=== PATIENT | female | born 1955 | race Caucasian/White ===

== ENCOUNTER 2017-11-23 15:15 | Emergency (ER) | payer SELFPAY ==
[2017-03-16 08:30] VITALS: BMI 29.2
[2017-11-23 15:16] VITALS: BP 139/83; PULSE 82; RESP 20; TEMP 37.1; O2SAT 97; BMI 25.2
--- NOTE | 2017-11-23 15:33 | EKG12_ITS ---
Test Reason : REPEAT EKG Blood Pressure : / mmHG Vent. Rate : 080 BPM Atrial Rate : 080 BPM P-R Int : 156 ms QRS Dur : 084 ms QT Int : 436 ms P-R-T Axes : 040 015 019 degrees QTc Int : 502 ms Sinus rhythm with Premature atrial complexes Prolonged QT Abnormal ECG Confirmed by HENRY BARFIELD, DAYANA ([id number]), general expeditor ARON HASKINS ([id number]) on 11/25/2017 10:29:13 AM Referred By: RUBÉN Confirmed By:DAYANA FIGUEROA MD
--- NOTE | 2017-11-23 15:33 | RAD_ITS ---
STUDY: X-RAY CHEST REASON FOR EXAM: Female, 62 years old. CHEST PAIN TECHNIQUE: Single frontal view of the chest. COMPARISON: None. FINDINGS: Chronic appearing increased interstitial lung markings. There is no demonstrated pleural abnormality. Normal heart size. Normal mediastinum and jovan. Normal visualized pulmonary arteries. There is atherosclerotic calcification of the aortic arch with tortuosity. There are diffuse degenerative changes of the visualized thoracic spine. There is degenerative osteoarthritis of the bilateral shoulders. There is no demonstrated abnormality of the visualized soft tissue structures of the upper abdomen. RAD/Chest 1 View (Portable) IMPRESSION: There are no acute findings. Electronically Signed: Jorge Quintanilla MD at 16:17 EST , Service support ,
[2017-11-23] MEDS: Aspirin 81 MG TAB.CHEW 324 MG PO (15:44)
[2017-11-23] MEDS: Ondansetron 4 MG/2 ML Vial IV (15:45)
--- NOTE | 2017-11-23 15:53 | ED.VISSUMM ---
- ER Visit Summary Date of Service: 11/23/17 Chief Complaint: Chest pain History of Present Illness: The patient is a 62 F who reports that she has chest pain that began 110 while she was at rest. Is a continuous waxing and waning pain. She describes it as sharp with radiation to the left side of her neck. Pain is 10 out of 10 at worst 9 out of 10 currently. She reports that is worsened by exertion sometimes. She took nitroglycerin without relief. She reports she has been nauseated and vomited 3 times. She has been diaphoretic and short of breath with this. He denies any chest pain or change in dyspnea exertion in the past month. Physical Examination: Vitals: Stable. Afebrile. General: Well-nourished and well-developed. Head: Normocephalic atraumatic. Neck: Supple, no lymphadenopathy. No JVD. Nontender. Cardiovascular: Regular rate and rhythm. No murmurs. Respiratory: No respiratory distress. Clear to auscultation bilaterally. Abdominal: Soft, nontender, nondistended, normal bowel sounds. No guarding, rebound, or peritoneal signs. Back: Nontender. Extremities: Nontender, no edema. Skin: Normal color, no rash. Neurologic: Alert and oriented ?3. Cranial nerves II through XII are intact. Normal strength and sensation. Psych: Normal affect. Test Results: EKG is sinus at 87 with no acute changes. Her QTC is 490. This is unchanged from last month. Repeat EKG is unchanged. Repeat troponin is negative. Initial troponin is negative. CBC is marked for a globin of 15.1. Chem-7 is marked for sodium 135. However, this is normal 1 corrected for her sugar of 394. Patient's blood work was reviewed and her sugar has been anywhere from 57-723 in the past year. It is typically in the 200s. Chest x-ray shows chronic changes. Emergency Department Course and Treatment: Patient was treated with aspirin, morphine, and Zofran. She is resting comfortably. I reviewed the patient's chart. It actually show she had a heart catheterization in September 2017. Showed a widely patent LAD stent and nonobstructive ostial/diagonal disease. I discussion the patient about her elevated glucose and she reports that she did not take her last dose of insulin because she did not feel well. I had a prolonged discussion with her about treating her diabetes regardless of illness. Treatment Plan: Patient was discussed with Dr. Hernandez. She will be discharged with instructions to take her insulin as previously directed. Follow-up with her primary care physician in 1 to days if not improving. Return to the emergency department for any worsening symptoms. Disposition: To home in improved and stable condition. Impression: 1. Atypical chest pain. 2. DANDY score 3. This note was generated with [employer] dictation software. It may contain incorrect words, spelling, and punctuation that were not noted in review of the chart prior to signing ED Disposition - Plan for ED Patient: Disposition: Home or Assisted Living Chief Complaint: Chest Pain Instructions: ED Chest Pain Atypical Unkn Cause Referrals: Nadira Sifuentes, SYNTHETIC CHEMIST-C [Primary Care Provider] - 1-2 Days if not improving
[2017-11-23 15:56] LABS: Absolute Lymphocyte Count 2.82 X10^3/ul (0.83-4.51); Absolute Neutrophil Count 4.3 X10^3/uL (2.0-7.7); Basophil# 0.03 X10^3/uL; Basophil% 0.4 % (0-1); Eosinophil# 0.13 X10^3/uL; Eosinophils% 1.7 % (0-5); Hematocrit 43.3 % (37-47); Hemoglobin 15.1 g/dl (12.0-15.0); Lymphocyte # 2.82 X10^3/ul (4.0); Lymphocyte % 36.1 % (19-41); Mean Corp Hgb Conc 34.9 g/gl (32-36); Mean Corpuscular Hgb 31.5 pg (27.0-32.0); Mean Corpuscular Volume 90.4 fL (81-99); Mean Platelet Vol. 11.6 fl (6.2-12.0); Monocyte# 0.52 X10^3/uL; Monocyte% 6.7 % (0-10); Neutrophil # 4.28 X10^3/uL (2.7-7.7); Neutrophil % 54.7 % (47-70); Platelet Count 223 K/mm3 (150-450); RBC Distribution Width CV 12.6 % (11.6-14.6); RBC Distribution Width SD 41.3 fl (35.1-43.9); Red Blood Count 4.79 M/mm3 (4.2-5.4); White Blood Count 7.8 K/mm3 (4.4-11.0)
[2017-11-23 15:57] LABS: POSITIVE COUNT NO; POSITIVE DIFFERENTIAL NO; POSITIVE MORPHOLOGY NO
--- NOTE | 2017-11-23 15:57 | ED.DCSUM_ITS ---
- ER Visit Summary Date of Service: 11/23/17 Chief Complaint: Chest pain History of Present Illness: The patient is a 62 F who reports that she has chest pain that began 110 while she was at rest. Is a continuous waxing and waning pain. She describes it as sharp with radiation to the left side of her neck. Pain is 10 out of 10 at worst 9 out of 10 currently. She reports that is worsened by exertion sometimes. She took nitroglycerin without relief. She reports she has been nauseated and vomited 3 times. She has been diaphoretic and short of breath with this. He denies any chest pain or change in dyspnea exertion in the past month. Physical Examination: Vitals: Stable. Afebrile. General: Well-nourished and well-developed. Head: Normocephalic atraumatic. Neck: Supple, no lymphadenopathy. No JVD. Nontender. Cardiovascular: Regular rate and rhythm. No murmurs. Respiratory: No respiratory distress. Clear to auscultation bilaterally. Abdominal: Soft, nontender, nondistended, normal bowel sounds. No guarding, rebound, or peritoneal signs. Back: Nontender. Extremities: Nontender, no edema. Skin: Normal color, no rash. Neurologic: Alert and oriented ?3. Cranial nerves II through XII are intact. Normal strength and sensation. Psych: Normal affect. Test Results: EKG is sinus at 87 with no acute changes. Her QTC is 490. This is unchanged from last month. Repeat EKG is unchanged. Repeat troponin is negative. Initial troponin is negative. CBC is marked for a globin of 15.1. Chem-7 is marked for sodium 135. However, this is normal 1 corrected for her sugar of 394. Patient's blood work was reviewed and her sugar has been anywhere from 57-723 in the past year. It is typically in the 200s. Chest x- ray shows chronic changes. Emergency Department Course and Treatment: Patient was treated with aspirin, morphine, and Zofran. She is resting comfortably. I reviewed the patient's chart. It actually show she had a heart catheterization in September 2017. Showed a widely patent LAD stent and nonobstructive ostial/diagonal disease. I discussion the patient about her elevated glucose and she reports that she did not take her last dose of insulin because she did not feel well. I had a prolonged discussion with her about treating her diabetes regardless of illness. Treatment Plan: Patient was discussed with Dr. Hernandez. She will be discharged with instructions to take her insulin as previously directed. Follow-up with her primary care physician in 1 to days if not improving. Return to the emergency department for any worsening symptoms. Disposition: To home in improved and stable condition. Impression: 1. Atypical chest pain. 2. DANDY score 3. This note was generated with [employer] dictation software. It may contain incorrect words, spelling, and punctuation that were not noted in review of the chart prior to signing ED Disposition - Plan for ED Patient: Disposition: Home or Assisted Living Chief Complaint: Chest Pain Instructions: ED Chest Pain Atypical Unkn Cause Referrals: Nadira Sifuentes, HEEL STIFFENER-C [Primary Care Provider] - 1-2 Days if not improving
[2017-11-23 16:00] VITALS: BP 140/69; PULSE 76; RESP 19; O2SAT 95
[2017-11-23 16:07] LABS: Anion Gap 12 (5-15); BUN 13 mg/dL (7-18); BUN/Creat Ratio 13.7 RATIO (10-20); Calcium,Total 8.9 mg/dL (8.5-10.1); Chloride 100 mmol/L (98-107); Creatinine, Serum 0.95 mg/dL (0.55-1.02); EST Glomerular Filtration Rate 63 mL/min (>60); Est Glom Filt Rate - Afr Amer 76 mL/min (>60); Estimated Creatinine Clearance 49.49 ml/min; Glucose 394 mg/dL (74-106); Potassium 3.5 mmol/L (3.5-5.1); Sodium Level 135 mmol/L (136-145)
[2017-11-23 16:30] VITALS: BP 136/93; PULSE 78; RESP 17; O2SAT 96
[2017-11-23] MEDS: 0.9% Normal Saline 1,000 ML 150 ML IV (16:44)
[2017-11-23 17:03] VITALS: BP 127/67; PULSE 77; RESP 17; O2SAT 94
--- NOTE | 2017-11-23 17:05 | EKG12_ITS ---
Test Reason : CP Blood Pressure : / mmHG Vent. Rate : 087 BPM Atrial Rate : 087 BPM P-R Int : 130 ms QRS Dur : 078 ms QT Int : 408 ms P-R-T Axes : 046 025 041 degrees QTc Int : 490 ms Normal sinus rhythm Prolonged QT Abnormal ECG Confirmed by HENRY BARFIELD, DAYANA ([id number]), editor greeting card ARON HASKINS ([id number]) on 11/25/2017 10:29:27 AM Referred By: RUBÉN Confirmed By:DAYANA FIGUEROA MD
[2017-11-23 18:30] VITALS: BP 131/72; PULSE 79; RESP 21; O2SAT 97
[2017-11-23 19:25] VITALS: BP 143/49; PULSE 77; RESP 21; O2SAT 96
--- NOTE | 2017-11-23 19:26 | ED.RN ---
PT GIVEN WRITTEN AND VERBAL DISCHARGE INSTRUCTIONS. PT VERBALIZES UNDERSTANDING. IV D/C AND COVERED WITH 2X2 GAUZE DRESSING. MINIMAL BLEEDING NOTED. WHEELED TO FAMILY VEHICLE IN WHEELCHAIR. HOME WITH DAUGHTER.
== END 2017-11-23 19:27 | disposition home or self-care (01) ==
PROVIDERS: Emergency Provider Emergency Medicine; Family Provider Nurse Practitioner Family; PCP Nurse Practitioner Family
DX: R07.89 Other chest pain (principal); R06.00 Dyspnea, unspecified; R11.2 Nausea with vomiting, unspecified; R19.7 Diarrhea, unspecified; R51 Headache; R61 Generalized hyperhidrosis; I25.10 Atherosclerotic heart disease of native coronary artery without angina pectoris; J44.9 Chronic obstructive pulmonary disease, unspecified; E11.9 Type 2 diabetes mellitus without complications; I10 Essential (primary) hypertension; E78.00 Pure hypercholesterolemia, unspecified; I25.2 Old myocardial infarction; Z95.5 Presence of coronary angioplasty implant and graft; Z87.891 Personal history of nicotine dependence; Z79.82 Long term (current) use of aspirin; Z79.02 Long term (current) use of antithrombotics/antiplatelets; Z79.4 Long term (current) use of insulin; Z79.899 Other long term (current) drug therapy
CPT/HCPCS: 71045; 80048; 84484; 85025; 93005; 96361; 96374; 96375; 96376; 99285; J7030; A4216; J2405

== ENCOUNTER 2017-11-23 23:42 | Emergency (ER) | payer SELFPAY ==
[2017-03-16 08:30] VITALS: BMI 29.2
[2017-11-23 23:42] VITALS: BP 164/76; PULSE 81; RESP 18; TEMP 36.5; O2SAT 99; BMI 27.3
--- NOTE | 2017-11-24 00:12 | CT_ITS ---
STUDY: CT ABDOMEN AND PELVIS WITH CONTRAST REASON FOR EXAM: Female, 62 years old. Nausea, vomiting, dizziness, and weakness. History of emphysema, COPD, hypertension, diabetes, uterine cancer, cholecystectomy, and hysterectomy. RADIATION DOSAGE (If Supplied By Facility): CTDIvol = ( 16.35 ) mGy, DLP = ( 620.13 ) mGycm TECHNIQUE: Transaxial images were obtained from the dome of the diaphragm to the symphysis pubis with oral contrast. 100ML ml of Isovue 300 contrast was administered. Sagittal and coronal images were reconstructed. Individualized dose optimization techniques were used for this CT. COMPARISON: 08/10/2016. 04/03/2014. FINDINGS: The visualized lung bases are unremarkable. The visualized portions of the heart are within normal limits. There is a calcified granuloma in the right lobe of the liver. There is mild diffuse fatty infiltration of the liver. There is nonvisualization of the gallbladder on the current exam and both previous exams, consistent with a previous cholecystectomy.. Normal spleen. Normal pancreas. Normal bilateral adrenal glands. Normal right kidney. Normal left kidney. There is a small hiatal hernia. Normal small intestine. Normal colon. The appendix is visualized on axial images 68-73 and it appears normal.. There is diffuse atherosclerotic calcification of the abdominal aorta, without a demonstrated aneurysm. Normal inferior vena cava. Normal retroperitoneum. Normal urinary bladder. There is absence of the uterus consistent with a prior hysterectomy. Normal abdominal wall. There are mild degenerative changes of the visualized lumbar spine. CT/Abdomen/Pelvis WITH Contrast IMPRESSION: Fatty liver. Small hiatal hernia. Atherosclerosis. Previous cholecystectomy and hysterectomy. No evidence for acute pathology. Electronically Signed: Oswaldo Sanders MD at 3:40 EST , Service support ,
[2017-11-24] MEDS: Ondansetron 4 MG/2 ML Vial IV (00:29)
[2017-11-24] MEDS: 0.9% Normal Saline 1,000 ML 1000 ML IV (00:29)
[2017-11-24 00:34] LABS: Absolute Lymphocyte Count 2.06 X10^3/ul (0.83-4.51); Absolute Neutrophil Count 5.3 X10^3/uL (2.0-7.7); Basophil# 0.05 X10^3/uL; Basophil% 0.6 % (0-1); Eosinophil# 0.09 X10^3/uL; Eosinophils% 1.1 % (0-5); Hematocrit 38.4 % (37-47); Hemoglobin 13.5 g/dl (12.0-15.0); Lymphocyte # 2.06 X10^3/ul (4.0); Lymphocyte % 25.7 % (19-41); Mean Corp Hgb Conc 35.2 g/gl (32-36); Mean Corpuscular Hgb 31.5 pg (27.0-32.0); Mean Corpuscular Volume 89.7 fL (81-99); Mean Platelet Vol. 11.6 fl (6.2-12.0); Monocyte# 0.52 X10^3/uL; Monocyte% 6.5 % (0-10); Neutrophil # 5.28 X10^3/uL (2.7-7.7); Neutrophil % 65.9 % (47-70); POSITIVE COUNT NO; POSITIVE DIFFERENTIAL NO; POSITIVE MORPHOLOGY NO; Platelet Count 196 K/mm3 (150-450); RBC Distribution Width CV 12.4 % (11.6-14.6); RBC Distribution Width SD 39.8 fl (35.1-43.9); Red Blood Count 4.28 M/mm3 (4.2-5.4)
[2017-11-24 00:36] LABS: Bacteria 0 SEEN /hpf (None Seen); Mucous, Urine 0 SEEN /hpf (<or=2+); Red Blood Cells-Urine 0 SEEN /hpf (0-5); Squamous Epithelial Cells - UA 0 SEEN /hpf (5-10); White Blood Cells 0 SEEN /hpf (0-5)
[2017-11-24 00:38] LABS: Color, Urine Straw (Yellow); Glucose, Dipstick 1000 mg/dl (Normal); Ketone-Dipstick 15 mg/dl (Negative); Leukocyte Esterase-Dipstick Negative /ul (Negative); Nitrite-Dipstick Negative (Negative); Occult Blood-Urine Negative /ul (Negative); Protein-Dipstick Negative (Negative); Urine Bilirubin Dipstick Negative (Negative); Urine Clarity Clear (Clear); Urine Urobilinogen Normal (Normal); Urine pH 6.5 (5.0 - 8.0)
[2017-11-24 00:54] LABS: ALB/GLOB Ratio 1.2 RATIO (0.9-2.4); AST(SGOT) 110 U/L (15-37); Alanine Aminotransfer ALT/SGPT 73 U/L (13-56); Albumin, Serum 3.6 g/dL (3.2-5.0); Alkaline Phosphatase 90 U/L (45-117); Anion Gap 11 (5-15); BUN 10 mg/dL (7-18); Calcium,Total 8.5 mg/dL (8.5-10.1); Chloride 103 mmol/L (98-107); Creatinine, Serum 0.77 mg/dL (0.55-1.02); EST Glomerular Filtration Rate 80 mL/min (>60); Est Glom Filt Rate - Afr Amer 97 mL/min (>60); Estimated Creatinine Clearance 61.06 ml/min; Globulin 3.1 g/dL (2.2-4.2); Glucose 478 mg/dL (74-106); Lipase 163 U/L (73-393); Potassium 4.1 mmol/L (3.5-5.1); Protein, Total 6.7 g/dL (6.4-8.2); Sodium Level 137 mmol/L (136-145)
[2017-11-24 02:06] LABS: Bedside Glucose 367 mg/dL (70-110)
[2017-11-24 02:56] VITALS: BP 126/60; PULSE 66; RESP 16; O2SAT 98
[2017-11-24 03:01] LABS: Bedside Glucose 264 mg/dL (70-110)
--- NOTE | 2017-11-24 04:00 | ED.DCSUM_ITS ---
- ER Visit Summary Date of Service: 11/24/17 Chief Complaint: Nausea vomiting and abdominal pain History of Present Illness: The patient is a 62 F who presents with nausea and vomiting. She was actually seen in the emergency department earlier today for chest pain and had negative enzymes and was discharged home. She states she has had no further chest pain. However shortly after arrival home she developed nausea and vomiting. She had multiple episodes of nonbloody nonbilious emesis and diffuse abdominal pain. No diarrhea or constipation. No fevers. Physical Examination: Afebrile vitals are unremarkable Moist mucous membranes Heart regular rate and rhythm Lungs are clear Abdomen soft with some mild diffuse tenderness no guarding no rebound she does not appear to have surgical abdomen Alert Test Results: Laboratory studies are notable for minimal elevation of ALT and AST at 73 and 110 respectively as well as hyperglycemia with glucose 478. Urine unremarkable except glucose. Repeat BGT down to 264. CT of the abdomen and pelvis with oral and IV contrast shows no acute process. Emergency Department Course and Treatment: Patient was symptomatically treated with IV fluids morphine and Zofran. She was given subcutaneous insulin. She complained of ongoing nausea and was given IV Phenergan with significant improvement. She has had no further vomiting. CT of the abdomen was unremarkable. On reevaluation patient is resting comfortably with no complaints. She states she feels much better. Her repeat abdominal exam is benign with no tenderness. Given benign repeat examination and negative CT imaging with essentially unremarkable labs I do believe she can follow-up as an outpatient. She was advised to call her physician today to schedule follow-up appointment. She understands return for new or worsening symptoms and was instructed on specific signs and symptoms to monitor for. Treatment Plan: [] Disposition: Discharge Impression: Vomiting Abdominal pain This note was generated with [employer] dictation software. It may contain incorrect words, spelling, and punctuation that were not noted in review of the chart prior to signing ED Disposition - Plan for ED Patient: Chief Complaint: Nausea/Vomiting Referrals: Nadira Sifuentes NP-C [Primary Care Provider] -
--- NOTE | 2017-11-24 04:01 | DCINST.ED_ITS ---
ED Disposition - Plan for ED Patient: Chief Complaint: Nausea/Vomiting Instructions: ED Nausea Vomiting, ED Abdominal Pain Unkn Cause Referrals: Nadira Sifuentes, LICENSED LOAN OFFICER ASSISTANT-C [Primary Care Provider] -
[2017-11-24 04:09] VITALS: PULSE 70; RESP 16; O2SAT 99
== END 2017-11-24 04:10 | disposition home or self-care (01) ==
LOC: ED 11-24 00:22
PROVIDERS: Emergency Provider Emergency Medicine; Family Provider Nurse Practitioner Family; PCP Nurse Practitioner Family
DX: R11.2 Nausea with vomiting, unspecified (principal); R10.9 Unspecified abdominal pain; E11.65 Type 2 diabetes mellitus with hyperglycemia; K76.0 Fatty (change of) liver, not elsewhere classified; K44.9 Diaphragmatic hernia without obstruction or gangrene; I25.10 Atherosclerotic heart disease of native coronary artery without angina pectoris; I10 Essential (primary) hypertension; E78.00 Pure hypercholesterolemia, unspecified; Z90.49 Acquired absence of other specified parts of digestive tract; Z95.5 Presence of coronary angioplasty implant and graft; Z79.82 Long term (current) use of aspirin; Z79.02 Long term (current) use of antithrombotics/antiplatelets; Z79.4 Long term (current) use of insulin; Z79.899 Other long term (current) drug therapy; Z72.0 Tobacco use
CPT/HCPCS: 74177; 80053; 81001; 82962; 83690; 85025; 96361; 96372; 96374; 96375; 99284; J7030; Q9967; A4216; J2405

== ENCOUNTER 2017-11-28 12:52 | Observation (INO) | payer SELFPAY ==
[2017-03-16 08:30] VITALS: BMI 29.2
[2017-11-28] VITALS (11 sets, daily range): BP systolic 115–156; BP diastolic 57–88; PULSE 60–89; RESP 12–18; TEMP 36.5–36.9; O2SAT 95–98; BMI 27.3; BMI 27.4; BMI 27.1
--- NOTE | 2017-11-28 12:59 | EKG12_ITS ---
Test Reason : CP Blood Pressure : / mmHG Vent. Rate : 085 BPM Atrial Rate : 085 BPM P-R Int : 128 ms QRS Dur : 070 ms QT Int : 402 ms P-R-T Axes : 042 022 026 degrees QTc Int : 478 ms Normal sinus rhythm Normal ECG Confirmed by HENRY BARFIELD, DAYANA ([id number]), purchasing expeditor ARON HASKINS ([id number]) on 11/30/2017 1:27:09 PM Referred By: STANLEY/ANTHONY Confirmed By:DAYANA FIGUEROA MD
--- NOTE | 2017-11-28 12:59 | RAD_ITS ---
STUDY: X-RAY CHEST REASON FOR EXAM: Female, 62 years old. Chest pain. Anxiety. TECHNIQUE: Single AP portable view of the chest. COMPARISON: Comparison is made with prior examination dated November 23, 2017. FINDINGS: EKG electrodes are seen. The lungs are clear and expanded. There is no demonstrated pleural abnormality. There is evidence of coronary artery stenting. Normal mediastinum and jovan. Normal visualized pulmonary arteries. There is atherosclerotic calcification of the aortic arch with tortuosity. There are degenerative changes of the visualized thoracic spine. Normal visualized ribs, clavicles, and shoulders. There is no demonstrated abnormality of the visualized soft tissue structures of the upper abdomen. RAD/Chest 1 View (Portable) IMPRESSION: No acute abnormality is seen. Electronically Signed: Uriah Weathers MD at 14:06 EST Tel [phone], Service support ,
[2017-11-28 13:31] LABS: Hematocrit 40.3 % (37-47); Hemoglobin 14.2 g/dl (12.0-15.0); Mean Corp Hgb Conc 35.2 g/gl (32-36); Mean Corpuscular Hgb 31.5 pg (27.0-32.0); Mean Corpuscular Volume 89.4 fL (81-99); RBC Distribution Width CV 12.5 % (11.6-14.6); Red Blood Count 4.51 M/mm3 (4.2-5.4); White Blood Count 7.7 K/mm3 (4.4-11.0)
[2017-11-28 13:32] LABS: Absolute Lymphocyte Count 2.24 X10^3/ul (0.83-4.51); Absolute Neutrophil Count 4.5 X10^3/uL (2.0-7.7); Basophil# 0.15 X10^3/uL; Basophil% 1.9 % (0-1); Eosinophil# 0.25 X10^3/uL; Eosinophils% 3.2 % (0-5); Lymphocyte # 2.24 X10^3/ul (4.0); Lymphocyte % 28.9 % (19-41); Mean Platelet Vol. 11.4 fl (6.2-12.0); Monocyte# 0.62 X10^3/uL; Neutrophil # 4.45 X10^3/uL (2.7-7.7); Neutrophil % 57.6 % (47-70); POSITIVE COUNT NO; POSITIVE DIFFERENTIAL NO; POSITIVE MORPHOLOGY NO; Platelet Count 208 K/mm3 (150-450)
[2017-11-28 13:51] LABS: Anion Gap 9 (5-15); BUN 14 mg/dL (7-18); Calcium,Total 8.9 mg/dL (8.5-10.1); Chloride 97 mmol/L (98-107); Creatinine, Serum 1.08 mg/dL (0.55-1.02); EST Glomerular Filtration Rate 54 mL/min (>60); Est Glom Filt Rate - Afr Amer 66 mL/min (>60); Estimated Creatinine Clearance 43.53 ml/min; Glucose 472 mg/dL (74-106); Potassium 3.7 mmol/L (3.5-5.1); Sodium Level 133 mmol/L (136-145)
[2017-11-28] MEDS: Aspirin 325 MG Tablet PO (14:03)
[2017-11-28] MEDS: Ondansetron 4 MG/2 ML Vial IV (14:04)
--- NOTE | 2017-11-28 14:57 | ED.VISSUMM ---
- ER Visit Summary Date of Service: 11/28/17 Chief Complaint: Chest pain History of Present Illness: The patient is a 62 F presenting with chest pain which began around 11:30 AM. She states that she was sweaty. She denies syncope. Pain is in her mid chest radiating to the left side of her neck. She has a history of coronary artery disease, diabetes, hypertension, hypercholesteremia, COPD. She has 4 stents. States this feels similar to her previous heart attacks. She also has a family history of heart disease. She is a previous smoker. Physical Examination: Vitals are stable. Patient is afebrile. Alert no acute distress. HEENT exam is unremarkable. Neck is supple. Lungs are clear and equal bilaterally. Heart is regular rate and rhythm. Abdomen is soft nontender nondistended. Extremities are unremarkable. Skin is warm and dry. No focal neurologic deficit. Remainder of exam is unremarkable. Emergency Department Course and Treatment: She was given aspirin on arrival. EKG is normal sinus rhythm rate of 85. Chest x-ray shows no acute abnormality. CBC, chemistries unremarkable other than creatinine 1.08, glucose 472. Troponin is negative. She is given insulin subcutaneous. Her pain has improved. Discussed with the hospitalist for admission. Disposition: Observation Impression: Chest pain, hyperglycemia This note was generated with [employer] dictation software. It may contain incorrect words, spelling, and punctuation that were not noted in review of the chart prior to signing ED Disposition - Plan for ED Patient: Chief Complaint: Chest Pain Referrals: Nadira Sifuentes NP-C [Primary Care Provider] -
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
[2017-11-28] MEDS: Acetaminophen 325 MG Tablet 650 MG PO ×2 (16:42→22:45)
[2017-11-28 16:56] LABS: Bedside Glucose 193 mg/dL (70-110)
[2017-11-28] MEDS: Glucerna Shake 120 ML LIQUID PO ×2 (17:34→22:39)
[2017-11-28] MEDS: LORazepam 0.5 MG Tablet PO (18:13)
[2017-11-28 19:03] LABS: Magnesium 1.8 mg/dL (1.6-2.6)
[2017-11-28 19:29] LABS: Hemoglobin A1c 13.8 % (4.2-6.3)
[2017-11-28] MEDS: Metoprolol Tartrate 25 MG Tablet PO (22:32)
[2017-11-28] MEDS: traZODone 50 MG Tablet PO (22:34)
[2017-11-28] MEDS: Atorvastatin Calcium 20 MG Tablet PO (22:34)
[2017-11-29 03:55] VITALS: BP 103/52; PULSE 70; RESP 16; TEMP 36.9; O2SAT 99
[2017-11-29 04:20] LABS: Absolute Lymphocyte Count 3.05 X10^3/ul (0.83-4.51); Absolute Neutrophil Count 3.2 X10^3/uL (2.0-7.7); Basophil# 0.03 X10^3/uL; Basophil% 0.4 % (0-1); Eosinophil# 0.22 X10^3/uL; Hemoglobin 13.1 g/dl (12.0-15.0); Lymphocyte # 3.05 X10^3/ul (4.0); Lymphocyte % 42.2 % (19-41); Mean Corp Hgb Conc 34.5 g/gl (32-36); Mean Corpuscular Hgb 31.1 pg (27.0-32.0); Mean Corpuscular Volume 90.3 fL (81-99); Mean Platelet Vol. 11.7 fl (6.2-12.0); Monocyte# 0.69 X10^3/uL; Monocyte% 9.5 % (0-10); Neutrophil # 3.21 X10^3/uL (2.7-7.7); Neutrophil % 44.5 % (47-70); Platelet Count 210 K/mm3 (150-450); RBC Distribution Width CV 12.4 % (11.6-14.6); RBC Distribution Width SD 40.1 fl (35.1-43.9); Red Blood Count 4.21 M/mm3 (4.2-5.4); White Blood Count 7.2 K/mm3 (4.4-11.0)
[2017-11-29 04:24] LABS: POSITIVE COUNT NO; POSITIVE DIFFERENTIAL NO; POSITIVE MORPHOLOGY NO
[2017-11-29 04:49] VITALS: PULSE 62
[2017-11-29 04:55] LABS: ALB/GLOB Ratio 1.1 RATIO (0.9-2.4); AST(SGOT) 21 U/L (15-37); Alanine Aminotransfer ALT/SGPT 32 U/L (13-56); Albumin, Serum 3.4 g/dL (3.2-5.0); Alkaline Phosphatase 64 U/L (45-117); Anion Gap 8 (5-15); BUN 18 mg/dL (7-18); Calcium,Total 8.7 mg/dL (8.5-10.1); Chloride 102 mmol/L (98-107); Cholesterol 177 mg/dL (200); Creatinine, Serum 0.75 mg/dL (0.55-1.02); EST Glomerular Filtration Rate 83 mL/min (>60); Est Glom Filt Rate - Afr Amer 100 mL/min (>60); Estimated Creatinine Clearance 62.69 ml/min; Glucose 204 mg/dL (74-106); High Density Lipoprotein 43 mg/dL; Potassium 3.6 mmol/L (3.5-5.1); Protein, Total 6.4 g/dL (6.4-8.2); Sodium Level 137 mmol/L (136-145); Triglycerides 264 mg/dL; Very Low Density Lipoprotein 53 mg/dL (5-40)
[2017-11-29 06:56] LABS: Bedside Glucose 189 mg/dL (70-110)
[2017-11-29 06:59] VITALS: PULSE 65
[2017-11-29 08:42] VITALS: BP 122/71; PULSE 73; RESP 16; TEMP 36.7; O2SAT 96
[2017-11-29 08:46] VITALS: PULSE 76
[2017-11-29] MEDS: Metoprolol Tartrate 25 MG Tablet PO (08:46)
[2017-11-29] MEDS: Lisinopril 5 MG Tablet PO (08:46)
[2017-11-29] MEDS: Clopidogrel Bisulfate 75 MG Tablet PO (08:46)
[2017-11-29] MEDS: Famotidine 20 MG Tablet PO (08:47)
[2017-11-29] MEDS: Dicyclomine 10 MG Capsule PO (08:47)
[2017-11-29] MEDS: Aspirin E.C. 81 MG Tablet PO (08:47)
[2017-11-29] MEDS: Furosemide 20 MG Tablet 40 MG PO (08:47)
[2017-11-29] MEDS: Isosorbide Mononitrate 30 MG Tablet PO (08:47)
[2017-11-29] MEDS: Enoxaparin 40 MG/0.4 ML Syringe SC (08:48)
[2017-11-29] MEDS: Magnesium Hydroxide 30 ML UDC PO (08:55)
--- NOTE | 2017-11-29 10:16 | DCINST_ITS ---
You will use the following diet at home:: Calorie/Carbohydrate Controlled ( specify 1200, 1400, etc), Cardiac Discharge Activity: Return to Normal Activity Call your doctor if you observe: Shortness of breath, Dizziness, Fainting spells , Chest pain, Increased palpitations (irregular heartbeat) Allergies/Adverse Reactions: Allergies Penicillins Allergy (Verified 11/28/17 12:54) Hives hydrocodone bitartrate [From Vicodin] Adverse Reaction (Verified 11/28/17 12:54) Vomiting ibuprofen Adverse Reaction (Verified 11/28/17 12:54) Vomiting Medications to take at Discharge Lisinopril [Zestril] 5 mg PO DAILY 08/17/15 Aspirin [Adult Low Dose Aspirin EC] 81 mg PO DAILY 02/04/16 Furosemide [Lasix] 40 mg PO DAILY 02/04/16 Dicyclomine HCl [Bentyl] 10 mg PO DAILY 01/24/17 Famotidine [Pepcid] 20 mg PO DAILY 01/24/17 Simvastatin [Zocor] 40 mg PO QHS 01/24/17 Clopidogrel Bisulfate [Plavix] 75 mg PO DAILY 06/23/17 Metoprolol Tartrate [Lopressor (beta elder)] 25 mg PO BID 06/23/17 Trazodone HCl 50 mg PO QHS 06/23/17 Nitroglycerin [Nitrostat] 0.4 mg SUBLINGUAL Q5M PRN 09/28/17 Isosorbide Mononitrate [Imdur] 30 mg PO DAILY 11/23/17 Insulin Aspart [Novolog Flexpen] 10 units SC TIDCM #0 11/29/17 Insulin Detemir [Levemir FlexPen] 40 units SC BID #0 11/29/17 Sertraline HCl [Zoloft] 50 mg PO DAILY #30 tab 11/29/17 The following prescriptions were given: Sertraline HCl [Zoloft] 50 mg PO DAILY #30 tab Primary Care Physician: Nadira Sifuentes NP-C [Primary Care Provider] - Please follow up with your Primary Care Physician in: 1 Week Please Follow Up With: Siena Hughes NP-C When: 1-2 Weeks Please Follow Up With: Sam Quesada MD When: As scheduled Proposed Discharge Date: 11/29/17
[2017-11-29] MEDS: Ondansetron 4 MG/2 ML Vial IV (10:30)
--- NOTE | 2017-11-29 10:30 | DS.PCM_ITS ---
<Nguyen Price - Last Filed: 11/29/17 10:57> Discharge Date and Diagnosis Date of Admission: 11/28/17 Date of Discharge: 11/29/17 - Primary Discharge Diagnosis 1. Chest pain- suspected secondary to panic attack/anxiety. ACS ruled out. 2. Uncontrolled type 2 diabetes mellitus - Secondary Discharge Diagnosis Chronic Problems Uncontrolled type 2 diabetes mellitus (Chronic) Benign essential hypertension (Chronic) Type 2 diabetes mellitus (Chronic) Hyperlipidemia (Chronic) Coronary artery disease (Chronic) ROMEL LAD 01/21 COPD (chronic obstructive pulmonary disease) (Chronic) cont smoking Tobacco abuse (Chronic) Hospital Course and Treatment Imaging Results: Diagnostic Data Chest X-Ray 11/28/17 12:59 IMPRESSION: No acute abnormality is seen. Electronically Signed: Uriah Weathers MD at 14:06 EST Tel [phone], Service support , Operations: None Procedures: None Summary of Care Provided: The patient is a 62 year old F admitted 11/28/2017 due to chest pain. EKG sinus rhythm without evidence of ischemia. Chest x-ray unremarkable. Troponin negative ?4. Patient had recent cardiac catheterization in September 2017 which showed widely patent LAD stents, nonobstructive ostial diagonal disease, results were similar from previous PCI in March 2017. Patient follows with Dr. Quesada as outpatient. Blood glucose 472 on admission. Patient states her glucose has been well controlled at home. Hemoglobin A1c 13.8%. Patient's home insulin regimen was continued and patient's glucose was well-controlled during admission. Suspect patient may be noncompliant with home insulin regimen. Her NovoLog and Levemir were slightly increased at discharge. Patient was recommended to follow-up with endocrinology at previous discharges. Recommend follow-up with [facility] at discharge for further diabetic education and monitoring. ACS was ruled out. Patient has had recent stressful situation in which her daughter attempted suicide. Chest pain began during this episode. Suspect chest pain was related to panic attack/anxiety. Patient states she has ongoing depression and anxiety and Vistaril is not effective for her. Will discontinue this going forward and begin sertraline 50 mg daily which can be titrated as necessary by primary care physician. Her other past medical history includes type 2 diabetes mellitus, hypertension, hyperlipidemia, coronary artery disease, COPD and history of tobacco use. General: Alert, Oriented x3, Cooperative, No apparent distress HEENT: Atraumatic, PERRLA, EOMI, Normocephalic Neck: Supple, No JVD, Negative Carotid Bruits Lungs: Clear to auscultation, Diminished Cardiovascular: Regular rate, Regular Rhythm, Normal S1, Normal S2, No murmurs Abdomen: Bowel Sounds Present, Soft, Non Tender, Non-Distended Extremities: No clubbing, No cyanosis, No edema, Capillary Refill Less than 3 Seconds Skin: No rashes, No breakdown Musculoskeletal: No Tenderness to Palpation of Joints or Extremities Neurological: Cranial nerves II-XII grossly intact, Neuro grossly intact Psych/Mental Status: Normal Affect, Appropriate Patient seen and examined prior to discharge. Physical assessment as noted above. Patient denies further chest pain. Patient is stable for discharge home with recommendations as noted above. Recommend further follow-up with primary care physician, endocrinology and cardiology. This patient was seen by [facility] Barnes under the supervision of Dr. Loya. Discharge Diet: Low fat/ Low Cholesterol, Carb Control Diet Discharge Activity: Return to Normal Activity Call your doctor if you observe: Shortness of breath, Dizziness, Fainting spells , Chest pain, Increased palpitations (irregular heartbeat) Home Medications: Medications to take at Discharge Lisinopril [Zestril] 5 mg PO DAILY 08/17/15 Aspirin [Adult Low Dose Aspirin EC] 81 mg PO DAILY 02/04/16 Furosemide [Lasix] 40 mg PO DAILY 02/04/16 Dicyclomine HCl [Bentyl] 10 mg PO DAILY 01/24/17 Famotidine [Pepcid] 20 mg PO DAILY 01/24/17 Simvastatin [Zocor] 40 mg PO QHS 01/24/17 Clopidogrel Bisulfate [Plavix] 75 mg PO DAILY 06/23/17 Metoprolol Tartrate [Lopressor (beta elder)] 25 mg PO BID 06/23/17 Trazodone HCl 50 mg PO QHS 06/23/17 Nitroglycerin [Nitrostat] 0.4 mg SUBLINGUAL Q5M PRN 09/28/17 Isosorbide Mononitrate [Imdur] 30 mg PO DAILY 11/23/17 Insulin Aspart [Novolog Flexpen] 10 units SC TIDCM #0 11/29/17 Insulin Detemir [Levemir FlexPen] 40 units SC BID #0 11/29/17 Sertraline HCl [Zoloft] 50 mg PO DAILY #30 tab 11/29/17 Following Prescrptions Were Given to Patient: Sertraline HCl [Zoloft] 50 mg PO DAILY #30 tab Primary Care Physician: Nadira Sifuentes NP-C [Primary Care Provider] - Please follow up with your Primary Care Physician in: 1 Week Please Follow Up With: Siena Hugehs NP-C When: 1-2 Weeks Please Follow Up With: Sam Quesada MD When: As scheduled Disposition: Home Minutes spent on discharge:: 35 Patient Condition:: Stable Meaningful Use Info Meaningful Use Diagnoses (Choose all that apply): None applicable <Parker Loya - Last Filed: 11/29/17 17:31> Discharge Date and Diagnosis - Secondary Discharge Diagnosis Chronic Problems Uncontrolled type 2 diabetes mellitus (Chronic) Benign essential hypertension (Chronic) Type 2 diabetes mellitus (Chronic) Hyperlipidemia (Chronic) Coronary artery disease (Chronic) ROMEL LAD 01/21 COPD (chronic obstructive pulmonary disease) (Chronic) cont smoking Tobacco abuse (Chronic) Hospital Course and Treatment Operations: None Procedures: None Summary of Care Provided: Patient seen and examined in family. Agree with the above note by the nurse practitioner. The patient is a 62 year old F [place] with chest pain. Patient had a heart catheterization recently showed no acute process. Patient's troponins were negative. Is felt that this was related with the panic attack is patient's daughter who is at her own psychiatric had come home briefly before going to a psych unit herself. Reassurance is provided to the patient and shortly afterwards patient was having retching but no actual vomiting. Patient was discharged to home. [] Discharge Diet: Low fat/ Low Cholesterol, Carb Control Diet Discharge Activity: Return to Normal Activity Call your doctor if you observe: Shortness of breath, Dizziness, Fainting spells , Chest pain, Increased palpitations (irregular heartbeat) Disposition: Home Meaningful Use Info Meaningful Use Diagnoses (Choose all that apply): None applicable Code Visit OBSV E&M: 63118 Observation care discharge
[2017-11-29 10:51] LABS: Bedside Glucose 469 mg/dL (70-110)
[2017-11-29 11:03] VITALS: BP 99/59; PULSE 75; RESP 16; O2SAT 98
== END 2017-11-29 11:15 | disposition home or self-care (01) ==
LOC: ED 14:49 → PCU 15:24
PROVIDERS: Nurse Practitioner Family; Admitting Provider Internal Medicine; Emergency Provider Emergency Medicine; Family Provider Nurse Practitioner Family; PCP Nurse Practitioner Family
DX: R07.89 Other chest pain (principal); I25.10 Atherosclerotic heart disease of native coronary artery without angina pectoris; J44.9 Chronic obstructive pulmonary disease, unspecified; I25.2 Old myocardial infarction; I10 Essential (primary) hypertension; E11.65 Type 2 diabetes mellitus with hyperglycemia; E78.5 Hyperlipidemia, unspecified; K21.9 Gastro-esophageal reflux disease without esophagitis; Z82.49 Family history of ischemic heart disease and other diseases of the circulatory system; Z87.891 Personal history of nicotine dependence; Z95.5 Presence of coronary angioplasty implant and graft; Z79.899 Other long term (current) drug therapy; Z79.4 Long term (current) use of insulin; Z79.02 Long term (current) use of antithrombotics/antiplatelets; Z79.82 Long term (current) use of aspirin
CPT/HCPCS: 36415; 71045; 80048; 80053; 80061; 82962; 83036; 83735; 84484; 85025; 93005; 96372; 96374; 96375; 96376; 99218; 99285; A4216; G0378; J2405

== ENCOUNTER 2017-12-12 17:01 | Emergency (ER) | payer SELFPAY ==
[2017-03-16 08:30] VITALS: BMI 29.2
[2017-12-12 17:02] VITALS: BP 149/70; PULSE 91; RESP 18; TEMP 37.1; O2SAT 98; BMI 27.6
--- NOTE | 2017-12-12 17:05 | EKG12_ITS ---
Test Reason : Blood Pressure : / mmHG Vent. Rate : 081 BPM Atrial Rate : 081 BPM P-R Int : 152 ms QRS Dur : 084 ms QT Int : 410 ms P-R-T Axes : 053 039 045 degrees QTc Int : 476 ms Sinus rhythm with Premature atrial complexes Otherwise normal ECG Confirmed by ADRIAN BARFIELD, DAVID ([id number]), editor publications ARON HASKINS ([id number]) on 12/13/2017 2:31:21 PM Referred By: Confirmed By:DAVID CAMPBELL MD
--- NOTE | 2017-12-12 17:32 | RAD_ITS ---
XR Chest 1 View INDICATION: chest pain COMPARISON: None FINDINGS: Heart size and pulmonary vascularity are within normal limits. Vascular stent projects over the left cardiac border. The lungs are clear without evidence of airspace consolidation or pleural effusion. The osseous structures are grossly unremarkable. RAD/Chest 1 View (Portable) IMPRESSION: No radiographic evidence of acute intrathoracic disease. at 1757 Reported and signed by: Eli Silver MD Electronically Signed: Eli Silver MD at 16:55 EST Tel , Service support ,
[2017-12-12 17:33] LABS: Absolute Lymphocyte Count 2.42 X10^3/ul (0.83-4.51); Absolute Neutrophil Count 3.6 X10^3/uL (2.0-7.7); Basophil# 0.03 X10^3/uL; Basophil% 0.4 % (0-1); Eosinophil# 0.26 X10^3/uL; Eosinophils% 3.8 % (0-5); Hematocrit 43.6 % (37-47); Hemoglobin 14.8 g/dl (12.0-15.0); Lymphocyte # 2.42 X10^3/ul (4.0); Lymphocyte % 35.6 % (19-41); Mean Corp Hgb Conc 33.9 g/gl (32-36); Mean Corpuscular Volume 91.4 fL (81-99); Mean Platelet Vol. 11.3 fl (6.2-12.0); Monocyte# 0.47 X10^3/uL; Monocyte% 6.9 % (0-10); POSITIVE COUNT NO; POSITIVE DIFFERENTIAL NO; POSITIVE MORPHOLOGY NO; Platelet Count 238 K/mm3 (150-450); RBC Distribution Width CV 12.8 % (11.6-14.6); RBC Distribution Width SD 42.8 fl (35.1-43.9); Red Blood Count 4.77 M/mm3 (4.2-5.4); White Blood Count 6.8 K/mm3 (4.4-11.0)
[2017-12-12 17:57] LABS: Anion Gap 9 (5-15); BUN 14 mg/dL (7-18); BUN/Creat Ratio 11.5 RATIO (10-20); Calcium,Total 9.5 mg/dL (8.5-10.1); Chloride 101 mmol/L (98-107); Creatinine, Serum 1.22 mg/dL (0.55-1.02); EST Glomerular Filtration Rate 47 mL/min (>60); Est Glom Filt Rate - Afr Amer 57 mL/min (>60); Estimated Creatinine Clearance 38.54 ml/min; Glucose 515 mg/dL (74-106); Sodium Level 135 mmol/L (136-145)
--- NOTE | 2017-12-12 17:58 | ED.VISSUMM ---
- ER Visit Summary Date of Service: 12/12/17 Chief Complaint: Chest pain History of Present Illness: The patient is a 62 F no history of CAD with a prior KS and 5 cardiac stents. Also history of insulin-dependent diabetes, hypertension and COPD. She had a PE multiple years ago. Patient states that the last 3 hours she has had chest pain. She said was after family argument. Then she ate some chicken and has had lower sternal chest heaviness radiating to her left neck. She took 2 nitro's at home without any relief. She denies any hemoptysis. No recent travel or surgery. No calf pain. She was hospitalized 3-4 weeks ago here at [place]. Physical Examination: Vital signs are stable afebrile. Pulse ox 90% room air no signs of hypoxia. She is in no distress. H EENT exam unremarkable. Neck nontender no JVD. Lungs clear to auscultation bilaterally. No rales rhonchi or wheezing. Equal symmetrical. Abdomen is soft nontender nondistended no giving or masses. Normal bowel sounds no peritoneal signs. The epigastric, right upper quadrant right lower quadrants are unremarkable. No Salas sign. She is moving all 4 extremities. Neurovascular intact. Calves nontender without edema or cords. Neurologic exam is awake and alert without any focal neurologic deficits. Test Results: Chest x-ray shows no acute abnormality read both myself and the radiologist. Normal cardiac silhouette. He is sinus rhythm rate 80 with no acute abnormality. A repeat EKG was done again shows sinus rhythm rate of 80 with no acute abnormality and no change from the first. No signs of KS or ischemia. CBC normal. BMP unremarkable other than a glucose of 515. Normal gap. Liver enzymes normal. Lipase normal. Troponin normal second troponin II hours after the first was again normal. Emergency Department Course and Treatment: Undergo cardiac workup be treated with sublingual nitroglycerin. Patient refused further sublingual nitroglycerin she had taken 2 prior to arrival which gave her no relief. She was given morphine and Zofran improved her pain. Multiple repeat exam she is doing well. Last exam was around 2100. Patient is a normal workup. She has been given insulin her blood sugar be rechecked and she will be discharged to home. Treatment Plan: Follow-up with her primary care physician Dr. Rocco Quesada as soon as possible. And her primary care provider at the [facility] clinic. Disposition: discharge Impression: Acute chest pain uncertain etiology Acute hyperglycemia History of CAD with 5 cardiac stents History of insulin-dependent diabetes, hypertension and COPD This note was generated with [employer] dictation software. It may contain incorrect words, spelling, and punctuation that were not noted in review of the chart prior to signing ED Disposition - Plan for ED Patient: Chief Complaint: Chest Pain Referrals: Nadira Sifuentes, GLOBAL POSITION SYSTEM TECHNICIAN-C [Primary Care Provider] -
--- NOTE | 2017-12-12 18:43 | EKG12_ITS ---
Test Reason : CP Blood Pressure : / mmHG Vent. Rate : 080 BPM Atrial Rate : 080 BPM P-R Int : 150 ms QRS Dur : 078 ms QT Int : 400 ms P-R-T Axes : 047 031 032 degrees QTc Int : 461 ms Normal sinus rhythm Normal ECG Confirmed by ADRIAN BARFIELD, DAVID ([id number]), state editor ARON HASKINS ([id number]) on 12/13/2017 2:31:36 PM Referred By: RUBÉN/SUSHMA Confirmed By:DAVID CAMPBELL MD
[2017-12-12 19:00] VITALS: BP 136/67; PULSE 78; RESP 20; O2SAT 98
[2017-12-12] MEDS: Ondansetron 4 MG/2 ML Vial IV (19:04)
[2017-12-12] MEDS: 0.9% Normal Saline 1,000 ML 999 ML IV (19:05)
[2017-12-12 19:19] LABS: AST(SGOT) 26 U/L (15-37); Alanine Aminotransfer ALT/SGPT 36 U/L (13-56); Albumin, Serum 4.8 g/dL (3.2-5.0); Alkaline Phosphatase 82 U/L (45-117); Bilirubin, Direct 0.08 mg/dL (0.00-0.30); Globulin 3.8 g/dL (2.2-4.2); Lipase 307 U/L (73-393); Protein, Total 8.6 g/dL (6.4-8.2)
[2017-12-12 20:00] VITALS: BP 126/76; PULSE 80; RESP 23; O2SAT 97
--- NOTE | 2017-12-12 21:04 | DCINST.ED_ITS ---
ED Disposition - Plan for ED Patient: Disposition: Home or Assisted Living Chief Complaint: Chest Pain Instructions: ED Chest Pain Atypical Unkn Cause Referrals: Nadira Sifuentes NP-Alix [Primary Care Provider] - As soon as possible Sam Quesada MD [STAFF PHYSICIAN] - As soon as possible Additional Instructions: On follow-up with Dr. Quesada for your chest pain as soon as possible. Call and follow-up with [facility] clinic as soon as possible for your blood sugars. Check your blood sugar tonight prior to going to bed. Take her normal insulin dose prior to going to bed as long as her blood sugars greater than 100. Return to ER if you are feeling worse.
[2017-12-12 21:18] VITALS: BP 128/101; PULSE 82; RESP 18; O2SAT 99
== END 2017-12-12 21:19 | disposition home or self-care (01) ==
PROVIDERS: Emergency Provider Emergency Medicine; Family Provider Nurse Practitioner Family; PCP Nurse Practitioner Family
DX: R07.89 Other chest pain (principal); E11.65 Type 2 diabetes mellitus with hyperglycemia; I25.10 Atherosclerotic heart disease of native coronary artery without angina pectoris; I25.2 Old myocardial infarction; J44.9 Chronic obstructive pulmonary disease, unspecified; I10 Essential (primary) hypertension; E78.00 Pure hypercholesterolemia, unspecified; Z86.711 Personal history of pulmonary embolism; Z85.42 Personal history of malignant neoplasm of other parts of uterus; Z95.5 Presence of coronary angioplasty implant and graft; Z90.710 Acquired absence of both cervix and uterus; Z79.82 Long term (current) use of aspirin; Z79.02 Long term (current) use of antithrombotics/antiplatelets; Z79.4 Long term (current) use of insulin; Z79.899 Other long term (current) drug therapy
CPT/HCPCS: 71045; 80048; 80076; 83690; 84484; 85025; 93005; 96361; 96372; 96374; 96375; 99284; J7030; A4216; J2405

== ENCOUNTER 2017-12-30 20:14 | Emergency (ER) | payer SELFPAY ==
[2017-03-16 08:30] VITALS: BMI 29.2
[2017-12-30 20:15] VITALS: BP 157/78; PULSE 79; RESP 23; TEMP 36.6; O2SAT 100; BMI 28.0
--- NOTE | 2017-12-30 20:20 | EKG12_ITS ---
Test Reason : CHEST PAIN Blood Pressure : / mmHG Vent. Rate : 083 BPM Atrial Rate : 083 BPM P-R Int : 146 ms QRS Dur : 074 ms QT Int : 398 ms P-R-T Axes : 050 032 040 degrees QTc Int : 467 ms Normal sinus rhythm Normal ECG Confirmed by ADRIAN BARFIELD, DAVID ([id number]), editor managing director ARON HASKINS ([id number]) on 01/03/2018 1:38:39 PM Referred By: RONAK Confirmed By:DAVID CAMPBELL MD
[2017-12-30 20:25] LABS: Bedside Glucose > 500 mg/dL (70-110)
--- NOTE | 2017-12-30 20:27 | ED.DCSUM_ITS ---
- ER Visit Summary Date of Service: 12/30/17 Chief Complaint: Chest pain History of Present Illness: The patient is a 62 F history of coronary vascular disease status post stents, diabetes, hypertension, and anxiety presents to the emergency department chest pain. Patient states she was in her normal state of health. She states that she was cleaning her house today. She states she had an arrest and had sudden onset pain. She describes it as sharp sensation across her left chest into her arm. She denies shortness of breath. She does admit to nausea and vomiting. The patient states she has been compliant with all of her medications. She is a poorly controlled diabetic. She states that she is taking her Plavix every day and has not missed any doses. She did get 2 nitro which did not change her pain. She is on complaining of a mild headache. The patient does follow with Dr. Quesada. Her last heart catheterization was in September 2017 which showed patent vessels. The patient has been seen here multiple times for similar complaints over the past 3 months. Physical Examination: Vital signs reviewed General: Well-nourished, well-developed Head: Normocephalic, atraumatic Eyes: Pupils equal and reactive, extraocular muscles intact Neck, supple, no lymphadenopathy Heart: Regular rate and rhythm Respiratory: No distress, clear bilaterally Abdomen: Soft, nontender, nondistended, no peritoneal signs Back: Nontender Extremities: Nontender, no edema, no cords Skin: Normal color no rash Neuro: Alert and oriented, no focal or lateralizing deficits Test Results: [] Emergency Department Course and Treatment: The patient presents with chest pain. She does have a history of coronary vascular disease. Her initial EKG shows no acute ischemic change. The patient was given nitro with no improvement. She was given morphine with some improvement. The patient was having what appeared to be artifact on the monitor. The monitor read as V. tach , but the patient did have visible QRS in his complexes. I did repeat her EKG and there was no progression. Actually sent the patient's EKGs and monitor strip to Dr. Hernandez who reviewed them. He does agree that this is artifact. At this time, given the patient's recent negative heart catheterization, recent admission with negative cardiac enzymes without intervention, and now resolution of pain after analgesics I do feel that she is appropriate for delta troponin testing. The patient will undergo repeat cardiac enzymes. These are negative, she will be discharged to follow-up with cardiology. She was significantly hyperglycemic on arrival. She was given fluids and insulin and her sugar has improved. On reevaluation, she is resting comfortably without pain. Repeat troponin is negative. After discussion with cardiology, I do feel this patient can safely be discharged home. She will follow up with Dr. Quesada. She will return with any worsening pain. Treatment Plan: [] Disposition: Discharge Impression: 1. Chest pain 2. Hyperglycemia This note was generated with [employer] dictation software. It may contain incorrect words, spelling, and punctuation that were not noted in review of the chart prior to signing ED Disposition - Plan for ED Patient: Chief Complaint: Chest Pain Instructions: ED Chest Pain Atypical Unkn Cause Referrals: Nadira Sifuentes NP-C [Primary Care Provider] -
--- NOTE | 2017-12-30 20:27 | NURSING ---
BGT [id number]
--- NOTE | 2017-12-30 20:31 | RAD_ITS ---
STUDY: X-RAY CHEST REASON FOR EXAM: Female, 62 years old. Chest pain. TECHNIQUE: Single AP portable view of the chest. COMPARISON: None. FINDINGS: The lungs are clear and expanded. There is no demonstrated pleural abnormality. Normal size heart. Normal mediastinum and jovan. Normal visualized pulmonary arteries. Normal visualized aortic arch and descending thoracic aorta. Normal visualized thoracic spine. Normal visualized ribs, clavicles, and shoulders. There is no demonstrated abnormality of the visualized soft tissue structures of the upper abdomen. RAD/Chest 1 View (Portable) IMPRESSION: No evidence of acute cardiopulmonary process. Electronically Signed: Joni Lopez DO at 21:14 EDT , Service support ,
[2017-12-30] MEDS: Aspirin 81 MG TAB.CHEW 324 MG PO (20:32)
[2017-12-30] MEDS: Ondansetron 4 MG/2 ML Vial IV (20:32)
[2017-12-30] MEDS: Morphine 4 MG/ML Syringe IV ×2 (20:33→23:31)
[2017-12-30] MEDS: 0.9% Normal Saline 1,000 ML 150 ML IV (20:39)
[2017-12-30 20:42] LABS: Absolute Lymphocyte Count 3.06 X10^3/ul (0.83-4.51); Absolute Neutrophil Count 4.7 X10^3/uL (2.0-7.7); Basophil# 0.02 X10^3/uL; Basophil% 0.2 % (0-1); Eosinophil# 0.23 X10^3/uL; Eosinophils% 2.7 % (0-5); Hematocrit 38.9 % (37-47); Hemoglobin 13.3 g/dl (12.0-15.0); Lymphocyte # 3.06 X10^3/ul (4.0); Lymphocyte % 35.4 % (19-41); Mean Corp Hgb Conc 34.2 g/gl (32-36); Mean Corpuscular Hgb 30.7 pg (27.0-32.0); Mean Corpuscular Volume 89.8 fL (81-99); Mean Platelet Vol. 11.3 fl (6.2-12.0); Monocyte# 0.57 X10^3/uL; Monocyte% 6.6 % (0-10); Neutrophil # 4.74 X10^3/uL (2.7-7.7); Neutrophil % 54.8 % (47-70); POSITIVE COUNT NO; POSITIVE DIFFERENTIAL NO; POSITIVE MORPHOLOGY NO; Platelet Count 242 K/mm3 (150-450); RBC Distribution Width CV 12.6 % (11.6-14.6); RBC Distribution Width SD 40.5 fl (35.1-43.9); Red Blood Count 4.33 M/mm3 (4.2-5.4); White Blood Count 8.7 K/mm3 (4.4-11.0)
[2017-12-30 20:55] LABS: Anion Gap 11 (5-15); BUN 9 mg/dL (7-18); BUN/Creat Ratio 10.3 RATIO (10-20); Calcium,Total 8.8 mg/dL (8.5-10.1); Chloride 103 mmol/L (98-107); Creatinine, Serum 0.87 mg/dL (0.55-1.02); EST Glomerular Filtration Rate 70 mL/min (>60); Est Glom Filt Rate - Afr Amer 84 mL/min (>60); Estimated Creatinine Clearance 54.04 ml/min; Glucose 561 mg/dL (74-106); Potassium 3.8 mmol/L (3.5-5.1); Sodium Level 134 mmol/L (136-145)
--- NOTE | 2017-12-30 21:09 | EKG12_ITS ---
Test Reason : REPEAT Blood Pressure : / mmHG Vent. Rate : 072 BPM Atrial Rate : 072 BPM P-R Int : 156 ms QRS Dur : 082 ms QT Int : 432 ms P-R-T Axes : 046 019 022 degrees QTc Int : 473 ms Normal sinus rhythm Normal ECG Confirmed by DAVID CAMPBELL MD ([id number]), acquisition editor ARON HASKINS ([id number]) on 01/03/2018 1:38:54 PM Referred By: RONAK Confirmed By:DAVID CAMPBELL MD
[2017-12-30 21:16] LABS: BNP,B-Type NATRIURETIC PEPTIDE 31.6 pg/mL (0-100)
[2017-12-30 21:34] VITALS: BP 149/73; PULSE 72; RESP 15; O2SAT 98
[2017-12-30 22:19] VITALS: BP 158/74; PULSE 80; RESP 19; O2SAT 94
[2017-12-30 22:21] LABS: Bedside Glucose 374 mg/dL (70-110)
[2017-12-30 22:35] LABS: Bedside Glucose 364 mg/dL (70-110)
[2017-12-30 23:29] VITALS: BP 135/77; PULSE 79; RESP 16; O2SAT 97
[2017-12-30] MEDS: proMETHazine 25 MG Tablet PO (23:30)
[2017-12-31 00:06] LABS: Bedside Glucose 115 mg/dL (70-110)
== END 2017-12-31 00:03 | disposition home or self-care (01) ==
PROVIDERS: Emergency Provider Emergency Medicine; Family Provider Nurse Practitioner Family; PCP Nurse Practitioner Family
DX: R07.9 Chest pain, unspecified (principal); E11.65 Type 2 diabetes mellitus with hyperglycemia; I25.10 Atherosclerotic heart disease of native coronary artery without angina pectoris; I25.2 Old myocardial infarction; I10 Essential (primary) hypertension; E78.00 Pure hypercholesterolemia, unspecified; F41.9 Anxiety disorder, unspecified; Z95.5 Presence of coronary angioplasty implant and graft; Z79.82 Long term (current) use of aspirin; Z79.02 Long term (current) use of antithrombotics/antiplatelets; Z79.4 Long term (current) use of insulin; Z79.899 Other long term (current) drug therapy; Z72.0 Tobacco use
CPT/HCPCS: 71045; 80048; 82962; 83880; 84484; 85025; 93005; 96361; 96372; 96374; 96375; 96376; 99285; J7030; A4216; J2405

== ENCOUNTER 2018-01-02 15:25 | Emergency (ER) | payer SELFPAY ==
[2017-03-16 08:30] VITALS: BMI 29.2
[2018-01-02 15:26] VITALS: BP 163/73; PULSE 94; RESP 16; TEMP 37; O2SAT 98; BMI 26.9
--- NOTE | 2018-01-02 15:36 | RAD_ITS ---
STUDY: X-RAY - SOFT TISSUE NECK REASON FOR EXAM: Female, 62 years old. Esophageal pain TECHNIQUE: 2 view(s) of the neck were obtained. COMPARISON: None. FINDINGS: Normal visualized nasopharynx, oropharynx, hypopharynx. Normal epiglottis. Normal visualized subglottic tracheal air column. Normal prevertebral soft tissue structures. Cervical spine demonstrates mild spondylosis The soft tissue structures are unremarkable. RAD/Neck for Soft Tissue IMPRESSION: Mild cervical spondylosis. No other significant abnormality Electronically Signed: Walker Vale MD at 16:22 EDT , Service support ,
--- NOTE | 2018-01-02 15:36 | EKG12_ITS ---
Test Reason : SORE THROAT Blood Pressure : / mmHG Vent. Rate : 082 BPM Atrial Rate : 082 BPM P-R Int : 144 ms QRS Dur : 080 ms QT Int : 392 ms P-R-T Axes : 035 012 027 degrees QTc Int : 457 ms Normal sinus rhythm Normal ECG Confirmed by DAVID CAMPBELL MD ([id number]), social media editor ARON HASKINS ([id number]) on 01/05/2018 2:47:50 PM Referred By: RONAK Confirmed By:DAVID CAMPBELL MD
--- NOTE | 2018-01-02 15:38 | ED.VISSUMM ---
- ER Visit Summary Date of Service: 01/02/18 Chief Complaint: Sore throat, trouble swallowing History of Present Illness: The patient is a 62 F with significant history of diabetes, coronary vascular disease, and hypertension presents with sore throat. Actually saw this patient 3 nights ago for chest pain. She states her pain has been markedly improved. She has began to have pain in her throat down into her top of her sternum. She states it hurts when she swallows. She states that she had some nausea and vomiting. She states that anything she swallows causes significant pain. The patient is a very poorly controlled diabetic. She states she has not checked her sugars today. States yesterday was 126. She denies any history of thrush. She denies any fevers or chills. The patient does smoke. She denies any change in voice. She denies any trismus. Physical Examination: Vital signs reviewed General: Well-nourished, well-developed Head: Normocephalic, atraumatic Eyes: Pupils equal and reactive, extraocular muscles intact ENT: Patient has adherent white plaques in the posterior oropharynx consistent with thrush. No evidence of retropharyngeal peritonsillar abscess. Neck supple. Neck, supple, no lymphadenopathy Heart: Regular rate and rhythm Respiratory: No distress, clear bilaterally Abdomen: Soft, nontender, nondistended, no peritoneal signs Back: Nontender Extremities: Nontender, no edema, no cords Skin: Normal color no rash Neuro: Alert and oriented, no focal or lateralizing deficits Test Results: EKG demonstrates sinus rhythm without acute ischemic change. Screening labs are unremarkable. Patient is hyperglycemic. X-ray of the chest and soft tissue neck are unremarkable. Emergency Department Course and Treatment: She does appear to have evidence of thrush. She is a poorly controlled diabetic. I do feel that this is what is causing her symptoms. However, given her history of coronary vascular disease, I did obtain an EKG, chest x-ray, and cardiac enzymes. She has had the pain persistently for greater than 12 hours. She has negative cardiac enzymes. I do feel this effectively rules her out for acute coronary syndrome. Rapid strep was negative. Plain films were unremarkable. At this time, I am going to treat the patient with nystatin swish and follow. I did automobile travel club counselor her on controlling her blood sugar as I do feel this is the reason that she has had these. The patient will be discharged, to follow-up with her PCP and discuss blood sugar control. Treatment Plan: [] Disposition: Discharge Impression:. Oral thrush 2. Hyperglycemia This note was generated with [employer] dictation software. It may contain incorrect words, spelling, and punctuation that were not noted in review of the chart prior to signing ED Disposition - Plan for ED Patient: Chief Complaint: Sore Throat Instructions: ED Oral Infec Fungal Clarita Ch Prescriptions: Ondansetron [Zofran Odt] 4 mg PO Q8H PRN PRN #10 tab PRN Reason: Nausea Nystatin 500,000 unit PO 4X/DAY #40 ud Referrals: Nadira Sifuentes, VELASQUEZ-C [Primary Care Provider] -
[2018-01-02 15:42] VITALS: O2SAT 98
[2018-01-02] MEDS: Ondansetron 4 MG/2 ML Vial IV (15:50)
[2018-01-02] MEDS: Morphine 4 MG/ML Syringe IV (15:50)
[2018-01-02] MEDS: Aspirin 81 MG TAB.CHEW 324 MG PO (15:50)
[2018-01-02 15:55] LABS: Absolute Neutrophil Count 4.7 X10^3/uL (2.0-7.7); Basophil# 0.04 X10^3/uL; Basophil% 0.5 % (0-1); Eosinophil# 0.24 X10^3/uL; Hematocrit 40.1 % (37-47); Hemoglobin 13.9 g/dl (12.0-15.0); Lymphocyte % 31.1 % (19-41); Mean Corp Hgb Conc 34.7 g/gl (32-36); Mean Corpuscular Hgb 31.3 pg (27.0-32.0); Mean Corpuscular Volume 90.3 fL (81-99); Mean Platelet Vol. 11.2 fl (6.2-12.0); Monocyte# 0.53 X10^3/uL; Monocyte% 6.6 % (0-10); Neutrophil # 4.71 X10^3/uL (2.7-7.7); Neutrophil % 58.4 % (47-70); Platelet Count 258 K/mm3 (150-450); RBC Distribution Width CV 12.5 % (11.6-14.6); RBC Distribution Width SD 40.8 fl (35.1-43.9); Red Blood Count 4.44 M/mm3 (4.2-5.4); White Blood Count 8.1 K/mm3 (4.4-11.0)
--- NOTE | 2018-01-02 15:56 | RAD_ITS ---
STUDY: X-RAY CHEST REASON FOR EXAM: Female, 62 years old. Esophageal pain TECHNIQUE: PA COMPARISON: December 30, 2017 FINDINGS: Diminished inspiratory effort is seen and there is minor interstitial thickening in both lower lobes. No focal infiltrates are observed.. There is no demonstrated pleural abnormality. Normal size heart. Normal mediastinum and jovan. Normal visualized pulmonary arteries. Normal visualized aortic arch and descending thoracic aorta. Normal visualized thoracic spine. Normal visualized ribs, clavicles, and shoulders. There is no demonstrated abnormality of the visualized soft tissue structures of the upper abdomen. RAD/Chest 1 View (Portable) IMPRESSION: Diminished inspiratory effort and mild interstitial thickening in the lower lobes Electronically Signed: Walker Vale MD at 16:22 EDT , Service support ,
[2018-01-02 16:02] LABS: POSITIVE COUNT NO; POSITIVE DIFFERENTIAL NO; POSITIVE MORPHOLOGY NO
[2018-01-02 16:25] LABS: Anion Gap 10 (5-15); BUN 15 mg/dL (7-18); Calcium,Total 9.1 mg/dL (8.5-10.1); Chloride 102 mmol/L (98-107); Creatinine, Serum 0.84 mg/dL (0.55-1.02); EST Glomerular Filtration Rate 73 mL/min (>60); Est Glom Filt Rate - Afr Amer 88 mL/min (>60); Estimated Creatinine Clearance 55.97 ml/min; Glucose 424 mg/dL (74-106); Potassium 4.1 mmol/L (3.5-5.1); Sodium Level 135 mmol/L (136-145)
[2018-01-02 17:12] VITALS: BP 147/76; PULSE 71; RESP 16; O2SAT 98
== END 2018-01-02 17:12 | disposition home or self-care (01) ==
LOC: ED 15:57
PROVIDERS: Emergency Provider Emergency Medicine; Family Provider Nurse Practitioner Family; PCP Nurse Practitioner Family
DX: B37.0 Candidal stomatitis (principal); E11.65 Type 2 diabetes mellitus with hyperglycemia; I25.10 Atherosclerotic heart disease of native coronary artery without angina pectoris; I10 Essential (primary) hypertension; Z79.82 Long term (current) use of aspirin; Z79.4 Long term (current) use of insulin; Z79.02 Long term (current) use of antithrombotics/antiplatelets; Z79.899 Other long term (current) drug therapy; Z72.0 Tobacco use
CPT/HCPCS: 70360; 71045; 80048; 84484; 85025; 87880; 93005; 96374; 96375; 99285; A4216; J2405

== ENCOUNTER 2018-01-09 18:44 | Observation (INO) | payer SELFPAY ==
[2017-03-16 08:30] VITALS: BMI 29.2
[2018-01-09] VITALS (11 sets, daily range): BP systolic 116–168; BP diastolic 66–101; PULSE 78–106; RESP 16–20; TEMP 36.4–37; O2SAT 95–99; BMI 26.3; BMI 26.6; BMI 26.5
--- NOTE | 2018-01-09 19:26 | EKG12_ITS ---
Test Reason : Blood Pressure : / mmHG Vent. Rate : 098 BPM Atrial Rate : 098 BPM P-R Int : 130 ms QRS Dur : 078 ms QT Int : 364 ms P-R-T Axes : 047 043 044 degrees QTc Int : 464 ms Normal sinus rhythm Nonspecific ST abnormality Abnormal ECG Confirmed by ADRIAN BARFIELD, DAVID ([id number]), video news editor ARON HASKINS ([id number]) on 01/13/2018 1:01:04 PM Referred By: Confirmed By:DAVID CAMPBELL MD
--- NOTE | 2018-01-09 19:27 | ED.VISSUMM ---
- ER Visit Summary Date of Service: 01/09/18 Chief Complaint: Chest pain History of Present Illness: The patient is a 62 F presenting with chest pain. She states it started this afternoon. She states it is worsened with exertion. She has associated nausea, vomiting, diaphoresis, shortness of breath. The pain is in her mid chest going to her left arm. She states it feels like her previous [place]. She took 3 nitro at home with no improvement. She has history of hypertension, diabetes, hypercholesteremia, early family history of heart disease. She is not a smoker. She has [address] Quesada. She states she had a fever of 102 yesterday. No fever today. No cough or other complaints. Physical Examination: Vitals are stable. Patient is afebrile. Alert no acute distress. HEENT exam is unremarkable. Neck is supple. Lungs are clear and equal bilaterally. Heart is regular rate and rhythm. Abdomen is soft nontender nondistended. Extremities are unremarkable. Skin is warm and dry. No focal neurologic deficit. Remainder of exam is unremarkable. Emergency Department Course and Treatment: Patient is given aspirin, morphine, Zofran. EKG is sinus rhythm rate of 98 with no acute ischemic changes. Chest x-ray shows no acute process. CBC, chemistries unremarkable other than glucose 315. Troponin is negative. Influenza is negative. Patient has multiple risk factors. Will discuss with hospitalist for observation. Patient had a return of her chest pain while in the emergency department. She was given additional dose of morphine. EKG repeat is sinus rate of 85 with no acute ischemic changes. Patient's pain is improved after morphine. Disposition: Observation Impression: Chest pain This note was generated with [employer] dictation software. It may contain incorrect words, spelling, and punctuation that were not noted in review of the chart prior to signing ED Disposition - Plan for ED Patient: Chief Complaint: Chest Pain Referrals: Nadira Sifuentes NP-C [Primary Care Provider] -
--- NOTE | 2018-01-09 19:30 | RAD_ITS ---
XR Chest 1 View INDICATION: CHEST PAIN COMPARISON: January 02, 2018 FINDINGS: Heart size and pulmonary vascularity are within normal limits. Cardiac stent is suggested. The lungs are clear without evidence of airspace consolidation or pleural effusion. The osseous structures are grossly unremarkable. RAD/Chest 1 View (Portable) IMPRESSION: Stable examination without radiographic evidence of acute intrathoracic disease. at 1950 Reported and signed by: Eli Silver MD Electronically Signed: Eli Silver MD at 18:48 EDT Tel , Service support ,
[2018-01-09 19:43] LABS: Absolute Lymphocyte Count 2.02 X10^3/ul (0.83-4.51); Absolute Neutrophil Count 2.8 X10^3/uL (2.0-7.7); Basophil# 0.01 X10^3/uL; Basophil% 0.2 % (0-1); Eosinophil# 0.18 X10^3/uL; Eosinophils% 3.2 % (0-5); Hemoglobin 13.6 g/dl (12.0-15.0); Lymphocyte # 2.02 X10^3/ul (4.0); Lymphocyte % 36.2 % (19-41); Mean Corpuscular Hgb 30.6 pg (27.0-32.0); Mean Corpuscular Volume 90.1 fL (81-99); Mean Platelet Vol. 11.1 fl (6.2-12.0); Monocyte# 0.51 X10^3/uL; Monocyte% 9.1 % (0-10); Neutrophil # 2.83 X10^3/uL (2.7-7.7); Neutrophil % 50.8 % (47-70); POSITIVE COUNT NO; POSITIVE DIFFERENTIAL NO; POSITIVE MORPHOLOGY NO; Platelet Count 214 K/mm3 (150-450); RBC Distribution Width CV 12.8 % (11.6-14.6); RBC Distribution Width SD 41.9 fl (35.1-43.9); Red Blood Count 4.44 M/mm3 (4.2-5.4); White Blood Count 5.6 K/mm3 (4.4-11.0)
[2018-01-09] MEDS: Morphine 4 MG/ML Syringe IV ×2 (19:43→21:13)
[2018-01-09] MEDS: Aspirin 81 MG TAB.CHEW 324 MG PO (19:43)
[2018-01-09] MEDS: Ondansetron 4 MG/2 ML Vial IV (19:43)
[2018-01-09 20:06] LABS: Anion Gap 8 (5-15); BUN 14 mg/dL (7-18); BUN/Creat Ratio 18.4 RATIO (10-20); Calcium,Total 8.7 mg/dL (8.5-10.1); Chloride 104 mmol/L (98-107); Creatinine, Serum 0.76 mg/dL (0.55-1.02); EST Glomerular Filtration Rate 81 mL/min (>60); Est Glom Filt Rate - Afr Amer 98 mL/min (>60); Estimated Creatinine Clearance 61.86 ml/min; Glucose 315 mg/dL (74-106); Sodium Level 135 mmol/L (136-145)
--- NOTE | 2018-01-09 21:03 | PCM.HP.STD ---
Problem List (1) Uncontrolled type 2 diabetes mellitus Status: Chronic Qualifiers: (2) Benign essential hypertension Status: Chronic (3) Hyperlipidemia Status: Chronic Qualifiers: (4) Coronary artery disease Status: Chronic Comment: ROMEL LAD 01/21 (5) COPD (chronic obstructive pulmonary disease) Status: Chronic Comment: cont smoking (6) Chest pain Status: Acute (7) Tobacco abuse Status: Chronic History of Present Illness Date of Admission: 01/09/18 Chief Complaint: chest pain The patient is a 62 year old female patient with a known history of coronary artery disease status post 5 stents one year ago presents to the ER with substernal chest pain. The onset of this pain began while she was watching television this afternoon. As she walked across her room the pain became worse and radiated to her left shoulder, arm to her hand. This felt similar to her previous [place]. She is a poorly controlled diabetic, smoker with COPD and already known to have heart disease. Initial troponin is negative and EKG is negative for acute changes. The pain was not responsive to three nitroglycerin doses. She will be admitted for further cardiac workup. Past Medical History Past Medical History (Chronic Problems): Chronic Problems Uncontrolled type 2 diabetes mellitus (Chronic) Benign essential hypertension (Chronic) Type 2 diabetes mellitus (Chronic) Hyperlipidemia (Chronic) Coronary artery disease (Chronic) ROMEL LAD 01/21 COPD (chronic obstructive pulmonary disease) (Chronic) cont smoking Tobacco abuse (Chronic) Allergies Penicillins Allergy (Verified 01/09/18 18:47) Hives hydrocodone bitartrate [From Vicodin] Adverse Reaction (Verified 01/09/18 18:47) Vomiting ibuprofen Adverse Reaction (Verified 01/09/18 18:47) Vomiting Home Medications: Ambulatory Orders Medication Instructions Recorded Lisinopril [Zestril] 5 mg PO DAILY 08/17/15 Aspirin [Adult Low Dose Aspirin EC] 81 mg PO DAILY 02/04/16 Furosemide [Lasix] 40 mg PO DAILY 02/04/16 Dicyclomine HCl [Bentyl] 10 mg PO DAILY 01/24/17 Famotidine [Pepcid] 20 mg PO DAILY 01/24/17 Simvastatin [Zocor] 40 mg PO QHS 01/24/17 Clopidogrel Bisulfate [Plavix] 75 mg PO DAILY 06/23/17 Metoprolol Tartrate [Lopressor 25 mg PO BID 06/23/17 (beta elder)] Trazodone HCl 50 mg PO QHS 06/23/17 Nitroglycerin [Nitrostat] 0.4 mg SUBLINGUAL Q5M PRN 09/28/17 Isosorbide Mononitrate [Imdur] 30 mg PO DAILY 11/23/17 Insulin Aspart [Novolog Flexpen] 10 units SC TIDCM #0 11/29/17 Insulin Detemir [Levemir FlexPen] 40 units SC BID #0 11/29/17 Sertraline HCl [Zoloft] 50 mg PO DAILY #30 tab 11/29/17 Nystatin 500,000 unit PO 4X/DAY #40 udc 01/02/18 Ondansetron [Zofran Odt] 4 mg PO Q8H PRN PRN #10 tab 01/02/18 Surgical History: angioplasty, cholecystectomy, hysterectomy, - - LAD PCI/ROMEL-02/08/2014 at [facility], stent placement at [facility] 03/15/17 along with percutaneous balloon angioplasty Psychiatric History: No pertinent psych hx YARN TWISTER History: No pertinent YARN TWISTER history Smoking Status: Current some day smoker - *Family History Maternal History Items: Heart Disease Paternal History Items: Heart Disease Sibling History Items: Heart Disease Review of Systems Constitutional: Denies: Chills, Fever, Weight Change HEENT: Denies: Head Aches, Sinus Congestion, Sinus Drainage Cardiovascular: Reports: Chest Pain, Chest Pressure, Chest Tightness. Denies: Palpitations Respiratory: Denies: Cough, Shortness of breath at rest, Sputum production Gastrointestinal: Denies: Abdominal Pain, Nausea, Vomiting Genitourinary: Denies: Dysuria Musculoskeletal: Denies: Joint Pain, Joint Tenderness Skin: Denies: Rash, Wounds Neurological: Denies: Numbness, Tingling, Focal weakness Psychiatric: Reports: Anxiety. Denies: Depression, Homicidal Ideations, Suicidal Ideations Hematologic/ Lymphatic: Denies: Easy Bruising, Easy Bleeding VTE Information - Inpt Only VTE Present on Admission: No VTE Mechan Device Prophylaxis: None VTE Pharm Prophylaxis ordered?: Yes - Physical Exam General: Alert, Oriented x3, Cooperative HEENT: Atraumatic, Normocephalic Neck: Supple, Negative Carotid Bruits Lungs: Clear to auscultation, Normal air movement Cardiovascular: Regular rate, Regular Rhythm, Normal S1, Normal S2, No murmurs Abdomen: Bowel Sounds Present, Soft, Non Tender Extremities: No edema, Capillary Refill Less than 3 Seconds Skin: No rashes, No breakdown Musculoskeletal: No Tenderness to Palpation of Joints or Extremities Neurological: Neuro grossly intact Psych/Mental Status: Appropriate, Anxious Vital Signs Temp Pulse Resp BP Pulse Ox 97.5 F L 94 16 151/74 H 97 01/09/18 18:45 01/09/18 20:44 01/09/18 20:44 01/09/18 20:44 01/09/18 20:44 Oxygen Delivery Method Room Air Weight: 148 lb 12.992 oz Body Mass Index (BMI) 26.3 Finger Stick Blood Glucose 115 Microbiology Past 72 Hours 01/09/18 19:50 Influenza Types A,B Direct FA (TANNER) - Final Mucosa - Nose Laboratory Tests Past 24 Hrs 01/09/18 01/09/18 19:16 19:16 WBC 5.6 RBC 4.44 Hgb 13.6 Hct 40.0 MCV 90.1 MCH 30.6 MCHC 34.0 RDW 12.8 RDW Differential 41.9 Plt Count 214 MPV 11.1 Immature Gran % (Auto) 0.500 Neut % (Auto) 50.8 Lymph % (Auto) 36.2 [place] % (Auto) 9.1 Eos % (Auto) 3.2 Baso % (Auto) 0.2 Absolute Neuts (auto) 2.8 Absolute Lymphs (auto) 2.02 Total Counted Not Reportable Sodium 135 L Potassium 4.0 Chloride 104 Carbon Dioxide 23.0 Anion Gap 8 BUN 14 Creatinine 0.76 Estim Creat Clear Calc 61.86 Est GFR (MDRD) Af Amer 98 Est GFR (MDRD) Non-Af 81 BUN/Creatinine Ratio 18.4 Glucose 315 H Calcium 8.7 Troponin I < 0.02 Assessment/Plan Chronic Problems Uncontrolled type 2 diabetes mellitus (Chronic) Benign essential hypertension (Chronic) Type 2 diabetes mellitus (Chronic) Hyperlipidemia (Chronic) Coronary artery disease (Chronic) ROMEL LAD 01/21 COPD (chronic obstructive pulmonary disease) (Chronic) cont smoking Tobacco abuse (Chronic) Acute Problems Chest Pain Plan - admit to progressive care unit - NPO at midnight - cycle cardiac markers. - morphine, oxygen, nitro and aspirin per routine - nuclear stress test in am - consult cardiology if Troponin converts, or if stress test positive - nicotine patch and encourage smoking cessation - check bmp, a1c in am - continue routine home medications - LMWH for DVT prophylaxis Code Visit OBSV E&M: 30146 Initial observation care L2
--- NOTE | 2018-01-09 21:11 | HP.PCM_ITS ---
Problem List (1) Uncontrolled type 2 diabetes mellitus Status: Chronic Qualifiers: (2) Benign essential hypertension Status: Chronic (3) Hyperlipidemia Status: Chronic Qualifiers: (4) Coronary artery disease Status: Chronic Comment: ROMEL LAD 01/21 (5) COPD (chronic obstructive pulmonary disease) Status: Chronic Comment: cont smoking (6) Chest pain Status: Acute (7) Tobacco abuse Status: Chronic History of Present Illness Date of Admission: 01/09/18 Chief Complaint: chest pain The patient is a 62 year old female patient with a known history of coronary artery disease status post 5 stents one year ago presents to the ER with substernal chest pain. The onset of this pain began while she was watching television this afternoon. As she walked across her room the pain became worse and radiated to her left shoulder, arm to her hand. This felt similar to her previous [place]. She is a poorly controlled diabetic, smoker with COPD and already known to have heart disease. Initial troponin is negative and EKG is negative for acute changes. The pain was not responsive to three nitroglycerin doses. She will be admitted for further cardiac workup. Past Medical History Past Medical History (Chronic Problems): Chronic Problems Uncontrolled type 2 diabetes mellitus (Chronic) Benign essential hypertension (Chronic) Type 2 diabetes mellitus (Chronic) Hyperlipidemia (Chronic) Coronary artery disease (Chronic) ROMEL LAD 01/21 COPD (chronic obstructive pulmonary disease) (Chronic) cont smoking Tobacco abuse (Chronic) Allergies Penicillins Allergy (Verified 01/09/18 18:47) Hives hydrocodone bitartrate [From Vicodin] Adverse Reaction (Verified 01/09/18 18:47) Vomiting ibuprofen Adverse Reaction (Verified 01/09/18 18:47) Vomiting Home Medications: Ambulatory Orders Medication Instructions Recorded Lisinopril [Zestril] 5 mg PO DAILY 08/17/15 Aspirin [Adult Low Dose Aspirin EC] 81 mg PO DAILY 02/04/16 Furosemide [Lasix] 40 mg PO DAILY 02/04/16 Dicyclomine HCl [Bentyl] 10 mg PO DAILY 01/24/17 Famotidine [Pepcid] 20 mg PO DAILY 01/24/17 Simvastatin [Zocor] 40 mg PO QHS 01/24/17 Clopidogrel Bisulfate [Plavix] 75 mg PO DAILY 06/23/17 Metoprolol Tartrate [Lopressor 25 mg PO BID 06/23/17 (beta elder)] Trazodone HCl 50 mg PO QHS 06/23/17 Nitroglycerin [Nitrostat] 0.4 mg SUBLINGUAL Q5M PRN 09/28/17 Isosorbide Mononitrate [Imdur] 30 mg PO DAILY 11/23/17 Insulin Aspart [Novolog Flexpen] 10 units SC TIDCM #0 11/29/17 Insulin Detemir [Levemir FlexPen] 40 units SC BID #0 11/29/17 Sertraline HCl [Zoloft] 50 mg PO DAILY #30 tab 11/29/17 Nystatin 500,000 unit PO 4X/DAY #40 udc 01/02/18 Ondansetron [Zofran Odt] 4 mg PO Q8H PRN PRN #10 tab 01/02/18 Surgical History: angioplasty, cholecystectomy, hysterectomy, - - LAD PCI/ROMEL- at [facility], stent placement at [facility] 03/15/17 along with percutaneous balloon angioplasty Psychiatric History: No pertinent psych hx 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 Denies: Palpitations Respiratory: Denies: Cough, Shortness of breath at rest, Sputum production Gastrointestinal: Denies: Abdominal Pain, Nausea, Vomiting Genitourinary: Denies: Dysuria Musculoskeletal: Denies: Joint Pain, Joint Tenderness Skin: Denies: Rash, Wounds Neurological: Denies: Numbness, Tingling, Focal weakness Psychiatric: Reports: Anxiety. Denies: Depression, Homicidal Ideations, Suicidal Ideations Hematologic/ Lymphatic: Denies: Easy Bruising, Easy Bleeding VTE Information - Inpt Only VTE Present on Admission: No VTE Mechan Device Prophylaxis: None VTE Pharm Prophylaxis ordered?: Yes - Physical Exam General: Alert, Oriented x3, Cooperative HEENT: Atraumatic, Normocephalic Neck: Supple, Negative Carotid Bruits Lungs: Clear to auscultation, Normal air movement Cardiovascular: Regular rate, Regular Rhythm, Normal S1, Normal S2, No murmurs Abdomen: Bowel Sounds Present, Soft, Non Tender Extremities: No edema, Capillary Refill Less than 3 Seconds Skin: No rashes, No breakdown Musculoskeletal: No Tenderness to Palpation of Joints or Extremities Neurological: Neuro grossly intact Psych/Mental Status: Appropriate, Anxious Vital Signs Temp Pulse Resp BP Pulse Ox 97.5 F L 94 16 151/74 H 97 01/09/18 18:45 01/09/18 20:44 01/09/18 20:44 01/09/18 20:44 01/09/18 20:44 Oxygen Delivery Method Room Air Weight: 148 lb 12.992 oz Body Mass Index (BMI) 26.3 Finger Stick Blood Glucose 115 Microbiology Past 72 Hours 01/09/18 19:50 Influenza Types A,B Direct FA (TANNER) - Final Mucosa - Nose Laboratory Tests Past 24 Hrs 01/09/18 01/09/18 19:16 19:16 WBC 5.6 RBC 4.44 Hgb 13.6 Hct 40.0 MCV 90.1 MCH 30.6 MCHC 34.0 RDW 12.8 RDW Differential 41.9 Plt Count 214 MPV 11.1 Immature Gran % (Auto) 0.500 Neut % (Auto) 50.8 Lymph % (Auto) 36.2 [place] % (Auto) 9.1 Eos % (Auto) 3.2 Baso % (Auto) 0.2 Absolute Neuts (auto) 2.8 Absolute Lymphs (auto) 2.02 Total Counted Not Reportable Sodium 135 L Potassium 4.0 Chloride 104 Carbon Dioxide 23.0 Anion Gap 8 BUN 14 Creatinine 0.76 Estim Creat Clear Calc 61.86 Est GFR (MDRD) Af Amer 98 Est GFR (MDRD) Non-Af 81 BUN/Creatinine Ratio 18.4 Glucose 315 H Calcium 8.7 Troponin I < 0.02 Assessment/Plan Chronic Problems Uncontrolled type 2 diabetes mellitus (Chronic) Benign essential hypertension (Chronic) Type 2 diabetes mellitus (Chronic) Hyperlipidemia (Chronic) Coronary artery disease (Chronic) ROMEL LAD 01/21 COPD (chronic obstructive pulmonary disease) (Chronic) cont smoking Tobacco abuse (Chronic) Acute Problems Chest Pain Plan - admit to progressive care unit - NPO at midnight - cycle cardiac markers. - morphine, oxygen, nitro and aspirin per routine - nuclear stress test in am - consult cardiology if Troponin converts, or if stress test positive - nicotine patch and encourage smoking cessation - check bmp, a1c in am - continue routine home medications - LMWH for DVT prophylaxis Code Visit OBSV E&M: 91301 Initial observation care L2
--- NOTE | 2018-01-09 21:11 | EKG12_ITS ---
Test Reason : REPEAT Blood Pressure : / mmHG Vent. Rate : 085 BPM Atrial Rate : 085 BPM P-R Int : 142 ms QRS Dur : 084 ms QT Int : 404 ms P-R-T Axes : 046 017 028 degrees QTc Int : 480 ms Sinus rhythm with Premature atrial complexes Otherwise normal ECG Confirmed by ADRIAN BARFIELD, DAVID ([id number]), make up editor ARON HASKINS ([id number] on 01/13/2018 1:01:28 PM Referred By: STANLEY Confirmed By:DAVID CAMPBELL MD
[2018-01-09] MEDS: Metoprolol Tartrate 25 MG Tablet PO (22:42)
[2018-01-09] MEDS: Atorvastatin Calcium 20 MG Tablet PO (22:42)
[2018-01-09] MEDS: traZODone 50 MG Tablet PO (22:42)
[2018-01-09 22:50] LABS: Bedside Glucose 236 mg/dL (70-110)
[2018-01-10] VITALS (14 sets, daily range): BP systolic 101–113; BP diastolic 52–67; PULSE 73–82; RESP 16–18; TEMP 36.8–37.1; O2SAT 94–97
[2018-01-10] MEDS: 0.9% NaCl Peripheral Flush Adult/Peds IV ×5 (00:28→20:42)
[2018-01-10] MEDS: Ondansetron 4 MG/2 ML Vial IV ×2 (00:28→09:37)
[2018-01-10] MEDS: Morphine 2 MG/ML Syringe IV ×4 (00:29→20:27)
[2018-01-10 03:35] LABS: Absolute Lymphocyte Count 2.18 X10^3/ul (0.83-4.51); Absolute Neutrophil Count 3.4 X10^3/uL (2.0-7.7); Basophil# 0.03 X10^3/uL; Basophil% 0.5 % (0-1); Eosinophils% 3.1 % (0-5); Hematocrit 36.5 % (37-47); Hemoglobin 12.8 g/dl (12.0-15.0); Lymphocyte # 2.18 X10^3/ul (4.0); Lymphocyte % 33.5 % (19-41); Mean Corp Hgb Conc 35.1 g/gl (32-36); Mean Corpuscular Hgb 31.9 pg (27.0-32.0); Mean Platelet Vol. 10.9 fl (6.2-12.0); Monocyte# 0.67 X10^3/uL; Monocyte% 10.3 % (0-10); Neutrophil % 52.1 % (47-70); Platelet Count 204 K/mm3 (150-450); RBC Distribution Width CV 12.6 % (11.6-14.6); RBC Distribution Width SD 41.6 fl (35.1-43.9); Red Blood Count 4.01 M/mm3 (4.2-5.4); White Blood Count 6.5 K/mm3 (4.4-11.0)
[2018-01-10 03:39] LABS: POSITIVE COUNT NO; POSITIVE DIFFERENTIAL NO; POSITIVE MORPHOLOGY NO
[2018-01-10 03:55] LABS: ALB/GLOB Ratio 0.9 RATIO (0.9-2.4); AST(SGOT) 40 U/L (15-37); Alanine Aminotransfer ALT/SGPT 33 U/L (13-56); Alkaline Phosphatase 76 U/L (45-117); Anion Gap 11 (5-15); BUN 13 mg/dL (7-18); BUN/Creat Ratio 22.6 RATIO (10-20); Calcium,Total 7.7 mg/dL (8.5-10.1); Chloride 105 mmol/L (98-107); Cholesterol 133 mg/dL (200); Creatinine, Serum 0.58 mg/dL (0.55-1.02); EST Glomerular Filtration Rate 112 mL/min (>60); Est Glom Filt Rate - Afr Amer 136 mL/min (>60); Estimated Creatinine Clearance 81.06 ml/min; Globulin 3.2 g/dL (2.2-4.2); Glucose 284 mg/dL (74-106); High Density Lipoprotein 39 mg/dL; Potassium 3.9 mmol/L (3.5-5.1); Protein, Total 6.2 g/dL (6.4-8.2); Sodium Level 137 mmol/L (136-145); Triglycerides 154 mg/dL; Very Low Density Lipoprotein 31 mg/dL (5-40)
[2018-01-10 04:36] LABS: Prothrombin Time (Protime)PT. 12.7 SECONDS (11.7-14.9)
[2018-01-10 04:37] LABS: Partial Thromboplast Time 25.2 Seconds (24.1-36.2)
--- NOTE | 2018-01-10 05:05 | CPS ---
pt attempted to wear cpap 10 ....5 min later had it removed it due to not fitting like her own from home, informed pt she may bring her own in if she wanted to, to feel more comfortable sleeping
--- NOTE | 2018-01-10 05:55 | EKG12_ITS ---
Test Reason : AM EKG Blood Pressure : / mmHG Vent. Rate : 074 BPM Atrial Rate : 074 BPM P-R Int : 152 ms QRS Dur : 086 ms QT Int : 428 ms P-R-T Axes : 051 018 032 degrees QTc Int : 475 ms Sinus rhythm with Premature atrial complexes Otherwise normal ECG When compared with ECG of 09-JAN-2018 21:16, MANUAL COMPARISON REQUIRED, DATA IS UNCONFIRMED Confirmed by ADRIAN BARFIELD, DAVID ([id number]), commercial production editor ARON HASKINS ([id number] on 01/13/2018 1:09:05 PM Referred By: DR GREENBERG Confirmed By:DAVID CAMPBELL MD
[2018-01-10] MEDS: Lisinopril 5 MG Tablet PO (05:57)
[2018-01-10] MEDS: Aspirin E.C. 81 MG Tablet PO (05:57)
[2018-01-10] MEDS: Clopidogrel Bisulfate 75 MG Tablet PO (05:57)
[2018-01-10 06:06] LABS: Bedside Glucose 314 mg/dL (70-110)
--- NOTE | 2018-01-10 08:50 | STRESSREP ---
Stress Test Report Pharmacologic myocardial perfusion stress test. 62-year-old lady with a history of chest pain. Stress protocol: Resting heart rate demonstrates normal sinus rhythm with a rate of 77 bpm normal intervals and noted resting blood pressure 7 and 39/67 mmHg. 0.4 mg regadenoson was infused per usual protocol followed by rapid intravenous saline flush injection continuous EKG monitoring was performed. The maximum heart rate attained was 105 bpm which was 67% maximum predicted heart rate the maximum workload attained was 1 metabolic equivalent. At rest there were nonspecific ST-T wave changes noted with no meet the criteria for ischemia at peak infusion nonspecific ST-T wave changes were noted. The resting blood pressure is 139/67 peak blood pressure 164 112. Myocardial perfusion protocol. 10.9 mCi of technetium 99m sestamibi was injected at rest. 0.4 mg regadenoson was infused per usual protocol. At peak infusion 34.0 mCi of technetium 99m sestamibi was injected stress images were obtained stress and rest images were reconstructed and compared in the short axis vertical long and horizontal long axis. Gated images were also obtained. Perfusion SPECT analysis: Review of the stress images demonstrate normal uptake of tracer noted in all areas of the myocardium. The resting images similarly demonstrate normal uptake of tracer noted in all areas of the myocardium. No areas of reversibility are noted suggest ischemia no previous infarct is noted. Gated SPECT analysis: The gated ejection fraction is in excess of 80%. Conclusion: Normal pharmacologic myocardial perfusion stress test. Preserved ejection fraction.
[2018-01-10 09:30] LABS: Hemoglobin A1c 13.7 % (4.2-6.3)
[2018-01-10] MEDS: Isosorbide Mononitrate 30 MG Tablet PO (09:37)
[2018-01-10] MEDS: Famotidine 20 MG Tablet PO (09:37)
[2018-01-10] MEDS: Dicyclomine 10 MG Capsule PO (09:37)
[2018-01-10] MEDS: Sertraline 50 MG Tablet PO (09:37)
[2018-01-10] MEDS: Furosemide 40 MG Tablet PO (09:37)
[2018-01-10] MEDS: Metoprolol Tartrate 25 MG Tablet PO ×2 (09:41→22:00)
[2018-01-10 11:36] LABS: Bedside Glucose 360 mg/dL (70-110)
--- NOTE | 2018-01-10 12:04 | PN_ITS ---
Subjective: Patient seen and examined. Complains of nausea with emesis this morning. She states this is worse after she eats. Patient states for the past few months she has noticed burning/pain after she eats and her lower esophageal area. She denies feeling of food getting stuck or difficulty swallowing. Denies abdominal pain. Denies fever, chills. Denies other complaints. - Physical Exam General: Alert, Oriented x3, Cooperative, - - Appears unwell, wet towel on forehead, nauseous. HEENT: Atraumatic, PERRLA, EOMI, Normocephalic Neck: Supple, No JVD, Negative Carotid Bruits Lungs: Clear to auscultation, Normal air movement Cardiovascular: Regular rate, Regular Rhythm, Normal S1, Normal S2, No murmurs Abdomen: Bowel Sounds Present, Soft, Non Tender, Non-Distended Extremities: No clubbing, No cyanosis, No edema, Capillary Refill Less than 3 Seconds Skin: No rashes, No breakdown Musculoskeletal: No Tenderness to Palpation of Joints or Extremities Neurological: Cranial nerves II-XII grossly intact, Neuro grossly intact Psych/Mental Status: Normal Affect, Appropriate Vital Signs Temp Pulse Resp BP Pulse Ox 98.4 F 82 16 113/56 L 97 01/10/18 09:30 01/10/18 11:03 01/10/18 09:30 01/10/18 09:41 01/10/18 09:50 Oxygen Flow Rate (L/min) 2 Oxygen Delivery Method Room Air Weight: 68 kg Body Mass Index (BMI) 26.5 Intake and Output for Last 24 Hours 01/08/18 01/09/18 01/10/18 23:59 23:59 23:59 Intake Total 260 / 260 Output Total 500 / 500 Balance -240 / -240 Laboratory Tests Past 24 Hrs 01/09/18 01/10/18 01/10/18 22:50 03:18 03:18 WBC 6.5 RBC 4.01 L Hgb 12.8 Hct 36.5 L MCV 91.0 MCH 31.9 MCHC 35.1 RDW 12.6 RDW Differential 41.6 Plt Count 204 MPV 10.9 Immature Gran % (Auto) 0.500 Neut % (Auto) 52.1 Lymph % (Auto) 33.5 Spalding % (Auto) 10.3 H Eos % (Auto) 3.1 Baso % (Auto) 0.5 Absolute Neuts (auto) 3.4 Absolute Lymphs (auto) 2.18 Total Counted Not Reportable PT INR APTT Sodium 137 Potassium 3.9 Chloride 105 Carbon Dioxide 21.0 Anion Gap 11 BUN 13 Creatinine 0.58 Estim Creat Clear Calc 81.06 Est GFR (MDRD) Af Amer 136 Est GFR (MDRD) Non-Af 112 BUN/Creatinine Ratio 22.6 H Glucose 284 H Hemoglobin A1c Calcium 7.7 L Total Bilirubin 0.30 AST 40 H ALT 33 Alkaline Phosphatase 76 Troponin I < 0.02 Total Protein 6.2 L Albumin 3.0 L Globulin 3.2 Albumin/Globulin Ratio 0.9 Triglycerides 154 Cholesterol 133 LDL Cholesterol 63 VLDL Cholesterol 31 HDL Cholesterol 39 L 01/10/18 01/10/18 01/10/18 03:18 03:18 03:18 WBC RBC Hgb Hct MCV MCH MCHC RDW RDW Differential Plt Count MPV Immature Gran % (Auto) Neut % (Auto) Lymph % (Auto) Spalding % (Auto) Eos % (Auto) Baso % (Auto) Absolute Neuts (auto) Absolute Lymphs (auto) Total Counted PT 12.7 INR 1.0 APTT 25.2 Sodium Potassium Chloride Carbon Dioxide Anion Gap BUN Creatinine Estim Creat Clear Calc Est GFR (MDRD) Af Amer Est GFR (MDRD) Non-Af BUN/Creatinine Ratio Glucose Hemoglobin A1c 13.7 H Calcium Total Bilirubin AST ALT Alkaline Phosphatase Troponin I < 0.02 Total Protein Albumin Globulin Albumin/Globulin Ratio Triglycerides Cholesterol LDL Cholesterol VLDL Cholesterol HDL Cholesterol 01/10/18 09:12 WBC RBC Hgb Hct MCV MCH MCHC RDW RDW Differential Plt Count MPV Immature Gran % (Auto) Neut % (Auto) Lymph % (Auto) Spalding % (Auto) Eos % (Auto) Baso % (Auto) Absolute Neuts (auto) Absolute Lymphs (auto) Total Counted PT INR APTT Sodium Potassium Chloride Carbon Dioxide Anion Gap BUN Creatinine Estim Creat Clear Calc Est GFR (MDRD) Af Amer Est GFR (MDRD) Non-Af BUN/Creatinine Ratio Glucose Hemoglobin A1c Calcium Total Bilirubin AST ALT Alkaline Phosphatase Troponin I < 0.02 Total Protein Albumin Globulin Albumin/Globulin Ratio Triglycerides Cholesterol LDL Cholesterol VLDL Cholesterol HDL Cholesterol POC Glucose 01/10/18 01/10/18 01/09/18 11:24 05:54 22:40 POC Glucose 360 H 314 H 236 H Medical Necessity - Tobacco Use Smoking Status: Former smoker Assessment/Plan Patient is a 62-year-old female admitted 01/09/18 due to chest pain. She had a recent admission 11/29/17 for chest pain as well in which cardiac workup was unremarkable. Her past medical history includes type 2 diabetes mellitus, hypertension, hyperlipidemia, coronary artery disease, COPD, anxiety, depression , GERD and history of tobacco use. 1. Chest pain-ACS ruled out. Troponin negative ?4. Chest x-ray unremarkable. Patient underwent nuclear stress test which was negative for ischemia. Patient complains of epigastric burning intermittently and following meals. Obtain upper GI given recurrent admissions with chest pain. Suspect recurrent pain related to GERD. 2. Nausea, vomiting-etiology unclear. Denies abdominal pain. Denies diarrhea. Continue IV antiemetics. Upper GI/barium swallow as noted above. 3. Type 2 diabetes mellitus, poorly controlled-continue home insulin regimen of Levemir 40 units twice daily and NovoLog 10 units 3 times daily before meals. Add sliding scale insulin. Accu-Cheks before meals at bedtime. Hemoglobin A1c 13.7%. Recent admission 11/28/2017 hemoglobin A1c 13.8%. Patient was to follow- up outpatient with [facility] and has not followed. 4. Hypertension-stable, continue home regimen of Lasix, Imdur, lisinopril, metoprolol. 5. Hyperlipidemia-continue statin. 6. CAD-Patient had cardiac catheterization in September 2017 which showed widely patent LAD stents, nonobstructive ostial diagonal disease, results were similar from previous PCI in March 2017. Patient follows with Dr. Quesada as outpatient. Continue aspirin, Plavix, statin, beta-elder, nitrate. 7. COPD-no acute exacerbation. Not on home regimen. Albuterol as needed for shortness of breath. 8. Anxiety/depression-continue home sertraline regimen. 9. History of tobacco use-encouraged continued cessation. States she quit approximately 9 months ago. 10. GERD-patient on famotidine regimen at home. Switch to PPI to assess if improvement with epigastric pain. DVT prophylaxis-Lovenox subcu. This patient was seen by MAMI Barnes under the supervision of Dr. Sewell.
[2018-01-10] MEDS: proMETHazine 25 MG/ML Syringe 6.25 MG IV ×2 (12:50→20:42)
[2018-01-10 16:51] LABS: Bedside Glucose 178 mg/dL (70-110)
[2018-01-10] MEDS: Atorvastatin Calcium 20 MG Tablet PO (22:00)
[2018-01-10] MEDS: traZODone 50 MG Tablet PO (22:00)
--- NOTE | 2018-01-10 22:22 | CPS ---
pt just wants to use supplemental o2 tonite, she is unable to tolerate hospital cpap
[2018-01-10 23:46] LABS: Bedside Glucose 229 mg/dL (70-110)
[2018-01-11] VITALS (9 sets, daily range): BP systolic 101–106; BP diastolic 53–66; PULSE 69–94; RESP 14–16; TEMP 36.6–37.3; O2SAT 93–98
[2018-01-11] MEDS: Enoxaparin 40 MG/0.4 ML Syringe SC (05:21)
[2018-01-11 07:01] LABS: Bedside Glucose 121 mg/dL (70-110)
--- NOTE | 2018-01-11 08:30 | RAD_ITS ---
STUDY: AIR-CONTRAST UPPER GI SERIES. REASON FOR EXAM: Female, 62 years old. Epigastric pain. Postprandial vomiting. FLUOROSCOPY TIME (if supplied): (0:36) minutes/seconds TECHNIQUE: The patient ingested barium. Multiple images of the esophagus, stomach and duodenum were obtained. COMPARISON: None. FINDINGS: The esophagus is unremarkable. There is no evidence of esophageal obstruction. No mass lesion is seen. The patient ingested a 12 mm tablet at bedtime without any difficulty. The stomach is unremarkable. No evidence of ulceration. No mass lesion is seen. RAD/Upper GI Series Only IMPRESSION: Unremarkable air contrast upper GI series. Electronically Signed: Uriah Weathers MD at 10:09 EDT Tel [phone], Service support ,
[2018-01-11] MEDS: Dicyclomine 10 MG Capsule PO (09:23)
[2018-01-11] MEDS: Sertraline 50 MG Tablet PO (09:23)
[2018-01-11] MEDS: Metoprolol Tartrate 25 MG Tablet PO (09:23)
[2018-01-11] MEDS: Furosemide 40 MG Tablet PO (09:23)
[2018-01-11] MEDS: Aspirin E.C. 81 MG Tablet PO (09:23)
[2018-01-11] MEDS: Lisinopril 5 MG Tablet PO (09:23)
[2018-01-11] MEDS: Isosorbide Mononitrate 30 MG Tablet PO (09:23)
[2018-01-11] MEDS: Clopidogrel Bisulfate 75 MG Tablet PO (09:23)
[2018-01-11] MEDS: Pantoprazole Sodium 40 MG Tablet PO (09:24)
--- NOTE | 2018-01-11 10:08 | EKG12_ITS ---
Test Reason : CHEST PAIN Blood Pressure : / mmHG Vent. Rate : 068 BPM Atrial Rate : 068 BPM P-R Int : 162 ms QRS Dur : 072 ms QT Int : 440 ms P-R-T Axes : 056 026 035 degrees QTc Int : 467 ms Normal sinus rhythm Normal ECG When compared with ECG of 10-JAN-2018 05:12, MANUAL COMPARISON REQUIRED, DATA IS UNCONFIRMED Confirmed by ADRIAN BARFIELD, DAVID ([id number]), offline editor ARON HASKINS ([id number]) on 01/17/2018 9:17:02 AM Referred By: YARI Confirmed By:DAVID CAMPBELL MD
[2018-01-11 11:06] LABS: Bedside Glucose 84 mg/dL (70-110)
--- NOTE | 2018-01-11 17:23 | PCM.DC ---
You will use the following diet at home:: Calorie/Carbohydrate Controlled (specify 1200, 1400, etc), Cardiac, Other - no caffeine, peppermints, chocolate - these things all increase reflux and I think the pain in the chest may be due to reflux of acid from the stomach into the esophagus Your food should be the consistency of: Regular Your liquids should be the consistency of: Regular/Thin Discharge Activity: Return to Normal Activity Call your doctor if you observe: Fever of 101 or Higher, Shortness of breath, Dizziness, Fainting spells, Swelling in the ankles, Chest pain, - - recurrent nausea or vomiting Instructions: What Is GERD?, Lifestyle Changes for Controlling GERD, Medications for GERD, Tips to Control Acid Reflux Additional Instructions: The stress test was negative. I think the pain in the chest may be coming from reflux. I changed the Famotidine to another medication to control reflux called Protonix, also known as pantoprazole. Since starting this medication your chest pain has resolved and you no longer have nausea or vomiting. I have given you a prescription for Protonix/pantoprazole and you will take it once daily for the next month to see if this helps. There are certain activities and foods that can make reflux worse. You should stop smoking because this not only increases your risk of recurrent coronary artery disease but it does cause reflux. Chocolate, peppermints and caffeine all increase reflux as well. I have given you some literature to read about tips to control reflux. Pending Tests on Discharge: none Allergies/Adverse Reactions: Allergies Penicillins Allergy (Verified 01/09/18 22:21) Hives hydrocodone bitartrate [From Vicodin] Adverse Reaction (Verified 01/09/18 22:21) Vomiting ibuprofen Adverse Reaction (Verified 01/09/18 22:21) Vomiting Medications to take at Discharge Lisinopril [Zestril] 5 mg PO DAILY 08/17/15 Aspirin [Adult Low Dose Aspirin EC] 81 mg PO DAILY 02/04/16 Furosemide [Lasix] 40 mg PO DAILY 02/04/16 Dicyclomine HCl [Bentyl] 10 mg PO DAILY 01/24/17 Simvastatin [Zocor] 40 mg PO QHS 01/24/17 Clopidogrel Bisulfate [Plavix] 75 mg PO DAILY 06/23/17 Metoprolol Tartrate [Lopressor (beta elder)] 25 mg PO BID 06/23/17 Trazodone HCl 50 mg PO QHS 06/23/17 Nitroglycerin [Nitrostat] 0.4 mg SUBLINGUAL Q5M PRN 09/28/17 Isosorbide Mononitrate [Imdur] 30 mg PO DAILY 11/23/17 Insulin Aspart [Novolog Flexpen] 10 units SC TIDCM #0 11/29/17 Insulin Detemir [Levemir FlexPen] 40 units SC BID #0 11/29/17 Sertraline HCl [Zoloft] 50 mg PO DAILY #30 tab 11/29/17 Nystatin 500,000 unit PO 4X/DAY #40 udc 01/02/18 Ondansetron [Zofran Odt] 4 mg PO Q8H PRN PRN #10 tab 01/02/18 Pantoprazole Sodium [Protonix] 40 mg PO DAILY #30 tab 01/11/18 The following prescriptions were given: Pantoprazole Sodium [Protonix] 40 mg PO DAILY #30 tab Primary Care Physician: Nadira Sifuentes PM HEAD COOK-C [Primary Care Provider] - Please follow up with your Primary Care Physician in: 1-2 weeks Proposed Discharge Date: 01/11/18
--- NOTE | 2018-01-11 17:34 | DCINST_ITS ---
You will use the following diet at home:: Calorie/Carbohydrate Controlled ( specify 1200, 1400, etc), Cardiac, Other - no caffeine, peppermints, chocolate - these things all increase reflux and I think the pain in the chest may be due to reflux of acid from the stomach into the esophagus Your food should be the consistency of: Regular Your liquids should be the consistency of: Regular/Thin Discharge Activity: Return to Normal Activity Call your doctor if you observe: Fever of 101 or Higher, Shortness of breath, Dizziness, Fainting spells, Swelling in the ankles, Chest pain, - - recurrent nausea or vomiting Instructions: What Is GERD?, Lifestyle Changes for Controlling GERD, Medications for GERD, Tips to Control Acid Reflux Additional Instructions: The stress test was negative. I think the pain in the chest may be coming from reflux. I changed the Famotidine to another medication to control reflux called Protonix, also known as pantoprazole. Since starting this medication your chest pain has resolved and you no longer have nausea or vomiting. I have given you a prescription for Protonix/ pantoprazole and you will take it once daily for the next month to see if this helps. There are certain activities and foods that can make reflux worse. You should stop smoking because this not only increases your risk of recurrent coronary artery disease but it does cause reflux. Chocolate, peppermints and caffeine all increase reflux as well. I have given you some literature to read about tips to control reflux. Pending Tests on Discharge: none Allergies/Adverse Reactions: Allergies Penicillins Allergy (Verified 01/09/18 22:21) Hives hydrocodone bitartrate [From Vicodin] Adverse Reaction (Verified 01/09/18 22:21) Vomiting ibuprofen Adverse Reaction (Verified 01/09/18 22:21) Vomiting Medications to take at Discharge Lisinopril [Zestril] 5 mg PO DAILY 08/17/15 Aspirin [Adult Low Dose Aspirin EC] 81 mg PO DAILY 02/04/16 Furosemide [Lasix] 40 mg PO DAILY 02/04/16 Dicyclomine HCl [Bentyl] 10 mg PO DAILY 01/24/17 Simvastatin [Zocor] 40 mg PO QHS 01/24/17 Clopidogrel Bisulfate [Plavix] 75 mg PO DAILY 06/23/17 Metoprolol Tartrate [Lopressor (beta elder)] 25 mg PO BID 06/23/17 Trazodone HCl 50 mg PO QHS 06/23/17 Nitroglycerin [Nitrostat] 0.4 mg SUBLINGUAL Q5M PRN 09/28/17 Isosorbide Mononitrate [Imdur] 30 mg PO DAILY 11/23/17 Insulin Aspart [Novolog Flexpen] 10 units SC TIDCM #0 11/29/17 Insulin Detemir [Levemir FlexPen] 40 units SC BID #0 11/29/17 Sertraline HCl [Zoloft] 50 mg PO DAILY #30 tab 11/29/17 Nystatin 500,000 unit PO 4X/DAY #40 udc 01/02/18 Ondansetron [Zofran Odt] 4 mg PO Q8H PRN PRN #10 tab 01/02/18 Pantoprazole Sodium [Protonix] 40 mg PO DAILY #30 tab 01/11/18 The following prescriptions were given: Pantoprazole Sodium [Protonix] 40 mg PO DAILY #30 tab Primary Care Physician: Nadira Sifuentes ORDER PACKER-C [Primary Care Provider] - Please follow up with your Primary Care Physician in: 1-2 weeks Proposed Discharge Date: 01/11/18
--- NOTE | 2018-01-11 17:35 | PCM.DC.SUM ---
Discharge Date and Diagnosis Date of Admission: 01/09/18 Date of Discharge: 01/11/18 - Primary Discharge Diagnosis Active and Suspected Problems Non-cardiac Chest pain GERD (gastroesophageal reflux disease) (Suspected) - Secondary Discharge Diagnosis Chronic Problems Uncontrolled type 2 diabetes mellitus (Chronic) - HGBA1C is 13.7 Benign essential hypertension (Chronic) Hyperlipidemia (Chronic) - controlled Coronary artery disease (Chronic) ROMEL LAD 01/21 COPD (chronic obstructive pulmonary disease) (Chronic) Tobacco abuse (Chronic) NSTEMI (non-ST elevated myocardial infarction) (Chronic) Hospital Course and Treatment Imaging Results: Clinical Impression(s) from Imaging Studies Chest X-Ray 01/09/18 19:30 IMPRESSION: Stable examination without radiographic evidence of acute intrathoracic disease. at 1950 Reported and signed by: Eli Silver MD Electronically Signed: Eli Silver MD at 18:48 EDT Tel , Service support , Upper GI Series 01/11/18 08:30 IMPRESSION: Unremarkable air contrast upper GI series. Electronically Signed: Uriah Weathers MD at 10:09 EDT Tel [phone], Service support , none Operations: None Procedures: Nuclear stress test Summary of Care Provided: Patient is a 62-year-old female with a past medical history of coronary artery disease with PTCA/ROMEL in the past, tobacco dependence, COPD, hyperlipidemia, hypertension and uncontrolled type 2 diabetes mellitus. She presented to the emergency department at [facility] on 01/09/2018 complaining of chest pain. EKG showed no suspicious ST or T-wave changes and the initial troponin was within normal limits. She was admitted to a monitored bed on PCU and serial cardiac enzymes were obtained and were negative. Stress test was performed and was negative for ischemia. Gated nuclear ejection fraction on the stress test was 80%. He continued to complain of chest discomfort and was kept in the hospital for an upper GI with esophagram. The esophagus was unremarkable and there was no evidence of esophageal obstruction or mass lesion. Stomach was unremarkable and there was no evidence of ulceration. He was discharged home on 01/11/2018 and given a prescription for Protonix 40 mg daily for suspected gastroesophageal reflux disease. She will follow-up with her PCP in 1-2 weeks. This note was generated with [employer] dictation software. It may contain incorrect words, spelling, and punctuation that were not noted in checking the note before signing. Discharge Activity: Return to Normal Activity Call your doctor if you observe: Fever of 101 or Higher, Shortness of breath, Dizziness, Fainting spells, Swelling in the ankles, Chest pain, - - recurrent nausea or vomiting Home Medications: Medications to take at Discharge Lisinopril [Zestril] 5 mg PO DAILY 08/17/15 Aspirin [Adult Low Dose Aspirin EC] 81 mg PO DAILY 02/04/16 Furosemide [Lasix] 40 mg PO DAILY 02/04/16 Dicyclomine HCl [Bentyl] 10 mg PO DAILY 01/24/17 Simvastatin [Zocor] 40 mg PO QHS 01/24/17 Clopidogrel Bisulfate [Plavix] 75 mg PO DAILY 06/23/17 Metoprolol Tartrate [Lopressor (beta elder)] 25 mg PO BID 06/23/17 Trazodone HCl 50 mg PO QHS 06/23/17 Nitroglycerin [Nitrostat] 0.4 mg SUBLINGUAL Q5M PRN 09/28/17 Isosorbide Mononitrate [Imdur] 30 mg PO DAILY 11/23/17 Insulin Aspart [Novolog Flexpen] 10 units SC TIDCM #0 11/29/17 Insulin Detemir [Levemir FlexPen] 40 units SC BID #0 11/29/17 Sertraline HCl [Zoloft] 50 mg PO DAILY #30 tab 11/29/17 Nystatin 500,000 unit PO 4X/DAY #40 udc 01/02/18 Ondansetron [Zofran Odt] 4 mg PO Q8H PRN PRN #10 tab 01/02/18 Pantoprazole Sodium [Protonix] 40 mg PO DAILY #30 tab 01/11/18 Following Prescrptions Were Given to Patient: Pantoprazole Sodium [Protonix] 40 mg PO DAILY #30 tab Primary Care Physician: Nadira Sifuentes NP-C [Primary Care Provider] - Please follow up with your Primary Care Physician in: 1-2 weeks Patient Instructions: What Is GERD?, Lifestyle Changes for Controlling GERD, Medications for GERD, Tips to Control Acid Reflux Disposition: Home Minutes spent on discharge:: 30 Medical Necessity - Tobacco Use Smoking Status: Former smoker Meaningful Use Info Meaningful Use Diagnoses (Choose all that apply): None applicable Code Visit OBSV E&M: 34513 Observation care discharge
== END 2018-01-11 17:32 | disposition home or self-care (01) ==
LOC: ED 19:38 → PCU 21:26
PROVIDERS: Admitting Provider Family Medicine; Emergency Provider Emergency Medicine; Family Provider Nurse Practitioner Family; PCP Nurse Practitioner Family; Visit Provider Internal Medicine
DX: R07.89 Other chest pain (principal); I10 Essential (primary) hypertension; I25.2 Old myocardial infarction; R11.2 Nausea with vomiting, unspecified; R06.02 Shortness of breath; Z82.49 Family history of ischemic heart disease and other diseases of the circulatory system; E78.5 Hyperlipidemia, unspecified; I25.10 Atherosclerotic heart disease of native coronary artery without angina pectoris; J44.9 Chronic obstructive pulmonary disease, unspecified; Z95.5 Presence of coronary angioplasty implant and graft; Z79.4 Long term (current) use of insulin; Z79.82 Long term (current) use of aspirin; Z79.899 Other long term (current) drug therapy; Z79.02 Long term (current) use of antithrombotics/antiplatelets; K21.9 Gastro-esophageal reflux disease without esophagitis; Z87.891 Personal history of nicotine dependence; F41.9 Anxiety disorder, unspecified; F32.9 Major depressive disorder, single episode, unspecified; Z23 Encounter for immunization
CPT/HCPCS: 36415; 71045; 74246; 78452; 80048; 80053; 80061; 82962; 83036; 84484; 85025; 85610; 85730; 87804; 93005; 93017; 96372; 96374; 96375; 96376; 99218; 99285; 99406; A9500; 90686; A4216; G0378; J2405; J2785

== ENCOUNTER 2018-02-18 18:59 | Emergency (ER) | payer SELFPAY ==
[2017-03-16 08:30] VITALS: BMI 29.2
[2018-02-18] VITALS (7 sets, daily range): BP systolic 118–149; BP diastolic 67–76; PULSE 73–80; RESP 12–20; TEMP 37.3; O2SAT 95–100; BMI 26.5
--- NOTE | 2018-02-18 19:23 | EKG12_ITS ---
Test Reason : REPEAT Blood Pressure : / mmHG Vent. Rate : 074 BPM Atrial Rate : 074 BPM P-R Int : 152 ms QRS Dur : 076 ms QT Int : 420 ms P-R-T Axes : 033 015 027 degrees QTc Int : 466 ms Normal sinus rhythm Normal ECG Confirmed by DAVID CAMPBELL MD ([id number]), magazine editor ARON HASKINS ([id number]) on 02/21/2018 1:15:18 PM Referred By: ANTHONY Confirmed By:DAVID CAMPBELL MD
--- NOTE | 2018-02-18 19:23 | RAD_ITS ---
STUDY: X-RAY CHEST REASON FOR EXAM: Female, 62 years old. CHEST PAIN TECHNIQUE: Frontal and lateral views of the chest. COMPARISON: January 09, 2018 FINDINGS: Chronic appearing increased interstitial lung markings. There is no demonstrated pleural abnormality. Normal heart size. Normal mediastinum and jovan. Normal visualized pulmonary arteries. There is atherosclerotic calcification of the aortic arch with tortuosity. There are diffuse degenerative changes of the visualized thoracic spine. There is degenerative osteoarthritis of the bilateral shoulders. There is no demonstrated abnormality of the visualized soft tissue structures of the upper abdomen. RAD/Chest PA and Lateral IMPRESSION: There are no acute findings. Electronically Signed: Jorge Quintanilla MD at 21:07 EDT , Service support ,
[2018-02-18 19:34] LABS: Absolute Lymphocyte Count 2.67 X10^3/ul (0.83-4.51); Absolute Neutrophil Count 3.1 X10^3/uL (2.0-7.7); Basophil# 0.02 X10^3/uL; Basophil% 0.3 % (0-1); Eosinophil# 0.15 X10^3/uL; Eosinophils% 2.3 % (0-5); Hemoglobin 13.5 g/dl (12.0-15.0); Lymphocyte # 2.67 X10^3/ul (4.0); Lymphocyte % 41.5 % (19-41); Mean Corp Hgb Conc 33.8 g/gl (32-36); Mean Corpuscular Hgb 30.8 pg (27.0-32.0); Mean Corpuscular Volume 91.3 fL (81-99); Mean Platelet Vol. 11.1 fl (6.2-12.0); Monocyte# 0.44 X10^3/uL; Monocyte% 6.8 % (0-10); Neutrophil # 3.14 X10^3/uL (2.7-7.7); Neutrophil % 48.8 % (47-70); Platelet Count 204 K/mm3 (150-450); RBC Distribution Width CV 12.8 % (11.6-14.6); RBC Distribution Width SD 42.4 fl (35.1-43.9); Red Blood Count 4.38 M/mm3 (4.2-5.4); White Blood Count 6.4 K/mm3 (4.4-11.0)
[2018-02-18 19:35] LABS: POSITIVE COUNT NO; POSITIVE DIFFERENTIAL NO; POSITIVE MORPHOLOGY NO
[2018-02-18] MEDS: Aspirin 81 MG TAB.CHEW 324 MG PO (19:35)
[2018-02-18] MEDS: fentaNYL 100 MCG/2 ML Ampul 50 MCG IV (19:41)
--- NOTE | 2018-02-18 19:41 | ED.RN ---
PT REFUSES NITRO. STATES SHE HAS HEADACHE FROM THE DOSE SHE TOOK AT HOME.
[2018-02-18 19:50] LABS: Anion Gap 11 (5-15); BUN 9 mg/dL (7-18); BUN/Creat Ratio 9.4 RATIO (10-20); Chloride 102 mmol/L (98-107); Creatinine, Serum 0.96 mg/dL (0.55-1.02); EST Glomerular Filtration Rate 62 mL/min (>60); Est Glom Filt Rate - Afr Amer 75 mL/min (>60); Estimated Creatinine Clearance 48.97 ml/min; Glucose 448 mg/dL (74-106); Potassium 4.3 mmol/L (3.5-5.1); Sodium Level 137 mmol/L (136-145)
[2018-02-18 20:45] LABS: International Normalized Ratio 0.9; Prothrombin Time (Protime)PT. 12.1 SECONDS (11.7-14.9)
--- NOTE | 2018-02-18 21:43 | EKG12_ITS ---
Test Reason : CP Blood Pressure : / mmHG Vent. Rate : 078 BPM Atrial Rate : 078 BPM P-R Int : 160 ms QRS Dur : 068 ms QT Int : 394 ms P-R-T Axes : 044 020 022 degrees QTc Int : 449 ms Normal sinus rhythm Normal ECG Confirmed by ADRIAN BARFIELD, DAVID ([id number]), film and video editor ARON HASKINS ([id number]) on 02/21/2018 1:15:32 PM Referred By: ANTHONY Confirmed By:DAVID CAMPBELL MD
[2018-02-18] MEDS: amLODIPine 2.5 MG Tablet PO (22:13)
--- NOTE | 2018-02-18 22:53 | ED.VISSUMM ---
- ER Visit Summary Date of Service: 02/18/18 Chief Complaint: [] Chest pain History of Present Illness: The patient is a 62 F [] complaining of chest pain beginning approximately 4:45 PM today (2-3 hours prior to arrival). Patient has a history of coronary artery disease with 4 cardiac stents. She reports she is a patient of Dr. Quesada. When questioned about her recent cardiac history her family member reported she had a negative stress test January 20, 2018. She reports the symptoms awoke her from sleep and she describes them as midsternal with slight radiation to her left upper extremity. Reports slight nausea, denies vomiting. She reports the nitroglycerin she took prior to arrival helped her symptoms however gave her headache. No other complaints at this time. Physical Examination: [] Afebrile, vital signs stable. 62-year-old female no acute distress. Cardiovascular exam is regular rate and rhythm. Lungs are clear to auscultation. Abdomen is soft and nontender. No lower extremity edema. Test Results: [] Chest x-ray 2 views negative. EKG #1 shows normal sinus rhythm, rate of 78 without ectopy or ischemic changes. CBC, BMP, troponin #1 negative. Repeat EKG: Normal sinus rhythm, rate of 74 without ectopy or ischemic changes. Troponin #2 negative at less than 0.015. Emergency Department Course and Treatment: [] Patient worked up for chest pain. First round of evaluation was negative. In review of the patient's labs and recent procedures she did have a negative cardiac catheterization approximately 5-6 months ago. Negative stress test 1 month ago. I discussed the patient's evaluation and diagnostic and laboratory findings with Dr. Torres, of cardiology. He suggested a delta troponin evaluation which returned negative. Patient be discharged to follow-up with her physician. Treatment Plan: [] Discharged with instructions to return if symptoms worsen. Disposition: [] Discharge, stable. Impression: [] Chest pain, unknown etiology This note was generated with [employer] dictation software. It may contain incorrect words, spelling, and punctuation that were not noted in review of the chart prior to signing ED Disposition - Plan for ED Patient: Chief Complaint: Chest Pain Referrals: Nadira Sifuentes, CORPORATE TRAINING MANAGER-C [Primary Care Provider] -
--- NOTE | 2018-02-18 22:59 | ED.DCSUM_ITS ---
- ER Visit Summary Date of Service: 02/18/18 Chief Complaint: [] Chest pain History of Present Illness: The patient is a 62 F [] complaining of chest pain beginning approximately 4:45 PM today (2-3 hours prior to arrival). Patient has a history of coronary artery disease with 4 cardiac stents. She reports she is a patient of Dr. Quesada. When questioned about her recent cardiac history her family member reported she had a negative stress test January 20, 2018. She reports the symptoms awoke her from sleep and she describes them as midsternal with slight radiation to her left upper extremity. Reports slight nausea, denies vomiting. She reports the nitroglycerin she took prior to arrival helped her symptoms however gave her headache. No other complaints at this time. Physical Examination: [] Afebrile, vital signs stable. 62-year-old female no acute distress. Cardiovascular exam is regular rate and rhythm. Lungs are clear to auscultation. Abdomen is soft and nontender. No lower extremity edema. Test Results: [] Chest x-ray 2 views negative. EKG #1 shows normal sinus rhythm, rate of 78 without ectopy or ischemic changes. CBC, BMP, troponin #1 negative. Repeat EKG: Normal sinus rhythm, rate of 74 without ectopy or ischemic changes. Troponin #2 negative at less than 0.015. Emergency Department Course and Treatment: [] Patient worked up for chest pain. First round of evaluation was negative. In review of the patient's labs and recent procedures she did have a negative cardiac catheterization approximately 5-6 months ago. Negative stress test 1 month ago. I discussed the patient's evaluation and diagnostic and laboratory findings with Dr. Torres, of cardiology. He suggested a delta troponin evaluation which returned negative. Patient be discharged to follow-up with her physician. Treatment Plan: [] Discharged with instructions to return if symptoms worsen. Disposition: [] Discharge, stable. Impression: [] Chest pain, unknown etiology This note was generated with [employer] dictation software. It may contain incorrect words, spelling, and punctuation that were not noted in review of the chart prior to signing ED Disposition - Plan for ED Patient: Chief Complaint: Chest Pain Referrals: Nadira Sifuentes, SEWER BRICKLAYER-C [Primary Care Provider] -
--- NOTE | 2018-02-18 22:59 | ED.DEP ---
ED Disposition - Plan for ED Patient: Disposition: Home or Assisted Living Chief Complaint: Chest Pain Instructions: ED Chest Pain [facility] Referrals: Nadira Sifuentes NP-C [Primary Care Provider] -
== END 2018-02-18 23:00 | disposition home or self-care (01) ==
PROVIDERS: Emergency Provider Emergency Medicine; Family Provider Nurse Practitioner Family; PCP Nurse Practitioner Family
DX: R07.9 Chest pain, unspecified (principal); R11.0 Nausea; I25.10 Atherosclerotic heart disease of native coronary artery without angina pectoris; J44.9 Chronic obstructive pulmonary disease, unspecified; E11.9 Type 2 diabetes mellitus without complications; I10 Essential (primary) hypertension; E78.00 Pure hypercholesterolemia, unspecified; Z95.5 Presence of coronary angioplasty implant and graft; Z79.82 Long term (current) use of aspirin; Z79.4 Long term (current) use of insulin; Z79.02 Long term (current) use of antithrombotics/antiplatelets; Z79.899 Other long term (current) drug therapy
CPT/HCPCS: 71046; 80048; 84484; 85025; 85610; 93005; 96374; 99285; A4216

== ENCOUNTER 2018-03-14 19:55 | Observation (INO) | payer SELFPAY ==
[2017-03-16 08:30] VITALS: BMI 29.2
--- NOTE | 2018-03-14 11:20 | EKG12_ITS ---
Test Reason : REPEAT Blood Pressure : / mmHG Vent. Rate : 070 BPM Atrial Rate : 070 BPM P-R Int : 160 ms QRS Dur : 082 ms QT Int : 442 ms P-R-T Axes : 046 018 030 degrees QTc Int : 477 ms Normal sinus rhythm Normal ECG Confirmed by ADRIAN BARFIELD, DAVID ([id number]), greeting card editor ARON HASKINS ([id number]) on 03/22/2018 6:19:22 PM Referred By: DEDE Confirmed By:DAVID CAMPBELL MD
--- NOTE | 2018-03-14 11:21 | EKG12_ITS ---
Test Reason : CP Blood Pressure : / mmHG Vent. Rate : 080 BPM Atrial Rate : 080 BPM P-R Int : 148 ms QRS Dur : 068 ms QT Int : 406 ms P-R-T Axes : 045 030 020 degrees QTc Int : 468 ms Normal sinus rhythm Nonspecific ST abnormality Abnormal ECG Confirmed by ADRIAN BARFIELD, DAVID ([id number]), editor house organ ARON HASKINS ([id number]) on 03/22/2018 6:19:42 PM Referred By: AIDEN Confirmed By:DAVID CAMPBELL MD
--- NOTE | 2018-03-14 20:38 | RAD_ITS ---
STUDY: X-RAY CHEST REASON FOR EXAM: Female, 62 years old. Chest pain and cough TECHNIQUE: Single AP portable view of the chest. COMPARISON: 02/18/2018 FINDINGS: EKG leads overlie the chest There are interstitial fibrotic changes of the lungs. There is no demonstrated pleural abnormality. Normal size heart. Normal mediastinum and jovan. Normal visualized pulmonary arteries. Normal visualized aortic arch and descending thoracic aorta. Normal visualized thoracic spine. Normal visualized ribs, clavicles, and shoulders. There is no demonstrated abnormality of the visualized soft tissue structures of the upper abdomen. RAD/Chest 1 View (Portable) IMPRESSION: Chronic interstitial changes, no superimposed acute pulmonary process Electronically Signed: Trenton Sanchez MD at 14:13 EDT , Service support ,
--- NOTE | 2018-03-14 23:25 | DT_ITS ---
This patient was seen during an EMR downtime March 13, 2018 - March 20, 2018. This patient may have a combination of paper and electronic documentation or all paper documentation. All documentation is viewable within the e-chart portion of [employer] for each patient visit.
--- NOTE | 2018-03-15 11:22 | EKG12_ITS ---
Test Reason : AM EKG Blood Pressure : / mmHG Vent. Rate : 072 BPM Atrial Rate : 072 BPM P-R Int : 148 ms QRS Dur : 086 ms QT Int : 458 ms P-R-T Axes : 067 039 045 degrees QTc Int : 501 ms Normal sinus rhythm Prolonged QT Abnormal ECG Confirmed by HENRY BARFIELD, DAYANA ([id number]), manager editorial ARON HASKINS ([id number]) on 03/24/2018 1:56:14 PM Referred By: DR TSANG Confirmed By:DAYANA FIGUEROA MD
--- NOTE | 2018-03-16 08:55 | STE_ITS ---
Reason For Study: CHEST PAIN Stress Results Protocol: Modified Richy Protocol Maximum Predicted HR: 156 bpm Target HR: 133 bpm% Maximum Pred icted HR: 65 % DurationHeart Rate Stage (mm:ss) (bpm) BP BASELINE 74 115/66 STAGE 1 3:00 92 128/60 STAGE 2 3:00 10 1 132/60 RECOVERY 76 108/54 Stress Duration: 6:00 mm:ss Maximum Stress HR: 101 bpm Baseline Echocardiogram Findings The estimated ejection fraction is 65 %. Stress Echo Wall motion Data Resting WMIntermediate WMStress WM Resting Wall Motion Wall Motion Stress No regional wall motion No regional wall motion abnormalities noted. abnormalities noted. EKG Data The baseline ECG displays normal sinus rhythm. NSR, None. Patient Safety Reason for termination: Dyspnea, leg pain. Interpretation Summary 1) Normal Adequate Treadmill echo by rate pressure product 2) No anginal symptoms 3) Normal BP response to exercise 4) Poor exercise capacity for age 5) Final LVEF=85% The estimated ejection fraction is 65 %. Ordering Physician: Buck Naylor DO Referring Physician: Buck Naylor DO Performed By: Dany Rodriguez RCS
--- NOTE | 2018-03-16 11:23 | EKG12_ITS ---
Test Reason : CP ADMIT Blood Pressure : / mmHG Vent. Rate : 069 BPM Atrial Rate : 069 BPM P-R Int : 150 ms QRS Dur : 086 ms QT Int : 444 ms P-R-T Axes : 044 027 040 degrees QTc Int : 475 ms Sinus rhythm with Premature atrial complexes Otherwise normal ECG Confirmed by HENRY BARFIELD, DAYANA ([id number]), primer expeditor and drier ARON HASKINS ([id number]) on 03/24/2018 1:58:29 PM Referred By: DR TSANG Confirmed By:DAYANA FIGUEROA MD
[2018-03-16 21:14] LABS: BUN 15 mg/dL (7-18)
[2018-03-16 21:15] LABS: Anion Gap 8 (5-15); BUN/Creat Ratio 15.5 RATIO (10-20); Calcium,Total 9.2 mg/dL (8.5-10.1); Chloride 99 mmol/L (98-107); Creatinine, Serum 0.97 mg/dL (0.55-1.02); EST Glomerular Filtration Rate 61 mL/min (>60); Est Glom Filt Rate - Afr Amer 74 mL/min (>60); Potassium 3.7 mmol/L (3.5-5.1); Sodium Level 133 mmol/L (136-145)
[2018-03-16 21:16] LABS: Glucose 474 mg/dL (74-106)
[2018-03-17 10:07] LABS: Hemoglobin 14.5 g/dl (12.0-15.0); Red Blood Count 4.64 M/mm3 (4.2-5.4); White Blood Count 7.9 K/mm3 (4.4-11.0)
[2018-03-17 10:08] LABS: Absolute Lymphocyte Count 3.78 X10^3/ul (0.83-4.51); Absolute Neutrophil Count 3.3 X10^3/uL (2.0-7.7); Basophil% 0.3 % (0-1); Eosinophil# 0.28 X10^3/uL; Eosinophils% 3.5 % (0-5); Hematocrit 41.6 % (37-47); Lymphocyte # 3.78 X10^3/ul (4.0); Lymphocyte % 47.6 % (19-41); Mean Corp Hgb Conc 34.9 g/gl (32-36); Mean Corpuscular Hgb 31.3 pg (27.0-32.0); Mean Corpuscular Volume 89.7 fL (81-99); Mean Platelet Vol. 11.6 fl (6.2-12.0); Monocyte# 0.58 X10^3/uL; Monocyte% 7.3 % (0-10); Neutrophil # 3.27 X10^3/uL (2.7-7.7); Neutrophil % 41.2 % (47-70); POSITIVE COUNT NO; POSITIVE DIFFERENTIAL NO; POSITIVE MORPHOLOGY NO; Platelet Count 229 K/mm3 (150-450); RBC Distribution Width CV 12.4 % (11.6-14.6); RBC Distribution Width SD 40.4 fl (35.1-43.9)
[2018-03-17 10:09] LABS: Basophil# 0.02 X10^3/uL
[2018-03-18 08:55] LABS: Hematocrit 38.7 % (37-47); Hemoglobin 13.4 g/dl (12.0-15.0); Mean Corp Hgb Conc 34.6 g/gl (32-36); Mean Corpuscular Hgb 31.5 pg (27.0-32.0); Mean Corpuscular Volume 90.8 fL (81-99); Red Blood Count 4.26 M/mm3 (4.2-5.4)
[2018-03-18 08:56] LABS: Mean Platelet Vol. 11.4 fl (6.2-12.0); Platelet Count 193 K/mm3 (150-450); RBC Distribution Width CV 12.1 % (11.6-14.6); RBC Distribution Width SD 39.4 fl (35.1-43.9); Scan Indicated on CBC? Y/N NO
[2018-03-18 09:35] LABS: Anion Gap 8 (5-15); BUN 15 mg/dL (7-18); BUN/Creat Ratio 20.5 RATIO (10-20); Calcium,Total 8.9 mg/dL (8.5-10.1); Chloride 108 mmol/L (98-107); Creatinine, Serum 0.73 mg/dL (0.55-1.02); EST Glomerular Filtration Rate 85 mL/min (>60); Est Glom Filt Rate - Afr Amer 103 mL/min (>60); Glucose 67 mg/dL (74-106); Magnesium 1.8 mg/dL (1.6-2.6); Potassium 3.4 mmol/L (3.5-5.1); Sodium Level 141 mmol/L (136-145)
[2018-03-18 09:53] LABS: Hemoglobin A1c 12.9 % (4.2-6.3)
[2018-03-18 10:52] LABS: International Normalized Ratio 0.9; Prothrombin Time (Protime)PT. 12.2 SECONDS (11.7-14.9)
[2018-03-18 15:26] LABS: Hematocrit 38.5 % (37-47); Hemoglobin 13.4 g/dl (12.0-15.0); Mean Corp Hgb Conc 34.8 g/gl (32-36); Mean Corpuscular Hgb 31.8 pg (27.0-32.0); Mean Corpuscular Volume 91.4 fL (81-99); Mean Platelet Vol. 11.4 fl (6.2-12.0); Platelet Count 176 K/mm3 (150-450); RBC Distribution Width SD 39.2 fl (35.1-43.9); Red Blood Count 4.21 M/mm3 (4.2-5.4); Scan Indicated on CBC? Y/N NO; White Blood Count 11.2 K/mm3 (4.4-11.0)
[2018-03-18 15:27] LABS: International Normalized Ratio 0.9; Partial Thromboplast Time 26.2 Seconds (24.1-36.2); Prothrombin Time (Protime)PT. 12.3 SECONDS (11.7-14.9)
[2018-03-23 16:10] LABS: Bedside Glucose 121 mg/dL (70-110)
[2018-03-23 16:13] LABS: Bedside Glucose 400 mg/dL (70-110)
[2018-03-23 16:15] LABS: Bedside Glucose 521 mg/dL (70-110)
[2018-03-23 16:18] LABS: Bedside Glucose 36 mg/dL (70-110)
[2018-03-23 16:21] LABS: Bedside Glucose 149 mg/dL (70-110)
[2018-03-23 16:25] LABS: Bedside Glucose 106 mg/dL (70-110)
[2018-03-24 11:16] LABS: Bedside Glucose 237 mg/dL (70-110)
[2018-03-24 11:18] LABS: Bedside Glucose 270 mg/dL (70-110)
[2018-04-03 07:36] LABS: Bedside Glucose 374 mg/dL (70-110)
[2018-04-03 07:37] LABS: Bedside Glucose 37 mg/dL (70-110)
[2018-04-03 07:39] LABS: Bedside Glucose 238 mg/dL (70-110)
[2018-04-03 07:40] LABS: Bedside Glucose 89 mg/dL (70-110)
== END 2018-03-16 11:15 | disposition home or self-care (01) ==
LOC: ED 03-15 15:45 → PCU 03-16 13:04
PROVIDERS: Admitting Provider Family Medicine; Family Provider Nurse Practitioner Family; PCP Nurse Practitioner Family; Visit Provider Family Medicine
DX: R07.89 Other chest pain (principal); I25.10 Atherosclerotic heart disease of native coronary artery without angina pectoris; E11.9 Type 2 diabetes mellitus without complications; I10 Essential (primary) hypertension; E78.5 Hyperlipidemia, unspecified; J44.9 Chronic obstructive pulmonary disease, unspecified; I25.2 Old myocardial infarction; Z95.5 Presence of coronary angioplasty implant and graft
CPT/HCPCS: 36415; 71045; 80048; 82962; 83036; 83735; 84484; 85025; 85027; 85610; 85730; 93005; 93017; 93350; 96361; 96372; 96374; 96375; 96376; 99218; J7030; A4216; G0378; J2405

== ENCOUNTER 2018-03-26 13:02 | Emergency (ER) | payer SELFPAY ==
[2017-03-16 08:30] VITALS: BMI 29.2
[2018-03-26 13:03] VITALS: BP 143/84; PULSE 90; RESP 14; TEMP 36.9; O2SAT 98; BMI 25.3
[2018-03-26] MEDS: Dextrose 50%-Water 25 GM/50 ML DISP.SYRIN IV (13:13)
--- NOTE | 2018-03-26 13:23 | ED.DCSUM_ITS ---
- ER Visit Summary Date of Service: 03/26/18 Chief Complaint: Low blood sugar History of Present Illness: The patient is a 62 F who presents with hypoglycemia. She was at [facility] and her blood sugar was 59. At that time she had a bologna and cheese sandwich and had potato salad and cookies. She still did not feel well so she came in. Her blood sugar was 15 here. She took her normal 43 units of Lantus last night and 34 units of Lantus this morning. She does not take any other insulin medications. Currently she feels nauseous. Physical Examination: Vital signs reviewed. HEENT exam unremarkable. Heart is regular rate and rhythm without murmurs. Lungs are clear to auscultation. Abdomen is soft and nontender. Extremities reveal no edema. Skin exam normal. Neurologic exam normal. Test Results: Blood sugar was 15 Emergency Department Course and Treatment: Patient was given 1 amp of D50 IV. Patient felt better after this but felt nauseous. She was given Zofran, and then Phenergan. Repeat blood sugar was 150 in the 93. She is able to tolerate p.o. now. She drank a soda. She wants to go home. I will give her Phenergan for nausea. She will continue to ingest some sugary fluids at home and will follow up with her doctor Treatment Plan: Disposition: Discharge Impression: Hypoglycemia This note was generated with [employer] dictation software. It may contain incorrect words, spelling, and punctuation that were not noted in review of the chart prior to signing ED Disposition - Plan for ED Patient: Chief Complaint: Hypoglycemia Referrals: Nadira Sifuentes NP-C [Primary Care Provider] -
[2018-03-26] MEDS: Ondansetron 4 MG/2 ML Vial IV (13:26)
[2018-03-26 13:27] VITALS: PULSE 79; RESP 15; O2SAT 94
[2018-03-26 14:01] LABS: Bedside Glucose 153 mg/dL (70-110)
[2018-03-26] MEDS: proMETHazine 25 MG/ML Syringe 12.5 MG IV (14:21)
[2018-03-26 15:11] LABS: Bedside Glucose 15 mg/dL (70-110)
[2018-03-26 15:11] LABS: Bedside Glucose 93 mg/dL (70-110)
[2018-03-26 15:16] VITALS: BP 163/58; PULSE 74; RESP 18; O2SAT 99
--- NOTE | 2018-03-26 15:18 | DCINST.ED_ITS ---
ED Disposition - Plan for ED Patient: Disposition: Home or Assisted Living Chief Complaint: Hypoglycemia Instructions: ED Diabetes Hypoglycemia Insulin React Prescriptions: proMETHazine tablet [Phenergan] 25 mg PO Q6H PRN PRN #10 tab PRN Reason: Nausea Referrals: Nadira Sifuentes, SUPERVISOR PRINTING AND STAMPING-C [Primary Care Provider] -
[2018-03-26 15:21] LABS: Bedside Glucose 95 mg/dL (70-110)
== END 2018-03-26 15:33 | disposition home or self-care (01) ==
PROVIDERS: Emergency Provider Emergency Medicine; Family Provider Nurse Practitioner Family; PCP Nurse Practitioner Family
DX: E11.649 Type 2 diabetes mellitus with hypoglycemia without coma (principal); Z79.4 Long term (current) use of insulin
CPT/HCPCS: 82962; 96374; 96375; 99285; J7030; A4216; J2405

== ENCOUNTER 2018-04-16 20:45 | Emergency (ER) | payer SELFPAY ==
[2017-03-16 08:30] VITALS: BMI 29.2
[2018-04-16 20:46] VITALS: BP 134/71; PULSE 89; RESP 14; TEMP 36.5; O2SAT 100; BMI 27.2
[2018-04-16] MEDS: Ondansetron ODT 4 MG Tablet PO (21:51)
[2018-04-16] MEDS: HYDROmorphone 1 MG/ML Syringe IM (21:52)
--- NOTE | 2018-04-16 23:44 | ED.VISSUMM ---
- ER Visit Summary Date of Service: 04/16/18 Chief Complaint: Abscess History of Present Illness: The patient is a 62 F who goes the [facility]. She reports that she has an abscess in the left groin that began yesterday. She has sharp pains 1010 worst 910 currently. Is worsened by walking in her underwear rubbing. She relieved by nothing. Physical Examination: Vitals: Stable. Afebrile. General: Well-nourished and well-developed. Head: Normocephalic atraumatic. Neck: Supple, no lymphadenopathy. No JVD. Nontender. Cardiovascular: Regular rate and rhythm. No murmurs. Respiratory: No respiratory distress. Clear to auscultation bilaterally. Abdominal: Soft, nontender, nondistended, normal bowel sounds. No guarding, rebound, or peritoneal signs. Back: Nontender. Extremities: Nontender, no edema. Skin: 1 cm sebaceous cyst the proximal medial thigh on the left. There is no surrounding in the erythema or induration. Neurologic: Alert and oriented ?3. Cranial nerves II through XII are intact. Normal strength and sensation. Psych: Normal affect. Emergency Department Course and Treatment: Patient was given a milligram of Dilaudid IM. She had a 9 the performed. She tolerated this well. Treatment Plan: Patient be discharged instructions to follow-up with her primary care physician as needed. Disposition: To home in improved and stable condition. Impression: 1. Sebaceous cyst left thigh. 2. I&D. Procedure Note: Abscess was cleansed with chlorhexidine soap. Anesthetized with 1% lidocaine without epinephrine. An incision was made with an 11 scalpel blade. A very small amount of pus drained. The wall of sebaceous cyst was completely removed. She tolerated this well. This note was generated with [employer] dictation software. It may contain incorrect words, spelling, and punctuation that were not noted in review of the chart prior to signing ED Disposition - Plan for ED Patient: Disposition: Home or Assisted Living Chief Complaint: Abscess Instructions: ED Cyst Sebaceous Infec IandD Referrals: Nadira Sifuentes, VELASQUEZ-C [Primary Care Provider] - As Needed
[2018-04-17 00:01] VITALS: BP 139/68; PULSE 75; RESP 17; O2SAT 99
== END 2018-04-17 00:02 | disposition home or self-care (01) ==
PROVIDERS: Emergency Provider Emergency Medicine; Family Provider Nurse Practitioner Family; PCP Nurse Practitioner Family
DX: L72.3 Sebaceous cyst (principal); I25.10 Atherosclerotic heart disease of native coronary artery without angina pectoris; I10 Essential (primary) hypertension; E78.00 Pure hypercholesterolemia, unspecified; J44.9 Chronic obstructive pulmonary disease, unspecified; E11.9 Type 2 diabetes mellitus without complications; Z79.4 Long term (current) use of insulin; Z79.82 Long term (current) use of aspirin; Z79.01 Long term (current) use of anticoagulants; Z79.899 Other long term (current) drug therapy; Z87.891 Personal history of nicotine dependence
CPT/HCPCS: 10060; 96372; 99282

== ENCOUNTER 2018-05-01 13:29 | Emergency (ER) | payer SELFPAY ==
[2017-03-16 08:30] VITALS: BMI 29.2
[2018-05-01 13:30] VITALS: BP 140/83; PULSE 83; RESP 14; TEMP 36.8; O2SAT 100; BMI 26.2
--- NOTE | 2018-05-01 14:44 | EKG12_ITS ---
Test Reason : CP Blood Pressure : / mmHG Vent. Rate : 077 BPM Atrial Rate : 077 BPM P-R Int : 130 ms QRS Dur : 070 ms QT Int : 390 ms P-R-T Axes : 078 038 031 degrees QTc Int : 441 ms Normal sinus rhythm Normal ECG Confirmed by HENRY BARFIELD, DAYANA ([id number]), rewrite editor ARON HASKINS ([id number]) on 05/05/2018 1:09:18 PM Referred By: ASHWIN Confirmed By:DAYANA FIGUEROA MD
--- NOTE | 2018-05-01 14:45 | RAD_ITS ---
STUDY: X-RAY CHEST REASON FOR EXAM: Female, 62 years old. Chest pain TECHNIQUE: Single AP portable view of the chest. COMPARISON: None. FINDINGS: The lungs are clear and expanded. There is no demonstrated pleural abnormality. Normal size heart. Normal mediastinum and jovan. Normal visualized pulmonary arteries. Normal visualized aortic arch and descending thoracic aorta. Normal visualized thoracic spine. Normal visualized ribs, clavicles, and shoulders. There is no demonstrated abnormality of the visualized soft tissue structures of the upper abdomen. RAD/Chest 1 View (Portable) IMPRESSION: Normal x-ray examination of the chest. Electronically Signed: Ja Mott MD at 15:00 EDT Tel , Service support ,
[2018-05-01 15:23] VITALS: BP 144/78; PULSE 67; RESP 15; O2SAT 98
[2018-05-01] MEDS: Acetaminophen 500 MG Tablet 1000 MG PO (15:28)
[2018-05-01 15:45] LABS: Absolute Lymphocyte Count 2.87 X10^3/ul (0.83-4.51); Absolute Neutrophil Count 3.9 X10^3/uL (2.0-7.7); Basophil# 0.03 X10^3/uL; Basophil% 0.4 % (0-1); Eosinophil# 0.22 X10^3/uL; Eosinophils% 2.9 % (0-5); Hemoglobin 12.6 g/dl (12.0-15.0); Lymphocyte # 2.87 X10^3/ul (4.0); Lymphocyte % 38.3 % (19-41); Mean Corpuscular Volume 88.5 fL (81-99); Mean Platelet Vol. 11.2 fl (6.2-12.0); Monocyte# 0.45 X10^3/uL; Neutrophil # 3.91 X10^3/uL (2.7-7.7); Neutrophil % 52.1 % (47-70); Platelet Count 230 K/mm3 (150-450); RBC Distribution Width CV 12.3 % (11.6-14.6); RBC Distribution Width SD 39.3 fl (35.1-43.9); Red Blood Count 4.07 M/mm3 (4.2-5.4); White Blood Count 7.5 K/mm3 (4.4-11.0)
[2018-05-01 15:49] LABS: POSITIVE COUNT NO; POSITIVE DIFFERENTIAL NO; POSITIVE MORPHOLOGY NO
--- NOTE | 2018-05-01 16:07 | ED.VISSUMM ---
- ER Visit Summary Date of Service: 05/01/18 Chief Complaint: Chest pain History of Present Illness: The patient is a 62 F who states that 1130 today she was weed eating when she had the development of chest heaviness going into her left arm. She has had these symptoms numerous times before. This time the patient notes tingling in the hand. Patient has a history of coronary artery disease having had stents to her LAD. She has a history of diabetes hypertension high cholesterol. She is follows with Dr. Quseada as an outpatient. September 2017 she had a heart cath that showed open LAD stents and nonobstructive ostial diagonal disease. The patient has had several hospital admissions since that time in which ACS has been ruled out. The patient states she vomited. She states she took a nitroglycerin and has a headache. Physical Examination: Afebrile vital signs are stable Gen: Well-nourished well-developed Head: Normocephalic atraumatic Eyes: Perrl EOMI ENT: TMs clear no rhinorrhea moist mucous membranes Neck: Supple no lymphadenopathy no JVD nontender CVS: Regular rate rhythm no murmurs normal S1-S2 Respiratory: No distress clear to auscultation bilaterally chest nontender Abdomen: Soft nontender nondistended normal bowel sounds no masses Back: Nontender Extremity: Nontender no edema Skin: Normal color no rash Neuro: alert orientated ?3 CN II-XII intact normal strength sensation reflexes gait cerebellar Psych: Patient is very anxious and tearful Test Results: EKG shows a normal sinus is unchanged from prior. CBC chemistries and troponin were obtained. These were negative. Delta troponin will be obtained. Emergency Department Course and Treatment: DANDY score is 3. Delta troponin will be performed. If this is negative she will be discharged home to follow-up in the office. If it is positive we will admit her. I do suspect that this is not cardiac. The patient was weed eating at the time and I do wonder if this is musculoskeletal. Impression: 1. Chest pain This note was generated with [employer] dictation software. It may contain incorrect words, spelling, and punctuation that were not noted in review of the chart prior to signing <Sam Miller - Last Filed: 05/01/18 17:24> - ER Visit Summary It was signed out to me by Dr. Miller to follow-up on repeat troponin. Repeat troponin is negative. It was felt if this was negative the patient could be discharged home. This note was generated with [employer] dictation software. It may contain incorrect words, spelling, and punctuation that were not noted in review of the chart prior to signing <Cholo Scott - Last Filed: 05/01/18 18:35> ED Disposition <Sam Miller - Last Filed: 05/01/18 17:24> <Cholo Scott - Last Filed: 05/01/18 18:35> - Plan for ED Patient: Disposition: Home or Assisted Living Chief Complaint: Chest Pain Instructions: ED Chest Pain Atypical Unkn Cause Referrals: Sam Quesada MD [STAFF PHYSICIAN] - (call to arrange follow up)
[2018-05-01 16:14] LABS: Anion Gap 7 (5-15); BUN 15 mg/dL (7-18); BUN/Creat Ratio 19.5 RATIO (10-20); Calcium,Total 9.7 mg/dL (8.5-10.1); Chloride 104 mmol/L (98-107); Creatinine, Serum 0.77 mg/dL (0.55-1.02); EST Glomerular Filtration Rate 80 mL/min (>60); Est Glom Filt Rate - Afr Amer 97 mL/min (>60); Estimated Creatinine Clearance 61.06 ml/min; Glucose 224 mg/dL (74-106); Potassium 4.3 mmol/L (3.5-5.1); Sodium Level 139 mmol/L (136-145)
[2018-05-01] MEDS: Ketorolac 60 MG/2 ML Vial IM (16:39)
[2018-05-01 16:41] VITALS: BP 128/78; PULSE 68; RESP 11; O2SAT 98
[2018-05-01 17:50] VITALS: BP 142/73; PULSE 70; RESP 20; O2SAT 95
[2018-05-01 18:41] VITALS: BP 137/73; PULSE 72; RESP 16; O2SAT 96
== END 2018-05-01 18:42 | disposition home or self-care (01) ==
PROVIDERS: Emergency Provider Emergency Medicine; Family Provider Nurse Practitioner Family; PCP Nurse Practitioner Family
DX: R07.9 Chest pain, unspecified (principal); R20.2 Paresthesia of skin; R11.2 Nausea with vomiting, unspecified; R51 Headache; I25.10 Atherosclerotic heart disease of native coronary artery without angina pectoris; E11.9 Type 2 diabetes mellitus without complications; I10 Essential (primary) hypertension; E78.00 Pure hypercholesterolemia, unspecified; Z95.5 Presence of coronary angioplasty implant and graft; Z87.891 Personal history of nicotine dependence; Z79.4 Long term (current) use of insulin; Z79.82 Long term (current) use of aspirin; Z79.899 Other long term (current) drug therapy
CPT/HCPCS: 36415; 71045; 80048; 84484; 85025; 93005; 96372; 99283; J7030; A4216

== ENCOUNTER 2018-05-26 17:42 | Emergency (ER) | payer SELFPAY ==
[2017-03-16 08:30] VITALS: BMI 29.2
[2018-05-26 17:43] VITALS: BP 155/70; PULSE 90; RESP 14; TEMP 36.7; O2SAT 97; BMI 26.9
--- NOTE | 2018-05-26 18:00 | ED.VISSUMM ---
- ER Visit Summary Date of Service: 05/26/18 Chief Complaint: Back pain History of Present Illness: The patient is a 62 F who goes to the [facility]. She reports that she has low back pain began 3 days ago. She states is a dull pain is 1010 at worst 9 out of 10 currently. Is worsened by movement relieved by remaining still. She denies any recent trauma. No fall, MVA, or change in activity. There is no relation to her legs. No problems with her bowels or her bladder. No numbness or weakness in her legs. Patient reports that she saw her primary care physician was diagnosed with a UTI. She was placed on Macrodantin and took the first dose this morning. She is vomited 3 times since this. No blood or emesis. No diarrhea. Last bowel was today. She denies any melena or hematochezia. She denies dysuria, but has had frequency. Physical Examination: Vitals: Stable. Afebrile. General: A&O x 3. NAD. Cardiovascular exam: Regular rate and rhythm, no murmur, rub or gallop. Respiratory exam: Clear to auscultation bilaterally. No wheezes or stridor. Abdominal exam: Soft, nontender, nondistended, normal bowel sounds. No peritoneal signs. Back: Diffuse moderate tenderness to palpation over the lumbar spine and the paraspinous musculature in the lumbar region. No point tenderness. Negative straight leg bilaterally. 5/5 DF, PF, EHL bilaterally. Normal sensation to light touch throughout. Extremity: No clubbing, cyanosis, or edema. Test Results: CBC is normal. UA is negative. Chem-7 is remarkable for a glucose of 563 and a creatinine 1.03. Emergency Department Course and Treatment: An OARRS report was obtained which was negative. She had an IV placed. She was given Zofran and morphine IV. She is resting comfortably. I reviewed the patient's prior labs. Her last hemoglobin A1c was March 15. At that time it was 12.9. This is the lowest it has been this year. She represents an average blood sugar of 240-347. I discussed this with the patient and she assures me that she never misses my medications. States that she took 23 units of Lantus this morning and is scheduled to take 41 units tonight. She had her initial dose of metformin 1000 mg this morning. She is scheduled to take a second dose this evening. Patient is given 10 units of lispro subcu here. She is resting comfortably. Treatment Plan: Patient will be discharged with 12 [place] and Zofran. Instructed to follow-up her primary care physician as soon as possible for further evaluation and treatment of her diabetes. Return to the emergency department for any worsening symptoms. Disposition: To home in improved and stable condition. Impression: 1. Back pain, acute. 2. Hyperglycemia with [id number] diabetes mellitus and noncompliance. This note was generated with [employer] software. It may contain incorrect words, spelling, and punctuation that were not noted in review of the chart prior to signing ED Disposition - Plan for ED Patient: Chief Complaint: Back Instructions: ED Neck Back Pain General, ED Hyperglycemia Diabetic Prescriptions: Oxycodone HCl/Acetaminophen [Percocet 5/325] 1 tablet PO Q6H PRN PRN 3 Days #12 tablet PRN Reason: Pain Ondansetron [Zofran Odt] 4 mg PO Q8H PRN PRN #10 tablet PRN Reason: Nausea Referrals: Nadira Sifuentes, MULTIPLE KNIFE EDGE TRIMMER OPERATOR-C [Primary Care Provider] - As soon as possible
[2018-05-26] MEDS: 0.9% Normal Saline 1,000 ML 1000 ML IV (18:16)
[2018-05-26] MEDS: Morphine 4 MG/ML Syringe IV (18:16)
[2018-05-26] MEDS: Ondansetron 4 MG/2 ML Vial IV (18:16)
[2018-05-26 18:26] LABS: Bacteria 0 SEEN /hpf (None Seen); Mucous, Urine 0 SEEN /hpf (<or=2+)
[2018-05-26 18:33] LABS: Absolute Lymphocyte Count 2.18 X10^3/ul (0.83-4.51); Absolute Neutrophil Count 3.5 X10^3/uL (2.0-7.7); Basophil# 0.02 X10^3/uL; Basophil% 0.3 % (0-1); Eosinophil# 0.18 X10^3/uL; Eosinophils% 2.8 % (0-5); Hematocrit 39.5 % (37-47); Hemoglobin 13.5 g/dl (12.0-15.0); Lymphocyte # 2.18 X10^3/ul (4.0); Lymphocyte % 34.5 % (19-41); Mean Corp Hgb Conc 34.2 g/gl (32-36); Mean Corpuscular Hgb 31.6 pg (27.0-32.0); Mean Corpuscular Volume 92.5 fL (81-99); Mean Platelet Vol. 10.9 fl (6.2-12.0); Monocyte% 6.3 % (0-10); Neutrophil # 3.53 X10^3/uL (2.7-7.7); Neutrophil % 55.9 % (47-70); Platelet Count 255 K/mm3 (150-450); RBC Distribution Width CV 12.8 % (11.6-14.6); RBC Distribution Width SD 42.6 fl (35.1-43.9); Red Blood Count 4.27 M/mm3 (4.2-5.4); White Blood Count 6.3 K/mm3 (4.4-11.0)
[2018-05-26 18:34] LABS: POSITIVE COUNT NO; POSITIVE DIFFERENTIAL NO; POSITIVE MORPHOLOGY NO
[2018-05-26 18:36] LABS: Color, Urine Yellow (Yellow); Glucose, Dipstick 1000 mg/dl (Normal); Ketone-Dipstick Negative (Negative); Leukocyte Esterase-Dipstick 100 /ul (Negative); Nitrite-Dipstick Negative (Negative); Occult Blood-Urine Negative /ul (Negative); Protein-Dipstick Negative (Negative); Urine Bilirubin Dipstick Negative (Negative); Urine Clarity Clear (Clear); Urine Urobilinogen Normal (Normal)
[2018-05-26 18:50] LABS: Red Blood Cells-Urine 0-5 SEEN /hpf (0-5); Squamous Epithelial Cells - UA 0-5 SEEN /hpf (5-10); White Blood Cells 0-5 SEEN /hpf (0-5)
[2018-05-26 18:50] LABS: Anion Gap 8 (5-15); BUN 10 mg/dL (7-18); BUN/Creat Ratio 9.7 RATIO (10-20); Chloride 103 mmol/L (98-107); Creatinine, Serum 1.03 mg/dL (0.55-1.02); EST Glomerular Filtration Rate 57 mL/min (>60); Est Glom Filt Rate - Afr Amer 69 mL/min (>60); Estimated Creatinine Clearance 45.65 ml/min; Glucose 563 mg/dL (74-106); Potassium 4.3 mmol/L (3.5-5.1); Sodium Level 136 mmol/L (136-145)
--- NOTE | 2018-05-26 18:51 | ED.RN ---
critical value of blood glucose 563. dr. tijerina aware
[2018-05-26] MEDS: Insulin Lispro 100 UNIT/ML INSULN.PEN 10 UNIT SC (19:18)
[2018-05-26 19:20] VITALS: RESP 18
== END 2018-05-26 19:21 | disposition home or self-care (01) ==
PROVIDERS: Emergency Provider Emergency Medicine; Family Provider Nurse Practitioner Family; PCP Nurse Practitioner Family
DX: M54.5 Low back pain (principal); E11.65 Type 2 diabetes mellitus with hyperglycemia; Z91.14 Patient's other noncompliance with medication regimen; N39.0 Urinary tract infection, site not specified; I25.10 Atherosclerotic heart disease of native coronary artery without angina pectoris; J44.9 Chronic obstructive pulmonary disease, unspecified; I10 Essential (primary) hypertension; E78.00 Pure hypercholesterolemia, unspecified; Z90.49 Acquired absence of other specified parts of digestive tract; Z95.5 Presence of coronary angioplasty implant and graft; Z79.82 Long term (current) use of aspirin; Z79.4 Long term (current) use of insulin; Z79.02 Long term (current) use of antithrombotics/antiplatelets; Z79.899 Other long term (current) drug therapy
CPT/HCPCS: 80048; 81001; 85025; 96361; 96372; 96374; 96375; 99283; J2405

== ENCOUNTER 2018-05-30 18:38 | Observation (INO) | payer SELFPAY ==
[2017-03-16 08:30] VITALS: BMI 29.2
[2018-05-30] VITALS (9 sets, daily range): BP systolic 133–155; BP diastolic 65–85; PULSE 71–102; RESP 16–22; TEMP 36.4–36.8; O2SAT 95–98; BMI 26.5; BMI 27.3; BMI 27.4
[2018-05-30] MEDS: 0.9% Normal Saline 1,000 ML 999 ML IV ×2 (19:21→20:47)
[2018-05-30 19:35] LABS: Bacteria 0 SEEN /hpf (None Seen); Mucous, Urine 0 SEEN /hpf (<or=2+); Red Blood Cells-Urine 0 SEEN /hpf (0-5)
[2018-05-30 19:41] LABS: Blood Gas Specimen Type VEN; O2 Delivery Device Room Air; SITE OTHER; Time Given 1940; VBG BASE EXCESS -2 mmol/L (-1.0-3.5); VBG Bicarbonate 23 mmol/L (22-26); VBG Oxygen Content 24 mmol/L (23-33); VBG PO2 56 mmHg (25-40); VBG SO2 88 % (50-70); VBG pH 7.39 (7.32-7.42)
[2018-05-30 19:50] LABS: Color, Urine Yellow (Yellow); Glucose, Dipstick 1000 mg/dl (Normal); Ketone-Dipstick Negative (Negative); Leukocyte Esterase-Dipstick 100 /ul (Negative); Nitrite-Dipstick Negative (Negative); Occult Blood-Urine Negative /ul (Negative); Protein-Dipstick Negative (Negative); Urine Bilirubin Dipstick Negative (Negative); Urine Clarity Sl. Cloudy (Clear); Urine Urobilinogen Normal (Normal)
[2018-05-30 19:55] LABS: Anion Gap 9 (5-15); BUN 8 mg/dL (7-18); BUN/Creat Ratio 8.1 RATIO (10-20); Calcium,Total 9.3 mg/dL (8.5-10.1); Chloride 101 mmol/L (98-107); Creatinine, Serum 0.99 mg/dL (0.55-1.02); EST Glomerular Filtration Rate 60 mL/min (>60); Est Glom Filt Rate - Afr Amer 72 mL/min (>60); Estimated Creatinine Clearance 47.49 ml/min; Glucose 518 mg/dL (74-106); Potassium 4.2 mmol/L (3.5-5.1); Sodium Level 133 mmol/L (136-145)
--- NOTE | 2018-05-30 19:56 | ED.VISSUMM ---
- ER Visit Summary Date of Service: 05/30/18 Chief Complaint: High blood sugar History of Present Illness: The patient is a 62 F who presents for evaluation of symptomatic high blood sugar. Patient states she was at mosque approximately 1 hour prior to presentation and began feeling funny. She checked her blood sugar and it read high. In the meantime she is developed nausea, chest pain, and has vomited. She states she feels lightheaded and unsteady on her feet. She is on insulin and has taken it as prescribed. She denies any recent illness or change in physical activity or diet. Physical Examination: Vital signs: afebrile, hemodynamically stable, no hypoxia on room air General: well nourished, well developed, in no distress Skin: warm, dry, no rash, no pallor HEENT: normocephalic and atraumatic; PERRL, EOMI, moist mucous membranes Cardiovascular: regular rate and rhythm without murmurs, no peripheral edema, 2+ pulses all distal extremities Respiratory: No increased work of breathing, lungs are clear to auscultation bilaterally, no rales, rhonchi or wheezing Abdominal: Abdomen is soft, nontender with normoactive bowel sounds, no guarding or rebound, no masses MSK: Moves all extremities, no deformities, normal strength Neuro: Awake and alert, oriented ?4. No facial droop, sensation and motor function intact and symmetric, bilateral lower extremity ataxia with heel up and down opposite gray. Test Results: Abnormal Lab Results 05/30/18 05/30/18 05/30/18 18:52 19:25 19:25 WBC 6.0 RBC 3.94 L Hgb 12.3 Hct 36.1 L MCV 91.6 MCH 31.2 MCHC 34.1 RDW 12.8 RDW Differential 43.0 Plt Count 241 MPV 11.1 Immature Gran % (Auto) 0.300 Neut % (Auto) 48.6 Lymph % (Auto) 39.6 [place] % (Auto) 8.0 Eos % (Auto) 3.0 Baso % (Auto) 0.5 Absolute Neuts (auto) 2.9 Absolute Lymphs (auto) 2.37 Total Counted Not Reportable Specimen Type Sample Site VBG pH VBG pO2 VBG O2 Sat (Calc) VBG O2 Content VBG Base Excess POC Mix VBG pCO2 Pt Tmp O2 Delivery Device Blood Gas Notified Whom Blood Gas Notified Time Sodium 134 L Potassium 4.2 Chloride 103 Carbon Dioxide 23.0 Anion Gap 8 BUN 9 Creatinine 0.99 Estim Creat Clear Calc 47.49 Est GFR (MDRD) Af Amer 73 Est GFR (MDRD) Non-Af 60 BUN/Creatinine Ratio 9.1 L Glucose 491 H* Calcium 9.3 Phosphorus 3.8 Magnesium 2.0 Troponin I < 0.015 B-Natriuretic Peptide TSH Urine Color Urine Clarity Urine pH Ur Specific [place] Urine Protein Urine Glucose (UA) Urine Ketones Urine Occult Blood Urine Nitrite Urine Bilirubin Urine Urobilinogen Ur Leukocyte Esterase Urine RBC Urine WBC Ur Squamous Epith Cells Urine Bacteria Urine Mucus Acetone Level POC Glucose > 500 H* 05/30/18 05/30/18 05/30/18 19:25 19:25 19:25 WBC RBC Hgb Hct MCV MCH MCHC RDW RDW Differential Plt Count MPV Immature Gran % (Auto) Neut % (Auto) Lymph % (Auto) [place] % (Auto) Eos % (Auto) Baso % (Auto) Absolute Neuts (auto) Absolute Lymphs (auto) Total Counted Specimen Type Sample Site VBG pH VBG pO2 VBG O2 Sat (Calc) VBG O2 Content VBG Base Excess POC Mix VBG pCO2 Pt Tmp O2 Delivery Device Blood Gas Notified Whom Blood Gas Notified Time Sodium 133 L Potassium 4.2 Chloride 101 Carbon Dioxide 23.0 Anion Gap 9 BUN 8 Creatinine 0.99 Estim Creat Clear Calc 47.49 Est GFR (MDRD) Af Amer 72 Est GFR (MDRD) Non-Af 60 BUN/Creatinine Ratio 8.1 L Glucose 518 H* Calcium 9.3 Phosphorus Magnesium Troponin I B-Natriuretic Peptide 35.0 TSH Urine Color Urine Clarity Urine pH Ur Specific [place] Urine Protein Urine Glucose (UA) Urine Ketones Urine Occult Blood Urine Nitrite Urine Bilirubin Urine Urobilinogen Ur Leukocyte Esterase Urine RBC Urine WBC Ur Squamous Epith Cells Urine Bacteria Urine Mucus Acetone Level NEGATIVE POC Glucose 05/30/18 05/30/18 05/30/18 19:30 19:35 20:13 WBC RBC Hgb Hct MCV MCH MCHC RDW RDW Differential Plt Count MPV Immature Gran % (Auto) Neut % (Auto) Lymph % (Auto) [place] % (Auto) Eos % (Auto) Baso % (Auto) Absolute Neuts (auto) Absolute Lymphs (auto) Total Counted Specimen Type [place] Sample Site OTHER VBG pH 7.39 VBG pO2 56 H VBG O2 Sat (Calc) 88 H VBG O2 Content 24 VBG Base Excess -2 L POC Mix VBG pCO2 Pt Tmp 38.0 L O2 Delivery Device Room Air Blood Gas Notified Whom ED Blood Gas Notified Time 1939 Sodium Potassium Chloride Carbon Dioxide Anion Gap BUN Creatinine Estim Creat Clear Calc Est GFR (MDRD) Af Amer Est GFR (MDRD) Non-Af BUN/Creatinine Ratio Glucose Calcium Phosphorus Magnesium Troponin I B-Natriuretic Peptide TSH Urine Color Yellow Urine Clarity Sl. Cloudy Urine pH 6.0 Ur Specific [place] 1.010 Urine Protein Negative Urine Glucose (UA) 1000 H Urine Ketones Negative Urine Occult Blood Negative Urine Nitrite Negative Urine Bilirubin Negative Urine Urobilinogen Normal Ur Leukocyte Esterase 100 H Urine RBC 0 SEEN Urine WBC 5-10 SEEN Ur Squamous Epith Cells 0-5 SEEN Urine Bacteria 0 SEEN Urine Mucus 0 SEEN Acetone Level POC Glucose 393 H 05/30/18 05/30/18 05/30/18 21:09 22:04 22:33 WBC RBC Hgb Hct MCV MCH MCHC RDW RDW Differential Plt Count MPV Immature Gran % (Auto) Neut % (Auto) Lymph % (Auto) [place] % (Auto) Eos % (Auto) Baso % (Auto) Absolute Neuts (auto) Absolute Lymphs (auto) Total Counted Specimen Type Sample Site VBG pH VBG pO2 VBG O2 Sat (Calc) VBG O2 Content VBG Base Excess POC Mix VBG pCO2 Pt Tmp O2 Delivery Device Blood Gas Notified Whom Blood Gas Notified Time Sodium 142 Potassium 3.4 L Chloride 111 H Carbon Dioxide 23.0 Anion Gap 8 BUN 6 L Creatinine 0.76 Estim Creat Clear Calc 61.86 Est GFR (MDRD) Af Amer 98 Est GFR (MDRD) Non-Af 81 BUN/Creatinine Ratio 7.9 L Glucose 160 H Calcium 8.2 L Phosphorus Magnesium Troponin I B-Natriuretic Peptide TSH Urine Color Urine Clarity Urine pH Ur Specific [place] Urine Protein Urine Glucose (UA) Urine Ketones Urine Occult Blood Urine Nitrite Urine Bilirubin Urine Urobilinogen Ur Leukocyte Esterase Urine RBC Urine WBC Ur Squamous Epith Cells Urine Bacteria Urine Mucus Acetone Level POC Glucose 287 H 241 H 05/30/18 23:55 WBC RBC Hgb Hct MCV MCH MCHC RDW RDW Differential Plt Count MPV Immature Gran % (Auto) Neut % (Auto) Lymph % (Auto) [place] % (Auto) Eos % (Auto) Baso % (Auto) Absolute Neuts (auto) Absolute Lymphs (auto) Total Counted Specimen Type Sample Site VBG pH VBG pO2 VBG O2 Sat (Calc) VBG O2 Content VBG Base Excess POC Mix VBG pCO2 Pt Tmp O2 Delivery Device Blood Gas Notified Whom Blood Gas Notified Time Sodium Potassium Chloride Carbon Dioxide Anion Gap BUN Creatinine Estim Creat Clear Calc Est GFR (MDRD) Af Amer Est GFR (MDRD) Non-Af BUN/Creatinine Ratio Glucose Calcium Phosphorus Magnesium Troponin I < 0.015 B-Natriuretic Peptide TSH 4.57 H Urine Color Urine Clarity Urine pH Ur Specific [place] Urine Protein Urine Glucose (UA) Urine Ketones Urine Occult Blood Urine Nitrite Urine Bilirubin Urine Urobilinogen Ur Leukocyte Esterase Urine RBC Urine WBC Ur Squamous Epith Cells Urine Bacteria Urine Mucus Acetone Level POC Glucose Clinical Impression(s) from Imaging Studies Brain CT 05/30/18 20:45 IMPRESSION: Normal unenhanced CT scan of the brain. Electronically Signed: Ja Mott MD at 21:25 EDT Tel , Service support , Emergency Department Course and Treatment: Patient presented with [id number] glucose in the 500s. She was given IV fluids for hydration. Labs were performed to evaluate for possible DKA, and patient had no abnormal bicarb, no ketones, and a normal pH on VBG. Because of patient's complaint of chest pain, EKG was performed showing no ischemic changes. Troponin negative. Patient had no neuro deficits other than complaining of some unsteadiness in her gait and coarse movement with lower extremity cerebellar testing. Head CT was performed due to her initial complaint of gait instability. It showed no intracranial hemorrhage or other acute abnormality. After receiving IV fluids, patient stated she felt much better, and blood sugar was decreasing without any insulin at this point. Patient ambulated again and was able to walk unassisted, and stated that her gait was now at her baseline. Likely her earlier unsteadiness was related to her constellation of symptoms due to hyperglycemia, as all symptoms started in the same brief period, including feeling funny, chest pain, nausea, and lightheadedness. Patient was given subcutaneous insulin to augment her BGT control -- insulin drip not necessary as BGT improving significantly from hydration alone. Patient began to complain of worsening chest pain despite resolution of her other symptoms and her improved glucose level. Given that she does have a significant cardiac history, repeat EKG was performed showing no new changes. Time frame of chest pain onset has only been a few hours, thus EKG or troponin changes in this high risk patient would not definitely be evident at this point. Patient received aspirin and NTG, with resolution of CP after NTG. She was admitted for further management of poorly controlled blood sugar and chest pain workup in patient with significant cardiac history. Treatment Plan: [] Disposition: [] Impression: Symptomatic hyperglycemia, acute chest pain, history of CAD This note was generated with [employer] dictation software. It may contain incorrect words, spelling, and punctuation that were not noted in review of the chart prior to signing ED Disposition - Plan for ED Patient: Disposition: Acute Care [facility] Chief Complaint: Hyperglycemia
[2018-05-30 19:57] LABS: Anion Gap 8 (5-15); BUN 9 mg/dL (7-18); BUN/Creat Ratio 9.1 RATIO (10-20); Calcium,Total 9.3 mg/dL (8.5-10.1); Chloride 103 mmol/L (98-107); Creatinine, Serum 0.99 mg/dL (0.55-1.02); EST Glomerular Filtration Rate 60 mL/min (>60); Est Glom Filt Rate - Afr Amer 73 mL/min (>60); Estimated Creatinine Clearance 47.49 ml/min; Glucose 491 mg/dL (74-106); Phosphorus 3.8 mg/dL (2.5-4.9); Potassium 4.2 mmol/L (3.5-5.1); Sodium Level 134 mmol/L (136-145)
[2018-05-30 20:00] LABS: Squamous Epithelial Cells - UA 0-5 SEEN /hpf (5-10); White Blood Cells 5-10 SEEN /hpf (0-5)
[2018-05-30 20:06] LABS: Absolute Lymphocyte Count 2.37 X10^3/ul (0.83-4.51); Absolute Neutrophil Count 2.9 X10^3/uL (2.0-7.7); Basophil# 0.03 X10^3/uL; Basophil% 0.5 % (0-1); Eosinophil# 0.18 X10^3/uL; Hematocrit 36.1 % (37-47); Hemoglobin 12.3 g/dl (12.0-15.0); Lymphocyte # 2.37 X10^3/ul (4.0); Lymphocyte % 39.6 % (19-41); Mean Corp Hgb Conc 34.1 g/gl (32-36); Mean Corpuscular Hgb 31.2 pg (27.0-32.0); Mean Corpuscular Volume 91.6 fL (81-99); Mean Platelet Vol. 11.1 fl (6.2-12.0); Monocyte# 0.48 X10^3/uL; Neutrophil # 2.91 X10^3/uL (2.7-7.7); Neutrophil % 48.6 % (47-70); Platelet Count 241 K/mm3 (150-450); RBC Distribution Width CV 12.8 % (11.6-14.6); Red Blood Count 3.94 M/mm3 (4.2-5.4)
[2018-05-30 20:07] LABS: POSITIVE COUNT NO; POSITIVE DIFFERENTIAL NO; POSITIVE MORPHOLOGY NO
[2018-05-30 20:16] LABS: Bedside Glucose 393 mg/dL (70-110)
[2018-05-30 20:16] LABS: Bedside Glucose > 500 mg/dL (70-110)
[2018-05-30 21:15] LABS: Bedside Glucose 287 mg/dL (70-110)
[2018-05-30] MEDS: Insulin Lispro 100 UNIT/ML INSULN.PEN 15 UNIT SC (21:18)
[2018-05-30] MEDS: Aspirin 325 MG Tablet PO (22:00)
[2018-05-30 22:11] LABS: Bedside Glucose 241 mg/dL (70-110)
--- NOTE | 2018-05-30 22:52 | PCM.HP.STD ---
Problem List (1) Dysarthria Status: Acute (2) Chest pain Status: Acute (3) Benign essential hypertension Status: Chronic (4) COPD (chronic obstructive pulmonary disease) Status: Chronic Comment: cont smoking (5) Coronary artery disease Status: Chronic Comment: ROMEL LAD 01/21 (6) Hyperlipidemia Status: Chronic Qualifiers: (7) NSTEMI (non-ST elevated myocardial infarction) Status: Chronic (8) Tobacco abuse Status: Chronic (9) Type 2 diabetes mellitus Status: Chronic Qualifiers: Diabetes mellitus roasterman insulin use: with roasterman use Diabetes mellitus complication status: without complication Qualified Code(s): E11.9 - Type 2 diabetes mellitus without complications; Z79.4 - MCFP (current) use of insulin (10) Uncontrolled type 2 diabetes mellitus Status: Chronic (11) GERD (gastroesophageal reflux disease) Status: Chronic History of Present Illness Date of Admission: 05/30/18 Chief Complaint: Chest pain and uncontrolled diabetes The patient is a 62 year old F with history of coronary artery disease status post 4 stents, diabetes mellitus type 2 with uncontrolled blood sugar came to ER with very high blood sugar. She is also feeling dizzy and lightheaded and in the ER but she was found more than 500 on Accu-Chek and 518 on BMP. She developed chest pressure while in the ER which resolved after nitro. Her pain was midsternal which radiated to left shoulder with no associated shortness of breath, palpitation or diaphoresis. She has chronic shortness of breath on exertion due to history of COPD. She also said about 3 days ago she had dysarthria noticed by her daughter. She also has gait incoordination for last 3-4 weeks. She denies any prior history of stroke. [] In ED, initial blood work is negative for DKA with normal acetone, anion gap 9, CO2 23 and negative troponin. Magnesium normal. EKG shows normal sinus rhythm at 72 bpm. Past Medical History Past Medical History (Chronic Problems): Chronic Problems GERD (gastroesophageal reflux disease) (Chronic) Uncontrolled type 2 diabetes mellitus (Chronic) Benign essential hypertension (Chronic) Type 2 diabetes mellitus (Chronic) Hyperlipidemia (Chronic) Coronary artery disease (Chronic) ROMEL LAD 01/21 COPD (chronic obstructive pulmonary disease) (Chronic) cont smoking Tobacco abuse (Chronic) NSTEMI (non-ST elevated myocardial infarction) (Chronic) Allergies Penicillins Allergy (Verified 05/30/18 18:39) Hives hydrocodone bitartrate [From Vicodin] Adverse Reaction (Verified 05/30/18 18:39) Vomiting ibuprofen Adverse Reaction (Verified 05/30/18 18:39) Vomiting Home Medications: Ambulatory Orders Medication Instructions Recorded Lisinopril [Zestril] 5 mg PO DAILY 08/17/15 Aspirin [Adult Low Dose Aspirin EC] 81 mg PO DAILY 02/04/16 Furosemide [Lasix] 40 mg PO DAILY 02/04/16 Simvastatin [Zocor] 40 mg PO QHS 01/24/17 Clopidogrel Bisulfate [Plavix] 75 mg PO DAILY 06/23/17 Metoprolol Tartrate [Lopressor 25 mg PO BID 06/23/17 (beta elder)] Trazodone HCl 50 mg PO QHS 06/23/17 Nitroglycerin [Nitrostat] 0.4 mg SUBLINGUAL Q5M PRN 09/28/17 Sertraline HCl [Zoloft] 50 mg PO DAILY #30 tab 11/29/17 Ondansetron [Zofran Odt] 4 mg PO Q8H PRN PRN #10 tab 01/02/18 Pantoprazole Sodium [Protonix] 40 mg PO DAILY #30 tab 01/11/18 Insulin Detemir [Levemir FlexPen] 0 units SC BID 02/18/18 Ondansetron [Zofran Odt] 4 mg PO Q8H PRN PRN #10 tablet 05/26/18 Oxycodone HCl/Acetaminophen 1 tablet PO Q6H PRN PRN 3 Days #12 05/26/18 [Percocet 5/325] tablet Nitrofurantoin Monohyd/M-Cryst 100 mg PO BID 05/30/18 [Macrobid 100 mg Capsule] Surgical History: angioplasty, cholecystectomy, hysterectomy, - - LAD PCI/ROMEL-02/08/[address] [facility], stent placement at [facility] 03/15/17 along with percutaneous balloon angioplasty Psychiatric History: No pertinent psych hx BUDGET MANAGER History: No pertinent BUDGET MANAGER history Smoking Status: Current every day smoker - *Family History Maternal History Items: Heart Disease Paternal History Items: Heart Disease Sibling History Items: Heart Disease Review of Systems Constitutional: Denies: Chills, Fever, Weight Change HEENT: Denies: Head Aches, Sinus Congestion, Sinus Drainage Cardiovascular: Reports: Chest Pain. Denies: Palpitations Respiratory: Denies: Cough, Shortness of breath at rest, Sputum production Gastrointestinal: Denies: Abdominal Pain, Nausea, Vomiting Genitourinary: Denies: Dysuria Musculoskeletal: Reports: Joint Pain. Denies: Joint Tenderness Skin: Denies: Rash, Wounds Neurological: Reports: Balance problems, Change in Speech. Denies: Difficulty swallowing, Focal weakness, Numbness, Tingling Psychiatric: Reports: Anxiety, Depression. Denies: Homicidal Ideations, Suicidal Ideations Hematologic/ Lymphatic: Denies: Easy Bruising, Easy Bleeding VTE Information - Inpt Only VTE Present on Admission: No VTE Mechan Device Prophylaxis: None VTE Pharm Prophylaxis ordered?: Yes Patient Problems: Active and Suspected Problems Dysarthria (Acute) - Physical Exam General: Alert, Oriented x3, Cooperative HEENT: Atraumatic, PERRLA, EOMI, Normocephalic Neck: Supple, No JVD, Negative Carotid Bruits Lungs: Clear to auscultation, Normal air movement Cardiovascular: Regular rate, Regular Rhythm, Normal S1, Normal S2, No murmurs Abdomen: Bowel Sounds Present, Soft, Non Tender, Non-Distended Extremities: No edema, Capillary Refill Less than 3 Seconds Skin: No rashes, No breakdown Musculoskeletal: No Tenderness to Palpation of Joints or Extremities, Arthritic Changes Neurological: Cranial nerves II-XII grossly intact, Neuro grossly intact, - - NIHSS 0 Gait assessment could not be done in ER. Psych/Mental Status: Normal Affect, Appropriate Vital Signs Temp Pulse Resp BP Pulse Ox 97.5 F L 82 21 H 149/85 H 96 05/30/18 18:38 05/30/18 22:09 05/30/18 22:09 05/30/18 22:09 05/30/18 22:09 Oxygen Delivery Method Room Air Weight: 150 lb Body Mass Index (BMI) 26.5 Finger Stick Blood Glucose 243 Laboratory Tests Past 24 Hrs 05/30/18 05/30/18 05/30/18 19:25 19:25 19:25 WBC 6.0 RBC 3.94 L Hgb 12.3 Hct 36.1 L MCV 91.6 MCH 31.2 MCHC 34.1 RDW 12.8 RDW Differential 43.0 Plt Count 241 MPV 11.1 Immature Gran % (Auto) 0.300 Neut % (Auto) 48.6 Lymph % (Auto) 39.6 [place] % (Auto) 8.0 Eos % (Auto) 3.0 Baso % (Auto) 0.5 Absolute Neuts (auto) 2.9 Absolute Lymphs (auto) 2.37 Total Counted Not Reportable Specimen Type Sample Site VBG pH VBG pO2 VBG O2 Sat (Calc) VBG O2 Content VBG Base Excess POC Mix VBG pCO2 Pt Tmp O2 Delivery Device Blood Gas Notified Whom Blood Gas Notified Time Sodium 134 L Potassium 4.2 Chloride 103 Carbon Dioxide 23.0 Anion Gap 8 BUN 9 Creatinine 0.99 Estim Creat Clear Calc 47.49 Est GFR (MDRD) Af Amer 73 Est GFR (MDRD) Non-Af 60 BUN/Creatinine Ratio 9.1 L Glucose 491 H* Calcium 9.3 Phosphorus 3.8 Magnesium 2.0 Troponin I < 0.015 Urine Color Urine Clarity Urine pH Ur Specific [place] Urine Protein Urine Glucose (UA) Urine Ketones Urine Occult Blood Urine Nitrite Urine Bilirubin Urine Urobilinogen Ur Leukocyte Esterase Urine RBC Urine WBC Ur Squamous Epith Cells Urine Bacteria Urine Mucus Acetone Level NEGATIVE 05/30/18 05/30/18 05/30/18 19:25 19:30 19:35 WBC RBC Hgb Hct MCV MCH MCHC RDW RDW Differential Plt Count MPV Immature Gran % (Auto) Neut % (Auto) Lymph % (Auto) [place] % (Auto) Eos % (Auto) Baso % (Auto) Absolute Neuts (auto) Absolute Lymphs (auto) Total Counted Specimen Type [place] Sample Site OTHER VBG pH 7.39 VBG pO2 56 H VBG O2 Sat (Calc) 88 H VBG O2 Content 24 VBG Base Excess -2 L POC Mix VBG pCO2 Pt Tmp 38.0 L O2 Delivery Device Room Air Blood Gas Notified Whom ED Blood Gas Notified Time 1940 Sodium 133 L Potassium 4.2 Chloride 101 Carbon Dioxide 23.0 Anion Gap 9 BUN 8 Creatinine 0.99 Estim Creat Clear Calc 47.49 Est GFR (MDRD) Af Amer 72 Est GFR (MDRD) Non-Af 60 BUN/Creatinine Ratio 8.1 L Glucose 518 H* Calcium 9.3 Phosphorus Magnesium Troponin I Urine Color Yellow Urine Clarity Sl. Cloudy Urine pH 6.0 Ur Specific [place] 1.010 Urine Protein Negative Urine Glucose (UA) 1000 H Urine Ketones Negative Urine Occult Blood Negative Urine Nitrite Negative Urine Bilirubin Negative Urine Urobilinogen Normal Ur Leukocyte Esterase 100 H Urine RBC 0 SEEN Urine WBC 5-10 SEEN Ur Squamous Epith Cells 0-5 SEEN Urine Bacteria 0 SEEN Urine Mucus 0 SEEN Acetone Level 05/30/18 22:33 WBC RBC Hgb Hct MCV MCH MCHC RDW RDW Differential Plt Count MPV Immature Gran % (Auto) Neut % (Auto) Lymph % (Auto) [place] % (Auto) Eos % (Auto) Baso % (Auto) Absolute Neuts (auto) Absolute Lymphs (auto) Total Counted Specimen Type Sample Site VBG pH VBG pO2 VBG O2 Sat (Calc) VBG O2 Content VBG Base Excess POC Mix VBG pCO2 Pt Tmp O2 Delivery Device Blood Gas Notified Whom Blood Gas Notified Time Sodium Pending Potassium Pending Chloride Pending Carbon Dioxide Pending Anion Gap Pending BUN Pending Creatinine Pending Estim Creat Clear Calc Est GFR (MDRD) Af Amer Pending Est GFR (MDRD) Non-Af Pending BUN/Creatinine Ratio Pending Glucose Pending Calcium Pending Phosphorus Magnesium Troponin I Urine Color Urine Clarity Urine pH Ur Specific [place] Urine Protein Urine Glucose (UA) Urine Ketones Urine Occult Blood Urine Nitrite Urine Bilirubin Urine Urobilinogen Ur Leukocyte Esterase Urine RBC Urine WBC Ur Squamous Epith Cells Urine Bacteria Urine Mucus Acetone Level POC Glucose 05/30/18 05/30/18 05/30/18 22:04 21:09 20:13 POC Glucose 241 H 287 H 393 H 05/30/18 18:52 POC Glucose > 500 H* Assessment/Plan All Active Problems Dysarthria (Acute) Chest pain (Acute) VTE (venous thromboembolism) (Resolved) The patient is a 62 year old F with history of coronary artery disease status post 4 stents, diabetes mellitus type 2 with uncontrolled blood sugar came to ER with very high blood sugar. She is also feeling dizzy and lightheaded and in the ER but she was found more than 500 on Accu-Chek and 518 on BMP. She developed chest pressure while in the ER which resolved after nitro. Her pain was midsternal which radiated to left shoulder with no associated shortness of breath, palpitation or diaphoresis. She has chronic shortness of breath on exertion due to history of COPD. She also said about 3 days ago she had dysarthria noticed by her daughter. She also has gait incoordination for last 3-4 weeks. She denies any prior history of stroke. [] In ED, initial blood work is negative for DKA with normal acetone, anion gap 9, CO2 23 and negative troponin. Magnesium normal. EKG shows normal sinus rhythm at 72 bpm. 1. Atypical chest pain: The patient is being admitted in PCU. Her pot tender is Dr. Quesada. She had 4 stents in the past. He had last stress test in March 29, 2018 shows normal adequate treadmill echo with no anginal symptoms. Normal BP response to exercise. Estimated EF 65%. She had last cardiac cath in January 2018 which showed nonobstructive coronary artery disease distal to stent in LAD 30-40%. Normal LV function with EF 65-70%. Nonobstructive disease proximal RCA. Was recommended medical management continuation of aspirin and Plavix. Cycle cardiac enzymes. Lipid profile tomorrow a.m. she had last Pap smear file which shows LDL 63, HDL 39 in January 2018 2. Nonspecific neurological symptoms, gait incoordination and dysarthria recently: NIH stroke scale 0. CT brain does not show any acute change. NIH stroke scale. MRI brain ordered. Neuro consult. If MRI is positive for recent infarct, full stroke workup. BP and glucose control. PT, OT and speech evaluation. 3. Uncontrolled diabetes mellitus with hyperglycemia: A1c tomorrow a.m. Accu-Chek before meals and at bedtime and cover with NovoLog sliding scale. Blood sugar is controlled, last one 160 mg/dL. K3.4. Lantus insulin twice daily, continue home dose and titrate as per Accu-Cheks. 4. Recent UTI: Patient is on Macrobid 100 mg twice daily since 05/26/2018, total 10 dosages. 1 more day of antibiotic. Coronary artery disease status post stents, COPD, dyslipidemia, hypertension and GERD: Multiple comorbidities complicates the present care and expect difficult and delay recovery. Home medication reconciliation done. This note was generated with [employer] software. Every effort was made to ensure accuracy, however computerized curtain feller blindstitch mistakes may persist. Code Visit OBSV E&M: 73033 Initial observation care L3
[2018-05-30 22:53] LABS: Anion Gap 8 (5-15); BUN 6 mg/dL (7-18); BUN/Creat Ratio 7.9 RATIO (10-20); Calcium,Total 8.2 mg/dL (8.5-10.1); Chloride 111 mmol/L (98-107); Creatinine, Serum 0.76 mg/dL (0.55-1.02); EST Glomerular Filtration Rate 81 mL/min (>60); Est Glom Filt Rate - Afr Amer 98 mL/min (>60); Estimated Creatinine Clearance 61.86 ml/min; Glucose 160 mg/dL (74-106); Potassium 3.4 mmol/L (3.5-5.1); Sodium Level 142 mmol/L (136-145)
--- NOTE | 2018-05-30 23:06 | NURSING ---
Called ED police judge, Erica at this time to confirm Pt okay to come to PCU.
[2018-05-31] VITALS (10 sets, daily range): BP systolic 118–132; BP diastolic 58–65; PULSE 64–75; RESP 16; TEMP 36.6–36.9; O2SAT 94–100
[2018-05-31] MEDS: 0.9% Normal Saline 1,000 ML 100 ML IV ×2 (00:28→10:30)
[2018-05-31 00:42] LABS: Thyroid Stim Hormone (TSH) 4.57 uIU/mL (0.358-3.74)
[2018-05-31 05:58] LABS: Absolute Lymphocyte Count 2.72 X10^3/ul (0.83-4.51); Absolute Neutrophil Count 2.4 X10^3/uL (2.0-7.7); Basophil# 0.03 X10^3/uL; Basophil% 0.5 % (0-1); Eosinophil# 0.18 X10^3/uL; Hematocrit 33.8 % (37-47); Hemoglobin 11.4 g/dl (12.0-15.0); Lymphocyte # 2.72 X10^3/ul (4.0); Lymphocyte % 45.3 % (19-41); Mean Corp Hgb Conc 33.7 g/gl (32-36); Mean Corpuscular Hgb 30.8 pg (27.0-32.0); Mean Corpuscular Volume 91.4 fL (81-99); Mean Platelet Vol. 10.3 fl (6.2-12.0); Monocyte# 0.62 X10^3/uL; Monocyte% 10.3 % (0-10); Neutrophil # 2.44 X10^3/uL (2.7-7.7); Neutrophil % 40.6 % (47-70); Platelet Count 216 K/mm3 (150-450); RBC Distribution Width CV 12.9 % (11.6-14.6); RBC Distribution Width SD 42.8 fl (35.1-43.9)
[2018-05-31 06:02] LABS: POSITIVE COUNT NO; POSITIVE DIFFERENTIAL NO; POSITIVE MORPHOLOGY NO
[2018-05-31 06:11] LABS: Prothrombin Time (Protime)PT. 12.7 SECONDS (11.7-14.9)
[2018-05-31 06:12] LABS: Partial Thromboplast Time 25.3 Seconds (24.1-36.2)
[2018-05-31] MEDS: Aspirin E.C. 81 MG Tablet PO (06:13)
[2018-05-31] MEDS: Lisinopril 5 MG Tablet PO (06:13)
[2018-05-31] MEDS: Clopidogrel Bisulfate 75 MG Tablet PO (06:13)
[2018-05-31 06:19] LABS: ALB/GLOB Ratio 1.2 RATIO (0.9-2.4); AST(SGOT) 19 U/L (15-37); Alanine Aminotransfer ALT/SGPT 22 U/L (13-56); Alkaline Phosphatase 48 U/L (45-117); Anion Gap 11 (5-15); BUN 5 mg/dL (7-18); BUN/Creat Ratio 9.2 RATIO (10-20); Calcium,Total 7.9 mg/dL (8.5-10.1); Chloride 113 mmol/L (98-107); Cholesterol 144 mg/dL (200); Creatinine, Serum 0.54 mg/dL (0.55-1.02); EST Glomerular Filtration Rate 120 mL/min (>60); Est Glom Filt Rate - Afr Amer 145 mL/min (>60); Estimated Creatinine Clearance 87.06 ml/min; Globulin 2.6 g/dL (2.2-4.2); Glucose 210 mg/dL (74-106); High Density Lipoprotein 43 mg/dL; Potassium 3.7 mmol/L (3.5-5.1); Protein, Total 5.6 g/dL (6.4-8.2); Sodium Level 145 mmol/L (136-145); Thyroid Stim Hormone (TSH) 2.66 uIU/mL (0.358-3.74); Triglycerides 128 mg/dL; Very Low Density Lipoprotein 26 mg/dL (5-40)
[2018-05-31 07:00] LABS: Bedside Glucose 230 mg/dL (70-110)
[2018-05-31] MEDS: Insulin Lispro 100 UNIT/ML INSULN.PEN SQ ×3 (08:56→15:17)
[2018-05-31 09:14] LABS: Hemoglobin A1c 10.5 % (4.2-6.3)
--- NOTE | 2018-05-31 10:13 | PCM.CONS.GEN ---
Reason for Consult Date of Consultation: 05/31/18 Reason for Consultation: confusion History of Present Illness: The patient is a 62 year old right handed female who felt poorly yesterday, found to have extremely elevated blood sugars. reports felt funny in alevism at 6pm. she is unclear why her sugars were elevated, which happens around twice yearly for unclear reasons, causing typical nonspecific symptoms which she experienced yesterday, now largely improved except for numbness around left lower lip. no recent illness or med changes, reports good compliance with meds. no etoh or tob. takes daily asa per admit h&P:The patient is a 62 year old F with history of coronary artery disease status post 4 stents, diabetes mellitus type 2 with uncontrolled blood sugar came to ER with very high blood sugar. She is also feeling dizzy and lightheaded and in the ER but she was found more than 500 on Accu-Chek and 518 on BMP. She developed chest pressure while in the ER which resolved after nitro. Her pain was midsternal which radiated to left shoulder with no associated shortness of breath, palpitation or diaphoresis. She has chronic shortness of breath on exertion due to history of COPD. She also said about 3 days ago she had dysarthria noticed by her daughter. She also has gait incoordination for last 3-4 weeks. She denies any prior history of stroke. In ED, initial blood work is negative for DKA with normal acetone, anion gap 9, CO2 23 and negative troponin. Magnesium normal. EKG shows normal sinus rhythm at 72 bpm. Past Medical History Past Medical History (Chronic Problems): Chronic Problems GERD (gastroesophageal reflux disease) (Chronic) Uncontrolled type 2 diabetes mellitus (Chronic) Benign essential hypertension (Chronic) Type 2 diabetes mellitus (Chronic) Hyperlipidemia (Chronic) Coronary artery disease (Chronic) ROMEL LAD 01/21 COPD (chronic obstructive pulmonary disease) (Chronic) cont smoking Tobacco abuse (Chronic) NSTEMI (non-ST elevated myocardial infarction) (Chronic) Allergies Penicillins Allergy (Verified 05/30/18 18:39) Hives hydrocodone bitartrate [From Vicodin] Adverse Reaction (Verified 05/30/18 18:39) Vomiting ibuprofen Adverse Reaction (Verified 05/30/18 18:39) Vomiting Home Medications: Ambulatory Orders Medication Instructions Recorded Lisinopril [Zestril] 5 mg PO DAILY 08/17/15 Aspirin [Adult Low Dose Aspirin EC] 81 mg PO DAILY 02/04/16 Furosemide [Lasix] 40 mg PO DAILY 02/04/16 Simvastatin [Zocor] 40 mg PO QHS 01/24/17 Clopidogrel Bisulfate [Plavix] 75 mg PO DAILY 06/23/17 Metoprolol Tartrate [Lopressor 25 mg PO BID 06/23/17 (beta elder)] Trazodone HCl 50 mg PO QHS 06/23/17 Nitroglycerin [Nitrostat] 0.4 mg SUBLINGUAL Q5M PRN 09/28/17 Sertraline HCl [Zoloft] 50 mg PO DAILY #30 tab 11/29/17 Pantoprazole Sodium [Protonix] 40 mg PO DAILY #30 tab 01/11/18 Insulin Detemir [Levemir FlexPen] 23 units SC BREAKFAST 02/18/18 Ondansetron [Zofran Odt] 4 mg PO Q8H PRN PRN #10 tablet 05/26/18 Oxycodone HCl/Acetaminophen 1 tablet PO Q6H PRN PRN 3 Days #12 05/26/18 [Percocet 5/325] tablet Insulin Detemir [Levemir Flextouch] 26 unit SC QHS 05/30/18 Nitrofurantoin Monohyd/M-Cryst 100 mg PO BID 05/30/18 [Macrobid 100 mg Capsule] Surgical History: angioplasty, cholecystectomy, hysterectomy, - - LAD PCI/ROMEL-02/08/2014 at [facility], stent placement at [facility] 03/15/17 along with percutaneous balloon angioplasty Psychiatric History: No pertinent psych hx 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 Smoking Status: Current every day smoker - *Family History Maternal History Items: Heart Disease Paternal History Items: Heart Disease Sibling History Items: Heart Disease Review of Systems Constitutional: Denies: Chills, Fever, Weight Change HEENT: Denies: Head Aches, Sinus Congestion, Sinus Drainage Cardiovascular: Denies: Chest Pain, Palpitations Respiratory: Denies: Cough, Shortness of breath at rest, Sputum production Gastrointestinal: Denies: Abdominal Pain, Nausea, Vomiting Genitourinary: Denies: Dysuria Musculoskeletal: Denies: Joint Pain, Joint Tenderness Skin: Denies: Rash, Wounds Neurological: Denies: Numbness, Tingling, Focal weakness Psychiatric: Denies: Anxiety, Depression, Homicidal Ideations, Suicidal Ideations Hematologic/ Lymphatic: Denies: Easy Bruising, Easy Bleeding Patient Problems: Active and Suspected Problems Dysarthria (Acute) Objective: give way and nonphysiologic weakness/discoord of rue, distractible sensation intact - Physical Exam General: Alert, Oriented x3, Cooperative HEENT: Atraumatic, PERRLA, EOMI, Normocephalic Neck: Supple, No JVD, Negative Carotid Bruits Lungs: Clear to auscultation, Normal air movement Cardiovascular: Regular rate, No murmurs Abdomen: Bowel Sounds Present, Soft, Non Tender Extremities: No edema, Capillary Refill Less than 3 Seconds Skin: No rashes, No breakdown Musculoskeletal: No Tenderness to Palpation of Joints or Extremities Neurological: Cranial nerves II-XII grossly intact Psych/Mental Status: Normal Affect, Appropriate Vital Signs Temp Pulse Resp BP Pulse Ox 36.6 C 68 16 132/58 H 100 05/31/18 09:00 05/31/18 09:00 05/31/18 09:00 05/31/18 09:00 05/31/18 09:00 Oxygen Delivery Method Room Air Weight: 70.1 kg Body Mass Index (BMI) 27.3 Intake and Output for Last 24 Hours 05/29/18 05/30/18 05/31/18 23:59 23:59 23:59 Intake Total 199.3 / 199.3 494 / 494 Balance 199.3 / 199.3 494 / 494 Laboratory Tests Past 24 Hrs 05/30/18 05/31/18 05/31/18 23:55 02:46 05:30 WBC RBC Hgb Hct MCV MCH MCHC RDW RDW Differential Plt Count MPV Immature Gran % (Auto) Neut % (Auto) Lymph % (Auto) [place] % (Auto) Eos % (Auto) Baso % (Auto) Absolute Neuts (auto) Absolute Lymphs (auto) Total Counted PT INR APTT Sodium 145 Potassium 3.7 Chloride 113 H Carbon Dioxide 21.0 Anion Gap 11 BUN 5 L Creatinine 0.54 L Estim Creat Clear Calc 87.06 Est GFR (MDRD) Af Amer 145 Est GFR (MDRD) Non-Af 120 BUN/Creatinine Ratio 9.2 L Glucose 210 H Hemoglobin A1c Calcium 7.9 L Total Bilirubin 0.30 AST 19 ALT 22 Alkaline Phosphatase 48 Troponin I < 0.015 < 0.015 < 0.015 Total Protein 5.6 L Albumin 3.0 L Globulin 2.6 Albumin/Globulin Ratio 1.2 Triglycerides 128 Cholesterol 144 LDL Cholesterol 75 VLDL Cholesterol 26 HDL Cholesterol 43 TSH 4.57 H 2.66 05/31/18 05/31/18 05/31/18 05:30 05:30 05:30 WBC 6.0 RBC 3.70 L Hgb 11.4 L Hct 33.8 L MCV 91.4 MCH 30.8 MCHC 33.7 RDW 12.9 RDW Differential 42.8 Plt Count 216 MPV 10.3 Immature Gran % (Auto) 0.300 Neut % (Auto) 40.6 L Lymph % (Auto) 45.3 H [place] % (Auto) 10.3 H Eos % (Auto) 3.0 Baso % (Auto) 0.5 Absolute Neuts (auto) 2.4 Absolute Lymphs (auto) 2.72 Total Counted Not Reportable PT 12.7 INR 1.0 APTT 25.3 Sodium Potassium Chloride Carbon Dioxide Anion Gap BUN Creatinine Estim Creat Clear Calc Est GFR (MDRD) Af Amer Est GFR (MDRD) Non-Af BUN/Creatinine Ratio Glucose Hemoglobin A1c 10.5 H Calcium Total Bilirubin AST ALT Alkaline Phosphatase Troponin I Total Protein Albumin Globulin Albumin/Globulin Ratio Triglycerides Cholesterol LDL Cholesterol VLDL Cholesterol HDL Cholesterol TSH POC Glucose 05/31/18 06:45 POC Glucose 230 H Current Home Med List Medication Instructions Recorded Confirmed Type Lisinopril [Zestril] 5 mg PO DAILY 08/17/15 05/30/18 History Aspirin [Adult Low Dose Aspirin EC] 81 mg PO DAILY 02/04/16 05/30/18 History Furosemide [Lasix] 40 mg PO DAILY 02/04/16 05/30/18 History Simvastatin [Zocor] 40 mg PO QHS 01/24/17 05/30/18 History Clopidogrel Bisulfate [Plavix] 75 mg PO DAILY 06/23/17 05/30/18 History Metoprolol Tartrate [Lopressor 25 mg PO BID 06/23/17 05/30/18 History (beta elder)] Trazodone HCl 50 mg PO QHS 06/23/17 05/30/18 History Nitroglycerin [Nitrostat] 0.4 mg SUBLINGUAL Q5M PRN 09/28/17 05/30/18 History Sertraline HCl [Zoloft] 50 mg PO DAILY #30 tab 11/29/17 05/30/18 Rx Pantoprazole Sodium [Protonix] 40 mg PO DAILY #30 tab 01/11/18 05/30/18 Rx Insulin Detemir [Levemir FlexPen] 23 units SC BREAKFAST 02/18/18 05/30/18 History Ondansetron [Zofran Odt] 4 mg PO Q8H PRN PRN #10 tablet 05/26/18 05/30/18 Rx Oxycodone HCl/Acetaminophen 1 tablet PO Q6H PRN PRN 3 Days #12 05/26/18 05/30/18 Rx [Percocet 5/325] tablet Insulin Detemir [Levemir Flextouch] 26 unit SC QHS 05/30/18 05/30/18 History Nitrofurantoin Monohyd/M-Cryst 100 mg PO BID 05/30/18 05/30/18 History [Macrobid 100 mg Capsule] Current Medications Generic Name Dose Route Start Last Admin Trade Name Freq PRN Reason Stop Dose Admin Aspirin 81 mg 05/31/18 10:00 05/31/18 06:13 Ecotrin PO 81 mg DAILY ROSEMARY Administration Atorvastatin Calcium 20 mg 05/31/18 22:00 Lipitor PO QHS [facility] Clopidogrel Bisulfate 75 mg 05/31/18 10:00 05/31/18 06:13 Plavix PO 75 mg DAILY ROSEMARY Administration Dextrose 12.5 gm 05/30/18 20:48 D50w Syringe IV X1 PRN HYPOGLYCEMIA Dextrose 0 gm 05/30/18 23:33 D50w Syringe IV X1 PRN Hypoglycemia Protocol Enoxaparin Sodium 40 mg 05/31/18 10:00 Lovenox SC DAILY [facility] Furosemide 40 mg 05/31/18 10:00 Lasix PO DAILY ROSEMARY Glucagon 1 mg 05/30/18 23:33 IM .X1 PRN Hypoglycemia Sodium Chloride 1,000 mls @ 100 mls/hr 05/30/18 23:19 05/31/18 00:28 IV 100 mls/hr .Q10H ROSEMARY Administration Insulin Glargine 15 units 05/31/18 10:00 Lantus (Bkc) SC BID [facility] Insulin Human Lispro 0 unit 05/31/18 07:00 05/31/18 08:56 Humalog Kwikpen (Bkc) SQ 4 units ACHS ROSEMARY Administration Protocol Lisinopril 5 mg 05/31/18 10:00 05/31/18 06:13 Zestril PO 5 mg DAILY [facility] Administration Metoprolol Tartrate 25 mg 05/31/18 10:00 Lopressor (Beta Elder) PO BID [facility] Nitrofurantoin Macrocrystals 100 mg 05/31/18 10:00 Macrobid PO 05/31/18 22:01 BID [facility] Nitroglycerin 0.4 mg 05/30/18 23:19 Nitrostat SUBLINGUAL Q5M PRN CHEST PAIN Nutritional Formula (Lactose Free) 120 ml 05/31/18 10:00 Glucerna Shake PO 4X/DAY [facility] Ondansetron HCl 4 mg 05/30/18 23:19 Zofran Odt PO Q8H PRN PRN NAUSEA Oxycodone HCl 5 mg 05/31/18 00:06 Oxyir PO Q6H PRN PRN PAIN Pantoprazole Sodium 40 mg 05/31/18 10:00 Protonix PO DAILY [facility] Sertraline HCl 50 mg 05/31/18 10:00 Zoloft PO DAILY [facility] Sodium Chloride 5 - 30 ml 05/31/18 00:11 IV UD PRN SALINE FLUSH Trazodone HCl 50 mg 05/31/18 22:00 Desyrel PO QHS [facility] CAT scan reviewed, no acute MRI reviewed, no acute. two small chronic lacunes. Assessment/Plan All Active Problems Dysarthria (Acute) Chest pain (Acute) VTE (venous thromboembolism) (Resolved) encephalopathy due to hyperglycemia, resolved continue asa daily ok to dc from neuro when metabolically stabilized
[2018-05-31] MEDS: Enoxaparin 40 MG/0.4 ML Syringe SC (10:25)
[2018-05-31] MEDS: Metoprolol Tartrate 25 MG Tablet PO (10:26)
[2018-05-31] MEDS: Furosemide 40 MG Tablet PO (10:26)
[2018-05-31] MEDS: Nitrofurantoin Macrocrystals 100 MG Capsule PO (10:27)
[2018-05-31] MEDS: Sertraline 50 MG Tablet PO (10:27)
[2018-05-31] MEDS: Pantoprazole Sodium 40 MG Tablet PO (10:27)
[2018-05-31] MEDS: Glucerna Shake 120 ML LIQUID PO (10:30)
--- NOTE | 2018-05-31 10:45 | CASEMGMT ---
Intro role to RN GIANCARLO. Pt resting in bed. Awake/alert/oriented. Pt reports she is independent with ambulation and ADL's and requires no DME's. Pt states wishes to return home upon discharge and decline offer of HHC. Pt reports she has a glucometer but states, I don't think it's working right. Script for glucometer obtained and given to patient. Pt agreeable to picking it up. Instructed pt to talk with pharmacist when she picks it up so instructions for proper use of the machine can be given. Pt voices understanding. Pt voices she does have difficulty being able to afford her medication and agreeable to talking with SW. Pt also voices would like to speak with SW re: wanting to make changes with her POA. Referral made to NIKHIL Colon, for financial issues and Adv Directives. Pt voices no other needs at this time. CM to follow for any discharge planning needs that may arise. Jamil BARNETT RN, CM
--- NOTE | 2018-05-31 12:01 | CASEMGMT ---
RN GIANCARLO said patient wants to change her healthcare POA and she is having trouble affording her insulin. SW has seen patient in the past and have given her prescription assistance program applications for her insulin. [facility]. SW did place a call to [facility] and left a voice mail requesting a return call. SW met with patient and completed a new healthcare power of civil rights attorney. Copies were made, one placed in chart to replace previous POA papers. Other copies were given to patient. SW also gave patient information on [employer], [employer], and Dannielle Nordisk's patient assistance program. SW also gave her information on help with Medicare Part D expenses and suggested if she needs help signing up for a prescription D program to call [facility] Insurance Information program as they are very helpful. Carmen WADE MSW
[2018-05-31 12:31] LABS: Bedside Glucose 383 mg/dL (70-110)
[2018-05-31 15:05] LABS: Bedside Glucose 259 mg/dL (70-110)
--- NOTE | 2018-05-31 15:13 | PCM.DC ---
- Discharge Diagnoses Current Active Problems: Current Active and Chronic Problems Dysarthria (Acute) You will use the following diet at home:: Calorie/Carbohydrate Controlled (specify 1200, 1400, etc) Discharge Activity: Return to Normal Activity Call your doctor if you observe: Shortness of breath, Dizziness, Fainting spells, Chest pain Additional Instructions: Continue to check blood sugar before meals and at bedtime. Document findings. Bring documented blood glucose readings to follow-up visit with healthcare provider. Allergies/Adverse Reactions: Allergies Penicillins Allergy (Verified 05/30/18 18:39) Hives hydrocodone bitartrate [From Vicodin] Adverse Reaction (Verified 05/30/18 18:39) Vomiting ibuprofen Adverse Reaction (Verified 05/30/18 18:39) Vomiting Medications to take at Discharge Lisinopril [Zestril] 5 mg PO DAILY 08/17/15 Aspirin [Adult Low Dose Aspirin EC] 81 mg PO DAILY 02/04/16 Furosemide [Lasix] 40 mg PO DAILY 02/04/16 Simvastatin [Zocor] 40 mg PO QHS 01/24/17 Clopidogrel Bisulfate [Plavix] 75 mg PO DAILY 06/23/17 Metoprolol Tartrate [Lopressor (beta elder)] 25 mg PO BID 06/23/17 Trazodone HCl 50 mg PO QHS 06/23/17 Nitroglycerin [Nitrostat] 0.4 mg SUBLINGUAL Q5M PRN 09/28/17 Sertraline HCl [Zoloft] 50 mg PO DAILY #30 tab 11/29/17 Pantoprazole Sodium [Protonix] 40 mg PO DAILY #30 tab 01/11/18 Insulin Detemir [Levemir FlexPen] 23 units SC BREAKFAST 02/18/18 Ondansetron [Zofran Odt] 4 mg PO Q8H PRN PRN #10 tablet 05/26/18 Oxycodone HCl/Acetaminophen [Percocet 5-325] 1 tablet PO Q6H PRN PRN 3 Days #12 tablet 05/26/18 Nitrofurantoin Monohyd/M-Cryst [Macrobid 100 mg Capsule] 100 mg PO BID 05/30/18 Glimepiride [Amaryl] 4 mg PO DAILY 05/31/18 Glimepiride [Amaryl] 4 mg PO DAILY #30 tab 05/31/18 Insulin Detemir [Levemir Flextouch] 26 unit SC QHS #1 insuln.pen 05/31/18 Metformin HCl 1,000 mg PO BID #60 tab 05/31/18 Metformin HCl [Glucophage] 1,000 mg PO BIDCM 05/31/18 The following prescriptions were given: Glimepiride [Amaryl] 4 mg PO DAILY #30 tab Insulin Detemir [Levemir Flextouch] 26 unit SC QHS #1 insuln.pen Metformin HCl 1,000 mg PO BID #60 tab Primary Care Physician: Nadira Sifuentes NP-C [Primary Care Provider] - Please follow up with your Primary Care Physician in: As scheduled next week Test Results: Test results from this visit will be discussed in further detail at your follow-up appointment, if applicable. Proposed Discharge Date: 05/31/18
--- NOTE | 2018-05-31 15:16 | PCM.DC.SUM ---
<Nguyen Price - Last Filed: 05/31/18 15:31> Discharge Date and Diagnosis Date of Admission: 05/30/18 Date of Discharge: 05/31/18 - Primary Discharge Diagnosis Active and Suspected Problems 1. Acute metabolic encephalopathy secondary to hyperglycemia 2. Atypical chest pain, ACS ruled out - Secondary Discharge Diagnosis Chronic Problems GERD (gastroesophageal reflux disease) (Chronic) Uncontrolled type 2 diabetes mellitus (Chronic) Benign essential hypertension (Chronic) Type 2 diabetes mellitus (Chronic) Hyperlipidemia (Chronic) Coronary artery disease (Chronic) ROMEL LAD 01/21 COPD (chronic obstructive pulmonary disease) (Chronic) cont smoking Tobacco abuse (Chronic) NSTEMI (non-ST elevated myocardial infarction) (Chronic) Hospital Course and Treatment Imaging Results: Diagnostic Data Brain CT 05/30/18 20:45 IMPRESSION: Normal unenhanced CT scan of the brain. Electronically Signed: Ja Mott MD at 21:25 EDT Tel , Service support , Dr. Silva- Neurology Operations: None Procedures: None Summary of Care Provided: The patient is a 62 year old F admitted 05/30/2019 due to chest pain and uncontrolled diabetes. She has a past medical history of CAD status post stents ?4, type 2 diabetes mellitus, tobacco dependence, COPD, hyperlipidemia, hypertension. Glucose elevated on admission. Hemoglobin A1c 10.5%. Negative for DKA. Patient has intermittently ran out of her medication regimen. History of noncompliance of medication regimen. Discharged on previous Lantus twice daily regimen, metformin 1000 mg twice daily and glimepiride 4 mg daily. She has a follow-up appointment at [facility] next week. ACS ruled out. Patient denies further chest pain. Troponin negative ?4. Patient had recent stress test March 29, 2018 which was negative for ischemia. She also had a cardiac catheterization January 2018 which showed nonobstructive coronary artery disease distal to stent and LAD. Neurology consulted due to nonspecific neurologic symptoms. Brain CT unremarkable. Neurology states okay to DC from neuro standpoint. Suspected encephalopathy due to hyperglycemia. Patient will continue home aspirin, statin, Plavix regimen at discharge. Prescription given for new glucose monitor. Patient instructed to check blood glucose before meals and at bedtime and document findings to report to healthcare provider. General: Alert, Oriented x3, Cooperative HEENT: Atraumatic, PERRLA, EOMI, Normocephalic Neck: Supple, No JVD, Negative Carotid Bruits Lungs: Clear to auscultation, Normal air movement Cardiovascular: Regular rate, Regular Rhythm, Normal S1, Normal S2, No murmurs Abdomen: Bowel Sounds Present, Soft, Non Tender, Non-Distended Extremities: No edema, Capillary Refill Less than 3 Seconds Skin: No rashes, No breakdown Musculoskeletal: No Tenderness to Palpation of Joints or Extremities, Arthritic Changes Neurological: Cranial nerves II-XII grossly intact, Neuro grossly intact Psych/Mental Status: Normal Affect, Appropriate Patient seen and examined prior to discharge. Physical assessment as noted above. Patient stable for discharge home with follow-up with primary healthcare provider next week as noted above. This patient was seen by MAMI Barnes under the supervision of Dr. Pate. Discharge Diet: Carb Control Diet Discharge Activity: Return to Normal Activity Call your doctor if you observe: Shortness of breath, Dizziness, Fainting spells, Chest pain Home Medications: Medications to take at Discharge RX: Lisinopril [Zestril] 5 mg PO DAILY 08/17/15 RX: Aspirin [Adult Low Dose Aspirin EC] 81 mg PO DAILY 02/04/16 RX: Furosemide [Lasix] 40 mg PO DAILY 02/04/16 RX: Simvastatin [Zocor] 40 mg PO QHS 01/24/17 RX: Clopidogrel Bisulfate [Plavix] 75 mg PO DAILY 06/23/17 RX: Metoprolol Tartrate [Lopressor (beta elder)] 25 mg PO BID 06/23/17 RX: Trazodone HCl 50 mg PO QHS 06/23/17 RX: Nitroglycerin [Nitrostat] 0.4 mg SUBLINGUAL Q5M PRN 09/28/17 RX: Sertraline HCl [Zoloft] 50 mg PO DAILY #30 tab 11/29/17 RX: Pantoprazole Sodium [Protonix] 40 mg PO DAILY #30 tab 01/11/18 RX: Insulin Detemir [Levemir FlexPen] 23 units SC BREAKFAST 02/18/18 RX: Ondansetron [Zofran Odt] 4 mg PO Q8H PRN PRN #10 tablet 05/26/18 RX: Oxycodone HCl/Acetaminophen [Percocet 5-325] 1 tablet PO Q6H PRN PRN 3 Days #12 tablet 05/26/18 RX: Nitrofurantoin Monohyd/M-Cryst [Macrobid 100 mg Capsule] 100 mg PO BID 05/30/18 Glimepiride [Amaryl] 4 mg PO DAILY 05/31/18 Metformin HCl [Glucophage] 1,000 mg PO BIDCM 05/31/18 RX: Glimepiride [Amaryl] 4 mg PO DAILY #30 tab 05/31/18 RX: Insulin Detemir [Levemir Flextouch] 26 unit SC QHS #1 insuln.pen 05/31/18 RX: Metformin HCl 1,000 mg PO BID #60 tab 05/31/18 Following Prescrptions Were Given to Patient: RX: Glimepiride [Amaryl] 4 mg PO DAILY #30 tab RX: Insulin Detemir [Levemir Flextouch] 26 unit SC QHS #1 insuln.pen RX: Metformin HCl 1,000 mg PO BID #60 tab Primary Care Physician: Nadira Sifuentes NP-C [Primary Care Provider] - Please follow up with your Primary Care Physician in: As scheduled next week Disposition: Home Minutes spent on discharge:: 35 Patient Condition:: Stable Medical Necessity - Tobacco Use Smoking Status: Current every day smoker Meaningful Use Info Meaningful Use Diagnoses (Choose all that apply): None applicable <Espinoza Pate - Last Filed: 05/31/18 16:03> Discharge Date and Diagnosis - Secondary Discharge Diagnosis Chronic Problems GERD (gastroesophageal reflux disease) (Chronic) Uncontrolled type 2 diabetes mellitus (Chronic) Benign essential hypertension (Chronic) Type 2 diabetes mellitus (Chronic) Hyperlipidemia (Chronic) Coronary artery disease (Chronic) ROMEL LAD 01/21 COPD (chronic obstructive pulmonary disease) (Chronic) cont smoking Tobacco abuse (Chronic) NSTEMI (non-ST elevated myocardial infarction) (Chronic) Hospital Course and Treatment Summary of Care Provided: Addendum: Dr. Pate I personally examined the patient and reviewed the chart. I agree with the above. She continues to have difficutly with either affording her medications or remembering to take them. She has been off of her metformin and glimepiride for over a month. Discussed with her that her symptoms were all d/t her elevated glucose (she was not in DKA). He refilled her prescriptions from the pharmacy her so she at least has enough to get her through next week when she has f/u with her PCP. Code Visit Inpatient E&M: 57061 Disch Hosp
--- NOTE | 2018-05-31 15:40 | CASEMGMT ---
SW spoke with patient about [facility] and she was interested. SW made a referral to [facility]. SW also receive a return call from [facility] and patient was supposed to complete a financial form for them and she has not followed through on this for help with meds. Carmen WADE MSW
== END 2018-05-31 15:14 | disposition home or self-care (01) ==
LOC: ED 22:13 → PCU 23:08
PROVIDERS: Admitting Provider Internal Medicine; Emergency Provider Emergency Medicine; Family Provider Nurse Practitioner Family; PCP Nurse Practitioner Family; Visit Provider Family Medicine
DX: G93.41 Metabolic encephalopathy (principal); E11.65 Type 2 diabetes mellitus with hyperglycemia; I25.10 Atherosclerotic heart disease of native coronary artery without angina pectoris; R29.701 NIHSS score 1; R06.00 Dyspnea, unspecified; I25.2 Old myocardial infarction; I10 Essential (primary) hypertension; J44.9 Chronic obstructive pulmonary disease, unspecified; Z95.5 Presence of coronary angioplasty implant and graft; E78.5 Hyperlipidemia, unspecified; F17.200 Nicotine dependence, unspecified, uncomplicated; Z79.899 Other long term (current) drug therapy; Z79.02 Long term (current) use of antithrombotics/antiplatelets; Z79.4 Long term (current) use of insulin; K21.9 Gastro-esophageal reflux disease without esophagitis; R07.89 Other chest pain; I65.21 Occlusion and stenosis of right carotid artery
CPT/HCPCS: 36415; 70450; 70551; 80048; 80053; 80061; 81001; 82009; 82803; 82962; 83036; 83735; 83880; 84100; 84443; 84484; 85025; 85610; 85730; 93005; 93880; 96360; 96361; 96372; 97161; 97166; 99218; 99284; 99406; J7030; A4216; G0378

== ENCOUNTER 2018-07-02 11:03 | Emergency (ER) | payer SELFPAY ==
[2017-03-16 08:30] VITALS: BMI 29.2
[2018-07-02 11:04] VITALS: BP 164/69; PULSE 87; RESP 20; TEMP 36.6; O2SAT 100; BMI 26.7
--- NOTE | 2018-07-02 11:38 | EKG12_ITS ---
Test Reason : CHEST PAIN Blood Pressure : / mmHG Vent. Rate : 076 BPM Atrial Rate : 076 BPM P-R Int : 134 ms QRS Dur : 078 ms QT Int : 406 ms P-R-T Axes : 053 057 054 degrees QTc Int : 456 ms Normal sinus rhythm Normal ECG Confirmed by ADRIAN BARFIELD, DAVID ([id number]), visual effects editor ARON HASKINS ([id number] on 07/05/2018 8:59:21 AM Referred By: Confirmed By:DAVID CAMPBELL MD
[2018-07-02 11:42] VITALS: O2SAT 95
[2018-07-02 11:49] LABS: Absolute Lymphocyte Count 3.34 X10^3/ul (0.83-4.51); Absolute Neutrophil Count 4.2 X10^3/uL (2.0-7.7); Basophil# 0.05 X10^3/uL; Basophil% 0.6 % (0-1); Eosinophil# 0.26 X10^3/uL; Eosinophils% 3.1 % (0-5); Hematocrit 40.8 % (37-47); Hemoglobin 14.1 g/dl (12.0-15.0); Lymphocyte # 3.34 X10^3/ul (4.0); Lymphocyte % 39.6 % (19-41); Mean Corp Hgb Conc 34.6 g/gl (32-36); Mean Corpuscular Hgb 31.5 pg (27.0-32.0); Mean Corpuscular Volume 91.3 fL (81-99); Mean Platelet Vol. 11.3 fl (6.2-12.0); Monocyte% 7.1 % (0-10); Neutrophil # 4.15 X10^3/uL (2.7-7.7); Neutrophil % 49.2 % (47-70); POSITIVE COUNT NO; POSITIVE DIFFERENTIAL NO; POSITIVE MORPHOLOGY NO; Platelet Count 210 K/mm3 (150-450); RBC Distribution Width CV 12.1 % (11.6-14.6); RBC Distribution Width SD 40.2 fl (35.1-43.9); Red Blood Count 4.47 M/mm3 (4.2-5.4); White Blood Count 8.4 K/mm3 (4.4-11.0)
[2018-07-02] MEDS: 0.9% Normal Saline 1,000 ML 150 ML IV (11:51)
[2018-07-02] MEDS: Ondansetron 4 MG/2 ML Vial IV (11:51)
[2018-07-02] MEDS: Morphine 4 MG/ML Syringe IV (11:51)
--- NOTE | 2018-07-02 12:00 | NURSING ---
HEMOLIZED, LAB WILL REPRINT LABS
[2018-07-02 12:04] LABS: D-Dimer Quantitative (DVT/PE) 0.28 FEU/ug/m (0.27-0.49)
--- NOTE | 2018-07-02 12:10 | RAD_ITS ---
STUDY: X-RAY CHEST REASON FOR EXAM: Female, 62 years old. Chest pain. Asthma and COPD. TECHNIQUE: Single AP portable view of the chest. COMPARISON: 05/01/2018. FINDINGS: The lungs are clear and expanded. There is no demonstrated pleural abnormality. Normal size heart. Normal mediastinum and jovan. Normal visualized pulmonary arteries. Normal visualized aortic arch and descending thoracic aorta. Normal visualized thoracic spine. Normal visualized ribs, clavicles, and shoulders. There is no demonstrated abnormality of the visualized soft tissue structures of the upper abdomen. RAD/Chest 1 View (Portable) IMPRESSION: Normal x-ray examination of the chest. Electronically Signed: Izaiah Maza MD at 12:50 EDT , Service support ,
[2018-07-02 12:28] LABS: Anion Gap 7 (5-15); BUN 9 mg/dL (7-18); BUN/Creat Ratio 12.6 RATIO (10-20); Calcium,Total 8.6 mg/dL (8.5-10.1); Chloride 104 mmol/L (98-107); Creatinine, Serum 0.71 mg/dL (0.55-1.02); EST Glomerular Filtration Rate 88 mL/min (>60); Est Glom Filt Rate - Afr Amer 106 mL/min (>60); Estimated Creatinine Clearance 66.22 ml/min; Glucose 250 mg/dL (74-106); Potassium 4.3 mmol/L (3.5-5.1); Sodium Level 136 mmol/L (136-145)
--- NOTE | 2018-07-02 13:01 | ED.DCSUM_ITS ---
- ER Visit Summary Date of Service: 07/02/18 Chief Complaint: Chest pain History of Present Illness: The patient is a 62 F who states she developed left lung pain 2 days ago and then today has left anterior chest pain. Pain is worse with deep breath and with movement. She states she vomited 3 times today because the pain was so severe. She denies any history of DVT. She does have significant history for cardiac disease. Physical Examination: Blood pressure is 1 6469, temperature 98, heart rate 87, respiratory rate 20, pulse ox 100% on room air. Head neck examination unremarkable. Heart is regular rate and rhythm. Lung sounds are clear. She has reproducible tenderness in the left lower ribs posteriorly. There is no rash or crepitus. Abdomen is soft and nontender. Lower extremity examination reveals no significant calf tenderness or edema. Test Results: EKG is sinus at 76 with no sign of acute ischemia. CBC is normal. Chemistry studies significant for glucose of 250. Troponin is less than 0.015. D-dimer is normal at 0.28. Portable chest x-ray is normal. Emergency Department Course and Treatment: Patient was initially given morphine and Zofran. I did review her prior cardiac workups including a dobutamine stress test in January and a stress echo in March which were unremarkable. Patient be given a single dose of oxycodone and Flexeril here. Should be given a prescription for Flexeril and continue Tylenol at home for pain. Treatment Plan: [] Disposition: Discharge Impression: Chest wall pain This note was generated with [employer] dictation software. It may contain incorrect words, spelling, and punctuation that were not noted in review of the chart prior to signing ED Disposition - Plan for ED Patient: Chief Complaint: Chest Pain Referrals: Nadira Sifuentes, [email or web address] [Primary Care Provider] -
--- NOTE | 2018-07-02 13:01 | ED.DEP ---
ED Disposition - Plan for ED Patient: Disposition: Home or Assisted Living Chief Complaint: Chest Pain Instructions: ED Strain Chest Wall Prescriptions: Cyclobenzaprine [Flexeril] 10 mg PO TID PRN #20 tablet PRN Reason: Muscle Spasm Referrals: Nadira Sifuentes, [employer]OP[employer]-C [Primary Care Provider] - 5-7 Days
[2018-07-02] MEDS: oxyCODONE 5 MG Tablet PO (13:03)
[2018-07-02 13:07] VITALS: BP 130/57; PULSE 69; RESP 12; O2SAT 97
== END 2018-07-02 13:16 | disposition home or self-care (01) ==
LOC: ED 13:09
PROVIDERS: Emergency Provider Emergency Medicine; Family Provider Nurse Practitioner Family; PCP Nurse Practitioner Family
DX: R07.89 Other chest pain (principal); R06.00 Dyspnea, unspecified; R11.10 Vomiting, unspecified; I25.10 Atherosclerotic heart disease of native coronary artery without angina pectoris; I25.2 Old myocardial infarction; J44.9 Chronic obstructive pulmonary disease, unspecified; K21.9 Gastro-esophageal reflux disease without esophagitis; E11.9 Type 2 diabetes mellitus without complications; I10 Essential (primary) hypertension; E78.00 Pure hypercholesterolemia, unspecified; Z95.5 Presence of coronary angioplasty implant and graft; Z79.82 Long term (current) use of aspirin; Z79.4 Long term (current) use of insulin; Z79.84 Long term (current) use of oral hypoglycemic drugs; Z79.02 Long term (current) use of antithrombotics/antiplatelets; Z79.899 Other long term (current) drug therapy; Z72.0 Tobacco use
CPT/HCPCS: 71045; 80048; 84484; 85025; 85379; 93005; 96361; 96374; 96375; 99285; J7030; J2405

== ENCOUNTER 2018-07-10 16:40 | Emergency (ER) | payer SELFPAY ==
[2017-03-16 08:30] VITALS: BMI 29.2
[2018-07-10 16:41] VITALS: BP 146/76; PULSE 110; RESP 28; TEMP 36.2; O2SAT 100; BMI 26.3
[2018-07-10 17:02] VITALS: BP 154/76; PULSE 97; RESP 20; O2SAT 99
--- NOTE | 2018-07-10 17:05 | EKG12_ITS ---
Test Reason : CHEST PAIN Blood Pressure : / mmHG Vent. Rate : 094 BPM Atrial Rate : 094 BPM P-R Int : 124 ms QRS Dur : 078 ms QT Int : 386 ms P-R-T Axes : 039 033 024 degrees QTc Int : 482 ms Normal sinus rhythm Normal ECG Confirmed by DAVID CAMPBELL MD ([id number]), editorial director ARON HASKINS ([id number]) on 07/17/2018 3:26:17 PM Referred By: CE Confirmed By:DAVID CAMPBELL MD
--- NOTE | 2018-07-10 17:05 | RAD_ITS ---
STUDY: X-RAY CHEST REASON FOR EXAM: Female, 62 years old. Cough and chest pain. TECHNIQUE: Single AP portable view of the chest. COMPARISON: July 02, 2018. FINDINGS: Cardiac monitoring leads are present. The lungs are expanded. There is interstitial thickening present at both lung bases. There is pleural fibrotic thickening of the pulmonary lung apices. Normal size heart. There appears to be coronary artery vascular calcifications and/or endovascular stents. Normal mediastinum and jovan. Normal visualized pulmonary arteries. There is atherosclerotic calcification of the aortic arch with tortuosity. Normal visualized thoracic spine. Normal visualized ribs, clavicles, and shoulders. There is no demonstrated abnormality of the visualized soft tissue structures of the upper abdomen. RAD/Chest 1 View (Portable) IMPRESSION: 1. No radiographic evidence of acute cardiopulmonary disease. 2. Sequela of coronary artery vascular disease. Electronically Signed: Blanca Marie MD at 17:43 EDT , Service support ,
--- NOTE | 2018-07-10 17:10 | ED.DCSUM_ITS ---
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 She states she started sweating, became short of breath, and epigastric pain that radiates up to the left shoulder. Patient is a diabetic and states her blood sugars were in the 340s. She has a significant history of coronary disease and UT. Physical Examination: Blood pressure is 146/76, temperature 97.2, heart rate 110, respiratory rate 28, pulse ox 100% on room air. Patient is sitting upright in bed no acute distress. She is alert and talkative. Head neck examination is unremarkable. Heart is regular rate and rhythm at 97 at the time of my exam. Lung sounds are clear. She remains mildly tachypneic. Abdomen is soft nontender. Lower extremity examination reveals no calf tenderness or edema. Test Results: EKG is sinus at 94 with no sign of acute ischemia. Portable chest x-ray is unremarkable. CBC and chemistry studies reveal glucose of 425, otherwise unremarkable. Urinalysis shows thousand glucose but no sign of infection. Troponin is less than 0.015. Emergency Department Course and Treatment: Patient was given Phenergan along with a GI cocktail and IV fluids. On repeat evaluation she feels significantly improved. Blood pressure is 146/65 with a heart rate of 84. Patient will continue her current medical regimen. Treatment Plan: [] Disposition: Discharge Impression: Atypical chest pain, resolved This note was generated with [employer] dictation software. It may contain incorrect words, spelling, and punctuation that were not noted in review of the chart prior to signing ED Disposition - Plan for ED Patient: Disposition: Home or Assisted Living Chief Complaint: General Illness Instructions: ED Dizziness UKO Additional Instructions: Follow-up with your new physician as discussed.
[2018-07-10] MEDS: proMETHazine 25 MG/ML Syringe 12.5 MG IV (17:15)
[2018-07-10 17:27] LABS: Absolute Lymphocyte Count 2.98 X10^3/ul (0.83-4.51); Absolute Neutrophil Count 3.1 X10^3/uL (2.0-7.7); Basophil# 0.02 X10^3/uL; Basophil% 0.3 % (0-1); Eosinophil# 0.27 X10^3/uL; Eosinophils% 3.9 % (0-5); Hematocrit 36.6 % (37-47); Lymphocyte # 2.98 X10^3/ul (4.0); Mean Corp Hgb Conc 35.5 g/gl (32-36); Mean Corpuscular Hgb 31.7 pg (27.0-32.0); Mean Corpuscular Volume 89.3 fL (81-99); Mean Platelet Vol. 10.9 fl (6.2-12.0); Monocyte# 0.53 X10^3/uL; Monocyte% 7.6 % (0-10); Neutrophil # 3.11 X10^3/uL (2.7-7.7); Neutrophil % 44.9 % (47-70); Platelet Count 239 K/mm3 (150-450); RBC Distribution Width CV 12.2 % (11.6-14.6); RBC Distribution Width SD 39.2 fl (35.1-43.9); White Blood Count 6.9 K/mm3 (4.4-11.0)
[2018-07-10 17:28] LABS: POSITIVE COUNT NO; POSITIVE DIFFERENTIAL NO; POSITIVE MORPHOLOGY NO
[2018-07-10 17:39] LABS: Anion Gap 12 (5-15); BUN 13 mg/dL (7-18); BUN/Creat Ratio 13.5 RATIO (10-20); Chloride 103 mmol/L (98-107); Creatinine, Serum 0.96 mg/dL (0.55-1.02); EST Glomerular Filtration Rate 62 mL/min (>60); Est Glom Filt Rate - Afr Amer 75 mL/min (>60); Estimated Creatinine Clearance 48.97 ml/min; Glucose 425 mg/dL (74-106); Potassium 3.9 mmol/L (3.5-5.1); Sodium Level 135 mmol/L (136-145)
[2018-07-10] MEDS: 0.9% Normal Saline 1,000 ML 150 ML IV (17:45)
[2018-07-10] MEDS: Mag Hydrox/Al Hydrox/Simeth 30 ML UDC PO (17:54)
[2018-07-10 18:07] LABS: Bacteria 0 SEEN /hpf (None Seen); Mucous, Urine 0 SEEN /hpf (<or=2+); Squamous Epithelial Cells - UA 0 SEEN /hpf (5-10); White Blood Cells 0 SEEN /hpf (0-5)
[2018-07-10 18:17] LABS: Color, Urine Yellow (Yellow); Glucose, Dipstick 1000 mg/dl (Normal); Ketone-Dipstick Negative (Negative); Leukocyte Esterase-Dipstick Negative /ul (Negative); Nitrite-Dipstick Negative (Negative); Occult Blood-Urine Negative /ul (Negative); Protein-Dipstick Negative (Negative); Urine Bilirubin Dipstick Negative (Negative); Urine Clarity Clear (Clear); Urine Urobilinogen Normal (Normal)
[2018-07-10 18:46] LABS: Red Blood Cells-Urine 0-5 SEEN /hpf (0-5)
--- NOTE | 2018-07-10 19:30 | ED.DEP ---
ED Disposition - Plan for ED Patient: Disposition: Home or Assisted Living Chief Complaint: General Illness Instructions: ED Dizziness UKO Additional Instructions: Follow-up with your new physician as discussed.
[2018-07-10 19:45] VITALS: BP 146/65; PULSE 84; RESP 17; O2SAT 99
== END 2018-07-10 19:50 | disposition home or self-care (01) ==
PROVIDERS: Emergency Provider Emergency Medicine; Family Provider Nurse Practitioner Family; PCP Nurse Practitioner Family
DX: R07.89 Other chest pain (principal); R42 Dizziness and giddiness; R06.00 Dyspnea, unspecified; I25.10 Atherosclerotic heart disease of native coronary artery without angina pectoris; I25.2 Old myocardial infarction; J44.9 Chronic obstructive pulmonary disease, unspecified; K21.9 Gastro-esophageal reflux disease without esophagitis; E11.9 Type 2 diabetes mellitus without complications; I10 Essential (primary) hypertension; E78.00 Pure hypercholesterolemia, unspecified; Z79.82 Long term (current) use of aspirin; Z79.4 Long term (current) use of insulin; Z79.84 Long term (current) use of oral hypoglycemic drugs; Z79.02 Long term (current) use of antithrombotics/antiplatelets; Z79.899 Other long term (current) drug therapy; Z87.891 Personal history of nicotine dependence
CPT/HCPCS: 71045; 80048; 81001; 84484; 85025; 93005; 96361; 96374; 99284; J7030; J7040; A4216

== ENCOUNTER 2018-07-17 09:00 | Outpatient (RCR) | payer MEDICARE, SELFPAY ==
[2017-03-16 08:30] VITALS: BMI 29.2
--- NOTE | 2018-07-17 09:05 | BH.SGPN.GN ---
Behaviors/Verbalizations/Mental Status: [Client maintained good eye contact throughout, quiet throughout discussion however appeared attentive AEB nodding in agreement at various points during discussion. Client was casually and comfortably dressed, appropriate grooming/hygiene. Motor activity WNL. Client speech was limited however a normal rate and tone when sharing, mood depressed and anxious, affect congruent with mood, thoughts linear and logical, no evidence of delusions or hallucinations. Therapist reviewed client?s symptom tracker to assess for intensity of mental health symptoms and identify risk for suicide. No signs of suicidal ideation, plan, or intent to date.] Client Response/Progress/Benefit: [Client first day in IOP program and was adjusting to the group environment. She provided limited input as others shared; however, did well to remain attentive and an active listener throughout. She expressed relating to others and nodded throughout the discussion. Client did well to openly discuss what brought her to the IOP program and indicated that she has been struggling with increased depression and irritability for a long period of time but had not ever been willing to seek treatment to improve her management of mental health symptoms. Client indicated that she has been feeling guilty about how her mood swings impact her family and shared I just go off sometimes. CLient benefitted from the supportive environment and encouragement provided by the group. She did well to identify that although she is struggling right now she does have things to be grateful for such as her family's support and her julia. CLient would benefit from working on identifying triggers and warning signs for mood dysregulation as well as improve mood regulation and effective communication with supports.] Narrative Note: []
--- NOTE | 2018-07-17 10:30 | BH.SGPN.GN ---
Behaviors/Verbalizations/Mental Status: []Client alert and oriented, dress casual, hygiene good. Eye contact good. Motor activity appropriate. Speech within normal limits. Affect constricted, mood overwhelmed. Thoughts linear, logical, no signs of hallucinations or delusions. Client Response/Progress/Benefit: []Client responded well to session, quiet, but participating when prompted and through nonverbals. Client reported one can have conflict with others or within oneself. Client seemed to connect with peers who shared they struggle with being aggressive towards family during conflict. Client identified barriers to resolving conflict such as mental health, emotions, and irritability. Client helped the group discuss the four different conflict resolution styles including when it is helpful and not helpful to use each style. Client shared she uses the avoidant style as client grew up not sharing emotions, but then she becomes ?snappy? because client holds in her emotions until she explodes. Client appeared to benefit from gaining awareness of how client?s current conflict resolution style impacts mental health and relationships. Client?s first day in IOP, to continue to prevent decompensation and increase mood stability.
--- NOTE | 2018-07-17 11:35 | BH.SGPN.GN ---
Behaviors/Verbalizations/Mental Status: []Client alert and oriented, dress, casual, hygiene good. Eye contact good. Motor activity appropriate. Speech within normal limits. Affect constricted, mood anxious. Thoughts linear, logical, no signs of hallucinations or delusions. Client Response/Progress/Benefit: []Client responded well to session, quiet during discussion, but participating in activity. Client participated in the group activity, passive at times, but sharing her thoughts and ideas in an assertive manner when prompted by therapist. Client shared she wants to learn how to ?not snap at her daughter and . Client helped the group identify strategies to more effectively manage conflict such as regulating emotions, managing stress, active listening, and taking breaks when needed. Client?s first day in IOP so no progress to document. Client to continue IOP to prevent decompensation, increase mood stability, and reduce anger outbursts.
--- NOTE | 2018-07-19 09:05 | BH.SGPN.GN ---
Behaviors/Verbalizations/Mental Status: [] Pt eye contact fair, casually dressed, motor activity restless, speech normal rate and tone, mood anxious, congruent affect, thoughts linear and logical, no evidence of delusions or hallucinations. Reviewed client?s symptom tracker, no signs of suicidal ideation, plan, or intent as of today. Client Response/Progress/Benefit: [] Client reported yesterday she snapped at my daughter because she is frustrated with her for asking client to get him a cup of coffee. Client reported she became extremely angry and took it out on her daughter and yelled at her . Client shared she caught up her sister and her sister took client to [facility] as a way to calm down. Client reported she is frustrated because she is not sleeping and does not believe her antidepressants are working. Client noted the positive of asking for help when feeling extremely angry, client reported she would like to be able to stop herself before she reacts in an aggressive manner towards others. Client continues to struggle with mood instability and anger. Client seemed to benefit from support from peers and expressing thoughts and feelings. Client to continue IOP level of care to stabilize moods, improve daily functioning, and prevent decompensation Narrative Note: []
--- NOTE | 2018-07-19 11:20 | BH.SGPN.GN ---
Behaviors/Verbalizations/Mental Status: []Client alert and oriented, casual dress, hygiene good. Eye contact good. Motor activity appropriate. Speech within normal limits. Affect constricted, mood dysthymic. Thoughts preoccupied, appeared to have a hard time remembering the directions. no signs of hallucinations or delusions. Client Response/Progress/Benefit: []Client responded well to session, active participant. Client engaged in the group activity, and at times made mistakes and would become anger with herself. The group provided encouragement to client and helped client gain awareness that negative self-talk can be a barrier to making positive changes. Client identified ?being better to my ? as a positive change she wants to make this week. Client appeared to benefit from setting a goal to change her communicate style with her . Client to continue IOP as she continues to struggle with recognizing early warning signs of anger and regulating her emotions using healthy coping skills.
--- NOTE | 2018-07-19 11:26 | BH.MDN ---
Multi-Disciplinary Note - Note 60-min Individual Date: 07/19/18 Purpose of session/treatment goals addressed:: The purpose of this session was to establish rapport as well as gather information on client's current symptoms, stressors, and mental healthy history. Another purpose was to begin development of treatment goals. Eye Contact:: Good Motor Activity:: Restless Appearance:: Casual Speech:: Pressured Mood:: Irritable, Depressed Affect:: Full Thoughts:: Linear, Logical, No evidence of hallucinations/delusions noted Staff Interventions:: Therapist used active listening and open-ended questions to gather information regarding client's current stressors, symptoms, and mental health history. Applied UT techniques to elicit change talk and begin establishment of treatment goals, as well as identify potential barriers. Therapist used strengths perspective to build rapport and help client identify personal strengths. Therapist provided emotional validation and normalized client difficulties in managing current stressors. Client Response:: Client responded well to session, open to meeting with therapist. Client reports she has had no previous mental health treatment, though reports a history of depression, irritability resulting in verbal outbursts, and impulsive behaviors. Pt reports her symptoms have recently intensified to the point that her daily functioning has been impacted and she is experiencing difficulties in maintaining healthy relationships with her family as a result. Reports her primary concern is regarding difficulties with emotion regulation, specifically anger management. Reports she does not feel she has any control over her temper and has lashed out at her and daughter, as well as thrown things when overwhelmed or agitated. Client unable to identify any triggers or warning signs for anger. Reports increased suicidal ideation without current plan or intent. Indicates that despite tension with supports, her family is her primary motivation to live. Reports auditory command hallucinations telling her not to listen to her supports or to harm herself. As of this date client indicates an ability to ignore these voices and maintain safety. Discussed goals for treatment as ?I don?t want to be depressed anymore? and ?I need to get my mouth under control?. Client in agreement to work on distress tolerance, emotion regulation, and healthy coping while in IOP program. Risks/Concerns:: Client denies any active suicidal ideation, plan, and intent as of this date. Client notes passive thoughts of which are worsened when dysregulated or experiencing auditory hallucinations. Reports an ability to maintain safety and is willing to go to local ED should she feel unable to maintain safety at any point. Reports ability to manage hallucinations at this point and is receptive of expanding healthy coping skills. Progress Toward Goals/Plan:: No progress noted yet as client just started IOP. However, client appears motivated to engage in treatment and reports she is happy she sought help with her mental health. Client has struggled with unmanaged mental health symptoms for most of her life and indicates ?I need help, I can?t keep doing this without help?. Client?s identified her treatment goals to be gaining knowledge of her own mental health symptoms and stressors, learning to manage better on her own, and increase coping skills for mood stability. Client to continue IOP to prevent decompensation and promote mood stability.
--- NOTE | 2018-07-21 08:36 | BH.MTP_ITS ---
Master Treatment Plan - Patient Information Program Physician:: Roseline Rios Primary Therapist:: ERYN Meléndez - Psychiatric Diagnoses Psychiatric Diagnoses:: Major depressive disorder recurrent severe F 33.2-rule out bipolar disorder. Anxiety unspecified. Nicotine use disorder Diagnosis Code(s):: F33.2 - Estimated LOS Estimated LOS (in weeks):: 6 Problem/Goal #1 - Problem/Goal #1 Stated Goal:: Client will reduce depressive sx of hopelessness, guilt, anhedonia, and intrusive thoughts which cause SI and impact ability to function. Functional Impact: Patient is a 63-year-old female who was referred to the behavioral health IOP program by social services assistant/ case management with the [facility] for evaluation and treatment of mood symptoms and anxiety. Client reports a long-standing history of depression and irritability, including mood swings often resulting in verbal outbursts. At time of admission, Client endorses depressed mood with crying spells, increase negative thoughts, and passive thoughts of described as ?Sometimes I wish I?d fall asleep and just not wake up?. Client denies current suicidal ideation, plan, or intent. She additionally reports anhedonia, decreased energy, difficulty concentrating, verbal anger outbursts, mood swings, and irritability. - Objectives Objective #1 Stated Objective: Client will learn and utilize 2-3 healthy coping strategies to better manage depressive symptoms as shown by a reduced DSM-5 scores for depression. Interventions: Through group and individual sessions, therapist will help client identify triggers and warning signs of depression and emotional dysregulation including emotional, physical, and behavioral changes. Therapist will teach client various coping skills to manage symptoms and give client tangible resources to use to regulate emotions. Therapist will use cognitive restructuring techniques and help client gain awareness of negative thoughts that reinforce hopelessness and depression. Therapist will provide ps ychoeducation on maintenance cycles and help client learn ways to break unhealthy maintenance cycles. Discharge Criteria: Client will have met this goal when he can report learning and using at least 2 coping skills to manage depressive symptoms. Additionally, client will have met this goal when depressive symptoms have reduced on the DSM- 5 scale. Objective #2 Stated Objective: Client will identify and replace 2-3 negative thinking patterns that reinforce depressive symptoms, intrusive thoughts, guilt, and negative self-talk. Interventions: Through groups and individual therapy, client will be provided with education on cognitive distortions, mistaken beliefs, and identifying and combating negative self-talk. Therapist will assist client in recognizing triggers for increased self-deprecating and depressive thought patterns. Therapist will help client explore connection between thoughts, feelings, and actions and help client reframe depressive thought patterns. Therapist will help client gain awareness of why client has developed negative thoughts and core beliefs of self and teach client how to reframe these thoughts. Discharge Criteria: Client will have accomplished this goal when client can identify and replace at least 2 negative thinking patterns with more realistic, positive statements. Problem/Goal #2 - Problem/Goal #2 Stated Goal:: Stabilize anxiety level due to Generalized Anxiety Disorder while increasing ability to function on daily basis Functional Impact: Patient is a 63-year-old female who was referred to the behavioral health IOP program by social services assistant/ case management with the [facility] for evaluation and treatment of mood symptoms and anxiety. Client reports a long-standing history of depression and irritability, including mood swings often resulting in verbal outbursts. At time of admission, Client endorses depressed mood with crying spells, increase negative thoughts, and passive thoughts of described as ?Sometimes I wish I?d fall asleep and just not wake up?. Client denies current suicidal ideation, plan, or intent. She additionally reports anhedonia, decreased energy, difficulty concentrating, verbal anger outbursts, mood swings, and irritability. - Objectives Objective #1 Stated Objective: Client will identify 2-3 anxiety triggers and 2 calming coping skills to reduce anxiety as shown by decreased DSM-5 cross cutting symptom measure scores. Interventions: Therapist will help client increase awareness of anxiety triggers and educate client on the ways anxiety impacts overall health. Therapist will teach client various calming and mindfulness strategies to promote emotional regulation and reduction of anxiety. Therapist will encourage client to implement healthy coping skills on a regular basis. Discharge Criteria: Client will have accomplished this goal when can report at least 2 triggers for anxiety and 2 calming strategies to manage symptoms. Additionally, client will have accomplished this goal when he can report reduced DSM-5 cross cutting symptoms for anxiety.
--- NOTE | 2018-07-21 09:10 | BH.SGPN.GN ---
Behaviors/Verbalizations/Mental Status: [] Pt eye contact fair, casually dressed, motor activity restless, speech normal rate and tone, mood agitated, congruent affect, thoughts linear and logical, no evidence of delusions or hallucinations. Client Response/Progress/Benefit: [] Client reported yesterday was horrible because she got into a yelling match with her daughter. Client shared she was yelling and screaming at her daughter for no reason, which is a common experience lately. Client shared she did call her sister and was picked up by her sister to get out of the house. Client shared another positive is she went for a walk to help herself calm down. Client expressed stress and frustration towards her daughter because she believes her daughter could be doing more to help around the house but believes her daughter is lazy. Client continuing to have anger outburst with no apparent trigger. Client tends to utilize her healthy skills after she has a anger outburst, struggles to identify her warning signs of intense emotions. Client to continue [facility] level care to stabilize moods, decrease anger, prevent decompensation. Narrative Note: []
--- NOTE | 2018-07-21 11:52 | PCM.HP.BLA ---
History and Physical Identifying information Patient is a 62-year-old female who presents to the [facility] with chief complaint of mood swings. History is been obtained per interview with patient, discussion with staff, review of chart. Case discussed with treatment team. History of present illness Patient is a 62-year-old female who was referred to the [facility] by social service liaison/ case management for evaluation and treatment of mood symptoms and anxiety. Patient reports a long-standing history of depression and irritability. She endorses a depressed mood with crying spells, anhedonia, decreased energy, and difficulty concentrating. She has passive thoughts of not waking up. She denies suicide plan or intent. Feels able to maintain safety. Denies access to firearms. Reports a single episode of vague auditory perceptual disturbance last week in which she thought someone adjusted she take a walk. She states that the perceptual disturbance was fleeting and resolved spontaneously. No other symptoms consistent with psychosis. No homicidal thoughts. Reports irritability stating that her depression waxes and wanes and becomes episodically worse for a few hours twice per day. She states that she also has some intermittent irritability throughout the day in which she yells at her family members. She denies history consistent with a discrete episode of prolonged lorraine. She endorses ruminative anxiety about multiple issues. She has panic attacks in which she has shortness of breath heart palpitations and diaphoresis. She denies obsessions or compulsions. Her appetite is been decreased she has had greater than 10 pound weight loss within 2 months. She has difficulty sleeping she goes to bed at 10 PM but lies awake until 3 AM. She then sleeps until 8 AM. She denies napping. She reports a long-standing history of sleep disruption. She denies history of trauma or symptoms consistent with PTSD. She denies history of eating disorder. Past psychiatric history Patient denies previous psychiatric hospitalizations or suicide attempts. She does not currently have a psychiatrist. She has been on Zoloft for 1 year prescribed by her primary care physician at 50 mg daily which she has found to be an effective. She stopped taking it 2 weeks ago. She has been prescribed trazodone 50 mg p.o. nightly to assist with sleep. She found it ineffective and stopped taking it 2 weeks ago. Substance use history Patient smokes 4 cigarettes daily. She consumes 1 cup of caffeinated coffee daily. Denies drug or alcohol use. Past medical history COPD KS Hypertension Diabetes Elevated cholesterol Denies history of seizure or head injury Review of systems No fevers chills nausea vomiting chest pain dyspnea. All other systems reviewed and negative. Allergies-penicillin, Vicodin, ibuprofen Current medications Lisinopril 5 mg daily Aspirin 81 mg daily Furosemide 40 mg daily Simvastatin 40 mg daily Plavix 75 mg daily Lopressor 25 mg twice daily Nitrostat 0.4 mg as needed for chest pain Protonix 40 mg daily Levemir 23 units a.m. and 26 units p.m. Zofran 4 mg as needed for nausea Glimepiride 4 milligrams daily Metformin 1000 mg twice daily Family medical psychiatric history Daughter with schizoaffective disorder bipolar type Developmental social history Patient was born and raised in [place]. She is the fourth of 5 children. She grew up with her parents, 3 brothers and 1 sister. She describes growing up as great. She denies history of abuse. She quit high school in ninth grade to take care of her mother who had a seizure disorder. She was for 18 years and . She has 5 children. She is currently remarried for 7 years. 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 She has not worked in 2 years. She is on Social Security disability from her . She currently lives with her and daughter in [place]. Legal history none Mental status exam Alert and oriented. No acute distress. Ambulatory with normal gait and station. Casually dressed and groomed. Appropriate hygiene. Cooperative with interview. Good eye contact. No psychomotor agitation or retardation. Mood depressed. Affect congruent. Speech is clear and of regular rate and volume. Language fluent. Thought process organized. Associations logical. Thought content significant for ruminative anxiety and themes of depression. Passive thoughts of . No suicide plan or intent. Feels able to maintain safety. No homicidal ideation related to her detected. Reports fleeting vague auditory disturbance. No other evidence of psychosis related to her detected. Immediate recent and remote memory grossly intact. Attention and concentration are fair. Estimated intelligence fund of knowledge average. Judgment and insight are limited to fair. Labs and testing. Requisition has been provided for CMP, CBC, hemoglobin A1c, TSH, vitamin D. Previous lab work will be requested for comparison. Diagnosis Major depressive disorder recurrent severe F 33.2-rule out bipolar disorder Anxiety unspecified Nicotine use disorder Insulin-dependent diabetes Coronary artery disease COPD Plan Admit to IOP as the structured setting is necessary to prevent decompensation. Risk-benefit alternative of medications discussed with patient. Patient acknowledges understanding. Start Lamictal 25 mg daily for 2 weeks. Increase to 50 mg daily for 2 weeks. Then increase to 75 mg daily for 2 weeks. Prescription provided for Lamictal 25 mg. Dispense #90 with 0 refills. Start Atarax 25 mg p.o. nightly to assist with sleep. Encouraged to establish with psychiatric outpatient providers for when IOP complete. Encouraged to establish with primary care physician. Encouraged nicotine and caffeine abstinence. Patient acknowledges understanding and is in agreement with plan. Feels able to maintain safety. Agrees to seek help or emergency care if feeling unsafe to self or others.
--- NOTE | 2018-07-21 12:06 | HP.PCM_ITS ---
History and Physical Identifying information Patient is a 62-year-old female who presents to the hospital for behavioral medicine medicine [facility] with chief complaint of mood swings. History is been obtained per interview with patient, discussion with staff, review of chart. Case discussed with treatment team. History of present illness Patient is a 62-year-old female who was referred to the hospital for behavioral medicine health [facility] by licensed social worker/ case management for evaluation and treatment of mood symptoms and anxiety. Patient reports a long-standing history of depressio n and irritability. She endorses a depressed mood with crying spells, anhedonia, decreased energy, and difficulty concentrating. She has passive thoughts of not waking up. She denies suicide plan or intent. Feels able to maintain safety. Denies access to firearms. Reports a single episode of vague auditory perceptual disturbance last week in which she thought someone adjusted she take a walk. She states that the perceptual disturbance was fleeting and resolved spontaneously. No other symptoms consistent with psychosis. No homicidal thoughts. Reports irritability stating that her depression waxes and wanes and becomes episodically worse for a few hours twice per day. She states that she also has some intermittent irritability throughout the day in which she yells at her family members. She denies history consistent with a discrete episode of prolonged lorraine. She endorses ruminative anxiety about multiple issues. She has panic attacks in which she has shortness of breath heart palpitations and diaphoresis. She denies obsessions or compulsions. Her appetite is been decreased she has had greater than 10 pound weight loss within 2 months. She has difficulty sleeping she goes to bed at 10 PM but lies awake until 3 AM. She then sleeps until 8 AM. She denies napping. She reports a long-standing history of sleep disruption. She denies history of trauma or symptoms consistent with PTSD. She denies history of eating disorder. Past psychiatric history Patient denies previous psychiatric hospitalizations or suicide attempts. She does not currently have a psychiatrist. She has been on Zoloft for 1 year prescribed by her primary care physician at 50 mg daily which she has found to be an effective. She stopped taking it 2 weeks ago. She has been prescribed trazodone 50 mg p.o. nightly to assist with sleep. She found it ineffective and stopped taking it 2 weeks ago. Substance use history Patient smokes 4 cigarettes daily. She consumes 1 cup of caffeinated coffee daily. Denies drug or alcohol use. Past medical history COPD KS Hypertension Diabetes Elevated cholesterol Denies history of seizure or head injury Review of systems No fevers chills nausea vomiting chest pain dyspnea. All other systems reviewed and negative. Allergies-penicillin, Vicodin, ibuprofen Current medications Lisinopril 5 mg daily Aspirin 81 mg daily Furosemide 40 mg daily Simvastatin 40 mg daily Plavix 75 mg daily Lopressor 25 mg twice daily Nitrostat 0.4 mg as needed for chest pain Protonix 40 mg daily Levemir 23 units a.m. and 26 units p.m. Zofran 4 mg as needed for nausea Glimepiride 4 milligrams daily Metformin 1000 mg twice daily Family medical psychiatric history Daughter with schizoaffective disorder bipolar type Developmental social history Patient was born and raised in [place]. She is the fourth of 5 children. She grew up with her parents, 3 brothers and 1 sister. She describes growing up as great. She denies history of abuse. She quit high school in ninth grade to take care of her mother who had a seizure disorder. She was for 18 years and . She has 5 children. She is currently remarried for 7 years. 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 She has not worked in 2 years. She is on Social Security disability from her . She currently lives with her and daughter in [place]. Legal history none Mental status exam Alert and oriented. No acute distress. Ambulatory with normal gait and station. Casually dressed and groomed. Appropriate hygiene. Cooperative with interview. Good eye contact. No psychomotor agitation or retardation. Mood depressed. Affect congruent. Speech is clear and of regular rate and volume. Language fluent. Thought process organized. Associations logical. Thought content significant for ruminative anxiety and themes of depression. Passive thoughts of . No suicide plan or intent. Feels able to maintain safety. No homicidal ideation related to her detected. Reports fleeting vague auditory disturbance. No other evidence of psychosis related to her detected. Immediate recent and remote memory grossly intact. Attention and concentration are fair. Estimated intelligence fund of knowledge average. Judgment and insight are limited to fair. Labs and testing. Requisition has been provided for CMP, CBC, hemoglobin A1c, TSH, vitamin D. Previous lab work will be requested for comparison. Diagnosis Major depressive disorder recurrent severe F 33.2-rule out bipolar disorder Anxiety unspecified Nicotine use disorder Insulin-dependent diabetes Coronary artery disease COPD Plan Admit to IOP as the structured setting is necessary to prevent decompensation. Risk-benefit alternative of medications discussed with patient. Patient acknowledges understanding. Start Lamictal 25 mg daily for 2 weeks. Increase to 50 mg daily for 2 weeks. Then increase to 75 mg daily for 2 weeks. Prescription provided for Lamictal 25 mg. Dispense #90 with 0 refills. Start Atarax 25 mg p.o. nightly to assist with sleep. Encouraged to establish with psychiatric outpatient providers for when IOP complete. Encouraged to establish with primary care physician. Encouraged nicotine and caffeine abstinence. Patient acknowledges understanding and is in agreement with plan. Feels able to maintain safety. Agrees to seek help or emergency care if feeling unsafe to self or others.
--- NOTE | 2018-07-21 12:07 | BH.DR.ITP ---
Initial Treatment Plan - Patient Information Visit Information: ADMISSION DATE: EXPECTED LOS: 4-6 weeks Diagnoses:: Major depressive disorder F 33.2 - Problems/Symptoms Problem #1:: Mood symptoms Symptom:: Depression, anhedonia, sad mood, irritability, biologic disruption of sleep and appetite, thoughts of Problem #2:: Anxiety Symptom:: Rumination
--- NOTE | 2018-07-24 09:05 | BH.SGPN.GN ---
Behaviors/Verbalizations/Mental Status: []Client alert and oriented, neatly dressed and groomed. Eye contact staring. Motor activity appropriate. Speech within normal limits. Affect constricted, mood irritable. Thoughts linear, logical, no signs of hallucinations or delusions. Reviewed client?s symptom tracker, no risk for suicidal ideation, plan, or intent as of 07/24/18. Client Response/Progress/Benefit: []Client responded well to session, quiet, but providing supportive statements at times. Client reports feeling ?great in group? as client shared feeling safe and welcome while at IOP. Client shared there were positives and negatives to the weekend. Client reported her positives were going to [employer] [facility] [employer] with her daughter and going to the mall with her sister. Client stated her relationship with her daughter and continues to be stressors as client has a hard time regulating emotions when triggered by them. Client appeared to benefit from connecting to peers. Progress noted as client reports increased awareness of triggers and warning signs, but she continues to struggle with implementing coping skills to manage anger and depression. Client to continue IOP to increase mood stability and implementation of healthy coping skills.
--- NOTE | 2018-07-24 10:15 | BH.SGPN.GN ---
Behaviors/Verbalizations/Mental Status: []Client alert and oriented, neatly dressed and groomed. Eye contact staring. Motor activity appropriate. Speech within normal limits. Affect constricted, mood irritable. Thoughts linear, logical, no signs of hallucinations or delusions. Client Response/Progress/Benefit: []Pt passive participant as shown by limited contributed contributions to discussion, appeared to listen attentively to others. Pt reported learning about supports is important because she struggles with communicating to her supports. Pt shared one barrier to using her supports ie getting angry easily at others and being negative. Pt reported she knows having supports is helpful, stating her sister helps support her by getting out of the house when pt is feeling angry. Pt seemed to benefit from group discussion about positive characteristics of healthy supports. Narrative Note: []
--- NOTE | 2018-07-24 11:15 | BH.SGPN.GN ---
Behaviors/Verbalizations/Mental Status: []Client alert and oriented, neatly dressed and groomed. Eye contact good. Motor activity appropriate. Speech within normal limits. Affect flat, mood anxious, depressed. Thoughts linear, logical, no signs of hallucinations or delusions. Client Response/Progress/Benefit: []Pt listened attentively to others, only contributing to discussion if elicited by therapist. Pt appeared to connect with others comments about the benefits of each type of social support discussed. Pt reported she has learned it's important to communicate and listen to her support people instead of yelling and shutting down. Pt reported for social support she will focus on continuing to ask her sister for help. Pt struggled with identifying a goal that didn't involve something she wasn't already doing. Progress could be hindered if pt will not work on goals or tasks that are out of her comfort zone. Pt seemed to benefit from learning about the different types of support and how each type of support could help. Narrative Note: []
--- NOTE | 2018-07-25 09:05 | BH.SGPN.GN ---
Behaviors/Verbalizations/Mental Status: [] Eye contact is good. Motor activity is appropriate. Appearance is neat. Speech is Appropriate. Mood is euthymic. Affect is full. Thoughts are linear and logical. No evidence of psychosis. Reviewed daily check in sheet and no reports of suicidal ideations or intent Client Response/Progress/Benefit: [] Pt spoke when prompted. Emotion for today is good. States that she went for a 3 mile walk yesterday with her daughter. Reports that mood has been improving since starting the program. She did not elaborate much more and her check-in was short. Appeared attentive throughout the group and nodded in agreement several times during group discussions. Benefited from group support. Progress noted per pt report. Will continued in IOP to stabilize mood and prevent decompensation. Narrative Note: []
--- NOTE | 2018-07-25 10:10 | BH.SGPN.GN ---
Behaviors/Verbalizations/Mental Status: []Eye contact is good. Motor activity is appropriate. Appearance is neat. Speech is Appropriate. Mood is euthymic. Affect is full. Thoughts are linear and logical. No evidence of psychosis. Client Response/Progress/Benefit: [] Client passive participant as evidenced by limited contributions to discussion however did appear to be listening attentive to others. Client appeared to connect with others comments about the challenges of following through with goals to be fear of failure, lack of motivation, and apathy as evidenced by client nodding her head. Client seemed to benefit from learning about how to set smart goals and the importance of setting short-term goals to help her achieve a longer term goals. Narrative Note: []
--- NOTE | 2018-07-25 13:01 | BH.MDN ---
Multi-Disciplinary Note - Note 30-min Individual Time Started:: 12:03 Date: 07/25/18 Purpose of session/treatment goals addressed:: The purpose of this session was to check-in with CLient regarding symptoms and stressors. Another purpose was to work with Client on identifying postive statements and skills for addressing concerns regarding ongoing difficulties in regulating her emotions, specifically regarding anger related outbursts. Eye Contact:: Good Motor Activity:: Appropriate Appearance:: Casual Speech:: Appropriate Mood:: Anxious, Depressed Affect:: Full, Congruent Thoughts:: Linear, Logical, No evidence of hallucinations/delusions noted - indicates recently experiencing voices in the morning and evening hours. Staff Interventions:: Therapist asked open-ended questions to gather additional information regarding current sx, stressors, and use of coping skills. Applied IA techniques to elicit change behaviors. Provided supportive feedback and empathic statements. Medicare Sales Representative pt in ways to apply emotion regulation strategies. Client Response:: Pt reports that her depression is getting more manageable and she is finding IOP groups to be helpful with improving her mood throughout the day while in attendance. However, she continues to struggle significantly with emotion regulation outside of treatment environment, specifically managing sx of anger/agitation when communicating with her and daughter. Pt worked with therapist to identify potential triggers for irritability at home. Initially struggled to identify triggers but was able to when asked questions about specific events leading to anger outbursts. Pt reports that when her and daughter don?t listen to or meet pt expectations she becomes upset. Additionally, reports becoming triggered in times when she feels her and daughter are being lazy or excluding her from conversation. Pt appears to struggle with limited insight and significant distorted thought patterns that result in pt making impulsive decisions and inappropriate comments towards supports. Receptive of discussing emotion regulation skills of deep breathing, coloring, and taking a walk outside. Reports willingness to try counting to ten and walking away before responding. Risks/Concerns:: Pt continues to report auditory hallucinations, though indicates ability to manage these. Indicates ability to maintain safety. Denies SI, plan, intent as of this date. Progress Toward Goals/Plan:: Limited progress. Pt continues to struggle with active application of skills learned outside of treatment environment. Pt continues to report emotion dysregulation and difficulties in self-soothing when agitated. Recommended continued IOP tx to improve use of calming skills, increase emotion regulation, and prevent decompensation. Time Stopped:: 12:37
--- NOTE | 2018-08-01 10:05 | BH.SGPN.GN ---
Behaviors/Verbalizations/Mental Status: []Client alert and oriented, casual dress, hygiene good. Eye contact good. Motor activity appropriate. Speech within normal limits. Affect constricted, mood dysthymic. Thoughts linear, logical, no signs of hallucinations or delusions. Client Response/Progress/Benefit: []Client responded well to session, quiet, but participating when promoted. ?Client stated ?emotions? are a barrier to communicating effectively with supports. Client listened as the group discussed the different communication styles. Client stated she often uses the aggressive communication style, especially with her and daughter, which negatively impacts her relationships and leads to guilt. Client appeared to benefit from gaining awareness to how communication styles impact mental health and relationships. Client to continue IOP to as she continues to struggle with identifying warning signs and managing anger.
--- NOTE | 2018-08-01 11:10 | BH.SGPN.GN ---
Behaviors/Verbalizations/Mental Status: []Client alert and oriented, casual dress. Eye contact good. Motor activity appropriate. Speech soft. Affect constricted, mood dysthymic. Thoughts linear, logical, no signs of hallucinations or delusions. Client Response/Progress/Benefit: []Client responded well to session, passive participant. Client observed group members as they engaged in the communication activity. Client identified ?too many things at once? as a barrier to communication in the activity. Client took notes as the group identified strategies to improve communication including: being specific, managing emotions, and having self-awareness. Client shared she wants to work on ?communicating without being mouthy.? Client appeared to benefit from learning strategies to improve communication and gaining awareness of personal barriers. Client to continue IOP as she continues to struggle with recognizing warning signs for anger and implementing healthy coping skills.
--- NOTE | 2018-08-02 09:10 | BH.SGPN.GN ---
Behaviors/Verbalizations/Mental Status: [] Eye contact is good. Motor activity is appropriate. Appearance is casual. Speech is Appropriate. Mood is depressed. Affect is flat. Thoughts are linear and logical. No evidence of psychosis. Reviewed daily check in sheet and noted SI 12/12. Primary therapist notified. Client Response/Progress/Benefit: [] Pt only spoke when prompted however appeared attentive. Reports her emotion for today is great however goes on to discuss feeling miserable and crappy since yesterday, however smiles during her check-in. Also was smiling and laughing with peer during and after group. Difficulty verbalizing reasons for negative feelings.She declined to share anymore. Limited progress noted. Incongruent mood at times with verbalizations. Will continue in IOP to stabilize mood and medications, prevent further decompensation, and decreased suicidal ideations. Narrative Note: []
--- NOTE | 2018-08-02 10:10 | BH.SGPN.GN ---
Behaviors/Verbalizations/Mental Status: [] Pt eye contact good, casually dressed, motor activity appropriate, speech normal rate and tone, mood euthymic, constricted affect, thoughts linear and intact, no evidence of delusions or hallucinations. Client Response/Progress/Benefit: []Pt engaged in session AEB pt sharing thoughts and feelings and listened attentively to others. Pt connected with the others comments about fear and comfort zone being two reasons people choose not to make a change AEB pt nodding her head. Pt shared the following are things that keep her stuck: unmanaged anger, being mean to others, and having no filter. Pt identified unmanaged anger to be keeping her stuck the most because the anger leads to pt making poor choices. Pt seemed to benefit from increased awareness of what is contributing to pt staying stuck and not moving forward. Narrative Note: []
--- NOTE | 2018-08-02 11:15 | BH.SGPN.GN ---
Behaviors/Verbalizations/Mental Status: [] Pt eye contact good, casually dressed, motor activity appropriate, speech normal rate and tone, mood euthymic, congruent affect, thoughts linear and intact, no evidence of delusions or hallucinations. Client Response/Progress/Benefit: []Pt listened attentively to others and was engaged in creating small goals for the next couple of weeks. Pt reported for her plan she is focusing on improving ability to manage her anger. Pt struggled with identifying realistic goals, often stated her goal is to stop being mean, however couldn't identify what she can do to manage her anger. With assistance pt shared her first small goal is to walk on the trail near her house each day as a way to reduce stress. Pt reported her second small goal is to focus on positive by saying nice things to and daughter. Pt seemed to benefit from creating small goals she can focus on throughout the month. Pt to continue IOP level of care to improve emotional regulation, improve daily functioning, and prevent decompensation. Narrative Note: []
--- NOTE | 2018-08-03 09:05 | BH.SGPN.GN ---
Behaviors/Verbalizations/Mental Status: []Client alert and oriented, neatly dressed and groomed. Eye contact good. Motor activity appropriate. Speech within normal limits. Affect constricted, mood dysthymic. Thoughts linear, logical, no signs of hallucinations or delusions. Reviewed client?s symptom tracker. Client indicated 2 out of 5 for thoughts of suicide and 3 out of 5 for risk of suicide. Client's individual IOP therapist will be notified. Client Response/Progress/Benefit: []Client responded well to session, sharing she is ?happy when I?m here.? Client reports feeling ?very well? this morning due to being at [facility]. Client identified two positives and a stressor today. Client?s positives included making it to [facility] this morning and looking forward to going to [place] tomorrow. Client?s stressor is ongoing difficulty managing her anger as client continues to have anger outbursts towards her daughter and . Client shared ?I don?t even know it?s coming it just happens.? The group attempted to help client recognize warning signs of anger. Client appeared to benefit from gaining support from peers. Progress noted as client reports using healthy coping skills after her anger outbursts, but she can improve with recognizing warning signs. Client to continue IOP to prevent decompensation and decrease anger outbursts.
--- NOTE | 2018-08-03 16:36 | BH.MDN_ITS ---
Multi-Disciplinary Note - Note 30-min Individual Time Started:: 12:37 Date: 08/02/18 Purpose of session/treatment goals addressed:: Purpose of session was to check- in with Client following group on this date, assess current symptoms and stressors, as well as evaluate current risk. Other topics included: emotional regulation, healthy coping skills, and safety planning. Eye Contact:: Good Motor Activity:: Appropriate, Other - easily distracted Appearance:: Casual, Other - comfortable clothing Speech:: Appropriate Mood:: Anxious, Irritable, Dysthymic Affect:: Congruent Thoughts:: Linear, Logical, No evidence of hallucinations/delusions noted Staff Interventions:: Therapist asked open ended and furthering questions to gather additional information regarding client?s current symptoms and stressors. Therapist normalized client emotions of frustration and guilt regarding recent difficulties in managing emotion of irritability, resulting in increased relationship tension, negative self-talk, and passive thoughts of Assessed client current level of risk. Therapist worked with Client to review identified strategies as well as develop additional techniques and activities to calm herself and prevent crisis escalation when experiencing nega tive thoughts or emotions. Discussed and worked with client to establish a plan for the rest of the day in order to maintain safety and prevent dysregulation. Client Response:: Client receptive of meeting with therapist following group session for the day. CLient willing to check-in regarding current stressors and symptoms as client reported elevated SI scores on daily symptpom tracker this morning. Client had identified scores were increased due to ongoing difficulties managing her emotions and intrusive thoughts. Client discussed that she did not know why but felt increasingly agitated the previous night which led client to verbally lash out in anger without warning. Client went on to describe yelling at both her adult daughter and , as well as indicated I threw a bowl of soup across the room and don't know why I even did it. Trupti was tearful throughout discussion and expressed feeling remorseful of her actions. She shared being upset with herself and stated No mother should treat their kids like that. I'm not supposed to act like that. I can't believe what people would probably think of me. She described feeling similar guilt and remorse following the outbust and found herself experiencing fleeting thoughts of taking all her medication due to feeling she does not deserve to be here as a result. CLient shared that she was able to challenge these thoughts and speak to her daughter instead. CLient shared that her daughter had been receptive ad forgiving, however client continues to struggle with self-deprication regarding the event and her ongoing difficulties in regulating emotions and managing stressors rather than acting out. Client indicated briefly experiencing thoughts of not wanting to be alive this morning; however, expressed telling herself Don't think like that. Today you're going to think positively as well as went for a brief walk which she shared was helpful and found her mood improved by the time she arrived for group. Client denies any current suicidal ideation, plan, or intent. She was receptive of working with this therapist to identify common warning signs or triggers for increased negative thinking or irritability as well as create a healthy coping plan to prevent crisis escalation. CLient continues to struggle in identifying specific triggers for her emotions and often reports feeling as though they just happen out of nowhere. She was however able to identify some warning signs such as feeling on edge, having the urge to say something mean, or increased negative thoughts/voices. Client wo rked with therapist to review previously identified coping strategies discussed as well as create additional strategies to help calm client and combat negative thoughts/voices. Client additionally worked with therapist on creating an emotion regulation and safety plan for the night. Client indicates plans to sit outside and color with her daughter when she gets home, reviewing her coping skill and affirmation cards, saying motivational statements to herself when experiencing negative thoughts, and walking away during times of anger. Client additionally given the crisis hotline and reports willingness to call if feeling unable to calm down or maintain safety. Risks/Concerns:: Client reports experiencing passive thoughts of , which is consistent with client baseline. Client additionally indicates experiencing a fleeting thought of wanting to take all her medication at once. Client indicates this thought occurred once, lasting only a few seconds on the previous night. She denies plan or intent to act on the thought as well as denies any active SI as of 08/02/18. Client is future oriented as she is planning to go out to dinner with family for her birthday. She indicates an ability to maintain safety and is agreeable to call crisis or go to nearest emergency room if feeling unable to maintain safety. Client reports her children, grandchildren, and knowing she deserves to be happy as current reasons to stay alive. Progress Toward Goals/Plan:: Limited progress. Client indicates she finds the IOP group and individual sesssions to be helpful and is learning helpful information for better managing symptoms, challenging negative thoughts, and regulating her emotions. CLient expressed that she has found utilizing a stress ball to be particularly helpful in times of increased agitation or stress. CLient however continues to report frequent blow-ups which she describes as lashing out verbally towards her or adult daughter. Client currently has limited insight into triggers or warning signs for emotion dysregulation and increased agitation which impact client ability to utilize calming skills prior to escalation. CLient further reports ongoing negative thinking as a result of difficulty regulating emotions. CLient additionally reports medication non- compliance which may be contributing to difficulties managing mood. Time Stopped:: 13:07
--- NOTE | 2018-08-03 16:36 | BH.COMM ---
Communication Note - Communication with Client Communication Note: Client met with therapist following group for the day as she had indicated increased SI on dx symptom tracker during first group. Client agreeable to discussing current stressors contributing to increased thoughts of as well as urges to engage in self harming bahaviors. Client explained that ongoing difficulties in managing emotions, specifically that of irritability, continue to result in increased guilt and low self worth. CLient indicated having another blow-up episode when talking to her daughter about dinner plans. Client disclosed struggling with thoughts of wanting to or just go to sleep and not wake up following the exchange as a result of remorse and shame over her behaviors and ongoing mood instability. She described recently having the urge to just take all them pills and be done with it. CLient noted that last urge to do so had occurred the previous night when she went to her room to calm down and saw the pillbox sitting there. Client denies specific plan to act on this thought or further intent outside of the brief urges to do so in the moment. Client additionally reports that recently her thoughts of have increased. She attributes this to being correllated with beginning to experience hearing voices in the weeks prior to IOP admission. CLient denies informing program psychiatrist of these thoughts during initial assessment. Client reports voices telling her you don't need to take those pills referring to client prescribed medications and indicates she has not been medication coompliant in the past several days. Client reports understanding that medication consistancy is important to improving mood management and better regulating emotions. She discussed additional stressors as ongoing relationship tension, feeling unappreciated, and difficulties communicating with supports. Client denies any active SI, plan, or intent at this time, 08/03/18. She was agreeable to safety planning with daughter and this therapist for the night. Client indicates willingness to remove all medication from her bedroom and lock it in a cabinet as well as call to confirm doing so. Client indicates an ability to maintain safety for the night and is willing to call crisis or go to local e.r. if no longer able to maintain safety. Client expressed willingness to set up a date for family therapy session and shared plans to go on a walk or remove herself from the situation should she feel agitated or upset. Client future oriented expressing plans to attend IOP program tomorrow to meet with psychiatrist as well as the [facility] support group tomorrow afternoon.
--- NOTE | 2018-08-03 17:19 | BH.COMM ---
Communication Note - Communication with Client Communication Note: Client called in to confirm securing medication in a locked cabinet in her home. Denies any active suicidal ideation, plan, or intent at this time. She discussed plans for the evening and indicated an ability to maintain safety as well as reviewed various coping skills she may use if experiencing increased agitation or distress for the remainder of the evening. Client reports plans to attend IOP program tomorrow as well as a local support group.
--- NOTE | 2018-08-04 09:01 | BH.SGPN.GN ---
Behaviors/Verbalizations/Mental Status: [Client maintained fair eye contact - at times looking down and around the room. Casually dressed, appropriate grooming/hygiene. Motor activity WNL. Client speech was a normal rate and tone, mood euthymic, affect congruent with mood, thoughts linear and logical - limited insight, no evidence of delusions or hallucinations. Therapist reviewed client?s symptom tracker to assess for intensity of mental health symptoms and identify risk for suicide. Client reports decreased scores indicating suicidal ideation from previous date - 2/5 though intent is scored as 0/5. Client denies plan, or intent to date. She is to meet with program psychiatrist today to further evaluate ongoing reports of auditory hallucinations.] Client Response/Progress/Benefit: [Client receptive of session and in a positive mood throughout. She discussed that although she had been experiencing increased depressive symptoms earlier in the week,specifically Tuesday night/ morning, Client was able to have a good evening the previous night. CLient attributes the improvements in her mood to going on a walk and making cookies with her daughter, as well as not experiencing any negative thoughts or voices. CLient benefitted from reviewing strategies she may use over the weekend to continue sx management and identified plans to continue using the finger tracing mazes, coloring, positive affirmations, and going for walks. Client continues to struggle with distress tolerance as well as healthy decision making as client reports medication non-compliance. Recommended continued IOP tx so improve insight and ability to apply healthy means of coping. ] Narrative Note: []
--- NOTE | 2018-08-04 11:42 | BH.COMM ---
Communication Note - Communication with Client Communication Note: Client met with IOP program psychiatrist on this date for further evaluation. Per psychiatrist recommendation Client will be direct admited to [facility] inpatient psychiatric unit at this time for stablization purposes as well as to ensure safety over the weekend. Therapist escorted CLient to [facility] E.R. Dept. to be medically cleared and transported. Therapist contacted and informed Client Emergency Contact of current plan of care changes per client request.
--- NOTE | 2018-08-04 11:51 | BH.COMM_ITS ---
Communication Note - Communication with Client Communication Note: Client met with IOP program psychiatrist on this date for further evaluation. Per psychiatrist recommendation Client will be direct admited to [facility] inpatient psychiatric unit at this time for stablization purposes as well as to ensure safety over the weekend. Therapist escorted CLient to [facility] E.R. Dept[facility] to be medically cleared and transported. Therapist contacted and informed Client Emergency Contact of current plan of care changes per client request.
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
--- NOTE | 2018-08-04 12:56 | PCM.PN.BLA ---
Progress Note Patient is seen in follow-up for major depressive disorder rule out bipolar disorder, anxiety unspecified and new symptoms of psychosis. History is been obtained per interview with patient, discussion with staff, review of chart. Case discussed with treatment team. Chief complaint Depression and anxiety I am hearing voices Interim history Staff reports that although patient has been attending IOP on a consistent basis she has been decompensating. She has increased depressive symptoms over the past week. She reports med noncompliance over the past 3 days due to auditory hallucinations telling her not to take her medication. She acknowledges that she has been hearing the voices every other day for the past month and a half. The voices have increased in frequency and intensity this week. She is unable to identify the voice. She states that the voices have told her not to take her meds and to be mean to her daughter. She reports irritability and impulsive anger associated with the voices and an episode of yelling at her daughter and . She is remorseful. She had passive suicidal thoughts last week. No suicide plan or intent. No homicidal ideation. Sleep is disrupted. Goes to bed at 10 PM but watches television until 3 AM. Is generally up by 7 AM. Appetite is fair. Denies nausea or vomiting. Reports diarrhea. Daughter has history of schizoaffective disorder. Mental status exam Alert and oriented . No acute distress. Ambulatory with normal gait and station. Appears stated age. Casually dressed and groomed. Appropriate hygiene. Cooperative with interview. Good eye contact. No psychomotor agitation or retardation. Mood dysphoric. Affect congruent. Speech is clear and with regular rate and rhythm. Language fluent. Thought process organized. Associations logical. Thought content significant for ruminative anxiety and themes of depression. No suicidal or homicidal ideation related or detected. Auditory hallucinations present. Immediate recent and remote memory grossly intact. Attention and concentration are fair. Estimated intelligence and fund of knowledge average. Judgment and insight admitted. Labs and testing. July 21, 2018 CBC within normal limits, creatinine 0.95, glucose 283, hemoglobin A1c 11.6, LFTs within normal limits, TSH 1.99, vitamin D 32 Diagnosis Major depressive disorder with psychotic features, rule out bipolar disorder with psychotic features, rule out schizoaffective disorder Anxiety unspecified Nicotine use disorder Insulin dependent diabetes Coronary artery disease COPD Medication noncompliance Plan Case discussed extensively with patient and treatment team. Patient agrees to inpatient psychiatric hospitalization at [facility]. Case discussed with transfer line and floor for admission to [address] [place] [address]. Case discussed with Mr. emergency department for transportation. Patient acknowledges understanding and is in agreement with plan. 16 minutes of supportive psychotherapy provided.
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
== END 2018-08-04 11:00 | disposition short-term general hospital (02) ==
LOC: BHIOP 09:00
PROVIDERS: Family Provider Nurse Practitioner Family; PCP Nurse Practitioner Family; Visit Provider Psychiatry & Neurology Psychiatry
DX: F32.3 Major depressive disorder, single episode, severe with psychotic features (principal); F41.9 Anxiety disorder, unspecified; F17.210 Nicotine dependence, cigarettes, uncomplicated; E11.9 Type 2 diabetes mellitus without complications; Z79.4 Long term (current) use of insulin; Z79.899 Other long term (current) drug therapy; I25.10 Atherosclerotic heart disease of native coronary artery without angina pectoris; J44.9 Chronic obstructive pulmonary disease, unspecified; Z91.14 Patient's other noncompliance with medication regimen
CPT/HCPCS: H0035; 90832; 90837; 90853

== ENCOUNTER → 2018-07-21 12:21 | Outpatient (CLI) | payer MEDICARE, SELFPAY ==
[2017-03-16 08:30] VITALS: BMI 29.2
[2018-07-21 13:25] LABS: Hematocrit 38.8 % (37-47); Hemoglobin 13.6 g/dl (12.0-15.0); Mean Corp Hgb Conc 35.1 g/gl (32-36); Mean Corpuscular Hgb 31.7 pg (27.0-32.0); Mean Corpuscular Volume 90.4 fL (81-99); Mean Platelet Vol. 11.9 fl (6.2-12.0); Platelet Count 266 K/mm3 (150-450); RBC Distribution Width CV 11.8 % (11.6-14.6); RBC Distribution Width SD 38.4 fl (35.1-43.9); Red Blood Count 4.29 M/mm3 (4.2-5.4); Scan Indicated on CBC? Y/N NO; White Blood Count 8.9 K/mm3 (4.4-11.0)
[2018-07-21 13:41] LABS: Hemoglobin A1c 11.6 % (4.2-6.3)
[2018-07-21 13:58] LABS: Vitamin D,25 Hydroxy 32.8 ng/mL (29.95-100.01)
[2018-07-21 14:00] LABS: ALB/GLOB Ratio 1.2 RATIO (0.9-2.4); AST(SGOT) 15 U/L (15-37); Alanine Aminotransfer ALT/SGPT 26 U/L (13-56); Albumin, Serum 4.3 g/dL (3.2-5.0); Alkaline Phosphatase 70 U/L (45-117); Anion Gap 10 (5-15); BUN 16 mg/dL (7-18); BUN/Creat Ratio 16.9 RATIO (10-20); Calcium,Total 9.1 mg/dL (8.5-10.1); Chloride 100 mmol/L (98-107); Creatinine, Serum 0.95 mg/dL (0.55-1.02); EST Glomerular Filtration Rate 63 mL/min (>60); Est Glom Filt Rate - Afr Amer 76 mL/min (>60); Globulin 3.6 g/dL (2.2-4.2); Glucose 283 mg/dL (74-106); Potassium 3.7 mmol/L (3.5-5.1); Protein, Total 7.9 g/dL (6.4-8.2); Sodium Level 136 mmol/L (136-145); Thyroid Stim Hormone (TSH) 1.99 uIU/mL (0.358-3.74)
== END ==
PROVIDERS: Family Provider Nurse Practitioner Family; PCP Nurse Practitioner Family; Referring Provider Psychiatry & Neurology Psychiatry; Visit Provider Psychiatry & Neurology Psychiatry
DX: E55.9 Vitamin D deficiency, unspecified (principal); Z79.899 Other long term (current) drug therapy
CPT/HCPCS: 36415; 80053; 82306; 83036; 84443; 85027

== ENCOUNTER 2018-07-28 11:42 | Emergency (ER) | payer MEDICARE, SELFPAY ==
[2017-03-16 08:30] VITALS: BMI 29.2
[2018-07-28 11:44] VITALS: BP 131/72; PULSE 85; RESP 17; TEMP 36.7; O2SAT 100; BMI 26.9
--- NOTE | 2018-07-28 11:56 | EKG12_ITS ---
Test Reason : SOB Blood Pressure : / mmHG Vent. Rate : 083 BPM Atrial Rate : 083 BPM P-R Int : 138 ms QRS Dur : 082 ms QT Int : 404 ms P-R-T Axes : 050 029 035 degrees QTc Int : 474 ms Normal sinus rhythm Normal ECG Confirmed by HENRY BARFIELD, DAYANA ([id number]), associate editor ALEX EASTON ([id number] on 07/31/2018 12:52:35 PM Referred By: Yoana Rios Confirmed By:DAYANA FIGUEROA MD
--- NOTE | 2018-07-28 11:57 | RAD_ITS ---
STUDY: X-RAY CHEST REASON FOR EXAM: Female, 62 years old. CHEST PAIN TECHNIQUE: Frontal and lateral views of the chest. # of Images: 2 COMPARISON: None. FINDINGS: The lungs are clear and expanded. There is no demonstrated pleural abnormality. Normal size heart. Normal mediastinum and jovan. Normal visualized pulmonary arteries. Normal visualized aortic arch and descending thoracic aorta. Normal visualized thoracic spine. There is degenerative osteoarthritis of the bilateral shoulders. There is no demonstrated abnormality of the visualized soft tissue structures of the upper abdomen. RAD/Chest PA and Lateral IMPRESSION: Degenerative changes, as described above. No demonstrated acute cardiopulmonary process. Electronically Signed: Ja Mott MD at 13:15 EDT Tel , Service support ,
--- NOTE | 2018-07-28 11:58 | ED.VISSUMM ---
- ER Visit Summary Date of Service: 07/28/18 Chief Complaint: Nausea, vomiting, diarrhea History of Present Illness: The patient is a 62 F who presents with nausea, vomiting, diarrhea, chest pain, and back pain that has been constant for the past 2 days. Patient describes her pain as sharp. Patient states the pain is over her substernal area and radiates into her back. Patient states she has been unable to keep anything down for the past 2 days. Patient denies any fevers but admits to subjective chills. Patient admits to some rhinorrhea. Patient states her diarrhea is yellow. Patient denies any abdominal pain. Physical Examination: Vital signs are stable. Patient is afebrile. Patient is in no acute distress. Oral mucosa is pink and moist. Neck is supple. Trachea is midline. There is no JVD noted. Heart was regular rate and rhythm. Lungs are clear and equal bilaterally. There is good respiratory effort noted. Abdomen is soft. Bowel sounds are normal. There is no tenderness. There is no guarding noted. Cranial nerves II through XII are intact. There are no focal motor or sensory deficits noted. The remaining physical exam is within normal limits. Test Results: [] Emergency Department Course and Treatment: [] Treatment Plan: [] Disposition: [] Impression: [] This note was generated with [employer] dictation software. It may contain incorrect words, spelling, and punctuation that were not noted in review of the chart prior to signing ED Disposition - Plan for ED Patient: Disposition: Home or Assisted Living Chief Complaint: Shortness of Breath Diagnosis: Nausea vomiting and diarrhea Instructions: ED Gastroenteritis Viral, ED Diet Vomiting Diarrhea Prescriptions: Ondansetron [Zofran Odt] 4 mg PO Q8H PRN PRN #12 tab PRN Reason: Vomiting
[2018-07-28 11:59] VITALS: BP 150/86; PULSE 83; RESP 14; O2SAT 100
[2018-07-28] MEDS: 0.9% Normal Saline 1,000 ML 1000 ML IV (12:15)
[2018-07-28] MEDS: Ondansetron 4 MG/2 ML Vial IV (12:16)
[2018-07-28 12:28] LABS: Absolute Lymphocyte Count 2.67 X10^3/ul (0.83-4.51); Absolute Neutrophil Count 6.9 X10^3/uL (2.0-7.7); Basophil# 0.02 X10^3/uL; Basophil% 0.2 % (0-1); Eosinophil# 0.24 X10^3/uL; Eosinophils% 2.3 % (0-5); Hematocrit 42.4 % (37-47); Hemoglobin 14.9 g/dl (12.0-15.0); Lymphocyte # 2.67 X10^3/ul (4.0); Lymphocyte % 25.5 % (19-41); Mean Corp Hgb Conc 35.1 g/gl (32-36); Mean Corpuscular Hgb 31.6 pg (27.0-32.0); Mean Corpuscular Volume 89.8 fL (81-99); Mean Platelet Vol. 11.3 fl (6.2-12.0); Monocyte# 0.65 X10^3/uL; Monocyte% 6.2 % (0-10); Neutrophil # 6.87 X10^3/uL (2.7-7.7); Neutrophil % 65.5 % (47-70); Platelet Count 252 K/mm3 (150-450); RBC Distribution Width CV 12.1 % (11.6-14.6); Red Blood Count 4.72 M/mm3 (4.2-5.4); White Blood Count 10.5 K/mm3 (4.4-11.0)
[2018-07-28 12:30] LABS: POSITIVE COUNT NO; POSITIVE DIFFERENTIAL NO; POSITIVE MORPHOLOGY NO
[2018-07-28 12:42] LABS: ALB/GLOB Ratio 1.1 RATIO (0.9-2.4); AST(SGOT) 15 U/L (15-37); Alanine Aminotransfer ALT/SGPT 27 U/L (13-56); Albumin, Serum 4.5 g/dL (3.2-5.0); Alkaline Phosphatase 81 U/L (45-117); Anion Gap 10 (5-15); BUN 15 mg/dL (7-18); BUN/Creat Ratio 14.7 RATIO (10-20); Calcium,Total 9.7 mg/dL (8.5-10.1); Chloride 97 mmol/L (98-107); Creatinine, Serum 1.02 mg/dL (0.55-1.02); EST Glomerular Filtration Rate 58 mL/min (>60); Est Glom Filt Rate - Afr Amer 70 mL/min (>60); Estimated Creatinine Clearance 46.09 ml/min; Globulin 4.1 g/dL (2.2-4.2); Glucose 348 mg/dL (74-106); Lipase 190 U/L (73-393); Potassium 3.9 mmol/L (3.5-5.1); Protein, Total 8.6 g/dL (6.4-8.2); Sodium Level 134 mmol/L (136-145)
[2018-07-28 13:46] VITALS: BP 108/58; PULSE 77; RESP 16; O2SAT 98
[2018-07-28 14:00] LABS: Bacteria 0 SEEN /hpf (None Seen); Mucous, Urine 0 SEEN /hpf (<or=2+); Red Blood Cells-Urine 0 SEEN /hpf (0-5)
[2018-07-28 14:01] LABS: Color, Urine Yellow (Yellow); Glucose, Dipstick 1000 mg/dl (Normal); Ketone-Dipstick Negative (Negative); Leukocyte Esterase-Dipstick 25 /ul (Negative); Nitrite-Dipstick Negative (Negative); Occult Blood-Urine Negative /ul (Negative); Protein-Dipstick Negative (Negative); Urine Bilirubin Dipstick Negative (Negative); Urine Clarity Sl. Cloudy (Clear); Urine Urobilinogen Normal (Normal)
[2018-07-28 14:07] LABS: Squamous Epithelial Cells - UA 0-5 SEEN /hpf (5-10); White Blood Cells 0-5 SEEN /hpf (0-5)
[2018-07-28 14:19] VITALS: BP 108/58; PULSE 75; RESP 18; O2SAT 97
== END 2018-07-28 14:52 | disposition home or self-care (01) ==
PROVIDERS: Emergency Provider Emergency Medicine; Family Provider Nurse Practitioner Family; PCP Nurse Practitioner Family
DX: R11.2 Nausea with vomiting, unspecified (principal); R19.7 Diarrhea, unspecified; R07.9 Chest pain, unspecified; M54.9 Dorsalgia, unspecified; R06.00 Dyspnea, unspecified; R68.83 Chills (without fever); R51 Headache; J34.89 Other specified disorders of nose and nasal sinuses; I25.10 Atherosclerotic heart disease of native coronary artery without angina pectoris; J44.9 Chronic obstructive pulmonary disease, unspecified; K21.9 Gastro-esophageal reflux disease without esophagitis; E11.9 Type 2 diabetes mellitus without complications; I10 Essential (primary) hypertension; E78.00 Pure hypercholesterolemia, unspecified; Z95.5 Presence of coronary angioplasty implant and graft; Z79.82 Long term (current) use of aspirin; Z79.4 Long term (current) use of insulin; Z79.84 Long term (current) use of oral hypoglycemic drugs; Z79.02 Long term (current) use of antithrombotics/antiplatelets; Z79.899 Other long term (current) drug therapy; Z72.0 Tobacco use
CPT/HCPCS: 71046; 80053; 81001; 83690; 85025; 93005; 96361; 96374; 99283; J7030; A4216; J2405

== ENCOUNTER 2018-07-29 12:22 | Emergency (ER) | payer MEDICARE, SELFPAY ==
[2017-03-16 08:30] VITALS: BMI 29.2
[2018-07-29 12:23] VITALS: BP 124/74; PULSE 87; RESP 19; TEMP 36.3; O2SAT 99; BMI 27.3
[2018-07-29] MEDS: Ondansetron 4 MG/2 ML Vial IV (12:49)
[2018-07-29] MEDS: 0.9% Normal Saline 1,000 ML 1000 ML IV (12:49)
[2018-07-29 13:12] LABS: Anion Gap 10 (5-15); BUN 10 mg/dL (7-18); BUN/Creat Ratio 9.4 RATIO (10-20); Chloride 101 mmol/L (98-107); Creatinine, Serum 1.06 mg/dL (0.55-1.02); EST Glomerular Filtration Rate 55 mL/min (>60); Est Glom Filt Rate - Afr Amer 67 mL/min (>60); Estimated Creatinine Clearance 44.35 ml/min; Glucose 405 mg/dL (74-106); Sodium Level 135 mmol/L (136-145)
[2018-07-29] MEDS: Insulin Lispro 100 UNIT/ML INSULN.PEN 8 UNIT SC (13:43)
--- NOTE | 2018-07-29 14:28 | ED.VISSUMM ---
- ER Visit Summary Date of Service: 07/29/18 Chief Complaint: Nausea, vomiting and diarrhea with hoarse voice that has gotten worse since yesterday. History of Present Illness: The patient is a 62 F who was seen yesterday for viral illness. Workup was unremarkable. She states her symptoms have gotten worse. She reports vomiting 5 times since this morning and for loose stools. She also states her voice is hoarse. She has a nonproductive cough. She also complains of bifrontal headache with generalized weakness. She denied fever but complained of chills. She does report sore throat. Review of systems otherwise negative. Please read written note for complete detail Physical Examination: Vital signs noted and unremarkable. Head is atraumatic normocephalic. Pupils are equal round reactive. Extraocular muscles are intact. TMs are pearly white with landmarks noted. Nares patent with no drainage. Posterior pharynx without erythema or exudate. Uvula is midline. There is no dysphonia or dysphasia. Tongue and buccal mucosa are dry trachea is midline. There is no stridor with auscultation of the neck. Heart is regular without murmur, gallop or rub. S1 and S2 are normal. Lungs are clear to auscultation with good movement of air bilaterally. Abdomen is soft and nontender. There is no guarding or peritoneal findings. There is no palpable pulsatile mass. There is no abdominal bruit. Salas sign is negative. Negative Rovsing sign. There is no evidence of inguinal or umbilical hernia. Neuro exam is nonfocal. Test Results: Basic metabolic panel is marked for glucose of 405 and creatinine of 1.06. Emergency Department Course and Treatment: Since patient reports no improvement and continued vomiting diarrhea a BMP was obtained to assess kidney function and blood sugar since she is diabetic. Treatment Plan: Normal saline 1 L wide open, Zofran 4 mg IV push and p.o. challenge. Patient did passed p.o. challenge. Because of her elevated blood sugar she was treated with subcu insulin Disposition: Discharged home Impression: 1. Abdominal pain with nausea, vomiting and diarrhea 2. Acute viral illness, pharyngitis 3. Mild dehydration 4. Hyper glycemia type II diabetic on insulin This note was generated with [employer] software. It may contain incorrect words, spelling, and punctuation that were not noted in review of the chart prior to signing ED Disposition - Plan for ED Patient: Disposition: Home or Assisted Living Chief Complaint: Nausea/Vomiting/Diarrhea Instructions: ED Vomiting Diarrhea Nonspecific Ad, ED Viral Syndrome, ED Hyperglycemia Diabetic Prescriptions: Ondansetron [Zofran Odt] 4 mg PO Q8H PRN PRN #10 tablet PRN Reason: Nausea Referrals: Monster Salcedo MD [Primary Care Provider] - 3-5 Days Additional Instructions: Your prescription was electronically transmitted to [facility] [place]; your preferred pharmacy.
[2018-07-29 14:54] VITALS: BP 112/63; PULSE 77; RESP 15; O2SAT 99
== END 2018-07-29 14:55 | disposition home or self-care (01) ==
PROVIDERS: Emergency Provider Emergency Medicine; Family Provider Family Medicine; PCP Family Medicine
DX: R10.9 Unspecified abdominal pain (principal); R11.2 Nausea with vomiting, unspecified; R19.7 Diarrhea, unspecified; B34.9 Viral infection, unspecified; J02.9 Acute pharyngitis, unspecified; R05 Cough; E86.0 Dehydration; E11.65 Type 2 diabetes mellitus with hyperglycemia; I25.2 Old myocardial infarction; J44.9 Chronic obstructive pulmonary disease, unspecified; K21.9 Gastro-esophageal reflux disease without esophagitis; I10 Essential (primary) hypertension; E78.00 Pure hypercholesterolemia, unspecified; Z79.82 Long term (current) use of aspirin; Z79.84 Long term (current) use of oral hypoglycemic drugs; Z79.4 Long term (current) use of insulin; Z79.02 Long term (current) use of antithrombotics/antiplatelets; Z79.899 Other long term (current) drug therapy; Z72.0 Tobacco use
CPT/HCPCS: 80048; 96361; 96372; 96374; 99283; J7030; J2405

== ENCOUNTER 2018-08-04 11:04 | Emergency (ER) | payer MEDICARE, SELFPAY ==
[2017-03-16 08:30] VITALS: BMI 29.2
[2018-08-04 11:06] VITALS: BP 153/67; PULSE 86; RESP 17; TEMP 36.4; O2SAT 100; BMI 24.5
--- NOTE | 2018-08-04 11:28 | NURSING ---
[facility] [address] B[address] 2 REPORT [phone]
--- NOTE | 2018-08-04 11:35 | ED.VISSUMM ---
- ER Visit Summary Date of Service: 08/04/18 Chief Complaint: Depression History of Present Illness: The patient is a 63 F who presents with depression that has been getting worse over the past couple weeks. Patient saw her psychiatrist today who states that the patient needs to be admitted to [facility]. Patient was referred to the emergency department to arrange for transportation to [facility]. Patient will be admitted directly to the psychiatric unit there. Patient admits to some depression but denies any suicidal ideations at the present time. Patient admits to some auditory hallucinations. Patient denies any chest pain or shortness of breath. Patient denies any nausea or vomiting. Physical Examination: Vital signs are stable. Patient is afebrile. Patient is in no acute distress. Oral mucosa is pink and moist. Neck is supple. Trachea is midline. There is no JVD noted. Heart was regular rate and rhythm. Lungs are clear and equal bilateral. There is good respiratory effort noted. Abdomen is soft and nontender. Cranial nerves II through XII are intact. There are no focal motor or sensory deficits noted. Patient has a depressed mood and flat affect. Patient currently denies any suicidal ideations. Emergency Department Course and Treatment: Case was discussed with the patient's psychiatrist. Patient will be transferred to [facility]. Disposition: Transfer to [facility] Impression: Depression, auditory hallucinations This note was generated with [employer] dictation software. It may contain incorrect words, spelling, and punctuation that were not noted in review of the chart prior to signing ED Disposition - Plan for ED Patient: Disposition: [facility] Chief Complaint: Suicidal Diagnosis: Depression, Auditory hallucinations Referrals: Monster Salcedo MD [Primary Care Provider] -
--- NOTE | 2018-08-04 11:38 | ED.DCSUM_ITS ---
- ER Visit Summary Date of Service: 08/04/18 Chief Complaint: Depression History of Present Illness: The patient is a 63 F who presents with depression that has been getting worse over the past couple weeks. Patient saw her psychiatrist today who states that the patient needs to be admitted to [facility]. Patient was referred to the emergency department to arrange for transportation to [facility]. Patient will be admitted directly to the psychiatric unit there. Patient admits to some depression but denies any suicidal ideations at the present time. Patient admits to some auditory hallucinations. Patient denies any chest pain or shortness of breath. Patient denies any nausea or vomiting. Physical Examination: Vital signs are stable. Patient is afebrile. Patient is in no acute distress. Oral mucosa is pink and moist. Neck is supple. Trachea is midline. There is no JVD noted. Heart was regular rate and rhythm. Lungs are clear and equal bilateral. There is good respiratory effort noted. Abdomen is soft and nontender. Cranial nerves II through XII are intact. There are no focal motor or sensory deficits noted. Patient has a depressed mood and flat affect. Patient currently denies any suicidal ideations. Emergency Department Course and Treatment: Case was discussed with the patient's psychiatrist. Patient will be transferred to [facility]. Disposition: Transfer to [facility] Impression: Depression, auditory hallucinations This note was generated with We[employer]In dictation software. It may contain incorrect words, spelling, and punctuation that were not noted in review of the chart prior to signing ED Disposition - Plan for ED Patient: Disposition: [facility] Chief Complaint: Suicidal Diagnosis: Depression, Auditory hallucinations Referrals: Monster Salcedo MD [Primary Care Provider] -
--- NOTE | 2018-08-04 11:46 | NURSING ---
CALLED [facility]. ETA IS 20 MIN
[2018-08-04 11:53] VITALS: BP 132/74; PULSE 71; RESP 14; O2SAT 99
[2018-08-04 12:06] LABS: Bedside Glucose 363 mg/dL (70-110)
[2018-08-04] MEDS: Acetaminophen 500 MG Tablet 1000 MG PO (12:06)
[2018-08-04 12:09] VITALS: RESP 14
[2018-08-04 12:59] VITALS: BP 134/71
== END 2018-08-04 13:08 | disposition short-term general hospital (02) ==
LOC: ED 11:45
PROVIDERS: Emergency Provider Emergency Medicine; Family Provider Family Medicine; PCP Family Medicine
DX: F32.9 Major depressive disorder, single episode, unspecified (principal); R44.0 Auditory hallucinations; R19.7 Diarrhea, unspecified; I25.10 Atherosclerotic heart disease of native coronary artery without angina pectoris; E11.9 Type 2 diabetes mellitus without complications; E78.00 Pure hypercholesterolemia, unspecified; Z90.49 Acquired absence of other specified parts of digestive tract; F17.200 Nicotine dependence, unspecified, uncomplicated; Z79.82 Long term (current) use of aspirin; Z79.4 Long term (current) use of insulin; Z79.84 Long term (current) use of oral hypoglycemic drugs; Z79.02 Long term (current) use of antithrombotics/antiplatelets; Z79.899 Other long term (current) drug therapy
CPT/HCPCS: 82962; 99283; H0035; 90853

== ENCOUNTER 2018-08-09 19:40 | Emergency (ER) | payer MEDICARE, SELFPAY ==
[2017-03-16 08:30] VITALS: BMI 29.2
[2018-08-09 19:41] VITALS: BP 120/63; PULSE 98; RESP 16; TEMP 36.2; O2SAT 100; BMI 25.3
--- NOTE | 2018-08-09 19:57 | EKG12_ITS ---
Test Reason : CP Blood Pressure : / mmHG Vent. Rate : 092 BPM Atrial Rate : 092 BPM P-R Int : 152 ms QRS Dur : 074 ms QT Int : 374 ms P-R-T Axes : 043 012 031 degrees QTc Int : 462 ms Normal sinus rhythm Normal ECG Confirmed by ADRIAN BARFIELD, DAVID ([id number]), editorial cartoonist ARON HASKINS ([id number]) on 08/16/2018 2:25:52 PM Referred By: DR RUSSELL Confirmed By:DAVID CAMPBELL MD
--- NOTE | 2018-08-09 20:00 | RAD_ITS ---
STUDY: X-RAY CHEST REASON FOR EXAM: Female, 63 years old. Chest pain TECHNIQUE: 1 view COMPARISON: Prior chest radiograph of July 28, 2018 FINDINGS: Shallow inspiration with mild bibasilar atelectatic changes. There is no demonstrated pleural abnormality. Normal size heart. Visible left coronary stent unchanged from prior exam. Normal visualized pulmonary arteries. Normal visualized aortic arch and descending thoracic aorta. Normal visualized thoracic spine. Normal visualized ribs, clavicles, and shoulders. There is no demonstrated abnormality of the visualized soft tissue structures of the upper abdomen. RAD/Chest 1 View (Portable) IMPRESSION: No acute cardiopulmonary findings or changes. Negative for new consolidation, focal atelectasis or substantial pleural effusion. Mild generalized bibasilar atelectatic changes secondary to shallow inspiration. Left coronary stent unchanged in appearance. Electronically Signed: Vero Stauffer MD at 20:28 EDT , Service support ,
[2018-08-09] MEDS: 0.9% Normal Saline 1,000 ML 1000 ML IV (20:12)
[2018-08-09] MEDS: Aspirin 81 MG TAB.CHEW 324 MG PO (20:12)
[2018-08-09] MEDS: fentaNYL 100 MCG/2 ML Ampul 25 MCG IV (20:13)
[2018-08-09 20:14] VITALS: O2SAT 98
[2018-08-09 20:18] LABS: Absolute Lymphocyte Count 4.18 X10^3/ul (0.83-4.51); Absolute Neutrophil Count 5.4 X10^3/uL (2.0-7.7); Basophil# 0.02 X10^3/uL; Basophil% 0.2 % (0-1); Eosinophil# 0.43 X10^3/uL; Eosinophils% 3.9 % (0-5); Hematocrit 36.8 % (37-47); Hemoglobin 12.2 g/dl (12.0-15.0); Lymphocyte # 4.18 X10^3/ul (4.0); Lymphocyte % 37.9 % (19-41); Mean Corp Hgb Conc 33.2 g/gl (32-36); Mean Corpuscular Hgb 30.8 pg (27.0-32.0); Mean Corpuscular Volume 92.9 fL (81-99); Monocyte% 8.2 % (0-10); Neutrophil # 5.44 X10^3/uL (2.7-7.7); Neutrophil % 49.3 % (47-70); POSITIVE COUNT NO; POSITIVE DIFFERENTIAL NO; POSITIVE MORPHOLOGY NO; Platelet Count 232 K/mm3 (150-450); RBC Distribution Width CV 12.3 % (11.6-14.6); RBC Distribution Width SD 41.5 fl (35.1-43.9); Red Blood Count 3.96 M/mm3 (4.2-5.4)
[2018-08-09 20:21] LABS: International Normalized Ratio 0.8; Partial Thromboplast Time 25.1 Seconds (24.1-36.2); Prothrombin Time (Protime)PT. 11.3 SECONDS (11.7-14.9)
[2018-08-09 20:25] LABS: Albumin, Serum 3.7 g/dL (3.2-5.0); BUN 23 mg/dL (7-18); BUN/Creat Ratio 24.9 RATIO (10-20); Creatinine, Serum 0.92 mg/dL (0.55-1.02); EST Glomerular Filtration Rate 65 mL/min (>60); Est Glom Filt Rate - Afr Amer 78 mL/min (>60); Estimated Creatinine Clearance 50.43 ml/min; Glucose 235 mg/dL (74-106); Protein, Total 7.1 g/dL (6.4-8.2)
[2018-08-09 20:26] LABS: ALB/GLOB Ratio 1.1 RATIO (0.9-2.4); AST(SGOT) 20 U/L (15-37); Alanine Aminotransfer ALT/SGPT 28 U/L (13-56); Alkaline Phosphatase 57 U/L (45-117); Anion Gap 9 (5-15); Calcium,Total 9.2 mg/dL (8.5-10.1); Chloride 101 mmol/L (98-107); Globulin 3.4 g/dL (2.2-4.2); Lipase 427 U/L (73-393); Potassium 4.3 mmol/L (3.5-5.1); Sodium Level 138 mmol/L (136-145)
[2018-08-09 20:38] VITALS: BP 116/68; PULSE 88; RESP 24; O2SAT 98
[2018-08-09 21:00] VITALS: BP 141/74; PULSE 84; RESP 16; O2SAT 98
--- NOTE | 2018-08-09 21:26 | ED.VISSUMM ---
- ER Visit Summary Date of Service: 08/09/18 Chief Complaint: Chest pain History of Present Illness: The patient is a 63 F with chest pain since 5:30 PM today. It is substernal and radiates to her arm and left shoulder. Associate with nausea and vomiting. Patient has a history of [place], diabetes, hypertension, hyperlipidemia, and COPD. Nothing seemed to bring this on. No pain with exertion. Nothing seems to make it better. Patient had a negative stress test in March of this year. She has been compliant with her medications. Physical Examination: Vital signs normal. Afebrile. No acute distress. Sitting comfortably. Skin normal in color without pallor or diaphoresis. Heart regular rate and rhythm. Lungs clear bilaterally. Abdomen soft and nontender. Calves soft and supple. Pulses strong and equal. Test Results: EKG shows sinus rhythm at a rate of 92. No sign of acute ischemia or infarction pattern. CBC normal. Glucose 235. Lipase 427. Coags normal. Troponin normal. Chest x-ray showed chronic findings, nothing acute. Emergency Department Course and Treatment: Patient had an EKG. Placed on a monitor. Treated with aspirin and fentanyl while awaiting results. Patient's story was concerning. I reviewed her chart. She had a negative stress test just a few months ago. The patient says that she has been evaluated for the symptoms previously. Her workup was all fairly unremarkable. Her lipase is slightly elevated, but not consistent with pancreatitis. She has no abdominal tenderness or other GI symptoms besides nausea and vomiting. Patient would like to go home. I believe this is reasonable given her recent negative stress test. I advised her to follow-up with her doctor. Return right away for any new or worsening issues. Treatment Plan: As above Disposition: Discharge Impression: 1. Chest pain This note was generated with [employer] software. It may contain incorrect words, spelling, and punctuation that were not noted in review of the chart prior to signing ED Disposition - Plan for ED Patient: Chief Complaint: Chest Pain Referrals: Monster Salcedo MD [Primary Care Provider] -
--- NOTE | 2018-08-09 21:30 | ED.DCSUM_ITS ---
- ER Visit Summary Date of Service: 08/09/18 Chief Complaint: Chest pain History of Present Illness: The patient is a 63 F with chest pain since 5:30 PM today. It is substernal and radiates to her arm and left shoulder. Associate with nausea and vomiting. Patient has a history of [place], diabetes, hypertension, hyperlipidemia, and COPD. Nothing seemed to bring this on. No pain with exertion. Nothing seems to make it better. Patient had a negative stress test in March of this year. She has been compliant with her medications. Physical Examination: Vital signs normal. Afebrile. No acute distress. Sitting comfortably. Skin normal in color without pallor or diaphoresis. Heart regular rate and rhythm. Lungs clear bilaterally. Abdomen soft and nontender. Calves soft and supple. Pulses strong and equal. Test Results: EKG shows sinus rhythm at a rate of 92. No sign of acute ischemia or infarction pattern. CBC normal. Glucose 235. Lipase 427. Coags normal. Troponin normal. Chest x-ray showed chronic findings, nothing acute. Emergency Department Course and Treatment: Patient had an EKG. Placed on a monitor. Treated with aspirin and fentanyl while awaiting results. Patient's story was concerning. I reviewed her chart. She had a negative stress test just a few months ago. The patient says that she has been evaluated for the symptoms previously. Her workup was all fairly unremarkable. Her lipase is slightly elevated, but not consistent with pancreatitis. She has no abdominal tenderness or other GI symptoms besides nausea and vomiting. Patient would like to go home. I believe this is reasonable given her recent negative stress test. I advised her to follow-up with her doctor. Return right away for any new or worsening issues. Treatment Plan: As above Disposition: Discharge Impression: 1. Chest pain This note was generated with [employer] software. It may contain incorrect words, spelling, and punctuation that were not noted in review of the chart prior to signing ED Disposition - Plan for ED Patient: Chief Complaint: Chest Pain Referrals: Monster Salcedo MD [Primary Care Provider] -
--- NOTE | 2018-08-09 21:30 | ED.DEP ---
ED Disposition - Plan for ED Patient: Chief Complaint: Chest Pain Instructions: ED Chest Pain Atypical Unkn Cause Referrals: Monster Salcedo MD [Primary Care Provider] -
[2018-08-09 21:47] VITALS: BP 124/75
== END 2018-08-09 21:48 | disposition home or self-care (01) ==
LOC: ED 20:13
PROVIDERS: Emergency Provider Emergency Medicine; Family Provider Family Medicine; PCP Family Medicine
DX: R07.9 Chest pain, unspecified (principal); R11.2 Nausea with vomiting, unspecified; R06.00 Dyspnea, unspecified; R61 Generalized hyperhidrosis; I25.2 Old myocardial infarction; J44.9 Chronic obstructive pulmonary disease, unspecified; E11.9 Type 2 diabetes mellitus without complications; I10 Essential (primary) hypertension; E78.00 Pure hypercholesterolemia, unspecified; Z79.82 Long term (current) use of aspirin; Z79.84 Long term (current) use of oral hypoglycemic drugs; Z79.4 Long term (current) use of insulin; Z79.02 Long term (current) use of antithrombotics/antiplatelets; Z79.899 Other long term (current) drug therapy; F17.210 Nicotine dependence, cigarettes, uncomplicated
CPT/HCPCS: 71045; 80053; 83690; 84484; 85025; 85610; 85730; 93005; 96361; 96374; 99285; J7030; A4216

== ENCOUNTER → 2018-08-16 10:57 | Outpatient (CLI) | payer MEDICARE, SELFPAY ==
[2017-03-16 08:30] VITALS: BMI 29.2
--- NOTE | 2018-08-16 11:10 | NM_ITS ---
CLINICAL: 63-year-old female with history of early satiety. SEMI-SOLID PHASE 99m Tc SULFUR COLLOID GASTRIC EMPTYING STUDY COMPARISON: None available FINDINGS: The patient was administered 1.1 mCi of 99m Tc sulfur colloid mixed with oatmeal and consumed per os. Image acquisitions in the anterior-posterior projections for a total of 60 minutes. There is prompt visualization of the stomach. There is no gastroesophageal reflux identified. The T1/2 linear fit was calculated to be 35.14 minutes, (Normal: 12-56 minutes). NM/Gastric Emptying Study IMPRESSION: 1. NORMAL 99m Tc sulfur colloid semi-solid phase (oatmeal) gastric emptying imaging examination. A. There is normal and preserved semi-solid phase gastric emptying compared to normal controls. (Darron et al, J Nucl Med Tech 38: 186, 2010). Electronically Signed: Dany Carr DO at 10:54 EST Tel , Service support ,
== END ==
LOC: NM 10:58
PROVIDERS: Family Provider Family Medicine; PCP Family Medicine; Referring Provider Family Medicine; Visit Provider Family Medicine
DX: R68.81 Early satiety (principal)
CPT/HCPCS: 78264; A9541

== ENCOUNTER 2018-08-23 08:51 | Outpatient (RCR) | payer MEDICARE, SELFPAY ==
[2017-03-16 08:30] VITALS: BMI 29.2
--- NOTE | 2018-08-23 10:15 | BH.SGPN.GN ---
Behaviors/Verbalizations/Mental Status: [] Pt eye contact good, casually dressed, motor activity appropriate, speech normal rate and tone, mood euthymic, congruent affect, thoughts linear and intact, no evidence of delusions or hallucinations. Client Response/Progress/Benefit: []Pt passive participant AEB limited verbal contributions, showed engagement by listening attentively to others and taking notes. Pt appeared to connect with others about challenges of making personal change AEB nodding her head when others identified fear and negativity as barriers. Pt able to connect the various emotions discussed and identify how specific emotions can impact change process. Pt seemed to benefit from increased awareness of stages of change. Narrative Note: []
--- NOTE | 2018-08-23 10:49 | BH.MDN ---
Multi-Disciplinary Note - Note 30-min Individual Time Started:: 09:38 Date: 08/23/18 Purpose of session/treatment goals addressed:: Purpose of session was to assess current symptoms and stressors. Another purpose was to process recent hospitalization, discuss strategies for maintaining current stability and identify treatment goals. Eye Contact:: Good Motor Activity:: Appropriate Appearance:: Casual Speech:: Appropriate Mood:: Euthymic Affect:: Full, Bright Thoughts:: Linear, Logical, No evidence of hallucinations/delusions noted Staff Interventions:: Therapist used open ended questions to elicit pt's current stressors and symptoms. Therapist processed with client recent hospitalization and discussed with client strategies to prevent further hospitalization. Reviewed plan to maintain safety. Commended client on medication compliance and reaffirmed importance of continuing to do so. Utilized HI techniques to encourage change behaviors and develop treatment goals. Client Response:: Client in a positive mood and openly discussed current symptoms, stressors, and adjustments made since recent inpatient hospitalization. Client reflected that she is glad to be back but happy that she had taken the initiative to seek a higher level of care, resulting in most recent inpatient hospitalization and discharge from IOP program on 08/04/18. Client reports I am so happy you guys pink slipped me. Notes that her experience on the inpatient unit had been a positive one. Client discussed that the doctors had been very friendly and she was able to attend groups which had helped in improving client stability while adjusting medications. Client went on to share that since returning home she has not experienced any auditory command hallucinations, SI, or thoughts of self harming. Reports medication changes have been beneficial in improving client sleep as well as ability to regulate emotions. Indicates she has noticed increased ability to identify when becoming irritable and is able to take steps to prevent further anger escalation. Client discussed that this has a positive impact on her personal relationships and that she is getting along better with supports. Client indicates her daughter has been particularly helpful since client return home and is working with client on finding healthy ways to spend time together. Client further discussed taking steps to improve relationship with her by initiating a conversation regarding their communication and client's needs. Client reports medication compliant since discharge from inpatient hospitalization on 08/09/18. Client unable to begin IOP program until now due to increased health and transportation issues which she discussed has increased current stress and anxiety levels. Client reports that while in the IOP program she would like to work on continuing to improve anger management and emotional regulation skills as well as develop a safety and prevention plan for auditory and command hallucinations causing increased SI. Risks/Concerns:: Client discharged from inpatient hospitalization on 08/09/18 due to increased auditory hallucinations and mood dysregulation causing increased SI and urges to act mean towards MK, Client daughter. Client denies any auditory or command hallucinations since inpatient hospitalization. Reports medication compliance. Denies SI/HI, plan or intent as of 08/23/18. Is future oriented citing plans to go to [facility] with her sister on Tuesday and attend group tomorrow. Aware of and willing to utilize local crisis resources if unable to maintain safety. Progress Toward Goals/Plan:: No progress observed given this is pt's first day back in IOP. Session focused on identifying treatment goals. Pt reports wanting to focus on increasing mood regulation and anger management, establishing a safety, prevention, coping plan for hallucinations, and preventing decompensation. Time Stopped:: 10:05
--- NOTE | 2018-08-23 11:11 | BH.MDN_ITS ---
Multi-Disciplinary Note - Note 30-min Individual Time Started:: 09:38 Date: 08/23/18 Purpose of session/treatment goals addressed:: Purpose of session was to assess current symptoms and stressors. Another purpose was to process recent hospitalization, discuss strategies for maintaining current stability and identify treatment goals. Eye Contact:: Good Motor Activity:: Appropriate Appearance:: Casual Speech:: Appropriate Mood:: Euthymic Affect:: Full, Bright Thoughts:: Linear, Logical, No evidence of hallucinations/delusions noted Staff Interventions:: Therapist used open ended questions to elicit pt's current stressors and symptoms. Therapist processed with client recent hospitalization and discussed with client strategies to prevent further hospitalization. Reviewed plan to maintain safety. Commended client on medication compliance and reaffirmed importance of continuing to do so. Utilized OR techniques to encourage change behaviors and develop treatment goals. Client Response:: Client in a positive mood and openly discussed current symptoms, stressors, and adjustments made since recent inpatient hospitalization. Client reflected that she is glad to be back but happy that she had taken the initiative to seek a higher level of care, resulting in most recent inpatient hospitalization and discharge from IOP program on 08/04/18. Client reports I am so happy you guys pink slipped me. Notes that her exper ience on the inpatient unit had been a positive one. Client discussed that the doctors had been very friendly and she was able to attend groups which had helped in improving client stability while adjusting medications. Client went on to share that since returning home she has not experienced any auditory command hallucinations, SI, or thoughts of self harming. Reports medication changes have been beneficial in improving client sleep as well as ability to regulate emotions. Indicates she has noticed increased ability to identify when becoming irritable and is able to take steps to prevent further anger escalation. Client discussed that this has a positive impact on her personal relationships and that she is getting along better with supports. Client indicates her daughter has been particularly helpful since client return home and is working with client on finding healthy ways to spend time together. Client further discussed taking steps to improve relationship with her b y initiating a conversation regarding their communication and client's needs. Client reports medication compliant since discharge from inpatient hospitalization on 08/09/18. Client unable to begin IOP program until now due to increased health and transportation issues which she discussed has increased current stress and anxiety levels. Client reports that while in the IOP program she would like to work on continuing to improve anger management and emotional regulation skills as well as develop a safety and prevention plan for auditory and command hallucinations causing increased SI. Risks/Concerns:: Client discharged from inpatient hospitalization on 08/09/18 due to increased auditory hallucinations and mood dysregulation causing increased SI and urges to act mean towards MK, Client daughter. Client denies any auditory or command hallucinations since inpatient hospitalization. Reports medication compliance. Denies SI/HI, plan or intent as of 08/23/18. Is future oriented citing plans to go to [facility] with her sister on Tuesday and attend group tomorrow. Aware of and willing to utilize local crisis resources if unable to maintain safety. Progress Toward Goals/Plan:: No progress observed given this is pt's first day back in IOP. Session focused on identifying treatment goals. Pt reports wanting to focus on increasing mood regulation and anger management, establishing a safety, prevention, coping plan for hallucinations, and preventing decompensation. Time Stopped:: 10:05
--- NOTE | 2018-08-23 11:25 | BH.SGPN.GN ---
Behaviors/Verbalizations/Mental Status: [] Pt eye contact fair, casually dressed, motor activity appropriate, speech normal rate and tone, mood euthymic, constricted affect, thoughts linear and intact, no evidence of delusions or hallucinations. Client Response/Progress/Benefit: []Pt engaged during challenge activity of adapting to change and listened attentively to peers. Pt appeared to relate to peers about the positive skills and strategies utilized during activity that helped group be successful with adapting to change. With assistance pt able to connect how important communication is when it comes to making a change. Pt seemed to benefit from learning about decisional balance tool and a structured process of identifying steps to change. Pt to continue IOP level of care to stabilize moods and prevent decompensation. Narrative Note: []
--- NOTE | 2018-08-24 09:07 | BH.COMM ---
Communication Note - Communication with Client Communication Note: Client indicated wanting to touch base with this therapist following a difficult evening the previous night. Client discussed that she had been having a real good night with my and was winding down for the evening when she began to re-experience auditory hallucinations telling her to go in the other room and take all my medication. Client reports the voice to be different from previous voices heard as this was a female this time. CLient reports the experience lasted approximately 30 minutes and that she was able to easily challenge this. She indicated I told it 'you're not the boss of me' and 'I'm not listening to you' which was helpful in reducing the intensity. Client denies any SI, plan, or intent and reports strong motivation to improve her ability to manage current symptoms. CLient willing to secure medications in a locked cabinent. Able to safety plan for the weekend. Aware of local crisis resources and willing to safety seek help should she feel unable to maintain safety at anytime. Client to meet will program psychiatrist on this date to further discuss concerns.
--- NOTE | 2018-08-24 09:10 | BH.SGPN.GN ---
Behaviors/Verbalizations/Mental Status: [] Eye contact is good. Motor activity is appropriate. Appearance is casual. Speech is Appropriate. Mood is anxious. Affect is congruent. Thoughts are linear and logical. No evidence of psychosis. Reviewed daily check in sheet and no reports of suicidal ideations or intent. Client Response/Progress/Benefit: [] Pt spoke little during group discussions however was attentive. Shared with the group that yesterday was stressful. Reported that re-experienced auditory hallucinations last night which was upsetting to her. Visibly angry that these symptoms returned. Reports that today is going much better and reports feeling awesome this AM. Reports that she is focusing on the positives and the moment. Meeting with psychiatrist today as well to discuss further. Benefited from group support and feedback. Will continue in IOP to prevent decompensation, stabilize symptoms, and maintain safety. Narrative Note: []
--- NOTE | 2018-08-24 10:10 | BH.SGPN.GN ---
Behaviors/Verbalizations/Mental Status: []Client alert and oriented, casual dress. Eye contact good. Motor activity appropriate. Speech within normal limits. Affect constricted, mood anxious. Thoughts linear, logical, no signs of hallucinations or delusions Client Response/Progress/Benefit: []Client responded well to session, quiet, but participating when prompted. Client appeared to connect with the quote sharing, one can ruin relationships because of emotional dysregulation. Client reported being able to communicate when experiencing strong emotions helps a person ?get the help you need,? but one can face communication barriers. Client participated in the activity and was anxious using self-doubt statements including ?I won?t be able to do this right.? However, client engaged in the activity anyway and was successful. Client appeared to benefit from challenging her self-doubt and having a positive experience. Progress limited as client returned to IOP yesterday. Recommended to continue IOP to increase mood stability, learn healthy coping skills, and increase self-awareness of triggers and warning signs.
--- NOTE | 2018-08-24 10:20 | PCM.HP.BLA ---
History and Physical This is an update to the history and physical of 07/21/2018. Patient's previous participation in behavioral medicine IOP was interrupted due to need for inpatient psychiatric hospitalization due to decompensation and exacerbation of symptoms. Patient is status post inpatient psychiatric hospitalization [facility] August 04, 2018 through August 09, 2018 under the care of Dr. Chapman. Current history is been obtained per interview with patient, discussion with staff, review of records. Records reviewed including discharge summary from 08/09/[address] Chapman and records from [facility]. Case discussed with treatment team. Chief complaint I am starting her the voices again Interim history Patient was initially admitted to the behavioral medicine IOP July 21, 2018 for depression with psychotic features. Her participation in [facility] was interrupted for inpatient psychiatric hospitalization due to auditory command hallucinations and suicidal thoughts with inability to contract for safety. During her inpatient hospitalization she was started on in Pillai 3 mg daily, Seroquel 50 mg nightly, and lithium 300 mg ER twice daily patient had mood stabilization and resolution of auditory hallucinations during her inpatient hospitalization. She reports however that she had recurrent auditory hallucinations last night of the previous voices telling her to take her medications. She was able to challenge and ignore them. The auditory hallucinations resolved with distraction. She denies any other suicidal thoughts. She denies current suicide plan or intent. She denies current command hallucinations. She denies homicidal thoughts. She reports that overall continues to have depressive symptoms but of decreased intensity to her hospitalization. She has ruminative anxiety regarding her progress. She has been sleeping from 10 PM to 6 AM. Her sleep is interrupted. Appetite is normal. Denies nausea vomiting or diarrhea. Reports she quit smoking 4 days ago. Compliant with medications from inpatient hospitalization. Denies adverse effects. Please see H&P of 07/21/2018 for further history. Mental status exam Alert and oriented . No acute distress. Ambulatory with normal gait and station. Appears stated age. Casually dressed and groomed. Appropriate hygiene. Cooperative with interview. Good eye contact. No psychomotor agitation or retardation. Mood depressed. Affect congruent. Speech is clear and with regular rate and rhythm. Language fluent. Thought process organized. Associations logical. Thought content significant for ruminative anxiety and themes of depression. No suicidal or homicidal ideation related or detected. Reports auditory hallucinations last night. Denies current hallucinations. Immediate recent and remote memory grossly intact. Attention and concentration are fair. Estimated intelligence and fund of knowledge average. Judgment and insight fair. 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 Rule out bipolar disorder. Anxiety unspecified Nicotine use disorder Insulin-dependent diabetes Coronary artery disease COPD Plan Admit to IOP as the structured setting is necessary to prevent decompensation and rehospitalization. Risk-benefit alternative of medications discussed with patient. Patient acknowledges understanding. Increase in Pillai 6 mg p.o. daily. Increase Seroquel to 100 mg p.o. nightly. Prescriptions provided. Continue lithium 300 mg p.o. twice daily. Requisition provided for lithium level which patient will obtain tomorrow. Encouraged ongoing nicotine abstinence. 16 minutes of supportive psychotherapy provided. Patient acknowledges understanding and is in agreement with plan. Feels able to maintain safety. Agrees to seek help or emergency care if feeling unsafe to self or others. Patient agrees to go to the emergency department showed auditory command hallucinations recur.
--- NOTE | 2018-08-24 10:29 | HP.PCM_ITS ---
History and Physical This is an update to the history and physical of 07/21/2018. Patient's previous participation in behavioral medicine IOP was interrupted due to need for inpatient psychiatric hospitalization due to decompensation and exacerbation of symptoms. Patient is status post inpatient psychiatric hospitalization [facility] August 04, 2018 through August 09, 2018 under the care of Dr. Chapman. Current history is been obtained per interview with patient, discussion with staff, review of records. Records reviewed including discharge summary from 08/09/[address] Chapman and records from [facility]. Case discussed with treatment team. Chief complaint I am starting her the voices again Interim history Patient was initially admitted to the behavioral medicine IOP July 21, 2018 for depression with psychotic features. Her participation in [facility] was interrupted for inpatient psychiatric hospitalization due to auditory command hallucinations and suicidal thoughts with inability to contract for safety. During her inpatient hospitalization she was started on in Pillai 3 mg daily, Seroquel 50 mg nightly, and lithium 300 mg ER twice daily patient had mood stabilization and resolution of auditory hallucinations during her inpatient hospitalization. She reports however that she had recurrent auditory hallucinations last night of the previous voices telling her to take her medications. She was able to challenge and ignore them. The auditory hallucinations resolved with distraction. She denies any other suicidal thoughts. She denies current suicide plan or intent. She denies current command hallucinations. She denies homicidal thoughts. She reports that overall continues to have depressive symptoms but of decreased intensity to her hospitalization. She has ruminative anxiety regarding her progress. She has been sleeping from 10 PM to 6 AM. Her sleep is interrupted. Appetite is normal. Denies nausea vomiting or diarrhea. Reports she quit smoking 4 days ago. Compliant with medications from inpatient hospitalization. Denies adverse effects. Please see H&P of 07/21/2018 for further history. Mental status exam Alert and oriented . No acute distress. Ambulatory with normal gait and station. Appears stated age. Casually dressed and groomed. Appropriate hygie ne. Cooperative with interview. Good eye contact. No psychomotor agitation or retardation. Mood depressed. Affect congruent. Speech is clear and with regular rate and rhythm. Language fluent. Thought process organized. Associations logical. Thought content significant for ruminative anxiety and themes of depression. No suicidal or homicidal ideation related or detected. Reports auditory hallucinations last night. Denies current hallucinations. Immediate recent and remote memory grossly intact. Attention and concentration are fair. Estimated intelligence and fund of knowledge average. Judgment and insight fair. 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 Rule out bipolar disorder. Anxiety unspecified Nicotine use disorder Insulin-dependent diabetes Coronary artery disease COPD Plan Admit to IOP as the structured setting is necessary to prevent decompensation and rehospitalization. Risk-benefit alternative of medications discussed with patient. Patient acknowledges understanding. Increase in Pillai 6 mg p.o. daily. Increase Seroquel to 100 mg p.o. nightly. Prescriptions provided. Continue lithium 300 mg p.o. twice daily. Requisition provided for lithium level which patient will obtain tomorrow. Encouraged ongoing nicotine abstinence. 16 m inutes of supportive psychotherapy provided. Patient acknowledges understanding and is in agreement with plan. Feels able to maintain safety. Agrees to seek help or emergency care if feeling unsafe to self or others. Patient agrees to go to the emergency department showed auditory command hallucinations recur.
--- NOTE | 2018-08-24 10:29 | BH.DR.ITP ---
Initial Treatment Plan - Patient Information Visit Information: ADMISSION DATE: EXPECTED LOS: 4-6 weeks Diagnoses:: Major depressive disorder with psychotic features - Problems/Symptoms Problem #1:: Depression Symptom:: Sad mood, biologic disruption of sleep, auditory hallucinations of Problem #2:: Anxiety Symptom:: Rumination
--- NOTE | 2018-08-24 11:15 | BH.SGPN.GN ---
Behaviors/Verbalizations/Mental Status: []Client alert and oriented, casual dress. Eye contact fair. Motor activity appropriate. Speech soft, taking notes. Affect constricted, mood irritable, anxious. Thoughts linear, logical, no signs of hallucinations or delusions. Client Response/Progress/Benefit: []Client responded mostly well to session, quiet, but taking notes. Client reported relating to the zones of regulation and re-triggering emotions. Client listened as the group discussed the different zones and provided input to what a person might need in each zone to help return to baseline or maintain baseline. Client reported today she is in the ?yellow? zone as she feels irritable and anxious right now. Client stated going for a walk or doing something with her daughter today would help client return to baseline. Client appeared to struggle with identifying her warning signs for each zone. Client appeared to benefit from learning different emotions, behaviors, and coping skills for each zone. Client to continue IOP to increase mood stability and self-awareness to prevent decompensation.
--- NOTE | 2018-08-24 17:10 | BH.MTP_ITS ---
[facility] Treatment Plan - Patient Information Program Physician:: Roseline Rios Primary Therapist:: MAURO Meléndez - Psychiatric Diagnoses Psychiatric Diagnoses:: Major depressive disorder recurrent severe with psychotic features. Rule out bipolar disorder. Anxiety unspecified Diagnosis Code(s):: F33.2 - Estimated LOS Estimated LOS (in weeks):: 6 Problem/Goal #1 - Problem/Goal #1 Stated Goal:: Client will reduce depressive sx of hopelessness, guilt, anhedonia, and intrusive thoughts which cause SI and impact ability to function. Functional Impact: Patient is a 62-year-old female who was originally referred to the behavioral health IOP by hospital social work supervisor/ case management for evaluation and treatment of mood symptoms and anxiety. Patient's previous participation in behavioral medicine IOP was interrupted due to need for inpatient psychiatric hospitalization at [facility] August 04, 2018 through August 09, 2018. Inpatient hospitalization due to decompensation and exacerbation of symptoms related to auditory command hallucinations and failure to contract for safety. Patient reports a long- standing history of depression and irritability. At time of intake she endorses a depressed mood with crying spells, anhedonia, decreased energy, and difficulty concentrating. She has passive thoughts of not waking up or ?taking all my pills?. Client denies active plan or intent and willing to lock-up medication. Denies active SI/HI or current command hallucinations at this time. - Objectives Objective #1 Stated Objective: Client will learn and utilize 2-3 healthy coping strategies to better manage depressive symptoms as shown by a reduced DSM-5 scores for depression. Interventions: Through group and individual sessions, therapist will help client identify triggers and warning signs of depression and emotional dysregulation including emotional, physical, and behavioral changes. Therapist will teach client various coping skills to manage symptoms and give client tangible resources to use to regulate emotions. Therapist will use cognitive restructuring techniques and help client gain awareness of negative thoughts that reinforce hopelessness and depression. Therapist will provide psychoeducation on maintenance cycles and help client learn ways to break unhealthy maintenance cycles. Discharge Criteria: Client will have met this goal when he can report learning and using at least 2 coping skills to manage depressive symptoms. Additionally, client will have met this goal when depressive symptoms have reduced on the DSM- 5 scale. Objective #2 Stated Objective: Client will identify and replace 2-3 negative thinking patterns that reinforce depressive symptoms, intrusive thoughts, guilt, and negative self-talk. Interventions: Through groups and individual therapy, client will be provided with education on cognitive distortions, mistaken beliefs, and identifying and combating negative self-talk. Therapist will assist client in recognizing triggers for increased self-deprecating and depressive thought patterns. Therapist will help client explore connection between thoughts, feelings, and actions and help client reframe depressive thought patterns. Therapist will help client gain awareness of why client has developed negative thoughts and core beliefs of self and teach client how to reframe these thoughts. Discharge Criteria: Client will have accomplished this goal when client can identify and replace at least 2 negative thinking patterns with more realistic, positive statements. Problem/Goal #2 - Problem/Goal #2 Stated Goal:: Stabilize anxiety level due to Generalized Anxiety Disorder while increasing ability to function on daily basis. Functional Impact: Patient is a 62-year-old female who was originally referred to the behavioral health IOP by hospital social work supervisor/ case management for evaluation and treatment of mood symptoms and anxiety. Patient's previous participation in behavioral medicine IOP was interrupted due to need for inpatient psychiatric hospitalization at [facility] August 04, 2018 through August 09, 2018. Inpatient hospitalization due to decompensation and exacerbation of symptoms related to auditory command hallucinations and failure to contract for safety. Patient reports a long- standing history of depression and irritability. At time of intake she endorses a depressed mood with crying spells, anhedonia, decreased energy, and difficulty concentrating. She has passive thoughts of not waking up or ?taking all my pills?. Client denies active plan or intent and willing to lock-up medication. Denies active SI/HI or current command hallucinations at this time. - Objectives Objective #1 Stated Objective: Client will identify 2-3 cognitive distortions or mistaken beliefs that lead to rumination and learn 2-3 ways to manage these thoughts to reduce anxiety. Interventions: Therapist will provide education on the most common cognitive distortions and teach client the connection between thoughts, emotions, and feelings. Therapist will assist client in identifying, challenging, and replacing dysfunctional thoughts with positive, more realistic thoughts. Therapist will use CBT and DBT techniques to help client gain awareness of thinking errors and learn how to more effectively handle negative thoughts. Therapist will also help client increase his distress tolerance skills. Discharge Criteria: client will have accomplished this goal when can identify at least 2 cognitive distortions and at least 2 coping skills to manage negative thoughts. Objective #2 Stated Objective: Client will identify 2-3 anxiety triggers and 2 calming coping skills to reduce anxiety as shown by decreased DSM-5 cross cutting symptom measure scores. Interventions: Therapist will help client increase awareness of anxiety triggers and educate client on the ways anxiety impacts overall health. Therapist will teach client various calming and mindfulness strategies to promote emotional regulation and reduction of anxiety. Therapist will encourage client to implement healthy coping skills on a regular basis. Discharge Criteria: Client will have accomplished this goal when can report at least 2 triggers for anxiety and 2 calming strategies to manage symptoms. Additionally, client will have accomplished this goal when he can report reduced DSM-5 cross cutting symptoms for anxiety.
--- NOTE | 2018-08-25 11:41 | BH.COMM ---
Communication Note - Communication with Client Communication Note: Client spoke briefly with this therapist via telephone to review safety plan for the weekend. CLient reports she has secured medications in a safe place and will be administered by until client stability and symptom management improves. Client indicates an ability to maintain safety of self and others. Denies auditory command hallucinations since Tuesday evening, 08/23, which were discussed with program psyhciatrist - see h/p note. Client denies SI, plan, or intent. Denies HI. Is future oriented, reporting plans to spend time with sister vinayak and go to [employer] tomorrow. Client agreeable to seek emergency medical care should she feel inability to maintain safety or if auditory command halluciantions recur.
--- NOTE | 2018-08-25 11:47 | BH.COMM_ITS ---
Communication Note - Communication with Client Communication Note: Client spoke briefly with this therapist via telephone to review safety plan for the weekend. CLient reports she has secured medications in a safe place and will be administered by until client stability and symptom management improves. Client indicates an ability to maintain safety of self and others. Denies auditory command hallucinations since Tuesday evening, 08/23, which were discussed with program psyhciatrist - see h/p note. Client d enies SI, plan, or intent. Denies HI. Is future oriented, reporting plans to spend time with sister vinayak and go to [email or web address] tomorrow. Client agreeable to seek emergency medical care should she feel inability to maintain safety or if auditory command halluciantions recur.
--- NOTE | 2018-08-28 09:05 | BH.SGPN.GN ---
Behaviors/Verbalizations/Mental Status: [] Pt eye contact good, casually dressed, motor activity appropriate, speech normal rate and tone, mood euthymic, constricted affect, thoughts linear and intact, no evidence of delusions or hallucinations. Reviewed client?s symptom tracker, no signs of suicidal ideation, plan, or intent as of today. Client Response/Progress/Benefit: [] Client reported over the weekend she went to [place] with her sister which was in relaxing and fun time. Client showed another positive is spending time baking with her sister for the upcoming holiday. Client reported a stressor was snapping at her daughter and last night over food. Client recognized her response did not match the situation. Client shared overall her anger and aggression has decreased since her hospitalization. Reported the incident last night was the first time since her hospitalization. Plan showing progress with spending time with positive supports in her life. Continuing to struggle with management of emotions in the moment. Continue to attend IOP to stabilize mood, decrease aggression and prevent decompensation. Narrative Note: []
--- NOTE | 2018-08-28 10:10 | BH.SGPN.GN ---
Behaviors/Verbalizations/Mental Status: [] Eye contact is good. Motor activity is appropriate. Appearance is neat. Speech is Appropriate. Mood is depressed. Affect is flat. Thoughts are linear and logical. No evidence of psychosis. Client Response/Progress/Benefit: [] Pt was an active participant in group activity however participated very little in group discussion. Provided some thoughts into the definition and benefits to social support in mental wellness. Also participated in group discussion on obstacles to seeking support. Did well during activity and was able to connect activity to social supports stating that asking questions, being specific, clarifying perspectives, and clarifying emotions are necessary when seeking support. Pt believes that social support is very helpful to her and her mental wellness most notably helping her keep her anxiety aways. Benefited from psychoeducation. Progress noted as pt was able to identify the role that support plays in recovery and some obstacles to utilizing support. Will continue in IOP to maintain safety, stabilize mood and psychosis, and prevent decompensation. Narrative Note: []
--- NOTE | 2018-08-28 11:10 | BH.SGPN.GN ---
Behaviors/Verbalizations/Mental Status: [] Eye contact is good. Motor activity is appropriate. Appearance is casual. Speech is Appropriate. Mood is anxious/irritable. Affect is congruent. Thoughts are linear and logical. Pt reported to this therapist command hallucinations telling her to leave group. Client Response/Progress/Benefit: [] Pt was attentive during group discussion and completed worksheets. Minimal participation during discussion on different types of social support such as mental health, spiritual,personal, and professional. Group discussed the importance of support in different settings. Completed worksheet regarding pt's support desired (mental health), how this support will help (make me feel less stressed), and steps to take to get this support (reach out). Pt reports that she has to work with myself not to get anxious and mean. Insight into how support can aid in keeping her calm. Progress noted as pt was able to identify the different types of support and strategies to reach out to these supports. Will continue in IOP to maintain safety, prevent decompensation, and stabilize mood. Narrative Note: []
--- NOTE | 2018-08-30 11:12 | BH.SGPN.GN ---
Behaviors/Verbalizations/Mental Status: [Client alert and oriented; however at times appearing distracted by own thoughts and disengaged, casually dressed. Eye contact fair. Motor activity appropriate. Speech within normal limits limited verbal input provided. Affect congruent, mood depressed, irritable. Thoughts linear, logical, no signs of active hallucinations or delusions content suggestive of preoccupied thought/rumination. ] Client Response/Progress/Benefit: [Client willing to attend session, taking a mostly passive participatory role at times appearing distracted by own thought. Client was able to engage with coaching and guidance from therapist. Listened as the group discuss the different categories of coping skills and the pros and cons of each, providing minimal input throughout. Client however was able to create a coping skills menu with a coping skill from each category- distraction, grounding, emotional release, self-love, and thought challenge. Client?s menu included: going for a walk, practicing 5-senses exercise, positive affirmations, and challenging negative thoughts via reminding herself ?I?m in control?. Client appeared to benefit from gaining numerous coping skills and learning the pros and cons of each coping skill category. Client to continue IOP to prevent decompensation and increase consistency of healthy coping skills.] Narrative Note: []
--- NOTE | 2018-08-30 12:48 | BH.MDN ---
Multi-Disciplinary Note - Note 30-min Individual Time Started:: 09:30 Date: 08/30/18 Purpose of session/treatment goals addressed:: Assessed current symptoms, stressors, concerns regarding mental health sx management and ability to regulate emotions. Provided education on physical warning signs for anger and discussed distress tolerance and anger management strategies. Assessed for risk. Eye Contact:: Good Motor Activity:: Restless, Other - agitated/tense Appearance:: Casual Speech:: Appropriate Mood:: Irritable, Depressed Affect:: Full Thoughts:: Linear, Logical, Other, No evidence of hallucinations/delusions noted Staff Interventions:: Asked open-ended and furthering questions to assess current symptoms, stressors, and application of healthy skills. Completed risk assessment and reinforced importance of medication compliance, completing cost/benefit analysis. Safety planned with client for the Holiday. Provided psychoeducation on Anger and aided client in identifying physical warning signs for anger. Reviewed distress tolerance and emotion regulation skills. Collaborated with program nurse and psychiatrist on CLient safety plan and related concerns. Client Response:: Client receptive of session and expressed wanting to meet with this therapist today as she reports last night was real bad. Client reports increased anger and agitation towards her daughter and last night resulting in a verbal anger outburst. Client denies becoming physically aggressive. She further processed this event with therapist and reports beliefs that her anger was justified. Client continues to struggle in managing emotions as well as preventing further escalation when feeling disrespected. Client continues to report difficulties in identifying triggers or internal warning signs prior to escalation. She indicates not knowing what she is feeling emotionally or thinking that leads to crisis escalation, noting it just happens. Client has limited insight into internal locus of control related to her emotions. She did well to connect with information discussed regarding identifying physical warning signs to prevent further escalation when noticing she is beginning to become agitated. Client displayed observable difficulties independently identifying physical warning signs, however was able to when given symptom specific questions. Client worked with therapist to identify specific healthy skills she may implement upon recognizing her warning signs. Additionally, discussed ongoing issues concerning auditory command hallucinations and reported increase in frequency of hallucinations. Denies any commands related to harming self or others, though reports voices telling her not to take any of her medications. Indicates medication non-compliance since Tuesday night, however reports taking medication this morning. Client expresses understanding of physical and mental health related risks associated with non-compliance. Worked to identify strategies for maintaining compliance. Indicates an ability to maintain safety at this time, is future oriented, completed a safety plan, as well as expressed willingness to seek [facility] if experiencing increase in intensity of voices or commands telling her to harm self/others. Agreeable to follow-up and reassess stability on Tuesday09/01/18. Risks/Concerns:: Client denies any active SI/HI at this time. Reports increased auditory command hallucinations resulting in medication noncompliance in increased mood dysregulation. Client reports not taking any medications over the past three days until this morning. She indicates awareness of the physical and mental health related risks as client has multiple medication dependant medical concerns. Reports willingness to begin taking medications more regularly and receptive of strategies to promote compliance. CLient reports an ability to maintain safety at this time, willing to complete a safety plan, and is aware of local crisis resources available. WIllingness to seek psychiatric emergency care if experiencing any increased frequency, duration, or intensity of auditory hallucinations. Concerns related to client medication and psychosis discussed with program nurse and psychiatrist who are in agreement with plan, see documentation via Nurse progress note. Will follow-up with CLient 09/01/18 and re-evaluate/assess for safety. Progress Toward Goals/Plan:: Some regression. Client reports increased difficulties with regulating her emotions, resulting in increased verbal outburst and increased irritability. CLient able to verbalize healthy calming and distress tolerance skills though struggles with implementation in the moment. Additionally reports decreased medication compliance due to issues concerning auditory command hallucinations. Client appears to experience difficulties with recognizing internal locus of control in improving her ability to cope with distress or frustrations, often focusing on external solutions. Continued IOP tx to improve anger management and distress tolerance skills, as well as to maintain safety and prevent decompensation. Time Stopped:: 09:59
--- NOTE | 2018-08-30 12:50 | BH.NET ---
Nursing Education/Training - Session Information Type of Session: Individual Medical Management:: Discussion of COPD and possible JESUS Symptom management (include medical issues as they relate to psychiatric symptoms):: Client has multiple symptoms consistent with JESUS, but has never had a polysomnogram. She notes that her difficulty falling and staying asleeping are causing her to be irritable and the fatigue is adding to her depression. Also, she notes that she has been diagnosed with COPD and uses a rescue inhaler only, which she is using an average of 3x/day. The client has never seen a data review specialist and is agreeable to do so. Other Health Issues:: Client endorses and 30# weight loss in the past 3 months which she attributes to diarrhea, noting that everything I eat comes back out within 15 minutes. She has informed her PCP, Dr. Salcedo, of this and he has ordered stool studies, which the client has not followed through on. She describes her stools as dark-colored and very foul-smelling. - Education Goal of Session:: Educate the patient about the importance of medication compliance and following through on medical issues as they often relate to psychiatric problems. Educational Materials Presented/Interventions Utilized:: verbal discussion, knowledged assessment, open-ended questions. The client was informed that her significant weight loss and stool changes are quiet concerning, and could be due to serious underlying medical conditions. The importance of daily medication compliance was stressed as the patient takes daily medications related to cardiac issues (CAD with 4 stents, HLD, HTN) and psychiatric problems, and gaps in medications can have serious complications including increased risk of stroke, repeat RI, exacerbation of hallucinations and bipolar symptoms. Client Response to Materials Presented:: Verbalized understanding regarding importance of follow-up for diarrhea and weight loss. Agreeable to appointment with Dr. Nogueira at [facility] on 10/06/18 @ 0945 as made by this RN. What specifically did the client learn?: Client was able to verbalize understanding and made a commitment to adhere to medication compliance; however, she notes that she sometimes has command hallucinations that tell her not to take her medicatons and she has poor impulse control, resulting in her not taking her medications (including insulin). She contacted to go to the ED if her symptoms worsen before Tuesday when she is to check in with her therapist in . Follow-Up Needed:: Client needs to take stool sample to Dr. Salcedo's office and attend appointment with Dr. Nogueira next month. This RN discussed with Dr. Rios on phone, who is willing to directly admit patient to [facility] inpatient psych unit on Tuesday if appropriate and willing.
--- NOTE | 2018-08-30 12:55 | BH.MDN_ITS ---
Multi-Disciplinary Note - Note 30-min Individual Time Started:: 09:30 Date: 08/30/18 Purpose of session/treatment goals addressed:: Assessed current symptoms, stressors, concerns regarding mental health sx management and ability to regulate emotions. Provided education on physical warning signs for anger and discussed distress tolerance and anger management strategies. Assessed for risk. Eye Contact:: Good Motor Activity:: Restless, Other - agitated/tense Appearance:: Casual Speech:: Appropriate Mood:: Irritable, Depressed Affect:: Full Thoughts:: Linear, Logical, Other, No evidence of hallucinations/delusions noted Staff Interventions:: Asked open-ended and furthering questions to assess current symptoms, stressors, and application of healthy skills. Completed risk assessment and reinforced importance of medication compliance, completing cos t/benefit analysis. Safety planned with client for the iday. Provided psychoeducation on Anger and aided client in identifying physical warning signs for anger. Reviewed distress tolerance and emotion regulation skills. Collaborated with program nurse and psychiatrist on CLient safety plan and related concerns. Client Response:: Client receptive of session and expressed wanting to meet with this therapist today as she reports last night was real bad. Client reports increased anger and agitation towards her daughter and last night resulting in a verbal anger outburst. Client denies becoming physically aggressive. She further processed this event with therapist and reports beliefs that her anger was justified. Client continues to struggle in managing emotions as well as preventing further escalation when feeling disrespected. Client continues to report difficulties in identifying triggers or internal warning signs prior to escalation. She indicates not knowing what she is feeling emotionally or thinking that leads to crisis escalation, noting it just happens. Client has limited insight into internal locus of control related to her emotions. She did well to connect with information discussed regarding identifying physical warning signs to prevent further escalation when noticing she is beginning to become agitated. Client displayed observable difficulties independently identifying physical warning signs, however was able to when given symptom specific questions. Client worked with therapist to identify specific healthy skills she may implement upon recognizing her warning signs. Additionally, discussed ongoing issues concerning auditory command hallucinations and reported increase in frequency of hallucinations. Denies any commands related to harming self or others, though reports voices telling her not to take any of her medications. Indicates medication non-compliance since Tuesday night, however reports taking medication this morning. Client expresses understanding of physical and mental health related risks associated with non- compliance. Worked to identify strategies for maintaining compliance. Indicates an ability to maintain safety at this time, is future oriented, completed a safety plan, as well as expressed willingness to seek immediate emergency services at closest E.R. dept if experiencing increase in intensity of voices or commands telling her to harm self/others. Agreeable to follow-up and reassess stability on Tuesday09/01/18. Risks/Concerns:: Client denies any active SI/HI at this time. Reports increased auditory command hallucinations resulting in medication noncompliance in increased mood dysregulation. Client reports not taking any medications over the past three days until this morning. She indicates awareness of the physical and mental health related risks as client has multiple medication dependant medical concerns. Reports willingness to begin taking medications more regularly and receptive of strategies to promote compliance. CLient reports an ability to maintain safety at this time, willing to complete a safety plan, and is aware of local crisis resources available. WIllingness to seek psychiatric emergency care if experiencing any increased frequency, duration, or intensity of auditory hallucinations. Concerns related to client medication and psychosis discussed with program nurse and psychiatrist who are in agreement with plan, see documentation via Nurse progress note. Will follow-up with CLient 09/01/18 and re-evaluate/assess for safety. Progress Toward Goals/Plan:: Some regression. Client reports increased difficulties with regulating her emotions, resulting in increased verbal outburst and increased irritability. CLient able to verbalize healthy calming and distress tolerance skills though struggles with implementation in the moment. Additionally reports decreased medication compliance due to issues co ncerning auditory command hallucinations. Client appears to experience difficulties with recognizing internal locus of control in improving her ability to cope with distress or frustrations, often focusing on external solutions. Continued IOP tx to improve anger management and distress tolerance skills, as well as to maintain safety and prevent decompensation. Time Stopped:: 09:59
--- NOTE | 2018-08-30 14:41 | BH.NET_ITS ---
Nursing Education/Training - Session Information Type of Session: Individual Medical Management:: Discussion of COPD and possible JESUS Symptom management (include medical issues as they relate to psychiatric symptoms):: Client has multiple symptoms consistent with JESUS, but has never had a polysomnogram. She notes that her difficulty falling and staying asleeping are causing her to be irritable and the fatigue is adding to her depression. Also, she notes that she has been diagnosed with COPD and uses a rescue inhaler only, which she is using an average of 3x/day. The client has never seen a pulverizing and sifting operator and is agreeable to do so. Other Health Issues:: Client endorses and 30# weight loss in the past 3 months which she attributes to diarrhea, noting that everything I eat comes back out within 15 minutes. She has informed her PCP, Dr. Salcedo, of this and he has ordered stool studies, which the client has not followed through on. She describes her stools as dark-colored and very foul-smelling. - Education Goal of Session:: Educate the patient about the importance of medication compliance and following through on medical issues as they often relate to psychiatric problems. Educational Materials Presented/Interventions Utilized:: verbal discussion, knowledged assessment, open-ended questions. The client was informed that her significant weight loss and stool changes are quiet concerning, and could be due to serious underlying medical conditions. The importance of daily medication compliance was stressed as the patient takes daily medications related to cardiac issues (CAD with 4 stents, HLD, HTN) and psychiatric problems, and gaps in medications can have serious complications including increased risk of stroke, repeat DE, exacerbation of hallucinations and bipolar symptoms. Client Response to Materials Presented:: Verbalized understanding regarding importance of follow-up for diarrhea and weight loss. Agreeable to appointment with Dr. Nogueira at [facility] on 10/06/18 @ 0945 as made by this RN. What specifically did the client learn?: Client was able to verbalize understand ing and made a commitment to adhere to medication compliance; however, she notes that she sometimes has command hallucinations that tell her not to take her medicatons and she has poor impulse control, resulting in her not taking her medications (including insulin). She contacted to go to the ED if her symptoms worsen before Tuesday when she is to check in with her therapist in . Follow-Up Needed:: Client needs to take stool sample to Dr. Salcedo's office and attend appointment with Dr. Nogueira next month. This RN discussed with Dr. Rios on phone, who is willing to directly admit patient to [facility] inpatient psych unit on Tuesday if appropriate and willing.
--- NOTE | 2018-08-30 15:04 | BH.NA_ITS ---
Physical Data - Vital Signs Pulse Rate: 70 Respiratory Rate: 16 Blood Pressure: 130/78 - Height/Weight Height: 1.6 m Weight:: 65.771 kg Weight in Pounds: 145.0 lbs Current Medication Compliance - Medication Compliance Do you take your medication as prescribed?: No Do you need assistance with taking medication?: Yes Nutritional History - Appetite Nutritional Instructions:: If client shows signs of a swallowing problem, weight change of 10 pounds or more in the last month, or is on a diabetic diet, the physician will review and request a dietitian consult, as appropriate. All unintentional weight loss will be referred to the physician for decision on need for dietitian consult. Describe your appetite:: Fair Have you noticed a change in your eating habits lately?: No Additional nutritional information:: 30# weight loss in 3 months without appetite change Functional Assessment - Sleep Pattern Describe any problems with sleeping: She notes difficulty falling and staying asleep. - Activities Motor Activity:: Functional Sensory/Communication Assess - Hearing Problems Do you have any hearing problems?: Adequate - Communication Problems Do you have difficulty understanding what people are saying?: No Do you have trouble putting your thoughts into words or expressing what you want to say?: Yes Do people ever have trouble understanding what you say?: No What is your primary language?: Faroese Learning Assessment - Learning Barriers Learning Barriers:: Ready to learn Medical Problems/History - Cardiac Conditions Cardiovascular: Coronary artery disease - s/p stents x4, Hypertension, Hyperlipidemia - Respiratory Conditions Respiratory: Other (See comments) - COPD - Female Reproductive Do you think you may be ?: No Suicide Assessment - Suicidal Ideation Are you currently or have you been suicidal in the past?: Yes Suicidal Intentional Rating Scale (SIRS): Current suicidal thoughts/No plan/Contracts for safety - thoughts are intermittent and she has no plan or intent Physician Notification: If Active suicidal thoughts/Will not contract for safety is checked, contact physician and document in the Physician Notification section below. Fall Risk Assessment - Age Age: 60-70 - Mental Status Mental Status: Willing & able to ask for assistance when needed - Physical Status Physical Status: No problems - Impairments Impairments: None - Elimination Elimination: Elimination with assistance, OR diarrhea, OR incontinence - Gait or Balance Gait or Balance: Walks independently - Hx of Falls History of falls in the past 6 months: No known history - Medications/Substances Psychotropics:: Antipsychotics Others:: Antihypertensives Medications/substances used within the past 24 hours or ordered to administer: 1-2 of the medications/substances listed above - Total Score Total Points:: 4 RN Summary of Impressions - Impressions Recommendations: Include psychiatric and medical issues, treatment planning recommendations, and discharge planning needs. Impressions: Psychiatric Issues: MDD w/ new psychotic features Impression: General Medical Conditions: COPD, HTN, HLD, CAD s/p 4 stents Impressions: Discharge Planning Needs: see note by this RN for about assisting client with outpatient provider - Level of Care How do the client's current symptoms and functional deficits support need for this level of care?: Client notes worsened mental health symptoms for several months. She has a long-standing history of mood instability and dysregulation, but notes that she has recently been having even more difficulty due to familial disagreements with her daughter and . She notes that she recently quit smoking, and is finding it difficult as this was a coping mechanism for her. Client describes command hallucinations that she has never had before, but is unable to link these to starting a new medication or a recent event in her life. She notes that she is noncompliant with medications and medical regimens, but has been so sick lately that I need to make changes.
--- NOTE | 2018-08-30 15:39 | BH.NOTE ---
BH: Inpatient Note - Notes Behavioral Health Inpatient Note: Case discussed with April from [facility], as client was being seen on this service prior to her hospitalization. Per April, the patient was discharged from [facility] due to high intensity of service, more than [facility] is able to provide. Case then discussed with [facility] psychiatric social worker for ideas about community senior case manager to assist client with health compliance and medication management; [facility] include [facility], and [facility] when client discharges from [facility] IOP program. Will continue to follow with client's therapist for assistance. Bernadette Thomas, BSN, RN
--- NOTE | 2018-09-01 17:06 | BH.COMM ---
Communication Note - Communication with Client Communication Note: Therapist contacted CLient to follow-up regarding concerns discussed in previous session, see multidisciplinary note dated 08/30/18. CLient notes doing well since last session and has been following safety plan. CLient denies any auditory hallucinations in past 2 days and reports medication compliance since 08/30/18. Indicates willingness to continue following safety plan as discussed on 08/30 and is willing to seek emergency care should she experience return of command auditory halluncinations. Will continue to monitor
--- NOTE | 2018-09-06 09:10 | BH.SGPN.GN ---
Behaviors/Verbalizations/Mental Status: [] Eye contact is good. Motor activity is appropriate. Appearance is casual. Speech is Appropriate. Mood is depressed. Affect is flat. Thoughts are linear and logical. No evidence of psychosis. Reviewed daily check in sheet and no reports of suicidal ideations or intent. Client Response/Progress/Benefit: [] Pt spoke only when prompted however appeared engaged and attentive AEB by frequent head nodding. Emotion for today is awesome. Shared that her daughter was recently admitted to inpatient psych unit prior to the holidays. Reports that her holiday went well and she was able to cook for 20 people and was able to manage her emotions effectively. She is looking forward to dinner and bible study with peers this evening. When asked about her depression and anxiety prior to today she states oh my depression was bad however its challenging for pt to elaborate on her emotions and feelings. Some progress noted per pt. Will continue in IOP to maintain safety, prevent decompensation, and stabilize mood. Benefited from group support and encouragement. Narrative Note: []
--- NOTE | 2018-09-06 10:06 | BH.SGPN.GN ---
Behaviors/Verbalizations/Mental Status: []Client alert and oriented, neatly dressed and groomed. Eye contact fair- on her phone at times. Motor activity appropriate. Speech within normal limits. Affect constricted, mood euthymic. Thoughts linear, logical, no signs of hallucinations or delusions. Client Response/Progress/Benefit: []Client responded well to session, quiet, but participating when prompted. Client identified benefits for setting boundaries, sharing, ?it?s important to open up to people.? Client shared there are barriers to setting boundaries such as anger, fear, and guilt. Client agreed with peers that there are different types of boundaries such as personal, emotional, and financial. Client listened as the group identified the types of boundaries (porous, rigid, flexible). Client stated each boundary type has pros and cons. Client stated her boundary setting style is rigid with her family, but flexible at IOP. Client stated her unmanaged anger impacts how client sets boundaries with her family. Client appeared to benefit from gaining insight to how boundaries impact mental health and relationships. Client to continue IOP to increase emotional regulation and reduce anger outbursts.
--- NOTE | 2018-09-06 11:05 | BH.SGPN.GN ---
Behaviors/Verbalizations/Mental Status: []Client alert and oriented, neatly dressed and groomed. Eye contact fair. Motor activity appropriate. Speech within normal limits. Affect congruent to mood, mood irritable. Thoughts linear, logical, no signs of hallucinations or delusions. Client Response/Progress/Benefit: []Client responded well to session, quiet, only vocal when prompted. Client further explored her boundary setting style and how it impacts her mental health. Client stated ?I?m mean to my family??as client is rigid and lashes out at them. Client stated she would like to manage her anger and be able to communicate with her family about her needs and feelings without getting upset. Client helped the group identify strategies to improve setting boundaries such as starting with small boundaries, managing stress, and seeking support. Client appeared to benefit from learning ways to improve boundary setting. Progress limited as client continues to struggle with lack of self-awareness and mood instability.
--- NOTE | 2018-09-07 10:17 | BH.SGPN.GN ---
Behaviors/Verbalizations/Mental Status: [Client maintained fair eye contact - at times struggled with becoming disengaged due to distracting with coloring, casually and appropriately dressed, motor activity appropriate - some fidgeting in seat, coloring speech normal rate and tone - limited input, mood euthymic, anxious, congruent affect, thoughts linear and logical, no evidence of delusions or hallucinations reported or observed.] Client Response/Progress/Benefit: [Client receptive of session, passive participant in discussion though did well to complete reflection activity. Client made connections to the input from fellow participants on factors impacting stress management and expressed agreeing that a negative or irritable mood can impact ability to manage stressors. Client shared often struggling to manage stress when mad. Benefit from increasing awareness of impact stressors have on mental health and ability to function. Client expressed current stressors to include: ?the voices?, her mental health and her daughter?s health, anger issues, finances, and medical related issues. Client progress noted in ability to identify that some ofher stressors are in her control; however, continues to struggle with stress prevention skill use as client has difficulties in identifying elzbieta signs her stress tolerance level has been reached. Continued IOP to increase ability to regulate emotions, improve use of thought challenging, and increase stress management skills.] Narrative Note: []
--- NOTE | 2018-09-07 11:16 | BH.SGPN.GN ---
Behaviors/Verbalizations/Mental Status: [Eye contact good, casually dressed, motor activity slowed, speech normal rate and tone, mood euthymic, anxious, congruent affect, thoughts linear and intact, no evidence of delusions or hallucinations.] Client Response/Progress/Benefit: [Client well engaged and active throughout session AEB contributions to discussion and collaboration. Client did well to connect with group input on barriers experienced by group in challenge activity and managing stressors in daily life. She expressed that negative thinking is her biggest barrier to managing stress in life. Benefitted from improving ability to identify what skills will be most effective in managing stress in the moment. Client reports that using the self-regulation skills such as mazes, coloring, and talking to support has improved her ability to calm self. Continues to report issues with anger escalation and prevention when stressed. Continue IOP level of care to decrease negative self-talk, increase use of healthy skills, and prevent decompensation.] Narrative Note: []
--- NOTE | 2018-09-08 09:10 | BH.SGPN.GN ---
Behaviors/Verbalizations/Mental Status: [] Eye contact is good. Motor activity is appropriate. Appearance is casual. Speech is Appropriate. Mood is depression and irritable. Affect is congruent. Thoughts are linear and logical. No evidence of psychosis. Reviewed daily check in sheet and no reports of suicidal ideations or intent. Client Response/Progress/Benefit: [] Pt spoke when prompted however was attentive during group discussions. Shared with the group argument yesterday with her . Reports that the argument was intense at times. Reports that she realized that the verbal argument was escalating and removed herself to her room to calm which she reports was the best thing I could do. Reports that her mood is better this AM. Did not share any more details and passed to next group member to check-in. Limited progress noted per pt. Moods continue to be erratic however she reports increased anger management skills. Benefited from group encouragement and support. Will continue in IOP to prevent further decompensation and to stabilize mood and hallucinations. Narrative Note: []
--- NOTE | 2018-09-08 10:20 | BH.SGPN.GN ---
Behaviors/Verbalizations/Mental Status: []Pt eye contact good, casually dressed, motor activity appropriate, speech normal rate and tone, mood euthymic, congruent affect, thoughts linear and intact, no evidence of delusions or hallucinations. Client Response/Progress/Benefit: []Pt passive participant, listened attentively to peers and contributed to discussion at times. Pt identified yelling and name calling to be a barrier to effective communication, which pt could relate to because when she is angry she will raise her voice. Pt related to others that assumptions will often lead to misinterpretations and often increased problems. Pt added her thoughts to discussion about the four different types of communication (passive, passive-aggressive, aggressive, and assertive). Pt able to identify benefits and costs to each type of communication. Pt seemed to benefit from increased awareness of the different types of communication as well as learning about benefits and costs of each style. Narrative Note: []
--- NOTE | 2018-09-08 11:25 | BH.SGPN.GN ---
Behaviors/Verbalizations/Mental Status: []Eye contact is good. Motor activity is appropriate. Appearance is casual. Speech is Appropriate. Mood is anxious. Affect is congruent. Thoughts are linear and logical. No evidence of psychosis. Client Response/Progress/Benefit: []Pt listened attentively to peers, took notes throughout session, and contributed to discussion at times. Pt reported she most often communicates either passively or aggressively. Pt stated she tends to be more aggressive with her family because more comfortable around them. Pt shared she recognizes both passive and aggressive style of communication does not help her get her needs met and the aggressive style tends to result in increased conflict and problems. When processing activity pt noted importance of paying attention to others by making eye contact so they know you are listening to them. Pt seemed to benefit from learning about different strategies that can help pt improve her way of communicating to others. Pt to continue IOP level of care to stabilize moods, increase emotional regulation and prevent decompensation. Narrative Note: []
--- NOTE | 2018-09-08 15:57 | BH.MDN_ITS ---
Multi-Disciplinary Note - Note 30-min Individual Time Started:: 09:30 Date: 09/07/18 Purpose of session/treatment goals addressed:: Purpose of session was to assess current symptoms and stressors and risk. Other topics included: anger management, healthy coping skills, and communication Eye Contact:: Good Motor Activity:: Appropriate Appearance:: Casual Speech:: Appropriate Mood:: Anxious, Dysthymic Affect:: Congruent Thoughts:: Linear, Logical, No evidence of hallucinations/delusions noted Staff Interventions:: Therapist used open ended questions to elicit current symptoms, stressors, and application of healthy regulation skills. Therapist processed client's recent stressor about increased conflict with , leading to mood dysregulation and verbal outburst. Assisted Client in reviewing anger warning signs, triggers, and calming skills. Provided psychoeducation regarding small goal setting and aided client in creating a short-term goal for anger. Discussed effective communication with supports and encouraged having a family session with and daughter. Provided homework to begin tracking daily goal progress. Client Response:: Client receptive of session and openly discussed current symptoms, stressors, and concerns. Client expressed ?last night was real bad?, indicating ongoing challenges in managing her anger as well as experiencing an influx in auditory command hallucinations over the weekend. Client described the ?voices? as increasing in frequency however denies commands telling her to harm herself. She discussed ?they tell me to go stand outside on the porch? and one incident in which they told her to ?go in the other room and punch my in the face?. Client at times appears to struggle in differentiating between auditory hallucinations and client conscience, as client indicated experiencing voice to punch in the face after he had made a remark that annoyed her. Client denies any current thoughts of harming self or others. Denies SI/HI, plan or intent. She additionally reports an ability to ignore commands a majority of the time, with one instance in which she did go and stand on the porch for approximately 30 minutes. Client indicates an ability to maintain safety and reports ongoing medication compliance since last session. Receptive of reviewing safety plan and strategies for ignoring or distracting self to prevent listening to voices when she hears them, willing to seek emergency care if unable to maintain safety of self/others at any point. Client open to discussing the impact her mood may have on ability to manage hallucinations and did well to id entify benefits of improving emotion regulation. Client worked with therapist to process recent incident in which she became verbally aggressive towards . She indicated attempting to regulate self-following escalation; however, continues to struggle in identifying warning signs of anger which impacts ability to implement preventative measures. Client able to verbalize symptoms experienced when becoming increasingly agitated but does not apply healthy coping skills in those moments. Open to setting small weekly goals for improving anger management skills. Client to begin by implementing one coping skill when recognizing warning signs of restlessness and thoughts of ?I should just bite my tongue right now?. Risks/Concerns:: Is active suicidal/homicidal ideation, plan, or intent as of this date 09/07/18. Client reports ongoing auditory command hallucinations denies commands of harming self or others at this time. Indicates ability to ignore voices and apply effective coping mechanisms to distract self and maintain safety. Client indicates an ability to maintain safety and reports ongoing medication compliance since last session. Receptive of reviewing safety plan and strategies for ignoring or distracting self to prevent listening to voices when she hears them, willing to seek emergency care if unable to maintain safety of self/others at any point. Progress Toward Goals/Plan:: Inconsistent progress. Some regression in client ability to manage symptoms of anger and mood dysregulation. Client displaying progress in ability to verbalize anger warning signs; however, continues to struggle with identification of triggers or when escalating in the moment. This continues to appear to be a barrier in client ability to apply effective coping mechanisms prior to anger escalation. Client able to apply de-escalation and calming skills following incidents of verbal outbursts. Client additionally continues to struggle with auditory command hallucinations, though reports increased ability to manage or ignore them and maintain safety. Client progress noted in ability to obtain compliant with all medications since last session. Continued IOP and focus on current treatment goals week as well as increased focus on anger management and distress tolerance skills. Time Stopped:: 09:59
[2018-09-21 15:00] VITALS: BP 130/78; PULSE 70; RESP 16
== END 2018-09-08 23:59 ==
LOC: BHIOP 08:51
PROVIDERS: Family Provider Family Medicine; PCP Family Medicine; Referring Provider Psychiatry & Neurology Psychiatry; Visit Provider Psychiatry & Neurology Psychiatry
DX: F33.3 Major depressive disorder, recurrent, severe with psychotic symptoms (principal); F41.9 Anxiety disorder, unspecified; Z72.0 Tobacco use; E11.9 Type 2 diabetes mellitus without complications; I25.10 Atherosclerotic heart disease of native coronary artery without angina pectoris; J44.9 Chronic obstructive pulmonary disease, unspecified
CPT/HCPCS: H0035; 90832; 90853

== ENCOUNTER → 2018-08-25 12:31 | Outpatient (CLI) | payer MEDICARE, SELFPAY ==
[2017-03-16 08:30] VITALS: BMI 29.2
[2018-08-25 14:12] LABS: Anion Gap 7 (5-15); BUN 11 mg/dL (7-18); BUN/Creat Ratio 11.4 RATIO (10-20); Chloride 102 mmol/L (98-107); Creatinine, Serum 0.97 mg/dL (0.55-1.02); EST Glomerular Filtration Rate 62 mL/min (>60); Est Glom Filt Rate - Afr Amer 75 mL/min (>60); Glucose 368 mg/dL (74-106); Potassium 4.2 mmol/L (3.5-5.1); Sodium Level 134 mmol/L (136-145); Thyroid Stim Hormone (TSH) 4.33 uIU/mL (0.358-3.74)
[2018-08-25 14:29] LABS: Bacteria 0 SEEN /hpf (None Seen); Mucous, Urine 0 SEEN /hpf (<or=2+); Red Blood Cells-Urine 0 SEEN /hpf (0-5)
[2018-08-25 16:01] LABS: Color, Urine Yellow (Yellow); Glucose, Dipstick 1000 mg/dl (Normal); Ketone-Dipstick 5 mg/dl (Negative); Leukocyte Esterase-Dipstick 25 /ul (Negative); Nitrite-Dipstick Negative (Negative); Occult Blood-Urine Negative /ul (Negative); Protein-Dipstick Negative (Negative); Urine Bilirubin Dipstick Negative (Negative); Urine Clarity Sl. Cloudy (Clear); Urine Urobilinogen Normal (Normal)
[2018-08-25 16:09] LABS: Absolute Lymphocyte Count 3.06 X10^3/ul (0.83-4.51); Absolute Neutrophil Count 4.7 X10^3/uL (2.0-7.7); Basophil# 0.03 X10^3/uL; Basophil% 0.3 % (0-1); Eosinophils% 4.6 % (0-5); Hematocrit 37.1 % (37-47); Hemoglobin 12.8 g/dl (12.0-15.0); Lymphocyte # 3.06 X10^3/ul (4.0); Mean Corp Hgb Conc 34.5 g/gl (32-36); Mean Corpuscular Hgb 31.5 pg (27.0-32.0); Mean Corpuscular Volume 91.4 fL (81-99); Mean Platelet Vol. 11.2 fl (6.2-12.0); Monocyte# 0.54 X10^3/uL; Monocyte% 6.2 % (0-10); Neutrophil # 4.68 X10^3/uL (2.7-7.7); Neutrophil % 53.6 % (47-70); Platelet Count 244 K/mm3 (150-450); RBC Distribution Width SD 39.6 fl (35.1-43.9); Red Blood Count 4.06 M/mm3 (4.2-5.4); White Blood Count 8.7 K/mm3 (4.4-11.0)
[2018-08-25 16:11] LABS: Hemoglobin A1c 11.2 % (4.2-6.3)
[2018-08-25 16:19] LABS: Squamous Epithelial Cells - UA 0-5 SEEN /hpf (5-10); White Blood Cells 5-10 SEEN /hpf (0-5)
[2018-08-25 16:22] LABS: Vitamin B12 400 pg/mL (211-911)
[2018-08-25 16:39] LABS: Microalbumin,Random Urine 5.7 mg/L (NO RANGE EST.); Microalbumin:Creatinine Ratio 10.1 mg/g CRE (<30 mg/g CRE)
[2018-08-25 16:40] LABS: POSITIVE COUNT NO; POSITIVE DIFFERENTIAL NO; POSITIVE MORPHOLOGY NO
[2018-08-25 16:44] LABS: ALB/GLOB Ratio 1.2 RATIO (0.9-2.4); AST(SGOT) 15 U/L (15-37); Alanine Aminotransfer ALT/SGPT 26 U/L (13-56); Albumin, Serum 3.9 g/dL (3.2-5.0); Alkaline Phosphatase 69 U/L (45-117); Anion Gap 8 (5-15); BUN 12 mg/dL (7-18); BUN/Creat Ratio 14.1 RATIO (10-20); Chloride 103 mmol/L (98-107); Cholesterol 187 mg/dL (200); Creatinine, Serum 0.85 mg/dL (0.55-1.02); EST Glomerular Filtration Rate 71 mL/min (>60); Est Glom Filt Rate - Afr Amer 86 mL/min (>60); Globulin 3.2 g/dL (2.2-4.2); Glucose 274 mg/dL (74-106); High Density Lipoprotein 51 mg/dL; Potassium 4.8 mmol/L (3.5-5.1); Protein, Total 7.1 g/dL (6.4-8.2); Sodium Level 136 mmol/L (136-145); Triglycerides 249 mg/dL; Very Low Density Lipoprotein 50 mg/dL (5-40)
[2018-08-30 19:28] LABS: Vitamin B1, Thiamine 113.2 nmol/L (66.5-200.0)
== END ==
PROVIDERS: Family Provider Family Medicine; PCP Family Medicine; Referring Provider Psychiatry & Neurology Psychiatry; Visit Provider Psychiatry & Neurology Psychiatry
DX: K52.9 Noninfective gastroenteritis and colitis, unspecified (principal); E78.5 Hyperlipidemia, unspecified; E11.40 Type 2 diabetes mellitus with diabetic neuropathy, unspecified; I10 Essential (primary) hypertension; Z72.0 Tobacco use; Z79.899 Other long term (current) drug therapy
CPT/HCPCS: 36415; 80048; 80053; 80061; 80178; 81001; 82043; 82570; 82607; 82746; 83036; 84425; 84443; 85025

== ENCOUNTER → 2018-08-30 14:06 | Outpatient (CLI) | payer MEDICARE, SELFPAY ==
[2017-03-16 08:30] VITALS: BMI 29.2
[2018-09-12 08:52] LABS: Fats, Neutral Normal (.); Fats, Total Normal (.)
== END ==
PROVIDERS: Family Provider Family Medicine; PCP Family Medicine; Visit Provider Family Medicine
DX: K52.9 Noninfective gastroenteritis and colitis, unspecified (principal)
CPT/HCPCS: 82274; 82705; 83630; 87177; 87209; 87506

== ENCOUNTER 2018-09-12 08:45 | Outpatient (RCR) | payer MEDICARE, SELFPAY ==
[2017-03-16 08:30] VITALS: BMI 29.2
[2018-09-09 01:56] VITALS: BP 130/78; PULSE 70; RESP 16
--- NOTE | 2018-09-12 09:08 | BH.SGPN.GN ---
Behaviors/Verbalizations/Mental Status: []Client alert and oriented, neatly dressed and groomed. Eye contact good. Motor activity appropriate. Speech within normal limits. Affect full-smiling, mood euthymic. Thoughts linear, logical, no signs of hallucinations or delusions. Reviewed client?s symptom tracker, no risk for suicidal ideation, plan, or intent as of 09/12/18. Client Response/Progress/Benefit: []Client responded well to session, active participant. Client reports feeling ?fantastic? today after picking up her daughter from the hospital yesterday. Client shared she and her daughter discussed ways to make their home safer for client?s daughter. Client demonstrating progress as she reported recognizing a warning sign for anger and using positive self-talk. Client stated feeling excited about this as she has struggled with recognizing warning signs and using healthy coping skills to prevent outbursts. Client continues to struggle with consistent self-awareness, as she shared later last night client became anger and kicked her dryer. Client appeared to benefit from acknowledging progress, but client can continue to improve emotional regulation skills. Client to continue IOP to prevent decompensation and increase self-awareness of warning signs.
--- NOTE | 2018-09-12 10:16 | BH.SGPN.GN ---
Behaviors/Verbalizations/Mental Status: [Eye contact fair - at times looking around room or focused on coloring, casually dressed -stained sweatshirt, motor activity appropriate, speech normal rate and tone, mood euthymic, constricted affect, thoughts linear and intact - appearing distracted, no evidence of delusions or hallucinations.] Client Response/Progress/Benefit: [Client receptive of session, passive participant as client provided limited input to conversation unless asked direct questions. Client indicated connecting with the topic of conflict resolution as she indicated struggling with managing her anger during times of potential conflict. Client benefitted from discussion regarding factors contributing to ability to manage conflict in a health way as well as impact this may have on mental health symptom management. Client identified the competing style of conflict resolution, expressing ?Oh, I?m a shark?. Client appeared to benefit from increasing insight into the differing types of conflict resolution and potential pros/cons of each. Progress noted in client's increased awareness regarding how her own approach to conflict has impacted relationships with client supports. Continue IOP to further promote application of healthy conflict resolution and anger management skills. ] Narrative Note: []
--- NOTE | 2018-09-12 11:17 | BH.SGPN.GN ---
Behaviors/Verbalizations/Mental Status: [Eye contact fair, casually dressed - stains on sweatshirt, motor activity appropriate, speech normal rate and tone, mood dysthymic, distracted, congruent affect, thoughts linear and intact, no evidence of delusions or hallucinations.] Client Response/Progress/Benefit: [Client responded well to session, more active participant AEB engaging in the challenge activity and able to reflect upon her own approaches to conflict. Client reported she struggles with avoidant or competing approaches to conflict, though struggled to identify personal approach used in group activity. Client continues to struggle in connecting the challenge activities to daily management of mental health symptoms and promoting skill use. Client was able to identify plans to use strategies from today's group to better improve her ability to approach conflict with supports so that she does not ?get mad and explode?. Client to continue IOP to increase mood stability and anger management, as well as prevent decompensation.] Narrative Note: []
--- NOTE | 2018-09-13 11:43 | BH.COMM ---
Communication Note - Communication with Client Communication Note: Spoke with pt regarding medication cost concerns for her invega rx. Collaborated with program psychiatrist to determine potentially less expensive alternatives and communicated plans for pt to meet with program nurse on next scheduled group date, 09/14/18. Pt and therapist discussed intake appointment with paulaLeighvivi which she indicates went well and noted that she will be established with an outpatient therapist and casework supervisor upon next appointment in 2 weeks. Discussed client goals for upcoming family session scheduled for tomorrow, 09/14/18, and client indicates wanting to improve communication and conflict resolution skills when encountering disagreements with her daughter.
--- NOTE | 2018-09-13 11:48 | BH.COMM_ITS ---
Communication Note - Communication with Client Communication Note: Spoke with pt regarding medication cost concerns for her invega rx. Collaborated with program psychiatrist to determine potentially less expensive alternatives and communicated plans for pt to meet with program nurse on next scheduled group date, 09/14/18. Pt and therapist discussed intake appointment with paulaLeighvivi which she indicates went well and noted that she will be established with an outpatient therapist and case sealer upon next appointment in 2 weeks. Discussed client goals for upcoming family session scheduled for tomorrow, 09/14/18, and client indicates wanting to improve communication and conflict resolution skills when encountering disagreements with her daughter.
--- NOTE | 2018-09-14 09:05 | BH.SGPN.GN ---
Behaviors/Verbalizations/Mental Status: []Client alert and oriented, neatly dressed and groomed. Eye contact good. Motor activity appropriate. Speech within normal limits. Affect constricted, mood irritable. Thoughts linear, logical, no signs of hallucinations or delusions. Reviewed client?s symptom tracker, no risk for suicidal ideation, plan, or intent as of 09/14/18. Client Response/Progress/Benefit: []Client responded well to session, engaged in discussion. Client shares feeling ?fantastic? today which was contradictory to her report of frustration over multiple stressors. Client stated her washer broke this week and that she is not coping well with it. When asked how she was managing, client stated ?bad as client has been having some anger outbursts. With further exploration, client recognized she has used some healthy coping skills such as looking at pictures from happy times in her past to manage anger in the moment. Client appeared to benefit from gentle challenging and connecting with peers. Progress noted as shown by client's increased use of healthy coping skills to manage anger in the moment. Client to continue IOP as she continues to struggle with identifying early warning signs and her emotions.
--- NOTE | 2018-09-14 10:10 | BH.SGPN.GN ---
Behaviors/Verbalizations/Mental Status: [] Client Response/Progress/Benefit: []Pt listened attentively to others and contributed thoughts and ideas to discussion at times. Pt agreed with peers need to put forth effort in order to see personal growth. Pt identified positive self-talk as an example of a positive force that can help with personal growth. Pt worked cooperatively with peers during activity. When processing activity identified using support as a positive force that helped the group be successful and connected using support can be a positive force to help her move forward. Narrative Note: []
--- NOTE | 2018-09-14 11:12 | BH.SGPN.GN ---
Behaviors/Verbalizations/Mental Status: [] Pt eye contact good, casually dressed, motor activity appropriate, speech normal rate and tone, mood euthymic, congruent affect, thoughts linear and intact, no evidence of delusions or hallucinations. Client Response/Progress/Benefit: [] Patient listened attentively to others and contributed if elicited by therapist. Client struggled with identifying positive forces however was able to identify positive for history like to improve on. Client identify those positive forces to include: Communicating more appropriately, managing emotions, and using healthy coping. Client reported her negative forces to include: Family, negative thoughts, drama with family, and unmanaged anger. Client reported she feels like her balance between forces is variable because some days she is doing well on some days she struggles with functioning. Client seemed to benefit from increased awareness of her positive and negative forces. Client to continue IOP level of care to increase mood stability, improve daily functioning, and prevent decompensation. Narrative Note: []
--- NOTE | 2018-09-14 11:41 | BH.MDN_ITS ---
Multi-Disciplinary Note - Note 30-min Individual Time Started:: 08:44 Date: 09/14/18 Purpose of session/treatment goals addressed:: Purpose of session was to assess current symptoms and stressors. Other topics included: emotional regulation, recognizing anger warning signs, and healthy coping via ?Delay, Distract, Decide?. Eye Contact:: Good Motor Activity:: Appropriate Appearance:: Neat, Casual Speech:: Appropriate Mood:: Euthymic, Anxious Affect:: Full, Congruent Thoughts:: Linear, Logical, No evidence of hallucinations/delusions noted Staff Interventions:: Therapist used open ended questions to elicit pt's current symptoms and stressors. Therapist processed pt's recent stressor about difficulties in preventing anger escalation in the moment. Commended client for applying de-escalation skills. Assisted pt with identifying warning signs for anger and discussed importance of utilizing calming skills and sharing warning signs/triggers with supports to improve ability to prevent anger escalation. Reviewed different strategies and activities pt could engage in to keep herself from escalating. Provided psychoeducation on ?fair fighting strategies? and gave homework to pt of using ?Delay, Distract, Decide? technique when noticing warning sign of her face getting red or hot. Encouraged Client to speak with daughter about rescheduling family session. Client Response:: Client originally scheduled for family session on this date, however indicated that her daughter is ill and therefore unable to attend scheduled appointment. Client willing to meet for an individual session instead. She reports I had another blow-up yesterday and went on to describe a situation in which she had been blamed by her oldest daughter for something that she had not done. Client expressed I went off on my when he told me. CLient denies using a healthy coping skill in the moment to prevent anger escalation; however, shared increased ability to de-escalate and prevent from remaining upset and angry for the remainder of the night. Client noted she was able to identify not really being angry at her but rather that he was just right there and shared later apologizing. Client attributes decreased duration of irritability to hearing positive words from her and using healthy distraction via playing yahtzee with her younger daughter. CLient continues to report difficulties in applying healthy anger management skills to prevent escalating to the point of verbal outburst. Denies following through with homework of tracking times she attempts to use a healthy skill when identifying an anger warning sign, though is displaying improvements in ability to recognize warning signs prior to escalation. Client reports consistent identification of my face gets really hot and red. She was receptive of communicating this warning sign with supports so they can help remind client to implement an identified calming skill to prevent from escalating. Client additionally open to applying the Delay, Distract, Decide approach when noticing anger warning signs or triggers. Willing to have supports ask if client needs a break to be alone or to do something different though indicates being unsure how well she is going to remember to utilize calming skills. Discussed various ways to remind herself via visual cues such as putting a reminder on the fridge and carrying her stress ball with her. Client and therapist reviewed ways to further improve communication with supports in times of agitation via fair fighting rules and client identified small goal of trying not to use curse words when angry as she indicated this increases anger in the moment and results in feelings of guilt afterwards. Client encouraged to speak with daughter about rescheduling family session and reviewing anger prevention plan discussed with supports. Risks/Concerns:: Pt denies SI, plan, or intention to date. Pt denies auditory command hallucinations for past week. She is agreeable to call crisis or go to nearest emergency room if feeling she is unable to maintain safety or experiencing command hallucinations. Pt identified her children and grandchildren as reasons to stay alive. Progress Toward Goals/Plan:: Limited progress. Client continues to report difficulties in managing emotions when experiencing triggers for anger. Client additionally denies utilizing healthy anger management and calming skills identified during times in which she recognizes warning signs for anger. Reports ongoing difficulties in managing verbal outburst in times of increased a gitation; however, indicates improved ability to de-escalate following verbal outburst or anger escalation. Client additionally indicates decrease duration of anger related symptoms and indicates ability to calm himself down rather than remaining angry for the duration of the night. Client additionally reports improve communication with her supports since daughter's return from inpatient hospitalization. Client indicates discussing concerns with supports more openly and implementing collaborative problem-solving via daily discussion rather than minimizing or allowing small stressors to build to point of crisis. Client denies experiencing any suicidal ideation or auditory command hallucinations since last session on . Reports ongoing medication compliance. We will continue to monitor. Continued IOP treatment to maintain stability and further improve application of healthy mood management skills Time Stopped:: 09:09
--- NOTE | 2018-09-14 12:25 | BH.NOTE ---
BH: Inpatient Note - Notes Behavioral Health Inpatient Note: Per telephone order from Dr. Rios, this RN called the following prescription into [facility] in [place], [place]: risperidone 4mg PO QHS #30 no refills Client is to discontinue Invega and replace with risperidone. Bernadette Thomas BSN, RN
--- NOTE | 2018-09-18 09:10 | BH.SGPN.GN ---
Behaviors/Verbalizations/Mental Status: [] Eye contact is good. Motor activity is appropriate. Appearance is casual. Speech is Appropriate. Mood is anxious. Affect is irritable. Thoughts are linear and logical. No evidence of psychosis. Reviewed daily check in sheet and no reports of suicidal ideations or intent. Client Response/Progress/Benefit: [] Pt spoke only when prompted. Emotion for today is frustrated. Shared with the group that her furnace stopped working last night. The family has some space heaters which have helped and the repairman is coming out today. Reports frustrations and some argument with family over the weekend however notes some positives as well as she spent time holiday shopping with her daughter. Also volunteered to feed the [employer] yesterday. Pt continues to struggles with verbalizing her emotions and thoughts which continues to lead to conflicts with family. Progress noted per pt report. Will continue in IOP to prevent decompensation, monitor psychosis, and encourage medication compliance. Narrative Note: []
--- NOTE | 2018-09-18 10:15 | BH.SGPN.GN ---
Behaviors/Verbalizations/Mental Status: []Client alert and oriented, casual dress. Eye contact good. Motor activity appropriate. Speech within normal limits. Affect constricted, mood irritable. Thoughts linear, logical, no signs of hallucinations or delusions. Client Response/Progress/Benefit: []Client responded well to session, quiet, but often nodding to comments made by peers. Client stated cognitive distortions are ?bad thoughts? and they can negatively impact how one views themselves and relates to others. Client listened, nodded, and contributed occasionally as the group identify the different types of cognitive distortions. Client connected with mind-reading and jumping to conclusions, stating ?I always think I know what my is thinking.? Client appeared to benefit from increasing awareness of how cognitive distortions negatively impact client?s mental health. Client to continue IOP as she continues to struggle with consistent application of internal coping skills to manage anger.
--- NOTE | 2018-09-18 11:17 | BH.SGPN.GN ---
Behaviors/Verbalizations/Mental Status: []Client alert and oriented, casual dress. Eye contact good. Motor activity appropriate. Speech within normal limits. Affect constricted, mood anxious, irritable. Thoughts linear, logical, no signs of hallucinations or delusions. Client Response/Progress/Benefit: []Client responded well to session, quiet, but participating in activity. Client engaged in group activity that demonstrated the effort it takes to challenge and change cognitive distortions. Client struggled to challenge and reframe example cognitive distortions in the group, but she was able to recognize how thoughts impact mood and behavior. Client listened as the group identified strategies to combat cognitive distortions such as having awareness, looking at the evidence, and using positive self-talk. Client appeared to benefit from learning about cognitive distortions and gaining insight to the effort it takes to reframe distortions. Client to continue IOP as she made progress recognizing warning signs for anger, but she can improve with implementing healthy coping skills to prevent outbursts.
--- NOTE | 2018-09-20 10:52 | BH.MDN_ITS ---
Multi-Disciplinary Note - Note 30-min Individual Time Started:: 09:23 Date: 09/20/18 Purpose of session/treatment goals addressed:: The purpose of this session was to address current stressors, symptoms, and application of healthy coping skills. Another goal was to create a maintenance plan to help client manage ongoing symptoms and avoid setbacks. Eye Contact:: Good Motor Activity:: Appropriate Appearance:: Neat Speech:: Appropriate Mood:: Euthymic Affect:: Full Thoughts:: Linear, Logical, No evidence of hallucinations/delusions noted Staff Interventions:: This therapist met with client as client's usual IOP therapist was out today. Therapist used open-ended questions and active listening to gather information on client's current stressors, symptoms, and use of coping skills. Therapist reviewed strategies to manage angry, auditory hallucinations, and depression. Therapist reviewed client's homework. Therapist created a maintenance plan that included coping skills, warning signs, and supports and completed it with client. Therapist used strengths perspective to empower client on personal progress. Client Response:: Client responded well to session, open to meeting with therapist. Client reported several positives including not having auditory hallucinations, putting up [place] decorations with her daughter, and plans to get her GED after discharging from [facility]. Client declined following through with the delay, distract, decide homework, but she shared she has been using self- talk to prevent anger outbursts. Client continues to struggle with consistently utilizing healthy coping skills when she recognizes warning signs. Client shared there's still days when I throw things... but then I tell myself well now you have to pick it up. Client open to creating a maintenance plan to assist client in ongoing symptom management. Client identified warning signs for anger and depression as well as healthy coping skills to use, supports, and things to avoid that may escalate client. Client also set a weekly goal to make an appointment at the [facility] to start the process of obtaining her GED. Risks/Concerns:: Client denies suicidal ideation, plan, and intent as of 09/20/18. Client denies auditory hallucinations as of 09/18/18. Client reports her continues to administer her medications as part of her safety plan. Client reports ability to maintain safety. Progress Toward Goals/Plan:: Improvements with applying healthy coping skills this week which client contributes to staying active and utilizing self-talk to prevent client from having anger-outbursts. Client shared ?I tell myself you?re the boss? you will stop and not get angry.? Client appears to be making progress with recognizing warning signs for anger, but she continues to struggle with consistently applying healthy coping skills to manage anger outbursts. Client reported she continues to ?get mouthy and throw things? on occasion, though the frequency has reduced. Reports ongoing medication compliance. Client would like to have a family session with her daughter next week before discharge. Client and therapist called [facility] to set up an intake appointment. Continued IOP treatment to maintain stability and further improve application of healthy mood management skills. Time Stopped:: 09:50
--- NOTE | 2018-09-21 09:00 | BH.SGPN.GN ---
Behaviors/Verbalizations/Mental Status: [] Eye contact is good. Motor activity is appropriate. Appearance is casual. Speech is Appropriate. Mood is depressed and irritable. Affect is congruent. Thoughts are linear and logical. Pt reports auditory hallucinations last evening. Reviewed daily check in sheet and no reports of suicidal ideations or intent. Client Response/Progress/Benefit: [] Pt participated in group discussion when prompted. Superficial feedback. Emotion for today is not to good. Continues to verbalize stressors at home however she believes that she is managing her anger more effectively than in the past. Denies talking her anger out on her support. Reports that she experiences auditory hallucination last evening telling her not to take her medications. She reports that she told the voices to shut up and continues to take her medications. No AH this morning however reports feeling irritable. Group provided support and encouragement which pt benefited from. Will continue in IOP to prevent decompensation, ensure medication compliance, and continue to increase coping skills for mood management. Narrative Note: []
--- NOTE | 2018-09-21 10:00 | BH.SGPN.GN ---
Behaviors/Verbalizations/Mental Status: [] Pt eye contact good, casually dressed, motor activity appropriate, speech normal rate and tone, mood dysthymic, constricted affect, thoughts linear and intact, no evidence of delusions or hallucinations. Client Response/Progress/Benefit: []Pt passive participant AEB pt making limited contributions to group discussion, appeared attentive to peers and taking notes. Pt contributed some of her ideas when into smaller groups for discussion about the different skills and strategies to build resilience. Pt was agreeable to her group members comments about social connections being helpful in building resilience because others can provide different perspectives. Pt seemed to benefit from learning about the different strategies to increase her ability to be resilient. Narrative Note: []
--- NOTE | 2018-09-21 11:10 | BH.SGPN.GN ---
Behaviors/Verbalizations/Mental Status: [] Pt eye contact good, casually dressed, motor activity appropriate, speech normal rate and tone, mood depressed, constricted affect, thoughts linear and intact, no evidence of delusions or hallucinations. Client Response/Progress/Benefit: []Pt engaged during group activity, listened attentively to others, and contributed to discussion if elicited by therapist. When processing activity pt identified the group was able to be resilient by communicating and listening to each other. Pt reported she has learned from session that it's important to use supports, set boundaries and focus on her goals. Pt reported on her stress ball she wrote keep things in perspective. Pt shared that phrase will help remind her she can be resilient by not catastrophizing situations. Pt seemed to benefit from engaging in activity to rehearse the different resiliency building blocks. Pt to continue IOP level of care to increase mood stability and prevent decompensation. Narrative Note: []
--- NOTE | 2018-09-25 09:05 | BH.SGPN.GN ---
Behaviors/Verbalizations/Mental Status: [Eye contact is good. Motor activity appropriate. Appearance casual, clean. Speech Appropriate. Mood euthymic. Affect is euthymic, congruent. Thoughts are linear and logical. No evidence of delusions or hallucinations. Reviewed daily check in sheet and no reports of suicidal ideations or intent.] Client Response/Progress/Benefit: [Client engaged and willing to process with group. Remained mostly quiet as others shared; however, provided supportive feedback at points throughout. Client reports emotion for today is feeling better and reflected upon working through some frustrations over the weekend. 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 Client reports that she is communicating better with her daughter and is looking forward to discussing strategies for conflict resolution in the family session scheduled from this week. Client went on to share a frustration that occurred last night when her dog took the buckeyes she had made off the counter. She initially reported dealing poorly with the incident; however benefitted from being challenged on this and discussed taking a break to calm down in her room. Client is displaying some progress in use of de-escalation and emotion regulation skills, though continued focus in this areas is needed to increase consistency. Will continue in IOP to prevent decompensation and improve anger management/emotion regulation skills.] Narrative Note: []
--- NOTE | 2018-09-25 10:15 | BH.SGPN.GN ---
Behaviors/Verbalizations/Mental Status: []Client alert and oriented, casual dress, hygiene good. Eye contact good. Motor activity appropriate. Speech within normal limits. Affect constricted, mood euthymic. Thoughts linear, logical, no signs of hallucinations or delusions. Client Response/Progress/Benefit: []Client responded well to session, quiet, but taking notes. Client connected with the quote sharing ?nobody likes change.? Client discussed the different emotions associated with change such as feeling frustrated. Client agreed that emotions can either promote or prevent change. Client discussed the stages of change and the thoughts and emotions that go with each stage. Client gave encouraging words to a peer who was attempting to quit smoking as she has been successful with this change. Client appeared to benefit from gaining insight to how emotions impact one?s response to change. Progress noted as client reports increased use of coping skills, but she can continue to implement strategies proactively.
--- NOTE | 2018-09-25 11:15 | BH.SGPN.GN ---
Behaviors/Verbalizations/Mental Status: []Client alert and oriented, casual dress, hygiene good. Eye contact good. Motor activity appropriate. Speech within normal limits. Affect congruent to mood, mood frustrated. Thoughts linear, logical, no signs of hallucinations or delusions. Client Response/Progress/Benefit: []Client responded well to session, active participant. Client reflected on the activity and the barriers of change. Client became observable frustrated during the activity due to multiple mistakes. Client has had this activity before and demonstrated progress this time in using calming skills to manage anger towards herself. Client identified times she has experienced positive change such as coming to IOP. Client reported she continues to struggle with managing her anxiety and anger and would like to increase her use of healthy coping as a positive mental health change. Client?s goal is to use her stress ball and positive self-talk throughout the day, not just when she is upset. Client appeared to benefit from creating a goal towards a positive change for her mental health. Client to continue IOP to reinforce healthy coping skills and promote mood stability.
--- NOTE | 2018-09-28 09:00 | BH.SGPN.GN ---
Behaviors/Verbalizations/Mental Status: []Client alert and oriented, neatly dressed and groomed. Eye contact good. Motor activity appropriate. Speech within normal limits. Affect congruent, mood euthymic, anxious. Thoughts linear, logical, no signs of hallucinations or delusions. Reviewed client?s symptom tracker, no risk for suicidal ideation, plan, or intent as of 09/28/18. Client Response/Progress/Benefit: []Client responded well to session, active participant. Client reports feeling ?fantastic? today as she shared having an overall positive outlook. Client?s positives for today were spending time with her daughter without fighting, plans to go to her brother?s birthday constitution party tonight, and using positive self-talk. Client reported her stressor is discharging from group tomorrow. Client stated she is worried about not having support once she leaves to program. With therapist elicitation, client acknowledged she has gained coping skills and she is also established with outpatient providers which will help her maintain stability. Client appeared to benefit from challenging anxious thoughts. Progress noted as client reports reduced intensity of emotions and mental health symptoms. Client to discharge from IOP tomorrow, but she can benefit from one more group day to reinforce healthy strategies.
--- NOTE | 2018-09-28 10:00 | BH.SGPN.GN ---
Behaviors/Verbalizations/Mental Status: [] Pt eye contact good, casually dressed, motor activity appropriate, speech normal rate and tone, mood euthymic, congruent affect, thoughts linear and intact, no evidence of delusions or hallucinations. Client Response/Progress/Benefit: []Pt passive participant AEB staying quiet throughout discussion, but taking notes throughout session. Pt appeared to connect with peers comments that goals provide purpose and direction for life AEB pt nodding her head. Pt agreed depression and anxiety can negatively impact ability to identify and follow through with goals. Pt seemed to benefit from learning about setting SMART goals. Narrative Note: []
--- NOTE | 2018-09-28 10:01 | BH.AFTERPLAN ---
Aftercare Plan - Demographics Treatment End Date:: 09/29/18 Psychiatrist:: Pilo Garibay Psychiatrist Office #:: [phone] PHP/IOP Therapist:: Helen Robles Therapist Phone #:: [phone] - Medications Home Medications: Home Medications Lisinopril [Zestril] 5 mg PO DAILY 08/17/15 Aspirin [Adult Low Dose Aspirin EC] 81 mg PO DAILY 02/04/16 Furosemide [Lasix] 40 mg PO DAILY 02/04/16 Simvastatin [Zocor] 40 mg PO QHS 01/24/17 Clopidogrel Bisulfate [Plavix] 75 mg PO DAILY 06/23/17 Metoprolol Tartrate [Lopressor (beta elder)] 25 mg PO BID 06/23/17 Nitroglycerin [Nitrostat] 0.4 mg SUBLINGUAL Q5M PRN 09/28/17 Pantoprazole Sodium [Protonix] 40 mg PO DAILY #30 tab 01/11/18 Insulin Detemir [Levemir FlexPen] 23 units SC BREAKFAST 02/18/18 Glimepiride [Amaryl] 4 mg PO DAILY #30 tab 05/31/18 Insulin Detemir [Levemir Flextouch] 26 unit SC QHS #1 insuln.pen 05/31/18 Metformin HCl 1,000 mg PO BID #60 tab 05/31/18 Cyclobenzaprine [Flexeril] 10 mg PO TID PRN #20 tablet 07/02/18 [place] Carbonate 300 mg PO BID 09/14/18 Quetiapine Fumarate [Seroquel] 100 mg PO QHS 09/14/18 Risperidone [Risperdal] 4 mg PO QHS 09/14/18 Levofloxacin [Levaquin] 750 mg PO DAILY #5 tab 09/18/18 Prednisone 10 mg PO UD #33 tab 09/18/18 - Plan Details Progress/Aftercare Plan Details:: Danielle, you have come so far and grown so much! You have learned ways to better identify when you are getting angry so that you can use the skills that you have learned to keep from blowing up and get along better with your supports. Although you are still learning how to manage your emotions, you have made a lot of progress and can continue to make improvements if you stick to it. You are not experiencing any of the voices anymore and have gone 2 full months without needing to be hospitalized and are no longer thinking about doing things that would harm yourself or the people you love. You are getting along better with your supports and are using positive self-talk on a regular basis. You have plans to get your GED and start going back to [employer] as well/ The plan is for you to keep seeing Cely at [facility] and start receiving psychiatry services from [facility]. Your appointment is 10/04 at 8:30am. Good job and good luck with everything! Strategies for Success:: 1. Keep paying attention to your warning signs for anger and depression ? remember if your face gets hot, you start thinking negative thoughts or having thoughts of hurting yourself or yelling/punching someone, or hear the voices?it?s time to use those skills! 2. Practice using your healthy coping skills: Go for walks, take a break or go to another room, use your stress ball, listen to music, and color or do the puzzles. 3. Start attending the [employer] at least 2 times per week - this will give you structure, support, and get you out of the house. 4. Continue to reach out to your sister and get out of the house to do things you enjoy - this will help to keep your mood positive and give you a little break from everyone. 4. Communicate your thoughts and feelings with support people ? but only when you?ve calmed down?it?s hard to get help from someone when we are yelling at them, take a break and BREATHE and then come back and talk about it. 5. Continue to attend [employer] and volunteer for support. 6. Remind yourself of motivations to use your skills like setting an example for MK and your grandchildren. 7. Review IOP binder for refresher of skills. - Appointments Appointments/Referrals to Other Services:: 1. Client is to continue counseling established with Cely at [facility] and is being set up with a Personal Secretary through them. 2. Client is scheduled to see psychiatry on 10/04/18 at 830am at [facility]. 3. Client will continue to receive ongoing medical care from Dr. Pereira at [place].
--- NOTE | 2018-09-28 10:15 | BH.IGGP_ITS ---
Aftercare Plan - Demographics Treatment End Date:: 09/29/18 Psychiatrist:: Pilo Garibay Psychiatrist Office #:: [phone] PHP/IOP Therapist:: Helen Robles Therapist Phone #:: [phone] - Medications Home Medications: Home Medications Lisinopril [Zestril] 5 mg PO DAILY 08/17/15 Aspirin [Adult Low Dose Aspirin EC] 81 mg PO DAILY 02/04/16 Furosemide [Lasix] 40 mg PO DAILY 02/04/16 Simvastatin [Zocor] 40 mg PO QHS 01/24/17 Clopidogrel Bisulfate [Plavix] 75 mg PO DAILY 06/23/17 Metoprolol Tartrate [Lopressor (beta elder)] 25 mg PO BID 06/23/17 Nitroglycerin [Nitrostat] 0.4 mg SUBLINGUAL Q5M PRN 09/28/17 Pantoprazole Sodium [Protonix] 40 mg PO DAILY #30 tab 01/11/18 Insulin Detemir [Levemir FlexPen] 23 units SC BREAKFAST 02/18/18 Glimepiride [Amaryl] 4 mg PO DAILY #30 tab 05/31/18 Insulin Detemir [Levemir Flextouch] 26 unit SC QHS #1 insuln.pen 05/31/18 Metformin HCl 1,000 mg PO BID #60 tab 05/31/18 Cyclobenzaprine [Flexeril] 10 mg PO TID PRN #20 tablet 07/02/18 [place] Carbonate 300 mg PO BID 09/14/18 Quetiapine Fumarate [Seroquel] 100 mg PO QHS 09/14/18 Risperidone [Risperdal] 4 mg PO QHS 09/14/18 Levofloxacin [Levaquin] 750 mg PO DAILY #5 tab 09/18/18 Prednisone 10 mg PO UD #33 tab 09/18/18 - Plan Details Progress/Aftercare Plan Details:: Danielle, you have come so far and grown so much! You have learned ways to better identify when you are getting angry so that you can use the skills that you have learned to keep from blowing up and get along better with your supports. Although you are still learning how to manage your emotions, you have made a lot of progress and can continue to make improvements if you stick to it. You are not experiencing any of the voices anymore and have gone 2 full months without needing to be hospitalized and are no longer thinking about doing things that would harm yourself or the people you love. You are getting along better with your supports and are using positive self-talk on a regular basis. You have plans to get your GED and start going back to [employer] as well/ The plan is for you to keep seeing Cely at [facility] and start receiving psychiatry services from [facility]. Your appointment is 10/04 at 8:30am. Good job and good luck with everything! Strategies for Success:: 1. Keep paying attention to your warning signs for anger and depression ? remember if your face gets hot, you start thinking negative thoughts or having thoughts of hurting yourself or yelling/punching someone, or hear the voices?it?s time to use those skills! 2. Practice using your healthy coping skills: Go for walks, take a break or go to another room, use your stress ball, listen to music, and color or do the puzzles. 3. Start attending the [employer] at least 2 times per week - this will give you structure, support, and get you out of the house. 4. Continue to reach out to your sister and get out of the house to do things you enjoy - this will help to keep your mood positive and give you a little break from everyone. 4. Communicate your thoughts and feelings with support people ? but only when you ?ve calmed down?it?s hard to get help from someone when we are yelling at them, take a break and BREATHE and then come back and talk about it. 5. Continue to attend [employer] and volunteer for support. 6. Remind yourself of motivations to use your skills like setting an example for MK and your grandchildren. 7. Review IOP binder for refresher of skills. - Appointments Appointments/Referrals to Other Services:: 1. Client is to continue counseling established with Cely at [facility] and is being set up with a Front End Ui Developer through them. 2. Client is scheduled to see psychiatry on 10/04/18 at 830am at [facility]. 3. Client will continue to receive ongoing medical care from Dr. Pereira at [place].
--- NOTE | 2018-09-28 11:10 | BH.SGPN.GN ---
Behaviors/Verbalizations/Mental Status: [] Pt eye contact good, casually dressed, motor activity appropriate, speech normal rate and tone, mood euthymic, congruent affect, thoughts linear and intact, no evidence of delusions or hallucinations. Client Response/Progress/Benefit: [] Client listened attentively to others and contributed to discussion of listed by therapist. Client struggled with coming up with a smart goal for herself of the week. With assistance from therapist client identified she will walk at least 3-4 days a week and continue to practice challenging her anger thoughts. Client reported by continuing the goal it will help her manage her anger and not have anger outbursts. Client seem to benefit from reviewing a goal she like to continue to work on and identifying ways to help her achieve identified goal. Plan is for client to discharge from IOP tomorrow given client is made significant progress on her treatment goals since starting IOP. Narrative Note: []
--- NOTE | 2018-09-28 11:23 | BH.DS ---
Discharge Summary - Demographics Date of Admission:: 08/23/18 Discharge Date: 09/29/18 Presenting Problems at Admission:: Patient is a 62-year-old female who was originally referred to the behavioral health IOP by hospital forensic social worker/ case management for evaluation and treatment of mood symptoms and anxiety. Patient's previous participation in behavioral medicine IOP was interrupted due to need for inpatient psychiatric hospitalization at [facility] August 04, 2018 through August 09, 2018. Inpatient hospitalization due to decompensation and exacerbation of symptoms related to auditory command hallucinations and failure to contract for safety. Patient reports a long-standing history of depression and irritability. At time of intake she endorses a depressed mood with crying spells, anhedonia, decreased energy, and difficulty concentrating. She has passive thoughts of not waking up or ?taking all my pills?. Client denies active plan or intent and willing to lock-up medication. Denies active SI/HI or current command hallucinations at this time. Discharge Diagnoses:: Major depressive disorder recurrent severe with psychotic features. Rule out bipolar disorder. Anxiety unspecified. Nicotine use disorder. Insulin-dependent diabetes. Coronary artery disease. COPD Reason for Discharge:: Client has made significant progress on treatment goals and no longer meets medical necessity for IOP level of care. - Treatment Progress During Treatment & Response: Client has made progress since admission with improved mood stability and increased awareness of warning signs/triggers for anger. This is evidenced by pt's scores on the DSM cross-cutting measure at discharge as well as client no longer endorsing thoughts of harming self via overdosing on medication and reports increased ability to manage auditory hallucinations by applying healthy coping skills of taking a break, squeezing her stress ball, and using positive self-talk. Client has maintained medication compliance since 08/30 and reports she has not heard any command hallucinations since 09/20. For depression scale pt scored a 0 out of 8 for depression at time of discharge, which demonstrates reduction in depressive symptoms. She additionally reports improvements I depressive symptoms and emotion regulation skills. Pt has shown increased ability to more effectively communicate with supports and apply calming skills to de-escalate rather than ?exploding? or verbally lashing out, continued work is needed in this area to increase overall consistency. Pt reports continuing to not experiencing any suicidal thoughts or urges to lash out on supports. Client responded to treatment with being engaged during group activities but contributing very little to discussion. Client struggles with applying skills and strategies learned in group, however has done well to internalize some strategies discussed and is beginning to display increased application. Issues Still to be Addressed:: Client could benefit from continued reinforcement of destress tolerance and emotion regulation skills. She often struggles with comprehending and connecting with the materials discussed and could benefit from continued reinforcement of skills learned and identifying warning signs. Client could benefit from problem solving ways to increase application of skills, specifically those related to managing her anger. Client could benefit from family therapy with her daughter given interpersonal relationships have been a trigger for increased irritability and self-harming thoughts in the past. Discharge Recommendations/Instructions:: Client is to continue counseling established with Cely at [facility] and is being set up with a Vessel Scrapper Helper through them. Client is scheduled to see psychiatry on 10/04/18 at 830am at [facility]. Client will continue to receive ongoing medical care from Dr. Pereira at [place]. Client [facility]. Discharge Handout: Complete Discharge Handout with client on aftercare options and continuity of care.
--- NOTE | 2018-09-28 13:59 | BH.DS_ITS ---
Discharge Summary - Demographics Date of Admission:: 08/23/18 Discharge Date: 09/29/18 Presenting Problems at Admission:: Patient is a 62-year-old female who was originally referred to the behavioral health IOP by hospital social secretary/ case management for evaluation and treatment of mood symptoms and anxiety. Patient's previous participation in behavioral medicine IOP was interrupted due to need for inpatient psychiatric hospitalization at [facility] August 04, 2018 through August 09, 2018. Inpatient hospitalization due to decompensation and exacerbation of symptoms related to auditory command hallucinations and failure to contract for safety. Patient reports a long- standing history of depression and irritability. At time of intake she endorses a depressed mood with crying spells, anhedonia, decreased energy, and difficulty concentrating. She has passive thoughts of not waking up or ?taking all my pills?. Client denies active plan or intent and willing to lock-up medication. Denies active SI/HI or current command hallucinations at this time. Discharge Diagnoses:: Major depressive disorder recurrent severe with psychotic features. Rule out bipolar disorder. Anxiety unspecified. Nicotine use disorder. Insulin-dependent diabetes. Coronary artery disease. COPD Reason for Discharge:: Client has made significant progress on treatment goals and no longer meets medical necessity for IOP level of care. - Treatment Progress During Treatment & Response: Client has made progress since admission with improved mood stability and increased awareness of warning signs/triggers for anger. This is evidenced by pt's scores on the DSM cross-cutting measure at discharge as well as client no longer endorsing thoughts of harming self via overdosing on medication and reports increased ability to manage auditory hallucinations by applying healthy coping skills of taking a break, squeezing her stress ball, and using positive self-talk. Client has maintained medication compliance since 08/30 and reports she has not heard any command hallucinations since 09/20. For depression scale pt scored a 0 out of 8 for depression at time of discharge, which demonstrates reduction in depressive symptoms. She additionally reports improvements I depressive symptoms and emotion regulation skills. Pt has shown increased ability to more effectively communicate with supports and apply calming skills to de-escalate rather than ?exploding? or verbally lashing out, continued work is needed in this area to increase overall consistency. Pt reports continuing to not experiencing any suicidal thoughts or urges to lash out on supports. Client responded to treatment with being engaged during group activities but contributing very little to discussion. Client struggles with applying skills and strategies learned in group, however has done well to internalize some strategies discussed and is beginning to display increased application. Issues Still to be Addressed:: Client could benefit from continued reinforcement of destress tolerance and emotion regulation skills. She often struggles with comprehending and connecting with the materials discussed and could benefit from continued reinforcement of skills learned and identifying warning signs. Client could benefit from problem solving ways to increase application of skills, specifically those related to managing her anger. Client could benefit from family therapy with her daughter given interpersonal relationships have been a trigger for increased irritability and self-harming thoughts in the past. Discharge Recommendations/Instructions:: Client is to continue counseling established with Cely at [facility] and is being set up with a [employer] through them. Client is scheduled to see psychiatry on 10/04/18 at 830am at [facility]. Client will continue to receive ongoing medical care from Dr. Pereira at [place]. [facility]. Discharge Handout: Complete Discharge Handout with client on aftercare options and continuity of care.
--- NOTE | 2018-09-28 14:07 | BH.MDN ---
Multi-Disciplinary Note - Note 30-min Individual Time Started:: 12:00 Date: 09/28/18 Purpose of session/treatment goals addressed:: Purpose of session was to review treatment progress, discuss areas for ongoing focus post-discharge, identify strategies for success, and solidify aftercare plan. Eye Contact:: Good, Other - tearful Motor Activity:: Appropriate Appearance:: Casual Speech:: Appropriate Mood:: Euthymic, Anxious Affect:: Full Thoughts:: Linear, Logical, No evidence of hallucinations/delusions noted Staff Interventions:: Therapist asked open ended questions to gather client thoughts and feelings about progress throughout IOP admission and reviewed areas of improvement in client overall symptoms management. Aided client in identifying warning signs and triggers for anger and depression and well as reviewed calming skills and emotion regulation strategies. Collaborated with Client to identify what can help maintain success post discharge and completed after care planning. Therapist provided support by using active listening and empathic responses, as well as by providing feedback. Client Response:: Client receptive of session and active participant throughout. She did well to work with therapist on reviewing overall treatment progress since returning to [facility] program on 08/23. Light indicates I am doing much better and expressed significant improvements in overall mood. Client indicates no longer experiencing passive symptoms of not wanting to be here or ending tamar daily life. She indicates improved communication with her supports and increased ability to laugh and joke with them. Client additionally reports she has not experienced any auditory hallucinations in the past week and has an improved ability to maintain stability when experiencing hallucinations. Client indicates I tell them they are not the boss. I am the boss.. Client attributes overall increased ability to manage her emotions and is beginning to display movements in ability to utilize effective coping mechanisms when beginning to identify anger warning signs. Client able to identify and review various warning signs for her anger during the session expressing my face gets red and garbage comes out of my mouth. Client willing to work with therapist on identifying strategies for maintaining success following discharge. Indicates plans to continue utilizing identified coping mechanisms of going for a walk, using her stress ball, and coloring. Additionally indicates plans to begin regular attendance at [facility] to continue to provide client with outside support. Client receptive of beginning the schizoaffective discussion group held at [facility]. Client additionally indicates plans to begin working towards obtaining her GED through services provided by the counseling center, and is planning to schedule an appointment this week. Client shared she met with her outpatient therapist, Cely at [facility], yesterday and plans to see her on a weekly basis. Scheduled for psychiatry intake appointment on 10/04 at the counseling center. Client became tearful when discussing discharge planning as she indicated she will missed the [facility] program and the support she received while admitted. Client did well to identify that although discharging from [facility] is bittersweet, it means that she has made progress and is doing better to manage overall symptoms. Client reports feeling confident she will be able to maintain success following discharge if she sticks to her aftercare plan as discussed. Risks/Concerns:: Client does not present any risks or concerns at this time. Denies suicidal thoughts, plan or intention to date, 09/28/18. Denies active command hallucinations or HI. Indicates ongoing medication compliance as of 08/30. Progress Toward Goals/Plan:: Client has demonstrated progress with decreased depression, decreased frequency and intensity of auditory hallucinations, and improved mood stability. Client has shown significant progress with managing times in which she is experiencing auditory hallucinations and is actively applying thought challenging and positive self-talk during these moments. She is additionally reporting increased healthy communication with supports. Plan is for client to discharge from [facility] level of care and follow-up with outpatient individual services due to no longer meeting medical necessity. Time Stopped:: 12:21
--- NOTE | 2018-09-28 14:36 | BH.MDN_ITS ---
Multi-Disciplinary Note - Note 30-min Individual Time Started:: 12:00 Date: 09/28/18 Purpose of session/treatment goals addressed:: Purpose of session was to review treatment progress, discuss areas for ongoing focus post-discharge, identify strategies for success, and solidify aftercare plan. Eye Contact:: Good, Other - tearful Motor Activity:: Appropriate Appearance:: Casual Speech:: Appropriate Mood:: Euthymic, Anxious Affect:: Full Thoughts:: Linear, Logical, No evidence of hallucinations/delusions noted Staff Interventions:: Therapist asked open ended questions to gather client thoughts and feelings about progress throughout IOP admission and reviewed areas of improvement in client overall symptoms management. Aided client in identifying warning signs and triggers for anger and depression and well as reviewed calming skills and emotion regulation strategies. Collaborated with Client to identify what can help maintain success post discharge and completed after care planning. Therapist provided support by using active listening and empathic responses, as well as by providing feedback. Client Response:: Client receptive of session and active participant throughout. She did well to work with therapist on reviewing overall treatment progress since returning to [facility] program on 08/23. Light indicates I am doing much better and expressed significant improvements in overall mood. Client indicates no longer experiencing passive symptoms of not wanting to be here or ending tamar daily life. She indicates improved communication with her supports and increased ability to laugh and joke with them. Client additionally reports she has not experienced any auditory hallucinations in the past week and has an improved ability to maintain stability when experiencing hallucinations. Client indicates I tell them they are not the boss. I am the boss.. Client attributes overall increased ability to manage her emotions and is beginning to display movements in ability to utilize effective coping mechanisms when beginning to identify anger warning signs. Client able to identify and review various warning signs for her anger during the session expressing my face gets red and garbage comes out of my mouth. Client willing to work with therapist on identifying strategies for maintaining success following discharge. Indicates plans to continue utilizing identified coping mechanisms of going for a walk, using her stress ball, and coloring. Additionally indicates plans to begin regular attendance at [employer] [place] to continue to provide client with outside support. Client receptive of beginning the schizoaffective discussion group held at [facility]. Client additionally indicates plans to begin working towards obtaining her GED through services provided by the counseling center, and is planning to schedule an appointment this week. Client shared she met with her outpatient therapist, Cely at [facility], yesterday and plans to see her on a weekly basis. Scheduled for psychiatry intake appointment on 10/04 at the counseling center. Client became tearful when discussing discharge planning as she indicated she will missed the [facility] program and the support she received while admitted. Client did well to identify that although discharging from [facility] is bittersweet, it means that she has made progress and is doing better to manage overall symptoms. Client reports feeling confident she will be able to maintain success following discharge if she sticks to her aftercare plan as discussed. Risks/Concerns:: Client does not present any risks or concerns at this time. Denies suicidal thoughts, plan or intention to date, 09/28/18. Denies active command hallucinations or HI. Indicates ongoing medication compliance as of 08/30. Progress Toward Goals/Plan:: Client has demonstrated progress with decreased depression, decreased frequency and intensity of auditory hallucinations, and improved mood stability. Client has shown significant progress with managing times in which she is experiencing auditory hallucinations and is actively applying thought challenging and positive self-talk during these moments. She is additionally reporting increased healthy communication with supports. Plan is for client to discharge from [facility] level of care and follow-up with outpatient individual services due to no longer meeting medical necessity. Time Stopped:: 12:21
--- NOTE | 2018-09-29 09:02 | BH.SGPN.GN ---
Behaviors/Verbalizations/Mental Status: [] Pt eye contact good, casually dressed, motor activity appropriate, speech normal rate and tone, mood anxious, congruent affect, thoughts linear and intact, no evidence of delusions or hallucinations. Reviewed client?s symptom tracker, no signs of suicidal ideation, plan, or intent as of today. Client Response/Progress/Benefit: [] Client listened attentively to others and share her thoughts and feelings. Client reported positive this morning was her cooking breakfast for her. Client shared a stressor is discharging from [facility] today. Client expressed anxiety and sadness related to discharging from the program because she is grown to enjoy being around others. Client recognizes she has made a lot of progress with mood stability and decreased anger since starting the program. Client seem to benefit from reflecting on progress and support from peers. Plan is for client to discharge from [facility] level care today. Narrative Note: []
--- NOTE | 2018-09-29 10:12 | BH.SGPN.GN ---
Behaviors/Verbalizations/Mental Status: [Client alert and oriented. Appearance is casual -clean, appropriate grooming. Eye contact good. Motor activity appropriate. Speech within normal limits. Affect full, bright. mood euthymic. Thoughts linear, logical, no signs of hallucinations or delusions.] Client Response/Progress/Benefit: [Client was an active participant in group activity though struggled to connect with the discussion as client appeared distracted by own thoughts. Able to make some connections in group discussion on how failure can impact mental health AEB client expressing failure ?makes me feel bad?, additionally indicated connecting with fellow participants reflections on how fear of failure can lead to poor coping. Client noted agreement and nodded along in group discussion on how failure can instead be viewed as an opportunity, and a potential learning experience. Client benefited by being able to challenge herself to face fear of failure in the activity and displayed progress in willingness to try completing the task despite the risk of failure. Client is displaying improved ability to manage emotions during times of setback which was evidenced by not becoming upset in activity when making a mistake. Give client progress in program she is to discharge from [facility] on this date. ] Narrative Note: []
--- NOTE | 2018-09-29 11:09 | BH.SGPN.GN ---
Behaviors/Verbalizations/Mental Status: [Client alert and oriented. Appearance is casual. Eye contact fair. Motor activity appropriate. Speech within normal limits. Affect congruent, bright. mood anxious, euthymic. Thoughts linear, logical, no signs of hallucinations or delusions.]] Client Response/Progress/Benefit: [Client attentive throughout the discussion and provided input as well as joking throughout. She nodded along as fellow participants discussed how barriers in group activity relate to personal barriers in overcoming fear of failure. With assistance, Client was willing to complete reflection worksheet aimed at identifying how fear of failure is currently holding her back as well as barriers in overcoming this. Indicated she currently fears failing at not getting mad at her supports. Client able to identify current barriers to overcoming this fear include: not recognizing warning signs, struggling to use healthy skills, and falling back into unhealthy means of emotional release such as yelling at supports. Benefitted from working with group to identify strategies for overcoming barriers and indicated: positive self-talk, squeezing her stress ball, and taking breaks. Progress in client ability to identify healthy strategies. Client to discharge from [facility] on this date and is recommended ongoing individual outpatient care to continue to make progress as well as maintain gains made.] Narrative Note: []
== END 2018-10-09 23:59 ==
LOC: BHIOP 08:45
PROVIDERS: Family Provider Family Medicine; PCP Family Medicine; Referring Provider Psychiatry & Neurology Psychiatry; Visit Provider Psychiatry & Neurology Psychiatry
DX: F33.3 Major depressive disorder, recurrent, severe with psychotic symptoms (principal); F41.9 Anxiety disorder, unspecified; Z72.0 Tobacco use; E11.9 Type 2 diabetes mellitus without complications; I25.10 Atherosclerotic heart disease of native coronary artery without angina pectoris; J44.9 Chronic obstructive pulmonary disease, unspecified
CPT/HCPCS: H0035; 90832; 90853

== ENCOUNTER 2018-09-15 16:14 | Emergency (ER) | payer MEDICARE, SELFPAY ==
[2017-03-16 08:30] VITALS: BMI 29.2
[2018-09-15 16:15] VITALS: BP 166/88; PULSE 100; RESP 18; TEMP 36.9; O2SAT 97; BMI 25.9
--- NOTE | 2018-09-15 16:37 | RAD_ITS ---
STUDY: X-RAY CHEST REASON FOR EXAM: Female, 63 years old. Chest pain. TECHNIQUE: Single frontal view of the chest. COMPARISON: August 09, 2018 FINDINGS: There is stable low volume inspiration. There is no demonstrated pleural abnormality. There is borderline cardiomegaly unchanged. A stent is noted and is unchanged. Normal mediastinum and jovan. Normal visualized pulmonary arteries. There is atherosclerotic calcification of the aortic arch with tortuosity. Normal visualized thoracic spine. Normal visualized ribs, clavicles, and shoulders. There is no demonstrated abnormality of the visualized soft tissue structures of the upper abdomen. RAD/Chest 1 View (Portable) IMPRESSION: Stable borderline cardiomegaly with low volume inspiration. No new or acute finding. Electronically Signed: Bacilio Romano MD at 17:21 EST , Service support ,
--- NOTE | 2018-09-15 16:37 | EKG12_ITS ---
Test Reason : CHEST PAIN Blood Pressure : / mmHG Vent. Rate : 097 BPM Atrial Rate : 097 BPM P-R Int : 142 ms QRS Dur : 078 ms QT Int : 374 ms P-R-T Axes : 043 042 034 degrees QTc Int : 474 ms Normal sinus rhythm Nonspecific ST abnormality Abnormal ECG Confirmed by ADRIAN BARFIELD, DAVID ([id number]), editor news ARON HASKINS ([id number]) on 09/18/2018 1:58:59 PM Referred By: JAGUAR Confirmed By:DAVID CAMPBELL MD
--- NOTE | 2018-09-15 16:41 | ED.DCSUM_ITS ---
- ER Visit Summary Date of Service: 09/15/18 Chief Complaint: Chest pain History of Present Illness: The patient is a 63 F presenting with chest pain. Patient states this started approximately 1 hour prior to arrival. She was upset with her daughter. She states her daughter told her lies about he r. She was thinking about this and started having chest pain. She has associated nausea and shortness of breath. She denies lightheadedness or syncope. Denies vomiting or diaphoresis. She has multiple risk factors including hypertension, diabetes, hyperlipidemia, previous smoking, family history of early heart disease. She has previous stents. She had a stress test in March of this year which was normal. Physical Examination: Vitals are stable. Patient is afebrile. Alert no acute distress. HEENT exam is unremarkable. Neck is supple. Lungs are clear and equal bilaterally. Heart is regular rate and rhythm. Abdomen is soft nontender nondistended. Extremities are unremarkable. Skin is warm and dry. No focal neurologic deficit. Remainder of exam is unremarkable. Emergency Department Course and Treatment: Patient was given aspirin, fentanyl. EKG is sinus rate of 97. CBC unremarkable. D-dimer is elevated at 0.62. CTA chest shows bibasilar groundglass opacities. Differential considerations include infectious, inflammatory, neoplastic etiologies. Patient states she has an upcoming appointment with pulmonology. She will discuss these findings with pulmonology. Chest x-ray shows cardiomegaly, no acute process. Chemistries show BUN 20, glucose 594. Troponin is negative. She was given insulin subcutaneously. Repeat BGT 310, 187. Repeat troponin is negative. Patient feels much improved on reevaluation and would like to go home. She is advised to follow up with her primary care physician. Advised return to ED if worsening complaints. Disposition: Discharge home Impression: Atypical chest pain This note was generated with [employer] dictation software. It may contain incorrect words, spelling, and punctuation that were not noted in review of the chart prior to signing ED Disposition - Plan for ED Patient: Chief Complaint: Chest Pain Instructions: ED Chest Pain Atypical Unkn Cause Referrals: Monster Salcedo MD [Primary Care Provider] -
[2018-09-15] MEDS: Aspirin 81 MG TAB.CHEW 324 MG PO (16:49)
[2018-09-15] MEDS: Ondansetron 4 MG/2 ML Vial IV (16:52)
[2018-09-15] MEDS: fentaNYL 100 MCG/2 ML Ampul 50 MCG IV (16:52)
[2018-09-15 17:14] LABS: Absolute Lymphocyte Count 2.77 X10^3/ul (0.83-4.51); Absolute Neutrophil Count 4.1 X10^3/uL (2.0-7.7); Basophil# 0.02 X10^3/uL; Basophil% 0.3 % (0-1); Eosinophil# 0.22 X10^3/uL; Eosinophils% 2.9 % (0-5); Hematocrit 36.8 % (37-47); Hemoglobin 12.5 g/dl (12.0-15.0); Lymphocyte # 2.77 X10^3/ul (4.0); Lymphocyte % 36.3 % (19-41); Mean Corpuscular Hgb 30.9 pg (27.0-32.0); Mean Corpuscular Volume 90.9 fL (81-99); Mean Platelet Vol. 10.8 fl (6.2-12.0); Monocyte# 0.49 X10^3/uL; Monocyte% 6.4 % (0-10); Neutrophil # 4.11 X10^3/uL (2.7-7.7); Neutrophil % 53.8 % (47-70); Platelet Count 258 K/mm3 (150-450); RBC Distribution Width CV 12.6 % (11.6-14.6); RBC Distribution Width SD 41.8 fl (35.1-43.9); Red Blood Count 4.05 M/mm3 (4.2-5.4); White Blood Count 7.6 K/mm3 (4.4-11.0)
[2018-09-15 17:16] LABS: POSITIVE COUNT NO; POSITIVE DIFFERENTIAL NO; POSITIVE MORPHOLOGY NO
[2018-09-15 17:44] LABS: D-Dimer Quantitative (DVT/PE) 0.62 FEU/ug/m (0.27-0.49)
--- NOTE | 2018-09-15 17:50 | CT_ITS ---
STUDY: CTA CHEST REASON FOR EXAM: Female, 63 years old. Shortness of breath RADIATION DOSAGE (If Supplied By Facility): CTDIvol = ( 12.49 ) mGy, DLP = ( 535.26 ) mGycm TECHNIQUE: The examination was performed with the intravenous administration of 75ML ml of Isovue 370 contrast material. Post-processing of the angiographic images was performed, with multiplanar reformation and 3D reconstruction. Individualized dose optimization techniques were used for this CT. COMPARISON: Chest x-ray September 15, 2018 and CTA chest June 30, 2015 FINDINGS: Normal enhancement of the main pulmonary artery and right and left pulmonary arteries. Normal enhancement of the bilateral peripheral pulmonary arteries. There is no demonstrated pulmonary embolism. Normal thoracic aorta and visualized great vessels. There is no demonstrated aortic dissection. Normal heart and pericardium. Coronary artery stent in LAD. Normal mediastinum. Normal hilar regions. Normal visualized trachea and bronchi. Bibasilar groundglass opacities. Normal pulmonary parenchyma. Normal pleura. Normal chest wall structures. Normal osseous structures. Normal visualized upper abdomen. CT/CTA Chest W/WO Contrast IMPRESSION: Bibasilar groundglass opacities. Differential considerations include infectious, inflammatory, neoplastic etiologies. Electronically Signed: Norris Brice MD at 19:14 EST , Service support ,
[2018-09-15 18:02] LABS: Anion Gap 11 (5-15); BUN 20 mg/dL (7-18); BUN/Creat Ratio 21.2 RATIO (10-20); Calcium,Total 8.2 mg/dL (8.5-10.1); Chloride 101 mmol/L (98-107); Creatinine, Serum 0.94 mg/dL (0.55-1.02); EST Glomerular Filtration Rate 63 mL/min (>60); Est Glom Filt Rate - Afr Amer 77 mL/min (>60); Estimated Creatinine Clearance 49.36 ml/min; Glucose 594 mg/dL (74-106); Potassium 3.9 mmol/L (3.5-5.1); Sodium Level 135 mmol/L (136-145)
--- NOTE | 2018-09-15 18:02 | ED.RN ---
dr. hdez aware of critical lab result of glucose 594.
[2018-09-15] MEDS: Insulin Lispro 100 UNIT/ML INSULN.PEN 15 UNIT SC (18:10)
[2018-09-15 18:37] VITALS: BP 143/70; PULSE 74; RESP 14; O2SAT 99
[2018-09-15 18:46] LABS: Bedside Glucose > 500 mg/dL (70-110)
[2018-09-15] MEDS: 0.9% Normal Saline 1,000 ML 999 ML IV (19:00)
[2018-09-15 19:41] LABS: Bedside Glucose 310 mg/dL (70-110)
[2018-09-15 20:56] VITALS: BP 147/68; PULSE 84; RESP 22; O2SAT 98
[2018-09-15 21:01] LABS: Bedside Glucose 187 mg/dL (70-110)
--- NOTE | 2018-09-15 21:41 | ED.DEP ---
ED Disposition - Plan for ED Patient: Chief Complaint: Chest Pain Instructions: ED Chest Pain Atypical Unkn Cause Referrals: Monster Salcedo MD [Primary Care Provider] -
[2018-09-15 21:51] VITALS: BP 134/79; PULSE 82; RESP 20; O2SAT 96
--- NOTE | 2018-09-15 21:52 | ED.RN ---
THIS NURSE REVIEWED D/C INSTRUCTIONS WITH PT. PT VERBALIZED UNDERSTANDING OF INSTRUCTIONS. IV D/C. IV CATHETER INTACT. PT TOLERATED WELL. PT DENIES FURTHER NEEDS OR QUESTIONS AT THIS TIME. PT AMBULATES FROM ROOM ON OWN WITHOUT ASSISTANCE FROMWilton ZAMORA
== END 2018-09-15 21:53 | disposition home or self-care (01) ==
LOC: ED 17:08
PROVIDERS: Emergency Provider Emergency Medicine; Family Provider Family Medicine; PCP Family Medicine
DX: R07.89 Other chest pain (principal); R11.0 Nausea; R06.00 Dyspnea, unspecified; R79.89 Other specified abnormal findings of blood chemistry; I25.10 Atherosclerotic heart disease of native coronary artery without angina pectoris; J44.9 Chronic obstructive pulmonary disease, unspecified; K21.9 Gastro-esophageal reflux disease without esophagitis; E11.9 Type 2 diabetes mellitus without complications; I10 Essential (primary) hypertension; E78.00 Pure hypercholesterolemia, unspecified; Z95.5 Presence of coronary angioplasty implant and graft; Z79.4 Long term (current) use of insulin; Z79.84 Long term (current) use of oral hypoglycemic drugs; Z79.899 Other long term (current) drug therapy; Z87.891 Personal history of nicotine dependence
CPT/HCPCS: 71045; 71275; 80048; 82962; 84484; 85025; 85379; 93005; 96361; 96372; 96374; 96375; 99285; J7030; Q9967; A4216; J2405

== ENCOUNTER 2018-09-18 16:13 | Emergency (ER) | payer MEDICARE, SELFPAY ==
[2017-03-16 08:30] VITALS: BMI 29.2
[2018-09-18 16:14] VITALS: BP 161/77; PULSE 93; RESP 16; TEMP 36.4; O2SAT 100; BMI 27.3
[2018-09-18 16:38] VITALS: O2SAT 96
--- NOTE | 2018-09-18 17:02 | EKG12_ITS ---
Test Reason : CHEST OTHER Blood Pressure : / mmHG Vent. Rate : 086 BPM Atrial Rate : 086 BPM P-R Int : 150 ms QRS Dur : 078 ms QT Int : 390 ms P-R-T Axes : 056 033 024 degrees QTc Int : 466 ms Normal sinus rhythm Normal ECG Confirmed by ADRIAN BARFIELD, DAVID ([id number]), purchase request editor ARON HASKINS ([id number]) on 09/22/2018 10:43:13 AM Referred By: BB Confirmed By:DAVID CAMPBELL MD
--- NOTE | 2018-09-18 17:03 | ED.VIS.GEN ---
History of Present Illness Chief Complaint: Chest Other Informant: Patient Onset: Days - 3 Context: Gradual Onset - without injury, lifting, or back muscle overuse just prior to onset Timing: Continuous Quality: pain Location: bilat mid-back only Current Severity: Severe Maximum Severity: Severe Worsened by: breathing, moving Relieved by: remaining still and breathing easy Associated Symptoms: unchanged chronic cough. nonproductive. no chest pain/discomfort or fever. Narrative: Patient seen here 3 days ago, on the same day as the onset of the discomfort, and had a workup that included CT angiography of the chest that was negative for PE, states she has the same symptoms and the discomfort severity is worse. She denies any new symptoms. She states my lungs hurt but has no discomfort in her chest, only her back when she takes a deep breath, it is also much worse to move. States she has an appointment with a hand mexican food maker for the first time but has not seen them yet. - Past Medical History (1) Benign essential hypertension Status: Chronic (2) COPD (chronic obstructive pulmonary disease) Status: Chronic Comment: cont smoking (3) Coronary artery disease Status: Chronic Comment: ROMEL LAD 01/21 (4) GERD (gastroesophageal reflux disease) Status: Chronic (5) Hyperlipidemia Status: Chronic (6) Type 2 diabetes mellitus Status: Chronic Past Medical History - Allergies and Home Meds Allergies/Adverse Reactions: Allergies Penicillins Allergy (Verified 09/18/18 16:40) Hives morphine Adverse Reaction (Mild, Verified 09/18/18 16:40) Itching hydrocodone bitartrate [From Vicodin] Adverse Reaction (Verified 09/18/18 16:40) Vomiting ibuprofen Adverse Reaction (Verified 09/18/18 16:40) Vomiting Primary Care Physician: Monster Salcedo MD [Primary Care Provider] - Surgical History: angioplasty, cholecystectomy, hysterectomy, - - LAD PCI/ROMEL-02/08/[address] [facility], stent placement at [facility] 03/15/17 along with percutaneous balloon angioplasty Smoking Status: Current every day smoker - Family History Maternal Family History: Reports: Heart Disease Paternal Family History: Reports: Heart Disease Sibling Family History: Reports: Heart Disease Review of Systems All systems negative except as indicated General: Denies: Chills, Fever, Sweats Eyes: Denies: Visual changes - bilaterally, Diplopia ENT: Denies: Rhinorrhea, Sore throat Cardiovascular: Denies: Chest pain, Palpitations Respiratory: Reports: Dyspnea - when having pain, Cough. Denies: Sputum, Dyspnea on exertion, Orthopnea Gastrointestinal: Denies: Abdominal pain, Nausea, Vomiting, Diarrhea, Melena, Hematochezia Genitourinary: Denies: Dysuria, Hematuria, Frequency Musculoskeletal: Reports: Back pain. Denies: Neck pain, Swelling, Extremity Pain Skin: Denies: Rash, Abscess, Wounds Neurological: Denies: Headache, Weakness, Numbness Physical Exam Vital Signs/Narrative: Vital Signs Temp Pulse Resp BP Pulse Ox 09/18/18 16:14 97.6 F L 93 16 161/77 H 100 Inital Vital Signs reviewed: Yes General: Well nourished, Well developed Head: Normocephalic, Atraumatic Eyes: Perrl, EOMI ENT: Moist mucous membranes, No rhinorrhea Neck: Supple, Nontender Cardiovascular: Regular rate, Regular rhythm, No murmurs Respiratory: No distress, CTA bilaterally, Chest nontender, Diminished - throughout, equal bilaterally, - - +splinting due to back pain on deep inspiration Abdomen: Soft, Nontender, Nondistended, Normal bowel sounds Back: Normal Inspection. Negative for: Nontender - + tender mid-thoracic bilat paraspinal areas; no rash, no midline tenderness. in area of lower lung zones, but very tender in back musculature w/ superficial palpation. Extremities: Nontender - no calf tenderness, No edema Skin: Normal color, No rash Neurological: Alert, Oriented x3, Cranial nerves II-XII grossly intact, Normal Strength, Normal Sensation Psychological: - - anxious Diagnostic/Tx/Re-eval Impressions Chest X-Ray 09/18/18 17:30 IMPRESSION: No acute cardiopulmonary pathology Electronically Signed: Walker Vale MD at 18:00 EST , Service support , 09/18/18 17:30 Chest PA and Lateral [RAD] Stat Laboratory Results 09/18/18 09/18/18 17:25 17:25 WBC 7.5 RBC 4.35 Hgb 13.6 Hct 39.0 MCV 89.7 MCH 31.3 MCHC 34.9 RDW 12.4 RDW Differential 39.8 Plt Count 247 MPV 11.2 Immature Gran % (Auto) 0.400 Neut % (Auto) 52.6 Lymph % (Auto) 37.2 Dunn % (Auto) 6.8 Eos % (Auto) 2.5 Baso % (Auto) 0.5 Absolute Neuts (auto) 4.0 Absolute Lymphs (auto) 2.80 Total Counted Not Reportable Sodium 137 Potassium 3.9 Chloride 99 Carbon Dioxide 28.0 Anion Gap 10 BUN 16 Creatinine 0.98 Estim Creat Clear Calc 47.34 Est GFR (MDRD) Af Amer 74 Est GFR (MDRD) Non-Af 61 BUN/Creatinine Ratio 16.4 Glucose 349 H Calcium 9.6 Troponin I < 0.015 - Medical Decision Making Patient feels better after pain control. Her chest x-ray is normal, labs are also normal, she has no leukocytosis or left shift, her troponin is negative, I think she is stable to go home. My concern is that the findings of groundglass opacities in the bases on her CT from 2 days ago. She does not have symptoms of a COPD exacerbation, however differential includes infectious etiologies, as well as inflammatory ones. Unknown if this is interstitial lung disease or airspace disease. I think it would be reasonable to treat her with an antibiotic and prednisone until she follows up with pulmonology, which is about 2 weeks away. She is comfortable with that plan. Also prescribed a short course of some analgesic. ED Disposition - Plan for ED Patient: Disposition: Home or Assisted Living Chief Complaint: Chest Other Diagnosis: COPD (chronic obstructive pulmonary disease), Pneumonitis Instructions: Treatment for COPD Prescriptions: Oxycodone HCl/Acetaminophen [Percocet 5/325] 1 tab PO Q6H PRN PRN 2 Days #8 tab PRN Reason: Pain Levofloxacin [Levaquin] 750 mg PO DAILY #5 tab Prednisone 10 mg PO UD #33 tab Referrals: Monster Salcedo MD [Primary Care Provider] - hand mexican food maker, your [Other] (as scheduled)
--- NOTE | 2018-09-18 17:07 | ED.DCSUM_ITS ---
History of Present Illness Chief Complaint: Chest Other Informant: Patient Onset: Days - 3 Context: Gradual Onset - without injury, lifting, or back muscle overuse just prior to onset Timing: Continuous Quality: pain Location: bilat mid-back only Current Severity: Severe Maximum Severity: Severe Worsened by: breathing, moving Relieved by: remaining still and breathing easy Associated Symptoms: unchanged chronic cough. nonproductive. no chest pain/discomfort or fever. Narrative: Patient seen here 3 days ago, on the same day as the onset of the discomfort, and had a workup that included CT angiography of the chest that was negative for PE, states she has the same symptoms and the discomfort severity is worse. She denies any new symptoms. She states my lungs hurt but has no discomfort in her chest, only her back when she takes a deep breath, it is also much worse to move. States she has an appointment with a matrix bath operator for the first time but has not seen them yet. - Past Medical History (1) Benign essential hypertension Status: Chronic (2) COPD (chronic obstructive pulmonary disease) Status: Chronic Comment: cont smoking (3) Coronary artery disease Status: Chronic Comment: ROMEL LAD 01/21 (4) GERD (gastroesophageal reflux disease) Status: Chronic (5) Hyperlipidemia Status: Chronic (6) Type 2 diabetes mellitus Status: Chronic Past Medical History - Allergies and Home Meds Allergies/Adverse Reactions: Allergies Penicillins Allergy (Verified 09/18/18 16:40) Hives morphine Adverse Reaction (Mild, Verified 09/18/18 16:40) Itching hydrocodone bitartrate [From Vicodin] Adverse Reaction (Verified 09/18/18 16:40) Vomiting ibuprofen Adverse Reaction (Verified 09/18/18 16:40) Vomiting Primary Care Physician: Monster Salcedo MD [Primary Care Provider] - Surgical History: angioplasty, cholecystectomy, hysterectomy, - - LAD PCI/ROMEL- 02/08/2014 at [facility], stent placement at [facility] 03/15/17 along with percutaneous balloon angioplasty Smoking Status: Current every day smoker - Family History Maternal Family History: Reports: Heart Disease Paternal Family History: Reports: Heart Disease Sibling Family History: Reports: Heart Disease Review of Systems All systems negative except as indicated General: Denies: Chills, Fever, Sweats Eyes: Denies: Visual changes - bilaterally, Diplopia ENT: Denies: Rhinorrhea, Sore throat Cardiovascular: Denies: Chest pain, Palpitations Respiratory: Reports: Dyspnea - when having pain, Cough. Denies: Sputum, Dyspnea on exertion, Orthopnea Gastrointestinal: Denies: Abdominal pain, Nausea, Vomiting, Diarrhea, Melena, Hematochezia Genitourinary: Denies: Dysuria, Hematuria, Frequency Musculoskeletal: Reports: Back pain. Denies: Neck pain, Swelling, Extremity Pain Skin: Denies: Rash, Abscess, Wounds Neurological: Denies: Headache, Weakness, Numbness Physical Exam Vital Signs/Narrative: Vital Signs Temp Pulse Resp BP Pulse Ox 09/18/18 16:14 97.6 F L 93 16 161/77 H 100 Inital Vital Signs reviewed: Yes General: Well nourished, Well developed Head: Normocephalic, Atraumatic Eyes: Perrl, EOMI ENT: Moist mucous membranes, No rhinorrhea Neck: Supple, Nontender Cardiovascular: Regular rate, Regular rhythm, No murmurs Respiratory: No distress, CTA bilaterally, Chest nontender, Diminished - throughout, equal bilaterally, - - +splinting due to back pain on deep inspiration Abdomen: Soft, Nontender, Nondistended, Normal bowel sounds Back: Normal Inspection. Negative for: Nontender - + tender mid-thoracic bilat paraspinal areas; no rash, no midline tenderness. in area of lower lung zones, but very tender in back musculature w/ superficial palpation. Extremities: Nontender - no calf tenderness, No edema Skin: Normal color, No rash Neurological: Alert, Oriented x3, Cranial nerves II-XII grossly intact, Normal Strength, Normal Sensation Psychological: - - anxious Diagnostic/Tx/Re-eval Impressions Chest X-Ray 09/18/18 17:30 IMPRESSION: No acute cardiopulmonary pathology Electronically Signed: Walker Vale MD at 18:00 EST , Service support , 09/18/18 17:30 Chest PA and Lateral [RAD] Stat Laboratory Results 09/18/18 09/18/18 17:25 17:25 WBC 7.5 RBC 4.35 Hgb 13.6 Hct 39.0 MCV 89.7 MCH 31.3 MCHC 34.9 RDW 12.4 RDW Differential 39.8 Plt Count 247 MPV 11.2 Immature Gran % (Auto) 0.400 Neut % (Auto) 52.6 Lymph % (Auto) 37.2 Early % (Auto) 6.8 Eos % (Auto) 2.5 Baso % (Auto) 0.5 Absolute Neuts (auto) 4.0 Absolute Lymphs (auto) 2.80 Total Counted Not Reportable Sodium 137 Potassium 3.9 Chloride 99 Carbon Dioxide 28.0 Anion Gap 10 BUN 16 Creatinine 0.98 Estim Creat Clear Calc 47.34 Est GFR (MDRD) Af Amer 74 Est GFR (MDRD) Non-Af 61 BUN/Creatinine Ratio 16.4 Glucose 349 H Calcium 9.6 Troponin I < 0.015 - Medical Decision Making Patient feels better after pain control. Her chest x-ray is normal, labs are also normal, she has no leukocytosis or left shift, her troponin is negative, I think she is stable to go home. My concern is that the findings of groundglass opacities in the bases on her CT from 2 days ago. She does not have symptoms of a COPD exacerbation, however differential includes infectious etiologies, as well as inflammatory ones. Unknown if this is interstitial lung disease or airspace disease. I think it would be reasonable to treat her with an antibiotic and prednisone until she follows up with pulmonology, which is about 2 weeks away. She is comfortable with that plan. Also prescribed a short course of some analgesic. ED Disposition - Plan for ED Patient: Disposition: Home or Assisted Living Chief Complaint: Chest Other Diagnosis: COPD (chronic obstructive pulmonary disease), Pneumonitis Instructions: Treatment for COPD Prescriptions: Oxycodone HCl/Acetaminophen [Percocet 5/325] 1 tab PO Q6H PRN PRN 2 Days #8 tab PRN Reason: Pain Levofloxacin [Levaquin] 750 mg PO DAILY #5 tab Prednisone 10 mg PO UD #33 tab Referrals: Monster Salcedo MD [Primary Care Provider] - matrix bath operator, your [Other] (as scheduled)
[2018-09-18] MEDS: fentaNYL 100 MCG/2 ML Ampul 50 MCG IV (17:22)
[2018-09-18] MEDS: Ketorolac 15 MG/ML Vial IV (17:22)
--- NOTE | 2018-09-18 17:30 | RAD_ITS ---
STUDY: X-RAY CHEST REASON FOR EXAM: Female, 63 years old. Short of breath and chest pain TECHNIQUE: PA and lateral COMPARISON: September 15, 2018 FINDINGS: Lungs are clear and well expanded.. There is no demonstrated pleural abnormality. Normal size heart. Normal mediastinum and jovan. Normal visualized pulmonary arteries. Normal visualized aortic arch and descending thoracic aorta. Normal visualized thoracic spine. Normal visualized ribs, clavicles, and shoulders. There is no demonstrated abnormality of the visualized soft tissue structures of the upper abdomen. Improved aeration in the lower lobes since prior study RAD/Chest PA and Lateral IMPRESSION: No acute cardiopulmonary pathology Electronically Signed: Walker Vale MD at 18:00 EST , Service support ,
[2018-09-18 17:49] LABS: Basophil# 0.04 X10^3/uL; Basophil% 0.5 % (0-1); Eosinophil# 0.19 X10^3/uL; Eosinophils% 2.5 % (0-5); Hemoglobin 13.6 g/dl (12.0-15.0); Lymphocyte % 37.2 % (19-41); Mean Corp Hgb Conc 34.9 g/gl (32-36); Mean Corpuscular Hgb 31.3 pg (27.0-32.0); Mean Corpuscular Volume 89.7 fL (81-99); Mean Platelet Vol. 11.2 fl (6.2-12.0); Monocyte# 0.51 X10^3/uL; Monocyte% 6.8 % (0-10); Neutrophil # 3.96 X10^3/uL (2.7-7.7); Neutrophil % 52.6 % (47-70); Platelet Count 247 K/mm3 (150-450); RBC Distribution Width CV 12.4 % (11.6-14.6); RBC Distribution Width SD 39.8 fl (35.1-43.9); Red Blood Count 4.35 M/mm3 (4.2-5.4); White Blood Count 7.5 K/mm3 (4.4-11.0)
[2018-09-18 18:04] LABS: POSITIVE COUNT NO; POSITIVE DIFFERENTIAL NO; POSITIVE MORPHOLOGY NO
[2018-09-18 18:33] LABS: Anion Gap 10 (5-15); BUN 16 mg/dL (7-18); BUN/Creat Ratio 16.4 RATIO (10-20); Calcium,Total 9.6 mg/dL (8.5-10.1); Chloride 99 mmol/L (98-107); Creatinine, Serum 0.98 mg/dL (0.55-1.02); EST Glomerular Filtration Rate 61 mL/min (>60); Est Glom Filt Rate - Afr Amer 74 mL/min (>60); Estimated Creatinine Clearance 47.34 ml/min; Glucose 349 mg/dL (74-106); Potassium 3.9 mmol/L (3.5-5.1); Sodium Level 137 mmol/L (136-145)
[2018-09-18] MEDS: MethylPREDNISolone 125 MG/2 ML Vial IV (19:03)
[2018-09-18 19:04] VITALS: BP 120/71; PULSE 85; RESP 20; O2SAT 96
--- OUTSIDE RECORDS SUMMARY | 2018-11-05 02:14 | XMS RPT_ITS ---
:1955 Author Organization [place] Support Name Relationship Address Phone MARY KAY ACEVEDO Unavailable [address] + [place] [address] R Unavailable Unavailable Unavailable PRITESH MARY Unavailable [address] + [place] [address] MARY KAY ACEVEDO Unavailable [address] + [place] [address] R Unavailable Unavailable Unavailable PRITESH MARY Unavailable [address] + [place] [address] MARY KAY ACEVEDO Unavailable [address] + [place] [address] R Unavailable Unavailable Unavailable PRITESH MARY Unavailable [address] + [place] [address] MARY KAY ACEVEDO Unavailable [address] + [place] [address] R Unavailable Unavailable Unavailable PRITESH MARY Unavailable [address] + [place] [address] MARY KAY ACEVEDO Unavailable [address] + [place] [address] R Unavailable Unavailable Unavailable PIRTESH MARY Unavailable [address] + [place] [address] MARY KAY ACEVEDO Unavailable [address] + [place] [address] R Unavailable Unavailable Unavailable PRITESH MARY Unavailable [address] + [place] [address] QUANG PRIETO Unavailable [address] [facility] + [place] [address] SAILAJA RODRIGUEZORAH Unavailable Unavailable + R Unavailable Unavailable Unavailable IDA QUANG Unavailable [address] + [place] [address] D Unavailable Unavailable Unavailable MICHAEL LAURE Unavailable Unavailable + PRIETO, QUANG Unavailable [address] + [place] [address] D Unavailable Unavailable Unavailable MICHAEL LAURE Unavailable Unavailable + PRIETO, QUANG Unavailable [address] + [place] [address] D Unavailable Unavailable Unavailable MICHAEL LAURE Unavailable Unavailable + IDA QUANG Unavailable [address] + [place] [address] D Unavailable Unavailable Unavailable MICAHEL LAURE Unavailable Unavailable + IDA QUANG Unavailable [address] + [place] [address] D Unavailable Unavailable Unavailable MICHAEL LAURE Unavailable Unavailable + IDA QUANG Unavailable [address] + [place] [address] D Unavailable Unavailable Unavailable MICHAEL LAURE Unavailable Unavailable + IDA QUANG Unavailable [address] + [place] [address] D Unavailable Unavailable Unavailable MICHAEL LAURE Unavailable Unavailable + PRIETO, QUANG Unavailable [address] + [place] [address] D Unavailable Unavailable Unavailable MICHAEL LAURE Unavailable Unavailable + PRIETO, QUANG Unavailable [address] + [place] [address] D Unavailable Unavailable Unavailable MICHAEL LAURE Unavailable Unavailable + PRIETO, QUANG Unavailable [address] + [place] [address] D Unavailable Unavailable Unavailable LAURE RODRIGUEZ Unavailable Unavailable + PRIETO, QUANG Unavailable [address] + [place] [address] D Unavailable Unavailable Unavailable PURNPIA, SONY Unavailable Unavailable + [place] [address] PRIETO, QUANG Unavailable [address] + [place] [address] D Unavailable Unavailable Unavailable PURNPIA, SONY Unavailable Unavailable + [place] [address] PRIETO, QUANG Unavailable [address] + [place] [address] D Unavailable Unavailable Unavailable PURNPIA, SONY Unavailable Unavailable + [place] [address] PRIETO, QUANG Unavailable [address] + [place] [address] D Unavailable Unavailable Unavailable PURNPIA, SONY Unavailable Unavailable + [place] [address] IDA QUANG Unavailable [address] + [place] [address] D Unavailable Unavailable Unavailable PURNPIA, SONY Unavailable Unavailable + [place] [address] IDA QUANG Unavailable [address] + [place] [address] D Unavailable Unavailable Unavailable PURNPIA, SONY Unavailable Unavailable + [place] [address] PRIETO, QUANG Unavailable [address] + [place] [address] D Unavailable Unavailable Unavailable PURNPIA, SONY Unavailable Unavailable + [place] [address] PRIETO, QUANG Unavailable [address] + [place] [address] D Unavailable Unavailable Unavailable PURNPIA, SONY Unavailable Unavailable + [place] [address] PRIETO, QUANG Unavailable [address] + [place] [address] D Unavailable Unavailable Unavailable PURNPIA, SONY Unavailable Unavailable + [place] [address] PRIETO, QUANG Unavailable [address] + [place] [address] D Unavailable Unavailable Unavailable PURNPIA, SONY Unavailable Unavailable + [place] [address] PRIETO, QUANG Unavailable [address] + [place] [address] D Unavailable Unavailable Unavailable PURNPIA, SONY Unavailable Unavailable + [place] [address] PRIETO, QUANG Unavailable [address] + [place] [address] D Unavailable Unavailable Unavailable PURNPIA, SONY Unavailable Unavailable + [place] [address] PRIETO, QUANG Unavailable [address] + [place] [address] D Unavailable Unavailable Unavailable PURNPIA, SONY Unavailable Unavailable + [place] [address] PRIETO, QUANG Unavailable [address] + [place] [address] D Unavailable Unavailable Unavailable PURNPIA, SONY Unavailable Unavailable + [place] [address] PRIETO, QUANG Unavailable [address] + [place] [address] D Unavailable Unavailable Unavailable PURNPIA, SONY Unavailable Unavailable + [place] [address] PRIETO, QUANG Unavailable [address] + [place] [address] D Unavailable Unavailable Unavailable PURNPIA, SONY Unavailable Unavailable + [place] [address] PRIETO, QUANG Unavailable [address] + [place] [address] D Unavailable Unavailable Unavailable PURNPIA, SONY Unavailable Unavailable + [place] [address] PRIETO, QUANG Unavailable [address] + [place] [address] D Unavailable Unavailable Unavailable PURNPIA, SONY Unavailable Unavailable + [place] [address] QUANG PRIETO Unavailable [address] [facility] [address] + [place] [address] D Unavailable Unavailable Unavailable PURNPIA, SONY Unavailable Unavailable + [place] [address] D Unavailable Unavailable Unavailable MARY KAY ACEVEDO Unavailable [address] + [place] [address] PRITESH MARY Unavailable [address] + [place] [address] D Unavailable Unavailable Unavailable MARY KAY ACEVEDO Unavailable [address] + [place] [address] PRITESH MARY Unavailable [address] + [place] [address] D Unavailable Unavailable Unavailable MARY KAY ACEVEDO Unavailable [address] + [place] [address] PRITESH MARY Unavailable [address] + [place] [address] D Unavailable Unavailable Unavailable MARY KAY ACEVEDO Unavailable [address] + [place] [address] PRITESH MARY Unavailable [address] + [place] [address] D Unavailable Unavailable Unavailable MARY KAY ACEVEDO Unavailable [address] + [place] [address] PRITESH MARY Unavailable [address] + [place] [address] D Unavailable Unavailable Unavailable MARY KAY ACEVEDO Unavailable [address] + [place] [address] PRITESH MARY Unavailable [address] + [place] [address] PRITESH MARY Unavailable Unavailable + PRITESH MARY Unavailable Unavailable + D Unavailable Unavailable Unavailable MARY KAY ACEVEDO Unavailable [address] + [place] [address] PRITESH MARY Unavailable [address] + [place] [address] D Unavailable Unavailable Unavailable MARY KAY ACEVEDO Unavailable [address] + [place] [address] PRITESH MARY Unavailable [address] + [place] [address] D Unavailable Unavailable Unavailable MARY KAY ACEVEDO Unavailable [address] + [place] [address] PRITESH MARY Unavailable [address] + [place] [address] D Unavailable Unavailable Unavailable MARY KAY ACEVEDO Unavailable [address] + [place] [address] PRITESH MARY Unavailable [address] + [place] [address] D Unavailable Unavailable Unavailable MARY KAY ACEVEDO Unavailable [address] + [place] [address] PRITESH MARY Unavailable [address] + [place] [address] D Unavailable Unavailable Unavailable MARY KAY ACEVEDO Unavailable [address] + [place] [address] PRITESH MARY Unavailable [address] + [place] [address] D Unavailable Unavailable Unavailable MARY KAY ACEVEDO Unavailable [address] + [place] [address] PRITESH MARY Unavailable [address] + [place] [address] D Unavailable Unavailable Unavailable MARY KAY ACEVEDO Unavailable [address] + [place] [address] PRITESH MARY Unavailable [address] + [place] [address] Care Team Providers Name Role Phone Gato Salcedo Primary Care Unavailable CEZAR HOFFMAN Attending Unavailable Gato Salcedo Primary Care Unavailable Harsh Alexis Admitting Unavailable Parker Loya Attending Unavailable Selvin Vega Primary Care Unavailable Sammy Pedraza Attending Unavailable Swihart CORPORATE ADMINISTRATIVE ASSISTANT, Selvin Primary Care Unavailable Cholo Scott Attending Unavailable Swihart CORPORATE ADMINISTRATIVE ASSISTANT, Selvin Primary Care Unavailable Paintsil, [place] Admitting Unavailable Jozen, Parker Attending Unavailable Agyepong, Harsh Admitting Unavailable Agyepong, Harsh Attending Unavailable Schinner, Gato E Primary Care Unavailable Agyepong, Harsh Consulting Unavailable Agyepong, Harsh Admitting Unavailable Jopperi, Parker Attending Unavailable Schinner, Gato E Primary Care Unavailable Jopperi, Parker Consulting Unavailable Agyepong, Harsh Admitting Unavailable Schinner, Gato E Primary Care Unavailable Jopperi, Parker Consulting Unavailable Jopperi, Parker Attending Unavailable CIANCONE, GERMAIN Attending Unavailable CIANCONE, GERMAIN Referring Unavailable Schinner, Gato E Primary Care Unavailable Kiran Fitzgerald Attending Unavailable Jocristinaeri Parker Referring Unavailable Paintsil, [place] Admitting Unavailable Swihart CORPORATE ADMINISTRATIVE ASSISTANT, Selvin Primary Care Unavailable Paintsil, [place] Consulting Unavailable Paintsil, [place] Attending Unavailable Parker Loya Attending Unavailable Swihart CORPORATE ADMINISTRATIVE ASSISTANT, Selvin Primary Care Unavailable Walker Ross Attending Unavailable Swihart CORPORATE ADMINISTRATIVE ASSISTANT, Selvin Primary Care Unavailable Rene Franco Attending Unavailable Swihart CORPORATE ADMINISTRATIVE ASSISTANT, Selvin Primary Care Unavailable Rene Franco Attending Unavailable Swihart CORPORATE ADMINISTRATIVE ASSISTANT, Selvin Primary Care Unavailable Kiran Quiñonez Admitting Unavailable SemenJo Ann nogueira Attending Unavailable Kiran Quiñonez Attending Unavailable Swihart CORPORATE ADMINISTRATIVE ASSISTANT, Selvin Primary Care Unavailable Kiran Quiñonez Admitting Unavailable Sementi, Jo Ann Attending Unavailable Swihart CORPORATE ADMINISTRATIVE ASSISTANT, Selvin Primary Care Unavailable Sementi, Jo Ann Consulting Unavailable Kiran Quiñonez Admitting Unavailable Semenjero, Jo Ann Attending Unavailable Swihart CORPORATE ADMINISTRATIVE ASSISTANT, Selvin Primary Care Unavailable Sementi, Jo Ann Consulting Unavailable Charlie Hernandez Attending Unavailable Kiran Quiñonez Referring Unavailable Swihart CORPORATE ADMINISTRATIVE ASSISTANT, Selvin Primary Care Unavailable Sina Lagos Attending Unavailable Swihart CORPORATE ADMINISTRATIVE ASSISTANT, Selvin Primary Care Unavailable Sangita Issa Admitting Unavailable Sangita Issa Attending Unavailable Swihart CORPORATE ADMINISTRATIVE ASSISTANT, Selvin Primary Care Unavailable Juarez Brody Attending Unavailable Sangita Issa Attending Unavailable Buck Naylor Attending Unavailable Swihart CORPORATE ADMINISTRATIVE ASSISTANT, Selvin Primary Care Unavailable Sammy Pedraza Attending Unavailable Sam Quesada Attending Unavailable Swihart CORPORATE ADMINISTRATIVE ASSISTANT, Selvin Primary Care Unavailable Sam Miller Attending Unavailable Kiran Fitzgerald Attending Unavailable Sangita Issa Referring Unavailable Swihart CORPORATE ADMINISTRATIVE ASSISTANT, Selvin Primary Care Unavailable Sammy Pedraza Attending Unavailable Swihart CORPORATE ADMINISTRATIVE ASSISTANT, Selvin Primary Care Unavailable [facility], Sandeep Admitting Unavailable Orlando Silva Consulting Unavailable Espinoza Pate Attending Unavailable [facility], Sandeep Admitting Unavailable [facility], Sandeep Attending Unavailable Swihart CORPORATE ADMINISTRATIVE ASSISTANT, Selvin Primary Care Unavailable [facility], Sandeep Consulting Unavailable [facility], Sandeep Admitting Unavailable Swihart CORPORATE ADMINISTRATIVE ASSISTANT, Selvin Primary Care Unavailable Ricardo Orlando Consulting Unavailable Espinoza aPte Attending Unavailable Espinoza Pate Consulting Unavailable Swihart CORPORATE ADMINISTRATIVE ASSISTANT, Selvin Primary Care Unavailable Sujata Cabrales Attending Unavailable Ran Medina Attending Unavailable Wilfrido, Sandeep Referring Unavailable Swihart CORPORATE ADMINISTRATIVE ASSISTANT, Selvin Attending Unavailable Swihart CORPORATE ADMINISTRATIVE ASSISTANT, Selvin Primary Care Unavailable Charlie Hernandez Attending Unavailable [facility], Sandeep Referring Unavailable Swihart CORPORATE ADMINISTRATIVE ASSISTANT, Selvin Primary Care Unavailable Sujata Cabrales Attending Unavailable GERMAIN WHITE Attending Unavailable Swihart CORPORATE ADMINISTRATIVE ASSISTANT, Selvin Primary Care Unavailable GERMAIN WHITE Attending Unavailable BROCKONE GERMAIN Referring Unavailable Swihart CORPORATE ADMINISTRATIVE ASSISTANT, Selvin Primary Care Unavailable Swihart CORPORATE ADMINISTRATIVE ASSISTANT, Selvin Primary Care Unavailable Parker Moulton Attending Unavailable Mesfin Patel Attending Unavailable Schinner, Gato E Primary Care Unavailable Schinner, Gato E Primary Care Unavailable Parker [place]oul[place] Attending Unavailable Schinner, Gato E Primary Care Unavailable Sam Sargent Attending Unavailable BROCKONEGERMAIN Attending Unavailable USAMANCONE GERMAIN Referring Unavailable Schinner, Gato E Primary Care Unavailable Schinner, Gato E Attending Unavailable Schinner, Gato E Referring Unavailable Schinner, Gato E Primary Care Unavailable USAMANCONE GERMAIN Attending Unavailable CIANCONE, GERMAIN Referring Unavailable Schinner, Gato E Primary Care Unavailable Schinner, Gato E Attending Unavailable Schinner, Gato E Primary Care Unavailable CHRISTOPHER GERMAIN Attending Unavailable USAMANCONE, GERMAIN Referring Unavailable Schinner, Gato E Primary Care Unavailable Schinner, Gato E Primary Care Unavailable Darlin Chavarria Attending Unavailable YAMILET FOUNTAIN Attending Unavailable SWIHART PRODUCTION PAINTER, SELVIN L Primary Care Unavailable CIANCONE, GERMAIN ARNOLD Admitting Unavailable GERARDO CHRISTOPHER Consulting Unavailable DENISSE ECHOLS Attending Unavailable GERMAIN WHITE Admitting Unavailable Walker Blancas Primary Care Unavailable GERARDO CHRISTOPHER Consulting Unavailable DENISSE ECHOLS Attending Unavailable PROBLEMS PROBLEMS DATE TYPE CONDITION / CODE ATTENDING STATUS SOURCE 10/10/2018 Unknown 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, 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, Community recurrent, severe Hospital with psychotic Repository symptoms / F33.3(ICD-10) 09/18/2018 Unknown J18.9 - Pneumonia, [place], Active [place] unspecified organism CEZAR Community / J18.9(ICD-10) Hospital Repository 09/08/2018 Unknown K52.9 - Noninfective CIANCONE, GERMAIN Active [place] gastroenteritis and Community colitis, unspecified Hospital / K52.9(ICD-10) Repository 08/16/2018 Unknown R68.81 - Early Gato Salcedo Active [place] satiety / E Community R68.81(ICD-10) Hospital Repository 08/04/2018 Active Major depressive ONESIMO, Active Gutiérrez disorder, single [facility] Clinic Other episode, unspecified [place] / F32.9(ICD-10) Repository 08/04/2018 Admitting Unknown / ONESIMO, Active [place] [facility] diagnosis UNK(Unknown) [facility] Health System Repository 07/21/2018 Unknown Z79.899 - Other long CIANCONE, GERMAIN Active [place] term (current) drug Community therapy / Hospital Z79.899(ICD-10) Repository 07/07/2018 Unknown I25.10 - [place], [place] Active [place] Atherosclerotic Community heart disease of [facility] [place] coronary Repository artery without angina pectoris / I25.10(ICD-10) 07/07/2018 Unknown I10 - Essential Mary, [place] Active [place] (primary) Community hypertension / Hospital I10(ICD-10) Repository 07/07/2018 Unknown R06.00 - Dyspnea, Mary, [place] Active [place] unspecified / Community R06.00(ICD-10) Hospital Repository 07/07/2018 Unknown I25.2 - Old Mary, Charlie Active [place] myocardial Community infarction / Hospital I25.2(ICD-10) Repository 05/26/2018 Unknown M54.9 - Dorsalgia, Rubén, Active [place] unspecified / [facility] Community M54.9(ICD-10) Hospital Repository 04/24/2018 Unknown E16.2 - Juarez Brody Active [place] Hypoglycemia, Community unspecified / Hospital E16.2(ICD-10) Repository 05/08/2018 Unknown R07.9 - Chest pain, [place], Active [place] unspecified / [facility] R07.9(ICD-10) Hospital Repository 05/08/2018 Unknown R07.89 - Other chest [place], Active [place] pain / [facility] R07.89(ICD-10) Hospital Repository PROCEDURES PROCEDURES No Procedure Records FoundRESULTS RESULTS 12 LEAD ELECTROCARDIOGRAM Observed: 10/09/2018 Status: F Source: [place] 1:13 PM [facility] REPOSITORY [facility] Cardiovascular Services [address] [place] [address] 12 Lead EKG 10/04/18 190 MR#: [id number] Acct: [id number] Name: SOFÍA MARY Rep #: [id number] : 1955 63 From: Kiran Fitzgerald MD Attending Dr: Parker Loya DO Status: DIS WU Ordering Dr: Kyra Reese MD Date: 10/04/18 Location: [facility] Sex: F C Admitted: 10/05/18 Test Reason : HYPERGLYCEMIA Blood Pressure : / mmHG Vent. Rate : 080 BPM Atrial Rate : 080 BPM P-R Int : 160 ms QRS Dur : 078 ms QT Int : 398 ms P-R-T Axes : 046 024 007 degrees QTc Int : 459 ms Normal sinus rhythm Normal ECG Confirmed by HENRY BARFIELD, KIRAN ([id number]), web content editor ELI HASKINS ([id number]) on 10/09/2018 1:12:40 PM Referred By: ANCELMO Confirmed By:KIRAN FITZGERALD MD 10/09/18 1312 Date Kiran Fitzgerald MD CC: Parker Loya DO; Gato Salcedo MD; Kyra Reese MD Signed DISCHARGE SUMMARY Observed: 10/06/2018 Status: F Source: [place] 4:24 PM [facility] REPOSITORY [facility] Medical Records Department [address] [place] [address] Discharge Summary 10/06/18 1544 MR#: [id number] Acct: [id number] Name: SOFÍA MARY Rep #: [id number] : 1955 63 From: Taran GARDUNO PCP: Gato Salcedo MD Status: DIS WU Y Location: [place] [address]-1 <Taran Lujan - Last Filed: 10/06/18 15:44> Discharge Date and Diagnosis - Problem List Patient Problems: Active and Suspected Problems Acute hyperglycemia (Acute) Date of Admission: 10/04/18 Date of Discharge: 10/06/18 - Primary Discharge Diagnosis Active and Suspected Problems DMt2 with hyperglycemia, nonketotic. CVA (cerebral vascular accident) (Acute) - ruled out Hx tobacco abuse, depression, HF, GERD, CAD, COPD - Secondary Discharge Diagnosis Chronic Problems GERD (gastroesophageal reflux disease) (Chronic) Uncontrolled type 2 diabetes mellitus (Chronic) Benign essential hypertension (Chronic) Type 2 diabetes mellitus (Chronic) Hyperlipidemia (Chronic) Coronary artery disease (Chronic) ROMEL LAD 01/21 COPD (chronic obstructive pulmonary disease) (Chronic) cont smoking Tobacco abuse (Chronic) NSTEMI (non-ST elevated myocardial infarction) (Chronic) Hospital Course and Treatment Imaging Results: RAD/Chest 1 View (Portable) IMPRESSION: No acute pulmonary pathology of the chest. CT/Brain/Head without Contrast IMPRESSION: Normal unenhanced CT scan of the brain. MRI/Brain W/WO Contrast IMPRESSION: Normal unenhanced and enhanced MRI of the brain. Echo: Interpretation Summary Left ventricular systolic function is normal. The estimated ejection fraction is 65 %. Anterior leaflet diffuse mitral valve thickening. Mild focal mitral valve calcification of the anterior leaflet. Trivial mitral valve insufficiency. Trivial tricuspid valve insufficiency. Mild diffuse aortic valve calcification. Mild (1+) aortic valve insufficiency. Right ventricular systolic pressure estimated to be 24 mmHg. No evidence for diastolic dysfunction. EEG: Impression: Normal electroencephalogram Consults: Neuro - Silva Operations: None Procedures: Electroencephalogram Summary of Care Provided: Hospital course: The patient is a 63 year old F with past medical history as above who presented to the emergency room after feeling lightheaded and with a blood sugar reading of high. She came to the emergency room and her blood sugar was in the 500s however she had a negative ketone level, hyponatremia. She was admitted for nonketotic hyperglycemia given extra short acting insulin. She was then resumed on her home oral anti-glycemic's and insulin which provided adequate control of her blood sugar, providing spell suspicious that she was not using her medications as prescribed at home. Her blood sugars had improved significantly by the following day and she was planned to be discharged, however after being told that she could go home, she developed acute onset of left-sided weakness and difficulty speaking. Stroke alert was called. CT of the brain was negative. Neurology was consulted, per neuro her symptoms were distractible on exam. An MRI was obtained which did not show a stroke. Telemetry was negative. By the following morning her symptoms had completely resolved. An EEG was obtained per neurology which was negative. She planned to follow-up with the endocrinology nurse practitioner in 1-2 weeks and with her PCP in 1-2 weeks. She was discharged home in stable condition. This patient was seen by Taran Lujan PA-C under the supervision of Doctor Shalini. [] Patient Problems: Active and Suspected Problems Acute hyperglycemia (Acute) - Physical Exam General: Alert, Oriented x3, Cooperative HEENT: Atraumatic, PERRLA, EOMI, Normocephalic Neck: Supple, No JVD, Negative Carotid Bruits Lungs: Clear to auscultation, Normal air movement Cardiovascular: Regular rate, No murmurs Abdomen: Bowel Sounds Present, Soft, Non Tender Extremities: No edema, Capillary Refill Less than 3 Seconds Skin: No rashes, No breakdown Musculoskeletal: No Tenderness to Palpation of Joints or Extremities Neurological: Cranial nerves II-XII grossly intact Psych/Mental Status: Normal Affect, Appropriate Vital Signs Temp Pulse Resp BP Pulse Ox 98 F 62 15 128/72 H 98 10/06/18 13:10 10/06/18 13:10 10/06/18 13:10 10/06/18 13:10 10/06/18 13:10 Oxygen Delivery Method Room Air Weight: 149 lb 0.52 oz Body Mass Index (BMI) 26.4 Finger Stick Blood Glucose 190 Intake and Output for Last 24 Hours Intake Total 440 / 440 Balance 440 / 440 Microbiology Past 72 Hours 10/05/18 Unknown Urine Culture - Preliminary Urine, Clean Catch Mixed Gram Positive Organisms POC Glucose POC Glucose 119 H 86 107 POC Glucose 199 H 201 H Discharge Diet: Low fat/ Low Cholesterol, 1800 Calorie Control Diet, 2000 mg Sodium Diet Discharge Activity: Return to Normal Activity Home Medications: Medications to take at Discharge Lisinopril [Zestril] 5 mg PO DAILY 08/17/15 Aspirin [Adult Low Dose Aspirin EC] 81 mg PO DAILY 02/04/16 Furosemide [Lasix] 40 mg PO DAILY 02/04/16 Simvastatin [Zocor] 40 mg PO QHS 01/24/17 Clopidogrel Bisulfate [Plavix] 75 mg PO DAILY 06/23/17 Metoprolol Tartrate [Lopressor (beta elder)] 25 mg PO BID 06/23/17 Nitroglycerin [Nitrostat] 0.4 mg SUBLINGUAL Q5M PRN 09/28/17 Insulin Detemir [Levemir FlexPen] 23 units SC BREAKFAST 02/18/18 Glimepiride [Amaryl] 4 mg PO DAILY #30 tab 05/31/18 Insulin Detemir [Levemir Flextouch] 26 unit SC QHS #1 insuln.pen 05/31/18 Metformin HCl 1,000 mg PO BID #60 tab 05/31/18 Cyclobenzaprine [Flexeril] 10 mg PO TID PRN #20 tablet 07/02/18 [place] Carbonate 300 mg PO BID 09/14/18 Quetiapine Fumarate [Seroquel] 100 mg PO QHS 09/14/18 Risperidone [Risperdal] 4 mg PO QHS 09/14/18 Pantoprazole Sodium [Protonix] 40 mg PO DAILY 10/05/18 Primary Care Physician: Gato Salcedo MD [Primary Care Provider] - Please follow up with your Primary Care Physician in: 1 week Please Follow Up With: Siena Amezcua NP-C When: 1-2 weeks Disposition: Home Minutes spent on discharge:: 35 Patient Condition:: Stable Medical Necessity - Tobacco Use Smoking Status: Former smoker Meaningful Use Info Meaningful Use Diagnoses (Choose all that apply): None applicable <Parker Loya - Last Filed: 10/06/18 16:23> Discharge Date and Diagnosis - Primary Discharge Diagnosis Active and Suspected Problems CVA (cerebral vascular accident) (Acute) - Secondary Discharge Diagnosis Chronic Problems GERD (gastroesophageal reflux disease) (Chronic) Uncontrolled type 2 diabetes mellitus (Chronic) Benign essential hypertension (Chronic) Type 2 diabetes mellitus (Chronic) Hyperlipidemia (Chronic) Coronary artery disease (Chronic) ROMEL LAD 01/21 COPD (chronic obstructive pulmonary disease) (Chronic) cont smoking Tobacco abuse (Chronic) NSTEMI (non-ST elevated myocardial infarction) (Chronic) Hospital Course and Treatment Operations: None Procedures: Electroencephalogram Summary of Care Provided: Patient seen and examined independently. Data reviewed. I agree with the above note by the physician assistant professor in family studies. The patient is a 63 year old F presents with hyperglycemia. BGTs were 500. Resumed on her regular insulin from home. BGTs were controlled here. Patient was going to be discharged on 10/05, however, she had dysarthria and left-sided weakness. She was evaluated by neurology, who found so inconsistencies in exam. MRI was negative. Therefore, CVA was ruled out. Unclear, if clear neurologic event or psychosomatic.[] - Physical Exam General: Alert, Cooperative, No apparent distress HEENT: Atraumatic, Normocephalic Oral: Moist Mucosa, No Gingival or Mucosal Lesions/ Ulcerations Psych/Mental Status: Normal Affect, Appropriate Vital Signs Temp Pulse Resp BP Pulse Ox 36.6 C 62 15 128/72 H 98 10/06/18 13:10 10/06/18 13:10 10/06/18 13:10 10/06/18 13:10 10/06/18 13:10 Oxygen Delivery Method Room Air Weight: 67.6 kg Body Mass Index (BMI) 26.4 Finger Stick Blood Glucose 190 Intake and Output for Last 24 Hours Intake Total 440 / 440 Balance 440 / 440 Microbiology Past 72 Hours 10/05/18 Unknown Urine Culture - Preliminary Urine, Clean Catch Mixed Gram Positive Organisms POC Glucose POC Glucose 119 H 86 107 POC Glucose 199 H 201 H Discharge Diet: Low fat/ Low Cholesterol, 1800 Calorie Control Diet, 2000 mg Sodium Diet Discharge Activity: Return to Normal Activity Disposition: Home Minutes spent on discharge:: 35 Patient Condition:: Stable Medical Necessity - Tobacco Use Smoking Status: Former smoker Meaningful Use Info Meaningful Use Diagnoses (Choose all that apply): None applicable Code Visit Inpatient E AND M: 42905 Disch Hosp 10/06/18 8807 <Electronically signed by Taran GARDUNO> Date Taran GARDUNO 10/06/18 1624<Electronically signed by Parker Loya DO> Cosigner Signature (if applicable): Date Parker Loya DO CC: SHAAN Lujan; Parker Loya DO; Gato Salcedo MD Signed ELECTROENCEPHALOGRAM Observed: 10/06/2018 Status: F Source: [place] 1:40 PM [facility] Pulmonary Services/Neurology [address] [place] [address] MR#: [id number] Acct: [id number] Name: SOFÍA MARY Rep #: [id number] : 1955 63 From: Orlando Silva MD Referring Dr: Parker Loya DO Status: DIS WU Ordering Dr: Date: [id number] Sex[facility] F C - Electroencephalogram Date of study 10/06/18 This is an 18 channel electroencephalogram performed utilizing the International 10-20 electrode placement protocol as well as photic stimulation, hyperventilation and EKG reference leads on this 63-year-old female. Background activity is 10 Hz symmetrically in the posterior leads which attenuates with eye-opening. Hyperventilation is performed for 2 minutes with good effort with no lateralizing or epileptiform changes and the post hyperventilatory phase was unremarkable. Patient remained awake throughout the recording. EKG reference leads are normal sinus rhythm throughout the recording. Stimulation generates a normal symmetric driving response in the posterior leads. Impression: Normal electroencephalogram 10/06/18 1340 <Electronically signed by Orlando Silva MD> Date Orlando Silva MD CC: Parker Loya DO; Gato Salceod MD; Orlando Silva MD Date Dictated: 10/06/181336 Date Transcribed: 10/06/181336 School Psychologist Assistant: DARNELL Signed DISCHARGE INSTRUCTION Observed: 10/06/2018 Status: F Source: [place] 11:38 AM [facility] Medical Records Department [address] [place] [address] Instructions for Home/Discharge Instructions 10/06/18 1137 MR#: [id number] Acct: [id number] Name: SOFÍA MARY Rep #: [id number] : 1955 63 From: Taran GARDUNO PCP: Gato Salcedo MD Status: ADM WU - Discharge Diagnoses Current Active Problems: Current Active and Chronic Problems CVA (cerebral vascular accident) (Acute) Acute hyperglycemia (Acute) Abnormal finding on urinalysis (Acute) You will use the following diet at home:: Calorie/Carbohydrate Controlled (specify 1200, 1400, etc) - 1800 mounika / day, Cardiac Your food should be the consistency of: Regular Your liquids should be the consistency of: Regular/Thin Discharge Activity: Return to Normal Activity Allergies/Adverse Reactions: Allergies Penicillins Allergy (Verified 10/04/18 17:22) Hives morphine Adverse Reaction (Mild, Verified 10/04/18 17:22) Itching hydrocodone bitartrate [From Vicodin] Adverse Reaction (Verified 10/04/18 17:22) Vomiting ibuprofen Adverse Reaction (Verified 10/04/18 17:22) Vomiting Medications to take at Discharge Lisinopril [Zestril] 5 mg PO DAILY 08/17/15 Aspirin [Adult Low Dose Aspirin EC] 81 mg PO DAILY 02/04/16 Furosemide [Lasix] 40 mg PO DAILY 02/04/16 Simvastatin [Zocor] 40 mg PO QHS 01/24/17 Clopidogrel Bisulfate [Plavix] 75 mg PO DAILY 06/23/17 Metoprolol Tartrate [Lopressor (beta elder)] 25 mg PO BID 06/23/17 Nitroglycerin [Nitrostat] 0.4 mg SUBLINGUAL Q5M PRN 09/28/17 Insulin Detemir [Levemir FlexPen] 23 units SC BREAKFAST 02/18/18 Glimepiride [Amaryl] 4 mg PO DAILY #30 tab 05/31/18 Insulin Detemir [Levemir Flextouch] 26 unit SC QHS #1 insuln.pen 05/31/18 Metformin HCl 1,000 mg PO BID #60 tab 05/31/18 Cyclobenzaprine [Flexeril] 10 mg PO TID PRN #20 tablet 07/02/18 [place] Carbonate 300 mg PO BID 09/14/18 Quetiapine Fumarate [Seroquel] 100 mg PO QHS 09/14/18 Risperidone [Risperdal] 4 mg PO QHS 09/14/18 Pantoprazole Sodium [Protonix] 40 mg PO DAILY 10/05/18 Primary Care Physician: Gato Salcedo MD [Primary Care Provider] - Please follow up with your Primary Care Physician in: 1 week Test Results: Test results from this visit will be discussed in further detail at your follow-up appointment, if applicable. Please Follow Up With: Siena Amezcua NP-C When: 1-2 weeks Proposed Discharge Date: 10/06/18 10/06/18 1138 <Electronically signed by Taran GARDUNO> Date Taran GARDUNO CC: Gato Salcedo MD Signed BEDSIDE GLUCOSE Collected: 10/06/2018 Status: F Source: [place] 10:55 AM [facility] REPOSITORY TYPE CODE TESTS RESULT OUT OF REFERENCE UNITS RANGE LAB L501.080 70-110 mg/dL High BEDSIDE GLU 119 Result Comment: MANAGEMENT OF PATIENT CARE PER NURSING PROTOCOL Performed By: #### L501.080 #### [facility] Point of Care [address] [place], [place] [id number] BEDSIDE GLUCOSE Collected: 10/06/2018 Status: F Source: [place] 6:42 AM [facility] REPOSITORY TYPE CODE TESTS RESULT OUT OF RANGE REFERENCE UNITS LAB L501.080 70-110 mg/dL Normal BEDSIDE GLU 86 Result Comment: MANAGEMENT OF PATIENT CARE PER NURSING PROTOCOL Performed By: #### L501.080 #### [facility] Point of Care [address] [place] [address] BEDSIDE GLUCOSE Collected: 10/06/2018 Status: F Source: [place] 3:03 AM [facility] REPOSITORY TYPE CODE TESTS RESULT OUT OF RANGE REFERENCE UNITS LAB L501.080 70-110 mg/dL Normal BEDSIDE GLU 107 Result Comment: MANAGEMENT OF PATIENT CARE PER NURSING PROTOCOL Performed By: #### L501.080 #### [facility] Point of Care [address] [place], [place] [id number] BEDSIDE GLUCOSE Collected: 10/05/2018 Status: F Source: [place] 9:05 PM [facility] REPOSITORY TYPE CODE TESTS RESULT OUT OF REFERENCE UNITS RANGE LAB L501.080 70-110 mg/dL High BEDSIDE GLU 199 Result Comment: MANAGEMENT OF PATIENT CARE PER NURSING PROTOCOL Performed By: #### L501.080 #### [facility] Point of Care [address] [place], [place] [address] BEDSIDE GLUCOSE Collected: 10/05/2018 Status: F Source: [place] 4:49 PM [facility] REPOSITORY TYPE CODE TESTS RESULT OUT OF REFERENCE UNITS RANGE LAB L501.080 70-110 mg/dL High BEDSIDE GLU 201 Result Comment: MANAGEMENT OF PATIENT CARE PER NURSING PROTOCOL Performed By: #### L501.080 #### [facility] Point of Care [address] [place], [place] [address] ECHOCARDIOGRAM COMPLETE Observed: 10/05/2018 Status: F Source: [place] 4:41 PM [facility] Cardiovascular Services [address] [place] [address] Echo Complete 10/05/18 1324 MR#: [id number] Acct: [id number] Name: SOFÍA MARY Rep #: [id number] : 1955 63 From: Kiran Fitzgerald MD Attending Dr: Parker Loya DO Status: ADM WU Ordering Dr: Orlando Silva MD Date: 10/05/18 Location: PCU Sex: F C Admitted: 10/05/18 Reason For Study: TIA/CVA Procedure This was a 2D Doppler, Color Flow transthoracic echocardiogram. The exam was of adequate technical quality. Exam performed portable in patient room. Left Ventricle Normal LV size. Left ventricular systolic function is normal. The estimated ejection fraction is 65 %. No evidence for diastolic dysfunction. No regional wall motion abnormalities noted. Right Ventricle Normal RV size. Normal systolic function. Atria Normal left atrium. Normal right atrium. No doppler evidence for ASD. Mitral Valve There is no mitral annular calcification. Anterior leaflet diffuse mitral valve thickening. Mild focal mitral valve calcification of the anterior leaflet. Trivial mitral valve insufficiency. Tricuspid Valve Normal tricuspid valve. Trivial tricuspid valve insufficiency. Right ventricular systolic pressure estimated to be 24 mmHg. Aortic Valve Trisinus/trileaflet aortic valve. Mild diffuse aortic valve calcification. Mild (1+) aortic valve insufficiency. Pulmonic Valve The pulmonic valve is not well visualized. Great Vessels Normal sized aortic root. Pericardium/Pleural No pericardial effusion. Medication Performed a rapid injection of agitated mix of 9 cc saline and 1cc air to assess for atrial septal defect. MMode/2D Measurements AND Calculations LVIDd: 3.8 cm IVSd: 0.98 cm Ao root diam: 2.7 cm LVIDs: 2.3 cm LVPWd: 0.92 cm RVDd: 2.7 cm FS: 38.1 % LAV(MOD-bp): 33.0 ml LVAd ap4: 23.5 cm2 SV(MOD-sp4): 43.2 ml LAV(MOD-bp) Indexed: 19.3 ml/m2 EDV(MOD-sp4): 63.0 ml LAV(MOD-sp2): 31.0 ml EDV(sp4-el): 66.3 ml LAV(MOD-sp4): 31.7 ml LVAs ap4: 11.9 cm2 ESV(MOD-sp4): 19.8 ml ESV(sp4-el): 21.0 ml EF(MOD-sp4): 68.5 % EF(sp4-el): 68.4 % SV(sp4-el): 45.3 ml LA A4 area: 13.4 cm2 LA dimension(2D): 3.3 cm RA A4 area: 11.7 cm2 Time Measurements MV dec time: 0.25 sec Doppler Measurements AND Calculations MV E max zunilda: 74.1 cm/sec Lat Peak E' Zunilda: 9.5 cm/sec Med Peak E' Zunilda: 6.8 cm/sec MV A max zunilda: 92.5 cm/sec E/E' lat: 7.8 E/E' med: 10.9 MV E/A: 0.80 Ao V2 max: 142.9 cm/sec AI max zunilda: 363.4 cm/sec LV V1 max: 150.2 cm/sec Ao max P.2 mmHg AI max P.8 mmHg LV V1 max P.0 mmHg AI dec slope: 216.1 cm/sec2 AI P1/2t: 492.4 msec PA V2 max: 83.6 cm/sec TR max zunilda: 231.0 cm/sec TR max P.3 mmHg Interpretation Summary Left ventricular systolic function is normal. The estimated ejection fraction is 65 %. Anterior leaflet diffuse mitral valve thickening. Mild focal mitral valve calcification of the anterior leaflet. Trivial mitral valve insufficiency. Trivial tricuspid valve insufficiency. Mild diffuse aortic valve calcification. Mild (1+) aortic valve insufficiency. Right ventricular systolic pressure estimated to be 24 mmHg. No evidence for diastolic dysfunction. Ordering Physician: Orlando Silva Referring Physician: GATO SALCEDO Performed By: Diane Maurice RDCS 10/05/18 1640 Date Kiran Fitzgerald MD CC: Parker Loya DO; Gato Salcedo MD; Orlando Silva MD Date Dictated: 10/05/18 1324 Date Transcribed: 10/05/18 [facility] School Psychologist Assistant: Signed LITHIUM Collected: 10/05/2018 Status: F Source: [place] 12:05 PM [facility] REPOSITORY TYPE CODE TESTS RESULT OUT OF RANGE REFERENCE UNITS LAB L501.9060 0.60-1.20 mmol/L Low LI 0.40 Performed By: #### L501.9060 #### [facility] [address] [place] [place], [address] CONSULTATION Observed: 10/05/2018 Status: F Source: [place] 11:49 AM [facility] Medical Records Department [address] [place] [address] Consultation 10/05/18 1136 MR#: [id number] Acct: [id number] Name: SOFÍA MARY Rep #: [id number] : 1955 63 From: Orlando Silva MD PCP: Gato Salcedo MD Status: ADM WU Y Location: [place] [address] Reason for Consult Date of Consultation: 10/05/18 Reason for Consultation: Stroke team History of Present Illness: This is a 63-year-old female admitted as below, daughter this morning by phone noted abnormal speech, nursing staff noted abnormal speech a few minutes ago as well as left sided weakness. Stroke team was called. Patient currently denies any pain. Denies any weakness. She is on lithium for bipolar but she denies any mood issues currently. Admit note: The patient is a 63 year old F with a significant history of former tobacco use; heart failure; hypertension; diabetes type 2; depression; and insomnia who presented with high blood glucose. Patient reported that she had a funny feeling that prompted her to check her blood glucose. She described the funny feeling as feeling lightheaded and weird. Her symptoms started about an hour prior to presentation. She checked her blood glucose and her reading was high. She drank some water and checked her blood glucose again but a reading remained high for which reason she came to emergency department. Associated with her symptoms is polydipsia; polyuria and anorexia. At the emergency department her blood glucose was in the 500s. She received IV fluids and 15 units of short acting insulin. Past Medical History Past Medical History (Chronic Problems): Chronic Problems GERD (gastroesophageal reflux disease) (Chronic) Uncontrolled type 2 diabetes mellitus (Chronic) Benign essential hypertension (Chronic) Type 2 diabetes mellitus (Chronic) Hyperlipidemia (Chronic) Coronary artery disease (Chronic) ROMEL LAD 01/21 COPD (chronic obstructive pulmonary disease) (Chronic) cont smoking Tobacco abuse (Chronic) NSTEMI (non-ST elevated myocardial infarction) (Chronic) Allergies Penicillins Allergy (Verified 10/04/18 17:22) Hives morphine Adverse Reaction (Mild, Verified 10/04/18 17:22) Itching hydrocodone bitartrate [From Vicodin] Adverse Reaction (Verified 10/04/18 17:22) Vomiting ibuprofen Adverse Reaction (Verified 10/04/18 17:22) Vomiting Home Medications: Ambulatory Orders Medication Instructions Recorded Lisinopril [Zestril] 5 mg PO DAILY 08/17/15 Aspirin [Adult Low Dose Aspirin EC] 81 mg PO DAILY 02/04/16 Surgical History: angioplasty, appendectomy, cholecystectomy, hysterectomy, - - LAD PCI/ROMEL-02/08/2014 at [facility], stent placement at [facility] 03/15/17 along with percutaneous balloon angioplasty Lives: With Family Smoking Status: Former smoker Alcohol: None - *Family History Maternal History Items: Cancer - Uterine cancer, Diabetes, Heart Disease Paternal History Items: Heart Disease Sibling History Items: Diabetes, Heart Disease, Hypertension Review of Systems Neurological: Reports: Change in Speech, Slurred speech, Numbness, Tingling. Denies: Balance problems, Blurred vision, Double vision, Confusion, Difficulty swallowing, Focal weakness, Headaches, Incoordination Psychiatric: Denies: Anxiety, Depression Patient Problems: Active and Suspected Problems Acute hyperglycemia (Acute) Abnormal finding on urinalysis (Acute) - Physical Exam General: Alert, Oriented x3, Cooperative, No apparent distress HEENT: Atraumatic, PERRLA, EOMI Neurological: Cranial nerves II-XII grossly intact, Deep Tendon Reflexes 2+/4 and Symmetrical, Neuro grossly intact, Motor Exam 5/5 strength throughout, Slurred Speech Vital Signs Temp Pulse Resp BP Pulse Ox 36.6 C 81 20 H 108/54 L 97 10/05/18 11:21 10/05/18 11:21 10/05/18 11:21 10/05/18 11:21 10/05/18 11:21 Oxygen Delivery Method Room Air Weight: 67.6 kg Body Mass Index (BMI) 26.4 Finger Stick Blood Glucose 190 Laboratory Tests Past 24 Hrs WBC RBC Hgb Hct MCV MCH WBC 7.7 RBC 3.63 L Hgb 11.5 L Hct 32.7 L MCV 90.1 MCH 31.7 MCHC 35.2 RDW 11.9 POC Glucose POC Glucose 190 H 185 H 160 H POC Glucose 103 > 500 H* 500 H* CT head reviewed, no acute. Assessment/Plan All Active Problems Acute hyperglycemia (Acute) Abnormal finding on urinalysis (Acute) VTE (venous thromboembolism) (Resolved) Dysarthria: Currently there are no stroke symptoms therefore not a candidate for TPA and stroke team will be canceled. On my examination she had some nonphysiologic left-sided drift which was distractible. She has had some hyperglycemia, she is on lithium by history and she has a history of bipolar withdrawal confounding factors. Normal blood pressure and sinus rhythm on telemetry both are reassuring. Plan: MRI Echo Continue telemetry monitoring PT, OT and speech therapy evaluation Continue aspirin therapy 10/05/18 1149 <Electronically signed by Orlando Silva MD> Date Orlando Silva MD Cosigner Signature (if applicable): Date CC: Gato Salcedo MD Signed BRAIN W/WO CONTRAST Observed: 10/05/2018 Status: F Source: [place] 11:43 AM [facility] Imaging Services [address] [place] [address] Brain W/WO Contrast MR#: [id number] Acct: [id number] Name: SOFÍA MARY Rep #: [id number] : 1955 F 63 From: Cezar Francois MD PCP: Gato Salcedo MD Status: ADM WU Study: Brain W/WO Contrast Date of Exam: 10/05/18 Exam# [id number] Ordering Dr: Orlando Silva MD STUDY: MRI BRAIN WITH AND WITHOUT CONTRAST REASON FOR EXAM: Female, 63 years old. Aphasia. Slurred speech. TECHNIQUE: Standardized multiplanar fat and water weighted pulse sequences were obtained. 7 ml of Gadavist contrast material was administered intravenously for the contrast portion of the examination. COMPARISON: CT, earlier the same day. MRI October 05 May 31, 2018 FINDINGS: Normal size of the ventricles and extra-axial spaces for the patient's age. Normal white matter tracts of the supratentorial brain. There is no evidence for recent intracranial ischemia or other cause of cytotoxic edema on diffusion weighted imaging (DWI). Normal T2* images of the brain without demonstrated susceptibility artifact. There is no demonstrated hemosiderin stain. Normal bilateral basal ganglia. Normal thalami. There is no extra-axial fluid accumulation. Normal flow voids within the major intracranial circulation suggesting patency by spin echo criteria. Normal venous enhancement. There is no enhancing intra-axial or extra-axial abnormality. Normal sella turcica, pituitary gland, infundibular stalk, optic chiasm and hypothalamus. Normal tectal plate and pineal gland. Normal midbrain, pascual and medulla. Normal cerebellum. Normal basal cisterns. Normal bilateral temporal bones. Normal bilateral internal auditory canals. No demonstrated orbital abnormality, within the constraints of a routine brain study. Normal visualized paranasal sinuses. Normal calvarium and skull base. Normal visualized soft tissue structures. Normal visualized upper cervical spine. MRI/Brain W/WO Contrast IMPRESSION: Normal unenhanced and enhanced MRI of the brain. Electronically Signed: Cezar Francois MD at 17:41 EST , Service support , CC: Gato Salcedo MD; Orlando Silva MD School Psychologist Assistant: Signed BRAIN/HEAD WITHOUT Observed: 10/05/2018 Status: F Source: [place] CONTRAST 11:13 AM [facility] Imaging Services [address] [place] [address] Brain/Head without Contrast MR#: [id number] Acct: [id number] Name: SOFÍA MARY Rep #: [id number] : 1955 F 63 From: Izaiah Maza MD PCP: Gato Salcedo MD Status: ADM WU Study: Brain/Head without Contrast Date of Exam: 10/05/18 Exam# [id number] Ordering Dr: Parker Loya DO STUDY: CT BRAIN WITHOUT CONTRAST REASON FOR EXAM: Female, 63 years old. Right-sided numbness and tingling. RADIATION DOSAGE (If Supplied By Facility): CTDIvol = ( 44.99 ) mGy, DLP = ( 745.49 ) mGycm TECHNIQUE: Transaxial CT imaging of the brain was performed without administration of intravenous contrast material. Individualized dose optimization techniques were used for this CT. COMPARISON: 05/30/2018. FINDINGS: Normal soft tissue structures. Normal calvarium. Normal size ventricles and extra-axial spaces for the patient's age. Normal white matter tracts of the cerebral hemispheres. There are small punctate calcifications of the basal ganglia which are seen in the aging brain as a normal variant. Normal brainstem. Normal cerebellum. There is no intracranial hemorrhage. There are no findings of an acute ischemic infarction. Normal visualized paranasal sinuses. CT/Brain/Head without Contrast IMPRESSION: Normal unenhanced CT scan of the brain. N.B. : The above information has been verbally conveyed by Izaiah Maza MD to Dr. Loya;[phone], on 10/05/2018 11:45:54 (ET). Electronically Signed: Izaiah Maza MD at 11:40 EST , Service support , CC: Parker Loya DO; Gato Salcedo MD School Psychologist Assistant: Signed BEDSIDE GLUCOSE Collected: 10/05/2018 Status: F Source: [place] 11:10 AM [facility] REPOSITORY TYPE CODE TESTS RESULT OUT OF REFERENCE UNITS RANGE LAB L501.080 70-110 mg/dL High BEDSIDE GLU 190 Result Comment: MANAGEMENT OF PATIENT CARE PER NURSING PROTOCOL Performed By: #### L501.080 #### [facility] Point of Care [address] [place] [address] BEDSIDE GLUCOSE Collected: 10/05/2018 Status: F Source: [place] 6:43 AM [facility] REPOSITORY TYPE CODE TESTS RESULT OUT OF REFERENCE UNITS RANGE LAB L501.080 70-110 mg/dL High BEDSIDE GLU 185 Result Comment: MANAGEMENT OF PATIENT CARE PER NURSING PROTOCOL Performed By: #### L501.080 #### [facility] Point of Care [address] [place] [address] CBC W/DIFF, AUTOMATED Collected: 10/05/2018 Status: F Source: [place] 5:40 AM [facility] REPOSITORY TYPE CODE TESTS RESULT OUT OF RANGE REFERENCE UNITS LAB L100.1000 4.4-11.0 K/mm3 Normal WBC 7.7 LAB L100.1200 4.2-5.4 M/mm3 Low RBC 3.63 LAB L100.1300 12.0-15.0 g/dl Low HGB 11.5 LAB L100.1400 37-47 % Low HCT 32.7 LAB L100.1500 81-99 fL Normal MCV 90.1 LAB L100.1600 27.0-32.0 pg Normal MCH 31.7 LAB L100.1700 32-36 g/gl Normal MCHC 35.2 LAB L100.1810 11.6-14.6 % Normal RDW CV 11.9 LAB L100.1820 35.1-43.9 fl Normal RDW SD 37.1 LAB L100.1900 150-450 K/mm3 Normal PLT 228 LAB L100.2000 6.2-12.0 fl Normal MPV 11.1 LAB L100.2100 47-70 % Low NEUT% 38.2 LAB L100.2200 19-41 % High LY% 50.2 LAB L100.2300 0-10 % Normal MONO% 7.4 LAB L100.2400 0-5 % Normal EO% 3.5 LAB L100.2500 0-1 % Normal BASO% 0.3 LAB L100.2550 0.0-0.9 % Normal IM GRAN % 0.400 Result Comment: IG% - Immature Granulocytes (promyelocytes, myelocytes and metamyelocytes) > 1% indicates that a LEFT SHIFT is Present. LAB L100.2620 2.0-7.7 X10 3/uL Normal Absolute Neut 2.9 LAB L100.2720 0.83-4.51 X10 3/ul Normal Absolute Lymph 3.86 Performed By: #### L100.0100 #### [facility] [address] [place], [address] BASIC METABOLIC Collected: 10/05/2018 Status: F Source: [place] PROFILE (BMP) 5:40 AM [facility] REPOSITORY TYPE CODE TESTS RESULT OUT OF RANGE REFERENCE UNITS LAB L501.0100 74-106 mg/dL High GLU 174 Result Comment: Fasting Glucose result greater than or equal to 126 mg/dL suggests DIABETES MELLITUS per A.D.A. criteria. Please note revised GLUCOSE reference range effective 2017. LAB L501.1000 7-18 mg/dL Normal BUN 14 LAB L501.1100 0.55-1.02 mg/dL Normal CREAT,SERUM 0.83 Result Comment: The validity of the calculated GFR AND GFRAA in patients over 70 years has not been determined. Clinical correlation is essential. LAB L501.1110 >60 mL/min Normal EST GFR 73 Result Comment: Non- GFR Calc LAB L501.1115 >60 mL/min Normal EST GFR - AA 89 Result Comment: GFR Calc LAB L501.1255 ml/min Normal Estimated CRCL 55.90 LAB L501.1300 10-20 RATIO Normal BUN/CRE 16.9 LAB L501.2200 8.5-10 mg/dL Low .1 CA 8.3 LAB L501.5300 136-14 mmol/L Normal 5 NA 142 LAB L501.5600 3.5-5. mmol/L Normal 1 K 3.8 LAB L501.5900 98-107 mmol/L High CL 108 LAB L501.6100 21.0-3 mmol/L Normal 2.0 CO2 26.0 LAB L501.6200 5-15 Normal GAP 8 Performed By: #### L500.2500 #### [facility] [address] [place], [address] BEDSIDE GLUCOSE Collected: 10/05/2018 Status: F Source: LI 3:06 AM [facility] REPOSITORY TYPE CODE TESTS RESULT OUT OF REFERENCE UNITS RANGE LAB L501.080 70-110 mg/dL High BEDSIDE GLU 160 Result Comment: MANAGEMENT OF PATIENT CARE PER NURSING PROTOCOL Performed By: #### L501.080 #### [facility] Point of Care [address] [place] [address] HISTORY AND PHYSICAL Observed: 10/05/2018 Status: F Source: [place] EXAM 2:26 AM [facility] REPOSITORY [facility] Medical Records Department [address] [place] [address] History and Physical 10/04/18 8782 MR#: [id number] Acct: [id number] Name: SOFÍA MARY Rep #: [id number] : 1955 63 From: Harsh Alexis MD PCP: Gato Salcedo MD Status: ADM WU Y Location: [place] [address] Problem List (1) Acute hyperglycemia Status: Acute (2) Abnormal finding on urinalysis Status: Acute History of Present Illness Date of Admission: 10/04/18 Chief Complaint: elevated blood glucose The patient is a 63 year old F with a significant history of former tobacco use; heart failure; hypertension; diabetes type 2; depression; and insomnia who presented with high blood glucose. Patient reported that she had a funny feeling that prompted her to check her blood glucose. She described the funny feeling as feeling lightheaded and weird. Her symptoms started about an hour prior to presentation. She checked her blood glucose and her reading was high. She drank some water and checked her blood glucose again but a reading remained high for which reason she came to emergency department. Associated with her symptoms is polydipsia; polyuria and anorexia. At the emergency department her blood glucose was in the 500s. She received IV fluids and 15 units of short acting insulin. Past Medical History Past Medical History (Chronic Problems): Chronic Problems GERD (gastroesophageal reflux disease) (Chronic) Uncontrolled type 2 diabetes mellitus (Chronic) Benign essential hypertension (Chronic) Type 2 diabetes mellitus (Chronic) Hyperlipidemia (Chronic) Coronary artery disease (Chronic) ROMEL LAD 01/21 COPD (chronic obstructive pulmonary disease) (Chronic) cont smoking Tobacco abuse (Chronic) NSTEMI (non-ST elevated myocardial infarction) (Chronic) Allergies Penicillins Allergy (Verified 10/04/18 17:22) Hives morphine Adverse Reaction (Mild, Verified 10/04/18 17:22) Itching hydrocodone bitartrate [From Vicodin] Adverse Reaction (Verified 10/04/18 17:22) Vomiting ibuprofen Adverse Reaction (Verified 10/04/18 17:22) Vomiting Home Medications: Ambulatory Orders Medication Instructions Recorded Lisinopril [Zestril] 5 mg PO DAILY 08/17/15 Aspirin [Adult Low Dose Aspirin EC] 81 mg PO DAILY 02/04/16 Surgical History: angioplasty, appendectomy, cholecystectomy, hysterectomy, - - LAD PCI/ROMEL-02/08/2014 at [facility], stent placement at [facility] 03/15/17 along with percutaneous balloon angioplasty Lives: With Family Smoking Status: Former smoker Alcohol: None - *Family History Maternal History Items: Cancer - Uterine cancer, Diabetes, Heart Disease Paternal History Items: Heart Disease Sibling History Items: Diabetes, Heart Disease, Hypertension Review of Systems Constitutional: Reports: Anorexia. Denies: Chills, Fever, Weight Change HEENT: Denies: Head Aches, Sinus Congestion, Sinus Drainage Cardiovascular: Reports: Light Headedness. Denies: Chest Pain, Palpitations Respiratory: Denies: Cough, Shortness of breath at rest, Sputum production Gastrointestinal: Denies: Abdominal Pain, Nausea, Vomiting Genitourinary: Reports: Frequency. Denies: Dysuria Musculoskeletal: Denies: Joint Pain, Joint Tenderness Skin: Denies: Rash, Wounds Neurological: Denies: Numbness, Tingling, Focal weakness Psychiatric: Denies: Anxiety, Depression, Homicidal Ideations, Suicidal Ideations Endocrine: Reports: Polydipsia, Polyuria Hematologic/ Lymphatic: Denies: Easy Bruising, Easy Bleeding VTE Information - Inpt Only VTE Present on Admission: No VTE Mechan Device Prophylaxis: None VTE Pharm Prophylaxis ordered?: Yes Patient Problems: Active and Suspected Problems Acute hyperglycemia (Acute) Abnormal finding on urinalysis (Acute) - Physical Exam General: Alert, Oriented x3, Cooperative HEENT: Atraumatic, PERRLA, EOMI, Normocephalic Neck: Supple, No JVD, Negative Carotid Bruits Lungs: Clear to auscultation, Normal air movement Cardiovascular: Regular rate, No murmurs Abdomen: Bowel Sounds Present, Soft, Non Tender Extremities: No edema, Capillary Refill Less than 3 Seconds Skin: No rashes, No breakdown Musculoskeletal: No Tenderness to Palpation of Joints or Extremities Neurological: Neuro grossly intact Psych/Mental Status: Normal Affect, Appropriate Vital Signs Temp Pulse Resp BP Pulse Ox 98.6 F 69 14 120/80 97 10/04/18 17:22 10/04/18 22:27 10/04/18 22:27 10/04/18 22:27 10/04/18 22:27 Oxygen Delivery Method Room Air Weight: 68.492 kg Body Mass Index (BMI) 26.7 Finger Stick Blood Glucose 507 Laboratory Tests Past 24 Hrs WBC RBC Hgb Hct MCV MCH POC Glucose POC Glucose > 500 H* 500 H* Assessment/Plan All Active Problems Acute hyperglycemia (Acute) Abnormal finding on urinalysis (Acute) VTE (venous thromboembolism) (Resolved) The patient is a 63 year old F with a significant history of former tobacco use heart failure; hypertension; diabetes type 2; depression; and insomnia who presented with high blood glucose but with a normal pH and with no acetone in her urine. Acute hyperglycemia. At emergency departments her VBG showed normal pH; she did not have any anion gap and her serum acetone was negative implying patient was not in DKA. The etiology of his acute hypoglycemia is unclear at this time. Patient received 15 units of short acting insulin and IV fluids at the emergency department. On admission on the floor her blood glucose had dropped to 103. Unlikely that she was in hyperosmolar hyperglycemic state. Will restart patient on home regimen of metformin 1000 mg twice daily; Glimepiride 4 mg daily and basal insulin twice daily. Fingerstick q. before meals at bedtime and 3 AM with hypoglycemic protocol. Review of old records show that her A1c on 08/25/2018 was 11.2. Abnormal urinalysis At the emergency department patient had a glucose of 1000 which most likely is due to have a acute hyperglycemia She had leukocyte Estrace of 100 that could be due to inflammation from her acute bacteria. Urine WBC was 10-25. However she did not have any bacteria. Her leukocyte Estrace was negative. She received IV ceftriaxone at emergency department. We will do urine culture and hold off further antibiotics. Pseudohyponatremia. Sodium on admission was 131 Her corrected sodium was 138. Hypocalcemia. Her calcium was 8.6 on BMP. In 4 hours time her calcium had dropped to 7.9. We will repeat calcium in a.m. CAD status post stents Stable with no chest pain. Aspirin and Plavix continued. Heart failure Reports history of heart failure Stress echocardiogram on 03/16/2018 showed estimated ejection fraction of 65%. Likely heart failure is preserved ejection fraction. Stable Lasix continued Hypertension On admission blood pressure was fairly controlled. Lisinopril and Lasix continued. Trend blood pressures and adjust blood pressure medication as necessary. Depression/anxiety/bipolar. Risperdal, Seroquel and lithium continued. Insomnia Seroquel continued. DVT prophylaxis Subcutaneous Lovenox ordered. Code Visit OBSV SILVIANO: [id number] Initial observation care L3 10/05/18 0226 <Electronically signed by Harsh Alexis MD> Date Harsh Alexis MD Cosigner Signature: Date (if applicable) CC: Gato Salcedo MD; Harsh Alexis MD Signed BEDSIDE GLUCOSE Collected: 10/05/2018 Status: F Source: [place] 12:52 AM [facility] REPOSITORY TYPE CODE TESTS RESULT OUT OF RANGE REFERENCE UNITS LAB L501.080 70-110 mg/dL Normal BEDSIDE GLU 103 Result Comment: MANAGEMENT OF PATIENT CARE PER NURSING PROTOCOL Performed By: #### L501.080 #### [facility] Point of Care [address] [place] [address] EMERGENCY DEPARTMENT Observed: 10/05/2018 Status: F Source: [place] SUMMARY 12:01 AM [facility] REPOSITORY [facility] Medical Records Department [address] [place] [address] Emergency Department Summary 10/04/18 1844 MR#: [id number] Acct: [id number] Name: SOFÍA MARY Rep #: [id number] : 1955 63 From: Kyra Reese MD PCP: Gato Salcedo MD Status: REG ER - ER Visit Summary Date of Service: 10/04/18 Chief Complaint: High blood sugar History of Present Illness: The patient is a 63 F with history of diabetes who presents for high blood sugar. She vomited twice today and noted blurred vision. She is also had a dry mouth, polyuria and polydipsia with general weakness and fatigue. Her blood sugar read high. Patient did take her insulin this morning. She is on metformin and daily insulin. She ate chicken and salad dressing and denies any other recent illness or deviation from her normal routine. History of coronary artery disease, COPD, hypertension, hypercholesterolemia and diabetes. Former smoker. Physical Examination: Vital signs: afebrile, hemodynamically stable, no hypoxia on room air General: well nourished, well developed, in no distress Skin: warm, dry, no rash, no pallor HEENT: normocephalic and atraumatic; PERRL, EOMI, moist mucous membranes Cardiovascular: regular rate and rhythm without murmurs, no peripheral edema, 2+ pulses all distal extremities Respiratory: No increased work of breathing, lungs are clear to auscultation bilaterally, no rales, rhonchi or wheezing Abdominal: Abdomen is soft, tender in the epigastrium, with normoactive bowel sounds, no guarding or rebound, no masses MSK: Moves all extremities, no deformities, normal strength Neuro: Awake and alert, oriented 4. No facial droop, sensation and motor function intact and symmetric Test Results: Abnormal Lab Results WBC 8.5 WBC RBC Hgb WBC RBC Hgb Hct MCV MCH MCHC RDW RDW Differential Plt Count MPV Immature Gran % (Auto) Neut % (Auto) Lymph % (Auto) Clinical Impression(s) from Imaging Studies Chest X-Ray 10/04/18 18:50 IMPRESSION: No acute pulmonary pathology of the chest. Electronically Signed: Prakash Alaniz DO at 19:22 EST Tel [phone], Service support , Medications Given Discontinued Medications Sodium Chloride () 1,000 mls @ 999 mls/hr IV .Q1H1M ONE Stop: 10/04/18 19:43 Last Admin: 10/04/18 18:58 Dose: 999 mls/hr Insulin Human Lispro (Humalog Kwikpen (Bkc)) 15 unit SC X1 ONE Stop: 10/04/18 21:45 Last Admin: 10/04/18 22:25 Dose: 15 units Ondansetron HCl (Zofran) 4 mg IV X1 ONE Stop: 10/04/18 19:57 Last Admin: 10/04/18 20:17 Dose: 4 mg Emergency Department Course and Treatment: Patient was given IV fluids. Workup was performed to evaluate for any possible underlying causes of patient's acute hyperglycemia or any HHS or DKA. EKG showed a sinus rhythm with no ischemic changes. Patient's blood sugar was elevated at 519. She had no electrolyte derangements. Potassium was normal. No leukocytosis. Urine was positive for infection. Troponin negative. Negative ketones. No ketones in the urine either. Normal bicarb and pH is 7.41. Patient had no evidence of DKA or HHS on her workup. Patient received IV fluids and was feeling better afterwards. She was given subcutaneous insulin, and blood sugar remained greater than 500. Patient was started on additional fluids and IV Rocephin for treatment of her urinary tract infection. Patient's UTI may be contributing to her poorly controlled blood sugar. IV insulin was not initiated, as patient's is very well-appearing, hemodynamically stable, and is not in DKA or HHS. She was given additional 10 units of subcu insulin. She was discussed with the hospitalist and admitted for poorly controlled diabetes, symptomatic hyperglycemia and acute urinary tract infection. Treatment Plan: [] Disposition: [] Impression: symptomatic hyperglycemia, UTI, poorly controlled DM This note was generated with [employer] dictation software. It may contain incorrect words, spelling, and punctuation that were not noted in review of the chart prior to signing ED Disposition - Plan for ED Patient: Chief Complaint: Hyperglycemia Referrals: Gato Salcedo MD [Primary Care Provider] - What to do if you have Problems For any increased pain, shortness of breath, bleeding, nausea or vomiting, chest pain, or any unexpected problems, contact your Primary Care Provider. Call [facility] ([phone]) or report to the closest Emergency Room. Call 911 if necessary. 10/05/18 0001 <Electronically signed by Kyra Reese MD> Date Kyra Reese MD Cosigner Signature (If Indicated): Date CC: Gato Salcedo MD Observed: 10/05/2018 Status: F Source: [place] CULTURE, URINE 12:00 AM [facility] REPOSITORY Urine Culture Below infection level. ORGANISM 1: Mixed Gram Positive Organisms [place] Count 1000-10,000 MIX CULTURE Mixed contaminants. Submit a new specimen if indicated. Performed By: #### M100.0650 #### [facility] [address] [place], [place], [address] BEDSIDE GLUCOSE Collected: 10/04/2018 Status: F Source: LI 10:57 PM [facility] REPOSITORY TYPE CODE TESTS RESULT OUT OF REFERENCE UNITS RANGE LAB L501.080 70-110 mg/dL High alert BEDSIDE GLU > 500 Result Comment: Dr Conner Followed MANAGEMENT OF PATIENT CARE PER NURSING PROTOCOL Performed By: #### L501.080 #### [facility] Point of Care [address] [place] [address] BASIC METABOLIC Collected: 10/04/2018 Status: C Source: LI PROFILE (BMP) 9:07 PM [facility] REPOSITORY TYPE CODE TESTS RESULT OUT OF RANGE REFERENCE UNITS LAB L501.0100 74-106 mg/dL High alert GLU 520 Result Comment: RESULTS CALLED TO JANA ED 10/04/18 2237 Rene Mckinney. REPORT READ BACK BYSAME . Glucose result greater than or equal to 200 mg/dL suggests DIABETES MELLITUS per A.D.A. criteria. Please note revised GLUCOSE reference range effective 2017. Please note revised GLUCOSE reference range effective 2017. LAB L501.1000 7-18 mg/dL Normal BUN 14 LAB L501.1100 0.55-1.02 mg/dL Normal CREAT,SERUM 0.96 Result Comment: The validity of the calculated GFR AND GFRAA in patients over 70 years has not been determined. Clinical correlation is essential. LAB L501.1110 >60 mL/min Normal EST GFR 62 Result Comment: Non- GFR Calc LAB L501.1115 >60 mL/min Normal EST GFR - AA 75 Result Comment: GFR Calc LAB L501.1255 ml/min Normal Estimated CRCL 48.33 LAB L501.1300 10-20 RATIO Normal BUN/CRE 14.5 LAB L501.2200 8.5-10 mg/dL Low .1 CA 7.9 LAB L501.5300 136-14 mmol/L Low 5 NA 134 Result Comment: CALLED JANA SOMERS WITH CRITICAL GLUC BY [facility] 10-04-18 AT 2136PM READ BACK BY SAME LAB L501.5600 3.5-5.1 mmol/L Normal K 4.3 LAB L501.5900 98-107 mmol/L Normal CL 101 LAB L501.6100 21.0-32.0 mmol/L Normal CO2 23.0 LAB L501.6200 5-15 Normal GAP 10 Performed By: #### L500.2500 #### [facility] [address] [place], [place], [id number] VENOUS BLOOD GAS Collected: 10/04/2018 Status: F Source: [place] 7:41 PM [facility] REPOSITORY TYPE CODE TESTS RESULT OUT OF RANGE REFERENCE UNITS LAB L9000.9990 Normal BLD GAS TYPE [place] LAB L9001.1000 Normal SITE OTHER LAB L9001.1050 O2 Normal Delivery Dev Room Air LAB L9001.1104 Normal Results To ED LAB L9001.1105 Normal Time Given 1950 LAB L9002.1110 7.32-7.42 Normal VBGpH - I-STAT 7.42 LAB L9002.1212 41-51 mmHg Low VBG pCO2 - 34.6 ISTA LAB L9002.1310 25-40 mmHg High VBG PO2 I-STAT 51 LAB L9002.2300 22-26 mmol/L Normal VBG HCO3 ISTAT 22 LAB L9002.2400 -1.0-3.5 mmol/L Low VBG BE ISTAT -2 LAB L9002.2410 50-70 % High VBG SO2 ISTAT 87 LAB L9002.2415 23-33 mmol/L Normal VBG O2 CT 23 ISTAT Performed By: #### L9000.0810 #### [facility] Point of Care [address] [place], [place] [address] URINALYSIS, COMPLETE Collected: 10/04/2018 Status: C Source: [place] 7:05 PM [facility] REPOSITORY Order Comment: Order Date: 12/26/18 How was Urine Obtained? CLEAN CATCH TYPE CODE TESTS RESULT OUT OF RANGE REFERENCE UNITS LAB L400.3000 Yellow COLOR Normal Yellow LAB L400.3050 Clear Sl Normal CLARITY Cldy LAB L400.3200 Normal mg/dl High GLUCOSE, UR 1000 LAB L400.3300 Negative mg/dL Normal BILIRUBIN URINE Negative LAB L400.3400 Negative mg/dl Normal KETONE UR Negative LAB L400.3465 1.002-1.030 Normal SP.GR. DIPSTX 1.010 LAB L400.3550 5.0 - 8.0 pH UR Normal 6.0 LAB L400.3600 Negative mg/dl PROT Normal DIPSTX Negative LAB L400.3700 Normal mg/dl Normal UROBILI Normal LAB L400.3750 Negative Normal NITRITE UR Negative LAB L400.3780 Negative /ul Normal OCCULT BLOOD-UR Negative LAB L400.3800 Negative /ul High LEUK ESTERASE 100 LAB L400.4050 0-5 /hpf WBC Normal 10-25 SEEN LAB L400.4100 0-5 /hpf 0 Normal RBC-UA SEEN LAB L400.4150 5-10 /hpf SQUAM Normal EPI 0-5 SEEN LAB L400.4300 None Seen /hpf 0 Normal BACTERIA SEEN LAB L400.4350 <or=2+ /hpf 0 Normal MUCUS, URINE SEEN Performed By: #### L400.0001 #### [facility] [address] [place], [address] CBC W/DIFF, AUTOMATED Collected: 10/04/2018 Status: F Source: [place] 6:55 PM [facility] REPOSITORY TYPE CODE TESTS RESULT OUT OF RANGE REFERENCE UNITS LAB L100.1000 4.4-11.0 K/mm3 Normal WBC 8.5 LAB L100.1200 4.2-5.4 M/mm3 Normal RBC 4.31 LAB L100.1300 12.0-15.0 g/dl Normal HGB 13.4 LAB L100.1400 37-47 % Normal HCT 38.3 LAB L100.1500 81-99 fL Normal MCV 88.9 LAB L100.1600 27.0-32.0 pg Normal MCH 31.1 LAB L100.1700 32-36 g/gl Normal MCHC 35.0 LAB L100.1810 11.6-14.6 % Normal RDW CV 12.1 LAB L100.1820 35.1-43.9 fl Normal RDW SD 38.9 LAB L100.1900 150-450 K/mm3 Normal PLT 221 LAB L100.2000 6.2-12.0 fl Normal MPV 11.0 LAB L100.2100 47-70 % Normal NEUT% 56.7 LAB L100.2200 19-41 % Normal LY% 33.7 LAB L100.2300 0-10 % Normal MONO% 6.4 LAB L100.2400 0-5 % Normal EO% 2.6 LAB L100.2500 0-1 % Normal BASO% 0.2 LAB L100.2550 0.0-0.9 % Normal IM GRAN % 0.400 Result Comment: IG% - Immature Granulocytes (promyelocytes, myelocytes and metamyelocytes) > 1% indicates that a LEFT SHIFT is Present. LAB L100.2620 2.0-7.7 X10 3/uL Normal Absolute Neut 4.8 LAB L100.2720 0.83-4.51 X10 3/ul Normal Absolute Lymph 2.86 Performed By: #### L100.0100 #### [facility] [address] [place], [address] BASIC METABOLIC Collected: 10/04/2018 Status: F Source: [place] PROFILE ([facility]) 6:55 PM [facility] REPOSITORY TYPE CODE TESTS RESULT OUT OF RANGE REFERENCE UNITS LAB L501.0100 74-106 mg/dL High alert GLU 519 Result Comment: CALLED A[facility] ED WITH CRITICAL GLUC BY [facility] 10-04-18 AT 1942PM READ BACK BY SAME Glucose result greater than or equal to 200 mg/dL suggests DIABETES MELLITUS per A.D.A. criteria. Please note revised GLUCOSE reference range effective 2017. LAB L501.1000 7-18 mg/dL Normal BUN 15 LAB L501.1100 0.55-1.02 mg/dL High CREAT,SERUM 1.18 Result Comment: The validity of the calculated GFR AND GFRAA in patients over 70 years has not been determined. Clinical correlation is essential. LAB L501.1110 >60 mL/min Low EST GFR 49 Result Comment: Non- GFR Calc LAB L501.1115 >60 mL/min Low EST GFR - AA 59 Result Comment: GFR Calc LAB L501.1255 ml/min Normal Estimated CRCL 39.32 LAB L501.1300 10-20 RATIO Normal BUN/CRE 12.7 LAB L501.2200 8.5-10 mg/dL Normal .1 CA 8.6 LAB L501.5300 136-14 mmol/L Low 5 NA 131 LAB L501.5600 3.5-5. mmol/L Normal 1 K 3.9 LAB L501.5900 98-107 mmol/L Normal CL 98 LAB L501.6100 21.0-3 mmol/L Normal 2.0 CO2 23.0 LAB L501.6200 5-15 Normal GAP 10 Performed By: #### L500.2500, L501.2300, L501.4010, L501.5200 #### [facility] [address] [place], [place], [address] PHOSPHORUS Collected: 10/04/2018 Status: F Source: [place] 6:55 PM [facility] REPOSITORY TYPE CODE TESTS RESULT OUT OF RANGE REFERENCE UNITS LAB L501.2300 2.5-4.9 mg/dL Normal PHOS 3.4 Performed By: #### L500.2500, L501.2300, L501.4010, L501.5200 #### [facility] [address] [place], [place], [address] TROPONIN-I Collected: 10/04/2018 Status: F Source: [place] 6:55 PM [facility] REPOSITORY TYPE CODE TESTS RESULT OUT OF RANGE REFERENCE UNITS LAB L501.4010 <0.045 ng/mL Normal < 0.015 TROPONIN-I Result Comment: TROPONIN-I EXPECTED VALUES <0.045 Negative 0.045 - 0.590 Consistent with Cardiac Damage > OR = 0.600 Critical Value Not every elevated troponin is indicative of VT. These values should be used with clinical judgement in examining the patient's clinical picture for diagnosis. To establish a diagnosis of VT versus myocardial injury, there must be a demonstrated rise and/or fall in the troponin values, in addition to ischemic symptoms, EKG changes, new regional wall motion abnormality, and/or angiographical evidence. PLEASE NOTE: REFERENCE RANGES EDITED 18 Performed By: #### L500.2500, L501.2300, L501.4010, L501.5200 #### [facility] [address] [place], [address] MAGNESIUM Collected: 10/04/2018 Status: F Source: [place] 6:55 PM [facility] REPOSITORY TYPE CODE TESTS RESULT OUT OF RANGE REFERENCE UNITS LAB L501.5200 1.6-2.6 mg/dL Normal MG 1.9 Performed By: #### L500.2500, L501.2300, L501.4010, L501.5200 #### [facility] [address] [place], [address] ACETONE SERUM Collected: 10/04/2018 Status: F Source: [place] 6:55 PM [facility] REPOSITORY TYPE CODE TESTS RESULT OUT OF RANGE REFERENCE UNITS LAB L501.6900 NEG Normal ACETONE SERUM NEGATIVE Performed By: #### L501.6900 #### [facility] [address] [place], [address] CHEST 1 VIEW Observed: 10/04/2018 Status: F Source: [place] (PORTABLE) 6:44 PM [facility] REPOSITORY [facility] Imaging Services [address] [place] [address] Chest 1 View (Portable) MR#: [id number] Acct: [id number] Name: SOFÍA MARY Rep #: [id number] : 1955 F 63 From: Prakash Alaniz DO PCP: Gato Salcedo MD Status: REG ER Study: Chest 1 View (Portable) Date of Exam: 10/04/18 Exam# [id number] Ordering Dr: Kyra Reese MD STUDY: X-RAY CHEST REASON FOR EXAM: Female, 63 years old. Hyperglycemia TECHNIQUE: Single frontal view COMPARISON: September 18, 2018 FINDINGS: The lungs are clear and expanded. There is bilateral apical pleural thickening. Normal size heart. Normal mediastinum and jovan. Normal visualized pulmonary arteries. Normal visualized aortic arch and descending thoracic aorta. Mild degenerative changes of the thoracic spine. Normal visualized ribs, clavicles, and shoulders. There is no demonstrated abnormality of the visualized soft tissue structures of the upper abdomen. RAD/Chest 1 View (Portable) IMPRESSION: No acute pulmonary pathology of the chest. Electronically Signed: Prakash Alaniz DO at 19:22 EST Tel [phone], Service support , CC: Gato Salcedo MD; Kyra Reese MD School Psychologist Assistant: Signed BEDSIDE GLUCOSE Collected: 10/04/2018 Status: F Source: [place] 5:49 PM [facility] REPOSITORY TYPE CODE TESTS RESULT OUT OF REFERENCE UNITS RANGE LAB L501.080 70-110 mg/dL High alert BEDSIDE GLU 500 Result Comment: MANAGEMENT OF PATIENT CARE PER NURSING PROTOCOL Performed By: #### L501.080 #### [facility] Point of Care [address] [place] [address] [address] ELECTROCARDIOGRAM Observed: 09/22/2018 Status: F Source: [place] 10:43 AM [facility] REPOSITORY [facility] Cardiovascular Services [address] [place] [address] 12 Lead EKG 09/18/18 1715 MR#: [id number] Acct: [id number] Name: DANIELLE MARY Rep #: [id number] : 1955 63 From: Charlie Hernandez MD Attending Dr: Status: DEP ER Ordering Dr: Cezar Hoffman MD Date: 09/18/18 Location: ED Sex: F C Admitted: Test Reason : CHEST OTHER Blood Pressure : / mmHG Vent. Rate : 086 BPM Atrial Rate : 086 BPM P-R Int : 150 ms QRS Dur : 078 ms QT Int : 390 ms P-R-T Axes : 056 033 024 degrees QTc Int : 466 ms Normal sinus rhythm Normal ECG Confirmed by MARY BARFIELD, CHARILE ([id number]), web content editor ELI HASKINS ([id number]) on 09/22/2018 10:43:13 AM Referred By: HALIMA Confirmed By:CHARLIE HERNANDEZ MD 09/22/18 1043 Date Charlie Hernandez MD CC: CEZAR HOFFMAN MD; Gato Salcedo MD Signed EMERGENCY DEPARTMENT Observed: 09/18/2018 Status: F Source: [place] SUMMARY 6:55 PM [facility] Medical Records Department [address] [place] [address] Emergency Department Summary 09/18/18 1703 MR#: [id number] Acct: [id number] Name: DANIELLE MARY Rep #: [id number] : 1955 63 From: Cezar Hoffman MD PCP: Gato Salcedo MD Status: REG ER History of Present Illness Chief Complaint: Chest Other Informant: Patient Onset: Days - 3 Context: Gradual Onset - without injury, lifting, or back muscle overuse just prior to onset Timing: Continuous Quality: pain Location: bilat mid-back only Current Severity: Severe Maximum Severity: Severe Worsened by: breathing, moving Relieved by: remaining still and breathing easy Associated Symptoms: unchanged chronic cough. nonproductive. no chest pain/discomfort or fever. Narrative: Patient seen here 3 days ago, on the same day as the onset of the discomfort, and had a workup that included CT angiography of the chest that was negative for PE, states she has the same symptoms and the discomfort severity is worse. She denies any new symptoms. She states my lungs hurt but has no discomfort in her chest, only her back when she takes a deep breath, it is also much worse to move. States she has an appointment with a repair armature winder for the first time but has not seen them yet. - Past Medical History (1) Benign essential hypertension Status: Chronic (2) COPD (chronic obstructive pulmonary disease) Status: Chronic Comment: cont smoking (3) Coronary artery disease Status: Chronic Comment: ROMEL LAD 01/21 (4) GERD (gastroesophageal reflux disease) Status: Chronic (5) Hyperlipidemia Status: Chronic (6) Type 2 diabetes mellitus Status: Chronic Past Medical History - Allergies and Home Meds Allergies/Adverse Reactions: Allergies Penicillins Allergy (Verified 09/18/18 16:40) Hives morphine Adverse Reaction (Mild, Verified 09/18/18 16:40) Itching hydrocodone bitartrate [From Vicodin] Adverse Reaction (Verified 09/18/18 16:40) Vomiting ibuprofen Adverse Reaction (Verified 09/18/18 16:40) Vomiting Primary Care Physician: Gato Salcedo MD [Primary Care Provider] - Surgical History: angioplasty, cholecystectomy, hysterectomy, - - LAD PCI/ROMEL-02/08/2014 at [facility], stent placement at [facility] 03/15/17 along with percutaneous balloon angioplasty Smoking Status: Current every day smoker - Family History Maternal Family History: Reports: Heart Disease Paternal Family History: Reports: Heart Disease Sibling Family History: Reports: Heart Disease Review of Systems All systems negative except as indicated General: Denies: Chills, Fever, Sweats Eyes: Denies: Visual changes - bilaterally, Diplopia ENT: Denies: Rhinorrhea, Sore throat Cardiovascular: Denies: Chest pain, Palpitations Respiratory: Reports: Dyspnea - when having pain, Cough. Denies: Sputum, Dyspnea on exertion, Orthopnea Gastrointestinal: Denies: Abdominal pain, Nausea, Vomiting, Diarrhea, Melena, Hematochezia Genitourinary: Denies: Dysuria, Hematuria, Frequency Musculoskeletal: Reports: Back pain. Denies: Neck pain, Swelling, Extremity Pain Skin: Denies: Rash, Abscess, Wounds Neurological: Denies: Headache, Weakness, Numbness Physical Exam Vital Signs/Narrative: Vital Signs 09/18/18 16:14 97.6 F L 93 16 161/77 H 100 Inital Vital Signs reviewed: Yes General: Well nourished, Well developed Head: Normocephalic, Atraumatic Eyes: Perrl, EOMI ENT: Moist mucous membranes, No rhinorrhea Neck: Supple, Nontender Cardiovascular: Regular rate, Regular rhythm, No murmurs Respiratory: No distress, CTA bilaterally, Chest nontender, Diminished - throughout, equal bilaterally, - - +splinting due to back pain on deep inspiration Abdomen: Soft, Nontender, Nondistended, Normal bowel sounds Back: Normal Inspection. Negative for: Nontender - + tender mid-thoracic bilat paraspinal areas; no rash, no midline tenderness. in area of lower lung zones, but very tender in back musculature w/ superficial palpation. Extremities: Nontender - no calf tenderness, No edema Skin: Normal color, No rash Neurological: Alert, Oriented x3, Cranial nerves II-XII grossly intact, Normal Strength, Normal Sensation Psychological: - - anxious Diagnostic/Tx/Re-eval Impressions Chest X-Ray 09/18/18 17:30 IMPRESSION: No acute cardiopulmonary pathology Electronically Signed: Walker Vale MD at 18:00 EST , Service support , 09/18/18 17:30 Chest PA and Lateral [RAD] Stat Laboratory Results WBC 7.5 RBC 4.35 Hgb 13.6 Hct 39.0 MCV 89.7 MCH 31.3 MCHC 34.9 RDW 12.4 - Medical Decision Making Patient feels better after pain control. Her chest x-ray is normal, labs are also normal, she has no leukocytosis or left shift, her troponin is negative, I think she is stable to go home. My concern is that the findings of groundglass opacities in the bases on her CT from 2 days ago. She does not have symptoms of a COPD exacerbation, however differential includes infectious etiologies, as well as inflammatory ones. Unknown if this is interstitial lung disease or airspace disease. I think it would be reasonable to treat her with an antibiotic and prednisone until she follows up with pulmonology, which is about 2 weeks away. She is comfortable with that plan. Also prescribed a short course of some analgesic. 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 Call [facility] ([phone]) or report to the closest Emergency Room. Call 911 if necessary. 09/18/18 4055 <Electronically signed by Cezar Hoffman MD> Date Cezar Hoffman MD Cosigner Signature (If Indicated): Date CC: Gato Salcedo MD CBC W/DIFF, AUTOMATED Collected: 09/18/2018 Status: F Source: [place] 5:25 PM [facility] REPOSITORY TYPE CODE TESTS RESULT OUT OF RANGE REFERENCE UNITS LAB L100.1000 4.4-11.0 K/mm3 Normal WBC 7.5 LAB L100.1200 4.2-5.4 M/mm3 Normal RBC 4.35 LAB L100.1300 12.0-15.0 g/dl Normal HGB 13.6 LAB L100.1400 37-47 % Normal HCT 39.0 LAB L100.1500 81-99 fL Normal MCV 89.7 LAB L100.1600 27.0-32.0 pg Normal MCH 31.3 LAB L100.1700 32-36 g/gl Normal MCHC 34.9 LAB L100.1810 11.6-14.6 % Normal RDW CV 12.4 LAB L100.1820 35.1-43.9 fl Normal RDW SD 39.8 LAB L100.1900 150-450 K/mm3 Normal PLT 247 LAB L100.2000 6.2-12.0 fl Normal MPV 11.2 LAB L100.2100 47-70 % Normal NEUT% 52.6 LAB L100.2200 19-41 % Normal LY% 37.2 LAB L100.2300 0-10 % Normal MONO% 6.8 LAB L100.2400 0-5 % Normal EO% 2.5 LAB L100.2500 0-1 % Normal BASO% 0.5 LAB L100.2550 0.0-0.9 % Normal IM GRAN % 0.400 Result Comment: IG% - Immature Granulocytes (promyelocytes, myelocytes and metamyelocytes) > 1% indicates that a LEFT SHIFT is Present. LAB L100.2620 2.0-7.7 X10 3/uL Normal Absolute Neut 4.0 LAB L100.2720 0.83-4.51 X10 3/ul Normal Absolute Lymph 2.80 Performed By: #### L100.0100 #### [facility] [address]. [place], [place], [address] BASIC METABOLIC Collected: 09/18/2018 Status: F Source: [place] PROFILE (BMP) 5:25 PM [facility] REPOSITORY TYPE CODE TESTS RESULT OUT OF RANGE REFERENCE UNITS LAB L501.0100 74-106 mg/dL High GLU 349 Result Comment: Glucose result greater than or equal to 200 mg/dL suggests DIABETES MELLITUS per A.D.A. criteria. Please note revised GLUCOSE reference range effective 2017. LAB L501.1000 7-18 mg/dL Normal BUN 16 LAB L501.1100 0.55-1.02 mg/dL Normal CREAT,SERUM 0.98 Result Comment: The validity of the calculated GFR AND GFRAA in patients over 70 years has not been determined. Clinical correlation is essential. LAB L501.1110 >60 mL/min Normal EST GFR 61 Result Comment: Non- GFR Calc LAB L501.1115 >60 mL/min Normal EST GFR - AA 74 Result Comment: GFR Calc LAB L501.1255 ml/min Normal Estimated CRCL 47.34 LAB L501.1300 10-20 RATIO Normal BUN/CRE 16.4 LAB L501.2200 8.5-10 mg/dL Normal .1 CA 9.6 LAB L501.5300 136-14 mmol/L Normal 5 NA 137 LAB L501.5600 3.5-5. mmol/L Normal 1 K 3.9 LAB L501.5900 98-107 mmol/L Normal CL 99 LAB L501.6100 21.0-3 mmol/L Normal 2.0 CO2 28.0 LAB L501.6200 5-15 Normal GAP 10 Performed By: #### L500.2500, L501.4010 #### [facility] [address] [place], [address] TROPONIN-I Collected: 09/18/2018 Status: F Source: [place] 5:25 PM [facility] REPOSITORY TYPE CODE TESTS RESULT OUT OF RANGE REFERENCE UNITS LAB L501.4010 <0.045 ng/mL Normal < 0.015 TROPONIN-I Result Comment: TROPONIN-I EXPECTED VALUES <0.045 Negative 0.045 - 0.590 Consistent with Cardiac Damage > OR = 0.600 Critical Value Not every elevated troponin is indicative of VT. These values should be used with clinical judgement in examining the patient's clinical picture for diagnosis. To establish a diagnosis of VT versus myocardial injury, there must be a demonstrated rise and/or fall in the troponin values, in addition to ischemic symptoms, EKG changes, new regional wall motion abnormality, and/or angiographical evidence. PLEASE NOTE: REFERENCE RANGES EDITED 18 Performed By: #### L500.2500, L501.4010 #### [facility] [address] [place], [address] CHEST PA AND LATERAL Observed: 09/18/2018 Status: F Source: [place] 5:03 PM [facility] Imaging Services [address] [place] [address] Chest PA and Lateral MR#: [id number] Acct: [id number] Name: DANIELLE MARY Rep #: [id number] : 1955 F 63 From: Walker Vale MD PCP: Gato Salcedo MD Status: [facility] ER Study: Chest PA and Lateral Date of Exam: 09/18/18 Exam# [id number] Ordering Dr: Cezar Hoffman MD STUDY: X-RAY CHEST REASON FOR EXAM: Female, 63 years old. Short of breath and chest pain TECHNIQUE: PA and lateral COMPARISON: September 15, 2018 FINDINGS: Lungs are clear and well expanded.. There is no demonstrated pleural abnormality. Normal size heart. Normal mediastinum and jovan. Normal visualized pulmonary arteries. Normal visualized aortic arch and descending thoracic aorta. Normal visualized thoracic spine. Normal visualized ribs, clavicles, and shoulders. There is no demonstrated abnormality of the visualized soft tissue structures of the upper abdomen. Improved aeration in the lower lobes since prior study RAD/Chest PA and Lateral IMPRESSION: No acute cardiopulmonary pathology Electronically Signed: Walker Vale MD at 18:00 EST , Service support , CC: CEZAR HOFFMAN MD; Gato Salcedo MD School Psychologist Assistant: Signed 12 LEAD ELECTROCARDIOGRAM Observed: 09/18/2018 Status: F Source: [place] 1:59 PM [facility] Cardiovascular Services [address] [place], [place] [address] [address] 12 Lead EKG 09/15/18 1618 MR#: [id number] Acct: [id number] Name: DANIELLE MARY Rep #: [id number] : 1955 63 From: Charlie Hernandez MD Attending Dr: Status: DEP ER Ordering Dr: Darlin Chavarria MD Date: 09/15/18 Location: ED Sex: F C Admitted: Test Reason : CHEST PAIN Blood Pressure : / mmHG Vent. Rate : 097 BPM Atrial Rate : 097 BPM P-R Int : 142 ms QRS Dur : 078 ms QT Int : 374 ms P-R-T Axes : 043 042 034 degrees QTc Int : 474 ms Normal sinus rhythm Nonspecific ST abnormality Abnormal ECG Confirmed by CHARLIE HERNANDEZ MD ([id number]), web content editor ELI HASKINS ([id number]) on 09/18/2018 1:58:59 PM Referred By: JAGUAR Confirmed By:CHARLIE HERNANDEZ MD 09/18/18 1359 Date Charlie Hernandez MD CC: Darlin Chavarria MD; Gato Salcedo MD Signed EMERGENCY DEPARTMENT Observed: 09/15/2018 Status: F Source: [place] SUMMARY 9:45 PM [facility] Medical Records Department [address] [place] [address] Emergency Department Summary 09/15/18 1639 MR#: [id number] Acct: [id number] Name: DANIELLE MARY Rep #: [id number] : 1955 63 From: Darlin Chavarria MD PCP: Gato Salcedo MD Status: REG ER - ER Visit Summary Date of Service: 09/15/18 Chief Complaint: Chest pain History of Present Illness: The patient is a 63 F presenting with chest pain. Patient states this started approximately 1 hour prior to arrival. She was upset with her daughter. She states her daughter told her lies about her. She was thinking about this and started having chest pain. She has associated nausea and shortness of breath. She denies lightheadedness or syncope. Denies vomiting or diaphoresis. She has multiple risk factors including hypertension, diabetes, hyperlipidemia, previous smoking, family history of early heart disease. She has previous stents. She had a stress test in March of this year which was normal. Physical Examination: Vitals are stable. Patient is afebrile. Alert no acute distress. HEENT exam is unremarkable. Neck is supple. Lungs are clear and equal bilaterally. Heart is regular rate and rhythm. Abdomen is soft nontender nondistended. Extremities are unremarkable. Skin is warm and dry. No focal neurologic deficit. Remainder of exam is unremarkable. Emergency Department Course and Treatment: Patient was given aspirin, fentanyl. EKG is sinus rate of 97. CBC unremarkable. D-dimer is elevated at 0.62. CTA chest shows bibasilar groundglass opacities. Differential considerations include infectious, inflammatory, neoplastic etiologies. Patient states she has an upcoming appointment with pulmonology. She will discuss these findings with pulmonology. Chest x-ray shows cardiomegaly, no acute process. Chemistries show BUN 20, glucose 594. Troponin is negative. She was given insulin subcutaneously. Repeat BGT 310, 187. Repeat troponin is negative. Patient feels much improved on reevaluation and would like to go home. She is advised to follow up with her primary care physician. Advised return to ED if worsening complaints. Disposition: Discharge home Impression: Atypical chest pain This note was generated with [employer] dictation software. It may contain incorrect words, spelling, and punctuation that were not noted in review of the chart prior to signing ED Disposition - Plan for ED Patient: Chief Complaint: Chest Pain Instructions: ED Chest Pain Atypical Unkn Cause Referrals: Gato Salcedo MD [Primary Care Provider] - What to do if you have Problems For any increased pain, shortness of breath, bleeding, nausea or vomiting, chest pain, or any unexpected problems, contact your Primary Care Provider. Call [facility] ([phone]) or report to the closest Emergency Room. Call 911 if necessary. 09/15/182144 <Electronically signed by Darlin Chavarria MD> Date Darlin Chavarria MD Cosigner Signature (If Indicated): Date CC: Gato Salcedo MD DISCHARGE INSTRUCTION Observed: 09/15/2018 Status: F Source: [place] 9:41 PM [facility] Medical Records Department [address] [place] [address] Discharge Instruction 09/15/182140 MR#: [id number] Acct: [id number] Name: DANIELLE MARY Rep #: [id number] : 1955 63 From: Darlin Chavarria MD PCP: Gato Salcedo MD Status: REG ER ED Disposition - Plan for ED Patient: Chief Complaint: Chest Pain Instructions: ED Chest Pain Atypical Unkn Cause Referrals: Gato Salcedo MD [Primary Care Provider] - What to do if you have Problems For any increased pain, shortness of breath, bleeding, nausea or vomiting, chest pain, or any unexpected problems, contact your Primary Care Provider. Call [facility] ([phone]) or report to the closest Emergency Room. Call 911 if necessary. 09/15/182140 <Electronically signed by Darlin Chavarria MD> Date Darlin Bishop Signature (If Indicated): Date CC: Gato Salcedo MD BEDSIDE GLUCOSE Collected: 09/15/2018 Status: F Source: [place] 8:56 PM [facility] REPOSITORY TYPE CODE TESTS RESULT OUT OF REFERENCE UNITS RANGE LAB L501.080 70-110 mg/dL High BEDSIDE GLU 187 Result Comment: MANAGEMENT OF PATIENT CARE PER NURSING PROTOCOL Performed By: #### L501.080 #### [facility] Point of Care [address] [place] [address]. [place], [place] [id number] TROPONIN-I Collected: 09/15/2018 Status: F Source: [place] 8:02 PM [facility] REPOSITORY Order Comment: 'TROP' Serial specimen #1, #2 or #3: 2 TYPE CODE TESTS RESULT OUT OF RANGE REFERENCE UNITS LAB L501.4010 <0.045 ng/mL Normal < 0.015 TROPONIN-I Result Comment: TROPONIN-I EXPECTED VALUES <0.045 Negative 0.045 - 0.590 Consistent with Cardiac Damage > OR = 0.600 Critical Value Not every elevated troponin is indicative of VT. These values should be used with clinical judgement in examining the patient's clinical picture for diagnosis. To establish a diagnosis of VT versus myocardial injury, there must be a demonstrated rise and/or fall in the troponin values, in addition to ischemic symptoms, EKG changes, new regional wall motion abnormality, and/or angiographical evidence. PLEASE NOTE: REFERENCE RANGES EDITED 18 Performed By: #### L501.4010 #### [facility] [address] [place] [address]. [place], [address] BEDSIDE GLUCOSE Collected: 09/15/2018 Status: F Source: [place] 7:37 PM [facility] REPOSITORY TYPE CODE TESTS RESULT OUT OF REFERENCE UNITS RANGE LAB L501.080 70-110 mg/dL High BEDSIDE GLU 310 Result Comment: MANAGEMENT OF PATIENT CARE PER NURSING PROTOCOL Performed By: #### L501.080 #### [facility] Point of Care [address] [place] [address] BEDSIDE GLUCOSE Collected: 09/15/2018 Status: F Source: [place] 6:42 PM [facility] REPOSITORY TYPE CODE TESTS RESULT OUT OF REFERENCE UNITS RANGE LAB L501.080 70-110 mg/dL High alert BEDSIDE GLU > 500 Result Comment: MANAGEMENT OF PATIENT CARE PER NURSING PROTOCOL Performed By: #### L501.080 #### [facility] Point of Care [address] [place] [address] CTA CHEST W/WO Observed: 09/15/2018 Status: F Source: [place] CONTRAST 5:50 PM [facility] Imaging Services [address] [place] [address] CTA Chest W/WO Contrast MR#: [id number] Acct: [id number] Name: DANIELLE MARY Rep #: [id number] : 1955 F 63 From: Norris Brice MD PCP: Gato Salcedo MD Status: REG ER Study: CTA Chest W/WO Contrast Date of Exam: 09/15/18 Exam# [id number] Ordering Dr: Darlin Chavarria MD STUDY: CTA CHEST REASON FOR EXAM: Female, 63 years old. Shortness of breath RADIATION DOSAGE (If Supplied By Facility): CTDIvol = ( 12.49 ) mGy, DLP = ( 535.26 ) mGycm TECHNIQUE: The examination was performed with the intravenous administration of 75ML ml of Isovue 370 contrast material. Post-processing of the angiographic images was performed, with multiplanar reformation and 3D reconstruction. Individualized dose optimization techniques were used for this CT. COMPARISON: Chest x-ray September 15, 2018 and CTA chest June 30, 2015 FINDINGS: Normal enhancement of the main pulmonary artery and right and left pulmonary arteries. Normal enhancement of the bilateral peripheral pulmonary arteries. There is no demonstrated pulmonary embolism. Normal thoracic aorta and visualized great vessels. There is no demonstrated aortic dissection. Normal heart and pericardium. Coronary artery stent in LAD. Normal mediastinum. Normal hilar regions. Normal visualized trachea and bronchi. Bibasilar groundglass opacities. Normal pulmonary parenchyma. Normal pleura. Normal chest wall structures. Normal osseous structures. Normal visualized upper abdomen. CT/CTA Chest W/WO Contrast IMPRESSION: Bibasilar groundglass opacities. Differential considerations include infectious, inflammatory, neoplastic etiologies. Electronically Signed: Norris Brice MD at 19:14 EST , Service support , CC: Darlin Chavarria MD; Gato Salcedo MD School Psychologist Assistant: Signed CBC W/DIFF, AUTOMATED Collected: 09/15/2018 Status: F Source: [place] 4:56 PM [facility] REPOSITORY TYPE CODE TESTS RESULT OUT OF RANGE REFERENCE UNITS LAB L100.1000 4.4-11.0 K/mm3 Normal WBC 7.6 LAB L100.1200 4.2-5.4 M/mm3 Low RBC 4.05 LAB L100.1300 12.0-15.0 g/dl Normal HGB 12.5 LAB L100.1400 37-47 % Low HCT 36.8 LAB L100.1500 81-99 fL Normal MCV 90.9 LAB L100.1600 27.0-32.0 pg Normal MCH 30.9 LAB L100.1700 32-36 g/gl Normal MCHC 34.0 LAB L100.1810 11.6-14.6 % Normal RDW CV 12.6 LAB L100.1820 35.1-43.9 fl Normal RDW SD 41.8 LAB L100.1900 150-450 K/mm3 Normal PLT 258 LAB L100.2000 6.2-12.0 fl Normal MPV 10.8 LAB L100.2100 47-70 % Normal NEUT% 53.8 LAB L100.2200 19-41 % Normal LY% 36.3 LAB L100.2300 0-10 % Normal MONO% 6.4 LAB L100.2400 0-5 % Normal EO% 2.9 LAB L100.2500 0-1 % Normal BASO% 0.3 LAB L100.2550 0.0-0.9 % Normal IM GRAN % 0.300 Result Comment: IG% - Immature Granulocytes (promyelocytes, myelocytes and metamyelocytes) > 1% indicates that a LEFT SHIFT is Present. LAB L100.2620 2.0-7.7 X10 3/uL Normal Absolute Neut 4.1 LAB L100.2720 0.83-4.51 X10 3/ul Normal Absolute Lymph 2.77 Performed By: #### L100.0100 #### [facility] [address] [place], [address] D-DIMER QUANTITATIVE Collected: 09/15/2018 Status: F Source: [place] (DVT/PE) 4:56 PM [facility] REPOSITORY TYPE CODE TESTS RESULT OUT OF RANGE REFERENCE UNITS LAB L300.8000 0.27-0.49 FEU/ug/m High alert D-DIMER 0.62 QUANT Result Comment: D-Dimer ELEVATED (>0.49): Additional studies and clinical assessments are indicated to conclude diagnosis of: Deep Vein Thrombosis (DVT) or Pulmonary Embolism (PE) CRITICAL VALUE VERIFIED. CALLED TO TARA DIGN 09/15/18 1743 Jadon Sarmiento. RESULTS READ BACK BY TARA . Performed By: #### L300.8000 #### [facility] [address] [place], [address] BASIC METABOLIC Collected: 09/15/2018 Status: F Source: LI PROFILE (BMP) 4:56 PM [facility] REPOSITORY TYPE CODE TESTS RESULT OUT OF RANGE REFERENCE UNITS LAB L501.0100 74-106 mg/dL High alert GLU 594 Result Comment: Glucose result greater than or equal to 200 mg/dL suggests DIABETES MELLITUS per A.D.A. criteria. Please note revised GLUCOSE reference range effective 2017. LAB L501.1000 7-18 mg/dL High BUN 20 LAB L501.1100 0.55-1.02 mg/dL Normal CREAT,SERUM 0.94 Result Comment: The validity of the calculated GFR AND GFRAA in patients over 70 years has not been determined. Clinical correlation is essential. LAB L501.1110 >60 mL/min Normal EST GFR 63 Result Comment: Non- GFR Calc LAB L501.1115 >60 mL/min Normal EST GFR - AA 77 Result Comment: GFR Calc LAB L501.1255 ml/min Normal Estimated CRCL 49.36 LAB L501.1300 10-20 RATIO High BUN/CRE 21.2 LAB L501.2200 8.5-10 mg/dL Low .1 CA 8.2 LAB L501.5300 136-14 mmol/L Low 5 NA 135 Result Comment: WALLY MONTGOMERY WITH CRITICAL GLUC BY [facility] 09-15-18 AT 1804PM READ BACK BY SAME LAB L501.5600 3.5-5.1 mmol/L Normal K 3.9 LAB L501.5900 98-107 mmol/L Normal CL 101 LAB L501.6100 21.0-32.0 mmol/L Normal CO2 23.0 LAB L501.6200 5-15 Normal GAP 11 Performed By: #### L500.2500, L501.4010 #### [facility] [address] [place], [place], [address] TROPONIN-I Collected: 09/15/2018 Status: F Source: [place] 4:56 PM [facility] REPOSITORY TYPE CODE TESTS RESULT OUT OF RANGE REFERENCE UNITS LAB L501.4010 <0.045 ng/mL Normal < 0.015 TROPONIN-I Result Comment: TROPONIN-I EXPECTED VALUES <0.045 Negative 0.045 - 0.590 Consistent with Cardiac Damage > OR = 0.600 Critical Value Not every elevated troponin is indicative of VT. These values should be used with clinical judgement in examining the patient's clinical picture for diagnosis. To establish a diagnosis of VT versus myocardial injury, there must be a demonstrated rise and/or fall in the troponin values, in addition to ischemic symptoms, EKG changes, new regional wall motion abnormality, and/or angiographical evidence. PLEASE NOTE: REFERENCE RANGES EDITED 18 Performed By: #### L500.2500, L501.4010 #### [facility] [address] [place], [place], [address] CHEST 1 VIEW Observed: 09/15/2018 Status: F Source: [place] (PORTABLE) 4:37 PM [facility] REPOSITORY [facility] Imaging Services [address] [place] [address] Chest 1 View (Portable) MR#: [id number] Acct: [id number] Name: DANIELLE MARY Rep #: [id number] : 1955 F 63 From: Bacilio Romano MD PCP: Gato Salcedo MD Status: REG ER Study: Chest 1 View (Portable) Date of Exam: 09/15/18 Exam# [id number] Ordering Dr: Darlin Chavarria MD STUDY: X-RAY CHEST REASON FOR EXAM: Female, 63 years old. Chest pain. TECHNIQUE: Single frontal view of the chest. COMPARISON: August 09, 2018 FINDINGS: There is stable low volume inspiration. There is no demonstrated pleural abnormality. There is borderline cardiomegaly unchanged. A stent is noted and is unchanged. Normal mediastinum and jovan. Normal visualized pulmonary arteries. There is atherosclerotic calcification of the aortic arch with tortuosity. Normal visualized thoracic spine. Normal visualized ribs, clavicles, and shoulders. There is no demonstrated abnormality of the visualized soft tissue structures of the upper abdomen. RAD/Chest 1 View (Portable) IMPRESSION: Stable borderline cardiomegaly with low volume inspiration. No new or acute finding. Electronically Signed: Bacilio Romano MD at 17:21 EST , Service support , CC: Darlin Chavarria MD; Gato Salcedo MD School Psychologist Assistant: Signed Observed: 08/30/2018 Status: F Source: [place] ENTERIC PATHOGEN 12:00 AM [facility] PANEL STOOL REPOSITORY EP PANEL STOOL Not detected for Campylobacter group, Salmonella species, Shigella species, Vibrio Group, Yersinia enterocolitica, EHEC (Shiga Toxin 1, Shiga Toxin 2), Norovirus Gl/Gll, and Rotavirus A. Other common stool pathogens are not detected on this panel include: Aeromonas/Plesiomonas or parasites. Order testing for these organisms separately if suspected. This is an amplified DNA test which makes it both specific and sensitive. Normal Reference Range = Not Detected CAMPYLOBACTER Not Detected Salmonella Not Detected Shigella sp. Not Detected Shiga Toxin Not Detected Yersinia Not Detected VIBRIO Not Detected Norovirus Not Detected Rotavirus Not Detected Performed By: #### M100.637, M100.0605, M100.7900 #### [facility] [address] [place], [address] STOOL Observed: 08/30/2018 Status: F Source: [place] LACTOFERRIN/WBC 12:00 AM [facility] REPOSITORY Stool Lacto/WBC Test not performed Performed By: #### M100.637, M100.0605, M100.7900 #### [facility] [address] [place], [address] Observed: 08/30/2018 Status: F Source: [place] STOOL OCCULT BLOOD 12:00 AM [facility] IFOB REPOSITORY STOB iFOB Test not performed Performed By: #### M100.637, M100.0605, M100.7900 #### [facility] [address] [place], [place], [address] Observed: 08/30/2018 Status: F Source: [place] OVA AND PARASITES 12:00 AM [facility] REPOSITORY O + P OVA AND PARASITES EXAM, ROUTINE These results were obtained using wet preparation(s) and trichrome stained smear. This test does not include testing for Crytosporidium parvum, Cyclospora, or Microsporidia. TESTING PERFORMED AT [facility]. ORIGINAL REPORT ON FILE IN LAB CONTAINS ADDITIONAL TEST SITE INFORMATION. Ova/Parasite Exam NO OVA, CYSTS, OR PARASITES FOUND. Performed By: #### M600.5000 #### [facility] [address] [place], [place], [address] FECAL FAT, QUALITATIVE Collected: 08/30/2018 Status: F Source: [place] 12:00 AM [facility] REPOSITORY TYPE CODE TESTS RESULT OUT OF RANGE REFERENCE UNITS LAB L7000.0400 . Normal FATS, NEUTRAL Normal Result Comment: Normal (<60 Droplets/HPF) LAB L7000.0500 . Normal FATS, TOTAL Normal Result Comment: Normal (<100 Droplets/HPF) Performed at: [facility] [id number] Supervisor Dry Paste: Quoc Alfaro PhD, Phone: [phone] Performed By: #### L7000.0300 #### [facility] (refer to report for specific site) refer to report for address and phone number HEMOGLOBIN A1C Collected: 08/25/2018 Status: F Source: [place] 2:27 PM [facility] REPOSITORY TYPE CODE TESTS RESULT OUT OF RANGE REFERENCE UNITS LAB L501.9985 4.2-6.3 % High HGB A1C 11.2 Performed By: #### L501.9985 #### [facility] [address] [facility] [address] [place], [place], [address] URINALYSIS, COMPLETE Collected: 08/25/2018 Status: F Source: [place] 2:27 PM [facility] REPOSITORY Order Comment: Comments: [id number] PLASMA FROZEN PFL How was Urine Obtained? CLEAN CATCH TYPE CODE TESTS RESULT OUT OF RANGE REFERENCE UNITS LAB L400.3000 Yellow COLOR Normal Yellow LAB L400.3050 Clear Normal CLARITY Sl. Cloudy LAB L400.3200 Normal mg/dl High GLUCOSE, UR 1000 LAB L400.3300 Negative mg/dL Normal BILIRUBIN URINE Negative LAB L400.3400 Negative mg/dl High 5 KETONE UR LAB L400.3465 1.002-1.030 Normal SP.GR. DIPSTX 1.010 LAB L400.3550 5.0 - 8.0 pH UR Normal 5.0 LAB L400.3600 Negative mg/dl PROT Normal DIPSTX Negative LAB L400.3700 Normal mg/dl Normal UROBILI Normal LAB L400.3750 Negative Normal NITRITE UR Negative LAB L400.3780 Negative /ul Normal OCCULT BLOOD-UR Negative LAB L400.3800 Negative /ul High LEUK 25 ESTERASE LAB L400.4050 0-5 /hpf WBC Normal 5-10 SEEN LAB L400.4100 0-5 /hpf 0 Normal RBC-UA SEEN LAB L400.4150 5-10 /hpf SQUAM Normal EPI 0-5 SEEN LAB L400.4300 None Seen /hpf 0 Normal BACTERIA SEEN LAB L400.4350 <or=2+ /hpf 0 Normal MUCUS, URINE SEEN Performed By: #### L400.0001 #### [facility] [address] [place], [address] VITAMIN B12 Collected: 08/25/2018 Status: F Source: [place] 2:27 PM [facility] REPOSITORY TYPE CODE TESTS RESULT OUT OF RANGE REFERENCE UNITS LAB L503.0105 211-911 pg/mL Normal Vitamin B12 400 Performed By: #### L503.0105 #### [facility] [place], [address] MICROALB:CREAT Collected: 08/25/2018 Status: F Source: [place] RATIO,RANDOM UR 2:27 PM [facility] REPOSITORY TYPE CODE TESTS RESULT OUT OF RANGE REFERENCE UNITS LAB L501.1200 NO RANGE EST. mg/dL Normal UR CREAT 56.70 LAB L502.0500 NO RANGE EST. mg/L Normal 5.7 MICROALBUMIN ,UR LAB L502.0600 <30 mg/g CRE mg/g CRE Normal 10.1 MALB:CREAT Performed By: #### L502.0250 #### [facility] [address] [place], [address] CBC W/DIFF, AUTOMATED Collected: 08/25/2018 Status: F Source: [place] 2:27 PM [facility] REPOSITORY TYPE CODE TESTS RESULT OUT OF RANGE REFERENCE UNITS LAB L100.1000 4.4-11.0 K/mm3 Normal WBC 8.7 LAB L100.1200 4.2-5.4 M/mm3 Low RBC 4.06 LAB L100.1300 12.0-15.0 g/dl Normal HGB 12.8 LAB L100.1400 37-47 % Normal HCT 37.1 LAB L100.1500 81-99 fL Normal MCV 91.4 LAB L100.1600 27.0-32.0 pg Normal MCH 31.5 LAB L100.1700 32-36 g/gl Normal MCHC 34.5 LAB L100.1810 11.6-14.6 % Normal RDW CV 12.0 LAB L100.1820 35.1-43.9 fl Normal RDW SD 39.6 LAB L100.1900 150-450 K/mm3 Normal PLT 244 LAB L100.2000 6.2-12.0 fl Normal MPV 11.2 LAB L100.2100 47-70 % Normal NEUT% 53.6 LAB L100.2200 19-41 % Normal LY% 35.0 LAB L100.2300 0-10 % Normal MONO% 6.2 LAB L100.2400 0-5 % Normal EO% 4.6 LAB L100.2500 0-1 % Normal BASO% 0.3 LAB L100.2550 0.0-0.9 % Normal IM GRAN % 0.300 Result Comment: IG% - Immature Granulocytes (promyelocytes, myelocytes and metamyelocytes) > 1% indicates that a LEFT SHIFT is Present. LAB L100.2620 2.0-7.7 X10 3/uL Normal Absolute Neut 4.7 LAB L100.2720 0.83-4.51 X10 3/ul Normal Absolute Lymph 3.06 Performed By: #### L100.0100 #### [facility] [address] [place], [place], [address] COMPREHENSIVE METABOLIC Collected: 08/25/2018 Status: F Source: [facility] 2:27 PM [facility] REPOSITORY Order Comment: Comments: [id number] PLASMA FROZEN PFL Is Patient Taking Vitamins or Folic Acid Supplements? N TYPE CODE TESTS RESULT OUT OF RANGE REFERENCE UNITS LAB L501.0100 74-106 mg/dL High GLU 274 Result Comment: Glucose result greater than or equal to 200 mg/dL suggests DIABETES MELLITUS per A.D.A. criteria. Please note revised GLUCOSE reference range effective 2017. LAB L501.1000 7-18 mg/dL Normal BUN 12 LAB L501.1100 0.55-1.02 mg/dL Normal CREAT,SERUM 0.85 Result Comment: The validity of the calculated GFR AND GFRAA in patients over 70 years has not been determined. Clinical correlation is essential. LAB L501.1110 >60 mL/min Normal EST GFR 71 Result Comment: Non- GFR Calc LAB L501.1115 >60 mL/min Normal EST GFR - AA 86 Result Comment: GFR Calc LAB L501.1300 10-20 RATIO Normal BUN/CRE 14.1 LAB L501.1500 6.4-8.2 g/dL T Normal PROT 7.1 LAB L501.1800 3.2-5.0 g/dL Normal ALB 3.9 LAB L501.1950 2.2-4.2 g/dL Normal GLOB 3.2 LAB L501.2000 0.9-2.4 RATIO Normal A/G 1.2 LAB L501.2200 8.5-10.1 mg/dL CA Normal 9.0 LAB L501.4100 15-37 U/L Normal AST 15 LAB L501.4305 45-117 U/L Normal ALK P 69 LAB L501.4405 13-56 U/L Normal ALT 26 LAB L501.4600 0.20-1.00 mg/dL T Normal BILI 0.30 LAB L501.5300 136-145 mmol/L NA Normal 136 LAB L501.5600 3.5-5.1 mmol/L K Normal 4.8 LAB L501.5900 98-107 mmol/L CL Normal 103 LAB L501.6100 21.0-32.0 mmol/L Normal CO2 25.0 LAB L501.6200 5-15 Normal GAP 8 Performed By: #### L500.4050, L500.4100, L501.9520, L506.0250 #### [facility] [address] [place], [place], [id number] LIPID PROFILE Collected: 08/25/2018 Status: F Source: [place] 2:27 PM [facility] REPOSITORY Order Comment: Comments: [id number] PLASMA FROZEN PFL Is Patient Taking Vitamins or Folic Acid Supplements? N TYPE CODE TESTS RESULT OUT OF RANGE REFERENCE UNITS LAB L501.4900 200 mg/dL Normal CHOL 187 Result Comment: <200 mg/dL Desirable 200-240 mg/dL Borderline >240 mg/dL High Risk LAB L501.5000 mg/dL High TRIG 249 Result Comment: The drugs N-Acetylcysteine and Metamizole may falsely depress this assay. Serum Triglycerides Reference Interval Normal <150 mg/dL Borderline high 150 - 199 mg/dL High 200 - 499 mg/dL Very High > or = 500 mg/dL LAB L501.6400 mg/dL Normal HDL 51 Result Comment: The drugs N-Acetylcysteine and Metamizole may falsely depress this assay. Reference Range HDL <40 mg/dL Low HDL Cholesterol HDL >or= 60 mg/dL High HDL Cholesterol LAB L501.6500 0-130 mg/dL Normal LDL 86 LAB L501.6600 5-40 mg/dL High VLDL 50 Performed By: #### L500.4050, L500.4100, L501.9520, L506.0250 #### [facility] [address] [place], [place], [address] THYROID STIM HORMONE Collected: 08/25/2018 Status: F Source: [place] (TSH) 2:27 PM [facility] REPOSITORY Order Comment: Comments: B6#[id number] PLASMA FROZEN PFL Is Patient Taking Vitamins or Folic Acid Supplements? N TYPE CODE TESTS RESULT OUT OF RANGE REFERENCE UNITS LAB L501.9520 0.358-3.74 uIU/mL High TSH 4.60 Performed By: #### L500.4050, L500.4100, L501.9520, L506.0250 #### [facility] [address] [place], [place], [address] FOLATES, (FOLIC ACID) Collected: 08/25/2018 Status: F Source: [place] 2:27 PM [facility] REPOSITORY Order Comment: Comments: B6#4655 PLASMA FROZEN PFL Is Patient Taking Vitamins or Folic Acid Supplements? N TYPE CODE TESTS RESULT OUT OF RANGE REFERENCE UNITS LAB L506.0250 3.1-55.4 ng/mL Normal FOLATES 18.80 Performed By: #### L500.4050, L500.4100, L501.9520, L506.0250 #### [facility] [address] [place], [address] VITAMIN B1, THIAMINE Collected: 08/25/2018 Status: F Source: [place] 2:27 PM [facility] REPOSITORY Order Comment: Comments: B6#4655 PLASMA FROZEN PFL TYPE CODE TESTS RESULT OUT OF RANGE REFERENCE UNITS LAB L3300.8000 66.5-200.0 nmol/L Normal VIT B1 113.2 Result Comment: This test was developed and its performance characteristics determined by [facility]. It has not been cleared or approved by the Food and Drug Administration. Performed at: [address] [id number] Supervisor Dry Paste: Juan Acevedo MD, Phone: [phone] Performed By: #### L3300.8000 #### [facility] (refer to report for specific site) refer to report for address and phone number MISCELLANEOUS LAB Collected: 08/25/2018 Status: F Source: [place] PROCEDURE 2:27 PM [facility] REPOSITORY Order Comment: Comments: B6#4655 PLASMA FROZEN PFL Test(s) Ordered: B6#4655 PLASMA FROZEN PFL TYPE CODE TESTS RESULT OUT OF RANGE REFERENCE UNITS LAB L801.1541 Normal [facility] [place] Result Comment: TEST RESULT UNITS REFERENCE INTERVAL VITAMIN B6, PLASMA 3.1 ug/L 2.0 - 32.8 DISCLAIMER: This test was developed and its performance characteristics determined by [facility]. It has not been cleared or approved by the U.S. Food and Drug Administration. TESTING PERFORMED AT [facility]. ORIGINAL REPORT ON FILE IN LAB CONTAINS ADDITIONAL TEST SITE INFORMATION. Performed By: #### L801.1541 #### [place] [facility] [address] [place], [address] LITHIUM Collected: 08/25/2018 Status: F Source: [place] 12:41 PM [facility] REPOSITORY Order Comment: Date of Last Dose: 08/24/18 Time of Last Dose: 0800 TYPE CODE TESTS RESULT OUT OF RANGE REFERENCE UNITS LAB L501.9060 0.60-1.20 mmol/L Low LI 0.40 Performed By: #### L501.9060 #### [facility] [address] [place], [place], [id number] BASIC METABOLIC Collected: 08/25/2018 Status: F Source: [place] PROFILE (BMP) 12:41 PM [facility] REPOSITORY TYPE CODE TESTS RESULT OUT OF RANGE REFERENCE UNITS LAB L501.0100 74-106 mg/dL High GLU 368 Result Comment: Glucose result greater than or equal to 200 mg/dL suggests DIABETES MELLITUS per A.D.A. criteria. Please note revised GLUCOSE reference range effective 2017. LAB L501.1000 7-18 mg/dL Normal BUN 11 LAB L501.1100 0.55-1.02 mg/dL Normal CREAT,SERUM 0.97 Result Comment: The validity of the calculated GFR AND GFRAA in patients over 70 years has not been determined. Clinical correlation is essential. LAB L501.1110 >60 mL/min Normal EST GFR 62 Result Comment: Non- GFR Calc LAB L501.1115 >60 mL/min Normal EST GFR - AA 75 Result Comment: GFR Calc LAB L501.1300 10-20 RATIO Normal BUN/CRE 11.4 LAB L501.2200 8.5-10.1 mg/dL CA Normal 9.0 LAB L501.5300 136-145 mmol/L Low NA 134 LAB L501.5600 3.5-5.1 mmol/L K Normal 4.2 LAB L501.5900 98-107 mmol/L CL Normal 102 LAB L501.6100 21.0-32.0 mmol/L Normal CO2 25.0 LAB L501.6200 5-15 Normal GAP 7 Performed By: #### L500.2500, L501.9520 #### [facility] [address] [place], [address] THYROID STIM HORMONE Collected: 08/25/2018 Status: F Source: [place] (TSH) 12:41 PM [facility] REPOSITORY TYPE CODE TESTS RESULT OUT OF RANGE REFERENCE UNITS LAB L501.9520 0.358-3.74 uIU/mL High TSH 4.33 Performed By: #### L500.2500, L501.9520 #### [facility] [address] [place], [address] 12 LEAD ELECTROCARDIOGRAM Observed: 08/16/2018 Status: F Source: [place] 2:26 PM [facility] REPOSITORY [facility] Cardiovascular Services [address] [place] [address] 12 Lead EKG 08/09/181948 MR#: [id number] Acct: [id number] Name: DANIELLE MARY Rep #: [id number] : 1955 63 From: Charlie Hernandez MD Attending Dr: Status: DEP ER Ordering Dr: Sam Sargent MD Date: 08/09/18 Location: ED Sex: F C Admitted: Test Reason : CP Blood Pressure : / mmHG Vent. Rate : 092 BPM Atrial Rate : 092 BPM P-R Int : 152 ms QRS Dur : 074 ms QT Int : 374 ms P-R-T Axes : 043 012 031 degrees QTc Int : 462 ms Normal sinus rhythm Normal ECG Confirmed by MARY BARFIELD, CHARLIE ([id number]), web content editor ELI HASKINS ([id number]) on 08/16/2018 2:25:52 PM Referred By: DR RUSSELL Confirmed By:CHARLIE HERNANDEZ MD 08/16/18 1425 Date Charlie Hernandez MD CC: Sam Sargent MD; Gato Salcedo MD Signed GASTRIC EMPTYING Observed: 08/16/2018 Status: F Source: [place] STUDY 11:10 AM [facility] REPOSITORY [facility] Imaging Services [address] [place] [address] Gastric Emptying Study MR#: [id number] Acct: [id number] Name: NIKITA MARYROMY Moss Rep #: [id number] : 1955 F 63 From: Dany Carr DO PCP: Gato Salcedo MD Status: REG CLI Study: Gastric Emptying Study Date of Exam: 08/16/18 Exam# [id number] Ordering Dr: Gato Salcedo MD CLINICAL: 63-year-old female with history of early satiety. SEMI-SOLID PHASE 99m Tc SULFUR COLLOID GASTRIC EMPTYING STUDY COMPARISON: None available FINDINGS: The patient was administered 1.1 mCi of 99m Tc sulfur colloid mixed with oatmeal and consumed per os. Image acquisitions in the anterior-posterior projections for a total of 60 minutes. There is prompt visualization of the stomach. There is no gastroesophageal reflux identified. The T1/2 linear fit was calculated to be 35.14 minutes, (Normal: 12-56 minutes). NM/Gastric Emptying Study IMPRESSION: 1. NORMAL 99m Tc sulfur colloid semi-solid phase (oatmeal) gastric emptying imaging examination. A. There is normal and preserved semi-solid phase gastric emptying compared to normal controls. (Darron et al, J Nucl Med Tech 38: 186, 2010). Electronically Signed: Dany Carr DO at 10:54 EST Tel , Service support , CC: Gato Salcedo MD School Psychologist Assistant: Signed EMERGENCY DEPARTMENT Observed: 08/10/2018 Status: F Source: [place] SUMMARY 12:22 AM [facility] REPOSITORY [facility] Medical Records Department [address] [place] [address] Emergency Department Summary 08/09/186 MR#: [id number] Acct: [id number] Name: DANIELLE MARY Rep #: [id number] : 1955 63 From: Sam Sargent MD PCP: Gato Salcedo MD Status: DEP ER - ER Visit Summary Date of Service: 08/09/18 Chief Complaint: Chest pain History of Present Illness: The patient is a 63 F with chest pain since 5:30 PM today. It is substernal and radiates to her arm and left shoulder. Associate with nausea and vomiting. Patient has a history of VT, diabetes, hypertension, hyperlipidemia, and COPD. Nothing seemed to bring this on. No pain with exertion. Nothing seems to make it better. Patient had a negative stress test in March of this year. She has been compliant with her medications. Physical Examination: Vital signs normal. Afebrile. No acute distress. Sitting comfortably. Skin normal in color without pallor or diaphoresis. Heart regular rate and rhythm. Lungs clear bilaterally. Abdomen soft and nontender. Calves soft and supple. Pulses strong and equal. Test Results: EKG shows sinus rhythm at a rate of 92. No sign of acute ischemia or infarction pattern. CBC normal. Glucose 235. Lipase 427. Coags normal. Troponin normal. Chest x-ray showed chronic findings, nothing acute. Emergency Department Course and Treatment: Patient had an EKG. Placed on a monitor. Treated with aspirin and fentanyl while awaiting results. Patient's story was concerning. I reviewed her chart. She had a negative stress test just a few months ago. The patient says that she has been evaluated for the symptoms previously. Her workup was all fairly unremarkable. Her lipase is slightly elevated, but not consistent with pancreatitis. She has no abdominal tenderness or other GI symptoms besides nausea and vomiting. Patient would like to go home. I believe this is reasonable given her recent negative stress test. I advised her to follow-up with her doctor. Return right away for any new or worsening issues. Treatment Plan: As above Disposition: Discharge Impression: 1. Chest pain This note was generated with [employer] dictation software. It may contain incorrect words, spelling, and punctuation that were not noted in review of the chart prior to signing ED Disposition - Plan for ED Patient: Chief Complaint: Chest Pain Referrals: Gato Salcedo MD [Primary Care Provider] - What to do if you have Problems For any increased pain, shortness of breath, bleeding, nausea or vomiting, chest pain, or any unexpected problems, contact your Primary Care Provider. Call [facility] ([phone]) or report to the closest Emergency Room. Call 911 if necessary. 08/10/18 0022 <Electronically signed by Sam Sargent MD> Date Sam Sargent MD Cosigner Signature (If Indicated): Date CC: Gato Salcedo MD DISCHARGE INSTRUCTION Observed: 08/10/2018 Status: F Source: [place] 12:22 AM [facility] REPOSITORY [facility] Medical Records Department [address] [place] [address] Discharge Instruction 08/09/182129 MR#: [id number] Acct: [id number] Name: DANIELLE MARY Rep #: [id number] : 1955 63 From: Sam Sargent MD PCP: Gato Salcedo MD Status: DEP ER ED Disposition - Plan for ED Patient: Chief Complaint: Chest Pain Instructions: ED Chest Pain Atypical Unkn Cause Referrals: Gato Salcedo MD [Primary Care Provider] - What to do if you have Problems For any increased pain, shortness of breath, bleeding, nausea or vomiting, chest pain, or any unexpected problems, contact your Primary Care Provider. Call [facility] ([phone]) or report to the closest Emergency Room. Call 911 if necessary. 08/10/18 0022 <Electronically signed by Sam Sargent MD> Date Sam Bishop Signature (If Indicated): Date CC: Gato Salcedo MD CHEST 1 VIEW Observed: 08/09/2018 Status: F Source: [place] (PORTABLE) 8:02 PM [facility] Imaging Services [address] [place] [address] Chest 1 View (Portable) MR#: [id number] Acct: [id number] Name: DANIELLE MARY Rep #: [id number] : 1955 F 63 From: Vero Stauffer MD PCP: Gato Salcedo MD Status: REG ER Study: Chest 1 View (Portable) Date of Exam: 08/09/18 Exam# [id number] Ordering Dr: Sam Sargent MD STUDY: X-RAY CHEST REASON FOR EXAM: Female, 63 years old. Chest pain TECHNIQUE: 1 view COMPARISON: Prior chest radiograph of July 28, 2018 FINDINGS: Shallow inspiration with mild bibasilar atelectatic changes. There is no demonstrated pleural abnormality. Normal size heart. Visible left coronary stent unchanged from prior exam. Normal visualized pulmonary arteries. Normal visualized aortic arch and descending thoracic aorta. Normal visualized thoracic spine. Normal visualized ribs, clavicles, and shoulders. There is no demonstrated abnormality of the visualized soft tissue structures of the upper abdomen. RAD/Chest 1 View (Portable) IMPRESSION: No acute cardiopulmonary findings or changes. Negative for new consolidation, focal atelectasis or substantial pleural effusion. Mild generalized bibasilar atelectatic changes secondary to shallow inspiration. Left coronary stent unchanged in appearance. Electronically Signed: Vero Stauffer MD at 20:28 EDT , Service support , CC: Sam Sargent MD; Gato Salcedo MD School Psychologist Assistant: Signed CBC W/DIFF, AUTOMATED Collected: 08/09/2018 Status: F Source: [place] 7:53 PM [facility] REPOSITORY TYPE CODE TESTS RESULT OUT OF RANGE REFERENCE UNITS LAB L100.1000 4.4-11.0 K/mm3 Normal WBC 11.0 LAB L100.1200 4.2-5.4 M/mm3 Low RBC 3.96 LAB L100.1300 12.0-15.0 g/dl Normal HGB 12.2 LAB L100.1400 37-47 % Low HCT 36.8 LAB L100.1500 81-99 fL Normal MCV 92.9 LAB L100.1600 27.0-32.0 pg Normal MCH 30.8 LAB L100.1700 32-36 g/gl Normal MCHC 33.2 LAB L100.1810 11.6-14.6 % Normal RDW CV 12.3 LAB L100.1820 35.1-43.9 fl Normal RDW SD 41.5 LAB L100.1900 150-450 K/mm3 Normal PLT 232 LAB L100.2000 6.2-12.0 fl Normal MPV 11.0 LAB L100.2100 47-70 % Normal NEUT% 49.3 LAB L100.2200 19-41 % Normal LY% 37.9 LAB L100.2300 0-10 % Normal MONO% 8.2 LAB L100.2400 0-5 % Normal EO% 3.9 LAB L100.2500 0-1 % Normal BASO% 0.2 LAB L100.2550 0.0-0.9 % Normal IM GRAN % 0.500 Result Comment: IG% - Immature Granulocytes (promyelocytes, myelocytes and metamyelocytes) > 1% indicates that a LEFT SHIFT is Present. LAB L100.2620 2.0-7.7 X10 3/uL Normal Absolute Neut 5.4 LAB L100.2720 0.83-4.51 X10 3/ul Normal Absolute Lymph 4.18 Performed By: #### L100.0100 #### [facility] [address] [place] [address], [id number] PROTHROMBIN TIME W/INR Collected: 08/09/2018 Status: F Source: [place] 7:53 PM [facility] REPOSITORY TYPE CODE TESTS RESULT OUT OF RANGE REFERENCE UNITS LAB L300.4150 11.7-14.9 SECONDS Low PROTIME 11.3 LAB L300.4200 Normal INR 0.8 Performed By: #### L300.3900, L300.4310 #### [facility] [address] [place], [address] PARTIAL THROMBOPLAST Collected: 08/09/2018 Status: F Source: [place] TIME 7:53 PM [facility] REPOSITORY TYPE CODE TESTS RESULT OUT OF RANGE REFERENCE UNITS LAB L300.4310 24.1-36.2 Seconds Normal PTT 25.1 Performed By: #### L300.3900, L300.4310 #### [facility] [address]vin [address]ley [place], [place], [id number] COMPREHENSIVE METABOLIC Collected: 08/09/2018 Status: F Source: [place] 7:53 PM [facility] REPOSITORY TYPE CODE TESTS RESULT OUT OF RANGE REFERENCE UNITS LAB L501.0100 74-106 mg/dL High GLU 235 Result Comment: Glucose result greater than or equal to 200 mg/dL suggests DIABETES MELLITUS per A.D.A. criteria. Please note revised GLUCOSE reference range effective 2017. LAB L501.1000 7-18 mg/dL High BUN 23 LAB L501.1100 0.55-1.02 mg/dL Normal CREAT,SERUM 0.92 Result Comment: The validity of the calculated GFR AND GFRAA in patients over 70 years has not been determined. Clinical correlation is essential. LAB L501.1110 >60 mL/min Normal EST GFR 65 Result Comment: Non- GFR Calc LAB L501.1115 >60 mL/min Normal EST GFR - AA 78 Result Comment: GFR Calc LAB L501.1255 ml/min Normal Estimated CRCL 50.43 LAB L501.1300 10-20 RATIO High BUN/CRE 24.9 LAB L501.1500 6.4-8. g/dL Normal 2 T PROT 7.1 LAB L501.1800 3.2-5. g/dL Normal 0 ALB 3.7 LAB L501.1950 2.2-4. g/dL Normal 2 GLOB 3.4 LAB L501.2000 0.9-2. RATIO Normal 4 A/G 1.1 LAB L501.2200 8.5-10 mg/dL Normal .1 CA 9.2 LAB L501.4100 15-37 U/L Normal AST 20 LAB L501.4305 45-117 U/L Normal ALK P 57 LAB L501.4405 13-56 U/L Normal ALT 28 LAB L501.4600 0.20-1 mg/dL Normal .00 T BILI 0.30 LAB L501.5300 136-14 mmol/L Normal 5 NA 138 LAB L501.5600 3.5-5. mmol/L Normal 1 K 4.3 LAB L501.5900 98-107 mmol/L Normal CL 101 LAB L501.6100 21.0-3 mmol/L Normal 2.0 CO2 28.0 LAB L501.6200 5-15 Normal GAP 9 Performed By: #### L500.4050, L501.2450, L501.4010 #### [facility] [address] [place], [place], [id number] LIPASE Collected: 08/09/2018 Status: F Source: [place] 7:53 PM [facility] REPOSITORY TYPE CODE TESTS RESULT OUT OF REFERENCE UNITS RANGE LAB L501.2450 73-393 U/L High LIPASE 427 Performed By: #### L500.4050, L501.2450, L501.4010 #### [facility] [address] [place], [place], [id number] TROPONIN-I Collected: 08/09/2018 Status: F Source: [place] 7:53 PM [facility] REPOSITORY TYPE CODE TESTS RESULT OUT OF RANGE REFERENCE UNITS LAB L501.4010 <0.045 ng/mL Normal < 0.015 TROPONIN-I Result Comment: TROPONIN-I EXPECTED VALUES <0.045 Negative 0.045 - 0.590 Consistent with Cardiac Damage > OR = 0.600 Critical Value Not every elevated troponin is indicative of VT. These values should be used with clinical judgement in examining the patient's clinical picture for diagnosis. To establish a diagnosis of VT versus myocardial injury, there must be a demonstrated rise and/or fall in the troponin values, in addition to ischemic symptoms, EKG changes, new regional wall motion abnormality, and/or angiographical evidence. PLEASE NOTE: REFERENCE RANGES EDITED 18 Performed By: #### L500.4050, L501.2450, L501.4010 #### [facility] [address] [place], [place], [id number] PLAN OF CARE Observed: 08/09/2018 Status: COMPLETED Source: [place] 12:50 PM CLINIC OTHER CAMPUS REPOSITORY HNO ID: [id number] Author: April Sher (Pharmacist) Service: Pharmacy Author Type: Pharmacist Type: Plan of Care Filed: 08/09/2018 3:32 PM Note Text: PHARMACY DISCHARGE MEDICATION COUNSELING PATIENT NAME: Danielle Mary DATE of SERVICE: August 09, 2018 TIME of SERVICE: 3:32 PM The patient accepted medication counseling for the discharge medications below. The patient was given the opportunity to ask questions regarding medication indication, interactions and side effects. Discharge Medications: Discharge Medication List as of 08/09/2018 12:30 PM START taking these medications paliperidone ER (INVEGA) 3 mg 24 hr tablet Take 1 tablet by mouth once daily.Print RX, Disp-30 tablet, R-2, Long-term QUEtiapine (SEROQUEL) 50 mg tablet Take 1 tablet by mouth daily at bedtime.Print RX, Disp-30 tablet, R-2, Long-term lithium carbonate ER 300 mg CR tablet Take 1 tablet by mouth twice daily.Print RX, Disp-60 tablet, R-2, Long-term CONTINUE these medications which have NOT CHANGED vitamin B complex (B COMPLEX-VITAMIN B12 ORAL) B Complex-Vitamin B12 oralHistorical Med, Long-term cholecalciferol, Vitamin D3, (VITAMIN D3) 50,000 unit cap capsule Take 1 capsule by mouth once each week.Historical Med, R-2, Long-term metoprolol tartrate, short acting, (LOPRESSOR) 25 mg tablet Take 1 tablet by mouth twice daily.Normal, Disp-60 tablet, R-[address] (PROTONIX) 40 mg tablet Take 1 tablet by mouth daily before breakfast. Take on empty stomach, 1/2 hr before meal.Normal, Disp-30 tablet, R-5 metFORMIN (GLUCOPHAGE) 1,000 mg tablet Take 1 tablet by mouth twice daily with meals.Normal, Disp- 60 tablet, R-5 lisinopril (ZESTRIL, PRINIVIL) 5 mg tablet Take 1 tablet by mouth once daily.Normal, Disp-30 tablet, R-5 Insulin Syringe-Needle U-100 (ULTRA FINE INSULIN) 1 mL 30 gauge x 1/2 syrg Use one needle with each injection twice a day. Dx E11.9 on insulinNormal, Disp-100 Syringe, R-3 atorvastatin (LIPITOR) 40 mg tablet Take 1 tablet by mouth once daily.Normal, Disp-30 tablet, R-5 pioglitazone (ACTOS) 45 mg tablet Take 1 tablet by mouth once daily.Normal, Disp-30 tablet, R-5 furosemide (LASIX) 20 mg tablet Take 1 tablet by mouth once daily.Normal, Disp-30 tablet, R-3Dx: 1. Cough 2. PND (paroxysmal nocturnal dyspnea) Loperamide HCl (IMODIUM) 2 mg tab Take two tabs by mouth to start then one tab after each loose bowel movement. Max of 8 in 24 hrs.Normal, Disp-30 tablet, R-1Dx: 1. Gastroenteritis benzonatate (TESSALON PERLE) 100 mg capsule Take 1 capsule by mouth three times daily as needed.Normal, Disp-60 capsule, R-1Dx: 1. Viral syndrome cyanocobalamin (VITAMIN B-12) 1,000 mcg tab Take 1 tablet by mouth once daily.Normal, Disp-30 tablet, R-11Dx: 1. B12 deficiency insulin 70/30 NPH/regular units/mL (NOVOLIN 70/30) Take 18 units in AM and 21 units in PMNormal, Disp-1 Vial, R-11 colestipol (COLESTID) 1 gram tablet Take 1 tablet by mouth once daily.Normal, Disp-30 tablet, R-11 clopidogrel (PLAVIX) 75 mg tablet Take 1 tablet by mouth once daily.Historical Med, Disp-30 tablet, R-11 aspirin, enteric coated (ASPIRIN, ENTERIC COATED) 81 mg EC tablet Take 1 tablet by mouth once daily.Historical Med, R-0 STOP taking these medications insulin 70/30 insulin aspart prt/insulin aspart units/mL (NOVOLOG MIX 70/30) 100 units/mL injection Comments: Reason for Stopping: aspirin 81 mg chewable tablet Comments: Reason for Stopping: Patient verbalizes understanding of counseling. Signature: APRIL SHER PHARMACIST Pager: [phone] Date: August 09, 2018 Time: 3:32 PM CNDS Observed: 08/09/2018 Status: COMPLETED Source: [place] 12:50 PM CLINIC OTHER CAMPUS REPOSITORY HNO ID: [id number] Author: Denisse Echols Service: Psychiatry Author Type: Physician Type: Discharge Summaries Filed: 08/09/2018 8:29 PM Note Text: DISCHARGE SUMMARY BEHAVIORAL HEALTH PATIENT NAME: Danielle Mary ADMISSION DATE: 08/04/2018 DISCHARGE DATE: 08/09/2018 ATTENDING PHYSICIAN: Denisse Echols MD Code Status: Not on file Highest Readmission Risk Score: 18 The 30 day readmissions risk score is derived from an internally validated risk model which evaluates patient level characteristics, utilization history, medication orders and lab results up until the day of discharge. Patients with a score of 40 or above are considered highest risk for readmission. Specific patient level drivers will be listed at the bottom of the summary. REASON FOR HOSPITALIZATION: Acute psychosis and Failure of outpatient psychiatric management HPI on admission: Danielle presented to [facility] from [facility] on Tuesday08/04/2018 due to a chief complaint of hearing voices. She started hearing voices about 3 weeks ago and has never heard them before. She hears the voices almost every day that tell her to stop taking her pills because she does not need them. She has been irritable over the last few weeks and has often yelled at her and her daughter. Per the request of her , daughter, and her home health nurse, she decided to see a psychiatrist about 3 weeks ago... Per records sent from [facility]: Patient began IOP on 07/21 for depression and anxiety. Prior to IOP she was taking Zoloft 50 mg and trazodone 50 mg qhs from her PCP that she discontinued because she felt that they were ineffective. She was started on Latuda [address] White at [facility] with plan to titrate to [address] White was concerned that pt was decompensating with continued depressive symptoms and auditory hallucinations telling her not to take her medications. She is unable to identify the voice. Patient was admitted by Dr. White on Tuesday and started on Invega 3 mg daily. DISCHARGE DIAGNOSIS: 1. PRIMARY: Mood Disorder Major Depressive Disorder, Recurrent, Severe With Psychotic Symptoms 2. Unspecified anxiety disorder R/O Bipolar disorder Insulin dependent diabetes Coronary artery disease COPD OPERATIONS DURING HOSPITALIZATION: None PROCEDURES DURING HOSPITALIZATION: No procedures performed HOSPITAL COURSE: The patient was admitted to [facility], provided individual crisis intervention, oriented psychotherapy, group and milieu therapy as well as side effect, symptom and safety monitoring. She had medication trials including Invega 3 mg to which patient was agreeable, [place] ER 300 mg bid and Seroquel 50 mg qhs. Side effects, risks and benefits were discussed. Patient endorsed improvement in mood. Her depression and anxiety symptoms had improved. Her auditory hallucinations resolved. She endorsed motivation to continue IOP and be compliant with medications. Denies active SI/HI and thoughts of harm to self and others. As a result patient will be discharged in improved and stable condition. CONSULTING TEAMS DURING HOSPITALIZATION: Internal Medicine: Gerardo Delgado MD PATIENT CONDITION AT DISCHARGE: Improved DISCHARGE DISPOSITION: Home with Relative COMPLICATIONS: None SUBJECTIVE: At this time the patient has maximized her benefit from hospitalization.. The patient denies suicidal or homicidal ideation, intent or plan and is safe for discharge. The patient voices a readiness to transition back to her home setting and has agreed to our follow-up recommendations including medication compliance. OBJECTIVE: Transitions of Care Critical Issues: LAB MONITORING NEEDED: [place] level LABS AND PROCEDURES PENDING AT DISCHARGE: No pending results. Any PRN's required for agitation or anxiety since last encounter: No New problems on the unit since the last encounter: No Any new medication reactions since the last encounter: No BP 105/57 Pulse 76 Temp (Src) 99.7 (Temporal Artery) Resp 18 Ht 5' 3 (1.60m) Wt 184 lb (83.5kg) SpO2 99% LMP 08/06/1995 BMI 32.60 kg/(m2). MENTAL STATUS EXAM AT DISCHARGE: Appearance: Casually dressed and Appears stated age Behavior: Appropriate Orientation: Person, Place, Time and Situation Speech/Language: The patient demonstrates appropriate tone, prosody, mayda, phonetics, and syntax Mood/Affect: Appropriate, Bright, Happy and Hopeful Thought/Form: Coherent and Logical Thought Content: endorses positive mood and resolution of AH. Coherent Suicidal Ideations: No suicidal ideation, intent or plan. Homicidal Ideations: No homicidal ideation, intent or plan. Insight: Appropriate Judgment: Appropriate Memory/Cognition: Intact Psychomotor: Psychomotor activity was normal LABORATORY DATA: The laboratory/imaging results have been reviewed. Pertinent findings since the last assessment: No TREATMENT PLAN: 1. Biological Management: Invega 3 mg qd, Seroquel 50 mg qhs, [place] ER 300 mg bid 2. Psychological Management Recommendations: Continue IOP 3. Social Intervention Recommendations: Return home with family support INFORMED CONSENT: Yes, completed with the Patient. Discussed the risks, benefits and alternatives to the medication(s) recommended. Consent was given. ALLERGIES Allergen Reactions - Ibuprofen GI Upset - Penicillins Hives - Vicodin [Hydrocodon* GI Upset DISCHARGE MEDICATION: Discharge Medication List as of 08/09/2018 12:30 PM START taking these medications paliperidone ER (INVEGA) 3 mg 24 hr tablet Take 1 tablet by mouth once daily. Print RX, Disp-30 tablet, R-2, Long-term QUEtiapine (SEROQUEL) 50 mg tablet Take 1 tablet by mouth daily at bedtime. Print RX, Disp-30 tablet, R-2, Long-term lithium carbonate ER 300 mg CR tablet Take 1 tablet by mouth twice daily. Print RX, Disp-60 tablet, R-2, Long-term CONTINUE these medications which have NOT CHANGED vitamin B complex (B COMPLEX-VITAMIN B12 ORAL) B Complex-Vitamin B12 oral Historical Med, Long-term cholecalciferol, Vitamin D3, (VITAMIN D3) 50,000 unit cap capsule Take 1 capsule by mouth once each week. Historical Med, R-2, Long-term metoprolol tartrate, short acting, (LOPRESSOR) 25 mg tablet Take 1 tablet by mouth twice daily. Normal, Disp-60 tablet, R-[address] (PROTONIX) 40 mg tablet Take 1 tablet by mouth daily before breakfast. Take on empty stomach, 1/2 hr before meal. Normal, Disp-30 tablet, R-5 metFORMIN (GLUCOPHAGE) 1,000 mg tablet Take 1 tablet by mouth twice daily with meals. Normal, Disp-60 tablet, R-5 lisinopril (ZESTRIL, PRINIVIL) 5 mg tablet Take 1 tablet by mouth once daily. Normal, Disp-30 tablet, R-5 Insulin Syringe-Needle U-100 (ULTRA FINE INSULIN) 1 mL 30 gauge x 1/2 syrg Use one needle with each injection twice a day. Dx E11.9 on insulin Normal, Disp-100 Syringe, R-3 atorvastatin (LIPITOR) 40 mg tablet Take 1 tablet by mouth once daily. Normal, Disp-30 tablet, R-5 pioglitazone (ACTOS) 45 mg tablet Take 1 tablet by mouth once daily. Normal, Disp-30 tablet, R-5 furosemide (LASIX) 20 mg tablet Take 1 tablet by mouth once daily. Normal, Disp-30 tablet, R-3 Dx: 1. Cough 2. PND (paroxysmal nocturnal dyspnea) Loperamide HCl (IMODIUM) 2 mg tab Take two tabs by mouth to start then one tab after each loose bowel movement. Max of 8 in 24 hrs. Normal, Disp-30 tablet, R-1 Dx: 1. Gastroenteritis benzonatate (TESSALON PERLE) 100 mg capsule Take 1 capsule by mouth three times daily as needed. Normal, Disp-60 capsule, R-1 Dx: 1. Viral syndrome cyanocobalamin (VITAMIN B-12) 1,000 mcg tab Take 1 tablet by mouth once daily. Normal, Disp-30 tablet, R-11 Dx: 1. B12 deficiency insulin 70/30 NPH/regular units/mL (NOVOLIN 70/30) Take 18 units in AM and 21 units in PM Normal, Disp-1 Vial, R-11 colestipol (COLESTID) 1 gram tablet Take 1 tablet by mouth once daily. Normal, Disp-30 tablet, R-11 clopidogrel (PLAVIX) 75 mg tablet Take 1 tablet by mouth once daily. Historical Med, Disp-30 tablet, R-11 aspirin, enteric coated (ASPIRIN, ENTERIC COATED) 81 mg EC tablet Take 1 tablet by mouth once daily. Historical Med, R-0 STOP taking these medications insulin 70/30 insulin aspart prt/insulin aspart units/mL (NOVOLOG MIX 70/30) 100 units/mL injection Comments: Reason for Stopping: aspirin 81 mg chewable tablet Comments: Reason for Stopping: Is Patient Discharged on Two Active Antipsychotics? No INFORMATION PROVIDED TO PATIENT: Substance Abuse Information Given Smoking Cessation Material Given FUTURE APPOINTMENTS: Follow Up with : Discharge Information Row Name Admission (Discharged) from 08/04/[address] STRESS MANAGEMENT Psychiatry Follow-Up Appointment Psychiatrist Name DR. MCINTYRE [facility] Intensive Outpatient [facility] / [facility] Hospital Program Agency ? [facility] [phone] Additonal Instructions RESUME ADVISED Discharge Disposition Discharge Disposition Home with Family/Friend Additional Discharge Information Additional Discharge Resources [facility] 24 HR HOTLINE [id number] The patient's risk for 30-day readmission is determined using the following contributing factors: Pt variables contributing to increased readmission risk: 14 Most Recent BUN Result 1 Insurance - Medicare 1 Discharge Disposition - Home 1 History of COPD TIME OF CARE: Discharge Management: I personally spent greater than 30 minutes involved in the discharge management of this patient. I saw and evaluated the patient. Discussed with the resident and agree with resident's findings and plan as documented in the resident's note. SIGNATURE: Josefa Lagos MD PATIENT NAME: Danielle Mary DATE: August 09, 2018 TIME: 4:06 PM PAGER/CONTACT #: GLUCOSE METER Collected: 08/09/2018 Status: F Source: [facility] 12:23 PM HEALTH SYSTEM REPOSITORY TYPE CODE TESTS RESULT OUT OF REFERENCE UNITS RANGE LAB GLUBL(LOINC 70-99 mg/dL ) High Glucose Meter 136 Result Comment: RN NOTIFIED Performed By: #### GLMET #### [facility] [address] [place] [address] PLAN OF CARE Observed: 08/09/2018 Status: COMPLETED Source: [place] 11:46 AM [facility] OTHER CAMPUS REPOSITORY HNO ID: [id number] Author: Carmen Fairbanks ([employer]) Service: (none) Author Type: (none) Type: Plan of Care Filed: 08/09/2018 11:47 AM Note Text: Pharmacy Discharge Medication Service: This patient has elected to receive their discharge prescriptions through the [facility] Bedside Prescription Delivery program. The prescriptions are currently being processed. A follow-up note will be entered once the prescriptions have been filled and delivered to the patient. Please contact me with any questions or updates to the patient's discharge medications. Carmen Fairbanks ([employer]) DCT Contact Info: extension [phone] or [phone] See previous note regarding Pharmacy Insurance coverage. PLAN OF CARE Observed: 08/09/2018 Status: COMPLETED Source: [place] 11:40 AM [facility] OTHER CAMPUS REPOSITORY HNO ID: [id number] Author: Carmen Fairbanks ([employer]) Service: (none) Author Type: (none) Type: Plan of Care Filed: 08/09/2018 11:45 AM Note Text: [facility] DOUBLE BEDSIDE DELIVERY SURVEY 1. Patient to use [facility] Bedside Delivery - YES 2. If fax, patient would like us to fax prescriptions to Pharmacy of choice a. Pharmacy: b. Location: c. Phone: 3. Insurance card on file - NO 4. Credit card for payment - N/A [place] ER 300 mg Seroquel 50 mg Invega 3 mg Pt has no Pharmacy Insurance on file, I called her home pharmacy ([facility] in [place]) and they stated pt has used their store discount program the whole year and did not have any active insurance for prescriptions on file for her. [facility] April Sher looking into. Contact Carmen at [phone] with questions prior to discharge SOCIAL WORK Observed: 08/09/2018 Status: COMPLETED Source: [place] 10:41 AM CLINIC OTHER CENTER POINT REPOSITORY HNO ID: [id number] Author: Alem Hernandez (Sw) Service: Social Work Author Type: Cheese Tester Type: Social Work Filed: 08/09/2018 10:43 AM Note Text: BEHAVIORAL HEALTH SOCIAL WORK DISCHARGE NOTE SERVICE DATE: 08/09/2018 SERVICE TIME: 1041 PATIENT'S DISCHARGE PLAN: Discharge Disposition Discharge Disposition: Home with Family/Friend Halfway Referral Information Residential Treatment Center Referral Information [facility] Referral Information Crisis Stabilization Unit Acute Care Facility Referral Information Assisted Living Facility Referral Information Home Care Agency Referral Information Relay Telegrapher Guardian Psychiatry Follow-Up Appointment Psychiatrist Name: DR. MCINTYRE Medical Follow-Up Appointment Counselor Referral Information Case Management Referral Information Family Psychoeducational ([facility]) Follow-Up Appointment Basketball Referee Chemical Dependency Care - Intensive Outpatient/Partial Hospital Program Behavioral Health Care - Intensive Outpatient/Partial Hospital Program Agency: ([facility] [phone]) Additonal Instructions: RESUME ADVISED ECT Treatment/Follow-Up Additional Discharge Information Additional Discharge Resources: [facility] 24 HR HOTLINE [id number] Patient/Teletype Telegrapher Agreeable With Discharge Plan: Yes FREEDOM OF CHOICE EXPLAINED? NO FORM Patient/Teletype Telegrapher Given/Explained Medicare Discharge Notice (IM letter): Not Applicable TRANSPORTATION ARRANGEMENTS: To be determined PRESCRIPTIONS FILLED PRIOR TO DISCHARGE: TBD ADDITIONAL NOTES: PT IS D/C PER DR. ECHOLS. NIKHIL COORIDNATED FOLLOWUP WITH O/P PROVIDER [facility] AND FORWARDED D/C CLINICALS. NIKHIL PROVIDED SUPPORT. SIGNATURE: ERYN Avendaño PATIENT NAME: Danielle Mary DATE: August 09, 2018 TIME: 10:41 ALLIED HEALTH Observed: 08/09/2018 Status: COMPLETED Source: [place] 9:45 AM [facility] OTHER CENTER [facility]INT REPOSITORY HNO ID: [id number] Author: Dang IZAGUIRRE Service: (none) Author Type: (none) Type: Allied Health Filed: 08/09/2018 4:41 PM Note Text: MUSIC THERAPY Topic: Therapy Group Note Patient Name: Danielle Mary Date: August 09, 2018 Duration of Group: 75 minutes Duration of Attendance: 75 minutes Type of Session: Music Therapy Topic: Self-Identity Music Therapy Interventions: Elli Analysis, Singing, Verbal Processing, Music Listening Participation Level: Good RESULTS Before Reported Feeling Anxious Affect Appropriate COMMENTS: Danielle demonstrated good participation in group, although quietly engaged. She participated appropriately in group discussion and music therapy interventions. Would benefit from continued participation in groups. SIGNATURE: Dang Miguel [facility] PATIENT NAME: Danielle Mary DATE: August 09, 2018 TIME: .4:40 PM PAGER/CONTACT #: P: [phone] NURSING PROG Observed: 08/09/2018 Status: COMPLETED Source: [place] 8:43 AM [facility] OTHER CENTER [facility]INT REPOSITORY HNO ID: [id number] Author: Ester (Rn) LIZBET Du Service: Nursing Author Type: Registered Nurse Type: Nursing Progress Note Filed: 08/09/2018 12:08 PM Note Text: Nursing Progress Note Patient Name: Danielle Mary Patient Location: [place] [address] [address]* Daily Note: Pt up to the nursing station for morning medications. Pt bright and pleasant during interaction. Pt reports that she is excited to be going home today. Pt reminded that a discharge is not set in stone till the order is placed by the doctor. Pt states the doctor said I am going home today. I am going to take my grandson trick or treating in [facility]. Pt compliant with scheduled medications and inquires if she will be taking the same medications upon discharge. Pt assured that this RN will review her discharge medications with her once the discharge is ordered. Pt denies feeling anxious or depressed. Pt further denies SI/HI/AH/VH. Pt voices no complaints or concerns outside of being discharged. Encouraged pt to attend groups, interact with peers and to seek out staff as needed. Pt remains safe. Will continue to monitor. This note was completed by: Ester Du RN CONSULT PROG Observed: 08/09/2018 Status: COMPLETED Source: [place] 8:22 AM [facility] OTHER CAMPUS REPOSITORY HNO ID: [id number] Author: Gerardo Christopher Service: General Internal Medicine Author Type: Physician Type: Consult Progress Note Filed: 08/09/2018 8:22 AM Note Text: INPATIENT PROGRESS NOTE SERVICE DATE: 08/09/2018 SERVICE TIME: 8:22 AM Subjective CHIEF COMPLAINT: MDD (major depressive disorder) PRIMARY SERVICE: Psych INTERVAL HPI: no changes medically Current hospital medications: lithium carbonate ER 300 mg tab(s) 300 mg ORAL BID 8A/BEDTIME QUEtiapine 50 mg tablet (SEROquel) 50 mg ORAL AT BEDTIME insulin glargine 50 Units pen (long acting) (LANTUS SOLOSTAR, BASAGLAR KWIKPEN) 50 Units SUBCUTANEOUS DAILY (8 AM) insulin lispro 5 Units pen (rapid acting) (HumaLOG KWIKPEN) 5 Units SUBCUTANEOUS w MEALS AND HS budesonide 0.5 mg/2 mL 0.5 mg (PULMICORT) 0.5 mg INHALATION BID guaiFENesin-dextromethorphan 100-10 mg/5 mL 10 mL oral liquid (ROBITUSSIN DM) 10 mL ORAL q 6 H PRN Lip Protectant with Sunscreen SPF 15 1 application Stick (Blistex) 1 application TOPICAL PRN benzocaine-menthol 1 Lozenge (CEPACOL) 1 Lozenge MUCOUS MEMBRANE (TOPICAL MOUTH AND THROAT) q 2 H PRN traZODone 50 mg tab(s) (DESYREL) 50 mg ORAL HS PRN hydrOXYzine HCl 50 mg tab(s) (ATARAX) 50 mg ORAL q 6 H PRN acetaminophen 650 mg tab(s) (TYLENOL) 650 mg ORAL q 6 H PRN aluminum-magnesium hydroxide-simethicone 200-200-20 mg/5 mL 30 mL (MAALOX,MYLANTA,MAG-AL PLUS) 30 mL ORAL q 4 H PRN magnesium hydroxide 400 mg/5 mL 30 mL (MOM) 30 mL ORAL DAILY PRN nicotine 14 mg/24 hr 1 Patch (NICODERM) 1 Patch TRANSDERMAL DAILY nicotine -- REMOVE patch OTHER DAILY nicotine - verify patch OTHER q 8 H metoprolol tartrate (short acting) 25 mg tab(s) (LOPRESSOR) 25 mg ORAL q [address] 40 mg tab(s) (PROTONIX) 40 mg ORAL DAILY (6 AM) pioglitazone 45 mg tab(s) (ACTOS) 45 mg ORAL DAILY paliperidone ER 3 mg SR tablet (INVEGA) 3 mg ORAL DAILY aspirin 81 mg chewable tab(s) 81 mg ORAL DAILY atorvastatin 40 mg tab(s) (LIPITOR) 40 mg ORAL AT BEDTIME clopidogrel 75 mg tab(s) (PLAVIX) 75 mg ORAL DAILY cyanocobalamin 500 mcg (VITAMIN B-12) 500 mcg ORAL DAILY furosemide 40 mg tab(s) (LASIX) 40 mg ORAL DAILY dextrose 40 % 15 g 15 g ORAL PRN glucagon 1 mg injection (GLUCAGEN) 1 mg INTRAMUSCULAR PRN dextrose 50% in water 25 mL syringe 12.5 g INTRAVENOUS PRN lisinopril 5 mg tab(s) (ZESTRIL, PRINIVIL) 5 mg ORAL DAILY metFORMIN 1,000 mg tab(s) (GLUCOPHAGE) 1,000 mg ORAL BID w MEALS Objective PHYSICAL EXAM: BP 150/73 Pulse 100 Temp (Src) 97.7 (Temporal Artery) Resp 16 Ht 5' 3 (1.60m) Wt 184 lb (83.5kg) SpO2 100% LMP 08/06/1995 BMI 32.60 kg/(m2). GENERAL: Alert, no distress, cooperative LUNGS: Lungs clear to auscultation, Good diaphragmatic excursion CARDIAC: Normal S1 and S2; no rubs, murmurs, or gallops ABDOMEN: Abdomen soft, non-tender, BS normal, No masses or organomegaly DATA: Diagnostic tests reviewed for today's visit: No new labs Assessment/Plan Principal Problem: MDD (major depressive disorder) POA: Yes Assessment AND Plan: cont meds Active Problems: CAD (coronary artery disease) POA: Yes Assessment AND Plan: stable Essential hypertension POA: Yes Assessment AND Plan: cont meds Mixed hyperlipidemia POA: Yes Assessment AND Plan: stable GERD without esophagitis POA: Yes Assessment AND Plan: stable Chronic obstructive pulmonary disease (HCC) POA: Yes Assessment AND Plan: cont meds Type 2 diabetes mellitus without complication, with long- term current use of insulin (HCC) POA: Yes Assessment AND Plan: stable Resolved Problems: * No resolved hospital problems. * Discussed with nursing SIGNATURE: Gerardo Christopher MD PATIENT NAME: Danielle Mary DATE: 08/09/2018 TIME: 8:22 AM PAGER: NURSING PROG Observed: 08/08/2018 Status: COMPLETED Source: [place] 8:50 PM [facility] OTHER CAMPUS REPOSITORY HNO ID: [id number] Author: Kay (Rn) LIZBET Silva Service: Nursing Author Type: Registered Nurse Type: Nursing Progress Note Filed: 08/08/2018 10:36 PM Note Text: Nursing Progress Note Patient Name: Danielle Mary Patient Location: [place] [address]/[place] [address]* Daily Note: Pt dressed in own clothing. Pt calm and cooperative with assessment. Pt denies anxiety, depression, SI/HI, A/VH. Pt states that she is excited because she is going home tomorrow. Pt is somewhat dismissive with assessment questions and does not elaborate. Pt up on unit and social with other patients. Pt agrees to be safe on the unit and to seek staff with any needs. 1914 - patient had another patient approach staff, states that she was sweaty, dizzy and felt sick. Staff checked patient blood sugar, it was 64 and patient was given orange juice per hypoglycemic protocol. Will continue to monitor. 1952 - patient blood sugar rechecked and is 124. Dr Worrell notified and gave orders to hold HS humalog dose and to decrease lantus to 50 units. RN went to speak with patient and made sure she ate peanut butter and crackers. Dr Worrell states to recheck at 2230. Will continue to monitor. 2229 - patient blood sugar 193 This note was completed by: Kay Silva RN ALLIED HEALTH Observed: 08/08/2018 Status: COMPLETED Source: [place] 6:[address] [facility] REPOSITORY HNO ID: [id number] Author: Sophie (Therapist) Federico Eastman Service: Art Therapy Author Type: Therapist Type: Allied Health Filed: 08/08/2018 6:50 PM Note Text: PROGRESS NOTE BEHAVIORAL HEALTH Topic of Note: Group Participation SERVICE DATE: 08/08/2018 SERVICE TIME: 14:40-15:30 -A-Pt stated that they are feeling content. Pt presented with moderate level of energy and appropriate affect. Pt actively participated in activity and discussion. Pt. was hoping that she was going home today but trying not to get too excited because she had been disappointed yesterday. -I- Facilitated group re: Open processing .Therapist provided opportunity to express thoughts and feelings. -E- Pt. could benefit from continued support, talking about her thoughts and feelings in group and an opportunity to learn positive coping Skills. SIGNATURE: Sophie Eastman LPC PATIENT NAME: Danielle Mary DATE: August 08, 2018 TIME: 6:48 PM PAGER/CONTACT #: ALLIED HEALTH Observed: 08/08/2018 Status: COMPLETED Source: [place] 6:[address] [facility] REPOSITORY HNO ID: [id number] Author: Sophie (Therapist) Federico Eastman Service: Art Therapy Author Type: Therapist Type: Allied Health Filed: 08/08/2018 6:31 PM Note Text: PROGRESS NOTE BEHAVIORAL HEALTH Topic of Note: Group Participation SERVICE DATE: 08/08/2018 SERVICE TIME: 9:40-10:45 -A-Pt stated that they are feeling happy. Pt presented with moderate level of energy and appropriate affect. Pt actively participated in activity and discussion. Pt. Said that three things that she likes about herself are that she is respectful, kind and likes to be around people. -I- Facilitated group re: Building self esteem .Therapist provided opportunity to express thoughts and feelings. -E- Pt. could benefit from continued support, talking about her thoughts and feelings in group and an opportunity to learn positive coping skills. SIGNATURE: Sophie Eastman LPC PATIENT NAME: Danielle Mary DATE: August 08, 2018 TIME: 6:29 PM PAGER/CONTACT #: ALLIED HEALTH Observed: 08/08/2018 Status: COMPLETED Source: [place] 2:25 PM [facility] REPOSITORY HNO ID: [id number] Author: Safia Crespo (Therapist) Yifan Service: (none) Author Type: Therapist Type: Allied Health Filed: 08/08/2018 2:26 PM Note Text: PROGRESS NOTE BEHAVIORAL HEALTH Topic of Note: Group Participation SERVICE DATE: 08/08/2018 SERVICE TIME: 10:58-11:35 A-Pt stated that they are feeling happy. Pt presented with moderate level of energy and incongruent affect. Pt actively participated in activity and discussion. -I- Facilitated group re: CBT. Therapist provided opportunity to express thoughts and feelings. -E- Pt. could benefit from continued support, talking about thoughts and feelings in group and a opportunity to learn new coping skills. SIGNATURE: Safia Saha, Adjunctive Therapist PATIENT NAME: Danielle Mary DATE: August 08, 2018 TIME: 2:25 PM PAGER/CONTACT #: NURSING PROG Observed: 08/08/2018 Status: COMPLETED Source: [place] 2:[address] [facility] REPOSITORY HNO ID: [id number] Author: Ester (Rn) LIZBET Du Service: Nursing Author Type: Registered Nurse Type: Nursing Progress Note Filed: 08/08/2018 2:43 PM Note Text: Nursing Progress Note Patient Name: Danielle Mary Patient Location: [place] [address] [address]* Pt c/o cough. Pt medicated with PRN Robitussin DM per pt request at this time. Will continue to monitor. This note was completed by: Ester Du RN CONSULT PROG Observed: 08/08/2018 Status: COMPLETED Source: [place] 10:[address] [facility] REPOSITORY HNO ID: [id number] Author: Gerardo Christopher Service: General Internal Medicine Author Type: Physician Type: Consult Progress Note Filed: 08/08/2018 10:54 AM Note Text: INPATIENT PROGRESS NOTE SERVICE DATE: 08/08/2018 SERVICE TIME: 10:53 AM Subjective CHIEF COMPLAINT: MDD (major depressive disorder) PRIMARY SERVICE: Psych INTERVAL HPI: no changes medically Current hospital medications: lithium carbonate ER 300 mg tab(s) 300 mg ORAL BID 8A/BEDTIME QUEtiapine 50 mg tablet (SEROquel) 50 mg ORAL AT BEDTIME insulin lispro 5 Units pen (rapid acting) (HumaLOG KWIKPEN) 5 Units SUBCUTANEOUS w MEALS AND HS insulin glargine 60 Units pen (long acting) (LANTUS SOLOSTAR, BASAGLAR KWIKPEN) 60 Units SUBCUTANEOUS DAILY (8 AM) budesonide 0.5 mg/2 mL 0.5 mg (PULMICORT) 0.5 mg INHALATION BID guaiFENesin-dextromethorphan 100-10 mg/5 mL 10 mL oral liquid (ROBITUSSIN DM) 10 mL ORAL q 6 H PRN Lip Protectant with Sunscreen SPF 15 1 application Stick (Blistex) 1 application TOPICAL PRN benzocaine-menthol 1 Lozenge (CEPACOL) 1 Lozenge MUCOUS MEMBRANE (TOPICAL MOUTH AND THROAT) q 2 H PRN traZODone 50 mg tab(s) (DESYREL) 50 mg ORAL HS PRN hydrOXYzine HCl 50 mg tab(s) (ATARAX) 50 mg ORAL q 6 H PRN acetaminophen 650 mg tab(s) (TYLENOL) 650 mg ORAL q 6 H PRN aluminum-magnesium hydroxide-simethicone 200-200-20 mg/5 mL 30 mL (MAALOX,MYLANTA,MAG-AL PLUS) 30 mL ORAL q 4 H PRN magnesium hydroxide 400 mg/5 mL 30 mL (MOM) 30 mL ORAL DAILY PRN nicotine 14 mg/24 hr 1 Patch (NICODERM) 1 Patch TRANSDERMAL DAILY nicotine -- REMOVE patch OTHER DAILY nicotine - verify patch OTHER q 8 H metoprolol tartrate (short acting) 25 mg tab(s) (LOPRESSOR) 25 mg ORAL q [address] 40 mg tab(s) (PROTONIX) 40 mg ORAL DAILY (6 AM) pioglitazone 45 mg tab(s) (ACTOS) 45 mg ORAL DAILY paliperidone ER 3 mg SR tablet (INVEGA) 3 mg ORAL DAILY aspirin 81 mg chewable tab(s) 81 mg ORAL DAILY atorvastatin 40 mg tab(s) (LIPITOR) 40 mg ORAL AT BEDTIME clopidogrel 75 mg tab(s) (PLAVIX) 75 mg ORAL DAILY cyanocobalamin 500 mcg (VITAMIN B-12) 500 mcg ORAL DAILY furosemide 40 mg tab(s) (LASIX) 40 mg ORAL DAILY dextrose 40 % 15 g 15 g ORAL PRN glucagon 1 mg injection (GLUCAGEN) 1 mg INTRAMUSCULAR PRN dextrose 50% in water 25 mL syringe 12.5 g INTRAVENOUS PRN lisinopril 5 mg tab(s) (ZESTRIL, PRINIVIL) 5 mg ORAL DAILY metFORMIN 1,000 mg tab(s) (GLUCOPHAGE) 1,000 mg ORAL BID w MEALS Objective PHYSICAL EXAM: BP 99/54 Pulse 75 Temp (Src) 97.7 (Temporal Artery) Resp 16 Ht 5' 3 (1.60m) Wt 184 lb (83.5kg) SpO2 100% LMP 08/06/1995 BMI 32.60 kg/(m2). GENERAL: Alert, no distress, cooperative LUNGS: Lungs clear to auscultation, Good diaphragmatic excursion CARDIAC: Normal S1 and S2; no rubs, murmurs, or gallops ABDOMEN: Abdomen soft, non-tender, BS normal, No masses or organomegaly DATA: Diagnostic tests reviewed for today's visit: No new labs Assessment/Plan Principal Problem: MDD (major depressive disorder) POA: Yes Assessment AND Plan: psych Active Problems: CAD (coronary artery disease) POA: Yes Assessment AND Plan: stable Essential hypertension POA: Yes Assessment AND Plan: cont meds Mixed hyperlipidemia POA: Yes Assessment AND Plan: cont meds GERD without esophagitis POA: Yes Assessment AND Plan: stable Chronic obstructive pulmonary disease (HCC) POA: Yes Assessment AND Plan: cont meds Type 2 diabetes mellitus without complication, with long- term current use of insulin (HCC) POA: Yes Assessment AND Plan: cont meds Resolved Problems: * No resolved hospital problems. * Discussed with nursing SIGNATURE: Gerardo Christopher MD PATIENT NAME: Danielle Mary DATE: 08/08/2018 TIME: 10:53 AM PAGER: PROGRESS Observed: 08/08/2018 Status: COMPLETED Source: [place] 8:43 AM [facility] OTHER CAMPUS REPOSITORY O ID: [id number] Author: Denisse Echols Service: Psychiatry Author Type: Physician Type: Progress Notes Filed: 08/08/2018 5:03 PM Note Text: PROGRESS NOTE BEHAVIORAL HEALTH SERVICE DATE: 08/08/2018 SERVICE TIME: 8:43 AM The Interdisciplinary team met and reviewed treatment goals and discharge planning. Subjective Patient seen and examined in follow up for depression. Compliant with medications and denies SE. Says she is in a really good mood today and happy. She was slightly upset yesterday that she didn't go home. Her had prepared dinner for her and she had to call and tell him she was not coming home. But now has accepted that it's for her best. Says she slept really well last night. She is anxious and hoping that she will go home today. Denies SI. Objective PHYSICAL EXAM: BP 99/54 Pulse 75 Temp 36.3 ?C (97.3 ?F) Resp 20 Ht 160 cm (5' 3) Wt 83.5 kg (184 lb) LMP 08/06/1995 SpO2 97% BMI 32.59 kg/m? MENTAL STATUS EXAMINATION: Appearance: Casually dressed and Appears stated age Behavior: Appropriate Orientation: Person, Place, Time and Situation Speech/Language: The patient demonstrates appropriate tone, prosody, mayda, phonetics, and syntax Mood/Affect: Anxious and Happy Thought Form: Coherent and Logical Thought Content: Coherent Logical Suicidal Ideations: No suicidal ideation, intent or plan. Homicidal Ideations: No homicidal ideation, intent or plan. Insight: Appropriate Judgment: Limited Memory/Cognition: Intact Psychomotor: Psychomotor activity was normal NEW PROBLEMS ON UNIT SINCE LAST ENCOUNTER: None Current hospital medications: lithium carbonate ER 300 mg tab(s) 300 mg ORAL BID 8A/BEDTIME QUEtiapine 50 mg tablet (SEROquel) 50 mg ORAL AT BEDTIME insulin lispro 5 Units pen (rapid acting) (HumaLOG KWIKPEN) 5 Units SUBCUTANEOUS w MEALS AND HS insulin glargine 60 Units pen (long acting) (LANTUS SOLOSTAR, BASAGLAR KWIKPEN) 60 Units SUBCUTANEOUS DAILY (8 AM) budesonide 0.5 mg/2 mL 0.5 mg (PULMICORT) 0.5 mg INHALATION BID guaiFENesin-dextromethorphan 100-10 mg/5 mL 10 mL oral liquid (ROBITUSSIN DM) 10 mL ORAL q 6 H PRN Lip Protectant with Sunscreen SPF 15 1 application Stick (Blistex) 1 application TOPICAL PRN benzocaine-menthol 1 Lozenge (CEPACOL) 1 Lozenge MUCOUS MEMBRANE (TOPICAL MOUTH AND THROAT) q 2 H PRN traZODone 50 mg tab(s) (DESYREL) 50 mg ORAL HS PRN hydrOXYzine HCl 50 mg tab(s) (ATARAX) 50 mg ORAL q 6 H PRN acetaminophen 650 mg tab(s) (TYLENOL) 650 mg ORAL q 6 H PRN aluminum-magnesium hydroxide-simethicone 200-200-20 mg/5 mL 30 mL (MAALOX,MYLANTA,MAG-AL PLUS) 30 mL ORAL q 4 H PRN magnesium hydroxide 400 mg/5 mL 30 mL (MOM) 30 mL ORAL DAILY PRN nicotine 14 mg/24 hr 1 Patch (NICODERM) 1 Patch TRANSDERMAL DAILY nicotine -- REMOVE patch OTHER DAILY nicotine - verify patch OTHER q 8 H metoprolol tartrate (short acting) 25 mg tab(s) (LOPRESSOR) 25 mg ORAL q [address] 40 mg tab(s) (PROTONIX) 40 mg ORAL DAILY (6 AM) pioglitazone 45 mg tab(s) (ACTOS) 45 mg ORAL DAILY paliperidone ER 3 mg SR tablet (INVEGA) 3 mg ORAL DAILY aspirin 81 mg chewable tab(s) 81 mg ORAL DAILY atorvastatin 40 mg tab(s) (LIPITOR) 40 mg ORAL AT BEDTIME clopidogrel 75 mg tab(s) (PLAVIX) 75 mg ORAL DAILY cyanocobalamin 500 mcg (VITAMIN B-12) 500 mcg ORAL DAILY furosemide 40 mg tab(s) (LASIX) 40 mg ORAL DAILY dextrose 40 % 15 g 15 g ORAL PRN glucagon 1 mg injection (GLUCAGEN) 1 mg INTRAMUSCULAR PRN dextrose 50% in water 25 mL syringe 12.5 g INTRAVENOUS PRN lisinopril 5 mg tab(s) (ZESTRIL, PRINIVIL) 5 mg ORAL DAILY metFORMIN 1,000 mg tab(s) (GLUCOPHAGE) 1,000 mg ORAL BID w MEALS DATA: Diagnostic tests reviewed for today's visit: No new labs Assessment/Plan DIAGNOSIS: PRIMARY: Major depressive disorder with psychotic features. R/o Bipolar disorder Unspecified anxiety disorder Insulin-dependent diabetes mellitus Coronary artery disease COPD Disposition: pending clinical improvement. RISK ASSESSMENT: Suicide: low Homicide: low Deliberate Self-Harm: low Aggression: low Imminent Physical Self Impairment: low INFORMED CONSENT: Yes, completed with the Patient. Discussed the risks, benefits and alternatives to the medication(s) recommended. Consent was given. INTERVENTION: Biological: Invega 3mg daily, [place] ER 300 mg twice daily, Seroquel 50 mg at bedtime. Psychological: attend group meetings Social: will continue counseling upon discharge DISCHARGE PLANNING: pending clinical improvement I saw and evaluated the patient. Discussed with the resident and agree with resident's findings and plan as documented in the resident's note. SIGNATURE: Kings García Ms, Josefa Lagos MD PATIENT NAME: Danielle Mary DATE: August 08, 2018 TIME: 8:43 AM PAGER/CONTACT#: NURSING PROG Observed: 08/08/2018 Status: COMPLETED Source: [place] 8:[address] [facility] REPOSITORY HNO ID: [id number] Author: Ester LandrumRnMercedes Du RN Service: Nursing Author Type: Registered Nurse Type: Nursing Progress Note Filed: 08/08/2018 10:00 AM Note Text: Nursing Progress Note Patient Name: Danielle Mary Patient Location: [place] [address] [address]* Daily Note: Pt up to nursing station for morning medications. Pt bright and pleasant during interaction. Pt reports her mood is good and she slept well. Pt denies feeling anxious or depressed. Pt further denies SI/HI/AH/VH. Pt voices hope to be discharged today but voices no other complaints or concerns. Encouraged pt to continue attending groups, interacting with peers and to seek out staff as needed. Pt remains safe. Will continue to monitor. This note was completed by: Ester Du RN NURSING PROG Observed: 08/07/2018 Status: COMPLETED Source: [place] 9:[address] [facility] REPOSITORY HNO ID: [id number] Author: Tyler LandrumRn) LIZBET Aguero Service: Behavioral Health Author Type: Registered Nurse Type: Nursing Progress Note Filed: 08/08/2018 1:03 AM Note Text: Pt agrees to assessment. Pt A and O x3; pleasant and cooperative. Pt makes good eye contact; denies having anxiety, depression, SI, HI, or any hallucinations. Pt verbalizes safety here on unit. Pt says she has had a decent day here; says she was intially frustrated about not being discharged home today. RN reinforced w/ pt that staff has to monitor pt for response to medication changes, and to also monitor pt for continued complaints of insomnia. Pt verbalized understanding; receptive to support and encouragement. Pt denies having any physical complaints. RN reinforced w/ pt to attend therapeutic groups and to notify staff about any needs or concerns. Pt agreeable. Pt's blood glucose level is 123 mg/dL. RN and pt reviewed pt's scheduled and prn medications. Pt took scheduled bedtime medications w/o incident. Pt denies having any other needs or any concerns. RN will continue to monitor. NURSING PROG Observed: 08/07/2018 Status: COMPLETED Source: [place] 5:[address] [facility] REPOSITORY HNO ID: [id number] Author: Sam (Rn) Kayli Winston RN Service: Nursing Author Type: Registered Nurse Type: Nursing Progress Note Filed: 08/07/2018 5:57 PM Note Text: Nursing Progress Note Patient Name: Danielle Mary Patient Location: [place] [address] [address]* Pt in day [place] cooperative with staff. Pt is anxious to speak with Dr Echols and is very hopeful of discharge. This note was completed by: Sam Winston RN ALLIED [facility] Observed: 08/07/2018 Status: COMPLETED Source: [place] 5:[address] [facility] REPOSITORY HNO ID: [id number] Author: Safia Crespo (Therapist) Yifan Service: (none) Author Type: Therapist Type: Allied Health Filed: 08/07/2018 5:41 PM Note Text: PROGRESS NOTE BEHAVIORAL HEALTH Topic of Note: Group Participation SERVICE DATE: 08/07/2018 SERVICE TIME: 14:32-15:33 A-Pt stated that they are feeling pissed but asked the therapist to change it to happy. Pt presented with moderate level of energy and appropriate affect. Pt actively participated in activity and discussion. Pt was tearful in group about not going home today. Pt identified a problem in her life as not going home and her solution was staying on her medications. -I- Facilitated group re: decision making. Therapist provided opportunity to express thoughts and feelings. -E- Pt. could benefit from continued support, talking about thoughts and feelings in group and a opportunity to learn new coping skills. SIGNATURE: Safia Saha, Adjunctive Therapist PATIENT NAME: Danielle Mary DATE: August 07, 2018 TIME: 5:39 PM PAGER/CONTACT #: ALLIED HEALTH Observed: 08/07/2018 Status: COMPLETED Source: [place] 5:[address] [facility] REPOSITORY HNO ID: [id number] Author: Sophie (Therapist) Federico Eastman Service: Art Therapy Author Type: Therapist Type: Allied Health Filed: 08/07/2018 5:31 PM Note Text: PROGRESS NOTE BEHAVIORAL HEALTH Topic of Note: Group Participation SERVICE DATE: 08/07/2018 SERVICE TIME: 15:45-16:30 -A-Pt stated that they are feeling angry. Pt presented with moderate level of energy and annoyed affect. Pt actively participated in activity and discussion. Pt. Said that she can change that she has to take her medication on time and not control her mouth. -I- Facilitated group re: Serentity prayer and acceptance. .Therapist provided opportunity to express thoughts and feelings. -E- Pt. could benefit from continued support, talking about her thoughts and feelings in group and an opportunity to learn positive coping skills. SIGNATURE: Sophie Eastman LPC PATIENT NAME: Danielle Mary DATE: August 07, 2018 TIME: 5:28 PM PAGER/CONTACT #: ALLIED HEALTH Observed: 08/07/2018 Status: COMPLETED Source: [place] 4:[address] [facility] REPOSITORY HNO ID: [id number] Author: Safia Crespo (Therapist) Yifan Service: (none) Author Type: Therapist Type: Allied Health Filed: 08/07/2018 4:49 PM Note Text: PROGRESS NOTE BEHAVIORAL HEALTH Topic of Note: Group Participation SERVICE DATE: 08/07/2018 SERVICE TIME: 10:00-10:44 A-Pt stated that they are feeling happy. Pt presented with moderate level of energy and appropriate affect. Pt actively participated in activity and discussion. -I- Facilitated group re: anxiety. Therapist provided opportunity to express thoughts and feelings. -E- Pt. could benefit from continued support, talking about thoughts and feelings in group and a opportunity to learn new coping skills. SIGNATURE: Safia Saha, Adjunctive Therapist PATIENT NAME: Danielle Mary DATE: August 07, 2018 TIME: 4:48 PM PAGER/CONTACT #: SOCIAL WORK Observed: 08/07/2018 Status: COMPLETED Source: [place] 3:13 PM [facility] OTHER CAMPUS REPOSITORY HNO ID: [id number] Author: Alem Hernandez (Sw) Service: Social Work Author Type: Cheese Tester Type: Social Work Filed: 08/08/2018 12:23 PM Note Text: BEHAVIORAL HEALTH SOCIAL WORK/CARE MANAGEMENT ASSESSMENT AND DISCHARGE PLAN SERVICE DATE: 08/07/2018 SERVICE TIME: 1215 Reason for Admission: AUDITORY HALLUCINATIONS Legal Status: Involuntary - Medical Certificate Important Contacts: Primary Contact Name: PRITESH MARY / Relationship: Spouse / Cell / Does the patient/sales and service representative consent to contact with the above at this time? Yes Information obtained from: Chart Patient Referred by: LI CLARKE Living Arrangements Prior to Admission: Own Home Prior to Admission, Patient was Living with: Spouse Marital Status: . Relationship described as good Children (including quality of relationship): 5 CHILDREN Sexual Orientation: Heterosexual SOCIAL HISTORY Danielle Mary was born and raised in [place] by her biological parents. Her childhood is described as good. She has an unknown number of siblings. She has supportive relationship with family members. 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 MCINTYRE Has Patient Been Hospitalized Previously for Psychiatric Reasons? No, Patient/Teletype Telegrapher denies Substance Use and Treatment History: Alcohol Do special considerations/accommodations need to be made (i.e. preferred language, literacy, gender identity, physical disability such as deaf or blind, etc)? No, Patient/Teletype Telegrapher Denies Are there practices or beliefs that may affect or influence treatment? No, Patient/Teletype Telegrapher Denies Patient Strengths/Protective Factors (Minimum of Two): Able to Communicate Needs Connected with Outpatient Providers FAMILY PSYCHIATRIC HISTORY No Known Psychiatric Illness DISCHARGE RECOMMENDATIONS: Relinkage With Previous Providers Patient/Teletype Telegrapher Agreeable With Discharge Recommendations At This Time? Yes FREEDOM OF CHOICE EXPLAINED: NO FORM NEEDS PRIOR TO DISCHARGE: Waiting for: Psychiatric Stabilization Transportation Communication with Physician Physician to Discharge OBSTACLES TO TREATMENT/POST-DISCHARGE CHALLENGES: None At This Time SUMMARY: SW COMPLETED ASSESSMENT. SW COORDINATED FOLLOWUP WITH O/P PROVIDER. NIKHIL PROVIDED SUPPORT. SIGNATURE: ERYN Avendaño PATIENT NAME: Danielle Mary DATE: August 07, 2018 TIME: 3:13 PM HISTORY PHYSICAL Observed: 08/07/2018 Status: COMPLETED Source: [place] 12:21 PM CLINIC OTHER CAMPUS REPOSITORY O ID: [id number] Author: Denisse Echols Service: Psychiatry Author Type: Physician Type: HANDP Filed: 08/07/2018 6:46 PM Note Text: HISTORY AND PHYSICAL BEHAVIORAL HEALTH SERVICE DATE: 08/07/2018 SERVICE TIME: 12:23 PM IDENTIFYING INFORMATION: Danielle Mary is a 63 year old retired female who lives with her spouse and daugther in [place]. REASON FOR ADMISSION: hearing voices Subjective HPI: Danielle presented to [facility] from [place] [facility] on Tuesday08/04/2018 due to a chief complaint of hearing voices. She started hearing voices about 3 weeks ago and has never heard them before. She hears the voices almost every day that tell her to stop taking her pills because she does not need them. She has been irritable over the last few weeks and has often yelled at her and her daughter. Per the request of her , daughter, and her home health nurse, she decided to see a psychiatrist about 3 weeks ago. She says the psychiatrist at [facility] told her she has depression and started her on a medicine that she cannot remember. However, she has not been taking that medicine as well as her other medicines for chronic illnesses. On Tuesday she saw her psychiatrist Dr. White at [facility], who advised her to go to the ER because she was still hearing voices. She says she has heard no voices since her admission and re-starting her medicines. Per records sent from [facility]: Patient began IOP on 07/21 for depression and anxiety. Prior to IOP she was taking Zoloft 50 mg and trazodone 50 mg qhs from her PCP that she discontinued because she felt that they were ineffective. She was started on Latuda [address] White at [facility] with plan to titrate to [address] White was concerned that pt was decompensating with continued depressive symptoms and auditory hallucinations telling her not to take her medications. She is unable to identify the voice. Patient was admitted by Dr. White on Tuesday and started on Invega 3 mg daily. STRESSORS: Family: Worries generally about her children and grandchildren. PSYCHIATRIC REVIEW OF SYMPTOMS: Depression: + Depressed mood with no suicidal thoughts, intent or plan. Decreased sleep and energy, no loss of interest, hopelessness. Evie: Denies any history of hypomanic or manic episodes. Psychosis: Hallucinations: auditory. Denies delusions. Reports seeing ghost of her 's ex- once a month. Says her daughter sees her more. DINA: Excessive worry more than not. Worries about gamily a lot. OCD: Denies any symptoms of OCD. PTSD: Denies any PTSD symptoms. MEDICAL REVIEW OF SYSTEMS: GENERAL: Negative for malaise, significant weight loss and fever. HEENT: No changes in hearing or vision, no nose bleeds or other nasal problems. RESPIRATORY: Negative for cough, wheezing and shortness of breath. CARDIOVASCULAR: Negative for chest pain, leg swelling and palpitations. GI: Negative for abdominal discomfort, blood in stools or black stools. : Negative for dysuria, frequency and incontinence. MUSCULOSKELETAL: Negative for joint pain or swelling, back pain, and muscle pain. SKIN: Negative for lesions, rash, and itching. HEMATOLOGY/LYMPHOLOGY Negative for prolonged bleeding, bruising easily, and swollen nodes. ENDOCRINE: Negative for cold or heat intolerance, polyuria, polydipsia and goiter. NEURO: Negative for headaches, syncope, seizures and paralysis. PSYCHIATRIC HISTORY: Prior Diagnosis: Major Depressive Disorder with psychotic feature, Anxiety Current Psychiatrist: Dr. White at [facility] Current Therapist: [facility] program Current Athlete Manager: none Last Hospitalization: N/A. Total Hospitalizations: none. History of Suicide Attempts: none. Previous Discontinued Psychiatric Med Trials: Zoloft, Trazodone PAST MEDICAL HISTORY Diagnosis Date - CAD (coronary artery disease) 08/06/[address] Quesada. Has one stent - Cataracts, bilateral - Chronic diastolic heart failure ([facility]) - Chronic obstructive pulmonary disease (COPD) ([facility]) - Diabetes mellitus type 2, uncomplicated ([facility]) 08/06/2015 - Essential hypertension 08/06/2015 - GERD without esophagitis 08/06/2015 - Heart attack ([facility]) - Mixed hyperlipidemia 08/06/2015 - Morbid obesity ([facility]) - JESUS (obstructive sleep apnea) - Snoring - Vision loss HOME MEDICATIONS: Lamictal 25 mg daily, Atarax 25 mg prn No current facility-administered medications on file prior to encounter. Current Outpatient Prescriptions on File Prior to Encounter: metoprolol tartrate, short acting, (LOPRESSOR) 25 mg tablet Take 1 tablet by mouth twice daily. pantoprazole DR (PROTONIX) 40 mg tablet Take 1 tablet by mouth daily before breakfast. Take on empty stomach, 1/2 hr before meal. metFORMIN (GLUCOPHAGE) 1,000 mg tablet Take 1 tablet by mouth twice daily with meals. lisinopril (ZESTRIL, PRINIVIL) 5 mg tablet Take 1 tablet by mouth once daily. Insulin Syringe-Needle U-100 (ULTRA FINE INSULIN) 1 mL 30 gauge x 1/2 syrg Use one needle with each injection twice a day. Dx E11.9 on insulin atorvastatin (LIPITOR) 40 mg tablet Take 1 tablet by mouth once daily. pioglitazone (ACTOS) 45 mg tablet Take 1 tablet by mouth once daily. furosemide (LASIX) 20 mg tablet Take 1 tablet by mouth once daily. Loperamide HCl (IMODIUM) 2 mg tab Take two tabs by mouth to start then one tab after each loose bowel movement. Max of 8 in 24 hrs. benzonatate (TESSALON PERLE) 100 mg capsule Take 1 capsule by mouth three times daily as needed. cyanocobalamin (VITAMIN B-12) 1,000 mcg tab Take 1 tablet by mouth once daily. insulin 70/30 NPH/regular units/mL (NOVOLIN 70/30) Take 18 units in AM and 21 units in PM colestipol (COLESTID) 1 gram tablet Take 1 tablet by mouth once daily. clopidogrel (PLAVIX) 75 mg tablet Take 1 tablet by mouth once daily. aspirin, enteric coated (ASPIRIN, ENTERIC COATED) 81 mg EC tablet Take 1 tablet by mouth once daily. PCP: Dr. Stephens MEDICATION ADHERENCE: Poor; because voices tell her to stop taking pills. SUBSTANCE ABUSE HISTORY: Tobacco: Current usage is 1/2 pack / day. ETOH: Remote history of abuse or dependence. Age at onset 16 . Age at abstinence 46. ILLICIT SUBSTANCE USE: None ALLERGIES Allergen Reactions - Ibuprofen GI Upset - Penicillins Hives - Vicodin [Hydrocodon* GI Upset SOCIAL HISTORY: Born AND Raised in [place] Childhood: Good family environment. No history of physical, emotional or sexual abuse. Education: HS Drop-out; quit in 9th grade. Employment: Retired. Was a stay at home for many years. Did lots of little jobs here and there. Last job was working in the [employer] 2 yrs ago. Quit after 5 months. Now lives on social security. Relationships: 1st marriage at age 17. after 3 years. 2nd marriage at age 23. after 6 months. Says both husbands cheated on her. 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 Children: 5 children total. She got slightlyconfused giving this history. First said she only had 1 child from the first marriage, then changes it to 3 when asked who is the father of the other children. Current Supports Include: spouse/partner and adult children. Legal History: None Catholic Affiliations: Episcopalian. Goes to [employer] every Tuesday and catholic every Tuesday. FAMILY HISTORY: Sister sees a psychiatrist but she does not know why. Daughter: schizoaffective disorder, bipolar type Objective VITALS: BP 129/68 Pulse 85 Temp 36.3 ?C (97.3 ?F) Resp 16 Ht 160 cm (5' 3) Wt 83.5 kg (184 lb) LMP 08/06/1995 SpO2 99% BMI 32.59 kg/m? MENTAL STATUS EXAMINATION: Appearance: Casually dressed white female, Appears stated age and moderately groomed. Behavior: Appropriate. Orientation: Person, Place, Time and Situation Speech/Language: The patient demonstrates appropriate tone, prosody, mayda, phonetics, and syntax Mood/Affect: Happy and Hopeful Thought Form: Coherent and Logical Thought Content: Coherent Logical Suicidal Ideations: No suicidal ideation, intent or plan. Homicidal Ideations: No homicidal ideation, intent or plan. Insight: Limited Judgment: Limited Memory/Cognition: Intact Fund of knowledge: appropriate Attention/ Concentration: intact Abstract reasoning: did not understand proverbs because never heard them before. Likely secondary to a low education level. Otherwise, reasoning was appropriate. Psychomotor: Psychomotor activity was normal SUICIDE RISK ASSESSMENT APPLICABLE: No PHYSICAL EXAM: Blood pressure 129/68, pulse 85, temperature 36.3 ?C (97.3 ?F), resp. rate 16, height 160 cm (5' 3), weight 83.5 kg (184 lb), last menstrual period 08/06/1995, SpO2 99 %. GENERAL: Alert, no distress, cooperative. NEUROLOGIC: No gross abnormal findings including cranial nerves 2-12. MUSCULOSKELETAL: Normal muscle strength, Normal muscle tone and No involuntary movements. GAIT: Normal. DATA: Diagnostic tests reviewed for today's visit: No new labs TOXICOLOGY RESULTS FOR THE PAST 72 HOURS: None Assessment/Plan DIAGNOSIS: PRIMARY: Major depressive disorder with psychotic features R/o Bipolar disorder Unspecified anxiety disorder Insulin-dependent diabetes Coronary artery disease COPD Disposition: pending further discussion with her Psychiatrist and family. INFORMED CONSENT: Yes, completed with the Patient. Discussed the risks, benefits and alternatives to the medication(s) recommended. Consent was given. RISK ASSESSMENT: Suicide: Low Homicide: Low Deliberate Self-Harm: Low Aggression: Low Imminent Physical Self Impairment: Low PLAN: Medications: Invega 3 mg daily, [facility] 300 mg daily, Seroquel 50 mg po q bedtime. Safety Precautions: Standard Obtain Collateral From: Patient's daughter, Dr. White Discussed patient with Dr. Echols I performed a history and physical examination of the patient and discussed the management with the resident. I reviewed the resident's note and agree with the documented findings and plan of care. SIGNATURE: Kings García Ms, Josefa Lagos MD PATIENT NAME: Danielle Mary DATE: August 07, 2018 TIME: 12:23 PM PAGER/CONTACT#: CONSULT PROG Observed: 08/07/2018 Status: COMPLETED Source: [place] 10:03 AM [facility] OTHER CAMPUS REPOSITORY O ID: [id number] Author: Gerardo Christopher Service: General Internal Medicine Author Type: Physician Type: Consult Progress Note Filed: 08/07/2018 10:03 AM Note Text: INPATIENT PROGRESS NOTE SERVICE DATE: 08/07/2018 SERVICE TIME: 10:03 AM Subjective CHIEF COMPLAINT: MDD (major depressive disorder) PRIMARY SERVICE: Psych INTERVAL HPI: no changes medically Current hospital medications: insulin lispro 5 Units pen (rapid acting) (HumaLOG KWIKPEN) 5 Units SUBCUTANEOUS w MEALS AND HS insulin glargine 60 Units pen (long acting) (LANTUS SOLOSTAR, BASAGLAR KWIKPEN) 60 Units SUBCUTANEOUS DAILY (8 AM) budesonide 0.5 mg/2 mL 0.5 mg (PULMICORT) 0.5 mg INHALATION BID guaiFENesin-dextromethorphan 100-10 mg/5 mL 10 mL oral liquid (ROBITUSSIN DM) 10 mL ORAL q 6 H PRN Lip Protectant with Sunscreen SPF 15 1 application Stick (Blistex) 1 application TOPICAL PRN benzocaine-menthol 1 Lozenge (CEPACOL) 1 Lozenge MUCOUS MEMBRANE (TOPICAL MOUTH AND THROAT) q 2 H PRN traZODone 50 mg tab(s) (DESYREL) 50 mg ORAL HS PRN hydrOXYzine HCl 50 mg tab(s) (ATARAX) 50 mg ORAL q 6 H PRN acetaminophen 650 mg tab(s) (TYLENOL) 650 mg ORAL q 6 H PRN aluminum-magnesium hydroxide-simethicone 200-200-20 mg/5 mL 30 mL (MAALOX,MYLANTA,MAG-AL PLUS) 30 mL ORAL q 4 H PRN magnesium hydroxide 400 mg/5 mL 30 mL (MOM) 30 mL ORAL DAILY PRN nicotine 14 mg/24 hr 1 Patch (NICODERM) 1 Patch TRANSDERMAL DAILY nicotine -- REMOVE patch OTHER DAILY nicotine - verify patch OTHER q 8 H metoprolol tartrate (short acting) 25 mg tab(s) (LOPRESSOR) 25 mg ORAL q [address] 40 mg tab(s) (PROTONIX) 40 mg ORAL DAILY (6 AM) pioglitazone 45 mg tab(s) (ACTOS) 45 mg ORAL DAILY paliperidone ER 3 mg SR tablet (INVEGA) 3 mg ORAL DAILY aspirin 81 mg chewable tab(s) 81 mg ORAL DAILY atorvastatin 40 mg tab(s) (LIPITOR) 40 mg ORAL AT BEDTIME clopidogrel 75 mg tab(s) (PLAVIX) 75 mg ORAL DAILY cyanocobalamin 500 mcg (VITAMIN B-12) 500 mcg ORAL DAILY furosemide 40 mg tab(s) (LASIX) 40 mg ORAL DAILY dextrose 40 % 15 g 15 g ORAL PRN glucagon 1 mg injection (GLUCAGEN) 1 mg INTRAMUSCULAR PRN dextrose 50% in water 25 mL syringe 12.5 g INTRAVENOUS PRN lisinopril 5 mg tab(s) (ZESTRIL, PRINIVIL) 5 mg ORAL DAILY metFORMIN 1,000 mg tab(s) (GLUCOPHAGE) 1,000 mg ORAL BID w MEALS Objective PHYSICAL EXAM: BP 129/68 Pulse 85 Temp 97.3 Resp 16 Ht 5' 3 (1.60m) Wt 184 lb (83.5kg) SpO2 99% LMP 08/06/1995 BMI 32.60 kg/(m2). GENERAL: Alert, no distress, cooperative LUNGS: Lungs clear to auscultation, Good diaphragmatic excursion CARDIAC: Normal S1 and S2; no rubs, murmurs, or gallops ABDOMEN: Abdomen soft, non-tender, BS normal, No masses or organomegaly DATA: Diagnostic tests reviewed for today's visit: No new labs Assessment/Plan Principal Problem: MDD (major depressive disorder) POA: Yes Assessment AND Plan: psych Active Problems: CAD (coronary artery disease) POA: Yes Assessment AND Plan: cont meds Essential hypertension POA: Yes Assessment AND Plan: cont meds Mixed hyperlipidemia POA: Yes Assessment AND Plan: stable GERD without esophagitis POA: Yes Assessment AND Plan: cont meds Chronic obstructive pulmonary disease (HCC) POA: Yes Assessment AND Plan: cont meds Type 2 diabetes mellitus without complication, with long- term current use of insulin (HCC) POA: Yes Assessment AND Plan: cont meds Resolved Problems: * No resolved hospital problems. * Discussed with nursing SIGNATURE: Gerardo Christopher MD PATIENT NAME: Danielle Mary DATE: 08/07/2018 TIME: 10:03 AM PAGER: NURSING PROG Observed: 08/07/2018 Status: COMPLETED Source: [place] 8:34 AM CLINIC OTHER CAMPUS REPOSITORY HNO ID: [id number] Author: Sam (Rn) Kayli Winston RN Service: Nursing Author Type: Registered Nurse Type: Nursing Progress Note Filed: 08/07/2018 12:06 PM Note Text: Nursing Progress Note Patient Name: Danielle Mary Patient Location: [place] [address] [address]* Daily Note:Pt in day jaimes cooperative with staff. Pt denies SI, HI, A/V H. No distress noted. Pt appears bright in affect, focused on discharge appropriately. Pt compliant with AM medications. Pt safe per routine observation protocol. Will continue to monitor. This note was completed by: Sam Winston RN NURSING PROG Observed: 08/06/2018 Status: COMPLETED Source: [place] 7:[address] [facility] REPOSITORY HNO ID: [id number] Author: Maci (Rn) LIZBET Estrada Service: Behavioral Health Author Type: Registered Nurse Type: Nursing Progress Note Filed: 08/06/2018 10:24 PM Note Text: Pt in day jaimes when approached by RN for assessment. Pt calm, cooperative, and friendly. Pt states, I am feeling great! I am more than ready to go home tomorrow. Pt denies SI/HI/self harm/delusions/hallucinations. Pt denies anxiety and depression as well. Pt makes verbal contract for safety on unit. Pt encouraged to attend daily groups. Pt encouraged to seek staff with any questions/concerns/needs. Will continue to monitor pt for safety on unit. ALLIED HEALTH Observed: 08/06/2018 Status: COMPLETED Source: [place] 5:[address] [facility] REPOSITORY HNO ID: [id number] Author: Sophei (Therapist) Federico Eastman Service: Art Therapy Author Type: Therapist Type: Allied Health Filed: 08/06/2018 6:01 PM Note Text: PROGRESS NOTE BEHAVIORAL HEALTH Topic of Note: Group Participation SERVICE DATE: 08/06/2018 SERVICE TIME: 14:55-16:10 -A-Pt stated that they are feeling calm. Pt presented with moderate level of energy and appropriate affect. Pt actively participated in activity and discussion. Pt. said that she is taking over cheering for the Lejunior for her because she promised him she would.-I- Facilitated group re: Goal setting .Therapist provided opportunity to express thoughts and feelings. -E- Pt. could benefit from continued support, talking about her thought and feelings in group and an opportunity to learn positive coping skills. SIGNATURE: Sophie Eastman LPC PATIENT NAME: Danielle Mary DATE: August 06, 2018 TIME: 5:58 PM PAGER/CONTACT #: CONSULT PROG Observed: 08/06/2018 Status: COMPLETED Source: [place] 1:44 PM CLINIC OTHER CAMPUS REPOSITORY HNO ID: [id number] Author: Annabel Worrell Service: (none) Author Type: Physician Type: Consult Progress Note Filed: 08/06/2018 1:50 PM Note Text: INPATIENT PROGRESS NOTE SERVICE DATE: 08/06/2018 SERVICE TIME: 1:44 PM Subjective CHIEF COMPLAINT: MDD (major depressive disorder) PRIMARY SERVICE: Psych INTERVAL HPI: pt in upbeat mood. Admits to using sugar in coffe and eating fabio crackers often from kitchen. Current hospital medications: insulin lispro 5 Units pen (rapid acting) (HumaLOG KWIKPEN) 5 Units SUBCUTANEOUS w MEALS AND HS [START ON 08/07/2018] insulin glargine 60 Units pen (long acting) (LANTUS SOLOSTAR, BASAGLAR KWIKPEN) 60 Units SUBCUTANEOUS DAILY (8 AM) budesonide 0.5 mg/2 mL 0.5 mg (PULMICORT) 0.5 mg INHALATION BID guaiFENesin-dextromethorphan 100-10 mg/5 mL 10 mL oral liquid (ROBITUSSIN DM) 10 mL ORAL q 6 H PRN Lip Protectant with Sunscreen SPF 15 1 application Stick (Blistex) 1 application TOPICAL PRN benzocaine-menthol 1 Lozenge (CEPACOL) 1 Lozenge MUCOUS MEMBRANE (TOPICAL MOUTH AND THROAT) q 2 H PRN traZODone 50 mg tab(s) (DESYREL) 50 mg ORAL HS PRN hydrOXYzine HCl 50 mg tab(s) (ATARAX) 50 mg ORAL q 6 H PRN acetaminophen 650 mg tab(s) (TYLENOL) 650 mg ORAL q 6 H PRN aluminum-magnesium hydroxide-simethicone 200-200-20 mg/5 mL 30 mL (MAALOX,MYLANTA,MAG-AL PLUS) 30 mL ORAL q 4 H PRN magnesium hydroxide 400 mg/5 mL 30 mL (MOM) 30 mL ORAL DAILY PRN nicotine 14 mg/24 hr 1 Patch (NICODERM) 1 Patch TRANSDERMAL DAILY nicotine -- REMOVE patch OTHER DAILY nicotine - verify patch OTHER q 8 H metoprolol tartrate (short acting) 25 mg tab(s) (LOPRESSOR) 25 mg ORAL q [address] 40 mg tab(s) (PROTONIX) 40 mg ORAL DAILY (6 AM) pioglitazone 45 mg tab(s) (ACTOS) 45 mg ORAL DAILY paliperidone ER 3 mg SR tablet (INVEGA) 3 mg ORAL DAILY aspirin 81 mg chewable tab(s) 81 mg ORAL DAILY atorvastatin 40 mg tab(s) (LIPITOR) 40 mg ORAL AT BEDTIME clopidogrel 75 mg tab(s) (PLAVIX) 75 mg ORAL DAILY cyanocobalamin 500 mcg (VITAMIN B-12) 500 mcg ORAL DAILY furosemide 40 mg tab(s) (LASIX) 40 mg ORAL DAILY dextrose 40 % 15 g 15 g ORAL PRN glucagon 1 mg injection (GLUCAGEN) 1 mg INTRAMUSCULAR PRN dextrose 50% in water 25 mL syringe 12.5 g INTRAVENOUS PRN lisinopril 5 mg tab(s) (ZESTRIL, PRINIVIL) 5 mg ORAL DAILY metFORMIN 1,000 mg tab(s) (GLUCOPHAGE) 1,000 mg ORAL BID w MEALS Objective PHYSICAL EXAM: BP 110/63 Pulse 70 Temp 97.3 Resp 20 Ht 5' 3 (1.60m) Wt 184 lb (83.5kg) SpO2 99% LMP 08/06/1995 BMI 32.60 kg/(m2). GENERAL: Alert, no distress, cooperative, Smiling LUNGS: Lungs clear to auscultation, Good diaphragmatic excursion CARDIAC: Rhythm: regular rate and rhythm ABDOMEN: Soft, nontender and po OK EXTREMITIES: ambulates easily, no edema DATA: Diagnostic tests reviewed for today's visit:blood sugars still highblood sugars still high Assessment/Plan Principal Problem: MDD (major depressive disorder) POA: Yes Assessment AND Plan: per psych Active Problems: CAD (coronary artery disease) POA: Yes Assessment AND Plan: on home meds Essential hypertension POA: Yes Assessment AND Plan: stable Mixed hyperlipidemia POA: Yes Assessment AND Plan: statin GERD without esophagitis POA: Yes Assessment AND Plan: on PPi Chronic obstructive pulmonary disease (HCC) POA: Yes Assessment AND Plan: no current MDIs, needs outpt spirometry Type 2 diabetes mellitus without complication, with long- term current use of insulin (HCC) POA: Yes Assessment AND Plan: uncontrolled. Change to AC + long acting insulin per SOC. Pt has medicare without D coverage. Will get social work to assist. possibly can get pt assistance with pharmaceutical company Resolved Problems: * No resolved hospital problems. * Discussed with nursing SIGNATURE: Annabel Worrell MD PATIENT NAME: Danielle Mary DATE: 08/06/2018 TIME: 1:44 PM PAGER: ALLIED HEALTH Observed: 08/06/2018 Status: COMPLETED Source: [place] 1:31 PM [facility] OTHER CENTER POINT REPOSITORY HNO ID: [id number] Author: Sophie (Therapist) Federico Eastman Service: Art Therapy Author Type: Therapist Type: Allied Health Filed: 08/06/2018 1:33 PM Note Text: PROGRESS NOTE BEHAVIORAL HEALTH Topic of Note: Group Participation SERVICE DATE: 08/06/2018 SERVICE TIME: 10:05-11:10 -A-Pt stated that they are feeling happy. Pt presented with moderate level of energy and appropriate affect. Pt participated in activity and discussion. Pt. Admitted she has been sober for seventeen years and received support and cheers from the group. -I- Facilitated group re: Boundaries and personal rights/responsiblities.Therapist provided opportunity to express thoughts and feelings. -E- Pt. could benefit from continued support, talking about her thoughts and feelings and an opportunity to learn positive coping skills. SIGNATURE: Sophie Eastman LPC PATIENT NAME: Danielle Mary DATE: August 06, 2018 TIME: 1:31 PM PAGER/CONTACT #: ALLIED HEALTH Observed: 08/06/2018 Status: COMPLETED Source: [place] 11:[address] 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 Played music and gave brief talk on giving thanks and communicating with God. Had closing prayer. To contact the Spiritual Care Department: Please call .. SIGNATURE: Chaplain Hortencia PATIENT NAME: Danielle Mary DATE: August 06, 2018 TIME: 12:19 PM PAGER/CONTACT #: [id number] NURSING PROG Observed: 08/06/2018 Status: COMPLETED Source: [place] 10:[address] [facility] REPOSITORY HNO ID: [id number] Author: Kay LandrumRn) LIZBET Miller Service: Behavioral Health Author Type: Registered Nurse Type: Nursing Progress Note Filed: 08/06/2018 10:54 AM Note Text: Nursing Progress Note Patient Name: Danielle Mary Patient Location: [id number]/[facility]* Daily Note: Pt sitting up on side of bed upon this RNs approach. Pt pleasant and cooperative with assessment. Pt denies SI/HI/AH/VH, anxiety or depression. Pt was completing word search and wrote I feel great and awesome on the paper. Pt compliant with medication and denies SE to meds. Pt reports sleeping well and appetite is good. Pt dressed in own clothes and hygiene appears appropriate. This RN encouraged group attendance, socialization, and to seek staff if concerns arise. Will continue to monitor. This note was completed by: Kay Miller RN NURSING PROG Observed: 08/05/2018 Status: COMPLETED Source: [place] 7:[address] [facility] REPOSITORY HNO ID: [id number] Author: Eduardo LandrumRn) LIZBET Spaulding Service: Nursing Author Type: Registered Nurse Type: Nursing Progress Note Filed: 08/05/2018 7:49 PM Note Text: Nursing Progress Note Patient Name: Danielle Mary Patient Location: [id number]/[facility]* Daily Note: Pt is in the day jaimes watching television. No voiced complaints. Pt is calm and cooperative and states I feel great tonight. Pt verbalizes safety. Pt denies SI/HI/ AV hallucinations. Encouraged pt to seek staff for any concerns. Will continue to monitor. Pt safe on unit. This note was completed by: Eduardo Spaulding RN ALLIED HEALTH Observed: 08/05/2018 Status: COMPLETED Source: [place] 4:[address] [facility] REPOSITORY HNO ID: [id number] Author: Sophie (Therapist) Federico Eastman Service: Art Therapy Author Type: Therapist Type: Allied Health Filed: 08/05/2018 5:00 PM Note Text: PROGRESS NOTE BEHAVIORAL HEALTH Topic of Note: Group Participation SERVICE DATE: 08/05/2018 SERVICE TIME: 14:40-15:35 -A-Pt stated that they are feeling great. Pt presented with moderate level of energy and appropriate affect. Pt actively participated in activity and discussion. -I- Facilitated group re: Distraction -a coping skill .Therapist provided opportunity to express thoughts and feelings. -E- Pt. could benefit from continued support, talking about her thoughts and feelings in group and an opportunity to learn positive coping skills. SIGNATURE: Sophie Eastman LPC PATIENT NAME: Danielle Mary DATE: August 05, 2018 TIME: 4:58 PM PAGER/CONTACT #: [email or web address] Observed: 08/05/2018 Status: COMPLETED Source: [place] 10:[address] [facility] REPOSITORY HNO ID: [id number] Author: Annabel Worrell Service: (none) Author Type: Physician Type: Consults Filed: 08/05/2018 10:57 AM Note Text: CONSULT: MEDICAL SERVICE SERVICE DATE: 08/05/2018 SERVICE TIME: 10:50 AM REASON FOR CONSULT: medical management Subjective Ms. Mary is a 63 year old female who presents for . Transferred from [facility]. FUNCTIONAL STATUS: Independent PAST MEDICAL HISTORY Diagnosis Date - CAD (coronary artery disease) 08/06/[address] Quesada. Has one stent - Cataracts, bilateral - Chronic diastolic heart failure (HCC) - Chronic obstructive pulmonary disease (COPD) ([facility]) - Diabetes mellitus type 2, uncomplicated (HCC) 08/06/2015 - Essential hypertension 08/06/2015 - GERD without esophagitis 08/06/2015 - Heart attack (HCC) - Mixed hyperlipidemia 08/06/2015 - Morbid obesity (HCC) - JESUS (obstructive sleep apnea) - Snoring - Vision loss PAST SURGICAL HISTORY Procedure Laterality Date - CHOLECYSTECTOMY wasn't working - COLONOSCOP W/ OR W/O BRSH SPEC 10/13/15 Colonoscopy - SIS CATHERIZATION 02/05/16 recomendation was medical management - STENT PLACEMENT 02/09/2014 - STRESS TEST 01/09/2016 NL - TOTAL ABDOM HYSTERECTOMY FAMILY HISTORY Problem Relation Age of Onset - Heart Mother - Heart Father - Diabetes Mother - Diabetes Father - Hypertension Mother - Hypertension Father - Heart Brother - Colon Cancer Mother in her bowels Social History Substance Use Topics - Smoking status: Former Smoker Packs/day: 0.50 Types: Cigarettes Start date: 11/25/2015 - Smokeless tobacco: Not on file - Alcohol use No Prescriptions Prior to Admission: insulin 70/30 insulin aspart prt/insulin aspart units/mL (NOVOLOG MIX 70/30) 100 units/mL injection 24 Units by SUBDERMAL route. Disp: Rfl: ASPIRIN LOW DOSE ORAL Take 1 tablet by mouth once daily. Disp: Rfl: vitamin B complex (B COMPLEX-VITAMIN B12 ORAL) B Complex-Vitamin B12 oral Disp: Rfl: cholecalciferol, Vitamin D3, (VITAMIN D3) 50,000 unit cap capsule Take 1 capsule by mouth once each week. Disp: Rfl: 2 furosemide (LASIX) 40 mg tablet Take 40 mg by mouth once daily. Disp: Rfl: 1 furosemide (LASIX) 20 mg tablet Lasix 20 mg tablet Disp: Rfl: atorvastatin (LIPITOR) 40 mg tablet Lipitor 40 mg tablet Disp: Rfl: LISINOPRIL ORAL lisinopril oral Disp: Rfl: metformin HCl (METFORMIN ORAL) metformin oral Disp: Rfl: METOPROLOL TARTRATE ORAL metoprolol tartrate oral Disp: Rfl: pantoprazole sodium (PANTOPRAZOLE ORAL) pantoprazole oral Disp: Rfl: pioglitazone (ACTOS) 15 mg tablet pioglitazone 15 mg tablet Disp: Rfl: clopidogrel (PLAVIX) 75 mg tablet Plavix 75 mg tablet Disp: Rfl: aspirin 81 mg chewable tablet Take 81 mg by mouth. Disp: Rfl: metoprolol tartrate, short acting, (LOPRESSOR) 25 mg tablet Take 1 tablet by mouth twice daily. Disp: 60 tablet Rfl: [address] (PROTONIX) 40 mg tablet Take 1 tablet by mouth daily before breakfast. Take on empty stomach, 1/2 hr before meal. Disp: 30 tablet Rfl: 5 metFORMIN (GLUCOPHAGE) 1,000 mg tablet Take 1 tablet by mouth twice daily with meals. Disp: 60 tablet Rfl: 5 lisinopril (ZESTRIL, PRINIVIL) 5 mg tablet Take 1 tablet by mouth once daily. Disp: 30 tablet Rfl: 5 Insulin Syringe-Needle U-100 (ULTRA FINE INSULIN) 1 mL 30 gauge x 1/2 syrg Use one needle with each injection twice a day. Dx E11.9 on insulin Disp: 100 Syringe Rfl: 3 atorvastatin (LIPITOR) 40 mg tablet Take 1 tablet by mouth once daily. Disp: 30 tablet Rfl: 5 pioglitazone (ACTOS) 45 mg tablet Take 1 tablet by mouth once daily. Disp: 30 tablet Rfl: 5 furosemide (LASIX) 20 mg tablet Take 1 tablet by mouth once daily. Disp: 30 tablet Rfl: 3 Loperamide HCl (IMODIUM) 2 mg tab Take two tabs by mouth to start then one tab after each loose bowel movement. Max of 8 in 24 hrs. Disp: 30 tablet Rfl: 1 benzonatate (TESSALON PERLE) 100 mg capsule Take 1 capsule by mouth three times daily as needed. Disp: 60 capsule Rfl: 1 cyanocobalamin (VITAMIN B-12) 1,000 mcg tab Take 1 tablet by mouth once daily. Disp: 30 tablet Rfl: 11 insulin 70/30 NPH/regular units/mL (NOVOLIN 70/30) Take 18 units in AM and 21 units in PM Disp: 1 Vial Rfl: 11 colestipol (COLESTID) 1 gram tablet Take 1 tablet by mouth once daily. Disp: 30 tablet Rfl: 11 clopidogrel (PLAVIX) 75 mg tablet Take 1 tablet by mouth once daily. Disp: 30 tablet Rfl: 11 10/08/2015 at 0900 aspirin, enteric coated (ASPIRIN, ENTERIC COATED) 81 mg EC tablet Take 1 tablet by mouth once daily. Disp: Rfl: 0 10/08/2015 Current hospital medications: [START ON 08/06/2018] insulin 70/30 NPH/regular units/mL 30 Units inj pen (mixed intermediate and short acting) (HumuLIN 70/30, NovoLIN 70/30) 30 Units SUBCUTANEOUS DAILY (8 AM) insulin 70/30 NPH/regular units/mL 40 Units inj pen (mixed intermediate and short acting) (HumuLIN 70/30, NovoLIN 70/30) 40 Units SUBCUTANEOUS DAILY wDINNER insulin lispro 5 Units pen (rapid acting) (HumaLOG KWIKPEN) 5 Units SUBCUTANEOUS DAILY wLUNCH budesonide 0.5 mg/2 mL 0.5 mg (PULMICORT) 0.5 mg INHALATION BID guaiFENesin-dextromethorphan 100-10 mg/5 mL 10 mL oral liquid (ROBITUSSIN DM) 10 mL ORAL q 6 H PRN Lip Protectant with Sunscreen SPF 15 1 application Stick (Blistex) 1 application TOPICAL PRN benzocaine-menthol 1 Lozenge (CEPACOL) 1 Lozenge MUCOUS MEMBRANE (TOPICAL MOUTH AND THROAT) q 2 H PRN traZODone 50 mg tab(s) (DESYREL) 50 mg ORAL HS PRN hydrOXYzine HCl 50 mg tab(s) (ATARAX) 50 mg ORAL q 6 H PRN acetaminophen 650 mg tab(s) (TYLENOL) 650 mg ORAL q 6 H PRN aluminum-magnesium hydroxide-simethicone 200-200-20 mg/5 mL 30 mL (MAALOX,MYLANTA,MAG-AL PLUS) 30 mL ORAL q 4 H PRN magnesium hydroxide 400 mg/5 mL 30 mL (MOM) 30 mL ORAL DAILY PRN nicotine 14 mg/24 hr 1 Patch (NICODERM) 1 Patch TRANSDERMAL DAILY nicotine -- REMOVE patch OTHER DAILY nicotine - verify patch OTHER q 8 H metoprolol tartrate (short acting) 25 mg tab(s) (LOPRESSOR) 25 mg ORAL q [address] 40 mg tab(s) (PROTONIX) 40 mg ORAL DAILY (6 AM) pioglitazone 45 mg tab(s) (ACTOS) 45 mg ORAL DAILY paliperidone ER 3 mg SR tablet (INVEGA) 3 mg ORAL DAILY aspirin 81 mg chewable tab(s) 81 mg ORAL DAILY atorvastatin 40 mg tab(s) (LIPITOR) 40 mg ORAL AT BEDTIME clopidogrel 75 mg tab(s) (PLAVIX) 75 mg ORAL DAILY cyanocobalamin 500 mcg (VITAMIN B-12) 500 mcg ORAL DAILY furosemide 40 mg tab(s) (LASIX) 40 mg ORAL DAILY dextrose 40 % 15 g 15 g ORAL PRN glucagon 1 mg injection (GLUCAGEN) 1 mg INTRAMUSCULAR PRN dextrose 50% in water 25 mL syringe 12.5 g INTRAVENOUS PRN lisinopril 5 mg tab(s) (ZESTRIL, PRINIVIL) 5 mg ORAL DAILY metFORMIN 1,000 mg tab(s) (GLUCOPHAGE) 1,000 mg ORAL BID w MEALS Allergies As of Date: 08/04/2018 Allergen Noted Reaction IBUPROFEN 08/06/2015 GI Upset PENICILLINS 08/06/2015 Hives VICODIN [HYDROCODONE-ACETAMINOPHE*08/06/2015 GI Upset Fully Assessed 08/04/2018 COMPLETE REVIEW OF SYSTEMS: GENERAL: No weight loss, malaise or fevers HEENT: Negative for frequent or significant headaches, No changes in hearing or vision, no nose bleeds or other nasal problems RESPIRATORY: Negative for hemoptysis, wheezing, dyspnea or shortness of breath. Positive for cough - COPD per chart CARDIOVASCULAR: Negative for chest pain, leg swelling, hypertension, CHF or palpitations GI: No nausea, vomiting, or diarrhea and No heartburn or reflux symptoms : No history of dysuria, frequency or incontinence MUSCULOSKELETAL: Negative for joint pain or swelling, back pain or muscle pain SKIN: Negative for lesions, rash, and itching Objective PHYSICAL EXAM: GENERAL: Alert, no distress, cooperative SKIN: Skin color, texture, turgor normal. No rashes or lesions. OROPHARYNX: Lips, mucosa, and tongue normal. Teeth and gums normal. Oropharynx normal. LUNGS: Good diaphragmatic excursion. Scattered rhonchi, no wheezing CARDIAC: Normal S1 and S2; no rubs, murmurs, or gallops ABDOMEN: Abdomen soft, non-tender, BS normal, No masses or organomegaly EXTREMITIES: Extremities normal, no deformities, edema, clubbing or skin discoloration. Good capillary refill. PULSES: 2+ radial, 2+ carotid Patient Vitals for the past 24 hrs: BP Temp Pulse Resp SpO2 Height Weight 08/05/18 0700 105/56 36.3 ?C (97.3 ?F) 74 16 98 % - - 08/04/181999 126/69 - 84 - 99 % - - 08/04/18 1424 128/74 36.6 ?C (97.9 ?F) 82 18 - - - 08/04/18 1414 - - - - - 160 cm (5' 3) 83.5 kg (184 lb) Body mass index is 32.59 kg/m?. DATA: Diagnostic tests reviewed for today's visit: Most recent labs and imaging results. Impression/Recommendations Principal Problem: MDD (major depressive disorder) POA: Yes Assessment AND Plan: per psych Active Problems: CAD (coronary artery disease) POA: Yes Assessment AND Plan: home meds Essential hypertension POA: Yes Assessment AND Plan: home meds Mixed hyperlipidemia POA: Yes Assessment AND Plan: stable GERD without esophagitis POA: Yes Assessment AND Plan: on PPI Chronic obstructive pulmonary disease (HCC) POA: Yes Assessment AND Plan: add breo for acute sx Type 2 diabetes mellitus without complication, with long- term current use of insulin (HCC) POA: Yes Assessment AND Plan: increase insulin. noncompliant at home Resolved Problems: * No resolved hospital problems. * Discussed with nursing SIGNATURE: Annabel Worrell MD PATIENT NAME: Danielle Mary DATE: 08/05/2018 TIME: 10:50 AM PAGER: NURSING PROG Observed: 08/05/2018 Status: COMPLETED Source: [place] 10:05 AM [facility] OTHER [facility] REPOSITORY HNO ID: [id number] Author: Kay (Rn) LIZBET Miller Service: Behavioral Health Author Type: Registered Nurse Type: Nursing Progress Note Filed: 08/05/2018 10:12 AM Note Text: Nursing Progress Note Patient Name: Danielle Mary Patient Location: [place] [address]/[place] [address]* Daily Note: Pt lying in bed upon this RNs approach. Pt pleasant and cooperative with assessment. Pt denies SI/HI/AH/VH, anxiety or depression. Pt reports she slept well last pm like a baby and has not heard any voices at all today. Pt compliant with medication and denies SE to meds. Pt reports sleeping well and appetite is good. Pt dressed in hospital gown and hygiene appears appropriate. This RN encouraged group attendance, socialization, and to seek staff if concerns arise. Will continue to monitor. This note was completed by: Kay Miller RN PROGRESS Observed: 08/05/2018 Status: COMPLETED Source: [place] 1:[address] [facility] REPOSITORY HNO ID: [id number] Author: Downtime Note Service: (none) Author Type: (none) Type: Progress Notes Filed: 08/05/2018 2:04 AM Note Text: Epic Scheduled Downtime: 08/05/2018 12:00:01 AM to 08/05/2018 1:54:00 AM NURSING PROG Observed: 08/04/2018 Status: COMPLETED Source: [place] 9:[address] [facility] REPOSITORY HNO ID: [id number] Author: Quynh (Rn) LIZBET Galdamez Service: Nursing Author Type: Registered Nurse Type: Nursing Progress Note Filed: 08/04/2018 10:49 PM Note Text: Nursing Progress Note Patient Name: Danielle Mary Patient Location: [place] [address]/[place] [address]* Daily Note: Patient is calm cooperative and compliant with medication. Patient denies SI, HI, VH, and thoughts of self harm. Patient contracts for safety. Patient states to nurse I don't feel like I belong here. Patient elaborates the voices are telling me that I don't belong here. Patient states she feels a little bit crappy, when asked what is making her feel crappy, patient states I don't know. Patient rates anxiety 9/10 related to being here and denies depression. Patient reports poor sleep and good appetite. PRN trazodone administered for insomnia upon request. Patient reports she is not attending groups. Patient encouraged to attend groups. Patient encouraged to seek staff with any concerns. Will continue to monitor. This note was completed by: Quynh Galdamez RN EMERGENCY DEPARTMENT Observed: 08/04/2018 Status: F Source: [place] SUMMARY 5:38 PM [facility] REPOSITORY [facility] Medical Records Department [address] [place] [address] Emergency Department Summary 07/28/18 1158 MR#: [id number] Acct: [id number] Name: DANIELLE MARY Rep #: [id number] : 1955 62 From: Parker Moulton DO PCP: Selvin Vega Status: DEP ER ADDENDUM by Parker Moulton DO on 08/04/18 at 1738 Emergency department course: Patient was given IV fluids. Patient felt better on reevaluation. Disposition: Discharged home Impression: Nausea, vomiting, and diarrhea 08/04/18 1738 Date Parker Moulton DO cc: Selvin VILLATORO * Signed - ER Visit Summary Date of Service: 07/28/18 Chief Complaint: Nausea, vomiting, diarrhea History of Present Illness: The patient is a 62 F who presents with nausea, vomiting, diarrhea, chest pain, and back pain that has been constant for the past 2 days. Patient describes her pain as sharp. Patient states the pain is over her substernal area and radiates into her back. Patient states she has been unable to keep anything down for the past 2 days. Patient denies any fevers but admits to subjective chills. Patient admits to some rhinorrhea. Patient states her diarrhea is yellow. Patient denies any abdominal pain. Physical Examination: Vital signs are stable. Patient is afebrile. Patient is in no acute distress. Oral mucosa is pink and moist. Neck is supple. Trachea is midline. There is no JVD noted. Heart was regular rate and rhythm. Lungs are clear and equal bilaterally. There is good respiratory effort noted. Abdomen is soft. Bowel sounds are normal. There is no tenderness. There is no guarding noted. Cranial nerves II through XII are intact. There are no focal motor or sensory deficits noted. The remaining physical exam is within normal limits. Test Results: [] Emergency Department Course and Treatment: [] Treatment Plan: [] Disposition: [] Impression: [] This note was generated with [employer] dictation software. It may contain incorrect words, spelling, and punctuation that were not noted in review of the chart prior to signing ED Disposition - Plan for ED Patient: Disposition: Home or Assisted Living Chief Complaint: Shortness of Breath Diagnosis: Nausea vomiting and diarrhea Instructions: ED Gastroenteritis Viral, ED Diet Vomiting Diarrhea Prescriptions: Ondansetron [Zofran Odt] 4 mg PO Q8H PRN PRN #12 tab PRN Reason: Vomiting What to do if you have Problems For any increased pain, shortness of breath, bleeding, nausea or vomiting, chest pain, or any unexpected problems, contact your Primary Care Provider. Call [facility] ([phone]) or report to the closest Emergency Room. Call 911 if necessary. 07/28/18 1444 <Electronically signed by Parker Moulton DO> Date Parker Moulton DO Cosigner Signature (If Indicated): Date CC: Selvin VILLATORO ALLIED HEALTH Observed: 08/04/2018 Status: COMPLETED Source: [place] 4:55 PM [facility] OTHER CAMPUS REPOSITORY [facility] ID: [id number] Author: Safia Crespo (Therapist) Yifan Service: (none) Author Type: Therapist Type: Allied Health Filed: 08/04/2018 4:59 PM Note Text: PROGRESS NOTE BEHAVIORAL HEALTH Topic of Note: Group Therapy Assessment SERVICE DATE: 08/04/2018 SERVICE TIME: Pt is a 63 year old female who was admitted to [facility] due to auditory hallucinations. Current Stressors: Pt reports having increased auditory hallucinations telling her to stop her medications. Pt has questionable compliance with her medications due to her admitting she is attempting to taper herself off of them. Pt has been irritable and quiles with family. Pt is appropriate for group and is encouraged to attend. Pt could benefit from continued support, talking about thoughts and feelings in group and a opportunity to learn new coping skills. SIGNATURE: Safia Saha, Adjunctive Therapist PATIENT NAME: Danielle Mary DATE: August 04, 2018 TIME: 4:55 PM PAGER/CONTACT #: ROSALBA BALDERRAMAG Observed: 08/04/2018 Status: COMPLETED Source: [place] 2:34 PM [facility] OTHER CAMPUS REPOSITORY HNO ID: [id number] Author: Laury (Rn) LIZBET Lunsford Service: Behavioral Health Author Type: Registered Nurse Type: Nursing Progress Note Filed: 08/04/2018 2:38 PM Note Text: Nursing Progress Note Patient Name: Danielle Mary Patient Location: [place] [address] [address]* Daily Note: Danielle is admitted from [facility] to 6400. Patient had been brought from psych provider at [facility]. Patient verbalizes having increasing auditory hallucinations telling her to stop her medications. The patient does admit to attempting to taper herself off her medications and has questionable compliance. Patient reports being increasingly irritable and quiles with family. She lives with her and daughter. Patient verbally contracts for safety on the unit. Patient is encouraged to seek out staff with needs/concerns. No s/s distress observed. Her behavior is in control. Safe per routine observation. Patient is oriented to unit, unit guidelines, caregviers, and behaviors expectations. Welcome packet given. Will continue to monitor for safety on the unit. This note was completed by: Laury Lunsford RN BEDSIDE GLUCOSE Collected: 08/04/2018 Status: F Source: [place] 12:01 PM [facility] REPOSITORY TYPE CODE TESTS RESULT OUT OF REFERENCE UNITS RANGE LAB L501.080 70-110 mg/dL High BEDSIDE GLU 363 Result Comment: MANAGEMENT OF PATIENT CARE PER NURSING PROTOCOL Performed By: #### L501.080 #### [facility] Laboratory Point of Care [address] [place] [address] EMERGENCY DEPARTMENT Observed: 08/04/2018 Status: F Source: [place] SUMMARY 11:38 AM [facility] REPOSITORY [facility] Medical Records Department [address] [place] [address] Emergency Department Summary 08/04/18 1135 MR#: [id number] Acct: [id number] Name: DANIELLE MARY Rep #: [id number] : 1955 63 From: Parker Moulton DO PCP: Gato Salcedo MD Status: PRE ER - ER Visit Summary Date of Service: 08/04/18 Chief Complaint: Depression History of Present Illness: The patient is a 63 F who presents with depression that has been getting worse over the past couple weeks. Patient saw her psychiatrist today who states that the patient needs to be admitted to [facility]. Patient was referred to the emergency department to arrange for transportation to [facility]. Patient will be admitted directly to the psychiatric unit there. Patient admits to some depression but denies any suicidal ideations at the present time. Patient admits to some auditory hallucinations. Patient denies any chest pain or shortness of breath. Patient denies any nausea or vomiting. Physical Examination: Vital signs are stable. Patient is afebrile. Patient is in no acute distress. Oral mucosa is pink and moist. Neck is supple. Trachea is midline. There is no JVD noted. Heart was regular rate and rhythm. Lungs are clear and equal bilateral. There is good respiratory effort noted. Abdomen is soft and nontender. Cranial nerves II through XII are intact. There are no focal motor or sensory deficits noted. Patient has a depressed mood and flat affect. Patient currently denies any suicidal ideations. Emergency Department Course and Treatment: Case was discussed with the patient's psychiatrist. Patient will be transferred to [facility]. Disposition: Transfer to [facility] Impression: Depression, auditory hallucinations This note was generated with [employer] dictation software. It may contain incorrect words, spelling, and punctuation that were not noted in review of the chart prior to signing ED Disposition - Plan for ED Patient: Disposition: [facility] Chief Complaint: Suicidal Diagnosis: Depression, Auditory hallucinations Referrals: Gato Salcedo MD [Primary Care Provider] - What to do if you have Problems For any increased pain, shortness of breath, bleeding, nausea or vomiting, chest pain, or any unexpected problems, contact your Primary Care Provider. Call [facility] ([phone]) or report to the closest Emergency Room. Call 911 if necessary. 08/04/18 1138 <Electronically signed by Parker Moulton DO> Date Parker Muolton DO Cosigner Signature (If Indicated): Date CC: Gato Salcedo MD 12 LEAD ELECTROCARDIOGRAM Observed: 07/31/2018 Status: F Source: [place] 12:52 PM [facility] REPOSITORY [facility] Cardiovascular Services [address] [place] [address] 12 Lead EKG 07/28/18 1151 MR#: [id number] Acct: [id number] Name: DANIELLE MARY Rep #: [id number] : 1955 62 From: Kiran Fitzgerald MD Attending Dr: Status: DEP ER Ordering Dr: Parker Moulton DO Date: 07/28/18 Location: ED Sex: F C Admitted: Test Reason : SOB Blood Pressure : / mmHG Vent. Rate : 083 BPM Atrial Rate : 083 BPM P-R Int : 138 ms QRS Dur : 082 ms QT Int : 404 ms P-R-T Axes : 050 029 035 degrees QTc Int : 474 ms Normal sinus rhythm Normal ECG Confirmed by HENRY BARFIELD, KIRAN ([id number]), web content editor ALEX EASTON ([id number]) on 07/31/2018 12:52:35 PM Referred By: Germain White Confirmed By:KIRAN FITZGERALD MD 07/31/18 1252 Date Kiran Fitzgerald MD CC: Parker Moulton DO; Selvin VILLATORO Signed EMERGENCY DEPARTMENT Observed: 07/29/2018 Status: F Source: [place] SUMMARY 2:33 PM [facility] REPOSITORY [facility] Medical Records Department [address] [place] [address] Emergency Department Summary 07/29/18 1428 MR#: [id number] Acct: [id number] Name: DANIELLE MARY Rep #: [id number] : 1955 62 From: Mesfin Patel MD PCP: Gato Salcedo MD Status: REG ER - ER Visit Summary Date of Service: 07/29/18 Chief Complaint: Nausea, vomiting and diarrhea with hoarse voice that has gotten worse since yesterday. History of Present Illness: The patient is a 62 F who was seen yesterday for viral illness. Workup was unremarkable. She states her symptoms have gotten worse. She reports vomiting 5 times since this morning and for loose stools. She also states her voice is hoarse. She has a nonproductive cough. She also complains of bifrontal headache with generalized weakness. She denied fever but complained of chills. She does report sore throat. Review of systems otherwise negative. Please read written note for complete detail Physical Examination: Vital signs noted and unremarkable. Head is atraumatic normocephalic. Pupils are equal round reactive. Extraocular muscles are intact. TMs are pearly white with landmarks noted. Nares patent with no drainage. Posterior pharynx without erythema or exudate. Uvula is midline. There is no dysphonia or dysphasia. Tongue and buccal mucosa are dry trachea is midline. There is no stridor with auscultation of the neck. Heart is regular without murmur, gallop or rub. S1 and S2 are normal. Lungs are clear to auscultation with good movement of air bilaterally. Abdomen is soft and nontender. There is no guarding or peritoneal findings. There is no palpable pulsatile mass. There is no abdominal bruit. Salas sign is negative. Negative Rovsing sign. There is no evidence of inguinal or umbilical hernia. Neuro exam is nonfocal. Test Results: Basic metabolic panel is marked for glucose of 405 and creatinine of 1.06. Emergency Department Course and Treatment: Since patient reports no improvement and continued vomiting diarrhea a BMP was obtained to assess kidney function and blood sugar since she is diabetic. Treatment Plan: Normal saline 1 L wide open, Zofran 4 mg IV push and p.o. challenge. Patient did passed p.o. challenge. Because of her elevated blood sugar she was treated with subcu insulin Disposition: Discharged home Impression: 1. Abdominal pain with nausea, vomiting and diarrhea 2. Acute viral illness, pharyngitis 3. Mild dehydration 4. Hyper glycemia type II diabetic on insulin This note was generated with Avner[employer] dictation software. It may contain incorrect words, spelling, and punctuation that were not noted in review of the chart prior to signing ED Disposition - Plan for ED Patient: Disposition: Home or Assisted Living Chief Complaint: Nausea/Vomiting/Diarrhea Instructions: ED Vomiting Diarrhea Nonspecific Ad, ED Viral Syndrome, ED Hyperglycemia Diabetic Prescriptions: Ondansetron [Zofran Odt] 4 mg PO Q8H PRN PRN #10 tablet PRN Reason: Nausea Referrals: Gato Salcedo MD [Primary Care Provider] - 3-5 Days Additional Instructions: Your prescription was electronically transmitted to [facility]; your preferred pharmacy. What to do if you have Problems For any increased pain, shortness of breath, bleeding, nausea or vomiting, chest pain, or any unexpected problems, contact your Primary Care Provider. Call [facility] ([phone]) or report to the closest Emergency Room. Call 911 if necessary. 07/29/18 1433 <Electronically signed by Mesfin Patel MD> Date Mesfin Patel MD Cosigner Signature (If Indicated): Date CC: Gato Salcedo MD BASIC METABOLIC Collected: 07/29/2018 Status: F Source: LI PROFILE (BMP) 12:50 PM [facility] REPOSITORY TYPE CODE TESTS RESULT OUT OF RANGE REFERENCE UNITS LAB L501.0100 74-106 mg/dL High GLU 405 Result Comment: Glucose result greater than or equal to 200 mg/dL suggests DIABETES MELLITUS per A.D.A. criteria. Please note revised GLUCOSE reference range effective 2017. LAB L501.1000 7-18 mg/dL Normal BUN 10 LAB L501.1100 0.55-1.02 mg/dL High CREAT,SERUM 1.06 Result Comment: The validity of the calculated GFR AND GFRAA in patients over 70 years has not been determined. Clinical correlation is essential. LAB L501.1110 >60 mL/min Low EST GFR 55 Result Comment: Non- GFR Calc LAB L501.1115 >60 mL/min Normal EST GFR - AA 67 Result Comment: GFR Calc LAB L501.1255 ml/min Normal Estimated CRCL 44.35 LAB L501.1300 10-20 RATIO Low BUN/CRE 9.4 LAB L501.2200 8.5-10 mg/dL Normal .1 CA 9.0 LAB L501.5300 136-14 mmol/L Low 5 NA 135 LAB L501.5600 3.5-5. mmol/L Normal 1 K 4.0 LAB L501.5900 98-107 mmol/L Normal CL 101 LAB L501.6100 21.0-3 mmol/L Normal 2.0 CO2 24.0 LAB L501.6200 5-15 Normal GAP 10 Performed By: #### L500.2500 #### [facility] [address] [place], [address] URINALYSIS, COMPLETE Collected: 07/28/2018 Status: F Source: [place] 1:56 PM [facility] REPOSITORY Order Comment: Order Date: 07/28/18 How was Urine Obtained? CLEAN CATCH TYPE CODE TESTS RESULT OUT OF RANGE REFERENCE UNITS LAB L400.3000 Yellow COLOR Normal Yellow LAB L400.3050 Clear Normal CLARITY Sl. Cloudy LAB L400.3200 Normal mg/dl High GLUCOSE, UR 1000 LAB L400.3300 Negative mg/dL Normal BILIRUBIN URINE Negative LAB L400.3400 Negative mg/dl Normal KETONE UR Negative LAB L400.3465 1.002-1.030 Normal SP.GR. DIPSTX 1.010 LAB L400.3550 5.0 - 8.0 pH UR Normal 6.0 LAB L400.3600 Negative mg/dl PROT Normal DIPSTX Negative LAB L400.3700 Normal mg/dl Normal UROBILI Normal LAB L400.3750 Negative Normal NITRITE UR Negative LAB L400.3780 Negative /ul Normal OCCULT BLOOD-UR Negative LAB L400.3800 Negative /ul High LEUK 25 ESTERASE LAB L400.4050 0-5 /hpf WBC Normal 0-5 SEEN LAB L400.4100 0-5 /hpf 0 Normal RBC-UA SEEN LAB L400.4150 5-10 /hpf SQUAM Normal EPI 0-5 SEEN LAB L400.4300 None Seen /hpf 0 Normal BACTERIA SEEN LAB L400.4350 <or=2+ /hpf 0 Normal MUCUS, URINE SEEN Performed By: #### L400.0001 #### [facility] [address] [place], [address] CBC W/DIFF, AUTOMATED Collected: 07/28/2018 Status: F Source: [place] 12:19 PM [facility] REPOSITORY TYPE CODE TESTS RESULT OUT OF RANGE REFERENCE UNITS LAB L100.1000 4.4-11.0 K/mm3 Normal WBC 10.5 LAB L100.1200 4.2-5.4 M/mm3 Normal RBC 4.72 LAB L100.1300 12.0-15.0 g/dl Normal HGB 14.9 LAB L100.1400 37-47 % Normal HCT 42.4 LAB L100.1500 81-99 fL Normal MCV 89.8 LAB L100.1600 27.0-32.0 pg Normal MCH 31.6 LAB L100.1700 32-36 g/gl Normal MCHC 35.1 LAB L100.1810 11.6-14.6 % Normal RDW CV 12.1 LAB L100.1820 35.1-43.9 fl Normal RDW SD 39.0 LAB L100.1900 150-450 K/mm3 Normal PLT 252 LAB L100.2000 6.2-12.0 fl Normal MPV 11.3 LAB L100.2100 47-70 % Normal NEUT% 65.5 LAB L100.2200 19-41 % Normal LY% 25.5 LAB L100.2300 0-10 % Normal MONO% 6.2 LAB L100.2400 0-5 % Normal EO% 2.3 LAB L100.2500 0-1 % Normal BASO% 0.2 LAB L100.2550 0.0-0.9 % Normal IM GRAN % 0.300 Result Comment: IG% - Immature Granulocytes (promyelocytes, myelocytes and metamyelocytes) > 1% indicates that a LEFT SHIFT is Present. LAB L100.2620 2.0-7.7 X10 3/uL Normal Absolute Neut 6.9 LAB L100.2720 0.83-4.51 X10 3/ul Normal Absolute Lymph 2.67 Performed By: #### L100.0100 #### [facility] [address] [place], [address] COMPREHENSIVE METABOLIC Collected: 07/28/2018 Status: F Source: LI [facility] 12:19 PM [facility] REPOSITORY TYPE CODE TESTS RESULT OUT OF RANGE REFERENCE UNITS LAB L501.0100 74-106 mg/dL High GLU 348 Result Comment: Glucose result greater than or equal to 200 mg/dL suggests DIABETES MELLITUS per A.D.A. criteria. Please note revised GLUCOSE reference range effective 2017. LAB L501.1000 7-18 mg/dL Normal BUN 15 LAB L501.1100 0.55-1.02 mg/dL Normal CREAT,SERUM 1.02 Result Comment: The validity of the calculated GFR AND GFRAA in patients over 70 years has not been determined. Clinical correlation is essential. LAB L501.1110 >60 mL/min Low EST GFR 58 Result Comment: Non- GFR Calc LAB L501.1115 >60 mL/min Normal EST GFR - AA 70 Result Comment: GFR Calc LAB L501.1255 ml/min Normal Estimated CRCL 46.09 LAB L501.1300 10-20 RATIO Normal BUN/CRE 14.7 LAB L501.1500 6.4-8. g/dL High 2 T PROT 8.6 LAB L501.1800 3.2-5. g/dL Normal 0 ALB 4.5 LAB L501.1950 2.2-4. g/dL Normal 2 GLOB 4.1 LAB L501.2000 0.9-2. RATIO Normal 4 A/G 1.1 LAB L501.2200 8.5-10 mg/dL Normal .1 CA 9.7 LAB L501.4100 15-37 U/L Normal AST 15 LAB L501.4305 45-117 U/L Normal ALK P 81 LAB L501.4405 13-56 U/L Normal ALT 27 LAB L501.4600 0.20-1 mg/dL Normal .00 T BILI 0.50 LAB L501.5300 136-14 mmol/L Low 5 NA 134 LAB L501.5600 3.5-5. mmol/L Normal 1 K 3.9 LAB L501.5900 98-107 mmol/L Low CL 97 LAB L501.6100 21.0-3 mmol/L Normal 2.0 CO2 27.0 LAB L501.6200 5-15 Normal GAP 10 Performed By: #### L500.4050, L501.2450 #### [facility] [address] [place], [address] LIPASE Collected: 07/28/2018 Status: F Source: [place] 12:19 PM [facility] REPOSITORY TYPE CODE TESTS RESULT OUT OF RANGE REFERENCE UNITS LAB L501.2450 73-393 U/L Normal LIPASE 190 Performed By: #### L500.4050, L501.2450 #### [facility] [address] [place], [place], [address] CHEST PA AND LATERAL Observed: 07/28/2018 Status: F Source: [place] 11:59 AM [facility] REPOSITORY [facility] Imaging Services [address] [place] [address] Chest PA and Lateral MR#: [id number] Acct: [id number] Name: DANIELLE MARY Rep #: [id number] : 1955 F 62 From: Ja Mott MD PCP: Selvin Vega Status: REG ER Study: Chest PA and Lateral Date of Exam: 07/28/18 Exam# [id number] Ordering Dr: Parker Moulton DO STUDY: X-RAY CHEST REASON FOR EXAM: Female, 62 years old. CHEST PAIN TECHNIQUE: Frontal and lateral views of the chest. # of Images: 2 COMPARISON: None. FINDINGS: The lungs are clear and expanded. There is no demonstrated pleural abnormality. Normal size heart. Normal mediastinum and jovan. Normal visualized pulmonary arteries. Normal visualized aortic arch and descending thoracic aorta. Normal visualized thoracic spine. There is degenerative osteoarthritis of the bilateral shoulders. There is no demonstrated abnormality of the visualized soft tissue structures of the upper abdomen. RAD/Chest PA and Lateral IMPRESSION: Degenerative changes, as described above. No demonstrated acute cardiopulmonary process. Electronically Signed: Ja Mott MD at 13:15 EDT Tel , Service support , CC: Parker Moulton DO; Selvin VILLATORO School Psychologist Assistant: Signed CBC-COMPLETE BLOOD CNT Collected: 07/21/2018 Status: F Source: LI NO DIFF 12:27 PM [facility] REPOSITORY TYPE CODE TESTS RESULT OUT OF RANGE REFERENCE UNITS LAB L100.1000 4.4-11.0 K/mm3 Normal WBC 8.9 LAB L100.1200 4.2-5.4 M/mm3 Normal RBC 4.29 LAB L100.1300 12.0-15.0 g/dl Normal HGB 13.6 LAB L100.1400 37-47 % Normal HCT 38.8 LAB L100.1500 81-99 fL Normal MCV 90.4 LAB L100.1600 27.0-32.0 pg Normal MCH 31.7 LAB L100.1700 32-36 g/gl Normal MCHC 35.1 LAB L100.1810 11.6-14.6 % Normal RDW CV 11.8 LAB L100.1820 35.1-43.9 fl Normal RDW SD 38.4 LAB L100.1900 150-450 K/mm3 Normal PLT 266 LAB L100.2000 6.2-12.0 fl Normal MPV 11.9 Performed By: #### L100.0500 #### [facility] [address] [place], [place], [address] HEMOGLOBIN A1C Collected: 07/21/2018 Status: F Source: [place] 12:27 PM [facility] REPOSITORY TYPE CODE TESTS RESULT OUT OF RANGE REFERENCE UNITS LAB L501.9985 4.2-6.3 % High HGB A1C 11.6 Performed By: #### L501.9985 #### [facility] [address] [place], [address] VITAMIN D,25 HYDROXY Collected: 07/21/2018 Status: F Source: [place] 12:27 PM [facility] REPOSITORY TYPE CODE TESTS RESULT OUT OF RANGE REFERENCE UNITS LAB L506.1000 29.95-100.01 ng/mL Normal Vitamin D 32.8 25-OH Result Comment: Vitamin D 25(OH) Status Range Deficiency <20 ng/mL (50nmol/L) Insuffciency 20 - 30 ng/mL (50 - 75 nmol/L) Sufficiency 30 - 100 ng/mL (75 - 250 nmol/L) Toxicity >100 ng/mL (>250 nmol/L) Performed By: #### L506.1000 #### [facility] [address] [place], [address] COMPREHENSIVE METABOLIC Collected: 07/21/2018 Status: F Source: [facility] 12:27 PM [facility] REPOSITORY TYPE CODE TESTS RESULT OUT OF RANGE REFERENCE UNITS LAB L501.0100 74-106 mg/dL High GLU 283 Result Comment: Glucose result greater than or equal to 200 mg/dL suggests DIABETES MELLITUS per A.D.A. criteria. Please note revised GLUCOSE reference range effective 2017. LAB L501.1000 7-18 mg/dL Normal BUN 16 LAB L501.1100 0.55-1.02 mg/dL Normal CREAT,SERUM 0.95 Result Comment: The validity of the calculated GFR AND GFRAA in patients over 70 years has not been determined. Clinical correlation is essential. LAB L501.1110 >60 mL/min Normal EST GFR 63 Result Comment: Non- GFR Calc LAB L501.1115 >60 mL/min Normal EST GFR - AA 76 Result Comment: GFR Calc LAB L501.1300 10-20 RATIO Normal BUN/CRE 16.9 LAB L501.1500 6.4-8.2 g/dL T Normal PROT 7.9 LAB L501.1800 3.2-5.0 g/dL Normal ALB 4.3 LAB L501.1950 2.2-4.2 g/dL Normal GLOB 3.6 LAB L501.2000 0.9-2.4 RATIO Normal A/G 1.2 LAB L501.2200 8.5-10.1 mg/dL CA Normal 9.1 LAB L501.4100 15-37 U/L Normal AST 15 LAB L501.4305 45-117 U/L Normal ALK P 70 LAB L501.4405 13-56 U/L Normal ALT 26 LAB L501.4600 0.20-1.00 mg/dL T Normal BILI 0.50 LAB L501.5300 136-145 mmol/L NA Normal 136 LAB L501.5600 3.5-5.1 mmol/L K Normal 3.7 LAB L501.5900 98-107 mmol/L CL Normal 100 LAB L501.6100 21.0-32.0 mmol/L Normal CO2 26.0 LAB L501.6200 5-15 Normal GAP 10 Performed By: #### L500.4050, L501.9520 #### [facility] [address] [place], [address] THYROID STIM HORMONE Collected: 07/21/2018 Status: F Source: [place] (TSH) 12:27 PM [facility] REPOSITORY TYPE CODE TESTS RESULT OUT OF RANGE REFERENCE UNITS LAB L501.9520 0.358-3.74 uIU/mL Normal TSH 1.99 Performed By: #### L500.4050, L501.9520 #### [facility] [address] [place], [address] 12 LEAD ELECTROCARDIOGRAM Observed: 07/17/2018 Status: F Source: [place] 3:26 PM [facility] REPOSITORY [facility] Cardiovascular Services [address] [place] [address] 117[address] 12 Lead EKG 07/10/18 1705 MR#: [id number] Acct: [id number] Name: DANIELLE MARY Rep #: [id number] : 1955 62 From: Charlie Hernandez MD Attending Dr: Status: DEP ER Ordering Dr: Sujata Cabrales MD Date: 07/10/18 Location: ED Sex: F C Admitted: Test Reason : CHEST PAIN Blood Pressure : / mmHG Vent. Rate : 094 BPM Atrial Rate : 094 BPM P-R Int : 124 ms QRS Dur : 078 ms QT Int : 386 ms P-R-T Axes : 039 033 024 degrees QTc Int : 482 ms Normal sinus rhythm Normal ECG Confirmed by CHARLIE HERNANDEZ MD ([id number]), web content editor ELI HASKINS ([id number]) on 07/17/2018 3:26:17 PM Referred By: CE Confirmed By:CHARLIE HERNANDEZ MD 07/17/18 1526 Date Charlie Hernandez MD CC: Sujata Cabrales MD; Selvin VILLATORO Signed EMERGENCY DEPARTMENT Observed: 07/11/2018 Status: F Source: [place] SUMMARY 1:35 AM [facility] REPOSITORY [facility] Medical Records Department [address] [place] [address] Emergency Department Summary 07/10/18 1709 MR#: [id number] Acct: [id number] Name: DANIELLE MARY Rep #: [id number] : 1955 62 From: Sujata Cabrales MD PCP: Selvin Vega Status: DEP ER - ER Visit Summary Date of Service: 07/10/18 Chief Complaint: Dizzy, short of breath, sweating History of Present Illness: The patient is a 62 F who thinks that she overdid it while working at the [employer] today. 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 She states she started sweating, became short of breath, and epigastric pain that radiates up to the left shoulder. Patient is a diabetic and states her blood sugars were in the 340s. She has a significant history of coronary disease and VT. Physical Examination: Blood pressure is 146/76, temperature 97.2, heart rate 110, respiratory rate 28, pulse ox 100% on room air. Patient is sitting upright in bed no acute distress. She is alert and talkative. Head neck examination is unremarkable. Heart is regular rate and rhythm at 97 at the time of my exam. Lung sounds are clear. She remains mildly tachypneic. Abdomen is soft nontender. Lower extremity examination reveals no calf tenderness or edema. Test Results: EKG is sinus at 94 with no sign of acute ischemia. Portable chest x-ray is unremarkable. CBC and chemistry studies reveal glucose of 425, otherwise unremarkable. Urinalysis shows thousand glucose but no sign of infection. Troponin is less than 0.015. Emergency Department Course and Treatment: Patient was given Phenergan along with a GI cocktail and IV fluids. On repeat evaluation she feels significantly improved. Blood pressure is 146/65 with a heart rate of 84. Patient will continue her current medical regimen. Treatment Plan: [] Disposition: Discharge Impression: Atypical chest pain, resolved This note was generated with [employer] dictation software. It may contain incorrect words, spelling, and punctuation that were not noted in review of the chart prior to signing ED Disposition - Plan for ED Patient: Disposition: Home or Assisted Living Chief Complaint: General Illness Instructions: ED Dizziness UKO Additional Instructions: Follow-up with your new physician as discussed. What to do if you have Problems For any increased pain, shortness of breath, bleeding, nausea or vomiting, chest pain, or any unexpected problems, contact your Primary Care Provider. Call [facility] ([phone]) or report to the closest Emergency Room. Call 911 if necessary. 07/11/18 0135 <Electronically signed by Sujata Cabrales MD> Date Sujata Cabrales MD Cosigner Signature (If Indicated): Date CC: Selvin VILLATORO DISCHARGE INSTRUCTION Observed: 07/10/2018 Status: F Source: [place] 7:31 PM [facility] REPOSITORY [facility] Medical Records Department [address] [place] [address] Discharge Instruction 07/10/181929 MR#: [id number] Acct: [id number] Name: DANIELLE MARY Ajay Rep #: [id number] : 1955 62 From: Sujata Cabrales MD PCP: Selvin Vega Status: REG ER ED Disposition - Plan for ED Patient: Disposition: Home or Assisted Living Chief Complaint: General Illness Instructions: ED Dizziness UKO Additional Instructions: Follow-up with your new physician as discussed. What to do if you have Problems For any increased pain, shortness of breath, bleeding, nausea or vomiting, chest pain, or any unexpected problems, contact your Primary Care Provider. Call [facility] ([phone]) or report to the closest Emergency Room. Call 911 if necessary. 07/10/18 1931 <Electronically signed by Sujata Cabrales MD> Date Sujata Cabrales MD Cosigner Signature (If Indicated): Date CC: Selvin VILLATORO URINALYSIS, COMPLETE Collected: 07/10/2018 Status: F Source: [place] 5:48 PM [facility] REPOSITORY Order Comment: How was Urine Obtained? DRAFTER HEATING AND VENTILATING TO SPECIFY TYPE CODE TESTS RESULT OUT OF RANGE REFERENCE UNITS LAB L400.3000 Yellow COLOR Normal Yellow LAB L400.3050 Clear Normal CLARITY Clear LAB L400.3200 Normal mg/dl High GLUCOSE, UR 1000 LAB L400.3300 Negative mg/dL Normal BILIRUBIN URINE Negative LAB L400.3400 Negative mg/dl Normal KETONE UR Negative LAB L400.3465 1.002-1.030 Normal SP.GR. DIPSTX 1.010 LAB L400.3550 5.0 - 8.0 pH UR Normal 5.0 LAB L400.3600 Negative mg/dl PROT Normal DIPSTX Negative LAB L400.3700 Normal mg/dl Normal UROBILI Normal LAB L400.3750 Negative Normal NITRITE UR Negative LAB L400.3780 Negative /ul Normal OCCULT BLOOD-UR Negative LAB L400.3800 Negative /ul LEUK Normal ESTERASE Negative LAB L400.4050 0-5 /hpf WBC 0 Normal SEEN LAB L400.4100 0-5 /hpf Normal RBC-UA 0-5 SEEN LAB L400.4150 5-10 /hpf SQUAM 0 Normal EPI SEEN LAB L400.4300 None Seen /hpf 0 Normal BACTERIA SEEN LAB L400.4350 <or=2+ /hpf 0 Normal MUCUS, URINE SEEN Performed By: #### L400.0001 #### [facility] [place], [address] CBC W/DIFF, AUTOMATED Collected: 07/10/2018 Status: F Source: [place] 5:10 PM [facility] REPOSITORY TYPE CODE TESTS RESULT OUT OF RANGE REFERENCE UNITS LAB L100.1000 4.4-11.0 K/mm3 Normal WBC 6.9 LAB L100.1200 4.2-5.4 M/mm3 Low RBC 4.10 LAB L100.1300 12.0-15.0 g/dl Normal HGB 13.0 LAB L100.1400 37-47 % Low HCT 36.6 LAB L100.1500 81-99 fL Normal MCV 89.3 LAB L100.1600 27.0-32.0 pg Normal MCH 31.7 LAB L100.1700 32-36 g/gl Normal MCHC 35.5 LAB L100.1810 11.6-14.6 % Normal RDW CV 12.2 LAB L100.1820 35.1-43.9 fl Normal RDW SD 39.2 LAB L100.1900 150-450 K/mm3 Normal PLT 239 LAB L100.2000 6.2-12.0 fl Normal MPV 10.9 LAB L100.2100 47-70 % Low NEUT% 44.9 LAB L100.2200 19-41 % High LY% 43.0 LAB L100.2300 0-10 % Normal MONO% 7.6 LAB L100.2400 0-5 % Normal EO% 3.9 LAB L100.2500 0-1 % Normal BASO% 0.3 LAB L100.2550 0.0-0.9 % Normal IM GRAN % 0.300 Result Comment: IG% - Immature Granulocytes (promyelocytes, myelocytes and metamyelocytes) > 1% indicates that a LEFT SHIFT is Present. LAB L100.2620 2.0-7.7 X10 3/uL Normal Absolute Neut 3.1 LAB L100.2720 0.83-4.51 X10 3/ul Normal Absolute Lymph 2.98 Performed By: #### L100.0100 #### [facility] [address] [facility] [address] [place], [place], [address] BASIC METABOLIC Collected: 07/10/2018 Status: F Source: [place] PROFILE (BMP) 5:10 PM [facility] REPOSITORY TYPE CODE TESTS RESULT OUT OF RANGE REFERENCE UNITS LAB L501.0100 74-106 mg/dL High GLU 425 Result Comment: Glucose result greater than or equal to 200 mg/dL suggests DIABETES MELLITUS per A.D.A. criteria. Please note revised GLUCOSE reference range effective 2017. LAB L501.1000 7-18 mg/dL Normal BUN 13 LAB L501.1100 0.55-1.02 mg/dL Normal CREAT,SERUM 0.96 Result Comment: The validity of the calculated GFR AND GFRAA in patients over 70 years has not been determined. Clinical correlation is essential. LAB L501.1110 >60 mL/min Normal EST GFR 62 Result Comment: Non- GFR Calc LAB L501.1115 >60 mL/min Normal EST GFR - AA 75 Result Comment: GFR Calc LAB L501.1255 ml/min Normal Estimated CRCL 48.97 LAB L501.1300 10-20 RATIO Normal BUN/CRE 13.5 LAB L501.2200 8.5-10 mg/dL Normal .1 CA 9.0 LAB L501.5300 136-14 mmol/L Low 5 NA 135 LAB L501.5600 3.5-5. mmol/L Normal 1 K 3.9 LAB L501.5900 98-107 mmol/L Normal CL 103 LAB L501.6100 21.0-3 mmol/L Low 2.0 CO2 20.0 LAB L501.6200 5-15 Normal GAP 12 Performed By: #### L500.2500, L501.4010 #### [facility] [address] [place], [place], [address] TROPONIN-I Collected: 07/10/2018 Status: F Source: [place] 5:10 PM [facility] REPOSITORY TYPE CODE TESTS RESULT OUT OF RANGE REFERENCE UNITS LAB L501.4010 <0.045 ng/mL Normal < 0.015 TROPONIN-I Result Comment: TROPONIN-I EXPECTED VALUES <0.045 Negative 0.045 - 0.590 Consistent with Cardiac Damage > OR = 0.600 Critical Value Not every elevated troponin is indicative of VT. These values should be used with clinical judgement in examining the patient's clinical picture for diagnosis. To establish a diagnosis of VT versus myocardial injury, there must be a demonstrated rise and/or fall in the troponin values, in addition to ischemic symptoms, EKG changes, new regional wall motion abnormality, and/or angiographical evidence. PLEASE NOTE: REFERENCE RANGES EDITED 18 Performed By: #### L500.2500, L501.4010 #### [facility] [address] [place], [address] CHEST 1 VIEW Observed: 07/10/2018 Status: F Source: [place] (PORTABLE) 5:06 PM [facility] REPOSITORY [facility] Imaging Services [address] [place] [address] Chest 1 View (Portable) MR#: [id number] Acct: [id number] Name: DANIELLE MARY Rep #: [id number] : 1955 F 62 From: Blanca Haskins MD PCP: Selvin Vega Status: REG ER Study: Chest 1 View (Portable) Date of Exam: 07/10/18 Exam# [id number] Ordering Dr: Sujata Cabrales MD STUDY: X-RAY CHEST REASON FOR EXAM: Female, 62 years old. Cough and chest pain. TECHNIQUE: Single AP portable view of the chest. COMPARISON: July 02, 2018. FINDINGS: Cardiac monitoring leads are present. The lungs are expanded. There is interstitial thickening present at both lung bases. There is pleural fibrotic thickening of the pulmonary lung apices. Normal size heart. There appears to be coronary artery vascular calcifications and/or endovascular stents. Normal mediastinum and jovan. Normal visualized pulmonary arteries. There is atherosclerotic calcification of the aortic arch with tortuosity. Normal visualized thoracic spine. Normal visualized ribs, clavicles, and shoulders. There is no demonstrated abnormality of the visualized soft tissue structures of the upper abdomen. RAD/Chest 1 View (Portable) IMPRESSION: 1. No radiographic evidence of acute cardiopulmonary disease. 2. Sequela of coronary artery vascular disease. Electronically Signed: Blanca Haskins MD at 17:43 EDT , Service support , CC: Sujata Cabrales MD; Selvin VILLATORO School Psychologist Assistant: Signed 12 LEAD ELECTROCARDIOGRAM Observed: 07/05/2018 Status: F Source: [place] 8:59 AM [facility] REPOSITORY [facility] Cardiovascular Services [address] [place] [address] [place] [address] 12 Lead EKG 07/02/18 1113 MR#: [id number] Acct: [id number] Name: DANIELLE MARY Rep #: [id number] : 1955 62 From: Charlie Hernandez MD Attending Dr: Status: DEP ER Ordering Dr: Sujata Cabrales MD Date: 07/02/18 Location: ED Sex: F C Admitted: Test Reason : CHEST PAIN Blood Pressure : / mmHG Vent. Rate : 076 BPM Atrial Rate : 076 BPM P-R Int : 134 ms QRS Dur : 078 ms QT Int : 406 ms P-R-T Axes : 053 057 054 degrees QTc Int : 456 ms Normal sinus rhythm Normal ECG Confirmed by CHARLIE HERNANDEZ MD ([id number]), web content editor ELI HASKINS ([id number]) on 07/05/2018 8:59:21 AM Referred By: Confirmed By:CHARLIE HERNANDEZ MD 07/05/18 0859 Date Charlie Hernandez MD CC: Sujata Cabrales MD; Selvin VILLATORO Signed EMERGENCY DEPARTMENT Observed: 07/02/2018 Status: F Source: LI SUMMARY 2:34 PM [facility] REPOSITORY [facility] Medical Records Department [address] [place] [address] Emergency Department Summary 07/02/18 1258 MR#: [id number] Acct: [id number] Name: DANIELLE MARY Rep #: [id number] : 1955 62 From: Sujata Cabrales MD PCP: Selvin Vega Status: DEP ER - ER Visit Summary Date of Service: 07/02/18 Chief Complaint: Chest pain History of Present Illness: The patient is a 62 F who states she developed left lung pain 2 days ago and then today has left anterior chest pain. Pain is worse with deep breath and with movement. She states she vomited 3 times today because the pain was so severe. She denies any history of DVT. She does have significant history for cardiac disease. Physical Examination: Blood pressure is 1 6469, temperature 98, heart rate 87, respiratory rate 20, pulse ox 100% on room air. Head neck examination unremarkable. Heart is regular rate and rhythm. Lung sounds are clear. She has reproducible tenderness in the left lower ribs posteriorly. There is no rash or crepitus. Abdomen is soft and nontender. Lower extremity examination reveals no significant calf tenderness or edema. Test Results: EKG is sinus at 76 with no sign of acute ischemia. CBC is normal. Chemistry studies significant for glucose of 250. Troponin is less than 0.015. D-dimer is normal at 0.28. Portable chest x-ray is normal. Emergency Department Course and Treatment: Patient was initially given morphine and Zofran. I did review her prior cardiac workups including a dobutamine stress test in January and a stress echo in March which were unremarkable. Patient be given a single dose of oxycodone and Flexeril here. Should be given a prescription for Flexeril and continue Tylenol at home for pain. Treatment Plan: [] Disposition: Discharge Impression: Chest wall pain This note was generated with [employer] dictation software. It may contain incorrect words, spelling, and punctuation that were not noted in review of the chart prior to signing ED Disposition - Plan for ED Patient: Chief Complaint: Chest Pain Referrals: Selvin Sifuentes, NURSE ORTHOPAEDIC-C [Primary Care Provider] - What to do if you have Problems For any increased pain, shortness of breath, bleeding, nausea or vomiting, chest pain, or any unexpected problems, contact your Primary Care Provider. Call [facility] ([phone]) or report to the closest Emergency Room. Call 911 if necessary. 07/02/18 1434 <Electronically signed by Sujata Cabrales MD> Date Sujata Cabrales MD Cosigner Signature (If Indicated): Date CC: Selvin VILLATORO DISCHARGE INSTRUCTION Observed: 07/02/2018 Status: F Source: [place] 1:02 PM [facility] RE[facility] Medical Records Department [address] [place] [address] Discharge Instruction 07/02/18 1301 MR#: [id number] Acct: [id number] Name: DANIELLE MARY Rep #: [id number] : 1955 62 From: Sujata Cabrales MD PCP: Selvin Vega Status: PRE ER ED Disposition - Plan for ED Patient: Disposition: Home or Assisted Living Chief Complaint: Chest Pain Instructions: ED Strain Chest Wall Prescriptions: Cyclobenzaprine [Flexeril] 10 mg PO TID PRN #20 tablet PRN Reason: Muscle Spasm Referrals: Selvin Sifuentes, NURSE ORTHOPAEDIC-C [Primary Care Provider] - 5-7 Days What to do if you have Problems For any increased pain, shortness of breath, bleeding, nausea or vomiting, chest pain, or any unexpected problems, contact your Primary Care Provider. Call [facility] ([phone]) or report to the closest Emergency Room. Call 911 if necessary. 07/02/18 1302 <Electronically signed by Sujata Cabrales MD> Date Sujata Bishop Signature (If Indicated): Date CC: Selvin VILLATORO BASIC METABOLIC Collected: 07/02/2018 Status: F Source: [place] PROFILE ([facility]) 12:10 PM [facility] REPOSITORY Order Comment: REDRAW. PREVIOUS SPECIMEN REJECTED DUE TO HEMOLYSIS. 07/02/18 1201 Nguyen Han. 'TROP' Serial specimen #1, #2, #3, or #4: 1 TYPE CODE TESTS RESULT OUT OF RANGE REFERENCE UNITS LAB L501.0100 74-106 mg/dL High GLU 250 Result Comment: Glucose result greater than or equal to 200 mg/dL suggests DIABETES MELLITUS per A.D.A. criteria. Please note revised GLUCOSE reference range effective 2017. LAB L501.1000 7-18 mg/dL Normal BUN 9 LAB L501.1100 0.55-1.02 mg/dL Normal CREAT,SERUM 0.71 Result Comment: The validity of the calculated GFR AND GFRAA in patients over 70 years has not been determined. Clinical correlation is essential. LAB L501.1110 >60 mL/min Normal EST GFR 88 Result Comment: Non- GFR Calc LAB L501.1115 >60 mL/min Normal EST GFR - AA 106 Result Comment: GFR Calc LAB L501.1255 ml/min Normal Estimated CRCL 66.22 LAB L501.1300 10-20 RATIO Normal BUN/CRE 12.6 LAB L501.2200 8.5-10 mg/dL Normal .1 CA 8.6 LAB L501.5300 136-14 mmol/L Normal 5 NA 136 LAB L501.5600 3.5-5. mmol/L Normal 1 K 4.3 LAB L501.5900 98-107 mmol/L Normal CL 104 LAB L501.6100 21.0-3 mmol/L Normal 2.0 CO2 25.0 LAB L501.6200 5-15 Normal GAP 7 Performed By: #### L500.2500, L501.4010 #### [facility] [address] [place], [address] TROPONIN-I Collected: 07/02/2018 Status: F Source: [place] 12:10 PM [facility] REPOSITORY Order Comment: REDRAW. PREVIOUS SPECIMEN REJECTED DUE TO HEMOLYSIS. 07/02/18 1201 Nguyen Han. 'TROP' Serial specimen #1, #2, #3, or #4: 1 TYPE CODE TESTS RESULT OUT OF RANGE REFERENCE UNITS LAB L501.4010 <0.045 ng/mL Normal < 0.015 TROPONIN-I Result Comment: TROPONIN-I EXPECTED VALUES <0.045 Negative 0.045 - 0.590 Consistent with Cardiac Damage > OR = 0.600 Critical Value Not every elevated troponin is indicative of VT. These values should be used with clinical judgement in examining the patient's clinical picture for diagnosis. To establish a diagnosis of VT versus myocardial injury, there must be a demonstrated rise and/or fall in the troponin values, in addition to ischemic symptoms, EKG changes, new regional wall motion abnormality, and/or angiographical evidence. PLEASE NOTE: REFERENCE RANGES EDITED 18 Performed By: #### L500.2500, L501.4010 #### [facility] [address] [place], [address] CHEST 1 VIEW Observed: 07/02/2018 Status: F Source: [place] (PORTABLE) 11:39 AM [facility] Imaging Services [address] [place] [address] Chest 1 View (Portable) MR#: [id number] Acct: [id number] Name: DANIELLE MARY Ajay Rep #: [id number] : 1955 F 62 From: Izaiah Maza MD PCP: Selvin Vega Status: PRE ER Study: Chest 1 View (Portable) Date of Exam: 07/02/18 Exam# [id number] Ordering Dr: Sujata Cabrales MD STUDY: X-RAY CHEST REASON FOR EXAM: Female, 62 years old. Chest pain. Asthma and COPD. TECHNIQUE: Single AP portable view of the chest. COMPARISON: 05/01/2018. FINDINGS: The lungs are clear and expanded. There is no demonstrated pleural abnormality. Normal size heart. Normal mediastinum and jovan. Normal visualized pulmonary arteries. Normal visualized aortic arch and descending thoracic aorta. Normal visualized thoracic spine. Normal visualized ribs, clavicles, and shoulders. There is no demonstrated abnormality of the visualized soft tissue structures of the upper abdomen. RAD/Chest 1 View (Portable) IMPRESSION: Normal x-ray examination of the chest. Electronically Signed: Izaiah Maza MD at 12:50 EDT , Service support , CC: Sujata Cabrales MD; Selvin VILLATORO School Psychologist Assistant: Signed CBC W/DIFF, AUTOMATED Collected: 07/02/2018 Status: F Source: [place] 11:25 AM [facility] REPOSITORY TYPE CODE TESTS RESULT OUT OF RANGE REFERENCE UNITS LAB L100.1000 4.4-11.0 K/mm3 Normal WBC 8.4 LAB L100.1200 4.2-5.4 M/mm3 Normal RBC 4.47 LAB L100.1300 12.0-15.0 g/dl Normal HGB 14.1 LAB L100.1400 37-47 % Normal HCT 40.8 LAB L100.1500 81-99 fL Normal MCV 91.3 LAB L100.1600 27.0-32.0 pg Normal MCH 31.5 LAB L100.1700 32-36 g/gl Normal MCHC 34.6 LAB L100.1810 11.6-14.6 % Normal RDW CV 12.1 LAB L100.1820 35.1-43.9 fl Normal RDW SD 40.2 LAB L100.1900 150-450 K/mm3 Normal PLT 210 LAB L100.2000 6.2-12.0 fl Normal MPV 11.3 LAB L100.2100 47-70 % Normal NEUT% 49.2 LAB L100.2200 19-41 % Normal LY% 39.6 LAB L100.2300 0-10 % Normal MONO% 7.1 LAB L100.2400 0-5 % Normal EO% 3.1 LAB L100.2500 0-1 % Normal BASO% 0.6 LAB L100.2550 0.0-0.9 % Normal IM GRAN % 0.400 Result Comment: IG% - Immature Granulocytes (promyelocytes, myelocytes and metamyelocytes) > 1% indicates that a LEFT SHIFT is Present. LAB L100.2620 2.0-7.7 X10 3/uL Normal Absolute Neut 4.2 LAB L100.2720 0.83-4.51 X10 3/ul Normal Absolute Lymph 3.34 Performed By: #### L100.0100 #### [facility] [address] [facility] [place], [address] D-DIMER QUANTITATIVE Collected: 07/02/2018 Status: F Source: [place] (DVT/PE) 11:25 AM [facility] REPOSITORY TYPE CODE TESTS RESULT OUT OF RANGE REFERENCE UNITS LAB L300.8000 0.27-0.49 FEU/ug/m Normal D-DIMER 0.28 QUANT Result Comment: NORMAL D-Dimer level (<0.50) indicates no DVT or PE. Performed By: #### L300.8000 #### [facility] [address] [facility] [place], [address] CONSULTATION Observed: 06/04/2018 Status: F Source: [place] 2:12 PM [facility] Medical Records Department [address] [place] [address] Consultation 05/31/18 1013 MR#: [id number] Acct: [id number] Name: DANIELLE MARY Rep #: [id number] : 1955 62 From: Orlando Silva MD PCP: Selvin Vega Status: DIS WU Y Location: [place] [address] Reason for Consult Date of Consultation: 05/31/18 Reason for Consultation: confusion History of Present Illness: The patient is a 62 year old right handed female who felt poorly yesterday, found to have extremely elevated blood sugars. reports felt funny in catholic at 6pm. she is unclear why her sugars were elevated, which happens around twice yearly for unclear reasons, causing typical nonspecific symptoms which she experienced yesterday, now largely improved except for numbness around left lower lip. no recent illness or med changes, reports good compliance with meds. no etoh or tob. takes daily asa per admit h AND P:The patient is a 62 year old F with history of coronary artery disease status post 4 stents, diabetes mellitus type 2 with uncontrolled blood sugar came to ER with very high blood sugar. She is also feeling dizzy and lightheaded and in the ER but she was found more than 500 on Accu-Chek and 518 on BMP. She developed chest pressure while in the ER which resolved after nitro. Her pain was midsternal which radiated to left shoulder with no associated shortness of breath, palpitation or diaphoresis. She has chronic shortness of breath on exertion due to history of COPD. She also said about 3 days ago she had dysarthria noticed by her daughter. She also has gait incoordination for last 3-4 weeks. She denies any prior history of stroke. In ED, initial blood work is negative for DKA with normal acetone, anion gap 9, CO2 23 and negative troponin. Magnesium normal. EKG shows normal sinus rhythm at 72 bpm. Past Medical History Past Medical History (Chronic Problems): Chronic Problems GERD (gastroesophageal reflux disease) (Chronic) Uncontrolled type 2 diabetes mellitus (Chronic) Benign essential hypertension (Chronic) Type 2 diabetes mellitus (Chronic) Hyperlipidemia (Chronic) Coronary artery disease (Chronic) ROMEL LAD 01/21 COPD (chronic obstructive pulmonary disease) (Chronic) cont smoking Tobacco abuse (Chronic) NSTEMI (non-ST elevated myocardial infarction) (Chronic) Allergies Penicillins Allergy (Verified 05/30/18 18:39) Hives hydrocodone bitartrate [From Vicodin] Adverse Reaction (Verified 05/30/18 18:39) Vomiting ibuprofen Adverse Reaction (Verified 05/30/18 18:39) Vomiting Home Medications: Ambulatory Orders Medication Instructions Recorded Lisinopril [Zestril] 5 mg PO DAILY 08/17/15 Aspirin [Adult Low Dose Aspirin EC] 81 mg PO DAILY 02/04/16 Furosemide [Lasix] 40 mg PO DAILY 02/04/16 Surgical History: angioplasty, cholecystectomy, hysterectomy, - - LAD PCI/ROMEL-02/08/2014 at [facility], stent placement at [facility] 03/15/17 along with percutaneous balloon angioplasty Psychiatric History: No pertinent psych hx HYDRO MECHANIC History: No pertinent HYDRO MECHANIC history Smoking Status: Current every day smoker - *Family History Maternal History Items: Heart Disease Paternal History Items: Heart Disease Sibling History Items: Heart Disease Review of Systems Constitutional: Denies: Chills, Fever, Weight Change HEENT: Denies: Head Aches, Sinus Congestion, Sinus Drainage Cardiovascular: Denies: Chest Pain, Palpitations Respiratory: Denies: Cough, Shortness of breath at rest, Sputum production Gastrointestinal: Denies: Abdominal Pain, Nausea, Vomiting Genitourinary: Denies: Dysuria Musculoskeletal: Denies: Joint Pain, Joint Tenderness Skin: Denies: Rash, Wounds Neurological: Denies: Numbness, Tingling, Focal weakness Psychiatric: Denies: Anxiety, Depression, Homicidal Ideations, Suicidal Ideations Hematologic/ Lymphatic: Denies: Easy Bruising, Easy Bleeding Patient Problems: Active and Suspected Problems Dysarthria (Acute) Objective: give way and nonphysiologic weakness/discoord of rue, distractible sensation intact - Physical Exam General: Alert, Oriented x3, Cooperative HEENT: Atraumatic, PERRLA, EOMI, Normocephalic Neck: Supple, No JVD, Negative Carotid Bruits Lungs: Clear to auscultation, Normal air movement Cardiovascular: Regular rate, No murmurs Abdomen: Bowel Sounds Present, Soft, Non Tender Extremities: No edema, Capillary Refill Less than 3 Seconds Skin: No rashes, No breakdown Musculoskeletal: No Tenderness to Palpation of Joints or Extremities Neurological: Cranial nerves II-XII grossly intact Psych/Mental Status: Normal Affect, Appropriate Vital Signs Temp Pulse Resp BP Pulse Ox 36.6 C 68 16 132/58 H 100 05/31/18 09:00 05/31/18 09:00 05/31/18 09:00 05/31/18 09:00 05/31/18 09:00 Oxygen Delivery Method Room Air Weight: 70.1 kg Body Mass Index (BMI) 27.3 Intake and Output for Last 24 Hours Intake Total 199.3 / 199.3 494 / 494 Balance 199.3 / 199.3 494 / 494 Laboratory Tests Past 24 Hrs WBC RBC WBC 6.0 POC Glucose POC Glucose 230 H Current Home Med List Medication Instructions Recorded Confirmed Type Current Medications Generic Name Dose Route Start Last Admin Trade Name Freq PRN Reason Stop Dose Admin Aspirin 81 mg 05/31/18 10:00 05/31/18 06:13 Ecotrin PO 81 mg CAT scan reviewed, no acute MRI reviewed, no acute. two small chronic lacunes. Assessment/Plan All Active Problems Dysarthria (Acute) Chest pain (Acute) VTE (venous thromboembolism) (Resolved) encephalopathy due to hyperglycemia, resolved continue asa daily ok to dc from neuro when metabolically stabilized 06/04/18 1412 <Electronically signed by Orlando Silva MD> Date Orlando Silva MD Cosigner Signature (if applicable): Date CC: Selvin VILLATORO; Orlando Silva MD Signed 12 LEAD ELECTROCARDIOGRAM Observed: 06/02/2018 Status: F Source: [place] 1:49 PM [facility] RE[facility] Cardiovascular Services [address] [place] [address] 12 Lead EKG 05/30/18 2333 MR#: [id number] Acct: [id number] Name: DANIELLE MARY Rep #: [id number] : 1955 62 From: Charlie Hernandez MD Attending Dr: Espinoza Pate MD Status: DIS WU Ordering Dr: Sandeep Anna MD Date: 05/30/18 Location: [facility] Sex: F C Admitted: 05/30/18 Test Reason : CP ADMIT Blood Pressure : / mmHG Vent. Rate : 073 BPM Atrial Rate : 073 BPM P-R Int : 156 ms QRS Dur : 086 ms QT Int : 426 ms P-R-T Axes : 051 031 030 degrees QTc Int : 469 ms Normal sinus rhythm Normal ECG When compared with ECG of 01-MAY-2018 13:29, No significant change was found Confirmed by CHARLIE HERNANDEZ MD ([id number]), web content editor ELI HASKINS ([id number]) on 06/02/2018 1:48:56 PM Referred By: DR ANNA Confirmed By:CHARLIE HERNANDEZ MD 06/02/18 1349 Date Charlie Hernandez MD CC: Selvin VILLATORO; Espinoza Pate MD; Sandeep Anna MD Signed 12 LEAD ELECTROCARDIOGRAM Observed: 06/02/2018 Status: F Source: [place] 1:48 PM [facility] REPOS[facility] Cardiovascular Services [address] [place] [address] 12 Lead EKG 05/31/18 0602 MR#: [id number] Acct: [id number] Name: DANIELLE MARY Rep #: [id number] : 1955 62 From: Charlie Hernandez MD Attending Dr: Espinoza Pate MD Status: DIS WU Ordering Dr: Sandeep Anna MD Date: 05/31/18 Location: [facility] Sex: F C Admitted: 05/30/18 Test Reason : AM EKG Blood Pressure : / mmHG Vent. Rate : 070 BPM Atrial Rate : 070 BPM P-R Int : 158 ms QRS Dur : 084 ms QT Int : 444 ms P-R-T Axes : 048 032 040 degrees QTc Int : 479 ms Normal sinus rhythm Normal ECG When compared with ECG of 30-MAY-2018 23:33, MANUAL COMPARISON REQUIRED, DATA IS UNCONFIRMED Confirmed by CHARLIE HERNANDEZ MD ([id number]), web content editor ELI HASKINS ([id number]) on 06/02/2018 1:48:03 PM Referred By: DR ANNA Confirmed By:CHARLIE HERNANDEZ MD 06/02/18 1348 Date Charlie Hernandez MD CC: Selvin VILLATORO; Espinoza Pate MD; Sandeep Anna MD Signed 12 LEAD ELECTROCARDIOGRAM Observed: 06/02/2018 Status: F Source: [place] 1:29 PM [facility] REPOS[facility] Cardiovascular Services [address] [place] [address] 12 Lead EKG 05/30/18 1915 MR#: [id number] Acct: [id number] Name: DANIELLE MARY Rep #: [id number] : 1955 62 From: Charlie Hernandez MD Attending Dr: Espinoza Pate MD Status: DIS WU Ordering Dr: Kyra Reese MD Date: 05/30/18 Location: [facility] Sex: F C Admitted: 05/30/18 Test Reason : HYPERGLYCEMIA Blood Pressure : / mmHG Vent. Rate : 088 BPM Atrial Rate : 088 BPM P-R Int : 150 ms QRS Dur : 082 ms QT Int : 390 ms P-R-T Axes : 048 015 030 degrees QTc Int : 471 ms Normal sinus rhythm Normal ECG Confirmed by MARY BARFIELD, CHARLIE ([id number]), web content editor ELI HASKINS ([id number]) on 06/02/2018 1:28:46 PM Referred By: ANCELMO Confirmed By:CHARLIE HERNANDEZ MD 06/02/18 1328 Date Charlie Hernandez MD CC: Selvin VILLATORO; Kyra Reese MD; Espinoza Pate MD Signed 12 LEAD ELECTROCARDIOGRAM Observed: 06/02/2018 Status: F Source: [place] 1:28 PM [facility] REPOS[facility] Cardiovascular Services [address] [place] [address] 12 Lead EKG 05/30/180 MR#: [id number] Acct: [id number] Name: DANIELLE MARY Rep #: [id number] : 1955 62 From: Charlie Hernandez MD Attending Dr: Espinoza Pate MD Status: DIS WU Ordering Dr: Kyra Reese MD Date: 05/30/18 Location: [facility] Sex: F C Admitted: 05/30/18 Test Reason : REPEAT/ CP Blood Pressure : / mmHG Vent. Rate : 072 BPM Atrial Rate : 072 BPM P-R Int : 154 ms QRS Dur : 084 ms QT Int : 428 ms P-R-T Axes : 051 021 033 degrees QTc Int : 468 ms Normal sinus rhythm Normal ECG Confirmed by CHARLIE HERNANDEZ MD ([id number]), web content editor ELI HASKINS ([id number]) on 06/02/2018 1:28:32 PM Referred By: ANCELMO Confirmed By:CHARLIE HERNANDEZ MD 06/02/18 1328 Date Charlie Hernandez MD CC: Selvin VILLATORO; Kyra Reese MD; Espinoza Pate MD Signed CAROTID DUPLEX Observed: 05/31/2018 Status: F Source: [place] ULTRASOUND 5:23 PM [facility] REPOS[facility] Cardiovascular Services [address] [place] [address] Carotid Duplex Ultrasound 05/31/18 1118 MR#: [id number] Acct: [id number] Name: DANIELLE MARY Rep #: [id number] : 1955 62 From: Ran Medina MD Attending Dr: Espinoza Pate MD Status: DIS WU Ordering Dr: Sandeep Anna MD Date: 05/30/18 Location: [facility] Sex: F C Admitted: 05/30/18 Reason For Study: TIA Rt. Velocities/BP Lt. Velocities/BP Prox CCA 89/16 cm/sec. Prox CCA 86/23 cm/sec. Mid CCA 84/21 cm/sec. Mid CCA 85/22 cm/sec. Dist CCA 80/19 cm/sec. Dist CCA 84/29 cm/sec. Prox ICA 93/26 cm/sec. Prox ICA 86/26 cm/sec. Mid ICA 99/33 cm/sec. Mid ICA 130/42 cm/sec. Dist ICA 106/32 cm/sec. Dist ICA 122/39 cm/sec. Rt. ICA/CCA = 1.26. Lt. ICA/CCA = 1.53. Prox ECA 91/12 cm/sec. Prox ECA 93/10 cm/sec. Rt. Vert. 55/11 cm/sec. Lt. Vert. 66/16 cm/sec. Right Extracranial There is intimal thickening but no significant atherosclerotic plaque noted in the right common carotid artery. There is heterogeneous, smooth atherosclerotic plaque noted in the right internal carotid artery. There is no significant atherosclerotic plaque noted in the right external carotid artery. Antegrade flow is noted in the right vertebral artery. Left Extracranial There is intimal thickening but no significant atherosclerotic plaque noted in the left common carotid artery. There is heterogeneous, irregular atherosclerotic plaque noted in the left internal carotid artery. There is no significant atherosclerotic plaque noted in the left external carotid artery. Antegrade flow is noted in the left vertebral artery. Procedure Carotid Duplex 53335. Exam performed portable in patient room. Interpretation Summary Minimal smooth plague at the proximal right internal carotid with <50% stenosis. Focal irregular calcific plague with shadowing at the proximal left internal carotid with 50-69% stenosis. Normal flow bilateral external carotids Patent and antegrade vertebrals bilaterally Ordering Physician: Sandeep Anna Referring Physician: Selvin Sifuentes Performed By: Helen Francois, CHUYITA, RVT 05/31/18 172 Date Ran Medina MD CC: Selvin VILLATORO; Espinoza Pate MD; Sandeep Anna MD Date Dictated: 05/31/18 1118 Date Transcribed: 05/31/181721 School Psychologist Assistant: Signed DISCHARGE SUMMARY Observed: 05/31/2018 Status: F Source: [place] 4:04 PM [facility] REPOSIT[facility] Medical Records Department [address] [place] [address] Discharge Summary 05/31/18 1516 MR#: [id number] Acct: [id number] Name: DANIELLE MARY Rep #: [id number] : 1955 62 From: Nguyen Rain NURSE ORTHOPAEDICMarky PCP: Selvin Vega Status: DIS WU Y Location: [place] [address]-1 <Nguyen Rain - Last Filed: 05/31/18 15:31> Discharge Date and Diagnosis Date of Admission: 05/30/18 Date of Discharge: 05/31/18 - Primary Discharge Diagnosis Active and Suspected Problems 1. Acute metabolic encephalopathy secondary to hyperglycemia 2. Atypical chest pain, ACS ruled out - Secondary Discharge Diagnosis Chronic Problems GERD (gastroesophageal reflux disease) (Chronic) Uncontrolled type 2 diabetes mellitus (Chronic) Benign essential hypertension (Chronic) Type 2 diabetes mellitus (Chronic) Hyperlipidemia (Chronic) Coronary artery disease (Chronic) ROMEL LAD 01/21 COPD (chronic obstructive pulmonary disease) (Chronic) cont smoking Tobacco abuse (Chronic) NSTEMI (non-ST elevated myocardial infarction) (Chronic) Hospital Course and Treatment Imaging Results: Diagnostic Data Brain CT 05/30/18 20:45 IMPRESSION: Normal unenhanced CT scan of the brain. Electronically Signed: Ja Mott MD at 21:25 EDT Tel , Service support , Dr. Silva- Neurology Operations: None Procedures: None Summary of Care Provided: The patient is a 62 year old F admitted 05/30/2019 due to chest pain and uncontrolled diabetes. She has a past medical history of CAD status post stents 4, type 2 diabetes mellitus, tobacco dependence, COPD, hyperlipidemia, hypertension. Glucose elevated on admission. Hemoglobin A1c 10.5%. Negative for DKA. Patient has intermittently ran out of her medication regimen. History of noncompliance of medication regimen. Discharged on previous Lantus twice daily regimen, metformin 1000 mg twice daily and glimepiride 4 mg daily. She has a follow-up appointment at [facility] next week. ACS ruled out. Patient denies further chest pain. Troponin negative 4. Patient had recent stress test March 29, 2018 which was negative for ischemia. She also had a cardiac catheterization January 2018 which showed nonobstructive coronary artery disease distal to stent and LAD. Neurology consulted due to nonspecific neurologic symptoms. Brain CT unremarkable. Neurology states okay to DC from neuro standpoint. Suspected encephalopathy due to hyperglycemia. Patient will continue home aspirin, statin, Plavix regimen at discharge. Prescription given for new glucose monitor. Patient instructed to check blood glucose before meals and at bedtime and document findings to report to healthcare provider. General: Alert, Oriented x3, Cooperative HEENT: Atraumatic, PERRLA, EOMI, Normocephalic Neck: Supple, No JVD, Negative Carotid Bruits Lungs: Clear to auscultation, Normal air movement Cardiovascular: Regular rate, Regular Rhythm, Normal S1, Normal S2, No murmurs Abdomen: Bowel Sounds Present, Soft, Non Tender, Non-Distended Extremities: No edema, Capillary Refill Less than 3 Seconds Skin: No rashes, No breakdown Musculoskeletal: No Tenderness to Palpation of Joints or Extremities, Arthritic Changes Neurological: Cranial nerves II-XII grossly intact, Neuro grossly intact Psych/Mental Status: Normal Affect, Appropriate Patient seen and examined prior to discharge. Physical assessment as noted above. Patient stable for discharge home with follow-up with primary healthcare provider next week as noted above. This patient was seen by MAMI Barnes under the supervision of Dr. Pate. Discharge Diet: Carb Control Diet Discharge Activity: Return to Normal Activity Call your doctor if you observe: Shortness of breath, Dizziness, Fainting spells, Chest pain Home Medications: Medications to take at Discharge RX: Lisinopril [Zestril] 5 mg PO DAILY 08/17/15 RX: Aspirin [Adult Low Dose Aspirin EC] 81 mg PO DAILY 02/04/16 RX: Furosemide [Lasix] 40 mg PO DAILY 02/04/16 RX: Simvastatin [Zocor] 40 mg PO QHS 01/24/17 RX: Clopidogrel Bisulfate [Plavix] 75 mg PO DAILY 06/23/17 RX: Metoprolol Tartrate [Lopressor (beta elder)] 25 mg PO BID 06/23/17 RX: Trazodone HCl 50 mg PO QHS 06/23/17 RX: Nitroglycerin [Nitrostat] 0.4 mg SUBLINGUAL Q5M PRN 09/28/17 RX: Sertraline HCl [Zoloft] 50 mg PO DAILY #30 tab 11/29/17 RX: Pantoprazole Sodium [Protonix] 40 mg PO DAILY #30 tab 01/11/18 RX: Insulin Detemir [Levemir FlexPen] 23 units SC BREAKFAST 02/18/18 RX: Ondansetron [Zofran Odt] 4 mg PO Q8H PRN PRN #10 tablet 05/26/18 RX: Oxycodone HCl/Acetaminophen [Percocet 5-325] 1 tablet PO Q6H PRN PRN 3 Days #12 tablet 05/26/18 RX: Nitrofurantoin Monohyd/M-Cryst [Macrobid 100 mg Capsule] 100 mg PO BID 05/30/18 Glimepiride [Amaryl] 4 mg PO DAILY 05/31/18 Metformin HCl [Glucophage] 1,000 mg PO BIDCM 05/31/18 RX: Glimepiride [Amaryl] 4 mg PO DAILY #30 tab 05/31/18 RX: Insulin Detemir [Levemir Flextouch] 26 unit SC QHS #1 insuln.pen 05/31/18 RX: Metformin HCl 1,000 mg PO BID #60 tab 05/31/18 Following Prescrptions Were Given to Patient: RX: Glimepiride [Amaryl] 4 mg PO DAILY #30 tab RX: Insulin Detemir [Levemir Flextouch] 26 unit SC QHS #1 insuln.pen RX: Metformin HCl 1,000 mg PO BID #60 tab Primary Care Physician: Selvin Sifuentes NP-C [Primary Care Provider] - Please follow up with your Primary Care Physician in: As scheduled next week Disposition: Home Minutes spent on discharge:: 35 Patient Condition:: Stable Medical Necessity - Tobacco Use Smoking Status: Current every day smoker Meaningful Use Info Meaningful Use Diagnoses (Choose all that apply): None applicable <Espinoza Pate - Last Filed: 05/31/18 16:03> Discharge Date and Diagnosis - Secondary Discharge Diagnosis Chronic Problems GERD (gastroesophageal reflux disease) (Chronic) Uncontrolled type 2 diabetes mellitus (Chronic) Benign essential hypertension (Chronic) Type 2 diabetes mellitus (Chronic) Hyperlipidemia (Chronic) Coronary artery disease (Chronic) ROMEL LAD 01/21 COPD (chronic obstructive pulmonary disease) (Chronic) cont smoking Tobacco abuse (Chronic) NSTEMI (non-ST elevated myocardial infarction) (Chronic) Hospital Course and Treatment Summary of Care Provided: Addendum: Dr. Pate I personally examined the patient and reviewed the chart. I agree with the above. She continues to have difficutly with either affording her medications or remembering to take them. She has been off of her metformin and glimepiride for over a month. Discussed with her that her symptoms were all d/t her elevated glucose (she was not in DKA). He refilled her prescriptions from the pharmacy her so she at least has enough to get her through next week when she has f/u with her PCP. Code Visit Inpatient E AND M: [id number] Disch Hosp 05/31/18 1532 <Electronically signed by Nguyen BOLAÑOS> Date Nguyen ROMEROC 05/31/18 1604<Electronically signed by Espinoza Pate MD> Cosigner Signature (if applicable): Date Espinoza Pate MD CC: MAMI Rain; Selvin VILLATORO; Espinoza Pate MD Signed DISCHARGE INSTRUCTION Observed: 05/31/2018 Status: F Source: [place] 3:16 PM [facility] REPOSITORY [facility] Medical Records Department [address] [place] [address] Instructions for Home/Discharge Instructions 05/31/18 1513 MR#: [id number] Acct: [id number] Name: DANIELLE MARY Rep #: [id number] : 1955 62 From: Nguyen BOLAÑOS PCP: Selvin Vega Status: ADM [facility] - Discharge Diagnoses Current Active Problems: Current Active and Chronic Problems Dysarthria (Acute) You will use the following diet at home:: Calorie/Carbohydrate Controlled (specify 1200, 1400, etc) Discharge Activity: Return to Normal Activity Call your doctor if you observe: Shortness of breath, Dizziness, Fainting spells, Chest pain Additional Instructions: Continue to check blood sugar before meals and at bedtime. Document findings. Bring documented blood glucose readings to follow- up visit with healthcare provider. Allergies/Adverse Reactions: Allergies Penicillins Allergy (Verified 05/30/18 18:39) Hives hydrocodone bitartrate [From Vicodin] Adverse Reaction (Verified 05/30/18 18:39) Vomiting ibuprofen Adverse Reaction (Verified 05/30/18 18:39) Vomiting Medications to take at Discharge Lisinopril [Zestril] 5 mg PO DAILY 08/17/15 Aspirin [Adult Low Dose Aspirin EC] 81 mg PO DAILY 02/04/16 Furosemide [Lasix] 40 mg PO DAILY 02/04/16 Simvastatin [Zocor] 40 mg PO QHS 01/24/17 Clopidogrel Bisulfate [Plavix] 75 mg PO DAILY 06/23/17 Metoprolol Tartrate [Lopressor (beta elder)] 25 mg PO BID 06/23/17 Trazodone HCl 50 mg PO QHS 06/23/17 Nitroglycerin [Nitrostat] 0.4 mg SUBLINGUAL Q5M PRN 09/28/17 Sertraline HCl [Zoloft] 50 mg PO DAILY #30 tab 11/29/17 Pantoprazole Sodium [Protonix] 40 mg PO DAILY #30 tab 01/11/18 Insulin Detemir [Levemir FlexPen] 23 units SC BREAKFAST 02/18/18 Ondansetron [Zofran Odt] 4 mg PO Q8H PRN PRN #10 tablet 05/26/18 Oxycodone HCl/Acetaminophen [Percocet 5-325] 1 tablet PO Q6H PRN PRN 3 Days #12 tablet 05/26/18 Nitrofurantoin Monohyd/M-Cryst [Macrobid 100 mg Capsule] 100 mg PO BID 05/30/18 Glimepiride [Amaryl] 4 mg PO DAILY 05/31/18 Glimepiride [Amaryl] 4 mg PO DAILY #30 tab 05/31/18 Insulin Detemir [Levemir Flextouch] 26 unit SC QHS #1 insuln.pen 05/31/18 Metformin HCl 1,000 mg PO BID #60 tab 05/31/18 Metformin HCl [Glucophage] 1,000 mg PO BIDCM 05/31/18 The following prescriptions were given: Glimepiride [Amaryl] 4 mg PO DAILY #30 tab Insulin Detemir [Levemir Flextouch] 26 unit SC QHS #1 insuln.pen Metformin HCl 1,000 mg PO BID #60 tab Primary Care Physician: Selvin Sifuentes NP-C [Primary Care Provider] - Please follow up with your Primary Care Physician in: As scheduled next week Test Results: Test results from this visit will be discussed in further detail at your follow-up appointment, if applicable. Proposed Discharge Date: 05/31/18 05/31/18 1516 <Electronically signed by Nguyen BOLAÑOS> Date Nguyen BOLAÑOS CC: Selvin VILLATORO; Orlando Silva MD BEDSIDE GLUCOSE Collected: 05/31/2018 Status: F Source: [place] 3:03 PM [facility] REPOSITORY TYPE CODE TESTS RESULT OUT OF REFERENCE UNITS RANGE LAB L501.080 70-110 mg/dL High BEDSIDE GLU 259 Result Comment: MANAGEMENT OF PATIENT CARE PER NURSING PROTOCOL Performed By: #### L501.080 #### [facility] Point of Care [address] [place] [address] EMERGENCY DEPARTMENT Observed: 05/31/2018 Status: F Source: [place] SUMMARY 12:44 PM [facility] REPOSITORY [facility] Medical Records Department [address] [place] [address] Emergency Department Summary 05/30/181955 MR#: [id number] Acct: [id number] Name: DANIELLE MARY Rep #: [id number] : 1955 62 From: Kyra Reese MD PCP: Selvin Vega Status: ADM [facility] - ER Visit Summary Date of Service: 05/30/18 Chief Complaint: High blood sugar History of Present Illness: The patient is a 62 F who presents for evaluation of symptomatic high blood sugar. Patient states she was at [facility] approximately 1 hour prior to presentation and began feeling funny. She checked her blood sugar and it read high. In the meantime she is developed nausea, chest pain, and has vomited. She states she feels lightheaded and unsteady on her feet. She is on insulin and has taken it as prescribed. She denies any recent illness or change in physical activity or diet. Physical Examination: Vital signs: afebrile, hemodynamically stable, no hypoxia on room air General: well nourished, well developed, in no distress Skin: warm, dry, no rash, no pallor HEENT: normocephalic and atraumatic; PERRL, EOMI, moist mucous membranes Cardiovascular: regular rate and rhythm without murmurs, no peripheral edema, 2+ pulses all distal extremities Respiratory: No increased work of breathing, lungs are clear to auscultation bilaterally, no rales, rhonchi or wheezing Abdominal: Abdomen is soft, nontender with normoactive bowel sounds, no guarding or rebound, no masses MSK: Moves all extremities, no deformities, normal strength Neuro: Awake and alert, oriented 4. No facial droop, sensation and motor function intact and symmetric, bilateral lower extremity ataxia with heel up and down opposite gray. Test Results: Abnormal Lab Results WBC 6.0 RBC 3.94 L Hgb 12.3 Hct 36.1 L WBC RBC Hgb Hct MCV MCH MCHC RDW RDW Differential Plt Count MPV Immature Gran % (Auto) WBC RBC Hgb Hct MCV MCH WBC RBC Hgb Hct MCV MCH MCHC RDW RDW Differential Plt Count MPV Immature Gran % (Auto) WBC RBC Hgb Hct MCV MCH MCHC RDW RDW Differential Plt Count MPV Immature Gran % (Auto) Neut % (Auto) Clinical Impression(s) from Imaging Studies Brain CT 05/30/18 20:45 IMPRESSION: Normal unenhanced CT scan of the brain. Electronically Signed: Ja Mott MD at 21:25 EDT Tel , Service support , Emergency Department Course and Treatment: Patient presented with [id number]-elki glucose in the 500s. She was given IV fluids for hydration. Labs were performed to evaluate for possible DKA, and patient had no abnormal bicarb, no ketones, and a normal pH on VBG. Because of patient's complaint of chest pain, EKG was performed showing no ischemic changes. Troponin negative. Patient had no neuro deficits other than complaining of some unsteadiness in her gait and coarse movement with lower extremity cerebellar testing. Head CT was performed due to her initial complaint of gait instability. It showed no intracranial hemorrhage or other acute abnormality. After receiving IV fluids, patient stated she felt much better, and blood sugar was decreasing without any insulin at this point. Patient ambulated again and was able to walk unassisted, and stated that her gait was now at her baseline. Likely her earlier unsteadiness was related to her constellation of symptoms due to hyperglycemia, as all symptoms started in the same brief period, including feeling funny, chest pain, nausea, and lightheadedness. Patient was given subcutaneous insulin to augment her BGT control -- insulin drip not necessary as BGT improving significantly from hydration alone. Patient began to complain of worsening chest pain despite resolution of her other symptoms and her improved glucose level. Given that she does have a significant cardiac history, repeat EKG was performed showing no new changes. Time frame of chest pain onset has only been a few hours, thus EKG or troponin changes in this high risk patient would not definitely be evident at this point. Patient received aspirin and NTG, with resolution of CP after NTG. She was admitted for further management of poorly controlled blood sugar and chest pain workup in patient with significant cardiac history. Treatment Plan: [] Disposition: [] Impression: Symptomatic hyperglycemia, acute chest pain, history of CAD This note was generated with [employer] dictation software. It may contain incorrect words, spelling, and punctuation that were not noted in review of the chart prior to signing ED Disposition - Plan for ED Patient: Disposition: Acute Care Hospital [facility] Chief Complaint: Hyperglycemia What to do if you have Problems For any increased pain, shortness of breath, bleeding, nausea or vomiting, chest pain, or any unexpected problems, contact your Primary Care Provider. Call [facility] ([phone]) or report to the closest Emergency Room. Call 911 if necessary. 05/31/18 8832 <Electronically signed by Kyra Reese MD> Date Kyra Reese MD Cosigner Signature (If Indicated): Date CC: Selvin VILLATORO BEDSIDE GLUCOSE Collected: 05/31/2018 Status: F Source: [place] 12:23 PM [facility] REPOSITORY TYPE CODE TESTS RESULT OUT OF REFERENCE UNITS RANGE LAB L501.080 70-110 mg/dL High BEDSIDE GLU 383 Result Comment: MANAGEMENT OF PATIENT CARE PER NURSING PROTOCOL Performed By: #### L501.080 #### [facility] Point of Care [address] [place], [place] [address] BEDSIDE GLUCOSE Collected: 05/31/2018 Status: F Source: [place] 6:45 AM [facility] REPOSITORY TYPE CODE TESTS RESULT OUT OF REFERENCE UNITS RANGE LAB L501.080 70-110 mg/dL High BEDSIDE GLU 230 Result Comment: MANAGEMENT OF PATIENT CARE PER NURSING PROTOCOL Performed By: #### L501.080 #### [facility] Point of Care [address] [place], [place] [address] CBC W/DIFF, AUTOMATED Collected: 05/31/2018 Status: F Source: [place] 5:30 AM [facility] REPOSITORY TYPE CODE TESTS RESULT OUT OF RANGE REFERENCE UNITS LAB L100.1000 4.4-11.0 K/mm3 Normal WBC 6.0 LAB L100.1200 4.2-5.4 M/mm3 Low RBC 3.70 LAB L100.1300 12.0-15.0 g/dl Low HGB 11.4 LAB L100.1400 37-47 % Low HCT 33.8 LAB L100.1500 81-99 fL Normal MCV 91.4 LAB L100.1600 27.0-32.0 pg Normal MCH 30.8 LAB L100.1700 32-36 g/gl Normal MCHC 33.7 LAB L100.1810 11.6-14.6 % Normal RDW CV 12.9 LAB L100.1820 35.1-43.9 fl Normal RDW SD 42.8 LAB L100.1900 150-450 K/mm3 Normal PLT 216 LAB L100.2000 6.2-12.0 fl Normal MPV 10.3 LAB L100.2100 47-70 % Low NEUT% 40.6 LAB L100.2200 19-41 % High LY% 45.3 LAB L100.2300 0-10 % High MONO% 10.3 LAB L100.2400 0-5 % Normal EO% 3.0 LAB L100.2500 0-1 % Normal BASO% 0.5 LAB L100.2550 0.0-0.9 % Normal IM GRAN % 0.300 Result Comment: IG% - Immature Granulocytes (promyelocytes, myelocytes and metamyelocytes) > 1% indicates that a LEFT SHIFT is Present. LAB L100.2620 2.0-7.7 X10 3/uL Normal Absolute Neut 2.4 LAB L100.2720 0.83-4.51 X10 3/ul Normal Absolute Lymph 2.72 Performed By: #### L100.0100 #### [facility] [address] [place], [address] PROTHROMBIN TIME W/INR Collected: 05/31/2018 Status: F Source: [place] 5:30 AM [facility] REPOSITORY TYPE CODE TESTS RESULT OUT OF RANGE REFERENCE UNITS LAB L300.4150 11.7-14.9 SECONDS Normal PROTIME 12.7 LAB L300.4200 Normal INR 1.0 Performed By: #### L300.3900, L300.4310 #### [facility] [address] [place], [place], [address] PARTIAL THROMBOPLAST Collected: 05/31/2018 Status: F Source: [place] TIME 5:30 AM [facility] REPOSITORY TYPE CODE TESTS RESULT OUT OF RANGE REFERENCE UNITS LAB L300.4310 24.1-36.2 Seconds Normal PTT 25.3 Performed By: #### L300.3900, L300.4310 #### [facility] [address] [place], [place], [id number] COMPREHENSIVE METABOLIC Collected: 05/31/2018 Status: F Source: [place] 5:30 AM [facility] REPOSITORY Order Comment: 'TROP' Serial specimen #1, #2 or #3: 3 'TROP' Serial specimen #1, #2, #3, or #4: 3 TYPE CODE TESTS RESULT OUT OF RANGE REFERENCE UNITS LAB L501.0100 74-106 mg/dL High GLU 210 Result Comment: Glucose result greater than or equal to 200 mg/dL suggests DIABETES MELLITUS per A.D.A. criteria. Please note revised GLUCOSE reference range effective 2017. LAB L501.1000 7-18 mg/dL Low BUN 5 LAB L501.1100 0.55-1.02 mg/dL Low CREAT,SERUM 0.54 Result Comment: The validity of the calculated GFR AND GFRAA in patients over 70 years has not been determined. Clinical correlation is essential. LAB L501.1110 >60 mL/min Normal EST GFR 120 Result Comment: Non- GFR Calc LAB L501.1115 >60 mL/min Normal EST GFR - AA 145 Result Comment: GFR Calc LAB L501.1255 ml/min Normal Estimated CRCL 87.06 LAB L501.1300 10-20 RATIO Low BUN/CRE 9.2 LAB L501.1500 6.4-8. g/dL Low 2 T PROT 5.6 LAB L501.1800 3.2-5. g/dL Low 0 ALB 3.0 LAB L501.1950 2.2-4. g/dL Normal 2 GLOB 2.6 LAB L501.2000 0.9-2. RATIO Normal 4 A/G 1.2 LAB L501.2200 8.5-10 mg/dL Low .1 CA 7.9 LAB L501.4100 15-37 U/L Normal AST 19 LAB L501.4305 45-117 U/L Normal ALK P 48 LAB L501.4405 13-56 U/L Normal ALT 22 LAB L501.4600 0.20-1 mg/dL Normal .00 T BILI 0.30 LAB L501.5300 136-14 mmol/L Normal 5 NA 145 LAB L501.5600 3.5-5. mmol/L Normal 1 K 3.7 LAB L501.5900 98-107 mmol/L High CL 113 LAB L501.6100 21.0-3 mmol/L Normal 2.0 CO2 21.0 LAB L501.6200 5-15 Normal GAP 11 Performed By: #### L500.4050, L500.4100, L501.4010, L501.9520 #### [facility] [address] [place], [place], [address] LIPID PROFILE Collected: 05/31/2018 Status: F Source: [place] 5:30 AM [facility] REPOSITORY Order Comment: 'TROP' Serial specimen #1, #2 or #3: 3 'TROP' Serial specimen #1, #2, #3, or #4: 3 TYPE CODE TESTS RESULT OUT OF RANGE REFERENCE UNITS LAB L501.4900 200 mg/dL Normal CHOL 144 Result Comment: <200 mg/dL Desirable 200-240 mg/dL Borderline >240 mg/dL High Risk LAB L501.5000 mg/dL Normal TRIG 128 Result Comment: The drugs N-Acetylcysteine and Metamizole may falsely depress this assay. Serum Triglycerides Reference Interval Normal <150 mg/dL Borderline high 150 - 199 mg/dL High 200 - 499 mg/dL Very High > or = 500 mg/dL LAB L501.6400 mg/dL Normal HDL 43 Result Comment: The drugs N-Acetylcysteine and Metamizole may falsely depress this assay. Reference Range HDL <40 mg/dL Low HDL Cholesterol HDL >or= 60 mg/dL High HDL Cholesterol LAB L501.6500 0-130 mg/dL Normal LDL 75 LAB L501.6600 5-40 mg/dL Normal VLDL 26 Performed By: #### L500.4050, L500.4100, L501.4010, L501.9520 #### [facility] [address] [place], [address] TROPONIN-I Collected: 05/31/2018 Status: F Source: [place] 5:30 AM [facility] REPOSITORY Order Comment: 'TROP' Serial specimen #1, #2 or #3: 3 'TROP' Serial specimen #1, #2, #3, or #4: 3 TYPE CODE TESTS RESULT OUT OF RANGE REFERENCE UNITS LAB L501.4010 <0.045 ng/mL Normal < 0.015 TROPONIN-I Result Comment: TROPONIN-I EXPECTED VALUES <0.045 Negative 0.045 - 0.590 Consistent with Cardiac Damage > OR = 0.600 Critical Value Not every elevated troponin is indicative of VT. These values should be used with clinical judgement in examining the patient's clinical picture for diagnosis. To establish a diagnosis of VT versus myocardial injury, there must be a demonstrated rise and/or fall in the troponin values, in addition to ischemic symptoms, EKG changes, new regional wall motion abnormality, and/or angiographical evidence. PLEASE NOTE: REFERENCE RANGES EDITED 18 Performed By: #### L500.4050, L500.4100, L501.4010, L501.9520 #### [facility] [address] [place], [address] THYROID STIM HORMONE Collected: 05/31/2018 Status: F Source: [place] ([place]) 5:30 AM [facility] REPOSITORY Order Comment: 'TROP' Serial specimen #1, #2 or #3: 3 'TROP' Serial specimen #1, #2, #3, or #4: 3 TYPE CODE TESTS RESULT OUT OF RANGE REFERENCE UNITS LAB L501.9520 0.358-3.74 uIU/mL Normal TSH 2.66 Performed By: #### L500.4050, L500.4100, L501.4010, L501.9520 #### [facility] [address] [place], [address] HEMOGLOBIN A1C Collected: 05/31/2018 Status: F Source: [place] 5:30 AM [facility] REPOSITORY TYPE CODE TESTS RESULT OUT OF RANGE REFERENCE UNITS LAB L501.9985 4.2-6.3 % High HGB A1C 10.5 Performed By: #### L501.9985 #### [facility] [address] [place], [address] TROPONIN-I Collected: 05/31/2018 Status: F Source: [place] 2:46 AM [facility] REPOSITORY Order Comment: 'TROP' Serial specimen #1, #2 or #3: 2 TYPE CODE TESTS RESULT OUT OF RANGE REFERENCE UNITS LAB L501.4010 <0.045 ng/mL Normal < 0.015 TROPONIN-I Result Comment: TROPONIN-I EXPECTED VALUES <0.045 Negative 0.045 - 0.590 Consistent with Cardiac Damage > OR = 0.600 Critical Value Not every elevated troponin is indicative of VT. These values should be used with clinical judgement in examining the patient's clinical picture for diagnosis. To establish a diagnosis of VT versus myocardial injury, there must be a demonstrated rise and/or fall in the troponin values, in addition to ischemic symptoms, EKG changes, new regional wall motion abnormality, and/or angiographical evidence. PLEASE NOTE: REFERENCE RANGES EDITED 18 Performed By: #### L501.4010 #### [facility] [address] [place], [place], [address] TROPONIN-I Collected: 05/30/2018 Status: F Source: [place] 11:55 PM [facility] REPOSITORY Order Comment: 'TROP' Serial specimen #1, #2 or #3: 1 'TROP' Serial specimen #1, #2, #3, or #4: 1 TYPE CODE TESTS RESULT OUT OF RANGE REFERENCE UNITS LAB L501.4010 <0.045 ng/mL Normal < 0.015 TROPONIN-I Result Comment: TROPONIN-I EXPECTED VALUES <0.045 Negative 0.045 - 0.590 Consistent with Cardiac Damage > OR = 0.600 Critical Value Not every elevated troponin is indicative of VT. These values should be used with clinical judgement in examining the patient's clinical picture for diagnosis. To establish a diagnosis of VT versus myocardial injury, there must be a demonstrated rise and/or fall in the troponin values, in addition to ischemic symptoms, EKG changes, new regional wall motion abnormality, and/or angiographical evidence. PLEASE NOTE: REFERENCE RANGES EDITED 18 Performed By: #### L501.4010, L501.9520 #### [facility] [address] [place], [address] THYROID STIM HORMONE Collected: 05/30/2018 Status: F Source: [place] (TSH) 11:55 PM [facility] REPOSITORY Order Comment: 'TROP' Serial specimen #1, #2 or #3: 1 'TROP' Serial specimen #1, #2, #3, or #4: 1 TYPE CODE TESTS RESULT OUT OF RANGE REFERENCE UNITS LAB L501.9520 0.358-3.74 uIU/mL High TSH 4.57 Performed By: #### L501.4010, L501.9520 #### [facility] [address] [place], [address] HISTORY AND PHYSICAL Observed: 05/30/2018 Status: F Source: [place] EXAM 11:35 PM [facility] REPOSITORY [facility] Medical Records Department [address] [place] [address] History and Physical 05/30/18 2252 MR#: [id number] Acct: [id number] Name: DANIELLE MARY Rep #: [id number] : 1955 62 From: Sandeep Anna MD PCP: Selvin Vega Status: ADM WU Y Location: [place] [address] Problem List (1) Dysarthria Status: Acute (2) Chest pain Status: Acute (3) Benign essential hypertension Status: Chronic (4) COPD (chronic obstructive pulmonary disease) Status: Chronic Comment: cont smoking (5) Coronary artery disease Status: Chronic Comment: ROMEL LAD 01/21 (6) Hyperlipidemia Status: Chronic Qualifiers: (7) NSTEMI (non-ST elevated myocardial infarction) Status: Chronic (8) Tobacco abuse Status: Chronic (9) Type 2 diabetes mellitus Status: Chronic Qualifiers: Diabetes mellitus custodial insulin use: with custodial use Diabetes mellitus complication status: without complication Qualified Code(s): E11.9 - Type 2 diabetes mellitus without complications; Z79.4 - terminologist (current) use of insulin (10) Uncontrolled type 2 diabetes mellitus Status: Chronic (11) GERD (gastroesophageal reflux disease) Status: Chronic History of Present Illness Date of Admission: 05/30/18 Chief Complaint: Chest pain and uncontrolled diabetes The patient is a 62 year old F with history of coronary artery disease status post 4 stents, diabetes mellitus type 2 with uncontrolled blood sugar came to ER with very high blood sugar. She is also feeling dizzy and lightheaded and in the ER but she was found more than 500 on Accu-Chek and 518 on BMP. She developed chest pressure while in the ER which resolved after nitro. Her pain was midsternal which radiated to left shoulder with no associated shortness of breath, palpitation or diaphoresis. She has chronic shortness of breath on exertion due to history of COPD. She also said about 3 days ago she had dysarthria noticed by her daughter. She also has gait incoordination for last 3-4 weeks. She denies any prior history of stroke. [] In ED, initial blood work is negative for DKA with normal acetone, anion gap 9, CO2 23 and negative troponin. Magnesium normal. EKG shows normal sinus rhythm at 72 bpm. Past Medical History Past Medical History (Chronic Problems): Chronic Problems GERD (gastroesophageal reflux disease) (Chronic) Uncontrolled type 2 diabetes mellitus (Chronic) Benign essential hypertension (Chronic) Type 2 diabetes mellitus (Chronic) Hyperlipidemia (Chronic) Coronary artery disease (Chronic) ROMEL LAD 01/21 COPD (chronic obstructive pulmonary disease) (Chronic) cont smoking Tobacco abuse (Chronic) NSTEMI (non-ST elevated myocardial infarction) (Chronic) Allergies Penicillins Allergy (Verified 05/30/18 18:39) Hives hydrocodone bitartrate [From Vicodin] Adverse Reaction (Verified 05/30/18 18:39) Vomiting ibuprofen Adverse Reaction (Verified 05/30/18 18:39) Vomiting Home Medications: Ambulatory Orders Medication Instructions Recorded Lisinopril [Zestril] 5 mg PO DAILY 08/17/15 Aspirin [Adult Low Dose Aspirin EC] 81 mg PO DAILY 02/04/16 Furosemide [Lasix] 40 mg PO DAILY 02/04/16 Surgical History: angioplasty, cholecystectomy, hysterectomy, - - LAD PCI/ROMEL-02/08/2014 at [facility], stent placement at [facility] 03/15/17 along with percutaneous balloon angioplasty Psychiatric History: No pertinent psych hx HYDRO MECHANIC History: No pertinent HYDRO MECHANIC history Smoking Status: Current every day smoker - *Family History Maternal History Items: Heart Disease Paternal History Items: Heart Disease Sibling History Items: Heart Disease Review of Systems Constitutional: Denies: Chills, Fever, Weight Change HEENT: Denies: Head Aches, Sinus Congestion, Sinus Drainage Cardiovascular: Reports: Chest Pain. Denies: Palpitations Respiratory: Denies: Cough, Shortness of breath at rest, Sputum production Gastrointestinal: Denies: Abdominal Pain, Nausea, Vomiting Genitourinary: Denies: Dysuria Musculoskeletal: Reports: Joint Pain. Denies: Joint Tenderness Skin: Denies: Rash, Wounds Neurological: Reports: Balance problems, Change in Speech. Denies: Difficulty swallowing, Focal weakness, Numbness, Tingling Psychiatric: Reports: Anxiety, Depression. Denies: Homicidal Ideations, Suicidal Ideations Hematologic/ Lymphatic: Denies: Easy Bruising, Easy Bleeding VTE Information - Inpt Only VTE Present on Admission: No VTE Mechan Device Prophylaxis: None VTE Pharm Prophylaxis ordered?: Yes Patient Problems: Active and Suspected Problems Dysarthria (Acute) - Physical Exam General: Alert, Oriented x3, Cooperative HEENT: Atraumatic, PERRLA, EOMI, Normocephalic Neck: Supple, No JVD, Negative Carotid Bruits Lungs: Clear to auscultation, Normal air movement Cardiovascular: Regular rate, Regular Rhythm, Normal S1, Normal S2, No murmurs Abdomen: Bowel Sounds Present, Soft, Non Tender, Non-Distended Extremities: No edema, Capillary Refill Less than 3 Seconds Skin: No rashes, No breakdown Musculoskeletal: No Tenderness to Palpation of Joints or Extremities, Arthritic Changes Neurological: Cranial nerves II-XII grossly intact, Neuro grossly intact, - - NIHSS 0 Gait assessment could not be done in ER. Psych/Mental Status: Normal Affect, Appropriate Vital Signs Temp Pulse Resp BP Pulse Ox 97.5 F L 82 21 H 149/85 H 96 05/30/18 18:38 05/30/18 22:09 05/30/18 22:09 05/30/18 22:09 05/30/18 22:09 Oxygen Delivery Method Room Air Weight: 150 lb Body Mass Index (BMI) 26.5 Finger Stick Blood Glucose 243 Laboratory Tests Past 24 Hrs WBC RBC Hgb Hct MCV MCH WBC RBC Hgb Hct MCV MCH MCHC RDW RDW Differential Plt Count MPV Immature Gran % (Auto) Neut % (Auto) Lymph % (Auto) Kleberg % (Auto) POC Glucose POC Glucose 241 H 287 H 393 H POC Glucose > 500 H* Assessment/Plan All Active Problems Dysarthria (Acute) Chest pain (Acute) VTE (venous thromboembolism) (Resolved) The patient is a 62 year old F with history of coronary artery disease status post 4 stents, diabetes mellitus type 2 with uncontrolled blood sugar came to ER with very high blood sugar. She is also feeling dizzy and lightheaded and in the ER but she was found more than 500 on Accu-Chek and 518 on BMP. She developed chest pressure while in the ER which resolved after nitro. Her pain was midsternal which radiated to left shoulder with no associated shortness of breath, palpitation or diaphoresis. She has chronic shortness of breath on exertion due to history of COPD. She also said about 3 days ago she had dysarthria noticed by her daughter. She also has gait incoordination for last 3-4 weeks. She denies any prior history of stroke. [] In ED, initial blood work is negative for DKA with normal acetone, anion gap 9, CO2 23 and negative troponin. Magnesium normal. EKG shows normal sinus rhythm at 72 bpm. 1. Atypical chest pain: The patient is being admitted in PCU. Her vending attendant is Dr. Quesada. She had 4 stents in the past. He had last stress test in March 29, 2018 shows normal adequate treadmill echo with no anginal symptoms. Normal BP response to exercise. Estimated EF 65%. She had last cardiac cath in January 2018 which showed nonobstructive coronary artery disease distal to stent in LAD 30-40%. Normal LV function with EF 65-70%. Nonobstructive disease proximal RCA. Was recommended medical management continuation of aspirin and Plavix. Cycle cardiac enzymes. Lipid profile tomorrow a.m. she had last Pap smear file which shows LDL 63, HDL 39 in January 2018 2. Nonspecific neurological symptoms, gait incoordination and dysarthria recently: NIH stroke scale 0. CT brain does not show any acute change. NIH stroke scale. MRI brain ordered. Neuro consult. If MRI is positive for recent infarct, full stroke workup. BP and glucose control. PT, OT and speech evaluation. 3. Uncontrolled diabetes mellitus with hyperglycemia: A1c tomorrow a.m. Accu-Chek before meals and at bedtime and cover with NovoLog sliding scale. Blood sugar is controlled, last one 160 mg/dL. K3.4. Lantus insulin twice daily, continue home dose and titrate as per Accu-Cheks. 4. Recent UTI: Patient is on Macrobid 100 mg twice daily since 05/26/2018, total 10 dosages. 1 more day of antibiotic. Coronary artery disease status post stents, COPD, dyslipidemia, hypertension and GERD: Multiple comorbidities complicates the present care and expect difficult and delay recovery. Home medication reconciliation done. This note was generated with [employer] dictation software. Every effort was made to ensure accuracy, however computerized opening machine cleaner mistakes may persist. Code Visit OBSV E AND M: 27597 Initial observation care L3 05/30/18 2335 <Electronically signed by Sandeep Anna MD> Date Sandeep Anna MD Cosigner Signature: Date (if applicable) CC: Selvin VILLATORO; Sandeep Anna MD Signed BRAIN WITHOUT Observed: 05/30/2018 Status: F Source: [place] CONTRAST 11:20 PM [facility] REPOSITORY [facility] Imaging Services [address] [place] [id number] Brain without Contrast MR#: [id number] Acct: [id number] Name: DANIELLE MARY Rep #: [id number] : 1955 F 62 From: Baldo Millan MD PCP: Selvin Vega Status: DIS WU Study: Brain without Contrast Date of Exam: 05/30/18 Exam# [id number] Ordering Dr: Sandeep Anna MD STUDY: MRI BRAIN WITHOUT CONTRAST REASON FOR EXAM: Female, 62 years old. Dizziness. TECHNIQUE: Standardized multiplanar fat and water weighted pulse sequences were obtained. COMPARISON: CT head without contrast 05/30/2018. FINDINGS: Normal size of the ventricles and extra-axial spaces for the patient's age. Normal white matter tracts of the supratentorial brain. Normal bilateral basal ganglia. Normal thalami. There is no extra-axial fluid accumulation. Normal flow voids within the major intracranial circulation suggesting patency by spin echo criteria. Normal sella turcica, pituitary gland, infundibular stalk, optic chiasm and hypothalamus. Normal tectal plate and pineal gland. Normal midbrain, pascual and medulla. Normal cerebellum. Normal basal cisterns. Normal bilateral temporal bones. Normal bilateral internal auditory canals. No demonstrated orbital abnormality, within the constraints of a routine brain study. Normal visualized paranasal sinuses. Normal calvarium and skull base. Normal visualized soft tissue structures. Normal visualized upper cervical spine. MRI/Brain without Contrast IMPRESSION: Normal unenhanced MRI of the brain. Electronically Signed: Baldo Millan MD at 10:30 EDT , Service support , CC: Selvin VILLATORO; Sandeep Anna MD School Psychologist Assistant: Signed BASIC METABOLIC Collected: 05/30/2018 Status: F Source: [place] PROFILE (BMP) 10:33 PM [facility] REPOSITORY TYPE CODE TESTS RESULT OUT OF RANGE REFERENCE UNITS LAB L501.0100 74-106 mg/dL High GLU 160 Result Comment: Fasting Glucose result greater than or equal to 126 mg/dL suggests DIABETES MELLITUS per A.D.A. criteria. Please note revised GLUCOSE reference range effective 2017. LAB L501.1000 7-18 mg/dL Low BUN 6 LAB L501.1100 0.55-1.02 mg/dL Normal CREAT,SERUM 0.76 Result Comment: The validity of the calculated GFR AND GFRAA in patients over 70 years has not been determined. Clinical correlation is essential. LAB L501.1110 >60 mL/min Normal EST GFR 81 Result Comment: Non- GFR Calc LAB L501.1115 >60 mL/min Normal EST GFR - AA 98 Result Comment: GFR Calc LAB L501.1255 ml/min Normal Estimated CRCL 61.86 LAB L501.1300 10-20 RATIO Low BUN/CRE 7.9 LAB L501.2200 8.5-10 mg/dL Low .1 CA 8.2 LAB L501.5300 136-14 mmol/L Normal 5 NA 142 LAB L501.5600 3.5-5. mmol/L Low 1 K 3.4 Result Comment: Slight Hemolysis, Result may be falsely increased. LAB L501.5900 98-107 mmol/L High CL 111 LAB L501.6100 21.0-32.0 mmol/L Normal CO2 23.0 LAB L501.6200 5-15 Normal 8 GAP Performed By: #### L500.2500 #### [facility] [address] [place], [address] BEDSIDE GLUCOSE Collected: 05/30/2018 Status: F Source: [place] 10:04 PM [facility] REPOSITORY TYPE CODE TESTS RESULT OUT OF REFERENCE UNITS RANGE LAB L501.080 70-110 mg/dL High BEDSIDE GLU 241 Result Comment: MANAGEMENT OF PATIENT CARE PER NURSING PROTOCOL Performed By: #### L501.080 #### [facility] Point of Care [address] [place] [address] BEDSIDE GLUCOSE Collected: 05/30/2018 Status: F Source: [place] 9:09 PM [facility] REPOSITORY TYPE CODE TESTS RESULT OUT OF REFERENCE UNITS RANGE LAB L501.080 70-110 mg/dL High BEDSIDE GLU 287 Result Comment: MANAGEMENT OF PATIENT CARE PER NURSING PROTOCOL Performed By: #### L501.080 #### [facility] Point of Care [address] [place] [address] BRAIN/HEAD WITHOUT Observed: 05/30/2018 Status: F Source: [place] CONTRAST 8:51 PM [facility] REPOSITORY [facility] Imaging Services [address] [place] [address] Brain/Head without Contrast MR#: [id number] Acct: [id number] Name: DANIELLE MARY Rep #: [id number] : 1955 F 62 From: Ja Mott MD PCP: Selvin Vega Status: REG ER Study: Brain/Head without Contrast Date of Exam: 05/30/18 Exam# [id number] Ordering Dr: Kyra Reese MD STUDY: CT BRAIN WITHOUT CONTRAST REASON FOR EXAM: Female, 62 years old. Dizziness RADIATION DOSAGE (If Supplied By Facility): CTDIvol = ( 44.99 ) mGy, DLP = ( 745.49 ) mGycm TECHNIQUE: Transaxial CT imaging of the brain was performed without administration of intravenous contrast material. Individualized dose optimization techniques were used for this CT. COMPARISON: None. FINDINGS: Normal soft tissue structures. Normal calvarium. Normal size ventricles and extra-axial spaces for the patient's age. Normal white matter tracts of the cerebral hemispheres. Normal basal ganglia and thalami. Normal brainstem. Normal cerebellum. There is no intracranial hemorrhage. There are no findings of an acute ischemic infarction. Normal visualized paranasal sinuses. CT/Brain/Head without Contrast IMPRESSION: Normal unenhanced CT scan of the brain. Electronically Signed: Ja Mott MD at 21:25 EDT Tel , Service support , CC: Selvin VILLATORO; Kyra Reese MD School Psychologist Assistant: Signed BEDSIDE GLUCOSE Collected: 05/30/2018 Status: F Source: [place] 8:13 PM [facility] REPOSITORY TYPE CODE TESTS RESULT OUT OF REFERENCE UNITS RANGE LAB L501.080 70-110 mg/dL High BEDSIDE GLU 393 Result Comment: MANAGEMENT OF PATIENT CARE PER NURSING PROTOCOL Performed By: #### L501.080 #### [facility] Point of Care [address] [place] [address]. [place] [address] VENOUS BLOOD GAS Collected: 05/30/2018 Status: F Source: [place] 7:35 PM [facility] REPOSITORY TYPE CODE TESTS RESULT OUT OF RANGE REFERENCE UNITS LAB L9000.9990 Normal BLD GAS TYPE [place] LAB L9001.1000 Normal SITE OTHER LAB L9001.1050 O2 Normal Delivery Dev Room Air LAB L9001.1104 Normal Results To ED LAB L9001.1105 Normal Time Given 0 LAB L9002.1110 7.32-7.42 Normal VBGpH - I-STAT 7.39 LAB L9002.1212 41-51 mmHg Low VBG pCO2 - 38.0 ISTA LAB L9002.1310 25-40 mmHg High VBG PO2 I-STAT 56 LAB L9002.2300 22-26 mmol/L Normal VBG HCO3 ISTAT 23 LAB L9002.2400 -1.0-3.5 mmol/L Low VBG BE ISTAT -2 LAB L9002.2410 50-70 % High VBG SO2 ISTAT 88 LAB L9002.2415 23-33 mmol/L Normal VBG O2 CT 24 ISTAT Performed By: #### L9000.0810 #### [facility] Point of Care [address] [place], [place] [address] URINALYSIS, COMPLETE Collected: 05/30/2018 Status: F Source: [place] 7:30 PM [facility] REPOSITORY Order Comment: How was Urine Obtained? CLEAN CATCH TYPE CODE TESTS RESULT OUT OF RANGE REFERENCE UNITS LAB L400.3000 Yellow COLOR Normal Yellow LAB L400.3050 Clear Normal CLARITY Sl. Cloudy LAB L400.3200 Normal mg/dl High GLUCOSE, UR 1000 LAB L400.3300 Negative mg/dL Normal BILIRUBIN URINE Negative LAB L400.3400 Negative mg/dl Normal KETONE UR Negative LAB L400.3465 1.002-1.030 Normal SP.GR. DIPSTX 1.010 LAB L400.3550 5.0 - 8.0 pH UR Normal 6.0 LAB L400.3600 Negative mg/dl PROT Normal DIPSTX Negative LAB L400.3700 Normal mg/dl Normal UROBILI Normal LAB L400.3750 Negative Normal NITRITE UR Negative LAB L400.3780 Negative /ul Normal OCCULT BLOOD-UR Negative LAB L400.3800 Negative /ul High LEUK ESTERASE 100 LAB L400.4050 0-5 /hpf WBC Normal 5-10 SEEN LAB L400.4100 0-5 /hpf 0 Normal RBC-UA SEEN LAB L400.4150 5-10 /hpf SQUAM Normal EPI 0-5 SEEN LAB L400.4300 None Seen /hpf 0 Normal BACTERIA SEEN LAB L400.4350 <or=2+ /hpf 0 Normal MUCUS, URINE SEEN Performed By: #### L400.0001 #### [facility] [address] [place], [place], [id number] ACETONE SERUM Collected: 05/30/2018 Status: F Source: [place] 7:25 PM [facility] REPOSITORY TYPE CODE TESTS RESULT OUT OF RANGE REFERENCE UNITS LAB L501.6900 NEG Normal ACETONE SERUM NEGATIVE Performed By: #### L501.6900 #### [facility] [address] [place], [address] BASIC METABOLIC Collected: 05/30/2018 Status: F Source: [place] PROFILE (BMP) 7:25 PM [facility] REPOSITORY TYPE CODE TESTS RESULT OUT OF RANGE REFERENCE UNITS LAB L501.0100 74-106 mg/dL High alert GLU 518 Result Comment: CALLED [facility] WITH CRITICAL GLUC BY [facility] 05-30-18 AT 1955PM READ BACK BY SAME Glucose result greater than or equal to 200 mg/dL suggests DIABETES MELLITUS per A.D.A. criteria. Please note revised GLUCOSE reference range effective 2017. LAB L501.1000 7-18 mg/dL Normal BUN 8 LAB L501.1100 0.55-1.02 mg/dL Normal CREAT,SERUM 0.99 Result Comment: The validity of the calculated GFR AND GFRAA in patients over 70 years has not been determined. Clinical correlation is essential. LAB L501.1110 >60 mL/min Normal EST GFR 60 Result Comment: Non- GFR Calc LAB L501.1115 >60 mL/min Normal EST GFR - AA 72 Result Comment: GFR Calc LAB L501.1255 ml/min Normal Estimated CRCL 47.49 LAB L501.1300 10-20 RATIO Low BUN/CRE 8.1 LAB L501.2200 8.5-10 mg/dL Normal .1 CA 9.3 LAB L501.5300 136-14 mmol/L Low 5 NA 133 LAB L501.5600 3.5-5. mmol/L Normal 1 K 4.2 LAB L501.5900 98-107 mmol/L Normal CL 101 LAB L501.6100 21.0-3 mmol/L Normal 2.0 CO2 23.0 LAB L501.6200 5-15 Normal GAP 9 Performed By: #### L500.2500 #### [facility] [address] [place], [address] BASIC METABOLIC Collected: 05/30/2018 Status: F Source: [place] PROFILE (BMP) 7:25 PM [facility] REPOSITORY TYPE CODE TESTS RESULT OUT OF RANGE REFERENCE UNITS LAB L501.0100 74-106 mg/dL High alert GLU 491 Result Comment: SEE FOOTNOTE FOR C354 Glucose result greater than or equal to 200 mg/dL suggests DIABETES MELLITUS per A.D.A. criteria. Please note revised GLUCOSE reference range effective 2017. LAB L501.1000 7-18 mg/dL Normal BUN 9 LAB L501.1100 0.55-1.02 mg/dL Normal CREAT,SERUM 0.99 Result Comment: The validity of the calculated GFR AND GFRAA in patients over 70 years has not been determined. Clinical correlation is essential. LAB L501.1110 >60 mL/min Normal EST GFR 60 Result Comment: Non- GFR Calc LAB L501.1115 >60 mL/min Normal EST GFR - AA 73 Result Comment: GFR Calc LAB L501.1255 ml/min Normal Estimated CRCL 47.49 LAB L501.1300 10-20 RATIO Low BUN/CRE 9.1 LAB L501.2200 8.5-10 mg/dL Normal .1 CA 9.3 LAB L501.5300 136-14 mmol/L Low 5 NA 134 LAB L501.5600 3.5-5. mmol/L Normal 1 K 4.2 LAB L501.5900 98-107 mmol/L Normal CL 103 LAB L501.6100 21.0-3 mmol/L Normal 2.0 CO2 23.0 LAB L501.6200 5-15 Normal GAP 8 Performed By: #### L500.2500, L501.2300, L501.4010, L501.5200 #### [facility] [address] [place], [address] PHOSPHORUS Collected: 05/30/2018 Status: F Source: [place] 7:25 PM [facility] REPOSITORY TYPE CODE TESTS RESULT OUT OF RANGE REFERENCE UNITS LAB L501.2300 2.5-4.9 mg/dL Normal PHOS 3.8 Performed By: #### L500.2500, L501.2300, L501.4010, L501.5200 #### [facility] [address] [place], [address] TROPONIN-I Collected: 05/30/2018 Status: F Source: [place] 7:25 PM [facility] REPOSITORY TYPE CODE TESTS RESULT OUT OF RANGE REFERENCE UNITS LAB L501.4010 <0.045 ng/mL Normal < 0.015 TROPONIN-I Result Comment: TROPONIN-I EXPECTED VALUES <0.045 Negative 0.045 - 0.590 Consistent with Cardiac Damage > OR = 0.600 Critical Value Not every elevated troponin is indicative of VT. These values should be used with clinical judgement in examining the patient's clinical picture for diagnosis. To establish a diagnosis of VT versus myocardial injury, there must be a demonstrated rise and/or fall in the troponin values, in addition to ischemic symptoms, EKG changes, new regional wall motion abnormality, and/or angiographical evidence. PLEASE NOTE: REFERENCE RANGES EDITED 18 Performed By: #### L500.2500, L501.2300, L501.4010, L501.5200 #### [facility] [address] [place], [address] MAGNESIUM Collected: 05/30/2018 Status: F Source: [place] 7:25 PM [facility] REPOSITORY TYPE CODE TESTS RESULT OUT OF RANGE REFERENCE UNITS LAB L501.5200 1.6-2.6 mg/dL Normal MG 2.0 Performed By: #### L500.2500, L501.2300, L501.4010, L501.5200 #### [facility] [address] [place], [address] CBC W/DIFF, AUTOMATED Collected: 05/30/2018 Status: F Source: [place] 7:25 PM [facility] REPOSITORY TYPE CODE TESTS RESULT OUT OF RANGE REFERENCE UNITS LAB L100.1000 4.4-11.0 K/mm3 Normal WBC 6.0 LAB L100.1200 4.2-5.4 M/mm3 Low RBC 3.94 LAB L100.1300 12.0-15.0 g/dl Normal HGB 12.3 LAB L100.1400 37-47 % Low HCT 36.1 LAB L100.1500 81-99 fL Normal MCV 91.6 LAB L100.1600 27.0-32.0 pg Normal MCH 31.2 LAB L100.1700 32-36 g/gl Normal MCHC 34.1 LAB L100.1810 11.6-14.6 % Normal RDW CV 12.8 LAB L100.1820 35.1-43.9 fl Normal RDW SD 43.0 LAB L100.1900 150-450 K/mm3 Normal PLT 241 LAB L100.2000 6.2-12.0 fl Normal MPV 11.1 LAB L100.2100 47-70 % Normal NEUT% 48.6 LAB L100.2200 19-41 % Normal LY% 39.6 LAB L100.2300 0-10 % Normal MONO% 8.0 LAB L100.2400 0-5 % Normal EO% 3.0 LAB L100.2500 0-1 % Normal BASO% 0.5 LAB L100.2550 0.0-0.9 % Normal IM GRAN % 0.300 Result Comment: IG% - Immature Granulocytes (promyelocytes, myelocytes and metamyelocytes) > 1% indicates that a LEFT SHIFT is Present. LAB L100.2620 2.0-7.7 X10 3/uL Normal Absolute Neut 2.9 LAB L100.2720 0.83-4.51 X10 3/ul Normal Absolute Lymph 2.37 Performed By: #### L100.0100 #### [facility] [address] [place], [place], [id number] BNP,B-TYPE NATRIURETIC Collected: 05/30/2018 Status: F Source: [place]PTIDE 7:25 PM [facility] REPOSITORY TYPE CODE TESTS RESULT OUT OF RANGE REFERENCE UNITS LAB L503.6620 0-100 pg/mL Normal B-TYPE 35.0 HUNTER PEP Performed By: #### L503.6620 #### [facility] [address] [place], [place], [id number] BEDSIDE GLUCOSE Collected: 05/30/2018 Status: F Source: [place] 6:52 PM [facility] REPOSITORY TYPE CODE TESTS RESULT OUT OF REFERENCE UNITS RANGE LAB L501.080 70-110 mg/dL High alert BEDSIDE GLU > 500 Result Comment: Dr Conner Followed MANAGEMENT OF PATIENT CARE PER NURSING PROTOCOL Performed By: #### L501.080 #### [facility] Point of Care [address] [place] [address] EMERGENCY DEPARTMENT Observed: 05/27/2018 Status: F Source: [place] SUMMARY 1:01 AM [facility] REPOSITORY [facility] Medical Records Department [address] [place] [address] Emergency Department Summary 05/26/18 1800 MR#: [id number] Acct: [id number] Name: DANIELLE MARY Rep #: [id number] : 1955 62 From: Sammy Pedraza MD PCP: Selvin Vega Status: DEP ER - ER Visit Summary Date of Service: 05/26/18 Chief Complaint: Back pain History of Present Illness: The patient is a 62 F who goes to the [facility]. She reports that she has low back pain began 3 days ago. She states is a dull pain is 1010 at worst 9 out of 10 currently. Is worsened by movement relieved by remaining still. She denies any recent trauma. No fall, MVA, or change in activity. There is no relation to her legs. No problems with her bowels or her bladder. No numbness or weakness in her legs. Patient reports that she saw her primary care physician was diagnosed with a UTI. She was placed on Macrodantin and took the first dose this morning. She is vomited 3 times since this. No blood or emesis. No diarrhea. Last bowel was today. She denies any melena or hematochezia. She denies dysuria, but has had frequency. Physical Examination: Vitals: Stable. Afebrile. General: A AND O x 3. NAD. Cardiovascular exam: Regular rate and rhythm, no murmur, rub or gallop. Respiratory exam: Clear to auscultation bilaterally. No wheezes or stridor. Abdominal exam: Soft, nontender, nondistended, normal bowel sounds. No peritoneal signs. Back: Diffuse moderate tenderness to palpation over the lumbar spine and the paraspinous musculature in the lumbar region. No point tenderness. Negative straight leg bilaterally. 5/5 DF, PF, EHL bilaterally. Normal sensation to light touch throughout. Extremity: No clubbing, cyanosis, or edema. Test Results: CBC is normal. UA is negative. Chem-7 is remarkable for a glucose of 563 and a creatinine 1.03. Emergency Department Course and Treatment: An OARRS report was obtained which was negative. She had an IV placed. She was given Zofran and morphine IV. She is resting comfortably. I reviewed the patient's prior labs. Her last hemoglobin A1c was March 15. At that time it was 12.9. This is the lowest it has been this year. She represents an average blood sugar of 240-347. I discussed this with the patient and she assures me that she never misses my medications. States that she took 23 units of Lantus this morning and is scheduled to take 41 units tonight. She had her initial dose of metformin 1000 mg this morning. She is scheduled to take a second dose this evening. Patient is given 10 units of lispro subcu here. She is resting comfortably. Treatment Plan: Patient will be discharged with 12 Edmonds and Zofran. Instructed to follow-up her primary care physician as soon as possible for further evaluation and treatment of her diabetes. Return to the emergency department for any worsening symptoms. Disposition: To home in improved and stable condition. Impression: 1. Back pain, acute. 2. Hyperglycemia with [id number]-[id number] diabetes mellitus and noncompliance. This note was generated with Avner[employer] dictation software. It may contain incorrect words, spelling, and punctuation that were not noted in review of the chart prior to signing ED Disposition - Plan for ED Patient: Chief Complaint: Back Instructions: ED Neck Back Pain General, ED Hyperglycemia Diabetic Prescriptions: Oxycodone HCl/Acetaminophen [Percocet 5/325] 1 tablet PO Q6H PRN PRN 3 Days #12 tablet PRN Reason: Pain Ondansetron [Zofran Odt] 4 mg PO Q8H PRN PRN #10 tablet PRN Reason: Nausea Referrals: Selvin Sifuentes, NURSE ORTHOPAEDIC-C [Primary Care Provider] - As soon as possible What to do if you have Problems For any increased pain, shortness of breath, bleeding, nausea or vomiting, chest pain, or any unexpected problems, contact your Primary Care Provider. Call [facility] ([phone]) or report to the closest Emergency Room. Call 911 if necessary. 05/27/18 0101 <Electronically signed by Sammy Pedraza MD> Date Sammy Pedraza MD Cosigner Signature (If Indicated): Date CC: Selvin VILLATORO CBC W/DIFF, AUTOMATED Collected: 05/26/2018 Status: F Source: [place] 6:18 PM [facility] REPOSITORY TYPE CODE TESTS RESULT OUT OF RANGE REFERENCE UNITS LAB L100.1000 4.4-11.0 K/mm3 Normal WBC 6.3 LAB L100.1200 4.2-5.4 M/mm3 Normal RBC 4.27 LAB L100.1300 12.0-15.0 g/dl Normal HGB 13.5 LAB L100.1400 37-47 % Normal HCT 39.5 LAB L100.1500 81-99 fL Normal MCV 92.5 LAB L100.1600 27.0-32.0 pg Normal MCH 31.6 LAB L100.1700 32-36 g/gl Normal MCHC 34.2 LAB L100.1810 11.6-14.6 % Normal RDW CV 12.8 LAB L100.1820 35.1-43.9 fl Normal RDW SD 42.6 LAB L100.1900 150-450 K/mm3 Normal PLT 255 LAB L100.2000 6.2-12.0 fl Normal MPV 10.9 LAB L100.2100 47-70 % Normal NEUT% 55.9 LAB L100.2200 19-41 % Normal LY% 34.5 LAB L100.2300 0-10 % Normal MONO% 6.3 LAB L100.2400 0-5 % Normal EO% 2.8 LAB L100.2500 0-1 % Normal BASO% 0.3 LAB L100.2550 0.0-0.9 % Normal IM GRAN % 0.200 Result Comment: IG% - Immature Granulocytes (promyelocytes, myelocytes and metamyelocytes) > 1% indicates that a LEFT SHIFT is Present. LAB L100.2620 2.0-7.7 X10 3/uL Normal Absolute Neut 3.5 LAB L100.2720 0.83-4.51 X10 3/ul Normal Absolute Lymph 2.18 Performed By: #### L100.0100 #### [facility] [address] [place], [place], [address] BASIC METABOLIC Collected: 05/26/2018 Status: F Source: [place] PROFILE (BMP) 6:18 PM [facility] REPOSITORY TYPE CODE TESTS RESULT OUT OF RANGE REFERENCE UNITS LAB L501.0100 74-106 mg/dL High alert GLU 563 Result Comment: Critical Result(s) Called Shana ESTRADA at: 18:49:41 05/26/2018 by: FREDDY STOKES Glucose result greater than or equal to 200 mg/dL suggests DIABETES MELLITUS per A.D.A. criteria. Please note revised GLUCOSE reference range effective 2017. LAB L501.1000 7-18 mg/dL Normal BUN 10 LAB L501.1100 0.55-1.02 mg/dL High CREAT,SERUM 1.03 Result Comment: The validity of the calculated GFR AND GFRAA in patients over 70 years has not been determined. Clinical correlation is essential. LAB L501.1110 >60 mL/min Low EST GFR 57 Result Comment: Non- GFR Calc LAB L501.1115 >60 mL/min Normal EST GFR - AA 69 Result Comment: GFR Calc LAB L501.1255 ml/min Normal Estimated CRCL 45.65 LAB L501.1300 10-20 RATIO Low BUN/CRE 9.7 LAB L501.2200 8.5-10 mg/dL Normal .1 CA 9.0 LAB L501.5300 136-14 mmol/L Normal 5 NA 136 LAB L501.5600 3.5-5. mmol/L Normal 1 K 4.3 Result Comment: Slight Hemolysis, Result may be falsely increased. LAB L501.5900 98-107 mmol/L Normal CL 103 LAB L501.6100 21.0-32.0 mmol/L Normal CO2 25.0 LAB L501.6200 5-15 Normal 8 GAP Performed By: #### L500.2500 #### [facility] [address] [place], [address] URINALYSIS, COMPLETE Collected: 05/26/2018 Status: F Source: [place] 6:12 PM [facility] REPOSITORY Order Comment: Order Date: 05/26/18 How was Urine Obtained? CLEAN CATCH TYPE CODE TESTS RESULT OUT OF RANGE REFERENCE UNITS LAB L400.3000 Yellow COLOR Normal Yellow LAB L400.3050 Clear Normal CLARITY Clear LAB L400.3200 Normal mg/dl High GLUCOSE, UR 1000 LAB L400.3300 Negative mg/dL Normal BILIRUBIN URINE Negative LAB L400.3400 Negative mg/dl Normal KETONE UR Negative LAB L400.3465 1.002-1.030 Normal SP.GR. DIPSTX 1.010 LAB L400.3550 5.0 - 8.0 pH UR Normal 7.0 LAB L400.3600 Negative mg/dl PROT Normal DIPSTX Negative LAB L400.3700 Normal mg/dl Normal UROBILI Normal LAB L400.3750 Negative Normal NITRITE UR Negative LAB L400.3780 Negative /ul Normal OCCULT BLOOD-UR Negative LAB L400.3800 Negative /ul High LEUK ESTERASE 100 LAB L400.4050 0-5 /hpf WBC Normal 0-5 SEEN LAB L400.4100 0-5 /hpf Normal RBC-UA 0-5 SEEN LAB L400.4150 5-10 /hpf SQUAM Normal EPI 0-5 SEEN LAB L400.4300 None Seen /hpf 0 Normal BACTERIA SEEN LAB L400.4350 <or=2+ /hpf 0 Normal MUCUS, URINE SEEN Performed By: #### L400.0001 #### [facility] [address] [facility] [place], [address] EMERGENCY DEPARTMENT Observed: 05/08/2018 Status: F Source: [place] SUMMARY 12:25 AM [facility] REPOSITORY [facility] Medical Records Department [address] [place] [address] Emergency Department Summary 05/01/18 1607 MR#: [id number] Acct: [id number] Name: DANIELLE MARY Rep #: [id number] : 1955 62 From: Sam Miller DO PCP: Selvin Vega Status: DEP ER - ER Visit Summary Date of Service: 05/01/18 Chief Complaint: Chest pain History of Present Illness: The patient is a 62 F who states that 1130 today she was weed eating when she had the development of chest heaviness going into her left arm. She has had these symptoms numerous times before. This time the patient notes tingling in the hand. Patient has a history of coronary artery disease having had stents to her LAD. She has a history of diabetes hypertension high cholesterol. She is follows with Dr. Quesada as an outpatient. September 2017 she had a heart cath that showed open LAD stents and nonobstructive ostial diagonal disease. The patient has had several hospital admissions since that time in which ACS has been ruled out. The patient states she vomited. She states she took a nitroglycerin and has a headache. Physical Examination: Afebrile vital signs are stable Gen: Well-nourished well-developed Head: Normocephalic atraumatic Eyes: Perrl EOMI ENT: TMs clear no rhinorrhea moist mucous membranes Neck: Supple no lymphadenopathy no JVD nontender CVS: Regular rate rhythm no murmurs normal S1-S2 Respiratory: No distress clear to auscultation bilaterally chest nontender Abdomen: Soft nontender nondistended normal bowel sounds no masses Back: Nontender Extremity: Nontender no edema Skin: Normal color no rash Neuro: alert orientated 3 CN II-XII intact normal strength sensation reflexes gait cerebellar Psych: Patient is very anxious and tearful Test Results: EKG shows a normal sinus is unchanged from prior. CBC chemistries and troponin were obtained. These were negative. Delta troponin will be obtained. Emergency Department Course and Treatment: DANDY score is 3. Delta troponin will be performed. If this is negative she will be discharged home to follow- up in the office. If it is positive we will admit her. I do suspect that this is not cardiac. The patient was weed eating at the time and I do wonder if this is musculoskeletal. Impression: 1. Chest pain This note was generated with Avnera dictation software. It may contain incorrect words, spelling, and punctuation that were not noted in review of the chart prior to signing <Sam Miller - Last Filed: 05/01/18 17:24> - ER Visit Summary It was signed out to me by Dr. Miller to follow-up on repeat troponin. Repeat troponin is negative. It was felt if this was negative the patient could be discharged home. This note was generated with Avner[employer] dictation software. It may contain incorrect words, spelling, and punctuation that were not noted in review of the chart prior to signing <Cholo Scott - Last Filed: 05/01/18 18:35> ED Disposition <Sam Miller - Last Filed: 05/01/18 17:24> <Cholo Scott - Last Filed: 05/01/18 18:35> - Plan for ED Patient: Disposition: Home or Assisted Living Chief Complaint: Chest Pain Instructions: ED Chest Pain Atypical Unkn Cause Referrals: Sam Quesada MD [STAFF PHYSICIAN] - (call to arrange follow up) What to do if you have Problems For any increased pain, shortness of breath, bleeding, nausea or vomiting, chest pain, or any unexpected problems, contact your Primary Care Provider. Call [facility] ([phone]) or report to the closest Emergency Room. Call 911 if necessary. 05/08/18 0025 <Electronically signed by Sam Miller DO> Date Sam Miller DO 05/01/18 1835<Electronically signed by Cholo Scott MD> Cosigner Signature (If Indicated): Date Cholo Scott MD CC: Selvin VILLATORO 12 LEAD ELECTROCARDIOGRAM Observed: 05/05/2018 Status: F Source: [place] 1:09 PM [facility] REPOSITORY [facility] Cardiovascular Services [address] [place] [address] 12 Lead EKG 05/01/18 1329 MR#: [id number] Acct: [id number] Name: DANIELLE MARY Rep #: [id number] : 1955 62 From: Kiran Fitzgerald MD Attending Dr: Status: DEP ER Ordering Dr: Sam Miller DO Date: 05/01/18 Location: ED Sex: F C Admitted: Test Reason : CP Blood Pressure : / mmHG Vent. Rate : 077 BPM Atrial Rate : 077 BPM P-R Int : 130 ms QRS Dur : 070 ms QT Int : 390 ms P-R-T Axes : 078 038 031 degrees QTc Int : 441 ms Normal sinus rhythm Normal ECG Confirmed by HENRY BARFIELD, KIRAN ([id number]), web content editor ELI HASKINS ([id number]) on 05/05/2018 1:09:18 PM Referred By: ASHWIN Confirmed By:KIRAN FITZGERALD MD 05/05/18 1309 Date Kiran Fitzgerald MD CC: Sam Miller DO; Selvin VILLATORO Signed TROPONIN-I Collected: 05/01/2018 Status: F Source: [place] 5:50 PM [facility] REPOSITORY Order Comment: 'TROP' Serial specimen #1, #2 or #3: 2 TYPE CODE TESTS RESULT OUT OF RANGE REFERENCE UNITS LAB L501.4010 <0.045 ng/mL Normal < 0.015 TROPONIN-I Result Comment: TROPONIN-I EXPECTED VALUES <0.045 Negative 0.045 - 0.590 Consistent with Cardiac Damage > OR = 0.600 Critical Value Not every elevated troponin is indicative of VT. These values should be used with clinical judgement in examining the patient's clinical picture for diagnosis. To establish a diagnosis of VT versus myocardial injury, there must be a demonstrated rise and/or fall in the troponin values, in addition to ischemic symptoms, EKG changes, new regional wall motion abnormality, and/or angiographical evidence. PLEASE NOTE: REFERENCE RANGES EDITED 18 Performed By: #### L501.4010 #### [facility] [place], [address] CBC W/DIFF, AUTOMATED Collected: 05/01/2018 Status: F Source: [place] 3:36 PM [facility] REPOSITORY TYPE CODE TESTS RESULT OUT OF RANGE REFERENCE UNITS LAB L100.1000 4.4-11.0 K/mm3 Normal WBC 7.5 LAB L100.1200 4.2-5.4 M/mm3 Low RBC 4.07 LAB L100.1300 12.0-15.0 g/dl Normal HGB 12.6 LAB L100.1400 37-47 % Low HCT 36.0 LAB L100.1500 81-99 fL Normal MCV 88.5 LAB L100.1600 27.0-32.0 pg Normal MCH 31.0 LAB L100.1700 32-36 g/gl Normal MCHC 35.0 LAB L100.1810 11.6-14.6 % Normal RDW CV 12.3 LAB L100.1820 35.1-43.9 fl Normal RDW SD 39.3 LAB L100.1900 150-450 K/mm3 Normal PLT 230 LAB L100.2000 6.2-12.0 fl Normal MPV 11.2 LAB L100.2100 47-70 % Normal NEUT% 52.1 LAB L100.2200 19-41 % Normal LY% 38.3 LAB L100.2300 0-10 % Normal MONO% 6.0 LAB L100.2400 0-5 % Normal EO% 2.9 LAB L100.2500 0-1 % Normal BASO% 0.4 LAB L100.2550 0.0-0.9 % Normal IM GRAN % 0.300 Result Comment: IG% - Immature Granulocytes (promyelocytes, myelocytes and metamyelocytes) > 1% indicates that a LEFT SHIFT is Present. LAB L100.2620 2.0-7.7 X10 3/uL Normal Absolute Neut 3.9 LAB L100.2720 0.83-4.51 X10 3/ul Normal Absolute Lymph 2.87 Performed By: #### L100.0100 #### [facility] [address] [place], [place], [address] BASIC METABOLIC Collected: 05/01/2018 Status: F Source: [place] PROFILE ([facility]) 3:36 PM [facility] REPOSITORY TYPE CODE TESTS RESULT OUT OF RANGE REFERENCE UNITS LAB L501.0100 74-106 mg/dL High GLU 224 Result Comment: Glucose result greater than or equal to 200 mg/dL suggests DIABETES MELLITUS per A.D.A. criteria. Please note revised GLUCOSE reference range effective 2017. LAB L501.1000 7-18 mg/dL Normal BUN 15 LAB L501.1100 0.55-1.02 mg/dL Normal CREAT,SERUM 0.77 Result Comment: The validity of the calculated GFR AND GFRAA in patients over 70 years has not been determined. Clinical correlation is essential. LAB L501.1110 >60 mL/min Normal EST GFR 80 Result Comment: Non- GFR Calc LAB L501.1115 >60 mL/min Normal EST GFR - AA 97 Result Comment: GFR Calc LAB L501.1255 ml/min Normal Estimated CRCL 61.06 LAB L501.1300 10-20 RATIO Normal BUN/CRE 19.5 LAB L501.2200 8.5-10 mg/dL Normal .1 CA 9.7 LAB L501.5300 136-14 mmol/L Normal 5 NA 139 LAB L501.5600 3.5-5. mmol/L Normal 1 K 4.3 Result Comment: Moderate Hemolysis, Result may be falsely increased. LAB L501.5900 98-107 mmol/L Normal CL 104 LAB L501.6100 21.0-32.0 mmol/L Normal CO2 28.0 LAB L501.6200 5-15 Normal 7 GAP Performed By: #### L500.2500, L501.4010 #### [facility] [address] [place], [address] TROPONIN-I Collected: 05/01/2018 Status: F Source: [place] 3:36 PM [facility] REPOSITORY TYPE CODE TESTS RESULT OUT OF RANGE REFERENCE UNITS LAB L501.4010 <0.045 ng/mL Normal < 0.015 TROPONIN-I Result Comment: TROPONIN-I EXPECTED VALUES <0.045 Negative 0.045 - 0.590 Consistent with Cardiac Damage > OR = 0.600 Critical Value Not every elevated troponin is indicative of VT. These values should be used with clinical judgement in examining the patient's clinical picture for diagnosis. To establish a diagnosis of VT versus myocardial injury, there must be a demonstrated rise and/or fall in the troponin values, in addition to ischemic symptoms, EKG changes, new regional wall motion abnormality, and/or angiographical evidence. PLEASE NOTE: REFERENCE RANGES EDITED 18 Performed By: #### L500.2500, L501.4010 #### [facility] [address] [place], [address] CHEST 1 VIEW Observed: 05/01/2018 Status: F Source: [place] (PORTABLE) 2:45 PM [facility] REPOSITORY [facility] Imaging Services [address] [place] [address] Chest 1 View (Portable) MR#: [id number] Acct: [id number] Name: DANIELLE MARY Rep #: [id number] : 1955 F 62 From: Ja Mott MD PCP: Selvin Vega Status: PRE ER Study: Chest 1 View (Portable) Date of Exam: 05/01/18 Exam# [id number] Ordering Dr: Sam Miller DO STUDY: X-RAY CHEST REASON FOR EXAM: Female, 62 years old. Chest pain TECHNIQUE: Single AP portable view of the chest. COMPARISON: None. FINDINGS: The lungs are clear and expanded. There is no demonstrated pleural abnormality. Normal size heart. Normal mediastinum and jovan. Normal visualized pulmonary arteries. Normal visualized aortic arch and descending thoracic aorta. Normal visualized thoracic spine. Normal visualized ribs, clavicles, and shoulders. There is no demonstrated abnormality of the visualized soft tissue structures of the upper abdomen. RAD/Chest 1 View (Portable) IMPRESSION: Normal x-ray examination of the chest. Electronically Signed: Ja Mott MD at 15:00 EDT Tel , Service support , CC: Sam Miller DO; Selvin VILLATORO School Psychologist Assistant: Signed EMERGENCY DEPARTMENT Observed: 04/17/2018 Status: F Source: [place] SUMMARY 2:21 AM [facility] REPOSITORY [facility] Medical Records Department [address] [place] [address] Emergency Department Summary 04/16/18 2344 MR#: [id number] Acct: [id number] Name: DANIELLE MARY Rep #: [id number] : 1955 62 From: Sammy Pedraza MD PCP: Selvin Vega Status: DEP ER - ER Visit Summary Date of Service: 04/16/18 Chief Complaint: Abscess History of Present Illness: The patient is a 62 F who goes the [employer] [facility] [employer]. She reports that she has an abscess in the left groin that began yesterday. She has sharp pains 1010 worst 910 currently. Is worsened by walking in her underwear rubbing. She relieved by nothing. Physical Examination: Vitals: Stable. Afebrile. General: Well-nourished and well-developed. Head: Normocephalic atraumatic. Neck: Supple, no lymphadenopathy. No JVD. Nontender. Cardiovascular: Regular rate and rhythm. No murmurs. Respiratory: No respiratory distress. Clear to auscultation bilaterally. Abdominal: Soft, nontender, nondistended, normal bowel sounds. No guarding, rebound, or peritoneal signs. Back: Nontender. Extremities: Nontender, no edema. Skin: 1 cm sebaceous cyst the proximal medial thigh on the left. There is no surrounding in the erythema or induration. Neurologic: Alert and oriented 3. Cranial nerves II through XII are intact. Normal strength and sensation. Psych: Normal affect. Emergency Department Course and Treatment: Patient was given a milligram of Dilaudid IM. She had a 9 the performed. She tolerated this well. Treatment Plan: Patient be discharged instructions to follow- up with her primary care physician as needed. Disposition: To home in improved and stable condition. Impression: 1. Sebaceous cyst left thigh. 2. I AND D. Procedure Note: Abscess was cleansed with chlorhexidine soap. Anesthetized with 1% lidocaine without epinephrine. An incision was made with an 11 scalpel blade. A very small amount of pus drained. The wall of sebaceous cyst was completely removed. She tolerated this well. This note was generated with newScaleation software. It may contain incorrect words, spelling, and punctuation that were not noted in review of the chart prior to signing ED Disposition - Plan for ED Patient: Disposition: Home or Assisted Living Chief Complaint: Abscess Instructions: ED Cyst Sebaceous Infec IandD Referrals: Selvin Sifuentes, NURSE ORTHOPAEDIC-C [Primary Care Provider] - As Needed What to do if you have Problems For any increased pain, shortness of breath, bleeding, nausea or vomiting, chest pain, or any unexpected problems, contact your Primary Care Provider. Call [facility] ([phone]) or report to the closest Emergency Room. Call 911 if necessary. 04/17/18 0221 <Electronically signed by Sammy Pedraza MD> Date Sammy Pedraza MD Cosigner Signature (If Indicated): Date CC: Selvin VILLATORO STRESS TEST ECHO W/O Observed: 03/29/2018 Status: F Source: [place] CONTRAST 3:54 PM [facility] REPOSITORY [facility] Cardiovascular Services [address] [place] [address] Stress Test Echo w/o Contrast MR#: [id number] Acct: [id number] Name: DANIELLE MARY Rep #: [id number] : 1955 62 From: Sam Quesada MD Primary Care: Selvin Vega Status: DIS WU Ordering Dr: Sangita Issa Sex: F C Reason For Study: CHEST PAIN Stress Results Protocol: Modified Richy Protocol Maximum Predicted HR: 156 bpm Target HR: 133 bpm% Maximum Pred icted HR: 65 % DurationHeart Rate Stage (mm:ss) (bpm) BP BASELINE 74 115/66 STAGE 1 3:00 92 128/60 STAGE 2 3:00 10 1 132/60 RECOVERY 76 108/54 Stress Duration: 6:00 mm:ss Maximum Stress HR: 101 bpm Baseline Echocardiogram Findings The estimated ejection fraction is 65 %. Stress Echo Wall motion Data Resting WMIntermediate WMStress WM Resting Wall Motion Wall Motion Stress No regional wall motion No regional wall motion abnormalities noted. abnormalities noted. EKG Data The baseline ECG displays normal sinus rhythm. NSR, None. Patient Safety Reason for termination: Dyspnea, leg pain. Interpretation Summary 1) Normal Adequate Treadmill echo by rate pressure product 2) No anginal symptoms 3) Normal BP response to exercise 4) Poor exercise capacity for age 5) Final LVEF=85% The estimated ejection fraction is 65 %. Ordering Physician: Buck Naylor DO Referring Physician: Buck Naylor DO Performed By: Dany Rodriguez RCS 03/29/18 1553 Date Sam Quesada MD CC: Sangita Issa; Selvin VILLATORO Date Dictated: 03/16/1823 Date Transcribed: 03/29/18 155 School Psychologist Assistant: Signed DOWNTIME REPORT Observed: 03/29/2018 Status: F Source: [place] 1:33 PM [facility] REPOSITORY [facility] Medical Records Department [address] [place] [address] Downtime Report MR#: [id number] Acct: [id number] Name: DANIELLE MARY Rep #: [id number] : 1955 62 From: Claudio Haskins MD PCP: Selvin Vega Status: DIS WU This patient was seen during an EMR downtime March 13, 2018 - March 20, 2018. This patient may have a combination of paper and electronic documentation or all paper documentation. All documentation is viewable within the e-chart portion of [facility] for each patient visit. 12 LEAD ELECTROCARDIOGRAM Observed: 03/27/2018 Status: F Source: [place] 8:56 AM [facility] REPOSITORY [facility] Cardiovascular Services [address] [place] [address] 12 Lead EKG 03/16/18 0547 MR#: [id number] Acct: [id number] Name: DANIELLE MARY Rep #: [id number] : 1955 62 From: Kiran Fitzgerald MD Attending Dr: Sangita Issa Status: DIS WU Ordering Dr: Sangita Issa Date: 03/15/18 Location: [facility] Sex: F C Admitted: 03/14/18 Test Reason : AM EKG Blood Pressure : / mmHG Vent. Rate : 072 BPM Atrial Rate : 072 BPM P-R Int : 148 ms QRS Dur : 086 ms QT Int : 458 ms P-R-T Axes : 067 039 045 degrees QTc Int : 501 ms Normal sinus rhythm Prolonged QT Abnormal ECG Confirmed by HENRY BARFIELD, KIRAN ([id number]), web content editor ELI HASKINS ([id number]) on 03/24/2018 1:56:14 PM Referred By: DR ISSA Confirmed By:KIRAN FITZGERALD MD 03/24/18 1356 Date Kiran Fitzgerald MD CC: Sangita Issa; Selvin VILLATORO Signed 12 LEAD ELECTROCARDIOGRAM Observed: 03/27/2018 Status: F Source: [place] 8:56 AM [facility] REPOSITORY [facility] Cardiovascular Services [address] [place] [address] 12 Lead EKG 03/15/18 0027 MR#: [id number] Acct: [id number] Name: NIKITA MARYDY Ajay Rep #: [id number] : 1955 62 From: Kiran Fitzgerald MD Attending Dr: Sangita Issa Status: DIS WU Ordering Dr: Sangita Issa Date: 03/16/18 Location: [facility] Sex: F C Admitted: 03/14/18 Test Reason : CP ADMIT Blood Pressure : / mmHG Vent. Rate : 069 BPM Atrial Rate : 069 BPM P-R Int : 150 ms QRS Dur : 086 ms QT Int : 444 ms P-R-T Axes : 044 027 040 degrees QTc Int : 475 ms Sinus rhythm with Premature atrial complexes Otherwise normal ECG Confirmed by KIRAN FITZGERALD MD ([id number]), web content editor ELI HASKINS ([id number]) on 03/24/2018 1:58:29 PM Referred By: DR ISSA Confirmed By:KIRAN FITZGERALD MD 03/24/18 1356 Date Kiran Fitzgerald MD CC: Amari VILLATORO Signed 12 LEAD ELECTROCARDIOGRAM Observed: 03/27/2018 Status: F Source: LI 8:46 AM [facility] REPOSITORY [facility] Cardiovascular Services [address] [place] [address] 12 Lead EKG 03/14/18 2240 MR#: [id number] Acct: [id number] Name: DANIELLE MARY Rep #: [id number] : 1955 62 From: Charlie Hernandez MD Attending Dr: Sangita Issa Status: DIS WU Ordering Dr: Sangita Issa Date: 03/14/18 Location: [facility] Sex: F C Admitted: 03/14/18 Test Reason : REPEAT Blood Pressure : / mmHG Vent. Rate : 070 BPM Atrial Rate : 070 BPM P-R Int : 160 ms QRS Dur : 082 ms QT Int : 442 ms P-R-T Axes : 046 018 030 degrees QTc Int : 477 ms Normal sinus rhythm Normal ECG Confirmed by CHARLIE HERNANDEZ MD ([id number]), web content editor ELI HASKINS ([id number]) on 03/22/2018 6:19:22 PM Referred By: DEDE Confirmed By:CHARLIE HERNANDEZ MD 03/22/18 0470 Date Charlie Hernandez MD CC: Sangita VILLATORO Signed 12 LEAD ELECTROCARDIOGRAM Observed: 03/27/2018 Status: F Source: LI 8:46 AM [facility] Cardiovascular Services [address] [place] [address] 12 Lead EKG 03/14/181956 MR#: [id number] Acct: [id number] Name: DANIELLE MARY Rep #: [id number] : 1955 62 From: Charlie Hernandez MD Attending Dr: Sangita Issa Status: DIS WU Ordering Dr: Sangita Issa Date: 03/14/18 Location: [facility] Sex: F C Admitted: 03/14/18 Test Reason : CP Blood Pressure : / mmHG Vent. Rate : 080 BPM Atrial Rate : 080 BPM P-R Int : 148 ms QRS Dur : 068 ms QT Int : 406 ms P-R-T Axes : 045 030 020 degrees QTc Int : 468 ms Normal sinus rhythm Nonspecific ST abnormality Abnormal ECG Confirmed by CHARLIE HERNANDEZ MD ([id number]), web content editor ELI HASKINS ([id number]) on 03/22/2018 6:19:42 PM Referred By: AIDEN Confirmed By:CHARLIE HERNANDEZ MD 03/22/181818 Date Charlie Hernandez MD CC: Sangita Issa; Selvin VILLATORO Signed DISCHARGE INSTRUCTION Observed: 03/26/2018 Status: F Source: LI 3:18 PM [facility] Medical Records Department [address] [place] [address] Discharge Instruction 03/26/181516 MR#: [id number] Acct: [id number] Name: DANIELLE MARY Rep #: [id number] : 1955 62 From: Juarez Brody MD PCP: Selvin Vega Status: REG ER ED Disposition - Plan for ED Patient: Disposition: Home or Assisted Living Chief Complaint: Hypoglycemia Instructions: ED Diabetes Hypoglycemia Insulin React Prescriptions: proMETHazine tablet [Phenergan] 25 mg PO Q6H PRN PRN #10 tab PRN Reason: Nausea Referrals: Swihart,Selvin, [facility] [Primary Care Provider] - What to do if you have Problems For any increased pain, shortness of breath, bleeding, nausea or vomiting, chest pain, or any unexpected problems, contact your Primary Care Provider. Call [facility] ([phone]) or report to the closest Emergency Room. Call 911 if necessary. 03/26/18 1518 <Electronically signed by Juarez Brody MD> Date Juarez Brody MD Cosigner Signature (If Indicated): Date CC: Selvin VILLATORO EMERGENCY DEPARTMENT Observed: 03/26/2018 Status: F Source: [place] SUMMARY 3:17 PM [facility] REPOSITORY [facility] Medical Records Department [address] [place] [address] Emergency Department Summary 03/26/18 1322 MR#: [id number] Acct: [id number] Name: DANIELLE MARY Rep #: [id number] : 1955 62 From: Juarez Brody MD PCP: Selvin Vega Status: REG ER - ER Visit Summary Date of Service: 03/26/18 Chief Complaint: Low blood sugar History of Present Illness: The patient is a 62 F who presents with hypoglycemia. [facility] and her blood sugar was 59. At that time she had a bologna and cheese sandwich and had potato salad and cookies. She still did not feel well so she came in. Her blood sugar was 15 here. She took her normal 43 units of Lantus last night and 34 units of Lantus this morning. She does not take any other insulin medications. Currently she feels nauseous. Physical Examination: Vital signs reviewed. HEENT exam unremarkable. Heart is regular rate and rhythm without murmurs. Lungs are clear to auscultation. Abdomen is soft and nontender. Extremities reveal no edema. Skin exam normal. Neurologic exam normal. Test Results: Blood sugar was 15 Emergency Department Course and Treatment: Patient was given 1 amp of D50 IV. Patient felt better after this but felt nauseous. She was given Zofran, and then Phenergan. Repeat blood sugar was 150 in the 93. She is able to tolerate p.o. now. She drank a soda. She wants to go home. I will give her Phenergan for nausea. She will continue to ingest some sugary fluids at home and will follow up with her doctor Treatment Plan: Disposition: Discharge Impression: Hypoglycemia This note was generated with [employer] dictation software. It may contain incorrect words, spelling, and punctuation that were not noted in review of the chart prior to signing ED Disposition - Plan for ED Patient: Chief Complaint: Hypoglycemia Referrals: Selvin Sifuentes, [facility] [Primary Care Provider] - What to do if you have Problems For any increased pain, shortness of breath, bleeding, nausea or vomiting, chest pain, or any unexpected problems, contact your Primary Care Provider. Call [facility] ([phone]) or report to the closest Emergency Room. Call 911 if necessary. 03/26/18 1517 <Electronically signed by Juarez Brody MD> Date Juarez Brody MD Cosigner Signature (If Indicated): Date CC: Selvin VILLATORO BEDSIDE GLUCOSE Collected: 03/26/2018 Status: F Source: LI 3:13 PM [facility] REPOSITORY TYPE CODE TESTS RESULT OUT OF RANGE REFERENCE UNITS LAB L501.080 70-110 mg/dL Normal BEDSIDE GLU 95 Result Comment: MANAGEMENT OF PATIENT CARE PER NURSING PROTOCOL Performed By: #### L501.080 #### [facility] Point of Care [address] [place] [address] BEDSIDE GLUCOSE Collected: 03/26/2018 Status: F Source: LI 1:55 PM [facility] REPOSITORY TYPE CODE TESTS RESULT OUT OF REFERENCE UNITS RANGE LAB L501.080 70-110 mg/dL High BEDSIDE GLU 153 Result Comment: MANAGEMENT OF PATIENT CARE PER NURSING PROTOCOL Performed By: #### L501.080 #### [facility] Point of Care [address] [place] [address] BEDSIDE GLUCOSE Collected: 03/26/2018 Status: F Source: LI 1:10 PM [facility] REPOSITORY TYPE CODE TESTS RESULT OUT OF RANGE REFERENCE UNITS LAB L501.080 70-110 mg/dL Normal BEDSIDE GLU 93 Result Comment: MANAGEMENT OF PATIENT CARE PER NURSING PROTOCOL Performed By: #### L501.080 #### [facility] Point of Care [address] [place], [place] [address] BEDSIDE GLUCOSE Collected: 03/26/2018 Status: F Source: LI 1:05 PM [facility] REPOSITORY TYPE CODE TESTS RESULT OUT OF REFERENCE UNITS RANGE LAB L501.080 70-110 mg/dL Low alert BEDSIDE GLU 15 Result Comment: Dextrose 50 Given MANAGEMENT OF PATIENT CARE PER NURSING PROTOCOL Performed By: #### L501.080 #### [facility] Point of Care [address] [place] [address] CHEST 1 VIEW Observed: 03/16/2018 Status: F Source: LI (PORTABLE) 2:22 PM [facility] Imaging Services [address] [facility] [place] [address] Chest 1 View (Portable) MR#: [id number] Acct: [id number] Name: DANIELLE MARY Rep #: [id number] : 1955 F 62 From: Jace Sanchez MD PCP: Selvin Vega Status: DIS WU Study: Chest 1 View (Portable) Date of Exam: 03/14/18 Exam# [id number] Ordering Dr: Sangita Issa STUDY: X-RAY CHEST REASON FOR EXAM: Female, 62 years old. Chest pain and cough TECHNIQUE: Single AP portable view of the chest. COMPARISON: 02/18/2018 FINDINGS: EKG leads overlie the chest There are interstitial fibrotic changes of the lungs. There is no demonstrated pleural abnormality. Normal size heart. Normal mediastinum and jovan. Normal visualized pulmonary arteries. Normal visualized aortic arch and descending thoracic aorta. Normal visualized thoracic spine. Normal visualized ribs, clavicles, and shoulders. There is no demonstrated abnormality of the visualized soft tissue structures of the upper abdomen. RAD/Chest 1 View (Portable) IMPRESSION: Chronic interstitial changes, no superimposed acute pulmonary process Electronically Signed: Trenton Sanchez MD at 14:13 EDT , Service support , CC: Sangita Issa; Selvin VILLATORO School Psychologist Assistant: Signed BEDSIDE GLUCOSE Collected: 03/16/2018 Status: F Source: LI 11:18 AM [facility] REPOSITORY Order Comment: RESULT(S) PREVIOUSLY REPORTED ON MANUAL REQUISITION DURING DOWNTIME. TYPE CODE TESTS RESULT OUT OF REFERENCE UNITS RANGE LAB L501.080 70-110 mg/dL High BEDSIDE GLU 270 Result Comment: MANAGEMENT OF PATIENT CARE PER NURSING PROTOCOL Performed By: #### L501.080 #### [facility] Point of Care [address] [place], [place] [address] BEDSIDE GLUCOSE Collected: 03/16/2018 Status: F Source: LI 6:25 AM [facility] REPOSITORY Order Comment: RESULT(S) PREVIOUSLY REPORTED ON MANUAL REQUISITION DURING DOWNTIME. TYPE CODE TESTS RESULT OUT OF REFERENCE UNITS RANGE LAB L501.080 70-110 mg/dL High BEDSIDE GLU 237 Result Comment: MANAGEMENT OF PATIENT CARE PER NURSING PROTOCOL Performed By: #### L501.080 #### [facility] Point of Care [address] [place] [address] CBC-COMPLETE BLOOD CNT Collected: 03/16/2018 Status: F Source: LI NO DIFF 5:55 AM [facility] REPOSITORY Order Comment: RESULT(S) PREVIOUSLY REPORTED ON MANUAL REQUISITION DURING DOWNTIME. TYPE CODE TESTS RESULT OUT OF RANGE REFERENCE UNITS LAB L100.1000 4.4-11.0 K/mm3 High WBC 11.2 LAB L100.1200 4.2-5.4 M/mm3 Normal RBC 4.21 LAB L100.1300 12.0-15.0 g/dl Normal HGB 13.4 LAB L100.1400 37-47 % Normal HCT 38.5 LAB L100.1500 81-99 fL Normal MCV 91.4 LAB L100.1600 27.0-32.0 pg Normal MCH 31.8 LAB L100.1700 32-36 g/gl Normal MCHC 34.8 LAB L100.1810 11.6-14.6 % Normal RDW CV 12.0 LAB L100.1820 35.1-43.9 fl Normal RDW SD 39.2 LAB L100.1900 150-450 K/mm3 Normal PLT 176 LAB L100.2000 6.2-12.0 fl Normal MPV 11.4 Performed By: #### L100.0500 #### [facility] [address] [facility] [address] [place], [place], [address] PROTHROMBIN TIME W/INR Collected: 03/16/2018 Status: F Source: [place] 5:55 AM [facility] REPOSITORY Order Comment: RESULT(S) PREVIOUSLY REPORTED ON MANUAL REQUISITION DURING DOWNTIME. TYPE CODE TESTS RESULT OUT OF RANGE REFERENCE UNITS LAB L300.4150 11.7-14.9 SECONDS Normal PROTIME 12.3 LAB L300.4200 Normal INR 0.9 Performed By: #### L300.3900, L300.4310 #### [facility] [address] [place], [place], [address] PARTIAL THROMBOPLAST Collected: 03/16/2018 Status: F Source: [place] TIME 5:55 AM [facility] REPOSITORY Order Comment: RESULT(S) PREVIOUSLY REPORTED ON MANUAL REQUISITION DURING DOWNTIME. TYPE CODE TESTS RESULT OUT OF RANGE REFERENCE UNITS LAB L300.4310 24.1-36.2 Seconds Normal PTT 26.2 Performed By: #### L300.3900, L300.4310 #### [facility] [address] [facility] [place], [address] BEDSIDE GLUCOSE Collected: 03/16/2018 Status: F Source: LI 4:00 AM [facility] REPOSITORY Order Comment: RESULT(S) PREVIOUSLY REPORTED ON MANUAL REQUISITION DURING DOWNTIME. TYPE CODE TESTS RESULT OUT OF RANGE REFERENCE UNITS LAB L501.080 70-110 mg/dL Normal BEDSIDE GLU 106 Result Comment: MANAGEMENT OF PATIENT CARE PER NURSING PROTOCOL Performed By: #### L501.080 #### [facility] Point of Care [address] [place] [address] BEDSIDE GLUCOSE Collected: 03/16/2018 Status: F Source: [place] 2:45 AM [facility] REPOSITORY Order Comment: RESULT(S) PREVIOUSLY REPORTED ON MANUAL REQUISITION DURING DOWNTIME. TYPE CODE TESTS RESULT OUT OF REFERENCE UNITS RANGE LAB L501.080 70-110 mg/dL High BEDSIDE GLU 149 Result Comment: MANAGEMENT OF PATIENT CARE PER NURSING PROTOCOL Performed By: #### L501.080 #### [facility] Point of Care [address] [place] [address] BEDSIDE GLUCOSE Collected: 03/16/2018 Status: F Source: [place] 2:00 AM [facility] REPOSITORY Order Comment: RESULT(S) PREVIOUSLY REPORTED ON MANUAL REQUISITION DURING DOWNTIME. TYPE CODE TESTS RESULT OUT OF REFERENCE UNITS RANGE LAB L501.080 70-110 mg/dL Low alert BEDSIDE GLU 36 Result Comment: MANAGEMENT OF PATIENT CARE PER NURSING PROTOCOL Performed By: #### L501.080 #### [facility] Point of Care [address] [place] [address] BEDSIDE GLUCOSE Collected: 03/15/2018 Status: F Source: [place] 10:00 PM [facility] REPOSITORY Order Comment: RESULT(S) PREVIOUSLY REPORTED ON MANUAL REQUISITION DURING DOWNTIME. TYPE CODE TESTS RESULT OUT OF REFERENCE UNITS RANGE LAB L501.080 70-110 mg/dL High alert BEDSIDE GLU 521 Result Comment: MANAGEMENT OF PATIENT CARE PER NURSING PROTOCOL Performed By: #### L501.080 #### [facility] Point of Care [address] [place], [place] [address] BEDSIDE GLUCOSE Collected: 03/15/2018 Status: F Source: LI 8:15 PM [facility] REPOSITORY Order Comment: RESULT(S) PREVIOUSLY REPORTED ON MANUAL REQUISITION DURING DOWNTIME. TYPE CODE TESTS RESULT OUT OF REFERENCE UNITS RANGE LAB L501.080 70-110 mg/dL High BEDSIDE GLU 400 Result Comment: MANAGEMENT OF PATIENT CARE PER NURSING PROTOCOL Performed By: #### L501.080 #### [facility] Point of Care [address] [place], [place] [address] BASIC METABOLIC Collected: 03/15/2018 Status: F Source: [place] PROFILE (BMP) 7:00 AM [facility] REPOSITORY Order Comment: RESULT(S) PREVIOUSLY REPORTED ON MANUAL REQUISITION DURING DOWNTIME. 'TROP' Serial specimen #1, #2, #3, or #4: 1 TYPE CODE TESTS RESULT OUT OF RANGE REFERENCE UNITS LAB L501.0100 74-106 mg/dL Low GLU 67 Result Comment: Please note revised GLUCOSE reference range effective 2017. LAB L501.1000 7-18 mg/dL Normal BUN 15 LAB L501.1100 0.55-1.02 mg/dL Normal CREAT,SERUM 0.73 Result Comment: The validity of the calculated GFR AND GFRAA in patients over 70 years has not been determined. Clinical correlation is essential. LAB L501.1110 >60 mL/min Normal EST GFR 85 LAB L501.1115 >60 mL/min Normal EST GFR - AA 103 LAB L501.1300 10-20 RATIO High BUN/CRE 20.5 LAB L501.2200 8.5-10.1 mg/dL Normal CA 8.9 LAB L501.5300 136-145 mmol/L Normal NA 141 LAB L501.5600 3.5-5.1 mmol/L Low K 3.4 LAB L501.5900 98-107 mmol/L High CL 108 LAB L501.6100 21.0-32.0 mmol/L Normal CO2 25.0 LAB L501.6200 5-15 Normal GAP 8 Performed By: #### L500.2500, L501.4010, L501.5200 #### [facility] [address] [facility] [address] [place], [place], [address] TROPONIN-I Collected: 03/15/2018 Status: F Source: LI 7:00 AM [facility] REPOSITORY Order Comment: RESULT(S) PREVIOUSLY REPORTED ON MANUAL REQUISITION DURING DOWNTIME. 'TROP' Serial specimen #1, #2, #3, or #4: 1 TYPE CODE TESTS RESULT OUT OF RANGE REFERENCE UNITS LAB L501.4010 <0.045 ng/mL Normal < 0.015 TROPONIN-I Result Comment: TROPONIN-I EXPECTED VALUES <0.045 Negative 0.045 - 0.590 Consistent with Cardiac Damage > OR = 0.600 Critical Value Not every elevated troponin is indicative of VT. These values should be used with clinical judgement in examining the patient's clinical picture for diagnosis. To establish a diagnosis of VT versus myocardial injury, there must be a demonstrated rise and/or fall in the troponin values, in addition to ischemic symptoms, EKG changes, new regional wall motion abnormality, and/or angiographical evidence. PLEASE NOTE: REFERENCE RANGES EDITED 18 Performed By: #### L500.2500, L501.4010, L501.5200 #### [facility] [address] [place], [address] MAGNESIUM Collected: 03/15/2018 Status: F Source: [place] 7:00 AM [facility] REPOSITORY Order Comment: RESULT(S) PREVIOUSLY REPORTED ON MANUAL REQUISITION DURING DOWNTIME. 'TROP' Serial specimen #1, #2, #3, or #4: 1 TYPE CODE TESTS RESULT OUT OF RANGE REFERENCE UNITS LAB L501.5200 1.6-2.6 mg/dL Normal MG 1.8 Performed By: #### L500.2500, L501.4010, L501.5200 #### [facility] [address] [place], [address] TROPONIN-I Collected: 03/15/2018 Status: F Source: LI 6:48 AM [facility] REPOSITORY Order Comment: RESULT(S) PREVIOUSLY REPORTED ON MANUAL REQUISITION DURING DOWNTIME. 'TROP' Serial specimen #1, #2, #3, or #4: 1 TYPE CODE TESTS RESULT OUT OF RANGE REFERENCE UNITS LAB L501.4010 <0.045 ng/mL Normal < 0.015 TROPONIN-I Result Comment: TROPONIN-I EXPECTED VALUES <0.045 Negative 0.045 - 0.590 Consistent with Cardiac Damage > OR = 0.600 Critical Value Not every elevated troponin is indicative of VT. These values should be used with clinical judgement in examining the patient's clinical picture for diagnosis. To establish a diagnosis of VT versus myocardial injury, there must be a demonstrated rise and/or fall in the troponin values, in addition to ischemic symptoms, EKG changes, new regional wall motion abnormality, and/or angiographical evidence. PLEASE NOTE: REFERENCE RANGES EDITED 18 Performed By: #### L501.4010 #### [facility] [address] [facility] [place], [address] BEDSIDE GLUCOSE Collected: 03/15/2018 Status: F Source: LI 6:05 AM [facility] REPOSITORY Order Comment: RESULT(S) PREVIOUSLY REPORTED ON MANUAL REQUISITION DURING DOWNTIME. TYPE CODE TESTS RESULT OUT OF REFERENCE UNITS RANGE LAB L501.080 70-110 mg/dL High BEDSIDE GLU 121 Result Comment: MANAGEMENT OF PATIENT CARE PER NURSING PROTOCOL Performed By: #### L501.080 #### [facility] Point of Care [address] [facility] [place] [address] CBC-COMPLETE BLOOD CNT Collected: 03/15/2018 Status: F Source: [place] NO DIFF 5:55 AM [facility] REPOSITORY Order Comment: RESULT(S) PREVIOUSLY REPORTED ON MANUAL REQUISITION DURING DOWNTIME. TYPE CODE TESTS RESULT OUT OF RANGE REFERENCE UNITS LAB L100.1000 4.4-11.0 K/mm3 Normal WBC 10.0 LAB L100.1200 4.2-5.4 M/mm3 Normal RBC 4.26 LAB L100.1300 12.0-15.0 g/dl Normal HGB 13.4 LAB L100.1400 37-47 % Normal HCT 38.7 LAB L100.1500 81-99 fL Normal MCV 90.8 LAB L100.1600 27.0-32.0 pg Normal MCH 31.5 LAB L100.1700 32-36 g/gl Normal MCHC 34.6 LAB L100.1810 11.6-14.6 % Normal RDW CV 12.1 LAB L100.1820 35.1-43.9 fl Normal RDW SD 39.4 LAB L100.1900 150-450 K/mm3 Normal PLT 193 LAB L100.2000 6.2-12.0 fl Normal MPV 11.4 Performed By: #### L100.0500 #### [facility] [address] [place], [address] HEMOGLOBIN A1C Collected: 03/15/2018 Status: F Source: [place] 3:48 AM [facility] REPOSITORY Order Comment: RESULT(S) PREVIOUSLY REPORTED ON MANUAL REQUISITION DURING DOWNTIME. TYPE CODE TESTS RESULT OUT OF RANGE REFERENCE UNITS LAB L501.9985 4.2-6.3 % High HGB A1C 12.9 Performed By: #### L501.9985 #### [facility] [address] [place], [address] TROPONIN-I Collected: 03/15/2018 Status: F Source: [place] 1:10 AM [facility] REPOSITORY Order Comment: RESULT(S) PREVIOUSLY REPORTED ON MANUAL REQUISITION DURING DOWNTIME. 'TROP' Serial specimen #1, #2, #3, or #4: 1 TYPE CODE TESTS RESULT OUT OF RANGE REFERENCE UNITS LAB L501.4010 <0.045 ng/mL Normal < 0.015 TROPONIN-I Result Comment: TROPONIN-I EXPECTED VALUES <0.045 Negative 0.045 - 0.590 Consistent with Cardiac Damage > OR = 0.600 Critical Value Not every elevated troponin is indicative of VT. These values should be used with clinical judgement in examining the patient's clinical picture for diagnosis. To establish a diagnosis of VT versus myocardial injury, there must be a demonstrated rise and/or fall in the troponin values, in addition to ischemic symptoms, EKG changes, new regional wall motion abnormality, and/or angiographical evidence. PLEASE NOTE: REFERENCE RANGES EDITED 18 Performed By: #### L501.4010 #### [facility] [address] [facility] [place], [address] PROTHROMBIN TIME W/INR Collected: 03/15/2018 Status: F Source: [place] 12:00 AM [facility] REPOSITORY Order Comment: RESULT(S) PREVIOUSLY REPORTED ON MANUAL REQUISITION DURING DOWNTIME. TYPE CODE TESTS RESULT OUT OF RANGE REFERENCE UNITS LAB L300.4150 11.7-14.9 SECONDS Normal PROTIME 12.2 LAB L300.4200 Normal INR 0.9 Performed By: #### L300.3900, L300.4310 #### [facility] [address] [place], [address] PARTIAL THROMBOPLAST Collected: 03/15/2018 Status: F Source: [place] TIME 12:00 AM [facility] REPOSITORY Order Comment: RESULT(S) PREVIOUSLY REPORTED ON MANUAL REQUISITION DURING DOWNTIME. TYPE CODE TESTS RESULT OUT OF RANGE REFERENCE UNITS LAB L300.4310 24.1-36.2 Seconds Normal PTT 25.0 Performed By: #### L300.3900, L300.4310 #### [facility] [address] [facility] [place], [address] BASIC METABOLIC Collected: 03/14/2018 Status: F Source: [place] PROFILE (BMP) 8:00 PM [facility] REPOSITORY Order Comment: RESULT(S) PREVIOUSLY REPORTED ON MANUAL REQUISITION DURING DOWNTIME. 'TROP' Serial specimen #1, #2, #3, or #4: 1 TYPE CODE TESTS RESULT OUT OF RANGE REFERENCE UNITS LAB L501.0100 74-106 mg/dL High alert GLU 474 Result Comment: Glucose result greater than or equal to 200 mg/dL suggests DIABETES MELLITUS per A.D.A. criteria. [facility]14[facility]18 9389 CHEM TECH. REPORT READ BACK BY SAME. Please note revised GLUCOSE reference range effective 2017. LAB L501.1000 7-18 mg/dL Normal BUN 15 LAB L501.1100 0.55-1.02 mg/dL Normal CREAT,SERUM 0.97 Result Comment: The validity of the calculated GFR AND GFRAA in patients over 70 years has not been determined. Clinical correlation is essential. LAB L501.1110 >60 mL/min Normal EST GFR 61 LAB L501.1115 >60 mL/min Normal EST GFR - AA 74 LAB L501.1300 10-20 RATIO Normal BUN/CRE 15.5 LAB L501.2200 8.5-10.1 mg/dL Normal CA 9.2 LAB L501.5300 136-145 mmol/L Low NA 133 LAB L501.5600 3.5-5.1 mmol/L Normal K 3.7 LAB L501.5900 98-107 mmol/L Normal CL 99 LAB L501.6100 21.0-32.0 mmol/L Normal CO2 26.0 LAB L501.6200 5-15 Normal GAP 8 Performed By: #### L500.2500, L501.4010 #### [facility] [address] [facility] [place], [address] TROPONIN-I Collected: 03/14/2018 Status: F Source: [place] 8:00 PM [facility] REPOSITORY Order Comment: RESULT(S) PREVIOUSLY REPORTED ON MANUAL REQUISITION DURING DOWNTIME. 'TROP' Serial specimen #1, #2, #3, or #4: 1 TYPE CODE TESTS RESULT OUT OF RANGE REFERENCE UNITS LAB L501.4010 <0.045 ng/mL Normal < 0.015 TROPONIN-I Result Comment: TROPONIN-I EXPECTED VALUES <0.045 Negative 0.045 - 0.590 Consistent with Cardiac Damage > OR = 0.600 Critical Value Not every elevated troponin is indicative of VT. These values should be used with clinical judgement in examining the patient's clinical picture for diagnosis. To establish a diagnosis of VT versus myocardial injury, there must be a demonstrated rise and/or fall in the troponin values, in addition to ischemic symptoms, EKG changes, new regional wall motion abnormality, and/or angiographical evidence. PLEASE NOTE: REFERENCE RANGES EDITED 18 Performed By: #### L500.2500, L501.4010 #### [facility] [address] [facility] [place], [address] CBC W/DIFF, AUTOMATED Collected: 03/14/2018 Status: F Source: [place] 8:00 PM [facility] REPOSITORY Order Comment: RESULT(S) PREVIOUSLY REPORTED ON MANUAL REQUISITION DURING DOWNTIME. TYPE CODE TESTS RESULT OUT OF RANGE REFERENCE UNITS LAB L100.1000 4.4-11.0 K/mm3 Normal WBC 7.9 LAB L100.1200 4.2-5.4 M/mm3 Normal RBC 4.64 LAB L100.1300 12.0-15.0 g/dl Normal HGB 14.5 LAB L100.1400 37-47 % Normal HCT 41.6 LAB L100.1500 81-99 fL Normal MCV 89.7 LAB L100.1600 27.0-32.0 pg Normal MCH 31.3 LAB L100.1700 32-36 g/gl Normal MCHC 34.9 LAB L100.1810 11.6-14.6 % Normal RDW CV 12.4 LAB L100.1820 35.1-43.9 fl Normal RDW SD 40.4 LAB L100.1900 150-450 K/mm3 Normal PLT 229 LAB L100.2000 6.2-12.0 fl Normal MPV 11.6 LAB L100.2100 47-70 % Low NEUT% 41.2 LAB L100.2200 19-41 % High LY% 47.6 LAB L100.2300 0-10 % Normal MONO% 7.3 LAB L100.2400 0-5 % Normal EO% 3.5 LAB L100.2500 0-1 % Normal BASO% 0.3 LAB L100.2550 0.0-0.9 % Normal IM GRAN % 0.100 Result Comment: IG% - Immature Granulocytes (promyelocytes, myelocytes and metamyelocytes) > 1% indicates that a LEFT SHIFT is Present. LAB L100.2620 2.0-7.7 X10 3/uL Normal Absolute Neut 3.3 LAB L100.2720 0.83-4.51 X10 3/ul Normal Absolute Lymph 3.78 Performed By: #### L100.0100 #### [facility] [address] [place] [address], [address] BEDSIDE GLUCOSE Collected: 03/14/2018 Status: F Source: [place] 5:00 AM [facility] REPOSITORY Order Comment: RESULT(S) PREVIOUSLY REPORTED ON MANUAL REQUISITION DURING DOWNTIME. TYPE CODE TESTS RESULT OUT OF RANGE REFERENCE UNITS LAB L501.080 70-110 mg/dL Normal BEDSIDE GLU 89 Result Comment: MANAGEMENT OF PATIENT CARE PER NURSING PROTOCOL Performed By: #### L501.080 #### [facility] Point of Care [address] [place], [place] [id number] BEDSIDE GLUCOSE Collected: 03/14/2018 Status: F Source: [place] 4:30 AM [facility] REPOSITORY Order Comment: RESULT(S) PREVIOUSLY REPORTED ON MANUAL REQUISITION DURING DOWNTIME. TYPE CODE TESTS RESULT OUT OF REFERENCE UNITS RANGE LAB L501.080 70-110 mg/dL High BEDSIDE GLU 238 Result Comment: MANAGEMENT OF PATIENT CARE PER NURSING PROTOCOL Performed By: #### L501.080 #### [facility] Point of Care [address] [place] [address] BEDSIDE GLUCOSE Collected: 03/14/2018 Status: F Source: [place] 4:20 AM [facility] REPOSITORY Order Comment: RESULT(S) PREVIOUSLY REPORTED ON MANUAL REQUISITION DURING DOWNTIME. TYPE CODE TESTS RESULT OUT OF REFERENCE UNITS RANGE LAB L501.080 70-110 mg/dL Low alert BEDSIDE GLU 37 Result Comment: MANAGEMENT OF PATIENT CARE PER NURSING PROTOCOL Performed By: #### L501.080 #### [facility] Point of Care [address] [facility] [place] [address] BEDSIDE GLUCOSE Collected: 03/14/2018 Status: F Source: [place] 1:40 AM [facility] REPOSITORY Order Comment: RESULT(S) PREVIOUSLY REPORTED ON MANUAL REQUISITION DURING DOWNTIME. TYPE CODE TESTS RESULT OUT OF REFERENCE UNITS RANGE LAB L501.080 70-110 mg/dL High BEDSIDE GLU 374 Result Comment: MANAGEMENT OF PATIENT CARE PER NURSING PROTOCOL Performed By: #### L501.080 #### [facility] Point of Care [address] [facility] [place] [address] 12 LEAD ELECTROCARDIOGRAM Observed: 02/21/2018 Status: F Source: [place] 1:16 PM [facility] REPOSITORY [facility] Cardiovascular Services [address] [place] [address] 12 Lead EKG 02/18/18 1902 MR#: [id number] Acct: [id number] Name: DANIELLE MARY Rep #: [id number] : 1955 62 From: Charlie Hernandez MD Attending Dr: Status: DEP ER Ordering Dr: Sina Lagos DO Date: 02/18/18 Location: ED Sex: F C Admitted: Test Reason : CP Blood Pressure : / mmHG Vent. Rate : 078 BPM Atrial Rate : 078 BPM P-R Int : 160 ms QRS Dur : 068 ms QT Int : 394 ms P-R-T Axes : 044 020 022 degrees QTc Int : 449 ms Normal sinus rhythm Normal ECG Confirmed by CHARLIE HERNANDEZ MD ([id number]), web content editor ELI HASKINS ([id number]) on 02/21/2018 1:15:32 PM Referred By: ANTHONY Confirmed By:CHARLIE HERNANDEZ MD 02/21/18 1315 Date Charlie Hernandez MD CC: Selvin VILLATORO; Sina Lagos DO Signed 12 LEAD ELECTROCARDIOGRAM Observed: 02/21/2018 Status: F Source: [place] 1:15 PM [facility] REPOSITORY [facility] Cardiovascular Services [address] [place] [address] 12 Lead EKG 02/18/184 MR#: [id number] Acct: [id number] Name: DANIELLE MARY Rep #: [id number] : 1955 62 From: Charlie Hernandez MD Attending Dr: Status: DEP ER Ordering Dr: Sina Lagos DO Date: 02/18/18 Location: ED Sex: F C Admitted: Test Reason : REPEAT Blood Pressure : / mmHG Vent. Rate : 074 BPM Atrial Rate : 074 BPM P-R Int : 152 ms QRS Dur : 076 ms QT Int : 420 ms P-R-T Axes : 033 015 027 degrees QTc Int : 466 ms Normal sinus rhythm Normal ECG Confirmed by CHARLIE HERNANDEZ MD ([id number]), web content editor ELI HASKINS ([id number]) on 02/21/2018 1:15:18 PM Referred By: ANTHONY Confirmed By:CHARLIE HERNANDEZ MD 02/21/18 8654 Date Charlie Hernandez MD CC: Selvin VILLATORO; Sina Lagos DO Signed EMERGENCY DEPARTMENT Observed: 02/19/2018 Status: F Source: [place] SUMMARY 12:06 AM [facility] REPOSITORY [facility] Medical Records Department [address] [place] [address] Emergency Department Summary 02/18/18 2253 MR#: [id number] Acct: [id number] Name: DANIELLE MARY Rep #: [id number] : 1955 62 From: Sina Lagos DO PCP: Selvin Vega Status: DEP ER - ER Visit Summary Date of Service: 02/18/18 Chief Complaint: [] Chest pain History of Present Illness: The patient is a 62 F [] complaining of chest pain beginning approximately 4:45 PM today (2-3 hours prior to arrival). Patient has a history of coronary artery disease with 4 cardiac stents. She reports she is a patient of Dr. Quesada. When questioned about her recent cardiac history her family member reported she had a negative stress test January 20, 2018. She reports the symptoms awoke her from sleep and she describes them as midsternal with slight radiation to her left upper extremity. Reports slight nausea, denies vomiting. She reports the nitroglycerin she took prior to arrival helped her symptoms however gave her headache. No other complaints at this time. Physical Examination: [] Afebrile, vital signs stable. 62-year-old female no acute distress. Cardiovascular exam is regular rate and rhythm. Lungs are clear to auscultation. Abdomen is soft and nontender. No lower extremity edema. Test Results: [] Chest x-ray 2 views negative. EKG #1 shows normal sinus rhythm, rate of 78 without ectopy or ischemic changes. CBC, BMP, troponin #1 negative. Repeat EKG: Normal sinus rhythm, rate of 74 without ectopy or ischemic changes. Troponin #2 negative at less than 0.015. Emergency Department Course and Treatment: [] Patient worked up for chest pain. First round of evaluation was negative. In review of the patient's labs and recent procedures she did have a negative cardiac catheterization approximately 5-6 months ago. Negative stress test 1 month ago. I discussed the patient's evaluation and diagnostic and laboratory findings with Dr. Torres, of cardiology. He suggested a delta troponin evaluation which returned negative. Patient be discharged to follow-up with her physician. Treatment Plan: [] Discharged with instructions to return if symptoms worsen. Disposition: [] Discharge, stable. Impression: [] Chest pain, unknown etiology This note was generated with [employer] dictation software. It may contain incorrect words, spelling, and punctuation that were not noted in review of the chart prior to signing ED Disposition - Plan for ED Patient: Chief Complaint: Chest Pain Referrals: Selvin Sifuentes NP-C [Primary Care Provider] - What to do if you have Problems For any increased pain, shortness of breath, bleeding, nausea or vomiting, chest pain, or any unexpected problems, contact your Primary Care Provider. Call [facility] ([phone]) or report to the closest Emergency Room. Call 911 if necessary. 02/19/18 0006 <Electronically signed by Sina Lagos DO> Date Sina Lagos DO Cosigner Signature (If Indicated): Date CC: Selvin VILLATORO DISCHARGE INSTRUCTION Observed: 02/18/2018 Status: F Source: [place] 10:59 PM [facility] REPOSITORY [facility] Medical Records Department [address] [place] [address] Discharge Instruction 02/18/182258 MR#: [id number] Acct: [id number] Name: DANIELLE MARY Rep #: [id number] : 1955 62 From: Sina Lagos DO PCP: Selvin Vega Status: REG ER ED Disposition - Plan for ED Patient: Disposition: Home or Assisted Living Chief Complaint: Chest Pain Instructions: ED Chest Pain [facility] Referrals: Selvin Sifuentes NP-C [Primary Care Provider] - What to do if you have Problems For any increased pain, shortness of breath, bleeding, nausea or vomiting, chest pain, or any unexpected problems, contact your Primary Care Provider. Call [facility] ([phone]) or report to the closest Emergency Room. Call 911 if necessary. 02/18/182258 <Electronically signed by Sina Lagos DO> Date Sina Lagos DO Cosigner Signature (If Indicated): Date CC: Selvin VILLATORO TROPONIN-I Collected: 02/18/2018 Status: F Source: [place] 9:13 PM [facility] REPOSITORY TYPE CODE TESTS RESULT OUT OF RANGE REFERENCE UNITS LAB L501.4010 <0.045 ng/mL Normal < 0.015 TROPONIN-I Result Comment: TROPONIN-I EXPECTED VALUES <0.045 NEGATIVE 0.045 - 0.590 AT RISK OF VT > OR = 0.600 SUGGEST VT Not every elevated troponin is indicative of VT. These values should be used with clinical judgement in examining the patient's clinical picture for diagnosis. To establish a diagnosis of VT versus myocardial injury, there must be a demonstrated rise and/or fall in the troponin values, in addition to ischemic symptoms, EKG changes, new regional wall motion abnormality, and/or angiographical evidence. PLEASE NOTE: REFERENCE RANGES EDITED 18 Performed By: #### L501.4010 #### [facility] [address] [place] [address]. [place], [address] PROTHROMBIN TIME W/INR Collected: 02/18/2018 Status: F Source: [place] 8:30 PM [facility] REPOSITORY TYPE CODE TESTS RESULT OUT OF RANGE REFERENCE UNITS LAB L300.4150 11.7-14.9 SECONDS Normal PROTIME 12.1 LAB L300.4200 Normal INR 0.9 Performed By: #### L300.3900 #### [facility] [address] [facility] [place], [address] CHEST PA AND LATERAL Observed: 02/18/2018 Status: F Source: [place] 7:24 PM [facility] REPOSITORY [facility] Imaging Services [address] [place] [address] Chest PA and Lateral MR#: [id number] Acct: [id number] Name: DANIELLE MARY Rep #: [id number] : 1955 F 62 From: Jorge Quintanilla MD PCP: Selvin Vega Status: REG ER Study: Chest PA and Lateral Date of Exam: 02/18/18 Exam# [id number] Ordering Dr: Sina Lagos DO STUDY: X-RAY CHEST REASON FOR EXAM: Female, 62 years old. CHEST PAIN TECHNIQUE: Frontal and lateral views of the chest. COMPARISON: January 09, 2018 FINDINGS: Chronic appearing increased interstitial lung markings. There is no demonstrated pleural abnormality. Normal heart size. Normal mediastinum and jovan. Normal visualized pulmonary arteries. There is atherosclerotic calcification of the aortic arch with tortuosity. There are diffuse degenerative changes of the visualized thoracic spine. There is degenerative osteoarthritis of the bilateral shoulders. There is no demonstrated abnormality of the visualized soft tissue structures of the upper abdomen. RAD/Chest PA and Lateral IMPRESSION: There are no acute findings. Electronically Signed: Jorge Quintanilla MD at 21:07 EDT , Service support , CC: Selvin VILLATORO; Sina Lagos DO School Psychologist Assistant: Signed CBC W/DIFF, AUTOMATED Collected: 02/18/2018 Status: F Source: [place] 7:06 PM [facility] REPOSITORY TYPE CODE TESTS RESULT OUT OF RANGE REFERENCE UNITS LAB L100.1000 4.4-11.0 K/mm3 Normal WBC 6.4 LAB L100.1200 4.2-5.4 M/mm3 Normal RBC 4.38 LAB L100.1300 12.0-15.0 g/dl Normal HGB 13.5 LAB L100.1400 37-47 % Normal HCT 40.0 LAB L100.1500 81-99 fL Normal MCV 91.3 LAB L100.1600 27.0-32.0 pg Normal MCH 30.8 LAB L100.1700 32-36 g/gl Normal MCHC 33.8 LAB L100.1810 11.6-14.6 % Normal RDW CV 12.8 LAB L100.1820 35.1-43.9 fl Normal RDW SD 42.4 LAB L100.1900 150-450 K/mm3 Normal PLT 204 LAB L100.2000 6.2-12.0 fl Normal MPV 11.1 LAB L100.2100 47-70 % Normal NEUT% 48.8 LAB L100.2200 19-41 % High LY% 41.5 LAB L100.2300 0-10 % Normal MONO% 6.8 LAB L100.2400 0-5 % Normal EO% 2.3 LAB L100.2500 0-1 % Normal BASO% 0.3 LAB L100.2550 0.0-0.9 % Normal IM GRAN % 0.300 Result Comment: IG% - Immature Granulocytes (promyelocytes, myelocytes and metamyelocytes) > 1% indicates that a LEFT SHIFT is Present. LAB L100.2620 2.0-7.7 X10 3/uL Normal Absolute Neut 3.1 LAB L100.2720 0.83-4.51 X10 3/ul Normal Absolute Lymph 2.67 Performed By: #### L100.0100 #### [facility] [address] [place], [address] BASIC METABOLIC Collected: 02/18/2018 Status: F Source: [place] PROFILE ([facility]) 7:06 PM [facility] REPOSITORY TYPE CODE TESTS RESULT OUT OF RANGE REFERENCE UNITS LAB L501.0100 74-106 mg/dL High GLU 448 Result Comment: Glucose result greater than or equal to 200 mg/dL suggests DIABETES MELLITUS per A.D.A. criteria. Please note revised GLUCOSE reference range effective 2017. LAB L501.1000 7-18 mg/dL Normal BUN 9 LAB L501.1100 0.55-1.02 mg/dL Normal CREAT,SERUM 0.96 Result Comment: The validity of the calculated GFR AND GFRAA in patients over 70 years has not been determined. Clinical correlation is essential. LAB L501.1110 >60 mL/min Normal EST GFR 62 Result Comment: Non- GFR Calc LAB L501.1115 >60 mL/min Normal EST GFR - AA 75 Result Comment: GFR Calc LAB L501.1255 ml/min Normal Estimated CRCL 48.97 LAB L501.1300 10-20 RATIO Low BUN/CRE 9.4 LAB L501.2200 8.5-10 mg/dL Normal .1 CA 9.0 LAB L501.5300 136-14 mmol/L Normal 5 NA 137 LAB L501.5600 3.5-5. mmol/L Normal 1 K 4.3 Result Comment: Slight Hemolysis, Result may be falsely increased. LAB L501.5900 98-107 mmol/L Normal CL 102 LAB L501.6100 21.0-32.0 mmol/L Normal CO2 24.0 LAB L501.6200 5-15 Normal GAP 11 Performed By: #### L500.2500, L501.4010 #### [facility] [address] [facility] [place], [address] TROPONIN-I Collected: 02/18/2018 Status: F Source: [place] 7:06 PM [facility] REPOSITORY TYPE CODE TESTS RESULT OUT OF RANGE REFERENCE UNITS LAB L501.4010 <0.045 ng/mL Normal < 0.015 TROPONIN-I Result Comment: TROPONIN-I EXPECTED VALUES <0.045 NEGATIVE 0.045 - 0.590 AT RISK OF VT > OR = 0.600 SUGGEST VT Not every elevated troponin is indicative of VT. These values should be used with clinical judgement in examining the patient's clinical picture for diagnosis. To establish a diagnosis of VT versus myocardial injury, there must be a demonstrated rise and/or fall in the troponin values, in addition to ischemic symptoms, EKG changes, new regional wall motion abnormality, and/or angiographical evidence. PLEASE NOTE: REFERENCE RANGES EDITED 18 Performed By: #### L500.2500, L501.4010 #### [facility] [address] [facility] [place], [address] 12 LEAD ELECTROCARDIOGRAM Observed: 01/17/2018 Status: F Source: [place] 9:17 AM [facility] REPOSITORY [facility] Cardiovascular Services [address] [place] [address] 12 Lead EKG 01/11/18 1016 MR#: [id number] Acct: [id number] Name: DANIELLE MARY Rep #: [id number] : 1955 62 From: Charlie Hernandez MD Attending Dr: Jo Ann Sewell Status: DIS WU Ordering Dr: Dianne Sewell DO Date: 01/11/18 Location: [facility] Sex: F C Admitted: 01/09/18 Test Reason : CHEST PAIN Blood Pressure : / mmHG Vent. Rate : 068 BPM Atrial Rate : 068 BPM P-R Int : 162 ms QRS Dur : 072 ms QT Int : 440 ms P-R-T Axes : 056 026 035 degrees QTc Int : 467 ms Normal sinus rhythm Normal ECG When compared with ECG of 10-JAN-2018 05:12, MANUAL COMPARISON REQUIRED, DATA IS UNCONFIRMED Confirmed by CHARLIE HERNANDEZ MD ([id number]), web content editor ELI HASKINS ([id number]) on 01/17/2018 9:17:02 AM Referred By: OLAMIDE Confirmed By:CHARLIE HERNANDEZ MD 01/17/18 0917 Date Charlie Hernandez MD CC: Jo Ann Sewell; Selvin VILLATORO Signed DISCHARGE SUMMARY Observed: 01/16/2018 Status: F Source: [place] 6:49 AM [facility] REPOSITORY [facility] Medical Records Department [address] [facility] [place] [address] Discharge Summary 01/11/18 1735 MR#: [id number] Acct: [id number] Name: DANIELLE MARY Rep #: [id number] : 1955 62 From: Dianne Sewell DO PCP: Selvin Vega Status: DIS WU Y Location: [place] [address]-1 Discharge Date and Diagnosis Date of Admission: 01/09/18 Date of Discharge: 01/11/18 - Primary Discharge Diagnosis Active and Suspected Problems Non-cardiac Chest pain GERD (gastroesophageal reflux disease) (Suspected) - Secondary Discharge Diagnosis Chronic Problems Uncontrolled type 2 diabetes mellitus (Chronic) - HGBA1C is 13.7 Benign essential hypertension (Chronic) Hyperlipidemia (Chronic) - controlled Coronary artery disease (Chronic) ROMEL LAD 01/21 COPD (chronic obstructive pulmonary disease) (Chronic) Tobacco abuse (Chronic) NSTEMI (non-ST elevated myocardial infarction) (Chronic) Hospital Course and Treatment Imaging Results: Clinical Impression(s) from Imaging Studies Chest X-Ray 01/09/18 19:30 IMPRESSION: Stable examination without radiographic evidence of acute intrathoracic disease. at 1952 Reported and signed by: Eli Silver MD Electronically Signed: Eli Silver MD at 18:48 EDT Tel , Service support , Upper GI Series 01/11/18 08:30 IMPRESSION: Unremarkable air contrast upper GI series. Electronically Signed: Uriah Weathers MD at 10:09 EDT Tel [phone], Service support , none Operations: None Procedures: Nuclear stress test Summary of Care Provided: Patient is a 62-year-old female with a past medical history of coronary artery disease with PTCA/ROMEL in the past, tobacco dependence, COPD, hyperlipidemia, hypertension and uncontrolled type 2 diabetes mellitus. She presented to the emergency department at [facility] on 01/09/2018 complaining of chest pain. EKG showed no suspicious ST or T-wave changes and the initial troponin was within normal limits. She was admitted to a monitored bed on PCU and serial cardiac enzymes were obtained and were negative. Stress test was performed and was negative for ischemia. Gated nuclear ejection fraction on the stress test was 80%. He continued to complain of chest discomfort and was kept in the hospital for an upper GI with esophagram. The esophagus was unremarkable and there was no evidence of esophageal obstruction or mass lesion. Stomach was unremarkable and there was no evidence of ulceration. He was discharged home on 01/11/2018 and given a prescription for Protonix 40 mg daily for suspected gastroesophageal reflux disease. She will follow-up with her PCP in 1-2 weeks. This note was generated with [employer] dictation software. It may contain incorrect words, spelling, and punctuation that were not noted in checking the note before signing. Discharge Activity: Return to Normal Activity Call your doctor if you observe: Fever of 101 or Higher, Shortness of breath, Dizziness, Fainting spells, Swelling in the ankles, Chest pain, - - recurrent nausea or vomiting Home Medications: Medications to take at Discharge Lisinopril [Zestril] 5 mg PO DAILY 08/17/15 Aspirin [Adult Low Dose Aspirin EC] 81 mg PO DAILY 02/04/16 Furosemide [Lasix] 40 mg PO DAILY 02/04/16 Dicyclomine HCl [Bentyl] 10 mg PO DAILY 01/24/17 Simvastatin [Zocor] 40 mg PO QHS 01/24/17 Clopidogrel Bisulfate [Plavix] 75 mg PO DAILY 06/23/17 Metoprolol Tartrate [Lopressor (beta elder)] 25 mg PO BID 06/23/17 Trazodone HCl 50 mg PO QHS 06/23/17 Nitroglycerin [Nitrostat] 0.4 mg SUBLINGUAL Q5M PRN 09/28/17 Isosorbide Mononitrate [Imdur] 30 mg PO DAILY 11/23/17 Insulin Aspart [Novolog Flexpen] 10 units SC TIDCM #0 11/29/17 Insulin Detemir [Levemir FlexPen] 40 units SC BID #0 11/29/17 Sertraline HCl [Zoloft] 50 mg PO DAILY #30 tab 11/29/17 Nystatin 500,000 unit PO 4X/DAY #40 udc 01/02/18 Ondansetron [Zofran Odt] 4 mg PO Q8H PRN PRN #10 tab 01/02/18 Pantoprazole Sodium [Protonix] 40 mg PO DAILY #30 tab 01/11/18 Following Prescrptions Were Given to Patient: Pantoprazole Sodium [Protonix] 40 mg PO DAILY #30 tab Primary Care Physician: Selvin Sifuentes NP-C [Primary Care Provider] - Please follow up with your Primary Care Physician in: 1-2 weeks Patient Instructions: What Is GERD?, Lifestyle Changes for Controlling GERD, Medications for GERD, Tips to Control Acid Reflux Disposition: Home Minutes spent on discharge:: 30 Medical Necessity - Tobacco Use Smoking Status: Former smoker Meaningful Use Info Meaningful Use Diagnoses (Choose all that apply): None applicable Code Visit OBSV [place] AND Dianne: [id number] Observation care discharge 01/16/18 0649 <Electronically signed by Dianne Sewell DO> Date Dianne Sewell DO Cosigner Signature (if applicable): Date CC: Jo Ann Sewell; Selvin VILLATORO Signed 12 LEAD ELECTROCARDIOGRAM Observed: 01/13/2018 Status: F Source: [place] 1:09 PM [facility] REPOSITORY [facility] Cardiovascular Services [address] [place] [address] 12 Lead EKG 01/10/18 0512 MR#: [id number] Acct: [id number] Name: DANIELLE MARY Rep #: [id number] : 1955 62 From: Charlie Hernandez MD Attending Dr: Jo Ann Sewell Status: DIS WU Ordering Dr: Kiran Quiñonez MD Date: 01/10/18 Location: [facility] Sex: F C Admitted: 01/09/18 Test Reason : AM EKG Blood Pressure : / mmHG Vent. Rate : 074 BPM Atrial Rate : 074 BPM P-R Int : 152 ms QRS Dur : 086 ms QT Int : 428 ms P-R-T Axes : 051 018 032 degrees QTc Int : 475 ms Sinus rhythm with Premature atrial complexes Otherwise normal ECG When compared with ECG of 09-JAN-2018 21:16, MANUAL COMPARISON REQUIRED, DATA IS UNCONFIRMED Confirmed by CHARLIE HERNANDEZ MD ([id number]), web content editor ELI HASKINS ([id number]) on 01/13/2018 1:09:05 PM Referred By: DR QUIÑONEZ Confirmed By:CHARLIE HERNANDEZ MD 01/13/18 5659 Date Charlie Hernandez MD CC: Jo Ann Sewell; Selvin VILLATORO; Kiran Quiñonez MD Signed 12 LEAD ELECTROCARDIOGRAM Observed: 01/13/2018 Status: F Source: [place] 1:01 PM [facility] REPOSITORY [facility] Cardiovascular Services [address] [place] [address] 12 Lead EKG 01/09/18 1854 MR#: [id number] Acct: [id number] Name: DANIELLE MARY Rep #: [id number] : 1955 62 From: Charlie Hernandez MD Attending Dr: Jo Ann Sewell Status: DIS WU Ordering Dr: Darlin Chavarria MD Date: 01/09/18 Location: [facility] Sex: F C Admitted: 01/09/18 Test Reason : Blood Pressure : / mmHG Vent. Rate : 098 BPM Atrial Rate : 098 BPM P-R Int : 130 ms QRS Dur : 078 ms QT Int : 364 ms P-R-T Axes : 047 043 044 degrees QTc Int : 464 ms Normal sinus rhythm Nonspecific ST abnormality Abnormal ECG Confirmed by CHARLIE HERNANDEZ MD ([id number]), web content editor ELI HASKINS ([id number]) on 01/13/2018 1:01:04 PM Referred By: Confirmed By:CHARLIE HERNANDEZ MD 01/13/18 1301 Date Charlie Hernandez MD CC: Darlin Chavarria MD; Jo Ann Sewell; Selvin VILLATORO Signed 12 LEAD ELECTROCARDIOGRAM Observed: 01/13/2018 Status: F Source: [place] 1:01 PM [facility] REPOSITORY [facility] Cardiovascular Services [address] [place] [address] 12 Lead EKG 01/09/18 2116 MR#: [id number] Acct: [id number] Name: DANIELLE MARY Rep #: [id number] : 1955 62 From: Charlie Hernandez MD Attending Dr: Jo Ann Sewell Status: DIS WU Ordering Dr: Darlin Chavarria MD Date: 01/09/18 Location: [facility] Sex: F C Admitted: 01/09/18 Test Reason : REPEAT Blood Pressure : / mmHG Vent. Rate : 085 BPM Atrial Rate : 085 BPM P-R Int : 142 ms QRS Dur : 084 ms QT Int : 404 ms P-R-T Axes : 046 017 028 degrees QTc Int : 480 ms Sinus rhythm with Premature atrial complexes Otherwise normal ECG Confirmed by CHARLIE HERNANDEZ MD ([id number]), web content editor ELI HASKINS ([id number]) on 01/13/2018 1:01:28 PM Referred By: STANLEY Confirmed By:CHARLIE HERNANDEZ MD 01/13/18 1301 Date Charlie Hernandez MD CC: Darlin Chavarria MD; J oAnn Sewell; Selvin VILLATORO Signed DISCHARGE INSTRUCTION Observed: 01/11/2018 Status: F Source: [place] 5:35 PM [facility] REPOSITORY [facility] Medical Records Department [facility] [place] [address] Instructions for Home/Discharge Instructions 01/11/18 1723 MR#: [id number] Acct: [id number] Name: DANIELLE MARY Rep #: [id number] : 1955 62 From: Dianne Sewell DO PCP: Selvin Vega Status: ADM WU You will use the following diet at home:: Calorie/Carbohydrate Controlled (specify 1200, 1400, etc), Cardiac, Other - no caffeine, peppermints, chocolate - these things all increase reflux and I think the pain in the chest may be due to reflux of acid from the stomach into the esophagus Your food should be the consistency of: Regular Your liquids should be the consistency of: Regular/Thin Discharge Activity: Return to Normal Activity Call your doctor if you observe: Fever of 101 or Higher, Shortness of breath, Dizziness, Fainting spells, Swelling in the ankles, Chest pain, - - recurrent nausea or vomiting Instructions: What Is GERD?, Lifestyle Changes for Controlling GERD, Medications for GERD, Tips to Control Acid Reflux Additional Instructions: The stress test was negative. I think the pain in the chest may be coming from reflux. I changed the Famotidine to another medication to control reflux called Protonix, also known as pantoprazole. Since starting this medication your chest pain has resolved and you no longer have nausea or vomiting. I have given you a prescription for Protonix/pantoprazole and you will take it once daily for the next month to see if this helps. There are certain activities and foods that can make reflux worse. You should stop smoking because this not only increases your risk of recurrent coronary artery disease but it does cause reflux. Chocolate, peppermints and caffeine all increase reflux as well. I have given you some literature to read about tips to control reflux. Pending Tests on Discharge: none Allergies/Adverse Reactions: Allergies Penicillins Allergy (Verified 01/09/18 22:21) Hives hydrocodone bitartrate [From Vicodin] Adverse Reaction (Verified 01/09/18 22:21) Vomiting ibuprofen Adverse Reaction (Verified 01/09/18 22:21) Vomiting Medications to take at Discharge Lisinopril [Zestril] 5 mg PO DAILY 08/17/15 Aspirin [Adult Low Dose Aspirin EC] 81 mg PO DAILY 02/04/16 Furosemide [Lasix] 40 mg PO DAILY 02/04/16 Dicyclomine HCl [Bentyl] 10 mg PO DAILY 01/24/17 Simvastatin [Zocor] 40 mg PO QHS 01/24/17 Clopidogrel Bisulfate [Plavix] 75 mg PO DAILY 06/23/17 Metoprolol Tartrate [Lopressor (beta elder)] 25 mg PO BID 06/23/17 Trazodone HCl 50 mg PO QHS 06/23/17 Nitroglycerin [Nitrostat] 0.4 mg SUBLINGUAL Q5M PRN 09/28/17 Isosorbide Mononitrate [Imdur] 30 mg PO DAILY 11/23/17 Insulin Aspart [Novolog Flexpen] 10 units SC TIDCM #0 11/29/17 Insulin Detemir [Levemir FlexPen] 40 units SC BID #0 11/29/17 Sertraline HCl [Zoloft] 50 mg PO DAILY #30 tab 11/29/17 Nystatin 500,000 unit PO 4X/DAY #40 udc 01/02/18 Ondansetron [Zofran Odt] 4 mg PO Q8H PRN PRN #10 tab 01/02/18 Pantoprazole Sodium [Protonix] 40 mg PO DAILY #30 tab 01/11/18 The following prescriptions were given: Pantoprazole Sodium [Protonix] 40 mg PO DAILY #30 tab Primary Care Physician: Selvin Sifuentes NP-C [Primary Care Provider] - Please follow up with your Primary Care Physician in: 1-2 weeks Proposed Discharge Date: 01/11/18 01/11/18 1735 <Electronically signed by Dianne Sewell DO> Date Dianne Sewell DO CC: Sam Quesada MD; Selvin VILLATORO BEDSIDE GLUCOSE Collected: 01/11/2018 Status: F Source: [place] 11:00 AM [facility] REPOSITORY TYPE CODE TESTS RESULT OUT OF RANGE REFERENCE UNITS LAB L501.080 70-110 mg/dL Normal BEDSIDE GLU 84 Result Comment: MANAGEMENT OF PATIENT CARE PER NURSING PROTOCOL Performed By: #### L501.080 #### [facility] Point of Care [address] [facility] [facility]. [place], [place] [id number] BEDSIDE GLUCOSE Collected: 01/11/2018 Status: F Source: [place] 6:52 AM [facility] REPOSITORY TYPE CODE TESTS RESULT OUT OF REFERENCE UNITS RANGE LAB L501.080 70-110 mg/dL High BEDSIDE GLU 121 Result Comment: MANAGEMENT OF PATIENT CARE PER NURSING PROTOCOL Performed By: #### L501.080 #### [facility] Point of Care [address] [place] [address] BEDSIDE GLUCOSE Collected: 01/10/2018 Status: F Source: [place] 9:59 PM [facility] REPOSITORY TYPE CODE TESTS RESULT OUT OF REFERENCE UNITS RANGE LAB L501.080 70-110 mg/dL High BEDSIDE GLU 229 Result Comment: Insulin Given MANAGEMENT OF PATIENT CARE PER NURSING PROTOCOL Performed By: #### L501.080 #### [facility] Point of Care [address] [place] [address] BEDSIDE GLUCOSE Collected: 01/10/2018 Status: F Source: [place] 4:40 PM [facility] REPOSITORY TYPE CODE TESTS RESULT OUT OF REFERENCE UNITS RANGE LAB L501.080 70-110 mg/dL High BEDSIDE GLU 178 Result Comment: MANAGEMENT OF PATIENT CARE PER NURSING PROTOCOL Performed By: #### L501.080 #### [facility] Point of Care [address] [place] [address] UPPER GI SERIES Observed: 01/10/2018 Status: F Source: [place] ONLY 12:25 PM [facility] REPOSITORY [facility] Imaging Services [address] [place] [address] Upper GI Series Only MR#: [id number] Acct: [id number] Name: DANIELLE MARY Rep #: [id number] : 1955 F 62 From: Uriah Weathers MD PCP: Selvin Vega Status: ADM WU Study: Upper GI Series Only Date of Exam: 01/11/18 Exam# [id number] Ordering Dr: Nguyen Rain STUDY: AIR-CONTRAST UPPER GI SERIES. REASON FOR EXAM: Female, 62 years old. Epigastric pain. Postprandial vomiting. FLUOROSCOPY TIME (if supplied): (0:36) minutes/seconds TECHNIQUE: The patient ingested barium. Multiple images of the esophagus, stomach and duodenum were obtained. COMPARISON: None. FINDINGS: The esophagus is unremarkable. There is no evidence of esophageal obstruction. No mass lesion is seen. The patient ingested a 12 mm tablet at bedtime without any difficulty. The stomach is unremarkable. No evidence of ulceration. No mass lesion is seen. RAD/Upper GI Series Only IMPRESSION: Unremarkable air contrast upper GI series. Electronically Signed: Uriah Weathers MD at 10:09 EDT Tel [phone], Service support , CC: MAMI Rain; Selvin VILLATORO School Psychologist Assistant: Signed BEDSIDE GLUCOSE Collected: 01/10/2018 Status: F Source: [place] 11:24 AM [facility] REPOSITORY TYPE CODE TESTS RESULT OUT OF REFERENCE UNITS RANGE LAB L501.080 70-110 mg/dL High BEDSIDE GLU 360 Result Comment: MANAGEMENT OF PATIENT CARE PER NURSING PROTOCOL Performed By: #### L501.080 #### [facility] Point of Care [address] [place] [address] TROPONIN-I Collected: 01/10/2018 Status: F Source: [place] 9:12 AM [facility] REPOSITORY Order Comment: 'TROP' Serial specimen #1, #2, #3, or #4: 4 TYPE CODE TESTS RESULT OUT OF RANGE REFERENCE UNITS LAB L501.4010 <0.06 ng/mL Normal < 0.02 TROPONIN-I Result Comment: TROPONIN-I EXPECTED VALUES <0.05 NEGATIVE 0.06 - 0.59 AT RISK OF VT > OR = 0.60 SUGGEST VT Performed By: #### L501.4010 #### [facility] [address] [place], [address] STRESS REPORT Observed: 01/10/2018 Status: F Source: [place] 8:52 AM [facility] REPOSITORY [facility] Cardiovascular Services [address] [place] [address] MR#: [id number] Acct: [id number] Name: DANIELLE MARY Rep #: [id number] : 1955 62 From: Charlie Hernandez MD Primary Care: Selvin Vega Status: ADM WU Ordering Dr: Sex: F C Stress Test Report Pharmacologic myocardial perfusion stress test. 62-year-old lady with a history of chest pain. Stress protocol: Resting heart rate demonstrates normal sinus rhythm with a rate of 77 bpm normal intervals and noted resting blood pressure 7 and 39/67 mmHg. 0.4 mg regadenoson was infused per usual protocol followed by rapid intravenous saline flush injection continuous EKG monitoring was performed. The maximum heart rate attained was 105 bpm which was 67% maximum predicted heart rate the maximum workload attained was 1 metabolic equivalent. At rest there were nonspecific ST-T wave changes noted with no meet the criteria for ischemia at peak infusion nonspecific ST-T wave changes were noted. The resting blood pressure is 139/67 peak blood pressure 164 112. Myocardial perfusion protocol. 10.9 mCi of technetium 99m sestamibi was injected at rest. 0.4 mg regadenoson was infused per usual protocol. At peak infusion 34.0 mCi of technetium 99m sestamibi was injected stress images were obtained stress and rest images were reconstructed and compared in the short axis vertical long and horizontal long axis. Gated images were also obtained. Perfusion SPECT analysis: Review of the stress images demonstrate normal uptake of tracer noted in all areas of the myocardium. The resting images similarly demonstrate normal uptake of tracer noted in all areas of the myocardium. No areas of reversibility are noted suggest ischemia no previous infarct is noted. Gated SPECT analysis: The gated ejection fraction is in excess of 80%. Conclusion: Normal pharmacologic myocardial perfusion stress test. Preserved ejection fraction. 01/10/18851 <Electronically signed by Charlie Hernandez MD> Date Charlie Hernandez MD CC: Jo Ann VILLATORO Date Dictated: 01/10/1850 Date Transcribed: 01/10/18849 School Psychologist Assistant: [place] Signed BEDSIDE GLUCOSE Collected: 01/10/2018 Status: F Source: [place] 5:54 AM [facility] REPOSITORY TYPE CODE TESTS RESULT OUT OF REFERENCE UNITS RANGE LAB L501.080 70-110 mg/dL High BEDSIDE GLU 314 Result Comment: MANAGEMENT OF PATIENT CARE PER NURSING PROTOCOL Performed By: #### L501.080 #### [facility] Point of Care [address] [place] [address] CBC W/DIFF, AUTOMATED Collected: 01/10/2018 Status: F Source: [place] 3:18 AM [facility] REPOSITORY TYPE CODE TESTS RESULT OUT OF RANGE REFERENCE UNITS LAB L100.1000 4.4-11.0 K/mm3 Normal WBC 6.5 LAB L100.1200 4.2-5.4 M/mm3 Low RBC 4.01 LAB L100.1300 12.0-15.0 g/dl Normal HGB 12.8 LAB L100.1400 37-47 % Low HCT 36.5 LAB L100.1500 81-99 fL Normal MCV 91.0 LAB L100.1600 27.0-32.0 pg Normal MCH 31.9 LAB L100.1700 32-36 g/gl Normal MCHC 35.1 LAB L100.1810 11.6-14.6 % Normal RDW CV 12.6 LAB L100.1820 35.1-43.9 fl Normal RDW SD 41.6 LAB L100.1900 150-450 K/mm3 Normal PLT 204 LAB L100.2000 6.2-12.0 fl Normal MPV 10.9 LAB L100.2100 47-70 % Normal NEUT% 52.1 LAB L100.2200 19-41 % Normal LY% 33.5 LAB L100.2300 0-10 % High MONO% 10.3 LAB L100.2400 0-5 % Normal EO% 3.1 LAB L100.2500 0-1 % Normal BASO% 0.5 LAB L100.2550 0.0-0.9 % Normal IM GRAN % 0.500 Result Comment: IG% - Immature Granulocytes (promyelocytes, myelocytes and metamyelocytes) > 1% indicates that a LEFT SHIFT is Present. LAB L100.2620 2.0-7.7 X10 3/uL Normal Absolute Neut 3.4 LAB L100.2720 0.83-4.51 X10 3/ul Normal Absolute Lymph 2.18 Performed By: #### L100.0100 #### [facility] [address] [place], [place], [address] COMPREHENSIVE METABOLIC Collected: 01/10/2018 Status: F Source: [facility] 3:18 AM [facility] REPOSITORY TYPE CODE TESTS RESULT OUT OF RANGE REFERENCE UNITS LAB L501.0100 74-106 mg/dL High GLU 284 Result Comment: Glucose result greater than or equal to 200 mg/dL suggests DIABETES MELLITUS per A.D.A. criteria. Please note revised GLUCOSE reference range effective 2017. LAB L501.1000 7-18 mg/dL Normal BUN 13 LAB L501.1100 0.55-1.02 mg/dL Normal CREAT,SERUM 0.58 Result Comment: The validity of the calculated GFR AND GFRAA in patients over 70 years has not been determined. Clinical correlation is essential. LAB L501.1110 >60 mL/min Normal EST GFR 112 Result Comment: Non- GFR Calc LAB L501.1115 >60 mL/min Normal EST GFR - AA 136 Result Comment: GFR Calc LAB L501.1255 ml/min Normal Estimated CRCL 81.06 LAB L501.1300 10-20 RATIO High BUN/CRE 22.6 LAB L501.1500 6.4-8. g/dL Low 2 T PROT 6.2 LAB L501.1800 3.2-5. g/dL Low 0 ALB 3.0 LAB L501.1950 2.2-4. g/dL Normal 2 GLOB 3.2 LAB L501.2000 0.9-2. RATIO Normal 4 A/G 0.9 LAB L501.2200 8.5-10 mg/dL Low .1 CA 7.7 LAB L501.4100 15-37 U/L High AST 40 LAB L501.4305 45-117 U/L Normal ALK P 76 LAB L501.4405 13-56 U/L Normal ALT 33 Result Comment: Please note revised ALT reference range effective 2017. LAB L501.4600 0.20-1.00 mg/dL Normal T BILI 0.30 LAB L501.5300 136-145 mmol/L Normal NA 137 LAB L501.5600 3.5-5.1 mmol/L Normal K 3.9 LAB L501.5900 98-107 mmol/L Normal CL 105 LAB L501.6100 21.0-32.0 mmol/L Normal CO2 21.0 LAB L501.6200 5-15 Normal GAP 11 Performed By: #### L500.4050, L500.4100 #### [facility] [address] [place], [place], [address] LIPID PROFILE Collected: 01/10/2018 Status: F Source: [place] 3:18 AM [facility] REPOSITORY TYPE CODE TESTS RESULT OUT OF RANGE REFERENCE UNITS LAB L501.4900 200 mg/dL Normal CHOL 133 Result Comment: <200 mg/dL Desirable 200-240 mg/dL Borderline >240 mg/dL High Risk LAB L501.5000 mg/dL Normal TRIG 154 Result Comment: The drugs N-Acetylcysteine and Metamizole may falsely depress this assay. Serum Triglycerides Reference Interval Normal <150 mg/dL Borderline high 150 - 199 mg/dL High 200 - 499 mg/dL Very High > or = 500 mg/dL LAB L501.6400 mg/dL Low HDL 39 Result Comment: The drugs N-Acetylcysteine and Metamizole may falsely depress this assay. Reference Range HDL <40 mg/dL Low HDL Cholesterol HDL >or= 60 mg/dL High HDL Cholesterol LAB L501.6500 0-130 mg/dL Normal LDL 63 LAB L501.6600 5-40 mg/dL Normal VLDL 31 Performed By: #### L500.4050, L500.4100 #### [facility] [address] [place], [address] PROTHROMBIN TIME W/INR Collected: 01/10/2018 Status: F Source: [place] 3:18 AM [facility] REPOSITORY TYPE CODE TESTS RESULT OUT OF RANGE REFERENCE UNITS LAB L300.4150 11.7-14.9 SECONDS Normal PROTIME 12.7 LAB L300.4200 Normal INR 1.0 Performed By: #### L300.3900, L300.4310 #### [facility] [address] [place], [address] PARTIAL THROMBOPLAST Collected: 01/10/2018 Status: F Source: [place] TIME 3:18 AM [facility] REPOSITORY TYPE CODE TESTS RESULT OUT OF RANGE REFERENCE UNITS LAB L300.4310 24.1-36.2 Seconds Normal PTT 25.2 Performed By: #### L300.3900, L300.4310 #### [facility] [address] [place], [address] HEMOGLOBIN A1C Collected: 01/10/2018 Status: F Source: [place] 3:18 AM [facility] REPOSITORY TYPE CODE TESTS RESULT OUT OF RANGE REFERENCE UNITS LAB L501.9985 4.2-6.3 % High HGB A1C 13.7 Performed By: #### L501.9985 #### [facility] [address] [place], [address] EMERGENCY DEPARTMENT Observed: 01/10/2018 Status: F Source: [place] SUMMARY 12:49 AM [facility] REPOSITORY [facility] Medical Records Department [address] [place] [address] Emergency Department Summary 01/09/181926 MR#: [id number] Acct: [id number] Name: DANIELLE MARY Rep #: [id number] : 1955 62 From: Darlin Chavarria MD PCP: Selvin Vega Status: ADM WU - ER Visit Summary Date of Service: 01/09/18 Chief Complaint: Chest pain History of Present Illness: The patient is a 62 F presenting with chest pain. She states it started this afternoon. She states it is worsened with exertion. She has associated nausea, vomiting, diaphoresis, shortness of breath. The pain is in her mid chest going to her left arm. She states it feels like her previous VT. She took 3 nitro at home with no improvement. She has history of hypertension, diabetes, hypercholesteremia, early family history of heart disease. She is not a smoker. She has [address] Quesada. She states she had a fever of 102 yesterday. No fever today. No cough or other complaints. Physical Examination: Vitals are stable. Patient is afebrile. Alert no acute distress. HEENT exam is unremarkable. Neck is supple. Lungs are clear and equal bilaterally. Heart is regular rate and rhythm. Abdomen is soft nontender nondistended. Extremities are unremarkable. Skin is warm and dry. No focal neurologic deficit. Remainder of exam is unremarkable. Emergency Department Course and Treatment: Patient is given aspirin, morphine, Zofran. EKG is sinus rhythm rate of 98 with no acute ischemic changes. Chest x-ray shows no acute process. CBC, chemistries unremarkable other than glucose 315. Troponin is negative. Influenza is negative. Patient has multiple risk factors. Will discuss with hospitalist for observation. Patient had a return of her chest pain while in the emergency department. She was given additional dose of morphine. EKG repeat is sinus rate of 85 with no acute ischemic changes. Patient's pain is improved after morphine. Disposition: Observation Impression: Chest pain This note was generated with [employer] dictation software. It may contain incorrect words, spelling, and punctuation that were not noted in review of the chart prior to signing ED Disposition - Plan for ED Patient: Chief Complaint: Chest Pain Referrals: Selvin Sifuentes, NURSE ORTHOPAEDIC-C [Primary Care Provider] - What to do if you have Problems For any increased pain, shortness of breath, bleeding, nausea or vomiting, chest pain, or any unexpected problems, contact your Primary Care Provider. Call [facility] ([phone]) or report to the closest Emergency Room. Call 911 if necessary. 01/10/18 0049 <Electronically signed by Darlin Chavarria MD> Date Darlin Chavarria MD Cosigner Signature (If Indicated): Date CC: Selvin VILLATORO TROPONIN-I Collected: 01/09/2018 Status: F Source: [place] 10:50 PM [facility] REPOSITORY Order Comment: 'TROP' Serial specimen #1, #2, #3, or #4: 2 TYPE CODE TESTS RESULT OUT OF RANGE REFERENCE UNITS LAB L501.4010 <0.06 ng/mL Normal < 0.02 TROPONIN-I Result Comment: TROPONIN-I EXPECTED VALUES <0.05 NEGATIVE 0.06 - 0.59 AT RISK OF VT > OR = 0.60 SUGGEST VT Performed By: #### L501.4010 #### [facility] [address] [place], [address] BEDSIDE GLUCOSE Collected: 01/09/2018 Status: F Source: [place] 10:40 PM [facility] REPOSITORY TYPE CODE TESTS RESULT OUT OF REFERENCE UNITS RANGE LAB L501.080 70-110 mg/dL High BEDSIDE GLU 236 Result Comment: MANAGEMENT OF PATIENT CARE PER NURSING PROTOCOL Performed By: #### L501.080 #### [facility] Point of Care [address] [place] [address] HISTORY AND PHYSICAL Observed: 01/09/2018 Status: F Source: [place] EXAM 9:11 PM [facility] REPOSITORY [facility] Medical Records Department [address] [place] [address] History and Physical 01/09/182102 MR#: [id number] Acct: [id number] Name: DANIELLE MARY Rep #: [id number] : 1955 62 From: Kiran Quiñonez MD PCP: Selvin Vega Status: REG ER Y Location: ED Problem List (1) Uncontrolled type 2 diabetes mellitus Status: Chronic Qualifiers: (2) Benign essential hypertension Status: Chronic (3) Hyperlipidemia Status: Chronic Qualifiers: (4) Coronary artery disease Status: Chronic Comment: ROMEL LAD 01/21 (5) COPD (chronic obstructive pulmonary disease) Status: Chronic Comment: cont smoking (6) Chest pain Status: Acute (7) Tobacco abuse Status: Chronic History of Present Illness Date of Admission: 01/09/18 Chief Complaint: chest pain The patient is a 62 year old female patient with a known history of coronary artery disease status post 5 stents one year ago presents to the ER with substernal chest pain. The onset of this pain began while she was watching television this afternoon. As she walked across her room the pain became worse and radiated to her left shoulder, arm to her hand. This felt similar to her previous VT. She is a poorly controlled diabetic, smoker with COPD and already known to have heart disease. Initial troponin is negative and EKG is negative for acute changes. The pain was not responsive to three nitroglycerin doses. She will be admitted for further cardiac workup. Past Medical History Past Medical History (Chronic Problems): Chronic Problems Uncontrolled type 2 diabetes mellitus (Chronic) Benign essential hypertension (Chronic) Type 2 diabetes mellitus (Chronic) Hyperlipidemia (Chronic) Coronary artery disease (Chronic) ROMEL LAD 01/21 COPD (chronic obstructive pulmonary disease) (Chronic) cont smoking Tobacco abuse (Chronic) Allergies Penicillins Allergy (Verified 01/09/18 18:47) Hives hydrocodone bitartrate [From Vicodin] Adverse Reaction (Verified 01/09/18 18:47) Vomiting ibuprofen Adverse Reaction (Verified 01/09/18 18:47) Vomiting Home Medications: Ambulatory Orders Medication Instructions Recorded Lisinopril [Zestril] 5 mg PO DAILY 08/17/15 Aspirin [Adult Low Dose Aspirin EC] 81 mg PO DAILY 02/04/16 Surgical History: angioplasty, cholecystectomy, hysterectomy, - - LAD PCI/ROMEL-02/08/2014 at [facility], stent placement at [facility] 03/15/17 along with percutaneous balloon angioplasty Psychiatric History: No pertinent psych hx HYDRO MECHANIC History: No pertinent HYDRO MECHANIC history Smoking Status: Current some day smoker - *Family History Maternal History Items: Heart Disease Paternal History Items: Heart Disease Sibling History Items: Heart Disease Review of Systems Constitutional: Denies: Chills, Fever, Weight Change HEENT: Denies: Head Aches, Sinus Congestion, Sinus Drainage Cardiovascular: Reports: Chest Pain, Chest Pressure, Chest Tightness. Denies: Palpitations Respiratory: Denies: Cough, Shortness of breath at rest, Sputum production Gastrointestinal: Denies: Abdominal Pain, Nausea, Vomiting Genitourinary: Denies: Dysuria Musculoskeletal: Denies: Joint Pain, Joint Tenderness Skin: Denies: Rash, Wounds Neurological: Denies: Numbness, Tingling, Focal weakness Psychiatric: Reports: Anxiety. Denies: Depression, Homicidal Ideations, Suicidal Ideations Hematologic/ Lymphatic: Denies: Easy Bruising, Easy Bleeding VTE Information - Inpt Only VTE Present on Admission: No VTE Mechan Device Prophylaxis: None VTE Pharm Prophylaxis ordered?: Yes - Physical Exam General: Alert, Oriented x3, Cooperative HEENT: Atraumatic, Normocephalic Neck: Supple, Negative Carotid Bruits Lungs: Clear to auscultation, Normal air movement Cardiovascular: Regular rate, Regular Rhythm, Normal S1, Normal S2, No murmurs Abdomen: Bowel Sounds Present, Soft, Non Tender Extremities: No edema, Capillary Refill Less than 3 Seconds Skin: No rashes, No breakdown Musculoskeletal: No Tenderness to Palpation of Joints or Extremities Neurological: Neuro grossly intact Psych/Mental Status: Appropriate, Anxious Vital Signs Temp Pulse Resp BP Pulse Ox 97.5 F L 94 16 151/74 H 97 01/09/18 18:45 01/09/18 20:44 01/09/18 20:44 01/09/18 20:44 01/09/18 20:44 Oxygen Delivery Method Room Air Weight: 148 lb 12.992 oz Body Mass Index (BMI) 26.3 Finger Stick Blood Glucose 115 Microbiology Past 72 Hours 01/09/18 19:50 Influenza Types A,B Direct FA ([facility]) - Final Mucosa - Nose Laboratory Tests Past 24 Hrs WBC 5.6 RBC 4.44 Hgb 13.6 Hct 40.0 MCV 90.1 MCH 30.6 MCHC 34.0 RDW 12.8 Assessment/Plan Chronic Problems Uncontrolled type 2 diabetes mellitus (Chronic) Benign essential hypertension (Chronic) Type 2 diabetes mellitus (Chronic) Hyperlipidemia (Chronic) Coronary artery disease (Chronic) ROMEL LAD 01/21 COPD (chronic obstructive pulmonary disease) (Chronic) cont smoking Tobacco abuse (Chronic) Acute Problems Chest Pain Plan - admit to progressive care unit - NPO at midnight - cycle cardiac markers. - morphine, oxygen, nitro and aspirin per routine - nuclear stress test in am - consult cardiology if Troponin converts, or if stress test positive - nicotine patch and encourage smoking cessation - check bmp, a1c in am - continue routine home medications - LMWH for DVT prophylaxis Code Visit OBSV E AND M: [id number] Initial observation care L2 01/09/181 <Electronically signed by Kiran Quiñonez MD> Date Kiran Quiñonez MD Cosigner Signature: Date (if applicable) CC: Selvin VILLATORO; Kiran Quiñonez MD Signed Observed: 01/09/2018 Status: F Source: LI INFLUENZA A+B (RAPID 7:50 PM [facility] [place] REPOSITORY Order Date: 01/09/18 FLU A/B Rapid Negative test results should be confirmed by culture. Order Rapid Viral Culture for Influenzae A+B (044644) if clinically indicated. Influenza Ag, Direct Presumptive NEGATIVE for Influenza A/B Antigen (See Note) Performed By: #### M101.0101 #### [facility] [address] [place], [address] CHEST 1 VIEW Observed: 01/09/2018 Status: F Source: LI (PORTABLE) 7:27 PM [facility] REPOSITORY [facility] Imaging Services [address] [place] [address] Chest 1 View (Portable) MR#: [id number] Acct: [id number] Name: DANIELLE MARY Rep #: [id number] : 1955 F 62 From: Eli Silver MD PCP: Selvin Vega Status: REG ER Study: Chest 1 View (Portable) Date of Exam: 01/09/18 Exam# [id number] Ordering Dr: Darlin Chavarria MD XR Chest 1 View INDICATION: CHEST PAIN COMPARISON: January 02, 2018 FINDINGS: Heart size and pulmonary vascularity are within normal limits. Cardiac stent is suggested. The lungs are clear without evidence of airspace consolidation or pleural effusion. The osseous structures are grossly unremarkable. RAD/Chest 1 View (Portable) IMPRESSION: Stable examination without radiographic evidence of acute intrathoracic disease. at 1952 Reported and signed by: Eli Silver MD Electronically Signed: Eli Silver MD at 18:48 EDT Tel , Service support , CC: Darlin Chavarria MD; Selvin VILLATORO School Psychologist Assistant: Signed CBC W/DIFF, AUTOMATED Collected: 01/09/2018 Status: F Source: [place] 7:16 PM [facility] REPOSITORY TYPE CODE TESTS RESULT OUT OF RANGE REFERENCE UNITS LAB L100.1000 4.4-11.0 K/mm3 Normal WBC 5.6 LAB L100.1200 4.2-5.4 M/mm3 Normal RBC 4.44 LAB L100.1300 12.0-15.0 g/dl Normal HGB 13.6 LAB L100.1400 37-47 % Normal HCT 40.0 LAB L100.1500 81-99 fL Normal MCV 90.1 LAB L100.1600 27.0-32.0 pg Normal MCH 30.6 LAB L100.1700 32-36 g/gl Normal MCHC 34.0 LAB L100.1810 11.6-14.6 % Normal RDW CV 12.8 LAB L100.1820 35.1-43.9 fl Normal RDW SD 41.9 LAB L100.1900 150-450 K/mm3 Normal PLT 214 LAB L100.2000 6.2-12.0 fl Normal MPV 11.1 LAB L100.2100 47-70 % Normal NEUT% 50.8 LAB L100.2200 19-41 % Normal LY% 36.2 LAB L100.2300 0-10 % Normal MONO% 9.1 LAB L100.2400 0-5 % Normal EO% 3.2 LAB L100.2500 0-1 % Normal BASO% 0.2 LAB L100.2550 0.0-0.9 % Normal IM GRAN % 0.500 Result Comment: IG% - Immature Granulocytes (promyelocytes, myelocytes and metamyelocytes) > 1% indicates that a LEFT SHIFT is Present. LAB L100.2620 2.0-7.7 X10 3/uL Normal Absolute Neut 2.8 LAB L100.2720 0.83-4.51 X10 3/ul Normal Absolute Lymph 2.02 Performed By: #### L100.0100 #### [facility] [address] [facility]. [place], [place], [address] BASIC METABOLIC Collected: 01/09/2018 Status: F Source: LI PROFILE ([facility]) 7:16 PM [facility] REPOSITORY Order Comment: 'TROP' Serial specimen #1, #2, #3, or #4: 1 TYPE CODE TESTS RESULT OUT OF RANGE REFERENCE UNITS LAB L501.0100 74-106 mg/dL High GLU 315 Result Comment: Glucose result greater than or equal to 200 mg/dL suggests DIABETES MELLITUS per A.D.A. criteria. Please note revised GLUCOSE reference range effective 2017. LAB L501.1000 7-18 mg/dL Normal BUN 14 LAB L501.1100 0.55-1.02 mg/dL Normal CREAT,SERUM 0.76 Result Comment: The validity of the calculated GFR AND GFRAA in patients over 70 years has not been determined. Clinical correlation is essential. LAB L501.1110 >60 mL/min Normal EST GFR 81 Result Comment: Non- GFR Calc LAB L501.1115 >60 mL/min Normal EST GFR - AA 98 Result Comment: GFR Calc LAB L501.1255 ml/min Normal Estimated CRCL 61.86 LAB L501.1300 10-20 RATIO Normal BUN/CRE 18.4 LAB L501.2200 8.5-10 mg/dL Normal .1 CA 8.7 LAB L501.5300 136-14 mmol/L Low 5 NA 135 LAB L501.5600 3.5-5. mmol/L Normal 1 K 4.0 Result Comment: Moderate Hemolysis, Result may be falsely increased. LAB L501.5900 98-107 mmol/L Normal CL 104 LAB L501.6100 21.0-32.0 mmol/L Normal CO2 23.0 LAB L501.6200 5-15 Normal 8 GAP Performed By: #### L500.2500, L501.4010 #### [facility] [address] [facility]. [place], [place], [address] TROPONIN-I Collected: 01/09/2018 Status: F Source: [place] 7:16 PM [facility] REPOSITORY Order Comment: 'TROP' Serial specimen #1, #2, #3, or #4: 1 TYPE CODE TESTS RESULT OUT OF RANGE REFERENCE UNITS LAB L501.4010 <0.06 ng/mL Normal < 0.02 TROPONIN-I Result Comment: TROPONIN-I EXPECTED VALUES <0.05 NEGATIVE 0.06 - 0.59 AT RISK OF VT > OR = 0.60 SUGGEST VT Performed By: #### L500.2500, L501.4010 #### [facility] [address] [facility]. [place], [place], [address] Observed: 01/06/2018 Status: F Source: [place] [employer] [facility] 11:18 PM [facility] REPOSITORY . MICRO - Microbiology PROCEDURE: Beta Strep Antigen with Cult if Ind [*1] SOURCE: Throat BODY SITE: COLLECTED DATE/TIME: 01/06/2018 23:18 EDT RECEIVED DATE/TIME: 01/06/2018 23:20 EDT START DATE/TIME: 01/06/2018 23:21 EDT FREE TEXT SOURCE: FINAL REPORTS Final Report [] Verified Date/Time/Personnel: 01/06/2018 23:31 EDT Antigen Screen: Negative for Group A Strep. Culture confirmation to follow. COMMENT: Recommendations suggest that all negative results be confirmed with culture. Performing Locations *1: This test was performed at: [address], [id number] [place] [address] Performed By: #### BSA #### [place] [address] Observed: 01/06/2018 Status: F Source: COUNTS INCLUDE 234 BEDS AT [facility] 11:10 PM [facility] REPOSITORY . MICRO - Microbiology PROCEDURE: Culture Beta Strep Only [O1 *1] SOURCE: Throat BODY SITE: COLLECTED DATE/TIME: 01/06/2018 23:10 EDT RECEIVED DATE/TIME: 01/06/2018 23:31 EDT START DATE/TIME: 01/06/2018 23:31 EDT FREE TEXT SOURCE: FINAL REPORTS Final Report [] Verified Date/Time/Personnel: 01/10/2018 12:27 EDT Light Beta Hemolytic Streptococci, Group F Sensitivity testing not indicated. PRELIMINARY REPORTS Preliminary Report [] Verified Date/Time/Personnel: 01/09/2018 07:37 EDT Culture results pending. Preliminary Report [] Verified Date/Time/Personnel: 01/08/2018 09:59 EDT No beta Strep isolated at 24 hours. Order Comments O1: Culture Beta Strep Only Order added by [email or web address] Performing Locations *1: This test was performed at: [address], [address] [place] [address] Performed By: #### BSO #### [address] [address] 12 LEAD ELECTROCARDIOGRAM Observed: 01/05/2018 Status: F Source: [place] 2:48 PM [facility] REPOSITORY [facility] Cardiovascular Services [address] [place] [address] 12 Lead EKG 01/02/18 1547 MR#: [id number] Acct: [id number] Name: DANIELLE MARY Rep #: [id number] : 1955 62 From: Charlie Hernandez MD Attending Dr: Status: DEP ER Ordering Dr: Rene Franco MD Date: 01/02/18 Location: ED Sex: F C Admitted: Test Reason : SORE THROAT Blood Pressure : / mmHG Vent. Rate : 082 BPM Atrial Rate : 082 BPM P-R Int : 144 ms QRS Dur : 080 ms QT Int : 392 ms P-R-T Axes : 035 012 027 degrees QTc Int : 457 ms Normal sinus rhythm Normal ECG Confirmed by CHARLIE HERNANDEZ MD ([id number]), web content editor ELI HASKINS ([id number]) on 01/05/2018 2:47:50 PM Referred By: RONAK Confirmed By:CHARLIE HERNANDEZ MD 01/05/18 1447 Date Charlie Hernandez MD CC: Selvin VILLATORO; Rene Franco MD Signed 12 LEAD ELECTROCARDIOGRAM Observed: 01/03/2018 Status: F Source: [place] 1:39 PM [facility] Cardiovascular Services [address] [place] [address] 12 Lead EKG 12/30/172016 MR#: [id number] Acct: [id number] Name: DANIELLE MARY Rep #: [id number] : 1955 62 From: Charlie Hernandez MD Attending Dr: Status: DEP ER Ordering Dr: Rene Franco MD Date: 12/30/17 Location: ED Sex: F C Admitted: Test Reason : CHEST PAIN Blood Pressure : / mmHG Vent. Rate : 083 BPM Atrial Rate : 083 BPM P-R Int : 146 ms QRS Dur : 074 ms QT Int : 398 ms P-R-T Axes : 050 032 040 degrees QTc Int : 467 ms Normal sinus rhythm Normal ECG Confirmed by CHARLIE HERNANDEZ MD ([id number]), web content editor ELI HASKINS ([id number]) on 01/03/2018 1:38:39 PM Referred By: RONAK Confirmed By:CHARLIE HERNANDEZ MD 01/03/181337 Date Charlie Hernandez MD CC: Selvin VILLATORO; Rene Franco MD Signed 12 LEAD ELECTROCARDIOGRAM Observed: 01/03/2018 Status: F Source: [place] 1:39 PM [facility] REPOSITORY [facility] Cardiovascular Services [address] [place] [address] 12 Lead EKG 12/30/17 2113 MR#: [id number] Acct: [id number] Name: DANIELLE MARY Rep #: [id number] : 1955 62 From: Charlie Hernandez MD Attending Dr: Status: DEP ER Ordering Dr: Rene Franco MD Date: 12/30/17 Location: ED Sex: F C Admitted: Test Reason : REPEAT Blood Pressure : / mmHG Vent. Rate : 072 BPM Atrial Rate : 072 BPM P-R Int : 156 ms QRS Dur : 082 ms QT Int : 432 ms P-R-T Axes : 046 019 022 degrees QTc Int : 473 ms Normal sinus rhythm Normal ECG Confirmed by MARY BARFIELD, CHARLIE ([id number]), web content editor ELI HASKINS ([id number]) on 01/03/2018 1:38:54 PM Referred By: RONAK Confirmed By:CHARLIE HERNANDEZ MD 01/03/181337 Date Charlie Hernandez MD CC: Selvin VILLATORO; Rene Franco MD Signed EMERGENCY DEPARTMENT Observed: 01/02/2018 Status: F Source: LI SUMMARY 11:56 PM [facility] REPOSITORY [facility] Medical Records Department [address] [place] [address] Emergency Department Summary 01/02/18 1538 MR#: [id number] Acct: [id number] Name: DANIELLE MARY Rep #: [id number] : 1955 62 From: Rene Franco MD PCP: Selvin Vega Status: DEP ER - ER Visit Summary Date of Service: 01/02/18 Chief Complaint: Sore throat, trouble swallowing History of Present Illness: The patient is a 62 F with significant history of diabetes, coronary vascular disease, and hypertension presents with sore throat. Actually saw this patient 3 nights ago for chest pain. She states her pain has been markedly improved. She has began to have pain in her throat down into her top of her sternum. She states it hurts when she swallows. She states that she had some nausea and vomiting. She states that anything she swallows causes significant pain. The patient is a very poorly controlled diabetic. She states she has not checked her sugars today. States yesterday was 126. She denies any history of thrush. She denies any fevers or chills. The patient does smoke. She denies any change in voice. She denies any trismus. Physical Examination: Vital signs reviewed General: Well-nourished, well-developed Head: Normocephalic, atraumatic Eyes: Pupils equal and reactive, extraocular muscles intact ENT: Patient has adherent white plaques in the posterior oropharynx consistent with thrush. No evidence of retropharyngeal peritonsillar abscess. Neck supple. Neck, supple, no lymphadenopathy Heart: Regular rate and rhythm Respiratory: No distress, clear bilaterally Abdomen: Soft, nontender, nondistended, no peritoneal signs Back: Nontender Extremities: Nontender, no edema, no cords Skin: Normal color no rash Neuro: Alert and oriented, no focal or lateralizing deficits Test Results: EKG demonstrates sinus rhythm without acute ischemic change. Screening labs are unremarkable. Patient is hyperglycemic. X-ray of the chest and soft tissue neck are unremarkable. Emergency Department Course and Treatment: She does appear to have evidence of thrush. She is a poorly controlled diabetic. I do feel that this is what is causing her symptoms. However, given her history of coronary vascular disease, I did obtain an EKG, chest x-ray, and cardiac enzymes. She has had the pain persistently for greater than 12 hours. She has negative cardiac enzymes. I do feel this effectively rules her out for acute coronary syndrome. Rapid strep was negative. Plain films were unremarkable. At this time, I am going to treat the patient with nystatin swish and follow. I did residential substance abuse counselor her on controlling her blood sugar as I do feel this is the reason that she has had these. The patient will be discharged, to follow-up with her PCP and discuss blood sugar control. Treatment Plan: [] Disposition: Discharge Impression:. Oral thrush 2. Hyperglycemia This note was generated with [employer] dictation software. It may contain incorrect words, spelling, and punctuation that were not noted in review of the chart prior to signing ED Disposition - Plan for ED Patient: Chief Complaint: Sore Throat Instructions: ED Oral Infec Fungal Clarita Ch Prescriptions: Ondansetron [Zofran Odt] 4 mg PO Q8H PRN PRN #10 tab PRN Reason: Nausea Nystatin 500,000 unit PO 4X/DAY #40 [facility] Referrals: Selvin Sifuentes, NURSE ORTHOPAEDIC-C [Primary Care Provider] - What to do if you have Problems For any increased pain, shortness of breath, bleeding, nausea or vomiting, chest pain, or any unexpected problems, contact your Primary Care Provider. Call [facility] ([phone]) or report to the closest Emergency Room. Call 911 if necessary. 01/02/18 0947 <Electronically signed by Rene Franco MD> Date Rene Franco MD Cosigner Signature (If Indicated): Date CC: Selvin VILLATORO CBC W/DIFF, AUTOMATED Collected: 01/02/2018 Status: F Source: [place] 3:45 PM [facility] REPOSITORY TYPE CODE TESTS RESULT OUT OF RANGE REFERENCE UNITS LAB L100.1000 4.4-11.0 K/mm3 Normal WBC 8.1 LAB L100.1200 4.2-5.4 M/mm3 Normal RBC 4.44 LAB L100.1300 12.0-15.0 g/dl Normal HGB 13.9 LAB L100.1400 37-47 % Normal HCT 40.1 LAB L100.1500 81-99 fL Normal MCV 90.3 LAB L100.1600 27.0-32.0 pg Normal MCH 31.3 LAB L100.1700 32-36 g/gl Normal MCHC 34.7 LAB L100.1810 11.6-14.6 % Normal RDW CV 12.5 LAB L100.1820 35.1-43.9 fl Normal RDW SD 40.8 LAB L100.1900 150-450 K/mm3 Normal PLT 258 LAB L100.2000 6.2-12.0 fl Normal MPV 11.2 LAB L100.2100 47-70 % Normal NEUT% 58.4 LAB L100.2200 19-41 % Normal LY% 31.1 LAB L100.2300 0-10 % Normal MONO% 6.6 LAB L100.2400 0-5 % Normal EO% 3.0 LAB L100.2500 0-1 % Normal BASO% 0.5 LAB L100.2550 0.0-0.9 % Normal IM GRAN % 0.400 Result Comment: IG% - Immature Granulocytes (promyelocytes, myelocytes and metamyelocytes) > 1% indicates that a LEFT SHIFT is Present. LAB L100.2620 2.0-7.7 X10 3/uL Normal Absolute Neut 4.7 LAB L100.2720 0.83-4.51 X10 3/ul Normal Absolute Lymph 2.50 Performed By: #### L100.0100 #### [facility] [address] [place] [address]. [place], [place], [address] BASIC METABOLIC Collected: 01/02/2018 Status: F Source: [place] PROFILE (BMP) 3:45 PM [facility] REPOSITORY Order Comment: 'TROP' Serial specimen #1, #2, #3, or #4: 1 TYPE CODE TESTS RESULT OUT OF RANGE REFERENCE UNITS LAB L501.0100 74-106 mg/dL High GLU 424 Result Comment: Glucose result greater than or equal to 200 mg/dL suggests DIABETES MELLITUS per A.D.A. criteria. Please note revised GLUCOSE reference range effective 2017. LAB L501.1000 7-18 mg/dL Normal BUN 15 LAB L501.1100 0.55-1.02 mg/dL Normal CREAT,SERUM 0.84 Result Comment: The validity of the calculated GFR AND GFRAA in patients over 70 years has not been determined. Clinical correlation is essential. LAB L501.1110 >60 mL/min Normal EST GFR 73 Result Comment: Non- GFR Calc LAB L501.1115 >60 mL/min Normal EST GFR - AA 88 Result Comment: GFR Calc LAB L501.1255 ml/min Normal Estimated CRCL 55.97 LAB L501.1300 10-20 RATIO Normal BUN/CRE 18.0 LAB L501.2200 8.5-10 mg/dL Normal .1 CA 9.1 LAB L501.5300 136-14 mmol/L Low 5 NA 135 LAB L501.5600 3.5-5. mmol/L Normal 1 K 4.1 LAB L501.5900 98-107 mmol/L Normal CL 102 LAB L501.6100 21.0-3 mmol/L Normal 2.0 CO2 23.0 LAB L501.6200 5-15 Normal GAP 10 Performed By: #### L500.2500, L501.4010 #### [facility] [address] [facility]. [place], [place], [id number] TROPONIN-I Collected: 01/02/2018 Status: F Source: [place] 3:45 PM [facility] REPOSITORY Order Comment: 'TROP' Serial specimen #1, #2, #3, or #4: 1 TYPE CODE TESTS RESULT OUT OF RANGE REFERENCE UNITS LAB L501.4010 <0.06 ng/mL Normal < 0.02 TROPONIN-I Result Comment: TROPONIN-I EXPECTED VALUES <0.05 NEGATIVE 0.06 - 0.59 AT RISK OF VT > OR = 0.60 SUGGEST VT Performed By: #### L500.2500, L501.4010 #### [facility] [address] [facility] [place], [place], [id number] Observed: 01/02/2018 Status: F Source: LI STREP A (THROAT 3:42 PM [facility] RAPID [facility]) REPOSITORY Order Date: 01/02/18 Has pt arrived? Y Strep A Rapid Rapid Strep A Screen NEGATIVE A Disk (Conf. Cult) Negative for Strep Group A : All NEGATIVE screens will be confirmed with a culture. Performed By: #### M100.676 #### [facility] [address] [place], [address] CHEST 1 VIEW Observed: 01/02/2018 Status: F Source: LI (PORTABLE) 3:37 PM [facility] REPOSITORY [facility] Imaging Services [address] [place] [address] Chest 1 View (Portable) MR#: [id number] Acct: [id number] Name: DANIELLE MARY Rep #: [id number] : 1955 F 62 From: Walker Vale MD PCP: Selvin Vega Status: REG ER Study: Chest 1 View (Portable) Date of Exam: 01/02/18 Exam# [id number] Ordering Dr: Rene Franco MD STUDY: X-RAY CHEST REASON FOR EXAM: Female, 62 years old. Esophageal pain TECHNIQUE: PA COMPARISON: December 30, 2017 FINDINGS: Diminished inspiratory effort is seen and there is minor interstitial thickening in both lower lobes. No focal infiltrates are observed.. There is no demonstrated pleural abnormality. Normal size heart. Normal mediastinum and jovan. Normal visualized pulmonary arteries. Normal visualized aortic arch and descending thoracic aorta. Normal visualized thoracic spine. Normal visualized ribs, clavicles, and shoulders. There is no demonstrated abnormality of the visualized soft tissue structures of the upper abdomen. RAD/Chest 1 View (Portable) IMPRESSION: Diminished inspiratory effort and mild interstitial thickening in the lower lobes Electronically Signed: Walker Vale MD at 16:22 EDT , Service support , CC: Selvin VILLATORO; Rene Franco MD School Psychologist Assistant: Signed NECK FOR SOFT Observed: 01/02/2018 Status: F Source: [place] TISSUE 3:37 PM [facility] REPOSITORY [facility] Imaging Services [address] [place] [address] Neck for Soft Tissue MR#: [id number] Acct: [id number] Name: DANIELLE MARY Rep #: [id number] : 1955 F 62 From: Walker Vale MD PCP: Selvin Vega Status: REG ER Study: Neck for Soft Tissue Date of Exam: 01/02/18 Exam# [id number] Ordering Dr: Rene Franco MD STUDY: X-RAY - SOFT TISSUE NECK REASON FOR EXAM: Female, 62 years old. Esophageal pain TECHNIQUE: 2 view(s) of the neck were obtained. COMPARISON: None. FINDINGS: Normal visualized nasopharynx, oropharynx, hypopharynx. Normal epiglottis. Normal visualized subglottic tracheal air column. Normal prevertebral soft tissue structures. Cervical spine demonstrates mild spondylosis The soft tissue structures are unremarkable. RAD/Neck for Soft Tissue IMPRESSION: Mild cervical spondylosis. No other significant abnormality Electronically Signed: Walker Vale MD at 16:22 EDT , Service support , CC: Selvin VILLATORO; Rene Franco MD School Psychologist Assistant: Signed BEDSIDE GLUCOSE Collected: 12/30/2017 Status: F Source: [place] 11:57 PM [facility] REPOSITORY TYPE CODE TESTS RESULT OUT OF REFERENCE UNITS RANGE LAB L501.080 70-110 mg/dL High BEDSIDE GLU 115 Result Comment: MANAGEMENT OF PATIENT CARE PER NURSING PROTOCOL Performed By: #### L501.080 #### [facility] Point of Care [address] [facility] [place] [address] EMERGENCY DEPARTMENT Observed: 12/30/2017 Status: F Source: [place] SUMMARY 11:52 PM [facility] REPOSITORY [facility] Medical Records Department [address] [place] [address] Emergency Department Summary 12/30/172025 MR#: [id number] Acct: [id number] Name: DANIELLE MARY Rep #: [id number] : 1955 62 From: Rene Franco MD PCP: Selvin Vega Status: REG ER - ER Visit Summary Date of Service: 12/30/17 Chief Complaint: Chest pain History of Present Illness: The patient is a 62 F history of coronary vascular disease status post stents, diabetes, hypertension, and anxiety presents to the emergency department chest pain. Patient states she was in her normal state of health. She states that she was cleaning her house today. She states she had an arrest and had sudden onset pain. She describes it as sharp sensation across her left chest into her arm. She denies shortness of breath. She does admit to nausea and vomiting. The patient states she has been compliant with all of her medications. She is a poorly controlled diabetic. She states that she is taking her Plavix every day and has not missed any doses. She did get 2 nitro which did not change her pain. She is on complaining of a mild headache. The patient does follow with Dr. Quesada. Her last heart catheterization was in September 2017 which showed patent vessels. The patient has been seen here multiple times for similar complaints over the past 3 months. Physical Examination: Vital signs reviewed General: Well-nourished, well-developed Head: Normocephalic, atraumatic Eyes: Pupils equal and reactive, extraocular muscles intact Neck, supple, no lymphadenopathy Heart: Regular rate and rhythm Respiratory: No distress, clear bilaterally Abdomen: Soft, nontender, nondistended, no peritoneal signs Back: Nontender Extremities: Nontender, no edema, no cords Skin: Normal color no rash Neuro: Alert and oriented, no focal or lateralizing deficits Test Results: [] Emergency Department Course and Treatment: The patient presents with chest pain. She does have a history of coronary vascular disease. Her initial EKG shows no acute ischemic change. The patient was given nitro with no improvement. She was given morphine with some improvement. The patient was having what appeared to be artifact on the monitor. The monitor read as V. tach, but the patient did have visible QRS in his complexes. I did repeat her EKG and there was no progression. Actually sent the patient's EKGs and monitor strip to Dr. Hernandez who reviewed them. He does agree that this is artifact. At this time, given the patient's recent negative heart catheterization, recent admission with negative cardiac enzymes without intervention, and now resolution of pain after analgesics I do feel that she is appropriate for delta troponin testing. The patient will undergo repeat cardiac enzymes. These are negative, she will be discharged to follow-up with cardiology. She was significantly hyperglycemic on arrival. She was given fluids and insulin and her sugar has improved. On reevaluation, she is resting comfortably without pain. Repeat troponin is negative. After discussion with cardiology, I do feel this patient can safely be discharged home. She will follow up with Dr. Quesada. She will return with any worsening pain. Treatment Plan: [] Disposition: Discharge Impression: 1. Chest pain 2. Hyperglycemia This note was generated with [employer] dictation software. It may contain incorrect words, spelling, and punctuation that were not noted in review of the chart prior to signing ED Disposition - Plan for ED Patient: Chief Complaint: Chest Pain Instructions: ED Chest Pain Atypical Unkn Cause Referrals: Selvin Sifuentes, NURSE ORTHOPAEDIC-C [Primary Care Provider] - What to do if you have Problems For any increased pain, shortness of breath, bleeding, nausea or vomiting, chest pain, or any unexpected problems, contact your Primary Care Provider. Call [facility] ([phone]) or report to the closest Emergency Room. Call 911 if necessary. 12/30/17 2256 <Electronically signed by Rene Franco MD> Date Rene Franco MD Cosigner Signature (If Indicated): Date CC: Selvin VILLATORO TROPONIN-I Collected: 12/30/2017 Status: F Source: [place] 11:11 PM [facility] [facility] Order Comment: Comments: Should be drawn 2H after initial Troponin obtained 'TROP' Serial specimen #1, #2, #3, or #4: 2 TYPE CODE TESTS RESULT OUT OF RANGE REFERENCE UNITS LAB L501.4010 <0.06 ng/mL Normal < 0.02 TROPONIN-I Result Comment: TROPONIN-I EXPECTED VALUES <0.05 NEGATIVE 0.06 - 0.59 AT RISK OF VT > OR = 0.60 SUGGEST VT Performed By: #### L501.4010 #### [facility] [address] [place], [place], [address] BEDSIDE GLUCOSE Collected: 12/30/2017 Status: F Source: [place] 10:32 PM [facility] REPOSITORY TYPE CODE TESTS RESULT OUT OF REFERENCE UNITS RANGE LAB L501.080 70-110 mg/dL High BEDSIDE GLU 364 Result Comment: MANAGEMENT OF PATIENT CARE PER NURSING PROTOCOL Performed By: #### L501.080 #### [facility] Point of Care [address] [place] [address] BEDSIDE GLUCOSE Collected: 12/30/2017 Status: F Source: [place] 10:16 PM [facility] REPOSITORY TYPE CODE TESTS RESULT OUT OF REFERENCE UNITS RANGE LAB L501.080 70-110 mg/dL High BEDSIDE GLU 374 Result Comment: MANAGEMENT OF PATIENT CARE PER NURSING PROTOCOL Performed By: #### L501.080 #### [facility] Point of Care [address] [facility] [place] [address] CBC W/DIFF, AUTOMATED Collected: 12/30/2017 Status: F Source: [place] 8:29 PM [facility] REPOSITORY TYPE CODE TESTS RESULT OUT OF RANGE REFERENCE UNITS LAB L100.1000 4.4-11.0 K/mm3 Normal WBC 8.7 LAB L100.1200 4.2-5.4 M/mm3 Normal RBC 4.33 LAB L100.1300 12.0-15.0 g/dl Normal HGB 13.3 LAB L100.1400 37-47 % Normal HCT 38.9 LAB L100.1500 81-99 fL Normal MCV 89.8 LAB L100.1600 27.0-32.0 pg Normal MCH 30.7 LAB L100.1700 32-36 g/gl Normal MCHC 34.2 LAB L100.1810 11.6-14.6 % Normal RDW CV 12.6 LAB L100.1820 35.1-43.9 fl Normal RDW SD 40.5 LAB L100.1900 150-450 K/mm3 Normal PLT 242 LAB L100.2000 6.2-12.0 fl Normal MPV 11.3 LAB L100.2100 47-70 % Normal NEUT% 54.8 LAB L100.2200 19-41 % Normal LY% 35.4 LAB L100.2300 0-10 % Normal MONO% 6.6 LAB L100.2400 0-5 % Normal EO% 2.7 LAB L100.2500 0-1 % Normal BASO% 0.2 LAB L100.2550 0.0-0.9 % Normal IM GRAN % 0.300 Result Comment: IG% - Immature Granulocytes (promyelocytes, myelocytes and metamyelocytes) > 1% indicates that a LEFT SHIFT is Present. LAB L100.2620 2.0-7.7 X10 3/uL Normal Absolute Neut 4.7 LAB L100.2720 0.83-4.51 X10 3/ul Normal Absolute Lymph 3.06 Performed By: #### L100.0100 #### [facility] [address] [place], [place], [address] BASIC METABOLIC Collected: 12/30/2017 Status: F Source: [place] PROFILE ([facility]) 8:29 PM [facility] REPOSITORY Order Comment: 'TROP' Serial specimen #1, #2, #3, or #4: 1 TYPE CODE TESTS RESULT OUT OF RANGE REFERENCE UNITS LAB L501.0100 74-106 mg/dL High alert GLU 561 Result Comment: Critical Result(s) Called BETTYE [id number]: 19:53:15 12/30/2017 by: FREDDY STOKES Glucose result greater than or equal to 200 mg/dL suggests DIABETES MELLITUS per A.D.A. criteria. Please note revised GLUCOSE reference range effective 2017. LAB L501.1000 7-18 mg/dL Normal BUN 9 LAB L501.1100 0.55-1.02 mg/dL Normal CREAT,SERUM 0.87 Result Comment: The validity of the calculated GFR AND GFRAA in patients over 70 years has not been determined. Clinical correlation is essential. LAB L501.1110 >60 mL/min Normal EST GFR 70 Result Comment: Non- GFR Calc LAB L501.1115 >60 mL/min Normal EST GFR - AA 84 Result Comment: GFR Calc LAB L501.1255 ml/min Normal Estimated CRCL 54.04 LAB L501.1300 10-20 RATIO Normal BUN/CRE 10.3 LAB L501.2200 8.5-10 mg/dL Normal .1 CA 8.8 LAB L501.5300 136-14 mmol/L Low 5 NA 134 LAB L501.5600 3.5-5. mmol/L Normal 1 K 3.8 LAB L501.5900 98-107 mmol/L Normal CL 103 LAB L501.6100 21.0-3 mmol/L Low 2.0 CO2 20.0 LAB L501.6200 5-15 Normal GAP 11 Performed By: #### L500.2500, L501.4010 #### [facility] [address] [facility] [place], [place], [id number] TROPONIN-I Collected: 12/30/2017 Status: F Source: [place] 8:29 PM [facility] REPOSITORY Order Comment: 'TROP' Serial specimen #1, #2, #3, or #4: 1 TYPE CODE TESTS RESULT OUT OF RANGE REFERENCE UNITS LAB L501.4010 <0.06 ng/mL Normal < 0.02 TROPONIN-I Result Comment: TROPONIN-I EXPECTED VALUES <0.05 NEGATIVE 0.06 - 0.59 AT RISK OF VT > OR = 0.60 SUGGEST VT Performed By: #### L500.2500, L501.4010 #### [facility] [address] [place], [place], [address] BNP,B-TYPE NATRIURETIC Collected: 12/30/2017 Status: F Source: [place] 8:29 PM [facility] REPOSITORY TYPE CODE TESTS RESULT OUT OF RANGE REFERENCE UNITS LAB L503.6620 0-100 pg/mL Normal B-TYPE 31.6 HUNTER PEP Performed By: #### L503.6620 #### [facility] [address] [place], [place], [address] BEDSIDE GLUCOSE Collected: 12/30/2017 Status: F Source: [place] 8:21 PM [facility] REPOSITORY TYPE CODE TESTS RESULT OUT OF REFERENCE UNITS RANGE LAB L501.080 70-110 mg/dL High alert BEDSIDE GLU > 500 Result Comment: Orders Followed MANAGEMENT OF PATIENT CARE PER NURSING PROTOCOL Performed By: #### L501.080 #### [facility] Point of Care [address] [place] [address] CHEST 1 VIEW Observed: 12/30/2017 Status: F Source: [place] (PORTABLE) 8:21 PM [facility] REPOSITORY [facility] Imaging Services [address] [place] [address] Chest 1 View (Portable) MR#: [id number] Acct: [id number] Name: DANIELLE MARY Rep #: [id number] : 1955 F 62 From: Joni Lopez DO PCP: Selvin Vega Status: REG ER Study: Chest 1 View (Portable) Date of Exam: 12/30/17 Exam# [id number] Ordering Dr: Rene Franco MD STUDY: X-RAY CHEST REASON FOR EXAM: Female, 62 years old. Chest pain. TECHNIQUE: Single AP portable view of the chest. COMPARISON: None. FINDINGS: The lungs are clear and expanded. There is no demonstrated pleural abnormality. Normal size heart. Normal mediastinum and jovan. Normal visualized pulmonary arteries. Normal visualized aortic arch and descending thoracic aorta. Normal visualized thoracic spine. Normal visualized ribs, clavicles, and shoulders. There is no demonstrated abnormality of the visualized soft tissue structures of the upper abdomen. RAD/Chest 1 View (Portable) IMPRESSION: No evidence of acute cardiopulmonary process. Electronically Signed: Joni Lopez DO at 21:14 EDT , Service support , CC: Selvin VILLATORO; Rene Franco MD School Psychologist Assistant: Signed 12 LEAD ELECTROCARDIOGRAM Observed: 12/13/2017 Status: F Source: [place] 2:32 PM [facility] REPOSITORY [facility] Cardiovascular Services [address] [place] [address] 12 Lead EKG 12/12/17 1724 MR#: [id number] Acct: [id number] Name: DANIELLE MARY Rep #: [id number] : 1955 62 From: Charlie Hernandez MD Attending Dr: Status: DEP ER Ordering Dr: Walker Ross MD Date: 12/12/17 Location: ED Sex: F C Admitted: Test Reason : CP Blood Pressure : / mmHG Vent. Rate : 080 BPM Atrial Rate : 080 BPM P-R Int : 150 ms QRS Dur : 078 ms QT Int : 400 ms P-R-T Axes : 047 031 032 degrees QTc Int : 461 ms Normal sinus rhythm Normal ECG Confirmed by CHARLIE HERNANDEZ MD ([id number]), web content editor ELI HASKINS ([id number]) on 12/13/2017 2:31:36 PM Referred By: KONG Confirmed By:CHARLIE HERNANDEZ MD 12/13/17 1431 Date Charlie Hernandez MD CC: Walker Ross MD; Selvin VILLATORO Signed 12 LEAD ELECTROCARDIOGRAM Observed: 12/13/2017 Status: F Source: [place] 2:31 PM [facility] REPOSITORY [facility] Cardiovascular Services [address] [place] [address] 12 Lead EKG 12/12/17 1859 MR#: [id number] Acct: [id number] Name: DANIELLE MARY Rep #: [id number] : 1955 62 From: Charlie Hernandez MD Attending Dr: Status: DEP ER Ordering Dr: Richard Harris P. Date: 12/12/17 Location: ED Sex: F C Admitted: Test Reason : Blood Pressure : / mmHG Vent. Rate : 081 BPM Atrial Rate : 081 BPM P-R Int : 152 ms QRS Dur : 084 ms QT Int : 410 ms P-R-T Axes : 053 039 045 degrees QTc Int : 476 ms Sinus rhythm with Premature atrial complexes Otherwise normal ECG Confirmed by CHARLIE HERNANDEZ MD ([id number]), web content editor ELI HASKINS ([id number]) on 12/13/2017 2:31:21 PM Referred By: Confirmed By:CHARLIE HERNANDEZ MD 12/13/17 1431 Date Charlie Hernandez MD CC: ED PHYSICIAN PROVIDER; Selvin VILLATORO Signed EMERGENCY DEPARTMENT Observed: 12/12/2017 Status: F Source: [place] SUMMARY 11:38 PM [facility] REPOSITORY [facility] Medical Records Department [address] [facility] [place] [address] Emergency Department Summary 12/12/17 1758 MR#: [id number] Acct: [id number] Name: DANIELLE MARY Rep #: [id number] : 1955 62 From: Walker Ross MD PCP: Selvin Vega Status: DEP ER - ER Visit Summary Date of Service: 12/12/17 Chief Complaint: Chest pain History of Present Illness: The patient is a 62 F no history of CAD with a prior VT and 5 cardiac stents. Also history of insulin-dependent diabetes, hypertension and COPD. She had a PE multiple years ago. Patient states that the last 3 hours she has had chest pain. She said was after family argument. Then she ate some chicken and has had lower sternal chest heaviness radiating to her left neck. She took 2 nitro's at home without any relief. She denies any hemoptysis. No recent travel or surgery. No calf pain. She was hospitalized 3-4 weeks ago here at [place]. Physical Examination: Vital signs are stable afebrile. Pulse ox 90% room air no signs of hypoxia. She is in no distress. H EENT exam unremarkable. Neck nontender no JVD. Lungs clear to auscultation bilaterally. No rales rhonchi or wheezing. Equal symmetrical. Abdomen is soft nontender nondistended no giving or masses. Normal bowel sounds no peritoneal signs. The epigastric, right upper quadrant right lower quadrants are unremarkable. No Salas sign. She is moving all 4 extremities. Neurovascular intact. Calves nontender without edema or cords. Neurologic exam is awake and alert without any focal neurologic deficits. Test Results: Chest x-ray shows no acute abnormality read both myself and the radiologist. Normal cardiac silhouette. He is sinus rhythm rate 80 with no acute abnormality. A repeat EKG was done again shows sinus rhythm rate of 80 with no acute abnormality and no change from the first. No signs of VT or ischemia. CBC normal. BMP unremarkable other than a glucose of 515. Normal gap. Liver enzymes normal. Lipase normal. Troponin normal second troponin II hours after the first was again normal. Emergency Department Course and Treatment: Undergo cardiac workup be treated with sublingual nitroglycerin. Patient refused further sublingual nitroglycerin she had taken 2 prior to arrival which gave her no relief. She was given morphine and Zofran improved her pain. Multiple repeat exam she is doing well. Last exam was around 2100. Patient is a normal workup. She has been given insulin her blood sugar be rechecked and she will be discharged to home. Treatment Plan: Follow-up with her primary care physician Dr. Rocco Quesada as soon as possible. And her primary care provider at the [facility] clinic. Disposition: discharge Impression: Acute chest pain uncertain etiology Acute hyperglycemia History of CAD with 5 cardiac stents History of insulin-dependent diabetes, hypertension and COPD This note was generated with [employer] dictation software. It may contain incorrect words, spelling, and punctuation that were not noted in review of the chart prior to signing ED Disposition - Plan for ED Patient: Chief Complaint: Chest Pain Referrals: Selvin Sifuentes N[facility] [Primary Care Provider] - What to do if you have Problems For any increased pain, shortness of breath, bleeding, nausea or vomiting, chest pain, or any unexpected problems, contact your Primary Care Provider. Call [facility] ([phone]) or report to the closest Emergency Room. Call 911 if necessary. 12/12/17 3438 <Electronically signed by Walker Ross MD> Date Walker Ross MD Cosigner Signature (If Indicated): Date CC: Selvin VILLATORO DISCHARGE INSTRUCTION Observed: 12/12/2017 Status: F Source: [place] 11:38 PM [facility] REPOSITORY [facility] Medical Records Department [address] [place] [address] Discharge Instruction 12/12/173 MR#: [id number] Acct: [id number] Name: DANIELLE MARY Rep #: [id number] : 1955 62 From: Walker Ross MD PCP: Selvin Vega Status: DEP ER ED Disposition - Plan for ED Patient: Disposition: Home or Assisted Living Chief Complaint: Chest Pain Instructions: ED Chest Pain Atypical Unkn Cause Referrals: Selvin Sifuentes, [facility] [Primary Care Provider] - As soon as possible Sam Quesada MD [STAFF PHYSICIAN] - As soon as possible Additional Instructions: On follow-up with Dr. Quesada for your chest pain as soon as possible. Call and follow-up with [facility] as soon as possible for your blood sugars. Check your blood sugar tonight prior to going to bed. Take her normal insulin dose prior to going to bed as long as her blood sugars greater than 100. Return to ER if you are feeling worse. What to do if you have Problems For any increased pain, shortness of breath, bleeding, nausea or vomiting, chest pain, or any unexpected problems, contact your Primary Care Provider. Call [facility] ([phone]) or report to the closest Emergency Room. Call 911 if necessary. 12/12/17 7428 <Electronically signed by Walker Ross MD> Date Walker Ross MD Cosigner Signature (If Indicated): Date CC: Selvin VILLATORO TROPONIN-I Collected: 12/12/2017 Status: F Source: [place] 7:25 PM [facility] REPOSITORY Order Comment: Has pt arrived? Y 'TROP' Serial specimen #1, #2, #3, or #4: 2 TYPE CODE TESTS RESULT OUT OF RANGE REFERENCE UNITS LAB L501.4010 <0.06 ng/mL Normal < 0.02 TROPONIN-I Result Comment: TROPONIN-I EXPECTED VALUES <0.05 NEGATIVE 0.06 - 0.59 AT RISK OF VT > OR = 0.60 SUGGEST VT Performed By: #### L501.4010 #### [facility] [address] [place], [place], [address] CBC W/DIFF, AUTOMATED Collected: 12/12/2017 Status: F Source: [place] 5:25 PM [facility] REPOSITORY TYPE CODE TESTS RESULT OUT OF RANGE REFERENCE UNITS LAB L100.1000 4.4-11.0 K/mm3 Normal WBC 6.8 LAB L100.1200 4.2-5.4 M/mm3 Normal RBC 4.77 LAB L100.1300 12.0-15.0 g/dl Normal HGB 14.8 LAB L100.1400 37-47 % Normal HCT 43.6 LAB L100.1500 81-99 fL Normal MCV 91.4 LAB L100.1600 27.0-32.0 pg Normal MCH 31.0 LAB L100.1700 32-36 g/gl Normal MCHC 33.9 LAB L100.1810 11.6-14.6 % Normal RDW CV 12.8 LAB L100.1820 35.1-43.9 fl Normal RDW SD 42.8 LAB L100.1900 150-450 K/mm3 Normal PLT 238 LAB L100.2000 6.2-12.0 fl Normal MPV 11.3 LAB L100.2100 47-70 % Normal NEUT% 53.0 LAB L100.2200 19-41 % Normal LY% 35.6 LAB L100.2300 0-10 % Normal MONO% 6.9 LAB L100.2400 0-5 % Normal EO% 3.8 LAB L100.2500 0-1 % Normal BASO% 0.4 LAB L100.2550 0.0-0.9 % Normal IM GRAN % 0.300 Result Comment: IG% - Immature Granulocytes (promyelocytes, myelocytes and metamyelocytes) > 1% indicates that a LEFT SHIFT is Present. LAB L100.2620 2.0-7.7 X10 3/uL Normal Absolute Neut 3.6 LAB L100.2720 0.83-4.51 X10 3/ul Normal Absolute Lymph 2.42 Performed By: #### L100.0100 #### [facility] [address] [place], [address] BASIC METABOLIC Collected: 12/12/2017 Status: F Source: [place] PROFILE (BMP) 5:25 PM [facility] REPOSITORY Order Comment: 'TROP' Serial specimen #1, #2, #3, or #4: 1 TYPE CODE TESTS RESULT OUT OF RANGE REFERENCE UNITS LAB L501.0100 74-106 mg/dL High alert GLU 515 Result Comment: Critical Result(s) Called Tsering PRIEST at: 17:56:47 12/12/2017 by: FREDDY STOKES Glucose result greater than or equal to 200 mg/dL suggests DIABETES MELLITUS per A.D.A. criteria. Please note revised GLUCOSE reference range effective 2017. LAB L501.1000 7-18 mg/dL Normal BUN 14 LAB L501.1100 0.55-1.02 mg/dL High CREAT,SERUM 1.22 Result Comment: The validity of the calculated GFR AND GFRAA in patients over 70 years has not been determined. Clinical correlation is essential. LAB L501.1110 >60 mL/min Low EST GFR 47 Result Comment: Non- GFR Calc LAB L501.1115 >60 mL/min Low EST GFR - AA 57 Result Comment: GFR Calc LAB L501.1255 ml/min Normal Estimated CRCL 38.54 LAB L501.1300 10-20 RATIO Normal BUN/CRE 11.5 LAB L501.2200 8.5-10 mg/dL Normal .1 CA 9.5 LAB L501.5300 136-14 mmol/L Low 5 NA 135 LAB L501.5600 3.5-5. mmol/L Normal 1 K 4.0 LAB L501.5900 98-107 mmol/L Normal CL 101 LAB L501.6100 21.0-3 mmol/L Normal 2.0 CO2 25.0 LAB L501.6200 5-15 Normal GAP 9 Performed By: #### L500.2500, L501.4010 #### [facility] [address] [place], [address] TROPONIN-I Collected: 12/12/2017 Status: F Source: [place] 5:25 PM [facility] REPOSITORY Order Comment: 'TROP' Serial specimen #1, #2, #3, or #4: 1 TYPE CODE TESTS RESULT OUT OF RANGE REFERENCE UNITS LAB L501.4010 <0.06 ng/mL Normal < 0.02 TROPONIN-I Result Comment: TROPONIN-I EXPECTED VALUES <0.05 NEGATIVE 0.06 - 0.59 AT RISK OF VT > OR = 0.60 SUGGEST VT Performed By: #### L500.2500, L501.4010 #### [facility] [address] [facility] [place], [place], [id number] LIVER PROFILE Collected: 12/12/2017 Status: F Source: [place] 5:25 PM [facility] REPOSITORY TYPE CODE TESTS RESULT OUT OF RANGE REFERENCE UNITS LAB L501.1500 6.4-8.2 g/dL High T PROT 8.6 LAB L501.1800 3.2-5.0 g/dL Normal ALB 4.8 LAB L501.1950 2.2-4.2 g/dL Normal GLOB 3.8 LAB L501.4100 15-37 U/L Normal AST 26 LAB L501.4305 45-117 U/L Normal ALK P 82 LAB L501.4405 13-56 U/L Normal ALT 36 Result Comment: Please note revised ALT reference range effective 2017. LAB L501.4600 0.20-1.00 mg/dL Normal T BILI 0.40 LAB L501.4700 0.00-0.30 mg/dL Normal D BILI 0.08 Performed By: #### L500.3400, L501.2450 #### [facility] [address] [place], [place], [address] LIPASE Collected: 12/12/2017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 use: with watcher automat long goods use Qualified Code(s): E11.9 - Type 2 diabetes mellitus without complications; Z79.4 - terminologist (current) use of insulin History of Present Illness The patient is a 62 year old F [] Past Medical History Allergies Penicillins Allergy (Verified 11/28/17 12:54) Hives hydrocodone bitartrate [From Vicodin] Adverse Reaction (Verified 11/28/17 12:54) Vomiting ibuprofen Adverse Reaction (Verified 11/28/17 12:54) Vomiting - Physical Exam Vital Signs Temp Pulse Resp BP Pulse Ox 98.4 F 69 16 116/63 98 11/28/17 15:55 11/28/17 16:32 11/28/17 15:55 11/28/17 15:55 11/28/17 15:55 Oxygen Flow Rate 2 Oxygen Delivery Method Nasal Cannula Weight: 69.5 kg Body Mass Index (BMI) 27.1 Intake and Output for Last 24 Hours Intake Total 240 / 240 Balance 240 / 240 Laboratory Tests Past 24 Hrs Hemoglobin A1c 13.8 H Magnesium 1.8 Troponin I < 0.02 Hemoglobin A1c Magnesium Troponin I Pending POC Glucose POC Glucose 193 H Assessment/Plan Seen and examined independently of nurse practitioner, Nguyen Rain. History and physical exam and assessment and plan as per her note. Has past history of CAD, status post recent cardiac cath 2016 that was essentially normal, comes in with complaints of chest pain that radiates to her neck but not associated with diaphoresis or nausea or vomiting or shortness of breath. This was related to a recent admission to the ED by her daughter. Vitals reviewed and was stable, labs are unremarkable, physical exam is noncontributory. Chest pain is likely secondary to anxiety, noncardiac, would admit under telemetry, cycle troponins, monitor vitals closely, continue other medications with Accu-Cheks and insulin sliding scale as well as continuation of insulin. I would not recommend repeat stress test or any other cardiac workup as a recent workup of all been negative. Code Visit OBSV E AND M: [id number] Initial observation care L3 11/28/17 1618 <Electronically signed by Nguyen ROMEROC> Date Nguyen Rain NURSE ORTHOPAEDIC-C 11/28/172135<Electronically signed by Kaylee Pearson MD> Cosigner Signature: Date (if applicable) Kaylee Pearson MD CC: NURSE ORTHOPAEDIC-C Nguyen Rain; Kaylee Pearson MD; Selvin VILLATORO Signed MAGNESIUM Collected: 11/28/2017 Status: F Source: [place] 5:50 PM [facility] REPOSITORY Order Comment: Comments: as add on test TYPE CODE TESTS RESULT OUT OF RANGE REFERENCE UNITS LAB L501.5200 1.6-2.6 mg/dL Normal MG 1.8 Result Comment: Please note revised Magnesium reference range effective 2017. Performed By: #### L501.5200 #### [facility] [address] [place], [place], [id number] HEMOGLOBIN A1C Collected: 11/28/2017 Status: F Source: [place] 5:50 PM [facility] REPOSITORY TYPE CODE TESTS RESULT OUT OF RANGE REFERENCE UNITS LAB L501.9985 4.2-6.3 % High HGB A1C 13.8 Performed By: #### L501.9985 #### [facility] [address] [place], [address] BEDSIDE GLUCOSE Collected: 11/28/2017 Status: F Source: [place] 4:40 PM [facility] REPOSITORY TYPE CODE TESTS RESULT OUT OF REFERENCE UNITS RANGE LAB L501.080 70-110 mg/dL High BEDSIDE GLU 193 Result Comment: MANAGEMENT OF PATIENT CARE PER NURSING PROTOCOL Performed By: #### L501.080 #### [facility] Point of Care [address] [place] [address] EMERGENCY DEPARTMENT Observed: 11/28/2017 Status: F Source: [place] SUMMARY 3:00 PM [facility] REPOSITORY [facility] Medical Records Department [address] [place] [address] Emergency Department Summary 11/28/17 1457 MR#: [id number] Acct: [id number] Name: DANIELLE MARY Rep #: [id number] : 1955 62 From: Darlin Chavarria MD PCP: Selvin Vega Status: REG ER - ER Visit Summary Date of Service: 11/28/17 Chief Complaint: Chest pain History of Present Illness: The patient is a 62 F presenting with chest pain which began around 11:30 AM. She states that she was sweaty. She denies syncope. Pain is in her mid chest radiating to the left side of her neck. She has a history of coronary artery disease, diabetes, hypertension, hypercholesteremia, COPD. She has 4 stents. States this feels similar to her previous heart attacks. She also has a family history of heart disease. She is a previous smoker. Physical Examination: Vitals are stable. Patient is afebrile. Alert no acute distress. HEENT exam is unremarkable. Neck is supple. Lungs are clear and equal bilaterally. Heart is regular rate and rhythm. Abdomen is soft nontender nondistended. Extremities are unremarkable. Skin is warm and dry. No focal neurologic deficit. Remainder of exam is unremarkable. Emergency Department Course and Treatment: She was given aspirin on arrival. EKG is normal sinus rhythm rate of 85. Chest x-ray shows no acute abnormality. CBC, chemistries unremarkable other than creatinine 1.08, glucose 472. Troponin is negative. She is given insulin subcutaneous. Her pain has improved. Discussed with the hospitalist for admission. Disposition: Observation Impression: Chest pain, hyperglycemia This note was generated with [employer] dictation software. It may contain incorrect words, spelling, and punctuation that were not noted in review of the chart prior to signing ED Disposition - Plan for ED Patient: Chief Complaint: Chest Pain Referrals: Selvin Sifuentes, NURSE [facility]TH[facility] [Primary Care Provider] - What to do if you have Problems For any increased pain, shortness of breath, bleeding, nausea or vomiting, chest pain, or any unexpected problems, contact your Primary Care Provider. Call [facility] ([phone]) or report to the closest Emergency Room. Call 911 if necessary. 11/28/17 1500 <Electronically signed by Darlin Chavarria MD> Date Darlin Chavarria MD Cosigner Signature (If Indicated): Date CC: Selvin VILLATORO CBC W/DIFF, AUTOMATED Collected: 11/28/2017 Status: F Source: LI 1:20 PM [facility] REPOSITORY TYPE CODE TESTS RESULT OUT OF RANGE REFERENCE UNITS LAB L100.1000 4.4-11.0 K/mm3 Normal WBC 7.7 LAB L100.1200 4.2-5.4 M/mm3 Normal RBC 4.51 LAB L100.1300 12.0-15.0 g/dl Normal HGB 14.2 LAB L100.1400 37-47 % Normal HCT 40.3 LAB L100.1500 81-99 fL Normal MCV 89.4 LAB L100.1600 27.0-32.0 pg Normal MCH 31.5 LAB L100.1700 32-36 g/gl Normal MCHC 35.2 LAB L100.1810 11.6-14.6 % Normal RDW CV 12.5 LAB L100.1820 35.1-43.9 fl Normal RDW SD 40.0 LAB L100.1900 150-450 K/mm3 Normal PLT 208 LAB L100.2000 6.2-12.0 fl Normal MPV 11.4 LAB L100.2100 47-70 % Normal NEUT% 57.6 LAB L100.2200 19-41 % Normal LY% 28.9 LAB L100.2300 0-10 % Normal MONO% 8.0 LAB L100.2400 0-5 % Normal EO% 3.2 LAB L100.2500 0-1 % High BASO% 1.9 LAB L100.2550 0.0-0.9 % Normal IM GRAN % 0.400 Result Comment: IG% - Immature Granulocytes (promyelocytes, myelocytes and metamyelocytes) > 1% indicates that a LEFT SHIFT is Present. LAB L100.2620 2.0-7.7 X10 3/uL Normal Absolute Neut 4.5 LAB L100.2720 0.83-4.51 X10 3/ul Normal Absolute Lymph 2.24 Performed By: #### L100.0100 #### [facility] [address] [place], [place], [address] BASIC METABOLIC Collected: 11/28/2017 Status: F Source: [place] PROFILE (BMP) 1:20 PM [facility] REPOSITORY Order Comment: 'TROP' Serial specimen #1, #2, #3, or #4: 1 TYPE CODE TESTS RESULT OUT OF RANGE REFERENCE UNITS LAB L501.0100 74-106 mg/dL High alert GLU 472 Result Comment: Critical Result(s) Called at: 13:50:54 11/28/2017 by: Shelby Pinedo Glucose result greater than or equal to 200 mg/dL suggests DIABETES MELLITUS per A.D.A. criteria. Please note revised GLUCOSE reference range effective 2017. LAB L501.1000 7-18 mg/dL Normal BUN 14 LAB L501.1100 0.55-1.02 mg/dL High CREAT,SERUM 1.08 Result Comment: The validity of the calculated GFR AND GFRAA in patients over 70 years has not been determined. Clinical correlation is essential. LAB L501.1110 >60 mL/min Low EST GFR 54 Result Comment: Non- GFR Calc LAB L501.1115 >60 mL/min Normal EST GFR - AA 66 Result Comment: GFR Calc LAB L501.1255 ml/min Normal Estimated CRCL 43.53 LAB L501.1300 10-20 RATIO Normal BUN/CRE 13.0 LAB L501.2200 8.5-10 mg/dL Normal .1 CA 8.9 LAB L501.5300 136-14 mmol/L Low 5 NA 133 LAB L501.5600 3.5-5. mmol/L Normal 1 K 3.7 LAB L501.5900 98-107 mmol/L Low CL 97 LAB L501.6100 21.0-3 mmol/L Normal 2.0 CO2 27.0 LAB L501.6200 5-15 Normal GAP 9 Performed By: #### L500.2500, L501.4010 #### [facility] [address] [place], [address] TROPONIN-I Collected: 11/28/2017 Status: F Source: [place] 1:20 PM [facility] REPOSITORY Order Comment: 'TROP' Serial specimen #1, #2, #3, or #4: 1 TYPE CODE TESTS RESULT OUT OF RANGE REFERENCE UNITS LAB L501.4010 <0.06 ng/mL Normal < 0.02 TROPONIN-I Result Comment: TROPONIN-I EXPECTED VALUES <0.05 NEGATIVE 0.06 - 0.59 AT RISK OF VT > OR = 0.60 SUGGEST VT Performed By: #### L500.2500, L501.4010 #### [facility] [address] [place], [address] CHEST 1 VIEW Observed: 11/28/2017 Status: F Source: [place] (PORTABLE) 1:00 PM [facility] REPOSITORY [facility] Imaging Services [address] [place] [address] Chest 1 View (Portable) MR#: [id number] Acct: [id number] Name: DANIELLE MARY Rep #: [id number] : 1955 F 62 From: Uriah Weathers MD PCP: Selvin Vega Status: PRE ER Study: Chest 1 View (Portable) Date of Exam: 11/28/17 Exam# [id number] Ordering Dr: Darlin Chavarria MD STUDY: X-RAY CHEST REASON FOR EXAM: Female, 62 years old. Chest pain. Anxiety. TECHNIQUE: Single AP portable view of the chest. COMPARISON: Comparison is made with prior examination dated November 23, 2017. FINDINGS: EKG electrodes are seen. The lungs are clear and expanded. There is no demonstrated pleural abnormality. There is evidence of coronary artery stenting. Normal mediastinum and jovan. Normal visualized pulmonary arteries. There is atherosclerotic calcification of the aortic arch with tortuosity. There are degenerative changes of the visualized thoracic spine. Normal visualized ribs, clavicles, and shoulders. There is no demonstrated abnormality of the visualized soft tissue structures of the upper abdomen. RAD/Chest 1 View (Portable) IMPRESSION: No acute abnormality is seen. Electronically Signed: Uriah Weathers MD at 14:06 EST Tel [phone], Service support , CC: Darlin Chavarria MD; Selvin VILLATORO School Psychologist Assistant: Signed 12 LEAD ELECTROCARDIOGRAM Observed: 11/25/2017 Status: F Source: [place] 10:30 AM [facility] REPOSITORY [facility] Cardiovascular Services [address] [place] [address] 12 Lead EKG 11/23/17 1517 MR#: [id number] Acct: [id number] Name: DANIELLE MARY Rep #: [id number] : 1955 62 From: Kiran Fitzgerald MD Attending Dr: Status: DEP ER Ordering Dr: Sammy Pedraza MD Date: 11/23/17 Location: ED Sex: F C Admitted: Test Reason : CP Blood Pressure : / mmHG Vent. Rate : 087 BPM Atrial Rate : 087 BPM P-R Int : 130 ms QRS Dur : 078 ms QT Int : 408 ms P-R-T Axes : 046 025 041 degrees QTc Int : 490 ms Normal sinus rhythm Prolonged QT Abnormal ECG Confirmed by KIRAN FITZGERALD MD ([id number]), web content editor ELI HASKINS ([id number]) on 11/25/2017 10:29:27 AM Referred By: RUBÉN Confirmed By:KIRAN FITZGERALD MD 11/25/17 1029 Date Kiran Fitzgerald MD CC: Selvin VILLATORO; Sammy Pedraza MD Signed 12 LEAD ELECTROCARDIOGRAM Observed: 11/25/2017 Status: F Source: [place] 10:29 AM [facility] Cardiovascular Services [address] [place] [address] 12 Lead EKG 11/23/17 1733 MR#: [id number] Acct: [id number] Name: DANIELLE MARY Rep #: [id number] : 1955 62 From: Kiran Fitzgerald MD Attending Dr: Status: DEP ER Ordering Dr: Sammy Pedraza MD Date: 11/23/17 Location: ED Sex: F C Admitted: Test Reason : REPEAT EKG Blood Pressure : / mmHG Vent. Rate : 080 BPM Atrial Rate : 080 BPM P-R Int : 156 ms QRS Dur : 084 ms QT Int : 436 ms P-R-T Axes : 040 015 019 degrees QTc Int : 502 ms Sinus rhythm with Premature atrial complexes Prolonged QT Abnormal ECG Confirmed by KIRAN FITZGERALD MD ([id number]), web content editor ELI HASKINS ([id number]) on 11/25/2017 10:29:13 AM Referred By: RUBÉN Confirmed By:KIRAN FITZGERALD MD 11/25/17 102 Date Kiran Ftizgerald MD CC: Selvin VILLATORO; Sammy Pedraza MD Signed DISCHARGE INSTRUCTION Observed: 11/24/2017 Status: F Source: LI 4:01 AM [facility] Medical Records Department [address] [facility] [facility] [address] [place] [address] Discharge Instruction 11/24/17 0400 MR#: [id number] Acct: [id number] Name: DANIELLE MARY Rep #: [id number] : 1955 62 From: Cholo Scott MD PCP: Selvin Vega Status: REG ER ED Disposition - Plan for ED Patient: Chief Complaint: Nausea/Vomiting Instructions: ED Nausea Vomiting, ED Abdominal Pain Unkn Cause Referrals: Selvin Sifuentes, NURSE ORTHOPAEDIC-C [Primary Care Provider] - What to do if you have Problems For any increased pain, shortness of breath, bleeding, nausea or vomiting, chest pain, or any unexpected problems, contact your Primary Care Provider. Call [facility] ([phone]) or report to the closest Emergency Room. Call 911 if necessary. 11/24/17400 <Electronically signed by Cholo Scott MD> Date Cholo Scott MD Cosigner Signature (If Indicated): Date CC: Selvin VILLATORO EMERGENCY DEPARTMENT Observed: 11/24/2017 Status: F Source: [place] SUMMARY 4:00 AM [facility] Medical Records Department [address] [facility] [place] [address] Emergency Department Summary 11/24/17 0358 MR#: [id number] Acct: [id number] Name: DANIELLE MARY Rep #: [id number] : 1955 62 From: Cholo Scott MD PCP: Selvin Vega Status: REG ER - ER Visit Summary Date of Service: 11/24/17 Chief Complaint: Nausea vomiting and abdominal pain History of Present Illness: The patient is a 62 F who presents with nausea and vomiting. She was actually seen in the emergency department earlier today for chest pain and had negative enzymes and was discharged home. She states she has had no further chest pain. However shortly after arrival home she developed nausea and vomiting. She had multiple episodes of nonbloody nonbilious emesis and diffuse abdominal pain. No diarrhea or constipation. No fevers. Physical Examination: Afebrile vitals are unremarkable Moist mucous membranes Heart regular rate and rhythm Lungs are clear Abdomen soft with some mild diffuse tenderness no guarding no rebound she does not appear to have surgical abdomen Alert Test Results: Laboratory studies are notable for minimal elevation of ALT and AST at 73 and 110 respectively as well as hyperglycemia with glucose 478. Urine unremarkable except glucose. Repeat BGT down to 264. CT of the abdomen and pelvis with oral and IV contrast shows no acute process. Emergency Department Course and Treatment: Patient was symptomatically treated with IV fluids morphine and Zofran. She was given subcutaneous insulin. She complained of ongoing nausea and was given IV Phenergan with significant improvement. She has had no further vomiting. CT of the abdomen was unremarkable. On reevaluation patient is resting comfortably with no complaints. She states she feels much better. Her repeat abdominal exam is benign with no tenderness. Given benign repeat examination and negative CT imaging with essentially unremarkable labs I do believe she can follow-up as an outpatient. She was advised to call her physician today to schedule follow-up appointment. She understands return for new or worsening symptoms and was instructed on specific signs and symptoms to monitor for. Treatment Plan: [] Disposition: Discharge Impression: Vomiting Abdominal pain This note was generated with [employer] dictation software. It may contain incorrect words, spelling, and punctuation that were not noted in review of the chart prior to signing ED Disposition - Plan for ED Patient: Chief Complaint: Nausea/Vomiting Referrals: Selvin Sifuentes, NURSE ORTHOPAEDIC-C [Primary Care Provider] - What to do if you have Problems For any increased pain, shortness of breath, bleeding, nausea or vomiting, chest pain, or any unexpected problems, contact your Primary Care Provider. Call [facility] ([phone]) or report to the closest Emergency Room. Call 911 if necessary. 11/24/17 0400 <Electronically signed by Cholo Scott MD> Date Cholo Linoigner Signature (If Indicated): Date CC: Selvin VILLATORO BEDSIDE GLUCOSE Collected: 11/24/2017 Status: F Source: LI 2:54 AM [facility] REPOSITORY TYPE CODE TESTS RESULT OUT OF REFERENCE UNITS RANGE LAB L501.080 70-110 mg/dL High BEDSIDE GLU 264 Result Comment: MANAGEMENT OF PATIENT CARE PER NURSING PROTOCOL Performed By: #### L501.080 #### [facility] Point of Care [address] [place], [place] [address] BEDSIDE GLUCOSE Collected: 11/24/2017 Status: F Source: [place] 1:59 AM [facility] REPOSITORY TYPE CODE TESTS RESULT OUT OF REFERENCE UNITS RANGE LAB L501.080 70-110 mg/dL High BEDSIDE GLU 367 Result Comment: MANAGEMENT OF PATIENT CARE PER NURSING PROTOCOL Performed By: #### L501.080 #### [facility] Point of Care [address] [place], [place] [address] URINALYSIS, COMPLETE Collected: 11/24/2017 Status: F Source: [place] 12:33 AM [facility] REPOSITORY Order Comment: How was Urine Obtained? CLEAN CATCH TYPE CODE TESTS RESULT OUT OF RANGE REFERENCE UNITS LAB L400.3000 Yellow COLOR Normal Straw LAB L400.3050 Clear Normal CLARITY Clear LAB L400.3200 Normal mg/dl High GLUCOSE, UR 1000 LAB L400.3300 Negative mg/dL Normal BILIRUBIN URINE Negative LAB L400.3400 Negative mg/dl High 15 KETONE UR LAB L400.3465 1.002-1.030 Normal SP.GR. DIPSTX 1.010 LAB L400.3550 5.0 - 8.0 pH UR Normal 6.5 LAB L400.3600 Negative mg/dl PROT Normal DIPSTX Negative LAB L400.3700 Normal mg/dl Normal UROBILI Normal LAB L400.3750 Negative Normal NITRITE UR Negative LAB L400.3780 Negative /ul Normal OCCULT BLOOD-UR Negative LAB L400.3800 Negative /ul LEUK Normal ESTERASE Negative LAB L400.4050 0-5 /hpf WBC 0 Normal SEEN LAB L400.4100 0-5 /hpf 0 Normal RBC-UA SEEN LAB L400.4150 5-10 /hpf SQUAM 0 Normal EPI SEEN LAB L400.4300 None Seen /hpf 0 Normal BACTERIA SEEN LAB L400.4350 <or=2+ /hpf 0 Normal MUCUS, URINE SEEN Performed By: #### L400.0001 #### [facility] [address] [place], [address] CBC W/DIFF, AUTOMATED Collected: 11/24/2017 Status: F Source: [place] 12:25 AM [facility] REPOSITORY TYPE CODE TESTS RESULT OUT OF RANGE REFERENCE UNITS LAB L100.1000 4.4-11.0 K/mm3 Normal WBC 8.0 LAB L100.1200 4.2-5.4 M/mm3 Normal RBC 4.28 LAB L100.1300 12.0-15.0 g/dl Normal HGB 13.5 LAB L100.1400 37-47 % Normal HCT 38.4 LAB L100.1500 81-99 fL Normal MCV 89.7 LAB L100.1600 27.0-32.0 pg Normal MCH 31.5 LAB L100.1700 32-36 g/gl Normal MCHC 35.2 LAB L100.1810 11.6-14.6 % Normal RDW CV 12.4 LAB L100.1820 35.1-43.9 fl Normal RDW SD 39.8 LAB L100.1900 150-450 K/mm3 Normal PLT 196 LAB L100.2000 6.2-12.0 fl Normal MPV 11.6 LAB L100.2100 47-70 % Normal NEUT% 65.9 LAB L100.2200 19-41 % Normal LY% 25.7 LAB L100.2300 0-10 % Normal MONO% 6.5 LAB L100.2400 0-5 % Normal EO% 1.1 LAB L100.2500 0-1 % Normal BASO% 0.6 LAB L100.2550 0.0-0.9 % Normal IM GRAN % 0.200 Result Comment: IG% - Immature Granulocytes (promyelocytes, myelocytes and metamyelocytes) > 1% indicates that a LEFT SHIFT is Present. LAB L100.2620 2.0-7.7 X10 3/uL Normal Absolute Neut 5.3 LAB L100.2720 0.83-4.51 X10 3/ul Normal Absolute Lymph 2.06 Performed By: #### L100.0100 #### [facility] [address] [place], [address] COMPREHENSIVE METABOLIC Collected: 11/24/2017 Status: F Source: LI [facility] 12:25 AM [facility] REPOSITORY TYPE CODE TESTS RESULT OUT OF RANGE REFERENCE UNITS LAB L501.0100 74-106 mg/dL High alert GLU 478 Result Comment: Critical Result(s) Called at: 00:53:53 11/24/2017 by: BRYANNA DUMONT to , ED Glucose result greater than or equal to 200 mg/dL suggests DIABETES MELLITUS per A.D.A. criteria. Please note revised GLUCOSE reference range effective 2017. LAB L501.1000 7-18 mg/dL Normal BUN 10 LAB L501.1100 0.55-1.02 mg/dL Normal CREAT,SERUM 0.77 Result Comment: The validity of the calculated GFR AND GFRAA in patients over 70 years has not been determined. Clinical correlation is essential. LAB L501.1110 >60 mL/min Normal EST GFR 80 Result Comment: Non- GFR Calc LAB L501.1115 >60 mL/min Normal EST GFR - AA 97 Result Comment: GFR Calc LAB L501.1255 ml/min Normal Estimated CRCL 61.06 LAB L501.1300 10-20 RATIO Normal BUN/CRE 13.0 LAB L501.1500 6.4-8. g/dL Normal 2 T PROT 6.7 LAB L501.1800 3.2-5. g/dL Normal 0 ALB 3.6 LAB L501.1950 2.2-4. g/dL Normal 2 GLOB 3.1 LAB L501.2000 0.9-2. RATIO Normal 4 A/G 1.2 LAB L501.2200 8.5-10 mg/dL Normal .1 CA 8.5 LAB L501.4100 15-37 U/L High AST 110 LAB L501.4305 45-117 U/L Normal ALK P 90 LAB L501.4405 13-56 U/L High ALT 73 Result Comment: Please note revised ALT reference range effective 2017. LAB L501.4600 0.20-1.00 mg/dL Normal T BILI 0.30 LAB L501.5300 136-145 mmol/L Normal NA 137 LAB L501.5600 3.5-5.1 mmol/L Normal K 4.1 LAB L501.5900 98-107 mmol/L Normal CL 103 LAB L501.6100 21.0-32.0 mmol/L Normal CO2 23.0 LAB L501.6200 5-15 Normal GAP 11 Performed By: #### L500.4050, L501.2450 #### [facility] [address] [facility] [place], [address] LIPASE Collected: 11/24/2017 Status: F Source: [place] 12:25 AM [facility] REPOSITORY TYPE CODE TESTS RESULT OUT OF RANGE REFERENCE UNITS LAB L501.2450 73-393 U/L Normal LIPASE 163 Performed By: #### L500.4050, L501.2450 #### [facility] [address] [facility] [place], [address] ABDOMEN/PELVIS WITH Observed: 11/24/2017 Status: F Source: [place] CONTRAST 12:13 AM [facility] REPOSITORY [facility] Imaging Services [address] [place] [address] Abdomen/Pelvis WITH Contrast MR#: [id number] Acct: [id number] Name: DANIELLE MARY Rep #: [id number] : 1955 F 62 From: Oswaldo Sanders MD PCP: Selvin Vega Status: REG ER Study: Abdomen/Pelvis WITH Contrast Date of Exam: 11/24/17 Exam# [id number] Ordering Dr: Cholo Scott MD STUDY: CT ABDOMEN AND PELVIS WITH CONTRAST REASON FOR EXAM: Female, 62 years old. Nausea, vomiting, dizziness, and weakness. History of emphysema, COPD, hypertension, diabetes, uterine cancer, cholecystectomy, and hysterectomy. RADIATION DOSAGE (If Supplied By Facility): CTDIvol = ( 16.35 ) mGy, DLP = ( 620.13 ) mGycm TECHNIQUE: Transaxial images were obtained from the dome of the diaphragm to the symphysis pubis with oral contrast. 100ML ml of Isovue 300 contrast was administered. Sagittal and coronal images were reconstructed. Individualized dose optimization techniques were used for this CT. COMPARISON: 08/10/2016. 04/03/2014. FINDINGS: The visualized lung bases are unremarkable. The visualized portions of the heart are within normal limits. There is a calcified granuloma in the right lobe of the liver. There is mild diffuse fatty infiltration of the liver. There is nonvisualization of the gallbladder on the current exam and both previous exams, consistent with a previous cholecystectomy.. Normal spleen. Normal pancreas. Normal bilateral adrenal glands. Normal right kidney. Normal left kidney. There is a small hiatal hernia. Normal small intestine. Normal colon. The appendix is visualized on axial images 68-73 and it appears normal.. There is diffuse atherosclerotic calcification of the abdominal aorta, without a demonstrated aneurysm. Normal inferior vena cava. Normal retroperitoneum. Normal urinary bladder. There is absence of the uterus consistent with a prior hysterectomy. Normal abdominal wall. There are mild degenerative changes of the visualized lumbar spine. CT/Abdomen/Pelvis WITH Contrast IMPRESSION: Fatty liver. Small hiatal hernia. Atherosclerosis. Previous cholecystectomy and hysterectomy. No evidence for acute pathology. Electronically Signed: Oswaldo Sanders MD at 3:40 EST , Service support , CC: Selvin VILLATORO; Cholo Scott MD School Psychologist Assistant: Signed EMERGENCY DEPARTMENT Observed: 11/23/2017 Status: F Source: [place] SUMMARY 11:58 PM [facility] REPOSITORY [facility] Medical Records Department [address] [place] [address] Emergency Department Summary 11/23/17 1553 MR#: [id number] Acct: [id number] Name: DANIELLE MARY #: [id number] : 1955 62 From: Sammy Pedraza MD PCP: Selvin Vega Status: DEP ER - ER Visit Summary Date of Service: 11/23/17 Chief Complaint: Chest pain History of Present Illness: The patient is a 62 F who reports that she has chest pain that began 110 while she was at rest. Is a continuous waxing and waning pain. She describes it as sharp with radiation to the left side of her neck. Pain is 10 out of 10 at worst 9 out of 10 currently. She reports that is worsened by exertion sometimes. She took nitroglycerin without relief. She reports she has been nauseated and vomited 3 times. She has been diaphoretic and short of breath with this. He denies any chest pain or change in dyspnea exertion in the past month. Physical Examination: Vitals: Stable. Afebrile. General: Well-nourished and well-developed. Head: Normocephalic atraumatic. Neck: Supple, no lymphadenopathy. No JVD. Nontender. Cardiovascular: Regular rate and rhythm. No murmurs. Respiratory: No respiratory distress. Clear to auscultation bilaterally. Abdominal: Soft, nontender, nondistended, normal bowel sounds. No guarding, rebound, or peritoneal signs. Back: Nontender. Extremities: Nontender, no edema. Skin: Normal color, no rash. Neurologic: Alert and oriented 3. Cranial nerves II through XII are intact. Normal strength and sensation. Psych: Normal affect. Test Results: EKG is sinus at 87 with no acute changes. Her QTC is 490. This is unchanged from last month. Repeat EKG is unchanged. Repeat troponin is negative. Initial troponin is negative. CBC is marked for a globin of 15.1. Chem-7 is marked for sodium 135. However, this is normal 1 corrected for her sugar of 394. Patient's blood work was reviewed and her sugar has been anywhere from 57-723 in the past year. It is typically in the 200s. Chest x-ray shows chronic changes. Emergency Department Course and Treatment: Patient was treated with aspirin, morphine, and Zofran. She is resting comfortably. I reviewed the patient's chart. It actually show she had a heart catheterization in September 2017. Showed a widely patent LAD stent and nonobstructive ostial/diagonal disease. I discussion the patient about her elevated glucose and she reports that she did not take her last dose of insulin because she did not feel well. I had a prolonged discussion with her about treating her diabetes regardless of illness. Treatment Plan: Patient was discussed with Dr. Hernandez. She will be discharged with instructions to take her insulin as previously directed. Follow-up with her primary care physician in 1 to days if not improving. Return to the emergency department for any worsening symptoms. Disposition: To home in improved and stable condition. Impression: 1. Atypical chest pain. 2. DANDY score 3. This note was generated with [employer]ation software. It may contain incorrect words, spelling, and punctuation that were not noted in review of the chart prior to signing ED Disposition - Plan for ED Patient: Disposition: Home or Assisted Living Chief Complaint: Chest Pain Instructions: ED Chest Pain Atypical Unkn Cause Referrals: Selvin Sifuentes, NURSE ORTHOPAEDIC-C [Primary Care Provider] - 1-2 Days if not improving What to do if you have Problems For any increased pain, shortness of breath, bleeding, nausea or vomiting, chest pain, or any unexpected problems, contact your Primary Care Provider. Call [facility] ([phone]) or report to the closest Emergency Room. Call 911 if necessary. 11/23/17 9502 <Electronically signed by Sammy Pedraza MD> Date Sammy Pedraza MD Cosigner Signature (If Indicated): Date CC: Selvin VILLATORO TROPONIN-I Collected: 11/23/2017 Status: F Source: [place] 6:24 PM [facility] REPOSITORY Order Comment: Comments: Should be drawn 3H after initial Troponin obtained 'TROP' Serial specimen #1, #2, #3, or #4: 2 TYPE CODE TESTS RESULT OUT OF RANGE REFERENCE UNITS LAB L501.4010 <0.06 ng/mL Normal < 0.02 TROPONIN-I Result Comment: TROPONIN-I EXPECTED VALUES <0.05 NEGATIVE 0.06 - 0.59 AT RISK OF VT > OR = 0.60 SUGGEST VT Performed By: #### L501.4010 #### [facility] [address] [place], [address] CHEST 1 VIEW Observed: 11/23/2017 Status: F Source: [place] (PORTABLE) 3:35 PM [facility] REPOSITORY [facility] Imaging Services [address] [place] [address] Chest 1 View (Portable) MR#: [id number] Acct: [id number] Name: DANIELLE MARY Rep #: [id number] : 1955 F 62 From: Jorge Quintanilla MD PCP: Selvin Vega Status: DEP ER Study: Chest 1 View (Portable) Date of Exam: 11/23/17 Exam# [id number] Ordering Dr: Sammy Pedraza MD STUDY: X-RAY CHEST REASON FOR EXAM: Female, 62 years old. CHEST PAIN TECHNIQUE: Single frontal view of the chest. COMPARISON: None. FINDINGS: Chronic appearing increased interstitial lung markings. There is no demonstrated pleural abnormality. Normal heart size. Normal mediastinum and jovan. Normal visualized pulmonary arteries. There is atherosclerotic calcification of the aortic arch with tortuosity. There are diffuse degenerative changes of the visualized thoracic spine. There is degenerative osteoarthritis of the bilateral shoulders. There is no demonstrated abnormality of the visualized soft tissue structures of the upper abdomen. RAD/Chest 1 View (Portable) IMPRESSION: There are no acute findings. Electronically Signed: Jorge Quintanilla MD at 16:17 EST , Service support , CC: Selvin VILLATORO; Sammy Pedraza MD School Psychologist Assistant: Signed CBC W/DIFF, AUTOMATED Collected: 11/23/2017 Status: F Source: LI 3:24 PM [facility] REPOSITORY TYPE CODE TESTS RESULT OUT OF RANGE REFERENCE UNITS LAB L100.1000 4.4-11.0 K/mm3 Normal WBC 7.8 LAB L100.1200 4.2-5.4 M/mm3 Normal RBC 4.79 LAB L100.1300 12.0-15.0 g/dl High HGB 15.1 LAB L100.1400 37-47 % Normal HCT 43.3 LAB L100.1500 81-99 fL Normal MCV 90.4 LAB L100.1600 27.0-32.0 pg Normal MCH 31.5 LAB L100.1700 32-36 g/gl Normal MCHC 34.9 LAB L100.1810 11.6-14.6 % Normal RDW CV 12.6 LAB L100.1820 35.1-43.9 fl Normal RDW SD 41.3 LAB L100.1900 150-450 K/mm3 Normal PLT 223 LAB L100.2000 6.2-12.0 fl Normal MPV 11.6 LAB L100.2100 47-70 % Normal NEUT% 54.7 LAB L100.2200 19-41 % Normal LY% 36.1 LAB L100.2300 0-10 % Normal MONO% 6.7 LAB L100.2400 0-5 % Normal EO% 1.7 LAB L100.2500 0-1 % Normal BASO% 0.4 LAB L100.2550 0.0-0.9 % Normal IM GRAN % 0.400 Result Comment: IG% - Immature Granulocytes (promyelocytes, myelocytes and metamyelocytes) > 1% indicates that a LEFT SHIFT is Present. LAB L100.2620 2.0-7.7 X10 3/uL Normal Absolute Neut 4.3 LAB L100.2720 0.83-4.51 X10 3/ul Normal Absolute Lymph 2.82 Performed By: #### L100.0100 #### [facility] [address] [place], [address] BASIC METABOLIC Collected: 11/23/2017 Status: F Source: LI PROFILE (BMP) 3:24 PM [facility] REPOSITORY Order Comment: 'TROP' Serial specimen #1, #2, #3, or #4: 1 TYPE CODE TESTS RESULT OUT OF RANGE REFERENCE UNITS LAB L501.0100 74-106 mg/dL High GLU 394 Result Comment: Glucose result greater than or equal to 200 mg/dL suggests DIABETES MELLITUS per A.D.A. criteria. Please note revised GLUCOSE reference range effective 2017. LAB L501.1000 7-18 mg/dL Normal BUN 13 LAB L501.1100 0.55-1.02 mg/dL Normal CREAT,SERUM 0.95 Result Comment: The validity of the calculated GFR AND GFRAA in patients over 70 years has not been determined. Clinical correlation is essential. LAB L501.1110 >60 mL/min Normal EST GFR 63 Result Comment: Non- GFR Calc LAB L501.1115 >60 mL/min Normal EST GFR - AA 76 Result Comment: GFR Calc LAB L501.1255 ml/min Normal Estimated CRCL 49.49 LAB L501.1300 10-20 RATIO Normal BUN/CRE 13.7 LAB L501.2200 8.5-10 mg/dL Normal .1 CA 8.9 LAB L501.5300 136-14 mmol/L Low 5 NA 135 LAB L501.5600 3.5-5. mmol/L Normal 1 K 3.5 LAB L501.5900 98-107 mmol/L Normal CL 100 LAB L501.6100 21.0-3 mmol/L Normal 2.0 CO2 23.0 LAB L501.6200 5-15 Normal GAP 12 Performed By: #### L500.2500, L501.4010 #### [facility] [address] [place], [address] TROPONIN-I Collected: 11/23/2017 Status: F Source: [place] 3:24 PM [facility] REPOSITORY Order Comment: 'TROP' Serial specimen #1, #2, #3, or #4: 1 TYPE CODE TESTS RESULT OUT OF RANGE REFERENCE UNITS LAB L501.4010 <0.06 ng/mL Normal < 0.02 TROPONIN-I Result Comment: TROPONIN-I EXPECTED VALUES <0.05 NEGATIVE 0.06 - 0.59 AT RISK OF [place] > OR = 0.60 SUGGEST [place] Performed By: #### L500.2500, L501.4010 #### [facility] [place], [address] ALLERGIES ALLERGIES DATE TYPE / CODE NAME / CODE REACTION SEVERITY SOURCE 10/04/2018 Drug hydrocodone Vomiting Unknown [place] Allergy/416 bitartrate/[id number] Community 198895([facility] 555(RXNORM) [facility] ED CT) Repository 10/04/2018 Drug Penicillins/U11687 Hives Unknown Li Allergy/416 0476(RXNORM) Community 052694([facility] ED CT) Repository 10/04/2018 Drug morphine/[id number] Itching [place] Li Allergy/416 5(RXNORM) Community 146928([facility] ED CT) Repository 10/04/2018 Drug ibuprofen/[id number] Vomiting Unknown Li Allergy/416 77(RXNORM) Community 571039([facility] ED CT) Repository 08/06/2015 DRUG IBUPROFEN GI UPSET [facility] INGREDI/419 Other [place] 394652(SNOM Repository ED CT) 08/06/2015 Drug PENICILLINS HIVES [facility] Class/37276 Other [place] 1003(SNOMED Repository CT) 08/06/2015 DRUG/728819 HYDROCODONE-ACETAM GI UPSET [facility] 003(SNOMED INOPHEN Other [place] CT) Repository NG/12513023 IBUPROFEN [facility] 6(SNOMED [facility]) Repository NG/44125006 PENICILLINS [facility] 6(SNOMED Health System CT) Repository NG/98406427 HYDROCODONE-ACETAM [facility] 6(SNOMED [facility] Health System CT) Repository ENCOUNTERS ENCOUNTERS ADMIT/DISCHARGE ACCOUNT NUMBER ADMITTING ENCOUNTER LOCATION SOURCE CLASS 10/20/2018 [id number] Ambulatory [facility] ding:BHIOP Repository 10/05/2018/10/06/20 [id number] Reuben, Ambulatory [address] ding:PCURoom Repository : [id number]: 1 10/05/2018 [id number] Reuben, Ambulatory BMSBuilding: [facility] Repository 10/05/2018 [id number] [place]arry, Ambulatory BMSBuilding: [facility] Repository 10/05/2018 [id number] Agyepong, Ambulatory BMSBuilding: [facility] BMS.[facility] Repository 10/05/2018 [id number] Ambulatory BMSBuilding: [facility] Repository 09/18/2018/09/18/20 [id number] Emergency [address] ding:ED Repository 09/15/2018/09/15/20 [id number] Emergency [address] ding:ED Repository 09/12/2018/10/09/20 [id number] Ambulatory [address] ding:BHIOP Repository 08/30/2018 [id number] Ambulatory [facility] ding:LAB.FUT Repository URE 08/25/2018 [id number] Ambulatory [facility] ding:LAB Repository 08/23/2018/09/08/20 [id number] Ambulatory [address] ding:BHIOP Repository 08/16/2018 [id number] Ambulatory [facility] ding:NM Repository 08/09/2018/08/09/20 [id number] Emergency [address] ding:ED Repository 08/04/2018/08/09/20 [id number] CIANCONE, Inpatient Gutiérrez [address] Encounter [facility] Repository 08/04/2018/08/09/20 [id number] CIANCONE, Inpatient [facility] 18 GER[address] C [facility] MEDICAL Repository CENTERBuildi nRoom: 6417Bed: 01 08/04/2018/08/04/20 [id number] Emergency [address] ding:ED Repository 07/29/2018/07/29/20 [id number] Emergency [address] ding:ED Repository 07/28/2018/07/28/20 [id number] Emergency [address] ding:ED Repository 07/21/2018 [id number] Ambulatory [facility] ding:LAB Repository 07/17/2018/08/04/20 [id number] Ambulatory [address] ding:BHIOP Repository 07/10/2018/07/10/20 [id number] Emergency [address] ding:ED Repository 07/04/2018/08/08/20 [id number] Ambulatory [address] ding:CCN Repository 07/02/2018/07/02/20 [id number] Emergency [address] ding:ED Repository 05/30/2018/05/31/20 [id number] Wilfrido, Ambulatory Li [place] ding:PCURoom Repository : [id number]: 1 05/30/2018 [id number] Wilfrido, Ambulatory BMSBuilding: [facility] BMS.[facility] Repository 05/30/[id number] [facility], Ambulatory BMSBuilding: [place] BMS.[facility] Repository 05/30/2018/05/31/20 [id number] Ambulatory BMSBuilding: [place] 18 BMS..[facility] Repository 05/30/2018 [id number] Ambulatory BMSBuilding: [facility] Repository 05/26/2018/05/26/20 [id number] Emergency [address] ding:ED Repository 05/01/2018/05/01/20 [id number] Emergency [address] ding:ED Repository 04/16/2018/04/17/20 [id number] Emergency [address] ding:ED Repository 03/26/2018/03/26/20 [id number] Emergency [address] ding:ED Repository 03/16/2018/03/16/20 [id number] Ambulatory BMSBuilding: [place] 18 [facility] Repository 03/15/2018/03/16/20 [id number] Ambulatory BMSBuilding: [address] Repository 03/14/2018/03/16/20 [id number] White, Ambulatory Li [address] ding:PCURoom Repository : [id number]: 1 03/14/2018/03/16/20 [id number] Ambulatory BMSBuilding: [place] 18 Man [facility] Repository 03/14/2018/03/16/20 [id number] Ambulatory BMSBuilding: [place] 18 [facility] Repository 02/18/2018/02/19/20 [id number] Emergency Li[address] ding:ED Repository 01/10/2018/01/12/20 [id number] Ambulatory BMSBuilding: Li 18 [facility] Repository 01/09/2018/01/12/20 [id number] Olamide, Ambulatory [place] ding:PCURoom Repository : [id number]: 1 01/09/2018 [id number] Olamide, Ambulatory BMSBuilding: [place] Kiran BMS.[facility] Repository 01/09/2018 [id number] Olamide Ambulatory BMSBuilding: Li Kiran BMS.[facility] Repository 01/09/2018 [id number] Ambulatory BMSBuilding: [place] BMS.[facility] Repository 01/06/2018/01/08/20 [id number] Emergency BBuilding:VINCE Hanna [address] [place] [address] Repository 01/02/2018/01/03/20 [id number] Emergency [address] ding:ED Repository 12/30/2017/01/01/20 [id number] Emergency [address] ding:ED Repository 12/12/2017/12/13/19 [id number] Emergency [address] ding:ED Repository 11/28/2017/11/29/19 [id number] Paint[place], Ambulatory Li [address] ding:PCURoom Repository : IEW436Jmz: 1 11/28/2017 [id number] [place], Ambulatory BMSBuilding: Li [place] BMS.[facility] Repository 11/28/2017/11/29/19 [id number] Ambulatory BMSBuilding: Li 18 [facility] Repository 11/23/2017/11/24/19 [id number] Emergency [address] ding:ED Repository 11/23/2017/11/23/19 [id number] Emergency [address] ding:ED Repository PAYERS PAYERS ENCOUNTER GUARANTOR PAYER SUBSCRIBER SOURCE 10/20/2018 SOFÍA K Primary SOFÍA K Li [id number] [place] Insurance:MEDICARE TUCKERDOB[place] BPolicy [id number] Hospital 35024Wng: (330) Number: Repository [phone] () [id number] Date:2018-08-15 10/20/2018 Secondary NOT GIVENUNK [place] Insurance:SELF PAY [facility] Number: Effective Repository Date:2018-10-10 10/05/2018 SOFÍA K Primary SOFÍA K [place] [id number] [place] Insurance:MEDICARE TUCKERDOB: [place] olicy [id number] Hospital 68184Bql: (330) Number: Repository [phone] () [id number] Date:2018-10-04 10/05/2018 Secondary NOT GIVENUNK [place] Insurance:SELF PAY [facility] Number: Effective Repository Date:2018-10-04 10/05/2018 SOFÍA K Primary SOFÍA K [place] [id number] [place] Insurance:MEDICARE TUCKERDOB: [place] BPolicy [id number] Hospital 49724Zdg: (330) Number: Repository [phone] () [id number] Date:2018-10-04 10/05/2018 Secondary NOT GIVENUNK Li Insurance:SELF PAY [facility] Number: Effective Repository Date:2018-10-04 10/05/2018 SOFÍA K Primary SOFÍA K [place] [id number] [place] Insurance:MEDICARE TUCKERDOB: [place] BPolicy [id number] Hospital 13201Ome: (330) Number: Repository [phone] () [id number] Date:2018-10-04 10/05/2018 Secondary NOT GIVENUNK [place] Insurance:SELF PAY [facility] Number: Effective Repository Date:2018-10-05 10/05/2018 SOFÍA K Primary SOFÍA K [place] [id number] [place] Insurance:MEDICARE TUCKERDOB: [facility] [place] [facility] [id number] Hospital 48846Ioh: (330) Number: Repository [phone] () [id number] Date:2018-10-04 10/05/2018 Secondary NOT GIVENUNK [place] Insurance:SELF PAY [facility] Number: Effective Repository Date:2018-10-05 10/05/2018 SOFÍA K Primary SOFÍA K [place] [id number] [place] Insurance:MEDICARE TUCKERDOB: [facility] [place] [facility] [id number] Hospital 74843Hby: (330) Number: Repository [phone] () [id number] Date:2018-10-04 10/05/2018 Secondary NOT GIVENUNK Li Insurance:SELF PAY [facility] Number: Effective Repository Date:2018-10-05 09/18/2018 DANIELLE K Primary DANIELLE K [place] [id number] [place] Insurance:MEDICARE TUCKERDOB: [facility] [place] PART A [facility] [id number] Hospital 51694Lsz: (330) Number: Repository [phone] () [id number] Date:2018-09-18 09/18/2018 Secondary NOT GIVENUNK [place] Insurance:SELF PAY [facility] Number: Effective Repository Date:2018-09-18 09/15/2018 DANIELLE K Primary DANIELLE K Li [id number] [place] Insurance:MEDICARE TUCKERDOB: [facility] [place] [facility] [id number] Hospital 07118Dwv: (330) Number: Repository [phone] () [id number] Date:2018-09-15 09/15/2018 Secondary NOT GIVENUNK [place] Insurance:SELF PAY [facility] Number: Effective Repository Date:2018-09-15 09/12/2018 DANIELLE K Primary DANIELLE K [place] [id number] [place] Insurance:MEDICARE TUCKERDOB: [place] [facility] [id number] Hospital 71991Ytm: (330) Number: Repository [phone] () [id number] Date:2018-08-15 09/12/2018 Secondary NOT GIVENUNK Li Insurance:SELF PAY [facility] Number: Effective Repository Date:2018-09-09 08/30/2018 DANIELLE K Primary DANIELLE K [place] [id number] [place] Insurance:MEDICARE TUCKERDOB: [place] [facility] [id number] Hospital 32438Zno: (330) Number: Repository [phone] () [id number] Date:2018-08-25 08/30/2018 Secondary NOT GIVENUNK Li Insurance:SELF PAY [facility] Number: Effective Repository Date:2018-08-25 08/25/2018 DANIELLE K Primary DANIELLE K Li [id number] [place] Insurance:MEDICARE TUCKERDOB: [place] [facility] [id number] Hospital 52422Gmo: (330) Number: Repository [phone] () [id number] Date:2018-08-25 08/25/2018 Secondary NOT GIVENUNK [place] Insurance:SELF PAY [facility] Number: Effective Repository Date:2018-08-25 08/23/2018 DANIELLE K Primary DANIELLE K [place] [id number] [place] Insurance:MEDICARE TUCKERDOB: [place] [facility] [id number] Hospital 99763Wrr: (330) Number: Repository [phone] () [id number] Date:2018-08-15 08/23/2018 Secondary NOT GIVENUNK Li Insurance:SELF PAY [facility] Number: Effective Repository Date:2018-08-15 08/16/2018 DANIELLE K Primary DANIELLE K Li [id number] [place] Insurance:MEDICARE TUCKERDOB: [place] [facility] [id number] Hospital 55915Luc: (330) Number: Repository [phone] () [id number] Date:2018-08-07 08/16/2018 Secondary NOT GIVENUNK [place] Insurance:SELF PAY [facility] Number: Effective Repository Date:2018-08-07 08/09/2018 DANIELLE K Primary DANIELLE K [place] [id number] [place] Insurance:MEDICARE [facility] [place] [facility] [id number] Hospital 84309Vra: (330) Number: Repository [phone] () [id number] Date:2018-08-09 08/09/2018 Secondary NOT GIVENUNK [place] Insurance:SELF PAY [facility] Number: Effective Repository Date:2018-08-09 08/04/2018 DANIELLE TUCKERDOB: Primary DANIELLE TUCKERDOB: [facility] [id number] Insurance:MEDICARE A [id number] [facility] BPolicy Number: Repository [place] [address]Pmw: [id number] Date: () 08/04/2018 DANIELLE K Primary DANIELLE K [place] [id number] [place] Insurance:MEDICARE TUERDOB: [place] [facility] [id number] Hospital 72796Jwz: (330) Number: Repository [phone] () [id number] Date:2018-08-04 08/04/2018 Secondary NOT GIVENUNK [place] Insurance:SELF PAY [facility] Number: Effective Repository Date:2018-08-04 07/29/2018 DANIELLE K Primary DANIELLE K [place] [id number] [place] Insurance:MEDICARE TUCKERDOB: [place] [facility] [id number] Hospital 25159Zyv: (330) Number: Repository [phone] (HP) [id number] Date:2018-07-29 07/29/2018 Secondary NOT GIVENUNK Li Insurance:SELF PAY [facility] Number: Effective Repository Date:2018-07-29 07/28/2018 DANIELLE K Primary DANIELLE K Li [id number] [place] Insurance:MEDICARE TUCKERDOB: [place] [facility] [id number] Hospital 47117Fmz: (330) Number: Repository [phone] () [id number] Date:2018-07-28 07/28/2018 Secondary NOT GIVENUNK [place] Insurance:SELF PAY [facility] Number: Effective Repository Date:2018-07-28 07/21/2018 DANIELLE K Primary DANIELLE K Li [id number] [place] Insurance:MEDICARE TUCKERDOB: [place] [facility] [id number] Hospital 55627Fqp: (330) Number: Repository [phone] (HP) [id number] Date:2018-07-21 07/21/2018 Secondary NOT GIVENUNK [place] Insurance:SELF PAY [facility] Number: Effective Repository Date:2018-07-21 07/17/2018 DANIELLE K Primary DANIELLE K [place] [id number] [place] Insurance:MEDICARE TUCKERDOB: [place] [facility] [id number] Hospital 49715Fgh: (330) Number: Repository [phone] () [id number] Date:2018-07-11 07/17/2018 Secondary NOT GIVENUNK [place] Insurance:SELF PAY [facility] Number: Effective Repository Date:2018-07-11 07/10/2018 DANIELLE K Primary NOT GIVENUNK Li [id number] [place] Insurance:SELF PAY [place] [address]Tel: (330) Number: Effective Repository [phone] () Date:2018-07-10 07/04/2018 DANIELLE K Primary NOT GIVENUNK Li [id number] [place] Insurance:SELF PAY [place] [address]Tel: (330) Number: Effective Repository [phone] () Date:2018-07-04 07/02/2018 DANIELLE K Primary NOT GIVENUNK [place] [id number] [place] Insurance:SELF PAY [place] [address]Tel: (330) Number: Effective Repository [phone] () Date:2018-07-02 05/30/2018 DANIELLE K Primary NOT GIVENUNK Li [id number] [place] Insurance:SELF PAY [place] [address]Tel: (330) Number: Effective Repository [phone] () Date:2018-05-30 05/30/2018 DANIELLE K Primary NOT GIVENUNK Li [id number] [place] Insurance:SELF PAY [place] [address]Tel: (330) Number: Effective Repository [phone] () Date:2018-05-30 05/30/2018 DANIELLE K Primary NOT GIVENUNK Li [id number] [place] Insurance:SELF PAY [place] [address]Tel: (330) Number: Effective Repository [phone] () Date:2018-05-30 05/30/2018 DANIELLE K Primary NOT GIVENUNK Li [id number] [place] Insurance:SELF PAY [place] [address]Tel: (330) Number: Effective Repository [phone] () Date:2018-05-30 05/30/2018 DANIELLE K Primary NOT GIVENUNK [place] [id number] [place] Insurance:SELF PAY [place] [address]Tel: (330) Number: Effective Repository [phone] () Date:2018-05-30 05/26/2018 DANIELLE K Primary NOT GIVENUNK [place] [id number] [place] Insurance:SELF PAY [facility] 52056Tgw: (330) Number: Effective Repository [phone] (HP) Date:2018-05-26 05/01/2018 DANIELLE K Primary NOT GIVENUNK [place] [id number] [place] Insurance:SELF PAY [place] [address]Tel: (330) Number: Effective Repository [phone] () Date:2018-05-01 04/16/2018 DANIELLE K Primary NOT GIVENUNK Li [id number] [place] Insurance:SELF PAY [place] [address]Tel: (330) Number: Effective Repository [phone] () Date:2018-04-16 03/26/2018 DANIELLE K Primary NOT GIVENUNK [place] [id number] [place] Insurance:SELF PAY [facility] 22650Rer: (330) Number: Effective Repository [phone] () Date:2018-03-26 03/16/2018 DANIELLE K Primary NOT GIVENUNK Li [id number] [place] Insurance:SELF PAY [facility] 19118Whu: (330) Number: Effective Repository [phone] () Date:2018-03-16 03/15/2018 DANIELLE K Primary NOT GIVENUNK Li [id number] [place] Insurance:SELF PAY [facility] [id number]: (330) Number: Effective Repository [phone] () Date:2018-03-15 03/14/2018 DANIELLE K Primary NOT GIVENUNK Li [id number] [place] Insurance:SELF PAY [facility] [id number]: (330) Number: Effective Repository [phone] () Date:2018-03-14 03/14/2018 DANIELLE K Primary NOT GIVENUNK Li [id number] [place] Insurance:SELF PAY [facility] [id number]: (330) Number: Effective Repository [phone] () Date:2018-03-14 03/14/2018 DANIELLE K Primary NOT GIVENUNK Li [id number] [place] Insurance:SELF PAY [place] [address]Tel: (330) Number: Effective Repository [phone] () Date:2018-03-14 02/18/2018 DANIELLE K Primary NOT GIVENUNK [place] [id number] [place] Insurance:SELF PAY [place] [address]Tel: (330) Number: Effective Repository [phone] () Date:2018-02-18 01/10/2018 DANIELLE K Primary NOT GIVENUNK [place] [id number] [place] Insurance:SELF PAY [place] [address]Tel: (330) Number: Effective Repository [phone] () Date:2018-01-10 01/09/2018 DANIELLE K Primary NOT GIVENUNK [place] [id number] [place] Insurance:SELF PAY [facility] [id number]: (330) Number: Effective Repository [phone] () Date:2018-01-09 01/09/2018 DANIELLE K Primary NOT GIVENUNK [place] [id number] [place] Insurance:SELF PAY [facility] [id number]: (330) Number: Effective Repository [phone] () Date:2018-01-09 01/09/2018 DANIELLE K Primary NOT GIVENUNK [place] [id number] [place] Insurance:SELF PAY [facility] [id number]: (330) Number: Effective Repository [phone] () Date:2018-01-09 01/09/2018 Danielle K Primary NOT GIVENUNK Li [id number] [place] Insurance:SELF PAY [facility] 17670Fsa: (330) Number: Effective Repository [phone] () Date:2018-01-09 01/06/2018 DANIELLE K Primary [facility]LF [facility] [id number] [facility] Number: [id number] Repository [place], Effective [address] [place], [place] [address]Opm: Date:2020-01-06 [place] [address]Glx: [id number] Name: ()Tel: [phone]) (HP) () [phone] () 01/02/2018 Danielle K Primary NOT GIVENUNK [place] [id number] [place] Insurance:SELF PAY [place] [address]Tel: (593) Number: Effective Repository [phone] () Date:2018-01-02 12/30/2017 Danielle K Primary NOT GIVENUNK Li [id number] [place] Insurance:SELF PAY [place] [address]Tel: (602) Number: Effective Repository [phone] () Date:2017-12-30 12/12/2017 Danielle K Primary NOT GIVENUNK [place] [id number] [place] Insurance:SELF [facility] [address]Bvr: (645) Number: Effective Repository [phone] () Date:2017-12-12 11/28/2017 Danielle K Primary NOT GIVENUNK [place] [id number] [place] Insurance:SELF PAY [facility] [address]Tel: (402) Number: Effective Repository [phone] () Date:2017-11-28 11/28/2017 Danielle K Primary NOT GIVENUNK [place] [id number] [place] Insurance:SELF PAY [place] [address]Tel: (660) Number: Effective Repository [phone] () Date:2017-11-28 11/28/2017 Danielle K Primary NOT GIVENUNK [place] [id number] [place] Insurance:SELF PAY [place] [id number]: (330) Number: Effective Repository [phone] () Date:2017-11-28 11/23/2017 Danielle K Primary NOT GIVENUNK [place] [id number] [place] Insurance:SELF PAY [place] [address]Tel: (330) Number: Effective Repository [phone] () Date:2017-11-23 11/23/2017 Danielle Moss Primary NOT GIVENUNK Li [id number] [place] Insurance:SELF PAY [place] [id number]: (330) Number: Effective Repository [phone] () Date:2017-11-23
== END 2018-09-18 19:05 | disposition home or self-care (01) ==
PROVIDERS: Emergency Provider Emergency Medicine; Family Provider Family Medicine; PCP Family Medicine
DX: J18.9 Pneumonia, unspecified organism (principal); J44.9 Chronic obstructive pulmonary disease, unspecified; I10 Essential (primary) hypertension; I25.10 Atherosclerotic heart disease of native coronary artery without angina pectoris; K21.9 Gastro-esophageal reflux disease without esophagitis; E78.5 Hyperlipidemia, unspecified; E11.9 Type 2 diabetes mellitus without complications; F33.3 Major depressive disorder, recurrent, severe with psychotic symptoms; F41.9 Anxiety disorder, unspecified; Z90.49 Acquired absence of other specified parts of digestive tract; Z79.82 Long term (current) use of aspirin; Z79.84 Long term (current) use of oral hypoglycemic drugs; Z79.4 Long term (current) use of insulin; Z79.02 Long term (current) use of antithrombotics/antiplatelets; Z79.899 Other long term (current) drug therapy; F17.200 Nicotine dependence, unspecified, uncomplicated
CPT/HCPCS: 71046; 80048; 84484; 85025; 93005; 96374; 96375; 99284; H0035; 90853; A4216

== ENCOUNTER 2018-10-04 17:21 | Observation (INO) | payer MEDICARE, SELFPAY ==
[2017-03-16 08:30] VITALS: BMI 29.2
[2018-10-04 17:22] VITALS: BP 144/73; PULSE 89; RESP 19; TEMP 37; O2SAT 99; BMI 26.7
[2018-10-04 17:56] LABS: Bedside Glucose 500 mg/dL (70-110)
--- NOTE | 2018-10-04 18:43 | EKG12_ITS ---
Test Reason : HYPERGLYCEMIA Blood Pressure : / mmHG Vent. Rate : 080 BPM Atrial Rate : 080 BPM P-R Int : 160 ms QRS Dur : 078 ms QT Int : 398 ms P-R-T Axes : 046 024 007 degrees QTc Int : 459 ms Normal sinus rhythm Normal ECG Confirmed by HENRY BARFIELD, DAYANA ([id number]), senior editor ARON HASKINS ([id number] on 10/09/2018 1:12:40 PM Referred By: ANCELMO Confirmed By:DAYANA FIGUEROA MD
--- NOTE | 2018-10-04 18:45 | ED.DCSUM_ITS ---
- ER Visit Summary Date of Service: 10/04/18 Chief Complaint: High blood sugar History of Present Illness: The patient is a 63 F with history of diabetes who presents for high blood sugar. She vomited twice today and noted blurred vision. She is also had a dry mouth, polyuria and polydipsia with general w eakness and fatigue. Her blood sugar read high. Patient did take her insulin this morning. She is on metformin and daily insulin. She ate chicken and salad dressing and denies any other recent illness or deviation from her normal routine. History of coronary artery disease, COPD, hypertension, hypercholesterolemia and diabetes. Former smoker. Physical Examination: Vital signs: afebrile, hemodynamically stable, no hypoxia on room air General: well nourished, well developed, in no distress Skin: warm, dry, no rash, no pallor HEENT: normocephalic and atraumatic; PERRL, EOMI, moist mucous membranes Cardiovascular: regular rate and rhythm without murmurs, no peripheral edema, 2+ pulses all distal extremities Respiratory: No increased work of breathing, lungs are clear to auscultation bilaterally, no rales, rhonchi or wheezing Abdominal: Abdomen is soft, tender in the epigastrium, with normoactive bowel sounds, no guarding or rebound, no masses MSK: Moves all extremities, no deformities, normal strength Neuro: Awake and alert, oriented ?4. No facial droop, sensation and motor function intact and symmetric Test Results: Abnormal Lab Results 10/04/18 10/04/18 10/04/18 17:49 18:55 18:55 WBC 8.5 RBC 4.31 Hgb 13.4 Hct 38.3 MCV 88.9 MCH 31.1 MCHC 35.0 RDW 12.1 RDW Differential 38.9 Plt Count 221 MPV 11.0 Immature Gran % (Auto) 0.400 Neut % (Auto) 56.7 Lymph % (Auto) 33.7 Walker % (Auto) 6.4 Eos % (Auto) 2.6 Baso % (Auto) 0.2 Absolute Neuts (auto) 4.8 Absolute Lymphs (auto) 2.86 Total Counted Not Reportable Specimen Type Sample Site VBG pH VBG pO2 VBG O2 Sat (Calc) VBG O2 Content VBG Base Excess POC Mix VBG pCO2 Pt Tmp O2 Delivery Device Blood Gas Notified Whom Blood Gas Notified Time Sodium 131 L Potassium 3.9 Chloride 98 Carbon Dioxide 23.0 Anion Gap 10 BUN 15 Creatinine 1.18 H Estim Creat Clear Calc 39.32 Est GFR (MDRD) Af Amer 59 L Est GFR (MDRD) Non-Af 49 L BUN/Creatinine Ratio 12.7 Glucose 519 H* Calcium 8.6 Phosphorus 3.4 Magnesium 1.9 Troponin I < 0.015 Urine Color Urine Clarity Urine pH Ur Specific [place] Urine Protein Urine Glucose (UA) Urine Ketones Urine Occult Blood Urine Nitrite Urine Bilirubin Urine Urobilinogen Ur Leukocyte Esterase Urine RBC Urine WBC Ur Squamous Epith Cells Urine Bacteria Urine Mucus Acetone Level POC Glucose 500 H* 10/04/18 10/04/18 10/04/18 18:55 19:05 19:41 WBC RBC Hgb Hct MCV MCH MCHC RDW RDW Differential Plt Count MPV Immature Gran % (Auto) Neut % (Auto) Lymph % (Auto) [place] % (Auto) Eos % (Auto) Baso % (Auto) Absolute Neuts (auto) Absolute Lymphs (auto) Total Counted Specimen Type [place] Sample Site OTHER VBG pH 7.42 VBG pO2 51 H VBG O2 Sat (Calc) 87 H VBG O2 Content 23 VBG Base Excess -2 L POC Mix VBG pCO2 Pt Tmp 34.6 L O2 Delivery Device Room Air Blood Gas Notified Whom ED Blood Gas Notified Time 1950 Sodium Potassium Chloride Carbon Dioxide Anion Gap BUN Creatinine Estim Creat Clear Calc Est GFR (MDRD) Af Amer Est GFR (MDRD) Non-Af BUN/Creatinine Ratio Glucose Calcium Phosphorus Magnesium Troponin I Urine Color Yellow Urine Clarity Sl Cldy Urine pH 6.0 Ur Specific [place] 1.010 Urine Protein Negative Urine Glucose (UA) 1000 H Urine Ketones Negative Urine Occult Blood Negative Urine Nitrite Negative Urine Bilirubin Negative Urine Urobilinogen Normal Ur Leukocyte Esterase 100 H Urine RBC 0 SEEN Urine WBC 10-25 SEEN Ur Squamous Epith Cells 0-5 SEEN Urine Bacteria 0 SEEN Urine Mucus 0 SEEN Acetone Level NEGATIVE POC Glucose 10/04/18 21:07 WBC RBC Hgb Hct MCV MCH MCHC RDW RDW Differential Plt Count MPV Immature Gran % (Auto) Neut % (Auto) Lymph % (Auto) [place] % (Auto) Eos % (Auto) Baso % (Auto) Absolute Neuts (auto) Absolute Lymphs (auto) Total Counted Specimen Type Sample Site VBG pH VBG pO2 VBG O2 Sat (Calc) VBG O2 Content VBG Base Excess POC Mix VBG pCO2 Pt Tmp O2 Delivery Device Blood Gas Notified Whom Blood Gas Notified Time Sodium 134 L Potassium 4.3 Chloride 101 Carbon Dioxide 23.0 Anion Gap 10 BUN 14 Creatinine 0.96 Estim Creat Clear Calc 48.33 Est GFR (MDRD) Af Amer 75 Est GFR (MDRD) Non-Af 62 BUN/Creatinine Ratio 14.5 Glucose 520 H* Calcium 7.9 L Phosphorus Magnesium Troponin I Urine Color Urine Clarity Urine pH Ur Specific [place] Urine Protein Urine Glucose (UA) Urine Ketones Urine Occult Blood Urine Nitrite Urine Bilirubin Urine Urobilinogen Ur Leukocyte Esterase Urine RBC Urine WBC Ur Squamous Epith Cells Urine Bacteria Urine Mucus Acetone Level POC Glucose Clinical Impression(s) from Imaging Studies Chest X-Ray 10/04/18 18:50 IMPRESSION: No acute pulmonary pathology of the chest. Electronically Signed: Prakash Alaniz DO at 19:22 EST Tel [phone], Service support , Medications Given Discontinued Medications Sodium Chloride () 1,000 mls @ 999 mls/hr IV .Q1H1M ONE Stop: 10/04/18 19:43 Last Admin: 10/04/18 18:58 Dose: 999 mls/hr Insulin Human Lispro (Humalog Kwikpen (Bkc)) 15 unit SC X1 ONE Stop: 10/04/18 21:45 Last Admin: 10/04/18 22:25 Dose: 15 units Ondansetron HCl (Zofran) 4 mg IV X1 ONE Stop: 10/04/18 19:57 Last Admin: 10/04/18 20:17 Dose: 4 mg Emergency Department Course and Treatment: Patient was given IV fluids. Workup was performed to evaluate for any possible underlying causes of patient's acute hyperglycemia or any HHS or DKA. EKG showed a sinus rhythm with no ischemic changes. Patient's blood sugar was elevated at 519. She had no electrolyte derangements. Potassium was normal. No leukocytosis. Urine was positive for infection. Troponin negative. Negative ketones. No ketones in the urine either. Normal bicarb and pH is 7.41. Patient had no evidence of DKA or HHS on her workup. Patient received IV fluids and was feeling better afterwards. She was given subcutaneous insulin, and blood sugar remained greater than 500. Patient was started on additional fluids and IV Rocephin for treatment of her urinary tract infection. Patient's UTI may be contributing to her poorly controlled blood sugar. IV insulin was not initiated, as patient's is very well-appearing, hemodynamically stable, and is not in DKA or HHS. She was given additional 10 units of subcu insulin. She was discussed with the hospitalist and admitted for poorly controlled diabetes, symptomatic hyperglycemia and acute urinary tract infection. Treatment Plan: [] Disposition: [] Impression: symptomatic hyperglycemia, UTI, poorly controlled DM This note was generated with [employer]al[employer] dictation software. It may contain incorrect words, spelling, and punctuation that were not noted in review of the chart prior to signing ED Disposition - Plan for ED Patient: Chief Complaint: Hyperglycemia Referrals: Monster Salcedo MD [Primary Care Provider] -
--- NOTE | 2018-10-04 18:50 | RAD_ITS ---
STUDY: X-RAY CHEST REASON FOR EXAM: Female, 63 years old. Hyperglycemia TECHNIQUE: Single frontal view COMPARISON: September 18, 2018 FINDINGS: The lungs are clear and expanded. There is bilateral apical pleural thickening. Normal size heart. Normal mediastinum and jovan. Normal visualized pulmonary arteries. Normal visualized aortic arch and descending thoracic aorta. Mild degenerative changes of the thoracic spine. Normal visualized ribs, clavicles, and shoulders. There is no demonstrated abnormality of the visualized soft tissue structures of the upper abdomen. RAD/Chest 1 View (Portable) IMPRESSION: No acute pulmonary pathology of the chest. Electronically Signed: Prakash Alaniz DO at 19:22 EST Tel [phone], Service support ,
[2018-10-04] MEDS: 0.9% Normal Saline 1,000 ML 999 ML IV (18:58)
[2018-10-04 19:14] LABS: Bacteria 0 SEEN /hpf (None Seen); Mucous, Urine 0 SEEN /hpf (<or=2+); Red Blood Cells-Urine 0 SEEN /hpf (0-5)
[2018-10-04 19:15] LABS: Color, Urine Yellow (Yellow); Glucose, Dipstick 1000 mg/dl (Normal); Ketone-Dipstick Negative (Negative); Leukocyte Esterase-Dipstick 100 /ul (Negative); Nitrite-Dipstick Negative (Negative); Occult Blood-Urine Negative /ul (Negative); Protein-Dipstick Negative (Negative); Urine Bilirubin Dipstick Negative (Negative); Urine Urobilinogen Normal (Normal)
[2018-10-04 19:21] LABS: Absolute Lymphocyte Count 2.86 X10^3/ul (0.83-4.51); Absolute Neutrophil Count 4.8 X10^3/uL (2.0-7.7); Basophil# 0.02 X10^3/uL; Basophil% 0.2 % (0-1); Eosinophil# 0.22 X10^3/uL; Eosinophils% 2.6 % (0-5); Hematocrit 38.3 % (37-47); Hemoglobin 13.4 g/dl (12.0-15.0); Lymphocyte # 2.86 X10^3/ul (4.0); Lymphocyte % 33.7 % (19-41); Mean Corpuscular Hgb 31.1 pg (27.0-32.0); Mean Corpuscular Volume 88.9 fL (81-99); Monocyte# 0.54 X10^3/uL; Monocyte% 6.4 % (0-10); Neutrophil # 4.82 X10^3/uL (2.7-7.7); Neutrophil % 56.7 % (47-70); POSITIVE COUNT NO; POSITIVE DIFFERENTIAL NO; POSITIVE MORPHOLOGY NO; Platelet Count 221 K/mm3 (150-450); RBC Distribution Width CV 12.1 % (11.6-14.6); RBC Distribution Width SD 38.9 fl (35.1-43.9); Red Blood Count 4.31 M/mm3 (4.2-5.4); White Blood Count 8.5 K/mm3 (4.4-11.0)
[2018-10-04 19:27] LABS: White Blood Cells 10-25 SEEN /hpf (0-5)
[2018-10-04 19:28] LABS: Squamous Epithelial Cells - UA 0-5 SEEN /hpf (5-10); Urine Clarity Sl Cldy (Clear)
[2018-10-04 19:41] LABS: Anion Gap 10 (5-15); BUN 15 mg/dL (7-18); BUN/Creat Ratio 12.7 RATIO (10-20); Calcium,Total 8.6 mg/dL (8.5-10.1); Chloride 98 mmol/L (98-107); Creatinine, Serum 1.18 mg/dL (0.55-1.02); EST Glomerular Filtration Rate 49 mL/min (>60); Est Glom Filt Rate - Afr Amer 59 mL/min (>60); Estimated Creatinine Clearance 39.32 ml/min; Glucose 519 mg/dL (74-106); Magnesium 1.9 mg/dL (1.6-2.6); Phosphorus 3.4 mg/dL (2.5-4.9); Potassium 3.9 mmol/L (3.5-5.1); Sodium Level 131 mmol/L (136-145)
[2018-10-04 19:51] LABS: Blood Gas Specimen Type VEN; O2 Delivery Device Room Air; SITE OTHER; Time Given 1950; VBG BASE EXCESS -2 mmol/L (-1.0-3.5); VBG Bicarbonate 22 mmol/L (22-26); VBG Oxygen Content 23 mmol/L (23-33); VBG PO2 51 mmHg (25-40); VBG SO2 87 % (50-70); VBG pCO2 34.6 mmHg (41-51); VBG pH 7.42 (7.32-7.42)
[2018-10-04] MEDS: Ondansetron 4 MG/2 ML Vial IV (20:17)
[2018-10-04 20:19] VITALS: BP 112/59; PULSE 78; RESP 20; O2SAT 93
[2018-10-04 21:35] LABS: Anion Gap 10 (5-15); BUN 14 mg/dL (7-18); BUN/Creat Ratio 14.5 RATIO (10-20); Calcium,Total 7.9 mg/dL (8.5-10.1); Chloride 101 mmol/L (98-107); Creatinine, Serum 0.96 mg/dL (0.55-1.02); EST Glomerular Filtration Rate 62 mL/min (>60); Est Glom Filt Rate - Afr Amer 75 mL/min (>60); Estimated Creatinine Clearance 48.33 ml/min; Potassium 4.3 mmol/L (3.5-5.1); Sodium Level 134 mmol/L (136-145)
[2018-10-04] MEDS: Insulin Lispro 100 UNIT/ML INSULN.PEN 15 UNIT SC (22:25)
[2018-10-04 22:27] VITALS: BP 120/80; PULSE 69; RESP 14; O2SAT 97
[2018-10-04 22:37] LABS: Glucose 520 mg/dL (74-106)
[2018-10-04 23:00] LABS: Bedside Glucose > 500 mg/dL (70-110)
[2018-10-04] MEDS: 0.9% Normal Saline 1,000 ML 250 ML IV (23:20)
[2018-10-04] MEDS: Ceftriaxone 1 GM/50 ML BAG IV (23:39)
--- NOTE | 2018-10-04 23:53 | HP.PCM_ITS ---
Problem List (1) Acute hyperglycemia Status: Acute (2) Abnormal finding on urinalysis Status: Acute History of Present Illness Date of Admission: 10/04/18 Chief Complaint: elevated blood glucose The patient is a 63 year old F with a significant history of former tobacco use; heart failure; hypertension; diabetes type 2; depression; and insomnia who presented with high blood glucose. Patient reported that she had a funny feeling that prompted her to check her blood glucose. She described the funny feeling as feeling lightheaded and weird. Her symptoms started about an hour prior to presentation. She checked her blood glucose and her reading was high. She drank some water and checked her blood glucose again but a reading remained high for which reason she came to emergency department. Associated with her symptoms is polydipsia; polyuria and anorexia. At the emergency department her blood glucose was in the 500s. She received IV fluids and 15 units of short acting insulin. Past Medical History Past Medical History (Chronic Problems): Chronic Problems GERD (gastroesophageal reflux disease) (Chronic) Uncontrolled type 2 diabetes mellitus (Chronic) Benign essential hypertension (Chronic) Type 2 diabetes mellitus (Chronic) Hyperlipidemia (Chronic) Coronary artery disease (Chronic) ROMEL LAD 01/21 COPD (chronic obstructive pulmonary disease) (Chronic) cont smoking Tobacco abuse (Chronic) NSTEMI (non-ST elevated myocardial infarction) (Chronic) Allergies Penicillins Allergy (Verified 10/04/18 17:22) Hives morphine Adverse Reaction (Mild, Verified 10/04/18 17:22) Itching hydrocodone bitartrate [From Vicodin] Adverse Reaction (Verified 10/04/18 17:22) Vomiting ibuprofen Adverse Reaction (Verified 10/04/18 17:22) Vomiting Home Medications: Ambulatory Orders Medication Instructions Recorded Lisinopril [Zestril] 5 mg PO DAILY 08/17/15 Aspirin [Adult Low Dose Aspirin EC] 81 mg PO DAILY 02/04/16 Furosemide [Lasix] 40 mg PO DAILY 02/04/16 Simvastatin [Zocor] 40 mg PO QHS 01/24/17 Clopidogrel Bisulfate [Plavix] 75 mg PO DAILY 06/23/17 Metoprolol Tartrate [Lopressor 25 mg PO BID 06/23/17 (beta elder)] Nitroglycerin [Nitrostat] 0.4 mg SUBLINGUAL Q5M PRN 09/28/17 Insulin Detemir [Levemir FlexPen] 23 units SC BREAKFAST 02/18/18 Glimepiride [Amaryl] 4 mg PO DAILY #30 tab 05/31/18 Insulin Detemir [Levemir Flextouch] 26 unit SC QHS #1 insuln.pen 05/31/18 Metformin HCl 1,000 mg PO BID #60 tab 05/31/18 Cyclobenzaprine [Flexeril] 10 mg PO TID PRN #20 tablet 07/02/18 [place] Carbonate 300 mg PO BID 09/14/18 Quetiapine Fumarate [Seroquel] 100 mg PO QHS 09/14/18 Risperidone [Risperdal] 4 mg PO QHS 09/14/18 Pantoprazole Sodium [Protonix] 40 mg PO DAILY 10/05/18 Surgical History: angioplasty, appendectomy, cholecystectomy, hysterectomy, - - LAD PCI/ROMEL-02/08/2014 at [facility], stent placement at [facility] 03/15/17 along with percutaneous balloon angioplasty Lives: With Family Smoking Status: Former smoker Alcohol: None - *Family History Maternal History Items: Cancer - Uterine cancer, Diabetes, Heart Disease Paternal History Items: Heart Disease Sibling History Items: Diabetes, Heart Disease, Hypertension Review of Systems Constitutional: Reports: Anorexia. Denies: Chills, Fever, Weight Change HEENT: Denies: Head Aches, Sinus Congestion, Sinus Drainage Cardiovascular: Reports: Light Headedness. Denies: Chest Pain, Palpitations Respiratory: Denies: Cough, Shortness of breath at rest, Sputum production Gastrointestinal: Denies: Abdominal Pain, Nausea, Vomiting Genitourinary: Reports: Frequency. Denies: Dysuria Musculoskeletal: Denies: Joint Pain, Joint Tenderness Skin: Denies: Rash, Wounds Neurological: Denies: Numbness, Tingling, Focal weakness Psychiatric: Denies: Anxiety, Depression, Homicidal Ideations, Suicidal Ideations Endocrine: Reports: Polydipsia, Polyuria Hematologic/ Lymphatic: Denies: Easy Bruising, Easy Bleeding VTE Information - Inpt Only VTE Present on Admission: No VTE Mechan Device Prophylaxis: None VTE Pharm Prophylaxis ordered?: Yes Patient Problems: Active and Suspected Problems Acute hyperglycemia (Acute) Abnormal finding on urinalysis (Acute) - Physical Exam General: Alert, Oriented x3, Cooperative HEENT: Atraumatic, PERRLA, EOMI, Normocephalic Neck: Supple, No JVD, Negative Carotid Bruits Lungs: Clear to auscultation, Normal air movement Cardiovascular: Regular rate, No murmurs Abdomen: Bowel Sounds Present, Soft, Non Tender Extremities: No edema, Capillary Refill Less than 3 Seconds Skin: No rashes, No breakdown Musculoskeletal: No Tenderness to Palpation of Joints or Extremities Neurological: Neuro grossly intact Psych/Mental Status: Normal Affect, Appropriate Vital Signs Temp Pulse Resp BP Pulse Ox 98.6 F 69 14 120/80 97 10/04/18 17:22 10/04/18 22:27 10/04/18 22:27 10/04/18 22:27 10/04/18 22:27 Oxygen Delivery Method Room Air Weight: 68.492 kg Body Mass Index (BMI) 26.7 Finger Stick Blood Glucose 507 Laboratory Tests Past 24 Hrs 10/04/18 10/04/18 10/04/18 18:55 18:55 18:55 WBC 8.5 RBC 4.31 Hgb 13.4 Hct 38.3 MCV 88.9 MCH 31.1 MCHC 35.0 RDW 12.1 RDW Differential 38.9 Plt Count 221 MPV 11.0 Immature Gran % (Auto) 0.400 Neut % (Auto) 56.7 Lymph % (Auto) 33.7 [place] % (Auto) 6.4 Eos % (Auto) 2.6 Baso % (Auto) 0.2 Absolute Neuts (auto) 4.8 Absolute Lymphs (auto) 2.86 Total Counted Not Reportable Specimen Type Sample Site VBG pH VBG pO2 VBG O2 Sat (Calc) VBG O2 Content VBG Base Excess POC Mix VBG pCO2 Pt Tmp O2 Delivery Device Blood Gas Notified Whom Blood Gas Notified Time Sodium 131 L Potassium 3.9 Chloride 98 Carbon Dioxide 23.0 Anion Gap 10 BUN 15 Creatinine 1.18 H Estim Creat Clear Calc 39.32 Est GFR (MDRD) Af Amer 59 L Est GFR (MDRD) Non-Af 49 L BUN/Creatinine Ratio 12.7 Glucose 519 H* Calcium 8.6 Phosphorus 3.4 Magnesium 1.9 Troponin I < 0.015 Urine Color Urine Clarity Urine pH Ur Specific [place] Urine Protein Urine Glucose (UA) Urine Ketones Urine Occult Blood Urine Nitrite Urine Bilirubin Urine Urobilinogen Ur Leukocyte Esterase Urine RBC Urine WBC Ur Squamous Epith Cells Urine Bacteria Urine Mucus Acetone Level NEGATIVE 10/04/18 10/04/18 10/04/18 19:05 19:41 21:07 WBC RBC Hgb Hct MCV MCH MCHC RDW RDW Differential Plt Count MPV Immature Gran % (Auto) Neut % (Auto) Lymph % (Auto) [place] % (Auto) Eos % (Auto) Baso % (Auto) Absolute Neuts (auto) Absolute Lymphs (auto) Total Counted Specimen Type [place] Sample Site OTHER VBG pH 7.42 VBG pO2 51 H VBG O2 Sat (Calc) 87 H VBG O2 Content 23 VBG Base Excess -2 L POC Mix VBG pCO2 Pt Tmp 34.6 L O2 Delivery Device Room Air Blood Gas Notified Whom ED Blood Gas Notified Time 1950 Sodium 134 L Potassium 4.3 Chloride 101 Carbon Dioxide 23.0 Anion Gap 10 BUN 14 Creatinine 0.96 Estim Creat Clear Calc 48.33 Est GFR (MDRD) Af Amer 75 Est GFR (MDRD) Non-Af 62 BUN/Creatinine Ratio 14.5 Glucose 520 H* Calcium 7.9 L Phosphorus Magnesium Troponin I Urine Color Yellow Urine Clarity Sl Cldy Urine pH 6.0 Ur Specific [place] 1.010 Urine Protein Negative Urine Glucose (UA) 1000 H Urine Ketones Negative Urine Occult Blood Negative Urine Nitrite Negative Urine Bilirubin Negative Urine Urobilinogen Normal Ur Leukocyte Esterase 100 H Urine RBC 0 SEEN Urine WBC 10-25 SEEN Ur Squamous Epith Cells 0-5 SEEN Urine Bacteria 0 SEEN Urine Mucus 0 SEEN Acetone Level POC Glucose 10/04/18 10/04/18 22:57 17:49 POC Glucose > 500 H* 500 H* Assessment/Plan All Active Problems Acute hyperglycemia (Acute) Abnormal finding on urinalysis (Acute) VTE (venous thromboembolism) (Resolved) The patient is a 63 year old F with a significant history of former tobacco use heart failure; hypertension; diabetes type 2; depression; and insomnia who presented with high blood glucose but with a normal pH and with no acetone in her urine. Acute hyperglycemia. At emergency departments her VBG showed normal pH; she did not have any anion gap and her serum acetone was negative implying patient was not in DKA. The etiology of his acute hypoglycemia is unclear at this time. Patient received 15 units of short acting insulin and IV fluids at the emergency department. On admission on the floor her blood glucose had dropped to 103. Unlikely that she was in hyperosmolar hyperglycemic state. Will restart patient on home regimen of metformin 1000 mg twice daily; Glimepiride 4 mg daily and basal insulin twice daily. Fingerstick q. before meals at bedtime and 3 AM with hypoglycemic protocol. Review of old records show that her A1c on 08/25/2018 was 11.2. Abnormal urinalysis At the emergency department patient had a glucose of 1000 which most likely is due to have a acute hyperglycemia She had leukocyte Estrace of 100 that could be due to inflammation from her acute bacteria. Urine WBC was 10-25. However she did not have any bacteria. Her leukocyte Estrace was negative. She received IV ceftriaxone at emergency department. We will do urine culture and hold off further antibiotics. Pseudohyponatremia. Sodium on admission was 131 Her corrected sodium was 138. Hypocalcemia. Her calcium was 8.6 on BMP. In 4 hours time her calcium had dropped to 7.9. We will repeat calcium in a.m. CAD status post stents Stable with no chest pain. Aspirin and Plavix continued. Heart failure Reports history of heart failure Stress echocardiogram on 03/16/2018 showed estimated ejection fraction of 65%. Likely heart failure is preserved ejection fraction. Stable Lasix continued Hypertension On admission blood pressure was fairly controlled. Lisinopril and Lasix continued. Trend blood pressures and adjust blood pressure medication as necessary. Depression/anxiety/bipolar. Risperdal, Seroquel and lithium continued. Insomnia Seroquel continued. DVT prophylaxis Subcutaneous Lovenox ordered. Code Visit OBSV E&M: 10173 Initial observation care L3
[2018-10-05] VITALS (16 sets, daily range): BP systolic 103–123; BP diastolic 50–64; PULSE 63–81; RESP 16–20; TEMP 36.4–37.3; O2SAT 91–98; BMI 26.4
[2018-10-05 01:00] LABS: Bedside Glucose 103 mg/dL (70-110)
[2018-10-05] MEDS: RisperiDONE 2 MG Tablet 4 MG PO (02:01)
[2018-10-05] MEDS: QUEtiapine 100 MG Tablet PO (02:01)
[2018-10-05] MEDS: metFORMIN HCl 1,000 MG Tablet 1000 MG PO ×3 (02:01→17:23)
[2018-10-05 03:11] LABS: Bedside Glucose 160 mg/dL (70-110)
[2018-10-05 06:04] LABS: Absolute Lymphocyte Count 3.86 X10^3/ul (0.83-4.51); Absolute Neutrophil Count 2.9 X10^3/uL (2.0-7.7); Basophil# 0.02 X10^3/uL; Basophil% 0.3 % (0-1); Eosinophil# 0.27 X10^3/uL; Eosinophils% 3.5 % (0-5); Hematocrit 32.7 % (37-47); Hemoglobin 11.5 g/dl (12.0-15.0); Lymphocyte # 3.86 X10^3/ul (4.0); Lymphocyte % 50.2 % (19-41); Mean Corp Hgb Conc 35.2 g/gl (32-36); Mean Corpuscular Hgb 31.7 pg (27.0-32.0); Mean Corpuscular Volume 90.1 fL (81-99); Mean Platelet Vol. 11.1 fl (6.2-12.0); Monocyte# 0.57 X10^3/uL; Monocyte% 7.4 % (0-10); Neutrophil # 2.94 X10^3/uL (2.7-7.7); Neutrophil % 38.2 % (47-70); Platelet Count 228 K/mm3 (150-450); RBC Distribution Width CV 11.9 % (11.6-14.6); RBC Distribution Width SD 37.1 fl (35.1-43.9); Red Blood Count 3.63 M/mm3 (4.2-5.4); White Blood Count 7.7 K/mm3 (4.4-11.0)
[2018-10-05 06:22] LABS: POSITIVE COUNT NO; POSITIVE DIFFERENTIAL NO; POSITIVE MORPHOLOGY NO
[2018-10-05 06:30] LABS: Anion Gap 8 (5-15); BUN 14 mg/dL (7-18); BUN/Creat Ratio 16.9 RATIO (10-20); Calcium,Total 8.3 mg/dL (8.5-10.1); Chloride 108 mmol/L (98-107); Creatinine, Serum 0.83 mg/dL (0.55-1.02); EST Glomerular Filtration Rate 73 mL/min (>60); Est Glom Filt Rate - Afr Amer 89 mL/min (>60); Glucose 174 mg/dL (74-106); Potassium 3.8 mmol/L (3.5-5.1); Sodium Level 142 mmol/L (136-145)
[2018-10-05 06:55] LABS: Bedside Glucose 185 mg/dL (70-110)
--- NOTE | 2018-10-05 07:49 | CASEMGMT ---
Patient has a healthcare POA on file. She does not have healthcare LW and does not want information on LW. Carmen WADE MSW
[2018-10-05] MEDS: Enoxaparin 40 MG/0.4 ML Syringe SC (08:27)
[2018-10-05] MEDS: Clopidogrel Bisulfate 75 MG Tablet PO (08:30)
[2018-10-05] MEDS: Lithium Carbonate 300mg Capsule 300 MG PO (08:30)
[2018-10-05] MEDS: Metoprolol Tartrate 25 MG Tablet PO (08:30)
[2018-10-05] MEDS: Lisinopril 5 MG Tablet PO (08:30)
[2018-10-05] MEDS: Glimepiride 4 MG Tablet PO (08:31)
[2018-10-05] MEDS: Aspirin E.C. 81 MG Tablet PO (08:31)
[2018-10-05] MEDS: Furosemide 40 MG Tablet PO (08:31)
[2018-10-05] MEDS: Pantoprazole Sodium 40 MG Tablet PO (08:32)
--- NOTE | 2018-10-05 11:05 | CASEMGMT ---
Addendum entered by Shon Queen 10/05/18 18:01: 1250: To room to complete assessment. Pt resting in bed. Agreeable to answering remainder of questions. Pt states she lives in a trailer with her and daughter. States has 4 steps to enter and states no difficulty with stairs prior to coming to hospital. She states she does not drive and her or daughter provide transportation. Pt states is independent with personal ADL's and daughter does home mgmt tasks. Pt states she has all her diabetic supplies, including insulin and glucometer. Pt states has never been to the [facility]abetic [facility]. Provided [facility] card. Discussed [facility] with pt and she states is interested in their services. Will make [facility] referral. PT/OT evals pending. Pt stated if therapy is recommended she would be agreeable to Out-pt therapy. Plan: Home with possible Out-pt therapy. Original Note: LIZBET MONDRAGON ASSESSMENT Face to Face with patient for initial transition planning/care coordination assessment. LIZBET MONDRAGON introduced self and role at [facility]. Pt voices understanding and consents to assessment at this time. Pt sitting up recliner chair at this time, talking with daughter who is sitting beside recliner. Pt started answering questions. Able to verify care providers, pharmacy, and demographics. PCP: Denisse Gee pharmacy: [facility] Insurance: [facility]. Does not currently have supplemental insurance or prescription coverage. *States just signed up for supplemental AARP and prescription coverage for 2019. As pt was telling LIZBET MONDRAGON about signing up for insurance for 2019, noted pt having difficulty finding words and some words were slurred. Asked daughter if this is new for patient and she stated this is new and stated, i'm wondering if she may be having a stroke. Pt's RN, Carley, came into room just as this was occurring and she was notified immediately. LIZBET MONDRAGON notified charge nurse, Nadira, immediately per Carley's request. Jamil ADRIANN LIZBET MONDRAGON
--- NOTE | 2018-10-05 11:12 | CT_ITS ---
STUDY: CT BRAIN WITHOUT CONTRAST REASON FOR EXAM: Female, 63 years old. Right-sided numbness and tingling. RADIATION DOSAGE (If Supplied By Facility): CTDIvol = ( 44.99 ) mGy, DLP = ( 745.49 ) mGycm TECHNIQUE: Transaxial CT imaging of the brain was performed without administration of intravenous contrast material. Individualized dose optimization techniques were used for this CT. COMPARISON: 05/30/2018. FINDINGS: Normal soft tissue structures. Normal calvarium. Normal size ventricles and extra-axial spaces for the patient's age. Normal white matter tracts of the cerebral hemispheres. There are small punctate calcifications of the basal ganglia which are seen in the aging brain as a normal variant. Normal brainstem. Normal cerebellum. There is no intracranial hemorrhage. There are no findings of an acute ischemic infarction. Normal visualized paranasal sinuses. CT/Brain/Head without Contrast IMPRESSION: Normal unenhanced CT scan of the brain. N.B. : The above information has been verbally conveyed by Izaiah Maza MD to Dr. Loya;[phone], on 10/05/2018 11:45:54 (ET). Electronically Signed: Izaiah Maza MD at 11:40 EST , Service support ,
[2018-10-05 11:26] LABS: Bedside Glucose 190 mg/dL (70-110)
--- NOTE | 2018-10-05 11:36 | PCM.CONS.GEN ---
Reason for Consult Date of Consultation: 10/05/18 Reason for Consultation: Stroke team History of Present Illness: This is a 63-year-old female admitted as below, daughter this morning by phone noted abnormal speech, nursing staff noted abnormal speech a few minutes ago as well as left sided weakness. Stroke team was called. Patient currently denies any pain. Denies any weakness. She is on lithium for bipolar but she denies any mood issues currently. Admit note: The patient is a 63 year old F with a significant history of former tobacco use; heart failure; hypertension; diabetes type 2; depression; and insomnia who presented with high blood glucose. Patient reported that she had a funny feeling that prompted her to check her blood glucose. She described the funny feeling as feeling lightheaded and weird. Her symptoms started about an hour prior to presentation. She checked her blood glucose and her reading was high. She drank some water and checked her blood glucose again but a reading remained high for which reason she came to emergency department. Associated with her symptoms is polydipsia; polyuria and anorexia. At the emergency department her blood glucose was in the 500s. She received IV fluids and 15 units of short acting insulin. Past Medical History Past Medical History (Chronic Problems): Chronic Problems GERD (gastroesophageal reflux disease) (Chronic) Uncontrolled type 2 diabetes mellitus (Chronic) Benign essential hypertension (Chronic) Type 2 diabetes mellitus (Chronic) Hyperlipidemia (Chronic) Coronary artery disease (Chronic) ROMEL LAD 01/21 COPD (chronic obstructive pulmonary disease) (Chronic) cont smoking Tobacco abuse (Chronic) NSTEMI (non-ST elevated myocardial infarction) (Chronic) Allergies Penicillins Allergy (Verified 10/04/18 17:22) Hives morphine Adverse Reaction (Mild, Verified 10/04/18 17:22) Itching hydrocodone bitartrate [From Vicodin] Adverse Reaction (Verified 10/04/18 17:22) Vomiting ibuprofen Adverse Reaction (Verified 10/04/18 17:22) Vomiting Home Medications: Ambulatory Orders Medication Instructions Recorded Lisinopril [Zestril] 5 mg PO DAILY 08/17/15 Aspirin [Adult Low Dose Aspirin EC] 81 mg PO DAILY 02/04/16 Furosemide [Lasix] 40 mg PO DAILY 02/04/16 Simvastatin [Zocor] 40 mg PO QHS 01/24/17 Clopidogrel Bisulfate [Plavix] 75 mg PO DAILY 06/23/17 Metoprolol Tartrate [Lopressor 25 mg PO BID 06/23/17 (beta elder)] Nitroglycerin [Nitrostat] 0.4 mg SUBLINGUAL Q5M PRN 09/28/17 Insulin Detemir [Levemir FlexPen] 23 units SC BREAKFAST 02/18/18 Glimepiride [Amaryl] 4 mg PO DAILY #30 tab 05/31/18 Insulin Detemir [Levemir Flextouch] 26 unit SC QHS #1 insuln.pen 05/31/18 Metformin HCl 1,000 mg PO BID #60 tab 05/31/18 Cyclobenzaprine [Flexeril] 10 mg PO TID PRN #20 tablet 07/02/18 [place] Carbonate 300 mg PO BID 09/14/18 Quetiapine Fumarate [Seroquel] 100 mg PO QHS 09/14/18 Risperidone [Risperdal] 4 mg PO QHS 09/14/18 Pantoprazole Sodium [Protonix] 40 mg PO DAILY 10/05/18 Surgical History: angioplasty, appendectomy, cholecystectomy, hysterectomy, - - LAD PCI/ROMEL-02/08/2014 at [facility], stent placement at [facility] 03/15/17 along with percutaneous balloon angioplasty Lives: With Family Smoking Status: Former smoker Alcohol: None - *Family History Maternal History Items: Cancer - Uterine cancer, Diabetes, Heart Disease Paternal History Items: Heart Disease Sibling History Items: Diabetes, Heart Disease, Hypertension Review of Systems Neurological: Reports: Change in Speech, Slurred speech, Numbness, Tingling. Denies: Balance problems, Blurred vision, Double vision, Confusion, Difficulty swallowing, Focal weakness, Headaches, Incoordination Psychiatric: Denies: Anxiety, Depression Patient Problems: Active and Suspected Problems Acute hyperglycemia (Acute) Abnormal finding on urinalysis (Acute) - Physical Exam General: Alert, Oriented x3, Cooperative, No apparent distress HEENT: Atraumatic, PERRLA, EOMI Neurological: Cranial nerves II-XII grossly intact, Deep Tendon Reflexes 2+/4 and Symmetrical, Neuro grossly intact, Motor Exam 5/5 strength throughout, Slurred Speech Vital Signs Temp Pulse Resp BP Pulse Ox 36.6 C 81 20 H 108/54 L 97 10/05/18 11:21 10/05/18 11:21 10/05/18 11:21 10/05/18 11:21 10/05/18 11:21 Oxygen Delivery Method Room Air Weight: 67.6 kg Body Mass Index (BMI) 26.4 Finger Stick Blood Glucose 190 Laboratory Tests Past 24 Hrs 10/04/18 10/04/18 10/04/18 18:55 18:55 18:55 WBC 8.5 RBC 4.31 Hgb 13.4 Hct 38.3 MCV 88.9 MCH 31.1 MCHC 35.0 RDW 12.1 RDW Differential 38.9 Plt Count 221 MPV 11.0 Immature Gran % (Auto) 0.400 Neut % (Auto) 56.7 Lymph % (Auto) 33.7 King % (Auto) 6.4 Eos % (Auto) 2.6 Baso % (Auto) 0.2 Absolute Neuts (auto) 4.8 Absolute Lymphs (auto) 2.86 Total Counted Not Reportable Specimen Type Sample Site VBG pH VBG pO2 VBG O2 Sat (Calc) VBG O2 Content VBG Base Excess POC Mix VBG pCO2 Pt Tmp O2 Delivery Device Blood Gas Notified Whom Blood Gas Notified Time Sodium 131 L Potassium 3.9 Chloride 98 Carbon Dioxide 23.0 Anion Gap 10 BUN 15 Creatinine 1.18 H Estim Creat Clear Calc 39.32 Est GFR (MDRD) Af Amer 59 L Est GFR (MDRD) Non-Af 49 L BUN/Creatinine Ratio 12.7 Glucose 519 H* Calcium 8.6 Phosphorus 3.4 Magnesium 1.9 Troponin I < 0.015 Urine Color Urine Clarity Urine pH Ur Specific [place] Urine Protein Urine Glucose (UA) Urine Ketones Urine Occult Blood Urine Nitrite Urine Bilirubin Urine Urobilinogen Ur Leukocyte Esterase Urine RBC Urine WBC Ur Squamous Epith Cells Urine Bacteria Urine Mucus Acetone Level NEGATIVE 10/04/18 10/04/18 10/04/18 19:05 19:41 21:07 WBC RBC Hgb Hct MCV MCH MCHC RDW RDW Differential Plt Count MPV Immature Gran % (Auto) Neut % (Auto) Lymph % (Auto) King % (Auto) Eos % (Auto) Baso % (Auto) Absolute Neuts (auto) Absolute Lymphs (auto) Total Counted Specimen Type [place] Sample Site OTHER VBG pH 7.42 VBG pO2 51 H VBG O2 Sat (Calc) 87 H VBG O2 Content 23 VBG Base Excess -2 L POC Mix VBG pCO2 Pt Tmp 34.6 L O2 Delivery Device Room Air Blood Gas Notified Whom ED Blood Gas Notified Time 1950 Sodium 134 L Potassium 4.3 Chloride 101 Carbon Dioxide 23.0 Anion Gap 10 BUN 14 Creatinine 0.96 Estim Creat Clear Calc 48.33 Est GFR (MDRD) Af Amer 75 Est GFR (MDRD) Non-Af 62 BUN/Creatinine Ratio 14.5 Glucose 520 H* Calcium 7.9 L Phosphorus Magnesium Troponin I Urine Color Yellow Urine Clarity Sl Cldy Urine pH 6.0 Ur Specific [place] 1.010 Urine Protein Negative Urine Glucose (UA) 1000 H Urine Ketones Negative Urine Occult Blood Negative Urine Nitrite Negative Urine Bilirubin Negative Urine Urobilinogen Normal Ur Leukocyte Esterase 100 H Urine RBC 0 SEEN Urine WBC 10-25 SEEN Ur Squamous Epith Cells 0-5 SEEN Urine Bacteria 0 SEEN Urine Mucus 0 SEEN Acetone Level 10/05/18 10/05/18 05:40 05:40 WBC 7.7 RBC 3.63 L Hgb 11.5 L Hct 32.7 L MCV 90.1 MCH 31.7 MCHC 35.2 RDW 11.9 RDW Differential 37.1 Plt Count 228 MPV 11.1 Immature Gran % (Auto) 0.400 Neut % (Auto) 38.2 L Lymph % (Auto) 50.2 H King % (Auto) 7.4 Eos % (Auto) 3.5 Baso % (Auto) 0.3 Absolute Neuts (auto) 2.9 Absolute Lymphs (auto) 3.86 Total Counted Not Reportable Specimen Type Sample Site VBG pH VBG pO2 VBG O2 Sat (Calc) VBG O2 Content VBG Base Excess POC Mix VBG pCO2 Pt Tmp O2 Delivery Device Blood Gas Notified Whom Blood Gas Notified Time Sodium 142 Potassium 3.8 Chloride 108 H Carbon Dioxide 26.0 Anion Gap 8 BUN 14 Creatinine 0.83 Estim Creat Clear Calc 55.90 Est GFR (MDRD) Af Amer 89 Est GFR (MDRD) Non-Af 73 BUN/Creatinine Ratio 16.9 Glucose 174 H Calcium 8.3 L Phosphorus Magnesium Troponin I Urine Color Urine Clarity Urine pH Ur Specific [place] Urine Protein Urine Glucose (UA) Urine Ketones Urine Occult Blood Urine Nitrite Urine Bilirubin Urine Urobilinogen Ur Leukocyte Esterase Urine RBC Urine WBC Ur Squamous Epith Cells Urine Bacteria Urine Mucus Acetone Level POC Glucose 1210/05/18 10/05/18 11:10 06:43 03:06 POC Glucose 190 H 185 H 160 H 10/05/18 10/04/18 10/04/18 00:52 22:57 17:49 POC Glucose 103 > 500 H* 500 H* CT head reviewed, no acute. Assessment/Plan All Active Problems Acute hyperglycemia (Acute) Abnormal finding on urinalysis (Acute) VTE (venous thromboembolism) (Resolved) Dysarthria: Currently there are no stroke symptoms therefore not a candidate for TPA and stroke team will be canceled. On my examination she had some nonphysiologic left-sided drift which was distractible. She has had some hyperglycemia, she is on lithium by history and she has a history of bipolar withdrawal confounding factors. Normal blood pressure and sinus rhythm on telemetry both are reassuring. Plan: MRI Echo Continue telemetry monitoring PT, OT and speech therapy evaluation Continue aspirin therapy
--- NOTE | 2018-10-05 11:42 | MRI_ITS ---
STUDY: MRI BRAIN WITH AND WITHOUT CONTRAST REASON FOR EXAM: Female, 63 years old. Aphasia. Slurred speech. TECHNIQUE: Standardized multiplanar fat and water weighted pulse sequences were obtained. 7 ml of Gadavist contrast material was administered intravenously for the contrast portion of the examination. COMPARISON: CT, earlier the same day. MRI October 05 May 31, 2018 FINDINGS: Normal size of the ventricles and extra-axial spaces for the patient's age. Normal white matter tracts of the supratentorial brain. There is no evidence for recent intracranial ischemia or other cause of cytotoxic edema on diffusion weighted imaging (DWI). Normal T2* images of the brain without demonstrated susceptibility artifact. There is no demonstrated hemosiderin stain. Normal bilateral basal ganglia. Normal thalami. There is no extra-axial fluid accumulation. Normal flow voids within the major intracranial circulation suggesting patency by spin echo criteria. Normal venous enhancement. There is no enhancing intra-axial or extra-axial abnormality. Normal sella turcica, pituitary gland, infundibular stalk, optic chiasm and hypothalamus. Normal tectal plate and pineal gland. Normal midbrain, pascual and medulla. Normal cerebellum. Normal basal cisterns. Normal bilateral temporal bones. Normal bilateral internal auditory canals. No demonstrated orbital abnormality, within the constraints of a routine brain study. Normal visualized paranasal sinuses. Normal calvarium and skull base. Normal visualized soft tissue structures. Normal visualized upper cervical spine. MRI/Brain W/WO Contrast IMPRESSION: Normal unenhanced and enhanced MRI of the brain. Electronically Signed: Cezar Francois MD at 17:41 EST , Service support ,
--- NOTE | 2018-10-05 11:43 | ECHOD_ITS ---
Reason For Study: TIA/CVA Procedure This was a 2D Doppler, Color Flow transthoracic echocardiogram. The exam was of adequate technical quality. Exam performed portable in patient room. Left Ventricle Normal LV size. Left ventricular systolic function is normal. The estimated ejection fraction is 65 %. No evidence for diastolic dysfunction. No regional wall motion abnormalities noted. Right Ventricle Normal RV size. Normal systolic function. Atria Normal left atrium. Normal right atrium. No doppler evidence for ASD. Mitral Valve There is no mitral annular calcification. Anterior leaflet diffuse mitral valve thickening. Mild focal mitral valve calcification of the anterior leaflet. Trivial mitral valve insufficiency. Tricuspid Valve Normal tricuspid valve. Trivial tricuspid valve insufficiency. Right ventricular systolic pressure estimated to be 24 mmHg. Aortic Valve Trisinus/trileaflet aortic valve. Mild diffuse aortic valve calcification. Mild (1+) aortic valve insufficiency. Pulmonic Valve The pulmonic valve is not well visualized. Great Vessels Normal sized aortic root. Pericardium/Pleural No pericardial effusion. Medication Performed a rapid injection of agitated mix of 9 cc saline and 1cc air to assess for atrial septal defect. MMode/2D Measurements & Calculations LVIDd: 3.8 cm IVSd: 0.98 cm Ao root diam: 2.7 cm LVIDs: 2.3 cm LVPWd: 0.92 cm RVDd: 2.7 cm FS: 38.1 % LAV(MOD-bp): 33.0 ml LVAd ap4: 23.5 cm2 SV(MOD-sp4): 43.2 ml LAV(MOD-bp) Indexed: 19.3 ml/m2 EDV(MOD-sp4): 63.0 ml LAV(MOD-sp2): 31.0 ml EDV(sp4-el): 66.3 ml LAV(MOD-sp4): 31.7 ml LVAs ap4: 11.9 cm2 ESV(MOD-sp4): 19.8 ml ESV(sp4-el): 21.0 ml EF(MOD-sp4): 68.5 % EF(sp4-el): 68.4 % SV(sp4-el): 45.3 ml LA A4 area: 13.4 cm2 LA dimension(2D): 3.3 cm RA A4 area: 11.7 cm2 Time Measurements MV dec time: 0.25 sec Doppler Measurements & Calculations MV E max chris: 74.1 cm/sec Lat Peak E' Chris: 9.5 cm/sec Med Peak E' Chris: 6.8 cm/sec MV A max chris: 92.5 cm/sec E/E' lat: 7.8 E/E' med: 10.9 MV E/A: 0.80 Ao V2 max: 142.9 cm/sec AI max chris: 363.4 cm/sec LV V1 max: 150.2 cm/sec Ao max P.2 mmHg AI max P.8 mmHg LV V1 max P.0 mmHg AI dec slope: 216.1 cm/sec2 AI P1/2t: 492.4 msec PA V2 max: 83.6 cm/sec TR max chris: 231.0 cm/sec TR max P.3 mmHg Interpretation Summary Left ventricular systolic function is normal. The estimated ejection fraction is 65 %. Anterior leaflet diffuse mitral valve thickening. Mild focal mitral valve calcification of the anterior leaflet. Trivial mitral valve insufficiency. Trivial tricuspid valve insufficiency. Mild diffuse aortic valve calcification. Mild (1+) aortic valve insufficiency. Right ventricular systolic pressure estimated to be 24 mmHg. No evidence for diastolic dysfunction. Ordering Physician: Orlando Silva Referring Physician: GATO SUBRAMANIAN Performed By: Diane Maurice RDCS
--- NOTE | 2018-10-05 12:21 | PCM.PN.HOSP ---
Patient Problems: Active and Suspected Problems Acute hyperglycemia (Acute) Abnormal finding on urinalysis (Acute) CVA (cerebral vascular accident) (Acute) Subjective: He says she checks her blood sugar regularly at in the 120 range. Patient presented in the 500 range. Previous blood sugars have been extremely high as well. Patient states that she has been compliant with her medications. I discussed with the patient that that she would be going home today though given her previously high hemoglobin A1c is in her previous episodes of uncontrolled diabetes including this time around is concerned that something was not adding up if she is actually taking her insulin and her blood sugars in the 120s. So I did tell the patient that she was can be going home today. Later, the stroke team was called. Patient's daughter had arrived and called the stroke team for difficulty speaking and some left-sided weakness. Vitals/I&O's: Vital Signs Temp Pulse Resp BP Pulse Ox 36.6 C 81 20 H 108/54 L 97 10/05/18 11:21 10/05/18 11:21 10/05/18 11:21 10/05/18 11:21 10/05/18 11:21 Oxygen Delivery Method Room Air Weight: 67.6 kg Body Mass Index (BMI) 26.4 Finger Stick Blood Glucose 190 Intake and Output for Last 24 Hours 10/03/18 10/04/18 10/05/18 23:59 23:59 23:59 Intake Total 120 / 120 Balance 120 / 120 General: Alert, No apparent distress, Well developed, Well nourished HEENT: Atraumatic, PERRLA, EOMI, Normocephalic Oral: Moist Mucosa, No Gingival or Mucosal Lesions/ Ulcerations Neck: No Nodes, Thyroid Normal Size and Texture Lungs: Clear to auscultation, Normal air movement, No rhonchi, No wheeze Cardiovascular: Regular rate, Regular Rhythm, Normal S1, Normal S2 Abdomen: Bowel Sounds Present, Soft, Non Tender, Non-Distended, No Hepato-splenomegaly Extremities: No edema, No Calf Tenderness Skin: No rashes, No breakdown Musculoskeletal: No Tenderness to Palpation of Joints or Extremities, No Muscle Wasting Neurological: Cranial nerves II-XII grossly intact, Deep Tendon Reflexes 2+/4 and Symmetrical, Slurred Speech, - - Light left-sided weakness Psych/Mental Status: Appropriate, Anxious Laboratory Results 10/04/18 17:49: POC Glucose 500 H* 10/04/18 18:55: WBC 8.5, RBC 4.31, Hgb 13.4, Hct 38.3, MCV 88.9, MCH 31.1, MCHC 35.0, RDW 12.1, RDW Differential 38.9, Plt Count 221, MPV 11.0, Immature Gran % (Auto) 0.400, Neut % (Auto) 56.7, Lymph % (Auto) 33.7, [place] % (Auto) 6.4, Eos % (Auto) 2.6, Baso % (Auto) 0.2, Absolute Neuts (auto) 4.8, Absolute Lymphs (auto) 2.86, Total Counted Not Reportable 10/04/18 18:55: Sodium 131 L, Potassium 3.9, Chloride 98, Carbon Dioxide 23.0, Anion Gap 10, BUN 15, Creatinine 1.18 H, Estim Creat Clear Calc 39.32, Est GFR (MDRD) Af Amer 59 L, Est GFR (MDRD) Non-Af 49 L, BUN/Creatinine Ratio 12.7, Glucose 519 H*, Calcium 8.6, Phosphorus 3.4, Magnesium 1.9, Troponin I < 0.015 10/04/18 18:55: Acetone Level NEGATIVE 10/04/18 19:05: Urine Color Yellow, Urine Clarity Sl Cldy, Urine pH 6.0, Ur Specific [place] 1.010, Urine Protein Negative, Urine Glucose (UA) 1000 H, Urine Ketones Negative, Urine Occult Blood Negative, Urine Nitrite Negative, Urine Bilirubin Negative, Urine Urobilinogen Normal, Ur Leukocyte Esterase 100 H, Urine RBC 0 SEEN, Urine WBC 10-25 SEEN, Ur Squamous Epith Cells 0-5 SEEN, Urine Bacteria 0 SEEN, Urine Mucus 0 SEEN 10/04/18 19:41: Specimen Type [place], Sample Site OTHER, VBG pH 7.42, VBG pO2 51 H, VBG O2 Sat (Calc) 87 H, VBG O2 Content 23, VBG Base Excess -2 L, POC Mix VBG pCO2 Pt Tmp 34.6 L, O2 Delivery Device Room Air, Blood Gas Notified Whom ED , Blood Gas Notified Time 1950 10/04/18 21:07: Sodium 134 L, Potassium 4.3, Chloride 101, Carbon Dioxide 23.0, Anion Gap 10, BUN 14, Creatinine 0.96, Estim Creat Clear Calc 48.33, Est GFR (MDRD) Af Amer 75, Est GFR (MDRD) Non-Af 62, BUN/Creatinine Ratio 14.5, Glucose 520 H*, Calcium 7.9 L 10/04/18 22:57: POC Glucose > 500 H* 10/05/18 00:52: POC Glucose 103 10/05/18 03:06: POC Glucose 160 H 10/05/18 05:40: WBC 7.7, RBC 3.63 L, Hgb 11.5 L, Hct 32.7 L, MCV 90.1, MCH 31.7, MCHC 35.2, RDW 11.9, RDW Differential 37.1, Plt Count 228, MPV 11.1, Immature Gran % (Auto) 0.400, Neut % (Auto) 38.2 L, Lymph % (Auto) 50.2 H, Evans % (Auto) 7.4, Eos % (Auto) 3.5, Baso % (Auto) 0.3, Absolute Neuts (auto) 2.9, Absolute Lymphs (auto) 3.86, Total Counted Not Reportable 10/05/18 05:40: Sodium 142, Potassium 3.8, Chloride 108 H, Carbon Dioxide 26.0, Anion Gap 8, BUN 14, Creatinine 0.83, Estim Creat Clear Calc 55.90, Est GFR (MDRD) Af Amer 89, Est GFR (MDRD) Non-Af 73, BUN/Creatinine Ratio 16.9, Glucose 174 H, Calcium 8.3 L 10/05/18 06:43: POC Glucose 185 H 10/05/18 11:10: POC Glucose 190 H 10/05/18 12:05: [place] Pending Clinical Impression(s) from Imaging Studies Chest X-Ray 10/04/18 18:50 IMPRESSION: No acute pulmonary pathology of the chest. Electronically Signed: Prakash Alaniz DO at 19:22 EST Tel [phone], Service support , Brain CT 10/05/18 11:12 IMPRESSION: Normal unenhanced CT scan of the brain. N.B. : The above information has been verbally conveyed by Izaiah Maza MD to Dr. Loya;[phone], on 10/05/2018 11:45:54 (ET). Electronically Signed: Izaiah Maza MD at 11:40 EST , Service support , Current Medications Acetaminophen (Tylenol) 650 mg PO Q6H PRN PRN PRN Reason: Mild Pain (scale 0-3)/T>100.7 [facility] Admin: 10/05/18 08:31 Dose: 81 mg Atorvastatin Calcium (Lipitor) 20 mg PO QHS [facility] Bisacodyl (Dulcolax) 5 mg PO DAILY PRN PRN PRN Reason: Constipation Clopidogrel Bisulfate (Plavix) 75 mg PO DAILY [facility] Last Admin: 10/05/18 08:30 Dose: 75 mg Cyclobenzaprine HCl (Flexeril) 10 mg PO TID PRN PRN PRN Reason: MUSCLE SPASM Dextrose (D50w Syringe) 0 gm IV X1 PRN; Protocol PRN Reason: Hypoglycemia Enoxaparin Sodium (Lovenox) 40 mg SC DAILY@1000 [facility] Last Admin: 10/05/18 08:27 Dose: 40 mg Furosemide (Lasix) 40 mg PO DAILY [facility] Last Admin: 10/05/18 08:31 Dose: 40 mg Glimepiride (Amaryl) [facility] Last Admin: 10/05/18 08:31 Dose: 4 mg Glucagon () 1 mg IM .X1 PRN PRN Reason: Hypoglycemia Insulin Glargine (Lantus (Bkc)) 23 units SC BREAKFAST [facility] Last Admin: 10/05/18 08:32 Dose: 23 u Insulin Glargine (Lantus (Bkc)) 26 units SC QHS [facility] Last Admin: 10/05/18 02:02 Dose: 26 unit Lisinopril (Zestril) 5 mg PO DAILY [facility] Last Admin: 10/05/18 08:30 Dose: 5 mg [place] Carbonate ([place] Carbonate) 300 mg PO BID [facility] Last Admin: 10/05/18 08:30 Dose: 300 mg Magnesium Hydroxide (Milk Of Magnesia) 30 ml PO DAILY PRN PRN Reason: Constipation Metformin [facility]) [facility] Last Admin: 10/05/18 08:31 Dose: 1,000 mg Metoprolol Tartrate (Lopressor (Beta Ban)) 25 mg PO BID [facility] Last Admin: 10/05/18 08:30 Dose: 25 mg Pantoprazole Sodium (Protonix) 40 mg PO DAILY [facility] Last Admin: 10/05/18 08:32 Dose: 40 mg Quetiapine Fumarate (Seroquel) 100 mg PO QHS [facility] Last Admin: 10/05/18 02:01 Dose: 100 mg Risperidone (Risperdal) 4 mg PO QHS [facility] Last Admin: 10/05/18 02:01 Dose: 4 mg Medical Necessity - Tobacco Use Smoking Status: Former smoker Assessment/Plan All Active Problems Acute hyperglycemia (Acute) Abnormal finding on urinalysis (Acute) CVA (cerebral vascular accident) (Acute) VTE (venous thromboembolism) (Resolved) 1. Suspected acute stroke CAT scan was negative Patient will undergo the remainder of her stroke workup Discussed with Dr. Silva, of neurology, who stated that patient's weakness was distractible. So there is some element of concern of some fictitious or even conversion disorder. These elements are no signs of exclusion. Will have MRI of the brain, MRA of the head and neck. 2D echocardiogram as well as physical occupational and speech therapy. Patient already on aspirin and atorvastatin. 2. Hyperglycemia Much improved If patient states claims or true that her blood sugars are in the 120s I do not find a reason why her blood sugar should be so high with that. Therefore concerned that either she may have missed medications or she is just not being truthful. 3. DVT prophylaxis with Lovenox Code Visit Inpatient E&M: 46027 [facility] L3
--- NOTE | 2018-10-05 12:25 | PN_ITS ---
Patient Problems: Active and Suspected Problems Acute hyperglycemia (Acute) Abnormal finding on urinalysis (Acute) CVA (cerebral vascular accident) (Acute) Subjective: He says she checks her blood sugar regularly at in the 120 range. Patient presented in the 500 range. Previous blood sugars have been extremely high as well. Patient states that she has been compliant with her medications. I discussed with the patient that that she would be going home today though given her previously high hemoglobin A1c is in her previous episodes of uncontrolled diabetes including this time around is concerned that something was not adding up if she is actually taking her insulin and her blood sugars in the 120s. So I did tell the patient that she was can be going home today. Later, the stroke team was called. Patient's daughter had arrived and called the stroke team for difficulty speaking and some left-sided weakness. Vitals/I&O's: Vital Signs Temp Pulse Resp BP Pulse Ox 36.6 C 81 20 H 108/54 L 97 10/05/18 11:21 10/05/18 11:21 10/05/18 11:21 10/05/18 11:21 10/05/18 11:21 Oxygen Delivery Method Room Air Weight: 67.6 kg Body Mass Index (BMI) 26.4 Finger Stick Blood Glucose 190 Intake and Output for Last 24 Hours 10/03/18 10/04/18 10/05/18 23:59 23:59 23:59 Intake Total 120 / 120 Balance 120 / 120 General: Alert, No apparent distress, Well developed, Well nourished HEENT: Atraumatic, PERRLA, EOMI, Normocephalic Oral: Moist Mucosa, No Gingival or Mucosal Lesions/ Ulcerations Neck: No Nodes, Thyroid Normal Size and Texture Lungs: Clear to auscultation, Normal air movement, No rhonchi, No wheeze Cardiovascular: Regular rate, Regular Rhythm, Normal S1, Normal S2 Abdomen: Bowel Sounds Present, Soft, Non Tender, Non-Distended, No Hepato- splenomegaly Extremities: No edema, No Calf Tenderness Skin: No rashes, No breakdown Musculoskeletal: No Tenderness to Palpation of Joints or Extremities, No Muscle Wasting Neurological: Cranial nerves II-XII grossly intact, Deep Tendon Reflexes 2+/4 and Symmetrical, Slurred Speech, - - Light left-sided weakness Psych/Mental Status: Appropriate, Anxious Laboratory Results 10/04/18 17:49: POC Glucose 500 H* 10/04/18 18:55: WBC 8.5, RBC 4.31, Hgb 13.4, Hct 38.3, MCV 88.9, MCH 31.1, MCHC 35.0, RDW 12.1, RDW Differential 38.9, Plt Count 221, MPV 11.0, Immature Gran % (Auto) 0.400, Neut % (Auto) 56.7, Lymph % (Auto) 33.7, [place] % (Auto) 6.4, Eos % (Auto) 2.6, Baso % (Auto) 0.2, Absolute Neuts (auto) 4.8, Absolute Lymphs (auto) 2.86, Total Counted Not Reportable 10/04/18 18:55: Sodium 131 L, Potassium 3.9, Chloride 98, Carbon Dioxide 23.0, Anion Gap 10, BUN 15, Creatinine 1.18 H, Estim Creat Clear Calc 39.32, Est GFR (MDRD) Af Amer 59 L, Est GFR (MDRD) Non-Af 49 L, BUN/Creatinine Ratio 12.7, Glucose 519 H*, Calcium 8.6, Phosphorus 3.4, Magnesium 1.9, Troponin I < 0.015 10/04/18 18:55: Acetone Level NEGATIVE 10/04/18 19:05: Urine Color Yellow, Urine Clarity Sl Cldy, Urine pH 6.0, Ur Sp ecific [place] 1.010, Urine Protein Negative, Urine Glucose (UA) 1000 H, Urine Ketones Negative, Urine Occult Blood Negative, Urine Nitrite Negative, Urine Bilirubin Negative, Urine Urobilinogen Normal, Ur Leukocyte Esterase 100 H, Urine RBC 0 SEEN, Urine WBC 10-25 SEEN, Ur Squamous Epith Cells 0-5 SEEN, Urine Bacteria 0 SEEN, Urine Mucus 0 SEEN 10/04/18 19:41: Specimen Type [place], Sample Site OTHER, VBG pH 7.42, VBG pO2 51 H, VBG O2 Sat (Calc) 87 H, VBG O2 Content 23, VBG Base Excess -2 L, POC Mix VBG pCO2 Pt Tmp 34.6 L, O2 Delivery Device Room Air, Blood Gas Notified Whom ED , Blood Gas Notified Time 1950 10/04/18 21:07: Sodium 134 L, Potassium 4.3, Chloride 101, Carbon Dioxide 23.0, Anion Gap 10, BUN 14, Creatinine 0.96, Estim Creat Clear Calc 48.33, Est GFR (MDRD) Af Amer 75, Est GFR (MDRD) Non-Af 62, BUN/Creatinine Ratio 14.5, Glucose 520 H*, Calcium 7.9 L 10/04/18 22:57: POC Glucose > 500 H* 10/05/18 00:52: POC Glucose 103 10/05/18 03:06: POC Glucose 160 H 10/05/18 05:40: WBC 7.7, RBC 3.63 L, Hgb 11.5 L, Hct 32.7 L, MCV 90.1, MCH 31.7, MCHC 35.2, RDW 11.9, RDW Differential 37.1, Plt Count 228, MPV 11.1, Immature Gran % (Auto) 0.400, Neut % (Auto) 38.2 L, Lymph % (Auto) 50.2 H, [place] % (Auto) 7.4, Eos % (Auto) 3.5, Baso % (Auto) 0.3, Absolute Neuts (auto) 2.9, Absolute Lymphs (auto) 3.86, Total Counted Not Reportable 10/05/18 05:40: Sodium 142, Potassium 3.8, Chloride 108 H, Carbon Dioxide 26.0, Anion Gap 8, BUN 14, Creatinine 0.83, Estim Creat Clear Calc 55.90, Est GFR (MDRD) Af Amer 89, Est GFR (MDRD) Non-Af 73, BUN/Creatinine Ratio 16.9, Glucose 174 H, Calcium 8.3 L 10/05/18 06:43: POC Glucose 185 H 10/05/18 11:10: POC Glucose 190 H 10/05/18 12:05: [place] Pending Clinical Impression(s) from Imaging Studies Chest X-Ray 10/04/18 18:50 IMPRESSION: No acute pulmonary pathology of the chest. Electronically Signed: Prakash Alaniz DO at 19:22 EST Tel [phone], Service support , Brain CT 10/05/18 11:12 IMPRESSION: Normal unenhanced CT scan of the brain. N.B. : The above information has been verbally conveyed by Izaiah Maza MD to Dr. Loya;[phone], on 10/05/2018 11:45:54 (ET). Electronically Signed: Izaiah Maza MD at 11:40 EST , Service support , Current Medications Acetaminophen (Tylenol) 650 mg PO Q6H PRN PRN PRN Reason: Mild Pain (scale 0-3)/T>100.7 [facility] Admin: 10/05/18 08:31 Dose: 81 mg Atorvastatin Calcium (Lipitor) 20 mg PO QHS [facility] Bisacodyl (Dulcolax) 5 mg PO DAILY PRN PRN PRN Reason: Constipation Clopidogrel Bisulfate (Plavix) 75 mg PO DAILY [facility] Last Admin: 10/05/18 08:30 Dose: 75 mg Cyclobenzaprine HCl (Flexeril) 10 mg PO TID PRN PRN PRN Reason: MUSCLE SPASM Dextrose (D50w Syringe) 0 gm IV X1 PRN; Protocol PRN Reason: Hypoglycemia Enoxaparin Sodium (Lovenox) 40 mg SC DAILY@1000 [facility] Last Admin: 10/05/18 08:27 Dose: 40 mg Furosemide (Lasix) 40 mg PO DAILY [facility] Last Admin: 10/05/18 08:31 Dose: 40 mg Gl[facility]piride (Amaryl) [facility] Last Admin: 10/05/18 08:31 Dose: 4 mg Glucagon () 1 mg IM .X1 PRN PRN Reason: Hypoglycemia Insulin Glargine (Lantus (Bkc)) 23 units SC BREAKFAST [facility] Last Admin: 10/05/18 08:32 Dose: 23 u Insulin Glargine (Lantus (Bkc)) 26 units SC QHS [facility] Last Admin: 10/05/18 02:02 Dose: 26 unit Lisinopril (Zestril) 5 mg PO DAILY [facility] Last Admin: 10/05/18 08:30 Dose: 5 mg [place] Carbonate ([place] Carbonate) 300 mg PO BID [facility] Last Admin: 10/05/18 08:30 Dose: 300 mg Magnesium Hydroxide (Milk Of Magnesia) 30 ml PO DAILY PRN PRN Reason: Constipation Metformin [facility] (Glucophage) [facility] Last Admin: 10/05/18 08:31 Dose: 1,000 mg Metoprolol Tartrate (Lopressor (Beta Ban)) 25 mg PO BID [facility] Last Admin: 10/05/18 08:30 Dose: 25 mg Pantoprazole Sodium (Protonix) 40 mg PO DAILY [facility] Last Admin: 10/05/18 08:32 Dose: 40 mg Quetiapine Fumarate (Seroquel) 100 mg PO QHS [facility] Last Admin: 10/05/18 02:01 Dose: 100 mg Risperidone (Risperdal) 4 mg PO QHS [facility] Last Admin: 10/05/18 02:01 Dose: 4 mg Medical Necessity - Tobacco Use Smoking Status: Former smoker Assessment/Plan All Active Problems Acute hyperglycemia (Acute) Abnormal finding on urinalysis (Acute) CVA (cerebral vascular accident) (Acute) VTE (venous thromboembolism) (Resolved) 1. Suspected acute stroke * CAT scan was negative * Patient will undergo the remainder of her stroke workup * Discussed with Dr. Silva, of neurology, who stated that patient's weakness was distractible. So there is some element of concern of some fictitious or even conversion disorder. These elements are no signs of exclusion. * Will have MRI of the brain, MRA of the head and neck. 2D echocardiogram as well as physical occupational and speech therapy. * Patient already on aspirin and atorvastatin. 2. Hyperglycemia * Much improved * If patient states claims or true that her blood sugars are in the 120s I do not find a reason why her blood sugar should be so high with that. Therefore concerned that either she may have missed medications or she is just not being truthful. 3. DVT prophylaxis with Lovenox Code Visit Inpatient E&M: 03933 Subs Hosp L3
--- NOTE | 2018-10-05 13:00 | CASEMGMT ---
RN GIANCARLO NOTE: [facility] Referral made for diabetic teaching. Call placed to April @ [facility]. April states pt used to be part of their program but they had to discharge her d/t had a psych hospitalization. They are unable to accept her back into the program. [facility] referral cancelled. Jamil ADRIANN RN CM
[2018-10-05] MEDS: Acetaminophen 325 MG Tablet 650 MG PO (14:42)
[2018-10-05] MEDS: LORazepam 1 MG Tablet PO (14:43)
[2018-10-05 16:55] LABS: Bedside Glucose 201 mg/dL (70-110)
--- NOTE | 2018-10-05 18:15 | NURSING ---
Patient, per policy, made NPO after she began coughing on custard and felt it was stuck in her throat. Speech therapy had previously seen her and had put her on pureed, thin liquids. Speech therapy will assess again tomorrow.
[2018-10-05 22:11] LABS: Bedside Glucose 199 mg/dL (70-110)
[2018-10-06] VITALS (7 sets, daily range): BP systolic 100–132; BP diastolic 52–72; PULSE 62–77; RESP 14–15; TEMP 36.6–37.1; O2SAT 97–99
[2018-10-06 03:10] LABS: Bedside Glucose 107 mg/dL (70-110)
[2018-10-06 06:51] LABS: Bedside Glucose 86 mg/dL (70-110)
[2018-10-06] MEDS: Glimepiride 4 MG Tablet PO (10:59)
[2018-10-06] MEDS: Clopidogrel Bisulfate 75 MG Tablet PO (10:59)
[2018-10-06] MEDS: Pantoprazole Sodium 40 MG Tablet PO (10:59)
[2018-10-06] MEDS: Aspirin E.C. 81 MG Tablet PO (10:59)
[2018-10-06] MEDS: metFORMIN HCl 1,000 MG Tablet 1000 MG PO (10:59)
[2018-10-06] MEDS: Furosemide 40 MG Tablet PO (11:00)
[2018-10-06] MEDS: Lithium Carbonate 300mg Capsule 300 MG PO (11:00)
[2018-10-06] MEDS: Lisinopril 5 MG Tablet PO (11:00)
[2018-10-06] MEDS: Metoprolol Tartrate 25 MG Tablet PO (11:00)
[2018-10-06 11:01] LABS: Bedside Glucose 119 mg/dL (70-110)
--- NOTE | 2018-10-06 11:38 | DCINST_ITS ---
- Discharge Diagnoses Current Active Problems: Current Active and Chronic Problems CVA (cerebral vascular accident) (Acute) Acute hyperglycemia (Acute) Abnormal finding on urinalysis (Acute) You will use the following diet at home:: Calorie/Carbohydrate Controlled (specify 1200, 1400, etc) - 1800 mounika / day, Cardiac Your food should be the consistency of: Regular Your liquids should be the consistency of: Regular/Thin Discharge Activity: Return to Normal Activity Allergies/Adverse Reactions: Allergies Penicillins Allergy (Verified 10/04/18 17:22) Hives morphine Adverse Reaction (Mild, Verified 10/04/18 17:22) Itching hydrocodone bitartrate [From Vicodin] Adverse Reaction (Verified 10/04/18 17:22) Vomiting ibuprofen Adverse Reaction (Verified 10/04/18 17:22) Vomiting Medications to take at Discharge Lisinopril [Zestril] 5 mg PO DAILY 08/17/15 Aspirin [Adult Low Dose Aspirin EC] 81 mg PO DAILY 02/04/16 Furosemide [Lasix] 40 mg PO DAILY 02/04/16 Simvastatin [Zocor] 40 mg PO QHS 01/24/17 Clopidogrel Bisulfate [Plavix] 75 mg PO DAILY 06/23/17 Metoprolol Tartrate [Lopressor (beta elder)] 25 mg PO BID 06/23/17 Nitroglycerin [Nitrostat] 0.4 mg SUBLINGUAL Q5M PRN 09/28/17 Insulin Detemir [Levemir FlexPen] 23 units SC BREAKFAST 02/18/18 Glimepiride [Amaryl] 4 mg PO DAILY #30 tab 05/31/18 Insulin Detemir [Levemir Flextouch] 26 unit SC QHS #1 insuln.pen 05/31/18 Metformin HCl 1,000 mg PO BID #60 tab 05/31/18 Cyclobenzaprine [Flexeril] 10 mg PO TID PRN #20 tablet 07/02/18 [place] Carbonate 300 mg PO BID 09/14/18 Quetiapine Fumarate [Seroquel] 100 mg PO QHS 09/14/18 Risperidone [Risperdal] 4 mg PO QHS 09/14/18 Pantoprazole Sodium [Protonix] 40 mg PO DAILY 10/05/18 Primary Care Physician: Monster Salcedo MD [Primary Care Provider] - Please follow up with your Primary Care Physician in: 1 week Test Results: Test results from this visit will be discussed in further detail at your follow- up appointment, if applicable. Please Follow Up With: Siena Hughes NP-C When: 1-2 weeks Proposed Discharge Date: 10/06/18
--- NOTE | 2018-10-06 11:55 | CASEMGMT ---
This RN CM to room to speak with pt regarding discharge planning. Therapy is recommending WW for pt and pt is aware but states that they have a WW and rollator at home. Therapy recommended home and pt states no need for therapy at this time. Pt states no concerns with getting DM supplies and meds at this time. Pt/family voices no further discharge planning/needs or questions/concerns at this time. SStaten LIZBET MONDRAGON
--- NOTE | 2018-10-06 13:37 | EEG ---
- Electroencephalogram Date of study 10/06/18 This is an 18 channel electroencephalogram performed utilizing the International 10-20 electrode placement protocol as well as photic stimulation, hyperventilation and EKG reference leads on this 63-year-old female. Background activity is 10 Hz symmetrically in the posterior leads which attenuates with eye-opening. Hyperventilation is performed for 2 minutes with good effort with no lateralizing or epileptiform changes and the post hyperventilatory phase was unremarkable. Patient remained awake throughout the recording. EKG reference leads are normal sinus rhythm throughout the recording. Stimulation generates a normal symmetric driving response in the posterior leads. Impression: Normal electroencephalogram
--- NOTE | 2018-10-06 15:44 | PCM.DC.SUM ---
<Taran Lujan - Last Filed: 10/06/18 15:44> Discharge Date and Diagnosis - Problem List Patient Problems: Active and Suspected Problems Acute hyperglycemia (Acute) Date of Admission: 10/04/18 Date of Discharge: 10/06/18 - Primary Discharge Diagnosis Active and Suspected Problems DMt2 with hyperglycemia, nonketotic. CVA (cerebral vascular accident) (Acute) - ruled out Hx tobacco abuse, depression, HF, GERD, CAD, COPD - Secondary Discharge Diagnosis Chronic Problems GERD (gastroesophageal reflux disease) (Chronic) Uncontrolled type 2 diabetes mellitus (Chronic) Benign essential hypertension (Chronic) Type 2 diabetes mellitus (Chronic) Hyperlipidemia (Chronic) Coronary artery disease (Chronic) ROMEL LAD 01/21 COPD (chronic obstructive pulmonary disease) (Chronic) cont smoking Tobacco abuse (Chronic) NSTEMI (non-ST elevated myocardial infarction) (Chronic) Hospital Course and Treatment Imaging Results: RAD/Chest 1 View (Portable) IMPRESSION: No acute pulmonary pathology of the chest. CT/Brain/Head without Contrast IMPRESSION: Normal unenhanced CT scan of the brain. MRI/Brain W/WO Contrast IMPRESSION: Normal unenhanced and enhanced MRI of the brain. Echo: Interpretation Summary Left ventricular systolic function is normal. The estimated ejection fraction is 65 %. Anterior leaflet diffuse mitral valve thickening. Mild focal mitral valve calcification of the anterior leaflet. Trivial mitral valve insufficiency. Trivial tricuspid valve insufficiency. Mild diffuse aortic valve calcification. Mild (1+) aortic valve insufficiency. Right ventricular systolic pressure estimated to be 24 mmHg. No evidence for diastolic dysfunction. EEG: Impression: Normal electroencephalogram Consults: Neuro - Silva Operations: None Procedures: Electroencephalogram Summary of Care Provided: Hospital course: The patient is a 63 year old F with past medical history as above who presented to the emergency room after feeling lightheaded and with a blood sugar reading of high. She came to the emergency room and her blood sugar was in the 500s however she had a negative ketone level, hyponatremia. She was admitted for nonketotic hyperglycemia given extra short acting insulin. She was then resumed on her home oral anti-glycemic's and insulin which provided adequate control of her blood sugar, providing spell suspicious that she was not using her medications as prescribed at home. Her blood sugars had improved significantly by the following day and she was planned to be discharged, however after being told that she could go home, she developed acute onset of left-sided weakness and difficulty speaking. Stroke alert was called. CT of the brain was negative. Neurology was consulted, per neuro her symptoms were distractible on exam. An MRI was obtained which did not show a stroke. Telemetry was negative. By the following morning her symptoms had completely resolved. An EEG was obtained per neurology which was negative. She planned to follow-up with the endocrinology nurse practitioner in 1-2 weeks and with her PCP in 1-2 weeks. She was discharged home in stable condition. This patient was seen by Taran Lujan PA-C under the supervision of Doctor Shalini. [] Patient Problems: Active and Suspected Problems Acute hyperglycemia (Acute) - Physical Exam General: Alert, Oriented x3, Cooperative HEENT: Atraumatic, PERRLA, EOMI, Normocephalic Neck: Supple, No JVD, Negative Carotid Bruits Lungs: Clear to auscultation, Normal air movement Cardiovascular: Regular rate, No murmurs Abdomen: Bowel Sounds Present, Soft, Non Tender Extremities: No edema, Capillary Refill Less than 3 Seconds Skin: No rashes, No breakdown Musculoskeletal: No Tenderness to Palpation of Joints or Extremities Neurological: Cranial nerves II-XII grossly intact Psych/Mental Status: Normal Affect, Appropriate Vital Signs Temp Pulse Resp BP Pulse Ox 98 F 62 15 128/72 H 98 10/06/18 13:10 10/06/18 13:10 10/06/18 13:10 10/06/18 13:10 10/06/18 13:10 Oxygen Delivery Method Room Air Weight: 149 lb 0.52 oz Body Mass Index (BMI) 26.4 Finger Stick Blood Glucose 190 Intake and Output for Last 24 Hours 10/04/18 10/05/18 10/06/18 23:59 23:59 23:59 Intake Total 440 / 440 Balance 440 / 440 Microbiology Past 72 Hours 10/05/18 Unknown Urine Culture - Preliminary Urine, Clean Catch Mixed Gram Positive Organisms POC Glucose 10/06/18 10/06/18 10/06/18 10:55 06:42 03:03 POC Glucose 119 H 86 107 10/05/18 10/05/18 21:05 16:49 POC Glucose 199 H 201 H Discharge Diet: Low fat/ Low Cholesterol, 1800 Calorie Control Diet, 2000 mg Sodium Diet Discharge Activity: Return to Normal Activity Home Medications: Medications to take at Discharge Lisinopril [Zestril] 5 mg PO DAILY 08/17/15 Aspirin [Adult Low Dose Aspirin EC] 81 mg PO DAILY 02/04/16 Furosemide [Lasix] 40 mg PO DAILY 02/04/16 Simvastatin [Zocor] 40 mg PO QHS 01/24/17 Clopidogrel Bisulfate [Plavix] 75 mg PO DAILY 06/23/17 Metoprolol Tartrate [Lopressor (beta elder)] 25 mg PO BID 06/23/17 Nitroglycerin [Nitrostat] 0.4 mg SUBLINGUAL Q5M PRN 09/28/17 Insulin Detemir [Levemir FlexPen] 23 units SC BREAKFAST 02/18/18 Glimepiride [Amaryl] 4 mg PO DAILY #30 tab 05/31/18 Insulin Detemir [Levemir Flextouch] 26 unit SC QHS #1 insuln.pen 05/31/18 Metformin HCl 1,000 mg PO BID #60 tab 05/31/18 Cyclobenzaprine [Flexeril] 10 mg PO TID PRN #20 tablet 07/02/18 [place] Carbonate 300 mg PO BID 09/14/18 Quetiapine Fumarate [Seroquel] 100 mg PO QHS 09/14/18 Risperidone [Risperdal] 4 mg PO QHS 09/14/18 Pantoprazole Sodium [Protonix] 40 mg PO DAILY 10/05/18 Primary Care Physician: Monster Salcedo MD [Primary Care Provider] - Please follow up with your Primary Care Physician in: 1 week Please Follow Up With: Siena Hughes NP-C When: 1-2 weeks Disposition: Home Minutes spent on discharge:: 35 Patient Condition:: Stable Medical Necessity - Tobacco Use Smoking Status: Former smoker Meaningful Use Info Meaningful Use Diagnoses (Choose all that apply): None applicable <Parker Loya - Last Filed: 10/06/18 16:23> Discharge Date and Diagnosis - Primary Discharge Diagnosis Active and Suspected Problems CVA (cerebral vascular accident) (Acute) - Secondary Discharge Diagnosis Chronic Problems GERD (gastroesophageal reflux disease) (Chronic) Uncontrolled type 2 diabetes mellitus (Chronic) Benign essential hypertension (Chronic) Type 2 diabetes mellitus (Chronic) Hyperlipidemia (Chronic) Coronary artery disease (Chronic) ROMEL LAD 01/21 COPD (chronic obstructive pulmonary disease) (Chronic) cont smoking Tobacco abuse (Chronic) NSTEMI (non-ST elevated myocardial infarction) (Chronic) Hospital Course and Treatment Operations: None Procedures: Electroencephalogram Summary of Care Provided: Patient seen and examined independently. Data reviewed. I agree with the above note by the physician investment sales assistant. The patient is a 63 year old F presents with hyperglycemia. BGTs were 500. Resumed on her regular insulin from home. BGTs were controlled here. Patient was going to be discharged on 10/05, however, she had dysarthria and left-sided weakness. She was evaluated by neurology, who found so inconsistencies in exam. MRI was negative. Therefore, CVA was ruled out. Unclear, if clear neurologic event or psychosomatic.[] - Physical Exam General: Alert, Cooperative, No apparent distress HEENT: Atraumatic, Normocephalic Oral: Moist Mucosa, No Gingival or Mucosal Lesions/ Ulcerations Psych/Mental Status: Normal Affect, Appropriate Vital Signs Temp Pulse Resp BP Pulse Ox 36.6 C 62 15 128/72 H 98 10/06/18 13:10 10/06/18 13:10 10/06/18 13:10 10/06/18 13:10 10/06/18 13:10 Oxygen Delivery Method Room Air Weight: 67.6 kg Body Mass Index (BMI) 26.4 Finger Stick Blood Glucose 190 Intake and Output for Last 24 Hours 10/04/18 10/05/18 10/06/18 23:59 23:59 23:59 Intake Total 440 / 440 Balance 440 / 440 Microbiology Past 72 Hours 10/05/18 Unknown Urine Culture - Preliminary Urine, Clean Catch Mixed Gram Positive Organisms POC Glucose 10/06/18 10/06/18 10/06/18 10:55 06:42 03:03 POC Glucose 119 H 86 107 10/05/18 10/05/18 21:05 16:49 POC Glucose 199 H 201 H Discharge Diet: Low fat/ Low Cholesterol, 1800 Calorie Control Diet, 2000 mg Sodium Diet Discharge Activity: Return to Normal Activity Disposition: Home Minutes spent on discharge:: 35 Patient Condition:: Stable Medical Necessity - Tobacco Use Smoking Status: Former smoker Meaningful Use Info Meaningful Use Diagnoses (Choose all that apply): None applicable Code Visit Inpatient E&M: 01592 Disch Hosp
--- NOTE | 2018-10-06 15:52 | DS.PCM_ITS ---
<Taran Lujan - Last Filed: 10/06/18 15:44> Discharge Date and Diagnosis - Problem List Patient Problems: Active and Suspected Problems Acute hyperglycemia (Acute) Date of Admission: 10/04/18 Date of Discharge: 10/06/18 - Primary Discharge Diagnosis Active and Suspected Problems DMt2 with hyperglycemia, nonketotic. CVA (cerebral vascular accident) (Acute) - ruled out Hx tobacco abuse, depression, HF, GERD, CAD, COPD - Secondary Discharge Diagnosis Chronic Problems GERD (gastroesophageal reflux disease) (Chronic) Uncontrolled type 2 diabetes mellitus (Chronic) Benign essential hypertension (Chronic) Type 2 diabetes mellitus (Chronic) Hyperlipidemia (Chronic) Coronary artery disease (Chronic) ROMEL LAD 01/21 COPD (chronic obstructive pulmonary disease) (Chronic) cont smoking Tobacco abuse (Chronic) NSTEMI (non-ST elevated myocardial infarction) (Chronic) Hospital Course and Treatment Imaging Results: RAD/Chest 1 View (Portable) IMPRESSION: No acute pulmonary pathology of the chest. CT/Brain/Head without Contrast IMPRESSION: Normal unenhanced CT scan of the brain. MRI/Brain W/WO Contrast IMPRESSION: Normal unenhanced and enhanced MRI of the brain. Echo: Interpretation Summary Left ventricular systolic function is normal. The estimated ejection fraction is 65 %. Anterior leaflet diffuse mitral valve thickening. Mild focal mitral valve calcification of the anterior leaflet. Trivial mitral valve insufficiency. Trivial tricuspid valve insufficiency. Mild diffuse aortic valve calcification. Mild (1+) aortic valve insufficiency. Right ventricular systolic pressure estimated to be 24 mmHg. No evidence for diastolic dysfunction. EEG: Impression: Normal electroencephalogram Consults: Neuro - Silva Operations: None Procedures: Electroencephalogram Summary of Care Provided: Hospital course: The patient is a 63 year old F with past medical history as above who presented to the emergency room after feeling lightheaded and with a blood sugar reading of high. She came to the emergency room and her blood sugar was in the 500s however she had a negative ketone level, hyponatremia. She was admitted for non ketotic hyperglycemia given extra short acting insulin. She was then resumed on her home oral anti-glycemic's and insulin which provided adequate control of her blood sugar, providing spell suspicious that she was not using her medications as prescribed at home. Her blood sugars had improved significantly by the following day and she was planned to be discharged, however after being told that she could go home, she developed acute onset of left-sided weakness and difficulty speaking. Stroke alert was called. CT of the brain was negative. Neurology was consulted, per neuro her symptoms were distractible on exam. An MRI was obtained which did not show a stroke. Telemetry was negative. By the following morning her symptoms had completely resolved. An EEG was obtained per neurology which was negative. She planned to follow-up with the endocrinology nurse practitioner in 1-2 weeks and with her PCP in 1-2 weeks. She was discharged home in stable condition. This patient was seen by Taran Lujan PA-C under the supervision of Doctor Shalini. [] Patient Problems: Active and Suspected Problems Acute hyperglycemia (Acute) - Physical Exam General: Alert, Oriented x3, Cooperative HEENT: Atraumatic, PERRLA, EOMI, Normocephalic Neck: Supple, No JVD, Negative Carotid Bruits Lungs: Clear to auscultation, Normal air movement Cardiovascular: Regular rate, No murmurs Abdomen: Bowel Sounds Present, Soft, Non Tender Extremities: No edema, Capillary Refill Less than 3 Seconds Skin: No rashes, No breakdown Musculoskeletal: No Tenderness to Palpation of Joints or Extremities Neurological: Cranial nerves II-XII grossly intact Psych/Mental Status: Normal Affect, Appropriate Vital Signs Temp Pulse Resp BP Pulse Ox 98 F 62 15 128/72 H 98 10/06/18 13:10 10/06/18 13:10 10/06/18 13:10 10/06/18 13:10 10/06/18 13:10 Oxygen Delivery Method Room Air Weight: 149 lb 0.52 oz Body Mass Index (BMI) 26.4 Finger Stick Blood Glucose 190 Intake and Output for Last 24 Hours 10/04/18 10/05/18 10/06/18 23:59 23:59 23:59 Intake Total 440 / 440 Balance 440 / 440 Microbiology Past 72 Hours 10/05/18 Unknown Urine Culture - Preliminary Urine, Clean Catch Mixed Gram Positive Organisms POC Glucose 10/06/18 10/06/18 10/06/18 10:55 06:42 03:03 POC Glucose 119 H 86 107 10/05/18 10/05/18 21:05 16:49 POC Glucose 199 H 201 H Discharge Diet: Low fat/ Low Cholesterol, 1800 Calorie Control Diet, 2000 mg Sodium Diet Discharge Activity: Return to Normal Activity Home Medications: Medications to take at Discharge Lisinopril [Zestril] 5 mg PO DAILY 08/17/15 Aspirin [Adult Low Dose Aspirin EC] 81 mg PO DAILY 02/04/16 Furosemide [Lasix] 40 mg PO DAILY 02/04/16 Simvastatin [Zocor] 40 mg PO QHS 01/24/17 Clopidogrel Bisulfate [Plavix] 75 mg PO DAILY 06/23/17 Metoprolol Tartrate [Lopressor (beta elder)] 25 mg PO BID 06/23/17 Nitroglycerin [Nitrostat] 0.4 mg SUBLINGUAL Q5M PRN 09/28/17 Insulin Detemir [Levemir FlexPen] 23 units SC BREAKFAST 02/18/18 Glimepiride [Amaryl] 4 mg PO DAILY #30 tab 05/31/18 Insulin Detemir [Levemir Flextouch] 26 unit SC QHS #1 insuln.pen 05/31/18 Metformin HCl 1,000 mg PO BID #60 tab 05/31/18 Cyclobenzaprine [Flexeril] 10 mg PO TID PRN #20 tablet 07/02/18 Grano Carbonate 300 mg PO BID 09/14/18 Quetiapine Fumarate [Seroquel] 100 mg PO QHS 09/14/18 Risperidone [Risperdal] 4 mg PO QHS 09/14/18 Pantoprazole Sodium [Protonix] 40 mg PO DAILY 10/05/18 Primary Care Physician: Monster Salcedo MD [Primary Care Provider] - Please follow up with your Primary Care Physician in: 1 week Please Follow Up With: Siena Hughes NP-C When: 1-2 weeks Disposition: Home Minutes spent on discharge:: 35 Patient Condition:: Stable Medical Necessity - Tobacco Use Smoking Status: Former smoker Meaningful Use Info Meaningful Use Diagnoses (Choose all that apply): None applicable <Parker Loya - Last Filed: 10/06/18 16:23> Discharge Date and Diagnosis - Primary Discharge Diagnosis Active and Suspected Problems CVA (cerebral vascular accident) (Acute) - Secondary Discharge Diagnosis Chronic Problems GERD (gastroesophageal reflux disease) (Chronic) Uncontrolled type 2 diabetes mellitus (Chronic) Benign essential hypertension (Chronic) Type 2 diabetes mellitus (Chronic) Hyperlipidemia (Chronic) Coronary artery disease (Chronic) ROMEL LAD 01/21 COPD (chronic obstructive pulmonary disease) (Chronic) cont smoking Tobacco abuse (Chronic) NSTEMI (non-ST elevated myocardial infarction) (Chronic) Hospital Course and Treatment Operations: None Procedures: Electroencephalogram Summary of Care Provided: Patient seen and examined independently. Data reviewed. I agree with the above note by the physician metallurgical laboratory assistant. The patient is a 63 year old F presents with hyperglycemia. BGTs were 500. Resumed on her regular insulin from home. BGTs were controlled here. Patient was going to be discharged on 10/05, however, she had dysarthria and left-sided weakness. She was evaluated by neurology, who found so inconsistencies in exam. MRI was negative. Therefore, CVA was ruled out. Unclear, if clear neurologic event or psychosomatic.[] - Physical Exam General: Alert, Cooperative, No apparent distress HEENT: Atraumatic, Normocephalic Oral: Moist Mucosa, No Gingival or Mucosal Lesions/ Ulcerations Psych/Mental Status: Normal Affect, Appropriate Vital Signs Temp Pulse Resp BP Pulse Ox 36.6 C 62 15 128/72 H 98 10/06/18 13:10 10/06/18 13:10 10/06/18 13:10 10/06/18 13:10 10/06/18 13:10 Oxygen Delivery Method Room Air Weight: 67.6 kg Body Mass Index (BMI) 26.4 Finger Stick Blood Glucose 190 Intake and Output for Last 24 Hours 10/04/18 10/05/18 10/06/18 23:59 23:59 23:59 Intake Total 440 / 440 Balance 440 / 440 Microbiology Past 72 Hours 10/05/18 Unknown Urine Culture - Preliminary Urine, Clean Catch Mixed Gram Positive Organisms POC Glucose 10/06/18 10/06/18 10/06/18 10:55 06:42 03:03 POC Glucose 119 H 86 107 10/05/18 10/05/18 21:05 16:49 POC Glucose 199 H 201 H Discharge Diet: Low fat/ Low Cholesterol, 1800 Calorie Control Diet, 2000 mg Sodium Diet Discharge Activity: Return to Normal Activity Disposition: Home Minutes spent on discharge:: 35 Patient Condition:: Stable Medical Necessity - Tobacco Use Smoking Status: Former smoker Meaningful Use Info Meaningful Use Diagnoses (Choose all that apply): None applicable Code Visit Inpatient E&M: 56805 Disch Hosp
== END 2018-10-06 11:38 | disposition home or self-care (01) ==
LOC: ED 19:19 → PCU 10-05 00:11
PROVIDERS: Psychiatry & Neurology Neurology; Admitting Provider Hospitalist; Emergency Provider Emergency Medicine; Family Provider Family Medicine; PCP Family Medicine
DX: E11.65 Type 2 diabetes mellitus with hyperglycemia (principal); K21.9 Gastro-esophageal reflux disease without esophagitis; I25.10 Atherosclerotic heart disease of native coronary artery without angina pectoris; J44.9 Chronic obstructive pulmonary disease, unspecified; I25.2 Old myocardial infarction; E78.5 Hyperlipidemia, unspecified; H53.8 Other visual disturbances; I11.0 Hypertensive heart disease with heart failure; I50.9 Heart failure, unspecified; Z79.02 Long term (current) use of antithrombotics/antiplatelets; Z79.4 Long term (current) use of insulin; Z79.899 Other long term (current) drug therapy; Z79.82 Long term (current) use of aspirin; Z87.891 Personal history of nicotine dependence; Z95.5 Presence of coronary angioplasty implant and graft; E83.51 Hypocalcemia; F41.9 Anxiety disorder, unspecified; F31.9 Bipolar disorder, unspecified; R47.89 Other speech disturbances; R53.1 Weakness; I08.3 Combined rheumatic disorders of mitral, aortic and tricuspid valves; E87.1 Hypo-osmolality and hyponatremia
CPT/HCPCS: 36415; 70450; 70553; 71045; 80048; 80178; 81001; 82009; 82803; 82962; 83735; 84100; 84484; 85025; 87086; 87088; 92526; 93005; 93306; 95819; 96361; 96372; 96374; 96375; 97162; 97166; 97535; 97802; 99218; 99285; A9585; J7030; A4216; G0378; J2405

== ENCOUNTER 2018-11-17 19:36 | Observation (INO) | payer MEDICARE, SELFPAY ==
[2017-03-16 08:30] VITALS: BMI 29.2
[2018-10-05 00:32] VITALS: BMI 26.4
[2018-11-17 19:38] VITALS: BP 169/82; PULSE 100; RESP 18; TEMP 36.8; O2SAT 99; BMI 26.4
--- NOTE | 2018-11-17 19:41 | ED.RN ---
RN CALLED FOR EKG, PULLED OLD EKGS FOR
--- NOTE | 2018-11-17 20:11 | EKG12_ITS ---
Test Reason : CP Blood Pressure : / mmHG Vent. Rate : 076 BPM Atrial Rate : 076 BPM P-R Int : 144 ms QRS Dur : 080 ms QT Int : 422 ms P-R-T Axes : 034 015 010 degrees QTc Int : 474 ms Normal sinus rhythm Normal ECG Confirmed by DAVID CAMPBELL MD ([id number]), medical transcription editor ARON HASKINS ([id number]) on 11/20/2018 10:13:03 AM Referred By: SUSHMA Confirmed By:DAVID CAMPBELL MD
--- NOTE | 2018-11-17 20:20 | RAD_ITS ---
STUDY: X-RAY CHEST REASON FOR EXAM: Female, 63 years old. Chest pain TECHNIQUE: AP COMPARISON: None. FINDINGS: EKG leads project over the chest. The lungs are clear and expanded. There is no demonstrated pleural abnormality. Normal size heart. Coronary artery stent noted. Normal mediastinum and jovan. Normal visualized pulmonary arteries. Normal visualized aortic arch and descending thoracic aorta. Normal visualized thoracic spine. Normal visualized ribs, clavicles, and shoulders. There is no demonstrated abnormality of the visualized soft tissue structures of the upper abdomen. RAD/Chest 1 View (Portable) IMPRESSION: Stable, nonacute portable x-ray examination of the chest. Electronically Signed: Marshal Warren MD at 20:29 EST , Service support ,
[2018-11-17 20:21] LABS: Absolute Lymphocyte Count 2.94 X10^3/ul (0.83-4.51); Absolute Neutrophil Count 3.6 X10^3/uL (2.0-7.7); Basophil# 0.03 X10^3/uL; Basophil% 0.4 % (0-1); Eosinophils% 2.8 % (0-5); Hematocrit 41.9 % (37-47); Hemoglobin 14.3 g/dl (12.0-15.0); Lymphocyte # 2.94 X10^3/ul (4.0); Lymphocyte % 40.4 % (19-41); Mean Corp Hgb Conc 34.1 g/gl (32-36); Mean Corpuscular Volume 90.7 fL (81-99); Mean Platelet Vol. 11.7 fl (6.2-12.0); Monocyte# 0.51 X10^3/uL; Neutrophil # 3.56 X10^3/uL (2.7-7.7); Platelet Count 219 K/mm3 (150-450); RBC Distribution Width CV 12.6 % (11.6-14.6); RBC Distribution Width SD 41.4 fl (35.1-43.9); Red Blood Count 4.62 M/mm3 (4.2-5.4); White Blood Count 7.3 K/mm3 (4.4-11.0)
[2018-11-17 20:22] LABS: POSITIVE COUNT NO; POSITIVE DIFFERENTIAL NO; POSITIVE MORPHOLOGY NO
--- NOTE | 2018-11-17 20:33 | ED.VISSUMM ---
- ER Visit Summary Date of Service: 11/17/18 Chief Complaint: Chest pain History of Present Illness: The patient is a 63 F presenting with chest pain. She states this started 2 hours prior to arrival. Pain is midsternal radiates to her left arm. She tried 2 nitro at home with no relief. She has associated shortness of breath, diaphoresis, nausea. She has a history of multiple stents in the past. She has history of coronary disease, diabetes, hypertension. She is a previous smoker. Family history of early heart disease. She also states her blood sugar has been running high. Physical Examination: Vitals are stable. Patient is afebrile. Alert no acute distress. HEENT exam is unremarkable. Neck is supple. Lungs are clear and equal bilaterally. Heart is regular rate and rhythm. Abdomen is soft nontender nondistended. Extremities are unremarkable. Skin is warm and dry. No focal neurologic deficit. Remainder of exam is unremarkable. Emergency Department Course and Treatment: Patient was given aspirin on arrival. She has an allergy to morphine. She is given Dilaudid, Zofran IV. EKG is sinus rate of 93 with no acute ischemic changes. Chest x-ray shows no acute process. CBC, chemistries unremarkable other than glucose 597. Troponin is negative. D-dimer is normal. She was given insulin subcutaneously. On reevaluation, she is chest pain-free. Discussed with the hospitalist for observation. Disposition: Observation Impression: Chest pain, hyperglycemia This note was generated with [employer] dictation software. It may contain incorrect words, spelling, and punctuation that were not noted in review of the chart prior to signing ED Disposition - Plan for ED Patient: Referrals: Monster Salcedo MD [Primary Care Provider] -
[2018-11-17] MEDS: Ondansetron 4 MG/2 ML Vial IV (20:34)
[2018-11-17] MEDS: Aspirin 81 MG TAB.CHEW 324 MG PO (20:34)
[2018-11-17] MEDS: HYDROmorphone 0.5 MG/0.5 ML SYRINGE IV ×2 (20:36→23:08)
[2018-11-17 20:38] VITALS: BP 143/74; PULSE 80; RESP 17; O2SAT 98
[2018-11-17 20:38] LABS: Anion Gap 11 (5-15); BUN 11 mg/dL (7-18); BUN/Creat Ratio 10.4 RATIO (10-20); Calcium,Total 8.8 mg/dL (8.5-10.1); Chloride 102 mmol/L (98-107); Creatinine, Serum 1.06 mg/dL (0.55-1.02); EST Glomerular Filtration Rate 55 mL/min (>60); Est Glom Filt Rate - Afr Amer 67 mL/min (>60); Estimated Creatinine Clearance 43.77 ml/min; Glucose 597 mg/dL (74-106); Potassium 3.7 mmol/L (3.5-5.1); Sodium Level 135 mmol/L (136-145)
--- NOTE | 2018-11-17 20:38 | ED.RN ---
critical lab value of blood glucose [address] Chavarria notified. no new orders
[2018-11-17] MEDS: Insulin Lispro 100 UNIT/ML INSULN.PEN 10 UNIT SC (20:59)
[2018-11-17 21:02] VITALS: BP 148/71; PULSE 81; RESP 14; O2SAT 98
[2018-11-17 21:09] LABS: D-Dimer Quantitative (DVT/PE) 0.36 FEU/ug/m (0.27-0.49)
--- NOTE | 2018-11-17 21:28 | HP.PCM_ITS ---
Problem List (1) Chest pain Status: Acute (2) Acute hyperglycemia Status: Acute (3) Uncontrolled type 2 diabetes mellitus Status: Chronic History of Present Illness Date of Admission: 11/17/18 Chief Complaint: chest Pain The patient is a 63 year old F with a significant history of CAD status post coronary stent and on dual antiplatelet therapy; COPD; and diabetes mellitus who presented with a 3-hour history of excruciating progressively worsening epigastric pain that radiated to her substernal area and into her left arm and with a tingling sensation at the finger tips of her left arm. Associated with her symptoms is shortness of breath. Patient reported that her last meal was about 2 hours before her symptoms started. She reported that she had nausea and vomited after taking her last meal. Also she reported vomiting after taking her second nitroglycerin when her chest pain started. Denies any aggravating factor to her chest pain. She thinks that the second nitroglycerin that she took gave her a little relief. She denies diaphoresis. She reported that she had malaise all day even before her chest pain started. Patient is allergic to morphine and was given Dilaudid at emergency department. She reported that Dilaudid helped with her chest pain. She reported that her chest pain is reminiscent of her last heart attack. She has had 2 heart john cks. Her last IA was about 2 years ago and the first one was about 4 years ago. Her brother from massive heart attack at age 46. Her mother also from massive heart attack when she was in her 70s. Further she reports elevated blood glucose at home. At the emergency department her blood glucose was found to be 597. She had no anion gap. Her sodium was mildly low at 135. She was given 10 units of insulin lispro subcutaneous. Past Medical History Past Medical History (Chronic Problems): Chronic Problems GERD (gastroesophageal reflux disease) (Chronic) Uncontrolled type 2 diabetes mellitus (Chronic) Benign essential hypertension (Chronic) Type 2 diabetes mellitus (Chronic) Hyperlipidemia (Chronic) Coronary artery disease (Chronic) ROMEL LAD 01/21 COPD (chronic obstructive pulmonary disease) (Chronic) cont smoking Tobacco abuse (Chronic) NSTEMI (non-ST elevated myocardial infarction) (Chronic) Allergies Penicillins Allergy (Verified 11/17/18 19:40) Hives morphine Adverse Reaction (Mild, Verified 11/17/18 19:40) Itching hydrocodone bitartrate [From Vicodin] Adverse Reaction (Verified 11/17/18 19:40) Vomiting ibuprofen Adverse Reaction (Verified 11/17/18 19:40) Vomiting Home Medications: Ambulatory Orders Medication Instructions Recorded Aspirin [Adult Low Dose Aspirin EC] 81 mg PO DAILY 02/04/16 Simvastatin [Zocor] 40 mg PO QHS 01/24/17 Clopidogrel Bisulfate [Plavix] 75 mg PO DAILY 06/23/17 Metoprolol Tartrate [Lopressor 25 mg PO BID 06/23/17 (beta elder)] Nitroglycerin [Nitrostat] 0.4 mg SUBLINGUAL Q5M PRN 09/28/17 Insulin Detemir [Levemir FlexPen] 23 units SC BREAKFAST 02/18/18 Glimepiride [Amaryl] 4 mg PO DAILY #30 tab 05/31/18 Insulin Detemir [Levemir Flextouch] 26 unit SC QHS #1 insuln.pen 05/31/18 Cyclobenzaprine [Flexeril] 10 mg PO TID PRN #20 tablet 07/02/18 Quetiapine Fumarate [Seroquel] 100 mg PO QHS 09/14/18 Risperidone [Risperdal] 4 mg PO QHS 09/14/18 Pantoprazole Sodium [Protonix] 40 mg PO DAILY 10/05/18 [place] Carbonate [[place] 300 mg PO BID 10/26/18 Carbonate ER] Furosemide [Lasix] 40 mg PO DAILY 11/17/18 Lisinopril 5 mg PO DAILY 11/17/18 Metformin HCl 1,000 mg PO BID 11/17/18 Surgical History: angioplasty, appendectomy, cholecystectomy, hysterectomy, - Lives: With Family Smoking Status: Former smoker Alcohol: None - *Family History Maternal History Items: Cancer - Uterine cancer, Diabetes, Heart Disease Paternal History Items: Heart Disease Sibling History Items: Diabetes, Heart Disease, Hypertension Review of Systems Constitutional: Reports: Malaise. Denies: Chills, Fever, Weight Change HEENT: Denies: Head Aches, Sinus Congestion, Sinus Drainage Cardiovascular: Reports: Chest Pain. Denies: Palpitations Respiratory: Reports: Shortness of Breath. Denies: Cough Gastrointestinal: Reports: Nausea, Vomiting. Denies: Abdominal Pain Genitourinary: Denies: Dysuria Musculoskeletal: Denies: Joint Pain, Joint Tenderness Skin: Denies: Rash, Wounds Neurological: Denies: Numbness, Tingling, Focal weakness Psychiatric: Denies: Anxiety, Depression, Homicidal Ideations, Suicidal Ideations Hematologic/ Lymphatic: Denies: Easy Bruising, Easy Bleeding VTE Information - Inpt Only VTE Present on Admission: No VTE Mechan Device Prophylaxis: None VTE Pharm Prophylaxis ordered?: Yes - Physical Exam General: Alert, Oriented x3, Cooperative HEENT: Atraumatic, PERRLA, EOMI, Normocephalic Neck: Supple, No JVD, Negative Carotid Bruits Lungs: Clear to auscultation, Normal air movement Cardiovascular: Regular rate, No murmurs Abdomen: Bowel Sounds Present, Soft, Non Tender Extremities: No edema, Capillary Refill Less than 3 Seconds Skin: No rashes, No breakdown Musculoskeletal: No Tenderness to Palpation of Joints or Extremities Neurological: Neuro grossly intact Psych/Mental Status: Normal Affect, Appropriate Vital Signs Temp Pulse Resp BP Pulse Ox 98.2 F 81 14 148/71 H 98 11/17/18 19:38 11/17/18 21:02 11/17/18 21:02 11/17/18 21:02 11/17/18 21:02 Oxygen Flow Rate (L/min) 2 Oxygen Delivery Method Room Air Weight: 67.8 kg Body Mass Index (BMI) 26.4 Finger Stick Blood Glucose 190 Laboratory Tests Past 24 Hrs 11/17/18 11/17/18 11/17/18 19:55 19:55 20:30 WBC 7.3 RBC 4.62 Hgb 14.3 Hct 41.9 MCV 90.7 MCH 31.0 MCHC 34.1 RDW 12.6 RDW Differential 41.4 Plt Count 219 MPV 11.7 Immature Gran % (Auto) 0.400 Neut % (Auto) 49.0 Lymph % (Auto) 40.4 [place] % (Auto) 7.0 Eos % (Auto) 2.8 Baso % (Auto) 0.4 Absolute Neuts (auto) 3.6 Absolute Lymphs (auto) 2.94 Total Counted Not Reportable D-Dimer Quant (PE/DVT) 0.36 Sodium 135 L Potassium 3.7 Chloride 102 Carbon Dioxide 22.0 Anion Gap 11 BUN 11 Creatinine 1.06 H Estim Creat Clear Calc 43.77 Est GFR (MDRD) Af Amer 67 Est GFR (MDRD) Non-Af 55 L BUN/Creatinine Ratio 10.4 Glucose 597 H* Calcium 8.8 Troponin I < 0.015 Assessment/Plan All Active Problems Acute hyperglycemia (Acute) Chest pain (Acute) VTE (venous thromboembolism) (Resolved) The patient is a 63 year old F with a significant history of CAD status post coronary stent and on dual antiplatelet therapy; COPD; and diabetes mellitus and with family history of cardiac disease who presented with chest pain; and also with acute hyperglycemia. Chest pain Heart score is 6 points; moderate score (moderately suspicious; nonspecific repolarization disturbance; age 63; more than or equal to 3 risk factors) Admit to a monitored bed on PCU CXR independently reviewed confirms no acute cardiopulmonary process. EKG independently reviewed confirms T wave flattening in inferior leads. ASA 81 mg p.o. daily Dilaudid as needed for pain We will check lipid panel. Statin ordered. Serial cardiac enzymes Stat EKG as needed for chest pain Stress test in the AM if the cardiac enzymes are negative Uncontrolled diabetes with acute hyperglycemia. On presentation her blood glucose was 597. She had no anion gap. Her sodium was 135. Patient received a 10 units of lispro subcutaneous in the emergency department. At home patient take metformin thousand milligrams p.o. twice daily. Since it is too early in her admission would hold metformin at this time. We will put patient on high scale correction scale. Of note patient will be kept n.p.o. for possible cardiac interventions. We will hold Lasix and hydrate patient with normal saline with potassium. Please resume Lasix when appropriate. Hyponatremia: On presentation her sodium was 135. Corrected for glucose her s odium is 143 Treat uncontrolled diabetes with acute hyperglycemia as above. Trend BMP COPD Does not appear to be in exacerbation. However because of reported shortness of breath will put patient on scheduled DuoNeb and as needed albuterol. DVT prophylaxis Subcutaneous heparin ordered Code Visit OBSV E&M: 68574 Initial observation care L3
[2018-11-17 22:10] VITALS: BP 147/66; PULSE 77; PULSE 79; RESP 17; RESP 20; O2SAT 95; O2SAT 97
[2018-11-17 22:42] LABS: Bedside Glucose 342 mg/dL (70-110)
[2018-11-17 23:28] VITALS: PULSE 56
--- NOTE | 2018-11-17 23:37 | EKG12_ITS ---
Test Reason : CP Blood Pressure : / mmHG Vent. Rate : 093 BPM Atrial Rate : 093 BPM P-R Int : 132 ms QRS Dur : 078 ms QT Int : 374 ms P-R-T Axes : 037 027 029 degrees QTc Int : 465 ms Normal sinus rhythm Nonspecific ST abnormality Abnormal ECG Confirmed by ADRIAN BARFIELD, DAVID ([id number]), videotape editor ARON HASKINS ([id number]) on 11/20/2018 10:14:17 AM Referred By: SUSHMA Confirmed By:DAVID CAMPBELL MD
[2018-11-17 23:45] VITALS: BP 134/67; PULSE 75; RESP 16; TEMP 36.7; O2SAT 94
[2018-11-17 23:51] VITALS: BMI 25.9
[2018-11-17 23:56] VITALS: BMI 25.9
[2018-11-18] VITALS (9 sets, daily range): BP systolic 102–131; BP diastolic 52–71; PULSE 67–88; RESP 13–18; TEMP 36.3–36.6; O2SAT 96–100
[2018-11-18] MEDS: 0.9% NaCl Peripheral Flush Adult/Peds IV (01:05)
[2018-11-18] MEDS: Potassium Chloride 40 MEQ in 0.9% Normal Saline 1,000 ML 100 MEQ IV (01:05)
[2018-11-18] MEDS: Nitroglycerin Oint 1 INCH PACKET TRANSDERM. (01:11)
[2018-11-18] MEDS: Pravastatin 80 MG Tablet PO (01:12)
[2018-11-18] MEDS: QUEtiapine 100 MG Tablet PO (01:12)
[2018-11-18] MEDS: RisperiDONE 2 MG Tablet 4 MG PO (01:12)
[2018-11-18] MEDS: Insulin Lispro 100 UNIT/ML INSULN.PEN SQ ×3 (01:19→11:19)
[2018-11-18 01:27] LABS: Bedside Glucose 229 mg/dL (70-110)
--- NOTE | 2018-11-18 01:37 | EKG12_ITS ---
Test Reason : CP ADMIT Blood Pressure : / mmHG Vent. Rate : 067 BPM Atrial Rate : 067 BPM P-R Int : 132 ms QRS Dur : 086 ms QT Int : 438 ms P-R-T Axes : 036 039 043 degrees QTc Int : 462 ms Normal sinus rhythm Normal ECG When compared with ECG of 17-NOV-2018 23:03, MANUAL COMPARISON REQUIRED, DATA IS UNCONFIRMED Confirmed by ADRIAN BARFIELD, DAVID ([id number]), editorial project manager ARON HASKINS ([id number]) on 11/23/2018 11:45:36 AM Referred By: DR NIEVES Confirmed By:DAVID CAMPBELL MD
--- NOTE | 2018-11-18 02:30 | NURSING ---
Dr. Alexis ordering stress test for today. did not want another CBC ordered for this morning,.
[2018-11-18 04:18] LABS: Prothrombin Time (Protime)PT. 12.7 SECONDS (11.7-14.9)
[2018-11-18] MEDS: Aspirin E.C. 81 MG Tablet PO (05:32)
[2018-11-18] MEDS: Clopidogrel Bisulfate 75 MG Tablet PO (05:32)
[2018-11-18] MEDS: Lisinopril 5 MG Tablet PO (05:32)
[2018-11-18 06:12] LABS: Bedside Glucose 234 mg/dL (70-110)
[2018-11-18 07:11] LABS: Anion Gap 8 (5-15); BUN 8 mg/dL (7-18); BUN/Creat Ratio 11.8 RATIO (10-20); Calcium,Total 8.3 mg/dL (8.5-10.1); Chloride 109 mmol/L (98-107); Cholesterol 164 mg/dL (200); Creatinine, Serum 0.68 mg/dL (0.55-1.02); EST Glomerular Filtration Rate 92 mL/min (>60); Est Glom Filt Rate - Afr Amer 112 mL/min (>60); Estimated Creatinine Clearance 68.23 ml/min; Glucose 222 mg/dL (74-106); High Density Lipoprotein 41 mg/dL; Potassium 3.8 mmol/L (3.5-5.1); Sodium Level 142 mmol/L (136-145); Triglycerides 166 mg/dL; Very Low Density Lipoprotein 33 mg/dL (5-40)
[2018-11-18] MEDS: Ipratropium/Albuterol Sulfate 3 ML AMPUL.NEB INHALATION (07:42)
--- NOTE | 2018-11-18 09:05 | CPS ---
Patient taken to stress lab, post assessment not done.
--- NOTE | 2018-11-18 09:46 | CASEMGMT ---
POA forms in Echart from May of 2018, SW printed and they will be placed in chart when pt returns to the floor. Pt does not have a living will on file. SHARRI Lao, MENTAL HEALTH DIRECTOR
[2018-11-18] MEDS: Glimepiride 4 MG Tablet PO (10:12)
[2018-11-18] MEDS: Lithium Carbonate 300mg Capsule 300 MG PO (10:12)
[2018-11-18] MEDS: Pantoprazole Sodium 40 MG Tablet PO (10:12)
[2018-11-18] MEDS: Metoprolol Tartrate 25 MG Tablet PO (10:13)
--- NOTE | 2018-11-18 10:13 | STRESSREP ---
Stress Test Report Pharmacologic myocardial perfusion stress test. 63-year-old lady with a history of significant coronary artery disease. Stress protocol: Resting EKG demonstrates normal sinus rhythm with a rate of 83 bpm normal intervals are noted resting blood pressure 112/60 mmHg. 0.4 mg of regadenoson was infused per usual protocol followed by rapid intravenous saline flush injection continuous EKG monitoring was performed. The maximum heart rate attained was noted to be 98 bpm. The resting blood pressure was 112/60 with a final blood pressure 110/66 mmHg. At rest there were no ST or T wave changes noted suggest abnormal flow reserve at peak infusion no ST or T wave changes were noted suggest abnormal flow reserve. Myocardial perfusion protocol. 11.9 mCi of technetium 99m sestamibi was injected at rest. 0.4 mg of regadenoson was infused per usual protocol. At peak infusion 36.0 mCi of technetium 99m sestamibi was injected stress images were obtained stress and rest images were reconstructed and compared in the short axis vertical long horizontal long axis. Gated images were also obtained per Perfusion SPECT analysis: Review of the stress images demonstrate normal uptake of tracer noted in all areas of the myocardium. The resting images similarly demonstrate normal uptake of tracer noted in all areas of the myocardium. No areas of reversibility are noted suggest ischemia. Gated SPECT analysis. The gated ejection fraction is noted to be 86%. Conclusion: Normal pharmacologic myocardial perfusion stress test. Preserved ejection fraction.
--- NOTE | 2018-11-18 11:23 | PCM.DC ---
- Discharge Diagnoses Reason(s) for Visit for Discharge Instructions: Chest pain You will use the following diet at home:: Calorie/Carbohydrate Controlled (specify 1200, 1400, etc), Cardiac Your food should be the consistency of: Regular Your liquids should be the consistency of: Regular/Thin Discharge Activity: Return to Normal Activity Additional Instructions: Continue to take all your medications as prescribed. Allergies/Adverse Reactions: Allergies Penicillins Allergy (Verified 11/17/18 19:40) Hives morphine Adverse Reaction (Mild, Verified 11/17/18 19:40) Itching hydrocodone bitartrate [From Vicodin] Adverse Reaction (Verified 11/17/18 19:40) Vomiting ibuprofen Adverse Reaction (Verified 11/17/18 19:40) Vomiting Medications to take at Discharge Aspirin [Adult Low Dose Aspirin EC] 81 mg PO DAILY 02/04/16 Simvastatin [Zocor] 40 mg PO QHS 01/24/17 Clopidogrel Bisulfate [Plavix] 75 mg PO DAILY 06/23/17 Metoprolol Tartrate [Lopressor (beta elder)] 25 mg PO BID 06/23/17 Nitroglycerin [Nitrostat] 0.4 mg SUBLINGUAL Q5M PRN 09/28/17 Insulin Detemir [Levemir FlexPen] 23 units SC BREAKFAST 02/18/18 Glimepiride [Amaryl] 4 mg PO DAILY #30 tab 05/31/18 Insulin Detemir [Levemir Flextouch] 26 unit SC QHS #1 insuln.pen 05/31/18 Cyclobenzaprine [Flexeril] 10 mg PO TID PRN #20 tablet 07/02/18 Quetiapine Fumarate [Seroquel] 100 mg PO QHS 09/14/18 Risperidone [Risperdal] 4 mg PO QHS 09/14/18 Pantoprazole Sodium [Protonix] 40 mg PO DAILY 10/05/18 [place] Carbonate [[place] Carbonate ER] 300 mg PO BID 10/26/18 Furosemide [Lasix] 40 mg PO DAILY 11/17/18 Lisinopril 5 mg PO DAILY 11/17/18 Metformin HCl 1,000 mg PO BID 11/17/18 Primary Care Physician: Monster Salcedo MD [Primary Care Provider] - Please follow up with your Primary Care Physician in: within 1-2 weeks Test Results: Test results from this visit will be discussed in further detail at your follow-up appointment, if applicable. Proposed Discharge Date: 11/18/18
[2018-11-18 11:27] LABS: Bedside Glucose 284 mg/dL (70-110)
--- NOTE | 2018-11-18 13:16 | DS.PCM_ITS ---
Discharge Date and Diagnosis Date of Admission: 11/17/18 Date of Discharge: 11/18/18 - Primary Discharge Diagnosis Chest pain Uncontrolled Type 2 DM Hyponatremia - Secondary Discharge Diagnosis Chronic Problems GERD (gastroesophageal reflux disease) (Chronic) Uncontrolled type 2 diabetes mellitus (Chronic) Benign essential hypertension (Chronic) Type 2 diabetes mellitus (Chronic) Hyperlipidemia (Chronic) Coronary artery disease (Chronic) ROMEL LAD 01/21 COPD (chronic obstructive pulmonary disease) (Chronic) cont smoking Tobacco abuse (Chronic) NSTEMI (non-ST elevated myocardial infarction) (Chronic) Hospital Course and Treatment Imaging Results: Clinical Impression(s) from Imaging Studies Chest X-Ray 11/17/18 20:20 IMPRESSION: Stable, nonacute portable x-ray examination of the chest. Electronically Signed: Marshal Warren MD at 20:29 EST , Service support , None Operations: None Procedures: None Summary of Care Provided: The patient is a 63 year old F with past medical history of CAD status post stent, type II DM, COPD who comes in with complaints of chest pain and found also to have elevated blood sugar. Vitals are stable. Patient was admitted to the telemetry bed, findings were negative. Patient underwent stress test that was negative. Her blood sugars were controlled during this hospital stay. She was discharged home to continue on her medications. Subjective: On the day of discharge, patient had no new complaints. Denies any dizziness or shortness of breath or palpitations. No acute events on telemetry - Physical Exam General: Alert, Oriented x3, Cooperative, No apparent distress HEENT: Atraumatic, PERRLA, EOMI, Normocephalic Neck: Supple, No JVD, Negative Carotid Bruits Lungs: Clear to auscultation, Normal air movement Cardiovascular: Regular rate, Regular Rhythm, Normal S1, Normal S2, No murmurs Abdomen: Bowel Sounds Present, Soft, Non Tender Extremities: No edema, Capillary Refill Less than 3 Seconds Skin: No rashes, No breakdown Musculoskeletal: No Tenderness to Palpation of Joints or Extremities Lymphatic: No Cervical, Supraclavicular, or Inguinal Adenopathy Neurological: Cranial nerves II-XII grossly intact, Neuro grossly intact Psych/Mental Status: Normal Affect, Appropriate Vital Signs Temp Pulse Resp BP Pulse Ox 97.8 F 70 16 102/52 L 100 11/18/18 10:07 11/18/18 11:00 11/18/18 10:07 11/18/18 10:07 11/18/18 10:07 Oxygen Flow Rate (L/min) 2 Oxygen Delivery Method Room Air Weight: 66.3 kg Body Mass Index (BMI) 25.9 Finger Stick Blood Glucose 342 Intake and Output for Last 24 Hours 11/16/18 11/17/18 11/18/18 23:59 23:59 23:59 Intake Total 946 / 946 Balance 946 / 946 Laboratory Tests Past 24 Hrs 11/17/18 11/17/18 11/17/18 19:55 19:55 20:30 WBC 7.3 RBC 4.62 Hgb 14.3 Hct 41.9 MCV 90.7 MCH 31.0 MCHC 34.1 RDW 12.6 RDW Differential 41.4 Plt Count 219 MPV 11.7 Immature Gran % (Auto) 0.400 Neut % (Auto) 49.0 Lymph % (Auto) 40.4 [place] % (Auto) 7.0 Eos % (Auto) 2.8 Baso % (Auto) 0.4 Absolute Neuts (auto) 3.6 Absolute Lymphs (auto) 2.94 Total Counted Not Reportable PT INR D-Dimer Quant (PE/DVT) 0.36 Sodium 135 L Potassium 3.7 Chloride 102 Carbon Dioxide 22.0 Anion Gap 11 BUN 11 Creatinine 1.06 H Estim Creat Clear Calc 43.77 Est GFR (MDRD) Af Amer 67 Est GFR (MDRD) Non-Af 55 L BUN/Creatinine Ratio 10.4 Glucose 597 H* Calcium 8.8 Troponin I < 0.015 Triglycerides Cholesterol LDL Cholesterol VLDL Cholesterol HDL Cholesterol 11/18/18 11/18/18 11/18/18 00:28 03:29 03:29 WBC RBC Hgb Hct MCV MCH MCHC RDW RDW Differential Plt Count MPV Immature Gran % (Auto) Neut % (Auto) Lymph % (Auto) [place] % (Auto) Eos % (Auto) Baso % (Auto) Absolute Neuts (auto) Absolute Lymphs (auto) Total Counted PT 12.7 INR 1.0 D-Dimer Quant (PE/DVT) Sodium Potassium Chloride Carbon Dioxide Anion Gap BUN Creatinine Estim Creat Clear Calc Est GFR (MDRD) Af Amer Est GFR (MDRD) Non-Af BUN/Creatinine Ratio Glucose Calcium Troponin I < 0.015 < 0.015 Triglycerides Cholesterol LDL Cholesterol VLDL Cholesterol HDL Cholesterol 11/18/18 06:15 WBC RBC Hgb Hct MCV MCH MCHC RDW RDW Differential Plt Count MPV Immature Gran % (Auto) Neut % (Auto) Lymph % (Auto) [place] % (Auto) Eos % (Auto) Baso % (Auto) Absolute Neuts (auto) Absolute Lymphs (auto) Total Counted PT INR D-Dimer Quant (PE/DVT) Sodium 142 Potassium 3.8 Chloride 109 H Carbon Dioxide 25.0 Anion Gap 8 BUN 8 Creatinine 0.68 Estim Creat Clear Calc 68.23 Est GFR (MDRD) Af Amer 112 Est GFR (MDRD) Non-Af 92 BUN/Creatinine Ratio 11.8 Glucose 222 H Calcium 8.3 L Troponin I Triglycerides 166 Cholesterol 164 LDL Cholesterol 90 VLDL Cholesterol 33 HDL Cholesterol 41 POC Glucose 11/18/18 11/18/18 11/18/18 11:15 05:27 01:16 POC Glucose 284 H 234 H 229 H 11/17/18 22:38 POC Glucose 342 H Discharge Diet: Low fat/ Low Cholesterol, 2000 mg Sodium Diet, Carb Control Diet Discharge Activity: Return to Normal Activity Home Medications: Medications to take at Discharge Aspirin [Adult Low Dose Aspirin EC] 81 mg PO DAILY 02/04/16 Simvastatin [Zocor] 40 mg PO QHS 01/24/17 Clopidogrel Bisulfate [Plavix] 75 mg PO DAILY 06/23/17 Metoprolol Tartrate [Lopressor (beta elder)] 25 mg PO BID 06/23/17 Nitroglycerin [Nitrostat] 0.4 mg SUBLINGUAL Q5M PRN 09/28/17 Insulin Detemir [Levemir FlexPen] 23 units SC BREAKFAST 02/18/18 Glimepiride [Amaryl] 4 mg PO DAILY #30 tab 05/31/18 Insulin Detemir [Levemir Flextouch] 26 unit SC QHS #1 insuln.pen 05/31/18 Cyclobenzaprine [Flexeril] 10 mg PO TID PRN #20 tablet 07/02/18 Quetiapine Fumarate [Seroquel] 100 mg PO QHS 09/14/18 Risperidone [Risperdal] 4 mg PO QHS 09/14/18 Pantoprazole Sodium [Protonix] 40 mg PO DAILY 10/05/18 [place] Carbonate [[place] Carbonate ER] 300 mg PO BID 10/26/18 Furosemide [Lasix] 40 mg PO DAILY 11/17/18 Lisinopril 5 mg PO DAILY 11/17/18 Metformin HCl 1,000 mg PO BID 11/17/18 Primary Care Physician: Monster Salcedo MD [Primary Care Provider] - Please follow up with your Primary Care Physician in: within 1-2 weeks Disposition: Home Minutes spent on discharge:: 40 Patient Condition:: Stable Medical Necessity - Tobacco Use Smoking Status: Former smoker Tobacco Use: Non-smoker Meaningful Use Info Meaningful Use Diagnoses (Choose all that apply): None applicable Code Visit OBSV E&M: 35399 Observation care discharge
== END 2018-11-18 11:22 | disposition home or self-care (01) ==
LOC: ED 21:13 → PCU 22:26
PROVIDERS: Admitting Provider Hospitalist; Emergency Provider Emergency Medicine; Family Provider Family Medicine; PCP Family Medicine; Visit Provider Internal Medicine
DX: R07.89 Other chest pain (principal); E11.65 Type 2 diabetes mellitus with hyperglycemia; E87.1 Hypo-osmolality and hyponatremia; K21.9 Gastro-esophageal reflux disease without esophagitis; J44.9 Chronic obstructive pulmonary disease, unspecified; I25.2 Old myocardial infarction; E78.5 Hyperlipidemia, unspecified; I10 Essential (primary) hypertension; R06.02 Shortness of breath; Z79.899 Other long term (current) drug therapy; Z79.4 Long term (current) use of insulin; Z79.02 Long term (current) use of antithrombotics/antiplatelets; Z87.891 Personal history of nicotine dependence; Z82.49 Family history of ischemic heart disease and other diseases of the circulatory system; Z95.5 Presence of coronary angioplasty implant and graft; R20.2 Paresthesia of skin; R94.31 Abnormal electrocardiogram [ECG] [EKG]
CPT/HCPCS: 36415; 71045; 78452; 80048; 80061; 82962; 84484; 85025; 85379; 85610; 93005; 93017; 94640; 94660; 96361; 96374; 96375; 96376; 97802; 99218; 99284; A9500; J7030; A4216; G0378; J2405; J2785

== ENCOUNTER → 2018-11-22 16:17 | Outpatient (CLI) | payer MEDICARE, SELFPAY ==
[2017-03-16 08:30] VITALS: BMI 29.2
[2018-11-17 23:51] VITALS: BMI 25.9
[2018-11-22 17:54] LABS: Anion Gap 10 (5-15); BUN 11 mg/dL (7-18); BUN/Creat Ratio 10.9 RATIO (10-20); Calcium,Total 9.7 mg/dL (8.5-10.1); Chloride 99 mmol/L (98-107); Creatinine, Serum 1.01 mg/dL (0.55-1.02); EST Glomerular Filtration Rate 58 mL/min (>60); Est Glom Filt Rate - Afr Amer 71 mL/min (>60); Glucose 401 mg/dL (74-106); Potassium 4.4 mmol/L (3.5-5.1); Sodium Level 134 mmol/L (136-145)
[2018-11-22 17:56] LABS: Hemoglobin A1c 12.7 % (4.2-6.3)
== END ==
PROVIDERS: Family Provider Family Medicine; PCP Family Medicine; Visit Provider Family Medicine
DX: E11.9 Type 2 diabetes mellitus without complications (principal)
CPT/HCPCS: 36415; 80048; 83036

== ENCOUNTER → 2018-11-23 17:49 | Outpatient (CLI) | payer MEDICARE, SELFPAY ==
[2017-03-16 08:30] VITALS: BMI 29.2
[2018-11-17 23:51] VITALS: BMI 25.9
== END ==
PROVIDERS: Family Provider Family Medicine; PCP Family Medicine; Referring Provider Family Medicine; Visit Provider Family Medicine
DX: R30.0 Dysuria (principal)
CPT/HCPCS: 87086; 87088

== ENCOUNTER 2018-12-06 15:23 | Emergency (ER) | payer MEDICARE, SELFPAY ==
[2017-03-16 08:30] VITALS: BMI 29.2
[2018-12-06] VITALS (7 sets, daily range): BP systolic 115–130; BP diastolic 59–79; PULSE 77–84; RESP 12–25; TEMP 36.7; O2SAT 95–98; BMI 26.4
--- NOTE | 2018-12-06 15:37 | EKG12_ITS ---
Test Reason : CP Blood Pressure : / mmHG Vent. Rate : 084 BPM Atrial Rate : 084 BPM P-R Int : 144 ms QRS Dur : 080 ms QT Int : 398 ms P-R-T Axes : 049 037 018 degrees QTc Int : 470 ms Normal sinus rhythm Normal ECG Confirmed by ADRIAN BARFIELD, DAVID ([id number]), video tape editor ALEX EASTON ([id number]) on 12/07/2018 3:41:51 PM Referred By: ASHWIN Confirmed By:DAVID CAMPBELL MD
--- NOTE | 2018-12-06 15:45 | RAD_ITS ---
STUDY: X-RAY CHEST REASON FOR EXAM: Female, 63 years old. Chest pain. TECHNIQUE: Single AP portable view of the chest. COMPARISON: Comparison is made with prior study dated November 17, 2017. FINDINGS: EKG electrodes are seen. The lungs are clear and expanded. There is no demonstrated pleural abnormality. Normal size heart. Evidence of prior coronary artery stenting. Normal mediastinum and jovan. Normal visualized pulmonary arteries. Normal visualized aortic arch and descending thoracic aorta. Normal visualized thoracic spine. Normal visualized ribs, clavicles, and shoulders. There is no demonstrated abnormality of the visualized soft tissue structures of the upper abdomen. RAD/Chest 1 View (Portable) IMPRESSION: Normal x-ray examination of the chest. Electronically Signed: Uriah Weathers, at 15:58 EST , Service support ,
--- NOTE | 2018-12-06 15:48 | ED.VIS.GEN ---
History of Present Illness Chief Complaint: Chest Pain Detail of Chief Complaint: Onset 929 Informant: Patient Onset: Today Timing: Continuous Quality: Pressure/tightness sub-xiphoid epigastric region Location: Subxiphoid/epigastric region Current Severity: Moderate Maximum Severity: Severe Worsened by: Nothing Relieved by: Nothing Associated Symptoms: Nausea and vomiting x5, dyspnea Narrative: Patient with multiple medical problems including coronary disease status post non-STEMI. She states she has multiple stents. She states at 0930 she developed subxiphoid/epigastric pressure type sensation with dyspnea and vomiting. She has vomited additional 4 times. The pain has been constant since onset. She denies radiation. She denies hematemesis. She denies fever, chills night sweats. She denies leg pain, swelling discoloration. She does give symptoms of claudication. She states she had a headache after taking a nitro and it did burn under her tongue. She took 2. She reported minimal improvement. She contacted her PCP who recommended that she come to the emergency department. Patient states she is compliant with her Plavix. She is a former smoker. She is status post cholecystectomy. She denies history of pancreatitis. Prior similar symptoms: Yes Recent Illness/Hospitalization: No Past Medical History - Allergies and Home Meds Allergies/Adverse Reactions: Allergies Penicillins Allergy (Verified 12/06/18 15:26) Hives morphine Adverse Reaction (Mild, Verified 12/06/18 15:26) Itching hydrocodone bitartrate [From Vicodin] Adverse Reaction (Verified 12/06/18 15:26) Vomiting ibuprofen Adverse Reaction (Verified 12/06/18 15:26) Vomiting Primary Care Physician: Monster Salcedo MD [Primary Care Provider] - Prior records reviewed: Yes Past Medical History: - - Coronary disease, non-STEMI, type 2 diabetes, hypercholesterolemia, hypertension, CVA, GERD, COPD and pulmonary embolus. Surgical History: angioplasty, appendectomy, cholecystectomy, hysterectomy, - Lives: With Family Smoking Status: Former smoker Alcohol: None Drugs: None - Family History Maternal Family History: Reports: Cancer - Uterine cancer, Diabetes, Heart Disease Paternal Family History: Reports: Heart Disease Sibling Family History: Reports: Diabetes, Heart Disease, Hypertension Review of Systems General: Denies: Chills, Fever, Sweats Eyes: Denies: Visual changes - bilaterally, Blurred Vision - bilaterally, Diplopia ENT: Denies: Bilateral ear pain, Rhinorrhea, Sore throat Cardiovascular: Reports: Chest pain. Denies: Palpitations, Heart racing Respiratory: Reports: Dyspnea, Orthopnea - Stable 3 pillow orthopnea. Denies: Cough, Dyspnea on exertion, Paroxysmal nocturnal dyspnea Gastrointestinal: Reports: Nausea, Vomiting. Denies: Abdominal pain, Diarrhea, Melena, Hematochezia Genitourinary: Denies: Dysuria, Hematuria, Frequency Musculoskeletal: Denies: Myalgias, Arthralgias, Neck pain, Back pain, Extremity Pain Skin: Denies: Rash, Wounds Neurological: Denies: Headache, Weakness, Numbness Hematologic: Denies: Easy bruising, Easy bleeding Allergy: Denies: Uticaria, Swelling of the mouth Physical Exam Vital Signs/Narrative: Vital Signs Temp Pulse Resp BP Pulse Ox 12/06/18 15:38 96 12/06/18 15:24 98.1 F 84 12 130/79 H 97 Inital Vital Signs reviewed: Yes General: Well nourished, Well developed, No Acute Distress Head: Normocephalic, Atraumatic Eyes: Perrl, EOMI. Negative for: Pale conjunctiva, Scleral icterus ENT: Moist mucous membranes, No rhinorrhea, TM's clear Cardiovascular: Regular rate, Regular rhythm, No murmurs, Normal S1, Normal S2 Respiratory: No distress, CTA bilaterally, Chest nontender. Negative for: Decreased Air Movement Abdomen: Soft, Nondistended, Normal bowel sounds, No masses, Tender - In the epigastric region.. Negative for: Hepatomegaly, Splenomegaly, Pulsatile mass, Ventral hernia, Umbilical hernia Rectal: Deferred Back: Nontender, Normal Inspection Extremities: Nontender, No edema, - - There is stigmata of peripheral arterial disease. Negative for: Calf Tenderness Skin: Normal color, No rash. Negative for: Cyanosis, Jaundice Neurological: Alert, Oriented x3, Cranial nerves II-XII grossly intact, Normal Strength, Normal Sensation Psychological: Depressed Diagnostic/Tx/Re-eval Chest X-Ray - ED: 1 View, Read by ED Physician, Normal, Heart, Lungs, Mediastinum, Bony Structures, No Acute Disease Troponin #1 and 3-hour troponin normal with a delta of 0. The rest of her workup was unremarkable including chest x-ray. - Rhythm Strip Rhythm Strip: Sinus Rhythm Rate: 78 Ectopy: None - EKG Initial EKG Interpretation: Sinus Rhythm - Ventricular rate is 84 and the EKG is normal. WA interval normal, QRS duration normal and axis is normal. - Medical Decision Making Patient with chest pressure subxiphoid epigastric area. This may represent GERD, gastritis, esophagitis, coronary disease. She is status post cholecystectomy. Nursing protocol was initiated. Since patient reported slight improvement with nitroglycerin she was given a nitroglycerin tablet in the department to determine if this had any effect. Otherwise will treat with GI cocktail. Troponin was obtained with 6 hours of constant pain. Case was discussed Dr. Charlie Hernandez because the stress test was not read. He recommended 3-hour troponin. He was informed that she had marked improvement with nitroglycerin. Plan if 3-hour troponin normal to discharge to home and follow-up with Dr. Quesada next week she has had multiple recent admissions for chest pain with no cardiac etiology determined. This may represent GI since she vomited 5 times. ED Disposition - Plan for ED Patient: Disposition: Home or Assisted Living Diagnosis: Midsternal chest pain, History of coronary artery disease, History of diabetes mellitus, type II, History of hypercholesterolemia, History of hypertension, NSTEMI (non-ST elevated myocardial infarction), Nausea and vomiting Instructions: ED Chest Pain Atypical Unkn Cause, ED Nausea Vomiting Referrals: Sam Quesada MD [STAFF PHYSICIAN] - 1 Week Monster Salcedo MD [Primary Care Provider] - As Needed
[2018-12-06 16:03] LABS: Absolute Lymphocyte Count 3.55 X10^3/ul (0.83-4.51); Absolute Neutrophil Count 4.7 X10^3/uL (2.0-7.7); Basophil# 0.05 X10^3/uL; Basophil% 0.6 % (0-1); Eosinophil# 0.28 X10^3/uL; Eosinophils% 3.1 % (0-5); Hematocrit 42.2 % (37-47); Hemoglobin 14.9 g/dl (12.0-15.0); Lymphocyte # 3.55 X10^3/ul (4.0); Lymphocyte % 39.1 % (19-41); Mean Corp Hgb Conc 35.3 g/gl (32-36); Mean Corpuscular Hgb 31.5 pg (27.0-32.0); Mean Corpuscular Volume 89.2 fL (81-99); Mean Platelet Vol. 11.9 fl (6.2-12.0); Monocyte# 0.52 X10^3/uL; Monocyte% 5.7 % (0-10); Neutrophil # 4.67 X10^3/uL (2.7-7.7); Neutrophil % 51.3 % (47-70); Platelet Count 216 K/mm3 (150-450); RBC Distribution Width CV 11.8 % (11.6-14.6); RBC Distribution Width SD 37.1 fl (35.1-43.9); Red Blood Count 4.73 M/mm3 (4.2-5.4); White Blood Count 9.1 K/mm3 (4.4-11.0)
[2018-12-06 16:04] LABS: POSITIVE COUNT NO; POSITIVE DIFFERENTIAL NO; POSITIVE MORPHOLOGY NO
[2018-12-06 16:15] LABS: Anion Gap 10 (5-15); BUN 14 mg/dL (7-18); BUN/Creat Ratio 14.3 RATIO (10-20); Calcium,Total 9.5 mg/dL (8.5-10.1); Chloride 99 mmol/L (98-107); Creatinine, Serum 0.98 mg/dL (0.55-1.02); EST Glomerular Filtration Rate 61 mL/min (>60); Est Glom Filt Rate - Afr Amer 73 mL/min (>60); Estimated Creatinine Clearance 47.34 ml/min; Glucose 337 mg/dL (74-106); Potassium 3.9 mmol/L (3.5-5.1); Sodium Level 136 mmol/L (136-145)
--- NOTE | 2018-12-06 17:13 | ED.RN ---
NITRO TRIAL STARTED 1713 PILL 1 1713 130/71 BP HR 78 PAIN 9/10 NO ED MEDICATIONS TAKEN. PILL 2 1718 103/69 HR 88 PAIN 7/10 NO ED MEDICATIONS TAKEN PILL 3 1723 109/59 BP HR 91 PAIN 5/10 NO ED MEDICATIONS TAKEN
== END 2018-12-06 19:45 | disposition home or self-care (01) ==
PROVIDERS: Emergency Provider Emergency Medicine; Family Provider Family Medicine; PCP Family Medicine
DX: R07.89 Other chest pain (principal); R11.2 Nausea with vomiting, unspecified; I25.10 Atherosclerotic heart disease of native coronary artery without angina pectoris; E11.9 Type 2 diabetes mellitus without complications; E78.00 Pure hypercholesterolemia, unspecified; I10 Essential (primary) hypertension; J44.9 Chronic obstructive pulmonary disease, unspecified; I25.2 Old myocardial infarction; Z87.891 Personal history of nicotine dependence; Z86.73 Personal history of transient ischemic attack (TIA), and cerebral infarction without residual deficits; Z86.711 Personal history of pulmonary embolism; Z90.49 Acquired absence of other specified parts of digestive tract
CPT/HCPCS: 71045; 80048; 84484; 85025; 93005; 99285; A4216

== ENCOUNTER 2018-12-22 16:06 | Emergency (ER) | payer MEDICARE, SELFPAY ==
[2017-03-16 08:30] VITALS: BMI 29.2
[2018-12-06 15:24] VITALS: BMI 26.4
[2018-12-22 16:06] VITALS: BP 138/68; PULSE 95; RESP 16; TEMP 36.8; O2SAT 96; BMI 25.7
--- NOTE | 2018-12-22 16:21 | CT_ITS ---
STUDY: CT ABDOMEN AND PELVIS WITHOUT CONTRAST REASON FOR EXAM: Female, 63 years old. Abdominal pain. RADIATION DOSAGE (If Supplied By Facility): CTDIvol = ( 6.59 ) mGy, DLP = ( 306.14 ) mGycm TECHNIQUE: Transaxial images were obtained from the dome of the diaphragm to the symphysis pubis without oral contrast, and without intravenous contrast. Sagittal and coronal images were reconstructed. Individualized dose optimization techniques were used for this CT. COMPARISON: November 24, 2017 FINDINGS: The visualized lung bases are unremarkable. The visualized portions of the heart are within normal limits. Please note the lack of intravenous contrast limits evaluation of solid visceral organs. There is decreased attenuation of the liver consistent with steatosis. There is associated hepatomegaly. There is a stable calcification within the dome of the right hepatic lobe. There is non-visualization of the gallbladder, which may be secondary to either contraction or a prior cholecystectomy. Normal spleen. Normal pancreas. Normal bilateral adrenal glands. Normal right kidney. Normal left kidney. Normal visualized stomach. Normal small intestine. Normal colon. The appendix is visualized and appears normal. There is diffuse atherosclerotic calcification of the abdominal aorta, without a demonstrated aneurysm. Normal inferior vena cava. Normal retroperitoneum. Normal urinary bladder. Normal abdominal wall. There are diffuse degenerative changes of the visualized lumbar spine. CT/Abdomen/Pelvis without Cont IMPRESSION: Fatty liver associated with hepatomegaly. Atherosclerosis. Electronically Signed: Savannah Boyd MD at 17:18 EDT Tel , Service support ,
--- NOTE | 2018-12-22 16:21 | EKG12_ITS ---
Test Reason : ABDOMINAL PAIN Blood Pressure : / mmHG Vent. Rate : 083 BPM Atrial Rate : 083 BPM P-R Int : 146 ms QRS Dur : 082 ms QT Int : 400 ms P-R-T Axes : 055 039 039 degrees QTc Int : 470 ms Normal sinus rhythm Normal ECG Confirmed by BRIT CROWE ([id number]), film editor supervisor ALEX EASTON ([id number]) on 12/25/2018 4:36:24 PM Referred By: KELLY Confirmed By:BRIT CROWE
--- NOTE | 2018-12-22 16:22 | ED.VISSUMM ---
- ER Visit Summary Date of Service: 12/22/18 Chief Complaint: Abdominal pain History of Present Illness: The patient is a 63 F who presents with abdominal pain that is been constant for the past 2 weeks. Patient states the pain is over the upper abdomen and worse over the epigastric area. Patient states that her primary care physician recently started her on Zantac 150 mg with no improvement. Patient denies any nausea or vomiting. Patient denies any diarrhea, melena, or hematochezia. Patient denies any fevers or chills. Patient denies any chest pain or shortness of breath. Patient denies any radiation of the pain into her back. Physical Examination: Vital signs are stable. Patient is afebrile. Patient is in no acute distress. Oral mucosa is pink and moist. Neck is supple. There is no JVD noted. Heart was regular rate and rhythm. Lungs are clear and equal bilateral. There is good respiratory effort noted. Abdomen is soft. There is upper abdominal tenderness. There is no rebound or guarding noted. Cranial nerves II through XII are intact. There are no focal motor or sensory deficits noted. The remaining physical exam is within normal limits. Test Results: EKG showed a normal sinus rhythm with a rate of 83. There are no acute ST or T wave changes. There are no acute changes compared to previous EKG dated 12/06/2018. CT scan of the abdomen and pelvis was obtained. There is a fatty liver but no acute process. CBC was normal. Comprehensive metabolic profile showed an elevated glucose of 385. Anion gap is normal. Electrolytes are normal. Urinalysis does not show any evidence of urinary tract infection. Troponin was normal. Emergency Department Course and Treatment: Patient was given a dose of Humalog here. Patient was instructed to follow-up with her primary care physician in 5-7 days. Patient was given a prescription for Prilosec to take instead of the Zantac. Patient understood and was agreeable with the plan. All questions were answered. Disposition: Discharge home Impression: Epigastric abdominal pain This note was generated with [employer] dictation software. It may contain incorrect words, spelling, and punctuation that were not noted in review of the chart prior to signing ED Disposition - Plan for ED Patient: Disposition: Home or Assisted Living Diagnosis: Epigastric abdominal pain Instructions: ED Abdominal Pain Unkn Cause Prescriptions: Omeprazole [Prilosec] 20 mg PO DAILY #30 cap Referrals: Monster Salcedo MD [Primary Care Provider] - 5-7 Days
[2018-12-22 16:55] LABS: Mucous, Urine 0 SEEN /hpf (<or=2+); Red Blood Cells-Urine 0 SEEN /hpf (0-5)
[2018-12-22 17:01] LABS: Color, Urine Yellow (Yellow); Glucose, Dipstick 1000 mg/dl (Normal); Ketone-Dipstick Negative (Negative); Leukocyte Esterase-Dipstick 25 /ul (Negative); Nitrite-Dipstick Negative (Negative); Occult Blood-Urine Negative /ul (Negative); Protein-Dipstick Negative (Negative); Urine Bilirubin Dipstick Negative (Negative); Urine Clarity Clear (Clear); Urine Urobilinogen Normal (Normal); Urine pH 6.5 (5.0 - 8.0)
[2018-12-22 17:03] LABS: Absolute Lymphocyte Count 2.35 X10^3/ul (0.83-4.51); Absolute Neutrophil Count 4.5 X10^3/uL (2.0-7.7); Basophil# 0.04 X10^3/uL; Basophil% 0.5 % (0-1); Eosinophil# 0.32 X10^3/uL; Eosinophils% 4.1 % (0-5); Hematocrit 39.1 % (37-47); Hemoglobin 13.3 g/dl (12.0-15.0); Lymphocyte # 2.35 X10^3/ul (4.0); Lymphocyte % 30.4 % (19-41); Mean Corpuscular Hgb 30.2 pg (27.0-32.0); Mean Corpuscular Volume 88.7 fL (81-99); Mean Platelet Vol. 11.5 fl (6.2-12.0); Monocyte# 0.53 X10^3/uL; Monocyte% 6.9 % (0-10); Neutrophil # 4.46 X10^3/uL (2.7-7.7); Neutrophil % 57.8 % (47-70); Platelet Count 217 K/mm3 (150-450); RBC Distribution Width CV 12.3 % (11.6-14.6); RBC Distribution Width SD 39.1 fl (35.1-43.9); Red Blood Count 4.41 M/mm3 (4.2-5.4); White Blood Count 7.7 K/mm3 (4.4-11.0)
[2018-12-22 17:06] LABS: POSITIVE COUNT NO; POSITIVE DIFFERENTIAL NO; POSITIVE MORPHOLOGY NO
[2018-12-22 17:14] LABS: Bacteria 1+ /hpf (None Seen); Squamous Epithelial Cells - UA 0-5 SEEN /hpf (5-10); White Blood Cells 0-5 SEEN /hpf (0-5)
[2018-12-22 17:17] LABS: ALB/GLOB Ratio 1.2 RATIO (0.9-2.4); AST(SGOT) 14 U/L (15-37); Alanine Aminotransfer ALT/SGPT 27 U/L (13-56); Albumin, Serum 3.9 g/dL (3.2-5.0); Alkaline Phosphatase 79 U/L (45-117); Anion Gap 8 (5-15); BUN 13 mg/dL (7-18); BUN/Creat Ratio 12.3 RATIO (10-20); Calcium,Total 9.4 mg/dL (8.5-10.1); Chloride 102 mmol/L (98-107); Creatinine, Serum 1.06 mg/dL (0.55-1.02); EST Glomerular Filtration Rate 55 mL/min (>60); Est Glom Filt Rate - Afr Amer 67 mL/min (>60); Estimated Creatinine Clearance 43.77 ml/min; Globulin 3.3 g/dL (2.2-4.2); Glucose 385 mg/dL (74-106); Lipase 174 U/L (73-393); Potassium 3.7 mmol/L (3.5-5.1); Protein, Total 7.2 g/dL (6.4-8.2); Sodium Level 138 mmol/L (136-145)
[2018-12-22 18:06] VITALS: RESP 12
[2018-12-22] MEDS: Insulin Lispro 100 UNIT/ML INSULN.PEN 10 UNIT SC (20:12)
[2018-12-22 20:13] VITALS: BP 141/69; PULSE 75; RESP 16
== END 2018-12-22 20:14 | disposition home or self-care (01) ==
PROVIDERS: Emergency Provider Emergency Medicine; Family Provider Family Medicine; PCP Family Medicine
DX: R10.13 Epigastric pain (principal); E11.65 Type 2 diabetes mellitus with hyperglycemia; K76.0 Fatty (change of) liver, not elsewhere classified; I10 Essential (primary) hypertension; E78.00 Pure hypercholesterolemia, unspecified; I25.10 Atherosclerotic heart disease of native coronary artery without angina pectoris; Z79.4 Long term (current) use of insulin; F31.9 Bipolar disorder, unspecified
CPT/HCPCS: 74176; 80053; 81001; 83690; 84484; 85025; 93005; 99283; A4216

== ENCOUNTER 2019-01-01 10:26 | Inpatient (IN) | payer MEDICARE, SELFPAY ==
[2017-03-16 08:30] VITALS: BMI 29.2
[2019-01-01] VITALS (15 sets, daily range): BP systolic 100–143; BP diastolic 52–73; PULSE 78–92; RESP 13–18; TEMP 36.1–37.2; O2SAT 96–100; BMI 28.2; BMI 25.4; BMI 25.5
--- NOTE | 2019-01-01 10:35 | CT_ITS ---
We are attempting to reach Cezar Lee MD to discuss findings. An addendum with communication details will be sent when the communication is complete. STUDY: CTA NECK WITH CONTRAST REASON FOR EXAM: Female, 63 years old. Stroke protocol. RADIATION DOSAGE (If Supplied By Facility): CTDIvol = ( ) mGy, DLP = ( ) mGycm TECHNIQUE: CT angiography with multi-detector data acquisition was performed from the aortic arch to the skull base following intravenous administration of Isovue 370 100 ML IV. MIP images were reconstructed from the axial data set. Post-processing of the angiographic images was performed, with multiplanar reformation and 3D reconstruction. Individualized dose optimization techniques were used for this CT. COMPARISON: MRA of the neck, March 16, 2017. FINDINGS: AORTIC ARCH: There are minimal atherosclerotic changes of the thoracic arch. Normal origins of the brachiocephalic, left common carotid, and left subclavian arteries. RIGHT CAROTID ARTERIES: Normal right common carotid artery (CCA). There is minimal focal calcific plaque in the carotid bulb without stenosis. Normal origin of the right internal carotid (ICA) artery without a hemodynamically significant stenosis. Normal visualized cervical portion of the right internal carotid artery. Normal origin of the right external carotid artery (ECA). LEFT CAROTID ARTERIES: There is focal significant narrowing of the proximal left common carotid artery (CCA) approximate 40% narrowing.. Large calcific plaque in the posterior aspect of the left carotid bulb with less than 50% stenosis. Normal origin of the left internal carotid (ICA) artery without a hemodynamically significant stenosis. Normal visualized cervical portion of the left internal carotid artery. Normal origin of the left external carotid artery (ECA). VERTEBRAL ARTERIES: Normal bilateral vertebral arteries. CT/CTA Neck W/WO Contrast IMPRESSION: 1. Bilateral hemodynamically insignificant carotid stenoses by NASCET criteria. 2. Approximate 40% stenosis of the proximal left common carotid artery. 3. Normal vertebral arteries. Electronically Signed: Nico Qiu DO at 11:23 EDT Tel [phone], Service support ,
--- NOTE | 2019-01-01 10:35 | CT_ITS ---
We are attempting to reach Cezar Lee MD to discuss findings. An addendum with communication details will be sent when the communication is complete. STUDY: CT BRAIN WITH AND WITHOUT CONTRAST REASON FOR EXAM: Female, 63 years old. History of stroke. RADIATION DOSAGE (If Supplied By Facility): CTDIvol = ( 17.50 ) mGy, DLP = ( 672.03 ) mGycm TECHNIQUE: Transaxial CT imaging of the brain was performed pre and post contrast administration. The examination was performed with intravenous administration of Isovue 370 100ml IV. Individualized dose optimization techniques were used for this CT. COMPARISON: None. FINDINGS: Normal soft tissue structures. Normal calvarium. Normal size ventricles and extra-axial spaces for the patient's age. Normal white matter tracts of the cerebral hemispheres. There are small punctate calcifications of the basal ganglia which are seen in the aging brain as a normal variant. Normal brainstem. Normal cerebellum. There is no intracranial hemorrhage. There are no findings of an acute ischemic infarction. Normal visualized paranasal sinuses. CT/CTA Head W/WO Contrast IMPRESSION: Normal unenhanced and enhanced CT scan of the brain. Electronically Signed: Uriah Weathers, at 11:23 EDT , Service support ,
--- NOTE | 2019-01-01 10:36 | EKG12_ITS ---
Test Reason : STROKE TEAM Blood Pressure : / mmHG Vent. Rate : 079 BPM Atrial Rate : 079 BPM P-R Int : 142 ms QRS Dur : 082 ms QT Int : 404 ms P-R-T Axes : 061 038 044 degrees QTc Int : 463 ms Normal sinus rhythm Normal ECG Confirmed by HENRY BARFIELD, DAYANA ([id number]), newspaper managing editor TAQUERIA CHAMBERLAIN ([id number]) on 01/03/2019 1:46:51 PM Referred By: Buck Naylor Confirmed By:DAYANA FIGUEROA MD
--- NOTE | 2019-01-01 10:36 | CT_ITS ---
STUDY: CT BRAIN WITHOUT CONTRAST REASON FOR EXAM: Female, 63 years old. Stroke protocol. No signs and symptoms were provided. RADIATION DOSAGE (If Supplied By Facility): CTDIvol = ( 18.19 ) mGy, DLP = ( 663.73 ) mGycm TECHNIQUE: Transaxial CT imaging of the brain was performed without administration of intravenous contrast material. Individualized dose optimization techniques were used for this CT. COMPARISON: 10/05/2028. FINDINGS: Normal soft tissue structures. Normal calvarium. Normal size ventricles and extra-axial spaces for the patient's age. Normal white matter tracts of the cerebral hemispheres. Normal basal ganglia and thalami. Normal brainstem. Normal cerebellum. There is no intracranial hemorrhage. There are no findings of an acute ischemic infarction. Normal visualized paranasal sinuses. CT/Brain/Head without Contrast IMPRESSION: 1. No CT evidence of intracranial bleeding, acute ischemic infarct or acute intracranial abnormality at this time. 2. No interval changes when compared to 10/05/2018. N.B. : The above information has been verbally conveyed by Baldo Millan MD to Dr. Saige MD, on 01/01/2019 11:21:26 (ET). Electronically Signed: Baldo Millan MD at 11:21 EDT , Service support ,
--- NOTE | 2019-01-01 10:36 | RAD_ITS ---
STUDY: X-RAY CHEST REASON FOR EXAM: Female, 63 years old. Stroke like symptoms. TECHNIQUE: Single AP portable view of the chest. COMPARISON: Comparison is made with prior examination dated December 06, 2018. FINDINGS: EKG electrodes are seen. Scattered calcified granulomas. There is no demonstrated pleural abnormality. Normal size heart. Coronary artery stenting. Normal mediastinum and jovan. Normal visualized pulmonary arteries. There is atherosclerotic calcification of the aortic arch with tortuosity. Normal visualized thoracic spine. Normal visualized ribs, clavicles, and shoulders. There is no demonstrated abnormality of the visualized soft tissue structures of the upper abdomen. RAD/Chest 1 View IMPRESSION: No acute abnormality seen. Electronically Signed: Uriah Weathers, at 11:31 EDT , Service support ,
--- NOTE | 2019-01-01 10:38 | RAD_ITS ---
STUDY: X-RAY - LEFT HIP REASON FOR EXAM: Female, 63 years old. Left hip pain. TECHNIQUE: 2 views of the hip. COMPARISON: None. FINDINGS: Normal femoral head, neck, intertrochanteric region and visualized proximal femur. Normal acetabulum. Normal hip joint. Normal visualized superior and inferior pubic rami and ischial tuberosities. Contrast is seen within the urinary bladder secondary to IV contrast injection. RAD/Hip Min 2 Views (Portable) IMPRESSION: Normal x-ray examination of the hip. Electronically Signed: Uriah Weathers, at 11:34 EDT , Service support ,
--- NOTE | 2019-01-01 10:38 | ED.VIS.GEN ---
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 It sounds like this was more stuttering than anything. Patient states he felt weak all over this morning, try to get out of bed and as a result, fell to hardwood floor against her left hip and hit very hard. She has no chest pain, abdominal pain, headache, nausea, vomiting. She has a mild nonproductive cough. She has insulin dependent diabetes and has not taken her insulin yet this morning. She was last seen normal by others that she lives with last night before going to bed. Prehospital blood sugar was over 500. - Past Medical History (1) Benign essential hypertension Status: Chronic (2) COPD (chronic obstructive pulmonary disease) Status: Chronic Comment: cont smoking (3) Coronary artery disease Status: Chronic Comment: ROMEL LAD 01/21 (4) GERD (gastroesophageal reflux disease) Status: Chronic (5) Hyperlipidemia Status: Chronic (6) Uncontrolled type 2 diabetes mellitus Status: Chronic (7) CVA (cerebral vascular accident) Status: Chronic Past Medical History - Allergies and Home Meds Allergies/Adverse Reactions: Allergies Penicillins Allergy (Verified 01/01/19 11:01) Hives morphine Adverse Reaction (Mild, Verified 01/01/19 11:01) Itching hydrocodone bitartrate [From Vicodin] Adverse Reaction (Verified 01/01/19 11:01) Vomiting ibuprofen Adverse Reaction (Verified 01/01/19 11:01) Vomiting Primary Care Physician: Monster Salcedo MD [Primary Care Provider] - Surgical History: angioplasty, appendectomy, cholecystectomy, hysterectomy, - Lives: With Family Smoking Status: Former smoker Drugs: None - Family History Maternal Family History: Reports: Cancer - Uterine cancer, Diabetes, Heart Disease Paternal Family History: Reports: Heart Disease Sibling Family History: Reports: Diabetes, Heart Disease, Hypertension Review of Systems General: Denies: Chills, Fever, Sweats Eyes: Denies: Visual changes - bilaterally, Diplopia ENT: Denies: Rhinorrhea, Sore throat Cardiovascular: Denies: Chest pain, Palpitations Respiratory: Reports: Cough. Denies: Dyspnea, Dyspnea on exertion Gastrointestinal: Denies: Abdominal pain, Nausea, Vomiting, Diarrhea, Melena, Hematochezia Genitourinary: Denies: Dysuria, Hematuria, Frequency Musculoskeletal: Reports: Extremity Pain - left hip. Denies: Neck pain, Back pain Skin: Denies: Rash, Wounds Neurological: Reports: Weakness - all over. Denies: Headache, Numbness Physical Exam Vital Signs/Narrative: Vital Signs Temp Pulse Resp BP Pulse Ox 01/01/19 10:27 98.2 F 91 16 143/71 H 99 Inital Vital Signs reviewed: Yes General: Well nourished, Well developed, No Acute Distress Head: Normocephalic, Atraumatic Eyes: Perrl, EOMI ENT: Moist mucous membranes, No rhinorrhea Neck: Supple, Nontender Cardiovascular: Regular rate, Regular rhythm, No murmurs Respiratory: No distress, CTA bilaterally, Chest nontender, Diminished - throughout, symmetrically Abdomen: Soft, Nontender, Nondistended, Normal bowel sounds Back: Nontender, Normal Inspection Extremities: No edema, Tenderness - left greater trochanter. groin pain w/ gentle int/ext rotation. all other joints NT, FROM. Skin: Normal color, No rash, No Trauma Neurological: Cranial nerves II-XII grossly intact, Lethargic - but maintains alertness w/ verbal stim., - - normal speech. no aphasia. wrong month, correct age, oriented to person/place. +Hemineglect of left side to mild degree. GCS 14. NIHSS - 5.. Negative for: Normal Strength - drift LUE and LLE, Normal Sensation - decreased but intact left side, Left side facial droop, Right side facial droop Diagnostic/Tx/Re-eval Impressions Head CTA 01/01/19 10:35 IMPRESSION: Normal unenhanced and enhanced CT scan of the brain. Electronically Signed: Uriah Weathers, at 11:23 EDT , Service support , ADDENDUM: 01/01/19 1131 IMPRESSION: Normal unenhanced and enhanced CT scan of the brain. N.B. : The above information has been verbally conveyed by Uriah Weathers to Cezar Lee on 01/01/2019 11:24:30 (ET). Electronically Signed: Uriah Castettaellis, at 11:23 EDT , Service support , Neck CTA 01/01/19 10:35 IMPRESSION: 1. Bilateral hemodynamically insignificant carotid stenoses by NASCET criteria. 2. Approximate 40% stenosis of the proximal left common carotid artery. 3. Normal vertebral arteries. Electronically Signed: Nico Qiu DO at 11:23 EDT Tel [phone], Service support , ADDENDUM: 01/01/19 1133 IMPRESSION: 1. Bilateral hemodynamically insignificant carotid stenoses by NASCET criteria. 2. Approximate 40% stenosis of the proximal left common carotid artery. 3. Normal vertebral arteries. N.B. : The above information has been verbally conveyed by Nico Qiu DO to Parker Aldana MD, on 01/01/2019 11:26:43 (ET). Electronically Signed: Nico Qiu DO at 11:23 EDT Tel [phone], Service support , Brain CT 01/01/19 10:36 IMPRESSION: 1. No CT evidence of intracranial bleeding, acute ischemic infarct or acute intracranial abnormality at this time. 2. No interval changes when compared to 10/05/2018. N.B. : The above information has been verbally conveyed by Baldo Millan MD to Dr. Saige MD, on 01/01/2019 11:21:26 (ET). Electronically Signed: Baldo Millan MD at 11:21 EDT , Service support , ADDENDUM: 01/01/19 1128 IMPRESSION: 1. No CT evidence of intracranial bleeding, acute ischemic infarct or acute intracranial abnormality at this time. 2. No interval changes when compared to 10/05/2018. N.B. : The above information has been verbally conveyed by Baldo Millan MD to Dr. Saige MD, on 01/01/2019 11:21:26 (ET). Electronically Signed: Baldo Millan MD at 11:21 EDT , Service support , Chest X-Ray 01/01/19 10:36 IMPRESSION: No acute abnormality seen. Electronically Signed: Uriah Summersshaun, at 11:31 EDT , Service support , Hip X-Ray 01/01/19 10:38 IMPRESSION: Normal x-ray examination of the hip. Electronically Signed: Uriah Sarahy, at 11:34 EDT , Service support , 01/01/19 10:35 CTA Head W/WO Contrast [CT] Stat CTA Neck W/WO Contrast [CT] Stat 01/01/19 10:36 Brain/Head without Contrast [CT] Stat Chest 1 View [RAD] Stat 01/01/19 10:38 Hip Min 2 Views (Portable) [RAD] Stat Laboratory Results 01/01/19 01/01/19 01/01/19 10:35 10:35 10:35 WBC 12.8 H RBC 3.90 L Hgb 12.2 Hct 34.7 L MCV 89.0 MCH 31.3 MCHC 35.2 RDW 12.6 RDW Differential 40.0 Plt Count 224 MPV 10.8 Immature Gran % (Auto) 0.200 Neut % (Auto) 75.1 H Lymph % (Auto) 16.6 L [place] % (Auto) 7.2 Eos % (Auto) 0.7 Baso % (Auto) 0.2 Absolute Neuts (auto) 9.6 H Absolute Lymphs (auto) 2.12 Total Counted Not Reportable PT 12.4 INR 0.9 APTT 25.2 Sodium 133 L Potassium 4.5 Chloride 101 Carbon Dioxide 23.0 Anion Gap 9 BUN 12 Creatinine 0.82 Estim Creat Clear Calc 56.58 Est GFR (MDRD) Af Amer 91 Est GFR (MDRD) Non-Af 75 BUN/Creatinine Ratio 14.7 Glucose 450 H Calcium 9.2 Troponin I < 0.015 POC Glucose 01/01/19 10:36 WBC RBC Hgb Hct MCV MCH MCHC RDW RDW Differential Plt Count MPV Immature Gran % (Auto) Neut % (Auto) Lymph % (Auto) [place] % (Auto) Eos % (Auto) Baso % (Auto) Absolute Neuts (auto) Absolute Lymphs (auto) Total Counted PT INR APTT Sodium Potassium Chloride Carbon Dioxide Anion Gap BUN Creatinine Estim Creat Clear Calc Est GFR (MDRD) Af Amer Est GFR (MDRD) Non-Af BUN/Creatinine Ratio Glucose Calcium Troponin I POC Glucose 453 H* - Rhythm Strip Rhythm Strip: Sinus Rhythm Rate: 80 Ectopy: None - EKG Initial EKG Interpretation: Sinus Rhythm, No Acute Injury Pattern - nml EKG - Medical Decision Making Neurology at bedside with me during initial evaluation. Patient immediately sent to CT, with CT angiography done immediately afterwards if no hemorrhage on plain CT. Patient is not an IV TPA candidate given that if this is ischemic stroke, it is a wake-up stroke, and that she was last seen normal over 12 hours ago. Her left lower extremity may be weak because of pain in her left hip, x-rays ordered. CT shows nothing acute. CT angiography shows no large vessel occlusion. Discussed with neurology Dr. Miller. IV tPA not indicated due to timing and prior CVA. Given no LVO, not a candidate for thrombectomy. He states patient is stable for admission here and does not need to be transferred to a comprehensive stroke center. Her blood sugars around 500, now in the 450s. Insulin is given. The rest of her workup is unremarkable, she clinically is improved with NIHs of zero and 1, for occasional weakness of left leg. Hip x-rays are negative, and at one point she lifted her entire leg up by herself to show the nurse something on her foot. Will discuss with hospitalist for observation and further evaluation. ED Disposition - Plan for ED Patient: Disposition: Acute Care Hospital [facility] Diagnosis: TIA (transient ischemic attack), Contusion of hip, left, Hyperglycemia due to type 2 diabetes mellitus Referrals: Monster Salcedo MD [Primary Care Provider] -
--- NOTE | 2019-01-01 10:43 | ED.DCSUM_ITS ---
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 It sounds like this was more stuttering than anything. Patient states he felt weak all over this morning, try to get out of bed and as a result, fell to hardwood floor against her left hip and hit very hard. She has no chest pain, abdominal pain, headache, nausea, vomiting. She has a mild nonproductive cough. She has insulin dependent diabetes and has not taken her insulin yet this morning. She was last seen normal by others that she lives with last night before going to bed. Prehospital blood sugar was over 500. - Past Medical History (1) Benign essential hypertension Status: Chronic (2) COPD (chronic obstructive pulmonary disease) Status: Chronic Comment: cont smoking (3) Coronary artery disease Status: Chronic Comment: ROMEL LAD 01/21 (4) GERD (gastroesophageal reflux disease) Status: Chronic (5) Hyperlipidemia Status: Chronic (6) Uncontrolled type 2 diabetes mellitus Status: Chronic (7) CVA (cerebral vascular accident) Status: Chronic Past Medical History - Allergies and Home Meds Allergies/Adverse Reactions: Allergies Penicillins Allergy (Verified 01/01/19 11:01) Hives morphine Adverse Reaction (Mild, Verified 01/01/19 11:01) Itching hydrocodone bitartrate [From Vicodin] Adverse Reaction (Verified 01/01/19 11:01) Vomiting ibuprofen Adverse Reaction (Verified 01/01/19 11:01) Vomiting Primary Care Physician: Monster Salcedo MD [Primary Care Provider] - Surgical History: angioplasty, appendectomy, cholecystectomy, hysterectomy, - Lives: With Family Smoking Status: Former smoker Drugs: None - Family History Maternal Family History: Reports: Cancer - Uterine cancer, Diabetes, Heart Disease Paternal Family History: Reports: Heart Disease Sibling Family History: Reports: Diabetes, Heart Disease, Hypertension Review of Systems General: Denies: Chills, Fever, Sweats Eyes: Denies: Visual changes - bilaterally, Diplopia ENT: Denies: Rhinorrhea, Sore throat Cardiovascular: Denies: Chest pain, Palpitations Respiratory: Reports: Cough. Denies: Dyspnea, Dyspnea on exertion Gastrointestinal: Denies: Abdominal pain, Nausea, Vomiting, Diarrhea, Melena, Hematochezia Genitourinary: Denies: Dysuria, Hematuria, Frequency Musculoskeletal: Reports: Extremity Pain - left hip. Denies: Neck pain, Back pain Skin: Denies: Rash, Wounds Neurological: Reports: Weakness - all over. Denies: Headache, Numbness Physical Exam Vital Signs/Narrative: Vital Signs Temp Pulse Resp BP Pulse Ox 01/01/19 10:27 98.2 F 91 16 143/71 H 99 Inital Vital Signs reviewed: Yes General: Well nourished, Well developed, No Acute Distress Head: Normocephalic, Atraumatic Eyes: Perrl, EOMI ENT: Moist mucous membranes, No rhinorrhea Neck: Supple, Nontender Cardiovascular: Regular rate, Regular rhythm, No murmurs Respiratory: No distress, CTA bilaterally, Chest nontender, Diminished - throughout, symmetrically Abdomen: Soft, Nontender, Nondistended, Normal bowel sounds Back: Nontender, Normal Inspection Extremities: No edema, Tenderness - left greater trochanter. groin pain w/ gentle int/ext rotation. all other joints NT, FROM. Skin: Normal color, No rash, No Trauma Neurological: Cranial nerves II-XII grossly intact, Lethargic - but maintains alertness w/ verbal stim., - - normal speech. no aphasia. wrong month, correct age, oriented to person/place. +Hemineglect of left side to mild degree. GCS 14. NIHSS - 5.. Negative for: Normal Strength - drift LUE and LLE, Normal Sensation - decreased but intact left side, Left side facial droop, Right side facial droop Diagnostic/Tx/Re-eval Impressions Head CTA 01/01/19 10:35 IMPRESSION: Normal unenhanced and enhanced CT scan of the brain. Electronically Signed: Uriah Weathers, at 11:23 EDT , Service support , ADDENDUM: 01/01/19 1131 IMPRESSION: Normal unenhanced and enhanced CT scan of the brain. N.B. : The above information has been verbally conveyed by Uriah Weathers to Cezar Lee on 01/01/2019 11:24:30 (ET). Electronically Signed: Uriah Castettaellis, at 11:23 EDT , Service support , Neck CTA 01/01/19 10:35 IMPRESSION: 1. Bilateral hemodynamically insignificant carotid stenoses by NASCET criteria. 2. Approximate 40% stenosis of the proximal left common carotid artery. 3. Normal vertebral arteries. Electronically Signed: Nico Qiu DO at 11:23 EDT Tel [phone], Service support , ADDENDUM: 01/01/19 1133 IMPRESSION: 1. Bilateral hemodynamically insignificant carotid stenoses by NASCET criteria. 2. Approximate 40% stenosis of the proximal left common carotid artery. 3. Normal vertebral arteries. N.B. : The above information has been verbally conveyed by Nico Qiu DO to Parker Aldana MD, on 01/01/2019 11:26:43 (ET). Electronically Signed: Nico Qiu DO at 11:23 EDT Tel [phone], Service support , Brain CT 01/01/19 10:36 IMPRESSION: 1. No CT evidence of intracranial bleeding, acute ischemic infarct or acute intracranial abnormality at this time. 2. No interval changes when compared to 10/05/2018. N.B. : The above information has been verbally conveyed by Baldo Millan MD to Dr. Saige MD, on 01/01/2019 11:21:26 (ET). Electronically Signed: Baldo Millan MD at 11:21 EDT , Service support , ADDENDUM: 01/01/19 1128 IMPRESSION: 1. No CT evidence of intracranial bleeding, acute ischemic infarct or acute intracranial abnormality at this time. 2. No interval changes when compared to 10/05/2018. N.B. : The above information has been verbally conveyed by Baldo Millan MD to Dr. Saige MD, on 01/01/2019 11:21:26 (ET). Electronically Signed: Baldo Millan MD at 11:21 EDT , Service support , Chest X-Ray 01/01/19 10:36 IMPRESSION: No acute abnormality seen. Electronically Signed: Uriah Summersshaun, at 11:31 EDT , Service support , Hip X-Ray 01/01/19 10:38 IMPRESSION: Normal x-ray examination of the hip. Electronically Signed: Uriah Sarahy, at 11:34 EDT , Service support , 01/01/19 10:35 CTA Head W/WO Contrast [CT] Stat CTA Neck W/WO Contrast [CT] Stat 01/01/19 10:36 Brain/Head without Contrast [CT] Stat Chest 1 View [RAD] Stat 01/01/19 10:38 Hip Min 2 Views (Portable) [RAD] Stat Laboratory Results 01/01/19 01/01/19 01/01/19 10:35 10:35 10:35 WBC 12.8 H RBC 3.90 L Hgb 12.2 Hct 34.7 L MCV 89.0 MCH 31.3 MCHC 35.2 RDW 12.6 RDW Differential 40.0 Plt Count 224 MPV 10.8 Immature Gran % (Auto) 0.200 Neut % (Auto) 75.1 H Lymph % (Auto) 16.6 L [place] % (Auto) 7.2 Eos % (Auto) 0.7 Baso % (Auto) 0.2 Absolute Neuts (auto) 9.6 H Absolute Lymphs (auto) 2.12 Total Counted Not Reportable PT 12.4 INR 0.9 APTT 25.2 Sodium 133 L Potassium 4.5 Chloride 101 Carbon Dioxide 23.0 Anion Gap 9 BUN 12 Creatinine 0.82 Estim Creat Clear Calc 56.58 Est GFR (MDRD) Af Amer 91 Est GFR (MDRD) Non-Af 75 BUN/Creatinine Ratio 14.7 Glucose 450 H Calcium 9.2 Troponin I < 0.015 POC Glucose 01/01/19 10:36 WBC RBC Hgb Hct MCV MCH MCHC RDW RDW Differential Plt Count MPV Immature Gran % (Auto) Neut % (Auto) Lymph % (Auto) [place] % (Auto) Eos % (Auto) Baso % (Auto) Absolute Neuts (auto) Absolute Lymphs (auto) Total Counted PT INR APTT Sodium Potassium Chloride Carbon Dioxide Anion Gap BUN Creatinine Estim Creat Clear Calc Est GFR (MDRD) Af Amer Est GFR (MDRD) Non-Af BUN/Creatinine Ratio Glucose Calcium Troponin I POC Glucose 453 H* - Rhythm Strip Rhythm Strip: Sinus Rhythm Rate: 80 Ectopy: None - EKG Initial EKG Interpretation: Sinus Rhythm, No Acute Injury Pattern - nml EKG - Medical Decision Making Neurology at bedside with me during initial evaluation. Patient immediately sent to CT, with CT angiography done immediately afterwards if no hemorrhage on plain CT. Patient is not an IV TPA candidate given that if this is ischemic stroke, it is a wake-up stroke, and that she was last seen normal over 12 hours ago. Her left lower extremity may be weak because of pain in her left hip, x- rays ordered. CT shows nothing acute. CT angiography shows no large vessel occlusion. Discussed with neurology Dr. Miller. IV tPA not indicated due to timing and prior CVA. Given no LVO, not a candidate for thrombectomy. He states patient is stable for admission here and does not need [facility]. Her blood sugars around 500, now in the 450s. Insulin is given. The rest of her workup is unremarkable, she clinically is improved with NIHs of zero and 1, for occasional weakness of left leg. Hip x-rays are negative, and at one point she lifted her entire leg up by herself to show the nurse something on her foot. Will discuss with hospitalist for observation and further evaluation. ED Disposition - Plan for ED Patient: Disposition: Acute Care Hospital [facility] Diagnosis: TIA (transient ischemic attack), Contusion of hip, left, Hyperglycemia due to type 2 diabetes mellitus Referrals: Monster Salcedo MD [Primary Care Provider] -
[2019-01-01 10:50] LABS: Absolute Lymphocyte Count 2.12 X10^3/ul (0.83-4.51); Absolute Neutrophil Count 9.6 X10^3/uL (2.0-7.7); Basophil# 0.02 X10^3/uL; Basophil% 0.2 % (0-1); Eosinophil# 0.09 X10^3/uL; Eosinophils% 0.7 % (0-5); Hematocrit 34.7 % (37-47); Hemoglobin 12.2 g/dl (12.0-15.0); Lymphocyte # 2.12 X10^3/ul (4.0); Lymphocyte % 16.6 % (19-41); Mean Corp Hgb Conc 35.2 g/gl (32-36); Mean Corpuscular Hgb 31.3 pg (27.0-32.0); Mean Platelet Vol. 10.8 fl (6.2-12.0); Monocyte# 0.92 X10^3/uL; Monocyte% 7.2 % (0-10); Neutrophil # 9.59 X10^3/uL (2.7-7.7); Neutrophil % 75.1 % (47-70); Platelet Count 224 K/mm3 (150-450); RBC Distribution Width CV 12.6 % (11.6-14.6); White Blood Count 12.8 K/mm3 (4.4-11.0)
[2019-01-01 10:54] LABS: International Normalized Ratio 0.9; POSITIVE COUNT NO; POSITIVE DIFFERENTIAL NO; Prothrombin Time (Protime)PT. 12.4 SECONDS (11.7-14.9)
[2019-01-01 10:55] LABS: POSITIVE MORPHOLOGY NO; Partial Thromboplast Time 25.2 Seconds (24.1-36.2)
[2019-01-01 11:00] LABS: Bedside Glucose 453 mg/dL (70-110)
[2019-01-01 11:05] LABS: Anion Gap 9 (5-15); BUN 12 mg/dL (7-18); BUN/Creat Ratio 14.7 RATIO (10-20); Calcium,Total 9.2 mg/dL (8.5-10.1); Chloride 101 mmol/L (98-107); Creatinine, Serum 0.82 mg/dL (0.55-1.02); EST Glomerular Filtration Rate 75 mL/min (>60); Est Glom Filt Rate - Afr Amer 91 mL/min (>60); Estimated Creatinine Clearance 56.58 ml/min; Glucose 450 mg/dL (74-106); Potassium 4.5 mmol/L (3.5-5.1); Sodium Level 133 mmol/L (136-145)
--- NOTE | 2019-01-01 11:07 | ED.RN ---
PT RETURNED FROM RADIOLOGY AND WAS TALKING TO HER FAMILY WITHOUT ANY DIFFICULTY AND WAS CLEAR. PT IS CONGESTIONED AND SOUNDS SLIGHTLY HORSE. DURING THE STROKE ASSESSMENT PT STATED WAS UNABLE TO PICK LEFT LEG UP BUT THEN PICKED IT UP TO SHOW A SMALL ABRASION TO LEFT ANKLE FROM HER FALL THIS MORNING. THIS WAS CHARTED NORMAL BECAUSE SHE HELD IT UP FOR A EXTENDED TIME WILE DISCUSSING WHERE THE ABRASION WAS AND HOW HER LEG/HIP WAS INJURED. PT'S NIH IS ZERO AT THIS TIME. PHYSICIAN IS AWARE.
--- NOTE | 2019-01-01 12:31 | CON.PCM_ITS ---
Problem List (1) Stroke Status: Acute Reason for Consult Date of Consultation: 01/01/19 Reason for Consultation: Stroke alert History of Present Illness: The patient is a 63 year old F with PMH HTN, HLD, DM, CAD s/p stents, COPD, Schizophrenia, tobacco abuse admitted as a stroke alert. Per patient she was normal last night (12/31/18) when she went to sleep, and when she woke up this morning she had difficulty speaking, was dropping objects with the left hand, dropped her coffee mug, then later fell, and was brought to [facility] ED as stroke alert for left sided weakness and speech disturbances, per patient she woke up with these symptoms. NIHSS on admission was 5, she was not a tpa candidate, does complaint of left hip pain, CT head and CTA head/neck done on admission not reported to show any LVO or hemodynamically significant stenosis or occlusion. Per patient she lives with her daughter, denies any falls, does not use cane or walker to ambulate, does not drive. She is on ASA/Plavix at baseline. On Risperidone and Cullom for psychiatry issues. [] Past Medical History Past Medical History (Chronic Problems): Chronic Problems CVA (cerebral vascular accident) (Chronic) GERD (gastroesophageal reflux disease) (Chronic) Uncontrolled type 2 diabetes mellitus (Chronic) Benign essential hypertension (Chronic) Type 2 diabetes mellitus (Chronic) Hyperlipidemia (Chronic) Coronary artery disease (Chronic) ROMEL LAD 01/21 COPD (chronic obstructive pulmonary disease) (Chronic) cont smoking Tobacco abuse (Chronic) NSTEMI (non-ST elevated myocardial infarction) (Chronic) Allergies Penicillins Allergy (Verified 01/01/19 11:01) Hives morphine Adverse Reaction (Mild, Verified 01/01/19 11:01) Itching hydrocodone bitartrate [From Vicodin] Adverse Reaction (Verified 01/01/19 11:01) Vomiting ibuprofen Adverse Reaction (Verified 01/01/19 11:01) Vomiting Home Medications: Ambulatory Orders Medication Instructions Recorded Aspirin [Adult Low Dose Aspirin EC] 81 mg PO DAILY 02/04/16 Simvastatin [Zocor] 40 mg PO QHS 01/24/17 Clopidogrel Bisulfate [Plavix] 75 mg PO DAILY 06/23/17 Metoprolol Tartrate [Lopressor 25 mg PO BID 06/23/17 (beta elder)] Nitroglycerin [Nitrostat] 0.4 mg SUBLINGUAL Q5M PRN 09/28/17 Insulin Detemir [Levemir FlexPen] 23 units SC BREAKFAST 02/18/18 Glimepiride [Amaryl] 4 mg PO DAILY #30 tab 05/31/18 Insulin Detemir [Levemir Flextouch] 26 unit SC QHS #1 insuln.pen 05/31/18 Cyclobenzaprine [Flexeril] 10 mg PO TID PRN #20 tablet 07/02/18 Quetiapine Fumarate [Seroquel] 100 mg PO QHS 09/14/18 Risperidone [Risperdal] 4 mg PO QHS 09/14/18 Pantoprazole Sodium [Protonix] 40 mg PO DAILY 10/05/18 [place] Carbonate [[place] 300 mg PO BID 10/26/18 Carbonate ER] Furosemide [Lasix] 40 mg PO DAILY 11/17/18 Lisinopril 5 mg PO DAILY 11/17/18 Metformin HCl 1,000 mg PO BID 11/17/18 Omeprazole [Prilosec] 20 mg PO DAILY #30 cap 12/22/18 Surgical History: angioplasty, appendectomy, cholecystectomy, hysterectomy, - Lives: With Family Smoking Status: Former smoker Alcohol: None Drugs: None - *Family History Maternal History Items: Cancer - Uterine cancer, Diabetes, Heart Disease Paternal History Items: Heart Disease Sibling History Items: Diabetes, Heart Disease, Hypertension Review of Systems Constitutional: Reports: - - Complete ROS negative except as documented in HPI Patient Problems: Active and Suspected Problems Stroke (Acute) - Physical Exam General: Alert HEENT: Normocephalic Neck: Supple Lungs: Normal air movement Cardiovascular: Normal S1, Normal S2 Abdomen: Bowel Sounds Present Extremities: No cyanosis Neurological: - - consious, alert, AoAx3, CN 2-12 grossly intact, power 5/5 right UE/LE, 4/5 left UE/LE, pronator drift left UE/LE, mild sensory loss to light touch left side, extinction +, speech improved, Reflexes + B/L B/S/T/K/A, gait deferred, NIHSS 4 at present, mRS 0 at baseline Vital Signs Temp Pulse Resp BP Pulse Ox 98.3 F 78 14 125/63 H 100 01/01/19 11:51 01/01/19 11:51 01/01/19 11:51 01/01/19 11:51 01/01/19 11:51 Oxygen Flow Rate (L/min) 2 Oxygen Delivery Method Room Air Weight: 72.3 kg Body Mass Index (BMI) 28.2 Finger Stick Blood Glucose 453 Laboratory Tests Past 24 Hrs 01/01/19 01/01/19 01/01/19 10:35 10:35 10:35 WBC 12.8 H RBC 3.90 L Hgb 12.2 Hct 34.7 L MCV 89.0 MCH 31.3 MCHC 35.2 RDW 12.6 RDW Differential 40.0 Plt Count 224 MPV 10.8 Immature Gran % (Auto) 0.200 Neut % (Auto) 75.1 H Lymph % (Auto) 16.6 L [place] % (Auto) 7.2 Eos % (Auto) 0.7 Baso % (Auto) 0.2 Absolute Neuts (auto) 9.6 H Absolute Lymphs (auto) 2.12 Total Counted Not Reportable PT 12.4 INR 0.9 APTT 25.2 Sodium 133 L Potassium 4.5 Chloride 101 Carbon Dioxide 23.0 Anion Gap 9 BUN 12 Creatinine 0.82 Estim Creat Clear Calc 56.58 Est GFR (MDRD) Af Amer 91 Est GFR (MDRD) Non-Af 75 BUN/Creatinine Ratio 14.7 Glucose 450 H Calcium 9.2 Troponin I < 0.015 POC Glucose 01/01/19 10:36 POC Glucose 453 H* Assessment/Plan All Active Problems Stroke (Acute) Acute hyperglycemia (Acute) Chest pain (Acute) VTE (venous thromboembolism) (Resolved) The patient is a 63 year old F with PMH HTN, HLD, DM, CAD s/p stents, COPD, Schizophrenia, tobacco abuse admitted as a stroke alert. Per patient she was normal last night (12/31/18) when she went to sleep, and when she woke up this morning she had difficulty speaking, was dropping objects with the left hand, dropped her coffee mug, then later fell, and was brought to [facility] ED as stroke alert for left sided weakness and speech disturbances, per patient she woke up with these symptoms. NIHSS on admission was 5, she was not a tpa candidate, does complaint of left hip pain, CT head and CTA head/neck done on admission not reported to show any LVO or hemodynamically significant stenosis or occlusion. Per patient she lives with her daughter, denies any falls, does not use cane or walker to ambulate, does not drive. She is on ASA/Plavix at baseline. On Risperidone and Cullom for psychiatry issues. Impression R/O Right MCA stroke Plan -On ASA/Plavix and Statin -CT head and CTA head/neck reviewed- no LVO -Check MRI brain w/o contrast -Check TTE, LDL and Hba1c -Xray hip not reported to show any fracture. -Stroke risk factors discussed and stroke education provided -Permissive HTN for 24 hrs -BS was high on admission, defer further management to ED -PT/OT/ST -GI/DVT prophylaxis -Further medical management per hospitalist team -Please call with questions if any -Thank you for allowing us to participate in patient's care and management. Code Visit Inpatient E&M: [id number] Init Hosp L3
--- NOTE | 2019-01-01 13:34 | CASEMGMT ---
RN CM Assessment Introduced role of RN CM to patient, daughter Lizet Vasquez, and Dayron Mary.? Patient is alert, oriented and able?to participate in RN CM Assessment. ?Care providers, pharmacy, and demographics verified. Presentation: Fatigue, fall, speech- stuttering (Code Stroke Called) Re-Admit: No. Last Admit Obs 11/17-11/18/18 for CP. ER 12/06/18-CP, ER 12/22/18- Abd Pain Barriers/Issues: None PCP: Monster Salcedo Specialists: None Preferred Pharmacy: [facility] Insurance: Medicare A&B Rx Benefit:?Yes ?LNOK: Dayron Mary LW/HPOA: HPOA on file at [facility]. [facility] and unsure about LW Living Arrangements:? Lives with and Dtr. ADL?s: Independent with ambulation and ADL's Transportation: normally drives, Dtr Lizet Vasquez to drive on DC DME: CPAP, No preference on DME Provider. HHC: None, No preference on Agency. SNF: None Goal: Home DC PLAN: Home with possible HH PT or Walker. Tsering Kim RNCM
[2019-01-01 14:31] LABS: Bedside Glucose 316 mg/dL (70-110)
--- NOTE | 2019-01-01 14:39 | CT_ITS ---
STUDY: CTA OF THE BRAIN REASON FOR EXAM: Female, 63 years old. CVA. RADIATION DOSAGE (If Supplied By Facility): CTDIvol = ( 17.50 ) mGy, DLP = ( 672.03 ) mGycm TECHNIQUE: CT angiography was performed with a multi-detector CT scanner. Data acquisition was obtained from the skull base through the vertex following intravenous administration of Isovue 370 100ml IV. MIP images were reconstructed from the axial data set. Post-processing of the angiographic images was performed, with multiplanar reformation and 3D reconstruction. Individualized dose optimization techniques were used for this CT. COMPARISON: None. FINDINGS: Normal bilateral petrous carotid arteries. Normal right cavernous carotid artery with a normal supraclinoid bifurcation. Normal left cavernous carotid artery with a normal supraclinoid bifurcation. There is hypoplastic development of the right A1 segment of the anterior cerebral arteries with an atretic but intact artery. Normal left A1 segments of the anterior cerebral artery. Normal intact anterior communicating artery (ACOM). Normal bilateral A2 segments of the anterior cerebral arteries. Normal right M1 and M2 segments of the middle cerebral arteries, with a normal M1 bifurcation. Normal left M1 and M2 segments of the middle cerebral arteries, with a normal M1 bifurcation. Normal right posterior communicating artery (PCOM). Normal left posterior communicating artery (PCOM). Normal bilateral vertebral arteries. Normal basilar artery with a normal basilar bifurcation. The visualized bilateral superior cerebellar (SCA) arteries are normal. Normal bilateral P1, P2 and visualized P3 segments of the posterior cerebral arteries. There is no demonstrated aneurysm of the torres martinez of [place]. There is no demonstrated abnormality of the visualized brain. CT/CTA Head W/WO Contrast IMPRESSION: Normal torres martinez of [place] without a demonstrated aneurysm or hemodynamically significant stenosis. Electronically Signed: Uriah Weathers, at 15:30 EDT , Service support ,
--- NOTE | 2019-01-01 17:28 | MRI_ITS ---
STUDY: MRI BRAIN WITHOUT CONTRAST REASON FOR EXAM: Female, 63 years old. Possible stroke left-sided weakness dysarthria, dizziness and change TECHNIQUE: Standardized multiplanar fat and water weighted pulse sequences were obtained. COMPARISON: None. FINDINGS: The diffusion weighted sequence is normal. There is 5 mm increased T2 signal abnormality within the right basal ganglia likely Virchow-Gunner space.. There is mild edema within the turbinates. Normal bilateral basal ganglia. Normal thalami. There is no extra-axial fluid accumulation. Normal flow voids within the major intracranial circulation suggesting patency by spin echo criteria. Normal sella turcica, pituitary gland, infundibular stalk, optic chiasm and hypothalamus. Normal tectal plate and pineal gland. Normal midbrain, pascual and medulla. Normal cerebellum. Normal basal cisterns. Normal bilateral temporal bones. Normal bilateral internal auditory canals. No demonstrated orbital abnormality, within the constraints of a routine brain study. Normal visualized paranasal sinuses. Normal calvarium and skull base. Normal visualized soft tissue structures. Normal visualized upper cervical spine. MRI/Brain without Contrast IMPRESSION: No MRI evidence for acute infarct Mild central and cortical involutional changes Electronically Signed: Ran Velarde, at 23:16 EDT Tel , Service support ,
[2019-01-01] MEDS: oxyCODONE 5 MG Tablet PO (17:43)
[2019-01-01] MEDS: proMETHazine 25 MG/ML Syringe 6.25 MG IV (20:19)
[2019-01-01] MEDS: 0.9% NaCl Peripheral Flush Adult/Peds IV ×2 (20:19→20:22)
--- NOTE | 2019-01-01 21:37 | HP.PCM_ITS ---
Problem List (1) Left-sided weakness Status: Acute (2) Contusion of hip, left Status: Acute Qualifiers: Encounter type: initial encounter Qualified Code(s): S70.02XA - Contusion of left hip, initial encounter History of Present Illness Date of Admission: 01/01/19 Chief Complaint: Left-sided weakness, left hip contusion The patient is a 63 year old F who was seen in the emergency room at [facility] after sustaining a fall at home landing on her left hip, she complained of left-sided weakness, she did not complain of any speech difficulty or visual difficulty. Workup in the emergency room was performed, and included x-rays of her left hip which did not show any evidence of fracture, CTA of the neck was performed which showed a 40% stenosis of the proximal left common carotid artery, CTA of the brain was unremarkable, CT of the brain was unremarkable. Patient's NIH stroke score was 1, white blood cell count was slightly elevated at 12.8, patient's blood sugar was elevated at 450. Patient was given insulin in the emergency room, she was seen and examined by neurology and not felt to be a candidate for TPA. Patient will be placed and observation status on PCU for left-sided weakness, she will undergo an MRI of the brain tomorrow, echocardiogram, and be seen by PT and OT. Past Medical History Past Medical History (Chronic Problems): Chronic Problems CVA (cerebral vascular accident) (Chronic) GERD (gastroesophageal reflux disease) (Chronic) Uncontrolled type 2 diabetes mellitus (Chronic) Benign essential hypertension (Chronic) Type 2 diabetes mellitus (Chronic) Hyperlipidemia (Chronic) Coronary artery disease (Chronic) ROMEL LAD 01/21 COPD (chronic obstructive pulmonary disease) (Chronic) cont smoking Tobacco abuse (Chronic) NSTEMI (non-ST elevated myocardial infarction) (Chronic) Allergies Penicillins Allergy (Verified 01/01/19 11:01) Hives morphine Adverse Reaction (Mild, Verified 01/01/19 11:01) Itching hydrocodone bitartrate [From Vicodin] Adverse Reaction (Verified 01/01/19 11:01) Vomiting ibuprofen Adverse Reaction (Verified 01/01/19 11:01) Vomiting Home Medications: Ambulatory Orders Medication Instructions Recorded Aspirin [Adult Low Dose Aspirin EC] 81 mg PO DAILY 02/04/16 Simvastatin [Zocor] 40 mg PO QHS 01/24/17 Clopidogrel Bisulfate [Plavix] 75 mg PO DAILY 06/23/17 Metoprolol Tartrate [Lopressor 25 mg PO BID 06/23/17 (beta elder)] Nitroglycerin [Nitrostat] 0.4 mg SUBLINGUAL Q5M PRN 09/28/17 Insulin Detemir [Levemir FlexPen] 23 units SC BREAKFAST 02/18/18 Insulin Detemir [Levemir Flextouch] 26 unit SC QHS #1 insuln.pen 05/31/18 Cyclobenzaprine [Flexeril] 10 mg PO TID PRN #20 tablet 07/02/18 Quetiapine Fumarate [Seroquel] 100 mg PO QHS 09/14/18 Risperidone [Risperdal] 4 mg PO QHS 09/14/18 [place] Carbonate [[place] 300 mg PO BID 10/26/18 Carbonate ER] Furosemide [Lasix] 40 mg PO DAILY 11/17/18 Lisinopril 5 mg PO DAILY 11/17/18 Metformin HCl 1,000 mg PO BID 11/17/18 Glimepiride [Amaryl] 4 mg PO DAILY 01/01/19 Omeprazole [Prilosec] 20 mg PO DAILY 01/01/19 Surgical History: angioplasty, appendectomy, cholecystectomy, hysterectomy Psychiatric History: Bipolar 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 Denies: Anorexia, Chills, Fever, Night Sweats, Malaise, Weight Change Eyes: Denies: Cataracts, Conjunctivae Inflammation, Double vision, Drainage HEENT: Denies: Dysphasia, Ear Pain, Eye Pain, Hearing Changes, Nasal bleeding, Nasal Congestion, Post Nasal Drip Cardiovascular: Denies: Chest Pain, Claudication, Chest Pressure, Chest Tightness, Edema, Heaviness, Orthopnea, Palpitations Respiratory: Denies: Cough, Hemoptysis, Pleuritic Pain, Shortness of Breath, Shortness of breath at rest, Shortness of breath upon exertion, Sputum production Gastrointestinal: Denies: Abdominal Pain, Constipation, Diarrhea, Hematemesis, Hematochezia, Nausea, Melena, Vomiting Genitourinary: Denies: Dysuria, Frequency, Hematuria, Hesitancy, Nocturia, Retention, Urgency Gynecological: Denies: Breast symptoms Musculoskeletal: Reports: Joint Pain - Left hip pain since fall this morning. Denies: Joint stiffness, Joint swelling Skin: Denies: Dryness, Jaundice, Pruritis, Rash Neurological: Reports: Focal weakness - Left-sided weakness. Denies: Blurred vision, Double vision, Change in Speech, Slurred speech, Difficulty swallowing, Numbness, Tingling Psychiatric: Denies: Anxiety, Depression, Homicidal Ideations, Suicidal Ideations Endocrine: Denies: Change in Body Habitus, Heat/ Cold Intolerance, Polydipsia, Polyuria Hematologic/ Lymphatic: Denies: Adenopathy, Anemia, Easy Bruising, Easy Bleeding, Petechiae, Purpura VTE Information - Inpt Only VTE Present on Admission: No VTE Mechan Device Prophylaxis: None VTE Pharm Prophylaxis ordered?: Yes Patient Problems: Active and Suspected Problems Stroke (Suspected) TIA (transient ischemic attack) (Suspected) Contusion of hip, left (Acute) Hyperglycemia due to type 2 diabetes mellitus (Acute) Left-sided weakness (Acute) - Physical Exam General: Alert, Oriented x3, Cooperative, No apparent distress, Well developed HEENT: Atraumatic, PERRLA, EOMI, Normocephalic Oral: Moist Mucosa Neck: Supple, No JVD, Negative Carotid Bruits, No Nuchal Rigidity, Trachea Midline, Thyroid Normal Size and Texture Lungs: Clear to auscultation, Normal air movement, No rhonchi, No wheeze, No rales Cardiovascular: Regular rate, Regular Rhythm, Normal S1, Normal S2, No murmurs, No Ectopic Activity Abdomen: Bowel Sounds Present, Soft, Non Tender, Non-Distended Extremities: No clubbing, No cyanosis, No edema, Capillary Refill Less than 3 Seconds Skin: No rashes, No breakdown Neurological: Cranial nerves II-XII grossly intact, Neuro grossly intact, Sensory exam intact to light touch and pain Psych/Mental Status: Normal Affect, Appropriate, Alert and oriented to time, place, person, mood and affect Vital Signs Temp Pulse Resp BP Pulse Ox 97.7 F L 92 18 100/56 L 98 01/01/19 17:19 01/01/19 19:25 01/01/19 17:19 01/01/19 17:19 01/01/19 17:19 Oxygen Flow Rate (L/min) 2 Oxygen Delivery Method Nasal Cannula Weight: 65.2 kg Body Mass Index (BMI) 25.4 Finger Stick Blood Glucose 453 Intake and Output for Last 24 Hours 12/30/18 12/31/18 01/01/19 23:59 23:59 23:59 Intake Total 220 / 220 Balance 220 / 220 Laboratory Tests Past 24 Hrs 01/01/19 01/01/19 01/01/19 10:35 10:35 10:35 WBC 12.8 H RBC 3.90 L Hgb 12.2 Hct 34.7 L MCV 89.0 MCH 31.3 MCHC 35.2 RDW 12.6 RDW Differential 40.0 Plt Count 224 MPV 10.8 Immature Gran % (Auto) 0.200 Neut % (Auto) 75.1 H Lymph % (Auto) 16.6 L [place] % (Auto) 7.2 Eos % (Auto) 0.7 Baso % (Auto) 0.2 Absolute Neuts (auto) 9.6 H Absolute Lymphs (auto) 2.12 Total Counted Not Reportable PT 12.4 INR 0.9 APTT 25.2 Sodium 133 L Potassium 4.5 Chloride 101 Carbon Dioxide 23.0 Anion Gap 9 BUN 12 Creatinine 0.82 Estim Creat Clear Calc 56.58 Est GFR (MDRD) Af Amer 91 Est GFR (MDRD) Non-Af 75 BUN/Creatinine Ratio 14.7 Glucose 450 H Calcium 9.2 Troponin I < 0.015 POC Glucose 01/01/19 01/01/19 14:28 10:36 POC Glucose 316 H 453 H* Assessment/Plan All Active Problems Contusion of hip, left (Acute) Hyperglycemia due to type 2 diabetes mellitus (Acute) Left-sided weakness (Acute) Acute hyperglycemia (Acute) Chest pain (Resolved) VTE (venous thromboembolism) (Resolved) #1 acute left-sided weakness-etiology unclear, patient will be placed in observation status on PCU, she will be seen by PT and OT, she will remain on Plavix and aspirin, she will be followed by neurology, she will have an echocardiogram performed, NIH stroke scores will be monitored #2 uncontrolled type 2 diabetes-blood sugars will be monitored and she will be given sliding scale insulin, she will remain on her home insulin #3 left hip contusion-patient will be seen by PT and OT, if her severe left hip pain continues, patient may need an MRI performed #4 bipolar disorder Code Visit OBSV E&M: [id number] Initial observation care L3
[2019-01-01] MEDS: RisperiDONE 2 MG Tablet 4 MG PO (22:33)
[2019-01-01] MEDS: Metoprolol Tartrate 25 MG Tablet PO (22:33)
[2019-01-01] MEDS: Atorvastatin Calcium 20 MG Tablet PO (22:33)
[2019-01-01] MEDS: QUEtiapine 100 MG Tablet PO (22:34)
[2019-01-01] MEDS: Enoxaparin 40 MG/0.4 ML Syringe SC (22:34)
[2019-01-01 22:46] LABS: Bedside Glucose 468 mg/dL (70-110)
[2019-01-01 23:09] LABS: Glucose 430 mg/dL (74-106)
[2019-01-01] MEDS: Insulin Lispro 100 UNIT/ML INSULN.PEN 20 UNIT SC (23:46)
[2019-01-02] VITALS (14 sets, daily range): BP systolic 93–117; BP diastolic 49–58; PULSE 61–91; RESP 16–18; TEMP 36.3–37.2; O2SAT 97–99; BMI 25.4
[2019-01-02 03:46] LABS: Bedside Glucose 80 mg/dL (70-110)
[2019-01-02 05:23] LABS: Cholesterol 171 mg/dL (200); High Density Lipoprotein 43 mg/dL; Triglycerides 401 mg/dL
[2019-01-02] MEDS: Acetaminophen 325 MG Tablet 650 MG PO (07:38)
[2019-01-02] MEDS: Glimepiride 4 MG Tablet PO (07:39)
[2019-01-02] MEDS: Aspirin E.C. 81 MG Tablet PO (07:39)
[2019-01-02 07:41] LABS: Bedside Glucose 137 mg/dL (70-110)
[2019-01-02] MEDS: Insulin Lispro 100 UNIT/ML INSULN.PEN SC ×4 (07:41→16:39)
[2019-01-02] MEDS: Lisinopril 5 MG Tablet PO (09:11)
[2019-01-02] MEDS: Furosemide 40 MG Tablet PO (09:11)
[2019-01-02] MEDS: Clopidogrel Bisulfate 75 MG Tablet PO (09:11)
[2019-01-02] MEDS: Enoxaparin 40 MG/0.4 ML Syringe SC (09:12)
[2019-01-02] MEDS: Metoprolol Tartrate 25 MG Tablet PO ×2 (09:12→21:54)
[2019-01-02] MEDS: Pantoprazole Sodium 20 MG Tablet PO (09:17)
[2019-01-02] MEDS: Lithium Carbonate 300mg Capsule 300 MG PO ×2 (09:24→21:54)
--- NOTE | 2019-01-02 10:41 | PCM.PN.NEU ---
Patient Problems: Active and Suspected Problems Stroke (Suspected) TIA (transient ischemic attack) (Suspected) Contusion of hip, left (Acute) Hyperglycemia due to type 2 diabetes mellitus (Acute) Left-sided weakness (Acute) Subjective: No Issues overnight. Care discussed with hospitalist. MRI brain reported nothing acute. - Physical Exam General: Alert HEENT: Normocephalic Neck: Supple Lungs: Clear to auscultation Cardiovascular: Normal S1, Normal S2 Abdomen: Bowel Sounds Present Extremities: No cyanosis Neurological: - - consious, alert, AoAx3, CN 2-12 grossly intact, complaints of subjective sensory loss left side of the body and face, power 5/5 Right UE/LE, -5/5 Left UE/LE, no pronator drift, plantars B/L Flexor, no cerebellar signs, Reflexes + B/L B/S/T/K/A. gait deferred Psych/Mental Status: Normal Affect Vital Signs Temp Pulse Resp BP Pulse Ox 97.8 F 88 18 93/50 L 99 01/02/19 07:23 01/02/19 09:12 01/02/19 07:23 01/02/19 07:23 01/02/19 07:23 Oxygen Flow Rate (L/min) 2 Oxygen Delivery Method Room Air Weight: 65.1 kg Body Mass Index (BMI) 25.4 Finger Stick Blood Glucose 453 Intake and Output for Last 24 Hours 12/31/18 01/01/19 01/02/19 23:59 23:59 23:59 Intake Total 220 / 220 340 / 340 Output Total 800 / 800 Balance 220 / 220 -460 / -460 Laboratory Tests Past 24 Hrs 01/01/19 01/01/19 01/01/19 10:35 10:35 10:35 WBC 12.8 H RBC 3.90 L Hgb 12.2 Hct 34.7 L MCV 89.0 MCH 31.3 MCHC 35.2 RDW 12.6 RDW Differential 40.0 Plt Count 224 MPV 10.8 Immature Gran % (Auto) 0.200 Neut % (Auto) 75.1 H Lymph % (Auto) 16.6 L [place] % (Auto) 7.2 Eos % (Auto) 0.7 Baso % (Auto) 0.2 Absolute Neuts (auto) 9.6 H Absolute Lymphs (auto) 2.12 Total Counted Not Reportable PT 12.4 INR 0.9 APTT 25.2 Sodium 133 L Potassium 4.5 Chloride 101 Carbon Dioxide 23.0 Anion Gap 9 BUN 12 Creatinine 0.82 Estim Creat Clear Calc 56.58 Est GFR (MDRD) Af Amer 91 Est GFR (MDRD) Non-Af 75 BUN/Creatinine Ratio 14.7 Glucose 450 H Calcium 9.2 Troponin I < 0.015 Triglycerides Cholesterol LDL Cholesterol VLDL Cholesterol HDL Cholesterol 01/01/19 01/02/19 22:50 04:08 WBC RBC Hgb Hct MCV MCH MCHC RDW RDW Differential Plt Count MPV Immature Gran % (Auto) Neut % (Auto) Lymph % (Auto) [place] % (Auto) Eos % (Auto) Baso % (Auto) Absolute Neuts (auto) Absolute Lymphs (auto) Total Counted PT INR APTT Sodium Potassium Chloride Carbon Dioxide Anion Gap BUN Creatinine Estim Creat Clear Calc Est GFR (MDRD) Af Amer Est GFR (MDRD) Non-Af BUN/Creatinine Ratio Glucose 430 H Calcium Troponin I Triglycerides 401 H Cholesterol 171 LDL Cholesterol TNP VLDL Cholesterol TNP HDL Cholesterol 43 POC Glucose 01/02/19 01/02/19 01/01/19 06:59 03:34 22:30 POC Glucose 137 H 80 468 H* 01/01/19 01/01/19 14:28 10:36 POC Glucose 316 H 453 H* Medical Necessity - Tobacco Use Smoking Status: Former smoker Tobacco Use: Non-smoker Assessment/Plan All Active Problems Contusion of hip, left (Acute) Hyperglycemia due to type 2 diabetes mellitus (Acute) Left-sided weakness (Acute) Acute hyperglycemia (Acute) Chest pain (Resolved) VTE (venous thromboembolism) (Resolved) The patient is a 63 year old F with PMH HTN, HLD, DM, CAD s/p stents, COPD, Schizophrenia, tobacco abuse admitted as a stroke alert. Per patient she was normal last night (12/31/18) when she went to sleep, and when she woke up this morning she had difficulty speaking, was dropping objects with the left hand, dropped her coffee mug, then later fell, and was brought to [facility] ED as stroke alert for left sided weakness and speech disturbances, per patient she woke up with these symptoms. NIHSS on admission was 5, she was not a tpa candidate, does complaint of left hip pain, CT head and CTA head/neck done on admission not reported to show any LVO or hemodynamically significant stenosis or occlusion. Per patient she lives with her daughter, denies any falls, does not use cane or walker to ambulate, does not drive. She is on ASA/Plavix at baseline. On Risperidone and [place] for psychiatry issues. Impression Left sided sensory deficit, with some subjective weakness Possible symptoms due to metabolic issues, uncontrolled DM vs conversion syndrome Plan -On ASA/Plavix and Statin -CT head and CTA head/neck reviewed- no LVO -MRI brain w/o contrast-reported no acute stroke -Await TTE, LDL and Hba1c -Xray hip not reported to show any fracture. -Stroke risk factors discussed and stroke education provided -BS was high on admission, defer further management to ED -PT/OT/ST -GI/DVT prophylaxis -Further medical management per hospitalist team -Please call with questions if any -Thank you for allowing us to participate in patient's care and management.
[2019-01-02] MEDS: oxyCODONE 5 MG Tablet PO (11:29)
[2019-01-02 11:36] LABS: Bedside Glucose 345 mg/dL (70-110)
--- NOTE | 2019-01-02 12:50 | PCM.PROGNOTE ---
Patient Problems: Active and Suspected Problems Stroke (Suspected) TIA (transient ischemic attack) (Suspected) Contusion of hip, left (Acute) Hyperglycemia due to type 2 diabetes mellitus (Acute) Left-sided weakness (Acute) Subjective: The patient is a 63-year-old female with a past medical history of CVA, GERD, poorly controlled diabetes mellitus type 2, hypertension, hyperlipidemia, coronary artery disease with history of PTCA/ROMEL to the LAD, COPD and past history of tobacco dependence who presented to the emergency department at [facility] on 01/01/2019 complaining of left side weakness after a fall onto her left hip at home. X-ray of the left hip showed no fracture. A noncontrast CT scan of the brain was unremarkable and showed no acute findings. CTA of the neck showed a 40% stenosis of the proximal left common carotid artery. CT brain was unremarkable. NIH score was 1. CBC showed a white blood cell count of 12.8 with 75% neutrophils. Hemoglobin and platelets were within normal limits. Sodium was mildly decreased at 133 secondary to pseudohyponatremia related to uncontrolled blood sugars. Random blood sugar was 450. The troponin was less than 0.015. All events of the past 24 hours have been reviewed Afebrile since admission. All signs are stable-blood pressure is mildly decreased today from admission and the current blood pressure is 98/49. She is 97% saturated on room air. Triglycerides are elevated at 401 and the total cholesterol is 171. The HDL is 43. At home she takes Levemir twice daily, metformin 1000 mg twice daily and Amaryl 4 mg daily. At admission she was started on her normal Levemir dosage and Amaryl but metformin was held. The blood sugar at was 80. An MRI showed no evidence for acute infarct. There was mild central and cortical involutional changes. She has been seen in consultation by Dr. Miller from neurology and I did discuss his impressions with him. She continues to complain of left facial numbness and there is no reason for this on the MRI. He is thinking perhaps conversion reaction. She was seen by speech therapy and she reported that she was having trouble with word finding Tuesday and Tuesday but, this has now resolved. She complained of painful swallowing and was coughing with solid textures because she stated the food got stuck. She was made NPO and is scheduled for modified barium swallow in the a.m. Her medications include lithium, Seroquel, Risperdal......why 2 atypical anti-psychotics? Her prepackaged pis from the pharmacy contain only Risperdal.....she tells me that Dr. Duong prescribed the Seroquel 2 months ago BUT, the counselling center has no record of her every being seen there and Dr. Duong is a psychologist and can not prescribe meds. Her and dtr state she had slurred speech and was very wobbly walking Tuesday......she fell and her dtr could not pick her up. Denies any recent changes in meds Objective: PHYSICAL EXAM: GENERAL: alert, oriented X 3, Cooperative, NAD ORAL: moist mucosa, no mucosal lesions NECK: No JVD, supple, trachea midline, no carotid bruits LUNGS: CTA, symmetric chest expansion HEART: RRR, Normal S1 and S2, no rub, no gallop, no murmur ABDOMEN: soft, NT, ND, BS present, no guarding with palpation EXTREMITIES: no edema, no cyanosis, no calf tenderness SKIN: No rashes, no breakdown NEUROLOGIC: no focal neurologic deficits, cranial nerves II through XII are grossly intact, 5/5 strength throughout PSYCH: appropriate, normal affect, pleasant - Physical Exam Vital Signs Temp Pulse Resp BP Pulse Ox 98.7 F 81 18 98/49 L 97 01/02/19 11:20 01/02/19 11:20 01/02/19 11:20 01/02/19 11:20 01/02/19 11:20 Oxygen Flow Rate (L/min) 2 Oxygen Delivery Method Room Air Weight: 143 lb 8.335 oz Body Mass Index (BMI) 25.4 Finger Stick Blood Glucose 453 Intake and Output for Last 24 Hours 12/31/18 01/01/19 01/02/19 23:59 23:59 23:59 Intake Total 220 / 220 580 / 580 Output Total 1300 / 1300 Balance 220 / 220 -720 / -720 Laboratory Tests Past 24 Hrs 01/01/19 01/02/19 22:50 04:08 Glucose 430 H Triglycerides 401 H Cholesterol 171 LDL Cholesterol TNP VLDL Cholesterol TNP HDL Cholesterol 43 POC Glucose 01/02/19 01/02/19 01/02/19 11:25 06:59 03:34 POC Glucose 345 H 137 H 80 01/01/19 01/01/19 22:30 14:28 POC Glucose 468 H* 316 H Medical Necessity - Tobacco Use Smoking Status: Former smoker Tobacco Use: Non-smoker Assessment/Plan All Active Problems Contusion of hip, left (Acute) Hyperglycemia due to type 2 diabetes mellitus (Acute) Left-sided weakness (Acute) Acute hyperglycemia (Acute) Chest pain (Resolved) VTE (venous thromboembolism) (Resolved) Impressions 1. Left hip pain post fall - no fracture on plain XRAY of the hip. 2. subjective numbness of the left face and Left leg........no focal neurologic deficits on PE and negative MRI. Conversion disorder. 3. BPD - on Risperdal and Seroquel but, Seroquel is NOT in her prepackaged pills 4. tobacco dependence 5. Type 2 diabetes mellitus-uncontrolled 6. Subtherapeutic lithium level 7. GERD 8. Hypertension 9. Hyperlipidemia 10. Coronary artery disease with history of PTCA/ROMEL to the LAD 11. COPD 12. Patient failed her bedside evaluation by the speech therapist-made n.p.o. and will schedule modified barium swallow in the a.m. CT scan of the left hip to rule out nondisplaced fracture Modified barium swallow in the a.m., n.p.o. until then Discontinue Seroquel and continue Risperdal Cover BS's for now since she is NPO and hold the oral agents Code Visit Inpatient E&M: 70190 Subs Hosp L2
--- NOTE | 2019-01-02 13:41 | CASEMGMT ---
Patient wanted to complete new Healthcare POA papers. SW completed document with patient. Copies made and given to patient along with original. SW also placed a copy in patient's chart. Carmen WADE MSW
[2019-01-02 14:41] LABS: Bedside Glucose 364 mg/dL (70-110)
--- NOTE | 2019-01-02 14:46 | CASEMGMT ---
Addendum entered and electronically signed by Danay Aceves 01/02/19 15:33: Reviewed and approve PREPARATION PLANT SUPERVISOR student documentation below and on the PHQ9 screening tool. -SHARRI Alaniz, [employer] Original Note: Social Work Progressive Care Unit PHQ9 Depression Assessment completed due to diagnosis of TIA. Patient's score was 11, see attached link for details. For clarification, patient denies any thoughts of being better off or hurting self. Patient spoke about feelings of having little interest in doing things and reported that is a regular occurrence. Patient also reported to be feeling a little down to be normal for self. Patient attributed lack of energy to sleep issues. Patient reported to sleep roughly 1 to 2 hours each night but not due to mind racing thoughts. Patient feels trouble concentrating is due to being tired all the time. Patient find self being fidgety due to feeling anxious at times. Patient disclosed that occasionally hears voices at night when unable to sleep. Patient has been diagnosed with anxiety, depression, and bi-polar disorder. Patient does not identify many coping skills other than talking to her . Patient has been seeing a [facility]. Patient also sees a psychiatrist for medication and reports to be taking regularly. Patient was not able to provide a name of psychiatrist but did disclose that is also through [facility]. Patient's next appointment at the [facility] is January 16 and reports intent to attend. Provided resource sheet regarding symptoms of depression, how to seek treatment, and phone numbers for help. No further services requested or indicated at this time. -Jessica Rain, PREPARATION PLANT SUPERVISOR Student Nutrition Worker.
--- NOTE | 2019-01-02 15:03 | CASEMGMT ---
Patient has a Healthcare POA on file, but not a Healthcare LW. SW did new POA papers for patient per her request. Carmen WADE MSW
[2019-01-02 16:16] LABS: Bedside Glucose 382 mg/dL (70-110)
--- NOTE | 2019-01-02 16:28 | CT_ITS ---
Study: CT of the left hip without contrast CLINICAL HISTORY: Fell at home, pain, left-sided weakness Previous study: Plain film study of the left hip of this date. PROCEDURE: Multiple computed tomographic images of the left hip were obtained at 2.5 mm intervals using 2.5 mm thick slices in the axial projection. Coronal and sagittal reconstructions were obtained. Radiation dose: Total exam DLP: 411.23 FINDINGS: There is no evidence of left hip fracture, dislocation, or significant degenerative disease. The visualized portion of left hemipelvis appears intact. There is subcutaneous fatty stranding of the left gluteal/left hip area. Muscular soft tissue fascial planes are preserved. CT/Extremity Lower without Contra IMPRESSION: No evidence of left hip fracture, dislocation, or significant degenerative disease. Subcutaneous fatty stranding of the left gluteal/hip area. Electronically Signed: Cliff Dailey MD at 18:10 EDT , Service support ,
--- NOTE | 2019-01-02 16:42 | CHAPLAIN ---
Type of Pastoral Visit _x__ Initial Visit ___ Follow-up Visit ___ On-call Visit ___ General Patient Visit ___ Spiritual Assessment ___ Family Conference ___ Bereavement ___ Rapid Response ___ Code Blue ___ Other (describe below) Pastoral Care Referral From _x__ Patient ___ Family ___ Nurse ___ Physician ___ Academic Adviser ___ Fagot Maker ___ Other (describe below) Sacrament/Intervention _x__ Active listening ___ Anointing ___ Muslim ___ Bereavement ___ Communion _x__ Guerline exploration ___ ___ Life review _x__ Prayer ___ Reconciliation ___ Sacrament of Sick _x__ Supportive presence ___ Wedding ___ Other (describe below) Pastoral Comments
[2019-01-02 17:51] LABS: Bedside Glucose 200 mg/dL (70-110)
[2019-01-02 17:58] LABS: Hemoglobin A1c 14.1 % (4.2-6.3)
[2019-01-02] MEDS: 0.9% NaCl Peripheral Flush Adult/Peds IV (19:52)
[2019-01-02] MEDS: Dextrose 50%-Water 25 GM/50 ML DISP.SYRIN IV (19:52)
[2019-01-02 20:16] LABS: Bedside Glucose 57 mg/dL (70-110)
[2019-01-02 20:36] LABS: Bedside Glucose 201 mg/dL (70-110)
[2019-01-02] MEDS: RisperiDONE 2 MG Tablet 4 MG PO (21:54)
[2019-01-02] MEDS: Atorvastatin Calcium 20 MG Tablet PO (21:55)
[2019-01-02 22:06] LABS: Bedside Glucose 324 mg/dL (70-110)
[2019-01-02 22:40] LABS: Bedside Glucose 338 mg/dL (70-110)
[2019-01-02 23:41] LABS: Bedside Glucose 400 mg/dL (70-110)
[2019-01-03] VITALS (13 sets, daily range): BP systolic 98–102; BP diastolic 46–65; PULSE 77–92; RESP 16–18; TEMP 36.9–37.1; O2SAT 92–100
--- NOTE | 2019-01-03 00:01 | RAD_ITS ---
STUDY: SWALLOWING STUDY REASON FOR EXAM: Female, 63 years old. Dysphagia. TECHNIQUE: The examination was performed with Speech Pathology in attendance. Under fluoroscopic observation, the patient ingested thin barium, thick barium, barium pudding, and barium coated cracker. FLUOROSCOPY TIME: 1:00 minutes/seconds. 2260 spot images were obtained. RADIOLOGIST INVOLVEMENT: Radiologist was present and providing direct supervision. COMPARISON: None. FINDINGS: The following was observed during swallowing of the various mixtures of barium: Thin Barium: Transit penetration with ingestion of thin liquids. There is complete ejection. Barium Pudding: There was no evidence of aspiration or laryngeal penetration. Barium Coated Cracker: There was no evidence of aspiration or laryngeal penetration. RAD/Swallowing Function w/Video IMPRESSION: Transient penetration with clearing upon ingestion of thin liquids. The swallow study findings were discussed with the patient by the speech pathologist at the conclusion of the examination. Please see speech pathology report for more information and recommendations. Electronically Signed: Uriah Weathers, at 13:31 EDT , Service support ,
[2019-01-03] MEDS: Insulin Lispro 100 UNIT/ML INSULN.PEN SC ×7 (00:08→17:01)
[2019-01-03 04:10] LABS: Bedside Glucose 304 mg/dL (70-110)
[2019-01-03 07:35] LABS: Bedside Glucose 233 mg/dL (70-110)
[2019-01-03] MEDS: Aspirin E.C. 81 MG Tablet PO (09:16)
[2019-01-03] MEDS: Lisinopril 5 MG Tablet PO (09:16)
[2019-01-03] MEDS: Metoprolol Tartrate 25 MG Tablet PO ×2 (09:16→21:47)
[2019-01-03] MEDS: Clopidogrel Bisulfate 75 MG Tablet PO (09:16)
[2019-01-03] MEDS: Furosemide 40 MG Tablet PO (09:16)
[2019-01-03] MEDS: Lithium Carbonate 300mg Capsule 300 MG PO ×2 (09:16→21:48)
[2019-01-03] MEDS: Pantoprazole Sodium 20 MG Tablet PO (09:16)
[2019-01-03 11:31] LABS: Bedside Glucose 231 mg/dL (70-110)
--- NOTE | 2019-01-03 12:50 | SP.MBSS_ITS ---
PRIMARY / SECONDARY DIAGNOSIS: dysphagia (R13.10) REFERRING PHYSICIAN: Dr. Jo Ann Sewell MD. CURRENT DIET: NPO pending results. DENTITION: edentulous MENTAL STATUS: sufficient for participation RESPIRATORY STATUS: O2 via room air REASON FOR REFERRAL: The Patient is a 63 year old male referred for a modified barium swallow (MBS) study to objectively assess the Patients oropharyngeal swallow function under fluoroscopy secondary to concerns for potential aspiration during PO intake ingestion; current stroke workup underway. MEDICAL HISTORY: Cerebral vascular accident, gastroesophageal reflux disease, chronic obstructive pulmonary disease, coronary artery disease, benign essential hypertension, hyperlipidemia, uncontrolled type 2 diabetes mellitus, tobacco abuse, non-ST elevated myocardial infarction. PREVIOUS MODIFIED BARIUM SWALLOW STUDY: none ADDITIONAL OBJECTIVE ASSESSMENT RESULTS: 01/01/2019 MRI revealed no MRI evidence for acute infarct; mild central and cortical involutional changes. 01/01/2019 CTA revealed normal [place] without a demonstrated aneurysm or hemodynamically significant stenosis. 01/01/2019 CXR revealed no acute abnormality. 01/11/2018 upper GI series unremarkable. ASSESSMENT PARAMETERS: The Patient participated in a Modified Barium Swallow (MBS) study on 01/03/2019. Dr. Weathers was the radiologist present for this evaluation. This study was recorded in the lateral view and images were sent to PACs for storage. Scoring was completed with each trial through the 8-point Penetration-Aspiration Scale (PAS), and summarized via the Modified Barium Swallow Impairment Profile (MBSImP) and Bolus Residue Scale (BRS), with severity scoring through the Swallowing Performance Scale (PSP), and recommended diet textures through the International Dysphagia Diet Standardisation Initiative (IDDSI) RESULTS OF THE EVALUATION: The Patient presents with mild to moderate oropharyngeal dysphagia (R13.12) with intermittent transient penetration of thin liquids. OBJECTIVE ASSESSMENT OF SWALLOW FUNCTION (QUANTITATIVE ? PER TRIAL): PENETRATION / ASPIRATION SCALE (WILLS): 1 = does not enter airway 2 = enters airway/above vocal folds/ejected 3 = enters airway/above vocal folds/not ejected 4 = enters airway/contacts vocal folds/ejected 5 = enters airway/contacts vocal folds/not ejected 6 = enters airway/below vocal folds/ejected 7 = enters airway/below vocal folds/not ejected despite effort 8 = enters airway/below vocal folds/no effort PENETRATION / ASPIRATION SCALE (PAS) SCORE: Thin liquid - 5 mL tsp.: 1 Thin liquids via cup (single sip): 1* Thin liquids via cup (single sip): 2 Thin liquids via cup (single sip): 1* Thin liquids via cup (sequential swallows): 1 Pudding via spoon: 1 Regular textured cookie: 1 Thin liquids via straw (sequential swallows): 2 Thin liquids via straw (effort swallow): 1 Thin liquids via straw (effort swallow): 1 * images not captured upon review in PACS OBJECTIVE ASSESSMENT OF SWALLOW FUNCTION (QUANTITATIVE ? AGGREGATE): MODIFIED BARIUM SWALLOW IMPAIRMENT PROFILE (MBSImP) LABIAL SEAL: 0 (of 4) no labial escape TONGUE CONTROL DURING MANIPULATION: 2 (of 3) posterior escape < 50% BOLUS PREPARATION / MASTICATION: 1 (of 3) slow prolonged; complete recollection BOLUS TRANSPORT / LINGUAL MOTION: 0 (of 4) brisk tongue motion ORAL RESIDUE: 1 (of 4) trace residue lining oral structures INITIATION OF PHARYNGEAL SWALLOW: 3 (of 4) bolus head in pyriforms SOFT PALATE ELEVATION: 0 (of 4) no bolus between soft palate & pharyngeal wall LARYNGEAL ELEVATION: 1 (of 3) partial ANTERIOR HYOID EXCURSION: 1 (of 2) partial movement EPIGLOTTIC MOVEMENT: 1 (of 2) partial LARYNGEAL VESTIBULE CLOSURE: 0 (of 2) complete PHARYNGEAL STRIPPING WAVE: 0 (of 2) present / complete PE SEGMENT OPENIN (of 3) partial distension / duration / obstruction TONGUE BASE RETRACTION: 1 (of 4) trace column of contrast PHARYNGEAL RESIDUE: 2 (of 4) collection of residue ESOPHAGEAL BOLUS CLEARANCE: could not view BOLUS RESIDUE SCALE (BRS): 4 (of 6) residue in valleculae and pyriform sinus SWALLOWING PERFORMANCE SCALE (SPS): 4 (mild to moderate) OBJECTIVE ASSESSMENT OF SWALLOW FUNCTION (QUALITATIVE): ORAL PREPARATORY PHASE: oral preparatory phase marked by mild (albeit effective) mastication inefficiency associated with edentulous status; sufficient oral containment; preserved management of breathing / bolus formation without disrupted E ? S ? E pattern ORAL TRANSITIONAL PHASE: oral transitional phase appears unremarkable; no presence of transitional incompetence; no bolus consolidation impairments; sufficient oral containment across textures with mild posterior bolus loss noted on one occasion; PHARYNGEAL PHASE: pharyngeal phase marked by mild pharyngeal phase delay / dyssynchrony; mild reduction in hyolaryngeal excursion and duration resulting in suboptimal laryngeal vestibule closure / pressure / duration, that was somewhat inconsistent; sufficient / consistent laryngeal vestibule pressure generated to expel penetrated material; mild pharyngeal dysmotility during ingestion of thin liquids associated with a mild reduction in pharyngoesophageal segment relaxation and reduced anterior hyoid excursion (ameliorated with an effortful swallow); no signs of velopharyngeal impairments; occasional transient penetration (prandial) with thin liquids (ameliorated with reduction in bolus volume and execution of the effort swallow); no aspiration throughout trials. ESOPHAGEAL PHASE: no obvious esophageal phase abnormalities observed. CONTRIBUTING / COMPLICATING FACTORS AND NOTABLE FINDINGS: Prominent cricopharyngeal bar located at the C-6 level, minimal to no impact on pharyngeal motility or pharyngeal timing. Noted calcification throughout the laryngeal vestibule, did not significantly impact image quality. All deficits ameliorated with reduction in bolus rate / volume adjustments, and execution of a 3 second preparatory swallow combined with an effort swallow. RECOMMENDATIONS AND CONSIDERATIONS: The Patient may benefit from 1-2 additional skilled speech-language intervention sessions targeting diet texture management and training / implementation of recommended compensatory strategies. Results and recommendations were discussed with the Patient immediately following MBS completion, with the Patient verbalizing understanding and agreement with all recommendations and education provided. DIET TEXTURE RECOMMENDATIONS: Will recommend a regular ? soft textured (IDDSI: 6), thin liquid diet (IDDSI: 0) diet RECOMMENDED COMPENSATORY STRATEGIES: Distant supervision, 3 second prep with effort swallow, reduced bolus volume / rate of ingestion, seated upright at 90 degrees during PO intake, remain upright for 30-60 minutes post meal (GERD precaution), medications one at a time with purees. IMAGE COUNT: [id number] Bj Villa M.A., CCC-BUNDLE WRAPPER MBSImP Certified, LSVT Certified [facility] Speech-Language Pathology Department [email or web address]
[2019-01-03] MEDS: Glimepiride 4 MG Tablet PO (13:34)
[2019-01-03] MEDS: Enoxaparin 40 MG/0.4 ML Syringe SC (13:34)
[2019-01-03] MEDS: metFORMIN HCl 1,000 MG Tablet 1000 MG PO (13:34)
[2019-01-03] MEDS: oxyCODONE 5 MG Tablet PO (13:40)
[2019-01-03 16:21] LABS: Bedside Glucose 227 mg/dL (70-110)
[2019-01-03] MEDS: Magnesium Hydroxide 30 ML UDC PO ×2 (17:03→19:53)
[2019-01-03] MEDS: 0.9% NaCl Peripheral Flush Adult/Peds IV (18:18)
[2019-01-03] MEDS: proMETHazine 25 MG/ML Syringe 6.25 MG IV (18:18)
--- NOTE | 2019-01-03 19:10 | PCM.PROGNOTE ---
Patient Problems: Active and Suspected Problems Stroke (Suspected) TIA (transient ischemic attack) (Suspected) Contusion of hip, left (Acute) Hyperglycemia due to type 2 diabetes mellitus (Acute) Left-sided weakness (Acute) Subjective: All events of the past 24 hours of been reviewed. She is afebrile. Vital signs are stable. She is 100% saturated on room air. Modified barium swallow today showed very mild penetration with thin liquids that cleared. She has been approved for a soft diet with thin liquids. She did ambulate to the BR today and walked 10 feet and then 75 feet with PT She continues to c/o pain in the left buttock but no radiation of the pain -CT scan of the left hip was negative for fracture there is evidence of subcutaneous stranding consistent with bruising in the left buttock. Denies cough, denies shortness of breath. Speech therapist recommends 1-2 more sessions with the speech therapist to reinforce need to sit upright with eating and small bites she is c/o constipation and has not moved her bowels since Objective: GENERAL: alert, oriented X 3, Cooperative, NAD ORAL: moist mucosa, no mucosal lesions NECK: No JVD, supple, trachea midline, no carotid bruits LUNGS: CTA, symmetric chest expansion HEART: RRR, Normal S1 and S2, no rub, no gallop, no murmur ABDOMEN: soft, NT, ND, BS present, no guarding with palpation EXTREMITIES: no edema, no cyanosis, no calf tenderness SKIN: No rashes, no breakdown NEUROLOGIC: no focal neurologic deficits, cranial nerves II through XII are grossly intact, 5/5 strength throughout PSYCH: appropriate, normal affect, pleasant, better energy today and the affect is more upbeat - Physical Exam Vital Signs Temp Pulse Resp BP Pulse Ox 98.4 F 87 18 98/46 L 100 01/03/19 15:18 01/03/19 15:18 01/03/19 15:18 01/03/19 15:18 01/03/19 15:18 Oxygen Flow Rate (L/min) 2 Oxygen Delivery Method Room Air Weight: 143 lb 11.862 oz Body Mass Index (BMI) 25.4 Finger Stick Blood Glucose 453 Intake and Output for Last 24 Hours 01/01/19 01/02/19 01/03/19 23:59 23:59 23:59 Intake Total 220 / 220 580 / 580 600 / 600 Output Total 2100 / 2100 0 / 0 Balance 220 / 220 -1520 / -1520 600 / 600 POC Glucose 01/03/19 01/03/19 01/03/19 15:47 11:22 07:29 POC Glucose 227 H 231 H 233 H 01/03/19 01/02/19 01/02/19 03:46 23:36 22:34 POC Glucose 304 H 400 H 338 H 01/02/19 01/02/19 01/02/19 21:36 20:29 19:30 POC Glucose 324 H 201 H 57 L Medical Necessity - Tobacco Use Smoking Status: Former smoker Tobacco Use: Non-smoker Assessment/Plan All Active Problems Contusion of hip, left (Acute) Hyperglycemia due to type 2 diabetes mellitus (Acute) Left-sided weakness (Acute) Acute hyperglycemia (Acute) Chest pain (Resolved) VTE (venous thromboembolism) (Resolved) Impressions 1. Left hip pain post fall - no fracture on plain XRAY of the hip. 2. subjective numbness of the left face and Left leg........no focal neurologic deficits on PE and negative MRI. Conversion disorder. 3. BPD - on Risperdal and Seroquel but, Seroquel is NOT in her prepackaged pills 4. tobacco dependence 5. Type 2 diabetes mellitus-uncontrolled with hemoglobin A1c of 14.1 6. Subtherapeutic lithium level 7. GERD 8. Hypertension 9. Hyperlipidemia 10. Coronary artery disease with history of PTCA/ROMEL to the LAD 11. COPD 12. Patient failed her bedside evaluation by the speech therapist-made n.p.o. and will schedule modified barium swallow in the a.m. 13. Constipation 14. Dysphagia We discussed the need for better diet control. 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 Will get a consult with the optical laboratory technician for education. I explained to her that the reason she gets constipated is she gets dehydrated from polyuria due to uncontrolled BS's. I explained that the HGBA1C is 14.1 and ideally should be 7 or less. Restarted on a diet. Restart oral hypoglycemic agents. I suspect she could be controlled on oral agents if she was just compliant with the diet. [facility] Outreach at [place]? Will discuss with the [facility] tomorrow Code Visit Inpatient E&M: 75145 Subs Hosp L2
--- NOTE | 2019-01-03 19:14 | PN_ITS ---
Patient Problems: Active and Suspected Problems Stroke (Suspected) TIA (transient ischemic attack) (Suspected) Contusion of hip, left (Acute) Hyperglycemia due to type 2 diabetes mellitus (Acute) Left-sided weakness (Acute) Subjective: All events of the past 24 hours of been reviewed. She is afebrile. Vital signs are stable. She is 100% saturated on room air. Modified barium swallow today showed very mild penetration with thin liquids that cleared. She has been approved for a soft diet with thin liquids. She did ambulate to the BR today and walked 10 feet and then 75 feet with PT She continues to c/o pain in the left buttock but no radiation of the pain -CT scan of the left hip was negative for fracture there is evidence of subcutaneous stranding consistent with bruising in the left buttock. Denies cough, denies shortness of breath. Speech therapist recommends 1-2 more sessions with the speech therapist to viry nforce need to sit upright with eating and small bites she is c/o constipation and has not moved her bowels since Objective: GENERAL: alert, oriented X 3, Cooperative, NAD ORAL: moist mucosa, no mucosal lesions NECK: No JVD, supple, trachea midline, no carotid bruits LUNGS: CTA, symmetric chest expansion HEART: RRR, Normal S1 and S2, no rub, no gallop, no murmur ABDOMEN: soft, NT, ND, BS present, no guarding with palpation EXTREMITIES: no edema, no cyanosis, no calf tenderness SKIN: No rashes, no breakdown NEUROLOGIC: no focal neurologic deficits, cranial nerves II through XII are grossly intact, 5/5 strength throughout PSYCH: appropriate, normal affect, pleasant, better energy today and the affect is more upbeat - Physical Exam Vital Signs Temp Pulse Resp BP Pulse Ox 98.4 F 87 18 98/46 L 100 01/03/19 15:18 01/03/19 15:18 01/03/19 15:18 01/03/19 15:18 01/03/19 15:18 Oxygen Flow Rate (L/min) 2 Oxygen Delivery Method Room Air Weight: 143 lb 11.862 oz Body Mass Index (BMI) 25.4 Finger Stick Blood Glucose 453 Intake and Output for Last 24 Hours 01/01/19 01/02/19 01/03/19 23:59 23:59 23:59 Intake Total 220 / 220 580 / 580 600 / 600 Output Total 2100 / 2100 0 / 0 Balance 220 / 220 -1520 / -1520 600 / 600 POC Glucose 01/03/19 01/03/19 01/03/19 15:47 11:22 07:29 POC Glucose 227 H 231 H 233 H 01/03/19 01/02/19 01/02/19 03:46 23:36 22:34 POC Glucose 304 H 400 H 338 H 01/02/19 01/02/19 01/02/19 21:36 20:29 19:30 POC Glucose 324 H 201 H 57 L Medical Necessity - Tobacco Use Smoking Status: Former smoker Tobacco Use: Non-smoker Assessment/Plan All Active Problems Contusion of hip, left (Acute) Hyperglycemia due to type 2 diabetes mellitus (Acute) Left-sided weakness (Acute) Acute hyperglycemia (Acute) Chest pain (Resolved) VTE (venous thromboembolism) (Resolved) Impressions 1. Left hip pain post fall - no fracture on plain XRAY of the hip. 2. subjective numbness of the left face and Left leg........no focal neurologic deficits on PE and negative MRI. Conversion disorder. 3. BPD - on Risperdal and Seroquel but, Seroquel is NOT in her prepackaged pills 4. tobacco dependence 5. Type 2 diabetes mellitus-uncontrolled with hemoglobin A1c of 14.1 6. Subtherapeutic lithium level 7. GERD 8. Hypertension 9. Hyperlipidemia 10. Coronary artery disease with history of PTCA/ROMEL to the LAD 11. COPD 12. Patient failed her bedside evaluation by the speech therapist-made n.p.o. and will schedule modified barium swallow in the a.m. 13. Constipation 14. Dysphagia We discussed the need for better diet control. 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 Will get a consult with the food and beverage coordinator for education. I explained to her that the reason she gets constipated is she gets dehydrated from polyuria due to uncontrolled BS's. I explained that the HGBA1C is 14.1 and ideally should be 7 or less. Restarted on a diet. Restart oral hypoglycemic agents. I suspect she could be controlled on oral agents if she was just compliant with the diet. [facility] [place]? Will discuss with the [facility] [place] tomorrow Code Visit Inpatient E&M: [id number] Subs Hosp L2
[2019-01-03] MEDS: Polyethylene Glycol 3350 17 GM PACKET PO (19:53)
[2019-01-03 20:01] LABS: Bedside Glucose 113 mg/dL (70-110)
[2019-01-03] MEDS: RisperiDONE 2 MG Tablet 4 MG PO (21:47)
[2019-01-03] MEDS: Atorvastatin Calcium 20 MG Tablet PO (21:48)
[2019-01-03 22:56] LABS: Bedside Glucose 139 mg/dL (70-110)
[2019-01-04] VITALS (14 sets, daily range): BP systolic 94–129; BP diastolic 52–63; PULSE 75–103; RESP 16; TEMP 36.6–37.1; O2SAT 96–100
[2019-01-04] MEDS: Insulin Lispro 100 UNIT/ML INSULN.PEN SC ×7 (00:27→21:31)
[2019-01-04 00:35] LABS: Bedside Glucose 190 mg/dL (70-110)
[2019-01-04 04:51] LABS: Bedside Glucose 153 mg/dL (70-110)
[2019-01-04] MEDS: metFORMIN HCl 1,000 MG Tablet 1000 MG PO ×2 (07:50→15:52)
[2019-01-04] MEDS: Clopidogrel Bisulfate 75 MG Tablet PO (07:50)
[2019-01-04] MEDS: Glimepiride 4 MG Tablet PO (07:50)
[2019-01-04] MEDS: Furosemide 40 MG Tablet PO (07:50)
[2019-01-04] MEDS: Lithium Carbonate 300mg Capsule 300 MG PO ×2 (07:50→21:32)
[2019-01-04] MEDS: Aspirin E.C. 81 MG Tablet PO (07:50)
[2019-01-04] MEDS: Metoprolol Tartrate 25 MG Tablet PO ×2 (07:50→21:32)
[2019-01-04] MEDS: Enoxaparin 40 MG/0.4 ML Syringe SC (07:51)
[2019-01-04] MEDS: Pantoprazole Sodium 20 MG Tablet PO (07:51)
[2019-01-04] MEDS: Lisinopril 5 MG Tablet PO (07:51)
[2019-01-04 08:15] LABS: Bedside Glucose 104 mg/dL (70-110)
[2019-01-04 12:00] LABS: Bedside Glucose 316 mg/dL (70-110)
--- NOTE | 2019-01-04 15:20 | CASEMGMT ---
Pt just worked with therapy and per MAYA Brown, she is recommending further skilled therapy for pt at this time. This RN CM to room to discuss with pt at this time and pt states she is interested in going to SNF at this time d/t inability to move left leg. Pt states she would like [facility] at this time and [facility] at this time, voices understanding. Tracy SOMERS CM
--- NOTE | 2019-01-04 15:42 | CASEMGMT ---
Patient wants to go to [facility] at d/c. NIKHIL called [facility] with referral. NIKHIL also faxed referral. RN CM let patient know NIKHIL made referral and NIKIHL will talk with her tomorrow when [facility] gets back with NIKHIL. Carmen WADE MSW
[2019-01-04 15:56] LABS: Bedside Glucose 126 mg/dL (70-110)
--- NOTE | 2019-01-04 20:02 | PCM.PROGNOTE ---
Subjective: All events the past 24 hours been reviewed. Vital signs are stable. She is 97% saturated on room air. Blood sugars are for the most part very well controlled, blood sugar was 316 today but we suspect her family brought her food. She met with the dietitian today. She saw speech therapy and continues to complain of food getting stuck near the sternal notch. She would like this evaluated with endoscopy while she is here.......I told her we could do a barium esophagram first. She was able to walk 100 feet with an assisted device but when attempting to ambulate without a wheeled walker she was only able to ambulate 5 feet and she kept losing her balance to the left. PT recommends SNF at [place] and the pt is agreeable - Physical Exam General: Alert, Oriented x3, Cooperative, No apparent distress HEENT: PERRLA, EOMI Oral: Moist Mucosa Lungs: Clear to auscultation, Diminished Cardiovascular: Regular rate, Regular Rhythm, Normal S1, Normal S2 Abdomen: Bowel Sounds Present, Soft, Non Tender, Non-Distended Extremities: No edema Neurological: Cranial nerves II-XII grossly intact, Neuro grossly intact Vital Signs Temp Pulse Resp BP Pulse Ox 98.6 F 75 16 129/62 H 97 01/04/19 19:50 01/04/19 19:50 01/04/19 19:50 01/04/19 19:50 01/04/19 19:50 Oxygen Flow Rate (L/min) 2 Oxygen Delivery Method Room Air Weight: 143 lb 11.862 oz Body Mass Index (BMI) 25.4 Finger Stick Blood Glucose 453 Intake and Output for Last 24 Hours 01/02/19 01/03/19 01/04/19 23:59 23:59 23:59 Intake Total 580 / 580 600 / 600 1200 / 1200 Output Total 2100 / 2100 0 / 0 Balance -1520 / -1520 600 / 600 1200 / 1200 POC Glucose 01/04/19 01/04/19 01/04/19 15:51 11:51 07:43 POC Glucose 126 H 316 H 104 01/04/19 01/04/19 01/03/19 04:34 00:25 21:43 POC Glucose 153 H 190 H 139 H Medical Necessity - Tobacco Use Smoking Status: Former smoker Tobacco Use: Non-smoker Assessment/Plan All Active Problems Dysphagia (Acute) Stroke (Ruled-out) Contusion of hip, left (Acute) Left-sided weakness (Acute) Chest pain (Resolved) VTE (venous thromboembolism) (Resolved) Impressions 1. Left hip pain post fall - no fracture on plain XRAY of the hip. 2. subjective numbness of the left face and Left leg........no focal neurologic deficits on PE and negative MRI. Conversion disorder. 3. BPD - on Risperdal and Seroquel but, Seroquel is NOT in her prepackaged pills 4. tobacco dependence 5. Type 2 diabetes mellitus-uncontrolled with hemoglobin A1c of 14.1 6. Subtherapeutic lithium level 7. GERD 8. Hypertension 9. Hyperlipidemia 10. Coronary artery disease with history of PTCA/ROMEL to the LAD 11. COPD 12. Patient failed her bedside evaluation by the speech therapist-made n.p.o. and will schedule modified barium swallow in the a.m. 13. Constipation 14. Dysphagia Barium esophagram and upper GI in the a.m. CT scan of the brain with contrast in the a.m. SNF at discharge Continue current insulin regimen Scheduled Tylenol 1 g p.o. every 8 hours for pain control and continue as needed oxycodone 5 mg
[2019-01-04] MEDS: Acetaminophen 500 MG Tablet 1000 MG PO (21:27)
[2019-01-04] MEDS: guaiFENesin 10 ML UDC (200MG/10ML) PO (21:28)
[2019-01-04] MEDS: Magnesium Hydroxide 30 ML UDC PO (21:28)
[2019-01-04] MEDS: Atorvastatin Calcium 20 MG Tablet PO (21:32)
[2019-01-04] MEDS: RisperiDONE 2 MG Tablet 4 MG PO (21:32)
[2019-01-04 22:56] LABS: Bedside Glucose 200 mg/dL (70-110)
[2019-01-05] VITALS (8 sets, daily range): BP systolic 102–131; BP diastolic 52–68; PULSE 69–91; RESP 16–18; TEMP 36.5–37; O2SAT 96–98
--- NOTE | 2019-01-05 05:55 | CT_ITS ---
STUDY: CT BRAIN WITH AND WITHOUT CONTRAST REASON FOR EXAM: Female, 63 years old. Left-sided weakness. RADIATION DOSAGE (If Supplied By Facility): CTDIvol = ( 60.81 ) mGy, DLP = ( 1135.50 ) mGycm TECHNIQUE: Transaxial CT imaging of the brain was performed pre and post contrast administration. The examination was performed with intravenous administration of 50 ml Isovue 370. Individualized dose optimization techniques were used for this CT. COMPARISON: CT of the head dated January 01, 2019. FINDINGS: Normal soft tissue structures. Normal calvarium. Normal size ventricles and extra-axial spaces for the patient's age. Normal white matter tracts of the cerebral hemispheres. There are small punctate calcifications of the basal ganglia which are seen in the aging brain as a normal variant. Tiny lucency in the left basal ganglia may be the result of an old infarct versus prominent pericardial mass space. There may be a left-sided choroidal fissural cyst. Normal brainstem. Normal cerebellum. There is no intracranial hemorrhage. There are no findings of an acute ischemic infarction. Normal visualized paranasal sinuses. CT/Brain/Head W/WO Contrast IMPRESSION: No CT evidence of acute intracranial hemorrhage. Electronically Signed: Blanca Marie MD at 9:36 EDT , Service support ,
--- NOTE | 2019-01-05 05:55 | RAD_ITS ---
STUDY: AIR-CONTRAST UPPER GI SERIES. REASON FOR EXAM: Female, 63 years old. Mid abdominal pain. History of uterine carcinoma. FLUOROSCOPY TIME (if supplied): (0:40) minutes/seconds. 12 images were obtained. TECHNIQUE: The patient ingested barium. Multiple images of the esophagus, stomach and duodenum were obtained. COMPARISON: Comparison is made with prior study dated January 11, 2018. FINDINGS: The esophagus is unremarkable. There is no evidence of obstruction. No mass lesion is seen. No gastroesophageal reflux is present. The stomach and duodenum are unremarkable there is no evidence of ulceration. No mass lesion is seen. RAD/Upper GI w/BA Swallow IMPRESSION: Unremarkable air contrast upper GI series. Electronically Signed: Uriah Weathers, at 12:16 EDT , Service support ,
[2019-01-05 06:50] LABS: Bedside Glucose 99 mg/dL (70-110)
--- NOTE | 2019-01-05 10:49 | CASEMGMT ---
Addendum entered by Carmen Franco 01/05/19 11:36: SW received a call from Lala at [facility] and she asked if patient smokes. SW spoke with patient and she does and she is ok with not smoking. SW left a message for Lala. SW then went back to patient's room per her request. She asked what they said. NIKHIL told her SW is waiting on them to call back. She asked if she could just go home. SW asked if she feels she is ok to return home. She said she feels like she is fine to go home. She did want home health and had no preference for agency. NIKHIL notified RN GIANCARLO. NIKHIL will also notify [facility]. Carmen LÓPEZ Original Note: NIKHIL called [facility] to see if they have decided whether or not they will accept patient. They are still looking at the referral. Carmen LÓPEZ
--- NOTE | 2019-01-05 11:19 | CASEMGMT ---
Per Radha TEJEDA, pt now wants to go home with HHC and not go to SNF and states no preference for HHC at this time. Call to [place] at [facility] and they are able to take pt at this time for PT/OT and will have a tuesday start of care. Order placed at this time. Pt/family updated, voice understanding at this time. Tracy SOMERS CM
[2019-01-05] MEDS: Glimepiride 4 MG Tablet PO (11:26)
[2019-01-05] MEDS: Lithium Carbonate 300mg Capsule 300 MG PO (11:26)
[2019-01-05] MEDS: Furosemide 40 MG Tablet PO (11:26)
[2019-01-05] MEDS: Lisinopril 5 MG Tablet PO (11:26)
[2019-01-05] MEDS: Clopidogrel Bisulfate 75 MG Tablet PO (11:26)
[2019-01-05] MEDS: metFORMIN HCl 1,000 MG Tablet 1000 MG PO ×2 (11:26→16:25)
[2019-01-05] MEDS: Metoprolol Tartrate 25 MG Tablet PO (11:26)
[2019-01-05] MEDS: Aspirin E.C. 81 MG Tablet PO (11:26)
[2019-01-05] MEDS: Insulin Lispro 100 UNIT/ML INSULN.PEN SC ×3 (11:27→16:23)
[2019-01-05] MEDS: Enoxaparin 40 MG/0.4 ML Syringe SC (11:27)
[2019-01-05] MEDS: Pantoprazole Sodium 20 MG Tablet PO (11:33)
[2019-01-05] MEDS: Polyethylene Glycol 3350 17 GM PACKET PO (11:33)
[2019-01-05 11:50] LABS: Bedside Glucose 266 mg/dL (70-110)
[2019-01-05] MEDS: Acetaminophen 500 MG Tablet 1000 MG PO (14:06)
--- NOTE | 2019-01-05 14:46 | CASEMGMT ---
Addendum entered by Carmen Franco 01/05/19 15:06: SW spoke with patient and let her know she was set up with [facility] Home Health. NIKHIL told her they will call her to set up a time to visit. Carmen LÓPEZ Original Note: NIKHIL called [facility] and left a message for Lala letting her know patient is now going home. Carmen LÓPEZ
--- NOTE | 2019-01-05 16:02 | PCM.DC ---
- Discharge Diagnoses Current Active Problems: Current Active and Chronic Problems Contusion of hip, left (Acute) Hyperglycemia due to type 2 diabetes mellitus (Acute) Left-sided weakness (Acute) You will use the following diet at home:: Calorie/Carbohydrate Controlled (specify 1200, 1400, etc), Cardiac Your food should be the consistency of: Regular Your liquids should be the consistency of: Regular/Thin Discharge Activity: Use Walker Weight Bearing Status: Full weight bearing Call your doctor if you observe: Fever of 101 or Higher, Dizziness, Fainting spells, Chest pain, Calf discomfort Additional Instructions: The upper GI you had on the day of discharge was normal. The repeat CT of the brain on the day od discharge showed no strokes again. You need to get the blood sugars under better control and that means you MUST stick to a good carb controlled diet. If the blood sugars remain uncontrolled you will have more strokes, heart attacks, kidney failure. Pending Tests on Discharge: none Allergies/Adverse Reactions: Allergies Penicillins Allergy (Verified 01/01/19 11:01) Hives morphine Adverse Reaction (Mild, Verified 01/01/19 11:01) Itching hydrocodone bitartrate [From Vicodin] Adverse Reaction (Verified 01/01/19 11:01) Vomiting ibuprofen Adverse Reaction (Verified 01/01/19 11:01) Vomiting Medications to take at Discharge Aspirin [Adult Low Dose Aspirin EC] 81 mg PO DAILY 02/04/16 Simvastatin [Zocor] 40 mg PO QHS 01/24/17 Clopidogrel Bisulfate [Plavix] 75 mg PO DAILY 06/23/17 Metoprolol Tartrate [Lopressor (beta elder)] 25 mg PO BID 06/23/17 Nitroglycerin [Nitrostat] 0.4 mg SUBLINGUAL Q5M PRN 09/28/17 Insulin Detemir [Levemir Flextouch] 26 unit SC QHS #1 insuln.pen 05/31/18 Cyclobenzaprine [Flexeril] 10 mg PO TID PRN #20 tablet 07/02/18 Risperidone [Risperdal] 4 mg PO QHS 09/14/18 [place] Carbonate [[place] Carbonate ER] 300 mg PO BID 10/26/18 Furosemide [Lasix] 40 mg PO DAILY 11/17/18 Lisinopril 5 mg PO DAILY 11/17/18 Metformin HCl 1,000 mg PO BID 11/17/18 Glimepiride [Amaryl] 4 mg PO DAILY 01/01/19 Omeprazole [Prilosec] 20 mg PO DAILY 01/01/19 Insulin Detemir [Levemir FlexPen] 30 units SC BREAKFAST #0 01/05/19 Polyethylene Glycol 3350 [Miralax] 17 gm PO DAILY #30 packet 01/05/19 The following prescriptions were given: Polyethylene Glycol 3350 [Miralax] 17 gm PO DAILY #30 packet Primary Care Physician: Monster Salcedo MD [Primary Care Provider] - Please follow up with your Primary Care Physician in: 1-2 weeks Test Results: Test results from this visit will be discussed in further detail at your follow-up appointment, if applicable. Proposed Discharge Date: 01/05/19
--- NOTE | 2019-01-05 16:08 | DCINST_ITS ---
- Discharge Diagnoses Current Active Problems: Current Active and Chronic Problems Contusion of hip, left (Acute) Hyperglycemia due to type 2 diabetes mellitus (Acute) Left-sided weakness (Acute) You will use the following diet at home:: Calorie/Carbohydrate Controlled (specify 1200, 1400, etc), Cardiac Your food should be the consistency of: Regular Your liquids should be the consistency of: Regular/Thin Discharge Activity: Use Walker Weight Bearing Status: Full weight bearing Call your doctor if you observe: Fever of 101 or Higher, Dizziness, Fainting spells, Chest pain, Calf discomfort Additional Instructions: The upper GI you had on the day of discharge was normal. The repeat CT of the brain on the day od discharge showed no strokes again. You need to get the blood sugars under better control and that means you MUST stick to a good carb controlled diet. If the blood sugars remain uncontrolled you will have more strokes, heart attacks, kidney failure. Pending Tests on Discharge: none Allergies/Adverse Reactions: Allergies Penicillins Allergy (Verified 01/01/19 11:01) Hives morphine Adverse Reaction (Mild, Verified 01/01/19 11:01) Itching hydrocodone bitartrate [From Vicodin] Adverse Reaction (Verified 01/01/19 11:01) Vomiting ibuprofen Adverse Reaction (Verified 01/01/19 11:01) Vomiting Medications to take at Discharge Aspirin [Adult Low Dose Aspirin EC] 81 mg PO DAILY 02/04/16 Simvastatin [Zocor] 40 mg PO QHS 01/24/17 Clopidogrel Bisulfate [Plavix] 75 mg PO DAILY 06/23/17 Metoprolol Tartrate [Lopressor (beta elder)] 25 mg PO BID 06/23/17 Nitroglycerin [Nitrostat] 0.4 mg SUBLINGUAL Q5M PRN 09/28/17 Insulin Detemir [Levemir Flextouch] 26 unit SC QHS #1 insuln.pen 05/31/18 Cyclobenzaprine [Flexeril] 10 mg PO TID PRN #20 tablet 07/02/18 Risperidone [Risperdal] 4 mg PO QHS 09/14/18 [place] Carbonate [[place] Carbonate ER] 300 mg PO BID 10/26/18 Furosemide [Lasix] 40 mg PO DAILY 11/17/18 Lisinopril 5 mg PO DAILY 11/17/18 Metformin HCl 1,000 mg PO BID 11/17/18 Glimepiride [Amaryl] 4 mg PO DAILY 01/01/19 Omeprazole [Prilosec] 20 mg PO DAILY 01/01/19 Insulin Detemir [Levemir FlexPen] 30 units SC BREAKFAST #0 01/05/19 Polyethylene Glycol 3350 [Miralax] 17 gm PO DAILY #30 packet 01/05/19 The following prescriptions were given: Polyethylene Glycol 3350 [Miralax] 17 gm PO DAILY #30 packet Primary Care Physician: Monster Salcedo MD [Primary Care Provider] - Please follow up with your Primary Care Physician in: 1-2 weeks Test Results: Test results from this visit will be discussed in further detail at your follow- up appointment, if applicable. Proposed Discharge Date: 01/05/19
--- NOTE | 2019-01-05 16:10 | PCM.DC.SUM ---
Discharge Date and Diagnosis Date of Admission: 01/01/19 Date of Discharge: 01/05/19 - Primary Discharge Diagnosis Dysphagia (Acute) TIA (transient ischemic attack) (Suspected) Contusion of hip, left (Acute) Left-sided weakness (Acute) - Secondary Discharge Diagnosis Chronic Problems Constipation (Chronic) Bipolar disorder (Chronic) CVA (cerebral vascular accident) (Chronic) Acute hyperglycemia (Chronic) GERD (gastroesophageal reflux disease) (Chronic) Uncontrolled type 2 diabetes mellitus (Chronic) Benign essential hypertension (Chronic) Hyperlipidemia (Chronic) Coronary artery disease (Chronic) ROMEL LAD 01/21 COPD (chronic obstructive pulmonary disease) (Chronic) cont smoking Tobacco abuse (Chronic) Hospital Course and Treatment Imaging Results: Clinical Impression(s) from Imaging Studies Head CTA 01/01/19 10:35 IMPRESSION: Normal unenhanced and enhanced CT scan of the brain. Electronically Signed: Uriah Weathers, at 11:23 EDT , Service support , ADDENDUM: 01/01/19 1131 IMPRESSION: Normal unenhanced and enhanced CT scan of the brain. N.B. : The above information has been verbally conveyed by Uriah Weathers to Cezar Lee on 01/01/2019 11:24:30 (ET). Electronically Signed: Uriah Weathers, at 11:23 EDT , Service support , ADDENDUM: 01/01/19 1444 IMPRESSION: Normal unenhanced and enhanced CT scan of the brain. N.B. : The above information has been verbally conveyed by Uriah Weathers to Cezar Lee on 01/01/2019 11:24:30 (ET). Electronically Signed: Uriah Weathers, at 11:23 EDT , Service support , Neck CTA 01/01/19 10:35 IMPRESSION: 1. Bilateral hemodynamically insignificant carotid stenoses by NASCET criteria. 2. Approximate 40% stenosis of the proximal left common carotid artery. 3. Normal vertebral arteries. Electronically Signed: Nico DenverDO phil at 11:23 EDT Tel [phone], Service support , ADDENDUM: 01/01/19 1133 IMPRESSION: 1. Bilateral hemodynamically insignificant carotid stenoses by NASCET criteria. 2. Approximate 40% stenosis of the proximal left common carotid artery. 3. Normal vertebral arteries. N.B. : The above information has been verbally conveyed by Nico Qiu DO to Parker Aldana MD, on 01/01/2019 11:26:43 (ET). Electronically Signed: Nico DenverDO phil at 11:23 EDT Tel [phone], Service support , Brain CT 01/01/19 10:[address]: [address] evidence of intracranial bleeding, acute ischemic infarct or acute intracranial abnormality at this time. 2. No interval changes when compared to 10/05/2018. N.B. : The above information has been verbally conveyed by Baldo Millan MD to Dr. Saige MD, on 01/01/2019 11:21:26 (ET). Electronically Signed: Baldo Millan MD at 11:21 EDT , Service support , ADDENDUM: 01/01/19 1128 IMPRESSION: 1. No CT evidence of intracranial bleeding, acute ischemic infarct or acute intracranial abnormality at this time. 2. No interval changes when compared to 10/05/2018. N.B. : The above information has been verbally conveyed by Baldo Millan MD to Dr. Saige MD, on 01/01/2019 11:21:26 (ET). Electronically Signed: aBldo Millan MD at 11:21 EDT , Service support , Chest X-Ray 01/01/19 10:36 IMPRESSION: No acute abnormality seen. Electronically Signed: Uriah Summersicelli, at 11:31 EDT , Service support , Hip X-Ray 01/01/19 10:38 IMPRESSION: Normal x-ray examination of the hip. Electronically Signed: Uriah Weathers, at 11:34 EDT , Service support , Head CTA 01/01/19 14:39 IMPRESSION: Normal [place] without a demonstrated aneurysm or hemodynamically significant stenosis. Electronically Signed: Uriah Weathers, at 15:30 EDT , Service support , Brain MRI 01/01/19 17:28 IMPRESSION: No MRI evidence for acute infarct Mild central and cortical involutional changes Electronically Signed: Ran Velarde, at 23:16 EDT Tel , Service support , ADDENDUM: 01/04/[address] 01/02/19 16:28 IMPRESSION: No evidence of left hip fracture, dislocation, or significant degenerative disease. Subcutaneous fatty stranding of the left gluteal/hip area. Electronically Signed: Cliff Dailey MD at 18:10 EDT , Service support , Videofluoroscopic Swallow 01/03/19 00:01 IMPRESSION: Transient penetration with clearing upon ingestion of thin liquids. The swallow study findings were discussed with the patient by the speech pathologist at the conclusion of the examination. Please see speech pathology report for more information and recommendations. Electronically Signed: Uriah Weathers, at 13:31 EDT , Service support , Brain CT 01/05/19 05:55 IMPRESSION: No CT evidence of acute intracranial hemorrhage. Electronically Signed: Blanca Marie MD at 9:36 EDT , Service support , Upper GI/Barium Swallow X-Ray 01/05/19 05:55 IMPRESSION: Unremarkable air contrast upper GI series. Electronically Signed: Uriah Sarahy, at 12:16 EDT , Service support , Dr. Lucas Miller - Neurology Operations: None Procedures: None Summary of Care Provided: The patient is a 63 year old F with a PMH of BPD, CVA, HLD, HTN, DM II and CAD who presented to the Ed at [facility] with c/o altered mental status, Left side weakness and a fall. Non-contrasted CTB in the ED was negative. CTA of the head and the neck showed no significant areas of stenosis. An XRAY of the left hip showed no fracture. She was admitted to a monitored bed on PCU and Stroke protocol was initiated. she was seen by PT/OT/ST and also by Dr. Miller. Dr. Miller found no focal neurologic deficits. MRI of the brain showed no acute findings. ST felt the patient had dysphagia and scheduled her or a MBS. This showed transient penetration and then clearing of thin liquids. She was approved for a mechanical soft diet an thin liquids and was instructed to sit upright at 90 degrees when eating, take small bites and not lie down for at least 30 minutes after eating. She continued to c/o severe left hip pain and would not ambulate. A CT of the hip was obtained and there was no fracture but there was stranding in the left buttock consistent with soft tissue injury. PT continued to encourage her to walk. She was able to ambulate 100 ft with a FWW but, without the walker she was only able to walk 5 feet an kept losing her balance. PT recommended SNF and the pt was agreeable. The SW made arrangements but, on the day of DC she decided to go home instead. She was seen by the ammonium nitrate neutralizer for education while in the hospital and the insulin regimen was adjusted. BS's were sometimes very erratic and I think her family was bringing food in for her. Smoking cessation was encouraged and she was given literature for where to get hep for smoking cessation. She was discharged home and instructed to keep a blood sugar record to bring to Dr. Salcedo at her next office visit in 1-2 weeks. Alert and oriented X 3, NAD Lungs - diminished but CTA H - RRR with no gallop Abd - soft, NT, ND, + BS in all quadrants no edema Non-focal neuro exam. - Physical Exam Vital Signs Temp Pulse Resp BP Pulse Ox 98.6 F 85 16 131/68 H 98 01/05/19 11:00 01/05/19 14:58 01/05/19 11:00 01/05/19 11:00 01/05/19 11:00 Oxygen Flow Rate (L/min) 2 Oxygen Delivery Method Room Air Weight: 143 lb 11.862 oz Body Mass Index (BMI) 25.4 Finger Stick Blood Glucose 453 Intake and Output for Last 24 Hours 01/03/19 01/04/19 01/05/19 23:59 23:59 23:59 Intake Total 600 / 600 1200 / 1200 240 / 240 Output Total 0 / 0 Balance 600 / 600 1200 / 1200 240 / 240 POC Glucose 01/05/19 01/05/19 01/04/19 11:23 06:44 21:29 POC Glucose 266 H 99 200 H Discharge Activity: Use Walker Weight Bearing Status: Full weight bearing Call your doctor if you observe: Fever of 101 or Higher, Dizziness, Fainting spells, Chest pain, Calf discomfort Home Medications: Medications to take at Discharge Aspirin [Adult Low Dose Aspirin EC] 81 mg PO DAILY 02/04/16 Simvastatin [Zocor] 40 mg PO QHS 01/24/17 Clopidogrel Bisulfate [Plavix] 75 mg PO DAILY 06/23/17 Metoprolol Tartrate [Lopressor (beta elder)] 25 mg PO BID 06/23/17 Nitroglycerin [Nitrostat] 0.4 mg SUBLINGUAL Q5M PRN 09/28/17 Insulin Detemir [Levemir Flextouch] 26 unit SC QHS #1 insuln.pen 05/31/18 Cyclobenzaprine [Flexeril] 10 mg PO TID PRN #20 tablet 07/02/18 Risperidone [Risperdal] 4 mg PO QHS 09/14/18 Filer Carbonate [Filer Carbonate ER] 300 mg PO BID 10/26/18 Furosemide [Lasix] 40 mg PO DAILY 11/17/18 Lisinopril 5 mg PO DAILY 11/17/18 Metformin HCl 1,000 mg PO BID 11/17/18 Glimepiride [Amaryl] 4 mg PO DAILY 01/01/19 Omeprazole [Prilosec] 20 mg PO DAILY 01/01/19 Insulin Detemir [Levemir FlexPen] 30 units SC BREAKFAST #0 01/05/19 Polyethylene Glycol 3350 [Miralax] 17 gm PO DAILY #30 packet 01/05/19 Following Prescrptions Were Given to Patient: Polyethylene Glycol 3350 [Miralax] 17 gm PO DAILY #30 packet Primary Care Physician: Monster Salcedo MD [Primary Care Provider] - Please follow up with your Primary Care Physician in: 1-2 weeks Minutes spent on discharge:: 35 Patient Condition:: Stable Medical Necessity - Tobacco Use Smoking Status: Current every day smoker Tobacco Use: Cigarettes Meaningful Use Info Meaningful Use Diagnoses (Choose all that apply): None applicable Code Visit Inpatient E&M: 46630 Disch Hosp
[2019-01-05 16:21] LABS: Bedside Glucose 98 mg/dL (70-110)
== END 2019-01-05 16:40 | disposition home or self-care (01) | DRG 880 ==
LOC: ED 13:00 → PCU 13:43
PROVIDERS: Hospitalist; Admitting Provider Internal Medicine; Emergency Provider Emergency Medicine; Family Provider Family Medicine; PCP Family Medicine; Referring Provider Internal Medicine; Visit Provider Internal Medicine
DX: F44.4 Conversion disorder with motor symptom or deficit (principal); S70.02XA Contusion of left hip, initial encounter; W06.XXXA Fall from bed, initial encounter; Y93.89 Activity, other specified; Y92.009 Unspecified place in unspecified non-institutional (private) residence as the place of occurrence of the external cause; I25.10 Atherosclerotic heart disease of native coronary artery without angina pectoris; I10 Essential (primary) hypertension; E78.5 Hyperlipidemia, unspecified; K59.00 Constipation, unspecified; F31.9 Bipolar disorder, unspecified; E11.65 Type 2 diabetes mellitus with hyperglycemia; J44.9 Chronic obstructive pulmonary disease, unspecified; K21.9 Gastro-esophageal reflux disease without esophagitis; Z95.5 Presence of coronary angioplasty implant and graft; Z79.82 Long term (current) use of aspirin; Z79.01 Long term (current) use of anticoagulants; Z79.4 Long term (current) use of insulin; Z79.899 Other long term (current) drug therapy; Z87.891 Personal history of nicotine dependence; Z86.73 Personal history of transient ischemic attack (TIA), and cerebral infarction without residual deficits
CPT/HCPCS: 36415; 70450; 70460; 70470; 70496; 70498; 70551; 71045; 73502; 73700; 74230; 74246; 80048; 80061; 80178; 82947; 82962; 83036; 84484; 85025; 85610; 85730; 92526; 92610; 92611; 93005; 97110; 97162; 97166; 97530; 97803; 99285; J7030; J7040; Q9967; 90686; A4216

== ENCOUNTER → 2019-02-16 | Outpatient (CLI) | payer MEDICARE, SELFPAY ==
[2017-03-16 08:30] VITALS: BMI 29.2
[2019-01-02 23:18] VITALS: BMI 25.4
--- NOTE | 2019-02-16 15:07 | RAD_ITS ---
STUDY: X-RAY - LUMBAR SPINE REASON FOR EXAM: Female, 63 years old. Facet arthropathy. TECHNIQUE: 5 view(s) of the lumbar spine were obtained. COMPARISON: 02/24/2015. FINDINGS: Normal lumbar lordosis. There is no substantial scoliosis. There is a normal alignment of the vertebrae. Normal vertebral bodies and endplates. Mild L2-L3 disc space height narrowing. Normal remain Jose disc space heights. No acute fracture. Atherosclerotic calcifications along the abdominal aorta. RAD/L/S Spine Min 4 Views IMPRESSION: 1. No acute fracture or acute osseous abnormality of the lumbar spine. 2. Mild L2-L3 degenerative disc space height narrowing. 3. No interval change when compared to 02/24/2015. Electronically Signed: Baldo Millan MD at 14:04 EDT , Service support ,
--- NOTE | 2019-02-16 15:10 | RAD_ITS ---
STUDY: X-RAY - SACROILIAC JOINTS REASON FOR EXAM: Female, 63 years old. Facet arthropathy. No signs and symptoms were provided. TECHNIQUE: 3 view(s) of the sacroiliac joints were obtained. COMPARISON: CT of the abdomen and pelvis 12/22/2018. FINDINGS: Minimal sclerosis on the iliac side of the SI joints. Normal visualized sacral ala and sacrum. Normal visualized iliac bones. Normal visualized soft tissue structures. RAD/S-I Jts 3 or More Views IMPRESSION: Mild sacroiliitis but unchanged when compared to CT of the pelvis of 12/22/2018. Electronically Signed: Baldo Millan MD at 14:08 EDT , Service support ,
== END | disposition home or self-care (01) ==
PROVIDERS: Family Provider Family Medicine; PCP Family Medicine; Referring Provider Family Medicine; Visit Provider Family Medicine
DX: M47.819 Spondylosis without myelopathy or radiculopathy, site unspecified (principal); N39.0 Urinary tract infection, site not specified
CPT/HCPCS: 72110; 72202; 87086; 87088

== ENCOUNTER → 2019-02-27 | Outpatient (CLI) | payer MEDICARE, SELFPAY ==
[2017-03-16 08:30] VITALS: BMI 29.2
[2019-01-02 23:18] VITALS: BMI 25.4
[2019-02-27 18:18] LABS: Chlamydia Trachomatis by PCR Negative (Negative); Neisserai gonorrhoeae by PCR Negative (Negative); Probe Check PASS; Sample Adequacy Control PASS; Specimen Processing Control PASS
== END | disposition home or self-care (01) ==
LOC: LABSPEC 15:45
PROVIDERS: Family Provider Family Medicine; PCP Family Medicine; Referring Provider Family Medicine; Visit Provider Family Medicine
DX: R30.0 Dysuria (principal)
CPT/HCPCS: 87086; 87088; 87491; 87591

== ENCOUNTER 2019-03-12 19:08 | Emergency (ER) | payer MEDICARE, SELFPAY ==
[2017-03-16 08:30] VITALS: BMI 29.2
[2019-01-02 23:18] VITALS: BMI 25.4
[2019-03-12 19:09] VITALS: BP 180/72; PULSE 95; RESP 14; TEMP 37.4; O2SAT 100; BMI 25.8
--- NOTE | 2019-03-12 19:10 | ED.RN ---
RN CALLED FOR EKG, PULLED OLD EKGS FOR
--- NOTE | 2019-03-12 19:26 | EKG12_ITS ---
Test Reason : CP Blood Pressure : / mmHG Vent. Rate : 094 BPM Atrial Rate : 094 BPM P-R Int : 134 ms QRS Dur : 070 ms QT Int : 384 ms P-R-T Axes : 066 056 043 degrees QTc Int : 480 ms Normal sinus rhythm Nonspecific ST abnormality Abnormal ECG Confirmed by HENRY BARFIELD, DAYANA ([id number]), rewrite editor ARON HASKINS ([id number]) on 03/16/2019 6:23:47 AM Referred By: MR Confirmed By:DAYANA FIGUEROA MD
[2019-03-12] MEDS: Aspirin 81 MG TAB.CHEW 324 MG PO (19:30)
--- NOTE | 2019-03-12 19:30 | RAD_ITS ---
STUDY: X-RAY CHEST REASON FOR EXAM: Female, 63 years old. Chest pain TECHNIQUE: Frontal and lateral views COMPARISON: January 01, 2019 FINDINGS: The lungs are clear and expanded. There is no demonstrated pleural abnormality. Normal size heart. Normal mediastinum and jovan. Normal visualized pulmonary arteries. Calcified aortic arch and descending thoracic aorta. Normal visualized thoracic spine. Mild degenerative changes at the shoulders. There is no demonstrated abnormality of the visualized soft tissue structures of the upper abdomen. RAD/Chest PA and Lateral IMPRESSION: Normal x-ray examination of the chest. Electronically Signed: Prakash Alaniz DO at 20:08 EDT Tel [phone], Service support ,
[2019-03-12 19:49] LABS: Absolute Lymphocyte Count 3.63 X10^3/ul (0.83-4.51); Absolute Neutrophil Count 3.8 X10^3/uL (2.0-7.7); Basophil# 0.03 X10^3/uL; Basophil% 0.4 % (0-1); Eosinophil# 0.28 X10^3/uL; Eosinophils% 3.4 % (0-5); Hematocrit 35.9 % (37-47); Hemoglobin 12.4 g/dl (12.0-15.0); Lymphocyte # 3.63 X10^3/ul (4.0); Lymphocyte % 43.6 % (19-41); Mean Corp Hgb Conc 34.5 g/gl (32-36); Mean Corpuscular Hgb 31.2 pg (27.0-32.0); Mean Corpuscular Volume 90.2 fL (81-99); Mean Platelet Vol. 11.9 fl (6.2-12.0); Monocyte# 0.58 X10^3/uL; Neutrophil # 3.78 X10^3/uL (2.7-7.7); Neutrophil % 45.4 % (47-70); Platelet Count 239 K/mm3 (150-450); RBC Distribution Width CV 12.3 % (11.6-14.6); RBC Distribution Width SD 40.2 fl (35.1-43.9); Red Blood Count 3.98 M/mm3 (4.2-5.4); White Blood Count 8.3 K/mm3 (4.4-11.0)
[2019-03-12 19:50] LABS: POSITIVE COUNT NO; POSITIVE DIFFERENTIAL NO; POSITIVE MORPHOLOGY NO
[2019-03-12 20:04] LABS: Anion Gap 12 (5-15); BUN 15 mg/dL (7-18); BUN/Creat Ratio 13.6 RATIO (10-20); Calcium,Total 9.2 mg/dL (8.5-10.1); Chloride 98 mmol/L (98-107); EST Glomerular Filtration Rate 53 mL/min (>60); Est Glom Filt Rate - Afr Amer 64 mL/min (>60); Estimated Creatinine Clearance 42.18 ml/min; Glucose 611 mg/dL (74-106); Potassium 4.1 mmol/L (3.5-5.1); Sodium Level 131 mmol/L (136-145)
[2019-03-12] MEDS: 0.9% Normal Saline 1,000 ML 999 ML IV (20:29)
[2019-03-12] MEDS: Insulin Lispro 100 UNIT/ML INSULN.PEN 20 UNIT SC (20:29)
[2019-03-12 20:30] VITALS: BP 150/82; PULSE 74; RESP 15; O2SAT 98
[2019-03-12 21:20] LABS: Bedside Glucose 360 mg/dL (70-110)
--- NOTE | 2019-03-12 21:43 | ED.VIS.CHEST ---
History of Present Illness Chief Complaint: Chest Pain Informant: Patient Narrative: Patient presenting for evaluation secondary to chest pain. Patient reports that she was out weed eating all day today. She reports that about 630 she was finished with her yard work, came in and started noticed that she was having sharp left-sided chest pain. She reports that it is somewhat worse with movement and radiates to her arm and her neck. Is not been associated with any sort of shortness of breath. She denies any lightheadedness associated with it. She denies any numbness or weakness associated with it. Patient does have an underlying history of cardiovascular disease, and was most recently evaluated with coronary angiography within about the last year. She denies any history of DVT or PE. Review of systems otherwise negative. Past Medical History - Allergies and Home Meds Allergies/Adverse Reactions: Allergies Penicillins Allergy (Verified 03/12/19 19:09) Hives morphine Adverse Reaction (Mild, Verified 03/12/19 19:09) Itching hydrocodone bitartrate [From Vicodin] Adverse Reaction (Verified 03/12/19 19:09) Vomiting ibuprofen Adverse Reaction (Verified 03/12/19 19:09) Vomiting Primary Care Physician: Bulmaro Nogueira DO [Primary Care Provider] - Surgical History: angioplasty, appendectomy, cholecystectomy, hysterectomy Smoking Status: Former smoker - Family History Maternal Family History: Reports: Cancer - Uterine cancer, Diabetes, Heart Disease Paternal Family History: Reports: Heart Disease Sibling Family History: Reports: Diabetes, Heart Disease, Hypertension Review of Systems All systems negative except as indicated Cardiovascular: Reports: Chest pain. Denies: Palpitations, Heart racing Respiratory: Denies: Dyspnea, Cough Neurological: Denies: Weakness, Parasthesia Physical Exam Vital Signs/Narrative: Vital Signs Temp Pulse Resp BP Pulse Ox 03/12/19 20:30 74 15 150/82 H 98 03/12/19 19:09 99.3 F H 95 14 180/72 H 100 Inital Vital Signs reviewed: Yes General: Well nourished, Well developed, No Acute Distress Head: Normocephalic, Atraumatic Eyes: Perrl, EOMI ENT: Moist mucous membranes, No rhinorrhea Neck: Supple, Nontender, No JVD Cardiovascular: Regular rate, Regular rhythm, No murmurs, - - 2+ radial pulses bilaterally Respiratory: No distress, CTA bilaterally, Chest nontender, Chest tenderness - Left-sided Abdomen: Soft, Nontender, Nondistended, Normal bowel sounds Back: Nontender, Normal Inspection Extremities: Nontender, No edema Skin: Normal color, No rash Neurological: Alert, Oriented x3, Cranial nerves II-XII grossly intact, Normal Strength, Normal Sensation Psychological: Normal affect, Normal Mood Diagnostic/Tx/Re-eval - EKG Initial EKG Interpretation: Sinus Rhythm, Non-Specific ST Changes Prior: Unchanged - Medical Decision Making Patient presented for evaluation secondary to chest pain. EKG demonstrated no signs of ischemia. Chest x-ray was negative. CBC unremarkable, chemistry shows significant hyperglycemia. Patient was given a liter normal saline and 20 units of insulin. She had improvement of her sugar. I reviewed the patient's records, she had a recent negative stress test in November. Patient's history really seems consistent with a musculoskeletal type chest pain, so a 3-hour troponin was obtained which was also found to be negative. At this point I believe the patient is appropriate for discharge. She will follow-up with her primary care physician. Disposition: Home ED Disposition - Plan for ED Patient: Disposition: Home or Assisted Living Diagnosis: Chest pain Instructions: ED Strain Chest Wall Referrals: Bulmaro Nogueira DO [Primary Care Provider] - 3-5 Days
[2019-03-12] MEDS: oxyCODONE 5 MG Tablet PO (21:54)
[2019-03-12 22:00] VITALS: BP 153/70; PULSE 77; RESP 16; O2SAT 97
[2019-03-12 22:35] VITALS: BP 150/73; PULSE 77; RESP 22; O2SAT 98
[2019-03-12 23:06] VITALS: BP 150/73; PULSE 77; RESP 22; O2SAT 100
== END 2019-03-12 23:07 | disposition home or self-care (01) ==
PROVIDERS: Emergency Provider Emergency Medicine; Family Provider Family Medicine; PCP Family Medicine
DX: R07.9 Chest pain, unspecified (principal); R73.9 Hyperglycemia, unspecified; I25.10 Atherosclerotic heart disease of native coronary artery without angina pectoris; Z79.82 Long term (current) use of aspirin; Z79.4 Long term (current) use of insulin; Z79.84 Long term (current) use of oral hypoglycemic drugs; Z79.02 Long term (current) use of antithrombotics/antiplatelets; Z79.899 Other long term (current) drug therapy; Z87.891 Personal history of nicotine dependence
CPT/HCPCS: 71046; 80048; 82962; 84484; 85025; 93005; 96360; 96372; 99285; J7030; A4216

== ENCOUNTER 2019-05-16 16:57 | Emergency (ER) | payer MEDICARE, SELFPAY ==
[2017-03-16 08:30] VITALS: BMI 29.2
[2019-05-16 16:58] VITALS: BP 124/68; PULSE 93; RESP 16; TEMP 36.2; O2SAT 99; BMI 22.3
--- NOTE | 2019-05-16 17:19 | EKG12_ITS ---
Test Reason : CP NOT CALLED Blood Pressure : / mmHG Vent. Rate : 082 BPM Atrial Rate : 082 BPM P-R Int : 138 ms QRS Dur : 084 ms QT Int : 392 ms P-R-T Axes : 045 041 039 degrees QTc Int : 457 ms Normal sinus rhythm Normal ECG Confirmed by BRIT CROWE ([id number]), editorial manager TAQUERIA CHAMBERLAIN ([id number]) on 05/21/2019 1:27:22 PM Referred By: DALTON
--- NOTE | 2019-05-16 17:22 | ED.DCSUM_ITS ---
History of Present Illness Chief Complaint: Chest Pain Informant: Patient Onset: Today - 1.5-2 hrs [employer] Activity at onset: Light Activity - weedwacking around my trailer Timing: Continuous Quality: Sharp Location: - - at xiphoid process, occasionally radiating into left anterior neck. no back pain. Current Severity: Severe Maximum Severity: Severe Worsened By: Movement of Arm, Movement of Torso, Palpation Relieved By: Nothing. Not Relieved By: NTG, NSAIDS Associated Symptoms: Dyspnea. Negative for: Nausea, Vomiting, Diaphoresis, Cough, Fever, Lightheadedness, Acid Reflux, Palpitations Narrative: Patient states she had this discomfort started while she was using a weed Suzette. She has some discomfort in her left upper extremity as well that she think started today but does not know exactly when. She has a history of 4 stents the last was placed sometime last year and she has been compliant with her aspirin and Plavix. She took some extra aspirin and 2 nitroglycerin for this discomfort but none of it helped at all. No presyncopal symptoms or tearing sensations in her chest or sensation of impending doom. It is a little worse when she takes a deep breath. No leg pain or swelling or history of DVT or PE, no recent travel, hospitalization, or surgery. Prior Similar Symptoms: Yes, With Prior AR - pt thinks Recent Illness/Hospitalization: No - Past Medical History (1) Benign essential hypertension Status: Chronic (2) Bipolar disorder Status: Chronic (3) COPD (chronic obstructive pulmonary disease) Status: Chronic Comment: cont smoking (4) CVA (cerebral vascular accident) Status: Chronic (5) Coronary artery disease Status: Chronic Comment: ROMEL LAD 01/21 (6) GERD (gastroesophageal reflux disease) Status: Chronic (7) Hyperlipidemia Status: Chronic (8) Uncontrolled type 2 diabetes mellitus Status: Chronic (9) TIA (transient ischemic attack) Status: Suspected Past Medical History - Allergies and Home Meds Allergies/Adverse Reactions: Allergies Penicillins Allergy (Verified 03/12/19 19:09) Hives morphine Adverse Reaction (Mild, Verified 03/12/19 19:09) Itching hydrocodone bitartrate [From Vicodin] Adverse Reaction (Verified 03/12/19 19:09) Vomiting ibuprofen Adverse Reaction (Verified 03/12/19 19:09) Vomiting Primary Care Physician: Brown,Bulmaro, DO [Primary Care Provider] - Surgical History: angioplasty, appendectomy, cholecystectomy, hysterectomy Lives: Alone Smoking Status: Former smoker Drugs: None - Family History Maternal Family History: Reports: Cancer - Uterine cancer, Diabetes, Heart Disease Paternal Family History: Reports: Heart Disease Sibling Family History: Reports: Diabetes, Heart Disease, Hypertension Review of Systems General: Denies: Chills, Fever, Sweats Eyes: Denies: Visual changes - bilaterally, Diplopia ENT: Denies: Rhinorrhea, Sore throat Cardiovascular: Reports: Chest pain. Denies: Palpitations Respiratory: Reports: Dyspnea - gone now. Denies: Cough, Dyspnea on exertion Gastrointestinal: Denies: Abdominal pain, Nausea, Vomiting, Diarrhea, Melena, Hematochezia Genitourinary: Denies: Dysuria, Hematuria, Frequency Musculoskeletal: Reports: Extremity Pain - LUE. Denies: Back pain, Swelling Skin: Denies: Rash, Wounds Neurological: Denies: Headache, Weakness, Numbness Physical Exam Vital Signs/Narrative: Vital Signs Temp Pulse Resp BP Pulse Ox 05/16/19 16:58 97.1 F L 93 16 124/68 H 99 Inital Vital Signs reviewed: Yes General: Well nourished, Well developed, No Acute Distress - Well-appearing, not diaphoretic. Conversive. Head: Normocephalic, Atraumatic Eyes: Perrl, EOMI ENT: Moist mucous membranes, No rhinorrhea Neck: Supple, Nontender, No JVD Cardiovascular: Regular rate, Regular rhythm, No murmurs, Normal S1, Normal S2. Negative for: Tachycardia Respiratory: No distress, CTA bilaterally, Chest tenderness - At the xiphoid process, reproducing her pain Abdomen: Soft, Nontender, Nondistended, Normal bowel sounds Back: Nontender, Normal Inspection. Negative for: CVA tenderness Extremities: Nontender, No edema, - - With having her hands/arms outstretched in front of her and abducting them together against resistance, patient reproduces her pain significantly.. Negative for: Calf Tenderness Skin: Normal color, No rash, No Trauma Neurological: Alert, Oriented x3, Cranial nerves II-XII grossly intact, Normal Strength, Normal Sensation Psychological: Normal affect, Normal Mood Diagnostic/Tx/Re-eval Impressions Chest X-Ray 05/16/19 17:40 IMPRESSION: Normal x-ray examination of the chest. Electronically Signed: Reynaldo Duncan DO at 18:05 EDT Tel , Service support , 05/16/19 17:40 Chest PA and Lateral [RAD] Stat Laboratory Results 05/16/19 05/16/19 05/16/19 17:40 17:40 20:45 WBC 8.7 RBC 4.27 Hgb 13.5 Hct 39.1 MCV 91.6 MCH 31.6 MCHC 34.5 RDW Std Deviation 40.5 RDW Coeff of [place] 12.1 Plt Count 237 MPV 10.6 Immature Gran % (Auto) 0.300 Neut % (Auto) 47.6 Lymph % (Auto) 38.5 [place] % (Auto) 9.3 Eos % (Auto) 3.8 Baso % (Auto) 0.5 Absolute Neuts (auto) 4.2 Absolute Lymphs (auto) 3.36 Nucleated RBC % 0 Sodium 140 Potassium 4.4 Chloride 102 Carbon Dioxide 30.0 Anion Gap 8 BUN 17 Creatinine 0.98 Estim Creat Clear Calc 49.42 Est GFR (MDRD) Af Amer 73 Est GFR (MDRD) Non-Af 61 BUN/Creatinine Ratio 17.4 Glucose 194 H Calcium 9.4 Troponin I < 0.015 < 0.015 - Rhythm Strip Rhythm Strip: Sinus Rhythm Rate: 80 Ectopy: None - EKG Initial EKG Interpretation: Sinus Rhythm, No Acute Injury Pattern - Normal EKG. Normal axis. Prior: Unchanged Treatment: - - Ice pack, oral tramadol Repeat Eval: Pain Free DANDY Risk: Age >/= 65, >/= 3RF, H/O CAD, ASA within 7 days Score: 4 - Medical Decision Making Patient's history and exam are very consistent with musculoskeletal etiology. Given her history, however, initial cardiac work-up was performed and was normal . A 3-hour delta troponin was performed with a second troponin done 3 hours after the first, it is also negative. She still feels well. She is comfortable being discharged home with following up or returning if worse. ED Disposition - Plan for ED Patient: Disposition: Home or Assisted Living Diagnosis: Musculoskeletal chest pain Instructions: Chest Wall Strain Referrals: Brown,Bulmaro, DO [Primary Care Provider] - 3-5 Days if not improving
[2019-05-16] MEDS: traMADol 50 MG Tablet PO (17:33)
--- NOTE | 2019-05-16 17:40 | RAD_ITS ---
STUDY: X-RAY CHEST REASON FOR EXAM: Female, 63 years old. Chest pain TECHNIQUE: PA and lateral views of the chest. COMPARISON: 03/12/2019 FINDINGS: The lungs are clear and expanded. There is no demonstrated pleural abnormality. Normal size heart. Normal mediastinum and jovan. Normal visualized pulmonary arteries. Normal visualized aortic arch and descending thoracic aorta. Normal visualized thoracic spine. Normal visualized ribs, clavicles, and shoulders. There is no demonstrated abnormality of the visualized soft tissue structures of the upper abdomen. RAD/Chest PA and Lateral IMPRESSION: Normal x-ray examination of the chest. Electronically Signed: Reynaldo Duncan DO at 18:05 EDT Tel , Service support ,
[2019-05-16 17:41] VITALS: BP 132/62; PULSE 86; RESP 23; O2SAT 98
[2019-05-16 17:45] LABS: Absolute Lymphocyte Count 3.36 X10^3/uL (0.83-4.51); Absolute Neutrophil Count 4.2 X10^3/uL (2.0-7.7); Basophil# 0.04 X10^3/uL; Basophil% 0.5 % (0-1); Eosinophil# 0.33 X10^3/uL; Eosinophils% 3.8 % (0-5); Hematocrit 39.1 % (37-47); Hemoglobin 13.5 g/dL (12.0-15.0); Lymphocyte # 3.36 X10^3/ul (4.0); Lymphocyte % 38.5 % (19-41); Mean Corp Hgb Conc 34.5 g/dL (32-36); Mean Corpuscular Hgb 31.6 pg (27.0-32.0); Mean Corpuscular Volume 91.6 fL (81-99); Mean Platelet Vol. 10.6 fl (6.2-12.0); Monocyte# 0.81 X10^3/uL; Monocyte% 9.3 % (0-10); NRBC Flagged by Analyzer 0 % (0-5); Neutrophil # 4.16 X10^3/uL (2.7-7.7); Neutrophil % 47.6 % (47-70); Platelet Count 237 K/mm3 (150-450); RBC Distribution Width CV 12.1 % (11.6-14.6); RBC Distribution Width SD 40.5 fl (35.1-43.9); Red Blood Count 4.27 M/mm3 (4.2-5.4); White Blood Count 8.7 K/mm3 (4.4-11.0)
[2019-05-16 18:07] LABS: Anion Gap 8 (5-15); BUN 17 mg/dL (7-18); BUN/Creat Ratio 17.4 RATIO (10-20); Calcium,Total 9.4 mg/dL (8.5-10.1); Chloride 102 mmol/L (98-107); Creatinine, Serum 0.98 mg/dL (0.55-1.02); EST Glomerular Filtration Rate 61 mL/min (>60); Est Glom Filt Rate - Afr Amer 73 mL/min (>60); Estimated Creatinine Clearance 49.42 ml/min; Glucose 194 mg/dL (74-106); Potassium 4.4 mmol/L (3.5-5.1); Sodium Level 140 mmol/L (136-145)
[2019-05-16 19:00] VITALS: BP 127/70; PULSE 78; RESP 19; O2SAT 97
[2019-05-16] MEDS: proMETHazine 25 MG/ML Syringe 6.25 MG IV (20:46)
[2019-05-16 21:46] VITALS: BP 128/91; PULSE 86; RESP 18; O2SAT 98
--- NOTE | 2019-05-16 21:47 | ED.RN ---
REVIEWED D/C INSTRUCTIONS, FOLLOW UP CARE, AND S/S THAT WOULD WARRANT A RETURN TO THE ED WITH PT. PT VERBALIZED AN UNDERSTANDING AND DENIES FURTHER QUESTIONS FOR THIS RN. PT SKIN P/W/D, RESP EVEN AND UNLABORED, PT A&O X 3, NO DISTRESS NOTED. PT AMBULATED OUT OF ED, GAIT STEADY.
== END 2019-05-16 21:48 | disposition home or self-care (01) ==
PROVIDERS: Emergency Provider Emergency Medicine; Family Provider Family Medicine; PCP Family Medicine
DX: R07.89 Other chest pain (principal); I10 Essential (primary) hypertension; F31.9 Bipolar disorder, unspecified; J44.9 Chronic obstructive pulmonary disease, unspecified; I25.10 Atherosclerotic heart disease of native coronary artery without angina pectoris; K21.9 Gastro-esophageal reflux disease without esophagitis; E11.9 Type 2 diabetes mellitus without complications; Z86.73 Personal history of transient ischemic attack (TIA), and cerebral infarction without residual deficits; Z95.5 Presence of coronary angioplasty implant and graft; Z79.82 Long term (current) use of aspirin; Z79.02 Long term (current) use of antithrombotics/antiplatelets; Z79.4 Long term (current) use of insulin; Z79.84 Long term (current) use of oral hypoglycemic drugs; Z79.899 Other long term (current) drug therapy; Z87.891 Personal history of nicotine dependence
CPT/HCPCS: 71046; 80048; 84484; 85025; 93005; 96374; 99284; A4216

== ENCOUNTER 2019-05-27 19:15 | Emergency (ER) | payer MEDICARE, SELFPAY ==
[2017-03-16 08:30] VITALS: BMI 29.2
[2019-05-27 19:16] VITALS: BP 133/74; PULSE 88; RESP 15; TEMP 36.2; O2SAT 99; BMI 22.6
--- NOTE | 2019-05-27 20:28 | CT_ITS ---
STUDY: CT ABDOMEN AND PELVIS WITH CONTRAST REASON FOR EXAM: Female, 63 years old. Epigastric pain. RADIATION DOSAGE (If Supplied By Facility): CTDIvol = ( 18.48 ) mGy, DLP = ( 681.52 ) mGycm TECHNIQUE: Transaxial images were obtained from the dome of the diaphragm to the symphysis pubis without oral contrast. 100ML IV Isovue 370 was administered. Sagittal and coronal images were reconstructed. Individualized dose optimization techniques were used for this CT. COMPARISON: December 22, 2018 FINDINGS: The visualized lung bases are unremarkable. The visualized portions of the heart are within normal limits. There is a stable coarse calcification within the dome of the liver. There is hepatomegaly present. There is non-visualization of the gallbladder, which may be secondary to either contraction or a prior cholecystectomy. Normal spleen. Normal pancreas. Normal bilateral adrenal glands. Normal right kidney. Normal left kidney. There is a small hiatal hernia. Normal small intestine. Normal colon. The appendix is visualized and appears normal. There is diffuse atherosclerotic calcification of the abdominal aorta, without a demonstrated aneurysm. Normal inferior vena cava. Normal retroperitoneum. Normal urinary bladder. Normal abdominal wall. There are diffuse degenerative changes of the visualized lumbar spine. CT/Abdomen/Pelvis W IV Cont ONLY IMPRESSION: Hepatomegaly. Atherosclerosis. Electronically Signed: Savannah Boyd MD at 21:21 EDT Tel , Service support ,
[2019-05-27] MEDS: Ondansetron 4 MG/2 ML Vial IV (20:46)
[2019-05-27] MEDS: 0.9% Normal Saline 1,000 ML 1000 ML IV (20:46)
[2019-05-27] MEDS: Morphine 4 MG/ML Syringe IV (20:46)
[2019-05-27 20:57] LABS: Absolute Lymphocyte Count 1.73 X10^3/uL (0.83-4.51); Absolute Neutrophil Count 3.8 X10^3/uL (2.0-7.7); Basophil# 0.01 X10^3/uL; Basophil% 0.2 % (0-1); Eosinophil# 0.29 X10^3/uL; Eosinophils% 4.6 % (0-5); Hematocrit 33.5 % (37-47); Hemoglobin 11.4 g/dL (12.0-15.0); Lymphocyte # 1.73 X10^3/ul (4.0); Lymphocyte % 27.3 % (19-41); Mean Corpuscular Hgb 31.1 pg (27.0-32.0); Mean Corpuscular Volume 91.3 fL (81-99); Mean Platelet Vol. 10.4 fl (6.2-12.0); Monocyte# 0.54 X10^3/uL; Monocyte% 8.5 % (0-10); NRBC Flagged by Analyzer 0 % (0-5); Neutrophil # 3.76 X10^3/uL (2.7-7.7); Neutrophil % 59.2 % (47-70); Platelet Count 231 K/mm3 (150-450); RBC Distribution Width CV 12.1 % (11.6-14.6); RBC Distribution Width SD 40.8 fl (35.1-43.9); Red Blood Count 3.67 M/mm3 (4.2-5.4); White Blood Count 6.3 K/mm3 (4.4-11.0)
[2019-05-27 21:15] LABS: AST(SGOT) 32 U/L (15-37); Alanine Aminotransfer ALT/SGPT 31 U/L (13-56); Albumin, Serum 3.5 g/dL (3.2-5.0); Alkaline Phosphatase 66 U/L (45-117); Anion Gap 6 (5-15); BUN 14 mg/dL (7-18); BUN/Creat Ratio 18.9 RATIO (10-20); Bilirubin, Direct < 0.05 mg/dL (0.00-0.30); Calcium,Total 8.7 mg/dL (8.5-10.1); Chloride 110 mmol/L (98-107); Creatinine, Serum 0.74 mg/dL (0.55-1.02); EST Glomerular Filtration Rate 84 mL/min (>60); Est Glom Filt Rate - Afr Amer 101 mL/min (>60); Estimated Creatinine Clearance 65.45 ml/min; Globulin 3.6 g/dL (2.2-4.2); Glucose 141 mg/dL (74-106); Lipase 110 U/L (73-393); Potassium 4.2 mmol/L (3.5-5.1); Protein, Total 7.1 g/dL (6.4-8.2); Sodium Level 139 mmol/L (136-145)
--- NOTE | 2019-05-27 21:56 | ED.DCSUM_ITS ---
- ER Visit Summary Date of Service: 05/27/19 Chief Complaint: Epigastric abdominal pain History of Present Illness: The patient is a 63 F history of diabetes, hypertension, pre-artery disease, cardiac stents with prior cholecystectomy and hysterectomy. Patient states that she is had epigastric abdominal pain since last night. No chest pain. No shortness of breath. She has had nausea and vomiting 5 times last 24 hours. She denies any hematemesis. No melena. No fever. States that she took Pepto-Bismol without any significant relief. She says she has a pending colonoscopy due to blood in her stool. She denies melena or fever. Physical Examination: Older female no acute distress complaint epigastric pain. Vital signs are stable and afebrile. HEENT exam unremarkable. Neck nontender. Lungs clear to auscultation. Heart regular rhythm no murmur. Abdomen soft nondistended normal bowel sounds no peritoneal signs. Right upper right lower quadrant completely nontender. No hernias or masses. No signs of obstruction. She is tender in epigastric region. There are no pulsatile masses. She is moving all 4 extremities. Calves are nontender without edema. Neurologically she is awake and alert. Back is nontender. Test Results: CBC shows a white count of 6. Hemoglobin 11.4. Previously hemoglobin was 12. Electrolytes unremarkable normal creatinine and gap. Liver enzymes and lipase all normal. Emergency Department Course and Treatment: Patient treated with IV fluids, morphine and Zofran. Repeat exam at 2149 patient is doing well. She feels much better. Abdomen is benign. Again only minimal epigastric tenderness but no right upper or right lower quadrant tenderness and no peritoneal signs. She denied discussed all of her test results. Treatment Plan: Protonix daily. Follow-up with primary care physician. Return if worse. Disposition: Discharge Impression: Epigastric abdominal pain uncertain etiology This note was generated with [employer] software. It may contain incorrect words, spelling, and punctuation that were not noted in review of the chart prior to signing ED Disposition - Plan for ED Patient: Referrals: Bulmaro Nogueira DO [Primary Care Provider] -
--- NOTE | 2019-05-27 21:58 | ED.DEP ---
ED Disposition - Plan for ED Patient: Disposition: Home or Assisted Living Instructions: ABDOMINAL PAIN, Unknown Cause, (Female) Prescriptions: Pantoprazole Sodium [Protonix] 40 mg PO DAILY #20 tab Prescription Printed Referrals: Bulmaro Nogueira DO [Primary Care Provider] - As soon as possible Additional Instructions: Epigastric abdominal pain of uncertain etiology. This may be secondary to gastritis. Protonix for your stomach. Follow-up with your doctor. Return if feeling worse black or bloody stool or throw up any blood.
[2019-05-27 22:55] VITALS: BP 139/67; PULSE 74; RESP 16; O2SAT 98
== END 2019-05-27 23:24 | disposition home or self-care (01) ==
PROVIDERS: Emergency Provider Emergency Medicine; Family Provider Family Medicine; PCP Family Medicine
DX: R10.13 Epigastric pain (principal); R11.2 Nausea with vomiting, unspecified; E11.9 Type 2 diabetes mellitus without complications; I10 Essential (primary) hypertension; I25.10 Atherosclerotic heart disease of native coronary artery without angina pectoris; I25.2 Old myocardial infarction; E78.00 Pure hypercholesterolemia, unspecified; Z90.49 Acquired absence of other specified parts of digestive tract; Z95.5 Presence of coronary angioplasty implant and graft; Z79.84 Long term (current) use of oral hypoglycemic drugs; Z79.4 Long term (current) use of insulin; Z79.82 Long term (current) use of aspirin; Z79.02 Long term (current) use of antithrombotics/antiplatelets; Z79.899 Other long term (current) drug therapy
CPT/HCPCS: 74177; 80048; 80076; 83690; 85025; 96361; 96374; 96375; 99285; J7030; Q9967; A4216; J2405

== ENCOUNTER 2019-06-10 17:24 | Emergency (ER) | payer MEDICARE, SELFPAY ==
[2017-03-16 08:30] VITALS: BMI 29.2
[2019-06-10 17:24] VITALS: BP 154/80; PULSE 97; RESP 17; TEMP 35.9; O2SAT 100; BMI 26.1
--- NOTE | 2019-06-10 17:47 | ED.VIS.BACK ---
History of Present Illness Chief Complaint: Back Informant: Patient Onset: Days - 2 Context: - - awoke with pain Injury: - - unk Timing: Continuous Quality: Aching Location: Lumbar - without radiation Current Severity: Severe Maximum Severity: Severe Worsened by: improves with: Movement Relieved by: Nothing - despite trying tylenol and ibuprofen (which she states she is allergic to) Associated Symptoms: - - No radiation to lower extremities, no numbness or tingling, no weakness in legs. No bowel or bladder dysfunction except for urgency and hesitancy, see below, x1 this morning. Narrative: Patient woke up with this pain, states she has had back pain like this before but this is worse. No radiation down lower extremities. She states today she vomited several times this morning. No fevers. No abdominal discomfort or pain right now. Earlier she tried to urinate and it just dribbled out. She denies any dysuria or hematuria, and states this only happened one time. - Past Medical History (1) Benign essential hypertension Status: Chronic (2) Bipolar disorder Status: Chronic (3) COPD (chronic obstructive pulmonary disease) Status: Chronic Comment: cont smoking (4) CVA (cerebral vascular accident) Status: Chronic (5) Coronary artery disease Status: Chronic Comment: ROMEL LAD 01/21 (6) GERD (gastroesophageal reflux disease) Status: Chronic (7) Hyperlipidemia Status: Chronic (8) Uncontrolled type 2 diabetes mellitus Status: Chronic (9) TIA (transient ischemic attack) Status: Suspected (10) Cystitis Status: Inactive Past Medical History - Allergies and Home Meds Allergies/Adverse Reactions: Allergies Penicillins Allergy (Verified 06/10/19 17:24) Hives morphine Adverse Reaction (Mild, Verified 06/10/19 17:24) Itching hydrocodone bitartrate [From Vicodin] Adverse Reaction (Verified 06/10/19 17:24) Vomiting ibuprofen Adverse Reaction (Verified 06/10/19 17:24) Vomiting Primary Care Physician: Bulmaro Nogueira DO [Primary Care Provider] - Surgical History: angioplasty, appendectomy, cholecystectomy, hysterectomy Lives: Alone Smoking Status: Former smoker - Family History Maternal Family History: Reports: Cancer - Uterine cancer, Diabetes, Heart Disease Paternal Family History: Reports: Heart Disease Sibling Family History: Reports: Diabetes, Heart Disease, Hypertension Review of Systems General: Denies: Chills, Fever, Sweats Eyes: Denies: Visual changes - bilaterally, Diplopia ENT: Denies: Rhinorrhea, Sore throat Cardiovascular: Denies: Chest pain, Palpitations Respiratory: Denies: Dyspnea, Cough, Dyspnea on exertion Gastrointestinal: Reports: Nausea, Vomiting. Denies: Abdominal pain, Diarrhea, Melena, Hematochezia Genitourinary: Reports: - - Urgency/hesitancy this morning. Denies: Dysuria, Hematuria, Frequency Musculoskeletal: Reports: Back pain. Denies: Extremity Pain Skin: Denies: Rash, Wounds Neurological: Denies: Headache, Weakness, Parasthesia, Numbness Physical Exam Vital Signs/Narrative: Vital Signs Temp Pulse Resp BP Pulse Ox 06/10/19 17:24 96.6 F L 97 17 154/80 H 100 Inital Vital Signs reviewed: Yes General: Well nourished, Well developed Head: Normocephalic, Atraumatic Eyes: Perrl, EOMI ENT: Moist mucous membranes, No rhinorrhea Neck: Supple, Nontender Cardiovascular: Regular rate, Regular rhythm, No murmurs Respiratory: No distress, CTA bilaterally, Chest nontender Abdomen: Soft, Nondistended, Normal bowel sounds, No masses, Tender - Mild, suprapubic only. Negative for: Guarding, Rebound tenderness Back: Normal Inspection, Paraspinal Tenderness - Bilateral SI joints and lumbar back paraspinal. Negative for: Spinal tenderness Extremeties: Nontender, No edema, Strong Pulses, Symmetric, - - Negative straight leg raises bilaterally while lying supine Skin: Normal color, No rash Neuro: Alert, Oriented, Normal Strength, Normal Sensation, Normal DTR, Normal Gait, Normal Reflexes Psychological: Normal affect, Normal Mood Diagnostic/Tx/Re-eval Laboratory Tests 06/10/19 Range/Units 17:57 Urine Color Yellow (Yellow) Urine Clarity Sl. Cloudy (Clear) Urine pH 7.0 (5.0 - 8.0) Ur Specific [place] 1.015 (1.002-1.030) Urine Protein 15 H (Negative) mg/dl Urine Glucose (UA) 100 H (Normal) mg/dl Urine Ketones Negative (Negative) mg/dl Urine Occult Blood Negative (Negative) /ul Urine Nitrite Negative (Negative) Urine Bilirubin Negative (Negative) mg/dL Urine Urobilinogen Normal (Normal) mg/dl Ur Leukocyte Esterase 500 H (Negative) /ul Urine RBC 0-5 SEEN (0-5) /hpf Urine WBC 10-25 SEEN (0-5) /hpf Ur Squamous Epith Cells 0-5 SEEN (5-10) /hpf Amorphous Sediment 1+ Urine Bacteria 1+ (None Seen) /hpf Urine Mucus 0 SEEN (<or=2+) /hpf - Medical Decision Making Urinalysis is consistent with infection which I suspect is the cause of the majority of her pain although she seems to have a musculoskeletal component as well. She was given a tramadol here but I do not think she needs a prescription for a controlled substance at home. Culture sent, started on Bactrim, prescription given. Advised to follow-up for persistent pain. ED Disposition - Plan for ED Patient: Disposition: Home or Assisted Living Diagnosis: Acute cystitis without hematuria, Low back pain Instructions: Urinary Tract Infections in Women Prescriptions: Sulfamethoxazole/Trimethoprim [Bactrim Ds Tablet] 1 ea PO BID #10 tab Prescription Printed Referrals: Bulmaor Nogueira DO [Primary Care Provider] - 3-5 Days if not improving
[2019-06-10 18:05] LABS: Mucous, Urine 0 SEEN /hpf (<or=2+)
[2019-06-10 18:08] LABS: Color, Urine Yellow (Yellow); Glucose, Dipstick 100 mg/dl (Normal); Ketone-Dipstick Negative (Negative); Leukocyte Esterase-Dipstick 500 /ul (Negative); Nitrite-Dipstick Negative (Negative); Occult Blood-Urine Negative /ul (Negative); Protein-Dipstick 15 mg/dl (Negative); Specific Gravity, Urine 1.015 (1.002-1.030); Urine Bilirubin Dipstick Negative (Negative); Urine Clarity Sl. Cloudy (Clear); Urine Urobilinogen Normal (Normal)
[2019-06-10] MEDS: traMADol 50 MG Tablet PO (18:13)
[2019-06-10 18:18] LABS: White Blood Cells 10-25 SEEN /hpf (0-5)
[2019-06-10 18:19] LABS: Amorphous Sediment 1+; Bacteria 1+ /hpf (None Seen); Red Blood Cells-Urine 0-5 SEEN /hpf (0-5); Squamous Epithelial Cells - UA 0-5 SEEN /hpf (5-10)
[2019-06-10] MEDS: Smz/Tmp Ds Tablet 1 TABLET PO (19:16)
[2019-06-10 19:19] VITALS: BP 134/76; PULSE 87; RESP 17; O2SAT 99
== END 2019-06-10 19:20 | disposition home or self-care (01) ==
PROVIDERS: Emergency Provider Emergency Medicine; Family Provider Family Medicine; PCP Family Medicine
DX: N30.00 Acute cystitis without hematuria (principal); M54.5 Low back pain; I10 Essential (primary) hypertension; F31.9 Bipolar disorder, unspecified; J44.9 Chronic obstructive pulmonary disease, unspecified; I25.10 Atherosclerotic heart disease of native coronary artery without angina pectoris; K21.9 Gastro-esophageal reflux disease without esophagitis; E11.9 Type 2 diabetes mellitus without complications; Z95.5 Presence of coronary angioplasty implant and graft; Z79.82 Long term (current) use of aspirin; Z79.4 Long term (current) use of insulin; Z79.84 Long term (current) use of oral hypoglycemic drugs; Z79.02 Long term (current) use of antithrombotics/antiplatelets; Z79.899 Other long term (current) drug therapy; Z87.891 Personal history of nicotine dependence
CPT/HCPCS: 81001; 87086; 87088; 87186; 99283

== ENCOUNTER 2019-06-19 18:56 | Emergency (ER) | payer MEDICARE, SELFPAY ==
[2017-03-16 08:30] VITALS: BMI 29.2
[2019-06-19 18:57] VITALS: BP 137/72; PULSE 91; RESP 16; TEMP 36.8; O2SAT 100; BMI 25.5
[2019-06-19 19:12] VITALS: RESP 17
[2019-06-19] MEDS: Ondansetron 4 MG/2 ML Vial IV (19:38)
[2019-06-19] MEDS: Morphine 4 MG/ML Syringe IV (19:38)
[2019-06-19 21:00] VITALS: BP 121/65; PULSE 71; RESP 17; O2SAT 97
--- NOTE | 2019-06-19 21:56 | ED.VIS.GEN ---
History of Present Illness Chief Complaint: Back Detail of Chief Complaint: Atraumatic back pain from the posterior iliac spine/neck Informant: Patient Onset: Today Context: Sudden Onset Timing: Continuous Quality: Pain Location: Upper and lower back Current Severity: Moderate Maximum Severity: Severe Worsened by: Movement, touch, supine position Relieved by: Nothing Associated Symptoms: Nothing other than pain Narrative: Patient is an elderly woman who presents with atraumatic back pain from her lower neck to the lower back. She demarcates at the spinous process of C7 and the posterior iliac spine. She denies respiratory, cardiac, GI or urologic symptoms. She states she has history of back problems. She denies any trauma. She denies paresthesia, anesthesia motor weakness. Prior similar symptoms: Yes Recent Illness/Hospitalization: No - Past Medical History (1) Dysphagia Status: Acute (2) Left-sided weakness Status: Acute (3) Benign essential hypertension Status: Chronic (4) Bipolar disorder Status: Chronic (5) COPD (chronic obstructive pulmonary disease) Status: Chronic Comment: cont smoking (6) CVA (cerebral vascular accident) Status: Chronic (7) Coronary artery disease Status: Chronic Comment: ROMEL LAD 01/21 (8) Hyperlipidemia Status: Chronic (9) Tobacco abuse Status: Chronic (10) Uncontrolled type 2 diabetes mellitus Status: Chronic (11) TIA (transient ischemic attack) Status: Suspected Past Medical History - Allergies and Home Meds Allergies/Adverse Reactions: Allergies Penicillins Allergy (Verified 06/19/19 18:58) Hives morphine Adverse Reaction (Mild, Verified 06/19/19 18:58) Itching hydrocodone bitartrate [From Vicodin] Adverse Reaction (Verified 06/19/19 18:58) Vomiting ibuprofen Adverse Reaction (Verified 06/19/19 18:58) Vomiting Primary Care Physician: Bulmaro Nogueira DO [Primary Care Provider] - Prior records reviewed: Yes Surgical History: angioplasty, appendectomy, cholecystectomy, hysterectomy Lives: Alone Smoking Status: Former smoker Alcohol: None Drugs: None - Family History Maternal Family History: Reports: Cancer - Uterine cancer, Diabetes, Heart Disease Paternal Family History: Reports: Heart Disease Sibling Family History: Reports: Diabetes, Heart Disease, Hypertension Review of Systems General: Denies: Chills, Fever, Malaise, Subjective, Sweats Cardiovascular: Denies: Chest pain, Palpitations Respiratory: Denies: Dyspnea, Cough, Dyspnea on exertion Gastrointestinal: Denies: Abdominal pain, Nausea, Vomiting, Diarrhea, Melena, Hematochezia Genitourinary: Denies: Dysuria, Hematuria, Frequency Musculoskeletal: Reports: Back pain. Denies: Myalgias, Arthralgias, Neck pain, Swelling, Extremity Pain, -, - Skin: Denies: Rash, Wounds Neurological: Denies: Headache, Weakness, Parasthesia, Numbness Psych: Reports: Depression Hematologic: Denies: Easy bruising, Easy bleeding Physical Exam Vital Signs/Narrative: Vital Signs Temp Pulse Resp BP Pulse Ox 06/19/19 19:12 17 06/19/19 18:57 98.2 F 91 16 137/72 H 100 Inital Vital Signs reviewed: Yes General: Well nourished, Well developed, No Acute Distress Head: Normocephalic, Atraumatic Eyes: Perrl, EOMI. Negative for: Pale conjunctiva, Scleral icterus ENT: Moist mucous membranes, No rhinorrhea Neck: Supple, Nontender Cardiovascular: Regular rate, Regular rhythm, No murmurs Respiratory: No distress, CTA bilaterally, Chest nontender Abdomen: Soft, Nontender, Nondistended, Normal bowel sounds Back: Normal Inspection, - - Pain to palpation of the entire back.. Negative for: CVA tenderness, Spinal tenderness Extremities: Nontender, No edema Skin: Normal color, No rash Neurological: Alert, Oriented x3, Cranial nerves II-XII grossly intact, Normal Strength, Normal Sensation, Normal DTR - No clonus or Babinski sign., Normal Gait Psychological: Depressed, Tearful Diagnostic/Tx/Re-eval - Medical Decision Making She was medicated with IV Zofran and morphine. Patient was reassessed. She is no longer crying. She is now able to move. Patient was instructed treatment is rest, ice and anti-inflammatory. She was instructed to follow-up with her primary care doctor. Differential includes muscle pain, doubt renal or ureteral calculi, with involvement entire back doubt pulmonary embolus, disc problem etc. ED Disposition - Plan for ED Patient: Disposition: Home or Assisted Living Diagnosis: Acute bilateral back pain Instructions: BACK PAIN (Acute or Chronic) Referrals: Bulmaro Nogueira, [Primary Care Provider] - 3-5 Days if not improving
[2019-06-19 22:07] VITALS: BP 133/64; PULSE 76; RESP 18; O2SAT 99
== END 2019-06-19 22:08 | disposition home or self-care (01) ==
PROVIDERS: Emergency Provider Emergency Medicine; Family Provider Family Medicine; PCP Family Medicine
DX: M54.2 Cervicalgia (principal); M54.5 Low back pain; Z87.891 Personal history of nicotine dependence; I25.10 Atherosclerotic heart disease of native coronary artery without angina pectoris; E11.65 Type 2 diabetes mellitus with hyperglycemia; J44.9 Chronic obstructive pulmonary disease, unspecified; I10 Essential (primary) hypertension; Z79.02 Long term (current) use of antithrombotics/antiplatelets; Z79.899 Other long term (current) drug therapy; Z79.4 Long term (current) use of insulin; E78.5 Hyperlipidemia, unspecified; Z95.5 Presence of coronary angioplasty implant and graft; Z86.73 Personal history of transient ischemic attack (TIA), and cerebral infarction without residual deficits
CPT/HCPCS: 99284; A4216; J2405

== ENCOUNTER 2019-07-03 15:34 | Emergency (ER) | payer MEDICARE, SELFPAY ==
[2017-03-16 08:30] VITALS: BMI 29.2
[2019-07-03 15:36] VITALS: BP 158/78; PULSE 111; RESP 18; TEMP 35.8; O2SAT 100; BMI 24.5
--- NOTE | 2019-07-03 15:49 | ED.DCSUM_ITS ---
History of Present Illness Chief Complaint: Suicidal Informant: Patient Onset: Yesterday Context: Sudden Onset Conflict: Family - Potentially with Timing: Intermittent Current Severity: Presently not hearing voices Maximum Severity: Moderate - Voices told her to take the Tylenol PM and apparently throw coffee this morning Worsened by: - - Auditory hallucinations Relieved by: Nothing Associated Symptoms: Depressed, Change in sleeping. Negative for: Decreased Interest, Guilt, Decreased Concentration, Hopelessness, Suicidal Thoughts, Grandiosity, Flight of Ideas, Increased activity, Pressured Speech, Agitated, Angry, Hostile, Threatening, Confusion, Paranoia Specific plan (suicidal thought): Patient does not have a specific plan Narrative: Patient is a 63-year-old woman with history of bipolar affective disorder and schizophrenia who was last seen at the counseling center 3 months ago. She has not taken any of her psychiatric meds for the past 3 months. Last evening she heard voices that told her take Tylenol PM to sleep. She took 6 tablets. This morning her asked for coffee and she apparently threw the cup of coffee. I was informed that she was brought by the counselor from the counseling center. No other information is available. The patient's expectation are resumption of medication, close follow-up. She states she needs help. Presently she has no suicidal homicidal thoughts. Patient denies any constitutional, ocular, ENT, cardiac, respiratory, GI or symptoms. No noted change in the color urine or stool. She denies any neurologic symptoms. Prior similar symptoms: Yes Recent Illness/Hospitalization: No - Past Medical History (1) Left-sided weakness Status: Acute (2) Benign essential hypertension Status: Chronic (3) Bipolar disorder Status: Chronic (4) COPD (chronic obstructive pulmonary disease) Status: Chronic Comment: cont smoking (5) CVA (cerebral vascular accident) Status: Chronic (6) Coronary artery disease Status: Chronic Comment: ROMEL LAD 01/21 (7) GERD (gastroesophageal reflux disease) Status: Chronic (8) Hyperlipidemia Status: Chronic (9) Uncontrolled type 2 diabetes mellitus Status: Chronic (10) Dysarthria Status: Inactive Past Medical History - Allergies and Home Meds Allergies/Adverse Reactions: Allergies Penicillins Allergy (Verified 07/03/19 15:36) Hives morphine Adverse Reaction (Mild, Verified 07/03/19 15:36) Itching hydrocodone bitartrate [From Vicodin] Adverse Reaction (Verified 07/03/19 15:36) Vomiting ibuprofen Adverse Reaction (Verified 07/03/19 15:36) Vomiting Primary Care Physician: Bulmaro Nogueira DO [Primary Care Provider] - Prior records reviewed: Yes Surgical History: angioplasty, appendectomy, cholecystectomy, hysterectomy Lives: Spouse/ Significant Other Smoking Status: Former smoker Alcohol: None Drugs: None - Family History Maternal Family History: Reports: Cancer - Uterine cancer, Diabetes, Heart Disease Paternal Family History: Reports: Heart Disease Sibling Family History: Reports: Diabetes, Heart Disease, Hypertension Review of Systems General: Denies: Chills, Fever, Malaise, Subjective, Sweats, Weight loss Eyes: Denies: Visual changes - left, Visual changes - bilaterally, Diplopia ENT: Denies: Rhinorrhea, Sore throat Cardiovascular: Denies: Chest pain, Palpitations Respiratory: Denies: Dyspnea, Cough, Dyspnea on exertion Gastrointestinal: Denies: Abdominal pain, Nausea, Vomiting, Diarrhea, Melena, Hematochezia Genitourinary: Denies: Dysuria, Hematuria, Frequency Musculoskeletal: Denies: Myalgias, Arthralgias, Neck pain, Back pain, Swelling, Extremity Pain, -, - Skin: Denies: Rash, Wounds Neurological: Denies: Headache, Weakness, Parasthesia, Numbness Psych: Reports: Depression, - - Auditory hallucinations. Denies: Suicidal thoughts, Suicidal ideations Hematologic: Denies: Easy bruising, Easy bleeding Allergy: Denies: Uticaria, Swelling of the mouth, Swelling of the tongue Physical Exam Vital Signs/Narrative: Vital Signs Temp Pulse Resp BP Pulse Ox 07/03/19 15:36 96.5 F L 111 H 18 158/78 H 100 Inital Vital Signs reviewed: Yes General: Well nourished, Well developed Head: Normocephalic, Atraumatic Eyes: Perrl, EOMI ENT: Moist mucous membranes, No rhinorrhea Neck: Supple, Nontender Cardiovascular: Regular rate, Regular rhythm, No murmurs Respiratory: No distress, CTA bilaterally, Chest nontender Abdomen: Soft, Nontender, Nondistended, Normal bowel sounds Back: Nontender, Normal Inspection Extremities: Nontender, No Edema Skin: Normal color, No rash Neurological: Alert, Oriented x3, Cranial nerves II-XII grossly intact, Normal Strength, Normal Sensation Psych: Normal Speech Pattern, No suicidal or homicidal ideation, Normal Appearance, Depressed, Poverty of Speech, Hallucinations Diagnostic/Tx/Re-eval Laboratory Results 07/03/19 07/03/19 07/03/19 16:20 16:50 16:50 WBC RBC Hgb Hct MCV MCH MCHC RDW Std Deviation RDW Coeff of [place] Plt Count MPV Immature Gran % (Auto) Neut % (Auto) Lymph % (Auto) [place] % (Auto) Eos % (Auto) Baso % (Auto) Absolute Neuts (auto) Absolute Lymphs (auto) Nucleated RBC % Sodium 140 Potassium 3.7 Chloride 107 Carbon Dioxide 27.0 Anion Gap 6 BUN 10 Creatinine 0.85 Estim Creat Clear Calc 56.98 Est GFR (MDRD) Af Amer 86 Est GFR (MDRD) Non-Af 71 BUN/Creatinine Ratio 11.7 Glucose 149 H Calcium 9.3 Total Bilirubin 0.40 Direct Bilirubin 0.08 AST 12 L ALT 20 Alkaline Phosphatase 53 Total Protein 7.5 Albumin 4.1 Globulin 3.4 Urine Opiates Screen NEGATIVE Urine Methadone Screen NEGATIVE Acetaminophen < 2.0 L Ur Barbiturates Screen NEGATIVE Ur Phencyclidine Scrn NEGATIVE Ur Amphetamines Screen NEGATIVE U Methamphetamin-MDMA NEGATIVE U Benzodiazepines Scrn NEGATIVE Urine Cocaine Screen NEGATIVE U Cannabinoids Screen NEGATIVE Ur Drug Screen Comment Ethyl Alcohol 07/03/19 07/03/19 16:50 16:50 WBC 6.3 RBC 3.81 L Hgb 12.3 Hct 34.9 L MCV 91.6 MCH 32.3 H MCHC 35.2 RDW Std Deviation 40.7 RDW Coeff of [place] 12.1 Plt Count 240 MPV 10.5 Immature Gran % (Auto) 0.500 Neut % (Auto) 49.2 Lymph % (Auto) 39.7 Caroline % (Auto) 6.6 Eos % (Auto) 3.5 Baso % (Auto) 0.5 Absolute Neuts (auto) 3.1 Absolute Lymphs (auto) 2.52 Nucleated RBC % 0 Sodium Potassium Chloride Carbon Dioxide Anion Gap BUN Creatinine Estim Creat Clear Calc Est GFR (MDRD) Af Amer Est GFR (MDRD) Non-Af BUN/Creatinine Ratio Glucose Calcium Total Bilirubin Direct Bilirubin AST ALT Alkaline Phosphatase Total Protein Albumin Globulin Urine Opiates Screen Urine Methadone Screen Acetaminophen Ur Barbiturates Screen Ur Phencyclidine Scrn Ur Amphetamines Screen U Methamphetamin-MDMA U Benzodiazepines Scrn Urine Cocaine Screen U Cannabinoids Screen Ur Drug Screen Comment Ethyl Alcohol 4.0 Since laboratory results are unremarkable including hepatic enzymes and acetaminophen level. Recent in my professional medical opinion is appropriate for management at a psychiatric facility. There are no medical reasons to prohibit her admission for psychiatric admission. - EKG Initial EKG Interpretation: Sinus Rhythm - Rate is 85. MN interval 140 ms. QRS durations 80 ms. QT duration 386 ms. [place] is normal. The EKG is completely normal. Based on history there is available patient has auditory hallucinations and she is obeying what she is told. She has no suicidal thoughts. She realizes that she has a problem and needs help. Will have counseling center/case management see the patient to arrange for outpatient therapy. In my professional opinion based on information available there is no need for emergent psychiatric admission. If there there is information that can be obtained by the counseling center workers compensation claims specialist or [facility] our case management will reassess need for hospitalization versus outpatient therapy. Was informed by [facility] psychosocial rehabilitation counselor for case management that patient was sent from behavioral health. There is concern for suicidal ideation and self- harm. Based on information obtained by Sam from patient's prior interaction with behavioral health full work-up was undertaken for medical clearance for inpatient therapy. At 1650 I was informed that patient is requesting medication for headache. Since there is concern that she ingested Tylenol will treat with aspirin. ED Disposition - Plan for ED Patient: Disposition: Psychiatric Hospital or Unit Diagnosis: Depression with suicidal ideation, Schizophrenia, chronic with acute exac erbation Referrals: Bulmaro Nogueira DO [Primary Care Provider] -
--- NOTE | 2019-07-03 16:05 | EKG12_ITS ---
Test Reason : SUICIDAL Blood Pressure : / mmHG Vent. Rate : 085 BPM Atrial Rate : 085 BPM P-R Int : 148 ms QRS Dur : 080 ms QT Int : 386 ms P-R-T Axes : 027 016 039 degrees QTc Int : 459 ms Normal sinus rhythm Normal ECG Confirmed by TJ BARFIELD, GLORY ([id number]), newspaper photo editor TAQUERIA CHAMBERLAIN ([id number]) on 07/06/2019 10:25:32 A M Referred By: HEATHER Confirmed By:AL SPENCER MD
--- NOTE | 2019-07-03 16:29 | CM.ED ---
SOCIAL WORK ASSESSMENT INFORMANT: DR. ROMERO AND LORRIE FROM [facility] REASON FOR REFERRAL: SUICIDAL, AUDITORY HALLUCINATIONS MARITAL/SOCIAL HISTORY: LIVING SITUATION: HOME WITH . PATIENT REPORTS DAUGHTER IS CURRENTLY LIVING WITH PATIENT AND . SUPPORT/RESOURCES: PATIENT IDENTIFIES HER SISTER WHO RESIDES IN CHAMBERS SUPPORT PERSON. EDUCATION/EMPLOYMENT: RETIRED MENTAL HEALTH TREATMENT/HISTORY: PATIENT REPORTS HAS BEEN DIAGNOSED BIPOLAR. PATIENT STATES HAS NOT TAKEN MEDICATIONS FOR 3-4 MONTHS. PATIENT WAS IN INTENSIVE OUTPATIENT THERAPY BACK IN OCTOBER AT [facility]. DURING THAT TIME PATIENT DID REQUIRE INPATIENT HOSPITALIZATION FOR SUICIDAL IDEATION. PATIENT REPORTS IS CURRENTLY HEARING VOICES THAT ARE TELLING HER TO KILL MYSELF. PATIENT STATES LAST EVENING VOICE TOLD HER TO TAKE 6 TYLENOL PM WHICH SHE STATES SHE DID TAKE. PATIENT DENIES ANY EMOTIONAL, PHYSICAL OR SEXUAL ABUSE. SUBSTANCE ABUSE HISTORY: PATIENT DENIES ANY SUBSTANCE ABUSE HISTORY. MENTAL STATUS EXAM: PATIENT ALERT AND ORIENTED APPEARANCE/GENERAL BEHAVIOR: CALM, APPROPRIATE MOOD/AFFECT: FLAT, DEPRESSED COMMUNICATION PATTERN: RESPONDS TO QUESTIONS THOUGHT PROCESS: AUDITORY HALLUCINATIONS TELLING HER TO KILL HERSELF. RISK TO SELF/OTHERS: PATIENT ADMITS TO SUICIDAL THOUGHTS AND ATTEMPT LAST EVENING AFTER VOICE TOLD HER TO TAKE 6 TYLENOL PM'S. PATIENT REPORTS STILL HAVING SUICIDAL THOUGHTS THIS DAY AND WAS AT THE [facility] FOR INTAKE APPOINTMENT. WORKER FROM THE [facility] BROUGHT PATIENT TO EMERGENCY DEPARTMENT D/T ATTEMPT LAST EVENING. PATIENT WITH PRIOR HX OF ATTEMPTS AND HOSPITALIZATION AT [facility]. PATIENT DENIES HOMICIDAL IDEATIONS. COLLABORATION WITH DR. ROMERO AND [facility] BEHAVIORAL HEALTH WORKER. PATIENT WOULD BENEFIT FROM INPATIENT PSYCH HOSPITALIZATION FOR STABILIZATION. PATIENT INFORMED OF RECOMMENDATION AND IN AGREEMENT WITH PLAN. INTERVENTIONS: SOCIAL SERVICE ASSESSMENT PATIENT WITH SITTER PROTOCOL IN PLACE REFERRAL FOR INPATIENT PSYCH HOSPITALIZATION ONEAL SWANN MSW, WAREHOUSE UNLOADER.
[2019-07-03] MEDS: Aspirin 325 MG Tablet PO (17:05)
[2019-07-03 17:07] VITALS: RESP 18
[2019-07-03 17:10] LABS: Absolute Lymphocyte Count 2.52 X10^3/uL (0.83-4.51); Absolute Neutrophil Count 3.1 X10^3/uL (2.0-7.7); Basophil# 0.03 X10^3/uL; Basophil% 0.5 % (0-1); Eosinophil# 0.22 X10^3/uL; Eosinophils% 3.5 % (0-5); Hematocrit 34.9 % (37-47); Hemoglobin 12.3 g/dL (12.0-15.0); Lymphocyte # 2.52 X10^3/ul (4.0); Lymphocyte % 39.7 % (19-41); Mean Corp Hgb Conc 35.2 g/dL (32-36); Mean Corpuscular Hgb 32.3 pg (27.0-32.0); Mean Corpuscular Volume 91.6 fL (81-99); Mean Platelet Vol. 10.5 fl (6.2-12.0); Monocyte# 0.42 X10^3/uL; Monocyte% 6.6 % (0-10); NRBC Flagged by Analyzer 0 % (0-5); Neutrophil # 3.12 X10^3/uL (2.7-7.7); Neutrophil % 49.2 % (47-70); Platelet Count 240 K/mm3 (150-450); RBC Distribution Width CV 12.1 % (11.6-14.6); RBC Distribution Width SD 40.7 fl (35.1-43.9); Red Blood Count 3.81 M/mm3 (4.2-5.4); White Blood Count 6.3 K/mm3 (4.4-11.0)
[2019-07-03 17:14] LABS: Amphetamine Urine VISTA NEGATIVE (<1000 ng/mL); Barbiturate Urine VISTA NEGATIVE (< 200 ng/mL); Benzodiazepine Urine VISTA NEGATIVE (< 200 ng/mL); Cocaine Urine VISTA NEGATIVE (< 300 ng/mL); Ecstacy Urine VISTA NEGATIVE (< 500 ng/mL); Methadone Urine VISTA NEGATIVE (< 300 ng/mL); PCP Urine VISTA NEGATIVE (< 25 ng/mL); THC Urine VISTA NEGATIVE (< 50 ng/mL); Vista UDS pH Range 6
[2019-07-03 17:32] LABS: AST(SGOT) 12 U/L (15-37); Alanine Aminotransfer ALT/SGPT 20 U/L (13-56); Albumin, Serum 4.1 g/dL (3.2-5.0); Alkaline Phosphatase 53 U/L (45-117); Anion Gap 6 (5-15); BUN 10 mg/dL (7-18); BUN/Creat Ratio 11.7 RATIO (10-20); Bilirubin, Direct 0.08 mg/dL (0.00-0.30); Calcium,Total 9.3 mg/dL (8.5-10.1); Chloride 107 mmol/L (98-107); Creatinine, Serum 0.85 mg/dL (0.55-1.02); EST Glomerular Filtration Rate 71 mL/min (>60); Est Glom Filt Rate - Afr Amer 86 mL/min (>60); Estimated Creatinine Clearance 56.98 ml/min; Globulin 3.4 g/dL (2.2-4.2); Glucose 149 mg/dL (74-106); Potassium 3.7 mmol/L (3.5-5.1); Protein, Total 7.5 g/dL (6.4-8.2); Sodium Level 140 mmol/L (136-145)
[2019-07-03 18:26] LABS: Acetaminophen (Tylenol) Level < 2.0 ug/mL (10.0-30.0)
[2019-07-03 19:15] VITALS: RESP 17
--- NOTE | 2019-07-03 19:30 | CM.ED ---
SOCIAL WORK REFERRAL CALLED AND FAXED TO [facility]. GARNETT MACHINE OPERATOR TO REVIEW REFERRAL AND GET BACK TO THIS WORKER. ONEAL SWANN, MEDICAL OFFICE PROFESSIONAL INSTRUCTOR, RIVET BUCKER.
[2019-07-03 20:19] VITALS: RESP 17
--- NOTE | 2019-07-03 20:43 | CM.ED ---
SOCIAL WORK MET WITH PATIENT IN ROOM TO UPDATE ON REFERRAL TO [facility]. PATIENT REQUESTING THIS WORKER CALL TO UPDATED. CALL TO PATIENT'S AND UPDATED ON PLAN FOR INPATIENT HOSPITALIZATION. REQUESTED THIS WORKER CALL PATIENT'S SISTER/ARLINOA, QUANG PRIETO [phone]. CALL TO PATIENT'S SISTER AND UPDATED ON PATIENT'S STATUS AND PLAN FOR INPATIENT HOSPITALIZATION. SISTER IN AGREEMENT WITH PLAN. PATIENT UPDATED ON THE ABOVE. PATIENT REMAINS CALM AND COOPERATIVE. ONEAL SWANN, SUPERVISOR CD AREA, OFFICE REP.
[2019-07-03 20:47] VITALS: BP 155/80; PULSE 84; RESP 16; TEMP 37.3; O2SAT 98
[2019-07-03 20:48] LABS: Bacteria 0 SEEN /hpf (None Seen); Mucous, Urine 0 SEEN /hpf (<or=2+); Red Blood Cells-Urine 0 SEEN /hpf (0-5)
[2019-07-03 20:49] LABS: Color, Urine Yellow (Yellow); Glucose, Dipstick 50 mg/dl (Normal); Ketone-Dipstick Negative (Negative); Leukocyte Esterase-Dipstick 100 /ul (Negative); Nitrite-Dipstick Negative (Negative); Occult Blood-Urine Negative /ul (Negative); Protein-Dipstick Negative (Negative); Urine Bilirubin Dipstick Negative (Negative); Urine Clarity Clear (Clear); Urine Urobilinogen Normal (Normal)
[2019-07-03 20:57] LABS: Squamous Epithelial Cells - UA 0-5 SEEN /hpf (5-10); White Blood Cells 0-5 SEEN /hpf (0-5)
--- NOTE | 2019-07-03 21:10 | CM.ED ---
SOCIAL WORK COMPLETE UA AND UPDATED VITALS FAXED TO [facility] PER REQUEST. ONEAL SWANN, AVIATION MAINTENANCE TECHNICIAN, HEADING MATCHER AND ASSEMBLER.
--- NOTE | 2019-07-03 21:31 | CM.ED ---
SOCIAL WORK PINK SLIP FAXED TO [facility] PER REQUEST. ONEAL SWANN, PEARL DIVER, CREDIT RELATIONSHIP MANAGER
--- NOTE | 2019-07-03 21:37 | CM.ED ---
SOCIAL WORK RECEIVED CALL FROM SCARF AND ANNEAL OPERATOR AT [facility] REQUESTING VOLUNTARY FORM BE SIGNED BY PATIENT'S HPOA. WORKER STATES ABLE TO OBTAIN VERBAL CONSENT OVER THE PHONE FROM PATIENT'S HPOA, QUANG PRIETO. WILL FAX FORM ONCE COMPLETED. ONEAL SWANN, NAIL KEGGER, CAR DEALER.
--- NOTE | 2019-07-03 21:49 | CM.ED ---
SOCIAL WORK VERBAL CONSENT FROM PATIENT'S SISTER, QUANG PRIETO OBTAINED VIA PHONE CALL RECEIVED BY THIS WORKER AND NURSE, AILYN. PATIENT ALSO SIGNED VOLUNTARY FORM. SIGNED FORMS FAXED BACK TO [facility] AT THIS TIME. ONEAL SWANN, TRIAL JUSTICE, IP TECHNOLOGY TRANSACTIONS ATTORNEY.
[2019-07-03] MEDS: Acetaminophen 325 MG Tablet 650 MG PO (22:05)
--- NOTE | 2019-07-03 22:11 | CM.ED ---
SOCIAL WORK CALL FROM [facility]. PATIENT ACCEPTED BY DR. PIRES. REPORT TO BE CALLED TO . [facility] SCHEDULED TRANSPORT WITH [facility] FOR TOMORROW-10:30A [employer] STATISTICAL PROGRAMMER. PATIENT AND STAFF UPDATED. NURSE TO CALL REPORT THIS EVENING PER REQUEST OF FACILITY. ONEAL SWANN, SACK KEEPER, HOGSHEAD FILLER.
--- NOTE | 2019-07-03 23:11 | ED.RN ---
adjusting time on vital signs. stated agitation but cannot undo. adjusted time.
[2019-07-04] VITALS (9 sets, daily range): BP systolic 139–156; BP diastolic 57–79; PULSE 68–80; RESP 15–18; TEMP 37.1; O2SAT 96–99
--- NOTE | 2019-07-04 01:06 | ED.RN ---
called report to [place] nurse at [facility]. picking belt operator time for approx 1030. call when pt leaves.
[2019-07-04] MEDS: MELATONIN 10 MG TABLET PO (03:47)
--- NOTE | 2019-07-04 09:55 | CM.ED ---
SOCIAL WORK RECEIVED CALL FROM RAYSA EWING UPDATED ON NEW TIME FOR CANCER RESEARCHER, 1PM. UPDATED STAFF. ONEAL SWANN, PLANER OPERATOR / GRADER, FUNERAL HOME MANAGER.
[2019-07-04] MEDS: Metoprolol Tartrate 25 MG Tablet PO (09:57)
[2019-07-04] MEDS: metFORMIN HCl 1,000 MG Tablet 1000 MG PO (09:57)
[2019-07-04] MEDS: Aspirin E.C. 81 MG Tablet PO (09:58)
[2019-07-04] MEDS: Clopidogrel Bisulfate 75 MG Tablet PO (09:58)
[2019-07-04] MEDS: Lisinopril 5 MG Tablet PO (09:58)
[2019-07-04] MEDS: Furosemide 40 MG Tablet PO (09:58)
[2019-07-04] MEDS: Pantoprazole Sodium 40 MG Tablet PO (09:58)
== END 2019-07-04 12:17 ==
PROVIDERS: Emergency Provider Emergency Medicine; Family Provider Family Medicine; PCP Family Medicine
DX: F32.9 Major depressive disorder, single episode, unspecified (principal); R45.851 Suicidal ideations; F20.9 Schizophrenia, unspecified; Z91.14 Patient's other noncompliance with medication regimen; F31.9 Bipolar disorder, unspecified; I10 Essential (primary) hypertension; J44.9 Chronic obstructive pulmonary disease, unspecified; I25.10 Atherosclerotic heart disease of native coronary artery without angina pectoris; K21.9 Gastro-esophageal reflux disease without esophagitis; E11.65 Type 2 diabetes mellitus with hyperglycemia; Z86.73 Personal history of transient ischemic attack (TIA), and cerebral infarction without residual deficits; Z95.5 Presence of coronary angioplasty implant and graft; Z79.82 Long term (current) use of aspirin; Z79.4 Long term (current) use of insulin; Z79.02 Long term (current) use of antithrombotics/antiplatelets; Z79.84 Long term (current) use of oral hypoglycemic drugs; Z79.899 Other long term (current) drug therapy; Z87.891 Personal history of nicotine dependence
CPT/HCPCS: 80048; 80076; 80307; 80320; 80329; 81001; 85025; 93005; 99283; A4216; G0480

== ENCOUNTER 2019-07-18 18:45 | Emergency (ER) | payer MEDICARE, SELFPAY ==
[2017-03-16 08:30] VITALS: BMI 29.2
[2019-07-18 18:45] VITALS: BP 146/74; PULSE 95; RESP 19; TEMP 36.8; O2SAT 99; BMI 27.9
--- NOTE | 2019-07-18 18:48 | ED.RN ---
CALLED FOR EKG PER RN REQUEST, PULLED OLD EKGS FOR
--- NOTE | 2019-07-18 19:00 | EKG12_ITS ---
Test Reason : CP Blood Pressure : / mmHG Vent. Rate : 089 BPM Atrial Rate : 089 BPM P-R Int : 152 ms QRS Dur : 074 ms QT Int : 382 ms P-R-T Axes : 043 033 035 degrees QTc Int : 464 ms Normal sinus rhythm Normal ECG Confirmed by TJ BARFIELD, GLORY ([id number]), greeting card editor TAQUERIA CHAMBERLAIN ([id number]) on 07/25/2019 9:33:13 A M Referred By: Confirmed By:AL SPENCER MD
--- NOTE | 2019-07-18 19:00 | RAD_ITS ---
STUDY: X-RAY CHEST REASON FOR EXAM: Female, 63 years old. Chest pain TECHNIQUE: Single frontal view of the chest. COMPARISON: May FINDINGS: Coronary artery stent. The lungs are clear and expanded. There is no demonstrated pleural abnormality. Normal size heart. Normal mediastinum and jovan. Normal visualized pulmonary arteries. Normal visualized aortic arch and descending thoracic aorta. Normal visualized thoracic spine. Normal visualized ribs, clavicles, and shoulders. There is no demonstrated abnormality of the visualized soft tissue structures of the upper abdomen. RAD/Chest 1 View (Portable) IMPRESSION: No acute disease Electronically Signed: Norris Brice MD at 19:23 EDT , Service support ,
--- NOTE | 2019-07-18 19:01 | ED.VISSUMM ---
- ER Visit Summary Date of Service: 07/18/19 Chief Complaint: Chest pain History of Present Illness: The patient is a 63 F presenting with chest pain. She states this started around 2:30 PM. She has had intermittent pain in her chest that starts substernal and radiates to her left arm. She has had associated nausea, vomiting, diaphoresis, shortness of breath. She states this feels similar to her previous heart attacks. This started during an argument with her sister. She has history of hypertension, diabetes, hypercholesteremia, early family history of heart disease. She is a previous smoker. She has history of previous PE and uterine cancer. Physical Examination: Vitals are stable. Patient is afebrile. Alert no acute distress. HEENT exam is unremarkable. Neck is supple. Lungs are clear and equal bilaterally. Heart is regular rate and rhythm. Abdomen is soft nontender nondistended. Extremities are unremarkable. Skin is warm and dry. No focal neurologic deficit. Remainder of exam is unremarkable. Emergency Department Course and Treatment: She was given aspirin, Dilaudid due to morphine allergy. EKG is sinus rate of 89 with no acute ischemic changes. Chest x-ray shows no acute process. CBC normal except hemoglobin 10.8. Chemistries normal except glucose 162. Troponin is negative. D-dimer 0.53. Due to elevated d-dimer, CTA chest was obtained and shows bilateral nonspecific groundglass opacities and coronary artery disease. There is no demonstrated pulmonary embolism. She has no fever or cough. On reevaluation, she is feeling improved. She does not wish to stay in the hospital. She understands the risks of leaving AGAINST MEDICAL ADVICE including [place] and . She chooses to sign out AGAINST MEDICAL ADVICE. She will follow-up with her primary care physician. Advised return to ED for worsening complaints. Disposition: Left AGAINST MEDICAL ADVICE Impression: Chest pain This note was generated with Showbie dictation software. It may contain incorrect words, spelling, and punctuation that were not noted in review of the chart prior to signing ED Disposition - Plan for ED Patient: Instructions: CHEST PAIN, Uncertain Cause Referrals: Bulmaro Nogueira DO [Primary Care Provider] -
[2019-07-18] MEDS: Aspirin 81 MG TAB.CHEW 324 MG PO (19:09)
[2019-07-18] MEDS: HYDROmorphone 1 MG/ML Syringe IV (19:09)
[2019-07-18] MEDS: Ondansetron 4 MG/2 ML Vial IV (19:16)
[2019-07-18 19:28] LABS: Absolute Lymphocyte Count 3.24 X10^3/uL (0.83-4.51); Absolute Neutrophil Count 3.5 X10^3/uL (2.0-7.7); Basophil# 0.04 X10^3/uL; Basophil% 0.5 % (0-1); Eosinophil# 0.25 X10^3/uL; Eosinophils% 3.2 % (0-5); Hematocrit 31.4 % (37-47); Hemoglobin 10.8 g/dL (12.0-15.0); Lymphocyte # 3.24 X10^3/ul (4.0); Lymphocyte % 41.6 % (19-41); Mean Corp Hgb Conc 34.4 g/dL (32-36); Mean Corpuscular Hgb 32.3 pg (27.0-32.0); Mean Platelet Vol. 10.5 fl (6.2-12.0); Monocyte# 0.69 X10^3/uL; Monocyte% 8.9 % (0-10); NRBC Flagged by Analyzer 0 % (0-5); Neutrophil # 3.54 X10^3/uL (2.7-7.7); Neutrophil % 45.4 % (47-70); Platelet Count 247 K/mm3 (150-450); RBC Distribution Width CV 12.1 % (11.6-14.6); RBC Distribution Width SD 41.6 fl (35.1-43.9); Red Blood Count 3.34 M/mm3 (4.2-5.4); White Blood Count 7.8 K/mm3 (4.4-11.0)
[2019-07-18 19:33] LABS: Anion Gap 8 (5-15); BUN 17 mg/dL (7-18); BUN/Creat Ratio 16.7 RATIO (10-20); Calcium,Total 8.5 mg/dL (8.5-10.1); Chloride 108 mmol/L (98-107); Creatinine, Serum 1.02 mg/dL (0.55-1.02); EST Glomerular Filtration Rate 58 mL/min (>60); Est Glom Filt Rate - Afr Amer 70 mL/min (>60); Estimated Creatinine Clearance 45.49 ml/min; Glucose 162 mg/dL (74-106); Potassium 4.2 mmol/L (3.5-5.1); Sodium Level 144 mmol/L (136-145)
[2019-07-18 19:42] LABS: D-Dimer Quantitative (DVT/PE) 0.53 FEU/ug/m (0.27-0.49)
--- NOTE | 2019-07-18 19:50 | ED.RN ---
lab called with critical lab results. D dimer 0.59. Dr. malone made aware no new orders at this time
--- NOTE | 2019-07-18 19:51 | CT_ITS ---
STUDY: CTA CHEST REASON FOR EXAM: Female, 63 years old. Chest pain and shortness of breath RADIATION DOSAGE (If Supplied By Facility): CTDIvol = ( 11.795 ) mGy, DLP = ( 341.49 ) mGycm TECHNIQUE: The examination was performed with the intravenous administration of IV Isovue 300 100. Post-processing of the angiographic images was performed, with multiplanar reformation and 3D reconstruction. Individualized dose optimization techniques were used for this CT. COMPARISON: July 18, 2019 chest x-ray and CTA chest June 30, 2015 FINDINGS: Normal enhancement of the main pulmonary artery and right and left pulmonary arteries. Normal enhancement of the bilateral peripheral pulmonary arteries. There is no demonstrated pulmonary embolism. Normal thoracic aorta and visualized great vessels. There is no demonstrated aortic dissection. Normal heart and pericardium. Calcific coronary artery disease. Normal mediastinum. Normal hilar regions. Normal visualized trachea and bronchi. Bibasilar groundglass infiltrates. Normal pulmonary parenchyma. Normal pleura. Normal chest wall structures. Normal osseous structures. Normal visualized upper abdomen. CT/CTA Chest W/WO Contrast IMPRESSION: Bilateral nonspecific groundglass opacities and coronary artery disease. Electronically Signed: Norris Brice MD at 20:32 EDT , Service support ,
[2019-07-18 20:22] VITALS: BP 124/64; PULSE 90; RESP 18; O2SAT 93
--- NOTE | 2019-07-18 20:50 | ED.DEP ---
ED Disposition - Plan for ED Patient: Instructions: CHEST PAIN, Uncertain Cause Referrals: Bulmaro Nogueira DO [Primary Care Provider] -
== END 2019-07-18 21:09 | disposition left against medical advice (07) ==
LOC: ED 19:29
PROVIDERS: Emergency Provider Emergency Medicine; Family Provider Family Medicine; PCP Family Medicine
DX: R07.9 Chest pain, unspecified (principal); R11.2 Nausea with vomiting, unspecified; R61 Generalized hyperhidrosis; R06.00 Dyspnea, unspecified; R79.89 Other specified abnormal findings of blood chemistry; Z53.21 Procedure and treatment not carried out due to patient leaving prior to being seen by health care provider; I25.10 Atherosclerotic heart disease of native coronary artery without angina pectoris; I25.2 Old myocardial infarction; E11.9 Type 2 diabetes mellitus without complications; I10 Essential (primary) hypertension; E78.00 Pure hypercholesterolemia, unspecified; Z82.49 Family history of ischemic heart disease and other diseases of the circulatory system; Z85.42 Personal history of malignant neoplasm of other parts of uterus; Z86.711 Personal history of pulmonary embolism; Z95.5 Presence of coronary angioplasty implant and graft; Z79.82 Long term (current) use of aspirin; Z79.02 Long term (current) use of antithrombotics/antiplatelets; Z79.84 Long term (current) use of oral hypoglycemic drugs; Z79.4 Long term (current) use of insulin; Z79.899 Other long term (current) drug therapy; Z87.891 Personal history of nicotine dependence
CPT/HCPCS: 71045; 71275; 80048; 84484; 85025; 85379; 93005; 96374; 96375; 99285; Q9967; A4216; J2405

== ENCOUNTER 2019-07-26 11:54 | Emergency (ER) | payer MEDICARE, SELFPAY ==
[2017-03-16 08:30] VITALS: BMI 29.2
[2019-07-26 11:55] VITALS: BP 135/65; PULSE 92; RESP 18; TEMP 36.6; O2SAT 99; BMI 27.4
--- NOTE | 2019-07-26 12:05 | ED.VIS.GEN ---
History of Present Illness Chief Complaint: Chest Other Detail of Chief Complaint: Right-sided posterior chest pain Informant: Patient Onset: 199 Context: Sudden Onset Timing: Continuous Quality: Pain with pleuritic component Location: Right scapula Current Severity: Mild Maximum Severity: Moderate Worsened by: Breathing Relieved by: Nothing Associated Symptoms: Cough Narrative: Patient is an elderly woman who presents with acute onset of pleuritic right scapular pain associated with nonproductive cough. She denies rhinorrhea, congestion or postnasal drainage. She denies ear pain, ringing or ears or decreased hearing. She denies throat pain or change in voice. She denies history of PE or DVT. She denies history of leg pain, swelling or discoloration. She has no risk factors for pulmonary embolus. She states she stopped smoking 1 year ago. Her daughter was shaking her head no. She is status post cholecystectomy. She has no food intolerance. She denies black or maroon stool. Prior similar symptoms: No Recent Illness/Hospitalization: No - Past Medical History (1) Dysphagia Status: Acute (2) Left-sided weakness Status: Acute (3) Benign essential hypertension Status: Chronic (4) Bipolar disorder Status: Chronic (5) COPD (chronic obstructive pulmonary disease) Status: Chronic Comment: cont smoking (6) CVA (cerebral vascular accident) Status: Chronic (7) Coronary artery disease Status: Chronic Comment: ROMEL LAD 01/21 (8) Hyperlipidemia Status: Chronic (9) Uncontrolled type 2 diabetes mellitus Status: Chronic (10) TIA (transient ischemic attack) Status: Suspected Past Medical History - Allergies and Home Meds Allergies/Adverse Reactions: Allergies Penicillins Allergy (Verified 07/26/19 11:57) Hives morphine Adverse Reaction (Mild, Verified 07/26/19 11:57) Itching hydrocodone bitartrate [From Vicodin] Adverse Reaction (Verified 07/26/19 11:57) Vomiting ibuprofen Adverse Reaction (Verified 07/26/19 11:57) Vomiting Primary Care Physician: Bulmaro Nogueira DO [Primary Care Provider] - Prior records reviewed: Yes Surgical History: angioplasty, appendectomy, cholecystectomy, hysterectomy Lives: Alone Smoking Status: Former smoker Alcohol: None Drugs: None - Family History Maternal Family History: Reports: Cancer - Uterine cancer, Diabetes, Heart Disease Paternal Family History: Reports: Heart Disease Sibling Family History: Reports: Diabetes, Heart Disease, Hypertension Review of Systems General: Denies: Chills, Fever, Malaise, Sweats Eyes: Denies: Visual changes - bilaterally, Blurred Vision - bilaterally, Diplopia ENT: Denies: Bilateral ear pain, Rhinorrhea, Sore throat Cardiovascular: Reports: Chest pain Respiratory: Reports: Dyspnea, Cough, Dyspnea on exertion, Orthopnea - Chronic stable 3 pillow orthopnea. Denies: Sputum Gastrointestinal: Denies: Abdominal pain, Nausea, Vomiting, Diarrhea, Melena, Hematochezia Genitourinary: Denies: Dysuria, Hematuria, Frequency Musculoskeletal: Denies: Myalgias, Arthralgias, Neck pain, Back pain, Swelling, Extremity Pain Skin: Denies: Rash, Wounds Neurological: Denies: Headache, Weakness, Numbness Hematologic: Denies: Easy bruising, Easy bleeding Physical Exam Vital Signs/Narrative: Vital Signs Temp Pulse Resp BP Pulse Ox 07/26/19 11:55 98 F 92 18 135/65 H 99 Inital Vital Signs reviewed: Yes General: Well nourished, Well developed, No Acute Distress Head: Normocephalic, Atraumatic Eyes: Perrl, EOMI ENT: Moist mucous membranes, No rhinorrhea Neck: Supple, Nontender Cardiovascular: Regular rate, Regular rhythm, No murmurs, Normal S1, Normal S2 Respiratory: No distress, CTA bilaterally, Chest nontender, Diminished - Diminished breath sounds right side. There is no hyperresonance to percussion. Abdomen: Soft, Nontender, Nondistended, Normal bowel sounds Back: Nontender, Normal Inspection. Negative for: CVA tenderness Extremities: Nontender, No edema, - - There is no asymmetry, swelling, discoloration, leg vein distention, palpable cords or tenderness along the distribution of the deep venous system. Skin: Normal color, No rash, No Trauma. Negative for: Cyanosis, Diaphoresis, Jaundice Neurological: Alert, Oriented x3, Cranial nerves II-XII grossly intact, Normal Strength, Normal Sensation, Normal Gait Psychological: Depressed Diagnostic/Tx/Re-eval Chest X-Ray - ED: 2 View, Read by ED Physician, Normal, Heart, Mediastinum, Bony Structures, No Acute Disease, Chronic Changes, - - Is a difference in technique compared to prior otherwise there is no interval change noted. Time of interpretation 1236 07/26/19 12:25 Chest PA and Lateral [RAD] Stat Laboratory Results 07/26/19 07/26/19 07/26/19 12:14 12:14 12:14 WBC 7.6 RBC 3.93 L Hgb 12.5 Hct 36.9 L MCV 93.9 MCH 31.8 MCHC 33.9 RDW Std Deviation 43.9 RDW Coeff of Alma 12.7 Plt Count 316 MPV 10.1 Immature Gran % (Auto) 0.400 Neut % (Auto) 52.6 Lymph % (Auto) 37.2 Wil[place]ger % (Auto) 6.2 Eos % (Auto) 2.9 Baso % (Auto) 0.7 Absolute Neuts (auto) 4.0 Absolute Lymphs (auto) 2.84 Nucleated RBC % 0 D-Dimer Quant (PE/DVT) 0.48 Sodium 139 Potassium 4.2 Chloride 108 H Carbon Dioxide 25.0 Anion Gap 6 BUN 10 Creatinine 0.87 Estim Creat Clear Calc 53.33 Est GFR (MDRD) Af Amer 83 Est GFR (MDRD) Non-Af 69 BUN/Creatinine Ratio 11.4 Glucose 139 H Calcium 9.5 CBC is normal. D-dimer is normal. Electrode panel is normal. Chest x-ray reveals no acute pathology. Patient was treated with NSAIDs for pleuritic chest pain - Rhythm Strip Rhythm Strip: Sinus Rhythm Rate: 90 Ectopy: None - Medical Decision Making With abrupt onset of pleuritic pain shortness of breath need to evaluate for spontaneous pneumothorax, pulmonary embolus, pneumonia. Work-up including chest x-ray, basic metabolic panel to assess renal function in the event a CTA is indicated. D-dimer since she is not PERC negative. CBC to assess white count and H&H. She was made of her results at 1246. She was awakened from sleep. Reports improvement. ED Disposition - Plan for ED Patient: Disposition: Home or Assisted Living Diagnosis: Pleuritic chest pain Instructions: Pleurisy Prescriptions: Naproxen [Naprosyn] 500 mg PO BID #14 tab Prescription Printed Referrals: Bulmaro Nogueira DO [Primary Care Provider] - 3-5 Days if not improving
[2019-07-26 12:10] VITALS: PULSE 87; RESP 20; O2SAT 99
--- NOTE | 2019-07-26 12:25 | RAD_ITS ---
STUDY: X-RAY CHEST REASON FOR EXAM: Female, 63 years old. Pleuritic chest pain. TECHNIQUE: PA and lateral views of the chest. COMPARISON: Comparison is made with prior study July 18, 2019. FINDINGS: EKG electrodes are seen. The lungs are clear and expanded. There is no demonstrated pleural abnormality. Normal size heart. There is evidence of coronary artery stenting. Normal mediastinum and jovan. Normal visualized pulmonary arteries. Normal visualized aortic arch and descending thoracic aorta. There are mild degenerative changes of the visualized thoracic spine. Normal visualized ribs, clavicles, and shoulders. There is no demonstrated abnormality of the visualized soft tissue structures of the upper abdomen. RAD/Chest PA and Lateral IMPRESSION: No acute abnormality is seen. Electronically Signed: Uriah Weathers, at 12:52 EDT , Service support ,
[2019-07-26 12:27] LABS: Absolute Lymphocyte Count 2.84 X10^3/uL (0.83-4.51); Basophil# 0.05 X10^3/uL; Basophil% 0.7 % (0-1); Eosinophil# 0.22 X10^3/uL; Eosinophils% 2.9 % (0-5); Hematocrit 36.9 % (37-47); Hemoglobin 12.5 g/dL (12.0-15.0); Lymphocyte # 2.84 X10^3/ul (4.0); Lymphocyte % 37.2 % (19-41); Mean Corp Hgb Conc 33.9 g/dL (32-36); Mean Corpuscular Hgb 31.8 pg (27.0-32.0); Mean Corpuscular Volume 93.9 fL (81-99); Mean Platelet Vol. 10.1 fl (6.2-12.0); Monocyte# 0.47 X10^3/uL; Monocyte% 6.2 % (0-10); NRBC Flagged by Analyzer 0 % (0-5); Neutrophil # 4.02 X10^3/uL (2.7-7.7); Neutrophil % 52.6 % (47-70); Platelet Count 316 K/mm3 (150-450); RBC Distribution Width CV 12.7 % (11.6-14.6); RBC Distribution Width SD 43.9 fl (35.1-43.9); Red Blood Count 3.93 M/mm3 (4.2-5.4); White Blood Count 7.6 K/mm3 (4.4-11.0)
[2019-07-26] MEDS: Ondansetron 4 MG/2 ML Vial IV (12:32)
[2019-07-26] MEDS: Ketorolac 15 MG/ML Vial IV (12:34)
[2019-07-26 12:35] LABS: D-Dimer Quantitative (DVT/PE) 0.48 FEU/ug/m (0.27-0.49)
[2019-07-26 12:39] LABS: Anion Gap 6 (5-15); BUN 10 mg/dL (7-18); BUN/Creat Ratio 11.4 RATIO (10-20); Calcium,Total 9.5 mg/dL (8.5-10.1); Chloride 108 mmol/L (98-107); Creatinine, Serum 0.87 mg/dL (0.55-1.02); EST Glomerular Filtration Rate 69 mL/min (>60); Est Glom Filt Rate - Afr Amer 83 mL/min (>60); Estimated Creatinine Clearance 53.33 ml/min; Glucose 139 mg/dL (74-106); Potassium 4.2 mmol/L (3.5-5.1); Sodium Level 139 mmol/L (136-145)
[2019-07-26 13:00] VITALS: BP 132/57; PULSE 76; RESP 18; O2SAT 100
== END 2019-07-26 13:01 | disposition home or self-care (01) ==
PROVIDERS: Emergency Provider Emergency Medicine; Family Provider Family Medicine; PCP Family Medicine
DX: R09.1 Pleurisy (principal); I10 Essential (primary) hypertension; F31.9 Bipolar disorder, unspecified; J44.9 Chronic obstructive pulmonary disease, unspecified; I25.10 Atherosclerotic heart disease of native coronary artery without angina pectoris; E11.9 Type 2 diabetes mellitus without complications; Z95.5 Presence of coronary angioplasty implant and graft; Z90.49 Acquired absence of other specified parts of digestive tract; Z79.82 Long term (current) use of aspirin; Z79.4 Long term (current) use of insulin; Z79.84 Long term (current) use of oral hypoglycemic drugs; Z79.899 Other long term (current) drug therapy; Z87.891 Personal history of nicotine dependence
CPT/HCPCS: 71046; 80048; 85025; 85379; 96374; 96375; 99284; A4216; J2405

== ENCOUNTER 2019-10-03 17:23 | Emergency (ER) | payer MEDICARE, SELFPAY ==
[2017-03-16 08:30] VITALS: BMI 29.2
[2019-10-03 17:24] VITALS: BP 166/79; PULSE 93; RESP 15; TEMP 36.4; O2SAT 99; BMI 24.7
--- NOTE | 2019-10-03 18:06 | ED.VIS.GI ---
History of Present Illness Chief Complaint: Abd Pain Informant: Patient - Abdominal Pain/Flank Pain Onset: Days - 3 Context: Gradual Onset Timing: Continuous Quality: Aching Location: - - Across upper abdomen, worse right upper quadrant Current Severity: Severe Maximum Severity: Severe Worsened by: Nothing - Has not eaten anything in 3 days so unknown if food helps or makes worse Relieved by: Nothing - Only medication she has tried is gabapentin, which she states her doctor prescribed her 3 days ago for this pain - Nausea/Vomiting/Emesis GI Symptom: Nausea. Negative for: Vomiting - Diarrhea/Melena/Hematochezia GI Symptom: Negative for: Diarrhea, Melena, Hematochezia Associated Symptoms: Negative for: Dysuria, Frequency, Hematuria, Urgency Narrative: Patient has had epigastric pain for 3 or 4 months off and on. She cannot answer any questions regarding details of this, such as whether food makes it better or worse, it radiates, or is associated with any other symptoms. For the past 3 days she has had pain in her right upper quadrant that is also all the way across her upper abdomen. It has decreased her appetite. It has been constant and not colicky or radiating into her back or anywhere else. She denies any chest symptoms. She states that she had a scope that showed something abnormal several months ago and she is scheduled for another one coming up. - Past Medical History (1) Benign essential hypertension Status: Chronic (2) Bipolar disorder Status: Chronic (3) COPD (chronic obstructive pulmonary disease) Status: Chronic Comment: cont smoking (4) CVA (cerebral vascular accident) Status: Chronic (5) Constipation Status: Chronic (6) Coronary artery disease Status: Chronic Comment: ROMEL LAD 01/21 (7) GERD (gastroesophageal reflux disease) Status: Chronic (8) Hyperlipidemia Status: Chronic (9) Tobacco abuse Status: Chronic (10) Uncontrolled type 2 diabetes mellitus Status: Chronic (11) TIA (transient ischemic attack) Status: Suspected (12) Stroke Status: Ruled-out Past Medical History - Allergies and Home Meds Allergies/Adverse Reactions: Allergies Penicillins Allergy (Verified 07/26/19 11:57) Hives hydrocodone bitartrate [From Vicodin] Adverse Reaction (Verified 07/26/19 11:57) Vomiting ibuprofen Adverse Reaction (Verified 07/26/19 11:57) Vomiting Primary Care Physician: Brown,Bulmaro, DO [Primary Care Provider] - Surgical History: angioplasty, appendectomy, cholecystectomy, hysterectomy Lives: With Family Smoking Status: Current every day smoker Alcohol: None - Family History Maternal Family History: Reports: Cancer - Uterine cancer, Diabetes, Heart Disease Paternal Family History: Reports: Heart Disease Sibling Family History: Reports: Diabetes, Heart Disease, Hypertension Review of Systems General: Reports: Malaise. Denies: Chills, Fever, Sweats Eyes: Denies: Visual changes - bilaterally, Diplopia ENT: Denies: Bilateral ear pain, Rhinorrhea, Sore throat Cardiovascular: Denies: Chest pain, Palpitations Respiratory: Denies: Dyspnea, Cough, Dyspnea on exertion Gastrointestinal: Reports: Abdominal pain, Nausea. Denies: Vomiting, Diarrhea, Melena, Hematochezia Genitourinary: Denies: Dysuria, Hematuria, Frequency Musculoskeletal: Denies: Back pain, Swelling, Extremity Pain Skin: Denies: Rash, Wounds Neurological: Denies: Headache, Weakness - Nothing acute, Numbness - Nothing acute Physical Exam Vital Signs/Narrative: Vital Signs Temp Pulse Resp BP Pulse Ox 10/03/19 17:24 97.6 F L 93 15 166/79 H 99 Inital Vital Signs reviewed: Yes General: Well nourished, Well developed, No Acute Distress Head: Normocephalic, Atraumatic Eyes: Perrl, EOMI ENT: Moist mucous membranes, No rhinorrhea Neck: Supple, Nontender, No JVD Cardiovascular: Regular rate, Regular rhythm, No murmurs Respiratory: No distress, CTA bilaterally, Chest nontender Abdomen: Soft, Nondistended, Normal bowel sounds, No masses, Tender - Right upper quadrant and epigastrium. Otherwise nontender.. Negative for: Guarding, Rebound tenderness, Pulsatile mass Back: Nontender, Normal Inspection. Negative for: CVA tenderness Extremities: Nontender, No edema. Negative for: Calf Tenderness Skin: Normal color, No rash, No Trauma Neurological: Alert, Oriented x3, Cranial nerves II-XII grossly intact, Normal Strength, Normal Sensation Psychological: - - Frustrated Diagnostic/Tx/Re-eval Impressions Chest X-Ray 10/03/19 18:08 IMPRESSION: No acute process Electronically Signed: Mike Thompson MD at 18:24 EST , Service support , 10/03/19 18:08 Chest 1 View (Portable) [RAD] Stat Laboratory Results 10/03/19 10/03/19 10/03/19 18:09 18:30 18:30 WBC 7.9 RBC 3.91 L Hgb 12.5 Hct 35.4 L MCV 90.5 MCH 32.0 MCHC 35.3 RDW Std Deviation 38.5 RDW Coeff of [place] 11.9 Plt Count 218 MPV 10.9 Immature Gran % (Auto) 0.400 Neut % (Auto) 39.3 L Lymph % (Auto) 48.9 H [place] % (Auto) 7.3 Eos % (Auto) 3.3 Baso % (Auto) 0.8 Absolute Neuts (auto) 3.1 Absolute Lymphs (auto) 3.87 Nucleated RBC % 0 Sodium 138 Potassium 4.1 Chloride 105 Carbon Dioxide 25.0 Anion Gap 8 BUN 17 Creatinine 0.97 Estim Creat Clear Calc 47.19 Est GFR (MDRD) Af Amer 74 Est GFR (MDRD) Non-Af 61 BUN/Creatinine Ratio 17.5 Glucose 233 H Calcium 9.1 Total Bilirubin 0.20 AST 18 ALT 24 Alkaline Phosphatase 67 Total Protein 7.3 Albumin 4.1 Globulin 3.2 Albumin/Globulin Ratio 1.3 Lipase 218 Urine Color Yellow Urine Clarity Sl. Cloudy Urine pH 7.0 Ur Specific [place] 1.010 Urine Protein Negative Urine Glucose (UA) 1000 H Urine Ketones Negative Urine Occult Blood Negative Urine Nitrite Negative Urine Bilirubin Negative Urine Urobilinogen Normal Ur Leukocyte Esterase 100 H Urine RBC 0 SEEN Urine WBC 5-10 SEEN Ur Squamous Epith Cells 0-5 SEEN Urine Bacteria 0 SEEN Urine Mucus 0 SEEN - Medical Decision Making Urine shows the possibility of infection, that was sent for culture and I will treat that. Right flank pain could be caused by early pyelonephritis, but she does not have any back tenderness and I think that is less likely here. After GI cocktail and morphine she is feeling better. She is not on a PPI or H2 elder so I will prescribe her 1 as well as a short course of Bactrim. She is advised to follow-up closely. Her liver enzymes were normal, there is no indication for an acute ultrasound since she has had a prior cholecystectomy, as she does not have any ancillary findings of a sending cholangitis. She is comfortable with this overall plan. ED Disposition - Plan for ED Patient: Disposition: Home or Assisted Living Diagnosis: Upper abdominal pain, UTI (urinary tract infection) Instructions: GASTRITIS vs. ULCER, Urinary Tract Infections in Women Prescriptions: Smz/Tmp Ds [Bactrim Ds] 1 tab PO BID #6 tab Prescription Printed Omeprazole 1 cap PO DAILY #30 capsule. Prescription Printed Referrals: Bulmaro Nogueira DO [Primary Care Provider] - 3-5 Days
--- NOTE | 2019-10-03 18:08 | RAD_ITS ---
STUDY: X-RAY CHEST REASON FOR EXAM: Female, 64 years old. UPPER ABDOMINAL PAIN, NAUSEA, ABNORMAL EGD TECHNIQUE: Single AP portable view of the chest. COMPARISON: July 26, 2019 FINDINGS: The lungs are clear and expanded. There is no demonstrated pleural abnormality. Normal size heart. Left cardiac vascular stent reidentified. The remaining structures are stable. RAD/Chest 1 View (Portable) IMPRESSION: No acute process Electronically Signed: Mike Thompson MD at 18:24 EST , Service support ,
[2019-10-03 18:15] LABS: Bacteria 0 SEEN /hpf (None Seen); Mucous, Urine 0 SEEN /hpf (<or=2+); Red Blood Cells-Urine 0 SEEN /hpf (0-5)
[2019-10-03 18:18] LABS: Color, Urine Yellow (Yellow); Glucose, Dipstick 1000 mg/dl (Normal); Ketone-Dipstick Negative (Negative); Leukocyte Esterase-Dipstick 100 /ul (Negative); Nitrite-Dipstick Negative (Negative); Occult Blood-Urine Negative /ul (Negative); Protein-Dipstick Negative (Negative); Urine Bilirubin Dipstick Negative (Negative); Urine Clarity Sl. Cloudy (Clear); Urine Urobilinogen Normal (Normal)
[2019-10-03 18:24] LABS: Squamous Epithelial Cells - UA 0-5 SEEN /hpf (5-10); White Blood Cells 5-10 SEEN /hpf (0-5)
[2019-10-03] MEDS: Ondansetron 4 MG/2 ML Vial IV (18:28)
[2019-10-03] MEDS: Morphine 4 MG/ML Syringe IV (18:28)
[2019-10-03] MEDS: Mag Hydrox/Al Hydrox/Simeth 30 ML UDC PO (18:28)
[2019-10-03] MEDS: 0.9% Normal Saline 1,000 ML 1000 ML IV (18:28)
[2019-10-03 18:39] LABS: Absolute Lymphocyte Count 3.87 X10^3/uL (0.83-4.51); Absolute Neutrophil Count 3.1 X10^3/uL (2.0-7.7); Basophil# 0.06 X10^3/uL; Basophil% 0.8 % (0-1); Eosinophil# 0.26 X10^3/uL; Eosinophils% 3.3 % (0-5); Hematocrit 35.4 % (37-47); Hemoglobin 12.5 g/dL (12.0-15.0); Lymphocyte # 3.87 X10^3/ul (4.0); Lymphocyte % 48.9 % (19-41); Mean Corp Hgb Conc 35.3 g/dL (32-36); Mean Corpuscular Volume 90.5 fL (81-99); Mean Platelet Vol. 10.9 fl (6.2-12.0); Monocyte# 0.58 X10^3/uL; Monocyte% 7.3 % (0-10); NRBC Flagged by Analyzer 0 % (0-5); Neutrophil # 3.11 X10^3/uL (2.7-7.7); Neutrophil % 39.3 % (47-70); Platelet Count 218 K/mm3 (150-450); RBC Distribution Width CV 11.9 % (11.6-14.6); RBC Distribution Width SD 38.5 fl (35.1-43.9); Red Blood Count 3.91 M/mm3 (4.2-5.4); White Blood Count 7.9 K/mm3 (4.4-11.0)
[2019-10-03 18:55] LABS: ALB/GLOB Ratio 1.3 RATIO (0.9-2.4); AST(SGOT) 18 U/L (15-37); Alanine Aminotransfer ALT/SGPT 24 U/L (13-56); Albumin, Serum 4.1 g/dL (3.2-5.0); Alkaline Phosphatase 67 U/L (45-117); Anion Gap 8 (5-15); BUN 17 mg/dL (7-18); BUN/Creat Ratio 17.5 RATIO (10-20); Calcium,Total 9.1 mg/dL (8.5-10.1); Chloride 105 mmol/L (98-107); Creatinine, Serum 0.97 mg/dL (0.55-1.02); EST Glomerular Filtration Rate 61 mL/min (>60); Est Glom Filt Rate - Afr Amer 74 mL/min (>60); Estimated Creatinine Clearance 47.19 ml/min; Globulin 3.2 g/dL (2.2-4.2); Glucose 233 mg/dL (74-106); Lipase 218 U/L (73-393); Potassium 4.1 mmol/L (3.5-5.1); Protein, Total 7.3 g/dL (6.4-8.2); Sodium Level 138 mmol/L (136-145)
--- NOTE | 2019-10-03 20:20 | ED.RN ---
pt called rn into room several times to get update that she is pending md review. Friend at bedside is very impatient to leave and that is pts ride. pt needed to leave and she wants her paperwork at triage so she can pick it up in am. rn agreed.
== END 2019-10-03 20:23 | disposition home or self-care (01) ==
PROVIDERS: Emergency Provider Emergency Medicine; Family Provider Family Medicine; PCP Family Medicine
DX: N39.0 Urinary tract infection, site not specified (principal); R10.11 Right upper quadrant pain; I10 Essential (primary) hypertension; F31.9 Bipolar disorder, unspecified; J44.9 Chronic obstructive pulmonary disease, unspecified; K21.9 Gastro-esophageal reflux disease without esophagitis; E11.9 Type 2 diabetes mellitus without complications; I25.10 Atherosclerotic heart disease of native coronary artery without angina pectoris; Z86.73 Personal history of transient ischemic attack (TIA), and cerebral infarction without residual deficits; Z95.5 Presence of coronary angioplasty implant and graft; Z90.49 Acquired absence of other specified parts of digestive tract; Z79.4 Long term (current) use of insulin; Z79.82 Long term (current) use of aspirin; Z79.84 Long term (current) use of oral hypoglycemic drugs; Z79.899 Other long term (current) drug therapy; F17.200 Nicotine dependence, unspecified, uncomplicated
CPT/HCPCS: 71045; 80053; 81001; 83690; 85025; 87086; 87088; 96361; 96374; 96375; 99284; J7030; A4216; J2405

== ENCOUNTER 2019-10-30 18:40 | Inpatient (IN) | payer MEDICARE, SELFPAY ==
[2017-03-16 08:30] VITALS: BMI 29.2
[2019-10-30] VITALS (8 sets, daily range): BP systolic 130–188; BP diastolic 64–76; PULSE 66–104; RESP 13–20; TEMP 36.8–37.4; O2SAT 95–98; BMI 27.2; BMI 26.8
--- NOTE | 2019-10-30 18:46 | ED.RN ---
RN CALLED FOR EKG, PULLED OLD EKGS FOR
--- NOTE | 2019-10-30 18:48 | ED.RN ---
pt reports had u/s upper abd on . found out results today. her dr called today to tell her she had enlarged spleen and infection
--- NOTE | 2019-10-30 19:10 | ED.RN ---
pt had emesis. brown and foul odor. pt reports no bm in [address] fernando signed up for pt, updated regarding new sx
--- NOTE | 2019-10-30 19:13 | EKG12_ITS ---
Test Reason : CP Blood Pressure : / mmHG Vent. Rate : 097 BPM Atrial Rate : 097 BPM P-R Int : 134 ms QRS Dur : 078 ms QT Int : 362 ms P-R-T Axes : 037 024 017 degrees QTc Int : 459 ms Normal sinus rhythm Normal ECG Confirmed by BRIT CROWE ([id number]), script editor RUDDY INMAN ([id number]) on 11/01/2019 8:32:39 AM Referred By: INGRID Confirmed By:BRIT CROWE
[2019-10-30 19:34] LABS: Absolute Lymphocyte Count 2.15 X10^3/uL (0.83-4.51); Absolute Neutrophil Count 2.5 X10^3/uL (2.0-7.7); Basophil# 0.05 X10^3/uL; Basophil% 0.9 % (0-1); Eosinophil# 0.18 X10^3/uL; Eosinophils% 3.3 % (0-5); Hemoglobin 12.3 g/dL (12.0-15.0); Lymphocyte # 2.15 X10^3/ul (4.0); Lymphocyte % 39.4 % (19-41); Mean Corp Hgb Conc 35.1 g/dL (32-36); Mean Corpuscular Hgb 31.6 pg (27.0-32.0); Mean Platelet Vol. 11.6 fl (6.2-12.0); Monocyte# 0.53 X10^3/uL; Monocyte% 9.7 % (0-10); NRBC Flagged by Analyzer 0 % (0-5); Neutrophil # 2.51 X10^3/uL (2.7-7.7); Neutrophil % 46.1 % (47-70); Platelet Count 215 K/mm3 (150-450); RBC Distribution Width SD 38.8 fl (35.1-43.9); Red Blood Count 3.89 M/mm3 (4.2-5.4); White Blood Count 5.5 K/mm3 (4.4-11.0)
[2019-10-30] MEDS: Aspirin 81 MG TAB.CHEW 324 MG PO (19:34)
[2019-10-30] MEDS: 0.9% Normal Saline 1,000 ML 150 ML IV (19:35)
[2019-10-30] MEDS: Ondansetron 4 MG/2 ML Vial IV (19:35)
--- NOTE | 2019-10-30 19:35 | RAD_ITS ---
STUDY: X-RAY CHEST REASON FOR EXAM: Female, 64 years old. sternal chest pain since 5pm today TECHNIQUE: Single frontal view of the chest. COMPARISON: 10/03/2019 FINDINGS: The lungs are clear and expanded. There is no demonstrated pleural abnormality. Normal size heart. Normal mediastinum and jovan. Normal visualized pulmonary arteries. Normal visualized aortic arch and descending thoracic aorta. Coronary artery stent. Carotid calcifications. Normal visualized thoracic spine. Normal visualized ribs, clavicles, and shoulders. There is no demonstrated abnormality of the visualized soft tissue structures of the upper abdomen. RAD/Chest 1 View (Portable) IMPRESSION: No acute pulmonary findings. Electronically Signed: Farshad Blanco MD at 20:21 EST Tel , Service support ,
--- NOTE | 2019-10-30 19:35 | RAD_ITS ---
STUDY: X-RAY - ABDOMEN/PELVIS REASON FOR EXAM: Female, 64 years old. nausea and vomiting today TECHNIQUE: Two AP supine views of the abdomen and pelvis. COMPARISON: None. FINDINGS: Normal visualized lung bases. Constipation pattern is present. Nonobstructive bowel gas pattern. There is no demonstrated free abdominal air. The visualized liver, spleen and kidneys are grossly normal in size and morphology. Normal soft tissue structures. Normal visualized osseous structures. RAD/Abdomen Single View (Portable) IMPRESSION: Constipation pattern is present. Nonobstructive bowel gas pattern. Electronically Signed: Farshad Blanco MD at 20:18 EST Tel , Service support ,
[2019-10-30 19:50] LABS: Anion Gap 11 (5-15); BUN 7 mg/dL (7-18); BUN/Creat Ratio 5.4 RATIO (10-20); Calcium,Total 8.8 mg/dL (8.5-10.1); Chloride 102 mmol/L (98-107); EST Glomerular Filtration Rate 44 mL/min (>60); Est Glom Filt Rate - Afr Amer 53 mL/min (>60); Estimated Creatinine Clearance 35.21 ml/min; Glucose 640 mg/dL (74-106); Potassium 3.9 mmol/L (3.5-5.1); Sodium Level 134 mmol/L (136-145)
[2019-10-30 20:01] LABS: Bacteria 0 SEEN /hpf (None Seen); Mucous, Urine 0 SEEN /hpf (<or=2+); Red Blood Cells-Urine 0 SEEN /hpf (0-5)
[2019-10-30 20:12] LABS: Color, Urine Yellow (Yellow); Glucose, Dipstick 1000 mg/dl (Normal); Ketone-Dipstick Negative (Negative); Leukocyte Esterase-Dipstick 25 /ul (Negative); Nitrite-Dipstick Negative (Negative); Occult Blood-Urine Negative /ul (Negative); Protein-Dipstick Negative (Negative); Urine Bilirubin Dipstick Negative (Negative); Urine Clarity Sl. Cloudy (Clear); Urine Urobilinogen Normal (Normal)
[2019-10-30 20:19] LABS: Squamous Epithelial Cells - UA 0-5 SEEN /hpf (5-10); White Blood Cells 0-5 SEEN /hpf (0-5)
--- NOTE | 2019-10-30 21:27 | HP.PCM_ITS ---
Problem List (1) Hyperglycemia Status: Acute (2) Acute hyperglycemia Status: Acute (3) Benign essential hypertension Status: Chronic (4) Bipolar disorder Status: Chronic (5) COPD (chronic obstructive pulmonary disease) Status: Chronic Comment: cont smoking (6) CVA (cerebral vascular accident) Status: Chronic (7) Constipation Status: Chronic (8) Coronary artery disease Status: Chronic Comment: ROMEL LAD 01/21 (9) GERD (gastroesophageal reflux disease) Status: Chronic (10) Hyperlipidemia Status: Chronic Qualifiers: (11) Tobacco abuse Status: Chronic (12) Uncontrolled type 2 diabetes mellitus Status: Chronic (13) TIA (transient ischemic attack) Status: Suspected History of Present Illness Date of Admission: 10/30/19 Chief Complaint: Elevated blood glucose The patient is a 64 year old F with a significant history of CAD status post 5 stents; hypertension; diabetes mellitus who presented to emergency department because of elevated blood glucose at home. On the day of presentation her blood glucose was 430. Later on her blood glucose machine read high. At the emergency department her blood sugar was 640. She had no acidosis or GAP. At the Emergency department patient complained of excruciating chest pain going to her left side. She describes her pain as pressure; and sharpness. Pain was constant. She reports radiating tingling pain going to her left arm. Associated with symptoms is nausea and vomiting. She was given fentanyl IV at the emergency department because of pain. Also because she complained of constipation a KUB was done. KUB showed chronic constipation pattern. She was started on insulin drip at emergency department. Past Medical History Past Medical History (Chronic Problems): Chronic Problems Constipation (Chronic) Bipolar disorder (Chronic) CVA (cerebral vascular accident) (Chronic) GERD (gastroesophageal reflux disease) (Chronic) Uncontrolled type 2 diabetes mellitus (Chronic) Benign essential hypertension (Chronic) Hyperlipidemia (Chronic) Coronary artery disease (Chronic) ROMEL LAD 01/21 COPD (chronic obstructive pulmonary disease) (Chronic) cont smoking Tobacco abuse (Chronic) Allergies Penicillins Allergy (Verified 10/30/19 18:47) Hives hydrocodone bitartrate [From Vicodin] Adverse Reaction (Verified 10/30/19 18:47) Vomiting ibuprofen Adverse Reaction (Verified 10/30/19 18:47) Vomiting Home Medications: Ambulatory Orders Medication Instructions Recorded Aspirin [Adult Low Dose Aspirin EC] 81 mg PO DAILY 02/04/16 Metoprolol Tartrate [Lopressor 25 mg PO BID 06/23/17 (beta elder)] Nitroglycerin (INPATIENT USE) 0.4 mg SUBLINGUAL Q5M PRN 09/28/17 [Nitrostat] Furosemide [Lasix] 40 mg PO DAILY 11/17/18 Lisinopril 5 mg PO DAILY 11/17/18 Metformin HCl 1,000 mg PO BID 11/17/18 Insulin Glargine,Hum.rec.anlog 48 unit SQ BREAKFAST 05/16/19 [Basaglar Kwikpen U-100] Pantoprazole Sodium [Protonix] 40 mg PO DAILY #20 tab 05/27/19 Omeprazole 1 cap PO DAILY #30 capsule. 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 Denies: Palpitations Respiratory: Denies: Cough, Shortness of breath at rest, Sputum production Gastrointestinal: Reports: Nausea, Vomiting. Denies: Abdominal Pain Genitourinary: Denies: Dysuria Musculoskeletal: Reports: Arm Pain. Denies: Joint Pain, Joint Tenderness Skin: Denies: Rash, Wounds Neurological: Denies: Numbness, Tingling, Focal weakness Psychiatric: Denies: Anxiety, Depression, Homicidal Ideations, Suicidal Ideations Hematologic/ Lymphatic: Denies: Easy Bruising, Easy Bleeding VTE Information - Inpt Only VTE Present on Admission: No VTE Mechan Device Prophylaxis: None VTE Pharm Prophylaxis ordered?: Yes Patient Problems: Active and Suspected Problems Hyperglycemia (Acute) - Physical Exam Vitals/I&O's: Vital Signs Temp Pulse Resp BP Pulse Ox 99.3 F H 94 17 143/72 H 97 10/30/19 18:41 10/30/19 19:03 10/30/19 19:03 10/30/19 19:03 10/30/19 19:03 Oxygen Flow Rate (L/min) 2 Oxygen Delivery Method Nasal Cannula Weight: 69.7 kg Body Mass Index (BMI) 27.2 Finger Stick Blood Glucose 360 General: Alert, Oriented x3, Cooperative HEENT: Atraumatic, PERRLA, EOMI, Normocephalic Neck: Supple, No JVD, Negative Carotid Bruits Lungs: Clear to auscultation, Normal air movement Cardiovascular: Regular rate, No murmurs Abdomen: Bowel Sounds Present, Soft, Non Tender Extremities: No edema, Capillary Refill Less than 3 Seconds Skin: No rashes, No breakdown Musculoskeletal: No Tenderness to Palpation of Joints or Extremities Neurological: Cranial nerves II-XII grossly intact Psych/Mental Status: Normal Affect, Appropriate Laboratory Results 10/30/19 19:00: WBC 5.5, RBC 3.89 L, Hgb 12.3, Hct 35.0 L, MCV 90.0, MCH 31.6, MCHC 35.1, RDW Std Deviation 38.8, RDW Coeff of [place] 12.0, Plt Count 215, MPV 11.6, Immature Gran % (Auto) 0.600, Neut % (Auto) 46.1 L, Lymph % (Auto) 39.4, [place] % (Auto) 9.7, Eos % (Auto) 3.3, Baso % (Auto) 0.9, Absolute Neuts (auto) 2.5, Absolute Lymphs (auto) 2.15, Nucleated RBC % 0 10/30/19 19:00: Sodium 134 L, Potassium 3.9, Chloride 102, Carbon Dioxide 21.0, Anion Gap 11, BUN 7, Creatinine 1.30 H, Estim Creat Clear Calc 35.21, Est GFR (MDRD) Af Amer 53 L, Est GFR (MDRD) Non-Af 44 L, BUN/Creatinine Ratio 5.4 L, Glucose 640 H*, Calcium 8.8, Troponin I < 0.015 10/30/19 19:24: Urine Color Yellow, Urine Clarity Sl. Cloudy, Urine pH 6.0, Ur Specific [place] 1.010, Urine Protein Negative, Urine Glucose (UA) 1000 H, Urine Ketones Negative, Urine Occult Blood Negative, Urine Nitrite Negative, Urine Bilirubin Negative, Urine Urobilinogen Normal, Ur Leukocyte Esterase 25 H, Urine RBC 0 SEEN, Urine WBC 0-5 SEEN, Ur Squamous Epith Cells 0-5 SEEN, Urine Bacteria 0 SEEN, Urine Mucus 0 SEEN Current Medications Sodium Chloride () 1,000 mls @ 150 mls/hr IV .[id number] [facility] Last Admin: 10/30/19 19:35 Dose: 150 mls/hr Documented by: Assessment/Plan All Active Problems Hyperglycemia (Acute) Stroke (Ruled-out) Acute hyperglycemia (Acute) Chest pain (Resolved) VTE (venous thromboembolism) (Resolved) The patient is a 64 year old F with a significant history of CAD status post 5 stents; hypertension; diabetes mellitus who presented to emergency department because of elevated blood glucose at home which was confirmed at the emergency department and also had chest pain and constipation. Diabetes mellitus with hyperglycemia Blood glucose at emergency department was 640. Emergency department doctor to start patient on insulin drip. Hold home hypoglycemic regimen. Started on normal saline at 150 mL's per hour the emergency department. Will change to normal saline with 40 of potassium. Hold home Lasix for now. Chest pain Place on a monitored bed at PCU CXR independently reviewed confirms no acute cardiopulmonary process. EKG independently reviewed confirms sinus rhythm ASA 81 mg p.o. daily Anti-P2Y12 Receptor antibody: Home Plavix continued. Troponin was negative Serial cardiac enzymes Stat EKG as needed for chest pain We will hold off stress test for now as we treat hyperglycemia. If the symptom persists consider stress test. Hypertension On presentation her blood pressure was not within goal Lisinopril and metoprolol continued Trend blood pressure and adjust blood pressure medications. Lasix on hold because patient is receiving IV fluids at this time. Constipation KUB confirmed constipation Placed on bowel protocol. GERD Protonix and Zantac discontinued DVT prophylaxis Lovenox ordered Code Visit Inpatient E&M: 06834 Init Hosp L3
--- NOTE | 2019-10-30 21:33 | ED.DCSUM_ITS ---
- ER Visit Summary Date of Service: 10/30/19 Chief Complaint: [Hyperglycemia and chest pain] History of Present Illness: The patient is a 64 F [to the emergency department with elevated blood sugars today. Patient states that she checked her blood sugar around 430 and it was 430. Patient then checked it again at 6 PM and it just read high. Patient states that she normally gives herself Lantus insulin 48 units in the morning and then uses metformin at thousand milligrams in the morning and at thousand milligrams at night. Patient dates that couple hours ago she started having chest discomfort that she describes as a tightness and radiating down her left arm. Patient developed nausea and did vomit several times. Patient states she took nitroglycerin at home and it did not relieve her chest discomfort at all. She does have a history of coronary artery disease, diabetes, hypertension, high cholesterol. Patient has had cholecystectomy, hysterectomy, and 5 cardiac stents.] Physical Examination: [HEENT-PERRLA, EOMI. Cranial nerves II through XII grossly intact. TMs clear. Mucous membranes moist. No adenopathy. Cardiovascular-regular rate and rhythm without murmur or ectopy Lungs-clear to auscultation, chest wall stable without crepitus or subcu emphysema Abdomen-normoactive bowel sounds, soft, nontender, no rebound or rigidity, no peritoneal signs. Extremities-intact ?4, normal range of motion, normal pulses, atraumatic] Test Results: [EKG obtained arrival shows sinus rhythm with a ventricular rate of 97 bpm with no acute ST segment changes. CBC with differential showed a white count 5.5, hemoglobin 12, hematocrit 35, placed 215. Chemistries unremarkable. Glucose was 640. Urinalysis unremarkable. Troponin less than 0.015. Chest x-ray showed nothing acute. KUB showed a constipation pattern but no obstruction.] Emergency Department Course and Treatment: [Patient was started on an insulin drip. Patient was given fentanyl 50 mcg IV for her chest pain. Patient received aspirin.] Treatment Plan: [Admit for further work-up of her chest pain and treatment of her hyperglycemia. Case was discussed with hospitalist who will see patient in the emergency department.] Disposition: [Admit] Impression: [Chest pain-rule out acute coronary syndrome Hyperglycemia] This note was generated with [employer] dictation software. It may contain incorrect words, spelling, and punctuation that were not noted in review of the chart prior to signing ED Disposition - Plan for ED Patient: Referrals: Bulmaro Nogueira DO [Primary Care Provider] -
[2019-10-30] MEDS: fentaNYL 100 MCG/2 ML Ampul 50 MCG IV (21:45)
--- NOTE | 2019-10-30 22:38 | EKG12_ITS ---
Test Reason : CP ADMISSION Blood Pressure : / mmHG Vent. Rate : 067 BPM Atrial Rate : 067 BPM P-R Int : 140 ms QRS Dur : 080 ms QT Int : 440 ms P-R-T Axes : 069 025 033 degrees QTc Int : 464 ms Normal sinus rhythm Normal ECG When compared with ECG of 18-JUL-2019 18:50, No significant change was found Confirmed by TJ BARFIELD, GLORY ([id number]), features editor RUDDY INMAN ([id number]) on 11/02/2019 2:41:41 PM Referred By: SYDNEY Confirmed By:AL SPENCER MD
--- NOTE | 2019-10-30 23:37 | NURSING ---
Unable to complete home medication list at this time. Pt unsure off home medications.
[2019-10-30] MEDS: Potassium Chloride 40 MEQ in 0.9% Normal Saline 1,000 ML 150 MEQ IV (23:53)
[2019-10-30] MEDS: Metoprolol Tartrate 25 MG Tablet PO (23:54)
[2019-10-31] VITALS (7 sets, daily range): BP systolic 114–121; BP diastolic 61–77; PULSE 62–67; RESP 15–18; TEMP 36.8; O2SAT 95–96
[2019-10-31 00:50] LABS: Bedside Glucose 406 mg/dL (70-110)
[2019-10-31 00:56] LABS: Bedside Glucose 347 mg/dL (70-110)
[2019-10-31] MEDS: Acetaminophen 325 MG Tablet 650 MG PO (01:23)
[2019-10-31] MEDS: Senna/Docusate Sodium 1 Tablet PO ×2 (01:24→10:18)
--- NOTE | 2019-10-31 02:32 | NURSING ---
Contacting hospitalist as this blood sugar calls for the Insulin gtt to be titrated down by 2 mL/hr. Gtt only running at 1.5 mL/hr at this time.
--- NOTE | 2019-10-31 03:27 | NURSING ---
Keeping insulin drip running at 1.5 mL/hr at this time per telephone order of Dr. Alexis.
[2019-10-31 04:16] LABS: Bedside Glucose 261 mg/dL (70-110)
[2019-10-31 04:16] LABS: Bedside Glucose 323 mg/dL (70-110)
[2019-10-31 04:16] LABS: Bedside Glucose 214 mg/dL (70-110)
[2019-10-31] MEDS: Potassium Chloride 40 MEQ in Dext 5%-0.45% NS 1,000 ML 150 MEQ IV (04:24)
--- NOTE | 2019-10-31 04:28 | NURSING ---
Keeping insulin gtt running at 1.5 mL/hr at this time per MD order.
[2019-10-31] MEDS: Clopidogrel Bisulfate 75 MG Tablet PO (05:24)
[2019-10-31] MEDS: Aspirin E.C. 81 MG Tablet PO (05:24)
[2019-10-31] MEDS: Lisinopril 5 MG Tablet PO (05:24)
[2019-10-31] MEDS: 0.9% Saline Lock 10 ML Syringe IV (05:25)
[2019-10-31 05:57] LABS: Absolute Lymphocyte Count 2.87 X10^3/uL (0.83-4.51); Absolute Neutrophil Count 2.3 X10^3/uL (2.0-7.7); Basophil# 0.04 X10^3/uL; Basophil% 0.7 % (0-1); Eosinophil# 0.22 X10^3/uL; Eosinophils% 3.8 % (0-5); Hematocrit 32.8 % (37-47); Hemoglobin 11.2 g/dL (12.0-15.0); Lymphocyte # 2.87 X10^3/ul (4.0); Lymphocyte % 49.1 % (19-41); Mean Corp Hgb Conc 34.1 g/dL (32-36); Mean Corpuscular Hgb 30.9 pg (27.0-32.0); Mean Corpuscular Volume 90.4 fL (81-99); Mean Platelet Vol. 11.1 fl (6.2-12.0); Monocyte# 0.44 X10^3/uL; Monocyte% 7.5 % (0-10); NRBC Flagged by Analyzer 0 % (0-5); Neutrophil # 2.26 X10^3/uL (2.7-7.7); Neutrophil % 38.6 % (47-70); Platelet Count 190 K/mm3 (150-450); RBC Distribution Width SD 39.7 fl (35.1-43.9); Red Blood Count 3.63 M/mm3 (4.2-5.4); White Blood Count 5.9 K/mm3 (4.4-11.0)
[2019-10-31 06:21] LABS: Bedside Glucose 171 mg/dL (70-110)
[2019-10-31 06:21] LABS: Bedside Glucose 161 mg/dL (70-110)
[2019-10-31 06:21] LABS: Bedside Glucose 101 mg/dL (70-110)
[2019-10-31 06:45] LABS: Anion Gap 4 (5-15); BUN 5 mg/dL (7-18); BUN/Creat Ratio 7.1 RATIO (10-20); Calcium,Total 8.6 mg/dL (8.5-10.1); Chloride 114 mmol/L (98-107); Cholesterol 198 mg/dL (200); Creatinine, Serum 0.71 mg/dL (0.55-1.02); EST Glomerular Filtration Rate 88 mL/min (>60); Est Glom Filt Rate - Afr Amer 106 mL/min (>60); Estimated Creatinine Clearance 45.78 ml/min; Glucose 128 mg/dL (74-106); High Density Lipoprotein 48 mg/dL; Potassium 3.8 mmol/L (3.5-5.1); Sodium Level 142 mmol/L (136-145); Triglycerides 146 mg/dL; Very Low Density Lipoprotein 29 mg/dL (5-40)
[2019-10-31 09:52] LABS: Hemoglobin A1c 10.1 % (4.2-6.3)
--- NOTE | 2019-10-31 10:08 | STRESSREP ---
Stress Test Report Date: 10-31-2019 Procedure: Pharmacologic stress nuclear imaging study Indications: Chest pain; CAD; PCI Consent: Per the patient Procedure: The patient underwent pharmacologic (Regadenoson) evaluation with a peak heart rate of 86 beats per minute (55 %predicted maximal heart rate) and a peak blood pressure of 138/62 mmHg. The baseline ECG demonstrated normal sinus rhythm. The peak pharmacologic ECG demonstrated no obvious ECG changes. There were no cardiac dysrhythmias pretest, during pharmacologic infusion, or recovery. There was no complaint of chest discomfort during pharmacologic infusion or recovery. The examination was discontinued secondary to completion of protocol. Impression: 1. Pharmacologic (Regadenoson) evaluation 2. Peak pharmacologic ECG with no obvious ECG changes. 3. There were no cardiac dysrhythmias pretest, during pharmacologic infusion, or recovery. 4. Nuclear images pending Myocardial perfusion imaging study: Technique: The patient was injected with 11.0 millicuries of technetium 99m Cardiolite and subsequently rest SPECT Cardiolite nuclear imaging was obtained in the horizontal long, vertical long, and short axis views. The patient underwent pharmacologic (Regadenoson) evaluation with a peak heart rate of 86 beats per minute (55 % percent predicted maximal heart rate) and a peak blood pressure of 138/62 mmHg. The patient was injected with 33.4 millicuries of technetium 99m Cardiolite and subsequently stress SPECT Cardiolite nuclear imaging was obtained in the horizontal long, vertical long, and short axis views. A gated Cardiolite study at peak stress was obtained. Interpretation: Rest and stress SPECT Cardiolite nuclear imaging status post realignment, normalization, and attenuation correction demonstrate relative uniform tracer uptake and myocardial perfusion appearing within normal limits. There is end systolic thickening and brightening. The gated Cardiolite study demonstrates myocardial thickening and inward wall motion. The reported LVEF is 84 %. Impression: 1. Rest and stress SPECT Cardiolite nuclear imaging demonstrate relative uniform tracer uptake and myocardial perfusion appearing within normal limits. 2. The gated Cardiolite study reports an LVEF of 84 %. This note was generated with [id number] software. It may contain incorrect words, spelling, and punctuation that were not noted in checking the note before signing.
[2019-10-31] MEDS: Pantoprazole Sodium 40 MG Tablet PO (10:18)
[2019-10-31] MEDS: Metoprolol Tartrate 25 MG Tablet PO (10:18)
[2019-10-31] MEDS: Famotidine 20 MG Tablet PO (10:18)
[2019-10-31] MEDS: Insulin Lispro 100 UNIT/ML INSULN.PEN SC (10:26)
[2019-10-31 10:30] LABS: Bedside Glucose 190 mg/dL (70-110)
--- NOTE | 2019-10-31 10:42 | CASEMGMT ---
LW not on file. POA form is on file, in summary tab of echart. Living will provision in POA form is checked. Pt has Cindy Barr listed as healthcare POA. SHARRI Lao
--- NOTE | 2019-10-31 11:08 | DCINST_ITS ---
- Discharge Diagnoses Current Active Problems: Current Active and Chronic Problems Chest pain Hyperglycemia You will use the following diet at home:: Calorie/Carbohydrate Controlled (specify 1200, 1400, etc), Cardiac Discharge Activity: Return to Normal Activity Call your doctor if you observe: Shortness of breath, Dizziness, Fainting spells, Chest pain Allergies/Adverse Reactions: Allergies Penicillins Allergy (Verified 10/30/19 18:47) Hives hydrocodone bitartrate [From Vicodin] Adverse Reaction (Verified 10/30/19 18:47) Vomiting ibuprofen Adverse Reaction (Verified 10/30/19 18:47) Vomiting Medications to take at Discharge Aspirin [Adult Low Dose Aspirin EC] 81 mg PO DAILY 02/04/16 Metoprolol Tartrate [Lopressor (beta elder)] 25 mg PO BID 06/23/17 Nitroglycerin (INPATIENT USE) [Nitrostat] 0.4 mg SUBLINGUAL Q5M PRN 09/28/17 Furosemide [Lasix] 40 mg PO DAILY 11/17/18 Lisinopril 5 mg PO DAILY 11/17/18 Metformin HCl 1,000 mg PO BID 11/17/18 Insulin Glargine,Hum.rec.anlog [Basaglar Kwikpen U-100] 48 unit SQ BREAKFAST 05/16/19 Pantoprazole Sodium [Protonix] 40 mg PO DAILY #20 tab 05/27/19 Omeprazole 1 cap PO DAILY #30 capsule. 10/03/19 Cholecalciferol (Vitamin D3) [Vitamin D3] 5,000 units PO DAILY 10/30/19 Clopidogrel Bisulfate [Clopidogrel] 75 mg PO DAILY 10/30/19 Glimepiride [Amaryl] 4 mg PO DAILY 10/30/19 Ranitidine [Zantac] 150 mg PO DAILY 10/30/19 Primary Care Physician: Bulmaro Nogueira DO [Primary Care Provider] - Please follow up with your Primary Care Physician in: 3-5 Days Test Results: Test results from this visit will be discussed in further detail at your follow- up appointment, if applicable. Proposed Discharge Date: 10/31/19
--- NOTE | 2019-10-31 11:20 | PCM.DC.SUM ---
<Nguyen Price - Last Filed: 10/31/19 11:38> Discharge Date and Diagnosis Date of Admission: 10/30/19 Date of Discharge: 10/31/19 - Primary Discharge Diagnosis Active and Suspected Problems 1. Chest pain, ACS ruled out 2. Type 2 diabetes mellitus with hyperglycemia 3. Hypertension 4. GERD 5. CAD with history of stents 6. Tobacco dependence 7. Chronic COPD 8. Hyperlipidemia - Secondary Discharge Diagnosis Chronic Problems Constipation (Chronic) Bipolar disorder (Chronic) CVA (cerebral vascular accident) (Chronic) GERD (gastroesophageal reflux disease) (Chronic) Uncontrolled type 2 diabetes mellitus (Chronic) Benign essential hypertension (Chronic) Hyperlipidemia (Chronic) Coronary artery disease (Chronic) ROMEL LAD 01/21 COPD (chronic obstructive pulmonary disease) (Chronic) cont smoking Tobacco abuse (Chronic) Hospital Course and Treatment Imaging Results: Diagnostic Data Chest X-Ray 10/30/19 19:35 IMPRESSION: No acute pulmonary findings. Electronically Signed: Farshad Blanco MD at 20:21 EST Tel , Service support , KUB X-Ray 10/30/19 19:35 IMPRESSION: Constipation pattern is present. Nonobstructive bowel gas pattern. Electronically Signed: Farshad Blanco MD at 20:18 EST Tel , Service support , Operations: None Procedures: Stress test Summary of Care Provided: The patient is a 64 year old F admitted 10/30/2019 due to elevated blood glucose and chest pain. 1. Chest pain, ACS ruled out-troponin negative. EKG without ST-T changes. Patient underwent nuclear stress test which was negative for ischemia, LVEF 84%. Patient has not routinely followed up with cardiology. Previously followed with Dr. Quesada. Follow-up with Dr. Quesada in 1-2 Weeks. 2. Type 2 diabetes mellitus with hyperglycemia-glucose 640 on admission, now improved. Patient reports blood glucose well controlled at home. Hemoglobin A1c 10.1%. Continue home oral and insulin regimen. Follow-up with primary warehouse logistics coordinator in [place] within 1 week. 3. Hypertension-elevated blood pressure on admission, now improved. Continue lisinopril, Lasix, metoprolol regimen. 4. GERD-continue Protonix, Zantac. 5. CAD with history of stents-continue aspirin, Plavix, beta-ban, lisinopril. 6. Tobacco dependence-encouraged cessation. 7. Chronic COPD-no acute exacerbation. 8. Hyperlipidemia-not on statin, defer to outpatient for follow-up. Patient seen and examined prior to discharge. Physical assessment as noted below. Patient is stable for discharge with follow up recommendations as noted above. This patient was seen by MAMI Barnes under the supervision of Dr. Rich. - Physical Exam Vitals/I&O's: Vital Signs Temp Pulse Resp BP Pulse Ox 98.3 F 67 15 121/66 H 95 10/31/19 10:12 10/31/19 10:18 10/31/19 10:12 10/31/19 10:18 10/31/19 10:12 Oxygen Flow Rate (L/min) 2 Oxygen Delivery Method Room Air Weight: 151 lb 7.321 oz Body Mass Index (BMI) 26.8 Finger Stick Blood Glucose 161 Intake and Output for Last 24 Hours 10/29/19 10/30/19 10/31/19 23:59 23:59 23:59 Intake Total 391.37 / 391.37 913.67 / 913.67 Output Total 0 / 0 Balance 391.37 / 391.37 913.67 / 913.67 General: Alert, Oriented x3, Cooperative HEENT: Atraumatic, PERRLA, EOMI, Normocephalic Neck: Supple, No JVD, Negative Carotid Bruits Lungs: Clear to auscultation, Normal air movement Cardiovascular: Regular rate, Regular Rhythm, Normal S1, Normal S2, No murmurs Abdomen: Bowel Sounds Present, Soft, Non Tender, Non-Distended Extremities: No clubbing, No cyanosis, No edema, Capillary Refill Less than 3 Seconds Skin: No rashes, No breakdown Musculoskeletal: No Tenderness to Palpation of Joints or Extremities Neurological: Cranial nerves II-XII grossly intact, Neuro grossly intact Psych/Mental Status: Normal Affect, Appropriate Laboratory Results 10/30/19 19:00: WBC 5.5, RBC 3.89 L, Hgb 12.3, Hct 35.0 L, MCV 90.0, MCH 31.6, MCHC 35.1, RDW Std Deviation 38.8, RDW Coeff of [place] 12.0, Plt Count 215, MPV 11.6, Immature Gran % (Auto) 0.600, Neut % (Auto) 46.1 L, Lymph % (Auto) 39.4, [place] % (Auto) 9.7, Eos % (Auto) 3.3, Baso % (Auto) 0.9, Absolute Neuts (auto) 2.5, Absolute Lymphs (auto) 2.15, Nucleated RBC % 0 10/30/19 19:00: Sodium 134 L, Potassium 3.9, Chloride 102, Carbon Dioxide 21.0, Anion Gap 11, BUN 7, Creatinine 1.30 H, Estim Creat Clear Calc 35.21, Est GFR (MDRD) Af Amer 53 L, Est GFR (MDRD) Non-Af 44 L, BUN/Creatinine Ratio 5.4 L, Glucose 640 H*, Calcium 8.8, Troponin I < 0.015 10/30/19 19:24: Urine Color Yellow, Urine Clarity Sl. Cloudy, Urine pH 6.0, Ur Specific [place] 1.010, Urine Protein Negative, Urine Glucose (UA) 1000 H, Urine Ketones Negative, Urine Occult Blood Negative, Urine Nitrite Negative, Urine Bilirubin Negative, Urine Urobilinogen Normal, Ur Leukocyte Esterase 25 H, Urine RBC 0 SEEN, Urine WBC 0-5 SEEN, Ur Squamous Epith Cells 0-5 SEEN, Urine Bacteria 0 SEEN, Urine Mucus 0 SEEN 10/30/19 23:14: POC Glucose 406 H 10/30/19 23:39: Troponin I < 0.015 10/31/19 00:20: POC Glucose 347 H 10/31/19 01:21: POC Glucose 323 H 10/31/19 02:27: POC Glucose 261 H 10/31/19 02:34: Troponin I < 0.015 10/31/19 03:21: POC Glucose 214 H 10/31/19 04:27: POC Glucose 171 H 10/31/19 05:20: POC Glucose 161 H 10/31/19 05:30: WBC 5.9, RBC 3.63 L, Hgb 11.2 L, Hct 32.8 L, MCV 90.4, MCH 30.9, MCHC 34.1, RDW Std Deviation 39.7, RDW Coeff of [place] 12.0, Plt Count 190, MPV 11.1, Immature Gran % (Auto) 0.300, Neut % (Auto) 38.6 L, Lymph % (Auto) 49.1 H, [place] % (Auto) 7.5, Eos % (Auto) 3.8, Baso % (Auto) 0.7, Absolute Neuts (auto) 2.3, Absolute Lymphs (auto) 2.87, Nucleated RBC % 0 10/31/19 05:30: Sodium 142, Potassium 3.8, Chloride 114 H, Carbon Dioxide 24.0, Anion Gap 4 L, BUN 5 L, Creatinine 0.71, Estim Creat Clear Calc 45.78, Est GFR (MDRD) Af Amer 106, Est GFR (MDRD) Non-Af 88, BUN/Creatinine Ratio 7.1 L, Glucose 128 H, Calcium 8.6, Troponin I < 0.015, Triglycerides 146, Cholesterol 198, LDL Cholesterol 121, VLDL Cholesterol 29, HDL Cholesterol 48 10/31/19 05:30: Hemoglobin A1c 10.1 H 10/31/19 06:11: POC Glucose 101 10/31/19 10:24: POC Glucose 190 H Current Medications Acetaminophen (Tylenol) 650 mg PO Q6H PRN PRN PRN Reason: Pain Score 1-10/Temp > 100.7 F Last Admin: 10/31/19 01:23 Dose: 650 mg Documented by: Aspirin (Ecotrin) 81 mg PO DAILY@0800 [facility] Last Admin: 10/31/19 05:24 Dose: 81 mg Documented by: Cholecalciferol (Vitamin D) 5,000 unit PO DAILY [facility] Last Admin: 10/31/19 10:19 Dose: 5,000 unit Documented by: Clopidogrel Bisulfate (Plavix) 75 mg PO DAILY [facility] Last Admin: 10/31/19 05:24 Dose: 75 mg Documented by: Enoxaparin Sodium (Lovenox) 40 mg SC DAILY [facility] Famotidine (Pepcid) 20 mg PO DAILY [facility] Last Admin: 10/31/19 10:18 Dose: 20 mg Documented by: Glucagon () 1 mg IM .X1 PRN PRN Reason: Hypoglycemia Dextrose (Dextrose 10%-Water) 250 mls @ 999 mls/hr IV .Q16M PRN; Protocol PRN Reason: HYPOGLYCEMIA Sodium Chloride () 250 mls @ 15 mls/hr IV .[id number] PRN PRN Reason: Saline Flush Sodium Chloride () 250 mls @ 15 mls/hr IV .[id number] PRN PRN Reason: Additional IVPB Infusion Insulin Glargine (Lantus (Bk)) 20 units SC BREAKFAST [facility] Last Admin: 10/31/19 04:31 Dose: 20 u Documented by: Insulin Human Lispro (Humalog Kwikpen ([employer])) 0 unit SC Q4 [facility]; Protocol Last Admin: 10/31/19 10:26 Dose: 1 unit Documented by: Lisinopril (Zestril) 5 mg PO DAILY [facility] Last Admin: 10/31/19 05:24 Dose: 5 mg Documented by: Melatonin (Melatonin) 3 mg PO QHS PRN PRN PRN Reason: INSOMNIA Metoprolol Tartrate (Lopressor (Beta Ban)) 25 mg PO BID [facility] Last Admin: 10/31/19 10:18 Dose: 25 mg Documented by: Morphine Sulfate () 2 mg IV Q3H PRN PRN PRN Reason: Pain Score 6-10/10 Ondansetron HCl (Zofran) 4 mg IV Q8H PRN PRN PRN Reason: NAUSEA/VOMITING Pantoprazole Sodium (Protonix) 40 mg PO DAILY [facility] Last Admin: 10/31/19 10:18 Dose: 40 mg Documented by: Senna/Docusate Sodium (Senokot-S, Elsa-Colace) 1 tablet PO BID [facility] Last Admin: 10/31/19 10:18 Dose: 1 tablet Documented by: Sodium Chloride () 10 - 40 ml IV UD PRN PRN Reason: SALINE FLUSH Last Admin: 10/31/19 05:25 Dose: 20 ml Documented by: Discharge Diet: No Restrictions Discharge Activity: Return to Normal Activity Call your doctor if you observe: Shortness of breath, Dizziness, Fainting spells, Chest pain Home Medications: Medications to take at Discharge Aspirin [Adult Low Dose Aspirin EC] 81 mg PO DAILY 02/04/16 Metoprolol Tartrate [Lopressor (beta ban)] 25 mg PO BID 06/23/17 Nitroglycerin (INPATIENT USE) [Nitrostat] 0.4 mg SUBLINGUAL Q5M PRN 09/28/17 Furosemide [Lasix] 40 mg PO DAILY 11/17/18 Lisinopril 5 mg PO DAILY 11/17/18 Metformin HCl 1,000 mg PO BID 11/17/18 Insulin Glargine,Hum.rec.anlog [Tiesha Richter U-100] 48 unit SQ BREAKFAST 05/16/19 Pantoprazole Sodium [Protonix] 40 mg PO DAILY #20 tab 05/27/19 Omeprazole 1 cap PO DAILY #30 capsule. 10/03/19 Cholecalciferol (Vitamin D3) [Vitamin D3] 5,000 units PO DAILY 10/30/19 Clopidogrel Bisulfate [Clopidogrel] 75 mg PO DAILY 10/30/19 Glimepiride [Amaryl] 4 mg PO DAILY 10/30/19 Ranitidine [Zantac] 150 mg PO DAILY 10/30/19 Primary Care Physician: Bulmaro Nogueira DO [Primary Care Provider] - Please follow up with your Primary Care Physician in: 3-5 Days Disposition: Home Minutes spent on discharge:: 35 Patient Condition:: Stable Medical Necessity - Tobacco Use Smoking Status: Former smoker Meaningful Use Info Meaningful Use Diagnoses (Choose all that apply): None applicable <Jeanette Rich E - Last Filed: 10/31/19 11:55> Discharge Date and Diagnosis - Secondary Discharge Diagnosis Chronic Problems Constipation (Chronic) Bipolar disorder (Chronic) CVA (cerebral vascular accident) (Chronic) GERD (gastroesophageal reflux disease) (Chronic) Uncontrolled type 2 diabetes mellitus (Chronic) Benign essential hypertension (Chronic) Hyperlipidemia (Chronic) Coronary artery disease (Chronic) ROMEL LAD 01/21 COPD (chronic obstructive pulmonary disease) (Chronic) cont smoking Tobacco abuse (Chronic) Hospital Course and Treatment Imaging Results: 10/31/19 05:55 Nuclear Stress Test - Chemical [NM] AM (NON MEDS) Summary of Care Provided: Hospitalist note: Discharge summary above reviewed and I concur with above discharge and treatment plan. Patient presented to the emergency room because of elevated blood sugar and chest pain. She stated that she took her insulin the day of admission as well as metformin and glimepiride. She started feeling sick, nauseated later on the day and she thought that her blood sugar is high. Shortly after, she started having chest pain and she came to the emergency department. In the emergency department, his sugar was 640 mg/dL. There was no evidence of DKA. Her EKG revealed no acute, changes. Troponin was negative x4. Chest x-ray showed no acute findings. Urinalysis was unremarkable. She was started on IV insulin drip and was admitted to PCU for observation. Her sugar came down very nicely and very quickly down to 100s this morning. Her blood sugar came down very quickly and improved dramatically within 24 hours. Today, she had no more chest pain. She underwent nuclear stress test that showed no evidence of stress-induced myocardial ischemia. ACS ruled out. There was no clear reason why her sugar was too high yesterday. Her vital signs are stable. Routine blood work was unremarkable today. Her hemoglobin A1c was 10.1 percent. It was 14% on December,. Patient discharged home in a stable medical condition, discharged on the same medication that he has been taking before admission including glargine insulin, glimepiride and metformin, continued on her other previous home medications without any changes, I recommended to take her insulin and other medications as prescribed and on time, recommended follow-up with PCP in 3 to 5 days and follow-up with her warehouse logistics coordinator in [place] in 1 to 2 weeks. - Physical Exam General: Alert, Oriented x3, Cooperative, No apparent distress. HEENT: Atraumatic, PERRLA, EOMI. Neck: Supple, No JVD, Negative Carotid Bruits, Trachea Midline, Thyroid Normal. Lungs: Clear to auscultation, Normal air movement, No rhonchi, No wheeze, No rales. Cardiovascular: Regular rate, Regular Rhythm, Normal S1, Normal S2, PMI Normal. Abdomen: Bowel Sounds Present, Soft, Non Tender, Non-Distended, No Hepato-splenomegaly. Extremities: No clubbing, No cyanosis, No edema Skin: No rashes, No breakdown Neurological: Cranial nerves are intact, neuro grossly intact. Vital Signs are stable. This note was generated with Friday dictation software. It may contain incorrect words, spelling, and punctuation that were not noted in checking the note before signing. - Physical Exam Vitals/I&O's: Vital Signs Temp Pulse Resp BP Pulse Ox 98.3 F 67 15 121/66 H 95 10/31/19 10:12 10/31/19 10:18 10/31/19 10:12 10/31/19 10:18 10/31/19 10:12 Oxygen Flow Rate (L/min) 2 Oxygen Delivery Method Room Air Weight: 151 lb 7.321 oz Body Mass Index (BMI) 26.8 Finger Stick Blood Glucose 161 Intake and Output for Last 24 Hours 10/29/19 10/30/19 10/31/19 23:59 23:59 23:59 Intake Total 391.37 / 391.37 913.67 / 913.67 Output Total 0 / 0 Balance 391.37 / 391.37 913.67 / 913.67 Laboratory Results 10/30/19 19:00: WBC 5.5, RBC 3.89 L, Hgb 12.3, Hct 35.0 L, MCV 90.0, MCH 31.6, MCHC 35.1, RDW Std Deviation 38.8, RDW Coeff of [place] 12.0, Plt Count 215, MPV 11.6, Immature Gran % (Auto) 0.600, Neut % (Auto) 46.1 L, Lymph % (Auto) 39.4, [place] % (Auto) 9.7, Eos % (Auto) 3.3, Baso % (Auto) 0.9, Absolute Neuts (auto) 2.5, Absolute Lymphs (auto) 2.15, Nucleated RBC % 0 10/30/19 19:00: Sodium 134 L, Potassium 3.9, Chloride 102, Carbon Dioxide 21.0, Anion Gap 11, BUN 7, Creatinine 1.30 H, Estim Creat Clear Calc 35.21, Est GFR (MDRD) Af Amer 53 L, Est GFR (MDRD) Non-Af 44 L, BUN/Creatinine Ratio 5.4 L, Glucose 640 H*, Calcium 8.8, Troponin I < 0.015 10/30/19 19:24: Urine Color Yellow, Urine Clarity Sl. Cloudy, Urine pH 6.0, Ur Specific [place] 1.010, Urine Protein Negative, Urine Glucose (UA) 1000 H, Urine Ketones Negative, Urine Occult Blood Negative, Urine Nitrite Negative, Urine Bilirubin Negative, Urine Urobilinogen Normal, Ur Leukocyte Esterase 25 H, Urine RBC 0 SEEN, Urine WBC 0-5 SEEN, Ur Squamous Epith Cells 0-5 SEEN, Urine Bacteria 0 SEEN, Urine Mucus 0 SEEN 10/30/19 23:14: POC Glucose 406 H 10/30/19 23:39: Troponin I < 0.015 10/31/19 00:20: POC Glucose 347 H 10/31/19 01:21: POC Glucose 323 H 10/31/19 02:27: POC Glucose 261 H 10/31/19 02:34: Troponin I < 0.015 10/31/19 03:21: POC Glucose 214 H 10/31/19 04:27: POC Glucose 171 H 10/31/19 05:20: POC Glucose 161 H 10/31/19 05:30: WBC 5.9, RBC 3.63 L, Hgb 11.2 L, Hct 32.8 L, MCV 90.4, MCH 30.9, MCHC 34.1, RDW Std Deviation 39.7, RDW Coeff of [place] 12.0, Plt Count 190, MPV 11.1, Immature Gran % (Auto) 0.300, Neut % (Auto) 38.6 L, Lymph % (Auto) 49.1 H, [place] % (Auto) 7.5, Eos % (Auto) 3.8, Baso % (Auto) 0.7, Absolute Neuts (auto) 2.3, Absolute Lymphs (auto) 2.87, Nucleated RBC % 0 10/31/19 05:30: Sodium 142, Potassium 3.8, Chloride 114 H, Carbon Dioxide 24.0, Anion Gap 4 L, BUN 5 L, Creatinine 0.71, Estim Creat Clear Calc 45.78, Est GFR (MDRD) Af Amer 106, Est GFR (MDRD) Non-Af 88, BUN/Creatinine Ratio 7.1 L, Glucose 128 H, Calcium 8.6, Troponin I < 0.015, Triglycerides 146, Cholesterol 198, LDL Cholesterol 121, VLDL Cholesterol 29, HDL Cholesterol 48 10/31/19 05:30: Hemoglobin A1c 10.1 H 10/31/19 06:11: POC Glucose 101 10/31/19 10:24: POC Glucose 190 H Current Medications Acetaminophen (Tylenol) 650 mg PO Q6H PRN PRN PRN Reason: Pain Score 1-10/Temp > 100.7 F Last Admin: 10/31/19 01:23 Dose: 650 mg Documented by: Aspirin (Ecotrin) 81 mg PO DAILY@0800 [facility] Last Admin: 10/31/19 05:24 Dose: 81 mg Documented by: Cholecalciferol (Vitamin D) 5,000 unit PO DAILY [facility] Last Admin: 10/31/19 10:19 Dose: 5,000 unit Documented by: Clopidogrel Bisulfate (Plavix) 75 mg PO DAILY [facility] Last Admin: 10/31/19 05:24 Dose: 75 mg Documented by: Enoxaparin Sodium (Lovenox) 40 mg SC DAILY [facility] Last Admin: 10/31/19 11:44 Dose: Not Given Documented by: Famotidine (Pepcid) 20 mg PO DAILY [facility] Last Admin: 10/31/19 10:18 Dose: 20 mg Documented by: Glucagon () 1 mg IM .X1 PRN PRN Reason: Hypoglycemia Dextrose (Dextrose 10%-Water) 250 mls @ 999 mls/hr IV .Q16M PRN; Protocol PRN Reason: HYPOGLYCEMIA Sodium Chloride () 250 mls @ 15 mls/hr IV .[id number] PRN PRN Reason: Saline Flush Sodium Chloride () 250 mls @ 15 mls/hr IV .[id number] PRN PRN Reason: Additional IVPB Infusion Insulin Glargine (Lantus (Bk)) 20 units SC BREAKFAST [facility] Last Admin: 10/31/19 04:31 Dose: 20 u Documented by: Insulin Human Lispro (Humalog Kwikpen ([facility])) 0 unit SC Q4 [facility]; Protocol Last Admin: 10/31/19 10:26 Dose: 1 unit Documented by: Lisinopril (Zestril) 5 mg PO DAILY [facility] Last Admin: 10/31/19 05:24 Dose: 5 mg Documented by: Melatonin (Melatonin) 3 mg PO QHS PRN PRN PRN Reason: INSOMNIA Metoprolol Tartrate (Lopressor (Beta Ban)) 25 mg PO BID [facility] Last Admin: 10/31/19 10:18 Dose: 25 mg Documented by: Morphine Sulfate () 2 mg IV Q3H PRN PRN PRN Reason: Pain Score 6-10/10 Ondansetron HCl (Zofran) 4 mg IV Q8H PRN PRN PRN Reason: NAUSEA/VOMITING Pantoprazole Sodium (Protonix) 40 mg PO DAILY [facility] Last Admin: 10/31/19 10:18 Dose: 40 mg Documented by: Senna/Docusate Sodium (Senokot-S, Elsa-Colace) 1 tablet PO BID [facility] Last Admin: 10/31/19 10:18 Dose: 1 tablet Documented by: Sodium Chloride () 10 - 40 ml IV UD PRN PRN Reason: SALINE FLUSH Last Admin: 10/31/19 05:25 Dose: 20 ml Documented by: Disposition: Home Minutes spent on discharge:: 27 Patient Condition:: Stable Meaningful Use Info Meaningful Use Diagnoses (Choose all that apply): None applicable Code Visit Inpatient E&M: 01441 Disch Hosp
--- NOTE | 2019-10-31 11:28 | PHA.DC.MR ---
Pharmacy Service has performed discharge medication reconciliation for this patient. Home Medications Aspirin [Adult Low Dose Aspirin EC] 81 mg PO DAILY 02/04/16 Metoprolol Tartrate [Lopressor (beta elder)] 25 mg PO BID 06/23/17 Nitroglycerin (INPATIENT USE) [Nitrostat] 0.4 mg SUBLINGUAL Q5M PRN 09/28/17 Furosemide [Lasix] 40 mg PO DAILY 11/17/18 Lisinopril 5 mg PO DAILY 11/17/18 Metformin HCl 1,000 mg PO BID 11/17/18 Insulin Glargine,Hum.rec.anlog [Wendiagljenni Kwbartolome U-100] 48 unit SQ BREAKFAST 05/16/19 Pantoprazole Sodium [Protonix] 40 mg PO DAILY #20 tab 05/27/19 Omeprazole 1 cap PO DAILY #30 capsule. 10/03/19 Cholecalciferol (Vitamin D3) [Vitamin D3] 5,000 units PO DAILY 10/30/19 Clopidogrel Bisulfate [Clopidogrel] 75 mg PO DAILY 10/30/19 Glimepiride [Amaryl] 4 mg PO DAILY 10/30/19 Ranitidine [Zantac] 150 mg PO DAILY 10/30/19 The patient's discharge medication list was reviewed for discrepancies and discrepancies were resolved.
--- NOTE | 2019-10-31 11:57 | CASEMGMT ---
Assessment- SW completed assessment with patient. Living situation- Patient lives in a mobile home with her . There are 4 entry steps. She said a [employer] in [place] is going to build a ramp for them for free. PCP: Dr Bulmaro Nogueira DO. He is in [place], [place] Specialists: None Pharmacy: [facility]- prescription coverage through [facility] DME: None ADL's/IADL's: Independent in all activities except driving. She manages her and her 's medications. She bathes herself, cooks, and cleans. Past SNF/rehab: None Past HH: [facility] LW: None POA: Yes and it is on file at [facility]. Her sister Cindy Barr is her POA Plan: SW met with patient. Confirmed address and phone numbers of patient and anyone listed on her demographics sheet. She is independent and has no equipment. She nor her drive, so her sister in law takes them everywhere. Patient denies any d/c needs. Carmen WADE MSW
--- NOTE | 2019-11-01 13:22 | CASEMGMT ---
LIZBET MONDRAGON DC PHONE CALL [place] DATE: 10.31.2019 DC Disposition: Home Diagnosis on Discharge: Chest pain LACE/STRATA: 13/4 Intro role of CM to patient via phone. Pt states she is still feeling poorly, but no specific symptoms. Sister will be making appointment for f/u. LIZBET MONDRAGON recommended she see physician within one week as per instructions. No care improvement suggestions were given and no further questions. Annie BARNETT RN ACM
== END 2019-10-31 12:13 | disposition home or self-care (01) | DRG 639 ==
LOC: ED 19:50 → PCU 22:19
PROVIDERS: Nurse Practitioner Family; Admitting Provider Hospitalist; Emergency Provider Emergency Medicine; PCP Family Medicine; Visit Provider Hospitalist
DX: E11.65 Type 2 diabetes mellitus with hyperglycemia (principal); R07.9 Chest pain, unspecified; I10 Essential (primary) hypertension; K59.00 Constipation, unspecified; K21.9 Gastro-esophageal reflux disease without esophagitis; J44.9 Chronic obstructive pulmonary disease, unspecified; E78.5 Hyperlipidemia, unspecified; I25.10 Atherosclerotic heart disease of native coronary artery without angina pectoris; Z95.5 Presence of coronary angioplasty implant and graft; Z79.4 Long term (current) use of insulin; Z23 Encounter for immunization; F17.200 Nicotine dependence, unspecified, uncomplicated; F31.9 Bipolar disorder, unspecified
CPT/HCPCS: 36415; 71045; 74018; 78452; 80048; 80061; 81001; 82962; 83036; 84484; 85025; 93005; 93017; 97802; 99285; A9500; G0008; J7030; 90686; A4216; J2405; J2785; J7799

== ENCOUNTER 2019-11-25 14:17 | Emergency (ER) | payer MEDICARE, SELFPAY ==
[2017-03-16 08:30] VITALS: BMI 29.2
[2019-10-30 23:12] VITALS: BMI 26.8
[2019-11-25 14:17] VITALS: BP 153/79; PULSE 105; RESP 16; TEMP 37.6; O2SAT 98; BMI 25.8
[2019-11-25 14:56] LABS: Absolute Lymphocyte Count 2.27 X10^3/uL (0.83-4.51); Absolute Neutrophil Count 3.7 X10^3/uL (2.0-7.7); Basophil# 0.04 X10^3/uL; Basophil% 0.6 % (0-1); Eosinophil# 0.24 X10^3/uL; Eosinophils% 3.5 % (0-5); Hematocrit 36.7 % (37-47); Lymphocyte # 2.27 X10^3/ul (4.0); Lymphocyte % 33.4 % (19-41); Mean Corp Hgb Conc 35.4 g/dL (32-36); Mean Corpuscular Hgb 31.5 pg (27.0-32.0); Mean Corpuscular Volume 88.9 fL (81-99); Mean Platelet Vol. 11.2 fl (6.2-12.0); Monocyte% 7.4 % (0-10); NRBC Flagged by Analyzer 0 % (0-5); Neutrophil # 3.71 X10^3/uL (2.7-7.7); Neutrophil % 54.5 % (47-70); Platelet Count 202 K/mm3 (150-450); RBC Distribution Width CV 11.6 % (11.6-14.6); RBC Distribution Width SD 37.2 fl (35.1-43.9); Red Blood Count 4.13 M/mm3 (4.2-5.4); White Blood Count 6.8 K/mm3 (4.4-11.0)
[2019-11-25 15:01] LABS: Blood Gas Specimen Type VEN; SITE OTHER; Time Given 1456; VBG BASE EXCESS -4 mmol/L (-1.0-3.5); VBG Bicarbonate 21 mmol/L (22-26); VBG Oxygen Content 23 mmol/L (23-33); VBG PO2 44 mmHg (25-40); VBG SO2 78 % (50-70); VBG pCO2 38.4 mmHg (41-51); VBG pH 7.36 (7.32-7.42)
[2019-11-25] MEDS: 0.9% Normal Saline 1,000 ML 1000 ML IV ×2 (15:21→15:51)
--- NOTE | 2019-11-25 15:26 | ED.VISSUMM ---
- ER Visit Summary Date of Service: 11/25/19 Chief Complaint: High blood sugar History of Present Illness: The patient is a 64 F with a history of type 2 diabetes. She said her blood sugar was 150 this morning. She ate oatmeal and skim milk. She said she took her insulin as prescribed and then took her blood sugar again around 1 PM and it was 545. She feels tired but has no other symptoms. No other change in her routine or diet. Physical Examination: Afebrile and vital signs unremarkable except for heart rate of 105. Patient appears nontoxic and in no acute distress. Heart regular. Lungs clear. Abdomen soft. Extremities nontender. Skin appears normal. Test Results: Laboratory studies pending. Emergency Department Course and Treatment: Patient treated with IV fluids. Will check CBC, CMP, ketones, VBG. Glucose 627, creatinine 1.37. Urinalysis shows signs of infection. Ketones negative. pH 7.36 on her VBG. Patient received 12 of Humalog. Repeat sugar was 384. Patient was feeling better and requesting discharge, but requested urinalysis because she was having some dysuria. This showed signs of infection. Patient was treated with Bactrim. She has her home medications for her diabetes and will continue them. Follow-up with her primary doctor. Treatment Plan: As above Disposition: Discharge Impression: Hyperglycemia UTI This note was generated with [employer] dictation software. It may contain incorrect words, spelling, and punctuation that were not noted in review of the chart prior to signing ED Disposition - Plan for ED Patient: Referrals: Bulmaro Nogueira DO [Primary Care Provider] -
[2019-11-25 15:28] LABS: ALB/GLOB Ratio 1.1 RATIO (0.9-2.4); AST(SGOT) 12 U/L (15-37); Alanine Aminotransfer ALT/SGPT 21 U/L (13-56); Albumin, Serum 3.8 g/dL (3.2-5.0); Alkaline Phosphatase 73 U/L (45-117); Anion Gap 7 (5-15); BUN 11 mg/dL (7-18); Chloride 101 mmol/L (98-107); Creatinine, Serum 1.37 mg/dL (0.55-1.02); EST Glomerular Filtration Rate 41 mL/min (>60); Est Glom Filt Rate - Afr Amer 50 mL/min (>60); Estimated Creatinine Clearance 33.41 ml/min; Globulin 3.4 g/dL (2.2-4.2); Glucose 627 mg/dL (74-106); Potassium 4.1 mmol/L (3.5-5.1); Protein, Total 7.2 g/dL (6.4-8.2); Sodium Level 131 mmol/L (136-145)
--- NOTE | 2019-11-25 15:28 | ED.RN ---
lab with critical value of glucose 627. dr titus notified at this time.
[2019-11-25] MEDS: Insulin Lispro 100 UNIT/ML INSULN.PEN 12 UNIT SC (15:58)
[2019-11-25 16:50] LABS: Bedside Glucose 384 mg/dL (70-110)
[2019-11-25 17:26] VITALS: BP 124/62; PULSE 78; RESP 16; O2SAT 99
[2019-11-25 17:53] LABS: Color, Urine Yellow (Yellow); Glucose, Dipstick 1000 mg/dl (Normal); Ketone-Dipstick Negative (Negative); Leukocyte Esterase-Dipstick 100 /ul (Negative); Mucous, Urine 0 SEEN /hpf (<or=2+); Nitrite-Dipstick Negative (Negative); Occult Blood-Urine Negative /ul (Negative); Protein-Dipstick Negative (Negative); Red Blood Cells-Urine 0 SEEN /hpf (0-5); Urine Bilirubin Dipstick Negative (Negative); Urine Clarity Clear (Clear); Urine Urobilinogen Normal (Normal)
[2019-11-25 18:00] LABS: Bacteria RARE /hpf (None Seen); Squamous Epithelial Cells - UA 0-5 SEEN /hpf (5-10); White Blood Cells 5-10 SEEN /hpf (0-5)
--- NOTE | 2019-11-25 18:14 | ED.DEP ---
ED Disposition - Plan for ED Patient: Instructions: ED Diabetic Hyperglycemia Prescriptions: Smz/Tmp Ds [Bactrim Ds] 1 tab PO BID #10 tab Prescription Printed Referrals: Bulmaro Nogueira DO [Primary Care Provider] -
[2019-11-25] MEDS: Insulin Lispro 100 UNIT/ML INSULN.PEN 6 UNIT SC (18:20)
[2019-11-25] MEDS: Smz/Tmp Ds Tablet 1 TABLET PO (18:21)
[2019-11-25 18:28] VITALS: BP 134/74; PULSE 74; RESP 15; O2SAT 98
--- NOTE | 2019-11-25 18:29 | ED.RN ---
PT A+OX4, AMBULATORY BY SELF. PER DR. BOUDREAUX PT IS OK TO BE DISCHARGED AFTER MEAL IS GIVEN. THIS RN GAVE PT A SANDWICH PT REQUESTED WITH WATER AND COOKIES. PT WAS INSTRUCTED TO RECHECK BLOOD GLUCOSE AT HOME. PT GIVEN WRITTEN AND VERBAL DISCHARGE INSTRUCTIONS AND HOME GOING PRESCRIPTION, PT VERBALIZES UNDERSTANDING AND DENIES ANY FURTHER QUESTIONS. IV D/C AND COVERED WITH 2X2 GAUZE AND PAPER TAPE. AMBULATORY OUT OF DEPT BY SELF.
== END 2019-11-25 18:33 | disposition home or self-care (01) ==
LOC: ED 14:44
PROVIDERS: Emergency Provider Emergency Medicine; PCP Family Medicine
DX: E11.65 Type 2 diabetes mellitus with hyperglycemia (principal); N39.0 Urinary tract infection, site not specified; I25.10 Atherosclerotic heart disease of native coronary artery without angina pectoris; J44.9 Chronic obstructive pulmonary disease, unspecified; K21.9 Gastro-esophageal reflux disease without esophagitis; I10 Essential (primary) hypertension; F31.9 Bipolar disorder, unspecified; Z86.73 Personal history of transient ischemic attack (TIA), and cerebral infarction without residual deficits; Z79.4 Long term (current) use of insulin; Z79.82 Long term (current) use of aspirin; Z79.84 Long term (current) use of oral hypoglycemic drugs; Z79.02 Long term (current) use of antithrombotics/antiplatelets; Z79.899 Other long term (current) drug therapy; Z72.0 Tobacco use
CPT/HCPCS: 80053; 81001; 82009; 82803; 82962; 85025; 96360; 96361; 96372; 99284; J7030

== ENCOUNTER 2019-12-05 12:42 | Emergency (ER) | payer MEDICARE, SELFPAY ==
[2017-03-16 08:30] VITALS: BMI 29.2
[2019-12-05 12:47] VITALS: BP 117/54; PULSE 79; RESP 14; TEMP 36.5; O2SAT 99; BMI 27.7
[2019-12-05 12:52] VITALS: BP 117/54; PULSE 76; RESP 17; O2SAT 98
[2019-12-05 13:01] LABS: Bedside Glucose 103 mg/dL (70-110)
--- NOTE | 2019-12-05 13:20 | EKG12_ITS ---
Test Reason : CP Blood Pressure : / mmHG Vent. Rate : 074 BPM Atrial Rate : 074 BPM P-R Int : 134 ms QRS Dur : 086 ms QT Int : 396 ms P-R-T Axes : 055 035 040 degrees QTc Int : 439 ms Normal sinus rhythm Normal ECG Confirmed by TJ BARFIELD, GLORY ([id number]), acquisition editor TAQUERIA CHAMBERLAIN ([id number]) on 12/10/2019 8:44:57 AM Referred By: [facility] Confirmed By:AL SPENCER MD
--- NOTE | 2019-12-05 13:20 | RAD_ITS ---
STUDY: X-RAY CHEST REASON FOR EXAM: Female, 64 years old. CHEST PAINS AND SOB TECHNIQUE: Single AP portable view of the chest. COMPARISON: October 30, 2019 FINDINGS: The lungs are clear and expanded. There is no demonstrated pleural abnormality. Normal size heart. Left heart and vascular stent noted. Stable mediastinum and osseous structures. RAD/Chest 1 View (Portable) IMPRESSION: No acute process Electronically Signed: Mike Thompson MD at 13:50 EST , Service support ,
[2019-12-05 13:21] LABS: Bedside Glucose 128 mg/dL (70-110)
--- NOTE | 2019-12-05 13:22 | CT_ITS ---
STUDY: CT BRAIN WITHOUT CONTRAST REASON FOR EXAM: Female, 64 years old. Altered mental status RADIATION DOSAGE (If Supplied By Facility): CTDIvol = ( 44.99 ) mGy, DLP = ( 779.24 ) mGycm TECHNIQUE: Transaxial CT imaging of the brain was performed without administration of intravenous contrast material. Individualized dose optimization techniques were used for this CT. COMPARISON: Head CT dated January 05, 2019 FINDINGS: Normal soft tissue structures. Normal calvarium. Normal size ventricles and extra-axial spaces for the patient''s age. Normal white matter tracts of the cerebral hemispheres. Normal basal ganglia and thalami. Normal brainstem. Normal cerebellum. There is no intracranial hemorrhage. There are no findings of an acute ischemic infarction. Normal visualized paranasal sinuses. CT/Brain/Head without Contrast IMPRESSION: No demonstrated acute or significant intracranial process. Electronically Signed: Mike Thompson MD at 13:59 EST , Service support ,
[2019-12-05 13:44] LABS: Absolute Lymphocyte Count 2.14 X10^3/uL (0.83-4.51); Absolute Neutrophil Count 12.4 X10^3/uL (2.0-7.7); Basophil# 0.06 X10^3/uL; Basophil% 0.4 % (0-1); Eosinophil# 0.21 X10^3/uL; Eosinophils% 1.3 % (0-5); Hematocrit 40.3 % (37-47); Hemoglobin 13.7 g/dL (12.0-15.0); Lymphocyte # 2.14 X10^3/ul (4.0); Lymphocyte % 13.6 % (19-41); Mean Corpuscular Volume 91.2 fL (81-99); Mean Platelet Vol. 11.1 fl (6.2-12.0); Monocyte# 0.83 X10^3/uL; Monocyte% 5.3 % (0-10); NRBC Flagged by Analyzer 0 % (0-5); Neutrophil # 12.41 X10^3/uL (2.7-7.7); Neutrophil % 78.5 % (47-70); Platelet Count 257 K/mm3 (150-450); RBC Distribution Width CV 11.7 % (11.6-14.6); RBC Distribution Width SD 39.5 fl (35.1-43.9); Red Blood Count 4.42 M/mm3 (4.2-5.4); White Blood Count 15.8 K/mm3 (4.4-11.0)
[2019-12-05 13:51] LABS: Alcohol, Blood (Medical)-Serum < 3.0 mg/dL
--- NOTE | 2019-12-05 13:57 | ED.DCSUM_ITS ---
History of Present Illness Chief Complaint: Chest Pain Informant: Patient Onset: Today Narrative: Patient is a 64-year-old female presenting for chest pain. Patient is a called EMS because she was hypoglycemic at home with a blood sugar of 32. She is a diabetic. Per EMS her blood sugar was in the 70s. Was rechecked here and was 97 and then 127. Patient was noted to be somnolent per EMS. She did start complain of chest pain. She states the pain is in the center of her chest. Patient does not contribute much to her history. She denies any shortness of breath or radiation of pain. She denies any nausea, vomiting or abdominal pain. She denies any black or bloody stools. She denies any other complaints at this time. Past Medical History - Allergies and Home Meds Allergies/Adverse Reactions: Allergies Penicillins Allergy (Verified 12/05/19 12:42) Hives hydrocodone bitartrate [From Vicodin] Adverse Reaction (Verified 12/05/19 12:42) Vomiting ibuprofen Adverse Reaction (Verified 12/05/19 12:42) Vomiting Primary Care Physician: Bulmaro Nogueira DO [Primary Care Provider] - Past Medical History: - - CAD, DM, Bipolar disorder, GERD, hypertension, hyperlipidemia, COPD, tobacco abuse Surgical History: angioplasty, appendectomy, cholecystectomy, hysterectomy Smoking Status: Former smoker Alcohol: None Drugs: None - Family History Maternal Family History: Reports: Cancer - Uterine cancer, Diabetes, Heart Disease Paternal Family History: Reports: Heart Disease Sibling Family History: Reports: Diabetes, Heart Disease, Hypertension Review of Systems General: Denies: Chills, Fever, Sweats Eyes: Denies: Visual changes - bilaterally, Diplopia ENT: Denies: Rhinorrhea, Sore throat Cardiovascular: Reports: Chest pain. Denies: Palpitations, Heart racing Respiratory: Denies: Dyspnea, Cough, Dyspnea on exertion Gastrointestinal: Denies: Abdominal pain, Nausea, Vomiting, Diarrhea, Melena, Hematochezia Genitourinary: Denies: Dysuria, Hematuria, Frequency Musculoskeletal: Denies: Back pain, Extremity Pain Skin: Denies: Rash, Wounds Neurological: Reports: Weakness - Generalized. Denies: Headache, Numbness Physical Exam Vital Signs/Narrative: Vital Signs Temp Pulse Resp BP Pulse Ox 12/05/19 12:52 76 17 117/54 L 98 12/05/19 12:47 97.7 F L 79 14 117/54 L 99 Inital Vital Signs reviewed: Yes General: Well nourished, Well developed, No Acute Distress Head: Normocephalic, Atraumatic Eyes: Perrl, EOMI. Negative for: Pale conjunctiva ENT: Moist mucous membranes, No rhinorrhea, TM's clear Neck: Supple, Nontender Cardiovascular: Regular rate, Regular rhythm, No murmurs Respiratory: No distress, CTA bilaterally, Chest tenderness - Center of chest, this reproduces the patient's chest pain Abdomen: Soft, Nontender, Nondistended, Normal bowel sounds Back: Nontender, Normal Inspection Extremities: Nontender, No edema Skin: Normal color, No rash Neurological: Alert, Oriented x3, Cranial nerves II-XII grossly intact, Normal Strength, Normal Sensation, - - Patient is initially slightly somnolent but on reevaluation is conversing and acting appropriately with no intervention Psychological: Normal affect, Normal Mood Diagnostic/Tx/Re-eval Chest X-Ray - ED: 1 View, Read by ED Physician, Read by Radiologist, No Acute Disease Clinical Impression(s) from Imaging Studies Chest X-Ray 12/05/19 13:20 IMPRESSION: No acute process Electronically Signed: Mike Thompson MD at 13:50 EST , Service support , Brain CT 12/05/19 13:22 IMPRESSION: No demonstrated acute or significant intracranial process. Electronically Signed: Mike Thompson MD at 13:59 EST , Service support , Laboratory Data 12/05/19 12/05/19 12/05/19 12:54 13:15 13:15 WBC 15.8 H RBC 4.42 Hgb 13.7 Hct 40.3 MCV 91.2 MCH 31.0 MCHC 34.0 RDW Std Deviation 39.5 RDW Coeff of [place] 11.7 Plt Count 257 MPV 11.1 Immature Gran % (Auto) 0.900 Neut % (Auto) 78.5 H Lymph % (Auto) 13.6 L [place] % (Auto) 5.3 Eos % (Auto) 1.3 Baso % (Auto) 0.4 Absolute Neuts (auto) 12.4 H Absolute Lymphs (auto) 2.14 Nucleated RBC % 0 Sodium Potassium Chloride Carbon Dioxide Anion Gap BUN Creatinine Estim Creat Clear Calc Est GFR (MDRD) Af Amer Est GFR (MDRD) Non-Af BUN/Creatinine Ratio Glucose Calcium Troponin I Urine Color Urine Clarity Urine pH Ur Specific [place] Urine Protein Urine Glucose (UA) Urine Ketones Urine Occult Blood Urine Nitrite Urine Bilirubin Urine Urobilinogen Ur Leukocyte Esterase Urine RBC Urine WBC Ur Squamous Epith Cells Urine Bacteria Hyaline Casts Urine Mucus Urine Opiates Screen Urine Methadone Screen Ur Barbiturates Screen Ur Phencyclidine Scrn Ur Amphetamines Screen U Methamphetamin-MDMA U Benzodiazepines Scrn Urine Cocaine Screen U Cannabinoids Screen Ur Drug Screen Comment Ethyl Alcohol POC Glucose 103 128 H 12/05/19 12/05/19 12/05/19 13:15 13:15 15:10 WBC RBC Hgb Hct MCV MCH MCHC RDW Std Deviation RDW Coeff of [place] Plt Count MPV Immature Gran % (Auto) Neut % (Auto) Lymph % (Auto) [place] % (Auto) Eos % (Auto) Baso % (Auto) Absolute Neuts (auto) Absolute Lymphs (auto) Nucleated RBC % Sodium 141 Potassium 3.6 Chloride 107 Carbon Dioxide 29.0 Anion Gap 5 BUN 19 H Creatinine 1.08 H Estim Creat Clear Calc 42.39 Est GFR (MDRD) Af Amer 65 Est GFR (MDRD) Non-Af 54 L BUN/Creatinine Ratio 17.6 Glucose 103 Calcium 10.0 Troponin I < 0.015 Urine Color Urine Clarity Urine pH Ur Specific [place] Urine Protein Urine Glucose (UA) Urine Ketones Urine Occult Blood Urine Nitrite Urine Bilirubin Urine Urobilinogen Ur Leukocyte Esterase Urine RBC Urine WBC Ur Squamous Epith Cells Urine Bacteria Hyaline Casts Urine Mucus Urine Opiates Screen NEGATIVE Urine Methadone Screen NEGATIVE Ur Barbiturates Screen NEGATIVE Ur Phencyclidine Scrn NEGATIVE Ur Amphetamines Screen NEGATIVE U Methamphetamin-MDMA NEGATIVE U Benzodiazepines Scrn NEGATIVE Urine Cocaine Screen NEGATIVE U Cannabinoids Screen NEGATIVE Ur Drug Screen Comment Ethyl Alcohol < 3.0 POC Glucose 12/05/19 15:10 WBC RBC Hgb Hct MCV MCH MCHC RDW Std Deviation RDW Coeff of [place] Plt Count MPV Immature Gran % (Auto) Neut % (Auto) Lymph % (Auto) [place] % (Auto) Eos % (Auto) Baso % (Auto) Absolute Neuts (auto) Absolute Lymphs (auto) Nucleated RBC % Sodium Potassium Chloride Carbon Dioxide Anion Gap BUN Creatinine Estim Creat Clear Calc Est GFR (MDRD) Af Amer Est GFR (MDRD) Non-Af BUN/Creatinine Ratio Glucose Calcium Troponin I Urine Color Yellow Urine Clarity Sl. Cloudy Urine pH 5.0 Ur Specific [place] 1.015 Urine Protein Negative Urine Glucose (UA) 250 H Urine Ketones Negative Urine Occult Blood Negative Urine Nitrite Negative Urine Bilirubin Negative Urine Urobilinogen Normal Ur Leukocyte Esterase 100 H Urine RBC 0 SEEN Urine WBC 0-5 SEEN Ur Squamous Epith Cells 0-5 SEEN Urine Bacteria 1+ Hyaline Casts 10-25 SEEN Urine Mucus 2+ Urine Opiates Screen Urine Methadone Screen Ur Barbiturates Screen Ur Phencyclidine Scrn Ur Amphetamines Screen U Methamphetamin-MDMA U Benzodiazepines Scrn Urine Cocaine Screen U Cannabinoids Screen Ur Drug Screen Comment Ethyl Alcohol POC Glucose - Rhythm Strip Rhythm Strip: Sinus Rhythm Rate: 74 Ectopy: None - EKG Initial EKG Interpretation: Sinus Rhythm, - - Normal sinus rhythm at a rate of 74 Normal axis Normal intervals T wave flattening in lead III, otherwise normal EKG - Medical Decision Making Patient is evaluated for chest pain that developed after an episode of hypoglycemia. Patient is not hypoglycemic for us. She is slightly somnolent bu t seems to improve without any intervention. Because of her somnolence I did order a head CT on her initial arrival. This was normal. Her blood sugar stable in the emergency room. Troponin is negative. EKG does not show any dynamic changes. Patient was evaluated for an episode of chest pain similar to this 1 month ago. She had a stress test at that time. Patient had cardiac catheterization about 2 years ago. 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 Quesada, who reviewed her records. He agreed that if patient had a negative delta troponin she could be discharged home as odds of her having ACS with a normal stress test 1 month ago are quite low. Patient's chest pain does improve while she is in the emergency room. Work-up is otherwise normal for patient. Troponin is negative. Patient does not have a bump in her troponin. She will be discharged home. On reevaluation patient is now much more alert and interactive. She states she feels better and is ready to go home. I am not sure what to make of her initial presentation but as her symptoms have resolved she will be discharged home. Patient is counseled on signs and symptoms requiring return to the emergency room. Patient verbalizes agreement and understand this plan. Patient discharged home in stable and improved condition. ED Disposition - Plan for ED Patient: Disposition: Home or Assisted Living Diagnosis: Chest pain Instructions: CHEST PAIN, Uncertain Cause Referrals: Bulmaro Nogueira, [Primary Care Provider] - Additional Instructions: Please follow-up with your heart doctor, Dr. Quesada, as well as your primary care doctor. Watch her sugar so they do not get too low. Return the emergency room with any worsening symptoms.
[2019-12-05 13:58] LABS: Anion Gap 5 (5-15); BUN 19 mg/dL (7-18); BUN/Creat Ratio 17.6 RATIO (10-20); Chloride 107 mmol/L (98-107); Creatinine, Serum 1.08 mg/dL (0.55-1.02); EST Glomerular Filtration Rate 54 mL/min (>60); Est Glom Filt Rate - Afr Amer 65 mL/min (>60); Estimated Creatinine Clearance 42.39 ml/min; Glucose 103 mg/dL (74-106); Potassium 3.6 mmol/L (3.5-5.1); Sodium Level 141 mmol/L (136-145)
[2019-12-05 14:42] VITALS: BP 115/60; PULSE 74; RESP 16; O2SAT 96
[2019-12-05] MEDS: Aspirin 81 MG TAB.CHEW 324 MG PO (14:44)
[2019-12-05 15:00] VITALS: RESP 16
[2019-12-05 15:16] VITALS: BP 125/66; PULSE 76; RESP 18; O2SAT 96
[2019-12-05 15:21] LABS: Red Blood Cells-Urine 0 SEEN /hpf (0-5)
[2019-12-05 15:24] LABS: Color, Urine Yellow (Yellow); Glucose, Dipstick 250 mg/dl (Normal); Ketone-Dipstick Negative (Negative); Leukocyte Esterase-Dipstick 100 /ul (Negative); Nitrite-Dipstick Negative (Negative); Occult Blood-Urine Negative /ul (Negative); Protein-Dipstick Negative (Negative); Specific Gravity, Urine 1.015 (1.002-1.030); Urine Bilirubin Dipstick Negative (Negative); Urine Clarity Sl. Cloudy (Clear); Urine Urobilinogen Normal (Normal)
[2019-12-05 15:36] LABS: Bacteria 1+ /hpf (None Seen); Hyaline Cast 10-25 SEEN /lpf (0-5); Mucous, Urine 2+ /hpf (<or=2+); Squamous Epithelial Cells - UA 0-5 SEEN /hpf (5-10); White Blood Cells 0-5 SEEN /hpf (0-5)
[2019-12-05 15:56] LABS: Amphetamine Urine VISTA NEGATIVE (<1000 ng/mL); Barbiturate Urine VISTA NEGATIVE (< 200 ng/mL); Benzodiazepine Urine VISTA NEGATIVE (< 200 ng/mL); Cocaine Urine VISTA NEGATIVE (< 300 ng/mL); Ecstacy Urine VISTA NEGATIVE (< 500 ng/mL); Methadone Urine VISTA NEGATIVE (< 300 ng/mL); PCP Urine VISTA NEGATIVE (< 25 ng/mL); THC Urine VISTA NEGATIVE (< 50 ng/mL); Vista UDS pH Range 5
[2019-12-05 16:00] VITALS: BP 129/83; PULSE 73; RESP 16
== END 2019-12-05 17:12 | disposition home or self-care (01) ==
PROVIDERS: Emergency Provider Emergency Medicine; PCP Family Medicine
DX: R07.9 Chest pain, unspecified (principal); I10 Essential (primary) hypertension; E11.9 Type 2 diabetes mellitus without complications; I25.10 Atherosclerotic heart disease of native coronary artery without angina pectoris; F31.9 Bipolar disorder, unspecified; K21.9 Gastro-esophageal reflux disease without esophagitis; E78.5 Hyperlipidemia, unspecified; J44.9 Chronic obstructive pulmonary disease, unspecified; Z79.4 Long term (current) use of insulin; Z79.82 Long term (current) use of aspirin; Z79.84 Long term (current) use of oral hypoglycemic drugs; Z79.899 Other long term (current) drug therapy; Z87.891 Personal history of nicotine dependence
CPT/HCPCS: 70450; 71045; 80048; 80307; 80320; 81001; 82962; 84484; 85025; 93005; 99285; A4216; G0480

== ENCOUNTER 2020-03-07 18:40 | Emergency (ER) | payer MEDICARE, SELFPAY ==
[2017-03-16 08:30] VITALS: BMI 29.2
[2020-03-07 18:42] VITALS: BP 149/84; PULSE 97; RESP 14; TEMP 36.9; O2SAT 100; BMI 26.3
--- NOTE | 2020-03-07 19:00 | ED.VISSUMM ---
- ER Visit Summary Date of Service: 03/07/20 Chief Complaint: Chest pain History of Present Illness: The patient is a 64 F who presents with chest pain that began today. Patient states the pain is over the substernal area where she had recent bypass surgery. Patient describes the pain is sharp. Patient states nothing makes it better or worse. Patient states she took 2 baby aspirin at home with no improvement. Patient states she also took 2 sublingual nitroglycerin at home with no improvement. Patient admits to some nausea and vomiting. Patient admits to some pain with deep breathing. Patient denies any fevers or chills. Patient denies any diaphoresis. Patient denies any lightheadedness. Patient does admit to some palpitations. Physical Examination: Vital signs are stable. Patient is afebrile. Patient is in no acute distress. Oral mucosa is pink and moist. Neck is supple. Trachea is midline. There is no JVD. Heart was regular rate and rhythm. Lungs are clear and equal bilaterally. There is reproducible tenderness over the sternum. Abdomen is soft. Bowel sounds are normal. There is no tenderness. Cranial nerves II through XII are intact. There are no focal motor or sensory deficits noted. Skin is warm and dry. There are no rashes noted. Extremities are intact. There is no calf tenderness or edema. Test Results: EKG shows a normal sinus rhythm with a rate of 100. There are no acute ST or T wave changes. This was unchanged compared to previous EKG dated 12/05/2019. CBC and metabolic profile were obtained. Glucose was slightly elevated at 390. Troponin was normal. Portable chest x-ray was obtained. There is mild vascular congestion bilaterally. This was interpreted by the radiologist and myself. Emergency Department Course and Treatment: Patient was given 2 baby aspirin here since she had 2 baby aspirin at home. Patient was given a dose of morphine here. Patient felt better on reevaluation. Patient was advised of her findings. Since she had a normal stress test 4 months ago, along with multiple negative evaluations here in the emergency department over the past 4 months, I do not feel this is cardiac in nature. I feel the patient will be able to be discharged home. Patient was instructed to follow-up with her primary care physician in 5 to 7 days. Patient understood and was agreeable with the plan. All questions were answered. Disposition: Discharge home Impression: Chest pain This note was generated with Dragon dictation software. It may contain incorrect words, spelling, and punctuation that were not noted in review of the chart prior to signing ED Disposition - Plan for ED Patient: Disposition: Home or Assisted Living Diagnosis: Chest pain Instructions: ED Chest Pain Atypical Unkn Cause Referrals: Bulmaro Nogueira DO [Primary Care Provider] - 3-5 Days
--- NOTE | 2020-03-07 19:03 | EKG12_ITS ---
Test Reason : CP Blood Pressure : / mmHG Vent. Rate : 100 BPM Atrial Rate : 100 BPM P-R Int : 146 ms QRS Dur : 076 ms QT Int : 366 ms P-R-T Axes : 050 029 040 degrees QTc Int : 472 ms Normal sinus rhythm Normal ECG Confirmed by BRIT CROWE ([id number]), senior technical editor ARON HASKINS ([id number]) on 03/10/2020 11:00:09 AM Referred By: ES Confirmed By:BRIT CROWE
[2020-03-07 19:08] VITALS: O2SAT 96
--- NOTE | 2020-03-07 19:13 | RAD_ITS ---
STUDY: X-RAY CHEST REASON FOR EXAM: Female, 64 years old. chest pain started about 1530 today. open heart at [facility] 3 weeks ago. TECHNIQUE: Single AP portable view of the chest. COMPARISON: December 05, 2019 FINDINGS: Mild pulmonary vascular congestion and edema is present bilaterally in the perihilar lower lobe regions. There is no demonstrated pleural abnormality. New sternal cerclage wires and vascular clips are present from a prior sternotomy and coronary artery bypass graft procedure (CABG). Normal heart size. Stable osseous structures and mediastinal structures. Stable cardiac vascular stents. RAD/Chest 1 View (Portable) IMPRESSION: 1. Mild pulmonary vascular congestion and edema is present bilaterally in the perihilar lower lobe regions. Electronically Signed: Mike Thompson MD at 19:45 EDT , Service support ,
[2020-03-07] MEDS: Morphine 4 MG/ML Syringe IV (19:15)
[2020-03-07] MEDS: Aspirin 81 MG TAB.CHEW 162 MG PO (19:15)
[2020-03-07 19:17] LABS: Absolute Neutrophil Count 2.2 X10^3/uL (2.0-7.7); Basophil# 0.03 X10^3/uL; Basophil% 0.6 % (0-1); Eosinophil# 0.23 X10^3/uL; Eosinophils% 4.3 % (0-5); Hematocrit 38.9 % (37-47); Hemoglobin 13.3 g/dL (12.0-15.0); Mean Corp Hgb Conc 34.2 g/dL (32-36); Mean Corpuscular Hgb 31.5 pg (27.0-32.0); Mean Corpuscular Volume 92.2 fL (81-99); Mean Platelet Vol. 10.5 fl (6.2-12.0); Monocyte# 0.46 X10^3/uL; Monocyte% 8.6 % (0-10); NRBC Flagged by Analyzer 0 % (0-5); Neutrophil # 2.16 X10^3/uL (2.7-7.7); Neutrophil % 40.6 % (47-70); Platelet Count 271 K/mm3 (150-450); RBC Distribution Width CV 13.8 % (11.6-14.6); RBC Distribution Width SD 46.1 fl (35.1-43.9); Red Blood Count 4.22 M/mm3 (4.2-5.4); White Blood Count 5.3 K/mm3 (4.4-11.0)
[2020-03-07 19:28] LABS: Anion Gap 9 (5-15); BUN 9 mg/dL (7-18); BUN/Creat Ratio 8.6 RATIO (10-20); Calcium,Total 9.6 mg/dL (8.5-10.1); Chloride 102 mmol/L (98-107); Creatinine, Serum 1.05 mg/dL (0.55-1.02); EST Glomerular Filtration Rate 56 mL/min (>60); Est Glom Filt Rate - Afr Amer 67 mL/min (>60); Glucose 390 mg/dL (74-106); Sodium Level 136 mmol/L (136-145)
[2020-03-07 20:23] VITALS: BP 144/78; PULSE 89; RESP 17; O2SAT 96
== END 2020-03-07 20:30 | disposition home or self-care (01) ==
PROVIDERS: Emergency Provider Emergency Medicine; PCP Family Medicine
DX: R07.89 Other chest pain (principal); R11.2 Nausea with vomiting, unspecified; R06.00 Dyspnea, unspecified; R00.2 Palpitations; I10 Essential (primary) hypertension; I25.10 Atherosclerotic heart disease of native coronary artery without angina pectoris; J44.9 Chronic obstructive pulmonary disease, unspecified; E11.9 Type 2 diabetes mellitus without complications; Z95.1 Presence of aortocoronary bypass graft; Z79.4 Long term (current) use of insulin; Z79.82 Long term (current) use of aspirin; Z79.84 Long term (current) use of oral hypoglycemic drugs; Z79.899 Other long term (current) drug therapy; Z87.891 Personal history of nicotine dependence
CPT/HCPCS: 71045; 80048; 84484; 85025; 93005; 96374; 99284; A4216

== ENCOUNTER 2020-03-28 19:25 | Inpatient (IN) | payer MEDICARE, SELFPAY ==
[2017-03-16 08:30] VITALS: BMI 29.2
[2020-03-28 19:26] VITALS: BP 175/88; PULSE 108; RESP 18; TEMP 36.3; O2SAT 97; BMI 27.5
[2020-03-28 19:36] LABS: Bedside Glucose > 500 mg/dL (70-110)
--- NOTE | 2020-03-28 19:43 | EKG12_ITS ---
Test Reason : HYPOGLYCEMIA Blood Pressure : / mmHG Vent. Rate : 098 BPM Atrial Rate : 098 BPM P-R Int : 152 ms QRS Dur : 072 ms QT Int : 382 ms P-R-T Axes : 044 019 033 degrees QTc Int : 487 ms Normal sinus rhythm Normal ECG Confirmed by ADRIAN BARFIELD, DAVID ([id number]), assistant production editor TAQUERIA CHAMBERLAIN ([id number]) on 04/01/2020 10:43:43 AM Referred By: CHICA Confirmed By:DAVID CAMPBELL MD
--- NOTE | 2020-03-28 19:45 | RAD_ITS ---
STUDY: X-RAY - LEFT HUMERUS REASON FOR EXAM: Female, 64 years old. Left arm pain after fall TECHNIQUE: 2 view(s) of the humerus. COMPARISON: None. FINDINGS: Normal visualized humerus. There is no demonstrated fracture or osseous destructive process. There is no demonstrated soft tissue abnormality. RAD/Humerus min 2 Views IMPRESSION: Normal x-ray examination of the humerus. Electronically Signed: Izaiah Maza MD at 21:21 EDT , Service support ,
[2020-03-28] MEDS: 0.9% Normal Saline 1,000 ML 999 ML IV ×2 (19:49→21:40)
[2020-03-28] MEDS: Morphine 4 MG/ML Syringe IV (20:06)
[2020-03-28 20:10] LABS: Absolute Lymphocyte Count 1.66 X10^3/uL (0.83-4.51); Absolute Neutrophil Count 2.5 X10^3/uL (2.0-7.7); Basophil# 0.04 X10^3/uL; Basophil% 0.8 % (0-1); Eosinophil# 0.15 X10^3/uL; Eosinophils% 3.1 % (0-5); Hematocrit 37.6 % (37-47); Hemoglobin 12.4 g/dL (12.0-15.0); Lymphocyte # 1.66 X10^3/ul (4.0); Lymphocyte % 34.2 % (19-41); Mean Corpuscular Hgb 30.8 pg (27.0-32.0); Mean Corpuscular Volume 93.3 fL (81-99); Mean Platelet Vol. 11.4 fl (6.2-12.0); Monocyte# 0.49 X10^3/uL; Monocyte% 10.1 % (0-10); NRBC Flagged by Analyzer 0 % (0-5); Neutrophil # 2.46 X10^3/uL (2.7-7.7); Neutrophil % 50.6 % (47-70); Platelet Count 204 K/mm3 (150-450); RBC Distribution Width CV 12.8 % (11.6-14.6); RBC Distribution Width SD 44.1 fl (35.1-43.9); Red Blood Count 4.03 M/mm3 (4.2-5.4); White Blood Count 4.9 K/mm3 (4.4-11.0)
--- NOTE | 2020-03-28 20:15 | CT_ITS ---
STUDY: CT BRAIN WITHOUT CONTRAST REASON FOR EXAM: Female, 64 years old. FALL, ELEVATED BLOOD GLUCOSE. Hx of diabetes, CAD, TIA, [place], CABG and heart stents RADIATION DOSAGE (If Supplied By Facility): CTDIvol = ( 44.99 ) mGy, DLP = ( 779.24 ) mGycm TECHNIQUE: Transaxial CT imaging of the brain was performed without administration of intravenous contrast material. Individualized dose optimization techniques were used for this CT. COMPARISON: 12/05/2019 FINDINGS: Normal soft tissue structures. Normal calvarium. Normal size ventricles and extra-axial spaces for the patient''s age. Normal white matter tracts of the cerebral hemispheres. There are small punctate calcifications of the basal ganglia which are seen in the aging brain as a normal variant. Normal brainstem. Normal cerebellum. There is no intracranial hemorrhage. There are no findings of an acute ischemic infarction. Normal visualized paranasal sinuses. CT/Brain/Head without Contrast IMPRESSION: Normal unenhanced CT scan of the brain. Electronically Signed: Izaiah Maza MD at 21:16 EDT , Service support ,
[2020-03-28 20:38] LABS: Anion Gap 13 (5-15); BUN 13 mg/dL (7-18); BUN/Creat Ratio 8.7 RATIO (10-20); Chloride 94 mmol/L (98-107); Creatinine, Serum 1.49 mg/dL (0.55-1.02); EST Glomerular Filtration Rate 37 mL/min (>60); Est Glom Filt Rate - Afr Amer 45 mL/min (>60); Estimated Creatinine Clearance 30.72 ml/min; Glucose 867 mg/dL (74-106); Magnesium 1.9 mg/dL (1.6-2.6); Potassium 4.1 mmol/L (3.5-5.1); Sodium Level 130 mmol/L (136-145)
[2020-03-28 20:39] LABS: Hemoglobin A1c 12.8 % (3.8-5.6)
--- NOTE | 2020-03-28 20:54 | RAD_ITS ---
STUDY: X-RAY CHEST REASON FOR EXAM: Female, 64 years old. hyperglycemia. Pt states she keeps falling TECHNIQUE: Single AP portable view of the chest. COMPARISON: 03/07/2020. FINDINGS: Normal lung volumes. Possible mild bibasilar atelectasis or infiltrate. No effusions. Normal size heart. Previous CABG. Normal mediastinum and jovan. Normal visualized pulmonary arteries. Normal visualized aortic arch and descending thoracic aorta. Normal visualized thoracic spine. Normal visualized ribs, clavicles, and shoulders. There is no demonstrated abnormality of the visualized soft tissue structures of the upper abdomen. RAD/Chest 1 View (Portable) IMPRESSION: Possible mild bibasilar atelectasis or infiltrate. Electronically Signed: Izaiah Maza MD at 21:22 EDT , Service support ,
[2020-03-28 21:34] LABS: Bacteria 0 SEEN /hpf (None Seen); Mucous, Urine 0 SEEN /hpf (<or=2+); Red Blood Cells-Urine 0 SEEN /hpf (0-5); Squamous Epithelial Cells - UA 0 SEEN /hpf (5-10)
[2020-03-28 21:36] LABS: Color, Urine Yellow (Yellow); Glucose, Dipstick 1000 mg/dl (Normal); Ketone-Dipstick Negative (Negative); Leukocyte Esterase-Dipstick 25 /ul (Negative); Nitrite-Dipstick Negative (Negative); Occult Blood-Urine Negative /ul (Negative); Protein-Dipstick Negative (Negative); Urine Bilirubin Dipstick Negative (Negative); Urine Clarity Clear (Clear); Urine Urobilinogen Normal (Normal)
[2020-03-28 21:40] VITALS: BP 149/74; BP 152/73; PULSE 95; PULSE 96
[2020-03-28 21:40] LABS: Bedside Glucose > 500 mg/dL (70-110)
[2020-03-28 21:43] VITALS: BP 153/73; PULSE 94; RESP 18; TEMP 36.4; O2SAT 96
[2020-03-28 22:01] LABS: White Blood Cells 0-5 SEEN /hpf (0-5)
--- NOTE | 2020-03-28 22:08 | ED.DCSUM_ITS ---
- ER Visit Summary Date of Service: 03/28/20 Chief Complaint: Elevated blood sugar History of Present Illness: The patient is a [address] Connor Nogueira. She reports that 2 days ago her blood sugar was 121. Today it registered as high on her glucometer. She reports that she has been lightheaded and has fallen twice. She is not on anticoagulants. However, she had an aortic valve replacement 2 months ago at [facility]. Patient reports that she has chest pain that began this morning. Is a constant sharp pain is 1010 worsening to 10 currently. Is worsened by arching her back. She also reports that she has had left arm pain for the past 2-1/2 weeks. It is a constant pain is 10 on 10 in severity as well. She denies any hip, wrist, or neck pain. Physical Examination: Vitals: 97.4, 175/88, 108, 18, 97% of December not hypoxic. General: Well-nourished and well-developed. Head: Normocephalic atraumatic. Neck: Supple, no lymphadenopathy. No JVD. Nontender. Cardiovascular: Tachycardic regular rhythm. No murmurs. Respiratory: No respiratory distress. Clear to auscultation bilaterally. Abdominal: Soft, nontender, nondistended, normal bowel sounds. No guarding, rebound, or peritoneal signs. Back: Nontender. Extremities: Nontender, no edema. Skin: Normal color, no rash. Neurologic: Alert and oriented ?3. Cranial nerves II through XII are intact. Normal strength and sensation. Psych: Normal affect. Test Results: EKG is sinus at [address] changes. Chem-7 is marked for sodium of 130 which is normal when you correct for her glucose of 867, creatinine is 1.49, chloride is 94. Serum ketones are negative. CBC is marked for immature granulocytes 1.2%. Magnesium and phosphorus are normal. Hemoglobin A1c is 12.8. UA is negative. Troponin is negative. Clinical Impression(s) from Imaging Studies Humerus X-Ray 03/28/20 19:45 IMPRESSION: Normal x-ray examination of the humerus. Electronically Signed: Izaiah Maza MD at 21:21 EDT , Service support , Brain CT 03/28/20 20:15 IMPRESSION: Normal unenhanced CT scan of the brain. Electronically Signed: zIaiah Maza MD at 21:16 EDT , Service support , Chest X-Ray 03/28/20 20:54 IMPRESSION: Possible mild bibasilar atelectasis or infiltrate. Electronically Signed: Izaiah Maza MD at 21:22 EDT , Service support , Emergency Department Course and Treatment: Patient was given a dose of morphine and Zofran IV. She was given 2 L of normal saline. She is orthostatic while here. She has a very difficult time even standing up at the bedside to use the commode. She gets very lightheaded with this. Treatment Plan: Patient was discussed with Dr. Alexis. She will be admitted to the hospital for further evaluation and treatment. Disposition: Admitted in improved condition. Impression: 1. Hyperglycemia. 2. Type 2 diabetes mellitus. 3. Repeated falls. 4. Atypical chest pain. 5. Left arm pain. This note was generated with [employer] dictation software. It may contain incorrect words, spelling, and punctuation that were not noted in review of the chart prior to signing ED Disposition - Plan for ED Patient: Referrals: Bulmaro Nogueira, [Primary Care Provider] -
--- NOTE | 2020-03-28 22:33 | PCM.HP.STD ---
Problem List (1) Hyperglycemia Status: Acute (2) Constipation Status: Chronic (3) Bipolar disorder Status: Chronic (4) Acute hyperglycemia Status: Acute (5) GERD (gastroesophageal reflux disease) Status: Chronic (6) Uncontrolled type 2 diabetes mellitus Status: Chronic (7) Benign essential hypertension Status: Chronic (8) Hyperlipidemia Status: Chronic Qualifiers: (9) Coronary artery disease Status: Chronic Comment: ORMEL LAD 01/21 (10) COPD (chronic obstructive pulmonary disease) Status: Chronic Comment: cont smoking (11) Tobacco abuse Status: Chronic History of Present Illness Date of Admission: 03/28/20 Chief Complaint: Elevated blood glucose The patient is a 64 year old F with a significant history of diabetes mellitus; heart valve replacement; bipolar disorder who presents at emergency department with elevated blood glucose. Reportedly his blood glucose at home read high. Also patient reports that on the day of presentation he fell 2 times at home. He attributes the fall to losing his balance. Emergency Department doctor reported that patient nearly fell while in the emergency department room. T Past Medical History Past Medical History (Chronic Problems): Chronic Problems Constipation (Chronic) Bipolar disorder (Chronic) GERD (gastroesophageal reflux disease) (Chronic) Uncontrolled type 2 diabetes mellitus (Chronic) Benign essential hypertension (Chronic) Hyperlipidemia (Chronic) Coronary artery disease (Chronic) ROMEL LAD 01/21 COPD (chronic obstructive pulmonary disease) (Chronic) cont smoking Tobacco abuse (Chronic) Allergies Penicillins Allergy (Verified 03/28/20 19:33) Hives hydrocodone bitartrate [From Vicodin] Adverse Reaction (Verified 03/28/20 19:33) Vomiting ibuprofen Adverse Reaction (Verified 03/28/20 19:33) Vomiting Home Medications: Ambulatory Orders Medication Instructions Recorded Aspirin [Adult Low Dose Aspirin EC] 81 mg PO DAILY 02/04/16 Metoprolol Tartrate [Lopressor 25 mg PO BID 06/23/17 (beta elder)] Nitroglycerin (INPATIENT USE) 0.4 mg SUBLINGUAL Q5M PRN 09/28/17 [Nitrostat] Furosemide [Lasix] 40 mg PO DAILY 11/17/18 Lisinopril 5 mg PO DAILY 11/17/18 Metformin HCl 1,000 mg PO BID 11/17/18 Insulin Glargine,Hum.rec.anlog 48 unit SQ BREAKFAST 05/16/19 [Tiesha Richter U-100] Cholecalciferol (Vitamin D3) 5,000 units PO DAILY 10/30/19 [Vitamin D3] Clopidogrel Bisulfate [Clopidogrel] 75 mg PO DAILY 10/30/19 Glimepiride [Amaryl] 4 mg PO DAILY 10/30/19 Omeprazole 40 mg PO DAILY PRN PRN 12/05/19 traZODone [Desyrel] 50 mg PO QHS 03/07/20 Surgical History: angioplasty, appendectomy, cholecystectomy, hysterectomy 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 Smoking Status: Former smoker - *Family History Maternal History Items: Cancer - Uterine cancer, Diabetes, Heart Disease Paternal History Items: Heart Disease Sibling History Items: Diabetes, Heart Disease, Hypertension Review of Systems Constitutional: Denies: Chills, Fever, Weight Change HEENT: Denies: Head Aches, Sinus Congestion, Sinus Drainage Cardiovascular: Denies: Chest Pain, Palpitations Respiratory: Denies: Cough, Shortness of breath at rest, Sputum production Gastrointestinal: Denies: Abdominal Pain, Nausea, Vomiting Genitourinary: Denies: Dysuria Musculoskeletal: Reports: Arm Pain. Denies: Joint Pain, Joint Tenderness Skin: Denies: Rash, Wounds Neurological: Reports: Balance problems. Denies: Focal weakness, Numbness, Tingling Psychiatric: Denies: Anxiety, Depression, Homicidal Ideations, Suicidal Ideations Hematologic/ Lymphatic: Denies: Easy Bruising, Easy Bleeding VTE Information - Inpt Only VTE Present on Admission: No VTE Mechan Device Prophylaxis: None VTE Pharm Prophylaxis ordered?: Yes - Physical Exam Vitals/I&O's: Vital Signs Temp Pulse Resp BP Pulse Ox 97.5 F L 94 18 153/73 H 96 03/28/20 21:43 03/28/20 21:43 03/28/20 21:43 03/28/20 21:43 03/28/20 21:43 Oxygen Delivery Method Room Air Weight: 70.4 kg Body Mass Index (BMI) 27.5 Finger Stick Blood Glucose 128 Intake and Output for Last 24 Hours 03/26/20 03/27/20 03/28/20 23:59 23:59 23:59 Intake Total 1000 / 1000 Balance 1000 / 1000 General: Alert, Oriented x3, Cooperative HEENT: Atraumatic, PERRLA, EOMI, Normocephalic Neck: Supple, No JVD, Negative Carotid Bruits Lungs: Clear to auscultation, Normal air movement, No rhonchi, No wheeze, No rales Cardiovascular: Regular rate, Normal S1, Normal S2, No murmurs Abdomen: Bowel Sounds Present, Soft, Non Tender Extremities: No edema, Capillary Refill Less than 3 Seconds Skin: No rashes, No breakdown Musculoskeletal: No Tenderness to Palpation of Joints or Extremities Neurological: Cranial nerves II-XII grossly intact Psych/Mental Status: Normal Affect, Appropriate Laboratory Results 03/28/20 19:28: POC Glucose > 500 H* 03/28/20 19:39: WBC 4.9, RBC 4.03 L, Hgb 12.4, Hct 37.6, MCV 93.3, MCH 30.8, MCHC 33.0, RDW Std Deviation 44.1 H, RDW Coeff of [place] 12.8, Plt Count 204, MPV 11.4, Immature Gran % (Auto) 1.200 H, Neut % (Auto) 50.6, Lymph % (Auto) 34.2, Swisher % (Auto) 10.1 H, Eos % (Auto) 3.1, Baso % (Auto) 0.8, Absolute Neuts (auto) 2.5, Absolute Lymphs (auto) 1.66, Nucleated RBC % 0 03/28/20 19:39: Sodium 130 L, Potassium 4.1, Chloride 94 L, Carbon Dioxide 23.0, Anion Gap 13, BUN 13, Creatinine 1.49 H, Estim Creat Clear Calc 30.72, Est GFR (MDRD) Af Amer 45 L, Est GFR (MDRD) Non-Af 37 L, BUN/Creatinine Ratio 8.7 L, Glucose 867 H*, Calcium 9.0, Phosphorus 3.0, Magnesium 1.9, Troponin I < 0.015 03/28/20 19:39: Acetone Level NEGATIVE 03/28/20 19:39: Hemoglobin A1c 12.8 H 03/28/20 21:30: Urine Color Yellow, Urine Clarity Clear, Urine pH 5.0, Ur Specific [place] 1.010, Urine Protein Negative, Urine Glucose (UA) 1000 H, Urine Ketones Negative, Urine Occult Blood Negative, Urine Nitrite Negative, Urine Bilirubin Negative, Urine Urobilinogen Normal, Ur Leukocyte Esterase 25 H, Urine RBC 0 SEEN, Urine WBC 0-5 SEEN, Ur Squamous Epith Cells 0 SEEN, Urine Bacteria 0 SEEN, Urine Mucus 0 SEEN 03/28/20 21:33: POC Glucose > 500 H* Assessment/Plan All Active Problems Hyperglycemia (Acute) Acute hyperglycemia (Acute) Chest pain (Resolved) VTE (venous thromboembolism) (Resolved) The patient is a 64 year old F with a significant history of diabetes mellitus; heart valve replacement; bipolar disorder who presents at emergency department with elevated blood glucose; and multiple falls. Diabetes mellitus with hyperglycemia Blood glucose at emergency department was 867. Initially discussed with emergent department doctor to start insulin drip. However while patient was at the emergency department and after receiving normal saline boluses her blood glucose decrease into the 500s. So patient was not started on insulin drip. Patient will be admitted to the progressive care unit and placed on Accu-Chek every 4 hours with correction scale insulin. Will resume home long-acting insulin. Hold home metformin. Continue Amaryl Start half normal saline with 20meq potassium at 100ml/hr for 1 liter. Hold home Lasix for now. SEA Presentation creatinine was 1.49. Likely BUN was 13. BUN over creatinine is 8.7. IV hydration as above. After IV hydration repeat creatinine has improved. However will still hold lisinopril for now. Avoid nephrotoxins. Multiple Falls and Disquilibrium Etiology unclear. Get vitamin B12 and vitamin D. Get an echocardiogram. Check orthostatic vitals. Right arm pain Patient complains of right arm pain for which he is receiving outpatient care. Likely secondary to muscle strain/sprain. Tylenol PRN. Warm compress to right arm as needed. DVT prophylaxis Subcutaneous Lovenox. Inpatient E&M: 20505 Init Hosp L3
[2020-03-28 22:43] VITALS: BP 179/90; PULSE 95; RESP 16; TEMP 36.9; O2SAT 97
[2020-03-28 23:17] LABS: Osmolality, Serum 315 mOsm/KG (280-301)
[2020-03-28 23:18] VITALS: BP 152/87; PULSE 98; RESP 16; TEMP 36.8; O2SAT 97
[2020-03-28 23:26] LABS: Bedside Glucose > 500 mg/dL (70-110)
[2020-03-29] VITALS (9 sets, daily range): BP systolic 83–147; BP diastolic 59–79; PULSE 85–105; RESP 17–18; TEMP 36.7–37; O2SAT 96–97; BMI 25.8; BMI 25.9
--- NOTE | 2020-03-29 00:27 | ECHOD_ITS ---
Reason For Study: MULTIPLE FALLS, DIZZINESS, AVR Procedure This was a 2D Doppler, Color Flow transthoracic echocardiogram. Exam performed portable in patient room. Left Ventricle Normal LV size. Left ventricular systolic function is normal. The estimated ejection fraction is 60 %. Right Ventricle Normal RV size. Normal systolic function. Atria Normal left atrium. The right atrium is mildly enlarged. Mitral Valve There is mild to moderate mitral annular calcification. Mild (1+) mitral valve insufficiency. Tricuspid Valve Mild tricuspid valve insufficiency. Pulmonary artery systolic pressure is 30 mmHg. Aortic Valve Presence of normal bioprosthetic AV valve with mean gradient of 13 mm. No aortic valve insufficiency. Pulmonic Valve Normal pulmonic valve. Great Vessels Normal inferior vena cava. MMode/2D Measurements & Calculations LVIDd: 4.1 cm IVSd: 0.95 cm LVOT diam: 2.0 cm LVIDs: 2.8 cm LVPWd: 0.92 cm LVOT area: 3.1 cm2 RVDd: 3.3 cm FS: 31.4 % Ao root diam: 2.9 cm LAV(MOD-bp): 43.1 ml LA A4 area: 16.1 cm2 LAV(MOD-bp) Indexed: 25.6 ml/m2 LAV(MOD-sp2): 42.1 ml LAV(MOD-sp4): 42.1 ml LA dimension(2D): 3.7 cm RA A4 area: 14.0 cm2 Time Measurements MV dec time: 0.23 sec Doppler Measurements & Calculations MV E max chris: 106.1 cm/sec Lat Peak E' Chris: 9.4 cm/sec Med Peak E' Chris: 6.6 cm/sec MV A max chris: 91.0 cm/sec E/E' lat: 11.3 E/E' med: 16.0 MV E/A: 1.2 Ao V2 max: 263.8 cm/sec LV V1 max: 153.5 cm/sec SV(LVOT): 98.6 ml Ao max P.8 mmHg LV V1 max P.4 mmHg Ao V2 mean: 167.3 cm/sec LV V1 mean P.7 mmHg Ao mean P.0 mmHg LV V1 mean: 113.9 cm/sec Ao V2 VTI: 48.2 cm LV V1 VTI: 31.7 cm ABEL(I,D): 2.0 cm2 ABEL(V,D): 1.8 cm2 PA V2 max: 97.2 cm/sec TR max chris: 251.1 cm/sec TR max P.3 mmHg Interpretation Summary Pulmonary artery systolic pressure is 30 mmHg. The estimated ejection fraction is 60 %. Left ventricular systolic function is normal. The right atrium is mildly enlarged. Mild (1+) mitral valve insufficiency. Mild tricuspid valve insufficiency. Presence of normal bioprosthetic AV valve with mean gradient of 13 mm Ordering Physician: Harsh Alexis Referring Physician: Bulmaro Nogueira Performed By: Alondra Valenzuela RDCS, RVT
[2020-03-29] MEDS: 0.9% Saline Lock 10 ML Syringe IV ×2 (01:18→01:34)
[2020-03-29 01:26] LABS: Bedside Glucose > 500 mg/dL (70-110)
[2020-03-29] MEDS: Ondansetron 4 MG/2 ML Vial IV (01:34)
[2020-03-29] MEDS: Acetaminophen 325 MG Tablet 650 MG PO (01:36)
--- NOTE | 2020-03-29 02:06 | NURSING ---
Lab was unsuccessful in stat glucose back up draw. 2nd roofing laborer to come draw pt. this RN to given x1 Humalog 20 units when lab specimen is collected. Karen SOMERS
[2020-03-29] MEDS: Insulin Lispro 100 UNIT/ML INSULN.PEN 20 UNIT SC (02:29)
[2020-03-29 02:56] LABS: Glucose 444 mg/dL (74-106)
[2020-03-29 03:39] LABS: Anion Gap 5 (5-15); BUN 8 mg/dL (7-18); BUN/Creat Ratio 9.6 RATIO (10-20); Calcium,Total 8.6 mg/dL (8.5-10.1); Chloride 106 mmol/L (98-107); Creatinine, Serum 0.84 mg/dL (0.55-1.02); EST Glomerular Filtration Rate 73 mL/min (>60); Est Glom Filt Rate - Afr Amer 88 mL/min (>60); Potassium 4.1 mmol/L (3.5-5.1); Sodium Level 134 mmol/L (136-145)
[2020-03-29 05:36] LABS: Bedside Glucose 86 mg/dL (70-110)
[2020-03-29 06:11] LABS: Bedside Glucose 67 mg/dL (70-110)
[2020-03-29 06:46] LABS: Bedside Glucose 130 mg/dL (70-110)
[2020-03-29] MEDS: Enoxaparin 40 MG/0.4 ML Syringe SC (09:09)
[2020-03-29] MEDS: Metoprolol Tartrate 25 MG Tablet PO (09:09)
[2020-03-29] MEDS: Clopidogrel Bisulfate 75 MG Tablet PO (09:09)
[2020-03-29] MEDS: Aspirin E.C. 81 MG Tablet PO (09:09)
[2020-03-29] MEDS: Insulin Lispro 100 UNIT/ML INSULN.PEN SC (11:31)
[2020-03-29 11:41] LABS: Bedside Glucose 270 mg/dL (70-110)
--- NOTE | 2020-03-29 14:30 | DCINST_ITS ---
You will use the following diet at home:: Calorie/Carbohydrate Controlled (specify 1200, 1400, etc) - 1800 mounika Your food should be the consistency of: Regular Your liquids should be the consistency of: Regular/Thin Discharge Activity: Return to Normal Activity Weight Bearing Status: Full weight bearing Allergies/Adverse Reactions: Allergies Penicillins Allergy (Verified 03/28/20 19:33) Hives hydrocodone bitartrate [From Vicodin] Adverse Reaction (Verified 03/28/20 19:33) Vomiting ibuprofen Adverse Reaction (Verified 03/28/20 19:33) Vomiting Medications to take at Discharge Aspirin [Adult Low Dose Aspirin EC] 81 mg PO DAILY 02/04/16 Metoprolol Tartrate [Lopressor (beta elder)] 25 mg PO BID 06/23/17 Nitroglycerin (INPATIENT USE) [Nitrostat] 0.4 mg SUBLINGUAL Q5M PRN 09/28/17 Furosemide [Lasix] 40 mg PO DAILY 11/17/18 Lisinopril 5 mg PO DAILY 11/17/18 Metformin HCl 1,000 mg PO BID 11/17/18 Cholecalciferol (Vitamin D3) [Vitamin D3] 5,000 units PO DAILY 10/30/19 Clopidogrel Bisulfate [Clopidogrel] 75 mg PO DAILY 10/30/19 Glimepiride [Amaryl] 4 mg PO DAILY 10/30/19 Omeprazole 40 mg PO DAILY PRN PRN 12/05/19 traZODone [Desyrel] 50 mg PO QHS 03/07/20 Insulin Glargine [Lantus SoloStar Pen] 52 units SC BREAKFAST #1 pen 03/29/20 The following prescriptions were given: Insulin Glargine [Lantus SoloStar Pen] 52 units SC BREAKFAST #1 pen Primary Care Physician: Bulmaro Nogueira DO [Primary Care Provider] - Please follow up with your Primary Care Physician in: in 7-10 days Test Results: Test results from this visit will be discussed in further detail at your follow- up appointment, if applicable.
--- NOTE | 2020-03-29 14:31 | CASEMGMT ---
LIZBET MONDRAGON assessment: Face to Face with patient for initial transition planning/care coordination assessment. LIZBET MONDRAGON introduced self and role at [facility], pt voices understanding and consents to assessment at this time. Pt is sitting up in bed in no distress at this time. Pt is A/Ox4 at this time and answers all questions appropriately at this time. Care providers, pharmacy, and demographics verified at this time. 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 Pt's sister, Cindy Barr, is HPOA. LNOK: Cindy Barr, sister/HPOA; Dayron Mary, Living Arrangements: Pt states lives in mobile home with 4 steps in and states no concerns at home at this time. Pt states is independent with ADL's. Transportation: Pt states [id number] drives her and her and states no transportation concerns at this time. DME/HHC: Pt states has the following DME: walker and shower stool. Pt states no need for any further DME at this time. Pt states has had [facility] HHC in the past but has not been to SNF in the past. Pt given information for meals on wheels per request. Pt states no concerns with going home at time of discharge. Pt states is retired. Pt states does not smoke or drink ETOH. Pt states no further concerns/needs at this time. CM to follow for any further discharge planning/needs. Advised pt to ask for CM if any further questions/concerns/needs arise, voices understanding. Pt Goal: Home Plan[place] LIZBET MONDRAGON
--- NOTE | 2020-03-30 16:37 | PCM.DC.SUM ---
Discharge Date and Diagnosis Date of Admission: 03/28/20 Date of Discharge: 03/29/20 - Primary Discharge Diagnosis Acute Problems: #1 uncontrolled type 2 diabetes #2 acute kidney injury secondary to dehydration #3 hyponatremia #4 coronary artery disease - Secondary Discharge Diagnosis Chronic Problems: Chronic Problems Constipation (Chronic) Bipolar disorder (Chronic) GERD (gastroesophageal reflux disease) (Chronic) Uncontrolled type 2 diabetes mellitus (Chronic) Benign essential hypertension (Chronic) Hyperlipidemia (Chronic) Coronary artery disease (Chronic) ROMEL LAD 01/21 COPD (chronic obstructive pulmonary disease) (Chronic) cont smoking Tobacco abuse (Chronic) Hospital Course and Treatment Operations: None Procedures: None Summary of Care Provided: The patient is a 64 year old F was seen in the emergency room at [facility] with a chief complaint of high blood sugar on her glucometer, patient states that she had been lightheaded. Patient maintained that she had blood sugars in the 120s for several days prior to seeing her high readings. Work-up in the emergency room was notable for sodium of 130, glucose was 867, creatinine was 1.49, serum ketones were negative. Hemoglobin A1c was elevated at 12.8, UA was unremarkable. Patient was admitted to PCU, placed on IV fluids, given insulin, and her blood sugars improved. Patient was seen by PT and OT and was able to ambulate without any assistance-she was felt by this examiner not to require any physical therapy. Patient's blood sugars improved rapidly and patient requested discharge home with medication adjustment. This was not expected at the time of her admission. On 03/29/2020, patient was seen and examined: On examination she appeared in good health and spirits, she does not appear to be in any distress. Vital signs as documented. Skin warm and dry and without overt rashes. Neck without JVD, thyroid appears normal, trachea is midline, neck is supple. Lungs clear, normal air movement was noted. Heart exam notable for regular rhythm, normal sounds and absence of murmurs, rubs or gallops. Abdomen unremarkable and without evidence of organomegaly, masses, or abdominal aortic enlargement, bowel sounds are present in all 4 quadrants, no abdominal tenderness was noted. Extremities nonedematous, no cyanosis was noted, no clubbing was noted. Neuro: Cranial nerves II through XII are grossly intact, no focal motor deficits were noted, sensation to light touch and pinprick is intact, motor exam 5/5 throughout. Psych: Patient is alert and oriented x3, she does not appear anxious or depressed, she does not appear agitated. Patient appeared stable for discharge on 03/29/2020, this examiner suspects that the patient's blood sugars are elevated at home, patient stated that she got a new monitor and her blood sugars have been good but this examiner feels that this is not the case. Patient was instructed to follow-up with her family practitioner. - Physical Exam Vitals/I&O's: Vital Signs Temp Pulse Resp BP Pulse Ox 98.6 F 90 18 116/63 96 03/29/20 09:08 03/29/20 09:09 03/29/20 09:08 03/29/20 09:08 03/29/20 09:08 Oxygen Delivery Method Room Air Weight: 66.2 kg Body Mass Index (BMI) 25.8 Finger Stick Blood Glucose 597 Orthostatic Vital Signs Start: 03/29/20 05:34 Freq: q24h Status: Active Protocol: Activity Type Activity Date Activity User E-Sign Co-Sign Detail Recorded Client Recorded Date Recorded By Document 03/29/20 05:34 [facility] [id number] 03/29/20 05:35 [facility] 03/29/20 05:34 Orthostatic Vitals Standing -Blood Pressure (90/60-120/80) 83/59 L -Extremity Use Left Arm -Pulse Rate (60-100) 96 Sitting -Blood Pressure (90/60-120/80) 98/65 -Extremity Use Left Arm -Pulse Rate (60-100) 95 Lying -Blood Pressure (90/60-120/80) 125/71 H -Extremity Use Left Arm -Pulse Rate (60-100) 91 Intake and Output for Last 24 Hours 03/28/20 03/29/20 03/30/20 23:59 23:59 23:59 Intake Total 1999 1956.67 / 1956.67 Output Total 1550 / 1550 Balance 1999 406.67 / 406.67 Discharge Activity: Return to Normal Activity Weight Bearing Status: Full weight bearing Home Medications: Medications to take at Discharge Aspirin [Adult Low Dose Aspirin EC] 81 mg PO DAILY 02/04/16 Metoprolol Tartrate [Lopressor (beta elder)] 25 mg PO BID 06/23/17 Nitroglycerin (INPATIENT USE) [Nitrostat] 0.4 mg SUBLINGUAL Q5M PRN 09/28/17 Furosemide [Lasix] 40 mg PO DAILY 11/17/18 Lisinopril 5 mg PO DAILY 11/17/18 Metformin HCl 1,000 mg PO BID 11/17/18 Cholecalciferol (Vitamin D3) [Vitamin D3] 5,000 units PO DAILY 10/30/19 Clopidogrel Bisulfate [Clopidogrel] 75 mg PO DAILY 10/30/19 Glimepiride [Amaryl] 4 mg PO DAILY 10/30/19 Omeprazole 40 mg PO DAILY PRN PRN 12/05/19 traZODone [Desyrel] 50 mg PO QHS 03/07/20 Insulin Glargine [Lantus SoloStar Pen] 52 units SUBCUT BREAKFAST #1 pen 03/29/20 Following Prescrptions Were Given to Patient: Insulin Glargine [Lantus SoloStar Pen] 52 units SUBCUT BREAKFAST #1 pen Primary Care Physician: Bulmaro Nogueira DO [Primary Care Provider] - Please follow up with your Primary Care Physician in: in 7-10 days Disposition: Home Minutes spent on discharge:: 31 Patient Condition:: Stable Medical Necessity - Tobacco Use Smoking Status: Former smoker Meaningful Use Info Meaningful Use Diagnoses (Choose all that apply): None applicable Inpatient E&M: 71084 Disch Hosp
[2020-03-31 08:41] LABS: Vitamin B12 360 pg/mL (211-911); Vitamin D,25 Hydroxy 44.6 ng/mL
--- NOTE | 2020-03-31 14:51 | CASEMGMT ---
LIZBET CM DC PHONE CALL DC DATE: 03/29/2020 DC DISPOSITION: Home DC DIAGNOSIS: Diabetes, SEA LACE/STRATA: 20/12 F/U APPTS MADE PRIOR TO DC: no. weekend dc Attempted to call pt. No answer and no message machine. Annie ADRIANN RN AC
--- NOTE | 2020-03-31 14:59 | CASEMGMT ---
Addendum entered by Dang Manriquez 04/03/20 13:06: This RN CM received a call back from pt stating that her glucometer is reading 'hi' and that she is 'tired all the time.' This RN CM asked pt how appt when with Dr. Nogueira on 04/01/2020 and pt states that she had to end up cancelling appt d/t not having a ride. Pt does not go back to Dr. Nogueira until 04/07/2020. Pt states she doesn't know what to do. Pt states she has been taking meds as ordered. Pt states that she no longer sees an certified activities director. This RN CM advised pt to return to [facility] ED at this time, voices understanding. Pt states she has difficulty getting through to Dr. Nogueira's office, her PCP. This RN CM also advised pt that she should consider getting a referral to an certified activities director to better manage her diabetes and pt is agreeable at this time. Pt voices no further questions/concerns/needs at this time and thanks this RN CM at this time. Aleshia, ED SW, updated on pt at this time, voices understanding. [facility] RN CM Original Note: This RN CM received call back from pt at this time in response to f/u call attempted by Annie SOMERS CM at 1451. Pt states has not been doing too well since discharge as she has been unsteady on her feet at home and she states she feels weak and has dropped some things. {t is A/Ox4 at this time and answers all questions appropriately at this time. Pt's speech is clear and pt advised to check her blood sugar while on the phone with this RN CM. Pt states that her blood sugar is 399 at this time and states that she has taken all her meds per order today. Pt states that she has been trying to get ahold of Dr. Nogueira's office for f/u appt without success today. This RN CM offers to call Dr. Nogueira's office for pt at this time to attempt and schedule f/u and speak with RN, if able and pt is agreeable. Pt does not feel that she needs to come back to [facility] ED at this time but states she just 'doesn't feel great.' Call to Dr. Nogueira's office and message left with his nurse and then f/u appt made for pt 04/01/2020 at 1400 and they are requesting records sent to them at this time as they have not yet received any. Dr. Naylor updated on pt's sugar and f/u appt at this time and states to have pt take 10units of lantus subq at this time and take 65units of lantus subq in the am instead of the 52 units she normally takes. Call back to pt with Dr. Naylor present and pt updated on all at this time, voices understanding. Pt states she will f/u tomorrow with Dr. Nogueira and take updated insulin as ordered at this time. Pt is A/Ox4 at this time. Pt verbally agrees for this RN CM to fax d/c summ/instructions to Dr. Holman office at [phone] at this time so that he will have her information for her appt tomorrow. Pt advised to return to [facility] ED for any worsening of symptoms, pt voices understanding at this time and thanks this LIZBET MONDRAGON at this time. Pt voices no further questions/concerns/needs at this time. SStaten LIZBET CM
== END 2020-03-29 15:15 | disposition home or self-care (01) | DRG 638 ==
LOC: ED 19:56 → PCU 03-29 00:45
PROVIDERS: Admitting Provider Hospitalist; Emergency Provider Emergency Medicine; PCP Family Medicine; Visit Provider Internal Medicine
DX: E11.65 Type 2 diabetes mellitus with hyperglycemia (principal); N17.9 Acute kidney failure, unspecified; E87.1 Hypo-osmolality and hyponatremia; E86.0 Dehydration; I25.10 Atherosclerotic heart disease of native coronary artery without angina pectoris; R29.6 Repeated falls; R07.89 Other chest pain; M79.602 Pain in left arm; K21.9 Gastro-esophageal reflux disease without esophagitis; E78.5 Hyperlipidemia, unspecified; I10 Essential (primary) hypertension; J44.9 Chronic obstructive pulmonary disease, unspecified; M79.601 Pain in right arm; Z95.2 Presence of prosthetic heart valve; Z87.891 Personal history of nicotine dependence
CPT/HCPCS: 70450; 71045; 73060; 80048; 81001; 82009; 82306; 82607; 82962; 83036; 83735; 83930; 84100; 84484; 85025; 93005; 93306; 97162; 97166; 97802; 99285; J7030; P9612; A4216; J2405

== ENCOUNTER 2020-04-03 15:56 | Emergency (ER) | payer MEDICARE, SELFPAY ==
[2017-03-16 08:30] VITALS: BMI 29.2
[2020-03-29 00:29] VITALS: BMI 25.8
[2020-04-03 15:57] VITALS: BP 158/85; PULSE 103; RESP 18; TEMP 36.6; O2SAT 98; BMI 25.7
--- NOTE | 2020-04-03 16:22 | EKG12_ITS ---
Test Reason : HYPERGLYCEMIA Blood Pressure : / mmHG Vent. Rate : 099 BPM Atrial Rate : 099 BPM P-R Int : 148 ms QRS Dur : 082 ms QT Int : 388 ms P-R-T Axes : 045 019 045 degrees QTc Int : 497 ms Normal sinus rhythm Prolonged QT Abnormal ECG Confirmed by HENRY BARFIELD, DAYANA ([id number]), acquisition editor TAQUERIA CHAMBERLAIN ([id number]) on 04/08/2020 11:11:41 AM Referred By: CHICA Confirmed By:DAYANA FIGUEROA MD
[2020-04-03 16:41] LABS: Bedside Glucose > 500 mg/dL (70-110)
[2020-04-03 16:43] LABS: Absolute Lymphocyte Count 1.88 X10^3/uL (0.83-4.51); Basophil# 0.05 X10^3/uL; Basophil% 0.8 % (0-1); Eosinophil# 0.22 X10^3/uL; Eosinophils% 3.7 % (0-5); Hematocrit 38.3 % (37-47); Hemoglobin 12.8 g/dL (12.0-15.0); Lymphocyte # 1.88 X10^3/ul (4.0); Lymphocyte % 31.6 % (19-41); Mean Corp Hgb Conc 33.4 g/dL (32-36); Mean Corpuscular Volume 92.7 fL (81-99); Mean Platelet Vol. 10.9 fl (6.2-12.0); Monocyte# 0.68 X10^3/uL; Monocyte% 11.4 % (0-10); NRBC Flagged by Analyzer 0 % (0-5); Neutrophil # 3.04 X10^3/uL (2.7-7.7); Neutrophil % 51.3 % (47-70); Platelet Count 240 K/mm3 (150-450); RBC Distribution Width CV 12.9 % (11.6-14.6); RBC Distribution Width SD 43.5 fl (35.1-43.9); Red Blood Count 4.13 M/mm3 (4.2-5.4); White Blood Count 5.9 K/mm3 (4.4-11.0)
[2020-04-03 16:50] VITALS: RESP 16
[2020-04-03] MEDS: 0.9% Normal Saline 1,000 ML 999 ML IV ×2 (16:56→18:00)
--- NOTE | 2020-04-03 17:05 | RAD_ITS ---
STUDY: X-RAY CHEST REASON FOR EXAM: Female, 64 years old. CHEST PAIN, HYPERGLYCEMIA TECHNIQUE: 1 view COMPARISON: Prior chest radiograph of March 28, 2020 FINDINGS: The lungs are clear and expanded. There is no demonstrated pleural abnormality. Normal size heart. Status post prior midline sternotomy. Left coronary stent visible. Status post aortic valve replacement. Normal visualized pulmonary arteries. Normal visualized aortic arch and descending thoracic aorta. Normal visualized thoracic spine. Normal visualized ribs, clavicles, and shoulders. There is no demonstrated abnormality of the visualized soft tissue structures of the upper abdomen. RAD/Chest 1 View (Portable) IMPRESSION: No acute cardiopulmonary findings or changes. Negative for new consolidation, focal atelectasis or pleural effusion. Status post prior midline sternotomy, aortic valve replacement and coronary stent placement. Electronically Signed: Vero Stauffer MD at 17:17 EDT , Service support ,
[2020-04-03] MEDS: metFORMIN HCl 1,000 MG Tablet 1000 MG PO (17:23)
[2020-04-03 17:25] LABS: Anion Gap 11 (5-15); BUN 14 mg/dL (7-18); BUN/Creat Ratio 11.3 RATIO (10-20); Chloride 91 mmol/L (98-107); Creatinine, Serum 1.24 mg/dL (0.55-1.02); EST Glomerular Filtration Rate 46 mL/min (>60); Est Glom Filt Rate - Afr Amer 56 mL/min (>60); Estimated Creatinine Clearance 36.92 ml/min; Glucose 706 mg/dL (74-106); Potassium 4.5 mmol/L (3.5-5.1); Sodium Level 127 mmol/L (136-145)
[2020-04-03] MEDS: Acetaminophen 500 MG Tablet 1000 MG PO (17:35)
[2020-04-03] MEDS: Insulin Lispro 100 UNIT/ML INSULN.PEN 14 UNIT SC (18:00)
[2020-04-03 18:03] VITALS: BP 152/77; PULSE 91; RESP 18; O2SAT 98
[2020-04-03 18:11] LABS: Bedside Glucose > 500 mg/dL (70-110)
--- NOTE | 2020-04-03 19:24 | ED.DCSUM_ITS ---
- ER Visit Summary Date of Service: 04/03/20 Chief Complaint: Blood sugar high History of Present Illness: The patient is a 64 F who sees Connor Nogueira. She has an appointment in 3 days. She was admitted to the hospital on March 28 for hyperglycemia. She reports that she was discharged on 65 units of Lantus in the morning and thousand milligrams of metformin in the morning. She reports that she has taken these today. States that her yesterday her blood sugar was 128 and today it is so high that her meter would not read it. Patient has a history of what I believe was an aortic valve replacement approximately 2 months ago and reports that my scar hurts. States that the pain is a sharp pain is 9-10 severity. Is increased with touching it. She states is unchanged with exertion. Physical Examination: Vitals: Stable. Afebrile. General: Well-nourished and well-developed. Head: Normocephalic atraumatic. Neck: Supple, no lymphadenopathy. No JVD. Nontender. Cardiovascular: Regular rate and rhythm. No murmurs. Sternotomy incision is well-healed. There is no erythema, warmth, induration or fluctuance. It is moderately tender to palpation. There is no click. Respiratory: No respiratory distress. Clear to auscultation bilaterally. Abdominal: Soft, nontender, nondistended, normal bowel sounds. No guarding, rebound, or peritoneal signs. Back: Nontender. Extremities: Nontender, no edema. Skin: Normal color, no rash. Neurologic: Alert and oriented ?3. Cranial nerves II through XII are intact. Normal strength and sensation. Psych: Normal affect. Test Results: EKG is sinus at 99 with a QTC of 497. This is unchanged from earlier this month. At that time her QTC was 47. CBC shows monocytes of 11. Chem-7 shows a sodium of 127 (137 uncorrected for her sugar of 706) chloride is 91. Creatinine is 1.24. Of note her bicarb is 25 and her anion gap is 11. Troponin is negative. Emergency Department Course and Treatment: Review of the chart shows that the patient actually is supposed to be on 52 units of Lantus in the morning and at thousand milligrams of metformin twice daily. She was given her evening dose of metformin here. She was also given 14 units insulin subcu. repeat Accu-Chek an hour and a half later is in the 270s. Treatment Plan: I have instructed the patient on the importance of taking her medications as directed. She is instructed to increase her Metformin to twice daily. Feel the patient would benefit from diabetic teaching. She is instructed to follow-up with Dr. Mike as soon as possible. Follow-up with her primary care physician in 3 days as previously scheduled. Return to the emergency department for any worsening symptoms. Disposition: To home in improved and stable condition. Impression: 1. Hyperglycemia. 2. Type 2 diabetes mellitus with medication noncompliance. 3. Atypical chest pain. This note was generated with [employer] dictation software. It may contain incorrect words, spelling, and punctuation that were not noted in review of the chart prior to signing ED Disposition - Plan for ED Patient: Instructions: ED Diabetic Hyperglycemia Referrals: Jamie Mike MD [STAFF PHYSICIAN] - As soon as possible Bulmaro Nogueira DO [Primary Care Provider] - Keep Edgar appointment
[2020-04-03 19:41] LABS: Bedside Glucose 279 mg/dL (70-110)
[2020-04-03 20:00] VITALS: BP 149/90; PULSE 91; RESP 18; O2SAT 95
== END 2020-04-03 20:01 | disposition home or self-care (01) ==
LOC: ED 17:08
PROVIDERS: Emergency Provider Emergency Medicine; PCP Family Medicine
DX: E11.65 Type 2 diabetes mellitus with hyperglycemia (principal); Z91.14 Patient's other noncompliance with medication regimen; R07.89 Other chest pain; R19.7 Diarrhea, unspecified; I25.10 Atherosclerotic heart disease of native coronary artery without angina pectoris; J44.9 Chronic obstructive pulmonary disease, unspecified; K21.9 Gastro-esophageal reflux disease without esophagitis; I10 Essential (primary) hypertension; F31.9 Bipolar disorder, unspecified; E78.00 Pure hypercholesterolemia, unspecified; Z86.73 Personal history of transient ischemic attack (TIA), and cerebral infarction without residual deficits; Z95.2 Presence of prosthetic heart valve; Z79.4 Long term (current) use of insulin; Z79.82 Long term (current) use of aspirin; Z79.02 Long term (current) use of antithrombotics/antiplatelets; Z79.84 Long term (current) use of oral hypoglycemic drugs; Z79.899 Other long term (current) drug therapy
CPT/HCPCS: 71045; 80048; 82962; 84484; 85025; 93005; 96360; 96361; 96372; 99285; J7030; A4216

== ENCOUNTER 2020-05-05 13:30 | Outpatient (RCR) | payer MEDICARE, SELFPAY ==
[2017-03-16 08:30] VITALS: BMI 29.2
--- NOTE | 2020-04-10 16:02 | HP.PTEVAL_ITS ---
Patient's Visit Information SOFÍA CURTIS is a 64 year old F referred to Physical Therapy by Dr. Bulmaro Nogueira DO with a diagnosis of LEFT ARM PAIN. Date of Evaluation: 04/10/20 Physical Therapist: Raymundo Paredes, PT, Cert MDT, OCS - Visit Plan Frequency: 2x /Week Duration: 4 Weeks Plan: PT INTERVENTIONS PROM,AAROM/AROM,MANULA THERAPY ,RTC/SCAPULAR STRENGTHENING,POSTURAL EX'S,MODALTIES - Subjective This 64 y/o female presnets to physical therapy with left arm pain. Patient recently had CABG on 2 months ago at [facility]. Patient developed left shouldeer pain about 4 months. Location of grossly left shoulder radiates to laeral arm to elbow. Patient symptoms wotrse with lifting with left arm OH affects ADLS ,housework tasks. Pain affects sleeping . Denies parathesia/tingling. Patient was provided with x-rays -. No trauma. No injury ,incidous onset of shoulder pain.Patient pain affects QOL. SOCIAL: single. VOCATION: retired - Pain Left Shoulder Pain Intensity (Out of 10): 9 Pain Intensity Range: 10 - Objective POSTURE: mild foward posture. NEURO:denies parathesia/tingling,reflexes intact. PALAPTION: global tenderness. AROM: shoulder flexio 95 ,abduction in scaption 90 degrees,ER 30 degrres all with pain and muscle guarding. MMT: RTC subscapularis 4-/5,supraspaintous 3+/5,infraspinatous 3+/5 ,deltoid 3-/5 pain. CAPSULAR RESTRICTION: mod limited. CERVICAL ROM: min/mod limited all planes of motion - Special Tests C/S Radiculapathy - Left Upper limb tension test: Negative C/S Radiculapathy - Right Upper limb tension test: Negative C/S Radiculapathy - Left Spurlings: Negative C/S Radiculapathy - Right Spurlings: Negative C/S Radiculapathy - Left Cervical distraction: Negative C/S Radiculapathy - Right Cervical distraction: Negative L Shoulder External Rotation Lag Test - RC Tear: Negative L Shoulder Lift Off Test - Subscapular Tear: Positive L Shoulder Drop Sign - IS Test: Positive L Shoulder Empty Can - SS: Positive L Shoulder Neer - Impingement: Positive L Shoulder Suárez Gunner - Impingement: Positive L Shoulder Shrug Sign - OA/Adhesive Capsulitis: Positive - Goals Goal 1:: Patient to be I with HEP Goal Time Frame: 4-6 Weeks Goal 2:: pateint improve posture for ADLS Goal Time Frame: 4-6 Weeks Goal 3:: Patient to decrease shoulderc pain by 50% > to improve function and ADLS' Goal Time Frame: 4-6 Weeks Goal 4:: Patient increase AROM shoulder flexion/abd 135 degrees and ER/IR WFL to improve function Goal Time Frame: 4-6 Weeks Goal 5:: Pateint increase strength RTC 4-/5 and deltoid 3+/5 to improve function. Goal Time Frame: 4-6 Weeks Goal 6:: Patient improve quick dash by 5 points or > to improve function - Rehabilitation Potential Physical Therapy Diagnosis: Patient has severe pain with poor PROM/AROM with pain,decrease strength with posibble signs of RTC involement tendonitis/injury along with mild adhesive capsulitus ,MMT painfull and guards against movement ,patient has h/O CABG 2 months ago. Rehabilitation Potential: Fair - Anticipated Interventions Patient/Client Instruction: Educate patient on: Condition, Plan of Care For the Purpose of:: To decrease pain, To increase ROM, To improve muscle performance and motor function, To improve ability to perform ADL's, To increase tolerance to activity/condition/position, To improve performance and independence with ADL's, To improve ability of physical actions for home/community/work/leisure, To improve gait and locomotor functions, To improve health of tissue, To decrease soft tissue restriction, To increase flexibility/ROM, To improve safety, To improve health and function, To improve ability to perform tasks related to life management Therapeutic Exercise to Include: Strength training, Postural training, Flexibilty training, Passive ROM, Active ROM, Scapular Strength/Stabilization Comment: RTC For the Purpose of:: To decrease pain, To increase ROM, To improve muscle performance and motor function, To improve ability to perform ADL's, To increase tolerance to activity/condition/position, To improve ability of physical actions for home/community/work/leisure, To improve health of tissue, To decrease soft tissue restriction, To increase flexibility/ROM, To assume or resume ADL's, To reduce risk of recurrence, To improve health and function Manual Therapy Techniques to Include: Mobilization, Passive ROM Comment: G-H For the Purpose of:: To decrease pain, To decrease swelling/inflammation, To in crease ROM, To improve nutrient delivery to tissue, To increase oxygenation perfusion, To improve health of tissue, To decrease soft tissue restriction TENS: Yes IF ES: Yes Cryotherapy (ice pack, ice massage): Yes Thermo therapy (hot pack): Yes Ultrasound (thermal/non thermal): Yes For the Purpose of:: To decrease pain, To increase ROM, To improve nutrient delivery to tissue, To increase oxygenation perfusion, To decrease soft tissue restriction, To increase flexibility/ROM Thank you for the opportunity to evaluate your patient. For Medicare and Medicare HMO plans, please review the plan of care and approve it. It will need to be FAXED BACK to us at [phone] for Medicare purposes. For Medicare only, by signing this I certify the plan of care. Please let me know if there are questions or concerns regarding this plan of care. Physician Signature: Date:
== END 2020-05-05 19:00 | disposition home or self-care (01) ==
LOC: PT 13:30
PROVIDERS: Referring Provider Family Medicine; Visit Provider Family Medicine
DX: M79.602 Pain in left arm (principal)
CPT/HCPCS: 97035; 97110; 97162

== ENCOUNTER 2020-05-18 12:48 | Emergency (ER) | payer MEDICARE, SELFPAY ==
[2017-03-16 08:30] VITALS: BMI 29.2
[2020-05-13 10:57] VITALS: BMI 25.7
[2020-05-18 12:50] VITALS: BP 133/72; PULSE 107; RESP 15; TEMP 36.9; O2SAT 97; BMI 23.1
[2020-05-18 13:04] VITALS: RESP 16
--- NOTE | 2020-05-18 13:09 | RAD_ITS ---
STUDY: X-RAY - LEFT KNEE REASON FOR EXAM: Female, 64 years old. Fall last Tuesday, pain and swelling in knee. TECHNIQUE: 4 view(s) of the knee. COMPARISON: None. FINDINGS: Normal visualized distal femur. Normal visualized proximal tibia and fibula. Normal proximal tibiofibular articulation. Surgical clips are noted medially. There is spurring and narrowing of the patellofemoral joint medially. There is mild marginal osteophytosis and faint chondrocalcinosis. Normal medial femorotibial compartment. Normal lateral femorotibial compartment. Normal patellofemoral articulation. The soft tissue structures are unremarkable. RAD/Knee 4 or More Views IMPRESSION: Degenerative arthrosis. Electronically Signed: Norris Brice MD at 13:51 EDT , Service support ,
--- NOTE | 2020-05-18 13:09 | RAD_ITS ---
STUDY: X-RAY - LEFT TIBIA AND FIBULA REASON FOR EXAM: Female, 64 years old. Fall last Tuesday, pain since then. TECHNIQUE: 2 view(s) of the tibia and fibula were obtained. COMPARISON: None. FINDINGS: Normal visualized tibia. Normal visualized fibula. The soft tissue structures are unremarkable. RAD/Tibia & Fibula 2 Views IMPRESSION: Normal x-ray examination of the tibia and fibula. Electronically Signed: Norris Brice MD at 13:52 EDT , Service support ,
--- NOTE | 2020-05-18 13:32 | ED.DCSUM_ITS ---
History of Present Illness Chief Complaint: Lower Extremity Injury Narrative: Patient presenting for evaluation secondary to a fall and left leg pain and swelling and difficulty ambulating. Patient states that she was apparatuses about a week ago and suffered a mechanical fall where she fell directly onto her left knee. Since then she reports that she has been limping, and has been suffering some swelling from the level of her knee down to her foot. Patient denies any chest pain or shortness of breath. Patient denies any hemoptysis. Patient denies any history of DVT or PE. Pain is aching and mild to moderate worse with ambulating. Patient denies any infectious signs or symptoms. Review of systems otherwise negative. Past Medical History - Allergies and Home Meds Allergies/Adverse Reactions: Allergies Penicillins Allergy (Verified 05/18/20 12:50) Hives hydrocodone bitartrate [From Vicodin] Adverse Reaction (Verified 05/18/20 12:50) Vomiting ibuprofen Adverse Reaction (Verified 05/18/20 12:50) Vomiting Primary Care Physician: Bulmaro Nogueira DO [Primary Care Provider] - Prior records reviewed: Yes Past Medical History: - - Diabetes, stroke, hypertension, hyperlipidemia, coronary artery disease, COPD Surgical History: angioplasty, appendectomy, cholecystectomy, hysterectomy Smoking Status: Former smoker - Family History Maternal Family History: Reports: Cancer - Uterine cancer, Diabetes, Heart Disease Paternal Family History: Reports: Heart Disease Sibling Family History: Reports: Diabetes, Heart Disease, Hypertension Review of Systems General: Denies: Chills, Fever, Sweats Eyes: Denies: Visual changes - bilaterally, Diplopia ENT: Denies: Rhinorrhea, Sore throat Cardiovascular: Denies: Chest pain, Palpitations Respiratory: Denies: Dyspnea, Cough, Dyspnea on exertion Gastrointestinal: Denies: Abdominal pain, Nausea, Vomiting, Diarrhea, Melena, Hematochezia Genitourinary: Denies: Dysuria, Hematuria, Frequency Musculoskeletal: Reports: Swelling, Extremity Pain Skin: Denies: Rash, Wounds Neurological: Denies: Headache, Weakness, Numbness Physical Exam Vital Signs/Narrative: Vital Signs Temp Pulse Resp BP Pulse Ox 05/18/20 13:04 16 05/18/20 12:50 98.5 F 107 H 15 133/72 H 97 Inital Vital Signs reviewed: Yes - Extremity Exam Left Knee: - - Examination the patient's left leg shows soft compartments of the thigh and calf. Diffuse tenderness of the patient's gray and calf on the left side without any obvious evidence of deformity, there is about +1 edema that goes up to just above the knee. Knee appears to have some anterior joint effusion. Tenderness to palpation over the patella. No warmth or erythema is noted. No crepitus with range of motion. 2+ DP and PT pulses that are bilaterally symmetric. Normal capillary refill. General: Well nourished, Well developed Head: Normocephalic, Atraumatic Eyes: EOMI ENT: No Trauma Neck: Full ROM Cardiovascular: Regular rate, Regular rhythm, No murmurs Respiratory: No distress Skin: Normal color, No rash Neurological: Alert, Oriented x3, Cranial nerves II-XII grossly intact, Normal Strength, Normal Sensation Psychological: Normal affect Diagnostic/Tx/Re-eval Clinical Impression(s) from Imaging Studies Knee X-Ray 05/18/20 13:09 IMPRESSION: Degenerative arthrosis. Electronically Signed: Norris Brice MD at 13:51 EDT , Service support , Tibia/Fibula X-Ray 05/18/20 13:09 IMPRESSION: Normal x-ray examination of the tibia and fibula. Electronically Signed: Norris Brice MD at 13:52 EDT , Service support , - Medical Decision Making Patient presented with leg pain after a fall and swelling. I performed a two- point DVT scan at the bedside on the patient, femoral vein as well as the popliteal vein show good compressibility, and normal augmentation with color flow no evidence of DVT at these levels. X-rays of the knee and tib-fib were obtained. By my personal interpretation as well as radiology these are negative. Patient's presentation at this point likely is that of contusion with edema. She was given an César wrap, she was recommended elevation and continue conservative management. Patient requested additional pain control she was given a dose of Toradol and was discharged. ED Disposition - Plan for ED Patient: Disposition: Home or Assisted Living Diagnosis: Contusion of left knee Instructions: ED EXTREMITY CONTUSION Lower Referrals: Bulmaro Nogueira, DO [Primary Care Provider] - 1 Week if not improving
[2020-05-18] MEDS: Ketorolac 30 MG/ML Syringe IM (14:07)
[2020-05-18 14:31] VITALS: PULSE 90; RESP 16; O2SAT 99
--- NOTE | 2020-05-18 14:31 | ED.RN ---
REVIEWED D/C INSTRUCTIONS, FOLLOW UP CARE, AND S/S THAT WOULD WARRANT A RETURN TO THE ED WITH PT. PT VERBALIZED AN UNDERSTANDING AND DENIES FURTHER QUESTIONS FOR THIS RN. PT SKIN P/W/D, RESP EVEN AND UNLABORED, PT A&O X 3, NO DISTRESS NOTED. PT ASSISTED OUT OF ED IN WHEELCHAIR.
== END 2020-05-18 14:32 | disposition home or self-care (01) ==
PROVIDERS: Emergency Provider Emergency Medicine; PCP Family Medicine
DX: S80.02XA Contusion of left knee, initial encounter (principal); W19.XXXA Unspecified fall, initial encounter; Y93.9 Activity, unspecified; Y92.9 Unspecified place or not applicable; I10 Essential (primary) hypertension; E11.9 Type 2 diabetes mellitus without complications; E78.5 Hyperlipidemia, unspecified; I25.10 Atherosclerotic heart disease of native coronary artery without angina pectoris; J44.9 Chronic obstructive pulmonary disease, unspecified; Z86.73 Personal history of transient ischemic attack (TIA), and cerebral infarction without residual deficits; Z79.82 Long term (current) use of aspirin; Z79.02 Long term (current) use of antithrombotics/antiplatelets; Z79.84 Long term (current) use of oral hypoglycemic drugs; Z79.899 Other long term (current) drug therapy; Z87.891 Personal history of nicotine dependence
CPT/HCPCS: 73564; 73590; 96372; 99282

== ENCOUNTER 2020-06-08 15:22 | Emergency (ER) | payer MEDICARE, SELFPAY ==
[2017-03-16 08:30] VITALS: BMI 29.2
[2020-06-08 15:24] VITALS: BP 149/71; PULSE 96; RESP 18; TEMP 36.3; O2SAT 99; BMI 23.7
--- NOTE | 2020-06-08 16:04 | EKG12_ITS ---
Test Reason : CP Blood Pressure : / mmHG Vent. Rate : 086 BPM Atrial Rate : 086 BPM P-R Int : 144 ms QRS Dur : 084 ms QT Int : 414 ms P-R-T Axes : 053 029 048 degrees QTc Int : 495 ms Normal sinus rhythm Prolonged QT Abnormal ECG Confirmed by HENRY BARFIELD, DAYANA ([id number]), mapping editor TAQUERIA CHAMBERLAIN ([id number]) on 06/12/2020 11:21:47 AM Referred By: Confirmed By:DAYANA FIGUEROA MD
--- NOTE | 2020-06-08 16:04 | RAD_ITS ---
STUDY: X-RAY CHEST REASON FOR EXAM: Female, 64 years old. n/v/d, chest pain, cough, weakness, glucose reading and gt;500 at home. -- [ End ] TECHNIQUE: Frontal view of the chest COMPARISON: April 03 2020 FINDINGS: There is prior sternotomy with aortic valve Prostatic replacement and coronary artery bypass grafting. There are are metallic stents in the LAD territory. The lungs are clear and expanded. There is no demonstrated pleural abnormality. Normal size heart. Normal mediastinum and jovan. Normal visualized pulmonary arteries. Normal visualized aortic arch and descending thoracic aorta. Normal visualized thoracic spine. Normal visualized ribs, clavicles, and shoulders. There is no demonstrated abnormality of the visualized soft tissue structures of the upper abdomen. RAD/Chest 1 View (Portable) IMPRESSION: No acute cardio vascular disease. No change since prior. Prior cardiac surgery. Electronically Signed: Sangeetha Richardson, at 17:04 EDT Tel , Service support ,
[2020-06-08] MEDS: 0.9% Normal Saline 1,000 ML 999 ML IV (16:25)
[2020-06-08 16:26] VITALS: BP 156/84; PULSE 81; RESP 19; O2SAT 98
[2020-06-08 16:27] VITALS: BP 156/84; PULSE 81; RESP 19; TEMP 36.3; O2SAT 98
[2020-06-08 16:38] LABS: Bacteria 0 SEEN /hpf (None Seen); Mucous, Urine 0 SEEN /hpf (<or=2+); Red Blood Cells-Urine 0 SEEN /hpf (0-5); White Blood Cells 0 SEEN /hpf (0-5)
[2020-06-08 16:39] LABS: Color, Urine Straw (Yellow); Glucose, Dipstick 1000 mg/dl (Normal); Ketone-Dipstick Negative (Negative); Leukocyte Esterase-Dipstick Negative /ul (Negative); Nitrite-Dipstick Negative (Negative); Occult Blood-Urine Negative /ul (Negative); Protein-Dipstick Negative (Negative); Specific Gravity, Urine 1.015 (1.002-1.030); Urine Bilirubin Dipstick Negative (Negative); Urine Clarity Clear (Clear); Urine Urobilinogen Normal (Normal)
[2020-06-08 16:40] LABS: Absolute Lymphocyte Count 2.18 X10^3/uL (0.83-4.51); Absolute Neutrophil Count 2.5 X10^3/uL (2.0-7.7); Basophil# 0.03 X10^3/uL; Basophil% 0.6 % (0-1); Eosinophil# 0.17 X10^3/uL; Eosinophils% 3.2 % (0-5); Hematocrit 36.6 % (37-47); Hemoglobin 12.4 g/dL (12.0-15.0); Lymphocyte # 2.18 X10^3/ul (4.0); Lymphocyte % 41.1 % (19-41); Mean Corp Hgb Conc 33.9 g/dL (32-36); Mean Corpuscular Hgb 30.7 pg (27.0-32.0); Mean Corpuscular Volume 90.6 fL (81-99); Mean Platelet Vol. 11.4 fl (6.2-12.0); Monocyte# 0.39 X10^3/uL; Monocyte% 7.4 % (0-10); NRBC Flagged by Analyzer 0 % (0-5); Neutrophil % 47.1 % (47-70); Platelet Count 198 K/mm3 (150-450); RBC Distribution Width CV 12.2 % (11.6-14.6); RBC Distribution Width SD 40.4 fl (35.1-43.9); Red Blood Count 4.04 M/mm3 (4.2-5.4); White Blood Count 5.3 K/mm3 (4.4-11.0)
[2020-06-08 17:00] LABS: Squamous Epithelial Cells - UA 0-5 SEEN /hpf (5-10)
[2020-06-08] MEDS: Ondansetron 4 MG/2 ML Vial IV (17:01)
[2020-06-08] MEDS: Aspirin 325 MG Tablet PO (17:01)
[2020-06-08 17:03] LABS: Anion Gap 7 (5-15); BUN 7 mg/dL (7-18); BUN/Creat Ratio 6.5 RATIO (10-20); Calcium,Total 9.1 mg/dL (8.5-10.1); Chloride 102 mmol/L (98-107); Creatinine, Serum 1.07 mg/dL (0.55-1.02); EST Glomerular Filtration Rate 54 mL/min (>60); Est Glom Filt Rate - Afr Amer 66 mL/min (>60); Estimated Creatinine Clearance 42.78 ml/min; Glucose 594 mg/dL (74-106); Potassium 3.9 mmol/L (3.5-5.1); Sodium Level 133 mmol/L (136-145)
[2020-06-08 17:05] VITALS: BP 149/81; PULSE 74; RESP 14; TEMP 36.7; O2SAT 98
[2020-06-08 17:31] LABS: Bedside Glucose 377 mg/dL (70-110)
[2020-06-08 18:38] VITALS: BP 144/79; PULSE 77; RESP 16; O2SAT 95
[2020-06-08 19:01] LABS: Bedside Glucose 414 mg/dL (70-110)
[2020-06-08 19:54] VITALS: BP 161/82; PULSE 84; RESP 18; TEMP 36.6; O2SAT 98
--- NOTE | 2020-06-08 19:55 | ED.DCSUM_ITS ---
History of Present Illness Chief Complaint: Nausea/Vomiting/Diarrhea Informant: Patient, Family Onset: Days Narrative: Patient is a 64-year-old female with history of insulin-dependent diabetes mellitus as well as coronary artery disease presenting with 2 days of genera lized malaise and feeling crappy. She states she is had associated nausea, vomiting and decreased appetite. She is had pain in her chest/epigastric region and diarrhea. Patient denies any blood in her stool. She states her diarrhea started today and has been watery and brown. She denies any lower abdominal pain or back pain. She denies any fever, respiratory symptoms or muscle aches. When she says she has chest pain she points to her xiphoid process. Patient states her blood sugar was normal this morning with him when she rechecked it this evening it was reading high. Past Medical History - Allergies and Home Meds Allergies/Adverse Reactions: Allergies Penicillins Allergy (Verified 06/08/20 15:24) Hives hydrocodone bitartrate [From Vicodin] Adverse Reaction (Verified 06/08/20 15:24) Vomiting ibuprofen Adverse Reaction (Verified 06/08/20 15:24) Vomiting Primary Care Physician: Bulmaro Nogueira DO [Primary Care Provider] - Past Medical History: - - Heart disease, diabetes, hypertension, hyperlipidemia, GERD Surgical History: angioplasty, appendectomy, cholecystectomy, hysterectomy Smoking Status: Current every day smoker - Family History Maternal Family History: Reports: Cancer - Uterine cancer, Diabetes, Heart Disease Paternal Family History: Reports: Heart Disease Sibling Family History: Reports: Diabetes, Heart Disease, Hypertension Review of Systems General: Reports: Malaise, - - Decreased appetite. Denies: Chills, Fever, Sweats Eyes: Denies: Visual changes - bilaterally, Diplopia ENT: Denies: Rhinorrhea, Sore throat Cardiovascular: Reports: Chest pain. Denies: Palpitations Respiratory: Denies: Dyspnea, Cough, Dyspnea on exertion Gastrointestinal: Reports: Abdominal pain, Nausea, Vomiting, Diarrhea. Denies: Melena, Hematochezia Genitourinary: Denies: Dysuria, Hematuria, Frequency Musculoskeletal: Denies: Back pain, Extremity Pain Skin: Denies: Rash, Wounds Neurological: Denies: Headache, Weakness, Numbness Physical Exam Vital Signs/Narrative: Vital Signs Temp Pulse Resp BP Pulse Ox 06/08/20 18:38 77 16 144/79 H 95 06/08/20 17:05 98.1 F 74 14 149/81 H 98 06/08/20 16:27 97.4 F L 81 19 H 156/84 H 98 06/08/20 16:26 81 19 H 156/84 H 98 Inital Vital Signs reviewed: Yes General: Well nourished, Well developed, No Acute Distress Head: Normocephalic, Atraumatic Eyes: Perrl, EOMI ENT: Moist mucous membranes, No rhinorrhea Neck: Supple, Nontender, No JVD Cardiovascular: Regular rate, Regular rhythm, No murmurs Respiratory: No distress, CTA bilaterally, Chest nontender. Negative for: Decreased Air Movement Abdomen: Soft, Nondistended, Normal bowel sounds, Tender - Mild, epigastric region. Negative for: Guarding, Rebound tenderness, Salas's sign Back: Nontender, Normal Inspection. Negative for: CVA tenderness Extremities: Nontender, No edema Skin: Normal color, No rash Neurological: Alert, Oriented x3, Cranial nerves II-XII grossly intact, Normal Strength, Normal Sensation Psychological: Normal affect, Normal Mood Diagnostic/Tx/Re-eval Chest X-Ray - ED: 1 View, Read by ED Physician, Read by Radiologist, No Acute Disease Clinical Impression(s) from Imaging Studies Chest X-Ray 06/08/20 16:04 IMPRESSION: No acute cardio vascular disease. No change since prior. Prior cardiac surgery. Electronically Signed: Sangeetha Dylan, at 17:04 EDT Tel , Service support , Laboratory Data 06/08/20 06/08/20 06/08/20 16:00 16:00 16:00 WBC 5.3 RBC 4.04 L Hgb 12.4 Hct 36.6 L MCV 90.6 MCH 30.7 MCHC 33.9 RDW Std Deviation 40.4 RDW Coeff of [place] 12.2 Plt Count 198 MPV 11.4 Immature Gran % (Auto) 0.600 Neut % (Auto) 47.1 Lymph % (Auto) 41.1 H [place] % (Auto) 7.4 Eos % (Auto) 3.2 Baso % (Auto) 0.6 Absolute Neuts (auto) 2.5 Absolute Lymphs (auto) 2.18 Nucleated RBC % 0 Sodium 133 L Potassium 3.9 Chloride 102 Carbon Dioxide 24.0 Anion Gap 7 BUN 7 Creatinine 1.07 H Estim Creat Clear Calc 42.78 Est GFR (MDRD) Af Amer 66 Est GFR (MDRD) Non-Af 54 L BUN/Creatinine Ratio 6.5 L Glucose 594 H* Calcium 9.1 Troponin I < 0.015 Urine Color Urine Clarity Urine pH Ur Specific [place] Urine Protein Urine Glucose (UA) Urine Ketones Urine Occult Blood Urine Nitrite Urine Bilirubin Urine Urobilinogen Ur Leukocyte Esterase Urine RBC Urine WBC Ur Squamous Epith Cells Urine Bacteria Urine Mucus Acetone Level NEGATIVE POC Glucose 06/08/20 06/08/20 06/08/20 16:33 17:26 18:56 WBC RBC Hgb Hct MCV MCH MCHC RDW Std Deviation RDW Coeff of [place] Plt Count MPV Immature Gran % (Auto) Neut % (Auto) Lymph % (Auto) [place] % (Auto) Eos % (Auto) Baso % (Auto) Absolute Neuts (auto) Absolute Lymphs (auto) Nucleated RBC % Sodium Potassium Chloride Carbon Dioxide Anion Gap BUN Creatinine Estim Creat Clear Calc Est GFR (MDRD) Af Amer Est GFR (MDRD) Non-Af BUN/Creatinine Ratio Glucose Calcium Troponin I Urine Color Straw Urine Clarity Clear Urine pH 6.0 Ur Specific [place] 1.015 Urine Protein Negative Urine Glucose (UA) 1000 H Urine Ketones Negative Urine Occult Blood Negative Urine Nitrite Negative Urine Bilirubin Negative Urine Urobilinogen Normal Ur Leukocyte Esterase Negative Urine RBC 0 SEEN Urine WBC 0 SEEN Ur Squamous Epith Cells 0-5 SEEN Urine Bacteria 0 SEEN Urine Mucus 0 SEEN Acetone Level POC Glucose 377 H 414 H - Rhythm Strip Rhythm Strip: Sinus Rhythm Rate: 86 Ectopy: None - EKG Initial EKG Interpretation: Sinus Rhythm, - - Normal sinus rhythm at a rate of 86 Normal intervals QTC of [address] segments - Medical Decision Making Patient is evaluated for 2 days of generalized malaise and GI symptoms including vomiting and diarrhea. She states she is having chest pain but actually points to her epigastric region. I suspect is more associated with her vomiting. She does have cardiac history however so EKG and cardiac work-up are also obtained. In addition, patient was found to be hyperglycemic at home she does have a history of diabetes. She states she is been compliant with her insulin. Patient is given IV fluids , aspirin and Zofran. She has significant improvement of her symptoms. Work-up is significant for hyperglycemia with a glucose of 594. She has a normal anion gap and negative acetone. Urinalysis shows glucose but not consistent with infection. Her CBC is normal. Her sodium was slightly low 133 but this is likely pseudohyponatremia secondary to her hyperglycemia. Patient is not having dynamic EKG changes concerning for ACS. After the liter fluid her glucose was rechecked and is now 414. Patient is given 6 units of short acting insulin. She is requesting another dose of oral Zofran and to go home. She states she feels better and just wants to leave. She wants to go home and eat. She does not want to try to p.o. challenge in the ER. Patient is encouraged to continue with her home insulin regimen and to check her glucose after eating prevent further hyperglycemia. Her abdomen is soft nontender I do not think imaging is indicated at this time. She is given return precautions. She verbalizes agreement understand this plan. She is discharged home in stable and improved condition. She is hemodynamically stable throughout her ER course. ED Disposition - Plan for ED Patient: Disposition: Home or Assisted Living Diagnosis: Hyperglycemia, Nausea and vomiting, Diarrhea, Chest pain Instructions: ED Diabetic Hyperglycemia, ED Weakness UKO, ED Vomiting and Diarrhea Nonspecific Adult, ED Chest Pain UKO Prescriptions: Ondansetron [Zofran Odt] 4 mg PO Q8H PRN PRN #10 tab PRN Reason: Nausea Transmission Status: Received by [facility] Referrals: Bulmaro Nogueira DO [Primary Care Provider] - Additional Instructions: Please take your regular insulin tonight. Please eat when you go home and take sliding scale insulin as needed. Return the emergency room with worsening symptoms. Please follow-up with your primary care doctor later this week for further evaluation.
[2020-06-08] MEDS: Ondansetron ODT 4 MG Tablet PO (20:03)
[2020-06-08] MEDS: Insulin Lispro 100 UNIT/ML INSULN.PEN 6 UNIT SC (20:04)
== END 2020-06-08 20:13 | disposition home or self-care (01) ==
PROVIDERS: Emergency Provider Emergency Medicine; PCP Family Medicine
DX: E11.65 Type 2 diabetes mellitus with hyperglycemia (principal); R10.13 Epigastric pain; R19.7 Diarrhea, unspecified; I10 Essential (primary) hypertension; E78.5 Hyperlipidemia, unspecified; K21.9 Gastro-esophageal reflux disease without esophagitis; I25.10 Atherosclerotic heart disease of native coronary artery without angina pectoris; Z79.4 Long term (current) use of insulin; Z79.82 Long term (current) use of aspirin; Z79.84 Long term (current) use of oral hypoglycemic drugs; Z79.899 Other long term (current) drug therapy; F17.200 Nicotine dependence, unspecified, uncomplicated
CPT/HCPCS: 71045; 80048; 81001; 82009; 82962; 84484; 85025; 93005; 96361; 96372; 96374; 99284; J7030; A4216; J2405

== ENCOUNTER → 2020-07-16 12:19 | Outpatient (CLI) | payer MEDICARE, SELFPAY ==
[2017-03-16 08:30] VITALS: BMI 29.2
[2020-07-16 12:09] VITALS: BMI 23.7
== END ==
PROVIDERS: PCP Family Medicine; Referring Provider Nurse Practitioner Family; Visit Provider Nurse Practitioner Family
DX: I25.10 Atherosclerotic heart disease of native coronary artery without angina pectoris (principal); Z95.5 Presence of coronary angioplasty implant and graft; Z95.1 Presence of aortocoronary bypass graft; R07.9 Chest pain, unspecified
CPT/HCPCS: 36415; 84484

== ENCOUNTER 2020-07-18 17:24 | Inpatient (IN) | payer MEDICARE, SELFPAY ==
[2017-03-16 08:30] VITALS: BMI 29.2
[2020-07-16 12:09] VITALS: BMI 23.7
[2020-07-18] VITALS (9 sets, daily range): BP systolic 118–156; BP diastolic 69–88; PULSE 82–111; RESP 16–18; TEMP 36.1–37.2; O2SAT 96–100; BMI 23.6; BMI 23.8
--- NOTE | 2020-07-18 17:41 | ED.VIS.GEN ---
History of Present Illness Chief Complaint: Chest Pain Informant: Patient Narrative: 64-year-old female with history of CAD, hyperlipidemia, diabetes, [place] with stents, CABG, mitral valve replacement presenting with chest pain which she states is retrosternal and radiates to the left arm. She states this started at 930 this morning. She took 2 baby aspirin and laid down. She does not have any diaphoresis, dizziness, nausea. She states that she had some chest pain on and was seen at her drain tiler office, but she cannot recall the name of her drain tiler. She said they did an EKG and blood work. She is scheduled for an outpatient stress test, but she states nobody ever called her back. She has had chest pain constantly for 8 hours. He says he has history of provoked PE while she was inpatient and sick in the hospital. He has a slight cough which she states has been present for 2 days. She has not had a fever, myalgias, loss of taste or smell. - Past Medical History (1) History of aortic valve replacement with bioprosthetic valve Status: Chronic (2) Atherosclerotic heart disease of [place] coronary artery without angina pectoris Status: Chronic (3) History of coronary artery stent placement Status: Resolved Comment: [id number]-[id number]-Mid LAD w/ 3.0 x 16 mm Promus Premier 02/08/2014; PCI-ROMEL-Mid LAD w/ 3.0 x 12 mm Promus Stent 05/31/2016; YTY-SMT-GVT-Prox LAD w/ 3.0 x 28 mm Synergy Stent 03/15/2017 (4) H/O coronary artery bypass surgery Status: Resolved (5) Essential (primary) hypertension Status: Chronic (6) Hyperlipidemia Status: Chronic Past Medical History - Allergies and Home Meds Allergies/Adverse Reactions: Allergies Penicillins Allergy (Verified 07/18/20 17:25) Hives hydrocodone bitartrate [From Vicodin] Adverse Reaction (Verified 07/18/20 17:25) Vomiting ibuprofen Adverse Reaction (Verified 07/18/20 17:25) Vomiting Past Medical History: - - Diabetes, [place] Surgical History: angioplasty, appendectomy, cholecystectomy, hysterectomy, - - CABG, mitral valve replacement, cardiac stents Smoking Status: Current every day smoker Alcohol: None Drugs: None - Family History Maternal Family History: Family History (Last Updated 07/16/20 @ 11:47 by Monster Francois [employer], [employer]) Father Heart disease Hypertension Diabetes Hyperlipidemia Mother Diabetes Heart disease Hypertension Hyperlipidemia Brother Heart disease Sister Diabetes Cancer Hyperlipidemia Family History: Reports: Cancer - Uterine cancer, Diabetes, Heart Disease Paternal Family History: Family History (Last Updated 07/16/20 @ 11:47 by Monster Francois [employer]IGN [employer], DESIGN [employer]C) Father Heart disease Hypertension Diabetes Hyperlipidemia Mother Diabetes Heart disease Hypertension Hyperlipidemia Brother Heart disease Sister Diabetes Cancer Hyperlipidemia Family History: Reports: Heart Disease Sibling Family History: Family History (Last Updated 07/16/20 @ 11:47 by Monster Francois [employer]IGN [employer], DESIGN [employer]C) Father Heart disease Hypertension Diabetes Hyperlipidemia Mother Diabetes Heart disease Hypertension Hyperlipidemia Brother Heart disease Sister Diabetes Cancer Hyperlipidemia Family History: Reports: Diabetes, Heart Disease, Hypertension Review of Systems General: Denies: Chills, Fever, Sweats Eyes: Denies: Visual changes - bilaterally, Diplopia ENT: Denies: Rhinorrhea, Sore throat Cardiovascular: Reports: Chest pain. Denies: Palpitations, Heart racing Respiratory: Reports: Cough. Denies: Dyspnea, Sputum Gastrointestinal: Denies: Abdominal pain, Nausea, Vomiting Genitourinary: Denies: Dysuria, Hematuria Musculoskeletal: Denies: Myalgias, Arthralgias, Neck pain Skin: Denies: Rash, Abscess Neurological: Denies: Headache, Weakness Psych: Denies: Depression, Anxiety Physical Exam Vital Signs/Narrative: Vital Signs Temp Pulse Resp BP Pulse Ox 07/18/20 17:25 97 F L 111 H 16 156/88 H 100 General: Cachectic, No Acute Distress Head: Normocephalic, Atraumatic Eyes: Perrl, EOMI ENT: Moist mucous membranes, No rhinorrhea Cardiovascular: Regular rate, Regular rhythm Respiratory: No distress, CTA bilaterally, Chest nontender Extremities: Nontender, No edema Skin: Normal color, No rash Neurological: Alert, Oriented x3 Psychological: Normal affect, Normal Mood Diagnostic/Tx/Re-eval Clinical Impression(s) from Imaging Studies Chest X-Ray 07/18/20 18:05 IMPRESSION: No acute cardiopulmonary process. Electronically Signed: Savannah Boyd MD at 18:20 EDT Tel , Service support , Laboratory Data 07/18/20 07/18/20 07/18/20 18:15 18:15 18:15 WBC 7.8 RBC 4.40 Hgb 13.7 Hct 40.1 MCV 91.1 MCH 31.1 MCHC 34.2 RDW Std Deviation 41.1 RDW Coeff of [place] 12.2 Plt Count 228 MPV 10.8 Immature Gran % (Auto) 0.500 Neut % (Auto) 55.2 Lymph % (Auto) 34.5 [place] % (Auto) 6.1 Eos % (Auto) 3.1 Baso % (Auto) 0.6 Absolute Neuts (auto) 4.3 Absolute Lymphs (auto) 2.67 Nucleated RBC % 0 D-Dimer Quant (PE/DVT) 0.53 H* Sodium 136 Potassium 3.7 Chloride 104 Carbon Dioxide 23.0 Anion Gap 9 BUN 11 Creatinine 0.94 Estim Creat Clear Calc 48.70 Est GFR (MDRD) Af Amer 77 Est GFR (MDRD) Non-Af 63 BUN/Creatinine Ratio 11.8 Glucose 377 H Calcium 9.0 Troponin I 0.096 H - Rhythm Strip Rhythm Strip: Sinus Rhythm Rate: 90 - EKG Initial EKG Interpretation: Sinus Rhythm, No Acute Injury Pattern - Medical Decision Making Patient presents with chest pain. She states that it is central and radiates to left arm. She states he was scheduled for an outpatient stress test by her drain tiler but she had not heard from him. She has been pain-free since . Initial troponin she had drawn the other day was negative. EKG today sinus rhythm without signs of ischemia. No ST elevation or depression. Chest x-ray is negative. Age-adjusted d-dimer is negative. Troponin is indeterminant. Other lab work is unremarkable. Patient was given nitroglycerin with relief of her pain. Given that she is scheduled for a stress test I feel the patient needs to be admitted for further evaluation. Impression: 1. Chest pain 2. Indeterminate troponin ED Disposition - Plan for ED Patient:
--- NOTE | 2020-07-18 17:41 | EKG12_ITS ---
Test Reason : CP ADMISSION Blood Pressure : / mmHG Vent. Rate : 090 BPM Atrial Rate : 090 BPM P-R Int : 142 ms QRS Dur : 088 ms QT Int : 408 ms P-R-T Axes : 071 037 075 degrees QTc Int : 499 ms Normal sinus rhythm Prolonged QT Abnormal ECG When compared with ECG of 18-JUL-2020 17:50, MANUAL COMPARISON REQUIRED, DATA IS UNCONFIRMED Confirmed by TJ BARFIELD, GLORY ([id number]), business editor TAQUERIA CHAMBERLAIN ([id number]) on 07/23/2020 11:30:27 AM Referred By: DR TSANG Confirmed By:AL SPENCER MD
[2020-07-18] MEDS: Aspirin 81 MG TAB.CHEW 162 MG PO (18:01)
--- NOTE | 2020-07-18 18:05 | RAD_ITS ---
STUDY: X-RAY CHEST REASON FOR EXAM: Female, 64 years old. CHEST TIGHTNESS x3 DAYS TECHNIQUE: Single frontal view of the chest. COMPARISON: 06/08/2020. FINDINGS: There is no new focal consolidation. Sternal cerclage wires are present from a prior sternotomy. The cardiac silhouette is within normal limits. There is a prosthetic cardiac valve in place. Normal mediastinum and jovan. Normal visualized pulmonary arteries. Normal visualized aortic arch and descending thoracic aorta. Normal visualized thoracic spine. Normal visualized ribs, clavicles, and shoulders. There is no demonstrated abnormality of the visualized soft tissue structures of the upper abdomen. RAD/Chest 1 View (Portable) IMPRESSION: No acute cardiopulmonary process. Electronically Signed: Savannah Boyd MD at 18:20 EDT Tel , Service support ,
[2020-07-18] MEDS: Nitroglycerin SL (ED/IMG/CATH) 0.4 MG TABLET SUBLINGUAL ×3 (18:20→18:28)
[2020-07-18 18:30] LABS: Absolute Lymphocyte Count 2.67 X10^3/uL (0.83-4.51); Absolute Neutrophil Count 4.3 X10^3/uL (2.0-7.7); Basophil# 0.05 X10^3/uL; Basophil% 0.6 % (0-1); Eosinophil# 0.24 X10^3/uL; Eosinophils% 3.1 % (0-5); Hematocrit 40.1 % (37-47); Hemoglobin 13.7 g/dL (12.0-15.0); Lymphocyte # 2.67 X10^3/ul (4.0); Lymphocyte % 34.5 % (19-41); Mean Corp Hgb Conc 34.2 g/dL (32-36); Mean Corpuscular Hgb 31.1 pg (27.0-32.0); Mean Corpuscular Volume 91.1 fL (81-99); Mean Platelet Vol. 10.8 fl (6.2-12.0); Monocyte# 0.47 X10^3/uL; Monocyte% 6.1 % (0-10); NRBC Flagged by Analyzer 0 % (0-5); Neutrophil # 4.28 X10^3/uL (2.7-7.7); Neutrophil % 55.2 % (47-70); Platelet Count 228 K/mm3 (150-450); RBC Distribution Width CV 12.2 % (11.6-14.6); RBC Distribution Width SD 41.1 fl (35.1-43.9); White Blood Count 7.8 K/mm3 (4.4-11.0)
[2020-07-18 18:46] LABS: Anion Gap 9 (5-15); BUN 11 mg/dL (7-18); BUN/Creat Ratio 11.8 RATIO (10-20); Chloride 104 mmol/L (98-107); Creatinine, Serum 0.94 mg/dL (0.55-1.02); EST Glomerular Filtration Rate 63 mL/min (>60); Est Glom Filt Rate - Afr Amer 77 mL/min (>60); Glucose 377 mg/dL (74-106); Potassium 3.7 mmol/L (3.5-5.1); Sodium Level 136 mmol/L (136-145)
[2020-07-18 18:50] LABS: D-Dimer Quantitative (DVT/PE) 0.53 FEU/ug/m (0.27-0.49)
--- NOTE | 2020-07-18 19:33 | PCM.HP.STD ---
Problem List (1) Chest pain Status: Acute Qualifiers: Chest pain type: unspecified Qualified Code(s): R07.9 - Chest pain, unspecified (2) COPD (chronic obstructive pulmonary disease) Status: Chronic Qualifiers: COPD type: unspecified COPD Qualified Code(s): J44.9 - Chronic obstructive pulmonary disease, unspecified (3) Diabetes mellitus type 2, uncontrolled Status: Chronic Qualifiers: Glycemic state: with hyperglycemia Qualified Code(s): E11.65 - Type 2 diabetes mellitus with hyperglycemia (4) Fe deficiency anemia Status: Chronic Qualifiers: Iron deficiency anemia type: unspecified iron deficiency Qualified Code(s): D50.9 - Iron deficiency anemia, unspecified (5) Anxiety and depression Status: Chronic (6) Former tobacco use Status: Chronic (7) History of aortic valve replacement with bioprosthetic valve Status: Chronic (8) Atherosclerotic heart disease of [place] coronary artery without angina pectoris Status: Chronic Qualifiers: [place] vs. transplanted heart: unspecified whether [place] or transplanted heart Qualified Code(s): I25.10 - Atherosclerotic heart disease of [place] coronary artery without angina pectoris (9) H/O coronary artery bypass surgery Status: Resolved (10) Essential (primary) hypertension Status: Chronic (11) Hyperlipidemia Status: Chronic Qualifiers: Hyperlipidemia type: unspecified Qualified Code(s): E78.5 - Hyperlipidemia, unspecified History of Present Illness Date of Admission: 07/18/20 Chief Complaint: Chest pain The patient is a 64 y/o F w/ PMHx: Hx Prior provoked PE, CAD s/p PCI ROMEL prox-mid LAD 2013, 2015, ROEML ISR-Prox LAD 2016, Valvular heart disease s/p AVR (bioprosthetic), HTN, HLD, Chronic COPD w/ Former Tobacco use, Hx CVA w/ L sided hemiplegia, Diabetes mellitus type II uncontrolled, Bipolar disorder/Schizophrenia, GERD, Fe deficiency anemia wo presents to the [facility] [place] ED on 07/18/20 per recommendation of her Cardiology office with recent office evaluation on 07/16/20 with history of ongoing intermittent chest pain, pressure-like sensation, noted to be retrosternal with radiation to the left upper extremity reoccurring on day of ED presentation at approximately 9:30 AM following which she took aspirin and lay down but unfortunately it did not subside and continued for nearly 8 hours prompting eventual ED presentation for evaluation. Patient had been seen on 07/16/2020 per cardiology with a EKG and blood work at that time with planned outpatient stress testing. Initially chest pain 10-->0 following NG while in the ED. Patient does admit to a mild cough, nonproductive x 2 days but no associated recent fever, chills. Patient does however report frontal throbbing headache without sound/sight issue, diarrhea (4 episodes on day of presentation), nausea with emesis x 3 prior to presentation with ongoing very mild non-productive cough x 24 hours. She denies any ill contacts including her who has been healthy. She denies going out or having anyone in the home. In the ED she notes diet sprite does not taste normal nor did her dinner which she was unable to keep down prior to presentation. Work-up in the ED included T 97, heart rate initially 111, BP 156/88, respiratory rate 16, on a percent on room air, unremarkable CBC, d-dimer 0.53 but normalizes for age correction, BMP with glucose 377 otherwise unremarkable, troponin 0.096 with recent troponin on 07/16/2020 less than 0.015 ordered per cardiology at that time, EKG w/ SR without acute evidence of ischemia. In the ED patient ministered aspirin and nitroglycerin therapy. Patient had normal stress testing 10/2019 which was unremarkable. Past Medical History Past Medical History (Chronic Problems): Chronic Problems (Last Reviewed 07/16/20 @ 11:46 by Monster Francois NP, PARANORMAL INVESTIGATOR-C) COPD (chronic obstructive pulmonary disease) (Chronic) Diabetes mellitus type 2, uncontrolled (Chronic) Fe deficiency anemia (Chronic) Anxiety and depression (Chronic) Former tobacco use (Chronic) History of aortic valve replacement with bioprosthetic valve (Chronic 01/2020) Atherosclerotic heart disease of [place] coronary artery without angina pectoris (Chronic) Essential (primary) hypertension (Chronic) Hyperlipidemia (Chronic) Nicotine dependence (Chronic) Medical History: Medical History (Last Reviewed 07/16/20 @ 11:46 by Monster Francois NP, PARANORMAL INVESTIGATOR-C) Atherosclerotic heart disease of [place] coronary artery without angina pectoris (Chronic) I25.10 Essential (primary) hypertension (Chronic) I10 Hyperlipidemia (Chronic) E78.5 Nicotine dependence (Chronic) F17.200 Bipolar disorder F31.9 Schizophrenia F20.9 Type 2 diabetes mellitus E11.9 COPD (chronic obstructive pulmonary disease) J44.9 cont smoking GERD (gastroesophageal reflux disease) K21.9 Tobacco abuse Z72.0 Uncontrolled type 2 diabetes mellitus E11.65 Abnormal finding on urinalysis R82.90 Constipation K59.00 Contusion of hip, left S70.02XA Cystitis N30.90 Dysarthria R47.1 Dysphagia R13.10 Left-sided weakness R53.1 TIA (transient ischemic attack) Onset Date: 12/2018 G45.9 CVA (cerebral vascular accident) I63.9 Allergies Penicillins Allergy (Verified 07/18/20 17:25) Hives hydrocodone bitartrate [From Vicodin] Adverse Reaction (Verified 07/18/20 17:25) Vomiting ibuprofen Adverse Reaction (Verified 07/18/20 17:25) Vomiting Home Medications: Ambulatory Orders Medication Instructions Recorded Aspirin [Adult Low Dose Aspirin EC] 81 mg PO DAILY 02/04/16 Metoprolol Tartrate [Lopressor 25 mg PO BID 06/23/17 (beta elder)] Nitroglycerin (INPATIENT USE) 0.4 mg SUBLINGUAL Q5M PRN 09/28/17 [Nitrostat] Furosemide [Lasix] 40 mg PO DAILY 11/17/18 Lisinopril 5 mg PO DAILY 11/17/18 Metformin HCl 1,000 mg PO BID 11/17/18 Cholecalciferol (Vitamin D3) 5,000 units PO DAILY 10/30/19 [Vitamin D3] Clopidogrel Bisulfate [Clopidogrel] 75 mg PO DAILY 10/30/19 Glimepiride [Amaryl] 4 mg PO DAILY 10/30/19 traZODone [Desyrel] 50 mg PO QHS PRN 03/07/20 Insulin Human 70/30 [Novolog Mix 10 units SUBCUT BIDCM 05/18/20 70-30 Flexpen Syrn] Ondansetron [Zofran Odt] 4 mg PO Q8H PRN PRN #10 tab 06/08/20 omeprazole 40 mg capsule,delayed 40 mg PO DAILY PRN cap 07/16/20 release Ferrous Sulfate [Iron] 65 mg PO DAILY 07/18/20 Gabapentin [Neurontin] 300 mg PO BIDCM 07/18/20 Isosorbide Mononitrate [Isosorbide 30 mg PO DAILY 07/18/20 Mononitrate ER] Surgical History: Surgical History (Last Reviewed 07/16/20 @ 11:46 by Monster Francois PARANORMAL INVESTIGATOR, PARANORMAL INVESTIGATOR-C) History of aortic valve replacement with bioprosthetic valve (Chronic) Onset Date: 01/2020 Z95.3 History of coronary artery stent placement (Resolved) Onset Date: 03/15/17 Z95.5 ENT-WQW-Tqcn-Mid LAD w/ 3.0 x 16 mm Promus Premier 02/08/2014; PCI-ROMEL-Mid LAD w/ 3.0 x 12 mm Promus Stent 05/31/2016; JDJ-EXX-TKL-Prox LAD w/ 3.0 x 28 mm Synergy Stent 03/15/2017 H/O coronary artery bypass surgery (Resolved) Z95.1 History of left heart catheterization Onset Date: 09/19/17 Z98.890 , 04/2014, 02/05/2016, 02/07/2017, 09/19/2017 H/O: hysterectomy Z90.710 Hx of cholecystectomy Z90.49 Surgical History: angioplasty, appendectomy, cholecystectomy, hysterectomy, - - CABG, mitral valve replacement, cardiac stents Psychiatric History: Anxiety, Bipolar, Depression 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 Tobacco Use: Non-smoker Alcohol: None Drugs: None - *Family History Maternal Family History: Family History (Last Updated 07/16/20 @ 11:47 by Monster Francois NP, PARANORMAL INVESTIGATOR-C) Father Heart disease Hypertension Diabetes Hyperlipidemia Mother Diabetes Heart disease Hypertension Hyperlipidemia Brother Heart disease Sister Diabetes Cancer Hyperlipidemia History Items: Cancer - Uterine cancer, Diabetes, High Cholesterol, Heart Disease, Hypertension Paternal Family History: Family History (Last Updated 07/16/20 @ 11:47 by Monster Francois NP, PARANORMAL INVESTIGATOR-C) Father Heart disease Hypertension Diabetes Hyperlipidemia Mother Diabetes Heart disease Hypertension Hyperlipidemia Brother Heart disease Sister Diabetes Cancer Hyperlipidemia History Items: Diabetes, High Cholesterol, Heart Disease, Hypertension Sibling Family History: Family History (Last Updated 07/16/20 @ 11:47 by Monster Francois NP, PARANORMAL INVESTIGATOR-C) Father Heart disease Hypertension Diabetes Hyperlipidemia Mother Diabetes Heart disease Hypertension Hyperlipidemia Brother Heart disease Sister Diabetes Cancer Hyperlipidemia History Items: Diabetes, Heart Disease, Hypertension Review of Systems Constitutional: Reports: Anorexia, Malaise, Weakness, Fatigue. Denies: Chills, Fever, Weight Change HEENT: Reports: Head Aches, - - Alteration to sense of taste.. Denies: Sinus Congestion, Sinus Drainage Cardiovascular: Reports: Chest Pain, Chest Pressure. Denies: Chest Tightness, Edema, Heaviness, Light Headedness, Orthopnea, Palpitations, Syncope Respiratory: Reports: Cough, Shortness of Breath. Denies: Shortness of breath at rest, Sputum production, Wheezing Gastrointestinal: Reports: Diarrhea, Nausea, Vomiting. Denies: Abdominal Pain Genitourinary: Denies: Dysuria Musculoskeletal: Reports: Joint Pain. Denies: Joint Tenderness Skin: Denies: Rash, Wounds Neurological: Reports: Focal weakness - Hx CVA with L sided weakness.. Denies: Numbness, Tingling Psychiatric: Reports: Anxiety, Depression. Denies: Homicidal Ideations, Suicidal Ideations Hematologic/ Lymphatic: Reports: Anemia, Easy Bruising, Easy Bleeding VTE Information - Inpt Only VTE Present on Admission: No VTE Mechan Device Prophylaxis: SCD's VTE Pharm Prophylaxis ordered?: Yes Patient Problems: Active and Suspected Problems (Last Reviewed 07/16/20 @ 11:46 by Monster Francois PARANORMAL INVESTIGATOR, PARANORMAL INVESTIGATOR-C) Chest pain (Acute) Subjective: Patient seated upright in ED bed, mildly fatigued appearance, notes chest pain resolved following nitroglycerin, no current chest pain, despite recent GI complaints [id number]. Objective: Physical Examination: General: awake, alert, oriented x 3 and cooperative, seated upright in the ED bed in no apparent distress, notes chest pain resolved, does not appear ill despite complaints. Skin: normal color, turgor, no icterus, cyanosis. HEENT: AT/NC, EOMI, PERRLA, mildly dry MM, no carotid bruits or JVD noted. Lungs: CTA bilaterally, moderate effort, moderate decrease BL bases, no rales, ronchi or wheezing. Heart: Regular rate and rhythm; no gallop, rub audible, + SM. Abdomen: soft, NTTP, ND, mildly hyperactive BS, no HSM. Extremities: no cyanosis, clubbing, or edema. Neurological: patient awake, alert, oriented x 3; cognitive function intact; pupils equally reactive to light and accomodation; cranial nerves II-XII grossly normal, moving all 4 extremities, history of prior CVA with mild left-sided residual hemiplegia, strength mildly global decrease secondary to acute presentation and complaints. Psychiatric: affect appears fatigued otherwise normal, no acute evidence of depressive or anxiety feelings. - Physical Exam Vitals/I&O's: Vital Signs Temp Pulse Resp BP Pulse Ox 97 F L 95 18 118/77 98 07/18/20 17:25 07/18/20 18:40 07/18/20 18:40 07/18/20 18:40 07/18/20 18:40 Oxygen Delivery Method Room Air Weight: 133 lb Body Mass Index (BMI) 23.6 Finger Stick Blood Glucose 377 Laboratory Results 07/18/20 18:15: WBC 7.8, RBC 4.40, Hgb 13.7, Hct 40.1, MCV 91.1, MCH 31.1, MCHC 34.2, RDW Std Deviation 41.1, RDW Coeff of [place] 12.2, Plt Count 228, MPV 10.8, Immature Gran % (Auto) 0.500, Neut % (Auto) 55.2, Lymph % (Auto) 34.5, Sullivan % (Auto) 6.1, Eos % (Auto) 3.1, Baso % (Auto) 0.6, Absolute Neuts (auto) 4.3, Absolute Lymphs (auto) 2.67, Nucleated RBC % 0 07/18/20 18:15: D-Dimer Quant (PE/DVT) 0.53 H* 07/18/20 18:15: Sodium 136, Potassium 3.7, Chloride 104, Carbon Dioxide 23.0, Anion Gap 9, BUN 11, Creatinine 0.94, Estim Creat Clear Calc 48.70, Est GFR (MDRD) Af Amer 77, Est GFR (MDRD) Non-Af 63, BUN/Creatinine Ratio 11.8, Glucose 377 H, Calcium 9.0, Troponin I 0.096 H Assessment/Plan All Active Problems (Last Reviewed 07/16/20 @ 11:46 by Monster Francois PARANORMAL INVESTIGATOR, PARANORMAL INVESTIGATOR-C) Chest pain (Acute) History of coronary artery stent placement (Resolved 03/15/17) H/O coronary artery bypass surgery (Resolved) Acute hyperglycemia (Resolved) Bipolar disorder (Resolved) Chest pain (Resolved) Hyperglycemia (Resolved) VTE (venous thromboembolism) (Resolved) The patient is a 64 y/o F w/ PMHx: Hx Prior provoked PE, CAD s/p PCI ROMEL prox-mid LAD 2013, 2016, ROMEL ISR-Prox LAD 2017, Valvular heart disease s/p AVR, HTN, HLD, Chronic COPD w/ Former Tobacco use, Hx CVA w/ L sided hemiplegia, Diabetes mellitus type II uncontrolled, Bipolar disorder/Schizophrenia, GERD, Fe deficiency anemia wo presents to the [facility] [place] ED on 07/18/20 with history of ongoing intermittent chest pain, pressure-like sensation, noted to be retrosternal with radiation to the left upper extremity reoccurring on day of ED presentation at approximately 9:30 AM following which she took aspirin and lay down but unfortunately it did not subside and continued for nearly 8 hours prompting eventual ED presentation for evaluation. 1. Chest Pain w/ minimally elevated indeterminate cardiac enzyme: EKG w/ SR without acute evidence of ischemia, CXR w/ no acute cardiopulmonary findings, initial trop 0.096 but recently on 07/16/2020 less than 0.015 therefore a mild recent increase with recent cardiology assessment. Will admit to PCU if COVID testing in the ED negative, place on a monitored bed to assure no acute myocardial infarction with serial cardiac enzymes and EKGs. Will request continued cardiology involvement given increasing continues trend cardiac enzymes. May still be appropriate for stress testing but if further increase may necessitate repeat cardiac catheterization. Magnesium level requested. NPO after midnight. FLP in AM. ASA, NG, morphine. 2. N/V/D, ? Gastroenteritis versus possible Acute Viral Syndrome COVID-19: CBC without marked findings, afebrile, no hypoxia, CXR without acute findings. COVID testing requested in the ED. May be simple viral gastroenteritis. No ill contacts. If COVID negative will continue #1 evaluation and also request c diff, stool cx, with repeat AM CBC. Will not start antibiotics at this time given unclear source pending stool studies as may be viral gastroenteritis. Anti-emetics. 3. CAD: Status post PCI proximal-mid LAD in 2013 and 2015, ROMEL ISR-proximal LAD 2016, continue aspirin, Plavix, metoprolol, lisinopril, not on statin. 4. Valvular heart disease: Status post AVR, bioprosthetic, echocardiogram 03/29/2020 with pulmonary artery systolic pressure 30 mmHg, EF 60%, normal LV systolic function, mildly enlarged RA, mild MVI, mild TVI, normal appearing bioprosthetic AV valve with mean gradient 13 mm. 5. Diabetes mellitus type II, uncontrolled with neuropathy: Admission blood sugar significantly elevated, recently established with endocrinology per record, will hold patient oral regimen, continue insulin, will obtain hemoglobin A1c and request nutrition consultation for education and teaching, maintain on ADA diet with insulin sliding scale and Accu-Cheks. Continue gabapentin home regimen. 6. Hx Provoked PE: Noted history of PE during prolonged hospitalization per her report, corrected d-dimer normal for age, maintain on prophylaxis. 7. Chronic COPD: On regimen, continued tobacco usage, encouraged cessation, PRN albuterol, HOB, IS parameters. 8. Hx CVA: Residual left-sided weakness, continue aspirin, Plavix, hypertensive regimen, working toward improved blood sugar control with hemoglobin A1c pending as noted above, not on statin therapy, FLP in AM. 9. Iron deficiency anemia: Admission hemoglobin 13.7, continue iron supplementation. 10. Hx Tobacco Abuse: Encouraged continued cessation. 11. Hypertension: Continue home regimen including Lasix, isosorbide, lisinopril, metoprolol. 12. Hyperlipidemia: We will obtain FLP in a.m., not on statin therapy per current list. 13. Anxiety and depression/bipolar disorder/schizophrenia unclear type: Patient not on significant psychiatric regimen, will continue nightly as needed trazodone, encourage continued outpatient therapy follow-up. 14. GERD: We will continue patient on PPI. 15. DVT prophylaxis: SCDs, Lovenox. 16. CODE status: Patient NICOLE is her Sister Cindy Barr however she notes interest in changing this and is interested in talking to case management/social work during her admission, living will is not in place, encourage discussions with case management/social work as well to assist in setting this item up. Discussed CODE status at length including difference between FULL code, DNR-CCA and DNR-CC status. Following discussions about the differences in these status, requested Full Code status. Advanced Care Planning Face to Face Time: 16 minutes. OBSV E&M: 02219 Initial observation care L3 Procedures: 48018 Advncd Care Plan 30 Min
--- NOTE | 2020-07-18 22:59 | EKG12_ITS ---
Test Reason : CP Blood Pressure : / mmHG Vent. Rate : 090 BPM Atrial Rate : 090 BPM P-R Int : 148 ms QRS Dur : 076 ms QT Int : 392 ms P-R-T Axes : 046 017 059 degrees QTc Int : 479 ms Normal sinus rhythm Normal ECG Confirmed by TJ BARFIELD, GLORY ([id number]), clinical editor TAQUERIA CHAMBERLAIN ([id number]) on 07/23/2020 11:17:21 AM Referred By: DASHA Confirmed By:AL SPENCER MD
[2020-07-18] MEDS: Metoprolol Tartrate 25 MG Tablet PO (23:33)
[2020-07-18] MEDS: 0.9% Normal Saline 1,000 ML 100 ML IV (23:34)
[2020-07-18] MEDS: Morphine 2 MG/ML Syringe IV (23:34)
[2020-07-18] MEDS: 0.9% Saline Lock 10 ML Syringe IV (23:36)
[2020-07-18 23:44] LABS: Magnesium 1.9 mg/dL (1.6-2.6)
[2020-07-19] VITALS (11 sets, daily range): BP systolic 98–111; BP diastolic 51–60; PULSE 76–99; RESP 14–16; TEMP 36.6–37.2; O2SAT 95–99; BMI 23.8
[2020-07-19 00:34] LABS: Glucose 468 mg/dL (74-106)
[2020-07-19] MEDS: Insulin Lispro 100 UNIT/ML INSULN.PEN 20 UNIT SC (00:37)
[2020-07-19] MEDS: traZODone 50 MG Tablet PO ×2 (00:42→21:37)
[2020-07-19 00:46] LABS: Bedside Glucose 481 mg/dL (70-110)
[2020-07-19 05:24] LABS: Absolute Lymphocyte Count 3.62 X10^3/uL (0.83-4.51); Absolute Neutrophil Count 3.3 X10^3/uL (2.0-7.7); Basophil# 0.05 X10^3/uL; Basophil% 0.6 % (0-1); Eosinophils% 3.8 % (0-5); Hematocrit 36.5 % (37-47); Hemoglobin 12.4 g/dL (12.0-15.0); Lymphocyte # 3.62 X10^3/ul (4.0); Lymphocyte % 45.6 % (19-41); Mean Corpuscular Hgb 31.3 pg (27.0-32.0); Mean Corpuscular Volume 92.2 fL (81-99); Mean Platelet Vol. 10.5 fl (6.2-12.0); Monocyte# 0.59 X10^3/uL; Monocyte% 7.4 % (0-10); NRBC Flagged by Analyzer 0 % (0-5); Neutrophil # 3.33 X10^3/uL (2.7-7.7); Platelet Count 222 K/mm3 (150-450); RBC Distribution Width CV 12.2 % (11.6-14.6); RBC Distribution Width SD 41.1 fl (35.1-43.9); Red Blood Count 3.96 M/mm3 (4.2-5.4); White Blood Count 7.9 K/mm3 (4.4-11.0)
[2020-07-19] MEDS: Aspirin E.C. 81 MG Tablet PO (05:24)
[2020-07-19] MEDS: Clopidogrel Bisulfate 75 MG Tablet PO (05:25)
[2020-07-19 05:31] LABS: Bedside Glucose 102 mg/dL (70-110)
[2020-07-19 05:35] LABS: International Normalized Ratio 0.9
[2020-07-19 05:36] LABS: Partial Thromboplast Time 23.4 Seconds (24.1-36.2)
[2020-07-19 05:53] LABS: ALB/GLOB Ratio 1.1 RATIO (0.9-2.4); AST(SGOT) 17 U/L (15-37); Alanine Aminotransfer ALT/SGPT 25 U/L (13-56); Albumin, Serum 3.4 g/dL (3.2-5.0); Alkaline Phosphatase 63 U/L (45-117); Anion Gap 5 (5-15); BUN 15 mg/dL (7-18); BUN/Creat Ratio 18.6 RATIO (10-20); Calcium,Total 8.8 mg/dL (8.5-10.1); Chloride 111 mmol/L (98-107); Cholesterol 197 mg/dL (200); Creatinine, Serum 0.81 mg/dL (0.55-1.02); EST Glomerular Filtration Rate 75 mL/min (>60); Est Glom Filt Rate - Afr Amer 91 mL/min (>60); Estimated Creatinine Clearance 56.52 ml/min; Glucose 97 mg/dL (74-106); High Density Lipoprotein 47 mg/dL; Potassium 3.7 mmol/L (3.5-5.1); Protein, Total 6.4 g/dL (6.4-8.2); Sodium Level 140 mmol/L (136-145); Triglycerides 305 mg/dL; Very Low Density Lipoprotein 61 mg/dL (5-40)
--- NOTE | 2020-07-19 05:55 | NM_ITS ---
CLINICAL: 64 year old diabetic female with history of known coronary atherosclerosis, status post stent placement with current complaint of chest discomfort. REST-REGADENOSON 99m Tc SESTAMIBI MYOCARDIAL PERFUSION SPECT COMPARISON: None available FINDINGS: Following the intravenous administration of 12.0 mCi of 99m Tc sestamibi, the resting myocardial perfusion acquisitions demonstrate uniform radiopharmaceutical concentration throughout all left ventricular segments. The patient was administered intravenous regadenoson (0.4 mgm). Following the intravenous administration of 36.0 mCi of 99m Tc sestamibi, the post regadenoson images reveal likewise normal perfusion throughout all left ventricular myocardial segments. The post stress resting left ventricular ejection fraction is calculated to be > 70 % by gated SPECT technique. Wall motion and end systolic thickening are considered normal. NM/Nuclear Stress Test - Chemical IMPRESSION: 1. NORMAL post STENT REST-REGADENOSON STRESS 99m Tc SESTAMIBI MYOCARDIAL PERFUSION SPECT. A. No evidence of pharmacologically induced left ventricular ischemia. B. Preservation of resting left ventricular systolic function. (Karissa et al, J Nucl Med 37: 105P, 1995). Electronically Signed: Dany Carr DO at 11:44 EDT Tel , Service support ,
[2020-07-19 06:58] LABS: Hemoglobin A1c 12.4 % (3.8-5.6)
--- NOTE | 2020-07-19 10:31 | PCM.CONS.C ---
Problem List (1) Chest pain Status: Acute Qualifiers: Chest pain type: unspecified Qualified Code(s): R07.9 - Chest pain, unspecified Reason for Consult Date of Consultation: 07/19/20 Reason for Consultation: This patient known to have history of CAD,cabg and AVR. Cardiac consultation requested for evaluation of chest pain History of Present Illness: The patient is a 64 year old F patient seen and evaluated today at bedside along with the nursing staff Daughter was at bedside as well She had symptoms of chest pain for the last 2 days very atypical mainly in the epigastric area she did mention as well that it radiated to the left arm. No progression of her symptoms to be stable clinically today. Patient known to have history of CAD, aortocoronary bypass surgery and AVR done in Feb 15 2020, has been seen at that time by Dr. Quesada. Patient known to have history of diabetes, hypertension, she quit smoking. Cardiac examination essentially normal Review of the electrocardiogram revealed normal sinus rhythm She had a very mild elevation of cardiac troponin. She been evaluated further by nuclear stress test, nuclear images are pending There were no significant change in the electrocardiogram showed normal sinus on the Lexiscan nuclear stress test. I reviewed her current medication will continue the current treatment From cardiac standpoint if she has significant abnormality of the nuclear stress test then recommendation would be to evaluate her by cardiac catheterization which can be set up on Tuesday. We will maximize medical therapy will continue on heparin aspirin statin and beta-elder. Past Medical History Allergies/Adverse Reactions: Allergies Penicillins Allergy (Verified 07/18/20 17:25) Hives hydrocodone bitartrate [From Vicodin] Adverse Reaction (Verified 07/18/20 17:25) Vomiting ibuprofen Adverse Reaction (Verified 07/18/20 17:25) Vomiting Home Medications: Ambulatory Orders Medication Instructions Recorded Aspirin [Adult Low Dose Aspirin EC] 81 mg PO DAILY 02/04/16 Metoprolol Tartrate [Lopressor 25 mg PO BID 06/23/17 (beta elder)] Nitroglycerin (INPATIENT USE) 0.4 mg SUBLINGUAL Q5M PRN 09/28/17 [Nitrostat] Furosemide [Lasix] 40 mg PO DAILY 11/17/18 Lisinopril 5 mg PO DAILY 11/17/18 Metformin HCl 1,000 mg PO BID 11/17/18 Cholecalciferol (Vitamin D3) 5,000 units PO DAILY 10/30/19 [Vitamin D3] Clopidogrel Bisulfate [Clopidogrel] 75 mg PO DAILY 10/30/19 Glimepiride [Amaryl] 4 mg PO DAILY 10/30/19 traZODone [Desyrel] 50 mg PO QHS PRN 03/07/20 Insulin Human 70/30 [Novolog Mix 10 units SUBCUT BIDCM 05/18/20 70-30 Flexpen Syrn] Ondansetron [Zofran Odt] 4 mg PO Q8H PRN PRN #10 tab 06/08/20 omeprazole 40 mg capsule,delayed 40 mg PO DAILY PRN cap 07/16/20 release Ferrous Sulfate [Iron] 65 mg PO DAILY 07/18/20 Gabapentin [Neurontin] 300 mg PO BIDCM 07/18/20 Isosorbide Mononitrate [Isosorbide 30 mg PO DAILY 07/18/20 Mononitrate ER] Past Medical History (Chronic Problems): Chronic Problems (Last Reviewed 07/16/20 @ 11:46 by Monster Francois PHOTOGRAPHIC EQUIPMENT TECHNICIAN, PHOTOGRAPHIC EQUIPMENT TECHNICIAN-C) COPD (chronic obstructive pulmonary disease) (Chronic) Diabetes mellitus type 2, uncontrolled (Chronic) Fe deficiency anemia (Chronic) Anxiety and depression (Chronic) Former tobacco use (Chronic) History of aortic valve replacement with bioprosthetic valve (Chronic 01/25/20) AVR w/ # 21 Hatch Pericardial Valve and root enlargement using a pericardial patch 01/25/2020 Atherosclerotic heart disease of [place] coronary artery without angina pectoris (Chronic) Essential (primary) hypertension (Chronic) Hyperlipidemia (Chronic) Nicotine dependence (Chronic) Surgical History: angioplasty, appendectomy, cholecystectomy, hysterectomy, - - CABG, mitral valve replacement, cardiac stents Psychiatric History: Anxiety, Bipolar, Depression MANAGER HOME IMPROVEMENT History: No pertinent MANAGER HOME IMPROVEMENT history - *Family History Maternal Family History: Family History (Last Updated 07/16/20 @ 11:47 by Monster Francois PHOTOGRAPHIC EQUIPMENT TECHNICIAN, PHOTOGRAPHIC EQUIPMENT TECHNICIAN-C) Father Heart disease Hypertension Diabetes Hyperlipidemia Mother Diabetes Heart disease Hypertension Hyperlipidemia Brother Heart disease Sister Diabetes Cancer Hyperlipidemia History Items: Cancer - Uterine cancer, Diabetes, High Cholesterol, Heart Disease, Hypertension Paternal Family History: Family History (Last Updated 07/16/20 @ 11:47 by Monster Francois PHOTOGRAPHIC EQUIPMENT TECHNICIAN, PHOTOGRAPHIC EQUIPMENT TECHNICIAN-C) Father Heart disease Hypertension Diabetes Hyperlipidemia Mother Diabetes Heart disease Hypertension Hyperlipidemia Brother Heart disease Sister Diabetes Cancer Hyperlipidemia History Items: Diabetes, High Cholesterol, Heart Disease, Hypertension Sibling Family History: Family History (Last Updated 07/16/20 @ 11:47 by Monster Francois PHOTOGRAPHIC EQUIPMENT TECHNICIAN, PHOTOGRAPHIC EQUIPMENT TECHNICIAN-C) Father Heart disease Hypertension Diabetes Hyperlipidemia Mother Diabetes Heart disease Hypertension Hyperlipidemia Brother Heart disease Sister Diabetes Cancer Hyperlipidemia History Items: Diabetes, Heart Disease, Hypertension Lives: Spouse/ Significant Other Smoking Status: Former smoker - Patient quit cigarette tobacco usage approximately 1 year prior with prior to this 1 pack/day since she been a teenager. Tobacco Use: Non-smoker Alcohol: None Drugs: None Objective: Vital Signs Temp Pulse Resp BP Pulse Ox 97.8 F 81 16 103/60 99 07/19/20 05:15 07/19/20 07:00 07/19/20 05:15 07/19/20 05:15 07/19/20 07:13 Oxygen Delivery Method Room Air Weight: 134 lb 14.766 oz Body Mass Index (BMI) 23.8 Finger Stick Blood Glucose 377 Intake and Output for Last 24 Hours 07/17/20 07/18/20 07/19/20 23:59 23:59 23:59 Intake Total 996.67 / 996.67 Balance 996.67 / 996.67 07/18/20 18:15: WBC 7.8, RBC 4.40, Hgb 13.7, Hct 40.1, MCV 91.1, MCH 31.1, MCHC 34.2, Plt Count 228, MPV 10.8, Immature Gran % (Auto) 0.500, Neut % (Auto) 55.2, Lymph % (Auto) 34.5, Jewell % (Auto) 6.1, Eos % (Auto) 3.1, Baso % (Auto) 0.6, Absolute Neuts (auto) 4.3, Nucleated RBC % 0 07/18/20 18:15: D-Dimer Quant (PE/DVT) 0.53 H* 07/18/20 18:15: Sodium 136, Potassium 3.7, Chloride 104, Carbon Dioxide 23.0, Anion Gap 9, BUN 11, Creatinine 0.94, Est GFR (MDRD) Af Amer 77, Est GFR (MDRD) Non-Af 63, BUN/Creatinine Ratio 11.8, Glucose 377 H, Calcium 9.0, Troponin I 0.096 H 07/18/20 23:20: Magnesium 1.9, Troponin I 0.077 H 07/18/20 23:20: Glucose 468 H* 07/19/20 02:12: Troponin I 0.067 H 07/19/20 05:18: WBC 7.9, RBC 3.96 L, Hgb 12.4, Hct 36.5 L, MCV 92.2, MCH 31.3, MCHC 34.0, Plt Count 222, MPV 10.5, Immature Gran % (Auto) 0.600, Neut % (Auto) 42.0 L, Lymph % (Auto) 45.6 H, Jewell % (Auto) 7.4, Eos % (Auto) 3.8, Baso % (Auto) 0.6, Absolute Neuts (auto) 3.3, Nucleated RBC % 0 07/19/20 05:18: PT 12.0, INR 0.9, APTT 23.4 L 07/19/20 05:18: Sodium 140, Potassium 3.7, Chloride 111 H, Carbon Dioxide 24.0, Anion Gap 5, BUN 15, Creatinine 0.81, Est GFR (MDRD) Af Amer 91, Est GFR (MDRD) Non-Af 75, BUN/Creatinine Ratio 18.6, Glucose 97, Calcium 8.8, Total Bilirubin 0.30, Triglycerides 305 H, Cholesterol 197, LDL Cholesterol 89, VLDL Cholesterol 61 H, HDL Cholesterol 47 07/19/20 05:18: Hemoglobin A1c 12.4 H 07/19/20 05:18: Troponin I 0.047 H Rhythm: EKG: ECHO: Stress Test: Cardiac Cath: PCI: CT Surgery: Holter monitor: EPS: PPM: CXR: Chest CT Scan: Assessment/Plan Cardiac care plan discussed in detail Explained to the patient, daughter and nursing staff We will continue current treatment We reviewed the results of the stress test and discuss further plan At present time recommendation would be to maximize medical therapy. I will check cardiac markers/troponin in the morning
[2020-07-19] MEDS: Furosemide 40 MG Tablet PO (11:03)
[2020-07-19] MEDS: Ferrous Sulfate 325 MG Tablet PO (11:03)
[2020-07-19] MEDS: Lisinopril 5 MG Tablet PO (11:04)
[2020-07-19] MEDS: Isosorbide Mononitrate 30 MG Tablet PO (11:04)
[2020-07-19] MEDS: Metoprolol Tartrate 25 MG Tablet PO (11:04)
[2020-07-19] MEDS: Gabapentin 300 MG Capsule PO ×2 (11:05→17:14)
[2020-07-19] MEDS: Insulin Lispro 100 UNIT/ML INSULN.PEN SC ×3 (11:07→21:27)
[2020-07-19 11:16] LABS: Bedside Glucose 254 mg/dL (70-110)
--- NOTE | 2020-07-19 12:08 | PCM.NTREPORT ---
Nutrition Therapy Report - History Nutrition Services has been consulted to:: Manage nutrient details of diet order Current diet / nutrition support order:: NPO for stress test - Anthropometric Measurements Height:: 5 ft 3 in Weight:: 61.2 kg Body Mass Index (BMI):: 23.8 - Relevant Labs Relevant Labs:: RBC 3.96 M/mm3 (4.2-5.4) L 07/19/20 05:18 Hct 36.5 % (37-47) L 07/19/20 05:18 Neut % (Auto) 42.0 % (47-70) L 07/19/20 05:18 Lymph % (Auto) 45.6 % (19-41) H 07/19/20 05:18 APTT 23.4 Seconds (24.1-36.2) L 07/19/20 05:18 D-Dimer Quant (PE/DVT) 0.53 FEU/ug/m (0.27-0.49) H* 07/18/20 18:15 Chloride 111 mmol/L (98-107) H 07/19/20 05:18 Glucose 468 mg/dL (74-106) H* 07/18/20 23:20 Hemoglobin A1c 12.4 % (3.8-5.6) H 07/19/20 05:18 Troponin I 0.047 ng/mL (<0.045) H 07/19/20 05:18 Triglycerides 305 mg/dL (-199) H 07/19/20 05:18 VLDL Cholesterol 61 mg/dL (5-40) H 07/19/20 05:18 - Assessment Food / Nutrition-Related History:: Pt reports UBW~170 lbs about 2 years ago (calculated~20% wt loss x 2 years); but, per EMR reported UBW~145 lbs approx. 3-4 months (calculated~6-7% unintentional wt loss) which is significant for malnutrition. Pt used to have good PO/jose but, just doesn't feel like eating now x past 1-3 mos & not sure why. Denies difficulty chewing/swallowing despite visibly edentulous. Pt has been NPO for stress test so, intake to be established. Pt reports monitoring blood glucose at home with readings~120-130's--? accuracy of report as HgbA1C noted 12.4% this admit indicating overall very poorly controlled blood glucose. ? declining wt due to poorly controlled blood sugars; pt reports has been educated on diet/DM in the past and declines additional teaching at this time. 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 +NFPA---pt appears to have mild facial & clavicle muscle/fat wasting. - Nutrition Diagnosis Problem / Etiology / Signs & Symptoms (PES):: Moderate pro/mounika malnutrition of chronic disease related to onging poor appetite & possibly poorly managed blood glucose levels as evidenced by ~20% wt loss x 2 years/6-7% wt loss x 3-4 months, ongoing poor intake x past 1 month and +NFPA revealing mild to moderate muscle/fat wasting in face & upper body. Evidence of Malnutrition Exists:: Yes Moderate PCM:: Chronic Illness - Nutrition Intervention Nutrition Prescription:: Estimated nutrition needs for maintenance~6307-2197 kcal & ~60-65 gm protein per day. - Food / Nutrient Delivery Interventions Summary of nutrition intervention:: Pt willing to try 240 ml strawberry Glucerna Shake BID w/ meals as tolerated to prevent further wt loss & replete protein. Nutrition support ordered as / adjusted to:: None at this time. Nutrition education provided?: Yes - MNT Monitoring Further MNT monitoring and evaluation required?: Yes MNT Follow-up in:: 3-5 days
--- NOTE | 2020-07-19 12:15 | PN_ITS ---
<Nguyen Price CIRCUIT WALKER - Last Filed: 07/19/20 12:25> Patient Problems: Active and Suspected Problems (Last Reviewed 07/16/20 @ 11:46 by Monster Francois CIRCUIT WALKER, CIRCUIT WALKER-C) Chest pain (Acute) Subjective: Patient seen and examined. Patient states chest pain is improved however continues to have mild midsternal chest discomfort. Denies other associated symptoms. Denies further diarrhea since admission. - Physical Exam Vitals/I&O's: Vital Signs Temp Pulse Resp BP Pulse Ox 98.6 F 77 14 111/59 L 99 07/19/20 11:01 07/19/20 11:04 07/19/20 11:01 07/19/20 11:01 07/19/20 11:01 Oxygen Delivery Method Room Air Weight: 134 lb 14.766 oz Body Mass Index (BMI) 23.8 Finger Stick Blood Glucose 377 Intake and Output for Last 24 Hours 07/17/20 07/18/20 07/19/20 23:59 23:59 23:59 Intake Total 996.67 / 996.67 Balance 996.67 / 996.67 General: Alert, Oriented x3, Cooperative HEENT: Atraumatic, PERRLA, EOMI, Normocephalic Neck: Supple, No JVD, Negative Carotid Bruits Lungs: Clear to auscultation, Normal air movement Cardiovascular: Regular rate, No murmurs Abdomen: Bowel Sounds Present, Soft, Non Tender Extremities: No edema, Capillary Refill Less than 3 Seconds Skin: No rashes, No breakdown Musculoskeletal: No Tenderness to Palpation of Joints or Extremities Neurological: Cranial nerves II-XII grossly intact, Neuro grossly intact Psych/Mental Status: Normal Affect, Appropriate Laboratory Results 07/18/20 18:15: WBC 7.8, RBC 4.40, Hgb 13.7, Hct 40.1, MCV 91.1, MCH 31.1, MCHC 34.2, RDW Std Deviation 41.1, RDW Coeff of Alam 12.2, Plt Count 228, MPV 10.8, Immature Gran % (Auto) 0.500, Neut % (Auto) 55.2, Lymph % (Auto) 34.5, Cheyenne % (Auto) 6.1, Eos % (Auto) 3.1, Baso % (Auto) 0.6, Absolute Neuts (auto) 4.3, Absolute Lymphs (auto) 2.67, Nucleated RBC % 0 07/18/20 18:15: D-Dimer Quant (PE/DVT) 0.53 H* 07/18/20 18:15: Sodium 136, Potassium 3.7, Chloride 104, Carbon Dioxide 23.0, Anion Gap 9, BUN 11, Creatinine 0.94, Estim Creat Clear Calc 48.70, Est GFR (MDRD) Af Amer 77, Est GFR (MDRD) Non-Af 63, BUN/Creatinine Ratio 11.8, Glucose 377 H, Calcium 9.0, Troponin I 0.096 H 07/18/20 20:07: COVID-19 (RIKKI) Not Detected 07/18/20 23:20: Magnesium 1.9, Troponin I 0.077 H 07/18/20 23:20: Glucose 468 H* 07/18/20 23:20: POC Glucose 481 H* 07/19/20 02:12: Troponin I 0.067 H 07/19/20 05:18: WBC 7.9, RBC 3.96 L, Hgb 12.4, Hct 36.5 L, MCV 92.2, MCH 31.3, MCHC 34.0, RDW Std Deviation 41.1, RDW Coeff of Alma 12.2, Plt Count 222, MPV 10.5, Immature Gran % (Auto) 0.600, Neut % (Auto) 42.0 L, Lymph % (Auto) 45.6 H, Cheyenne % (Auto) 7.4, Eos % (Auto) 3.8, Baso % (Auto) 0.6, Absolute Neuts (auto) 3.3, Absolute Lymphs (auto) 3.62, Nucleated RBC % 0 07/19/20 05:18: PT 12.0, INR 0.9, APTT 23.4 L 07/19/20 05:18: Sodium 140, Potassium 3.7, Chloride 111 H, Carbon Dioxide 24.0, Anion Gap 5, BUN 15, Creatinine 0.81, Estim Creat Clear Calc 56.52, Est GFR (MDRD) Af Amer 91, Est GFR (MDRD) Non-Af 75, BUN/Creatinine Ratio 18.6, Glucose 97, Calcium 8.8, Total Bilirubin 0.30, AST 17, ALT 25, Alkaline Phosphatase 63, Total Protein 6.4, Albumin 3.4, Globulin 3.0, Albumin/Globulin Ratio 1.1, Triglycerides 305 H, Cholesterol 197, LDL Cholesterol 89, VLDL Cholesterol 61 H, HDL Cholesterol 47 07/19/20 05:18: Hemoglobin A1c 12.4 H 07/19/20 05:18: Troponin I 0.047 H 07/19/20 05:24: POC Glucose 102 07/19/20 11:06: POC Glucose 254 H Current Medications Acetaminophen (Tylenol) 650 mg PO Q6H PRN PRN PRN Reason: Pain Score 1-10/Temp > 100.7 F Al Hydroxide/Mg Hydroxide (Mylanta Ii) 30 ml PO Q6H PRN PRN PRN Reason: Gastric Burning Albuterol Sulfate (Ventolin Aerosols) 2.5 mg INHALATION Q2H PRN PRN PRN Reason: Dyspnea, wheezing Aspirin (Ecotrin) 81 mg PO DAILY [facility] Last Admin: 07/19/20 05:24 Dose: 81 mg Documented by: Clopidogrel Bisulfate (Plavix) 75 mg PO DAILY [facility] Last Admin: 07/19/20 05:25 Dose: 75 mg Documented by: Dextrose (D50w Syringe) 0 gm IV X1 PRN; Protocol PRN Reason: Hypoglycemia Enoxaparin Sodium (Lovenox) 40 mg SC DAILY [facility] Ferrous Sulf[facility] ([facility] S[facility]) [facility] Last Admin: 07/19/20 11:03 Dose: 325 mg Documented by: Furosemide (Lasix) 40 mg PO DAILY [facility] Last Admin: 07/19/20 11:03 Dose: 40 mg Documented by: Gabapentin ([facility]urontin) [facility] Last Admin: 07/19/20 11:05 Dose: 300 mg Documented by: Glucagon () 1 mg IM .X1 PRN PRN Reason: Hypoglycemia Guaifenesin (Robitussin) 20 ml PO Q4H PRN PRN PRN Reason: COUGH Sodium Chloride () 1,000 mls @ 100 mls/hr IV .Q10H [facility] Last Infusion: 07/19/20 11:09 Dose: 100 mls/hr Documented by: Insulin Human Lispro (Humalog Kwikpen (Bkc)) 0 unit SC ACHS [facility]; Protocol Last Admin: 07/19/20 11:07 Dose: 6 units Documented by: Insulin Lispro Protam/Lispro Human (Humalog Mix 75-25 Kwikpen (Bkc)) [facility] Last Admin: 07/19/20 11:03 Dose: Not Given Documented by: Isosorbide Mononitrate (Imdur) 30 mg PO DAILY [facility] Last Admin: 07/19/20 11:04 Dose: 30 mg Documented by: Lisinopril (Zestril) 5 mg PO DAILY [facility] Last Admin: 07/19/20 11:04 Dose: 5 mg Documented by: Magnesium Hydroxide (Milk Of Magnesia) 30 ml PO DAILY PRN PRN PRN Reason: Constipation Melatonin (Melatonin) 3 mg PO QHS PRN PRN PRN Reason: INSOMNIA Metoprolol Tartrate (Lopressor (Beta Ban)) 25 mg PO BID [facility] Last Admin: 07/19/20 11:04 Dose: 25 mg Documented by: Morphine Sulfate () 2 mg IV Q3H PRN PRN PRN Reason: Pain Score 6-10 Last Admin: 07/18/20 23:34 Dose: 2 mg Documented by: Nitroglycerin (Nitrostat) 0.4 mg SUBLINGUAL Q5M PRN PRN Reason: CARDIAC/CHEST PAIN Ondansetron HCl (Zofran) 4 mg IV Q8H PRN PRN PRN Reason: NAUSEA/VOMITING Oxycodone HCl (Oxyir) 5 mg PO Q4H PRN PRN PRN Reason: Pain Score 4-5 Pantoprazole Sodium (Protonix) 40 mg PO DAILY PRN PRN PRN Reason: HEARTBURN Prochlorperazine Edisylate (Compazine Iv) 5 mg IV Q4H PRN PRN PRN Reason: Breakthrough Nausea/Vomiting Psyllium Hydrophilic Mucilloid (Metamucil) 1 packet PO DAILY PRN PRN PRN Reason: Constipation Senna/Docusate Sodium (Senokot-S, Elsa-Colace) 2 tablet PO BID PRN PRN PRN Reason: Constipation Sodium Chloride () 10 - 40 ml IV UD PRN PRN Reason: SALINE FLUSH Last Admin: 07/18/20 23:36 Dose: 10 ml Documented by: Sodium Chloride () 10 - 40 ml IV UD PRN PRN Reason: SALINE FLUSH Throat Lozenges (Cepacol Sore Throat Lozenge) 1 lozenge MUCOUS MEM Q2H PRN PRN PRN Reason: SORE THROAT Trazodone HCl (Desyrel) 50 mg PO QHS PRN PRN PRN Reason: SLEEP Last Admin: 07/19/20 00:42 Dose: 50 mg Documented by: Medical Necessity - Tobacco Use Smoking Status: Former smoker - Patient quit cigarette tobacco usage approximately 1 year prior with prior to this 1 pack/day since she been a teenager. Tobacco Use: Non-smoker Assessment/Plan All Active Problems (Last Reviewed 07/16/20 @ 11:46 by Monster Francois NP, CIRCUIT WALKER-C) Chest pain (Acute) History of coronary artery stent placement (Resolved 03/15/17) H/O coronary artery bypass surgery (Resolved 01/25/20) Acute hyperglycemia (Resolved) Bipolar disorder (Resolved) Chest pain (Resolved) Hyperglycemia (Resolved) VTE (venous thromboembolism) (Resolved) 1. Chest pain, abnormal troponin-EKG without evidence of ischemia. Chest x-ray unremarkable. Cardiology consulted. Patient underwent nuclear stress test which showed no evidence of ischemia. Continue aspirin, Plavix. Per cardiology, plan for repeat troponin in a.m., continue medical management. Echocardiogram ordered. 2. Nausea, vomiting, diarrhea-unclear etiology. Currently resolved. COVID negative. 3. CAD with history of PCI-continue aspirin, Plavix, metoprolol, lisinopril. Initiated on low-dose statin. 4. Valvular heart disease-history of aortic valve replacement. 5. Type 2 diabetes mellitus with hyperglycemia-Hemoglobin A1c 12.4%. Continue home oral and insulin regimen. Blood glucose 481 on admission, now improved. Accu-Cheks with sliding scale insulin. 6. Hypertension-stable, continue lisinopril, metoprolol, Lasix. 7. GERD-continue Protonix, Zantac. 8. CAD with history of stents-continue aspirin, Plavix, beta-ban, lisinopril. 9. Tobacco dependence-encouraged cessation. 10. Chronic COPD-no acute exacerbation. 11. Hyperlipidemia-not on statin. Will initiate low-dose statin. 12. History of CVA-continue aspirin, Plavix. Added on statin. DVT prophylaxis-Lovenox subcu This patient was seen by HEATHER BarnesC under the supervision of Dr. Anna. <Sandeep Anna - Last Filed: 07/19/20 14:03> Subjective: Patient admitted with chest pain which got resolved after admission but again had chest pressure, lower sternum/epigastrium with radiation to left upper extremity during the stress test. Respiratory shortness of breath. She feels very tired and obviously short of breath on exam. Objective: Physical exam General: Alert, Oriented x3, Cooperative HEENT: Atraumatic, PERRLA, EOMI, Normocephalic Oral: No Gingival or Mucosal Lesions/ Ulcerations Neck: Supple, No JVD, Negative Carotid Bruits Lungs: Air entry diminished in bilateral lung bases. No crepitation/rhonchi Cardiovascular: Bioprosthetic aortic valve. Grade 2/6 ejection systolic murmur and aortic click. Pansystolic murmur over cardiac apex. Normal S1-S2, regular rhythm, Abdomen: Bowel Sounds Present, Soft, Non Tender, Non-Distended : No renal angle tenderness. No suprapubic tenderness. Extremities: No edema, Capillary Refill Less than 3 Seconds Skin: No rashes, No breakdown Musculoskeletal: No Tenderness to Palpation of Joints or Extremities Neurological: Cranial nerves II-XII grossly intact, Deep Tendon Reflexes 2+/4 and Symmetrical, Neuro grossly intact Psych/Mental Status: Normal Affect, Appropriate. - Physical Exam Vitals/I&O's: Vital Signs Temp Pulse Resp BP Pulse Ox 98.6 F 77 14 111/59 L 99 07/19/20 11:01 07/19/20 11:04 07/19/20 11:01 07/19/20 11:01 07/19/20 11:01 Oxygen Delivery Method Room Air Weight: 134 lb 14.766 oz Body Mass Index (BMI) 23.8 Finger Stick Blood Glucose 377 Intake and Output for Last 24 Hours 07/17/20 07/18/20 07/19/20 23:59 23:59 23:59 Intake Total 1171.67 / 1171.67 Balance 1171.67 / 1171.67 Laboratory Results 07/18/20 18:15: WBC 7.8, RBC 4.40, Hgb 13.7, Hct 40.1, MCV 91.1, MCH 31.1, MCHC 34.2, RDW Std Deviation 41.1, RDW Coeff of Alma 12.2, Plt Count 228, MPV 10.8, Immature Gran % (Auto) 0.500, Neut % (Auto) 55.2, Lymph % (Auto) 34.5, Cheyenne % (Auto) 6.1, Eos % (Auto) 3.1, Baso % (Auto) 0.6, Absolute Neuts (auto) 4.3, Absolute Lymphs (auto) 2.67, Nucleated RBC % 0 07/18/20 18:15: D-Dimer Quant (PE/DVT) 0.53 H* 07/18/20 18:15: Sodium 136, Potassium 3.7, Chloride 104, Carbon Dioxide 23.0, Anion Gap 9, BUN 11, Creatinine 0.94, Estim Creat Clear Calc 48.70, Est GFR (MDRD) Af Amer 77, Est GFR (MDRD) Non-Af 63, BUN/Creatinine Ratio 11.8, Glucose 377 H, Calcium 9.0, Troponin I 0.096 H 07/18/20 20:07: COVID-19 (RIKKI) Not Detected 07/18/20 23:20: Magnesium 1.9, Troponin I 0.077 H 07/18/20 23:20: Glucose 468 H* 07/18/20 23:20: POC Glucose 481 H* 07/19/20 02:12: Troponin I 0.067 H 07/19/20 05:18: WBC 7.9, RBC 3.96 L, Hgb 12.4, Hct 36.5 L, MCV 92.2, MCH 31.3, MCHC 34.0, RDW Std Deviation 41.1, RDW Coeff of Alma 12.2, Plt Count 222, MPV 10.5, Immature Gran % (Auto) 0.600, Neut % (Auto) 42.0 L, Lymph % (Auto) 45.6 H, [place]yenne % (Auto) 7.4, Eos % (Auto) 3.8, Baso % (Auto) 0.6, Absolute Neuts (auto) 3.3, Absolute Lymphs (auto) 3.62, Nucleated RBC % 0 07/19/20 05:18: PT 12.0, INR 0.9, APTT 23.4 L 07/19/20 05:18: Sodium 140, Potassium 3.7, Chloride 111 H, Carbon Dioxide 24.0, Anion Gap 5, BUN 15, Creatinine 0.81, Estim Creat Clear Calc 56.52, Est GFR (MDRD) Af Amer 91, Est GFR (MDRD) Non-Af 75, BUN/Creatinine Ratio 18.6, Glucose 97, Calcium 8.8, Total Bilirubin 0.30, AST 17, ALT 25, Alkaline Phosphatase 63, Total Protein 6.4, Albumin 3.4, Globulin 3.0, Albumin/Globulin Ratio 1.1, Triglycerides 305 H, Cholesterol 197, LDL Cholesterol 89, VLDL Cholesterol 61 H, HDL Cholesterol 47 07/19/20 05:18: Hemoglobin A1c 12.4 H 07/19/20 05:18: Troponin I 0.047 H 07/19/20 05:24: POC Glucose 102 07/19/20 11:06: POC Glucose 254 H Current Medications Acetaminophen (Tylenol) 650 mg PO Q6H PRN PRN PRN Reason: Pain Score 1-10/Temp > 100.7 F Al Hydroxide/Mg Hydroxide (Mylanta Ii) 30 ml PO Q6H PRN PRN PRN Reason: Gastric Burning Albuterol Sulfate (Ventolin Aerosols) 2.5 mg INHALATION Q2H PRN PRN PRN Reason: Dyspnea, wheezing Aspirin (Ecotrin) 81 mg PO DAILY [facility] Last Admin: 07/19/20 05:24 Dose: 81 mg Documented by: Atorvastatin Calcium (Lipitor) 10 mg PO QHS [facility] Clopidogrel Bisulfate (Plavix) 75 mg PO DAILY [facility] Last Admin: 07/19/20 05:25 Dose: 75 mg Documented by: Dextrose (D50w Syringe) 0 gm IV X1 PRN; Protocol PRN Reason: Hypoglycemia Enoxaparin Sodium (Lovenox) 40 mg SC DAILY [facility] Last Admin: 07/19/20 12:55 Dose: 40 mg Documented by: Ferrous Sulfate (Ferrous Sulfate) [facility] Last Admin: 07/19/20 11:03 Dose: 325 mg Documented by: Furosemide (Lasix) 40 mg PO DAILY [facility] Last Admin: 07/19/20 11:03 Dose: 40 mg Documented by: Gabapentin (Neurontin) [facility] Last Admin: 07/19/20 11:05 Dose: 300 mg Documented by: Glucagon () 1 mg IM .X1 PRN PRN Reason: Hypoglycemia Guaifenesin (Robitussin) 20 ml PO Q4H PRN PRN PRN Reason: COUGH Sodium Chloride () 1,000 mls @ 100 mls/hr IV .Q10H [facility] Last Admin: 07/19/20 12:54 Dose: 100 mls/hr Documented by: Insulin Human Lispro (Humalog Kwikpen (Bkc)) 0 unit SC ACHS [facility]; Protocol Last Admin: 07/19/20 11:07 Dose: 6 units Documented by: Insulin Lispro Protam/Lispro Human (Humalog Mix 75-25 Kwikpen (Bk)) [facility] Last Admin: 07/19/20 11:03 Dose: Not Given Documented by: Isosorbide Mononitrate (Imdur) 30 mg PO DAILY [facility] Last Admin: 07/19/20 11:04 Dose: 30 mg Documented by: Lisinopril (Zestril) 5 mg PO DAILY [facility] Last Admin: 07/19/20 11:04 Dose: 5 mg Documented by: Magnesium Hydroxide (Milk Of Magnesia) 30 ml PO DAILY PRN PRN PRN Reason: Constipation Melatonin (Melatonin) 3 mg PO QHS PRN PRN PRN Reason: INSOMNIA Metoprolol Tartrate (Lopressor (Beta Ban)) 25 mg PO BID [facility] Last Admin: 07/19/20 11:04 Dose: 25 mg Documented by: Morphine Sulfate () 2 mg IV Q3H PRN PRN PRN Reason: Pain Score 6-10 Last Admin: 07/18/20 23:34 Dose: 2 mg Documented by: Nitroglycerin (Nitrostat) 0.4 mg SUBLINGUAL Q5M PRN PRN Reason: CARDIAC/CHEST PAIN Ondansetron HCl (Zofran) 4 mg IV Q8H PRN PRN PRN Reason: NAUSEA/VOMITING Oxycodone HCl (Oxyir) 5 mg PO Q4H PRN PRN PRN Reason: Pain Score 4-5 Pantoprazole Sodium (Protonix) 40 mg PO DAILY PRN PRN PRN Reason: HEARTBURN Prochlorperazine Edisylate (Compazine Iv) 5 mg IV Q4H PRN PRN PRN Reason: Breakthrough Nausea/Vomiting Psyllium Hydrophilic Mucilloid (Metamucil) 1 packet PO DAILY PRN PRN PRN Reason: Constipation Senna/Docusate Sodium (Senokot-S, Elsa-Colace) 2 tablet PO BID PRN PRN PRN Reason: Constipation Sodium Chloride () 10 - 40 ml IV UD PRN PRN Reason: SALINE FLUSH Last Admin: 07/18/20 23:36 Dose: 10 ml Documented by: Sodium Chloride () 10 - 40 ml IV UD PRN PRN Reason: SALINE FLUSH Throat Lozenges (Cepacol Sore Throat Lozenge) 1 lozenge MUCOUS MEM Q2H PRN PRN PRN Reason: SORE THROAT Trazodone HCl (Desyrel) 50 mg PO QHS PRN PRN PRN Reason: SLEEP Last Admin: 07/19/20 00:42 Dose: 50 mg Documented by: Assessment/Plan This patient was seen in conjunction with Nguyen ENG. I have independently interviewed and examined the patient and reviewed pertinent history, examination findings, laboratory and plan of management. I have reviewed the note and agree with the documented findings with the few additional points. In brief, patient is a 64-year-old question female with history of coronary artery disease status post CABG and bioprosthetic aortic valve, current PCI, last stent in March 2017. Patient has mildly elevated troponin 0 0.096, trending down, last was 0.047. Patient had a stress test today which showed no evidence of ischemia. 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 Continue aspirin, Plavix, metoprolol and atorvastatin. Plan for repeat troponin tomorrow a.m. Fasting for shows elevated triglycerides 305, LDL 89. Atorvastatin increased to 40 mg daily. Rest of the comorbidities as mentioned above. I have discussed my assessment with Nguyen ENG and orders have been reviewed. Inpatient E&M: 03000 Subs Hosp L2
--- NOTE | 2020-07-19 12:15 | ECHOD_ITS ---
Reason For Study: S/P CABG Procedure This was a 2D Doppler, Color Flow transthoracic echocardiogram. Exam performed portable in patient room. Left Ventricle Normal left ventricle. Left ventricular systolic function is normal. EF 55-60%. Right Ventricle Normal right ventricle. Atria Normal left atrium. Normal right atrium. Normal atrial septum. Mitral Valve There is mild to moderate mitral annular calcification. Thickness of anterior MV leaflet. Mild (1+) mitral valve insufficiency. Tricuspid Valve Normal tricuspid valve. Trivial tricuspid valve insufficiency. Normal pulmonary artery pressure. Aortic Valve Bioprosthetic aortic valve. Pulmonic Valve The pulmonic valve is not well visualized. Great Vessels Normal aortic root. Normal inferior vena cava. Inferior vena cava collapse with respiration. Pericardium/Pleural No pericardial effusion. MMode/2D Measurements & Calculations RVDd: 2.6 cm LVOT diam: 2.0 cm Ao root diam: 3.0 cm LVOT area: 3.0 cm2 LAV(MOD-bp): 37.7 ml LA dimension(2D): 4.0 cm LA A4 area: 14.5 cm2 LAV(MOD-bp) Indexed: 23.2 ml/m2 LAV(MOD-sp2): 39.6 ml LAV(MOD-sp4): 35.4 ml RA A4 area: 9.3 cm2 Time Measurements MV dec time: 0.22 sec Doppler Measurements & Calculations MV E max chris: 86.1 cm/sec Lat Peak E' Chris: 10.4 cm/sec Med Peak E' Chris: 7.0 cm/sec MV A max chris: 74.8 cm/sec E/E' lat: 8.3 E/E' med: 12.2 MV E/A: 1.2 MV V2 max: 96.1 cm/sec Ao V2 max: 216.5 cm/sec LV V1 max: 121.8 cm/sec MV max P.7 mmHg Ao max P.8 mmHg LV V1 max P.9 mmHg MV V2 mean: 63.3 cm/sec Ao V2 mean: 153.9 cm/sec LV V1 mean P.4 mmHg MV mean P.7 mmHg Ao mean P.6 mmHg LV V1 mean: 86.3 cm/sec MV V2 VTI: 23.1 cm Ao V2 VTI: 45.9 cm LV V1 VTI: 25.9 cm MVA(VTI): 3.4 cm2 ABEL(I,D): 1.7 cm2 ABEL(V,D): 1.7 cm2 SV(LVOT): 77.4 ml TR max chris: 256.9 cm/sec MV P1/2t-pr_phl: 50.5 msec TR max P.4 mmHg Interpretation Summary Left ventricular systolic function is normal. EF 55-60% Thickness of anterior MV leaflet Mild (1+) mitral valve insufficiency. Ordering Physician: Dharmesh Ron Performed By: Alem Scott, CHUYITA, RVT
[2020-07-19] MEDS: 0.9% Normal Saline 1,000 ML 100 ML IV ×2 (12:54→23:13)
[2020-07-19] MEDS: Enoxaparin 40 MG/0.4 ML Syringe SC (12:55)
[2020-07-19] MEDS: Ondansetron 4 MG/2 ML Vial IV (14:52)
--- NOTE | 2020-07-19 15:55 | CM.UR ---
Reviewed patient's chart. Discussed with LIZBET Em plan for patient. States cardiology wants to continue to monitor and get more troponins. Alerted LIZBET Em that someone should talk to her about his uncontrolled diabetes and see if any referrals are needed. Verb understanding and agreement. Changed to IP status at this time. Shana Sears RN, CCM.
[2020-07-19] MEDS: Insulin Human 75/25 Kwickpen 10 UNIT SC (17:13)
[2020-07-19 17:31] LABS: Bedside Glucose 291 mg/dL (70-110)
[2020-07-19] MEDS: Atorvastatin Calcium 40 MG Tablet PO (21:33)
[2020-07-19 21:51] LABS: Bedside Glucose 237 mg/dL (70-110)
[2020-07-20 03:00] VITALS: PULSE 88
[2020-07-20 03:25] VITALS: BP 100/55; PULSE 82; RESP 18; TEMP 37; O2SAT 97
[2020-07-20] MEDS: Insulin Lispro 100 UNIT/ML INSULN.PEN SC ×2 (06:42→12:05)
[2020-07-20 06:50] LABS: Bedside Glucose 244 mg/dL (70-110)
[2020-07-20 07:01] VITALS: PULSE 87
[2020-07-20 07:22] VITALS: O2SAT 94
[2020-07-20 08:42] VITALS: BP 94/59; PULSE 86; RESP 16; TEMP 36.8; O2SAT 94
[2020-07-20] MEDS: Ondansetron 4 MG/2 ML Vial IV (08:48)
[2020-07-20] MEDS: 0.9% Normal Saline 1,000 ML 100 ML IV (10:36)
[2020-07-20] MEDS: Enoxaparin 40 MG/0.4 ML Syringe SC (10:37)
[2020-07-20] MEDS: proCHLORPERazine 10 MG/2 ML Vial 5 MG IV (10:46)
--- NOTE | 2020-07-20 11:44 | DCINST_ITS ---
- Discharge Diagnoses Current Active Problems: Current Active and Chronic Problems (Last Reviewed 07/16/20 @ 11:46 by Monster Francois DIRECTOR CASE MANAGEMENT, DIRECTOR CASE MANAGEMENT-C) COPD (chronic obstructive pulmonary disease) (Chronic) Diabetes mellitus type 2, uncontrolled (Chronic) Fe deficiency anemia (Chronic) Anxiety and depression (Chronic) Former tobacco use (Chronic) Chest pain (Acute) You will use the following diet at home:: Calorie/Carbohydrate Controlled (specify 1200, 1400, etc), Cardiac Discharge Activity: Return to Normal Activity Call your doctor if you observe: Shortness of breath, Dizziness, Fainting spells, Chest pain Allergies/Adverse Reactions: Allergies Penicillins Allergy (Verified 07/18/20 17:25) Hives hydrocodone bitartrate [From Vicodin] Adverse Reaction (Verified 07/18/20 17:25) Vomiting ibuprofen Adverse Reaction (Verified 07/18/20 17:25) Vomiting Medications to take at Discharge Aspirin [Adult Low Dose Aspirin EC] 81 mg PO DAILY 02/04/16 Nitroglycerin (INPATIENT USE) [Nitrostat] 0.4 mg SUBLINGUAL Q5M PRN 09/28/17 Furosemide [Lasix] 40 mg PO DAILY 11/17/18 Metformin HCl 1,000 mg PO BID 11/17/18 Cholecalciferol (Vitamin D3) [Vitamin D3] 5,000 units PO DAILY 10/30/19 Clopidogrel Bisulfate [Clopidogrel] 75 mg PO DAILY 10/30/19 Glimepiride [Amaryl] 4 mg PO DAILY 10/30/19 traZODone [Desyrel] 50 mg PO QHS PRN 03/07/20 Insulin Human 70/30 [Novolog Mix 70-30 Flexpen Syrn] 10 units SUBCUT BIDCM 05/18/20 Ondansetron [Zofran Odt] 4 mg PO Q8H PRN PRN #10 tab 06/08/20 omeprazole 40 mg capsule,delayed release 40 mg PO DAILY PRN cap 07/16/20 Ferrous Sulfate [Iron] 65 mg PO DAILY 07/18/20 Gabapentin [Neurontin] 300 mg PO BIDCM 07/18/20 Isosorbide Mononitrate [Isosorbide Mononitrate ER] 30 mg PO DAILY 07/18/20 Atorvastatin Calcium [Lipitor] 40 mg PO QHS #30 tab 07/20/20 Metoprolol Tartrate [Lopressor (beta elder)] 12.5 mg PO BID tablet 07/20/20 Ondansetron HCl [Zofran] 4 mg PO Q8H PRN PRN #20 tab 07/20/20 The following prescriptions were given: Atorvastatin Calcium [Lipitor] 40 mg PO QHS #30 tab Transmission Status: Pending to [facility] Ondansetron HCl [Zofran] 4 mg PO Q8H PRN PRN #20 tab PRN Reason: Nausea/Emesis Transmission Status: Pending to [facility] Primary Care Physician: Bulmaro Nogueira DO [Primary Care Provider] - Please follow up with your Primary Care Physician in: 1 Week Test Results: Test results from this visit will be discussed in further detail at your follow- up appointment, if applicable. Please Follow Up With: Jamie Mike MD When: 1 Week Please Follow Up With: Monster Francois NP-C When: As scheduled 08/14/2020 Proposed Discharge Date: 07/20/20
--- NOTE | 2020-07-20 11:52 | DS.PCM_ITS ---
<Nguyen Price MANUFACTURING LABORER - Last Filed: 07/20/20 11:57> Discharge Date and Diagnosis Date of Admission: 07/18/20 Date of Discharge: 07/20/20 - Primary Discharge Diagnosis Acute Problems: Active Problems (Last Reviewed 07/16/20 @ 11:46 by Monster Francois MANUFACTURING LABORER, MANUFACTURING LABORER-C) 1. Chest pain, abnormal troponin- ACS ruled out. 2. Viral gastroenteritis 3. CAD with history of PCI 4. Valvular heart disease 5. Type 2 diabetes mellitus with hyperglycemia 6. Hypertension 7. GERD 8. CAD with history of stents 9. Tobacco dependence 10. Chronic COPD 11. Hyperlipidemia 12. History of CVA - Secondary Discharge Diagnosis Chronic Problems: Chronic Problems (Last Reviewed 07/16/20 @ 11:46 by Monster Francois MANUFACTURING LABORER, MANUFACTURING LABORER-C) COPD (chronic obstructive pulmonary disease) (Chronic) Diabetes mellitus type 2, uncontrolled (Chronic) Fe deficiency anemia (Chronic) Anxiety and depression (Chronic) Former tobacco use (Chronic) History of aortic valve replacement with bioprosthetic valve (Chronic 01/25/20) AVR w/ # 21 Hatch Pericardial Valve and root enlargement using a pericardial patch 01/25/2020 Atherosclerotic heart disease of [place] coronary artery without angina pectoris (Chronic) Essential (primary) hypertension (Chronic) Hyperlipidemia (Chronic) Nicotine dependence (Chronic) Hospital Course and Treatment Imaging Results: Diagnostic Data Chest X-Ray 07/18/20 18:05 IMPRESSION: No acute cardiopulmonary process. Electronically Signed: Savannah oByd MD at 18:20 EDT Tel , Service support , Stress Test Nuclear Medicine 07/19/20 05:55 IMPRESSION: 1. NORMAL post STENT REST-REGADENOSON STRESS 99m Tc SESTAMIBI MYOCARDIAL PERFUSION SPECT. A. No evidence of pharmacologically induced left ventricular ischemia. B. Preservation of resting left ventricular systolic function. (Karissa et al, J Nucl Med 37: 105P, 1996). Electronically Signed: Dany Carr DO at 11:44 EDT Tel , Service support , Dr. Ron- cardiology Operations: None Procedures: 2-D Echocardiogram, Stress test Summary of Care Provided: The patient is a 64 year old F admitted 07/18/2020 due to chest pain. 1. Chest pain, abnormal troponin-ACS ruled out. EKG without evidence of ischemia. Chest x-ray unremarkable. Cardiology consulted. Patient underwent nuclear stress test which showed no evidence of ischemia. Continue aspirin, Plavix. Initiated on statin. Echocardiogram demonstrates an EF of 55 to 60%. Follow-up with primary senior accountant in 2 weeks. 2. Nausea, vomiting, diarrhea-presumed viral gastroenteritis. COVID negative. Stool for enteric bacteriology and C. difficile negative. Symptoms improved. PRN Zofran for nausea/emesis. 3. CAD with history of PCI-continue aspirin, Plavix, metoprolol, lisinopril. Initiated on statin. 4. Valvular heart disease-history of aortic valve replacement. 5. Type 2 diabetes mellitus with hyperglycemia-Hemoglobin A1c 12.4%. Continue home oral and insulin regimen. Blood glucose 481 on admission, now improved. Patient's blood glucose improved on home insulin regimen. Suspect patient is noncompliant with insulin regimen. Follow-up with endocrinology in 1 week. 6. Hypertension-stable, continue metoprolol, Lasix, isosorbide. Metoprolol dose reduced to 12.5 mg twice daily per cardiology due to hypotension. Lisinopril discontinued as well. 7. GERD-continue Protonix, Zantac. 8. CAD with history of stents-continue aspirin, Plavix, beta-ban. 9. Tobacco dependence-encouraged cessation. 10. Chronic COPD-no acute exacerbation. 11. Hyperlipidemia-not on statin. Initiated on atorvastatin 40 mg nightly. 12. History of CVA-continue aspirin, Plavix. General: Alert, Oriented x3, Cooperative HEENT: Atraumatic, PERRLA, EOMI, Normocephalic Neck: Supple, No JVD, Negative Carotid Bruits Lungs: Clear to auscultation, Normal air movement Cardiovascular: Regular rate, No murmurs Abdomen: Bowel Sounds Present, Soft, Non Tender Extremities: No edema, Capillary Refill Less than 3 Seconds Skin: No rashes, No breakdown Musculoskeletal: No Tenderness to Palpation of Joints or Extremities Neurological: Cranial nerves II-XII grossly intact, Neuro grossly intact Psych/Mental Status: Normal Affect, Appropriate Patient seen and examined prior to discharge. Physical assessment as noted ab ove. Patient is stable for discharge with follow up recommendations as noted above. This patient was seen by MAMI Barnes under the supervision of Dr. Anna. - Physical Exam Vitals/I&O's: Vital Signs Temp Pulse Resp BP Pulse Ox 98.2 F 86 16 94/59 L 94 07/20/20 08:42 07/20/20 08:42 07/20/20 08:42 07/20/20 08:42 07/20/20 08:42 Oxygen Delivery Method Room Air Weight: 134 lb 14.766 oz Body Mass Index (BMI) 23.8 Finger Stick Blood Glucose 377 Intake and Output for Last 24 Hours 07/18/20 07/19/20 07/20/20 23:59 23:59 23:59 Intake Total 2468.34 / 2468.34 978.33 / 978.33 Balance 2468.34 / 2468.34 978.33 / 978.33 Microbiology Past 72 Hours 07/19/20 13:17 Stool Enteric Bacteriology - Final 07/19/20 13:17 Stool C. difficile DNA Amplification - Final Laboratory Results 07/19/20 17:06: POC Glucose 291 H 07/19/20 21:26: POC Glucose 237 H 07/20/20 05:32: Troponin I 0.028 07/20/20 06:40: POC Glucose 244 H Current Medications Acetaminophen (Tylenol) 650 mg PO Q6H PRN PRN PRN Reason: Pain Score 1-10/Temp > 100.7 F Al Hydroxide/Mg Hydroxide (Mylanta Ii) 30 ml PO Q6H PRN PRN PRN Reason: Gastric Burning Albuterol Sulfate (Ventolin Aerosols) 2.5 mg INHALATION Q2H PRN PRN PRN Reason: Dyspnea, wheezing Aspirin (Ecotrin) 81 mg PO DAILY [facility] Last Admin: 07/19/20 05:24 Dose: 81 mg Documented by: Atorvastatin Calcium (Lipitor) 40 mg PO QHS [facility] Last Admin: 07/19/20 21:33 Dose: 40 mg Documented by: Clopidogrel Bisulfate (Plavix) 75 mg PO DAILY [facility] Last Admin: 07/19/20 05:25 Dose: 75 mg Documented by: Dextrose (D50w Syringe) 0 gm IV X1 PRN; Protocol PRN Reason: Hypoglycemia Enoxaparin Sodium (Lovenox) 40 mg SC DAILY [facility] Last Admin: 07/20/20 10:37 Dose: 40 mg Documented by: [facility]) [facility] Last Admin: 07/20/20 10:36 Dose: Not Given Documented by: [facility]in) [facility] Last Admin: 07/20/20 10:36 Dose: Not Given Documented by: Glucagon () 1 mg IM .X1 PRN PRN Reason: Hypoglycemia Guaifenesin (Robitussin) 20 ml PO Q4H PRN PRN PRN Reason: COUGH Sodium Chloride () 1,000 mls @ 100 mls/hr IV .Q10H [facility] Last Admin: 07/20/20 10:36 Dose: 100 mls/hr Documented by: Insulin Human Lispro (Humalog Kwikpen (Bk)) 0 unit SC [facility]; Protocol Last Admin: 07/20/20 06:42 Dose: 6 units Documented by: Insulin Lispro Protam/Lispro Human (Humalog Mix 75-25 Kwikpen ([facility])) [facility] Last Admin: 07/20/20 10:36 Dose: Not Given Documented by: Magnesium Hydroxide (Milk Of Magnesia) 30 ml PO DAILY PRN PRN PRN Reason: Constipation Melatonin (Melatonin) 3 mg PO QHS PRN PRN PRN Reason: INSOMNIA Metoprolol Tartrate (Lopressor (Beta Ban)) 12.5 mg PO BID [facility] Morphine Sulfate () 2 mg IV Q3H PRN PRN PRN Reason: Pain Score 6-10 Last Admin: 07/18/20 23:34 Dose: 2 mg Documented by: Nitroglycerin (Nitrostat) 0.4 mg SUBLINGUAL Q5M PRN PRN Reason: CARDIAC/CHEST PAIN Ondansetron HCl (Zofran) 4 mg IV Q8H PRN PRN PRN Reason: NAUSEA/VOMITING Last Admin: 07/20/20 08:48 Dose: 4 mg Documented by: Oxycodone HCl (Oxyir) 5 mg PO Q4H PRN PRN PRN Reason: Pain Score 4-5 Pantoprazole Sodium (Protonix) 40 mg PO DAILY PRN PRN PRN Reason: HEARTBURN Prochlorperazine Edisylate (Compazine Iv) 5 mg IV Q4H PRN PRN PRN Reason: Breakthrough Nausea/Vomiting Last Admin: 07/20/20 10:46 Dose: 5 mg Documented by: Psyllium Hydrophilic Mucilloid (Metamucil) 1 packet PO DAILY PRN PRN PRN Reason: Constipation Senna/Docusate Sodium (Senokot-S, Elsa-Colace) 2 tablet PO BID PRN PRN PRN Reason: Constipation Sodium Chloride () 10 - 40 ml IV UD PRN PRN Reason: SALINE FLUSH Last Admin: 07/18/20 23:36 Dose: 10 ml Documented by: Sodium Chloride () 10 - 40 ml IV UD PRN PRN Reason: SALINE FLUSH Throat Lozenges (Cepacol Sore Throat Lozenge) 1 lozenge MUCOUS MEM Q2H PRN PRN PRN Reason: SORE THROAT Trazodone HCl (Desyrel) 50 mg PO QHS PRN PRN PRN Reason: SLEEP Last Admin: 07/19/20 21:37 Dose: 50 mg Documented by: Discharge Diet: Low fat/ Low Cholesterol Discharge Activity: Return to Normal Activity Call your doctor if you observe: Shortness of breath, Dizziness, Fainting spells, Chest pain Home Medications: Medications to take at Discharge Aspirin [Adult Low Dose Aspirin EC] 81 mg PO DAILY 02/04/16 Nitroglycerin (INPATIENT USE) [Nitrostat] 0.4 mg SUBLINGUAL Q5M PRN 09/28/17 Furosemide [Lasix] 40 mg PO DAILY 11/17/18 Metformin HCl 1,000 mg PO BID 11/17/18 Cholecalciferol (Vitamin D3) [Vitamin D3] 5,000 units PO DAILY 10/30/19 Clopidogrel Bisulfate [Clopidogrel] 75 mg PO DAILY 10/30/19 Glimepiride [Amaryl] 4 mg PO DAILY 10/30/19 traZODone [Desyrel] 50 mg PO QHS PRN 03/07/20 Insulin Human 70/30 [Novolog Mix 70-30 Flexpen Syrn] 10 units SUBCUT BIDCM 05/18/20 Ondansetron [Zofran Odt] 4 mg PO Q8H PRN PRN #10 tab 06/08/20 omeprazole 40 mg capsule,delayed release 40 mg PO DAILY PRN cap 07/16/20 Ferrous Sulfate [Iron] 65 mg PO DAILY 07/18/20 Gabapentin [Neurontin] 300 mg PO BIDCM 07/18/20 Isosorbide Mononitrate [Isosorbide Mononitrate ER] 30 mg PO DAILY 07/18/20 Atorvastatin Calcium [Lipitor] 40 mg PO QHS #30 tab 07/20/20 Metoprolol Tartrate [Lopressor (beta ban)] 12.5 mg PO BID tab 07/20/20 Ondansetron HCl [Zofran] 4 mg PO Q8H PRN PRN #20 tab 07/20/20 Following Prescriptions Were Given to Patient: Atorvastatin Calcium [Lipitor] 40 mg PO QHS #30 tab Transmission Status: [facility] Ondansetron HCl [Zofran] 4 mg PO Q8H PRN PRN #20 tab PRN Reason: Nausea/Emesis Transmission Status: Received by [facility] COOPER[address] [facility] Primary Care Physician: Bulmaro Nogueira DO [Primary Care Provider] - Please follow up with your Primary Care Physician in: 1 Week Please Follow Up With: Jamie Mike MD When: 1 Week Please Follow Up With: Monster Francois NP-C When: As scheduled 08/14/2020 Disposition: Home Minutes spent on discharge:: 35 Patient Condition:: Stable Medical Necessity - Tobacco Use Smoking Status: Former smoker - Patient quit cigarette tobacco usage approximately 1 year prior with prior to this 1 pack/day since she been a teenager. Tobacco Use: Non-smoker Meaningful Use Info Meaningful Use Diagnoses (Choose all that apply): None applicable <Sandeep Anna - Last Filed: 07/20/20 13:27> Discharge Date and Diagnosis - Secondary Discharge Diagnosis Chronic Problems: Chronic Problems (Last Reviewed 07/16/20 @ 11:46 by Monster Francois NP, MANUFACTURING LABORER-C) COPD (chronic obstructive pulmonary disease) (Chronic) Diabetes mellitus type 2, uncontrolled (Chronic) Fe deficiency anemia (Chronic) Anxiety and depression (Chronic) Former tobacco use (Chronic) History of aortic valve replacement with bioprosthetic valve (Chronic 01/25/20) AVR w/ # 21 Hatch Pericardial Valve and root enlargement using a pericardial patch 01/25/2020 Atherosclerotic heart disease of [place] coronary artery without angina pectoris (Chronic) Essential (primary) hypertension (Chronic) Hyperlipidemia (Chronic) Nicotine dependence (Chronic) Hospital Course and Treatment Summary of Care Provided: This patient was seen in conjunction with Nguyen ENG. I have independently interviewed and examined the patient and reviewed pertinent history, examination findings, laboratory and plan of management. I have reviewed the note and agree with the documented findings with the few additional points. In brief, patient is a 64-year-old question female with history of coronary artery disease status post CABG and bioprosthetic aortic valve, current PCI, last stent in March 2017. Patient has mildly elevated troponin 0 0.096, trending down, last was 0.047. Patient had a stress test today which showed no evidence of ischemia. Seen by senior accountant. Continue aspirin, Plavix, metoprolol and atorvastatin. Repeat troponin normal today. Lipid profile shows elevated triglycerides 305, LDL 89. Atorvastatin increased to 40 mg daily. Viral gastroenteritis: COVID PCR negative. Stool for enteric bacteriology panel and C. difficile negative. Patient is well-hydrated. Advised to maintain soft diet. Rest of the comorbidities as mentioned above. I have discussed my assessment with MANUFACTURING LABORERNguyen and orders have been reviewed. [] Objective: Patient had nausea, vomiting and diarrhea before admission which is getting better. No abdominal pain. Enteric bacteriology panel and C. difficile negative. Complain of mild epigastric and left upper quadrant pain. Physical exam General: Alert, Oriented x3, Cooperative HEENT: Atraumatic, PERRLA, EOMI, Normocephalic Oral: No Gingival or Mucosal Lesions/ Ulcerations Neck: Supple, No JVD, Negative Carotid Bruits Lungs: Air entry diminished in bilateral lung bases. No crepitation/rhonchi Cardiovascular: Regular rate, Regular Rhythm, Normal S1, Normal S2, pansystolic murmur over cardiac apex. Bioprosthetic aortic valve. Abdomen: Bowel Sounds Present, Soft, Non Tender, Non-Distended : No renal angle tenderness. No suprapubic tenderness. Extremities: No edema, Capillary Refill Less than 3 Seconds Skin: No rashes, No breakdown Musculoskeletal: No Tenderness to Palpation of Joints or Extremities Neurological: Cranial nerves II-XII grossly intact, Deep Tendon Reflexes 2+/4 and Symmetrical, Neuro grossly intact Psych/Mental Status: Normal Affect, Appropriate. - Physical Exam Vitals/I&O's: Vital Signs Temp Pulse Resp BP Pulse Ox 98.2 F 89 16 94/59 L 94 07/20/20 08:42 07/20/20 12:06 07/20/20 08:42 07/20/20 08:42 07/20/20 08:42 Oxygen Delivery Method Room Air Weight: 134 lb 14.766 oz Body Mass Index (BMI) 23.8 Finger Stick Blood Glucose 377 Intake and Output for Last 24 Hours 07/18/20 07/19/20 07/20/20 23:59 23:59 23:59 Intake Total 2468.34 / 2468.34 1161.66 / 1161.66 Balance 2468.34 / 2468.34 1161.66 / 1161.66 Microbiology Past 72 Hours 07/19/20 13:17 Stool Enteric Bacteriology - Final 07/19/20 13:17 Stool C. difficile DNA Amplification - Final Laboratory Results 07/19/20 17:06: POC Glucose 291 H 07/19/20 21:26: POC Glucose 237 H 07/20/20 05:32: Troponin I 0.028 07/20/20 06:40: POC Glucose 244 H Current Medications Acetaminophen (Tylenol) 650 mg PO Q6H PRN PRN PRN Reason: Pain Score 1-10/Temp > 100.7 F Al Hydroxide/Mg Hydroxide (Mylanta Ii) 30 ml PO Q6H PRN PRN PRN Reason: Gastric Burning Albuterol Sulfate (Ventolin Aerosols) 2.5 mg INHALATION Q2H PRN PRN PRN Reason: Dyspnea, wheezing Aspirin (Ecotrin) 81 mg PO DAILY [facility] Last Admin: 07/20/20 12:05 Dose: 81 mg Documented by: Atorvastatin Calcium (Lipitor) 40 mg PO QHS [facility] Last Admin: 07/19/20 21:33 Dose: 40 mg Documented by: Clopidogrel Bisulfate (Plavix) 75 mg PO DAILY [facility] Last Admin: 07/20/20 12:05 Dose: 75 mg Documented by: Dextrose (D50w Syringe) 0 gm IV X1 PRN; Protocol PRN Reason: Hypoglycemia Enoxaparin Sodium (Lovenox) 40 mg SC DAILY [facility] Last Admin: 07/20/20 10:37 Dose: 40 mg Documented by: Ferrous Sulf[facility] ([facility] Sulfate) [facility] Last Admin: 07/20/20 10:36 Dose: Not Given Documented by: Gabapentin ([facility]urontin) [facility] Last Admin: 07/20/20 10:36 Dose: Not Given Documented by: Glucagon () 1 mg IM .X1 PRN PRN Reason: Hypoglycemia Guaifenesin (Robitussin) 20 ml PO Q4H PRN PRN PRN Reason: COUGH Sodium Chloride () 1,000 mls @ 100 mls/hr IV .Q10H [facility] Last Infusion: 07/20/20 12:26 Dose: 0 mls/hr Documented by: Insulin Human Lispro (Humalog Kwikpen (Bkc)) 0 unit SC ACHS [facility]; Protocol Last Admin: 07/20/20 12:05 Dose: 14 units Documented by: Insulin Lispro Protam/Lispro Human (Humalog Mix 75-25 Kwikpen (Bk)) [facility] Last Admin: 07/20/20 10:36 Dose: Not Given Documented by: Magnesium Hydroxide (Milk Of Magnesia) 30 ml PO DAILY PRN PRN PRN Reason: Constipation Melatonin (Melatonin) 3 mg PO QHS PRN PRN PRN Reason: INSOMNIA Metoprolol Tartrate (Lopressor (Beta Ban)) 12.5 mg PO BID [facility] Last Admin: 07/20/20 12:06 Dose: 12.5 mg Documented by: Morphine Sulfate () 2 mg IV Q3H PRN PRN PRN Reason: Pain Score 6-10 Last Admin: 07/18/20 23:34 Dose: 2 mg Documented by: Nitroglycerin (Nitrostat) 0.4 mg SUBLINGUAL Q5M PRN PRN Reason: CARDIAC/CHEST PAIN Ondansetron HCl (Zofran) 4 mg IV Q8H PRN PRN PRN Reason: NAUSEA/VOMITING Last Admin: 07/20/20 08:48 Dose: 4 mg Documented by: Oxycodone HCl (Oxyir) 5 mg PO Q4H PRN PRN PRN Reason: Pain Score 4-5 Pantoprazole Sodium (Protonix) 40 mg PO DAILY PRN PRN PRN Reason: HEARTBURN Prochlorperazine Edisylate (Compazine Iv) 5 mg IV Q4H PRN PRN PRN Reason: Breakthrough Nausea/Vomiting Last Admin: 07/20/20 10:46 Dose: 5 mg Documented by: Psyllium Hydrophilic Mucilloid (Metamucil) 1 packet PO DAILY PRN PRN PRN Reason: Constipation Senna/Docusate Sodium (Senokot-S, Elsa-Colace) 2 tablet PO BID PRN PRN PRN Reason: Constipation Sodium Chloride () 10 - 40 ml IV UD PRN PRN Reason: SALINE FLUSH Last Admin: 07/18/20 23:36 Dose: 10 ml Documented by: Sodium Chloride () 10 - 40 ml IV UD PRN PRN Reason: SALINE FLUSH Throat Lozenges (Cepacol Sore Throat Lozenge) 1 lozenge MUCOUS MEM Q2H PRN PRN PRN Reason: SORE THROAT Trazodone HCl (Desyrel) 50 mg PO QHS PRN PRN PRN Reason: SLEEP Last Admin: 07/19/20 21:37 Dose: 50 mg Documented by: Inpatient E&M: [id number] Disch Hosp
[2020-07-20] MEDS: Clopidogrel Bisulfate 75 MG Tablet PO (12:05)
[2020-07-20] MEDS: Aspirin E.C. 81 MG Tablet PO (12:05)
[2020-07-20 12:06] VITALS: PULSE 89
[2020-07-20] MEDS: Metoprolol Tartrate 25 MG Tablet 12.5 MG PO (12:06)
--- NOTE | 2020-07-20 13:13 | STRESSREP ---
Stress Test Report Stress test report; 64-year-old patient, with CAD, has PCI and stent/drug-eluting stent to proximal/mid LAD in 2014 Had ISR of proximal LAD in 2017, has aortic valve disease S/P AVR/bioprosthetic]. Presenting with symptoms of chest pain, epigastric discomfort with nausea. Resting EKG revealed normal sinus rhythm with a heart rate of around 96 Patient was given regarding the same resting blood pressure 124/64 following injection of regadenoson blood pressure was around 128/72 At rest there were no ST or T wave change noted to suggest ischemia. Patient had no symptoms of chest pain to report and has been stable clinically Following injection of regadenoson there were no significant ST-T changes noted from the resting. As well there were no clinical angina were noted and there were no significant ventricular dysrhythmia Conclusion: Regadenoson infusion revealed no significant EKG criteria for ischemia Report of nuclear stress test will be documented separately by the radiologist.
[2020-07-20 16:41] LABS: Bedside Glucose 375 mg/dL (70-110)
--- NOTE | 2020-07-21 12:05 | CASEMGMT ---
LIZBET CM Discharge Follow-up Phone Call: ROLAN: Alexia Strata: 3 Call Date: 07/21/2020 Discharge Date: 07/20/2020 Time of Call: 1205 Admitting Diagnosis: Chest pain Discharge follow-up call placed to pt. Pt states she feels blah and crappy today. Denies any c/o chest pain or SOB. Pt states she obtained her medications and denies any questions regarding them. Pt states she was just about to call to make her follow-up appointments when I called her. Pt states she will make them as directed. Pt denied any further concerns or questions. Debra Franz RN CM
== END 2020-07-20 11:45 | disposition home or self-care (01) | DRG 313 ==
LOC: ED 18:05 → PCU 21:59
PROVIDERS: Internal Medicine Interventional Cardiology; Admitting Provider Family Medicine; Emergency Provider Student in an Organized Health Care Education/Training Program; PCP Family Medicine; Visit Provider Internal Medicine
DX: R07.89 Other chest pain (principal); E44.0 Moderate protein-calorie malnutrition; I69.354 Hemiplegia and hemiparesis following cerebral infarction affecting left non-dominant side; I34.0 Nonrheumatic mitral (valve) insufficiency; I25.10 Atherosclerotic heart disease of native coronary artery without angina pectoris; R79.89 Other specified abnormal findings of blood chemistry; A08.4 Viral intestinal infection, unspecified; E11.65 Type 2 diabetes mellitus with hyperglycemia; I10 Essential (primary) hypertension; K21.9 Gastro-esophageal reflux disease without esophagitis; Z95.1 Presence of aortocoronary bypass graft; J44.9 Chronic obstructive pulmonary disease, unspecified; I35.8 Other nonrheumatic aortic valve disorders; D50.9 Iron deficiency anemia, unspecified; I95.9 Hypotension, unspecified; Z95.3 Presence of xenogenic heart valve; F41.9 Anxiety disorder, unspecified; E78.5 Hyperlipidemia, unspecified; Z68.23 Body mass index [BMI] 23.0-23.9, adult; F31.9 Bipolar disorder, unspecified; F20.9 Schizophrenia, unspecified; Z87.440 Personal history of urinary (tract) infections; Z79.82 Long term (current) use of aspirin; Z79.4 Long term (current) use of insulin; Z79.899 Other long term (current) drug therapy; Z79.02 Long term (current) use of antithrombotics/antiplatelets; Z90.49 Acquired absence of other specified parts of digestive tract; Z86.711 Personal history of pulmonary embolism; Z87.891 Personal history of nicotine dependence; Z23 Encounter for immunization
CPT/HCPCS: 36415; 71045; 78452; 80048; 80053; 80061; 82947; 82962; 83036; 83735; 84484; 85025; 85379; 85610; 85730; 87493; 87506; 87635; 93005; 93017; 93306; 97802; 99251; 99285; A9500; G0008; J7030; 90686; A4216; G0463; J2405; J2785; U0003

== ENCOUNTER → 2020-07-28 15:20 | Outpatient (CLI) | payer MEDICARE, SELFPAY ==
[2017-03-16 08:30] VITALS: BMI 29.2
[2020-07-28 16:31] LABS: Absolute Neutrophil Count 7.1 X10^3/uL (2.0-7.7); Basophil# 0.05 X10^3/uL; Basophil% 0.5 % (0-1); Eosinophil# 0.24 X10^3/uL; Eosinophils% 2.3 % (0-5); Hematocrit 39.9 % (37-47); Hemoglobin 13.4 g/dL (12.0-15.0); Lymphocyte % 25.3 % (19-41); Mean Corp Hgb Conc 33.6 g/dL (32-36); Mean Corpuscular Hgb 31.4 pg (27.0-32.0); Mean Corpuscular Volume 93.4 fL (81-99); Monocyte# 0.57 X10^3/uL; Monocyte% 5.3 % (0-10); NRBC Flagged by Analyzer 0 % (0-5); Neutrophil # 7.06 X10^3/uL (2.7-7.7); Neutrophil % 66.2 % (47-70); Platelet Count 278 K/mm3 (150-450); RBC Distribution Width CV 12.1 % (11.6-14.6); RBC Distribution Width SD 41.3 fl (35.1-43.9); Red Blood Count 4.27 M/mm3 (4.2-5.4); White Blood Count 10.7 K/mm3 (4.4-11.0)
[2020-07-28 17:49] LABS: AST(SGOT) 19 U/L (15-37); Alanine Aminotransfer ALT/SGPT 23 U/L (13-56); Albumin, Serum 3.8 g/dL (3.2-5.0); Alkaline Phosphatase 63 U/L (45-117); Anion Gap 7 (5-15); BUN 20 mg/dL (7-18); BUN/Creat Ratio 19.6 RATIO (10-20); Calcium,Total 9.4 mg/dL (8.5-10.1); Chloride 102 mmol/L (98-107); Creatinine, Serum 1.02 mg/dL (0.55-1.02); EST Glomerular Filtration Rate 58 mL/min (>60); Est Glom Filt Rate - Afr Amer 70 mL/min (>60); Globulin 3.8 g/dL (2.2-4.2); Glucose 246 mg/dL (74-106); Protein, Total 7.6 g/dL (6.4-8.2); Sodium Level 136 mmol/L (136-145); Thyroid Stim Hormone (TSH) 1.63 uIU/mL (0.358-3.74)
[2020-07-29 10:42] LABS: Hepatitis C Antibody Non-Reactive (Nonreactive); Vitamin D,25 Hydroxy 25.6 ng/mL
== END ==
PROVIDERS: PCP Family Medicine Geriatric Medicine; Visit Provider Family Medicine Geriatric Medicine
DX: E55.9 Vitamin D deficiency, unspecified (principal); R53.83 Other fatigue; Z13.89 Encounter for screening for other disorder
CPT/HCPCS: 36415; 80053; 82306; 84443; 85025; 86803

== ENCOUNTER → 2020-08-20 10:02 | Outpatient (CLI) | payer MEDICARE, SELFPAY ==
[2017-03-16 08:30] VITALS: BMI 29.2
[2020-07-19 12:13] VITALS: BMI 23.8
[2020-08-20 11:18] LABS: Absolute Lymphocyte Count 2.78 X10^3/uL (0.83-4.51); Absolute Neutrophil Count 4.5 X10^3/uL (2.0-7.7); Basophil# 0.07 X10^3/uL; Basophil% 0.9 % (0-1); Eosinophil# 0.23 X10^3/uL; Eosinophils% 2.8 % (0-5); Hematocrit 40.5 % (37-47); Hemoglobin 13.9 g/dL (12.0-15.0); Lymphocyte # 2.78 X10^3/ul (4.0); Lymphocyte % 34.4 % (19-41); Mean Corp Hgb Conc 34.3 g/dL (32-36); Mean Corpuscular Hgb 31.3 pg (27.0-32.0); Mean Corpuscular Volume 91.2 fL (81-99); Mean Platelet Vol. 10.9 fl (6.2-12.0); Monocyte# 0.48 X10^3/uL; Monocyte% 5.9 % (0-10); NRBC Flagged by Analyzer 0 % (0-5); Neutrophil # 4.46 X10^3/uL (2.7-7.7); Neutrophil % 55.3 % (47-70); Platelet Count 254 K/mm3 (150-450); RBC Distribution Width CV 12.2 % (11.6-14.6); RBC Distribution Width SD 40.6 fl (35.1-43.9); Red Blood Count 4.44 M/mm3 (4.2-5.4); White Blood Count 8.1 K/mm3 (4.4-11.0)
[2020-08-20 11:34] LABS: D-Dimer Quantitative (DVT/PE) 0.37 FEU/ug/m (0.27-0.49)
[2020-08-20 12:01] LABS: ALB/GLOB Ratio 1.2 RATIO (0.9-2.4); AST(SGOT) 18 U/L (15-37); Alanine Aminotransfer ALT/SGPT 40 U/L (13-56); Albumin, Serum 4.2 g/dL (3.2-5.0); Alkaline Phosphatase 76 U/L (45-117); Anion Gap 5 (5-15); BUN 19 mg/dL (7-18); BUN/Creat Ratio 18.6 RATIO (10-20); CPK Total, Creatine Kinase 45 U/L (26-192); Calcium,Total 9.9 mg/dL (8.5-10.1); Chloride 104 mmol/L (98-107); Creatinine, Serum 1.02 mg/dL (0.55-1.02); EST Glomerular Filtration Rate 57 mL/min (>60); Est Glom Filt Rate - Afr Amer 70 mL/min (>60); Globulin 3.6 g/dL (2.2-4.2); Glucose 437 mg/dL (74-106); Potassium 4.5 mmol/L (3.5-5.1); Protein, Total 7.8 g/dL (6.4-8.2); Sodium Level 136 mmol/L (136-145)
[2020-08-21 12:31] LABS: Myoglobin, Serum 32 ng/mL (25-58)
== END ==
PROVIDERS: PCP Family Medicine Geriatric Medicine; Visit Provider Family Medicine Geriatric Medicine
DX: R00.0 Tachycardia, unspecified (principal); R07.9 Chest pain, unspecified
CPT/HCPCS: 80053; 82550; 83874; 84484; 85025; 85379

== ENCOUNTER → 2020-08-22 14:35 | Outpatient (CLI) | payer MEDICARE, SELFPAY ==
[2017-03-16 08:30] VITALS: BMI 29.2
[2020-07-19 12:13] VITALS: BMI 23.8
--- NOTE | 2020-08-22 14:39 | BI_ITS ---
MAMMOGRAPHY - BILATERAL SCREENING REASON FOR EXAM: Female, 65 years old. Routine annual screening examination. PERTINENT HISTORY: Non-contributory. TECHNIQUE: Digital bilateral breast rimma (3D mammographic acquisition) in the CC and MLO projections. 2-D mediolateral oblique (MLO) and craniocaudad (CC) views of both breasts were obtained. CAD: Full Field Digital Mammography with Computer Added Detection was performed. COMPARISON: Comparison is made with prior examination dated 01/20/2016. FINDINGS: Breast Composition: There are scattered areas of fibroglandular density. There are no dominant masses or suspicious calcifications. No other significant abnormalities are identified. There has been no significant change since the prior study. BI/SCREEN MAMM (CAD) W/RIMMA BILAT IMPRESSION: Stable bilateral screening mammogram. Yearly follow-up mammogram recommended. (A) ASSESSMENT CATEGORY: BIRADS Category 1: Negative. A letter regarding these results will be sent to the patient by the facility within 30 days. Approximately 10% of breast cancers are not detected by mammography. A normal mammogram should not delay biopsy of a clinically suspicious abnormality. [id number] Electronically Signed: Uriah Weathers, at 12:07 EST , Service support ,
== END ==
PROVIDERS: PCP Family Medicine Geriatric Medicine; Referring Provider Family Medicine Geriatric Medicine; Visit Provider Family Medicine Geriatric Medicine
DX: Z12.31 Encounter for screening mammogram for malignant neoplasm of breast (principal)
CPT/HCPCS: 77063; 77067

== ENCOUNTER 2020-08-25 17:09 | Emergency (ER) | payer MEDICARE, SELFPAY ==
[2017-03-16 08:30] VITALS: BMI 29.2
[2020-07-19 12:13] VITALS: BMI 23.8
[2020-08-25 17:10] VITALS: BP 138/67; PULSE 100; RESP 16; TEMP 34.3; O2SAT 100; BMI 24.4
[2020-08-25 17:20] LABS: Bedside Glucose > 500 mg/dL (70-110)
[2020-08-25 17:45] LABS: Bedside Glucose > 500 mg/dL (70-110)
[2020-08-25] MEDS: 0.9% Normal Saline 1,000 ML 999 ML IV (18:00)
--- NOTE | 2020-08-25 18:02 | RAD_ITS ---
STUDY: X-RAY CHEST REASON FOR EXAM: Female, 65 years old. Hyperglycemia. TECHNIQUE: Single AP portable view of the chest. COMPARISON: 07/18/2020. FINDINGS: Telemetry wires overlie the chest. The lungs are clear and expanded. There is no demonstrated pleural abnormality. Sternal cerclage wires and vascular clips are present from a prior sternotomy and coronary artery bypass graft procedure (CABG). The heart is normal in size. Normal mediastinum and jovan. Normal visualized pulmonary arteries. There is atherosclerotic calcification of the aortic arch with tortuosity. No visualized osseous changes. There is no demonstrated abnormality of the visualized soft tissue structures of the upper abdomen. RAD/Chest 1 View (Portable) IMPRESSION: No acute cardiopulmonary disease or interval change. Electronically Signed: Nico Qiu DO at 19:15 EST Tel [phone], Service support ,
--- NOTE | 2020-08-25 18:02 | EKG12_ITS ---
Test Reason : DYSRHYTHMIA Blood Pressure : / mmHG Vent. Rate : 097 BPM Atrial Rate : 097 BPM P-R Int : 140 ms QRS Dur : 070 ms QT Int : 372 ms P-R-T Axes : 041 018 069 degrees QTc Int : 472 ms Normal sinus rhythm Normal ECG Confirmed by HENRY BARFIELD, DAYANA ([id number]), video tape editor TAQUERIA CHAMBERLAIN ([id number]) on 08/26/2020 1:09:40 PM Referred By: CHICA Confirmed By:DAYANA FIGUEROA MD
--- NOTE | 2020-08-25 18:03 | CT_ITS ---
STUDY: CT BRAIN WITHOUT CONTRAST REASON FOR EXAM: Female, 65 years old. Headache top of the head. Elevated blood sugar. Hypertension. History of uterine cancer. RADIATION DOSAGE (If Supplied By Facility): CTDIvol = ( 60.81 ) mGy, DLP = ( 1067.08 ) mGycm TECHNIQUE: Transaxial CT imaging of the brain was performed without administration of intravenous contrast material. Individualized dose optimization techniques were used for this CT. COMPARISON: 03/28/2020. FINDINGS: Normal soft tissue structures. Normal calvarium. Normal size ventricles and extra-axial spaces for the patient''s age. Normal white matter tracts of the cerebral hemispheres. There are small punctate calcifications of the basal ganglia which are seen in the aging brain as a normal variant. Normal brainstem. Normal cerebellum. There is no intracranial hemorrhage. There are no findings of an acute ischemic infarction. Normal visualized paranasal sinuses. CT/Brain/Head without Contrast IMPRESSION: No acute intracranial or calvarial abnormality. There is no major interval change. Electronically Signed: Nico Qiu DO at 19:30 EST Tel [phone], Service support ,
[2020-08-25 18:17] LABS: Absolute Neutrophil Count 4.3 X10^3/uL (2.0-7.7); Basophil# 0.05 X10^3/uL; Basophil% 0.6 % (0-1); Eosinophils% 2.6 % (0-5); Hematocrit 36.8 % (37-47); Hemoglobin 12.5 g/dL (12.0-15.0); Lymphocyte % 33.8 % (19-41); Mean Corpuscular Hgb 31.3 pg (27.0-32.0); Mean Corpuscular Volume 92.2 fL (81-99); Mean Platelet Vol. 11.1 fl (6.2-12.0); Monocyte# 0.47 X10^3/uL; Monocyte% 6.1 % (0-10); NRBC Flagged by Analyzer 0 % (0-5); Neutrophil # 4.31 X10^3/uL (2.7-7.7); Platelet Count 240 K/mm3 (150-450); RBC Distribution Width CV 12.2 % (11.6-14.6); RBC Distribution Width SD 40.8 fl (35.1-43.9); Red Blood Count 3.99 M/mm3 (4.2-5.4); White Blood Count 7.7 K/mm3 (4.4-11.0)
[2020-08-25] MEDS: Ondansetron 4 MG/2 ML Vial IV (18:17)
[2020-08-25] MEDS: Morphine 4 MG/ML Syringe IV (18:17)
[2020-08-25 18:35] LABS: Anion Gap 13 (5-15); BUN 16 mg/dL (7-18); BUN/Creat Ratio 10.9 RATIO (10-20); Chloride 97 mmol/L (98-107); Creatinine, Serum 1.47 mg/dL (0.55-1.02); EST Glomerular Filtration Rate 38 mL/min (>60); Est Glom Filt Rate - Afr Amer 46 mL/min (>60); Estimated Creatinine Clearance 30.72 ml/min; Glucose 676 mg/dL (74-106); Potassium 4.4 mmol/L (3.5-5.1); Sodium Level 133 mmol/L (136-145)
[2020-08-25 18:39] LABS: Hemoglobin A1c 12.6 % (3.8-5.6)
[2020-08-25 18:55] LABS: Bacteria 0 SEEN /hpf (None Seen); Mucous, Urine 0 SEEN /hpf (<or=2+); Red Blood Cells-Urine 0 SEEN /hpf (0-5); Squamous Epithelial Cells - UA 0 SEEN /hpf (5-10); White Blood Cells 0 SEEN /hpf (0-5)
--- NOTE | 2020-08-25 18:58 | ED.DCSUM_ITS ---
- ER Visit Summary Date of Service: 08/25/20 Chief Complaint: Elevated blood sugar History of Present Illness: The patient is a [address] Chavez. She reports that her blood sugar this morning was 126. If she attempted to measure this again just prior to coming to the emergency department and states that it was high. She states that she is on Metformin at 1000 mg twice daily. Her last dose was this morning. She typically takes her second dose at 9 PM. Reports that she is also on 10 units of FlexPen insulin twice daily. Her last dose was at 8:00 this morning. Patient reports that she has a substernal chest pain that began at 530. She describes it as a ton of bricks. States that 10 currently 1010 at worst. Nothing makes this better or worse. She denies any associated nausea, vomiting, diaphoresis, shortness of breath. Physical Examination: Vitals: Stable. Afebrile. General: Well-nourished and well-developed. Head: Normocephalic atraumatic. Neck: Supple, no lymphadenopathy. No JVD. Nontender. Cardiovascular: Regular rate and rhythm. No murmurs. Respiratory: No respiratory distress. Clear to auscultation bilaterally. Abdominal: Soft, nontender, nondistended, normal bowel sounds. No guarding, rebound, or peritoneal signs. Back: Nontender. Extremities: Nontender, no edema. Skin: Normal color, no rash. Neurologic: Alert and oriented ?3. Cranial nerves II through XII are intact. Normal strength and sensation. Psych: Normal affect. Test Results: EKG is sinus at [address] changes. Repeat EKG is unchanged. Troponin is negative. Repeat troponin is negative. Serum ketones are negative. UA shows glucose only. No evidence of infection. Chem-7 shows a sodium 133. However, this is normal when corrected for glucose of 676. Chloride is 97. Creatinine is 1.47. CBC shows hematocrit of 36.8. Hemoglobin A1c is 12.6. Venous blood gas shows a pH of 7.42. Clinical Impression(s) from Imaging Studies Chest X-Ray 08/25/20 18:02 IMPRESSION: No acute cardiopulmonary disease or interval change. Electronically Signed: Nico Qiu DO at 19:15 EST Tel [phone], Service support , Brain CT 08/25/20 18:03 IMPRESSION: No acute intracranial or calvarial abnormality. There is no major interval change. Electronically Signed: Nico Qiu DO at 19:30 EST Tel [phone], Service support , Emergency Department Course and Treatment: Patient was given a liter of normal saline. She was given 16 units of insulin subcu. She was given 1000 g of Metformin p.o. Repeat blood sugar is 348. Discussed with her that hemoglobin A1c indicates that her blood sugars been approximately 300 on average over the past 3 months. Also discussed with her her chest pain. Reviewing the computer shows that she had a normal stress test in July. I do not think that there is an indication for admission for further evaluation. Would not make sense to stress her again. Her symptoms are atypical and I do not think that she needs a heart catheterization. Treatment Plan: Patient will be discharged instructions to take her insulin and Metformin as previously prescribed. Follow-up with Dr. Chavez in 1 to 2 days if not improving. Return to the emergency department for any worsening symptoms. Disposition: To home in improved and stable condition. Impression: 1. Hyperglycemia. 2. Type 2 diabetes mellitus. 3. Atypical chest pain. This note was generated with [employer] dictation software. It may contain incorrect words, spelling, and punctuation that were not noted in review of the chart prior to signing ED Disposition - Plan for ED Patient: Disposition: Home or Assisted Living Instructions: ED Chest Pain Atypical Unkn Cause, ED Diabetic Hyperglycemia Referrals: Charles Chavez Chi, MD [Primary Care Provider] - 1-2 Days if not improving
[2020-08-25 19:11] LABS: Color, Urine Yellow (Yellow); Glucose, Dipstick 250 mg/dl (Normal); Ketone-Dipstick Negative (Negative); Leukocyte Esterase-Dipstick Negative /ul (Negative); Nitrite-Dipstick Negative (Negative); Occult Blood-Urine Negative /ul (Negative); Protein-Dipstick 15 mg/dl (Negative); Urine Bilirubin Dipstick Negative (Negative); Urine Clarity Clear (Clear); Urine Urobilinogen Normal (Normal)
--- NOTE | 2020-08-25 19:16 | CPS ---
VBG ran had too many air bubbles when I did re-draw with ABG kit. Dr. Pedraza notified of this, and he verbalized it was okay. (checked for pH and possibility of DKA)
[2020-08-25] MEDS: metFORMIN HCl 1,000 MG Tablet 1000 MG PO (19:28)
[2020-08-25] MEDS: Insulin Lispro 100 UNIT/ML INSULN.PEN 16 UNIT SC (19:29)
[2020-08-25 19:30] VITALS: BP 128/60; PULSE 89; RESP 18; O2SAT 99
--- NOTE | 2020-08-25 20:14 | EKG12_ITS ---
Test Reason : DYSRHYTHMIA Blood Pressure : / mmHG Vent. Rate : 088 BPM Atrial Rate : 088 BPM P-R Int : 150 ms QRS Dur : 082 ms QT Int : 404 ms P-R-T Axes : 067 024 058 degrees QTc Int : 488 ms Normal sinus rhythm Normal ECG Confirmed by HENRY BARFIELD, DAYANA ([id number]), editor index TAQUERIA CHAMBERLAIN ([id number]) on 08/26/2020 1:09:58 PM Referred By: CHICA Confirmed By:DAYANA FIGUEROA MD
[2020-08-25 20:35] LABS: Bedside Glucose 348 mg/dL (70-110)
[2020-08-25 21:08] VITALS: BP 115/69; PULSE 95; RESP 16; O2SAT 98
[2020-08-25 21:30] VITALS: BP 102/69; PULSE 92; RESP 19; O2SAT 98
== END 2020-08-25 21:30 | disposition home or self-care (01) ==
LOC: ED 18:01
PROVIDERS: Emergency Provider Emergency Medicine; PCP Family Medicine Geriatric Medicine
DX: E11.65 Type 2 diabetes mellitus with hyperglycemia (principal); R19.7 Diarrhea, unspecified; R07.89 Other chest pain; I10 Essential (primary) hypertension; I25.10 Atherosclerotic heart disease of native coronary artery without angina pectoris; E78.00 Pure hypercholesterolemia, unspecified; Z95.1 Presence of aortocoronary bypass graft; Z79.4 Long term (current) use of insulin; Z79.82 Long term (current) use of aspirin; Z79.899 Other long term (current) drug therapy
CPT/HCPCS: 70450; 71045; 80048; 81001; 82009; 82803; 82962; 83036; 84484; 85025; 93005; 96361; 96372; 96374; 96375; 99284; J7030; A4216; J2405

== ENCOUNTER 2020-08-30 15:34 | Emergency (ER) | payer MEDICARE, SELFPAY ==
[2017-03-16 08:30] VITALS: BMI 29.2
[2020-08-30 15:35] VITALS: BP 127/67; PULSE 104; RESP 17; TEMP 36.6; O2SAT 100; BMI 25.3
--- NOTE | 2020-08-30 16:36 | EKG12_ITS ---
Test Reason : Blood Pressure : / mmHG Vent. Rate : 085 BPM Atrial Rate : 085 BPM P-R Int : 152 ms QRS Dur : 080 ms QT Int : 390 ms P-R-T Axes : 051 022 064 degrees QTc Int : 464 ms Normal sinus rhythm Normal ECG Confirmed by ADRIAN BARFIELD, DAVID ([id number]), film editor supervisor TAQUERIA CHAMBERLAIN ([id number]) on 09/01/2020 9:42:30 AM Referred By: CHICA Confirmed By:DAVID CAMPBELL MD
[2020-08-30 16:47] LABS: Absolute Lymphocyte Count 1.98 X10^3/uL (0.83-4.51); Absolute Neutrophil Count 4.6 X10^3/uL (2.0-7.7); Basophil# 0.05 X10^3/uL; Basophil% 0.7 % (0-1); Eosinophil# 0.16 X10^3/uL; Eosinophils% 2.2 % (0-5); Hematocrit 37.9 % (37-47); Hemoglobin 12.8 g/dL (12.0-15.0); Lymphocyte # 1.98 X10^3/ul (4.0); Lymphocyte % 27.2 % (19-41); Mean Corp Hgb Conc 33.8 g/dL (32-36); Mean Corpuscular Hgb 32.2 pg (27.0-32.0); Mean Corpuscular Volume 95.2 fL (81-99); Mean Platelet Vol. 11.3 fl (6.2-12.0); Monocyte# 0.47 X10^3/uL; Monocyte% 6.4 % (0-10); NRBC Flagged by Analyzer 0 % (0-5); Neutrophil # 4.56 X10^3/uL (2.7-7.7); Neutrophil % 62.5 % (47-70); Platelet Count 246 K/mm3 (150-450); RBC Distribution Width CV 12.5 % (11.6-14.6); RBC Distribution Width SD 43.3 fl (35.1-43.9); Red Blood Count 3.98 M/mm3 (4.2-5.4); White Blood Count 7.3 K/mm3 (4.4-11.0)
[2020-08-30] MEDS: DiphenhydrAMINE 50 MG/ML Syringe 25 MG IV (17:07)
[2020-08-30] MEDS: Metoclopramide 10 MG/2 ML Vial IV (17:07)
[2020-08-30] MEDS: 0.9% Normal Saline 1,000 ML 1000 ML IV (17:08)
[2020-08-30 17:11] LABS: Bacteria 0 SEEN /hpf (None Seen); Color, Urine Yellow (Yellow); Glucose, Dipstick 250 mg/dl (Normal); Ketone-Dipstick Negative (Negative); Leukocyte Esterase-Dipstick 25 /ul (Negative); Mucous, Urine 0 SEEN /hpf (<or=2+); Nitrite-Dipstick Negative (Negative); Occult Blood-Urine Negative /ul (Negative); Protein-Dipstick Negative (Negative); Red Blood Cells-Urine 0 SEEN /hpf (0-5); Urine Bilirubin Dipstick Negative (Negative); Urine Clarity Clear (Clear); Urine Urobilinogen Normal (Normal); White Blood Cells 0 SEEN /hpf (0-5)
[2020-08-30 17:15] LABS: Anion Gap 4 (5-15); BUN 17 mg/dL (7-18); BUN/Creat Ratio 11.9 RATIO (10-20); Calcium,Total 9.3 mg/dL (8.5-10.1); Chloride 99 mmol/L (98-107); Creatinine, Serum 1.43 mg/dL (0.55-1.02); EST Glomerular Filtration Rate 39 mL/min (>60); Est Glom Filt Rate - Afr Amer 47 mL/min (>60); Estimated Creatinine Clearance 31.58 ml/min; Glucose 566 mg/dL (74-106); Sodium Level 132 mmol/L (136-145)
[2020-08-30 17:17] LABS: Squamous Epithelial Cells - UA 0-5 SEEN /hpf (5-10)
--- NOTE | 2020-08-30 17:26 | ED.VISSUMM ---
- ER Visit Summary Date of Service: 08/30/20 Chief Complaint: High blood sugar History of Present Illness: The patient is a [address] Chavez. She reports that she takes 1000 mg Metformin twice daily her last dose was this morning. She uses an insulin FlexPen. She until earlier this week has been taking 10 units twice daily. States that it was increased to 20 units twice daily. Her last dose was this morning. States that her blood sugar is 132 yesterday. At 130 this afternoon it was 491. She got home from [place] where she ate a turkey and broccoli and was and her glucometer read high when she tried to measure her blood sugar. On review of systems patient reports she is been nauseated. She has had 2 episodes of diarrhea today. No blood in her stools or black tarry stools. She reports has had an odor to her urine since yesterday. She has a headache is 9-10 severity. Says sharp diffuse headache is similar to prior headaches. Physical Examination: Vitals: Stable. Afebrile. General: Well-nourished and well-developed. Head: Normocephalic atraumatic. Neck: Supple, no lymphadenopathy. No JVD. Nontender. Cardiovascular: Regular rate and rhythm. No murmurs. Respiratory: No respiratory distress. Clear to auscultation bilaterally. Abdominal: Soft, nontender, nondistended, normal bowel sounds. No guarding, rebound, or peritoneal signs. Back: Nontender. Extremities: Nontender, no edema. Skin: Normal color, no rash. Neurologic: Alert and oriented ?3. Cranial nerves II through XII are intact. Normal strength and sensation. Psych: Normal affect. Test Results: EKG is sinus at 85 with no acute changes. Troponin is negative. UA is negative. Chem-7 shows a sodium 132 which is normal when corrected for her glucose of 566. Creatinine is 1.43. CBC shows immature monocytes 1.0%. Emergency Department Course and Treatment: Patient was given a dose of Reglan and Benadryl IV for her headache. I do not think opiate-based medications are indicated. She was given a liter of normal saline. She was given her evening dose of Metformin p.o. She was given insulin subcu. I reviewed the patient's recent visit. I question whether or not she is compliant with her diabetes medications. Treatment Plan: Patient will be discharged instructions to take her Metformin and insulin as previously scribed. Follow-up with Dr. Chavez in 1 to 2 days if not improving. Return to the emergency department for any worsening symptoms. Disposition: To home in improved and stable condition. Impression: 1. Hyperglycemia. 2. Type 2 diabetes mellitus. This note was generated with [employer] software. It may contain incorrect words, spelling, and punctuation that were not noted in review of the chart prior to signing ED Disposition - Plan for ED Patient: Instructions: ED Diabetic Hyperglycemia Referrals: Charles Chavez Chi, MD [Primary Care Provider] - 1-2 Days if not improving
[2020-08-30] MEDS: metFORMIN HCl 1,000 MG Tablet 1000 MG PO (17:48)
[2020-08-30] MEDS: Insulin Lispro 100 UNIT/ML INSULN.PEN 14 UNIT SC (17:48)
[2020-08-30 18:04] VITALS: BP 125/69; PULSE 98; RESP 15; O2SAT 99
[2020-08-30 18:11] LABS: Bedside Glucose 339 mg/dL (70-110)
[2020-08-30 18:11] LABS: Bedside Glucose > 500 mg/dL (70-110)
== END 2020-08-30 18:04 | disposition home or self-care (01) ==
LOC: ED 16:20
PROVIDERS: Emergency Provider Emergency Medicine; PCP Family Medicine Geriatric Medicine
DX: E11.65 Type 2 diabetes mellitus with hyperglycemia (principal); I10 Essential (primary) hypertension; I25.10 Atherosclerotic heart disease of native coronary artery without angina pectoris; J44.9 Chronic obstructive pulmonary disease, unspecified; E78.00 Pure hypercholesterolemia, unspecified; Z79.4 Long term (current) use of insulin; Z79.82 Long term (current) use of aspirin; Z79.899 Other long term (current) drug therapy
CPT/HCPCS: 80048; 81001; 82962; 84484; 85025; 93005; 96361; 96372; 96374; 96376; 99285; J7030; A4216

== ENCOUNTER 2020-09-07 15:00 | Emergency (ER) | payer MEDICARE, SELFPAY ==
[2017-03-16 08:30] VITALS: BMI 29.2
[2020-09-07 15:02] VITALS: BP 149/71; PULSE 114; RESP 15; TEMP 36.6; O2SAT 100; BMI 24.8
--- NOTE | 2020-09-07 15:10 | CT_ITS ---
STUDY: CT BRAIN WITHOUT CONTRAST REASON FOR EXAM: Female, 65 years old. Head trauma, on blood thinners, headache, hypertension RADIATION DOSAGE (If Supplied By Facility): CTDIvol = ( 44.99 ) mGy, DLP = ( 796.11 ) mGycm TECHNIQUE: Transaxial CT imaging of the brain was performed without administration of intravenous contrast material. Individualized dose optimization techniques were used for this CT. COMPARISON: No relevant priors. FINDINGS: Brain parenchyma is without focal lesions, mass effect, acute intracranial hemorrhage, extra parenchymal fluid collections, hydrocephalus or herniation. The skull is intact. CT/Brain/Head without Contrast IMPRESSION: 1. Normal CT brain. Electronically Signed: Sangeetha Richardson, at 15:32 EST Tel , Service support ,
--- NOTE | 2020-09-07 15:13 | ED.DCSUM_ITS ---
- ER Visit Summary Date of Service: 09/07/20 Chief Complaint: Head injury History of Present Illness: The patient is a [address] Chavez. She is on Plavix. She reports that she was moving furniture with her at 130 this afternoon when the furniture was pushed into her and she fell back and hit her head. She did have a loss of consciousness. She complains of a headache that is 10 of 10 severity. She complains of low back pain is 8 out of 10 in severity. She denies any other injuries. No shoulder, wrist, or hip pain. Physical Examination: Vitals: Stable. Afebrile. Head: Soft tissue swelling and mild tenderness palpation of the left parietal occipital region. There is no laceration. Neck: No vertebral tenderness. Full ROM without difficulty. Cleared by NEXUS criteria. Back: No vertebral tenderness. Mild tenderness palpation in the right buttock at the sciatic notch. General: A&O x 3. NAD. Cardiovascular exam: Regular rate and rhythm, no murmur, rub or gallop. Respiratory exam: Chest nontender. No crepitus. Clear to auscultation bilaterally. No wheezes or stridor. Abdominal exam: Soft, nontender, nondistended, normal bowel sounds. No pain in RUQ or LUQ specifically. No peritoneal signs. Extremity: Atraumatic. No pain with range of motion. Test Results: CT brain is negative. Pelvis x-ray is negative. Emergency Department Course and Treatment: Patient reports that she took Tylenol prior to arrival. She is allergic to ibuprofen. I do not feel that opiate- based medications are warranted. Treatment Plan: Patient will be discharged with symptomatic care. Follow-up with Dr. Chavez in 1 week for another exam. Return to the emergency department for any worsening symptoms. Disposition: To home in improved and stable condition. Impression: 1. Concussion. 2. Right buttock pain, acute. This note was generated with [employer] dictation software. It may contain incorrect words, spelling, and punctuation that were not noted in review of the chart prior to signing ED Disposition - Plan for ED Patient: Instructions: ED Concussion Referrals: Charles Chavez Chi, MD [Primary Care Provider] - 1 Week
--- NOTE | 2020-09-07 15:19 | RAD_ITS ---
STUDY: X-RAY - PELVIS REASON FOR EXAM: Female, 65 years old. Posterior pelvic pain, injury TECHNIQUE: One view of the pelvis was obtained. COMPARISON: None. FINDINGS: The bones of the pelvis are intact and located. RAD/Pelvis 1 or 2 Views IMPRESSION: Normal x-ray examination of the pelvis. Electronically Signed: Sangeetha Richardson, at 15:45 EST Tel , Service support ,
== END 2020-09-07 15:58 | disposition home or self-care (01) ==
LOC: ED 15:47
PROVIDERS: Emergency Provider Emergency Medicine; PCP Family Medicine Geriatric Medicine
DX: S06.0X9A Concussion with loss of consciousness of unspecified duration, initial encounter (principal); M54.5 Low back pain; W19.XXXA Unspecified fall, initial encounter; Y93.9 Activity, unspecified; Y92.9 Unspecified place or not applicable; I10 Essential (primary) hypertension; I25.10 Atherosclerotic heart disease of native coronary artery without angina pectoris; E11.9 Type 2 diabetes mellitus without complications; E78.00 Pure hypercholesterolemia, unspecified; Z90.49 Acquired absence of other specified parts of digestive tract; Z79.4 Long term (current) use of insulin; Z79.02 Long term (current) use of antithrombotics/antiplatelets; Z79.899 Other long term (current) drug therapy
CPT/HCPCS: 70450; 72170; 99283

== ENCOUNTER 2020-09-24 09:30 | Outpatient (RCR) | payer MEDICARE, SELFPAY ==
[2017-03-16 08:30] VITALS: BMI 29.2
[2020-09-15 13:23] VITALS: BMI 25.3
== END 2020-09-24 23:59 | disposition home or self-care (01) ==
LOC: DC 09:30
PROVIDERS: PCP Family Medicine Geriatric Medicine; Visit Provider Family Medicine Geriatric Medicine
DX: Z71.3 Dietary counseling and surveillance (principal); E11.9 Type 2 diabetes mellitus without complications
CPT/HCPCS: 97802; G0108

== ENCOUNTER 2020-10-05 20:54 | Emergency (ER) | payer MEDICARE, SELFPAY ==
[2017-03-16 08:30] VITALS: BMI 29.2
[2020-09-15 13:23] VITALS: BMI 25.3
[2020-10-05 20:54] VITALS: BP 179/119; PULSE 108; RESP 20; TEMP 36.4; O2SAT 99; BMI 26.5
--- NOTE | 2020-10-05 20:59 | EKG12_ITS ---
Test Reason : CP Blood Pressure : / mmHG Vent. Rate : 101 BPM Atrial Rate : 101 BPM P-R Int : 150 ms QRS Dur : 070 ms QT Int : 354 ms P-R-T Axes : 055 018 051 degrees QTc Int : 459 ms Sinus tachycardia Otherwise normal ECG Confirmed by TJ BARFIELD, GLORY ([id number]), editor newspaper TAQUERIA CHAMBERLAIN ([id number]) on 10/09/2020 10:20:59 AM Referred By: DR MON[place] Confirmed By:AL SPENCER MD
[2020-10-05 21:00] VITALS: BP 168/91; PULSE 105
[2020-10-05] MEDS: Aspirin 81 MG TAB.CHEW 324 MG PO (21:05)
--- NOTE | 2020-10-05 21:08 | RAD_ITS ---
STUDY: X-RAY CHEST REASON FOR EXAM: Female, 65 years old. mid sternal CP, SOB, feels like her heart is pounding and feels and quot;shaky and quot;. TECHNIQUE: AP COMPARISON: 08/25/2020 FINDINGS: Sternal wires and prosthetic aortic valve noted. Nodular density in the right lung base is new since the prior study. There is no demonstrated pleural abnormality. Normal size heart. Normal mediastinum and jovan. Normal visualized pulmonary arteries. Normal visualized aortic arch and descending thoracic aorta. Normal visualized thoracic spine. Normal visualized ribs, clavicles, and shoulders. There is no demonstrated abnormality of the visualized soft tissue structures of the upper abdomen. RAD/Chest 1 View (Portable) IMPRESSION: 1. 12 mm nodular density in the right lung base is new. May represent localized pneumonitis, atelectasis or overlying chest wall artifact. Electronically Signed: Marshal Warren MD (Brooks) at 21:23 EST , Service support ,
[2020-10-05 21:12] LABS: Absolute Lymphocyte Count 3.06 X10^3/uL (0.83-4.51); Absolute Neutrophil Count 2.9 X10^3/uL (2.0-7.7); Basophil# 0.05 X10^3/uL; Basophil% 0.7 % (0-1); Eosinophil# 0.17 X10^3/uL; Eosinophils% 2.5 % (0-5); Hemoglobin 13.4 g/dL (12.0-15.0); Lymphocyte # 3.06 X10^3/ul (4.0); Lymphocyte % 45.5 % (19-41); Mean Corp Hgb Conc 33.5 g/dL (32-36); Mean Corpuscular Hgb 31.7 pg (27.0-32.0); Mean Corpuscular Volume 94.6 fL (81-99); Mean Platelet Vol. 10.2 fl (6.2-12.0); Monocyte# 0.45 X10^3/uL; Monocyte% 6.7 % (0-10); NRBC Flagged by Analyzer 0 % (0-5); Neutrophil # 2.93 X10^3/uL (2.7-7.7); Neutrophil % 43.7 % (47-70); Platelet Count 280 K/mm3 (150-450); RBC Distribution Width SD 41.4 fl (35.1-43.9); Red Blood Count 4.23 M/mm3 (4.2-5.4); White Blood Count 6.7 K/mm3 (4.4-11.0)
[2020-10-05 21:15] LABS: Bedside Glucose 233 mg/dL (70-110)
[2020-10-05 21:34] LABS: Anion Gap 5 (5-15); BUN 12 mg/dL (7-18); Calcium,Total 9.2 mg/dL (8.5-10.1); Chloride 105 mmol/L (98-107); Creatinine, Serum 0.86 mg/dL (0.55-1.02); EST Glomerular Filtration Rate 70 mL/min (>60); Est Glom Filt Rate - Afr Amer 85 mL/min (>60); Estimated Creatinine Clearance 52.51 ml/min; Glucose 229 mg/dL (74-106); Sodium Level 137 mmol/L (136-145)
[2020-10-05 22:00] VITALS: BP 155/89; PULSE 93; RESP 17; O2SAT 97
--- NOTE | 2020-10-05 22:14 | EKG12_ITS ---
Test Reason : REPEAT Blood Pressure : / mmHG Vent. Rate : 086 BPM Atrial Rate : 086 BPM P-R Int : 156 ms QRS Dur : 072 ms QT Int : 386 ms P-R-T Axes : 062 014 052 degrees QTc Int : 461 ms Normal sinus rhythm Normal ECG Confirmed by TJ BARFIELD, GLORY ([id number]), editorial project manager TAQUERIA CHAMBERLAIN ([id number]) on 10/09/2020 10:21:12 AM Referred By: RUBÉN Confirmed By:AL SPENCER MD
--- NOTE | 2020-10-05 22:57 | ED.VISSUMM ---
- ER Visit Summary Date of Service: 10/05/20 Chief Complaint: Chest pain History of Present Illness: The patient is a [address] Chavez and Dr. Hernandez. She reports that approximately 10 to 15 minutes ago while at rest she had the onset of a dull substernal chest pain. No radiation of this pain. 9-10 at worst and 7-10 currently. It is worsened by stretching and leaning back. Is relieved by nothing. She denies any associated nausea, vomiting, or diaphoresis. Does report that she is short of breath. Patient denies any fever, chills, cough, or other complaints. Physical Examination: Vitals: Stable. Afebrile. General: Well-nourished and well-developed. Head: Normocephalic atraumatic. Neck: Supple, no lymphadenopathy. No JVD. Nontender. Cardiovascular: Regular rate and rhythm. No murmurs. Respiratory: No respiratory distress. Clear to auscultation bilaterally. Abdominal: Soft, nontender, nondistended, normal bowel sounds. No guarding, rebound, or peritoneal signs. Back: Nontender. Extremities: Nontender, no edema. Skin: Normal color, no rash. Neurologic: Alert and oriented ?3. Cranial nerves II through XII are intact. Normal strength and sensation. Psych: Normal affect. Test Results: EKG sinus tach at [address] changes. This is unchanged from last month. Repeat EKG is unchanged. CBC shows segmented neutrophils of 44 lymphs at 46. Chem-7 shows a glucose of 229. Troponin is negative. Clinical Impression(s) from Imaging Studies Chest X-Ray 10/05/20 21:08 IMPRESSION: 1. 12 mm nodular density in the right lung base is new. May represent localized pneumonitis, atelectasis or overlying chest wall artifact. Electronically Signed: Marshal Warren MD (Brooks) at 21:23 EST , Service support , Emergency Department Course and Treatment: Patient is resting comfortably. She was given aspirin p.o. Treatment Plan: Patient will have a 3-hour troponin obtained. If this is negative I feel that she is suitable candidate for further outpatient evaluation. Disposition: Pending Impression: 1. Atypical chest pain. 2. Hyperglycemia with [id number] diabetes mellitus. This note was generated with [employer] dictation software. It may contain incorrect words, spelling, and punctuation that were not noted in review of the chart prior to signing ED Disposition - Plan for ED Patient: Instructions: ED Chest Pain, Uncertain Cause Referrals: Charles Chavez Chi, MD [Primary Care Provider] - As soon as possible
[2020-10-06 01:00] VITALS: BP 137/82; PULSE 92; RESP 18; O2SAT 98
[2020-10-06 01:38] VITALS: BP 132/77; PULSE 92; RESP 19; O2SAT 99
== END 2020-10-06 01:41 | disposition home or self-care (01) ==
LOC: ED 21:07
PROVIDERS: Emergency Provider Emergency Medicine; PCP Family Medicine Geriatric Medicine
DX: R07.89 Other chest pain (principal); E11.65 Type 2 diabetes mellitus with hyperglycemia; I25.10 Atherosclerotic heart disease of native coronary artery without angina pectoris; I25.2 Old myocardial infarction; J44.9 Chronic obstructive pulmonary disease, unspecified; E78.00 Pure hypercholesterolemia, unspecified; Z95.5 Presence of coronary angioplasty implant and graft; Z79.4 Long term (current) use of insulin; Z79.82 Long term (current) use of aspirin; Z79.899 Other long term (current) drug therapy
CPT/HCPCS: 71045; 80048; 82962; 84484; 85025; 93005; 99284; J7030; A4216

== ENCOUNTER → 2020-10-14 15:32 | Outpatient (CLI) | payer MEDICARE, SELFPAY ==
[2017-03-16 08:30] VITALS: BMI 29.2
[2020-10-05 20:54] VITALS: BMI 26.5
[2020-10-14 16:12] LABS: Absolute Neutrophil Count 4.6 X10^3/uL (2.0-7.7); Basophil# 0.06 X10^3/uL; Basophil% 0.7 % (0-1); Eosinophil# 0.18 X10^3/uL; Eosinophils% 2.1 % (0-5); Hematocrit 35.4 % (37-47); Hemoglobin 12.1 g/dL (12.0-15.0); Lymphocyte % 36.2 % (19-41); Mean Corp Hgb Conc 34.2 g/dL (32-36); Mean Corpuscular Hgb 31.8 pg (27.0-32.0); Mean Corpuscular Volume 92.9 fL (81-99); Mean Platelet Vol. 10.5 fl (6.2-12.0); Monocyte# 0.57 X10^3/uL; Monocyte% 6.7 % (0-10); NRBC Flagged by Analyzer 0 % (0-5); Neutrophil # 4.59 X10^3/uL (2.7-7.7); Neutrophil % 53.6 % (47-70); Platelet Count 239 K/mm3 (150-450); RBC Distribution Width CV 12.1 % (11.6-14.6); RBC Distribution Width SD 41.2 fl (35.1-43.9); Red Blood Count 3.81 M/mm3 (4.2-5.4); White Blood Count 8.6 K/mm3 (4.4-11.0)
[2020-10-14 16:48] LABS: ALB/GLOB Ratio 1.1 RATIO (0.9-2.4); AST(SGOT) 17 U/L (15-37); Alanine Aminotransfer ALT/SGPT 41 U/L (13-56); Albumin, Serum 3.9 g/dL (3.2-5.0); Alkaline Phosphatase 74 U/L (45-117); Anion Gap 7 (5-15); BUN 15 mg/dL (7-18); BUN/Creat Ratio 19.2 RATIO (10-20); Calcium,Total 9.4 mg/dL (8.5-10.1); Chloride 106 mmol/L (98-107); Cholesterol 234 mg/dL (200); Creatinine, Serum 0.78 mg/dL (0.55-1.02); EST Glomerular Filtration Rate 78 mL/min (>60); Est Glom Filt Rate - Afr Amer 94 mL/min (>60); Globulin 3.4 g/dL (2.2-4.2); Glucose 172 mg/dL (74-106); High Density Lipoprotein 54 mg/dL; Potassium 4.3 mmol/L (3.5-5.1); Protein, Total 7.3 g/dL (6.4-8.2); Sodium Level 140 mmol/L (136-145); Thyroid Stim Hormone (TSH) 2.03 uIU/mL (0.358-3.74); Triglycerides 182 mg/dL; Very Low Density Lipoprotein 36 mg/dL (5-40)
== END ==
PROVIDERS: PCP Family Medicine Geriatric Medicine; Visit Provider Family Medicine Geriatric Medicine
DX: I10 Essential (primary) hypertension (principal); E78.5 Hyperlipidemia, unspecified
CPT/HCPCS: 36415; 80053; 80061; 84443; 85025

== ENCOUNTER → 2020-11-06 | Outpatient (CLI) | payer MEDICARE, SELFPAY ==
[2017-03-16 08:30] VITALS: BMI 29.2
== END | disposition home or self-care (01) ==
LOC: LABSPEC 10:32
PROVIDERS: PCP Family Medicine Geriatric Medicine; Referring Provider Family Medicine Geriatric Medicine; Visit Provider Family Medicine Geriatric Medicine
DX: R68.83 Chills (without fever) (principal)
CPT/HCPCS: 87633; 87635; C9803; U0005; U0003

== ENCOUNTER → 2020-12-16 16:43 | Outpatient (CLI) | payer MEDICARE, SELFPAY ==
[2017-03-16 08:30] VITALS: BMI 29.2
--- NOTE | 2020-12-16 16:44 | MRI_ITS ---
STUDY: MRI LEFT SHOULDER REASON FOR EXAM: Female, 65 years old. LEFT shoulder pain, stiffness, limited ROM TECHNIQUE: Standardized fat and water weighted pulse sequences were obtained in all 3 orthogonal planes. COMPARISON: X-ray dated 10/28/2020. FINDINGS: Mild/moderate supraspinatus and infraspinatus tendinosis. Mild/moderate subscapular tendon. Normal teres minor tendon. No muscle atrophy. Mild intracapsular long biceps tendinosis. Labral degeneration with anterior labral tear (axial image 12 series 2). Capsular ligaments intact with anterior inferior capsular thickening/edema (coronal image 9 series 6). Normal rotator cuff interval. Mild extracapsular biceps tenosynovitis (slightly disproportionate to the joint space fluid). Trace glenohumeral joint fluid. No subacromial subdeltoid fluid. Mild/moderate glenohumeral arthrosis predominating inferiorly. Moderate acromial clavicular joint arthrosis. Minimal anterior interval narrowing. No acute fracture, dislocation or osseous destruction. Intact coracohumeral and coracoacromial ligaments. Normal quadrilateral space. Normal axillary space. Normal deltoid muscle. Normal trapezius muscle. MRI/Upper Ext Joint Only(Routine) IMPRESSION: Rotator cuff and intracapsular long biceps without tear Labral degeneration with anterior labral tear Capsular ligament thickening/capsulitis Mild extracapsular biceps tenosynovitis and trace glenohumeral joint effusion Glenohumeral and AC joint arthrosis with minimal anterior interval narrowing Electronically Signed: Parker Russo DO at 11:41 EST Tel , Service support ,
== END ==
LOC: MRI 16:44
PROVIDERS: PCP Family Medicine Geriatric Medicine; Referring Provider Orthopaedic Surgery; Visit Provider Orthopaedic Surgery
DX: M75.00 Adhesive capsulitis of unspecified shoulder (principal)
CPT/HCPCS: 73221

== ENCOUNTER 2021-01-21 05:54 | Day surgery (SDC) | payer MEDICARE, SELFPAY ==
[2017-03-16 08:30] VITALS: BMI 29.2
[2021-01-16 08:43] LABS: Hematocrit 36.7 % (37-47); Mean Corp Hgb Conc 32.7 g/dL (32-36); Mean Corpuscular Hgb 31.1 pg (27.0-32.0); Mean Corpuscular Volume 95.1 fL (81-99); Mean Platelet Vol. 10.8 fl (6.2-12.0); Platelet Count 232 K/mm3 (150-450); RBC Distribution Width CV 12.5 % (11.6-14.6); RBC Distribution Width SD 43.2 fl (35.1-43.9); Red Blood Count 3.86 M/mm3 (4.2-5.4)
[2021-01-16 09:00] LABS: Hemoglobin A1c 7.3 % (3.8-5.6)
[2021-01-16 09:07] LABS: Anion Gap 3 (5-15); BUN 13 mg/dL (7-18); BUN/Creat Ratio 15.6 RATIO (10-20); Calcium,Total 9.3 mg/dL (8.5-10.1); Chloride 110 mmol/L (98-107); Creatinine, Serum 0.84 mg/dL (0.55-1.02); EST Glomerular Filtration Rate 72 mL/min (>60); Est Glom Filt Rate - Afr Amer 87 mL/min (>60); Glucose 118 mg/dL (74-106); Sodium Level 138 mmol/L (136-145)
[2021-01-21] VITALS (11 sets, daily range): BP systolic 120–163; BP diastolic 57–87; PULSE 64–107; RESP 16; TEMP 36.3–36.9; O2SAT 93–100; BMI 26.4
--- NOTE | 2021-01-21 06:00 | HP_ITS ---
I have re-examined the patient. There are no clinical changes since date of exam. Intake Intake Visit Reasons: LEFT SHOULDER Chief Complaint: left shoulder pain Accompanied by: Self Is patient in pain?: Yes Allergies Penicillins Allergy (Verified 01/01/21 10:15) Hives hydrocodone bitartrate [From Vicodin] Adverse Reaction (Verified 01/01/21 10:15) Vomiting ibuprofen Adverse Reaction (Verified 01/01/21 10:15) Vomiting [facility] Medical History (Updated 01/01/21 @ 10:58 by Diandra Swanson) Atherosclerotic heart disease of [place] coronary artery without angina pectoris (Chronic) Essential (primary) hypertension (Chronic) Hyperlipidemia (Chronic) Nicotine dependence (Chronic) Bipolar disorder (Chronic) COPD (chronic obstructive pulmonary disease) (Chronic) GERD (gastroesophageal reflux disease) (Chronic) Schizophrenia (Chronic) Tobacco abuse (Chronic) Type 2 diabetes mellitus (Chronic) Uncontrolled type 2 diabetes mellitus (Chronic) Abnormal finding on urinalysis (Resolved) Constipation (Resolved) Contusion of hip, left (Resolved) Cystitis (Resolved) Dysarthria (Resolved) Dysphagia (Resolved) Left-sided weakness (Resolved) TIA (transient ischemic attack) (Resolved 12/2018) CVA (cerebral vascular accident) (Ruled-out) Surgical History History of aortic valve replacement with bioprosthetic valve (Chronic 01/25/20) History of coronary artery stent placement (Resolved 03/15/17) H/O coronary artery bypass surgery (Resolved 01/25/20) H/O: hysterectomy (Resolved) History of left heart catheterization (Resolved 09/19/17) Hx of cholecystectomy (Resolved) Family History Father Heart disease Hypertension Diabetes Hyperlipidemia Mother Diabetes Heart disease Hypertension Hyperlipidemia Brother Heart disease Age 46 Sister Diabetes Cancer Hyperlipidemia Social History (Updated 01/08/21 @ 12:[address] Roseline Machado DO) alcohol intake: never substance use type: does not use HPI LEFT SHOULDER: Surgical H&P: Yes Details: Parts of this documentation were recorded by a scribe, this documentation accurately reflects the service provided and the decisions made by me, Dr. Roseline Machado DO 01/01/21 1012. SOFÍA CURTIS is a 65 year old F here today for review of her left shoulder MRI. MRI was done on: 12/16/20. Patient voiced she has not slept at all last night. Patient has limited ROM if any at all d/t her pain. Patient has had a total of three injections.Denies numbness, tingling or other associated symptoms. states pain 6-8/10 localized to shlulder, no sob/cp/fever, chills or other constiutional symptoms. Patient denies any medical changes since her last office visit. Ortho Exam Left Shoulder Testing: Yes Hawkin's, Yes Neer's, Yes Speed's, Yes TTP Biceps, No TTP AC Joint, Yes Yergason's, No AROM-Forward Elevation 0-180, No AROM-External Rotation at 90 0-60, No AROM-External Rotation at side 0-60, Yes PROM-Forward Elevation 0-180, Yes PROM-External Rotation at side 0-60, Yes PROM-External Rotation at 90 0-60, No Sulcus Sign, No jerk, No scapular winging Assessment & Plan 1. Biceps tendonitis on left M75.22 2. Rotator cuff tear M75.100 Plan Detail Health Concerns Explained patient's rotator cuff is partially torn. Patient would like to proceed with surgery to have this repaired. Patient's biceps is off her labrum. Reviewed the pre-operative plans with the patient. Risks and benefits of the procedure were fully explained, including but not limited to infection, neurovascular injury, continued pain, arthritis, stiffness, need for further surgery, re-injury, DVT, PE, general risks of anesthesia, and loss of limb or life. The patient understands all the risks and does wish to proceed with written consent. All questions answered. Patient in agreement of plan. Follow up post-op or sooner if pain, swelling, numbness or associated symptoms, or concerns develop. Follow Up post-op Coding Level of Care Code Off vis,est,level 4 Diagnoses Biceps tendonitis on left M75.22 Rotator cuff tear M75.100 COVID (Procedure Consent) Procedure Criteria Procedure Criteria: Yes Elective The surgeon/proceduralist and patient have discussed in detail the risk of exposure to and/or potential harm posed by the COVID-19 virus with having a surgery/procedure at this time versus the risk of? delaying the surgery/procedure. It is not possible to know either the risk of delaying the surgery or procedure or chance of getting an infection with perfect accuracy, but a joint decision was made between the patient and the surgeon/proceduralist ?to proceed at this time with the scheduled surgery/procedure as indicated on the consent form. [place] with patient preoperatively if we do not repair the rotator cuff we do a biceps tenotomy versus a tenodesis as she will be able to move her arm faster she developing a little bit of stiff shoulder already. Also discussed that we will provide little bit of a visible deformity [place] deformity in the arm but should not affect her overall ability to use and function with her arm. Family is aware.
[2021-01-21] MEDS: Lactated Ringers 1,000 ML 100 ML IV (06:36)
[2021-01-21 06:55] LABS: Bedside Glucose 190 mg/dL (70-110)
[2021-01-21] MEDS: Epinephrine (1 mg/ml) 1 MG/ML VIAL (07:31)
--- NOTE | 2021-01-21 07:36 | DCINST_ITS ---
Discharge Diet: No Restrictions - sling for comfort only, may remove, move shoulder/elbow as tolerated, if ambien causes adverse reaction, switch to ibuprofen pm, do not take extra tylenol medications, follow up in 2 weeks, call with concerns, remove dressings pod5 and apply bandaids to incision sites and may get incision wet pod5 Discharge Activity: May Not Drive May shower in (days): 1 Ice area for (Minutes): 20 - Every hour while awake. Weight Bearing Status: Weight bearing as tolerated Keep extremity elevated above heart level: Operative Extremity Call your doctor if your incision/area has: Continuous Slow Oozing, Sudden Increased Bleeding, Increased Pain/ Swelling, Increased Redness, Foul Smelling Discharge Call your doctor if you observe: Fever of 101 or Higher, Coldness, Increased Pain, Numbness or Tingling, Change in Color, Calf discomfort Allergies/Adverse Reactions: Allergies Penicillins Allergy (Verified 01/14/21 11:02) Hives hydrocodone bitartrate [From Vicodin] Adverse Reaction (Verified 01/14/21 11:02) Vomiting ibuprofen Adverse Reaction (Verified 01/14/21 11:02) Vomiting Medications to take at Discharge Aspirin [Adult Low Dose Aspirin EC] 81 mg PO DAILY 02/04/16 Nitroglycerin (INPATIENT USE) [Nitrostat] 0.4 mg SUBLINGUAL Q5M PRN 09/28/17 Furosemide [Lasix] 40 mg PO DAILY 11/17/18 Metformin HCl 1,000 mg PO BID 11/17/18 Clopidogrel Bisulfate [Clopidogrel] 75 mg PO DAILY 10/30/19 Glimepiride [Amaryl] 4 mg PO DAILY 10/30/19 omeprazole 40 mg capsule,delayed release 40 mg PO DAILY PRN cap 07/16/20 Gabapentin [Neurontin] 300 mg PO BIDCM 07/18/20 Isosorbide Mononitrate [Isosorbide Mononitrate ER] 30 mg PO DAILY 07/18/20 Atorvastatin Calcium [Lipitor] 40 mg PO QHS #30 tab 07/20/20 Metoprolol Tartrate [Lopressor (beta elder)] 12.5 mg PO BID tab 07/20/20 Insulin Human 70/30 [Novolog Mix 70-30 Flexpen Syrn] 15 units SC BIDCM 10/05/20 Oxycodone HCl/Acetaminophen [Percocet 5/325] 1 - 2 tablet PO Q6H PRN PRN 5 Days #28 tablet 01/21/21 Zolpidem Tartrate [Ambien (Generic)] 5 mg PO QHS PRN PRN #14 tab 01/21/21 The following prescriptions were given: Zolpidem Tartrate [Ambien (Generic)] 5 mg PO QHS PRN PRN #14 tab PRN Reason: Insomnia Transmission Status: Received by [facility] Oxycodone HCl/Acetaminophen [Percocet 5/325] 1 - 2 tablet PO Q6H PRN PRN 5 Days #28 tablet PRN Reason: Pain Transmission Status: Received by [facility] Primary Care Physician: Charles Chavez Chi, MD [Primary Care Provider] - Test Results: Test results from this visit will be discussed in further detail at your follow- up appointment, if applicable. Please Follow Up With: Roseline Machado, DO - [phone]
--- NOTE | 2021-01-21 07:37 | OP.PCM_ITS ---
Report of Operation Date of Procedure: 01/21/21 Pre-Operative Diagnosis: left shoulder adhesive capsulitis, biceps tndinos is/labral tear, rc tendinosis Post-Operative Diagnosis: same Surgery/Procedure Performed:: sals, manipulation under anesthesia, biceps tenotomy, sad/acromioplasty electronics hardware design engineer: Aaron Ye Type of Anesthesia:: General/Regional Anesthesiologist: Parker Kaur Estimated Blood Loss (mL): none Fluids Replaced: 800cc lr Description of Procedure: Preop note 65-year-old female with continued left shoulder pain. Patient denies fevers chills shortness of breath chest pain or other constitutional symptoms we did discuss a work-up from a cardiac standpoint but her pain is really anterior shoulder radiating down because of the pain in her shoulder she is not moving her left shoulder as much and she is developed a slight and early adhesive capsulitis as well which is confirmed on MRI but the prior to as well. Patient failed conservative treatment like proceed with left shoulder arthroscopy biceps tenotomy versus open tenodesis if her rotator cuff is repaired repairable or needs to be repaired we will do an open biceps tenodesis as well as the rotator cuff because she will be in a sling for 6 weeks regardless however patient elected to just do the biceps tenotomy if she hits the rotator cuff is intact. Risk benefits and alternatives were discussed with patient risk including but not limited to blood loss, blood clot, infection, neurovascular, failure procedure, loss of life and loss of limb. Patient is aware would like proceed with left shoulder arthroscopy repair as indicated. Operative note Patient seen and examined preoperative holding area. Left shoulder was marked. Patient received a preop regional block. General. Patient brought to the operating room placed supine on the operating table. Signed, anesthesia, antibiotics were administered. Patient was placed in beachchair positioning [facility] through we did recheck her blood pressure which was stable throughout. All bony promises well-padded SCDs placed on her bilateral lower extremity. The left arm was then prepped and draped in usual sterile technique. Marked out our bony landmarks for portal placement. We then timeout was performed. We then performed an evaluation under anesthesia. Patient failed the lateral last bit of forward flexion as well as at 90 degrees external rotation to this we did perform a manipulation under anesthesia prior to beginning arthroscopy. We then insufflated the glenohumeral joint for the posterior aspect. We had good return. We then use 11 blade to create a posterior portal. Began a diagnostic arthroscopy. Patient had grade 3 changes in the central aspect of her humeral head that she had corresponding grade 3 changes of on her glenoid as well. We then created anterior portal under direct visualization. We probed the biceps and was completely torn off its labrum. We then inserted a basket and resected the biceps labral junction and into reinserted a shaver to to debride back any loose pieces. To a stable rim of labrum. We then visualized the subscap which is intact the supraspinatus and infraspinatus footprint were intact as well. We then moved to the subacromial space. We used and created an lateral portal under direct visualization. Patient had extensive bursitis. We resected the extensive bursitis with combination of a shaver and ablator we did ablate any bleeders that we did encounter. We did slightly coplaned the anterolateral a spect of the acromion and agreed in the undersurface acromion because it was quite fibrinous as well. We then irrigated the subacromial space with copious nonsterile saline. The portals were closed with interrupted 4-0 nylon stitches sterile dressings were applied. Patient was placed in a sling. Patient taught procedure no complication transferred recovery room in stable condition Postoperative note Weight-bear as tolerated left upper extremity Pharmacy has prescriptions Discussed with family We will give pictures in 2 weeks Call with increased pain numbness tingling or further issues arise Dragon disclaimer this note was generated with [employer] dictation software. It may contain incorrect words, spelling, and punctuation that were not noted in checking the note before signing.
[2021-01-21] MEDS: Mupirocin Ointment 22gm Tube 1 APPLIC (08:30)
== END 2021-01-21 12:52 | disposition home or self-care (01) ==
LOC: SDC 05:54 → AC 05:54
PROVIDERS: Anesthesiology; PCP Family Medicine Geriatric Medicine; Referring Provider Orthopaedic Surgery; Visit Provider Orthopaedic Surgery
PROC: (CPT 29827; principal; 2021-01-21 07:10)
DX: M75.22 Bicipital tendinitis, left shoulder (principal); M75.02 Adhesive capsulitis of left shoulder; S43.492A Other sprain of left shoulder joint, initial encounter; I25.2 Old myocardial infarction; I11.0 Hypertensive heart disease with heart failure; I50.9 Heart failure, unspecified; I25.10 Atherosclerotic heart disease of native coronary artery without angina pectoris; E78.5 Hyperlipidemia, unspecified; F31.9 Bipolar disorder, unspecified; J44.9 Chronic obstructive pulmonary disease, unspecified; K21.9 Gastro-esophageal reflux disease without esophagitis; F20.9 Schizophrenia, unspecified; E11.9 Type 2 diabetes mellitus without complications; G47.30 Sleep apnea, unspecified; Z78.0 Asymptomatic menopausal state; Z86.73 Personal history of transient ischemic attack (TIA), and cerebral infarction without residual deficits; Z86.711 Personal history of pulmonary embolism; Z95.2 Presence of prosthetic heart valve; Z79.4 Long term (current) use of insulin; Z79.02 Long term (current) use of antithrombotics/antiplatelets; Z79.82 Long term (current) use of aspirin; Z79.899 Other long term (current) drug therapy; Z87.891 Personal history of nicotine dependence; R11.2 Nausea with vomiting, unspecified; Z98.890 Other specified postprocedural states
CPT/HCPCS: 01630; 29826; 29828; 36415; 80048; 81001; 82962; 83036; 85027; 87086; 87426; C9803; J7120; J2405

== ENCOUNTER 2021-01-21 20:45 | Emergency (ER) | payer MEDICARE, SELFPAY ==
[2017-03-16 08:30] VITALS: BMI 29.2
[2021-01-21 06:23] VITALS: BMI 26.4
[2021-01-21 20:46] VITALS: BP 152/77; PULSE 103; RESP 16; TEMP 36.7; O2SAT 99; BMI 25.7
[2021-01-21 20:55] VITALS: PULSE 98; RESP 15; O2SAT 98
[2021-01-21 21:19] LABS: Bacteria 0 SEEN /hpf (None Seen); Mucous, Urine 0 SEEN /hpf (<or=2+); Red Blood Cells-Urine 0 SEEN /hpf (0-5)
[2021-01-21 21:21] LABS: Color, Urine Yellow (Yellow); Glucose, Dipstick 250 mg/dl (Normal); Ketone-Dipstick 50 mg/dl (Negative); Leukocyte Esterase-Dipstick Negative /ul (Negative); Nitrite-Dipstick Negative (Negative); Occult Blood-Urine Negative /ul (Negative); Protein-Dipstick 30 mg/dl (Negative); Urine Bilirubin Dipstick Negative (Negative); Urine Clarity Clear (Clear); Urine Urobilinogen Normal (Normal)
[2021-01-21 21:26] LABS: Squamous Epithelial Cells - UA 0-5 SEEN /hpf (5-10); White Blood Cells 0-5 SEEN /hpf (0-5)
[2021-01-21 21:27] LABS: Hyaline Cast 0-5 SEEN /lpf (0-5)
--- NOTE | 2021-01-21 21:34 | ED.DCSUM_ITS ---
History of Present Illness Chief Complaint: Nausea/Vomiting Informant: Patient, Family Onset: Today Maximum Severity: Mild Narrative: Patient presents complaining of nausea she is status post left shoulder surgery this afternoon at this facility, she did well when she was home she began to get nauseated she began vomiting. She indicates she called her providers they indicate the prescription was not called in so they came to the emergency [facility]. She is having no fever cough chest pain abdominal pain the shoulder pain is well controlled that she received some type of a block as part of the procedure she has no history of GI ailments no diarrhea she was feeling fine immediately preop Past Medical History - Allergies and Home Meds Allergies/Adverse Reactions: Allergies Penicillins Allergy (Verified 01/21/21 20:46) Hives hydrocodone bitartrate [From Vicodin] Adverse Reaction (Verified 01/21/21 20:46) Vomiting ibuprofen Adverse Reaction (Verified 01/21/21 20:46) Vomiting Primary Care Physician: Charles Chavez Chi, MD [Primary Care Provider] - Surgical History: angioplasty, appendectomy, cholecystectomy, hysterectomy, - - CABG, mitral valve replacement, cardiac stents Smoking Status: Current every day smoker - Family History Maternal Family History: Family History (Last Reviewed 09/15/20 @ 13:[address] Jamie Mike MD) Father Heart disease Hypertension Diabetes Hyperlipidemia Mother Diabetes Heart disease Hypertension Hyperlipidemia Brother Heart disease Sister Diabetes Cancer Hyperlipidemia Family History: Reports: Cancer - Uterine cancer, Diabetes, High Cholesterol, Heart Disease, Hypertension Paternal Family History: Family History (Last Reviewed 09/15/20 @ 13:[address] Jamie Mike MD) Father Heart disease Hypertension Diabetes Hyperlipidemia Mother Diabetes Heart disease Hypertension Hyperlipidemia Brother Heart disease Sister Diabetes Cancer Hyperlipidemia Family History: Reports: Diabetes, High Cholesterol, Heart Disease, Hypertension Sibling Family History: Family History (Last Reviewed 09/15/20 @ 13:[address] Jamie Mike MD) Father Heart disease Hypertension Diabetes Hyperlipidemia Mother Diabetes Heart disease Hypertension Hyperlipidemia Brother Heart disease Sister Diabetes Cancer Hyperlipidemia Family History: Reports: Diabetes, Heart Disease, Hypertension Review of Systems General: Denies: Chills, Fever, Sweats Eyes: Denies: Visual changes - bilaterally, Diplopia ENT: Denies: Rhinorrhea, Sore throat Cardiovascular: Denies: Chest pain, Palpitations Respiratory: Denies: Dyspnea, Cough, Dyspnea on exertion Gastrointestinal: Reports: Vomiting. Denies: Abdominal pain, Nausea, Diarrhea, Melena, Hematochezia Genitourinary: Denies: Dysuria, Hematuria, Frequency Musculoskeletal: Denies: Back pain, Extremity Pain Skin: Denies: Rash, Wounds Neurological: Denies: Headache, Weakness, Numbness Physical Exam Vital Signs/Narrative: Vital Signs Temp Pulse Resp BP Pulse Ox 01/21/21 20:55 98 15 98 01/21/21 20:46 98.1 F 103 H 16 152/77 H 99 General: Well nourished, Well developed, No Acute Distress Head: Normocephalic, Atraumatic Eyes: Perrl, EOMI ENT: Moist mucous membranes, No rhinorrhea Neck: Supple, Nontender Cardiovascular: Regular rate, Regular rhythm, No murmurs Respiratory: No distress, CTA bilaterally, Chest nontender Abdomen: Soft, Nontender, Nondistended, Normal bowel sounds Back: Nontender, Normal Inspection Extremities: Nontender, No edema Skin: Normal color, No rash Neurological: Alert, Oriented x3, Cranial nerves II-XII grossly intact, Normal Strength, Normal Sensation Psychological: Normal affect, Normal Mood Diagnostic/Tx/Re-eval - Medical Decision Making Patient has a dressing to the left shoulder she wants to keep that intact she is having no shoulder complaints or issues her more distal upper left arm exam is unremarkable the abdomen is soft and nontender I explained her we can obtain ED screening evaluation with labs CT etc. versus treating with oral Zofran she reports oral Zofran with oral rehydration spoke with her attending physician explained the above we will discharge her home and put up hard prescription her hand for Zofran Home stable Final impression postoperative nausea and vomiting resolved, status post left shoulder surgery ED Disposition - Plan for ED Patient: Diagnosis: Postoperative vomiting Instructions: ED Vomiting (Adult) Prescriptions: Ondansetron [Zofran Odt] 8 mg PO Q8H PRN PRN #20 tablet PRN Reason: Nausea Prescription Printed Referrals: Charles Chavez Chi, MD [Primary Care Provider] -
[2021-01-21] MEDS: Ondansetron 8 MG Tablet PO (21:40)
[2021-01-21 22:08] VITALS: BP 147/78; PULSE 98; RESP 16; O2SAT 99
== END 2021-01-21 22:09 | disposition home or self-care (01) ==
LOC: ED 21:12
PROVIDERS: Emergency Provider Emergency Medicine; PCP Family Medicine Geriatric Medicine
DX: R11.2 Nausea with vomiting, unspecified (principal); Z98.890 Other specified postprocedural states; F17.200 Nicotine dependence, unspecified, uncomplicated
CPT/HCPCS: 81001; 87086; 99282

== ENCOUNTER → 2021-01-27 11:18 | Outpatient (CLI) | payer MEDICARE, SELFPAY ==
[2017-03-16 08:30] VITALS: BMI 29.2
[2021-01-21 20:46] VITALS: BMI 25.7
[2021-01-27 12:53] LABS: Absolute Lymphocyte Count 2.73 X10^3/uL (0.83-4.51); Absolute Neutrophil Count 5.3 X10^3/uL (2.0-7.7); Basophil# 0.07 X10^3/uL; Basophil% 0.8 % (0-1); Eosinophil# 0.27 X10^3/uL; Hematocrit 39.8 % (37-47); Hemoglobin 13.5 g/dL (12.0-15.0); Lymphocyte # 2.73 X10^3/ul (0.83-4.51); Lymphocyte % 30.3 % (19-41); Mean Corp Hgb Conc 33.9 g/dL (32-36); Mean Corpuscular Hgb 31.9 pg (27.0-32.0); Mean Corpuscular Volume 94.1 fL (81-99); Mean Platelet Vol. 10.9 fl (6.2-12.0); Monocyte# 0.58 X10^3/uL; Monocyte% 6.4 % (0-10); NRBC Flagged by Analyzer 0 % (0-5); Neutrophil % 58.8 % (47-70); Platelet Count 303 K/mm3 (150-450); RBC Distribution Width CV 12.6 % (11.6-14.6); Red Blood Count 4.23 M/mm3 (4.2-5.4)
[2021-01-27 13:06] LABS: Vitamin D,25 Hydroxy 31.5 ng/mL
[2021-01-27 13:12] LABS: ALB/GLOB Ratio 1.2 RATIO (0.9-2.4); AST(SGOT) 17 U/L (15-37); Alanine Aminotransfer ALT/SGPT 28 U/L (13-56); Albumin, Serum 4.3 g/dL (3.2-5.0); Alkaline Phosphatase 61 U/L (45-117); Anion Gap 8 (5-15); BUN 10 mg/dL (7-18); BUN/Creat Ratio 9.7 RATIO (10-20); Calcium,Total 10.6 mg/dL (8.5-10.1); Chloride 100 mmol/L (98-107); Creatinine, Serum 1.03 mg/dL (0.55-1.02); EST Glomerular Filtration Rate 57 mL/min (>60); Est Glom Filt Rate - Afr Amer 69 mL/min (>60); Globulin 3.7 g/dL (2.2-4.2); Glucose 136 mg/dL (74-106); Potassium 3.4 mmol/L (3.5-5.1); Sodium Level 138 mmol/L (136-145); Thyroid Stim Hormone (TSH) 1.05 uIU/mL (0.358-3.74)
== END ==
PROVIDERS: PCP Family Medicine Geriatric Medicine; Visit Provider Family Medicine Geriatric Medicine
DX: I10 Essential (primary) hypertension (principal); E55.9 Vitamin D deficiency, unspecified; E11.65 Type 2 diabetes mellitus with hyperglycemia
CPT/HCPCS: 36415; 80053; 82306; 84443; 85025

== ENCOUNTER 2021-03-01 12:55 | Observation (INO) | payer MEDICARE, SELFPAY ==
[2017-03-16 08:30] VITALS: BMI 29.2
[2021-03-01] VITALS (11 sets, daily range): BP systolic 104–144; BP diastolic 59–71; PULSE 63–93; RESP 16–20; TEMP 36.8–37.2; O2SAT 94–100; BMI 23.7; BMI 26.7; BMI 26.4
--- NOTE | 2021-03-01 13:18 | RAD_ITS ---
STUDY: X-RAY CHEST REASON FOR EXAM: Female, 65 years old. Chest pain TECHNIQUE: Single frontal view of the chest. COMPARISON: 10/05/2020 FINDINGS: There is no new focal consolidation. Sternal cerclage wires are present from a prior sternotomy. There is a prosthetic cardiac valve in place. The cardiac silhouette is within normal limits. Normal visualized pulmonary arteries. Normal visualized aortic arch and descending thoracic aorta. Normal visualized thoracic spine. Normal visualized ribs, clavicles, and shoulders. There is no demonstrated abnormality of the visualized soft tissue structures of the upper abdomen. RAD/Chest 1 View (Portable) IMPRESSION: No acute cardiopulmonary process. Electronically Signed: Savannah Boyd MD at 15:13 EDT Tel , Service support ,
--- NOTE | 2021-03-01 13:18 | EKG12_ITS ---
Test Reason : CP Blood Pressure : / mmHG Vent. Rate : 075 BPM Atrial Rate : 075 BPM P-R Int : 152 ms QRS Dur : 072 ms QT Int : 410 ms P-R-T Axes : 053 031 058 degrees QTc Int : 457 ms Normal sinus rhythm Normal ECG Confirmed by ADRIAN BARFIELD, DAVID ([id number]), visual effects editor TAQUERIA CHAMBERLAIN ([id number]) on 03/03/2021 9:09:03 AM Referred By: Cynthia Dobbins Confirmed By:DAVID CAMPBELL MD
--- NOTE | 2021-03-01 13:40 | ED.VIS.CHEST ---
HPI History of Present Illness Chief Complaint: Chest Pain Informant: patient Onset/Context/Timing Onset: Today Timing: Continuous Quality: Positive for Aching Location: Substernal Current Severity: Mild Maximum Severity: Mild Worsened By: Nothing Relieved By: NTG Narrative Narrative: 65-year-old female prior valvular heart surgery and prior bypass. On Plavix. States she was sitting in tenriism today she started getting chest discomfort. Took 2 sublingual nitro's which improved her symptoms. She went in the bathroom had diarrhea felt lightheaded. States she did not pass out but almost did. Denies any injuries. She was brought in by squad. Squad and treated with aspirin. She still having chest pain. Prior Similar Symptoms: Yes Recent Illness/Hospitalization: No CVD Risk Factors: Positive for Hypertension, Diabetes and Hypercholesterolemia [facility] Medical History Abnormal finding on urinalysis Anxiety and depression Atherosclerotic heart disease of [place] coronary artery without angina pectoris Biceps tendonitis on left Bipolar disorder Constipation Contusion of hip, left COPD (chronic obstructive pulmonary disease) CVA (cerebral vascular accident) Cystitis Diabetes mellitus type 2, uncontrolled Dysarthria Dysphagia Essential (primary) hypertension Fe deficiency anemia GERD (gastroesophageal reflux disease) Hyperlipidemia Left-sided weakness Nicotine dependence Nonrheumatic aortic (valve) insufficiency Schizophrenia TIA (transient ischemic attack) (12/2018) Type 2 diabetes mellitus Home Medications aspirin 81 mg PO DAILY 02/04/16 [History Last Taken 07/18/20] nitroglycerin 0.4 mg SUBLINGUAL Q5M PRN 09/28/17 [History Last Taken 07/18/20] furosemide 40 mg PO DAILY 11/17/18 [History Last Taken 07/18/20] metformin 1,000 mg PO BID 11/17/18 [History Last Taken 07/18/20] clopidogrel 75 mg PO DAILY 10/30/19 [History Last Taken 01/15/21] glimepiride 4 mg PO DAILY 10/30/19 [History Last Taken 07/18/20] omeprazole 40 mg capsule,delayed release 40 mg PO DAILY PRN cap 07/16/20 [History Last Taken 01/21/21 05:00] gabapentin 300 mg PO BIDCM 07/18/20 [History Last Taken 01/21/21 05:00] isosorbide mononitrate 30 mg PO DAILY 07/18/20 [History Last Taken 07/18/20] atorvastatin 40 mg PO QHS #30 tab 07/20/20 [Rx Last Taken Unknown] metoprolol tartrate 12.5 mg PO BID tab 07/20/20 [Rx Last Taken 01/21/21 05:00] insulin asp prt-insulin aspart 15 units SC BIDCM 10/05/20 [History Last Taken Unknown] ondansetron 8 mg PO Q8H PRN PRN #20 tablet 01/21/21 [Rx Last Taken Unknown] zolpidem 5 mg PO QHS PRN PRN #14 tab 01/21/21 [Rx Last Taken Unknown] Humalog KwikPen Insulin 13 units TID 03/01/21 [History Last Taken Unknown] Novolin 70-30 FlexPen U-100 10 units 03/01/21 [History Last Taken Unknown] Allergy/AdvReac Type Severity Reaction Status Date / Time Penicillins Allergy Hives Verified 03/01/21 12:56 hydrocodone bitartrate AdvReac Vomiting Verified 03/01/21 12:56 [From Vicodin] ibuprofen AdvReac Vomiting Verified 03/01/21 12:56 Family History (Reviewed 03/01/21 @ 16:06 by Nguyen Price COMMUNITY HEALTH NURSE STAFF, COMMUNITY HEALTH NURSE STAFF-C) Father Heart disease Hypertension Diabetes Hyperlipidemia Mother Diabetes Heart disease Hypertension Hyperlipidemia Brother Heart disease Age 46 Sister Diabetes Cancer Hyperlipidemia Surgical History H/O coronary artery bypass surgery (01/25/20) H/O: hysterectomy History of aortic valve replacement with bioprosthetic valve (01/25/20) History of coronary artery stent placement (03/15/17) History of left heart catheterization (09/19/17) History of shoulder surgery (01/2021) Hx of cholecystectomy Social History (Reviewed 03/01/21 @ 16:07 by Nguyen Price COMMUNITY HEALTH NURSE STAFF, COMMUNITY HEALTH NURSE STAFF-C) Smoking Status: Current every day smoker alcohol intake: never substance use type: does not use ROS ROS ED ROS Narrative Denies recent illness that developed diarrhea today. Review of Systems ROS Unobtainable: Denies due to encephalopathy Constitutional Constitutional ED: Denies fever(s) Eyes Eyes: Denies none ENT ENT ED: Denies ear pain or sore throat Cardiovascular Cardiovascular: Reports as per HPI and chest pain Respiratory/Chest Respiratory/Chest: Denies cough or dyspnea Gastrointestinal Gastrointestinal: Reports diarrhea; Denies abdominal pain, nausea or vomiting Genitourinary Genitourinary ED: Denies dysuria Musculoskeletal Musculoskeletal: Denies myalgias Integumentary Denies rash Neurologic Neurologic: Denies headache(s) Psychiatric Psychiatric: Denies depression Endocrine Endocrinology: Denies polyuria Hematologic/Lymphatic Hematologic/Lymphatic: Denies easy bruising Allergic/Immunologic Allergic/Immunologic ED: Denies urticaria EXAM Physical Exam Narrative Exam Narrative: Older female no acute distress. HEENT exam unremarkable. Lungs are clear to auscultation bilaterally. Heart regular rate and rhythm no murmur. Rate about 70. Abdomen soft nontender normal bowel sounds no peritoneal signs. Moving all 4 extremities. Calves are nontender without edema. Neurologically awake and alert. Const Vital Signs: 03/01/21 12:56 03/01/21 12:58 03/01/21 12:59 Temperature 98.9 F Temperature Source Temporal Pulse Rate 76 Respiratory Rate 20 H Respiratory Effort Non-Labored Short of Breath Blood Pressure 128/67 H 106/69 Blood Pressure Mean 87 81 Pulse Ox 97 Oxygen Delivery Method Room Air 03/01/21 13:52 03/01/21 15:09 Temperature Temperature Source Pulse Rate 63 Respiratory Rate 19 H Respiratory Effort Blood Pressure 131/64 H Blood Pressure Mean 86 Pulse Ox 99 Oxygen Delivery Method Room Air Room Air HEENT normocephalic and atraumatic; Negative for trauma Eyes PERRL and EOMs intact bilaterally Neck no lymphadenopathy, supple and no JVD General: Negative for tenderness Chest Wall inspection of chest normal Resp normal respiratory effort and clear to auscultation bilaterally Effort and Inspection: respiratory distress Cardio regular rate, regular rhythm and no murmurs GI normal to inspection, nondistended, normoactive bowel sounds, soft to palpation, non-tender, non-distended and no masses Back/Spine no CVA tenderness Extremity normal to inspection General Extremety ED: Negative for edema or tenderness General Extremity: Negative for edema Neuro oriented x3 Sensorium / Orientation: awake, alert, oriented to person, oriented to place and oriented to time Psych mental status grossly normal Skin no rashes or lesions noted Heart Score History: Moderately Suspicious ECG: Normal Age: >/= 65 years Risk Factors: >/= 3 Risk Factors or History of CAD Troponin: </= Normal Limit Score: 5 MDM MDM MDM Narrative Medical decision making narrative: 65-year-old female history of prior CABG and valvular heart disease. While sitting in tenriism at rest developed midsternal chest pain. Evaluation for chest pain is ongoing. Her initial EKG is a sinus rhythm with no acute signs of OR or ischemia. Most likely patient will need to be admitted. Repeat exam at 4:00 unchanged she still having chest pain she will be given nitroglycerin. A second EKG will be obtained. I will speak to the hospitalist about PCU admission. Lab Data Lab results narrative: CBC normal. Chemistries unremarkable creatinine of 1. Normal gap. Troponin normal. Portable chest x-ray 1 view interpreted by myself the radiologist shows no acute abnormality. Labs: Laboratory Results - last 24 hr 03/01/21 03/01/21 13:45 13:45 WBC 9.4 RBC 3.98 L Hgb 12.7 Hct 37.6 MCV 94.5 MCH 31.9 MCHC 33.8 RDW Std Deviation 42.4 RDW Coeff of [place] 12.1 Plt Count 240 MPV 10.7 Immature Gran % (Auto) 0.500 Neut % (Auto) 66.1 Lymph % (Auto) 23.7 Burke % (Auto) 6.3 Eos % (Auto) 2.9 Baso % (Auto) 0.5 Absolute Neuts (auto) 6.2 Absolute Lymphs (auto) 2.23 Nucleated RBC % 0 Sodium 138 Potassium 4.8 Chloride 108 H Carbon Dioxide 24.0 Anion Gap 6 BUN 21 H Creatinine 1.03 H Estim Creat Clear Calc 43.84 Est GFR (MDRD) Af Amer 69 Est GFR (MDRD) Non-Af 57 L BUN/Creatinine Ratio 20.4 H Glucose 144 H Calcium 9.4 Troponin I < 0.015 Radiography Chest X-Ray - ED: 1 View, Read by ED Physician, Read by Radiologist, Normal, Heart, Lungs, Mediastinum, Bony Structures and No Acute Disease Diagnostic Testing: Radiology Impression Chest X-Ray 03/01/21 13:18 IMPRESSION: No acute cardiopulmonary process. Electronically Signed: Savannah Boyd MD at 15:13 EDT Tel , Service support , Rhythm Strip Rhythm Strip: Sinus Rhythm Ectopy: None EKG Initial EKG: Attestation: I personally reviewed and interpreted this EKG as follows: Interpretation: Sinus Rhythm and No Acute Injury Pattern Comments: Normal sinus rhythm rate of 75 no acute signs of OR or ischemia. Prior EKG tracings: not available for review Follow-up EKG: Attestation: I personally reviewed and interpreted this EKG as follows: Interpretation: Sinus Rhythm and No Acute Injury Pattern Comments: Repeat EKG at 4:05 p.m. shows a normal sinus rhythm and is unchanged from the prior. Prior EKG tracings: available for review Prior: Unchanged Discharge Plan Triage Chief Complaint: Chest Pain ED Provider: Alec Ross Dx/Rx/DC Orders Clinical Impression: Chest pain Prescriptions: No Action omeprazole 40 mg capsule,delayed release(DR/EC) 40 mg PO DAILY PRN (Reason: Heartburn) RF: 0 aspirin 81 MG tablet,delayed release (DR/EC) 81 mg PO DAILY RF: 0 nitroglycerin 0.4 MG tablet 0.4 mg SUBLINGUAL Q5M PRN (Reason: Chest Pain) RF: 0 furosemide 40 MG tablet 40 mg PO DAILY RF: 0 metformin 1,000 MG tablet 1,000 mg PO BID RF: 0 clopidogrel 75 MG tablet 75 mg PO DAILY RF: 0 glimepiride 4 MG tablet 4 mg PO DAILY RF: 0 gabapentin 300 MG capsule 300 mg PO BIDCM RF: 0 isosorbide mononitrate 30 MG tablet extended release 24 hr 30 mg PO DAILY RF: 0 atorvastatin 40 MG tablet 40 mg PO QHS Qty: 30 RF: 0 metoprolol tartrate 25 MG tablet 12.5 mg PO BID RF: 0 insulin asp prt-insulin aspart 100 UNITS/ML insulin pen 15 units SC BIDCM RF: 0 zolpidem 5 MG tablet 5 mg PO QHS PRN PRN (Reason: Insomnia) Qty: 14 RF: 0 ondansetron 4 MG tablet 8 mg PO Q8H PRN PRN (Reason: Nausea) Qty: 20 RF: 0 Humalog KwikPen Insulin 13 UNITS 13 units TID RF: 0 Novolin 70-30 FlexPen U-100 10 UNITS 10 units RF: 0 Primary Care Provider: Charles Chavez Chi Referrals: Charles Chavez Chi, MD [Primary Care Provider] -
[2021-03-01 13:56] LABS: Absolute Lymphocyte Count 2.23 X10^3/uL (0.83-4.51); Absolute Neutrophil Count 6.2 X10^3/uL (2.0-7.7); Basophil# 0.05 X10^3/uL; Basophil% 0.5 % (0-1); Eosinophil# 0.27 X10^3/uL; Eosinophils% 2.9 % (0-5); Hematocrit 37.6 % (37-47); Hemoglobin 12.7 g/dL (12.0-15.0); Lymphocyte # 2.23 X10^3/ul (0.83-4.51); Lymphocyte % 23.7 % (19-41); Mean Corp Hgb Conc 33.8 g/dL (32-36); Mean Corpuscular Hgb 31.9 pg (27.0-32.0); Mean Corpuscular Volume 94.5 fL (81-99); Mean Platelet Vol. 10.7 fl (6.2-12.0); Monocyte# 0.59 X10^3/uL; Monocyte% 6.3 % (0-10); NRBC Flagged by Analyzer 0 % (0-5); Neutrophil % 66.1 % (47-70); Platelet Count 240 K/mm3 (150-450); RBC Distribution Width CV 12.1 % (11.6-14.6); RBC Distribution Width SD 42.4 fl (35.1-43.9); Red Blood Count 3.98 M/mm3 (4.2-5.4); White Blood Count 9.4 K/mm3 (4.4-11.0)
[2021-03-01 14:12] LABS: Anion Gap 6 (5-15); BUN 21 mg/dL (7-18); BUN/Creat Ratio 20.4 RATIO (10-20); Calcium,Total 9.4 mg/dL (8.5-10.1); Chloride 108 mmol/L (98-107); Creatinine, Serum 1.03 mg/dL (0.55-1.02); EST Glomerular Filtration Rate 57 mL/min (>60); Est Glom Filt Rate - Afr Amer 69 mL/min (>60); Estimated Creatinine Clearance 43.84 ml/min; Glucose 144 mg/dL (74-106); Potassium 4.8 mmol/L (3.5-5.1); Sodium Level 138 mmol/L (136-145)
--- NOTE | 2021-03-01 15:56 | EKG12_ITS ---
Test Reason : REPEAT CP Blood Pressure : / mmHG Vent. Rate : 067 BPM Atrial Rate : 067 BPM P-R Int : 148 ms QRS Dur : 070 ms QT Int : 422 ms P-R-T Axes : 041 022 053 degrees QTc Int : 445 ms Normal sinus rhythm Normal ECG Confirmed by ADRIAN BARFIELD, DAVID ([id number]), editor department TAQUERIA CHAMBERLAIN ([id number]) on 03/03/2021 9:45:34 AM Referred By: Cynthia Dobbins Confirmed By:DAVID CAMPBELL MD
--- NOTE | 2021-03-01 16:06 | HP.PCM.HOS_ITS ---
Documented by User: Nguyen Price NP, [employer] 03/01/21 16:53 HPI - General General Date of Admission: 03/01/21 Chief Complaint: Chest pain, near syncope. HPI Narrative SOFÍA CURTIS, is a 65 F who presents to the emergency room due to chest pain and near syncope. Patient states she was sitting down at [employer] today when she developed pressure-like chest pain. She took 2 sublingual nitros which improved her chest pain. She then went to the bathroom and had an episode of diarrhea and felt like she was going to pass out. She states her symptoms improved and she went outside to go sit at a picnic table and states she passed out and hit the ground. She reports continued mild chest discomfort however it has mostly resolved. She denies nausea, diaphoresis. Denies shortness of breath, palpitations. Patient states she has had 4 episodes of diarrhea today. Denies abdominal pain, fever, chills. 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 Biceps tendonitis on left Bipolar disorder Cancer Chest pain Constipation Contusion of hip, left COPD (chronic obstructive pulmonary disease) COPD (chronic obstructive pulmonary disease) CVA (cerebral vascular accident) Cystitis Diabetes Diabetes mellitus type 2, uncontrolled Dysarthria Dysphagia Essential (primary) hypertension Fe deficiency anemia Former smoker GERD (gastroesophageal reflux disease) GERD (gastroesophageal reflux disease) Hyperlipidemia Hypertension Left-sided weakness Myocardial infarct Nicotine dependence Nonrheumatic aortic (valve) insufficiency Pulmonary embolism Schizophrenia Sleep apnea TIA (transient ischemic attack) (12/2018) Type 2 diabetes mellitus Home Medications aspirin 81 mg PO DAILY 02/04/16 [History Last Taken 07/18/20] nitroglycerin 0.4 mg SUBLINGUAL Q5M PRN 09/28/17 [History Last Taken 07/18/20] furosemide 40 mg PO DAILY 11/17/18 [History Last Taken 07/18/20] metformin 1,000 mg PO BID 11/17/18 [History Last Taken 07/18/20] clopidogrel 75 mg PO DAILY 10/30/19 [History Last Taken 01/15/21] glimepiride 4 mg PO DAILY 10/30/19 [History Last Taken 07/18/20] omeprazole 40 mg capsule,delayed release 40 mg PO DAILY PRN cap 07/16/20 [History Last Taken 01/21/21 05:00] gabapentin 300 mg PO BIDCM 07/18/20 [History Last Taken 01/21/21 05:00] isosorbide mononitrate 30 mg PO DAILY 07/18/20 [History Last Taken 07/18/20] atorvastatin 40 mg PO QHS #30 tab 07/20/20 [Rx Last Taken Unknown] metoprolol tartrate 12.5 mg PO BID tab 07/20/20 [Rx Last Taken 01/21/21 05:00] insulin asp prt-insulin aspart 15 units SC BIDCM 10/05/20 [History Last Taken Unknown] ondansetron 8 mg PO Q8H PRN PRN #20 tablet 01/21/21 [Rx Last Taken Unknown] zolpidem 5 mg PO QHS PRN PRN #14 tab 01/21/21 [Rx Last Taken Unknown] Humalog KwikPen Insulin 13 units TID 03/01/21 [History Last Taken Unknown] Allergy/AdvReac Type Severity Reaction Status Date / Time Penicillins Allergy Hives Verified 03/01/21 12:56 hydrocodone bitartrate AdvReac Vomiting Verified 03/01/21 12:56 [From Vicodin] ibuprofen AdvReac Vomiting Verified 03/01/21 12:56 Family History Father Heart disease Hypertension Diabetes Hyperlipidemia Mother Diabetes Heart disease Hypertension Hyperlipidemia Brother Heart disease Age 46 Sister Diabetes Cancer Hyperlipidemia Surgical History H/O coronary artery bypass surgery (01/25/20) H/O: hysterectomy History of aortic valve replacement with bioprosthetic valve (01/25/20) History of coronary artery stent placement (03/15/17) History of coronary artery stent placement History of left heart catheterization (09/19/17) History of shoulder surgery (01/2021) Hx of cholecystectomy Social History Smoking Status: Former smoker alcohol intake: never substance use type: does not use ROS Constitutional Constitutional: Denies change in weight, chills, fatigue, fever(s) or weakness Cardiovascular Cardiovascular: Reports chest pain and syncope; Denies edema, lightheadedness or palpitations Respiratory/Chest Respiratory/Chest: Denies cough, dyspnea, productive cough, shortness of breath at rest, shortness of breath with exertion or wheezing Gastrointestinal Gastrointestinal: Reports diarrhea; Denies abdominal pain, constipation, nausea or vomiting Genitourinary Genitourinary: Denies burning urination, difficulty urinating, dysuria, hematuria, urinary frequency, urinary incontinence or urinary urgency Musculoskeletal Musculoskeletal: Denies back pain, joint pain or muscle weakness Integumentary Integumentary: Reports systems reviewed and no addt'l complaints, except as documented Neurologic Neurologic: Denies abnormal speech, confusion, dizziness, focal weakness, numb ness, paresthesias, seizure-like activity or syncope Psychiatric Psychiatric: Denies anxiety or depression Hematologic/Lymphatic Hematologic/Lymphatic: Denies anemia, easy bleeding or easy bruising Allergic/Immunologic Allergic/Immunologic: Denies hives or asthma Vital Signs Vital Signs Vital Signs: 03/01/21 12:56 03/01/21 12:58 03/01/21 12:59 Temperature 98.9 F Temperature Source Temporal Pulse Rate 76 Respiratory Rate 20 H Respiratory Effort Non-Labored Short of Breath Blood Pressure 128/67 H 106/69 Blood Pressure Mean 87 81 Pulse Ox 97 Oxygen Delivery Method Room Air 03/01/21 13:52 03/01/21 15:09 Temperature Temperature Source Pulse Rate 63 Respiratory Rate 19 H Respiratory Effort Blood Pressure 131/64 H Blood Pressure Mean 86 Pulse Ox 99 Oxygen Delivery Method Room Air Room Air Physical Exam Const alert, oriented x3 and no apparent distress Orientation / Consciousness: awake, oriented to person, oriented to place and oriented to time HEENT normocephalic and moist oral mucous membranes Eyes PERRL, EOMs intact bilaterally and conjunctivae normal Neck no lymphadenopathy Resp normal respiratory effort and clear to auscultation bilaterally Cardio regular rate, regular rhythm and no murmurs Peripheral Pulses: pulses 2+ throughout GI normal to inspection, nondistended, normoactive bowel sounds, non-tender and non -distended Extremity normal to inspection Skin no rashes or lesions noted Lesions: no lesions Rashes: no rashes Trauma: no lacerations or abrasions Neuro CN's II-XII intact bilaterally, no focal motor deficits, no sensory deficits noted and deep tendon reflexes 2+ bilaterally Psych mental status grossly normal and affect normal Lab / Micro Data Result Diagrams: 03/01/21 13:45 03/01/21 13:45 Labs: Laboratory Results - last 24 hr 03/01/21 03/01/21 13:45 13:45 WBC 9.4 RBC 3.98 L Hgb 12.7 Hct 37.6 MCV 94.5 MCH 31.9 MCHC 33.8 RDW Std Deviation 42.4 RDW Coeff of [place] 12.1 Plt Count 240 MPV 10.7 Immature Gran % (Auto) 0.500 Neut % (Auto) 66.1 Lymph % (Auto) 23.7 [place] % (Auto) 6.3 Eos % (Auto) 2.9 Baso % (Auto) 0.5 Absolute Neuts (auto) 6.2 Absolute Lymphs (auto) 2.23 Nucleated RBC % 0 Sodium 138 Potassium 4.8 Chloride 108 H Carbon Dioxide 24.0 Anion Gap 6 BUN 21 H Creatinine 1.03 H Estim Creat Clear Calc 43.84 Est GFR (MDRD) Af Amer 69 Est GFR (MDRD) Non-Af 57 L BUN/Creatinine Ratio 20.4 H Glucose 144 H Calcium 9.4 Troponin I < 0.015 Rhythm Strip Rhythm Strip: Sinus Rhythm Ectopy: None Radiology Impression Chest X-Ray 03/01/21 13:18 IMPRESSION: No acute cardiopulmonary process. Electronically Signed: Savannah Boyd MD at 15:13 EDT Tel , Service support , Assessment & Plan Assessment/Plan (1) Chest pain: PLAN: 1.? Chest pain, syncope- EKG without evidence of ischemia.?Hx of CABG 01/2020 and normal stress 07/2020. Initial troponin negative. Trend enzymes. Plan for stress test in a.m. Continue aspirin, statin, Plavix, beta- elder. 2.?Diarrhea-check stool for C. difficile, bacteriology. If negative, may begin Imodium. 3.? CAD with history of CABG (01/2020) and PCI-continue aspirin, Plavix, statin, metoprolol, nitrate. 4.? Valvular heart disease-history of aortic valve replacement 01/2020. 5. Type 2 diabetes mellitus with hyperglycemia-previous Hemoglobin A1c 12.4%.? Hold oral regimen. Accu-Cheks with sliding scale insulin. Continue home insulin regimen. Repeat hemoglobin A1c. 6.? Hypertension-stable, continue home medication regimen. 7.? GERD-continue PPI. 8. Tobacco dependence-encouraged cessation. 9. Chronic COPD-no acute exacerbation. 10. Hyperlipidemia-continue statin. 11.? History of CVA-continue aspirin, Plavix, statin. 12. Anxiety/depression/bipolar-not on regimen. DVT prophylaxis-heparin subcu This patient was seen by MAMI Barnes under the supervision of Dr. Dobbins. Documented by User: Dr. Cynthia Dobbins DO 03/01/21 18:12 HPI - General General Date of Admission: 03/01/21 HPI Narrative I agree with the above and the following is a representation of my independent history and physical examination. Ms. Curtis is a 65-year-old female who presented to the emergency department [facility] on 03/01/2021 with a chief complaint of chest pain. She reported that she was sitting in [employer] today when she had an acute onset of substernal chest pain and got up to go to the bathroom. She took a nitroglycerin and had relief in her chest pain. But did nearly pass out and have a presyncopal episode in the bathroom. She indicates that she also had 3 bouts of diarrhea while at [employer]. She reports that she went outside to get some fresh air and had a syncopal episode out there. She states she is not quite sure what was happening. The squad was called by [facility] and they brought her to the emergency department. Upon arrival she was alert and oriented x3 and had persistent chest pain. Of note she had a recent two-vessel bypass and aortic valve replacement in January 2020 and a follow-up stress test wa s done in July 2020. The stress test was negative. In the emergency department her vital signs were stable. Her CBC was unremarkable. She had some mild BUN and creatinine elevation with a BUN of 21 and a serum creatinine of 1.03. Her baseline serum creatinine appears to be about 0.8-0.9. A troponin was obtained and it was less than 0.015. Her EKG was reviewed and showed no acute ST-T wave changes. She was treated with nitroglycerin. 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 Biceps tendonitis on left Bipolar disorder Cancer Chest pain Constipation Contusion of hip, left COPD (chronic obstructive pulmonary disease) COPD (chronic obstructive pulmonary disease) CVA (cerebral vascular accident) Cystitis Diabetes Diabetes mellitus type 2, uncontrolled Dysarthria Dysphagia Essential (primary) hypertension Fe deficiency anemia Former smoker GERD (gastroesophageal reflux disease) GERD (gastroesophageal reflux disease) Hyperlipidemia Hypertension Left-sided weakness Myocardial infarct Nicotine dependence Nonrheumatic aortic (valve) insufficiency Pulmonary embolism Schizophrenia Sleep apnea TIA (transient ischemic attack) (12/2018) Type 2 diabetes mellitus Home Medications aspirin 81 mg PO DAILY 02/04/16 [History Last Taken 07/18/20] nitroglycerin 0.4 mg SUBLINGUAL Q5M PRN 09/28/17 [History Last Taken 07/18/20] furosemide 40 mg PO DAILY 11/17/18 [History Last Taken 07/18/20] metformin 1,000 mg PO BID 11/17/18 [History Last Taken 07/18/20] clopidogrel 75 mg PO DAILY 10/30/19 [History Last Taken 01/15/21] glimepiride 4 mg PO DAILY 10/30/19 [History Last Taken 07/18/20] omeprazole 40 mg capsule,delayed release 40 mg PO DAILY PRN cap 07/16/20 [History Last Taken 01/21/21 05:00] gabapentin 300 mg PO BIDCM 07/18/20 [History Last Taken 01/21/21 05:00] isosorbide mononitrate 30 mg PO DAILY 07/18/20 [History Last Taken 07/18/20] atorvastatin 40 mg PO QHS #30 tab 07/20/20 [Rx Last Taken Unknown] metoprolol tartrate 12.5 mg PO BID tab 07/20/20 [Rx Last Taken 01/21/21 05:00] insulin asp prt-insulin aspart 15 units SC BIDCM 10/05/20 [History Last Taken Unknown] ondansetron 8 mg PO Q8H PRN PRN #20 tablet 01/21/21 [Rx Last Taken Unknown] zolpidem 5 mg PO QHS PRN PRN #14 tab 01/21/21 [Rx Last Taken Unknown] Humalog KwikPen Insulin 13 units TID 03/01/21 [History Last Taken Unknown] Allergy/AdvReac Type Severity Reaction Status Date / Time Penicillins Allergy Hives Verified 03/01/21 12:56 hydrocodone bitartrate AdvReac Vomiting Verified 03/01/21 12:56 [From Vicodin] ibuprofen AdvReac Vomiting Verified 03/01/21 12:56 Family History Father Heart disease Hypertension Diabetes Hyperlipidemia Mother Diabetes Heart disease Hypertension Hyperlipidemia Brother Heart disease Age 46 Sister Diabetes Cancer Hyperlipidemia Surgical History H/O coronary artery bypass surgery (01/25/20) H/O: hysterectomy History of aortic valve replacement with bioprosthetic valve (01/25/20) History of coronary artery stent placement (03/15/17) History of coronary artery stent placement History of left heart catheterization (09/19/17) History of shoulder surgery (01/2021) Hx of cholecystectomy Social History Smoking Status: Former smoker alcohol intake: never substance use type: does not use ROS Cardiovascular Cardiovascular: Reports chest pain Physical Exam Const alert, oriented x3, no apparent distress, average body habitus, healthy appearing and well nourished General Appearance: cooperative; Negative for uncooperative Orientation / Consciousness: Negative for confused, disoriented or lethargic Eyes PERRL, EOMs intact bilaterally and conjunctivae normal Resp normal respiratory effort, no retractions, no use of accessory muscles and clear to auscultation bilaterally Resp Narrative: Diminished diffusely Auscultation: Negative for crackles, rales, rhonchi or wheezes Cardio regular rate, regular rhythm, S1 normal heart sound, S2 normal heart sound, no murmurs, no rub, no gallops, no clicks and no JVD GI normal to inspection, nondistended, normoactive bowel sounds, soft to palpation, non-tender and non-distended; Negative for hepatosplenomegaly Auscultation: Negative for hyperactive bowel sounds or hypoactive bowel sounds Palpation: Negative for tender, guarding or hernia Extremity normal to inspection, full ROM and no clubbing, cyanosis or edema Peripheral Pulses: Yes pulses 2+ throughout Skin no rashes or lesions noted, no wounds, skin turgor normal, no jaundice, no petechiae and no mottling Neuro oriented x3, CN's II-XII intact bilaterally and moves all extremities Sensorium / Orientation: awake, alert, oriented to person, oriented to place and oriented to time Motor Exam: strength 5/5 throughout Psych affect normal Lab / Micro Data Attestation: I reviewed the patient's lab results. Result Diagrams: 03/01/21 13:45 03/01/21 13:45 Addendum Addendum: Assessment Chest pain Diarrhea Mild SEA CKD status post CABG Valvular heart disease status post aortic valve replacement [id number] HTN GERD COPD HPL History of stroke Tobacco abuse Anxiety/depression/bipolar Plan -EKG shows no signs of acute ischemia -Stress test in a.m. -Cycle cardiac enzymes -Continue aspirin, statin, Plavix, beta-elder -Stool studies -Assess lipids and hemoglobin A1c -Hold oral antihyperglycemics -Sliding scale insulin
[2021-03-01] MEDS: Nitroglycerin Oint 1 INCH PACKET TD (16:29)
--- NOTE | 2021-03-01 16:57 | EKG12_ITS ---
Test Reason : Blood Pressure : / mmHG Vent. Rate : 067 BPM Atrial Rate : 067 BPM P-R Int : 152 ms QRS Dur : 078 ms QT Int : 432 ms P-R-T Axes : 054 041 057 degrees QTc Int : 456 ms Normal sinus rhythm Normal ECG Confirmed by HENRY BARFIELD, DAYANA ([id number]), publishing editor TAQUERIA CHAMBERLAIN ([id number]) on 03/04/2021 9:50:26 AM Referred By: Cynthia Dobbins Confirmed By:DAYANA FIGUEROA MD
[2021-03-01] MEDS: 0.9% Normal Saline 1,000 ML 75 ML IV (18:12)
[2021-03-01 18:49] LABS: Hemoglobin A1c < 6.0 % (3.8-5.6)
[2021-03-01] MEDS: Ondansetron 4 MG/2 ML Vial IV (18:58)
[2021-03-01 19:06] LABS: Bedside Glucose 122 mg/dL (70-110)
[2021-03-01] MEDS: Atorvastatin Calcium 40 MG Tablet PO (21:49)
[2021-03-01] MEDS: Metoprolol Tartrate 25 MG Tablet 12.5 MG PO (21:49)
[2021-03-01] MEDS: Heparin Injection (Vial) 5,000 UNIT/ML VIAL 5000 UNIT SC (21:50)
[2021-03-01 22:01] LABS: Bedside Glucose 143 mg/dL (70-110)
[2021-03-01] MEDS: Acetaminophen 325 MG Tablet 650 MG PO (22:03)
[2021-03-01] MEDS: Zolpidem Tartrate 5 MG Tablet PO (22:13)
--- NOTE | 2021-03-01 23:14 | NURSING ---
Removed Nitro patch from L arm and cleaned arm with soap and water @ 2205.
[2021-03-02] VITALS (9 sets, daily range): BP systolic 95–142; BP diastolic 48–73; PULSE 67–83; RESP 16–18; TEMP 36.8–37.2; O2SAT 98–100
[2021-03-02 05:33] LABS: Absolute Lymphocyte Count 2.71 X10^3/uL (0.83-4.51); Absolute Neutrophil Count 2.9 X10^3/uL (2.0-7.7); Basophil# 0.04 X10^3/uL; Basophil% 0.6 % (0-1); Eosinophil# 0.23 X10^3/uL; Eosinophils% 3.7 % (0-5); Hematocrit 34.4 % (37-47); Hemoglobin 11.4 g/dL (12.0-15.0); Lymphocyte # 2.71 X10^3/ul (0.83-4.51); Lymphocyte % 43.2 % (19-41); Mean Corp Hgb Conc 33.1 g/dL (32-36); Mean Corpuscular Hgb 31.5 pg (27.0-32.0); Mean Platelet Vol. 10.7 fl (6.2-12.0); Monocyte# 0.42 X10^3/uL; Monocyte% 6.7 % (0-10); NRBC Flagged by Analyzer 0 % (0-5); Neutrophil # 2.86 X10^3/uL (2.7-7.7); Neutrophil % 45.5 % (47-70); Platelet Count 208 K/mm3 (150-450); RBC Distribution Width CV 11.9 % (11.6-14.6); RBC Distribution Width SD 41.8 fl (35.1-43.9); Red Blood Count 3.62 M/mm3 (4.2-5.4); White Blood Count 6.3 K/mm3 (4.4-11.0)
[2021-03-02 05:52] LABS: Anion Gap 6 (5-15); BUN 18 mg/dL (7-18); BUN/Creat Ratio 22.6 RATIO (10-20); Calcium,Total 8.4 mg/dL (8.5-10.1); Chloride 112 mmol/L (98-107); EST Glomerular Filtration Rate 76 mL/min (>60); Est Glom Filt Rate - Afr Amer 92 mL/min (>60); Estimated Creatinine Clearance 56.45 ml/min; Glucose 121 mg/dL (74-106); Potassium 4.3 mmol/L (3.5-5.1); Sodium Level 140 mmol/L (136-145)
--- NOTE | 2021-03-02 05:55 | EKG12_ITS ---
Test Reason : AM EKG Blood Pressure : / mmHG Vent. Rate : 074 BPM Atrial Rate : 074 BPM P-R Int : 156 ms QRS Dur : 070 ms QT Int : 412 ms P-R-T Axes : 058 046 054 degrees QTc Int : 457 ms Normal sinus rhythm Normal ECG Confirmed by HENRY BARFIELD, DAYANA ([id number]), commercial production editor TAQUERIA CHAMBERLAIN ([id number]) on 03/04/2021 9:47:47 AM Referred By: Cynthia Dobbins Confirmed By:DAYANA FIGUEROA MD
[2021-03-02] MEDS: Aspirin E.C. 81 MG Tablet PO (06:39)
[2021-03-02] MEDS: Clopidogrel Bisulfate 75 MG Tablet PO (06:39)
[2021-03-02] MEDS: 0.9% Saline Lock 10 ML Syringe IV ×2 (06:39→11:38)
[2021-03-02 06:50] LABS: Bedside Glucose 141 mg/dL (70-110)
--- NOTE | 2021-03-02 10:29 | PCM.DC ---
Discharge Instructions Diet Discharge Diet: Low fat / Low cholesterol and Carb Control Diet Activity Discharge Activity: Return to Normal Activity Dressing / Incision Call your doctor if you observe: Shortness of breath, Dizziness and Chest pain Follow Up Care Test Results: Test results from this visit will be discussed in further detail at your follow-up appointment, if applicable. Discharge Plan Admission Admit Date/Time: 03/01/21 16:54 Primary Reason for Your Visit: Non-cardiac chest pain, syncope Attending Provider: Cynthia Dobbins Primary Care Provider: Charles Chavez Chi Discharge Orders/Prescriptions Prescriptions: Continued omeprazole 40 mg capsule,delayed release(DR/EC) 40 mg PO DAILY PRN (Reason: Heartburn) RF: 0 aspirin 81 MG tablet,delayed release (DR/EC) 81 mg PO DAILY RF: 0 nitroglycerin 0.4 MG tablet 0.4 mg SUBLINGUAL Q5M PRN (Reason: Chest Pain) RF: 0 furosemide 40 MG tablet 40 mg PO DAILY RF: 0 metformin 1,000 MG tablet 1,000 mg PO BID RF: 0 clopidogrel 75 MG tablet 75 mg PO DAILY RF: 0 glimepiride 4 MG tablet 4 mg PO DAILY RF: 0 gabapentin 300 MG capsule 300 mg PO BID RF: 0 isosorbide mononitrate 30 MG tablet extended release 24 hr 30 mg PO DAILY RF: 0 atorvastatin 40 MG tablet 40 mg PO QHS Qty: 30 RF: 0 metoprolol tartrate 25 MG tablet 12.5 mg PO BID RF: 0 insulin asp prt-insulin aspart 100 UNITS/ML insulin pen 15 units SC BIDCM RF: 0 zolpidem 5 MG tablet 5 mg PO QHS PRN PRN (Reason: Insomnia) Qty: 14 RF: 0 ondansetron 4 MG tablet 8 mg PO Q8H PRN PRN (Reason: Nausea) Qty: 20 RF: 0 Humalog KwikPen Insulin 13 UNITS 13 units TIDCM RF: 0 Referrals / Follow Up: Charlie Hernandez MD [STAFF PHYSICIAN] - See Referral Note (As scheduled ) Charles Chavez Chi, MD [Primary Care Provider] - In 1 Week Disposition Disposition (needs filled in before D/C Order can be placed): Home, self care
--- NOTE | 2021-03-02 10:35 | PCM.DC.SUM ---
Documented by User: Nguyen Price NP, [employer]-C 03/02/21 14:31 Providers Date of Admission: 03/01/21 Date of Discharge: 03/02/21 Primary Care Physician: Dr. Charles Chavez MD Reason For Visit: CHEST PAIN, SYNCOPE Diagnosis Discharge Diagnosis (1) Chest pain: Status: Acute Code(s): R07.9 - Chest pain, unspecified Medications at Discharge Home Medications aspirin 81 mg PO DAILY 02/04/16 nitroglycerin 0.4 mg SUBLINGUAL Q5M PRN 09/28/17 furosemide 40 mg PO DAILY 11/17/18 metformin 1,000 mg PO BID 11/17/18 clopidogrel 75 mg PO DAILY 10/30/19 glimepiride 4 mg PO DAILY 10/30/19 omeprazole 40 mg capsule,delayed release 40 mg PO DAILY PRN cap 07/16/20 gabapentin 300 mg PO BID 07/18/20 isosorbide mononitrate 30 mg PO DAILY 07/18/20 atorvastatin 40 mg PO QHS #30 tab 07/20/20 metoprolol tartrate 12.5 mg PO BID tab 07/20/20 insulin asp prt-insulin aspart 15 units SC BIDCM 10/05/20 ondansetron 8 mg PO Q8H PRN PRN #20 tablet 01/21/21 zolpidem 5 mg PO QHS PRN PRN #14 tab 01/21/21 Humalog KwikPen Insulin 13 units TIDCM 03/01/21 Hospital Course Operations None Procedures Nuclear stress test Summary of Care Provided Minutes Spent on Discharge: 35 Hospital Course: Patient is a 65-year-old female admitted 03/01/2021 due to chest pain and syncope. 1. Chest pain, syncope- EKG without evidence of ischemia. Hx of CABG 01/2020 and normal stress 07/2020. Troponin negative. Orthostatic vitals mildly positive. Received IV fluids. Patient underwent nuclear stress test which was negative for ischemia. No further chest pain during admission. Follow-up with PCP in 1 week. Patient was to follow-up with cardiology as outpatient 02/17/21, Dr. Hernandez which appears she did not attend. Recommend rescheduling this appointment 2. Diarrhea-stool for C. difficile, bacteriology ordered however no further diarrhea during admission. 3. CAD with history of CABG (01/2020) and PCI-continue aspirin, Plavix, statin, metoprolol, nitrate. 4. Valvular heart disease-history of aortic valve replacement 01/2020. 5. Type 2 diabetes mellitus with hyperglycemia-hemoglobin A1c less than 6%. Continue home oral/insulin regimen. 6. Hypertension-stable, continue home medication regimen. 7. GERD-continue PPI. 8. Tobacco dependence-encouraged cessation. 9. Chronic COPD-no acute exacerbation. 10. Hyperlipidemia-continue statin. 11. History of CVA-continue aspirin, Plavix, statin. 12. Anxiety/depression/bipolar-not on regimen. Physical Exam Const alert, oriented x3 and no apparent distress Orientation / Consciousness: awake, oriented to person, oriented to place and oriented to time HEENT normocephalic and moist oral mucous membranes Eyes PERRL, EOMs intact bilaterally and conjunctivae normal Neck no lymphadenopathy Resp normal respiratory effort and clear to auscultation bilaterally Cardio regular rate, regular rhythm and no murmurs Peripheral Pulses: pulses 2+ throughout GI normal to inspection, nondistended, normoactive bowel sounds, non-tender and non-distended Extremity normal to inspection Skin no rashes or lesions noted Lesions: no lesions Rashes: no rashes Trauma: no lacerations or abrasions Neuro CN's II-XII intact bilaterally, no focal motor deficits, no sensory deficits noted and deep tendon reflexes 2+ bilaterally Psych mental status grossly normal and affect normal Patient seen and examined prior to discharge. Physical assessment as noted above. Patient is stable for discharge with follow up recommendations as noted above. This patient was seen by MAMI Barnes under the supervision of Dr. Dobbins. ABG / Lab / Microbiology Data Result Diagrams: 03/02/21 05:22 03/02/21 05:22 Laboratory: Laboratory Results - last 24 hr 03/01/21 03/01/21 03/01/21 13:45 13:45 17:43 WBC 9.4 RBC 3.98 L Hgb 12.7 Hct 37.6 MCV 94.5 MCH 31.9 MCHC 33.8 RDW Std Deviation 42.4 RDW Coeff of [place] 12.1 Plt Count 240 MPV 10.7 Immature Gran % (Auto) 0.500 Neut % (Auto) 66.1 Lymph % (Auto) 23.7 Harper % (Auto) 6.3 Eos % (Auto) 2.9 Baso % (Auto) 0.5 Absolute Neuts (auto) 6.2 Absolute Lymphs (auto) 2.23 Nucleated RBC % 0 Sodium 138 Potassium 4.8 Chloride 108 H Carbon Dioxide 24.0 Anion Gap 6 BUN 21 H Creatinine 1.03 H Estim Creat Clear Calc 43.84 Est GFR (MDRD) Af Amer 69 Est GFR (MDRD) Non-Af 57 L BUN/Creatinine Ratio 20.4 H Glucose 144 H Hemoglobin A1c < 6.0 H Calcium 9.4 Troponin I < 0.015 POC Glucose 03/01/21 03/01/21 03/01/21 17:43 17:57 19:50 WBC RBC Hgb Hct MCV MCH MCHC RDW Std Deviation RDW Coeff of [place] Plt Count MPV Immature Gran % (Auto) Neut % (Auto) Lymph % (Auto) Harper % (Auto) Eos % (Auto) Baso % (Auto) Absolute Neuts (auto) Absolute Lymphs (auto) Nucleated RBC % Sodium Potassium Chloride Carbon Dioxide Anion Gap BUN Creatinine Estim Creat Clear Calc Est GFR (MDRD) Af Amer Est GFR (MDRD) Non-Af BUN/Creatinine Ratio Glucose Hemoglobin A1c Calcium Troponin I < 0.015 < 0.015 POC Glucose 122 H 03/01/21 03/02/21 03/02/21 21:37 05:22 05:22 WBC 6.3 RBC 3.62 L Hgb 11.4 L Hct 34.4 L MCV 95.0 MCH 31.5 MCHC 33.1 RDW Std Deviation 41.8 RDW Coeff of [place] 11.9 Plt Count 208 MPV 10.7 Immature Gran % (Auto) 0.300 Neut % (Auto) 45.5 L Lymph % (Auto) 43.2 H Harper % (Auto) 6.7 Eos % (Auto) 3.7 Baso % (Auto) 0.6 Absolute Neuts (auto) 2.9 Absolute Lymphs (auto) 2.71 Nucleated RBC % 0 Sodium 140 Potassium 4.3 Chloride 112 H Carbon Dioxide 22.0 Anion Gap 6 BUN 18 Creatinine 0.80 Estim Creat Clear Calc 56.45 Est GFR (MDRD) Af Amer 92 Est GFR (MDRD) Non-Af 76 BUN/Creatinine Ratio 22.6 H Glucose 121 H Hemoglobin A1c Calcium 8.4 L Troponin I POC Glucose 143 H 03/02/21 06:28 WBC RBC Hgb Hct MCV MCH MCHC RDW Std Deviation RDW Coeff of [place] Plt Count MPV Immature Gran % (Auto) Neut % (Auto) Lymph % (Auto) Harper % (Auto) Eos % (Auto) Baso % (Auto) Absolute Neuts (auto) Absolute Lymphs (auto) Nucleated RBC % Sodium Potassium Chloride Carbon Dioxide Anion Gap BUN Creatinine Estim Creat Clear Calc Est GFR (MDRD) Af Amer Est GFR (MDRD) Non-Af BUN/Creatinine Ratio Glucose Hemoglobin A1c Calcium Troponin I POC Glucose 141 H Radiography Diagnostic Testing: Radiology Impression Chest X-Ray 03/01/21 13:18 IMPRESSION: No acute cardiopulmonary process. Electronically Signed: Savannah Boyd MD at 15:13 EDT Tel , Service support , D/C Instructions Discharge Diet: Low fat / Low cholesterol and Carb Control Diet Discharge Activity: Return to Normal Activity Call your doctor if you observe: Shortness of breath, Dizziness and Chest pain Meaningful Use Info Meaningful Use Diagnoses (Choose all that apply): None applicable Discharge Plan Admission Admit Date/Time: 03/01/21 16:54 Primary Reason for Your Visit: Non-cardiac chest pain, syncope Attending Provider: Cynthia Dobbins Primary Care Provider: Charles Chavez Chi Discharge Orders/Prescriptions Prescriptions: Continued omeprazole 40 mg capsule,delayed release(DR/EC) 40 mg PO DAILY PRN (Reason: Heartburn) RF: 0 aspirin 81 MG tablet,delayed release (DR/EC) 81 mg PO DAILY RF: 0 nitroglycerin 0.4 MG tablet 0.4 mg SUBLINGUAL Q5M PRN (Reason: Chest Pain) RF: 0 furosemide 40 MG tablet 40 mg PO DAILY RF: 0 metformin 1,000 MG tablet 1,000 mg PO BID RF: 0 clopidogrel 75 MG tablet 75 mg PO DAILY RF: 0 glimepiride 4 MG tablet 4 mg PO DAILY RF: 0 gabapentin 300 MG capsule 300 mg PO BID RF: 0 isosorbide mononitrate 30 MG tablet extended release 24 hr 30 mg PO DAILY RF: 0 atorvastatin 40 MG tablet 40 mg PO QHS Qty: 30 RF: 0 metoprolol tartrate 25 MG tablet 12.5 mg PO BID RF: 0 insulin asp prt-insulin aspart 100 UNITS/ML insulin pen 15 units SC BIDCM RF: 0 zolpidem 5 MG tablet 5 mg PO QHS PRN PRN (Reason: Insomnia) Qty: 14 RF: 0 ondansetron 4 MG tablet 8 mg PO Q8H PRN PRN (Reason: Nausea) Qty: 20 RF: 0 Humalog KwikPen Insulin 13 UNITS 13 units TIDCM RF: 0 Referrals / Follow Up: Charlie Hernandez MD [STAFF PHYSICIAN] - See Referral Note (As scheduled ) Charles Chavez Chi, MD [Primary Care Provider] - In 1 Week Disposition Disposition (needs filled in before D/C Order can be placed): Home, self care Documented by User: Dr. Cynthia Dobbins DO 03/02/21 15:10 Providers Date of Admission: 03/01/21 Reason For Visit: CHEST PAIN, SYNCOPE Medications at Discharge Home Medications aspirin 81 mg PO DAILY 02/04/16 nitroglycerin 0.4 mg SUBLINGUAL Q5M PRN 09/28/17 furosemide 40 mg PO DAILY 11/17/18 metformin 1,000 mg PO BID 11/17/18 clopidogrel 75 mg PO DAILY 10/30/19 glimepiride 4 mg PO DAILY 10/30/19 omeprazole 40 mg capsule,delayed release 40 mg PO DAILY PRN cap 07/16/20 gabapentin 300 mg PO BID 07/18/20 isosorbide mononitrate 30 mg PO DAILY 07/18/20 atorvastatin 40 mg PO QHS #30 tab 07/20/20 metoprolol tartrate 12.5 mg PO BID tab 07/20/20 insulin asp prt-insulin aspart 15 units SC BIDCM 10/05/20 ondansetron 8 mg PO Q8H PRN PRN #20 tablet 01/21/21 zolpidem 5 mg PO QHS PRN PRN #14 tab 01/21/21 Humalog KwikPen Insulin 13 units TIDCM 03/01/21 Hospital Course Procedures Nuclear stress test Summary of Care Provided Minutes Spent on Discharge: 38 Hospital Course: I agree with the above and the following is representation my independent history and physical examination. Ms. Mary is a 65-year-old female who presented to the emergency department [facility] on 03/01/2021 with a chief complaint of chest pain.? She reported that she was sitting in [employer] on the day of admission when she had an acute onset of substernal chest pain and got up to go to the bathroom.? She took a nitroglycerin and had relief in her chest pain.? But did nearly pass out and have a presyncopal episode in the bathroom. This occurred after she took her nitroglycerin. She indicates that she also had 3 bouts of diarrhea while at [employer].? She reported that she went outside to get some fresh air and had a syncopal episode out there.? She states she is not quite sure what was happening.? The squad was called by fellow sharon's and they brought her to the emergency department.? Upon arrival she was alert and oriented x3 and had persistent chest pain.? Of note she had a recent two-vessel bypass and aortic valve replacement in January 2020 and a follow-up stress test was done in July 2020.? The stress test was negative.? In the emergency department her vital signs were stable.? Her CBC was unremarkable.? She had some mild BUN and creatinine elevation with a BUN of 21 and a serum creatinine of 1.03.? Her baseline serum creatinine appears to be about 0.8-0.9.? A troponin was obtained and it was less than 0.015.? Her EKG was reviewed and showed no acute ST-T wave changes.? She was admitted to PCU and her cardiac enzymes were cycled. They remained normal throughout her stay. She had no recurrence of chest pain. A stress test was done on the a.m. of 03/02/2021. It showed normal pharmacological myocardial perfusion stress test with a preserved ejection fraction. Her diarrhea had resolved. She had some post procedure nausea and vomiting x1. This resolved prior to discharge. 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 She is to follow-up with her primary care physician in 1 week. Discharge diagnoses Acute chest pain-resolved Diarrhea-resolved Mild SEA-resolved CAD status post CABG Valvular heart disease status post aortic valve replacement DM-2 uncontrolled HTN GERD COPD HPL History of stroke Tobacco abuse Anxiety Depression Bipolar disease Physical Exam Const alert, oriented x3 and no apparent distress General Appearance: cooperative and comfortable Orientation / Consciousness: awake, oriented to person, oriented to place and oriented to time Nutritional Appearance: overweight HEENT normocephalic and head/scalp atraumatic Eyes PERRL, EOMs intact bilaterally and conjunctivae normal Neck no lymphadenopathy, supple, no JVD and no carotid bruits Resp normal respiratory effort, no retractions, no use of accessory muscles and clear to auscultation bilaterally Resp Narrative: Diffusely diminished Auscultation: Negative for crackles, rales, rhonchi or wheezes Cardio regular rate, regular rhythm, S1 normal heart sound, S2 normal heart sound, no murmurs, no rub, no gallops, no clicks and no JVD GI normal to inspection, nondistended, normoactive bowel sounds, soft to palpation, non-tender and non-distended; Negative for hepatosplenomegaly Extremity normal to inspection, full ROM and no clubbing, cyanosis or edema Skin no rashes or lesions noted, no wounds, skin turgor normal and no jaundice Neuro oriented x3, CN's II-XII intact bilaterally, moves all extremities, no focal motor deficits and no sensory deficits noted Sensorium / Orientation: awake, alert, oriented to person, oriented to place and oriented to time Speech: speech normal Motor Exam: strength 5/5 throughout Psych Psych Narrative: Affect is mildly flat Mood & Affect: depressed; Negative for anxious ABG / Lab / Microbiology Data Result Diagrams: 03/02/21 05:22 03/02/21 05:22 Discharge Plan Admission Admit Date/Time: 03/01/21 16:54 Primary Reason for Your Visit: Non-cardiac chest pain, syncope Attending Provider: Cynthia Dobbins Primary Care Provider: Charles Chavez Chi Discharge Orders/Prescriptions Prescriptions: Continued omeprazole 40 mg capsule,delayed release(DR/EC) 40 mg PO DAILY PRN (Reason: Heartburn) RF: 0 aspirin 81 MG tablet,delayed release (DR/EC) 81 mg PO DAILY RF: 0 nitroglycerin 0.4 MG tablet 0.4 mg SUBLINGUAL Q5M PRN (Reason: Chest Pain) RF: 0 furosemide 40 MG tablet 40 mg PO DAILY RF: 0 metformin 1,000 MG tablet 1,000 mg PO BID RF: 0 clopidogrel 75 MG tablet 75 mg PO DAILY RF: 0 glimepiride 4 MG tablet 4 mg PO DAILY RF: 0 gabapentin 300 MG capsule 300 mg PO BID RF: 0 isosorbide mononitrate 30 MG tablet extended release 24 hr 30 mg PO DAILY RF: 0 atorvastatin 40 MG tablet 40 mg PO QHS Qty: 30 RF: 0 metoprolol tartrate 25 MG tablet 12.5 mg PO BID RF: 0 insulin asp prt-insulin aspart 100 UNITS/ML insulin pen 15 units SC BIDCM RF: 0 zolpidem 5 MG tablet 5 mg PO QHS PRN PRN (Reason: Insomnia) Qty: 14 RF: 0 ondansetron 4 MG tablet 8 mg PO Q8H PRN PRN (Reason: Nausea) Qty: 20 RF: 0 Humalog KwikPen Insulin 13 UNITS 13 units TIDCM RF: 0 Referrals / Follow Up: Charlie Hernandez MD [STAFF PHYSICIAN] - See Referral Note (As scheduled ) Charles Chavez Chi, MD [Primary Care Provider] - In 1 Week Disposition Disposition (needs filled in before D/C Order can be placed): Home, self care
--- NOTE | 2021-03-02 10:54 | PHA.DC.MR ---
Pharmacy Service has performed discharge medication reconciliation for this patient. The patient's discharge medication list was reviewed for discrepancies and discrepancies were resolved. Home Medications aspirin 81 mg PO DAILY 02/04/16 nitroglycerin 0.4 mg SUBLINGUAL Q5M PRN 09/28/17 furosemide 40 mg PO DAILY 11/17/18 metformin 1,000 mg PO BID 11/17/18 clopidogrel 75 mg PO DAILY 10/30/19 glimepiride 4 mg PO DAILY 10/30/19 omeprazole 40 mg capsule,delayed release 40 mg PO DAILY PRN cap 07/16/20 gabapentin 300 mg PO BID 07/18/20 isosorbide mononitrate 30 mg PO DAILY 07/18/20 atorvastatin 40 mg PO QHS #30 tab 07/20/20 metoprolol tartrate 12.5 mg PO BID tab 07/20/20 insulin asp prt-insulin aspart 15 units SC BIDCM 10/05/20 ondansetron 8 mg PO Q8H PRN PRN #20 tablet 01/21/21 zolpidem 5 mg PO QHS PRN PRN #14 tab 01/21/21 Humalog KwikPen Insulin 13 units TIDCM 03/01/21
[2021-03-02] MEDS: Ondansetron 4 MG/2 ML Vial IV (11:38)
[2021-03-02 12:31] LABS: Bedside Glucose 153 mg/dL (70-110)
--- NOTE | 2021-03-02 14:11 | STRESSREP ---
Stress Test Report Pharmacologic myocardial perfusion stress test. 65-year-old with a history of chest pain. Stress protocol: Rest EKG demonstrates sinus rhythm with a rate of 71 bpm normal intervals are noted resting blood pressure is 132/68 mmHg. 0.4 mg of regadenoson was infused per usual protocol followed by rapid intravenous saline flush injection continuous EKG monitoring was performed. At rest there were no ST or T wave changes noted to suggest abnormal flow reserve and at peak infusion nonspecific ST changes were noted with did not meet the criteria for ischemia. No clinical angina was noted. The peak blood pressure was 142/70 mmHg. Myocardial perfusion protocol. 11.4 mCi of technetium 99m sestamibi was injected at rest. 0.4 mg of regadenoson was infused per usual protocol. At peak infusion 33.1 mCi of technetium 99m sestamibi was injected stress images were obtained stress and rest images were reconstructed and compared in the short axis vertical long and horizontal long axis. Gated images were also obtained. Perfusion SPECT analysis: Review of the stress images demonstrate normal uptake of tracer noted in all areas of the myocardium. The resting images similarly demonstrate normal uptake of tracer noted in all areas of the myocardium. No areas of reversibility are noted to suggest ischemia and no previous infarct is noted. Gated SPECT analysis: The gated ejection fraction is noted to be normal. Conclusion: Normal pharmacologic myocardial perfusion stress test. Preserved ejection fraction.
[2021-03-02] MEDS: Metoprolol Tartrate 25 MG Tablet 12.5 MG PO (16:48)
[2021-03-02] MEDS: Furosemide 40 MG Tablet PO (16:49)
[2021-03-02] MEDS: Gabapentin 300 MG Capsule PO (16:49)
[2021-03-02] MEDS: Isosorbide Mononitrate 30 MG Tablet PO (16:49)
[2021-03-02 23:55] LABS: Bedside Glucose 106 mg/dL (70-110)
== END 2021-03-02 10:30 | disposition home or self-care (01) ==
LOC: ED 13:26 → PCU 17:12
PROVIDERS: Nurse Practitioner Family; Admitting Provider Internal Medicine; Emergency Provider Emergency Medicine; PCP Family Medicine Geriatric Medicine; Referring Provider Internal Medicine; Visit Provider Internal Medicine
DX: R07.89 Other chest pain (principal); I10 Essential (primary) hypertension; E11.9 Type 2 diabetes mellitus without complications; I25.10 Atherosclerotic heart disease of native coronary artery without angina pectoris; F41.9 Anxiety disorder, unspecified; F31.9 Bipolar disorder, unspecified; J44.9 Chronic obstructive pulmonary disease, unspecified; K21.9 Gastro-esophageal reflux disease without esophagitis; E78.5 Hyperlipidemia, unspecified; F17.200 Nicotine dependence, unspecified, uncomplicated; E11.65 Type 2 diabetes mellitus with hyperglycemia; Z79.899 Other long term (current) drug therapy; Z79.82 Long term (current) use of aspirin; Z79.4 Long term (current) use of insulin; Z79.02 Long term (current) use of antithrombotics/antiplatelets; Z95.2 Presence of prosthetic heart valve; Z86.73 Personal history of transient ischemic attack (TIA), and cerebral infarction without residual deficits; Z95.1 Presence of aortocoronary bypass graft; R19.7 Diarrhea, unspecified
CPT/HCPCS: 36415; 71045; 78452; 80048; 82962; 83036; 84484; 85025; 87177; 87209; 87493; 87506; 93005; 93017; 96361; 96372; 96374; 96376; 99218; 99285; A9500; J7030; A4216; G0378; J2405; J2785

== ENCOUNTER → 2021-03-06 17:06 | Outpatient (CLI) | payer MEDICARE, SELFPAY ==
[2017-03-16 08:30] VITALS: BMI 29.2
[2021-03-01 17:24] VITALS: BMI 26.4
== END ==
PROVIDERS: PCP Family Medicine Geriatric Medicine; Referring Provider Family Medicine Geriatric Medicine; Visit Provider Family Medicine Geriatric Medicine
DX: R68.83 Chills (without fever) (principal)
CPT/HCPCS: 87635; C9803; U0005; U0003

== ENCOUNTER 2021-03-10 16:05 | Emergency (ER) | payer MEDICARE, SELFPAY ==
[2017-03-16 08:30] VITALS: BMI 29.2
[2021-03-01 17:24] VITALS: BMI 26.4
[2021-03-10 16:06] VITALS: BP 157/86; PULSE 87; RESP 16; TEMP 36.6; O2SAT 99; BMI 26.1
[2021-03-10 16:08] VITALS: BP 157/86; PULSE 90; RESP 16; TEMP 36.6; O2SAT 99
--- NOTE | 2021-03-10 16:24 | EKG12_ITS ---
Test Reason : SOB Blood Pressure : / mmHG Vent. Rate : 079 BPM Atrial Rate : 079 BPM P-R Int : 158 ms QRS Dur : 074 ms QT Int : 410 ms P-R-T Axes : 052 031 071 degrees QTc Int : 470 ms Normal sinus rhythm Normal ECG Confirmed by HENRY BARFIELD, DAYANA ([id number]), restaurant expeditor TAQUERIA CHAMBERLAIN ([id number]) on 03/12/2021 12:28:03 PM Referred By: AIDEN Confirmed By:DAYANA FIGUEROA MD
--- NOTE | 2021-03-10 16:26 | EX.ED.DYSGE1 ---
HPI History of Present Illness Chief Complaint: Shortness of Breath Informant: patient Onset/Context/Timing Onset: Yesterday Current Severity: Mild Maximum Severity: Moderate Narrative Narrative: Exposed to someone with Covid. Patient presents with shortness of breath and chest tightness with known positive Covid status. She went and got tested on March 06 while she was still asymptomatic. She received word today that she is positive. Patient states yesterday she developed some chest heaviness and shortness of breath it tends to wax and wane. She denies measuring a fever at home, but does states she gets hot and cold. [facility] Medical History (Updated 03/10/21 @ 18:[address] Sujata Cabrales MD) Anxiety and depression Atherosclerotic heart disease of [id number] coronary artery without angina pectoris Biceps tendonitis on left Bipolar disorder Cancer Constipation COPD (chronic obstructive pulmonary disease) CVA (cerebral vascular accident) Diabetes Dysarthria Dysphagia Essential (primary) hypertension Fe deficiency anemia Former smoker GERD (gastroesophageal reflux disease) Hyperlipidemia Hypertension Left-sided weakness Myocardial infarct Nicotine dependence Nonrheumatic aortic (valve) insufficiency Pulmonary embolism Schizophrenia Sleep apnea TIA (transient ischemic attack) (12/2018) Type 2 diabetes mellitus Home Medications aspirin 81 mg PO DAILY 02/04/16 [History Last Taken 03/01/21] nitroglycerin 0.4 mg SUBLINGUAL Q5M PRN 09/28/17 [History Last Taken 03/01/21] furosemide 40 mg PO DAILY 11/17/18 [History Last Taken 03/01/21] metformin 1,000 mg PO BID 11/17/18 [History Last Taken 03/01/21] clopidogrel 75 mg PO DAILY 10/30/19 [History Last Taken 03/01/21] glimepiride 4 mg PO DAILY 10/30/19 [History Last Taken 03/01/21] omeprazole 40 mg capsule,delayed release 40 mg PO DAILY PRN cap 07/16/20 [History Last Taken 03/01/21] gabapentin 300 mg PO BID 07/18/20 [History Last Taken 03/01/21] isosorbide mononitrate 30 mg PO DAILY 07/18/20 [History Last Taken 03/01/21] atorvastatin 40 mg PO QHS #30 tab 07/20/20 [Rx Last Taken 02/28/21] metoprolol tartrate 12.5 mg PO BID tab 07/20/20 [Rx Last Taken 03/01/21] insulin asp prt-insulin aspart 15 units SC BIDCM 10/05/20 [History Last Taken 03/01/21] ondansetron 8 mg PO Q8H PRN PRN #20 tablet 01/21/21 [Rx Last Taken 02/28/21] zolpidem 5 mg PO QHS PRN PRN #14 tab 01/21/21 [Rx Last Taken 02/28/21] Humalog KwikPen Insulin 13 units TIDCM 03/01/21 [History Last Taken 03/01/21] Allergy/AdvReac Type Severity Reaction Status Date / Time Penicillins Allergy Hives Verified 03/01/21 12:56 hydrocodone bitartrate AdvReac Vomiting Verified 03/01/21 12:56 [From Vicodin] ibuprofen AdvReac Vomiting Verified 03/01/21 12:56 Family History Father Heart disease Hypertension Diabetes Hyperlipidemia Mother Diabetes Heart disease Hypertension Hyperlipidemia Brother Heart disease Age 46 Sister Diabetes Cancer Hyperlipidemia Surgical History H/O coronary artery bypass surgery (01/25/20) H/O: hysterectomy History of aortic valve replacement with bioprosthetic valve (01/25/20) History of coronary artery stent placement (03/15/17) History of coronary artery stent placement History of left heart catheterization (09/19/17) History of shoulder surgery (01/2021) Hx of cholecystectomy Social History Smoking Status: Former smoker alcohol intake: never substance use type: does not use ROS ROS ED Constitutional Constitutional ED: Reports chills, fever(s) and subjective Eyes Eyes: Denies change in vision ENT ENT ED: Denies sore throat Cardiovascular Cardiovascular: Reports chest pain Respiratory/Chest Respiratory/Chest: Reports cough and dyspnea Gastrointestinal Gastrointestinal: Denies abdominal pain, diarrhea, nausea or vomiting Genitourinary Genitourinary ED: Denies dysuria Musculoskeletal Musculoskeletal: Denies back pain Integumentary Denies rash Neurologic Neurologic: Denies headache(s) or weakness Psychiatric Psychiatric: Denies anxiety or depression Endocrine Endocrinology: Denies polydipsia or polyuria Allergic/Immunologic Allergic/Immunologic ED: Denies urticaria EXAM Physical Exam Const Vital Signs: 03/10/21 16:06 03/10/21 16:08 03/10/21 16:50 Temperature 97.8 F 97.8 F Temperature Source Temporal Temporal Pulse Rate 87 90 Respiratory Rate 16 16 Respiratory Effort Normal Respiratory Depth Normal Respiratory Pattern Normal Blood Pressure 157/86 H 157/86 H Blood Pressure Mean 109 109 Pulse Ox 99 99 Oxygen Delivery Method Room Air Room Air Room Air Positive well nourished and well developed General Appearance ED: well developed HEENT Reports normocephalic and head/scalp atraumatic Eyes PERRL and EOMs intact bilaterally Neck supple Chest Wall inspection of chest normal and palpation of chest normal Resp normal respiratory effort and clear to auscultation bilaterally Cardio regular rate and regular rhythm GI normal to inspection, nondistended, normoactive bowel sounds Palpation: soft Extremity normal to inspection Neuro oriented x3 and no sensory deficits noted Sensorium / Orientation: alert Motor Exam: strength 5/5 throughout Psych mental status grossly normal Skin no rashes or lesions noted MDM MDM MDM Narrative Medical decision making narrative: EKG, chest x-ray, labs are obtained. Lab Data Attestation: I reviewed the patient's lab results. Labs: Laboratory Results - last 24 hr 03/10/21 03/10/21 03/10/21 17:10 17:10 17:10 WBC 4.5 RBC 3.73 L Hgb 11.8 L Hct 34.6 L MCV 92.8 MCH 31.6 MCHC 34.1 RDW Std Deviation 40.9 RDW Coeff of [place] 12.0 Plt Count 205 MPV 10.6 Immature Gran % (Auto) 0.400 Neut % (Auto) 47.1 Lymph % (Auto) 40.4 [place] % (Auto) 9.7 Eos % (Auto) 2.0 Baso % (Auto) 0.4 Absolute Neuts (auto) 2.1 Absolute Lymphs (auto) 1.83 Nucleated RBC % 0 D-Dimer Quant (PE/DVT) 0.42 Sodium 138 Potassium 4.4 Chloride 107 Carbon Dioxide 26.0 Anion Gap 5 BUN 10 Creatinine 0.90 Estim Creat Clear Calc 50.18 Est GFR (MDRD) Af Amer 80 Est GFR (MDRD) Non-Af 66 BUN/Creatinine Ratio 11.1 Glucose 182 H Lactic Acid Calcium 8.7 Total Bilirubin 0.40 AST 34 ALT 22 Alkaline Phosphatase 56 Troponin I < 0.015 Total Protein 7.1 Albumin 3.6 Globulin 3.5 Albumin/Globulin Ratio 1.0 03/10/21 17:10 WBC RBC Hgb Hct MCV MCH MCHC RDW Std Deviation RDW Coeff of [place] Plt Count MPV Immature Gran % (Auto) Neut % (Auto) Lymph % (Auto) [place] % (Auto) Eos % (Auto) Baso % (Auto) Absolute Neuts (auto) Absolute Lymphs (auto) Nucleated RBC % D-Dimer Quant (PE/DVT) Sodium Potassium Chloride Carbon Dioxide Anion Gap BUN Creatinine Estim Creat Clear Calc Est GFR (MDRD) Af Amer Est GFR (MDRD) Non-Af BUN/Creatinine Ratio Glucose Lactic Acid 1.5 Calcium Total Bilirubin AST ALT Alkaline Phosphatase Troponin I Total Protein Albumin Globulin Albumin/Globulin Ratio Radiography Chest X-Ray - ED: 1 View, Read by ED Physician, Normal, Heart, Lungs and Mediastinum Diagnostic Testing: Radiology Impression Chest X-Ray 03/10/21 17:13 IMPRESSION: No acute pulmonary process Electronically Signed: Trenton Sanchez MD at 17:28 EDT , Service support , EKG Initial EKG: Attestation: I personally reviewed and interpreted this EKG as follows: Interpretation: Sinus Rhythm (Sinus at 79 with no acute ischemia.) Treatment and Re-Evaluation Comments:: On repeat evaluation patient is resting comfortably. O2 sat is 98% on room air. She will continue supportive care at home. She was encouraged to return for worsening symptoms. Discharge Plan Triage Chief Complaint: Shortness of Breath ED Provider: Sujata Cabrales Dx/Rx/DC Orders Clinical Impression: COVID-19 Instructions: Coronavirus Disease 2019 (COVID-19): Caring for Yourself or Others Prescriptions: No Action omeprazole 40 mg capsule,delayed release(DR/EC) 40 mg PO DAILY PRN (Reason: Heartburn) RF: 0 aspirin 81 MG tablet,delayed release (DR/EC) 81 mg PO DAILY RF: 0 nitroglycerin 0.4 MG tablet 0.4 mg SUBLINGUAL Q5M PRN (Reason: Chest Pain) RF: 0 furosemide 40 MG tablet 40 mg PO DAILY RF: 0 metformin 1,000 MG tablet 1,000 mg PO BID RF: 0 clopidogrel 75 MG tablet 75 mg PO DAILY RF: 0 glimepiride 4 MG tablet 4 mg PO DAILY RF: 0 gabapentin 300 MG capsule 300 mg PO BID RF: 0 isosorbide mononitrate 30 MG tablet extended release 24 hr 30 mg PO DAILY RF: 0 atorvastatin 40 MG tablet 40 mg PO QHS Qty: 30 RF: 0 metoprolol tartrate 25 MG tablet 12.5 mg PO BID RF: 0 insulin asp prt-insulin aspart 100 UNITS/ML insulin pen 15 units SC BIDCM RF: 0 zolpidem 5 MG tablet 5 mg PO QHS PRN PRN (Reason: Insomnia) Qty: 14 RF: 0 ondansetron 4 MG tablet 8 mg PO Q8H PRN PRN (Reason: Nausea) Qty: 20 RF: 0 Humalog KwikPen Insulin 13 UNITS 13 units TIDCM RF: 0 Primary Care Provider: Charles Chavez Chi Referrals: Charles Chavez Chi, MD [Primary Care Provider] - 10-14 Days if not better Disposition Disposition: Home, self care
[2021-03-10 16:50] VITALS: O2SAT 97
--- NOTE | 2021-03-10 17:13 | RAD_ITS ---
STUDY: X-RAY CHEST REASON FOR EXAM: Female, 65 years old. Cough and fever TECHNIQUE: Single AP portable view of the chest. COMPARISON: 03/01/2021 FINDINGS: EKG leads overlie the chest The lungs are clear and expanded. There is no demonstrated pleural abnormality. Sternal cerclage wires and vascular clips are present from a prior sternotomy and coronary artery bypass graft procedure (CABG). Normal mediastinum and jovan. Normal visualized pulmonary arteries. Normal visualized aortic arch and descending thoracic aorta. Normal visualized thoracic spine. Normal visualized ribs, clavicles, and shoulders. There is no demonstrated abnormality of the visualized soft tissue structures of the upper abdomen. RAD/Chest 1 View (Portable) IMPRESSION: No acute pulmonary process Electronically Signed: Trenton Sanchez MD at 17:28 EDT , Service support ,
[2021-03-10 17:37] LABS: Absolute Lymphocyte Count 1.83 X10^3/uL (0.83-4.51); Absolute Neutrophil Count 2.1 X10^3/uL (2.0-7.7); Basophil# 0.02 X10^3/uL; Basophil% 0.4 % (0-1); Eosinophil# 0.09 X10^3/uL; Hematocrit 34.6 % (37-47); Hemoglobin 11.8 g/dL (12.0-15.0); Lymphocyte # 1.83 X10^3/ul (0.83-4.51); Lymphocyte % 40.4 % (19-41); Mean Corp Hgb Conc 34.1 g/dL (32-36); Mean Corpuscular Hgb 31.6 pg (27.0-32.0); Mean Corpuscular Volume 92.8 fL (81-99); Mean Platelet Vol. 10.6 fl (6.2-12.0); Monocyte# 0.44 X10^3/uL; Monocyte% 9.7 % (0-10); NRBC Flagged by Analyzer 0 % (0-5); Neutrophil # 2.13 X10^3/uL (2.7-7.7); Neutrophil % 47.1 % (47-70); Platelet Count 205 K/mm3 (150-450); RBC Distribution Width SD 40.9 fl (35.1-43.9); Red Blood Count 3.73 M/mm3 (4.2-5.4); White Blood Count 4.5 K/mm3 (4.4-11.0)
[2021-03-10 17:41] LABS: D-Dimer Quantitative (DVT/PE) 0.42 FEU/ug/m (0.27-0.49)
[2021-03-10 17:48] LABS: AST(SGOT) 34 U/L (15-37); Alanine Aminotransfer ALT/SGPT 22 U/L (13-56); Albumin, Serum 3.6 g/dL (3.2-5.0); Alkaline Phosphatase 56 U/L (45-117); Anion Gap 5 (5-15); BUN 10 mg/dL (7-18); BUN/Creat Ratio 11.1 RATIO (10-20); Calcium,Total 8.7 mg/dL (8.5-10.1); Chloride 107 mmol/L (98-107); EST Glomerular Filtration Rate 66 mL/min (>60); Est Glom Filt Rate - Afr Amer 80 mL/min (>60); Estimated Creatinine Clearance 50.18 ml/min; Globulin 3.5 g/dL (2.2-4.2); Glucose 182 mg/dL (74-106); Potassium 4.4 mmol/L (3.5-5.1); Protein, Total 7.1 g/dL (6.4-8.2); Sodium Level 138 mmol/L (136-145)
[2021-03-10 17:58] LABS: Lactic Acid 1.5 mmol/L (0.4-1.9)
[2021-03-10 18:22] VITALS: BP 124/69; PULSE 74; RESP 16; O2SAT 98
== END 2021-03-10 18:23 | disposition home or self-care (01) ==
PROVIDERS: Emergency Provider Emergency Medicine; PCP Family Medicine Geriatric Medicine
DX: U07.1 COVID-19 (principal); F41.9 Anxiety disorder, unspecified; I25.10 Atherosclerotic heart disease of native coronary artery without angina pectoris; F31.9 Bipolar disorder, unspecified; J44.9 Chronic obstructive pulmonary disease, unspecified; E11.9 Type 2 diabetes mellitus without complications; I10 Essential (primary) hypertension; D50.9 Iron deficiency anemia, unspecified; K21.9 Gastro-esophageal reflux disease without esophagitis; E78.5 Hyperlipidemia, unspecified; I25.2 Old myocardial infarction; I35.1 Nonrheumatic aortic (valve) insufficiency; F20.9 Schizophrenia, unspecified; G47.30 Sleep apnea, unspecified; Z86.73 Personal history of transient ischemic attack (TIA), and cerebral infarction without residual deficits; Z86.711 Personal history of pulmonary embolism; Z95.2 Presence of prosthetic heart valve; Z95.1 Presence of aortocoronary bypass graft; Z79.4 Long term (current) use of insulin; Z79.02 Long term (current) use of antithrombotics/antiplatelets; Z79.82 Long term (current) use of aspirin; Z79.899 Other long term (current) drug therapy; Z87.891 Personal history of nicotine dependence
CPT/HCPCS: 71045; 80053; 83605; 84484; 85025; 85379; 87040; 93005; 99285

== ENCOUNTER 2021-03-11 17:07 | Emergency (ER) | payer MEDICARE, SELFPAY ==
[2017-03-16 08:30] VITALS: BMI 29.2
[2021-03-10 16:06] VITALS: BMI 26.1
[2021-03-11 17:09] VITALS: BP 187/78; PULSE 81; RESP 15; TEMP 37; O2SAT 98; BMI 26.4
[2021-03-11 17:12] VITALS: BP 187/78; PULSE 117; RESP 17; O2SAT 100
--- NOTE | 2021-03-11 17:23 | EKG12_ITS ---
Test Reason : NAUSEA Blood Pressure : / mmHG Vent. Rate : 078 BPM Atrial Rate : 078 BPM P-R Int : 140 ms QRS Dur : 080 ms QT Int : 420 ms P-R-T Axes : 041 030 062 degrees QTc Int : 478 ms Normal sinus rhythm Normal ECG Confirmed by TJ BARFIELD, GLORY ([id number]), medical transcription editor TAQUERIA CHAMBERLAIN ([id number]) on 03/12/2021 12:56:01 PM Referred By: Confirmed By:AL SPENCER MD
--- NOTE | 2021-03-11 17:28 | EDS_ITS ---
HPI History of Present Illness Chief Complaint: Nausea/Vomiting Informant: patient Onset/Context/Timing Onset: Today Current Severity: Moderate Maximum Severity: Moderate Narrative Narrative: Patient present secondary to nausea and vomiting. Patient was diagnosed with Covid. She was tested on the and got her results back on the . She was seen yesterday for some chest heaviness. Work-up was unremarkable. She states this morning she developed nausea and vomiting has not been able to keep anything down today. [facility] Medical History Anxiety and depression Atherosclerotic heart disease of [place] coronary artery without angina pectoris Biceps tendonitis on left Bipolar disorder Cancer Constipation COPD (chronic obstructive pulmonary disease) CVA (cerebral vascular accident) Diabetes Dysarthria Dysphagia Essential (primary) hypertension Fe deficiency anemia Former smoker GERD (gastroesophageal reflux disease) Hyperlipidemia Hypertension Left-sided weakness Myocardial infarct Nicotine dependence Nonrheumatic aortic (valve) insufficiency Pulmonary embolism Schizophrenia Sleep apnea TIA (transient ischemic attack) (12/2018) Type 2 diabetes mellitus Home Medications aspirin 81 mg PO DAILY 02/04/16 [History Last Taken 03/01/21] nitroglycerin 0.4 mg SUBLINGUAL Q5M PRN 09/28/17 [History Last Taken 03/01/21] furosemide 40 mg PO DAILY 11/17/18 [History Last Taken 03/01/21] metformin 1,000 mg PO BID 11/17/18 [History Last Taken 03/01/21] clopidogrel 75 mg PO DAILY 10/30/19 [History Last Taken 03/01/21] glimepiride 4 mg PO DAILY 10/30/19 [History Last Taken 03/01/21] omeprazole 40 mg capsule,delayed release 40 mg PO DAILY PRN cap 07/16/20 [History Last Taken 03/01/21] gabapentin 300 mg PO BID 07/18/20 [History Last Taken 03/01/21] isosorbide mononitrate 30 mg PO DAILY 07/18/20 [History Last Taken 03/01/21] atorvastatin 40 mg PO QHS #30 tab 07/20/20 [Rx Last Taken 02/28/21] metoprolol tartrate 12.5 mg PO BID tab 07/20/20 [Rx Last Taken 03/01/21] insulin asp prt-insulin aspart 15 units SC BIDCM 10/05/20 [History Last Taken 03/01/21] ondansetron 8 mg PO Q8H PRN PRN #20 tablet 01/21/21 [Rx Last Taken 02/28/21] zolpidem 5 mg PO QHS PRN PRN #14 tab 01/21/21 [Rx Last Taken 02/28/21] Humalog KwikPen Insulin 13 units TIDCM 03/01/21 [History Last Taken 03/01/21] ondansetron 4 mg PO Q8H PRN #10 tab 03/11/21 [Rx Last Taken Unknown] Allergy/AdvReac Type Severity Reaction Status Date / Time Penicillins Allergy Hives Verified 03/11/21 17:09 hydrocodone bitartrate AdvReac Vomiting Verified 03/11/21 17:09 [From Vicodin] ibuprofen AdvReac Vomiting Verified 03/11/21 17:09 Family History Father Heart disease Hypertension Diabetes Hyperlipidemia Mother Diabetes Heart disease Hypertension Hyperlipidemia Brother Heart disease Age 46 Sister Diabetes Cancer Hyperlipidemia Surgical History H/O coronary artery bypass surgery (01/25/20) H/O: hysterectomy History of aortic valve replacement with bioprosthetic valve (01/25/20) History of coronary artery stent placement (03/15/17) History of coronary artery stent placement History of left heart catheterization (09/19/17) History of shoulder surgery (01/2021) Hx of cholecystectomy Social History Smoking Status: Former smoker alcohol intake: never substance use type: does not use ROS ROS ED Constitutional Constitutional ED: Denies chills or fever(s) Eyes Eyes: Denies change in vision ENT ENT ED: Denies sore throat Cardiovascular Cardiovascular: Reports chest pain Respiratory/Chest Respiratory/Chest: Reports dyspnea; Denies cough Gastrointestinal Gastrointestinal: Reports abdominal pain, diarrhea, nausea and vomiting Genitourinary Genitourinary ED: Denies dysuria Musculoskeletal Musculoskeletal: Reports myalgias; Denies back pain Integumentary Denies rash Neurologic Neurologic: Denies headache(s) or weakness Psychiatric Psychiatric: Denies anxiety or depression Endocrine Endocrinology: Denies polydipsia or polyuria Allergic/Immunologic Allergic/Immunologic ED: Denies urticaria EXAM Physical Exam Const Vital Signs: 03/11/21 17:09 03/11/21 17:12 03/11/21 19:33 Temperature 98.6 F Temperature Source Temporal Pulse Rate 81 117 H 67 Respiratory Rate 15 17 13 Blood Pressure 187/78 H 187/78 H 166/67 H Blood Pressure Mean 114 114 100 Pulse Ox 98 100 100 Oxygen Delivery Method Room Air Room Air Room Air Positive well nourished and well developed General Appearance ED: well developed HEENT Reports normocephalic and head/scalp atraumatic Eyes PERRL and EOMs intact bilaterally Neck supple Chest Wall inspection of chest normal and palpation of chest normal Resp normal respiratory effort and clear to auscultation bilaterally Cardio regular rate and regular rhythm GI non-tender Auscultation: hypoactive bowel sounds Palpation: soft Extremity normal to inspection Neuro oriented x3 and no sensory deficits noted Sensorium / Orientation: alert Motor Exam: strength 5/5 throughout Psych mental status grossly normal Skin no rashes or lesions noted MDM MDM MDM Narrative Medical decision making narrative: Patient is placed on paper products printer. EKG, labs are obtained. Patient is given Zofran. Lab Data Attestation: I reviewed the patient's lab results. Labs: Laboratory Results - last 24 hr 03/11/21 03/11/21 03/11/21 17:24 17:24 17:24 WBC 4.7 RBC 3.81 L Hgb 12.1 Hct 34.8 L MCV 91.3 MCH 31.8 MCHC 34.8 RDW Std Deviation 39.9 RDW Coeff of [place] 11.9 Plt Count 212 MPV 10.4 Immature Gran % (Auto) 0.600 Neut % (Auto) 56.9 Lymph % (Auto) 32.6 [place] % (Auto) 7.8 Eos % (Auto) 1.7 Baso % (Auto) 0.4 Absolute Neuts (auto) 2.7 Absolute Lymphs (auto) 1.54 Nucleated RBC % 0 Sodium 136 Potassium 4.3 Chloride 106 Carbon Dioxide 22.0 Anion Gap 8 BUN 5 L Creatinine 0.80 Estim Creat Clear Calc 56.45 Est GFR (MDRD) Af Amer 91 Est GFR (MDRD) Non-Af 76 BUN/Creatinine Ratio 6.2 L Glucose 192 H Lactic Acid 1.4 Calcium 8.8 Total Bilirubin 0.50 Direct Bilirubin < 0.05 AST 28 ALT 24 Alkaline Phosphatase 66 Troponin I < 0.015 Total Protein 7.1 Albumin 3.9 Globulin 3.2 Lipase 129 POC Glucose 03/11/21 17:28 WBC RBC Hgb Hct MCV MCH MCHC RDW Std Deviation RDW Coeff of [place] Plt Count MPV Immature Gran % (Auto) Neut % (Auto) Lymph % (Auto) [place] % (Auto) Eos % (Auto) Baso % (Auto) Absolute Neuts (auto) Absolute Lymphs (auto) Nucleated RBC % Sodium Potassium Chloride Carbon Dioxide Anion Gap BUN Creatinine Estim Creat Clear Calc Est GFR (MDRD) Af Amer Est GFR (MDRD) Non-Af BUN/Creatinine Ratio Glucose Lactic Acid Calcium Total Bilirubin Direct Bilirubin AST ALT Alkaline Phosphatase Troponin I Total Protein Albumin Globulin Lipase POC Glucose 185 H EKG Initial EKG: Attestation: I personally reviewed and interpreted this EKG as follows: Interpretation: Sinus Rhythm (Sinus at 78 with no acute ischemia.) Treatment and Re-Evaluation Comments:: On repeat evaluation patient does feel improved. She will be given a prescription for Zofran. Return instructions are provided. Discharge Plan Triage Chief Complaint: Nausea/Vomiting ED Provider: Sujata Cabrales Dx/Rx/DC Orders Clinical Impression: Vomiting, COVID-19 Instructions: Coronavirus Disease 2019 (COVID-19): Caring for Yourself or Others, ED Vomiting (Adult) Prescriptions: New ondansetron 4 mg tablet,disintegrating 4 mg PO Q8H PRN (Reason: nausea and vomiting) Qty: 10 RF: 0 No Action omeprazole 40 mg capsule,delayed release(DR/EC) 40 mg PO DAILY PRN (Reason: Heartburn) RF: 0 aspirin 81 MG tablet,delayed release (DR/EC) 81 mg PO DAILY RF: 0 nitroglycerin 0.4 MG tablet 0.4 mg SUBLINGUAL Q5M PRN (Reason: Chest Pain) RF: 0 furosemide 40 MG tablet 40 mg PO DAILY RF: 0 metformin 1,000 MG tablet 1,000 mg PO BID RF: 0 clopidogrel 75 MG tablet 75 mg PO DAILY RF: 0 glimepiride 4 MG tablet 4 mg PO DAILY RF: 0 gabapentin 300 MG capsule 300 mg PO BID RF: 0 isosorbide mononitrate 30 MG tablet extended release 24 hr 30 mg PO DAILY RF: 0 atorvastatin 40 MG tablet 40 mg PO QHS Qty: 30 RF: 0 metoprolol tartrate 25 MG tablet 12.5 mg PO BID RF: 0 insulin asp prt-insulin aspart 100 UNITS/ML insulin pen 15 units SC BIDCM RF: 0 zolpidem 5 MG tablet 5 mg PO QHS PRN PRN (Reason: Insomnia) Qty: 14 RF: 0 ondansetron 4 MG tablet 8 mg PO Q8H PRN PRN (Reason: Nausea) Qty: 20 RF: 0 Humalog KwikPen Insulin 13 UNITS 13 units TIDCM RF: 0 Primary Care Provider: Charles Chavez Chi Referrals: Charles Chavez Chi, MD [Primary Care Provider] - 1-2 Weeks Disposition Disposition: Home, self care
[2021-03-11 17:30] LABS: Bedside Glucose 185 mg/dL (70-110)
[2021-03-11] MEDS: Ondansetron 4 MG/2 ML Vial IV (17:37)
[2021-03-11 17:39] LABS: Absolute Lymphocyte Count 1.54 X10^3/uL (0.83-4.51); Absolute Neutrophil Count 2.7 X10^3/uL (2.0-7.7); Basophil# 0.02 X10^3/uL; Basophil% 0.4 % (0-1); Eosinophil# 0.08 X10^3/uL; Eosinophils% 1.7 % (0-5); Hematocrit 34.8 % (37-47); Hemoglobin 12.1 g/dL (12.0-15.0); Lymphocyte # 1.54 X10^3/ul (0.83-4.51); Lymphocyte % 32.6 % (19-41); Mean Corp Hgb Conc 34.8 g/dL (32-36); Mean Corpuscular Hgb 31.8 pg (27.0-32.0); Mean Corpuscular Volume 91.3 fL (81-99); Mean Platelet Vol. 10.4 fl (6.2-12.0); Monocyte# 0.37 X10^3/uL; Monocyte% 7.8 % (0-10); NRBC Flagged by Analyzer 0 % (0-5); Neutrophil # 2.68 X10^3/uL (2.7-7.7); Neutrophil % 56.9 % (47-70); Platelet Count 212 K/mm3 (150-450); RBC Distribution Width CV 11.9 % (11.6-14.6); RBC Distribution Width SD 39.9 fl (35.1-43.9); Red Blood Count 3.81 M/mm3 (4.2-5.4); White Blood Count 4.7 K/mm3 (4.4-11.0)
[2021-03-11 18:19] LABS: Lactic Acid 1.4 mmol/L (0.4-1.9)
[2021-03-11 18:44] LABS: AST(SGOT) 28 U/L (15-37); Alanine Aminotransfer ALT/SGPT 24 U/L (13-56); Albumin, Serum 3.9 g/dL (3.2-5.0); Alkaline Phosphatase 66 U/L (45-117); Anion Gap 8 (5-15); BUN 5 mg/dL (7-18); BUN/Creat Ratio 6.2 RATIO (10-20); Bilirubin, Direct < 0.05 mg/dL (0.00-0.30); Calcium,Total 8.8 mg/dL (8.5-10.1); Chloride 106 mmol/L (98-107); EST Glomerular Filtration Rate 76 mL/min (>60); Est Glom Filt Rate - Afr Amer 91 mL/min (>60); Estimated Creatinine Clearance 56.45 ml/min; Globulin 3.2 g/dL (2.2-4.2); Glucose 192 mg/dL (74-106); Lipase 129 U/L (73-393); Potassium 4.3 mmol/L (3.5-5.1); Protein, Total 7.1 g/dL (6.4-8.2); Sodium Level 136 mmol/L (136-145)
[2021-03-11 19:33] VITALS: BP 166/67; PULSE 67; RESP 13; O2SAT 100
== END 2021-03-11 20:01 | disposition home or self-care (01) ==
PROVIDERS: Emergency Provider Emergency Medicine; PCP Family Medicine Geriatric Medicine
DX: U07.1 COVID-19 (principal); R11.2 Nausea with vomiting, unspecified; F41.9 Anxiety disorder, unspecified; I25.10 Atherosclerotic heart disease of native coronary artery without angina pectoris; F31.9 Bipolar disorder, unspecified; J44.9 Chronic obstructive pulmonary disease, unspecified; E11.9 Type 2 diabetes mellitus without complications; I10 Essential (primary) hypertension; D50.9 Iron deficiency anemia, unspecified; K21.9 Gastro-esophageal reflux disease without esophagitis; E78.5 Hyperlipidemia, unspecified; I25.2 Old myocardial infarction; F20.9 Schizophrenia, unspecified; G47.30 Sleep apnea, unspecified; I35.1 Nonrheumatic aortic (valve) insufficiency; Z86.73 Personal history of transient ischemic attack (TIA), and cerebral infarction without residual deficits; Z86.711 Personal history of pulmonary embolism; Z95.1 Presence of aortocoronary bypass graft; Z95.2 Presence of prosthetic heart valve; Z79.82 Long term (current) use of aspirin; Z79.4 Long term (current) use of insulin; Z79.899 Other long term (current) drug therapy; Z87.891 Personal history of nicotine dependence
CPT/HCPCS: 80048; 80076; 82962; 83605; 83690; 84484; 85025; 93005; 96374; 99285; A4216; J2405

== ENCOUNTER → 2021-04-06 10:57 | Outpatient (CLI) | payer MEDICARE, SELFPAY ==
[2017-03-16 08:30] VITALS: BMI 29.2
[2021-03-11 17:09] VITALS: BMI 26.4
--- NOTE | 2021-04-06 11:01 | VDLE_ITS ---
Reason For Study: LLE edema Procedure LEFT This is a venous duplex using B-mode, color CFV is compressible, spontaneous, phasic, flow and spectral Doppler. competent, and demonstrates normal Exam performed in department. augmentation. A preliminary report was called and/or faxed FV is compressible, spontaneous, phasic, to Scott. competent and demonstrates normal augmentation. POP V is compressible, spontaneous, phasic, competent and demonstrates normal augmentation. T/P Trunk is compressible. PTV is compressible. LT PerV is compressible. Left GSV harvested. Nonvascularized structure noted in the left popliteal space measuring approximently 3.25 x 1.08 x 4.20 cm. VL/Venous Duplex US, Unilateral Interpretation Summary Deep veins of the left lower extremity are patent and compressible segmentally. There is no evidence of left lower extremity deep vein thrombosis. Valvular competence appears intac t within the proximal deep venous system on the left . The left great saphenous vein is absent, havin g been previously harvested. A non-vascular, hypoechoic structure is noted in the left popliteal space, measuring 3.25 cm x 1.08 cm x 4.20 cm. This probably represents a popliteal cyst. Clinical cor relation is advised. Ordering Physician: Charles Chavez Referring Physician: Charles Chavez Chi Performed By: Dang Ybarra RVT
== END ==
LOC: CVS 10:59
PROVIDERS: PCP Family Medicine Geriatric Medicine; Referring Provider Family Medicine Geriatric Medicine; Visit Provider Family Medicine Geriatric Medicine
DX: R60.0 Localized edema (principal)
CPT/HCPCS: 93971

== ENCOUNTER 2021-04-13 17:26 | Emergency (ER) | payer MEDICARE, SELFPAY ==
[2017-03-16 08:30] VITALS: BMI 29.2
[2021-04-13 17:28] VITALS: BP 129/67; PULSE 89; RESP 17; TEMP 36.4; O2SAT 99; BMI 26.4
--- NOTE | 2021-04-13 17:47 | EDS_ITS ---
HPI History of Present Illness Chief Complaint: Lower Extremity Injury Informant: patient Narrative Narrative: Patient is a 65-year-old female with a past medical history of CAD with bypass, diabetes who presents to the emergency department for left foot pain. This started over 1 week ago. She was seen by her PCP who placed her on Lasix for swelling of that extremity. She had an ultrasound performed at that time which did not show any evidence of DVT. She denies having any injury at the onset of the symptoms. She states it hurts mostly whenever she puts weight on it. She denies any fevers or chills. She is been taking Tylenol for this which has not been giving her any relief. She describes the pain as severe. The foot has started to turn red. She denies any history of neuropathy. No chest pain, back pain, abdominal pain. No shortness of breath. [facility] Medical History Anxiety and depression Atherosclerotic heart disease of [place] coronary artery without angina pectoris Biceps tendonitis on left Bipolar disorder Cancer Constipation COPD (chronic obstructive pulmonary disease) CVA (cerebral vascular accident) Diabetes Dysarthria Dysphagia Essential (primary) hypertension Fe deficiency anemia Former smoker GERD (gastroesophageal reflux disease) Hyperlipidemia Hypertension Left-sided weakness Myocardial infarct Nicotine dependence Nonrheumatic aortic (valve) insufficiency Pulmonary embolism Schizophrenia Sleep apnea TIA (transient ischemic attack) (12/2018) Type 2 diabetes mellitus Home Medications aspirin 81 mg PO DAILY 02/04/16 [History Last Taken 03/01/21] nitroglycerin 0.4 mg SUBLINGUAL Q5M PRN 09/28/17 [History Last Taken 03/01/21] furosemide 40 mg PO DAILY 11/17/18 [History Last Taken 03/01/21] metformin 1,000 mg PO BID 11/17/18 [History Last Taken 03/01/21] clopidogrel 75 mg PO DAILY 10/30/19 [History Last Taken 03/01/21] glimepiride 4 mg PO DAILY 10/30/19 [History Last Taken 03/01/21] omeprazole 40 mg capsule,delayed release 40 mg PO DAILY PRN cap 07/16/20 [History Last Taken 03/01/21] gabapentin 300 mg PO BID 07/18/20 [History Last Taken 03/01/21] isosorbide mononitrate 30 mg PO DAILY 07/18/20 [History Last Taken 03/01/21] atorvastatin 40 mg PO QHS #30 tab 07/20/20 [Rx Last Taken 02/28/21] metoprolol tartrate 12.5 mg PO BID tab 07/20/20 [Rx Last Taken 03/01/21] insulin asp prt-insulin aspart 15 units SC BIDCM 10/05/20 [History Last Taken 03/01/21] ondansetron 8 mg PO Q8H PRN PRN #20 tablet 01/21/21 [Rx Last Taken 02/28/21] zolpidem 5 mg PO QHS PRN PRN #14 tab 01/21/21 [Rx Last Taken 02/28/21] Humalog KwikPen Insulin 13 units TIDCM 03/01/21 [History Last Taken 03/01/21] ondansetron 4 mg PO Q8H PRN #10 tab 03/11/21 [Rx Last Taken Unknown] cephalexin 500 mg PO Q8H 7 Days #21 cap 04/13/21 [Rx Last Taken Unknown] Allergy/AdvReac Type Severity Reaction Status Date / Time Penicillins Allergy Hives Verified 04/13/21 17:30 hydrocodone bitartrate AdvReac Vomiting Verified 04/13/21 17:30 [From Vicodin] ibuprofen AdvReac Vomiting Verified 04/13/21 17:30 Family History Father Heart disease Hypertension Diabetes Hyperlipidemia Mother Diabetes Heart disease Hypertension Hyperlipidemia Brother Heart disease Age 46 Sister Diabetes Cancer Hyperlipidemia Surgical History H/O coronary artery bypass surgery (01/25/20) H/O: hysterectomy History of aortic valve replacement with bioprosthetic valve (01/25/20) History of coronary artery stent placement (03/15/17) History of coronary artery stent placement History of left heart catheterization (09/19/17) History of shoulder surgery (01/2021) Hx of cholecystectomy Social History Smoking Status: Former smoker alcohol intake: never substance use type: does not use ROS ROS ED Constitutional Constitutional ED: Denies chills or fever(s) Eyes Eyes: Denies change in vision ENT ENT ED: Denies epistaxis or rhinorrhea Cardiovascular Cardiovascular: Denies chest pain or palpitations Respiratory/Chest Respiratory/Chest: Denies cough, dyspnea or dyspnea on exertion Gastrointestinal Gastrointestinal: Denies abdominal pain, diarrhea, nausea or vomiting Genitourinary Genitourinary ED: Denies dysuria, hematuria or urinary frequency Musculoskeletal Musculoskeletal: Reports arthralgias; Denies back pain or neck pain Integumentary Reports rash Neurologic Neurologic: Denies dizziness, headache(s) or weakness EXAM Physical Exam Const Vital Signs: 04/13/21 17:28 Temperature 97.5 F L Temperature Source Temporal Pulse Rate 89 Respiratory Rate 17 Blood Pressure 129/67 H Blood Pressure Mean 87 Pulse Ox 99 Oxygen Delivery Method Room Air Positive well nourished and well developed General Appearance ED: well developed and NAD HEENT Reports normocephalic and head/scalp atraumatic Eyes PERRL and EOMs intact bilaterally Neck supple Resp normal respiratory effort and clear to auscultation bilaterally Auscultation: Negative for rales, rhonchi or wheezes Cardio regular rate, regular rhythm and no murmurs GI normal to inspection, nondistended, normoactive bowel sounds and non-tender Palpation: soft; Negative for guarding or rebound tenderness present Extremity Extremity Narrative: Left ankle has trace edema down to the foot. On the dorsal aspect of the foot there is some mild erythema. She has some mild scaling of the skin as well. Full range of motion. The dorsal aspect of the foot is very tender to the touch. She is neurovascular intact. Negative Homans' sign. No calf tenderness. No swelling going up the leg. No streaking up the leg. Neuro no sensory deficits noted Sensorium / Orientation: alert Motor Exam: strength 5/5 throughout Psych mental status grossly normal MDM MDM MDM Narrative Medical decision making narrative: Patient presents to ED for left foot pain. Scribes as a burning sensation. It is warm, tender to the touch and erythematous. This could represent a cellulitis. Her vital signs are within normal limits. No systemic signs. Low concern for sepsis. Will check an x-ray to evaluate for any signs of osteomyelitis or fracture underlying. Will end up placing on antibiotic. She is to follow-up with her PCP. She already had an ultrasound to eval for DVT. X-ray of the foot did not reveal any acute findings. We will treat this as cellulitis with antibiotic. She needs a repeat evaluation in the next few days by her PCP to make sure this is resolving. No evidence of sepsis. she understands and is agreeable with plan. Return precautions are reviewed. Clinical impression: #1 cellulitis of left foot #2 left foot pain Discharge Plan Triage Chief Complaint: Lower Extremity Injury ED Provider: Harsh Dominguez Dx/Rx/DC Orders Instructions: Cellulitis Prescriptions: New cephalexin 500 mg capsule 500 mg PO Q8H 7 Days Qty: 21 RF: 0 No Action omeprazole 40 mg capsule,delayed release(DR/EC) 40 mg PO DAILY PRN (Reason: Heartburn) RF: 0 aspirin 81 MG tablet,delayed release (DR/EC) 81 mg PO DAILY RF: 0 nitroglycerin 0.4 MG tablet 0.4 mg SUBLINGUAL Q5M PRN (Reason: Chest Pain) RF: 0 furosemide 40 MG tablet 40 mg PO DAILY RF: 0 metformin 1,000 MG tablet 1,000 mg PO BID RF: 0 clopidogrel 75 MG tablet 75 mg PO DAILY RF: 0 glimepiride 4 MG tablet 4 mg PO DAILY RF: 0 gabapentin 300 MG capsule 300 mg PO BID RF: 0 isosorbide mononitrate 30 MG tablet extended release 24 hr 30 mg PO DAILY RF: 0 atorvastatin 40 MG tablet 40 mg PO QHS Qty: 30 RF: 0 metoprolol tartrate 25 MG tablet 12.5 mg PO BID RF: 0 insulin asp prt-insulin aspart 100 UNITS/ML insulin pen 15 units SC BIDCM RF: 0 zolpidem 5 MG tablet 5 mg PO QHS PRN PRN (Reason: Insomnia) Qty: 14 RF: 0 ondansetron 4 MG tablet 8 mg PO Q8H PRN PRN (Reason: Nausea) Qty: 20 RF: 0 Humalog KwikPen Insulin 13 UNITS 13 units TIDCM RF: 0 ondansetron 4 mg tablet,disintegrating 4 mg PO Q8H PRN (Reason: nausea and vomiting) Qty: 10 RF: 0 Primary Care Provider: Charles Chavez Chi Referrals: Charles Chavez Chi, MD [Primary Care Provider] - 3-5 Days Disposition Disposition: Home, Self Care Discharge Date/Time: 04/13/21 20:44
--- NOTE | 2021-04-13 18:21 | RAD_ITS ---
STUDY: X-RAY - LEFT FOOT CLINICAL: Female, 65 years old. Pain, swelling dorsal foot TECHNIQUE: 3 view(s) of the foot. COMPARISON: None. FINDINGS: A small to moderate-sized plantar calcaneal spur is present. Small soft tissue calcification of the lower leg noted. No visualized acute fracture or displaced bony fragment. Normal talus, calcaneus, and tarsal bones. Normal visualized subtalar, talonavicular, calcaneocuboid, tarsal and tarsometatarsal articulations. Normal metatarsi. Normal metatarsophalangeal joint of the great toe. Normal tibial and fibular sesamoid bones. Normal interphalangeal joint of the great toe. Normal phalanges of the great toe. Normal second through fifth metatarsophalangeal joints. Normal interphalangeal joints and phalanges of the lesser toes. The soft tissue structures are unremarkable. There is no demonstrated fracture. RAD/Foot min 3 Views IMPRESSION: No acute process Electronically Signed: Mike Thompson MD at 20:25 EDT , Service support ,
== END 2021-04-13 20:44 | disposition home or self-care (01) ==
PROVIDERS: Emergency Provider Emergency Medicine; PCP Family Medicine Geriatric Medicine
DX: L03.116 Cellulitis of left lower limb (principal); M79.672 Pain in left foot; I10 Essential (primary) hypertension; E11.9 Type 2 diabetes mellitus without complications; E78.5 Hyperlipidemia, unspecified; F20.9 Schizophrenia, unspecified; F31.9 Bipolar disorder, unspecified; F41.9 Anxiety disorder, unspecified; I25.2 Old myocardial infarction; I35.1 Nonrheumatic aortic (valve) insufficiency; J44.9 Chronic obstructive pulmonary disease, unspecified; K21.9 Gastro-esophageal reflux disease without esophagitis; G47.30 Sleep apnea, unspecified; I25.10 Atherosclerotic heart disease of native coronary artery without angina pectoris; Z86.2 Personal history of diseases of the blood and blood-forming organs and certain disorders involving the immune mechanism; Z86.73 Personal history of transient ischemic attack (TIA), and cerebral infarction without residual deficits; Z86.711 Personal history of pulmonary embolism; Z95.1 Presence of aortocoronary bypass graft; Z79.4 Long term (current) use of insulin; Z79.82 Long term (current) use of aspirin; Z79.899 Other long term (current) drug therapy; Z87.891 Personal history of nicotine dependence
CPT/HCPCS: 73630; 99282

== ENCOUNTER → 2021-04-29 14:22 | Outpatient (CLI) | payer MEDICARE, SELFPAY ==
[2017-03-16 08:30] VITALS: BMI 29.2
[2021-04-13 17:28] VITALS: BMI 26.4
[2021-04-29 17:06] LABS: Absolute Lymphocyte Count 3.17 X10^3/uL (0.83-4.51); Absolute Neutrophil Count 4.2 X10^3/uL (2.0-7.7); Basophil# 0.06 X10^3/uL; Basophil% 0.7 % (0-1); Eosinophil# 0.27 X10^3/uL; Eosinophils% 3.3 % (0-5); Hematocrit 39.5 % (37-47); Hemoglobin 13.1 g/dL (12.0-15.0); Lymphocyte # 3.17 X10^3/ul (0.83-4.51); Lymphocyte % 38.7 % (19-41); Mean Corp Hgb Conc 33.2 g/dL (32-36); Mean Corpuscular Hgb 31.6 pg (27.0-32.0); Mean Corpuscular Volume 95.4 fL (81-99); Mean Platelet Vol. 11.7 fl (6.2-12.0); Monocyte# 0.51 X10^3/uL; Monocyte% 6.2 % (0-10); NRBC Flagged by Analyzer 0 % (0-5); Neutrophil # 4.16 X10^3/uL (2.7-7.7); Neutrophil % 50.7 % (47-70); Platelet Count 248 K/mm3 (150-450); RBC Distribution Width CV 12.1 % (11.6-14.6); RBC Distribution Width SD 42.2 fl (35.1-43.9); Red Blood Count 4.14 M/mm3 (4.2-5.4); White Blood Count 8.2 K/mm3 (4.4-11.0)
[2021-04-29 17:30] LABS: ALB/GLOB Ratio 1.1 RATIO (0.9-2.4); AST(SGOT) 30 U/L (15-37); Alanine Aminotransfer ALT/SGPT 38 U/L (13-56); Albumin, Serum 4.1 g/dL (3.2-5.0); Alkaline Phosphatase 58 U/L (45-117); BUN 22 mg/dL (7-18); BUN/Creat Ratio 17.1 RATIO (10-20); Calcium,Total 9.2 mg/dL (8.5-10.1); Creatinine, Serum 1.29 mg/dL (0.55-1.02); EST Glomerular Filtration Rate 44 mL/min (>60); Est Glom Filt Rate - Afr Amer 53 mL/min (>60); Globulin 3.6 g/dL (2.2-4.2); Glucose 278 mg/dL (74-106); Protein, Total 7.7 g/dL (6.4-8.2); Sodium Level 136 mmol/L (136-145)
[2021-04-29 17:31] LABS: Anion Gap 5 (5-15); Chloride 104 mmol/L (98-107); Potassium 4.7 mmol/L (3.5-5.1); Thyroid Stim Hormone (TSH) 2.14 uIU/mL (0.358-3.74)
[2021-05-01 08:48] LABS: Vitamin D,25 Hydroxy 32.7 ng/mL
== END ==
PROVIDERS: PCP Family Medicine Geriatric Medicine; Visit Provider Family Medicine Geriatric Medicine
DX: E55.9 Vitamin D deficiency, unspecified (principal); I10 Essential (primary) hypertension; E11.65 Type 2 diabetes mellitus with hyperglycemia
CPT/HCPCS: 36415; 80053; 82306; 84443; 85025

== ENCOUNTER 2021-05-28 12:19 | Observation (INO) | payer MEDICARE, SELFPAY ==
[2017-03-16 08:30] VITALS: BMI 29.2
[2021-05-28] VITALS (12 sets, daily range): BP systolic 94–118; BP diastolic 57–98; PULSE 68–80; RESP 14–20; TEMP 36.6–37.2; O2SAT 95–100; BMI 27.6; BMI 26.9
--- NOTE | 2021-05-28 12:32 | CT_ITS ---
STUDY: CT BRAIN WITHOUT CONTRAST REASON FOR EXAM: Female, 65 years old. Head trauma. RADIATION DOSAGE (If Supplied By Facility): CTDIvol = ( 44.99 ) mGy, DLP = ( 812.98 ) mGycm TECHNIQUE: Transaxial CT imaging of the brain was performed without administration of intravenous contrast material. Individualized dose optimization techniques were used for this CT. COMPARISON: Comparison is made with prior examination dated 09/07/2020. FINDINGS: Normal soft tissue structures. There is hyperostosis frontalis internus. Normal size ventricles and extra-axial spaces for the patient''s age. Normal white matter tracts of the cerebral hemispheres. Normal basal ganglia and thalami. Normal brainstem. Normal cerebellum. There is no intracranial hemorrhage. There are no findings of an acute ischemic infarction. Normal visualized paranasal sinuses. CT/Brain/Head without Contrast IMPRESSION: Normal unenhanced CT scan of the brain. Electronically Signed: Uriah Weathers MD at 13:25 EDT , Service support ,
--- NOTE | 2021-05-28 12:33 | EKG12_ITS ---
Test Reason : SYNCOPE Blood Pressure : / mmHG Vent. Rate : 072 BPM Atrial Rate : 072 BPM P-R Int : 154 ms QRS Dur : 082 ms QT Int : 422 ms P-R-T Axes : 051 038 061 degrees QTc Int : 462 ms Normal sinus rhythm Normal ECG Confirmed by ADRIAN BARFIELD, DAVID ([id number]), proof coin collector TAQUERIA CHAMBERLAIN ([id number]) on 06/01/2021 1:02:12 PM Referred By: ADALI Confirmed By:DAVID CAMPBELL MD
--- NOTE | 2021-05-28 12:44 | EDS_ITS ---
HPI History of Present Illness Chief Complaint: Syncope Informant: patient Onset/Context/Timing Onset: Today and Hours Context: Gradual Onset Current Severity: Mild Maximum Severity: Mild Narrative Narrative: 65-year-old female reportedly was walking in her bedroom today and passed out falling hitting her head. She is on Plavix. Said before the fall she felt fine since the fall she has had nausea some head discomfort and diarrhea. She is on Plavix due to open past medical history of CAD, multiple stents, SD and prior CABG. She is also diabetic and has had a hysterectomy. She denies any fever or chills. Said the last few days she has felt fine. Prior similar symptoms: No Recent Illness/Hospitalization: No PFSH PFS Medical History Anxiety and depression Atherosclerotic heart disease of [place] coronary artery without angina pectoris Biceps tendonitis on left Bipolar disorder Cancer Constipation COPD (chronic obstructive pulmonary disease) CVA (cerebral vascular accident) Diabetes Dysarthria Dysphagia Essential (primary) hypertension Fe deficiency anemia Former smoker GERD (gastroesophageal reflux disease) Hyperlipidemia Hypertension Left-sided weakness Myocardial infarct Nicotine dependence Nonrheumatic aortic (valve) insufficiency Pulmonary embolism Schizophrenia Sleep apnea TIA (transient ischemic attack) (12/2018) Type 2 diabetes mellitus Home Medications aspirin 81 mg PO DAILY 02/04/16 [History Last Taken 03/01/21] nitroglycerin 0.4 mg SUBLINGUAL Q5M PRN 09/28/17 [History Last Taken 03/01/21] furosemide 40 mg PO DAILY 11/17/18 [History Last Taken 03/01/21] metformin 1,000 mg PO BID 11/17/18 [History Last Taken 03/01/21] clopidogrel 75 mg PO DAILY 10/30/19 [History Last Taken 03/01/21] glimepiride 4 mg PO DAILY 10/30/19 [History Last Taken 03/01/21] omeprazole 40 mg capsule,delayed release 40 mg PO DAILY PRN cap 07/16/20 [History Last Taken 03/01/21] gabapentin 300 mg PO BID 07/18/20 [History Last Taken 03/01/21] isosorbide mononitrate 30 mg PO DAILY 07/18/20 [History Last Taken 03/01/21] atorvastatin 40 mg PO QHS #30 tab 07/20/20 [Rx Last Taken 02/28/21] metoprolol tartrate 12.5 mg PO BID tab 07/20/20 [Rx Last Taken 03/01/21] insulin asp prt-insulin aspart 15 units SC BIDCM 10/05/20 [History Last Taken 03/01/21] zolpidem 5 mg PO QHS PRN PRN #14 tab 01/21/21 [Rx Last Taken 02/28/21] Allergy/AdvReac Type Severity Reaction Status Date / Time Penicillins Allergy Hives Verified 05/28/21 12:25 hydrocodone bitartrate AdvReac Vomiting Verified 05/28/21 12:25 [From Vicodin] ibuprofen AdvReac Vomiting Verified 05/28/21 12:25 Family History Father Heart disease Hypertension Diabetes Hyperlipidemia Mother Diabetes Heart disease Hypertension Hyperlipidemia Brother Heart disease Age 46 Sister Diabetes Cancer Hyperlipidemia Surgical History H/O coronary artery bypass surgery (01/25/20) H/O: hysterectomy History of aortic valve replacement with bioprosthetic valve (01/25/20) History of coronary artery stent placement (03/15/17) History of coronary artery stent placement History of left heart catheterization (09/19/17) History of shoulder surgery (01/2021) Hx of cholecystectomy Social History Smoking Status: Former smoker alcohol intake: never substance use type: does not use ROS ROS ED ROS Narrative No recent illness. Since the fall today she has had nausea, head discomfort and diarrhea. Review of Systems ROS Unobtainable: Denies due to encephalopathy Constitutional Constitutional ED: Denies chills or fever(s) Eyes Eyes: Denies change in vision ENT ENT ED: Denies sore throat Cardiovascular Cardiovascular: Denies chest pain Respiratory/Chest Respiratory/Chest: Denies cough or dyspnea Gastrointestinal Gastrointestinal: Reports diarrhea and nausea; Denies abdominal pain, c onstipation, melena or vomiting Genitourinary Genitourinary ED: Denies dysuria Musculoskeletal Musculoskeletal: Denies myalgias Integumentary Denies rash Neurologic Neurologic: Denies headache(s) Psychiatric Psychiatric: Denies depression Endocrine Endocrinology: Denies polyuria Allergic/Immunologic Allergic/Immunologic ED: Denies urticaria EXAM Physical Exam Narrative Exam Narrative: 65-year-old female no acute distress. Vital signs stable afebrile pulse ox 90% on room air. HEENT exam. Laceration intact. No hematoma or laceration to the scalp. No trauma to the face. C-spine nontender. Trachea midline. Lungs clear to auscultation bilaterally. Heart regular rhythm no murmur rate about 70. Chest wall nontender. Abdomen soft nontender normal bowel sounds no peritoneal signs. Pelvic girdle intact. Moving all 4 extremities. Nontender. No deformity. Normal lubricator granulator strength bilaterally. Dorsi plantar flexion intact. Back nontender. No signs of trauma. Spine nontender. Neurologically she is awake and alert answering questions and following commands. Const Vital Signs: 05/28/21 12:23 05/28/21 12:25 05/28/21 12:53 Temperature 97.8 F Temperature Source Oral Pulse Rate 74 Respiratory Rate 18 Respiratory Effort Normal Non-Labored Blood Pressure 116/68 Blood Pressure Mean 84 Pulse Ox 99 98 Oxygen Delivery Method Room Air Room Air 05/28/21 13:22 05/28/21 14:00 Temperature Temperature Source Pulse Rate 72 71 Respiratory Rate 20 H 17 Respiratory Effort Blood Pressure 115/62 117/66 Blood Pressure Mean 79 83 Pulse Ox 98 95 Oxygen Delivery Method Room Air Room Air Positive well nourished and well developed; Negative for obese, cachectic, contractures or unkempt General Appearance ED: well developed and NAD; Negative for unkempt, cachectic or contractures Nutritional Appearance: Negative for cachectic or obese HEENT Reports moist mucous membranes trauma; Negative for tenderness Eyes PERRL and EOMs intact bilaterally Neck no lymphadenopathy, supple and no JVD General: Negative for tenderness Chest Wall inspection of chest normal and palpation of chest normal Resp normal respiratory effort and clear to auscultation bilaterally Effort and Inspection: Negative for pain with movement Auscultation: Negative for rales, rhonchi or wheezes Cardio regular rate, regular rhythm, S1 normal heart sound, S2 normal heart sound and no murmurs GI normal to inspection, nondistended, normoactive bowel sounds, non-tender, non- distended and no masses Inspection: Negative for abdominal distention Auscultation: normoactive bowel sounds Palpation: soft; Negative for tender, guarding or rebound tenderness present Back/Spine no CVA tenderness General Back: Negative for CVA tenderness Cervical Spine: Negative for cervical spine tenderness Thoracic Spine / Upper Back: Negative for thoracic spinal tenderness Extremity normal to inspection General Extremety ED: Negative for edema or tenderness General Extremity: Negative for edema Neuro oriented x3 Sensorium / Orientation: alert; Negative for orientation impaired, lethargic or stuporous Motor Exam: strength 5/5 throughout Psych mental status grossly normal Appearance: Negative for unkempt Attitude: No agitated Mood & Affect: Negative for depressed or tearful Skin no rashes or lesions noted, no wounds and No skin turgor normal MDM MDM MDM Narrative Medical decision making narrative: Older female no acute distress. Vital signs stable afebrile. She had a syncopal episode. She has a long history of cardiac disease. She undergo cardiac work-up. She did hit her head reportedly is on Plavix so we will get a CAT scan of her brain. Also check orthostatic vital signs. Repeat exam at 2:30 PM patient is doing fine. States she still nauseated so she will be given a second dose of Zofran. She and I went over her test results. I do not know what caused her syncopal event. The nausea may be secondary to the head injury it could also be that she is developing a viral gastroenteritis with the nausea, vomiting and diarrhea but none of that occurred till after she fell and hit her head. I have the hospitalist on page for admission Lab Data Attestation: I reviewed the patient's lab results. Lab results narrative: CBC shows a white count 9. Hemoglobin 12.1 chest x-ray unremarkable. Chemistries unremarkable. Gap of 5. Creatinine of 1. Glucose 137. High-sensitivity troponin normal at 5. Labs: Laboratory Results - last 24 hr 05/28/21 05/28/21 14:05 14:05 WBC 9.5 RBC 3.91 L Hgb 12.1 Hct 36.3 L MCV 92.8 MCH 30.9 MCHC 33.3 RDW Std Deviation 41.2 RDW Coeff of [place] 12.0 Plt Count 212 MPV 10.9 Immature Gran % (Auto) 0.500 Neut % (Auto) 73.2 H Lymph % (Auto) 18.8 L [place] % (Auto) 5.2 Eos % (Auto) 1.8 Baso % (Auto) 0.5 Absolute Neuts (auto) 7.0 Absolute Lymphs (auto) 1.79 Nucleated RBC % 0 Sodium 138 Potassium 4.3 Chloride 106 Carbon Dioxide 27.0 Anion Gap 5 BUN 20 H Creatinine 1.06 H Estim Creat Clear Calc 42.60 Est GFR (MDRD) Af Amer 66 Est GFR (MDRD) Non-Af 55 L BUN/Creatinine Ratio 18.9 Glucose 137 H Calcium 8.9 Troponin I High Sens 5 Radiography Chest X-Ray - ED: 1 View, Read by ED Physician, Heart, Lungs, Mediastinum, Bony Structures, No Acute Disease and Chronic Changes Diagnostic Testing: Radiology Impression Brain CT 05/28/21 12:32 IMPRESSION: Normal unenhanced CT scan of the brain. Electronically Signed: Uriah Weathers MD at 13:25 EDT , Service support , Chest X-Ray 05/28/21 13:05 IMPRESSION: Stable examination. No acute abnormality is seen. Electronically Signed: Uriah Weathers MD at 13:42 EDT , Service support , Portable chest x-ray interpreted both by myself and radiologist shows no acute abnormality. Chronic changes with the prior surgery. Rhythm Strip Rhythm Strip: Sinus Rhythm Rate: 72 Ectopy: None EKG Initial EKG: Attestation: I personally reviewed and interpreted this EKG as follows: Interpretation: Sinus Rhythm and No Acute Injury Pattern Comments: Normal sinus rhythm rate of 72 no acute signs of SD or ischemia. No dysrhythmia. Prior EKG tracings: not available for review Discharge Plan Triage Chief Complaint: Syncope ED Provider: Alec Ross Dx/Rx/DC Orders Clinical Impression: Syncope, Vomiting, Viral gastroenteritis, Head injury Prescriptions: No Action omeprazole 40 mg capsule,delayed release(DR/EC) 40 mg PO DAILY PRN (Reason: Heartburn) RF: 0 aspirin 81 MG tablet,delayed release (DR/EC) 81 mg PO DAILY RF: 0 nitroglycerin 0.4 MG tablet 0.4 mg SUBLINGUAL Q5M PRN (Reason: Chest Pain) RF: 0 furosemide 40 MG tablet 40 mg PO DAILY RF: 0 metformin 1,000 MG tablet 1,000 mg PO BID RF: 0 clopidogrel 75 MG tablet 75 mg PO DAILY RF: 0 glimepiride 4 MG tablet 4 mg PO DAILY RF: 0 gabapentin 300 MG capsule 300 mg PO BID RF: 0 isosorbide mononitrate 30 MG tablet extended release 24 hr 30 mg PO DAILY RF: 0 atorvastatin 40 MG tablet 40 mg PO QHS Qty: 30 RF: 0 metoprolol tartrate 25 MG tablet 12.5 mg PO BID RF: 0 insulin asp prt-insulin aspart 100 UNITS/ML insulin pen 15 units SC BIDCM RF: 0 zolpidem 5 MG tablet 5 mg PO QHS PRN PRN (Reason: Insomnia) Qty: 14 RF: 0 Primary Care Provider: Charles Chavez Chi Referrals: Charles Chavez Chi, MD [Primary Care Provider] - Disposition Disposition: Acute Care Hospital [facility]
--- NOTE | 2021-05-28 13:05 | RAD_ITS ---
STUDY: X-RAY CHEST REASON FOR EXAM: Female, 65 years old. Chest pain TECHNIQUE: Single AP portable view of the chest. COMPARISON: Comparison is made with prior study dated 03/10/2021. FINDINGS: EKG electrodes are seen. The lungs are clear and expanded. There is no demonstrated pleural abnormality. Sternal cerclage wires and vascular clips are present from a prior sternotomy and coronary artery bypass graft procedure (CABG). Normal mediastinum and jovan. Normal visualized pulmonary arteries. There is atherosclerotic calcification of the aortic arch with tortuosity. Normal visualized thoracic spine. Normal visualized ribs, clavicles, and shoulders. There is no demonstrated abnormality of the visualized soft tissue structures of the upper abdomen. RAD/Chest 1 View (Portable) IMPRESSION: Stable examination. No acute abnormality is seen. Electronically Signed: Uriah Weathers MD at 13:42 EDT , Service support ,
[2021-05-28 14:10] LABS: Absolute Lymphocyte Count 1.79 X10^3/uL (0.83-4.51); Basophil# 0.05 X10^3/uL; Basophil% 0.5 % (0-1); Eosinophil# 0.17 X10^3/uL; Eosinophils% 1.8 % (0-5); Hematocrit 36.3 % (37-47); Hemoglobin 12.1 g/dL (12.0-15.0); Lymphocyte # 1.79 X10^3/ul (0.83-4.51); Lymphocyte % 18.8 % (19-41); Mean Corp Hgb Conc 33.3 g/dL (32-36); Mean Corpuscular Hgb 30.9 pg (27.0-32.0); Mean Corpuscular Volume 92.8 fL (81-99); Mean Platelet Vol. 10.9 fl (6.2-12.0); Monocyte# 0.49 X10^3/uL; Monocyte% 5.2 % (0-10); NRBC Flagged by Analyzer 0 % (0-5); Neutrophil # 6.96 X10^3/uL (2.7-7.7); Neutrophil % 73.2 % (47-70); Platelet Count 212 K/mm3 (150-450); RBC Distribution Width SD 41.2 fl (35.1-43.9); Red Blood Count 3.91 M/mm3 (4.2-5.4); White Blood Count 9.5 K/mm3 (4.4-11.0)
[2021-05-28 14:31] LABS: Anion Gap 5 (5-15); BUN 20 mg/dL (7-18); BUN/Creat Ratio 18.9 RATIO (10-20); Calcium,Total 8.9 mg/dL (8.5-10.1); Chloride 106 mmol/L (98-107); Creatinine, Serum 1.06 mg/dL (0.55-1.02); EST Glomerular Filtration Rate 55 mL/min (>60); Est Glom Filt Rate - Afr Amer 66 mL/min (>60); Glucose 137 mg/dL (74-106); Potassium 4.3 mmol/L (3.5-5.1); Sodium Level 138 mmol/L (136-145); Troponin-I HS 5 pg/mL (3.0-54.0)
--- NOTE | 2021-05-28 15:35 | PCM.HP.STD ---
HPI - General General Date of Admission: 05/28/21 Date of Service: 05/28/21 Chief Complaint: syncope HPI Narrative SOFÍA CURTIS, is a 65 F who presents with syncope. Patient was not feeling well and feeling lightheaded earlier today and then she went down hitting her head and her left arm. She presented to the emergency room for evaluation. After hitting her head, patient has been having a headache. Patient was nauseated beforehand and did have vomiting afterwards. Yesterday she had been feeling fine before this event. She denies history of syncope. PENDING SALE TO [facility] Medical History Anxiety and depression Atherosclerotic heart disease of [place] coronary artery without angina pectoris Biceps tendonitis on left Bipolar disorder Cancer Constipation COPD (chronic obstructive pulmonary disease) CVA (cerebral vascular accident) Diabetes Dysarthria Dysphagia Essential (primary) hypertension Fe deficiency anemia Former smoker GERD (gastroesophageal reflux disease) Hyperlipidemia Hypertension Left-sided weakness Myocardial infarct Nicotine dependence Nonrheumatic aortic (valve) insufficiency Pulmonary embolism Schizophrenia Sleep apnea TIA (transient ischemic attack) (12/2018) Type 2 diabetes mellitus Home Medications aspirin 81 mg PO DAILY 02/04/16 [History Last Taken 03/01/21] nitroglycerin 0.4 mg SUBLINGUAL Q5M PRN 09/28/17 [History Last Taken 03/01/21] furosemide 40 mg PO DAILY 11/17/18 [History Last Taken 03/01/21] metformin 1,000 mg PO BID 11/17/18 [History Last Taken 03/01/21] clopidogrel 75 mg PO DAILY 10/30/19 [History Last Taken 03/01/21] glimepiride 4 mg PO DAILY 10/30/19 [History Last Taken 03/01/21] omeprazole 40 mg capsule,delayed release 40 mg PO DAILY PRN cap 07/16/20 [History Last Taken 03/01/21] gabapentin 300 mg PO BID 07/18/20 [History Last Taken 03/01/21] isosorbide mononitrate 30 mg PO DAILY 07/18/20 [History Last Taken 03/01/21] atorvastatin 40 mg PO QHS #30 tab 07/20/20 [Rx Last Taken 02/28/21] metoprolol tartrate 12.5 mg PO BID tab 10/11/20 [Rx Last Taken 03/01/21] insulin asp prt-insulin aspart 15 units SC BIDCM 10/05/20 [History Last Taken 03/01/21] zolpidem 5 mg PO QHS PRN PRN #14 tab 01/21/21 [Rx Last Taken 02/28/21] Allergy/AdvReac Type Severity Reaction Status Date / Time Penicillins Allergy Hives Verified 05/28/21 12:25 hydrocodone bitartrate AdvReac Vomiting Verified 05/28/21 12:25 [From Vicodin] ibuprofen AdvReac Vomiting Verified 05/28/21 12:25 Family History Father Heart disease Hypertension Diabetes Hyperlipidemia Mother Diabetes Heart disease Hypertension Hyperlipidemia Brother Heart disease Age 46 Sister Diabetes Cancer Hyperlipidemia Surgical History H/O coronary artery bypass surgery (01/25/20) H/O: hysterectomy History of aortic valve replacement with bioprosthetic valve (01/25/20) History of coronary artery stent placement (03/15/17) History of coronary artery stent placement History of left heart catheterization (09/19/17) History of shoulder surgery (01/2021) Hx of cholecystectomy Social History Smoking Status: Former smoker alcohol intake: never substance use type: does not use ROS ROS Narrative No blurry vision no double vision. No chest pain no palpitations. ROS. Vital Signs Vital Signs Vital Signs: 05/28/21 12:23 05/28/21 12:25 05/28/21 12:53 Temperature 36.6 C Temperature Source Oral Pulse Rate 74 Respiratory Rate 18 Respiratory Effort Normal Non-Labored Blood Pressure 116/68 Blood Pressure Mean 84 Pulse Ox 99 98 Oxygen Delivery Method Room Air Room Air 05/28/21 13:22 05/28/21 14:00 05/28/21 15:00 Temperature 37.2 C Temperature Source Temporal Pulse Rate 72 71 71 Respiratory Rate 20 H 17 14 Respiratory Effort Blood Pressure 115/62 117/66 114/65 Blood Pressure Mean 79 83 81 Pulse Ox 98 95 100 Oxygen Delivery Method Room Air Room Air Room Air Weight Weight: 70.9 kg Body Mass Index (BMI) 27.6 Physical Exam Const alert, oriented x3 and no apparent distress General Appearance: cooperative HEENT normocephalic and head/scalp atraumatic Eyes PERRL and EOMs intact bilaterally Neck no lymphadenopathy Resp normal respiratory effort, no retractions, no use of accessory muscles and clear to auscultation bilaterally Cardio regular rate, regular rhythm, S1 normal heart sound and S2 normal heart sound GI normal to inspection, nondistended, normoactive bowel sounds, soft to palpation, non-tender and non-distended Extremity Extremity Narrative: Some tenderness over the left lateral arm. No ecchymosis appreciated. Skin no rashes or lesions noted Neuro CN's II-XII intact bilaterally, moves all extremities and no focal motor deficits Sensorium / Orientation: awake and alert Psych affect normal Results Lab / Micro Data Attestation: I reviewed the patient's lab results. Result Diagrams: 05/28/21 14:05 05/28/21 14:05 Labs: Laboratory Results - last 24 hr 05/28/21 14:05: WBC 9.5, RBC 3.91 L, Hgb 12.1, Hct 36.3 L, MCV 92.8, MCH 30.9, MCHC 33.3, RDW Std Deviation 41.2, RDW Coeff of [place] 12.0, Plt Count 212, MPV 10.9, Immature Gran % (Auto) 0.500, Neut % (Auto) 73.2 H, Lymph % (Auto) 18.8 L, [place] % (Auto) 5.2, Eos % (Auto) 1.8, Baso % (Auto) 0.5, Absolute Neuts (auto) 7.0, Absolute Lymphs (auto) 1.79, Nucleated RBC % 0 05/28/21 14:05: Sodium 138, Potassium 4.3, Chloride 106, Carbon Dioxide 27.0, Anion Gap 5, BUN 20 H, Creatinine 1.06 H, Estim Creat Clear Calc 42.60, Est GFR (MDRD) Af Amer 66, Est GFR (MDRD) Non-Af 55 L, BUN/Creatinine Ratio 18.9, Glucose 137 H, Calcium 8.9, Troponin I High Sens 5 Rhythm Strip Rhythm Strip: Sinus Rhythm Rate: 72 Ectopy: None EKG Initial EKG: Attestation: I personally reviewed and interpreted this EKG as follows: Prior EKG tracings: available for review EKG Rhythm Intrepretation: Sinus Rhythm Radiology Impression Brain CT 05/28/21 12:32 IMPRESSION: Normal unenhanced CT scan of the brain. Electronically Signed: Uriah Weathers MD at 13:25 EDT , Service support , Chest X-Ray 05/28/21 13:05 IMPRESSION: Stable examination. No acute abnormality is seen. Electronically Signed: Uriah Weathers MD at 13:42 EDT , Service support , Assessment & Plan Assessment/Plan (1) Syncope: QUALIFIERS: Syncope type: vasovagal syncope Qualified Code(s): R55 - Syncope and collapse PLAN: 1. Vasovagal syncope Patient had not been feeling well prior to the event and then she passed out Doubt cardiac arrhythmia Will monitor the patient on the progressive care unit and if no arrhythmia, and patient is otherwise feeling fine, then patient can likely be discharged on the . We will give her some IV fluids as patient did not eat anything yet today 2. Possible viral gastroenteritis Supportive management 3. CAD Continue with aspirin, atorvastatin and clopidogrel. 4. Diabetes mellitus type 2 Hold glimepiride as well as Metformin Sliding scale insulin 5. VTE prophylaxis: Low risk Charges/Coding Visit Charges OBSV E&M: 30884 Initial observation care L3
[2021-05-28] MEDS: Acetaminophen 325 MG Tablet 650 MG PO (17:07)
[2021-05-28] MEDS: 0.9% Normal Saline 1,000 ML 150 ML IV (17:08)
[2021-05-28] MEDS: Insulin Lispro 100 UNIT/ML INSULN.PEN 15 UNIT SC (17:16)
[2021-05-28 17:30] LABS: Bedside Glucose 132 mg/dL (70-110)
[2021-05-28] MEDS: Ondansetron 4 MG/2 ML Vial IV (19:46)
[2021-05-28] MEDS: Atorvastatin Calcium 40 MG Tablet PO (21:51)
[2021-05-28] MEDS: Gabapentin 300 MG Capsule PO (21:51)
[2021-05-28] MEDS: Zolpidem Tartrate 5 MG Tablet PO (21:54)
[2021-05-28] MEDS: Metoprolol Tartrate 25 MG Tablet 12.5 MG PO (22:54)
[2021-05-28 23:01] LABS: Bedside Glucose 120 mg/dL (70-110)
[2021-05-29] VITALS (9 sets, daily range): BP systolic 83–121; BP diastolic 50–65; PULSE 67–78; RESP 14–18; TEMP 36.6–36.9; O2SAT 95–98
[2021-05-29 07:00] LABS: Bedside Glucose 201 mg/dL (70-110)
[2021-05-29] MEDS: Insulin Lispro 100 UNIT/ML INSULN.PEN 15 UNIT SC (08:19)
[2021-05-29] MEDS: Gabapentin 300 MG Capsule PO (08:20)
[2021-05-29] MEDS: Isosorbide Mononitrate 30 MG Tablet PO (08:20)
[2021-05-29] MEDS: Metoprolol Tartrate 25 MG Tablet 12.5 MG PO (08:21)
[2021-05-29] MEDS: Clopidogrel Bisulfate 75 MG Tablet PO (08:21)
--- NOTE | 2021-05-29 11:00 | PCM.DC ---
Discharge Instructions Diet Discharge Diet: Low fat / Low cholesterol Dressing / Incision Call your doctor if you observe: Fever of 101 or Higher Follow Up Care Test Results: Test results from this visit will be discussed in further detail at your follow-up appointment, if applicable. Discharge Plan Admission Admit Date/Time: 05/28/21 15:35 Primary Reason for Your Visit: syncope Attending Provider: Parker Loya Primary Care Provider: Charles Chavez Chi Instructions Patient Instructions: ED Chest Pain, Noncardiac Discharge Orders/Prescriptions Prescriptions: Continued omeprazole 40 mg capsule,delayed release(DR/EC) 40 mg PO DAILY PRN (Reason: Heartburn) RF: 0 aspirin 81 MG tablet,delayed release (DR/EC) 81 mg PO DAILY RF: 0 nitroglycerin 0.4 MG tablet 0.4 mg SUBLINGUAL Q5M PRN (Reason: Chest Pain) RF: 0 metformin 1,000 MG tablet 1,000 mg PO BID RF: 0 clopidogrel 75 MG tablet 75 mg PO DAILY RF: 0 glimepiride 4 MG tablet 4 mg PO DAILY RF: 0 gabapentin 300 MG capsule 300 mg PO BID RF: 0 isosorbide mononitrate 30 MG tablet extended release 24 hr 30 mg PO DAILY RF: 0 atorvastatin 40 MG tablet 40 mg PO QHS Qty: 30 RF: 0 metoprolol tartrate 25 MG tablet 12.5 mg PO BID RF: 0 insulin asp prt-insulin aspart 100 UNITS/ML insulin pen 15 units SC BIDCM RF: 0 zolpidem 5 MG tablet 5 mg PO QHS PRN PRN (Reason: Insomnia) Qty: 14 RF: 0 Discontinued furosemide 40 MG tablet 40 mg PO DAILY RF: 0 Referrals / Follow Up: Charles Chavez Chi, MD [Primary Care Provider] - In 1 Week Disposition Disposition (needs filled in before D/C Order can be placed): Home, Self Care
--- NOTE | 2021-05-29 11:04 | PCM.DC.SUM ---
Providers Date of Admission: 05/28/21 Primary Care Physician: Dr. Charles Chavez MD Reason For Visit: SYNCOPE Diagnosis Discharge Diagnosis (1) Syncope: Status: Acute Code(s): R55 - Syncope and collapse Qualifiers: Syncope type: vasovagal syncope Qualified Code(s): R55 - Syncope and collapse Medications at Discharge Home Medications aspirin 81 mg PO DAILY 02/04/16 nitroglycerin 0.4 mg SUBLINGUAL Q5M PRN 09/28/17 metformin 1,000 mg PO BID 11/17/18 clopidogrel 75 mg PO DAILY 10/30/19 glimepiride 4 mg PO DAILY 10/30/19 omeprazole 40 mg capsule,delayed release 40 mg PO DAILY PRN cap 07/16/20 gabapentin 300 mg PO BID 07/18/20 isosorbide mononitrate 30 mg PO DAILY 07/18/20 atorvastatin 40 mg PO QHS #30 tab 07/20/20 metoprolol tartrate 12.5 mg PO BID tab 07/20/20 insulin asp prt-insulin aspart 15 units SC BIDCM 10/05/20 zolpidem 5 mg PO QHS PRN PRN #14 tab 01/21/21 Hospital Course Operations None Procedures None Summary of Care Provided Minutes Spent on Discharge: 28 Hospital Course: Sick 5-year-old female was not feeling well and then had a syncopal episode. Patient had a head CT that showed no acute process. Syncope is felt to be vasovagal patient was monitored. She did have positive orthostatic vital signs today but patient is feeling much better. Patient did have some elevation in her creatinine but improved today. Patient will continue to hold her furosemide for the time being. Patient may have had for some viral gastroenteritis but she is feeling fine at this time. Patient will be discharged home in stable condition. Physical Exam Const alert Eyes PERRL Resp normal respiratory effort Cardio regular rate, regular rhythm, S1 normal heart sound and S2 normal heart sound GI normal to inspection, nondistended, normoactive bowel sounds, soft to palpation, non-tender and non-distended Weight / BMI Weight Weight: 68.8 kg Body Mass Index (BMI) 26.9 ABG / Lab / Microbiology Data Result Diagrams: 05/28/21 14:05 05/28/21 14:05 Laboratory: Laboratory Results - last 24 hr 05/28/21 14:05: WBC 9.5, RBC 3.91 L, Hgb 12.1, Hct 36.3 L, MCV 92.8, MCH 30.9, MCHC 33.3, RDW Std Deviation 41.2, RDW Coeff of [place] 12.0, Plt Count 212, MPV 10.9, Immature Gran % (Auto) 0.500, Neut % (Auto) 73.2 H, Lymph % (Auto) 18.8 L, [place] % (Auto) 5.2, Eos % (Auto) 1.8, Baso % (Auto) 0.5, Absolute Neuts (auto) 7.0, Absolute Lymphs (auto) 1.79, Nucleated RBC % 0 05/28/21 14:05: Sodium 138, Potassium 4.3, Chloride 106, Carbon Dioxide 27.0, Anion Gap 5, BUN 20 H, Creatinine 1.06 H, Estim Creat Clear Calc 42.60, Est GFR (MDRD) Af Amer 66, Est GFR (MDRD) Non-Af 55 L, BUN/Creatinine Ratio 18.9, Glucose 137 H, Calcium 8.9, Troponin I High Sens 5 05/28/21 17:15: POC Glucose 132 H 05/28/21 21:56: POC Glucose 120 H 05/29/21 06:09: POC Glucose 201 H Microbiology: Microbiology 05/28/21 16:05 Mucosa - Nose SARS-CoV-2 Antigen (Rapid) - Final Radiography Diagnostic Testing: Radiology Impression Brain CT 05/28/21 12:32 IMPRESSION: Normal unenhanced CT scan of the brain. Electronically Signed: Uriah Weathers MD at 13:25 EDT , Service support , Chest X-Ray 05/28/21 13:05 IMPRESSION: Stable examination. No acute abnormality is seen. Electronically Signed: Uriah Weathers MD at 13:42 EDT , Service support , D/C Instructions Discharge Diet: Low fat / Low cholesterol Call your doctor if you observe: Fever of 101 or Higher Meaningful Use Info Meaningful Use Diagnoses (Choose all that apply): None applicable Discharge Plan Admission Admit Date/Time: 05/28/21 15:35 Primary Reason for Your Visit: syncope Attending Provider: Parker Loya Primary Care Provider: Charles Chavez Chi Instructions Patient Instructions: ED Chest Pain, Noncardiac Discharge Orders/Prescriptions Prescriptions: Continued omeprazole 40 mg capsule,delayed release(DR/EC) 40 mg PO DAILY PRN (Reason: Heartburn) RF: 0 aspirin 81 MG tablet,delayed release (DR/EC) 81 mg PO DAILY RF: 0 nitroglycerin 0.4 MG tablet 0.4 mg SUBLINGUAL Q5M PRN (Reason: Chest Pain) RF: 0 metformin 1,000 MG tablet 1,000 mg PO BID RF: 0 clopidogrel 75 MG tablet 75 mg PO DAILY RF: 0 glimepiride 4 MG tablet 4 mg PO DAILY RF: 0 gabapentin 300 MG capsule 300 mg PO BID RF: 0 isosorbide mononitrate 30 MG tablet extended release 24 hr 30 mg PO DAILY RF: 0 atorvastatin 40 MG tablet 40 mg PO QHS Qty: 30 RF: 0 metoprolol tartrate 25 MG tablet 12.5 mg PO BID RF: 0 insulin asp prt-insulin aspart 100 UNITS/ML insulin pen 15 units SC BIDCM RF: 0 zolpidem 5 MG tablet 5 mg PO QHS PRN PRN (Reason: Insomnia) Qty: 14 RF: 0 Discontinued furosemide 40 MG tablet 40 mg PO DAILY RF: 0 Referrals / Follow Up: Charles Chavez Chi, MD [Primary Care Provider] - In 1 Week Disposition Disposition (needs filled in before D/C Order can be placed): Home, Self Care Charges/Coding Visit Charges OBSV E&M: 36198 Observation care discharge
--- NOTE | 2021-05-29 11:29 | PHA.DC.MR ---
Pharmacy Service has performed discharge medication reconciliation for this patient. No new medications at time of discharge medication review. Medications reviewed are from previously reported home medications. Home Medications aspirin 81 mg PO DAILY 02/04/16 nitroglycerin 0.4 mg SUBLINGUAL Q5M PRN 09/28/17 metformin 1,000 mg PO BID 11/17/18 clopidogrel 75 mg PO DAILY 10/30/19 glimepiride 4 mg PO DAILY 10/30/19 omeprazole 40 mg capsule,delayed release 40 mg PO DAILY PRN cap 07/16/20 gabapentin 300 mg PO BID 07/18/20 isosorbide mononitrate 30 mg PO DAILY 07/18/20 atorvastatin 40 mg PO QHS #30 tab 07/20/20 metoprolol tartrate 12.5 mg PO BID tab 07/20/20 insulin asp prt-insulin aspart 15 units SC BIDCM 10/05/20 zolpidem 5 mg PO QHS PRN PRN #14 tab 01/21/21 The patient's discharge medication list was reviewed for discrepancies and discrepancies were resolved.
== END 2021-05-29 11:45 | disposition home or self-care (01) ==
LOC: ED 14:58 → PCU 15:39
PROVIDERS: Emergency Provider Emergency Medicine; PCP Family Medicine Geriatric Medicine
DX: R55 Syncope and collapse (principal); I25.10 Atherosclerotic heart disease of native coronary artery without angina pectoris; J44.9 Chronic obstructive pulmonary disease, unspecified; E78.5 Hyperlipidemia, unspecified; I10 Essential (primary) hypertension; K21.9 Gastro-esophageal reflux disease without esophagitis; I25.2 Old myocardial infarction; E11.9 Type 2 diabetes mellitus without complications; F41.9 Anxiety disorder, unspecified; F31.9 Bipolar disorder, unspecified; D50.9 Iron deficiency anemia, unspecified; Z79.899 Other long term (current) drug therapy; Z79.4 Long term (current) use of insulin; Z79.82 Long term (current) use of aspirin; Z95.1 Presence of aortocoronary bypass graft; Z79.02 Long term (current) use of antithrombotics/antiplatelets; Z87.891 Personal history of nicotine dependence; Z95.4 Presence of other heart-valve replacement
CPT/HCPCS: 70450; 71045; 80048; 82962; 84484; 85025; 87426; 93005; 96361; 96374; 99218; 99285; 99406; J7030; A4216; G0378; J2405

== ENCOUNTER → 2021-07-16 | Outpatient (CLI) | payer MEDICARE, SELFPAY ==
[2017-03-16 08:30] VITALS: BMI 29.2
== END | disposition home or self-care (01) ==
LOC: POLAB3 15:52 → LABSPEC 15:52
PROVIDERS: PCP Family Medicine Geriatric Medicine; Visit Provider Family Medicine Geriatric Medicine
DX: N39.0 Urinary tract infection, site not specified (principal)
CPT/HCPCS: 87077; 87086; 87088; 87186

== ENCOUNTER 2021-08-10 11:51 | Emergency (ER) | payer MEDICARE, SELFPAY ==
[2017-03-16 08:30] VITALS: BMI 29.2
[2021-08-10 11:52] VITALS: BP 175/87; PULSE 93; RESP 18; TEMP 36.6; O2SAT 100; BMI 27.3
[2021-08-10 12:02] VITALS: O2SAT 99
--- NOTE | 2021-08-10 12:59 | CT_ITS ---
STUDY: CT BRAIN WITHOUT CONTRAST REASON FOR EXAM: Female, 66 years old. Head injury due to a fall. Patient is on PLAVIX. RADIATION DOSAGE (If Supplied By Facility): CTDIvol = ( 47.06 ) mGy, DLP = ( 907.97 ) mGycm TECHNIQUE: Transaxial CT imaging of the brain was performed without administration of intravenous contrast material. Individualized dose optimization techniques were used for this CT. COMPARISON: Comparison is made with prior examination 05/28/2021. FINDINGS: Normal soft tissue structures. Normal calvarium. Normal size ventricles and extra-axial spaces for the patient''s age. Normal white matter tracts of the cerebral hemispheres. There are small punctate calcifications of the basal ganglia which are seen in the aging brain as a normal variant. Normal brainstem. Normal cerebellum. There is no intracranial hemorrhage. There are no findings of an acute ischemic infarction. Normal visualized paranasal sinuses. CT/Brain/Head without Contrast IMPRESSION: Normal unenhanced CT scan of the brain. Electronically Signed: Uriah Weathers MD at 13:46 EDT , Service support ,
--- NOTE | 2021-08-10 12:59 | CT_ITS ---
STUDY: CT CERVICAL SPINE WITHOUT CONTRAST REASON FOR EXAM: Female, 66 years old. Trauma RADIATION DOSAGE (If Supplied By Facility): CTDIvol = ( 18.59 ) mGy, DLP = ( 358.13 ) mGycm TECHNIQUE: High resolution transaxial imaging was performed without contrast material. Sagittal and coronal images were reconstructed. Individualized dose optimization techniques were used for this CT. COMPARISON: None FINDINGS: Normal craniovertebral junction. There are degenerative changes of the anterior atlantoaxial articulation. Normal odontoid process. There is straightening of the normal cervical lordosis. Normal vertebral bodies and posterior osseous elements. C2-3: Normal endplates. Normal disc height and morphology. Normal central canal and intervertebral neuroforamina. C3-4: Posterior spondylosis causing the central deformity of the thecal sac anteriorly. Facet joint osteoarthritis. Uncovertebral arthrosis with a mild degree of right neural foraminal stenosis. C4-5: Mild degree of disc space narrowing. Diffuse posterior disc bulge causing deformity of the thecal sac. Uncovertebral arthrosis. Mild right neural foraminal stenosis. C5-6: Mild degree of disc space narrowing. C6-7: Moderate degree of disc space narrowing and spondylosis. Uncovertebral arthrosis. Mild degree of bilateral neural foraminal stenosis. C7-T1: Normal endplates. Normal disc height and morphology. Normal central canal and intervertebral neuroforamina. Atherosclerotic plaque formation of the cavernous portions of the internal carotid arteries bilaterally. CT/Spine Cervical without Contras IMPRESSION: Multilevel degenerative changes, as described above. Electronically Signed: Uriah Weathers MD at 13:48 EDT , Service support ,
--- NOTE | 2021-08-10 13:03 | ED.VIS.FALL ---
HPI HPI - Fall History of Present Illness Chief Complaint: Fall Informant: patient Occured/Mechanism Occurred: Today Usually ambulates: Without assistance Pain/Injury Quality of Pain: Sharp and Aching Current Severity: Mild Maximum Severity: Mild Associated Symptoms Associated Symptoms: Negative for Parasthesias, Weakness, Loss of function, Inability to ambulate, Loss of consciousness and Amnesia Narrative Narrative: 66-year-old female extensive past medical history of coronary disease on Plavix for stents, bipolar, COPD, stroke, hypertension diabetes and pulmonary emboli. Patient was walking down a ramp today slipped or tripped fell landing on her back. Complaining of head pain neck pain back and chest pain. She denies any LOC. She denies any illness or pain prior to the fall. Prior similar symptoms: No Recent Illness/Hospitalization: No PFSH PFSH Medical History Anxiety and depression Atherosclerotic heart disease of [place] coronary artery without angina pectoris Biceps tendonitis on left Bipolar disorder Cancer CKD (chronic kidney disease) stage 3, GFR 30-59 ml/min Constipation COPD (chronic obstructive pulmonary disease) CVA (cerebral vascular accident) Diabetes Dysarthria Dysphagia Essential (primary) hypertension Fe deficiency anemia Former smoker GERD (gastroesophageal reflux disease) Hyperlipidemia Hypertension Left-sided weakness Myocardial infarct Nicotine dependence Nonrheumatic aortic (valve) insufficiency Pulmonary embolism Schizophrenia Sleep apnea TIA (transient ischemic attack) (12/2018) Type 2 diabetes mellitus Home Medications aspirin 81 mg PO DAILY 02/04/16 [History Last Taken 05/28/21 09:00] nitroglycerin 0.4 mg SUBLINGUAL Q5M PRN 09/28/17 [History Last Taken 03/01/21] metformin 1,000 mg PO BID 11/17/18 [History Last Taken 05/28/21 09:00] clopidogrel 75 mg PO DAILY 10/30/19 [History Last Taken 05/28/21 09:00] glimepiride 4 mg PO DAILY 10/30/19 [History Last Taken 05/28/21 09:00] omeprazole 40 mg capsule,delayed release 40 mg PO DAILY PRN cap 07/16/20 [History Last Taken 05/27/21 13:00] gabapentin 300 mg PO BID 07/18/20 [History Last Taken 05/28/21 09:00] atorvastatin 40 mg PO QHS #30 tab 07/20/20 [Rx Last Taken 05/27/21 21:00] metoprolol tartrate 12.5 mg PO BID tab 07/20/20 [Rx Last Taken 05/28/21 09:00] insulin asp prt-insulin aspart 15 units SC BIDCM 10/05/20 [History Last Taken 05/28/21 09:00] zolpidem 5 mg PO QHS PRN PRN #14 tab 01/21/21 [Rx Last Taken 05/27/21 21:00] isosorbide mononitrate 30 mg tablet,extended release 24 hr 30 mg PO DAILY #90 tab 07/29/21 [Rx Last Taken Unknown] Allergy/AdvReac Type Severity Reaction Status Date / Time Penicillins Allergy Hives Verified 08/10/21 12:01 hydrocodone bitartrate AdvReac Vomiting Verified 08/10/21 12:01 [From Vicodin] ibuprofen AdvReac Vomiting Verified 08/10/21 12:01 Family History Father Heart disease Hypertension Diabetes Hyperlipidemia Mother Diabetes Heart disease Hypertension Hyperlipidemia Brother Heart disease Age 46 Sister Diabetes Cancer Hyperlipidemia Surgical History H/O coronary artery bypass surgery (01/25/20) H/O: hysterectomy History of aortic valve replacement with bioprosthetic valve (01/25/20) History of coronary artery stent placement (03/15/17) History of coronary artery stent placement History of left heart catheterization (09/19/17) History of shoulder surgery (01/2021) Hx of cholecystectomy Social History Smoking Status: Former smoker alcohol intake: never substance use type: does not use ROS ROS ED ROS Narrative Denies recent illness. Review of Systems ROS Unobtainable: Denies due to encephalopathy Constitutional Constitutional ED: Denies fever(s) Eyes Eyes: Denies change in vision ENT ENT ED: Denies ear pain Cardiovascular Cardiovascular: Reports chest pain Respiratory/Chest Respiratory/Chest: Denies cough or dyspnea Gastrointestinal Gastrointestinal: Denies abdominal pain Genitourinary Genitourinary ED: Denies dysuria Musculoskeletal Musculoskeletal: Denies myalgias Integumentary Denies rash Neurologic Neurologic: Denies headache(s) Psychiatric Psychiatric: Denies depression Endocrine Endocrinology: Denies polyuria Hematologic/Lymphatic Hematologic/Lymphatic: Denies easy bruising Allergic/Immunologic Allergic/Immunologic ED: Denies urticaria EXAM Physical Exam Narrative Exam Narrative: Female lying in bed vital signs stable afebrile. HEENT exam pupils round reactive light his motions are intact. No facial trauma. Posterior scalp is tender mildly swelling. No laceration. Diffuse neck tenderness both spinal and otherwise. Trachea midline. Lungs clear to auscultation bilaterally. Chest wall is tender. As are posterior ribs. No bruising or subcu air prior sternotomy. Well-healed. Heart regular rate and rhythm. Abdomen soft nontender normal bowel sounds no peritoneal signs. Pelvic girdle intact. Moving all 4 extremities. Nontender no deformity. Neurologically awake and alert with no focal motor deficits. GCS of 15. Const Vital Signs: 08/10/21 11:52 08/10/21 12:02 Temperature 98 F Temperature Source Temporal Pulse Rate 93 Respiratory Rate 18 Respiratory Effort Normal Respiratory Depth Normal Respiratory Pattern Normal Blood Pressure 175/87 H Blood Pressure Mean 116 Pulse Ox 100 99 Oxygen Delivery Method Room Air Room Air Positive well nourished and well developed; Negative for obese, cachectic, contractures or unkempt General Appearance ED: well developed and NAD; Negative for unkempt, cachectic or contractures Nutritional Appearance: Negative for cachectic or obese HEENT Reports normocephalic trauma Eyes PERRL and EOMs intact bilaterally Neck no lymphadenopathy and supple General: tenderness Chest Wall inspection of chest normal and palpation of chest normal Resp normal respiratory effort, no retractions and clear to auscultation bilaterally Auscultation: Negative for rales, rhonchi or wheezes Cardio regular rate, regular rhythm, S1 normal heart sound, S2 normal heart sound and no murmurs GI non-tender, non-distended and no masses Auscultation: normoactive bowel sounds Palpation: soft and guarding Back/Spine no CVA tenderness General Back: CVA tenderness Cervical Spine: cervical spine tenderness Thoracic Spine / Upper Back: Negative for thoracic spinal tenderness Lumbar Spine / Lower Back: paraspinal muscle tenderness; Negative for lumbar spinal tenderness Extremity normal to inspection, full ROM, no calf tenderness and no pedal edema Neuro oriented x3, moves all extremities and no focal motor deficits [place] Coma Scale: document GCS findings Spontaneous Obeys Commands Oriented 15 Sensorium / Orientation: alert, oriented to place and oriented to time; Negative for confused, lethargic or stuporous Motor Exam: strength 5/5 throughout Psych mental status grossly normal Appearance: Negative for unkempt Skin Lesions: no lesions Rashes: no rashes and No rashes noted MDM MDM MDM Narrative Medical decision making narrative: 66-year-old female fell on a ramp when she was walking down a. Complaining of head neck back and chest pain. No LOC. She is on Plavix. Obtain a CAT scan of her head neck and a chest x-ray. CAT scan head neck and chest x-ray are unremarkable. No acute injuries seen on the films. Repeat exam patient is doing well. She will be discharged to home outpatient follow-up. Ice to all sore areas. Head injury instructions. Tylenol for pain. Radiography Diagnostic Testing: Clinical Impression(s) from Imaging Studies Brain CT 08/10/21 12:59 IMPRESSION: Normal unenhanced CT scan of the brain. Electronically Signed: Uriah Weathers MD at 13:46 EDT , Service support , Cervical Spine CT 08/10/21 12:59 IMPRESSION: Multilevel degenerative changes, as described above. Electronically Signed: Uriah Weathers MD at 13:48 EDT , Service support , Chest X-Ray 08/10/21 13:20 IMPRESSION: The lungs are clear. Electronically Signed: Uriah Weathers MD at 13:49 EDT , Service support , Rhythm Strip Rhythm Strip: Sinus Rhythm Rate: 84 Ectopy: None EKG Initial EKG: Attestation: I personally reviewed and interpreted this EKG as follows: Interpretation: Sinus Rhythm and No Acute Injury Pattern Comments: Normal sinus rhythm rate 84 no acute signs of MD or ischemia. Nurses ordered the EKG as a protocol the patient only had chest pain after she fell she had no cardiac sounding or exertional chest pain it was chest wall pain after she fell. Discharge Plan Triage Chief Complaint: Fall Other Complaint: Head Injury ED Provider: Alec Ross Dx/Rx/DC Orders Clinical Impression: Head injury, Neck muscle strain, Back strain Instructions: ED Head Injury (Adult), ED Neck Sprain or Strain Prescriptions: No Action omeprazole 40 mg capsule,delayed release(DR/EC) 40 mg PO DAILY PRN (Reason: Heartburn) RF: 0 aspirin 81 MG tablet,delayed release (DR/EC) 81 mg PO DAILY RF: 0 nitroglycerin 0.4 MG tablet 0.4 mg SUBLINGUAL Q5M PRN (Reason: Chest Pain) RF: 0 metformin 1,000 MG tablet 1,000 mg PO BID RF: 0 clopidogrel 75 MG tablet 75 mg PO DAILY RF: 0 glimepiride 4 MG tablet 4 mg PO DAILY RF: 0 gabapentin 300 MG capsule 300 mg PO BID RF: 0 atorvastatin 40 MG tablet 40 mg PO QHS Qty: 30 RF: 0 metoprolol tartrate 25 MG tablet 12.5 mg PO BID RF: 0 insulin asp prt-insulin aspart 100 UNITS/ML insulin pen 15 units SC BIDCM RF: 0 zolpidem 5 MG tablet 5 mg PO QHS PRN PRN (Reason: Insomnia) Qty: 14 RF: 0 isosorbide mononitrate 30 mg tablet extended release 24 hr 30 mg PO DAILY Qty: 90 RF: 3 Primary Care Provider: Charles Chavez Chi Referrals: Charles Chavez Chi, MD [Primary Care Provider] - 1 Week if not improving Activity Restrictions/Additional Instructions: Ice to all sore areas. Tylenol for pain. Follow-up with your doctor if not improving. Disposition Disposition: Home, Self Care
[2021-08-10] MEDS: HYDROcodone Bitartrate/Apap 5/325 Tablet PO (13:06)
--- NOTE | 2021-08-10 13:20 | RAD_ITS ---
STUDY: X-RAY CHEST REASON FOR EXAM: Female, 66 years old. Fall and pain TECHNIQUE: PA and lateral views of the chest. COMPARISON: Comparison is made with prior study 05/28/2021. FINDINGS: EKG electrodes are seen. The lungs are clear and expanded. There is no demonstrated pleural abnormality. Sternal cerclage wires and vascular clips are present from a prior sternotomy and coronary artery bypass graft procedure (CABG). Prior stenting. Normal mediastinum and jovan. Normal visualized pulmonary arteries. There is atherosclerotic calcification of the aortic arch with tortuosity. Normal visualized thoracic spine. Normal visualized ribs, clavicles, and shoulders. There is no demonstrated abnormality of the visualized soft tissue structures of the upper abdomen. RAD/Chest PA and Lateral IMPRESSION: The lungs are clear. Electronically Signed: Uriah Weathers MD at 13:49 EDT , Service support ,
--- NOTE | 2021-08-10 13:36 | EKG12_ITS ---
Test Reason : FALL Blood Pressure : / mmHG Vent. Rate : 084 BPM Atrial Rate : 084 BPM P-R Int : 146 ms QRS Dur : 072 ms QT Int : 404 ms P-R-T Axes : 043 015 053 degrees QTc Int : 477 ms Normal sinus rhythm Normal ECG Confirmed by HENRY BARFIELD, DAYANA ([id number]), editor dictionary TAQUERIA CHAMBERLAIN ([id number]) on 08/12/2021 8:22:46 AM Referred By: ADALI/MARY ANNE Confirmed By:DAYANA FIGUEROA MD
[2021-08-10 14:51] VITALS: BP 116/89; PULSE 85; RESP 20; O2SAT 96
[2021-08-10 14:57] VITALS: BP 116/89; PULSE 90; RESP 18; TEMP 36.9; O2SAT 99
== END 2021-08-10 15:00 | disposition home or self-care (01) ==
PROVIDERS: Emergency Provider Emergency Medicine; PCP Family Medicine Geriatric Medicine
DX: S16.1XXA Strain of muscle, fascia and tendon at neck level, initial encounter (principal); S39.012A Strain of muscle, fascia and tendon of lower back, initial encounter; S09.90XA Unspecified injury of head, initial encounter; W01.0XXA Fall on same level from slipping, tripping and stumbling without subsequent striking against object, initial encounter; Y93.01 Activity, walking, marching and hiking; Y92.9 Unspecified place or not applicable; E11.22 Type 2 diabetes mellitus with diabetic chronic kidney disease; E78.5 Hyperlipidemia, unspecified; F20.9 Schizophrenia, unspecified; F31.9 Bipolar disorder, unspecified; F41.9 Anxiety disorder, unspecified; G47.30 Sleep apnea, unspecified; I12.9 Hypertensive chronic kidney disease with stage 1 through stage 4 chronic kidney disease, or unspecified chronic kidney disease; N18.30 Chronic kidney disease, stage 3 unspecified; I25.10 Atherosclerotic heart disease of native coronary artery without angina pectoris; I35.1 Nonrheumatic aortic (valve) insufficiency; J44.9 Chronic obstructive pulmonary disease, unspecified; I25.2 Old myocardial infarction; K21.9 Gastro-esophageal reflux disease without esophagitis; Z86.73 Personal history of transient ischemic attack (TIA), and cerebral infarction without residual deficits; Z86.711 Personal history of pulmonary embolism; Z95.5 Presence of coronary angioplasty implant and graft; Z95.2 Presence of prosthetic heart valve; Z79.4 Long term (current) use of insulin; Z79.02 Long term (current) use of antithrombotics/antiplatelets; Z79.82 Long term (current) use of aspirin; Z87.891 Personal history of nicotine dependence; Z79.899 Other long term (current) drug therapy
CPT/HCPCS: 70450; 71046; 72125; 93005; 99283

== ENCOUNTER 2021-11-26 13:39 | Outpatient (CLI) | payer MEDICARE, SELFPAY ==
[2017-03-16 08:30] VITALS: BMI 29.2
[2021-11-26 15:38] LABS: Absolute Lymphocyte Count 2.69 X10^3/uL (0.83-4.51); Absolute Neutrophil Count 4.1 X10^3/uL (2.0-7.7); Basophil# 0.06 X10^3/uL; Basophil% 0.8 % (0-1); Eosinophil# 0.16 X10^3/uL; Eosinophils% 2.1 % (0-5); Hematocrit 37.3 % (37-47); Hemoglobin 12.6 g/dL (12.0-15.0); Lymphocyte # 2.69 X10^3/ul (0.83-4.51); Mean Corp Hgb Conc 33.8 g/dL (32-36); Mean Corpuscular Hgb 31.4 pg (27.0-32.0); Monocyte# 0.49 X10^3/uL; Monocyte% 6.6 % (0-10); NRBC Flagged by Analyzer 0 % (0-5); Neutrophil # 4.05 X10^3/uL (2.7-7.7); Neutrophil % 54.2 % (47-70); Platelet Count 220 K/mm3 (150-450); RBC Distribution Width CV 12.2 % (11.6-14.6); RBC Distribution Width SD 41.7 fl (35.1-43.9); Red Blood Count 4.01 M/mm3 (4.2-5.4); White Blood Count 7.5 K/mm3 (4.4-11.0)
[2021-11-26 16:04] LABS: ALB/GLOB Ratio 1.1 RATIO (0.9-2.4); AST(SGOT) 26 U/L (15-37); Alanine Aminotransfer ALT/SGPT 34 U/L (13-56); Albumin, Serum 3.8 g/dL (3.2-5.0); Alkaline Phosphatase 67 U/L (45-117); Anion Gap 5 (5-15); BUN 13 mg/dL (7-18); BUN/Creat Ratio 12.5 RATIO (10-20); Calcium,Total 9.1 mg/dL (8.5-10.1); Chloride 102 mmol/L (98-107); Creatinine, Serum 1.04 mg/dL (0.55-1.02); EST Glomerular Filtration Rate 56 mL/min (>60); Est Glom Filt Rate - Afr Amer 68 mL/min (>60); Globulin 3.4 g/dL (2.2-4.2); Glucose 332 mg/dL (74-106); Protein, Total 7.2 g/dL (6.4-8.2); Sodium Level 135 mmol/L (136-145); Thyroid Stim Hormone (TSH) 2.46 uIU/mL (0.358-3.74)
== END 2021-11-26 23:59 | disposition home or self-care (01) ==
PROVIDERS: PCP Family Medicine Geriatric Medicine; Visit Provider Family Medicine Geriatric Medicine
DX: E11.65 Type 2 diabetes mellitus with hyperglycemia (principal); E55.9 Vitamin D deficiency, unspecified; I10 Essential (primary) hypertension
CPT/HCPCS: 36415; 80053; 82306; 84443; 85025

== ENCOUNTER 2022-12-13 18:04 | Emergency (ER) | payer MEDICARE, SELFPAY ==
[2017-03-16 08:30] VITALS: BMI 29.2
[2022-12-13 18:04] VITALS: BP 161/117; PULSE 105; RESP 14; TEMP 36.6; O2SAT 100; BMI 23.3
--- NOTE | 2022-12-13 19:45 | EKG12_ITS ---
Test Reason : DYSRHYTHMIA Blood Pressure : / mmHG Vent. Rate : 082 BPM Atrial Rate : 082 BPM P-R Int : 146 ms QRS Dur : 078 ms QT Int : 406 ms P-R-T Axes : 059 052 063 degrees QTc Int : 474 ms Sinus rhythm with Premature atrial complexes Otherwise normal ECG Confirmed by HENRY BARFIELD, DAYANA ([id number]), editor map TAQUERIA CHAMBERLAIN ([id number]) on 12/15/2022 10:12:18 AM Referred By: CE Confirmed By:DAYANA FIGUEROA MD
--- NOTE | 2022-12-13 19:46 | EX.ED.DYSGE1 ---
HPI History of Present Illness Chief Complaint: Nausea/Vomiting Informant: patient Onset/Context/Timing Onset: Days (2 days) Context: Gradual Onset Narrative Narrative: Patient presents secondary to vomiting for the past 2 days. She states anytime she tries to eat or drink anything she vomits. She has not been able to keep her medication down. She states otherwise she really does not feel ill. She is had no diarrhea. She has mild epigastric pain. [facility] Medical History Anxiety and depression Atherosclerotic heart disease of [place] coronary artery without angina pectoris Biceps tendonitis on left Bipolar disorder Cancer CKD (chronic kidney disease) stage 3, GFR 30-59 ml/min Constipation COPD (chronic obstructive pulmonary disease) CVA (cerebral vascular accident) Diabetes Dysarthria Dysphagia Essential (primary) hypertension Fe deficiency anemia Former smoker GERD (gastroesophageal reflux disease) Hyperlipidemia Hypertension Left-sided weakness Myocardial infarct Nicotine dependence Nonrheumatic aortic (valve) insufficiency Pulmonary embolism Schizophrenia Sleep apnea TIA (transient ischemic attack) (12/2018) Type 2 diabetes mellitus Home Medications aspirin 81 mg tablet,delayed release 81 mg PO DAILY HEART HEALTH 02/04/16 [History Last Taken 05/28/21 09:00] nitroglycerin 0.4 mg sublingual tablet 0.4 mg SUBLINGUAL Q5M PRN Chest Pain 09/28/17 [History Last Taken 03/01/21] metformin 1,000 mg tablet 1,000 mg PO BID diabetes 11/17/18 [History Last Taken 05/28/21 09:00] clopidogrel 75 mg tablet 75 mg PO DAILY anti platelet 10/30/19 [History Last Taken 05/28/21 09:00] glimepiride 4 mg tablet 4 mg PO DAILY diabetes 10/30/19 [History Last Taken 05/28/21 09:00] omeprazole 40 mg capsule,delayed release 40 mg PO DAILY PRN Heartburn 07/16/20 [History Last Taken 05/27/21 13:00] gabapentin 300 mg capsule 300 mg PO BID nerve pain 07/18/20 [History Last Taken 05/28/21 09:00] atorvastatin 40 mg tablet 40 mg PO QHS ##30 07/20/20 [Rx Last Taken 05/27/21 21:00] metoprolol tartrate 25 mg tablet 12.5 mg PO BID 07/20/20 [Rx Last Taken 05/28/21 09:00] insulin aspar prot-insulin aspart 100 unit/mL (70-30) subcutaneous pen 15 units subcut BIDCM diabetes 10/05/20 [History Last Taken 05/28/21 09:00] zolpidem 5 mg tablet 5 mg PO QHS PRN PRN Insomnia #14 TABLETS 01/21/21 [Rx Last Taken 05/27/21 21:00] isosorbide mononitrate 30 mg tablet,extended release 24 hr 30 mg PO DAILY heart #90 tabs 07/29/21 [Rx Last Taken Unknown] ondansetron 4 mg disintegrating tablet 4 mg PO Q8H PRN PRN Nausea #10 tabs 12/13/22 [Rx Last Taken Unknown] Allergy/AdvReac Type Severity Reaction Status Date / Time Penicillins Allergy Hives Verified 12/13/22 18:05 hydrocodone bitartrate AdvReac Vomiting Verified 12/13/22 18:05 [From Vicodin] ibuprofen AdvReac Vomiting Verified 12/13/22 18:05 Family History Father Heart disease Hypertension Diabetes Hyperlipidemia Mother Diabetes Heart disease Hypertension Hyperlipidemia Brother Heart disease Age 46 Sister Diabetes Cancer Hyperlipidemia Surgical History H/O coronary artery bypass surgery (01/25/20) H/O: hysterectomy History of aortic valve replacement with bioprosthetic valve (01/25/20) History of coronary artery stent placement (03/15/17) History of coronary artery stent placement History of left heart catheterization (09/19/17) History of shoulder surgery (01/2021) Hx of cholecystectomy Social History Smoking Status: Former smoker alcohol intake: never substance use type: does not use ROS ROS ED Constitutional Constitutional ED: Denies chills or fever(s) Eyes Eyes: Denies change in vision or discharge from eye(s) ENT ENT ED: Denies discharge from eye(s), rhinorrhea or sore throat Cardiovascular Cardiovascular: Denies chest pain or palpitations Respiratory/Chest Respiratory/Chest: Denies cough or dyspnea Gastrointestinal Gastrointestinal: Reports abdominal pain, nausea and vomiting; Denies diarrhea Genitourinary Genitourinary ED: Denies dysuria Musculoskeletal Musculoskeletal: Denies back pain or extremity pain Integumentary Denies Abrasions or rash Neurologic Neurologic: Denies headache(s) or weakness Psychiatric Psychiatric: Denies anxiety or depression Allergic/Immunologic Allergic/Immunologic ED: Denies lip swelling or urticaria EXAM Physical Exam Const Vital Signs: 12/13/22 18:04 12/13/22 19:57 Temperature 97.9 F Temperature Source Temporal Pulse Rate 105 H Respiratory Rate 14 Blood Pressure 161/117 H 137/80 H Blood Pressure Mean 131 99 Pulse Ox 100 Oxygen Delivery Method Room Air Positive well nourished and well developed General Appearance ED: well developed HEENT Reports normocephalic and head/scalp atraumatic Eyes PERRL and EOMs intact bilaterally Neck supple Chest Wall inspection of chest normal and palpation of chest normal Resp normal respiratory effort and clear to auscultation bilaterally Cardio regular rate and regular rhythm GI GI Narrative: Hypoactive bowel sounds. Mild epigastric tenderness. No guarding or rebound. Palpation: soft Extremity normal to inspection Neuro oriented x3 and no sensory deficits noted Sensorium / Orientation: alert Motor Exam: strength 5/5 throughout Psych mental status grossly normal Skin no rashes or lesions noted MDM MDM MDM Narrative Medical decision making narrative: Patient given Zofran and IV fluids. Lab work obtained to evaluate for leukocytosis, anemia, electrolyte derangement. Differential diagnosis includes viral gastroenteritis, pancreatitis, atypical chest pain Lab Data Attestation: I reviewed the patient's lab results. Labs: Laboratory Results - last 24 hr 12/13/22 12/13/22 12/13/22 19:30 19:30 21:12 WBC 6.1 RBC 4.29 Hgb 13.4 Hct 38.6 MCV 90.0 MCH 31.2 MCHC 34.7 RDW Std Deviation 39.2 RDW Coeff of [place] 11.9 Plt Count 197 MPV 11.5 Immature Gran % (Auto) 0.700 Neut % (Auto) 58.7 Lymph % (Auto) 26.2 Wilkin % (Auto) 11.6 H Eos % (Auto) 2.5 Baso % (Auto) 0.3 Absolute Neuts (auto) 3.6 Absolute Lymphs (auto) 1.60 Nucleated RBC % 0 Sodium 129 L Potassium 4.0 Chloride 92 L Carbon Dioxide 27.0 Anion Gap 10 BUN 36 H Creatinine 1.34 H Estim Creat Clear Calc 32.78 Est GFR (MDRD) Af Amer 50 L Est GFR (MDRD) Non-Af 42 L BUN/Creatinine Ratio 26.9 H Glucose 506 H* Calcium 9.3 Total Bilirubin 0.40 Direct Bilirubin 0.12 AST 18 ALT 29 Alkaline Phosphatase 61 Total Protein 7.8 Albumin 4.1 Globulin 3.7 Lipase 167 POC Glucose 372 H EKG Initial EKG: Attestation: I personally reviewed and interpreted this EKG as follows: Interpretation: Sinus Rhythm (Sinus at 82 with no acute ischemia.) Treatment and Re-Evaluation :: CBC is unremarkable. Chemistry studies significant for a glucose of 506 with a pseudohyponatremia of 129. BUN is 36 and creatinine is 1.34. LFTs and lipase are unremarkable. Nursing staff now tells me that the patient has been out of her insulin the last 2 days but she can pick it up at the pharmacy tomorrow. Patient had a blood sugar reading of 372 after 1 liter of IV fluids. She was given 8 units of subcu insulin and repeat sugar at this time is 295. Patient be given Zofran for home. She has been able to tolerate p.o. here. Discharge Plan Triage Chief Complaint: Nausea/Vomiting ED Provider: Sujata Cabrales Dx/Rx/DC Orders Clinical Impression: Vomiting, Hyperglycemia Instructions: ED Diabetic Hyperglycemia, ED Vomiting (Adult) Prescriptions: New ondansetron 4 mg tablet,disintegrating 4 mg PO Q8H PRN PRN (Reason: Nausea) Qty: 10 0RF No Action omeprazole 40 mg capsule,delayed release(DR/EC) 40 mg PO DAILY PRN (Reason: Heartburn) Label Comments: 40 mg p.o. twice daily for 1 week starting 07/16/2020 aspirin 81 MG tablet,delayed release (DR/EC) 81 mg PO DAILY Label Comments: Heart [facility] nitroglycerin 0.4 MG tablet 0.4 mg SUBLINGUAL Q5M PRN (Reason: Chest Pain) metformin 1,000 MG tablet 1,000 mg PO BID Label Comments: take 1 tablet twice daily clopidogrel 75 MG tablet 75 mg PO DAILY Label Comments: will stop 5 days prior glimepiride 4 MG tablet 4 mg PO DAILY gabapentin 300 MG capsule 300 mg PO BID atorvastatin 40 MG tablet 40 mg PO QHS Qty: 30 0RF metoprolol tartrate 25 MG tablet 12.5 mg PO BID 0RF insulin asp prt-insulin aspart 100 UNITS/ML insulin pen 15 units SC BIDCM zolpidem 5 MG tablet 5 mg PO QHS PRN PRN (Reason: Insomnia) Qty: 14 0RF isosorbide mononitrate 30 mg tablet extended release 24 hr 30 mg PO DAILY Qty: 90 3RF Primary Care Provider: Nilson Jeffrey Referrals: Charles Chavez Chi, MD [Med Staff - Active Staff] - 1 Week Disposition Disposition: Home, Self Care
[2022-12-13] MEDS: 0.9% Normal Saline 1,000 ML 1000 ML IV (19:51)
[2022-12-13] MEDS: Ondansetron 4 MG/2 ML Vial IV (19:51)
[2022-12-13 19:57] VITALS: BP 137/80
[2022-12-13 20:01] LABS: Absolute Neutrophil Count 3.6 X10^3/uL (2.0-7.7); Basophil# 0.02 X10^3/uL; Basophil% 0.3 % (0-1); Eosinophil# 0.15 X10^3/uL; Eosinophils% 2.5 % (0-5); Hematocrit 38.6 % (37-47); Hemoglobin 13.4 g/dL (12.0-15.0); Lymphocyte % 26.2 % (19-41); Mean Corp Hgb Conc 34.7 g/dL (32-36); Mean Corpuscular Hgb 31.2 pg (27.0-32.0); Mean Platelet Vol. 11.5 fl (6.2-12.0); Monocyte# 0.71 X10^3/uL; Monocyte% 11.6 % (0-10); NRBC Flagged by Analyzer 0 % (0-5); Neutrophil # 3.59 X10^3/uL (2.7-7.7); Neutrophil % 58.7 % (47-70); Platelet Count 197 K/mm3 (150-450); RBC Distribution Width CV 11.9 % (11.6-14.6); RBC Distribution Width SD 39.2 fl (35.1-43.9); Red Blood Count 4.29 M/mm3 (4.2-5.4); White Blood Count 6.1 K/mm3 (4.4-11.0)
[2022-12-13 20:26] LABS: AST(SGOT) 18 U/L (15-37); Alanine Aminotransfer ALT/SGPT 29 U/L (13-56); Albumin, Serum 4.1 g/dL (3.2-5.0); Alkaline Phosphatase 61 U/L (45-117); Anion Gap 10 (5-15); BUN 36 mg/dL (7-18); BUN/Creat Ratio 26.9 RATIO (10-20); Bilirubin, Direct 0.12 mg/dL (0.00-0.30); Calcium,Total 9.3 mg/dL (8.5-10.1); Chloride 92 mmol/L (98-107); Creatinine, Serum 1.34 mg/dL (0.55-1.02); EST Glomerular Filtration Rate 42 mL/min (>60); Est Glom Filt Rate - Afr Amer 50 mL/min (>60); Estimated Creatinine Clearance 32.78 ml/min; Globulin 3.7 g/dL (2.2-4.2); Glucose 506 mg/dL (74-106); Lipase 167 U/L (73-393); Protein, Total 7.8 g/dL (6.4-8.2); Sodium Level 129 mmol/L (136-145)
[2022-12-13] MEDS: 0.9% Normal Saline 1,000 ML 150 ML IV (21:17)
[2022-12-13] MEDS: Insulin Lispro 100 UNIT/ML INSULN.PEN 8 UNIT SC (21:20)
[2022-12-13 21:31] LABS: Bedside Glucose 372 mg/dL (74-106)
[2022-12-13 22:50] LABS: Bedside Glucose 295 mg/dL (74-106)
[2022-12-13 22:52] VITALS: BP 122/61; PULSE 69; RESP 15; O2SAT 99
== END 2022-12-13 22:52 | disposition home or self-care (01) ==
PROVIDERS: Emergency Provider Emergency Medicine; PCP Student in an Organized Health Care Education/Training Program; Visit Provider Emergency Medicine
DX: R11.2 Nausea with vomiting, unspecified (principal); E11.65 Type 2 diabetes mellitus with hyperglycemia; E11.22 Type 2 diabetes mellitus with diabetic chronic kidney disease; N18.30 Chronic kidney disease, stage 3 unspecified; E78.5 Hyperlipidemia, unspecified; I25.10 Atherosclerotic heart disease of native coronary artery without angina pectoris; I12.9 Hypertensive chronic kidney disease with stage 1 through stage 4 chronic kidney disease, or unspecified chronic kidney disease; Z87.891 Personal history of nicotine dependence; Z79.899 Other long term (current) drug therapy; Z79.82 Long term (current) use of aspirin; Z86.711 Personal history of pulmonary embolism; Z86.73 Personal history of transient ischemic attack (TIA), and cerebral infarction without residual deficits; I25.2 Old myocardial infarction; Z95.5 Presence of coronary angioplasty implant and graft
CPT/HCPCS: 80048; 80076; 82962; 83690; 85025; 93005; 96365; 96375; 99283; J7030; A4216; J2405

== ENCOUNTER 2023-01-22 15:18 | Emergency (ER) | payer MEDICARE, SELFPAY ==
[2017-03-16 08:30] VITALS: BMI 29.2
[2023-01-22 15:19] VITALS: BP 160/82; PULSE 100; RESP 18; TEMP 36.4; O2SAT 100; BMI 22.4
--- NOTE | 2023-01-22 15:24 | EDS_ITS ---
HPI History of Present Illness Chief Complaint: Chest Pain Narrative Narrative: 67-year-old female here with chest pain. States has been the last 2 to 3 days. Notes shortness of breath as well. States she is unable to take her medicine this morning secondary to nausea and vomiting. Denies any abdominal pain. Denies any recent travel. Denies any recent antibiotic use. Last bowel movement was 2 days ago. She denies any melena or hematochezia. She denies any fever or recent sick contacts. The patient denies recent surgery in the last 4 weeks or immobilization in the last 3 days, denies previous diagnosis of PE, hemoptysis, unilateral leg swelling or malignancy with treatment the last 6 months. No estrogen use noted. Patient denies sudden onset of pain, no tearing sensation, no migratory symptoms, no new numbness, weakness or loss of sensation. Patient denies family history or personal history of Marfan syndrome or Donna-Danlos [facility] Medical History Anxiety and depression Atherosclerotic heart disease of [place] coronary artery without angina pectoris Biceps tendonitis on left Bipolar disorder Cancer CKD (chronic kidney disease) stage 3, GFR 30-59 ml/min Constipation COPD (chronic obstructive pulmonary disease) CVA (cerebral vascular accident) Diabetes Dysarthria Dysphagia Essential (primary) hypertension Fe deficiency anemia Former smoker GERD (gastroesophageal reflux disease) Hyperlipidemia Hypertension Left-sided weakness Myocardial infarct Nicotine dependence Nonrheumatic aortic (valve) insufficiency Pulmonary embolism Schizophrenia Sleep apnea TIA (transient ischemic attack) (12/2018) Type 2 diabetes mellitus Home Medications aspirin 81 mg tablet,delayed release 81 mg PO DAILY HEART HEALTH 02/04/16 [History Last Taken 05/28/21 09:00] nitroglycerin 0.4 mg sublingual tablet 0.4 mg SUBLINGUAL Q5M PRN Chest Pain 09/28/17 [History Last Taken 03/01/21] metformin 1,000 mg tablet 1,000 mg PO BID diabetes 11/17/18 [History Last Taken 05/28/21 09:00] clopidogrel 75 mg tablet 75 mg PO DAILY anti platelet 10/30/19 [History Last Taken 05/28/21 09:00] glimepiride 4 mg tablet 4 mg PO DAILY diabetes 10/30/19 [History Last Taken 05/28/21 09:00] omeprazole 40 mg capsule,delayed release 40 mg PO DAILY PRN Heartburn 07/16/20 [History Last Taken 05/27/21 13:00] gabapentin 300 mg capsule 300 mg PO BID nerve pain 07/18/20 [History Last Taken 05/28/21 09:00] atorvastatin 40 mg tablet 40 mg PO QHS ##30 07/20/20 [Rx Last Taken 05/27/21 21:00] metoprolol tartrate 25 mg tablet 12.5 mg PO BID 07/20/20 [Rx Last Taken 05/28/21 09:00] insulin aspar prot-insulin aspart 100 unit/mL (70-30) subcutaneous pen 15 units subcut BIDCM diabetes 10/05/20 [History Last Taken 05/28/21 09:00] zolpidem 5 mg tablet 5 mg PO QHS PRN PRN Insomnia #14 TABLETS 01/21/21 [Rx Last Taken 05/27/21 21:00] isosorbide mononitrate 30 mg tablet,extended release 24 hr 30 mg PO DAILY heart #90 tabs 07/29/21 [Rx Last Taken Unknown] ondansetron 4 mg disintegrating tablet 4 mg PO Q8H PRN PRN Nausea #10 tabs 12/13/22 [Rx Last Taken Unknown] ondansetron 4 mg disintegrating tablet 4 mg PO Q8H PRN PRN Nausea #10 tabs 01/22/23 [Rx Last Taken Unknown] Allergy/AdvReac Type Severity Reaction Status Date / Time Penicillins Allergy Hives Verified 01/22/23 15:21 hydrocodone bitartrate AdvReac Vomiting Verified 01/22/23 15:21 [From Vicodin] ibuprofen AdvReac Vomiting Verified 01/22/23 15:21 Family History Father Heart disease Hypertension Diabetes Hyperlipidemia Mother Diabetes Heart disease Hypertension Hyperlipidemia Brother Heart disease Age 46 Sister Diabetes Cancer Hyperlipidemia Surgical History H/O coronary artery bypass surgery (01/25/20) H/O: hysterectomy History of aortic valve replacement with bioprosthetic valve (01/25/20) History of coronary artery stent placement (03/15/17) History of coronary artery stent placement History of left heart catheterization (09/19/17) History of shoulder surgery (01/2021) Hx of cholecystectomy Social History Smoking Status: Former smoker alcohol intake: never substance use type: does not use ROS ROS ED ROS Narrative Constitutional: Denies fever HEENT: Denies sore throat Neck: Denies neck pain Cardiovascular: Endorses chest pain Respiratory: Denies shortness of breath GI: Endorses nausea vomiting diarrhea : Denies changes in urinary habits Musculoskeletal: Denies muscle or joint pain Neurologic: Denies numbness weakness or loss of sensation Skin denies rash EXAM Physical Exam Narrative Exam Narrative: Nursing triage notes reviewed, Vital signs reviewed Constitutional: please see mdm HENT: MMM Eyes: Pupils equal round and reactive to light, Extraocular muscles intact Neck: No stridor, no JVD, full neck ROM Lungs: Clear to auscultation, No wheezing or rales. No increased work of breathing, no conversational dyspnea, no accessory muscle use, no nasal flaring. No respiratory distress noted Heart: Regular rate and rhythm, No murmurs, No rubs and No gallops, 2+ distal pulses (radial, femoral, posterior tibial) in all extremities Abdomen: Soft, there is no tenderness, rigidity, rebound or guarding, no obvious peritoneal signs, no palpable pulsatile abdominal masses, no auscultated abdominal bruit : No CVAT Extremities: No edema Neuro: No focal neurological deficits, cranial nerves II through XII intact, 5/5 strength in all extremities. Intact sensation to light touch in all extremities, 2+ reflexes bilateral patella dens. Normal gait. No ataxia. Skin: No rash or lesions noted Const Vital Signs: 01/22/23 15:19 01/22/23 15:26 01/22/23 15:32 Temperature 97.6 F L Temperature Source Temporal Pulse Rate 100 Respiratory Rate 18 Respiratory Effort Short of Breath Blood Pressure 160/82 H Blood Pressure Mean 108 Pulse Ox 100 Oxygen Delivery Method Room Air Room Air 01/22/23 16:28 01/22/23 17:00 Temperature Temperature Source Pulse Rate 78 78 Respiratory Rate 16 16 Respiratory Effort Blood Pressure 140/73 H 146/61 H Blood Pressure Mean 95 89 Pulse Ox 100 98 Oxygen Delivery Method Room Air Room Air Heart Score History: Moderately Suspicious ECG: Nonspecific Repolarization Age: >/= 65 years Risk Factors: >/= 3 Risk Factors or History of CAD Troponin: </= Normal Limit Score: 6 MDM MDM MDM Narrative Medical decision making narrative: Chief Complaint: Chest pain, nausea vomiting diarrhea External records reviewed: Ejection fraction 55 to 60% MDM The patient was initially hypertensive otherwise hemodynamically stable and afebrile nontoxic-appearing. I obtained a broad lab and imaging work-up to further elucidate etiology of patient complaint. Initial EKG, troponin were negative for myocardial ischemia. There is no signs of systemic inflammation or severe anemia. Patient's BMP was significant for pseudohyponatremia, severe hyperglycemia. There is no anion gap or decreased bicarb to suggest DKA. Did check an acetone level. Give the patient 1 L of fluids, 2 antiemetics and insulin to improve her symptoms. I gave 10 units of insulin with improvement in blood sugar. On reassessment patient states symptoms completely resolved. Given the patient's advanced age, elevated heart score (6) I did recommend admission to decrease her risk of MACE however patient refused. She expressed understanding and had decision-making capacity. She agreed to follow-up with her primary care physician and cardiology as an outpatient next available appointment. She assured me she had supplies, prescriptions at home to take care of her diabetes sufficiently. PE less likely given low risk Wells score. Aortic dissection is thought to be less likely given no sudden ripping or tearing pain, migratory pain, palpable pulse inequalities, no focal neurologic deficits concurrent with chest pain. Chance of dissection less than 10/1999. Pericarditis less likely given no pathognomonic EKG changes (no diffuse ST elevations, NH depressions). GI etiology (i.e. Boerhaave syndrome) less likely given no chest or neck crepitus. Factors affecting care: History of aortic valve replacement, CKD, CAD Social determinants of health: Former smoker History obtained from others: The patient significant other Shared decision making: I will have a discussion with the patient and or visitors regarding risk/benefits of further testing or admission. They will be made aware of of the risk/benefits inherent in this decision they will be given the opportunity to voice understanding. Consults: None Lab Data Attestation: I reviewed the patient's lab results. Lab results narrative: CBC without leukocytosis, severe anemia, no thrombocytopenia. BMP with pseudohyponatremia, hyperglycemia, no anion gap or decreased bicarb to suggest DKA Troponin is negative, no evidence of myocardial ischemia normal VBG without acidosis or significantly low bicarb to suggest DKA Labs: Laboratory Results - last 24 hr 01/22/23 01/22/23 01/22/23 15:30 15:30 17:55 WBC 7.1 RBC 4.23 Hgb 13.0 Hct 38.9 MCV 92.0 MCH 30.7 MCHC 33.4 RDW Std Deviation 41.7 RDW Coeff of [place] 12.5 Plt Count 164 MPV 12.0 Immature Gran % (Auto) 0.400 Neut % (Auto) 56.5 Lymph % (Auto) 30.0 Person % (Auto) 10.8 H Eos % (Auto) 1.7 Baso % (Auto) 0.6 Absolute Neuts (auto) 4.0 Absolute Lymphs (auto) 2.14 Nucleated RBC % 0 Sodium 129 L Potassium 4.8 Chloride 99 Carbon Dioxide 24.0 Anion Gap 6 BUN 25 H Creatinine 1.35 H Estim Creat Clear Calc 33.96 Est GFR (MDRD) Af Amer 50 L Est GFR (MDRD) Non-Af 41 L BUN/Creatinine Ratio 18.5 Glucose 537 H* Calcium 10.0 Troponin I High Sens 10 Acetone Level NEGATIVE ABG Data ABG results: ABG 01/22/23 16:59 Specimen Type [place] VBG pH 7.48 H VBG pO2 45 H VBG HCO3 19 L VBG Total CO2 20 L VBG O2 Sat (Calc) 85 H VBG Base Excess -4 L POC Mix VBG pCO2 Pt Tmp 25.9 L Radiography Chest X-Ray - ED: Read by ED Physician Diagnostic Testing: Clinical Impression(s) from Imaging Studies Chest X-Ray 01/22/23 15:40 IMPRESSION: No radiographic evidence of acute cardiopulmonary disease. Electronically Signed: Prakash Alaniz DO at 16:13 EDT Reading Location ID and State: [facility] / [place] Tel [phone], Service support , I have personally reviewed the patient's chest x-ray. Chest x-ray is unremarkable for pulmonary edema, pneumothorax, pneumonia or focal cardiopulmonary abnormality. EKG Initial EKG: Comments: EKG with normal sinus rhythm, normal axis, normal intervals, no STEMI Discharge Plan Triage Chief Complaint: Chest Pain ED Provider: Stevo Shore Dx/Rx/DC Orders Clinical Impression: Chest pain, Nausea & vomiting, Acute hyponatremia, Acute hyperglycemia Instructions: ED Diabetic Hyperglycemia Prescriptions: New ondansetron 4 mg tablet,disintegrating 4 mg PO Q8H PRN PRN (Reason: Nausea) Qty: 10 0RF No Action omeprazole 40 mg capsule,delayed release(DR/EC) 40 mg PO DAILY PRN (Reason: Heartburn) Label Comments: 40 mg p.o. twice daily for 1 week starting 07/16/2020 aspirin 81 MG tablet,delayed release (DR/EC) 81 mg PO DAILY Label Comments: Heart [facility] nitroglycerin 0.4 MG tablet 0.4 mg SUBLINGUAL Q5M PRN (Reason: Chest Pain) metformin 1,000 MG tablet 1,000 mg PO BID Label Comments: take 1 tablet twice daily clopidogrel 75 MG tablet 75 mg PO DAILY Label Comments: will stop 5 days prior glimepiride 4 MG tablet 4 mg PO DAILY gabapentin 300 MG capsule 300 mg PO BID atorvastatin 40 MG tablet 40 mg PO QHS Qty: 30 0RF metoprolol tartrate 25 MG tablet 12.5 mg PO BID 0RF insulin asp prt-insulin aspart 100 UNITS/ML insulin pen 15 units SC BIDCM zolpidem 5 MG tablet 5 mg PO QHS PRN PRN (Reason: Insomnia) Qty: 14 0RF ondansetron 4 mg tablet,disintegrating 4 mg PO Q8H PRN PRN (Reason: Nausea) Qty: 10 0RF isosorbide mononitrate 30 mg tablet extended release 24 hr 30 mg PO DAILY Qty: 90 3RF Primary Care Provider: Nilson Jeffrey Referrals: Nilson Jeffrey DO [Primary Care Provider] - Activity Restrictions/Additional Instructions: Thank you for trusting us with your care today! Please take Zofran as needed for nausea vomiting control. Please take your diabetes medicines as prescribed to control your blood sugars Please take Tylenol (2 pills, 650 mg), ibuprofen (2 pills, 400 mg) every 6 hours as needed for pain and fever control. Please return to the emergency department if your symptoms change or worsen. Please follow with your primary care physician for further outpatient evaluation and management. Disposition Disposition: Home, Self Care
--- NOTE | 2023-01-22 15:28 | EKG12_ITS ---
Test Reason : CP Blood Pressure : / mmHG Vent. Rate : 094 BPM Atrial Rate : 094 BPM P-R Int : 136 ms QRS Dur : 068 ms QT Int : 364 ms P-R-T Axes : 064 062 029 degrees QTc Int : 455 ms Normal sinus rhythm Nonspecific ST abnormality Abnormal ECG Confirmed by JUAN CHAVEZ ([id number]), web content editor TAQUERIA CHAMBERLAIN ([id number]) on 01/25/2023 7:02:15 AM Referred By: SHERIN Confirmed By:JUAN CHAVEZ
[2023-01-22] MEDS: Ondansetron 4 MG/2 ML Vial IV (15:34)
[2023-01-22] MEDS: Aspirin 81 MG TAB.CHEW 324 MG PO (15:34)
--- NOTE | 2023-01-22 15:40 | RAD_ITS ---
INDICATION: chest pain EXAMINATION/TECHNIQUE: X-RAY - XR Chest 1 View COMPARISON: August 10, 2021. FINDINGS: LINES/DEVICES: Stable sternotomy wires. LUNGS: No consolidation, edema or effusion. No pneumothorax. MEDIASTINUM AND CARDIOVASCULAR STRUCTURES: Cardiac silhouette not enlarged. Central airways and mediastinal contour are unremarkable. BONES AND SOFT TISSUES: Unremarkable. RAD/Chest 1 View (Portable) IMPRESSION: No radiographic evidence of acute cardiopulmonary disease. Electronically Signed: Prakash Alaniz DO at 16:13 EDT ,
[2023-01-22 15:43] LABS: Absolute Lymphocyte Count 2.14 X10^3/uL (0.83-4.51); Basophil# 0.04 X10^3/uL; Basophil% 0.6 % (0-1); Eosinophil# 0.12 X10^3/uL; Eosinophils% 1.7 % (0-5); Hematocrit 38.9 % (37-47); Lymphocyte # 2.14 X10^3/ul (0.83-4.51); Mean Corp Hgb Conc 33.4 g/dL (32-36); Mean Corpuscular Hgb 30.7 pg (27.0-32.0); Monocyte# 0.77 X10^3/uL; Monocyte% 10.8 % (0-10); NRBC Flagged by Analyzer 0 % (0-5); Neutrophil # 4.03 X10^3/uL (2.7-7.7); Neutrophil % 56.5 % (47-70); Platelet Count 164 K/mm3 (150-450); RBC Distribution Width CV 12.5 % (11.6-14.6); RBC Distribution Width SD 41.7 fl (35.1-43.9); Red Blood Count 4.23 M/mm3 (4.2-5.4); White Blood Count 7.1 K/mm3 (4.4-11.0)
[2023-01-22 16:01] LABS: Anion Gap 6 (5-15); BUN 25 mg/dL (7-18); BUN/Creat Ratio 18.5 RATIO (10-20); Chloride 99 mmol/L (98-107); Creatinine, Serum 1.35 mg/dL (0.55-1.02); EST Glomerular Filtration Rate 41 mL/min (>60); Est Glom Filt Rate - Afr Amer 50 mL/min (>60); Estimated Creatinine Clearance 33.96 ml/min; Glucose 537 mg/dL (74-106); Potassium 4.8 mmol/L (3.5-5.1); Sodium Level 129 mmol/L (136-145); Troponin-I HS (w/2H Reflex) 10 pg/mL (3.0-54.0)
[2023-01-22 16:28] VITALS: BP 140/73; PULSE 78; RESP 16; O2SAT 100
[2023-01-22] MEDS: 0.9% Normal Saline 1,000 ML 999 ML IV (16:30)
[2023-01-22] MEDS: Metoclopramide 10 MG/2 ML Vial 5 MG IV (16:30)
--- NOTE | 2023-01-22 16:58 | ED.RN ---
pt. threw up after initial dose of zofran
[2023-01-22 17:00] VITALS: BP 146/61; PULSE 78; RESP 16; O2SAT 98
[2023-01-22 17:05] LABS: Blood Gas Specimen Type VEN; VBG BASE EXCESS -4 mmol/L (-1.0-3.5); VBG Bicarbonate 19 mmol/L (22-26); VBG PO2 45 mmHg (25-40); VBG SO2 85 % (50-70); VBG TCO2 20 mmol/L (23-33); VBG pCO2 25.9 mmHg (41-51); VBG pH 7.48 (7.32-7.42)
[2023-01-22 17:37] LABS: Reflex Troponin-HS? (from REC) Y
[2023-01-22 18:20] LABS: Bedside Glucose 234 mg/dL (74-106)
[2023-01-22 18:21] LABS: Troponin-I HS 10 pg/mL (3.0-54.0)
== END 2023-01-22 18:53 | disposition home or self-care (01) ==
PROVIDERS: Emergency Provider Emergency Medicine; PCP Student in an Organized Health Care Education/Training Program; Visit Provider Emergency Medicine
DX: R07.9 Chest pain, unspecified (principal); J44.9 Chronic obstructive pulmonary disease, unspecified; E11.65 Type 2 diabetes mellitus with hyperglycemia; E11.22 Type 2 diabetes mellitus with diabetic chronic kidney disease; Z79.4 Long term (current) use of insulin; N18.30 Chronic kidney disease, stage 3 unspecified; E87.1 Hypo-osmolality and hyponatremia; R11.2 Nausea with vomiting, unspecified; Z87.891 Personal history of nicotine dependence; I25.10 Atherosclerotic heart disease of native coronary artery without angina pectoris; E78.5 Hyperlipidemia, unspecified; I12.9 Hypertensive chronic kidney disease with stage 1 through stage 4 chronic kidney disease, or unspecified chronic kidney disease; Z79.82 Long term (current) use of aspirin; Z79.84 Long term (current) use of oral hypoglycemic drugs; Z79.02 Long term (current) use of antithrombotics/antiplatelets; I25.2 Old myocardial infarction; K21.9 Gastro-esophageal reflux disease without esophagitis; Z86.711 Personal history of pulmonary embolism; Z79.899 Other long term (current) drug therapy; G47.30 Sleep apnea, unspecified; Z95.5 Presence of coronary angioplasty implant and graft; Z90.49 Acquired absence of other specified parts of digestive tract; Z90.710 Acquired absence of both cervix and uterus
CPT/HCPCS: 71045; 80048; 82009; 82803; 82962; 84484; 85025; 93005; 96361; 96374; 96375; 99283; J7030; A4216; J2405

== ENCOUNTER 2023-02-19 15:30 | Inpatient (IN) | payer MEDICARE, SELFPAY ==
[2017-03-16 08:30] VITALS: BMI 29.2
[2023-02-19] VITALS (25 sets, daily range): BP systolic 91–161; BP diastolic 53–107; PULSE 69–80; RESP 10–20; TEMP 36.1–36.9; O2SAT 96–100; BMI 22.1; BMI 21.5
--- NOTE | 2023-02-19 15:40 | NURSING ---
PT NODS AND SHAKES HEAD WHEN ASKED YES OR NO QUESTIONS. DOES NOT MAKE ANY ATTEMPT TO SPEAK. OPENS EYES WHEN SPOKEN TO. ABLE TO MOVE ALL EXTREMITIES FREELY.
--- NOTE | 2023-02-19 16:02 | EKG12_ITS ---
Test Reason : syncope Blood Pressure : / mmHG Vent. Rate : 075 BPM Atrial Rate : 075 BPM P-R Int : 164 ms QRS Dur : 074 ms QT Int : 442 ms P-R-T Axes : 086 049 080 degrees QTc Int : 493 ms Normal sinus rhythm Nonspecific ST and T wave abnormality Prolonged QT Abnormal ECG Confirmed by TJ BARFIELD, GLORY ([id number]), sound editor TAQUERIA CHAMBERLAIN ([id number]) on 02/21/2023 11:29:41 A M Referred By: Confirmed By:AL SPENCER MD
--- NOTE | 2023-02-19 16:02 | CT_ITS ---
We are attempting to reach an attending provider to discuss findings. An addendum with communication details will be sent when the communication is complete. EXAM: CT ANGIOGRAPHY HEAD AND NECK WITH INTRAVENOUS CONTRAST CLINICAL INDICATION: Neuro deficit, acute, stroke suspected TECHNIQUE: [place]/head and neck CT angiography protocol performed with intravenous contrast. This CT exam was performed using one or more of the following dose reduction techniques: automated exposure control, adjustment of the mA and/or kV according to patient size, and/or use of iterative reconstruction technique. MIP reconstructed images were created and reviewed. CONTRAST: IV 100mL [id number] COMPARISON: No relevant prior studies available. FINDINGS: HEAD: RIGHT ANTERIOR CEREBRAL ARTERY: There is hypoplastic development of the right A1 segment of the anterior cerebral arteries with an atretic but intact artery. No significant stenosis at the visualized segments. Anterior communicating artery is present. No aneurysm. RIGHT MIDDLE CEREBRAL ARTERY: Unremarkable. No significant stenosis at the visualized segments. No aneurysm. RIGHT POSTERIOR CEREBRAL ARTERY: There is absence of the right P1 segment of the posterior cerebral arteries with a normal left P1 segment. Normal visualized bilateral P2 and P3 segments of the posterior cerebral arteries. There is a persistent origin of the right posterior cerebral artery with absence of the posterior communicating artery (PCOM). No occlusion or significant stenosis. No aneurysm. RIGHT INTRACRANIAL INTERNAL CAROTID ARTERY: Unremarkable. No significant stenosis. No dissection or occlusion. RIGHT INTRACRANIAL VERTEBRAL ARTERY: Unremarkable. No significant stenosis. No dissection or occlusion. LEFT ANTERIOR CEREBRAL ARTERY: Unremarkable. No significant stenosis at the visualized segments. No aneurysm. LEFT MIDDLE CEREBRAL ARTERY: Unremarkable. No significant stenosis at the visualized segments. No aneurysm. LEFT POSTERIOR CEREBRAL ARTERY: See above. LEFT INTRACRANIAL INTERNAL CAROTID ARTERY: Unremarkable. No significant stenosis. No dissection or occlusion. LEFT INTRACRANIAL VERTEBRAL ARTERY: Unremarkable. No significant stenosis. No dissection or occlusion. BASILAR ARTERY: Unremarkable. No significant stenosis. No aneurysm. OTHER VASCULATURE: There is mild atherosclerotic plaque formation of the origin of the right internal carotid artery with less than 50% cross sectional diameter stenosis. ALL ABOVE CRITERIA BY NASCET. There is mild atherosclerotic plaque formation of the origin of the left internal carotid artery with less than 50% cross sectional diameter stenosis. ALL ABOVE CRITERIA BY NASCET. There is calcified plaque formation of the right cavernous carotid artery, with a mild stenosis (less than 50%). ALL ABOVE CRITERIA BY NASCET. There is calcified plaque formation of the left cavernous carotid artery, with a mild stenosis (less than 50%). ALL ABOVE CRITERIA BY NASCET. No vascular malformation. NECK: RIGHT COMMON CAROTID ARTERY: Unremarkable. No significant stenosis. No dissection or occlusion. RIGHT EXTRACRANIAL INTERNAL CAROTID ARTERY: Unremarkable. No significant stenosis. No dissection or occlusion. RIGHT EXTERNAL CAROTID ARTERY: Unremarkable. No occlusion. RIGHT EXTRACRANIAL VERTEBRAL ARTERY: Unremarkable. No significant stenosis. No dissection or occlusion. LEFT COMMON CAROTID ARTERY: Unremarkable. No significant stenosis. No dissection or occlusion. LEFT EXTRACRANIAL INTERNAL CAROTID ARTERY: Unremarkable. No significant stenosis. No dissection or occlusion. LEFT EXTERNAL CAROTID ARTERY: Unremarkable. No occlusion. LEFT EXTRACRANIAL VERTEBRAL ARTERY: Unremarkable. No significant stenosis. No dissection or occlusion. BRACHIOCEPHALIC AND SUBCLAVIAN ARTERIES: Unremarkable as visualized. No occlusion or significant stenosis. LUNG APICES: Unremarkable as visualized. HEAD and NECK: BONES/JOINTS: There are degenerative findings of the cervical spine. No discrete lytic or blastic abnormalities. SOFT TISSUES: Unremarkable. CAROTID STENOSIS REFERENCE USING NASCET CRITERIA: % ICA stenosis = (1 - narrowest ICA diameter/diameter of distal cervical ICA) x 100. Mild - <50% stenosis. Moderate - 50-69% stenosis. Severe - 70-94% stenosis. Near occlusion - 95-99% stenosis. Occluded - 100% stenosis. CT/STROKE CTA Head AND Neck W/Con IMPRESSION: 1. There is mild atherosclerotic plaque formation of the origin of the right internal carotid artery with less than 50% cross sectional diameter stenosis. ALL ABOVE CRITERIA BY NASCET. 2. There is mild atherosclerotic plaque formation of the origin of the left internal carotid artery with less than 50% cross sectional diameter stenosis. ALL ABOVE CRITERIA BY NASCET. 3. There is calcified plaque formation of the right cavernous carotid artery, with a mild stenosis (less than 50%). ALL ABOVE CRITERIA BY NASCET. 4. There is calcified plaque formation of the left cavernous carotid artery, with a mild stenosis (less than 50%). ALL ABOVE CRITERIA BY NASCET. Electronically Signed: Jorge Quintanilla MD at 16:40 EDT ,
--- NOTE | 2023-02-19 16:02 | CT_ITS ---
We are attempting to reach an attending provider to discuss findings. An addendum with communication details will be sent when the communication is complete. STUDY: CT BRAIN WITHOUT CONTRAST REASON FOR EXAM: Female, 67 years old. Neuro deficit, acute, stroke suspected TECHNIQUE: Transaxial CT imaging of the brain was performed without administration of intravenous contrast material. Individualized dose optimization techniques were used for this CT. COMPARISON: 08.10.21 FINDINGS: Normal calvarium. Normal soft tissues. Normal size ventricles and extra-axial spaces for the patient''s age. Normal white matter tracts of the cerebral hemispheres. Normal basal ganglia and thalami. Normal brainstem. Normal cerebellum. There is no intracranial hemorrhage. There are no findings of an acute ischemic infarction. Normal visualized paranasal sinuses. ASPECTS 10 CT/STROKE Brain/Head without Cont IMPRESSION: There are no acute intracranial findings. Electronically Signed: Jorge Quintanilla MD at 16:23 EDT ,
--- NOTE | 2023-02-19 16:04 | ED.VIS.STROK ---
HPI History of Present Illness Chief Complaint: Syncope Informant: family (Daughter) Narrative Narrative: Daughter states she and the patient were at [employer], the patient stated that she did not feel well and they needed to check out and leave. They were at the register finishing their purchase she states that her mother looked at her and stated that she really did not feel well, so the patient looked at her noticed that her left face was extremely droopy and then suddenly the patient passed out and collapsed on the floor and EMS was called. They checked blood sugar it was in the 250s, she states that is good for her, she is a diabetic. Patient has had no recent illnesses according to the daughter. Daughter does not live with her but she was with her during this time and made a phone call to a family member immediately, knows that the last known well was 1500, evaluated by myself after EMS personnel had left, at about 1600. During my evaluation I called a stroke team given the findings/exam. Daughter states she did not appear to hit her head or have any obvious injury, she just collapsed. She was unresponsive for period of time according to the daughter. The patient complains of a headache right now, she denies pain elsewhere. [facility] Medical History Anxiety and depression Atherosclerotic heart disease of [place] coronary artery without angina pectoris Biceps tendonitis on left Bipolar disorder Cancer CKD (chronic kidney disease) stage 3, GFR 30-59 ml/min Constipation COPD (chronic obstructive pulmonary disease) CVA (cerebral vascular accident) Diabetes Dysarthria Dysphagia Essential (primary) hypertension Fe deficiency anemia Former smoker GERD (gastroesophageal reflux disease) Hyperlipidemia Hypertension Left-sided weakness Myocardial infarct Nicotine dependence Nonrheumatic aortic (valve) insufficiency Pulmonary embolism Schizophrenia Sleep apnea TIA (transient ischemic attack) (12/2018) Type 2 diabetes mellitus Home Medications nitroglycerin 0.4 mg sublingual tablet 0.4 mg SUBLINGUAL Q5M PRN Chest Pain 09/28/17 [History Last Taken 03/01/21] metformin 1,000 mg tablet 500 mg PO DINNER diabetes 11/17/18 [History Last Taken 05/28/21 09:00] clopidogrel 75 mg tablet 75 mg PO DAILY anti platelet 10/30/19 [History Last Taken 05/28/21 09:00] dulaglutide 1.5 mg/0.5 mL subcutaneous pen injector (Trulicity) 1.5 mg subcut QWEEK 02/19/23 [History Last Taken Unknown] furosemide 20 mg tablet 20 mg PO DAILY 02/19/23 [History Last Taken Unknown] lisinopril 5 mg tablet 5 mg PO DAILY 02/19/23 [History Last Taken Unknown] metoprolol tartrate 25 mg tablet 25 mg PO BID 02/19/23 [History Last Taken Unknown] pantoprazole 40 mg tablet,delayed release 40 mg PO DAILY 02/19/23 [History Last Taken Unknown] rosuvastatin 40 mg tablet 40 mg PO DAILY 02/19/23 [History Last Taken Unknown] Allergy/AdvReac Type Severity Reaction Status Date / Time morphine Allergy Hives Verified 02/19/23 15:37 Penicillins Allergy Hives Verified 02/19/23 15:37 hydrocodone bitartrate AdvReac Vomiting Verified 02/19/23 15:37 [From Vicodin] ibuprofen AdvReac Vomiting Verified 02/19/23 15:37 Family History Father Heart disease Hypertension Diabetes Hyperlipidemia Mother Diabetes Heart disease Hypertension Hyperlipidemia Brother Heart disease Age 46 Sister Diabetes Cancer Hyperlipidemia Surgical History H/O coronary artery bypass surgery (01/25/20) H/O: hysterectomy History of aortic valve replacement with bioprosthetic valve (01/25/20) History of coronary artery stent placement (03/15/17) History of coronary artery stent placement History of left heart catheterization (09/19/17) History of shoulder surgery (01/2021) Hx of cholecystectomy Social History Smoking Status: Current some day smoker tobacco type: cigarettes alcohol intake: never substance use type: does not use ROS ROS ED Review of Systems ROS Unobtainable: due to mental status Neurologic Neurologic: Reports headache(s) EXAM Physical Exam Const Vital Signs: 02/19/23 15:32 02/19/23 15:36 02/19/23 16:09 Temperature 96.9 F L Temperature Source Temporal Pulse Rate 74 Respiratory Rate 16 Respiratory Effort Normal Non-Labored Respiratory Pattern Normal Blood Pressure 134/74 H Blood Pressure Mean 94 Blood Pressure Source Blood Pressure Position Blood Pressure Location Pulse Ox 98 Oxygen Delivery Method Room Air Room Air 02/19/23 16:32 02/19/23 16:22 02/19/23 16:52 Temperature Temperature Source Pulse Rate 80 76 Respiratory Rate 14 12 Respiratory Effort Respiratory Pattern Blood Pressure 137/59 H 155/59 H 137/59 H Blood Pressure Mean 85 91 Blood Pressure Source Blood Pressure Position Blood Pressure Location Pulse Ox 99 97 Oxygen Delivery Method Room Air Room Air 02/19/23 16:56 02/19/23 17:11 02/19/23 17:16 Temperature 97.9 F Temperature Source Oral Pulse Rate 78 74 73 Respiratory Rate 14 12 13 Respiratory Effort Respiratory Pattern Blood Pressure 142/65 H 140/72 H 140/107 H Blood Pressure Mean 90 94 118 Blood Pressure Source Monitor Monitor Blood Pressure Position Semi-Fowlers Semi-Fowlers Blood Pressure Location Left Arm Left Arm Pulse Ox 99 99 98 Oxygen Delivery Method Room Air Room Air Room Air 02/19/23 17:26 02/19/23 17:41 Temperature 97.5 F L 97.7 F L Temperature Source Core Core Pulse Rate 77 73 Respiratory Rate 13 14 Respiratory Effort Respiratory Pattern Blood Pressure 124/77 H 152/75 H Blood Pressure Mean 92 100 Blood Pressure Source Monitor Monitor Blood Pressure Position Semi-Fowlers Semi-Fowlers Blood Pressure Location Left Arm Left Arm Pulse Ox 100 99 Oxygen Delivery Method Room Air Room Air Positive well nourished and well developed Constitutional Narrative: Somnolent, in no distress, alerts to voice, follows commands General Appearance ED: well developed and NAD HEENT Reports moist mucous membranes normocephalic and atraumatic Eyes PERRL Eyes Narrative: EOM grossly, no forced deviation but difficult to follow commands here Neck full ROM and supple Resp normal respiratory effort and clear to auscultation bilaterally Cardio regular rate and regular rhythm GI non-tender and non-distended Auscultation: normoactive bowel sounds Palpation: soft Back/Spine no CVA tenderness General Back: other FROM Extremity normal to inspection General Extremety ED: Negative for edema, pulses abnormal or tenderness General Extremity: Negative for edema or pulses abnormal Neuro CN's II-XII intact bilaterally Sensorium / Orientation: awake, alert and lethargic Skin no rashes or lesions noted and no wounds NIHSS NIHSS Initial: 1a Level of Consciousness: 1 1b LOC Questions (Score 2 if aphasic/stupor): 2 1c LOC Commands (Only score 1st attempt): 0 2 Best Gaze (If aphasic, use reflexive mvmts.): 0 3 Visual: 0 4 Facial Palsy: 1 5 Motor Arm Right (UN = amputation/fusion): 0 5 Motor Arm Left: 1 6 Motor Leg Right: 0 6 Motor Leg Left: 2 7 Limb ataxia (Only + if out of proportion): 0 8 Sensory (Aphasia/stupor=0 or 1, coma=2): 1 9 Best Language: 1 10 Dysarthria (mute, coma=2, intubated=UN): 0 11 Extinction and Inattention (only scored if +): 0 Total Score: 9 MDM MDM MDM Narrative Medical decision making narrative: Initially my concern was that this could have been an acute subarachnoid hemorrhage given the history. Therefore I was apprehensive about ordering thrombolytic therapy prior to getting stroke neurologist consultation. Unfortunately there was delay in getting this because the stroke neurologist Dr. Sutton was on another call with a different stroke at a different facility. Once he was able to be min, I came to the bedside and we discussed everything along with patient evaluation and family at the bedside. Further history obtained from the family is that she was last known well about 1450, 10 minutes prior to the event, she was in the store feeling dizzy/off balance. She thought that she was unconscious when she collapsed, and she noticed weakness throughout the left side. Stroke neurologist agrees that the patient seems objectively mildly weak on the left side and also seems ataxic. I scored the patient 0 for ataxia because of her weakness on the left side. Given all of this, Dr. Sutton recommends thrombolytics. He discussed risks and alternatives, family is okay with this and it was given see the nursing notes. Will discuss with hospitalist for admission to ICU. I did review images of both the plain CT and the CTA. She does not appear to have subarachnoid hemorrhage, intracranial hemorrhage, MCA sign, nor an aneurysm or LVO. Radiology reviewed all this, I discussed with the radiologist twice regarding both of these, and he is in agreement with my interpretation that it is all negative for any acute abnormality. Checklist filled out, patient has no contraindications for thrombolytics, TNK given in ED. History & Record Review Discussion w/independent historian: Patient and Family Additional record(s) reviewed:: Prior outpatient record and Prior labs Lab Data Attestation: I reviewed the patient's lab results. Labs: Laboratory Results - last 24 hr 02/19/23 02/19/23 02/19/23 16:25 16:25 16:25 WBC 6.3 RBC 3.63 L Hgb 11.5 L Hct 33.5 L MCV 92.3 MCH 31.7 MCHC 34.3 RDW Std Deviation 41.6 RDW Coeff of [place] 12.1 Plt Count 164 MPV 11.3 Immature Gran % (Auto) 0.500 Neut % (Auto) 54.2 Lymph % (Auto) 33.9 Mitchell % (Auto) 8.6 Eos % (Auto) 2.2 Baso % (Auto) 0.6 Absolute Neuts (auto) 3.4 Absolute Lymphs (auto) 2.13 Nucleated RBC % 0 PT 13.2 INR 1.0 APTT 23.0 L Sodium 136 Potassium 4.4 Chloride 105 Carbon Dioxide 24.0 Anion Gap 7 BUN 13 Creatinine 0.86 Estim Creat Clear Calc 53.31 Est GFR (MDRD) Af Amer 84 Est GFR (MDRD) Non-Af 69 BUN/Creatinine Ratio 15.1 Glucose 245 H Calcium 8.4 L Troponin I High Sens 44 Radiography Chest X-Ray - ED: 1 View, Read by ED Physician, Normal, Heart, Lungs, Mediastinum, Bony Structures, No Acute Disease and No Infiltrates Diagnostic Testing: Clinical Impression(s) from Imaging Studies Head/Neck CTA 02/19/23 16:02 IMPRESSION: 1. There is mild atherosclerotic plaque formation of the origin of the right internal carotid artery with less than 50% cross sectional diameter stenosis. ALL ABOVE CRITERIA BY NASCET. 2. There is mild atherosclerotic plaque formation of the origin of the left internal carotid artery with less than 50% cross sectional diameter stenosis. ALL ABOVE CRITERIA BY NASCET. 3. There is calcified plaque formation of the right cavernous carotid artery, with a mild stenosis (less than 50%). ALL ABOVE CRITERIA BY NASCET. 4. There is calcified plaque formation of the left cavernous carotid artery, with a mild stenosis (less than 50%). ALL ABOVE CRITERIA BY NASCET. Electronically Signed: Jorge Quintanilla MD at 16:40 EDT , ADDENDUM: 02/19/23 1652 IMPRESSION: 1. There is mild atherosclerotic plaque formation of the origin of the right internal carotid artery with less than 50% cross sectional diameter stenosis. ALL ABOVE CRITERIA BY NASCET. 2. There is mild atherosclerotic plaque formation of the origin of the left internal carotid artery with less than 50% cross sectional diameter stenosis. ALL ABOVE CRITERIA BY NASCET. 3. There is calcified plaque formation of the right cavernous carotid artery, with a mild stenosis (less than 50%). ALL ABOVE CRITERIA BY NASCET. 4. There is calcified plaque formation of the left cavernous carotid artery, with a mild stenosis (less than 50%). ALL ABOVE CRITERIA BY NASCET. N.B. : The above Results were Read Back by Jorge Quintanilla MD to Cezar Lee MD, and understanding confirmed on 02/19/2023 16:45:25 (ET). Electronically Signed: Jorge Quintanilla MD at 16:40 EDT , Chest X-Ray 02/19/23 17:05 IMPRESSION: There are no acute findings. Electronically Signed: Jorge Quintanilla MD at 18:18 EDT , Rhythm Strip Rhythm Strip: Sinus Rhythm Rate: 75 Ectopy: None EKG Initial EKG: Attestation: I personally reviewed and interpreted this EKG as follows: Interpretation: Sinus Rhythm and No Acute Injury Pattern Prior EKG tracings: available for review Prior: Unchanged Management Discussion w/another healthcare provider: Hospitalist, Supervisor Machining and Radiologist Stroke Documentation Questions Stroke Team Activated: Yes Reviewed Inclusion/Exclusion criteria: Yes Was Patient considered for Endovascular Intervention?: No-CTA negative, determined not to be an endovascular candidate IV Thrombolytic Administered: Yes No contraindications from thrombolytic administration: Yes Risks, Benefits, Alternatives Discussed: Yes Critical Care Time Critical Care Time: Yes Critical care time (excluding procedures): 30-74 minutes (40), Including time spent:, Discussing w/Patient &/or Family/Public Area Supervisor, Discussing w/Consultants, Arranging Admission or Transfer and Performing Direct Patient Care at Bedside Discharge Plan Dx/Rx/DC Orders Clinical Impression: Acute ischemic stroke Disposition Disposition: Acute Care Hospital [facility] Discharge Date/Time: 02/19/23 17:24
--- NOTE | 2023-02-19 16:28 | NURSING ---
LACK OF PARTICIPATION NOTED WHEN PERFORMING NIH- PT TURNS HEAD AWAY FROM NURSE WHEN ASKED TO PERFORM TASKS. WILL NOT ANSWER QUESTIONS. PT BECOMES FRUSTRATED WITH QUESTIONS AND WILL STATE DON'T KNOW AND DON'T CARE WHEN ASKED WHERE SHE IS. SPEECH IS CLEAR. PT REFUESES TO LIFT ARMS WHEN ASKED TO DO SO BUT WHEN FRUSTRATED PT LIFTS BOTH ARMS AND TURNS AWAY FROM NURSE.
[2023-02-19 16:35] LABS: Absolute Lymphocyte Count 2.13 X10^3/uL (0.83-4.51); Absolute Neutrophil Count 3.4 X10^3/uL (2.0-7.7); Basophil# 0.04 X10^3/uL; Basophil% 0.6 % (0-1); Eosinophil# 0.14 X10^3/uL; Eosinophils% 2.2 % (0-5); Hematocrit 33.5 % (37-47); Hemoglobin 11.5 g/dL (12.0-15.0); Lymphocyte # 2.13 X10^3/ul (0.83-4.51); Lymphocyte % 33.9 % (19-41); Mean Corp Hgb Conc 34.3 g/dL (32-36); Mean Corpuscular Hgb 31.7 pg (27.0-32.0); Mean Corpuscular Volume 92.3 fL (81-99); Mean Platelet Vol. 11.3 fl (6.2-12.0); Monocyte# 0.54 X10^3/uL; Monocyte% 8.6 % (0-10); NRBC Flagged by Analyzer 0 % (0-5); Neutrophil % 54.2 % (47-70); Platelet Count 164 K/mm3 (150-450); RBC Distribution Width CV 12.1 % (11.6-14.6); RBC Distribution Width SD 41.6 fl (35.1-43.9); Red Blood Count 3.63 M/mm3 (4.2-5.4); White Blood Count 6.3 K/mm3 (4.4-11.0)
[2023-02-19 16:44] LABS: Prothrombin Time (Protime)PT. 13.2 SECONDS (11.7-14.9)
[2023-02-19 16:54] LABS: Anion Gap 7 (5-15); BUN 13 mg/dL (7-18); BUN/Creat Ratio 15.1 RATIO (10-20); Calcium,Total 8.4 mg/dL (8.5-10.1); Chloride 105 mmol/L (98-107); Creatinine, Serum 0.86 mg/dL (0.55-1.02); EST Glomerular Filtration Rate 69 mL/min (>60); Est Glom Filt Rate - Afr Amer 84 mL/min (>60); Estimated Creatinine Clearance 53.31 ml/min; Glucose 245 mg/dL (74-106); Potassium 4.4 mmol/L (3.5-5.1); Sodium Level 136 mmol/L (136-145); Troponin-I HS 44 pg/mL (3.0-54.0)
--- NOTE | 2023-02-19 17:05 | RAD_ITS ---
STUDY: XR Chest 1 View 02/19/2023 5:05 PM REASON FOR EXAM: Female, 67 years old. CHEST PAIN Neuro deficit, acute, stroke suspected COMPARISON: 01/22/2023 TECHNIQUE: XR Chest 1 View FINDINGS: There is no demonstrated pleural abnormality. There are multiple median sternotomy wires. Prosthetic heart valve. Coronary stents. Normal heart size. Normal mediastinum. Normal jovan. Prominent appearing increased interstitial lung markings. Normal visualized pulmonary arteries. There is atherosclerotic calcification of the aortic arch with tortuosity. There are diffuse degenerative changes of the visualized thoracic spine. There is degenerative osteoarthritis of the bilateral shoulders. There is no demonstrated abnormality of the visualized soft tissue structures of the upper abdomen. RAD/Chest 1 View IMPRESSION: There are no acute findings. Electronically Signed: Jorge Quintanilla MD at 18:18 EDT ,
[2023-02-19] MEDS: 0.9% Normal Saline 1,000 ML 100 ML IV (17:10)
[2023-02-19] MEDS: 0.9% Saline Lock 10 ML Syringe IV ×2 (17:11→18:24)
--- NOTE | 2023-02-19 17:40 | MRI_ITS ---
EXAM: MR HEAD WITHOUT INTRAVENOUS CONTRAST CLINICAL INDICATION: stroke TECHNIQUE: Multiplanar and multisequence MR images of the brain were obtained without intravenous contrast. COMPARISON: CT head without contrast 02/20/2023. FINDINGS: BRAIN AND EXTRA-AXIAL SPACES: Unremarkable. No intra- or extra-axial hemorrhage. No evidence of acute infarct. No intracranial mass or mass effect. There is preservation of the dang/white matter interface. Posterior fossa structures are unremarkable. Ventricles are appropriate for age. No hydrocephalus. Basal cisterns are patent. No focal signal abnormalities throughout the brain parenchyma in all pulse sequences. SELLA: Unremarkable. Normal sella turcica, pituitary gland, infundibular stalk, optic chiasm and hypothalamus. AUDITORY SYSTEM: Unremarkable. The internal auditory canals are patent. BONES/JOINTS: Unremarkable. No discrete lytic or blastic abnormalities. SINUSES: Unremarkable as visualized. Clear. MASTOID AIR CELLS: Unremarkable as visualized. Clear. ORBITS: Unremarkable as visualized. Both globes, extraocular muscles, optic nerves and retrobulbar fat appear unremarkable. VASCULATURE: Unremarkable as visualized. Normal flow voids in the major intracranial circulation. MRI/Brain without Contrast IMPRESSION: Negative MRI brain without intravenous contrast. Electronically Signed: Baldo Millan MD at 11:25 EDT ,
--- NOTE | 2023-02-19 17:41 | ECHOD_ITS ---
Reason For Study: TIA/Stroke Procedure This was a 2D Doppler, Color Flow transthoracic echocardiogram. Exam performed portable in patient room. Left Ventricle Normal LV size. Left ventricular systolic function is normal. The estimated ejection fraction is 70 %. No regional wall motion abnormalities noted. Right Ventricle Normal RV size. Normal systolic function. Atria Normal left atrium. Normal right atrium. Bubble contrast study negative for right to left interatrial shunt. Mitral Valve Normal mitral valve. Mild-Moderate (1-2+) eccentric mitral valve insufficiency. Tricuspid Valve Normal tricuspid valve. Mild (1+) tricuspid valve insufficiency. Pulmonary artery systolic pressure is 32 mmHg. Aortic Valve Peak aortic valve gradient 28 mmHg. Mean aortic valve gradient 18 mmHg. Bioprosthetic aortic valve. Pulmonic Valve Normal pulmonic valve. Great Vessels Normal aortic root. The pulmonary artery is normal size. Normal inferior vena cava. Pericardium/Pleural No pericardial effusion. Medication Performed a rapid injection of agitated mix of 9 cc saline and 1cc air to assess for atrial septal defect. MMode/2D Measurements & Calculations LVIDd: 4.0 cm IVSd: 0.92 cm LVOT diam: 1.9 cm LVIDs: 2.3 cm LVPWd: 1.1 cm RVDd: 3.5 cm FS: 41.6 % LVOT area: 3.0 cm2 Ao root diam: 3.2 cm LAV(MOD-bp): 41.8 ml LVAd ap4: 19.7 cm2 LAV(MOD-bp) Indexed: 25.6 ml/m2 LVLd ap4: 7.3 cm LAV(MOD-sp2): 34.1 ml EDV(MOD-sp4): 43.1 ml LAV(MOD-sp4): 44.7 ml EDV(sp4-el): 45.2 ml LVAs ap4: 10.2 cm2 LVLs ap4: 6.1 cm ESV(MOD-sp4): 15.3 ml ESV(sp4-el): 14.6 ml EF(MOD-sp4): 64.6 % EF(sp4-el): 67.8 % SV(MOD-sp4): 27.8 ml SV(sp4-el): 30.7 ml LA A4 area: 16.7 cm2 LA dimension(2D): 3.8 cm RA A4 area: 12.5 cm2 Time Measurements MV dec time: 0.28 sec Doppler Measurements & Calculations MV E max chris: 113.5 cm/sec Lat Peak E' Chris: 11.9 cm/sec Med Peak E' Chris: 4.4 cm/sec MV A max chris: 83.6 cm/sec E/E' lat: 9.6 E/E' med: 25.9 MV E/A: 1.4 MV dec slope: 411.0 cm/sec2 Ao V2 max: 266.5 cm/sec LV V1 max: 136.8 cm/sec Ao max P.4 mmHg LV V1 max P.5 mmHg Ao V2 mean: 201.2 cm/sec LV V1 mean P.5 mmHg Ao mean P.5 mmHg LV V1 mean: 100.4 cm/sec Ao V2 VTI: 59.4 cm LV V1 VTI: 30.8 cm AV (velocity ratio): 0.52 ABEL(I,D): 1.5 cm2 ABEL(V,D): 1.5 cm2 SV(LVOT): 91.4 ml PA V2 max: 88.9 cm/sec PI end-d chris: 79.8 cm/sec TR max chris: 271.4 cm/sec TR max P.5 mmHg ECHO/Echo Complete Interpretation Summary Normal LV size. Left ventricular systolic function is normal. The estimated ejection fraction is 70 %. Bubble contrast study negative for right to left interatrial shunt. Bioprosthetic aortic valve. Mean aortic valve gradient 18 mmHg. Ordering Physician: Yahir Gamble Referring Physician: Nilson Jeffrey Performed By: Helen Francois, CHUYITA, RVT
--- NOTE | 2023-02-19 17:55 | PCM.HP.STD ---
HPI - General General Date of Admission: 02/19/23 Date of Service: 02/19/23 Chief Complaint: Left-sided weakness HPI Narrative SOFÍA CURTIS, is a 67 F with a history of poorly controlled diabetes and hypertension as well as coronary disease status post CABG and who presents to the emergency department today after developing left-sided weakness, dizziness and near fall late this morning. Was called and NIH of 11 and patient received tenecteplase and was evaluated by telestroke service. Currently patient complains of left-sided weakness and numbness as well. She is able to follow commands and clearly comprehends instructions and is able to say a few words fluently. She denies any chest pain or shortness of breath. FORMERLY [facility], [facility] Medical History Anxiety and depression Atherosclerotic heart disease of [place] coronary artery without angina pectoris Biceps tendonitis on left Bipolar disorder Cancer CKD (chronic kidney disease) stage 3, GFR 30-59 ml/min Constipation COPD (chronic obstructive pulmonary disease) CVA (cerebral vascular accident) Diabetes Dysarthria Dysphagia Essential (primary) hypertension Fe deficiency anemia Former smoker GERD (gastroesophageal reflux disease) Hyperlipidemia Hypertension Left-sided weakness Myocardial infarct Nicotine dependence Nonrheumatic aortic (valve) insufficiency Pulmonary embolism Schizophrenia Sleep apnea TIA (transient ischemic attack) (12/2018) Type 2 diabetes mellitus Home Medications nitroglycerin 0.4 mg sublingual tablet 0.4 mg SUBLINGUAL Q5M PRN Chest Pain 09/28/17 [History Last Taken 03/01/21] metformin 1,000 mg tablet 500 mg PO DINNER diabetes 11/17/18 [History Last Taken 05/28/21 09:00] clopidogrel 75 mg tablet 75 mg PO DAILY anti platelet 10/30/19 [History Last Taken 05/28/21 09:00] dulaglutide 1.5 mg/0.5 mL subcutaneous pen injector (Trulicity) 1.5 mg subcut QWEEK 02/19/23 [History Last Taken Unknown] furosemide 20 mg tablet 20 mg PO DAILY 02/19/23 [History Last Taken Unknown] lisinopril 5 mg tablet 5 mg PO DAILY 02/19/23 [History Last Taken Unknown] metoprolol tartrate 25 mg tablet 25 mg PO BID 02/19/23 [History Last Taken Unknown] pantoprazole 40 mg tablet,delayed release 40 mg PO DAILY 02/19/23 [History Last Taken Unknown] rosuvastatin 40 mg tablet 40 mg PO DAILY 02/19/23 [History Last Taken Unknown] Allergy/AdvReac Type Severity Reaction Status Date / Time morphine Allergy Hives Verified 02/19/23 15:37 Penicillins Allergy Hives Verified 02/19/23 15:37 hydrocodone bitartrate AdvReac Vomiting Verified 02/19/23 15:37 [From Vicodin] ibuprofen AdvReac Vomiting Verified 02/19/23 15:37 Family History Father Heart disease Hypertension Diabetes Hyperlipidemia Mother Diabetes Heart disease Hypertension Hyperlipidemia Brother Heart disease Age 46 Sister Diabetes Cancer Hyperlipidemia Surgical History H/O coronary artery bypass surgery (01/25/20) H/O: hysterectomy History of aortic valve replacement with bioprosthetic valve (01/25/20) History of coronary artery stent placement (03/15/17) History of coronary artery stent placement History of left heart catheterization (09/19/17) History of shoulder surgery (01/2021) Hx of cholecystectomy Social History Smoking Status: Current every day smoker tobacco type: cigarettes alcohol intake: never substance use type: does not use ROS ROS Narrative Denies any chest pain or shortness of breath. Obtaining review of systems was challenging as patient appears to be somewhat mute and unwilling to provide history. Vital Signs Vital Signs Vital Signs: 02/19/23 15:32 02/19/23 15:36 02/19/23 16:09 Temperature 36.1 C L Temperature Source Temporal Pulse Rate 74 Respiratory Rate 16 Respiratory Effort Normal Non-Labored Respiratory Pattern Normal Blood Pressure 134/74 H Blood Pressure Mean 94 Blood Pressure Source Blood Pressure Position Blood Pressure Location Pulse Ox 98 Oxygen Delivery Method Room Air Room Air 02/19/23 16:32 02/19/23 16:22 02/19/23 16:52 Temperature Temperature Source Pulse Rate 80 76 Respiratory Rate 14 12 Respiratory Effort Respiratory Pattern Blood Pressure 137/59 H 155/59 H 137/59 H Blood Pressure Mean 85 91 Blood Pressure Source Blood Pressure Position Blood Pressure Location Pulse Ox 99 97 Oxygen Delivery Method Room Air Room Air 02/19/23 16:56 02/19/23 17:11 02/19/23 17:16 Temperature 36.6 C Temperature Source Oral Pulse Rate 78 74 73 Respiratory Rate 14 12 13 Respiratory Effort Respiratory Pattern Blood Pressure 142/65 H 140/72 H 140/107 H Blood Pressure Mean 90 94 118 Blood Pressure Source Monitor Monitor Blood Pressure Position Semi-Fowlers Semi-Fowlers Blood Pressure Location Left Arm Left Arm Pulse Ox 99 99 98 Oxygen Delivery Method Room Air Room Air Room Air 02/19/23 17:26 02/19/23 17:41 02/19/23 17:48 Temperature 36.4 C L 36.5 C L 36.5 C L Temperature Source Core Core Core Pulse Rate 77 73 72 Respiratory Rate 13 14 16 Respiratory Effort Respiratory Pattern Blood Pressure 124/77 H 152/75 H 148/69 H Blood Pressure Mean 92 100 95 Blood Pressure Source Monitor Monitor Monitor Blood Pressure Position Semi-Fowlers Semi-Fowlers Semi-Fowlers Blood Pressure Location Left Arm Left Arm Left Arm Pulse Ox 100 99 100 Oxygen Delivery Method Room Air Room Air Room Air Weight Weight: 56.9 kg Body Mass Index (BMI) 21.5 Physical Exam Narrative General exam. Elderly woman, appears older than stated age, not in any overt distress, depressed appearing HEENT. Oral mucosa slightly dry Neck. Neck is supple Heart. First and second heart sounds heard. Grade 2/6 ejection systolic murmur noted in the right upper sternal border Lungs diminished breath sounds bilaterally Abdomen moves with respiration and full Extremities no pedal edema [employer] [place]. Conscious and alert and oriented x2, diminished sensation on the left side of face and body, power in the left upper and lower extremity is about 4 -/5 in the left upper extremity and 3+/5 in the left lower extremity. Power 5 out of 5 on the right. Deep tendon reflexes diminished in the left lower extremity Results Medical Records Data Attestation: I reviewed the patient's medical records Lab / Micro Data Attestation: I reviewed the patient's lab results. Result Diagrams: 02/19/23 16:25 02/19/23 16:25 Labs: Laboratory Results - last 24 hr 02/19/23 16:25: WBC 6.3, RBC 3.63 L, Hgb 11.5 L, Hct 33.5 L, MCV 92.3, MCH 31.7, MCHC 34.3, RDW Std Deviation 41.6, RDW Coeff of [place] 12.1, Plt Count 164, MPV 11.3, Immature Gran % (Auto) 0.500, Neut % (Auto) 54.2, Lymph % (Auto) 33.9, [place] % (Auto) 8.6, Eos % (Auto) 2.2, Baso % (Auto) 0.6, Absolute Neuts (auto) 3.4, Absolute Lymphs (auto) 2.13, Nucleated RBC % 0 02/19/23 16:25: PT 13.2, INR 1.0, APTT 23.0 L 02/19/23 16:25: Sodium 136, Potassium 4.4, Chloride 105, Carbon Dioxide 24.0, Anion Gap 7, BUN 13, Creatinine 0.86, Estim Creat Clear Calc 53.31, Est GFR (MDRD) Af Amer 84, Est GFR (MDRD) Non-Af 69, BUN/Creatinine Ratio 15.1, Glucose 245 H, Calcium 8.4 L, Troponin I High Sens 44 Rhythm Strip Rhythm Strip: Sinus Rhythm Rate: 75 Ectopy: None Radiology Impression Head/Neck CTA 02/19/23 16:02 IMPRESSION: 1. There is mild atherosclerotic plaque formation of the origin of the right internal carotid artery with less than 50% cross sectional diameter stenosis. ALL ABOVE CRITERIA BY NASCET. 2. There is mild atherosclerotic plaque formation of the origin of the left internal carotid artery with less than 50% cross sectional diameter stenosis. ALL ABOVE CRITERIA BY NASCET. 3. There is calcified plaque formation of the right cavernous carotid artery, with a mild stenosis (less than 50%). ALL ABOVE CRITERIA BY NASCET. 4. There is calcified plaque formation of the left cavernous carotid artery, with a mild stenosis (less than 50%). ALL ABOVE CRITERIA BY NASCET. Electronically Signed: Jorge Quintanilla MD at 16:40 EDT , ADDENDUM: 02/19/23 2675 IMPRESSION: 1. There is mild atherosclerotic plaque formation of the origin of the right internal carotid artery with less than 50% cross sectional diameter stenosis. ALL ABOVE CRITERIA BY NASCET. 2. There is mild atherosclerotic plaque formation of the origin of the left internal carotid artery with less than 50% cross sectional diameter stenosis. ALL ABOVE CRITERIA BY NASCET. 3. There is calcified plaque formation of the right cavernous carotid artery, with a mild stenosis (less than 50%). ALL ABOVE CRITERIA BY NASCET. 4. There is calcified plaque formation of the left cavernous carotid artery, with a mild stenosis (less than 50%). ALL ABOVE CRITERIA BY NASCET. N.B. : The above Results were Read Back by Jogre Quintanilla MD to Cezar Lee MD, and understanding confirmed on 02/19/2023 16:45:25 (ET). Electronically Signed: Jorge Quintanilla MD at 16:40 EDT , Assessment & Plan Assessment/Plan (1) Acute ischemic stroke: PLAN: Plan Assessment and plan 1. Acute ischemic stroke suspect right MCA lacunar stroke. Risk factors include hypertension, coronary disease, poorly controlled diabetes and tobacco abuse. Patient is already on dual antiplatelet therapy with Plavix and aspirin. We will continue. Patient is on high intensity statin we will continue with Crestor 40 mg daily. Check lipid profile. Check A1c. Patient is status post tenecteplase administration in the emergency department. Monitor in the ICU for the next 24-48 hours. Consult neurology. Permissive hypertension but keep SBP below 180/105 for first 24 hours. DVT prophylaxis with Lovenox 40 mg daily starting tomorrow. 2. Type 2 diabetes. Poorly controlled. Check A1c. Patient on Trulicity and metformin. We will hold metformin given recent contrast administration. Glycemic control with basal bolus insulin with Lantus and Humalog sliding scale. Accu-Cheks before meals and at bedtime. 3. Holding on hypertensives for now for permissive hypertension for first 24 to 48 hours poststroke.
[2023-02-19] MEDS: Acetaminophen 325 MG Tablet 650 MG PO (18:27)
[2023-02-19 18:41] LABS: Bedside Glucose 283 mg/dL (74-106)
[2023-02-19] MEDS: KCL 20MEQ in 0.9% NS 20 MEQ/1,000 ML IV.SOLN. 100 MEQ IV (20:10)
[2023-02-19] MEDS: Ondansetron 4 MG/2 ML Vial IV (20:40)
[2023-02-19] MEDS: ROSUVASTATIN CALCIUM 40 MG TABLET PO (21:49)
[2023-02-19] MEDS: Insulin Lispro 100 UNIT/ML INSULN.PEN SC (21:54)
[2023-02-19 22:15] LABS: Bedside Glucose 303 mg/dL (74-106)
[2023-02-20] VITALS (23 sets, daily range): BP systolic 82–133; BP diastolic 49–83; PULSE 69–82; RESP 12–18; TEMP 36.1–37.2; O2SAT 94–100; BMI 21.5; BMI 22.3
[2023-02-20] MEDS: Insulin Lispro 100 UNIT/ML INSULN.PEN SC ×5 (03:20→20:53)
[2023-02-20] MEDS: 0.9% Saline Lock 10 ML Syringe IV ×3 (03:21→16:21)
[2023-02-20 03:28] LABS: Absolute Lymphocyte Count 2.81 X10^3/uL (0.83-4.51); Absolute Neutrophil Count 3.1 X10^3/uL (2.0-7.7); Basophil# 0.03 X10^3/uL; Basophil% 0.5 % (0-1); Hematocrit 32.6 % (37-47); Hemoglobin 10.9 g/dL (12.0-15.0); Lymphocyte # 2.81 X10^3/ul (0.83-4.51); Lymphocyte % 42.6 % (19-41); Mean Corp Hgb Conc 33.4 g/dL (32-36); Mean Corpuscular Hgb 30.5 pg (27.0-32.0); Mean Corpuscular Volume 91.3 fL (81-99); Mean Platelet Vol. 11.1 fl (6.2-12.0); Monocyte# 0.48 X10^3/uL; Monocyte% 7.3 % (0-10); NRBC Flagged by Analyzer 0 % (0-5); Neutrophil # 3.05 X10^3/uL (2.7-7.7); Neutrophil % 46.1 % (47-70); Platelet Count 168 K/mm3 (150-450); RBC Distribution Width CV 12.1 % (11.6-14.6); RBC Distribution Width SD 40.5 fl (35.1-43.9); Red Blood Count 3.57 M/mm3 (4.2-5.4); White Blood Count 6.6 K/mm3 (4.4-11.0)
[2023-02-20 03:40] LABS: Bedside Glucose 205 mg/dL (74-106)
[2023-02-20 04:04] LABS: ALB/GLOB Ratio 1.3 RATIO (0.9-2.4); AST(SGOT) 20 U/L (15-37); Alanine Aminotransfer ALT/SGPT 32 U/L (13-56); Albumin, Serum 3.2 g/dL (3.2-5.0); Alkaline Phosphatase 58 U/L (45-117); Anion Gap 6 (5-15); BUN 12 mg/dL (7-18); BUN/Creat Ratio 15.1 RATIO (10-20); Calcium,Total 8.2 mg/dL (8.5-10.1); Chloride 111 mmol/L (98-107); Cholesterol 124 mg/dL (200); EST Glomerular Filtration Rate 76 mL/min (>60); Est Glom Filt Rate - Afr Amer 92 mL/min (>60); Estimated Creatinine Clearance 57.31 ml/min; Globulin 2.4 g/dL (2.2-4.2); Glucose 210 mg/dL (74-106); High Density Lipoprotein 39 mg/dL; Potassium 4.1 mmol/L (3.5-5.1); Protein, Total 5.6 g/dL (6.4-8.2); Sodium Level 142 mmol/L (136-145); Triglycerides 213 mg/dL; Troponin-I HS 35 pg/mL (3.0-54.0); Very Low Density Lipoprotein 43 mg/dL (5-40)
[2023-02-20] MEDS: KCL 20MEQ in 0.9% NS 20 MEQ/1,000 ML IV.SOLN. 100 MEQ IV ×3 (05:36→23:17)
[2023-02-20 06:59] LABS: Hemoglobin A1c 13.8 % (3.8-5.6)
--- NOTE | 2023-02-20 07:24 | PCM.PN.HOSP ---
Reason for Visit Reason for Visit: Acute stroke Subjective Subjective NAH has come down from 11-1 this morning since tenecteplase was given last evening. Patient is only complaining of distal left leg pain from her fall. No abnormalities noted on exam however we will obtain an x-ray. We discussed the importance of blood pressure control, cholesterol control, and diabetic control. Her hemoglobin A1c was 13.7 and I discussed with her placing her on insulin at this time. She states she is on Trulicity at home and is compliant with her medications however control remains poor. Objective Data Objective Data Vital Signs: Vital Signs Temp Pulse Resp BP Pulse Ox O2 Del Method 98.4 F 82 15 94/49 L 96 Room Air 02/20/23 06:30 02/20/23 06:30 02/20/23 06:30 02/20/23 06:30 02/20/23 06:30 02/20/23 06:30 Oxygen Delivery Method Room Air Weight: 59 kg Body Mass Index (BMI) 22.3 Intake & Output: Intake and Output for Last 24 Hours 02/18/23 02/19/23 02/20/23 23:59 23:59 23:59 Intake Total 450 / 450 943.33 / 943.33 Output Total 550 / 550 175 / 175 Balance -100 / -100 768.33 / 768.33 Lab / Micro Data Result Diagrams: 02/20/23 03:15 02/20/23 03:15 Labs: Laboratory Results - last 24 hr 02/19/23 16:25: WBC 6.3, RBC 3.63 L, Hgb 11.5 L, Hct 33.5 L, MCV 92.3, MCH 31.7, MCHC 34.3, RDW Std Deviation 41.6, RDW Coeff of [place] 12.1, Plt Count 164, MPV 11.3, Immature Gran % (Auto) 0.500, Neut % (Auto) 54.2, Lymph % (Auto) 33.9, Lee % (Auto) 8.6, Eos % (Auto) 2.2, Baso % (Auto) 0.6, Absolute Neuts (auto) 3.4, Absolute Lymphs (auto) 2.13, Nucleated RBC % 0 02/19/23 16:25: PT 13.2, INR 1.0, APTT 23.0 L 02/19/23 16:25: Sodium 136, Potassium 4.4, Chloride 105, Carbon Dioxide 24.0, Anion Gap 7, BUN 13, Creatinine 0.86, Estim Creat Clear Calc 53.31, Est GFR (MDRD) Af Amer 84, Est GFR (MDRD) Non-Af 69, BUN/Creatinine Ratio 15.1, Glucose 245 H, Calcium 8.4 L, Troponin I High Sens 44 02/19/23 18:20: POC Glucose 283 H 02/19/23 21:46: POC Glucose 303 H 02/20/23 03:15: WBC 6.6, RBC 3.57 L, Hgb 10.9 L, Hct 32.6 L, MCV 91.3, MCH 30.5, MCHC 33.4, RDW Std Deviation 40.5, RDW Coeff of [place] 12.1, Plt Count 168, MPV 11.1, Immature Gran % (Auto) 0.500, Neut % (Auto) 46.1 L, Lymph % (Auto) 42.6 H, Lee % (Auto) 7.3, Eos % (Auto) 3.0, Baso % (Auto) 0.5, Absolute Neuts (auto) 3.1, Absolute Lymphs (auto) 2.81, Nucleated RBC % 0 02/20/23 03:15: Sodium 142, Potassium 4.1, Chloride 111 H, Carbon Dioxide 25.0, Anion Gap 6, BUN 12, Creatinine 0.80, Estim Creat Clear Calc 57.31, Est GFR (MDRD) Af Amer 92, Est GFR (MDRD) Non-Af 76, BUN/Creatinine Ratio 15.1, Glucose 210 H, Calcium 8.2 L, Total Bilirubin 0.30, AST 20, ALT 32, Alkaline Phosphatase 58, Troponin I High Sens 35, Total Protein 5.6 L, Albumin 3.2, Globulin 2.4, Albumin/Globulin Ratio 1.3, Triglycerides 213 H, Cholesterol 124, LDL Cholesterol 42, VLDL Cholesterol 43 H, HDL Cholesterol 39 L 02/20/23 03:15: Hemoglobin A1c 13.8 H 02/20/23 03:18: POC Glucose 205 H Radiography Diagnostic Testing: Radiology Impression Brain CT 02/19/23 16:02 IMPRESSION: There are no acute intracranial findings. N.B. : The above Results were Read Back by Jorge Quintanilla MD to Cezar Lee MD, and understanding confirmed on 02/19/2023 16:26:26 (ET). Electronically Signed: Jorge Quintanilla MD at 16:23 EDT , Head/Neck CTA 02/19/23 16:02 IMPRESSION: 1. There is mild atherosclerotic plaque formation of the origin of the right internal carotid artery with less than 50% cross sectional diameter stenosis. ALL ABOVE CRITERIA BY NASCET. 2. There is mild atherosclerotic plaque formation of the origin of the left internal carotid artery with less than 50% cross sectional diameter stenosis. ALL ABOVE CRITERIA BY NASCET. 3. There is calcified plaque formation of the right cavernous carotid artery, with a mild stenosis (less than 50%). ALL ABOVE CRITERIA BY NASCET. 4. There is calcified plaque formation of the left cavernous carotid artery, with a mild stenosis (less than 50%). ALL ABOVE CRITERIA BY NASCET. Electronically Signed: Jorge Quintanilla MD at 16:40 EDT , ADDENDUM: 02/19/23 1652 IMPRESSION: 1. There is mild atherosclerotic plaque formation of the origin of the right internal carotid artery with less than 50% cross sectional diameter stenosis. ALL ABOVE CRITERIA BY NASCET. 2. There is mild atherosclerotic plaque formation of the origin of the left internal carotid artery with less than 50% cross sectional diameter stenosis. ALL ABOVE CRITERIA BY NASCET. 3. There is calcified plaque formation of the right cavernous carotid artery, with a mild stenosis (less than 50%). ALL ABOVE CRITERIA BY NASCET. 4. There is calcified plaque formation of the left cavernous carotid artery, with a mild stenosis (less than 50%). ALL ABOVE CRITERIA BY NASCET. N.B. : The above Results were Read Back by Jorge Quintanilla MD to Cezar Lee MD, and understanding confirmed on 02/19/2023 16:45:25 (ET). Electronically Signed: Jorge Quintanilla MD at 16:40 EDT , Chest X-Ray 02/19/23 17:05 IMPRESSION: There are no acute findings. Electronically Signed: Jorge Quintanilla MD at 18:18 EDT , Rhythm Strip Rhythm Strip: Sinus Rhythm Rate: 75 Ectopy: None Physical Exam Const alert, oriented x3, no apparent distress and well nourished Constitutional Narrative: Upper middle-aged, white female, sitting up in bed, nursing at bedside, appears comfortable and nontoxic, patient appears much older than stated age HEENT head/scalp atraumatic and moist oral mucous membranes HEENT Narrative: Edentulous, Mallampati 2, no thrush Head and Scalp: normocephalic Eyes PERRL, EOMs intact bilaterally and conjunctivae normal Eyes Narrative: No scleral icterus Neck no lymphadenopathy, supple, no JVD and no carotid bruits Neck Narrative: Cardiac murmur radiates to bilateral carotids Resp normal respiratory effort, no retractions, no use of accessory muscles and No clear to auscultation bilaterally Resp Narrative: Few scattered end expiratory wheeze, diffusely diminished Auscultation: wheezes; Negative for rales or rhonchi Cardio regular rate, regular rhythm, S1 normal heart sound, S2 normal heart sound, no rub, no gallops and no clicks Cardio Narrative: 2 out of 6 systolic murmur GI normal to inspection, nondistended, normoactive bowel sounds and soft to palpation Extremity no clubbing, cyanosis or edema Extremity Narrative: Tenderness in posterior aspect of left lower leg in the area of the gastroc belly, no ecchymosis or swelling noted Neuro oriented x3, CN's II-XII intact bilaterally, moves all extremities and no focal motor deficits Neuro Narrative: Slight sensation deficit on the left side including face, left arm, left leg Sensorium / Orientation: oriented to person, oriented to place and oriented to time Speech: speech normal Psych affect normal Psych Narrative: Interacts normally, eye contact is good Assessment & Plan Assessment/Plan (1) Acute ischemic stroke: (2) Diabetes mellitus type 2, uncontrolled: QUALIFIERS: Glycemic state: with hyperglycemia Qualified Code(s): E11.65 - Type 2 diabetes mellitus with hyperglycemia (3) Headache: PLAN: Plan Acute stroke -Suspect right MCA based on symptoms of presentation -Initial NIH was 11 -Current NIH is 1 -Tenecteplase given yesterday approximately 5 PM -Follow-up CT pending for 5 PM today -MRI in a.m. -Hold aspirin and Plavix until 24 hours out from tenecteplase -We will consult neurology tomorrow after imaging is obtained -Continue high intensity dose statin -Needs improved blood sugar control --> A1c 13.7 on admission -PT/OT consultation once 24 hours out from tenecteplase -Discharge dispo will depend on how she does with physical therapy Headache -Was present prior to tenecteplase dosing -Refractory to Tylenol -Unable to give NSAIDs -Morphine 2 mg x 1 dose was successful at abolishing this Normocytic anemia -Slight downtrend with no signs of bleeding -Repeat CBC in a.m. -No reported blood loss at home per discussion with patient DM-2 uncontrolled -Hemoglobin A1c is 13.8 -Home Medicare zinc is Trulicity weekly, metformin 500 mg daily with dinner -Start Lantus 20 units at at bedtime -We will refer to endocrinology at discharge -Continue sliding scale -Continue Accu-Cheks -Continue cardiac/carb controlled diet Hypertension -Continue home medication -Continue to monitor blood pressure GERD -Continue Protonix Hyperlipidemia -Lipid appears well controlled -Continue high intensity dose statin with rosuvastatin 40 mg daily CAD/aortic valve disease -Status post CABG/bioprosthetic aortic valve replacement 01/25/2020 -Restart Plavix once 24 hours out from tenecteplase DVT prophylaxis -Start Lovenox once 24-hour window post tenecteplase is completed and CT is negative for any hemorrhagic transformation CODE STATUS -Full code Charges/Coding Visit Charges Inpatient E&M: 47936 Subs Hosp L2
[2023-02-20] MEDS: Pantoprazole Sodium 40 MG Tablet PO (07:54)
[2023-02-20] MEDS: Ondansetron 4 MG/2 ML Vial IV ×2 (07:56→16:22)
[2023-02-20] MEDS: Morphine 2 MG/ML Syringe IV (08:45)
--- NOTE | 2023-02-20 09:16 | CON.PCM.CC_ITS ---
Assessment & Plan Assessment/Plan (1) Acute ischemic stroke: PLAN: Probable R MCA distribution. Multiple risk factors including hyperten barb, current smoking, coronary disease, atherosclerotic disease, hypertension, hyperlipidemia, prior TIA, medication noncompliance, high stress environment. - Improved from NIH stroke score 11-5 after tenecteplase. Has residual left hemiparesis, left visual field deficit, severe left-sided pain, but her mental status and dysarthria improved. - Blood pressure is well controlled currently - Await neuro consult today. - Immediate and permanent smoking cessation - Continue high-dose statins, Plavix, metoprolol, other medication per neurology. Note that she is on enoxaparin for DVT prophylaxis. Due to her BMI 22 I recommend decreasing this to 30 mg daily, to start in a.m. - Risk reduction - MRI in the next 1 to 2 days - PT, OT - Placement for rehab, will likely need ongoing residential assistance - Social service consult for impending homelessness - Patient has had a concerning 10 pound weight loss because of poor appetite and frequent nausea vomiting in the past 6 months. She may have a occult neoplasm and have hypercoagulability. Would recommend working this up as an outpatient starting with an abdominal CT scan. (2) Diabetes mellitus type 2, uncontrolled: QUALIFIERS: Glycemic state: with hyperglycemia Qualified Code(s): E11.65 - Type 2 diabetes mellitus with hyperglycemia PLAN: Hemoglobin A1c was 13.8. Previous ER visits also document longstanding uncontrolled diabetes in a patient who frequently runs out of medications and is noncompliant. Insulin glargine 10 units with dinner and 20 units nightly, sliding scale. Glucagon as needed. - Obstipation may be related to gastroparesis and/or gut hypomotility, patient has frequent nausea vomiting and chest discomfort. -Motility studies -Abdominal pelvic CT scan to rule out mass -Consider EGD for possible esophageal pathology/stricture. -Minimize narcotics. -Pantoprazole twice daily until symptoms improve then once daily. - Management per primary team. (3) Essential (primary) hypertension: PLAN: Labetalol as needed, adjust treatments as needed. Well-controlled today. Patient has been very noncompliant with her medications, frequently runs out of medication, would be worthwhile to find out if this is an access issue or a psychosocial one. (4) Nicotine dependence: QUALIFIERS: Nicotine product type: cigarettes Substance use status: uncomplicated Qualified Code(s): F17.210 - Nicotine dependence, cigarettes, uncomplicated PLAN: Smoking cessation was recommended, patient is ready to make a quit attempt . She stated she has never been successful quitting more than 2 weeks in the past. Smoking cessation counseling was done, using the 5A method of the [facility], including but not limited to: Ask about smoking, assessment of readiness to quit, assistance on smoking cessation medications available, advised personalized message to quit, arranged followup. She is ready to make a quit attempt. She is requesting nicotine replacement therapy, which should be started as an outpatient. Due to bipolar illness she is not a candidate for Chantix. Time: <10 minutes, CPT 57237 in addition to the ICU code. (5) GERD (gastroesophageal reflux disease): PLAN: Her symptoms and recent ER visits with GI complaints suggest something more may be occurring, with chronic dysphagia nausea vomiting and weight loss suggesting esophageal stricture and/or mass, and/or intestinal vascular insuf ficiency. Further work-up is needed, timing is not urgent. If a neoplasm is present, it may contribute to hypercoagulability. -Motility studies -Abdominal pelvic CT scan to rule out mass -Consider EGD for possible esophageal pathology/stricture. -Minimize narcotics. -Pantoprazole twice daily until symptoms improve then once daily. (6) H/O coronary artery bypass surgery: PLAN: Currently stable. Inactive. (7) History of aortic valve replacement with bioprosthetic valve: PLAN: Currently stable, inactive (8) History of coronary artery stent placement: PLAN: Currently stable, on Plavix, and active. (9) Hyperlipidemia: QUALIFIERS: Hyperlipidemia type: unspecified Qualified Code(s): E78.5 - Hyperlipidemia, unspecified PLAN: Lipid profile, continue high-dose rosuvastatin These and other comorbid conditions as described in past medical history complicate care, management, recovery and prognosis. This note was generated with [employer] dictation software. It may contain incorrect words, spelling, and punctuation that were not noted in checking the note before signing. If a licensed clinician error is noted that affects patient care, contact the author. PLAN: Plan Patient has steadily improved with regard to neurologic status since her admission to the ICU, and is stable from a critical care point of view. [facility] will sign off when the patient leaves the ICU. Deferring to primary team and neurology regarding recommendations above. HPI Consult Data Date of Consult: 02/20/23 HPI Narrative Reason for Consultation: Critical care support of CVA with left hemiparesis, post tenecteplase HPI Narrative: SOFÍA CURTIS, is a 67 F current 25+ pack year smoker with hypertension, Hypertriglyceridemia, bipolar illness and poorly controlled diabetes (A1c 13.8) on metformin managed by Dr. Jeffrey in [facility] who presents with acute right-sided MCA CVA, with left hemiparesis and left visual homonymous hemianopsia. CT angiography showed mild less than 50% stenosis of the origin of the bilateral internal carotid arteries and cavernous carotid arteries. CT brain had no acute hemorrhage or infarction. Treated with tenecteplase in the ER within time wind w with rapid neurologic improvement but with residual deficit consistent with acute stroke. 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 She presented to ER with NIH stroke score 11.? Received tenecteplase and NIH score decreased to 5, admitted to the ICU for further care.? She was evaluated by telestroke service and is now awaiting her teleneurology consultation.? Today, she is able to speak with normal articulation, normal understanding and responses, complains of pain in her chest and hyperesthesia of her left side.? She continues to have left visual field deficit.? She follows commands. She states she skips 4+ of 7 days of all her medications per week, is prescribed statin, aspirin 81 mg, lisinopril, lasix 40 mg, potassium, metoprolol; smokes 1/2 -1 ppd x 49 years. PMH: DM, depression, CAD and [place] without angina, hyperlipidemia, COPD, CKD. not on inhalers, bipolar, cancer, anxiety, iron deficiency anemia, GERD without peptic ulcer disease, leg edema (takes a diuretic), prior CVA/TIA, hypertension, aortic insufficiency, pulmonary embolism, schizophrenia, dysarthria, dysphagia, falls, lives with daughter smokes, 3 dogs, 3 cats, has difficulty climbing the stairs. Emergency room visit [facility] January 22, 2023 with chest pain x2 to 3 days with shortness of breath.? She was unable to take her medicine due to nausea vomiting and obstipation.? Initial troponin was normal.? Admission was recommended for further observation but the patient refused.? Glucose was 537.? Chest x-ray was negative. Emergency room visit 12/13/2022 for 2 days of vomiting, glucose was 506, had been out of insulin 2 days. PSH: Hysterectomy, cholecystectomy, CABGx5 and AVR bioprosthetic valve 01/25/2020, stent March 15 2017x2, left heart catheterization 09/19/2017, shoulder surgery January 2021. All: penicilin hives, hydrocodone, ibuprofen and vicodin cause gastric discomfort. Fam: father CVA, htn, dm, HD.? Mother: of [place], diabetes, hypertension, hyperlipidemia 3 sibs.? Brother of heart disease age 46 Sister has diabetes cancer and hyperlipidemia. soc: Patient complained of marked stress living in her current environment.? Daughter and pt are renting space in a home with an nonrelated alcoholic man whose home was recent foreclosed, she is looking forward to going to a [place] to be away from drugs Denies any use of EtOH, drugs.? 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 ROS: weight decreasing, 10 lbs in past 6 months, no appetite.? Has constipation. ?Frequently has GI complaints with nausea and vomiting no blood, PUD, has dyspepsia with pepto bismol. [facility] Medical History (Updated 02/20/23 @ 10:[address] Mu Estrada MD) Anxiety and depression Atherosclerotic heart disease of [place] coronary artery without angina pectoris Biceps tendonitis on left Bipolar disorder Cancer CKD (chronic kidney disease) stage 3, GFR 30-59 ml/min Constipation COPD (chronic obstructive pulmonary disease) CVA (cerebral vascular accident) Diabetes Dysarthria Dysphagia Essential (primary) hypertension Fe deficiency anemia Former smoker GERD (gastroesophageal reflux disease) Hyperlipidemia Hypertension Left-sided weakness Myocardial infarct Nicotine dependence Nonrheumatic aortic (valve) insufficiency Pulmonary embolism Schizophrenia Sleep apnea TIA (transient ischemic attack) (12/2018) Type 2 diabetes mellitus Home Medications nitroglycerin 0.4 mg sublingual tablet 0.4 mg SUBLINGUAL Q5M PRN Chest Pain 09/28/17 [History Last Taken 03/01/21] metformin 1,000 mg tablet 500 mg PO DINNER diabetes 11/17/18 [History Last Taken 05/28/21 09:00] clopidogrel 75 mg tablet 75 mg PO DAILY anti platelet 10/30/19 [History Last Taken 05/28/21 09:00] dulaglutide 1.5 mg/0.5 mL subcutaneous pen injector (Trulicity) 1.5 mg subcut QWEEK 02/19/23 [History Last Taken Unknown] furosemide 20 mg tablet 20 mg PO DAILY 02/19/23 [History Last Taken Unknown] lisinopril 5 mg tablet 5 mg PO DAILY 02/19/23 [History Last Taken Unknown] metoprolol tartrate 25 mg tablet 25 mg PO BID 02/19/23 [History Last Taken Unknown] pantoprazole 40 mg tablet,delayed release 40 mg PO DAILY 02/19/23 [History Last Taken Unknown] rosuvastatin 40 mg tablet 40 mg PO DAILY 02/19/23 [History Last Taken Unknown] Allergy/AdvReac Type Severity Reaction Status Date / Time Penicillins Allergy Hives Verified 02/19/23 15:37 hydrocodone bitartrate AdvReac Vomiting Verified 02/19/23 15:37 [From Vicodin] ibuprofen AdvReac Vomiting Verified 02/19/23 15:37 Family History Father Heart disease Hypertension Diabetes Hyperlipidemia Mother Diabetes Heart disease Hypertension Hyperlipidemia Brother Heart disease Age 46 Sister Diabetes Cancer Hyperlipidemia Surgical History H/O coronary artery bypass surgery (01/25/20) H/O: hysterectomy History of aortic valve replacement with bioprosthetic valve (01/25/20) History of coronary artery stent placement (03/15/17) History of coronary artery stent placement History of left heart catheterization (09/19/17) History of shoulder surgery (01/2021) Hx of cholecystectomy Social History Smoking Status: Current every day smoker tobacco type: cigarettes alcohol intake: never substance use type: does not use Physical Exam Narrative Well-developed slender BMI 22.3, no acute distress. She has left-sided neglect, interviewed from the right side. HEENT normocephalic atraumatic extraoculars are intact pupils 2 mm equal and reactive bilaterally. Anicteric, sclera noninjected. Visual field testing shows a complete left homonymous hemianopsia Neck is supple with no JVD thyromegaly mass or bruit Cardiac normal S1-S2 with a mild murmur prior to S2 on exam consistent with bioprosthetic valve. Well-healed median sternotomy scar. No pacemaker in place. Lungs are clear bilaterally mildly hyperinflated no wheezes rales or rhonchi, no cough during visit. Breathing is unlabored, chest is symmetrical. Trachea is midline. Abdomen is soft, nontender, except mild midepigastric discomfort without rebound. No organomegaly, gallbladder absent. Extremities have no clubbing cyanosis or edema. Neuro: Eye exam as above, cranial nerves intact. Tongue is midline. Mild left facial droop. - Strength is 5 out of 5 on the right 4 out of 5 on the left - No Romberg testing - Arm raising and leg raises with eyes closed shows downward drift on the left with both upper and lower extremity - Decreased bilingual teacher on the left, -Speech is normal, swallowing at bedside reported normal by nursing. - Nose to finger shows ataxia on the left, intact on the right. - I did not do memory, reading, object recognition or picture card cognitive tests, see neurologist exam to follow this note. Skin is warm and dry Medical Records Data Attestation: I reviewed the patient's medical records Lab / Micro Data Attestation: I reviewed the patient's lab results. Lab results narrative: Summary of CT angiogram of the brain 02/19/2023: There is mild less than 50% stenosis of the bilateral origin of the internal carotid arteries, and cavernous carotid arteries. Chest x-ray AP portable 01/22/2023 had stable sternotomy wires, clips, no acute infiltrates or effusions, without significant hyperinflation. Brain CT scan 02/19/2023 showed no acute intracranial findings.? No hemorrhage or acute infarction.? Normal sinuses.? Ventricles are normal for patient age. Result Diagrams: 02/20/23 03:15 02/20/23 03:15 Labs: Laboratory Results - last 24 hr 02/19/23 16:25: WBC 6.3, RBC 3.63 L, Hgb 11.5 L, Hct 33.5 L, MCV 92.3, MCH 31.7, MCHC 34.3, RDW Std Deviation 41.6, RDW Coeff of [place] 12.1, Plt Count 164, MPV 11.3, Immature Gran % (Auto) 0.500, Neut % (Auto) 54.2, Lymph % (Auto) 33.9, [place] % (Auto) 8.6, Eos % (Auto) 2.2, Baso % (Auto) 0.6, Absolute Neuts (auto) 3.4, Absolute Lymphs (auto) 2.13, Nucleated RBC % 0 02/19/23 16:25: PT 13.2, INR 1.0, APTT 23.0 L 02/19/23 16:25: Sodium 136, Potassium 4.4, Chloride 105, Carbon Dioxide 24.0, Anion Gap 7, BUN 13, Creatinine 0.86, Estim Creat Clear Calc 53.31, Est GFR (MDRD) Af Amer 84, Est GFR (MDRD) Non-Af 69, BUN/Creatinine Ratio 15.1, Glucose 245 H, Calcium 8.4 L, Troponin I High Sens 44 02/19/23 18:20: POC Glucose 283 H 02/19/23 21:46: POC Glucose 303 H 02/20/23 03:15: WBC 6.6, RBC 3.57 L, Hgb 10.9 L, Hct 32.6 L, MCV 91.3, MCH 30.5, MCHC 33.4, RDW Std Deviation 40.5, RDW Coeff of [place] 12.1, Plt Count 168, MPV 11.1, Immature Gran % (Auto) 0.500, Neut % (Auto) 46.1 L, Lymph % (Auto) 42.6 H, [place] % (Auto) 7.3, Eos % (Auto) 3.0, Baso % (Auto) 0.5, Absolute Neuts (auto) 3.1, Absolute Lymphs (auto) 2.81, Nucleated RBC % 0 02/20/23 03:15: Sodium 142, Potassium 4.1, Chloride 111 H, Carbon Dioxide 25.0, Anion Gap 6, BUN 12, Creatinine 0.80, Estim Creat Clear Calc 57.31, Est GFR (MDRD) Af Amer 92, Est GFR (MDRD) Non-Af 76, BUN/Creatinine Ratio 15.1, Glucose 210 H, Calcium 8.2 L, Total Bilirubin 0.30, AST 20, ALT 32, Alkaline Phosphatase 58, Troponin I High Sens 35, Total Protein 5.6 L, Albumin 3.2, Globulin 2.4, Albumin/Globulin Ratio 1.3, Triglycerides 213 H, Cholesterol 124, LDL Cholesterol 42, VLDL Cholesterol 43 H, HDL Cholesterol 39 L 02/20/23 03:15: Hemoglobin A1c 13.8 H 02/20/23 03:18: POC Glucose 205 H Rhythm Strip Rhythm Strip: Sinus Rhythm Rate: 75 Ectopy: None Radiology Impression Brain CT 02/19/23 16:02 IMPRESSION: There are no acute intracranial findings. N.B. : The above Results were Read Back by Jorge Quintanilla MD to Cezar Lee MD, and understanding confirmed on 02/19/2023 16:26:26 (ET). Electronically Signed: Jorge Quintanilla MD at 16:23 EDT , Head/Neck CTA 02/19/23 16:02 IMPRESSION: 1. There is mild atherosclerotic plaque formation of the origin of the right internal carotid artery with less than 50% cross sectional diameter stenosis. ALL ABOVE CRITERIA BY NASCET. 2. There is mild atherosclerotic plaque formation of the origin of the left internal carotid artery with less than 50% cross sectional diameter stenosis. ALL ABOVE CRITERIA BY NASCET. 3. There is calcified plaque formation of the right cavernous carotid artery, with a mild stenosis (less than 50%). ALL ABOVE CRITERIA BY NASCET. 4. There is calcified plaque formation of the left cavernous carotid artery, with a mild stenosis (less than 50%). ALL ABOVE CRITERIA BY NASCET. Electronically Signed: Jorge Quintanilla MD at 16:40 EDT , ADDENDUM: 02/19/23 1652 IMPRESSION: 1. There is mild atherosclerotic plaque formation of the origin of the right internal carotid artery with less than 50% cross sectional diameter stenosis. ALL ABOVE CRITERIA BY NASCET. 2. There is mild atherosclerotic plaque formation of the origin of the left internal carotid artery with less than 50% cross sectional diameter stenosis. ALL ABOVE CRITERIA BY NASCET. 3. There is calcified plaque formation of the right cavernous carotid artery, with a mild stenosis (less than 50%). ALL ABOVE CRITERIA BY NASCET. 4. There is calcified plaque formation of the left cavernous carotid artery, with a mild stenosis (less than 50%). ALL ABOVE CRITERIA BY NASCET. N.B. : The above Results were Read Back by Jorge Quintanilla MD to Cezar Lee MD, and understanding confirmed on 02/19/2023 16:45:25 (ET). Electronically Signed: Jorge Quintanilla MD at 16:40 EDT , Chest X-Ray 02/19/23 17:05 IMPRESSION: There are no acute findings. Electronically Signed: Jorge Quintanilla MD at 18:18 EDT , Charges/Coding Visit Charges Inpatient E&M: 35090 Init Hosp L3
[2023-02-20] MEDS: Glucerna Shake 120 ML LIQUID PO ×2 (09:59→13:36)
--- NOTE | 2023-02-20 10:15 | RAD_ITS ---
STUDY: X-RAY - LEFT TIBIA AND FIBULA REASON FOR EXAM: Female, 67 years old. Pain TECHNIQUE: 2 view(s) of the tibia and fibula were obtained. COMPARISON: None. FINDINGS: Normal visualized tibia. Normal visualized fibula. The soft tissue structures are unremarkable. RAD/Tibia & Fibula 2 Views IMPRESSION: Normal x-ray examination of the tibia and fibula. Electronically Signed: Trenton Sanchez MD at 11:56 EDT ,
[2023-02-20 12:01] LABS: Bedside Glucose 183 mg/dL (74-106)
[2023-02-20 12:25] LABS: Bedside Glucose 208 mg/dL (74-106)
[2023-02-20] MEDS: traMADol 50 MG Tablet PO (13:38)
[2023-02-20 16:41] LABS: Bedside Glucose 228 mg/dL (74-106)
--- NOTE | 2023-02-20 17:00 | CT_ITS ---
STUDY: CT BRAIN WITHOUT CONTRAST REASON FOR EXAM: Female, 67 years old. 24 hour post tenectaplase TECHNIQUE: Transaxial CT imaging of the brain was performed without administration of intravenous contrast material. Individualized dose optimization techniques were used for this CT. COMPARISON: 02.19.23 FINDINGS: Normal calvarium. Normal soft tissues. Normal size ventricles and extra-axial spaces for the patient''s age. Normal white matter tracts of the cerebral hemispheres. Normal basal ganglia and thalami. Normal brainstem. Normal cerebellum. There is no intracranial hemorrhage. There are no findings of an acute ischemic infarction. Normal visualized paranasal sinuses. ASPECTS 10 CT/Brain/Head without Contrast IMPRESSION: There are no acute intracranial findings. Electronically Signed: Jorge Quintanilla MD at 18:20 EDT ,
--- NOTE | 2023-02-20 18:54 | NURSING ---
Pt to PCU from ICU at 1840. [facility] completed with [employer].
[2023-02-20] MEDS: Insulin Glargine-YFGN 100 UNIT/ML Pen 20 UNIT SC (20:52)
[2023-02-20] MEDS: Atorvastatin Calcium 80 MG Tablet PO (20:52)
[2023-02-20] MEDS: MELATONIN 3 MG TABLET PO (22:02)
[2023-02-20] MEDS: Aspirin 81 MG TAB.CHEW PO (22:02)
[2023-02-20 22:16] LABS: Bedside Glucose 261 mg/dL (74-106)
[2023-02-21] VITALS (7 sets, daily range): BP systolic 113–145; BP diastolic 55–66; PULSE 66–76; RESP 16–18; TEMP 35.8–36.8; O2SAT 96–100; BMI 22.5
[2023-02-21] MEDS: Insulin Lispro 100 UNIT/ML INSULN.PEN SC ×4 (02:36→21:10)
[2023-02-21 02:56] LABS: Bedside Glucose 234 mg/dL (74-106)
[2023-02-21 06:11] LABS: Absolute Lymphocyte Count 2.66 X10^3/uL (0.83-4.51); Absolute Neutrophil Count 2.4 X10^3/uL (2.0-7.7); Basophil# 0.04 X10^3/uL; Basophil% 0.7 % (0-1); Eosinophil# 0.23 X10^3/uL; Eosinophils% 3.9 % (0-5); Hematocrit 30.8 % (37-47); Hemoglobin 10.2 g/dL (12.0-15.0); Lymphocyte # 2.66 X10^3/ul (0.83-4.51); Lymphocyte % 44.9 % (19-41); Mean Corp Hgb Conc 33.1 g/dL (32-36); Mean Corpuscular Hgb 31.1 pg (27.0-32.0); Mean Corpuscular Volume 93.9 fL (81-99); Mean Platelet Vol. 10.9 fl (6.2-12.0); Monocyte# 0.55 X10^3/uL; Monocyte% 9.3 % (0-10); NRBC Flagged by Analyzer 0 % (0-5); Neutrophil # 2.41 X10^3/uL (2.7-7.7); Neutrophil % 40.7 % (47-70); Platelet Count 142 K/mm3 (150-450); RBC Distribution Width CV 12.2 % (11.6-14.6); RBC Distribution Width SD 42.1 fl (35.1-43.9); Red Blood Count 3.28 M/mm3 (4.2-5.4); White Blood Count 5.9 K/mm3 (4.4-11.0)
[2023-02-21 06:45] LABS: Bedside Glucose 82 mg/dL (74-106)
[2023-02-21 06:52] LABS: Anion Gap 3 (5-15); BUN 10 mg/dL (7-18); BUN/Creat Ratio 15.2 RATIO (10-20); Chloride 115 mmol/L (98-107); Creatinine, Serum 0.66 mg/dL (0.55-1.02); EST Glomerular Filtration Rate 95 mL/min (>60); Est Glom Filt Rate - Afr Amer 115 mL/min (>60); Estimated Creatinine Clearance 45.85 ml/min; Glucose 87 mg/dL (74-106); Magnesium 1.6 mg/dL (1.6-2.6); Phosphorus 2.4 mg/dL (2.5-4.9); Potassium 4.6 mmol/L (3.5-5.1); Sodium Level 141 mmol/L (136-145); Thyroid Stim Hormone (TSH) 1.28 uIU/mL (0.358-3.74)
[2023-02-21] MEDS: Clopidogrel Bisulfate 75 MG Tablet PO (08:58)
[2023-02-21] MEDS: Pantoprazole Sodium 40 MG Tablet PO (08:58)
[2023-02-21] MEDS: Enoxaparin 30 MG/0.3 ML Syringe SC (08:59)
--- NOTE | 2023-02-21 09:07 | PN.HOSP_ITS ---
Reason for Visit Reason for Visit: Acute stroke Subjective Subjective No issues overnight. 24-hour CT was negative for any hemorrhagic transformation. MRI today is pending. Plavix and aspirin have been initiated. Awaiting physical therapy/Occupational Therapy to evaluate the patient. NIH is 2 for sensory and some left lower extremity limb ataxia. Patient states she was able to get to the bathroom and felt a little bit off but did not have too much of a problem. Still complaining of ongoing pain in her left calf. Headache has remained resolved. Objective Data Objective Data Vital Signs: Vital Signs Temp Pulse Resp BP Pulse Ox O2 Del Method 96.5 F L 66 18 138/64 H 100 Room Air 02/21/23 06:00 02/21/23 06:00 02/21/23 06:00 02/21/23 06:00 02/21/23 06:00 02/21/23 08:51 Oxygen Delivery Method Room Air Weight: 59.5 kg Body Mass Index (BMI) 22.5 Intake & Output: Intake and Output for Last 24 Hours 02/19/23 02/20/23 02/21/23 23:59 23:59 23:59 Intake Total 450 / 450 3071.66 / 3271.66 200 / 200 Output Total 550 / 550 600 / 600 Balance -100 / -100 2471.66 / 2671.66 200 / 200 Medical Nutrition Assessment Dietitian: Malnutrition Criteria Met Start: 02/20/23 10:32 Freq: Status: Active Protocol: Document 02/20/23 10:32 AG (Rec: 02/20/23 10:32 [id number]) Nutrition Malnutrition Evidence of Malnutrition Exists Yes Malnutrition (severe): Acute Illness/Injury Evidenced By Suboptimal Energy Intake ( Severe),Weight Loss (Severe) Clinical Problem Acute Disease or Injury Related Malnutrition Etiology severe, acute malnutrition related to inadequate energy intake Signs/Symptoms as evidenced by pt reports of unintentional 8.9#/6.4% wt loss < 1 month; estimated PO intake meeting <50% of estimated energy needs > 5 days Status Active Problem Recommendation Dietitian Recommendations/Changes continue carbohydrate controlled diet; will add cardiac diet- texture/ consistency modifications per CARD LACER JACQUARD. Continue 120mL glucerna 4x/day given evidence of malnutrition. Will monitor PO intake/wt and liberalize diet as needed. Lab / Micro Data Result Diagrams: 02/21/23 05:50 02/21/23 05:50 Labs: Laboratory Results - last 24 hr 02/20/23 07:44: POC Glucose 208 H 02/20/23 11:35: POC Glucose 183 H 02/20/23 16:21: POC Glucose 228 H 02/20/23 20:51: POC Glucose 261 H 02/21/23 02:35: POC Glucose 234 H 02/21/23 05:50: WBC 5.9, RBC 3.28 L, Hgb 10.2 L, Hct 30.8 L, MCV 93.9, MCH 31.1, MCHC 33.1, RDW Std Deviation 42.1, RDW Coeff of [place] 12.2, Plt Count 142 L, MPV 10.9, Immature Gran % (Auto) 0.500, Neut % (Auto) 40.7 L, Lymph % (Auto) 44.9 H, [place] % (Auto) 9.3, Eos % (Auto) 3.9, Baso % (Auto) 0.7, Absolute Neuts (auto) 2.4, Absolute Lymphs (auto) 2.66, Nucleated RBC % 0 02/21/23 05:50: Sodium 141, Potassium 4.6, Chloride 115 H, Carbon Dioxide 23.0, Anion Gap 3 L, BUN 10, Creatinine 0.66, Estim Creat Clear Calc 45.85, Est GFR (MDRD) Af Amer 115, Est GFR (MDRD) Non-Af 95, BUN/Creatinine Ratio 15.2, Glucose 87, Calcium 8.0 L, Phosphorus 2.4 L, Magnesium 1.6, TSH 1.28 02/21/23 06:20: POC Glucose 82 Radiography Diagnostic Testing: Radiology Impression Tibia/Fibula X-Ray 02/20/23 10:15 IMPRESSION: Normal x-ray examination of the tibia and fibula. Electronically Signed: Trenton Sanchez MD at 11:56 EDT , Brain CT 02/20/23 17:00 IMPRESSION: There are no acute intracranial findings. Electronically Signed: Jorge Quintanilla MD at 18:20 EDT , Rhythm Strip Rhythm Strip: Sinus Rhythm Rate: 75 Ectopy: None Physical Exam Const alert, oriented x3, no apparent distress and well nourished Constitutional Narrative: Upper middle-aged, white female, sitting up in bed, nursing at bedside, appears comfortable and nontoxic, patient appears much older than stated age HEENT head/scalp atraumatic and moist oral mucous membranes HEENT Narrative: edentulous, Mallampati is 2 Head and Scalp: normocephalic Resp normal respiratory effort, no retractions, no use of accessory muscles and No clear to auscultation bilaterally Resp Narrative: Diminished but clear Auscultation: Negative for rales, rhonchi or wheezes Cardio regular rate, regular rhythm, S1 normal heart sound, S2 normal heart sound, no rub, no gallops and no clicks Cardio Narrative: 2 out of 6 systolic murmur GI normal to inspection, nondistended, normoactive bowel sounds and soft to palpation Extremity no clubbing, cyanosis or edema Extremity Narrative: Tenderness remains in posterior aspect of left lower leg in the area of the gastroc belly, no ecchymosis or swelling noted Neuro oriented x3, moves all extremities and no focal motor deficits Neuro Narrative: Slight sensation deficit on the left side including face, left arm, left leg, slight difficulties with motor planning and left lower extremity in the form of mild limb ataxia Sensorium / Orientation: oriented to person, oriented to place and oriented to time Coordination / Balance: Negative for acan-rk-nfxv test normal Speech: speech normal Psych affect normal Psych Narrative: Interacts normally, eye contact is good Assessment & Plan Assessment/Plan (1) Acute ischemic stroke: (2) Diabetes mellitus type 2, uncontrolled: QUALIFIERS: Glycemic state: with hyperglycemia Qualified Code(s): E11.65 - Type 2 diabetes mellitus with hyperglycemia (3) Headache: (4) Heart murmur: PLAN: Plan Acute stroke -Suspect right MCA based on symptoms of presentation -Initial NIH was 11 -Current NIH is 2 for left lower extremity ataxia and sensory deficits on the left side -Tenecteplase given 02/19/2023 approximately 5 PM -Follow-up CT at 24 hours post tenecteplase was unremarkable -MRI pending -Echo pending -Aspirin and Plavix initiated last evening -Continue high intensity dose statin -Needs improved blood sugar control --> A1c 13.7 on admission -PT/OT to evaluate the patient today to ascertain disposition for discharge -Consult neurology after imaging has been obtained -Discharge dispo will depend on how she does with physical therapy/Occupational Therapy Headache -Resolved Normocytic anemia -Relatively stable -Repeat CBC in a.m. DM-2 uncontrolled -Hemoglobin A1c is 13.8 -Home Medicare zinc is Trulicity weekly, metformin 500 mg daily with dinner -Continue Lantus 20 units at at bedtime--> fasting blood sugar today is 87 -Monitor blood sugar throughout the day today -We will refer to endocrinology at discharge -Continue sliding scale -Continue Accu-Cheks -Continue cardiac/carb controlled diet Hypertension -Continue home medication -Continue to monitor blood pressure GERD -Continue Protonix Hyperlipidemia -Lipid appears well controlled -Continue high intensity dose statin with rosuvastatin 40 mg daily CAD/aortic valve disease/cardiac murmur -Status post CABG/bioprosthetic aortic valve replacement 01/25/2020 -Plavix and aspirin initiated -Continue other home medications -Patient with heart murmur on exam and sounds to be aortic with radiation to bilateral carotids and loudest at right upper sternal border -Echocardiogram is pending DVT prophylaxis -Lovenox 30 mg daily CODE STATUS -Full code Charges/Coding Visit Charges Inpatient E&M: 36909 Subs Hosp L2
[2023-02-21] MEDS: LORazepam 1 MG Tablet PO (09:21)
[2023-02-21] MEDS: Ondansetron 8 MG Tablet PO (09:21)
[2023-02-21] MEDS: KCL 20MEQ in 0.9% NS 20 MEQ/1,000 ML IV.SOLN. 100 MEQ IV ×2 (09:26→21:59)
--- NOTE | 2023-02-21 09:45 | CASEMGMT ---
RN GIANCARLO ATTENDING PHYSICIAN CM to room to meet with patient for initial transition planning/care coordination assessment. RN GIANCARLO introduced self and role at [facility].? Pt voices understanding and consents to assessment at this time.? Pt resting in bed in no distress at this time.? Pt is A/O at this time and answers all questions appropriately.?? Care providers, pharmacy, and demographics verified/updated at this time. PCP: Dr Jeffrey Specialists: Pt states sees dishwashing machine operator in [place], but does not remember their name. She states Dr Jeffrey referred her to see a ornamental iron erector in [place] about a month ago, but states she never made the appt and state she forgets why. Preferred Pharmacy: [facility] Retail Insurance: [employer] Prescription Benefit:?Yes Living Will/HPOA:? Pt states she has done HCPOA and that her dtr, Mercy, is her POA. The HCPOA on e-file lists her sister, Cindy, and her , as 1st alternative. Pt states this is old paperwork, as both her sister and have . She states she has completed new POA and her sister, Mercy, is listed and states she brought them in this admission. Noted in pt's chart HCPOA paperwork, but it is not filled out correctly. Mary TEJEDA, made aware and to f/u with pt. LNOK: Dtr, Mercy. Dtr, Lala Living Arrangements: Lives w/dtr, Lala, in 2-story home w/no steps to enter. Pt states her bedroom is on the 2nd floor and bathroom is on main floor. Pt states she is usually indep w/ADL's. She states Lala works during the day, so she is home alone. She states she does not drive and that Lala does not get groceries so she has to walk to get food and often goes to [facility] or buys food @ [employer] and will mostly get microwaveable meals. She states she does not take her meds like she is supposed to and does not eat right. She also reports not checking her BS's like she should and she states she does not know why she is not compliant, stating, I don't know. I'm just not. She reports they have not had any running water for a couple of weeks d/t it got turned off. She states, I can't live like this. I don't want to go back there. I'm not eating right and I'm not taking my meds. She states she wants to go somewhere permanently where someone will take care of her. NIKHIL, Mary, made aware. Pt states she has never applied for [employer] before and states she gets her late husbands pension and SSI. Transportation: Pt states she does not drive and often walks places. Her dtr does drive. DME: ?States has the following DME:? pt reports using no AD to ambulate. She states has a glucometer, but states, I don't check my sugars like I'm supposed to. Pt states no need for further DME at this time.? HHC/SNF: No hx of SNF, but has had HHC in the past. PLAN: ?TBD. PT/OT evals pending. NIKHIL referral. Jamil BARNETT RN CM
--- NOTE | 2023-02-21 11:22 | CASEMGMT ---
Social Work SW completed PHQ-9 w/pt as she may have had a stroke. Pt scored an 8, indicating mild depression. In speaking w/pt, she states does have depression. She denies being suicidal at this time. SW inquired if pt is on any medication, she states her PCP prescribed her something a couple of weeks ago, but she does not know if it's helping as she has trouble remembering to take her medication. Pt does not remember what medication she is taking. Pt states she has not taken medication in the past. Pt states she did try counseling a couple of years ago at [facility] for about a month, did not find it helpful. Pt is open to counseling again however, and agreeable to try with [facility] again. SW explained will make an appointment. SW spoke w/pt about her housing situation. Pt states she and her daughter are living in the home of a friend of her daughter's. Pt states he is not staying there any longer. She explains he is an alcoholic. Pt states the water has been off for a couple of weeks and he does not plan to put the water back on. She states he has not paid the mortgage for months. Pt was living in [place] until two months ago, and then moved in w/her daughter. She states she could go back to where she was living but there is a meth house behind it and does not want to go there. Pt states wants to live some place where she can get help. Upon further discussion, pt does not need help w/cooking, cleaning, personal care. Pt needs help with remembering to take her meds. She does not drive, walks everywhere, needs help w/transportation. We talked about applying for Medicaid, and then looking into possibly assisted living. At this time pt may not need assisted living but may in the future. We spoke about completing an application for [facility] to see if she may qualify for any services through them, pt agreeable to this. SW gave pt information on [employer] and [employer], in the event the person who owns the home wants help with getting the water back on. SW gave the pt information for food resources, [employer] [facility], Apartments available in the area, [employer] for housing assistance, [employer], and mental health resources. Pt would like also to complete Medicaid application and LW/POA SW explained will make appointment for [facility] and complete and send in the application for [facility], and will come back to help w/Medicaid jose and LW/POA. Pt states understanding. SW completed and faxed in referral to [facility]. SW called [facility] set up appt for March 14 at 12:30pm. SW will give pt this information, and follow up for LW/POA and Medicaid. SHARRI Lao
--- NOTE | 2023-02-21 12:03 | NURSING ---
1000 NIHSS and VS late d/t pt being off floor for MRI.
--- NOTE | 2023-02-21 12:13 | CASEMGMT ---
Social Work SW met w/pt again, gave her the information for [facility] appt on March 14 at 12:30, SW also put it in her discharge instructions. Pt worked w/therapy, pt states it did not go well. Pt is interested in going somewhere for rehab. SW explained will bring her a list of facilities. SW offered to assist w/Medicaid application and LW/POA. Pt is too tired now. Also, we discussed who she would want for POA, she needs to think about it. SW can assist as time allows to complete LW/POA once pt knows who she would like to put down. SW then did provide a list via [employer] to pt of long-term facilities in pt's insurance network, preferred geographic area, and complete with quality and resource use data. Pt would like 1. [facility], 2. [facility], and 3. [facility]. SW explained the referral process to pt, and explained we will let her know as soon as we know. SW did call [facility] and left a message. SW will continue to follow. SHARRI Lao
[2023-02-21 12:16] LABS: Bedside Glucose 204 mg/dL (74-106)
--- NOTE | 2023-02-21 12:24 | CASEMGMT ---
Social Work POA for healthcare w/LW provision initialed are scanned into summary tab of echart, pt has her sister Cindy listed as POA. There are paper POA forms in the paper chart from 2021, but they are not valid as they do not have pt's name on the first page, they have pt's daughter's name. SW offered to complete the documents here but pt is not sure who she wants to put down. SW will ask again as time allows. SHARRI Lao
--- NOTE | 2023-02-21 13:36 | CASEMGMT ---
Discharge Planning Referral was made to [facility] via [facility]. Nica Calles
--- NOTE | 2023-02-21 16:44 | CASEMGMT ---
Discharge Planning [facility] accepted patient. SW notified. Nica Calles
[2023-02-21] MEDS: Acetaminophen 325 MG Tablet 650 MG PO (17:43)
[2023-02-21 18:06] LABS: Bedside Glucose 161 mg/dL (74-106)
[2023-02-21] MEDS: Insulin Glargine-YFGN 100 UNIT/ML Pen 20 UNIT SC (21:11)
[2023-02-21] MEDS: Glucerna Shake 120 ML LIQUID PO (21:59)
[2023-02-21] MEDS: MELATONIN 3 MG TABLET PO (21:59)
[2023-02-21 22:10] LABS: Bedside Glucose 199 mg/dL (74-106)
[2023-02-22 03:11] VITALS: BMI 22.5
[2023-02-22 03:16] VITALS: BP 150/66; PULSE 70; RESP 16; TEMP 36.6; O2SAT 100
[2023-02-22] MEDS: Insulin Lispro 100 UNIT/ML INSULN.PEN SC ×2 (03:17→12:20)
[2023-02-22 04:46] LABS: Bedside Glucose 158 mg/dL (74-106)
[2023-02-22 05:00] VITALS: BMI 22.5
--- NOTE | 2023-02-22 06:38 | PCM.PN.BLA ---
Progress Note Per nurse patient is asking for pain medicines and all what is ordered Tylenol but says she needs something stronger. From further inquiries on pain location and duration nurse reported the pain is located at patient's lower back; is been off and on all night and severity is 9 out of 10. Heating pad and massage ordered. Unless requesting stronger as needed pain medication as well. Discussed with nurse that attempts should be made at massaging and heating pad. Per nurse patient was taking Tylenol during previous shift and it did not help her so nurse doubts how a heating pad could help patient. Discussed with nursing that since it is not trauma and patient was not admitted for pain conservative measures should be tried at this time as this could even be pain from the bed that patient is lying on.. If massaging and heating pad does not help escalate to NSAIDs. Of note GFR is a 95. With continuous NSAIDs consider PPIs as patient is a Geriatric patient.
[2023-02-22 07:15] LABS: Anion Gap 4 (5-15); BUN 7 mg/dL (7-18); BUN/Creat Ratio 10.7 RATIO (10-20); Calcium,Total 8.4 mg/dL (8.5-10.1); Chloride 115 mmol/L (98-107); Creatinine, Serum 0.65 mg/dL (0.55-1.02); EST Glomerular Filtration Rate 95 mL/min (>60); Est Glom Filt Rate - Afr Amer 115 mL/min (>60); Estimated Creatinine Clearance 45.85 ml/min; Glucose 104 mg/dL (74-106); Potassium 4.7 mmol/L (3.5-5.1); Sodium Level 143 mmol/L (136-145)
--- NOTE | 2023-02-22 07:43 | CASEMGMT ---
SW asked [facility] to please start pre-cert as patient is ready for discharge. Carmen Franco GAS PROCESSING PLANT OPERATOR MAURO
[2023-02-22] MEDS: KCL 20MEQ in 0.9% NS 20 MEQ/1,000 ML IV.SOLN. 100 MEQ IV (07:56)
[2023-02-22] MEDS: Pantoprazole Sodium 40 MG Tablet PO (07:57)
[2023-02-22] MEDS: Enoxaparin 30 MG/0.3 ML Syringe SC (07:58)
[2023-02-22] MEDS: Clopidogrel Bisulfate 75 MG Tablet PO (07:58)
[2023-02-22 08:36] LABS: Bedside Glucose 105 mg/dL (74-106)
[2023-02-22] MEDS: Ketorolac 15 MG/ML Vial IV (09:05)
[2023-02-22] MEDS: Ondansetron 8 MG Tablet PO (09:05)
[2023-02-22] MEDS: 0.9% Saline Lock 10 ML Syringe IV (09:06)
--- NOTE | 2023-02-22 09:40 | PCM.PN.HOSP ---
Reason for Visit Reason for Visit: Syncope, left-sided sensory changes and weakness lower extremity Subjective Subjective Patient states she did not sleep well last night and is currently having some back pain. Neurological status has remained stable. I did discuss with her the fact that neurology did not think she had a stroke and was unclear on her neurological changes on presentation. It is noted in the history that her symptoms were resolved with distraction and per discussion with neurology yesterday the tremor that she had complained about resolved with distraction as well. Objective Data Objective Data Vital Signs: Vital Signs Temp Pulse Resp BP Pulse Ox O2 Del Method 97.8 F 70 16 150/66 H 100 Room Air 02/22/23 03:16 02/22/23 03:16 02/22/23 03:16 02/22/23 03:16 02/22/23 03:16 02/22/23 03:16 Oxygen Delivery Method Room Air Weight: 59.5 kg Body Mass Index (BMI) 22.5 Intake & Output: Intake and Output for Last 24 Hours 02/20/23 02/21/23 02/22/23 23:59 23:59 23:59 Intake Total 3071.66 / 3271.66 3200.00 / 3200.00 995 / 995 Output Total 600 / 600 Balance 2471.66 / 2671.66 3200.00 / 3200.00 995 / 995 Medical Nutrition Assessment Dietitian: Malnutrition Criteria Met Start: 02/20/23 10:32 Freq: Status: Active Protocol: Document 02/20/23 10:32 AG (Rec: 02/20/23 10:32 AG [id number]) Nutrition Malnutrition Evidence of Malnutrition Exists Yes Malnutrition (severe): Acute Illness/Injury Evidenced By Suboptimal Energy Intake ( Severe),Weight Loss (Severe) Clinical Problem Acute Disease or Injury Related Malnutrition Etiology severe, acute malnutrition related to inadequate energy intake Signs/Symptoms as evidenced by pt reports of unintentional 8.9#/6.4% wt loss < 1 month; estimated PO intake meeting <50% of estimated energy needs > 5 days Status Active Problem Recommendation Dietitian Recommendations/Changes continue carbohydrate controlled diet; will add cardiac diet- texture/ consistency modifications per PHOTOENGRAVING RETOUCHER. Continue 120mL glucerna 4x/day given evidence of malnutrition. Will monitor PO intake/wt and liberalize diet as needed. Lab / Micro Data Result Diagrams: 02/21/23 05:50 02/22/23 06:25 Labs: Laboratory Results - last 24 hr 02/21/23 11:51: POC Glucose 204 H 02/21/23 17:45: POC Glucose 161 H 02/21/23 21:08: POC Glucose 199 H 02/22/23 03:15: POC Glucose 158 H 02/22/23 06:25: Sodium 143, Potassium 4.7, Chloride 115 H, Carbon Dioxide 24.0, Anion Gap 4 L, BUN 7, Creatinine 0.65, Estim Creat Clear Calc 45.85, Est GFR (MDRD) Af Amer 115, Est GFR (MDRD) Non-Af 95, BUN/Creatinine Ratio 10.7, Glucose 104, Calcium 8.4 L 02/22/23 07:50: POC Glucose 105 Radiography Diagnostic Testing: Radiology Impression Brain MRI 02/19/23 17:40 IMPRESSION: Negative MRI brain without intravenous contrast. Electronically Signed: Baldo Millan MD at 11:25 EDT , Echocardiogram 02/19/23 17:41 Interpretation Summary Normal LV size. Left ventricular systolic function is normal. The estimated ejection fraction is 70 %. Bubble contrast study negative for right to left interatrial shunt. Bioprosthetic aortic valve. Mean aortic valve gradient 18 mmHg. Ordering Physician: Yahir Gamble Referring Physician: Nilson Jeffrey Performed By: Helen Francois, CHUYITA, RVT Rhythm Strip Rhythm Strip: Sinus Rhythm Rate: 75 Ectopy: None Physical Exam Const alert, oriented x3, no apparent distress and well nourished Constitutional Narrative: Upper middle-aged, white female, sitting up in a chair at the bedside, watching television appears comfortable and nontoxic however patient is complaining of back pain and asking for pain medication, patient appears much older than stated age HEENT head/scalp atraumatic and moist oral mucous membranes Head and Scalp: normocephalic Resp normal respiratory effort, no retractions, no use of accessory muscles and No clear to auscultation bilaterally Resp Narrative: Diminished but clear Auscultation: Negative for rales, rhonchi or wheezes Cardio regular rate, regular rhythm, S1 normal heart sound, S2 normal heart sound, no rub, no gallops and no clicks Cardio Narrative: 2 out of 6 systolic murmur GI normal to inspection, nondistended, normoactive bowel sounds and soft to palpation Extremity no clubbing, cyanosis or edema Neuro oriented x3, CN's II-XII intact bilaterally, moves all extremities and no focal motor deficits Neuro Narrative: Neurological deficits have seemingly resolved Sensorium / Orientation: oriented to person, oriented to place and oriented to time Speech: speech normal Psych affect normal Psych Narrative: Interacts normally, eye contact is good Assessment & Plan Assessment/Plan (1) Acute ischemic stroke: (2) Diabetes mellitus type 2, uncontrolled: QUALIFIERS: Glycemic state: with hyperglycemia Qualified Code(s): E11.65 - Type 2 diabetes mellitus with hyperglycemia (3) Headache: (4) Heart murmur: PLAN: Plan Acute stroke -Acute stroke has been ruled out with a negative MRI and based on the time frame she complained of symptoms she should have had changes on MRI despite tenecteplase use -Tenecteplase given 02/19/2023 approximately 5 PM -Follow-up CT at 24 hours post tenecteplase was unremarkable -Echocardiogram demonstrated EF of 70% with a negative bubble study and a stable bioprosthetic aortic valve with a mean aortic gradient of 18 mmHg -Per discussion with neurology discontinue aspirin and continue Plavix with no further work-up recommended -Continue high intensity dose statin -Needs improved blood sugar control --> A1c 13.7 on admission -PT/OT has evaluated the patient and she is demonstrating some weakness and recommending ongoing therapy services -Has been accepted at [facility] and awaiting pre-CERT -Patient is medically stable for discharge as soon as pre-CERT is obtained Normocytic anemia -Relatively stable -Repeat CBC in a.m. DM-2 uncontrolled -Hemoglobin A1c is 13.8 -Home Medicare zinc is Trulicity weekly, metformin 500 mg daily with dinner -Continue Lantus 20 units at at bedtime--> fasting blood sugar today is 104 -Blood sugar control is much better with additional Lantus dosing -We will refer to endocrinology at discharge -Continue sliding scale -Continue Accu-Cheks -Continue cardiac/carb controlled diet Hypertension -Continue home medication -Continue to monitor blood pressure GERD -Continue Protonix Hyperlipidemia -Lipid appears well controlled -Continue high intensity dose statin with rosuvastatin 40 mg daily CAD/aortic valve disease/cardiac murmur -Status post CABG/bioprosthetic aortic valve replacement 01/25/2020 -Plavix and aspirin initiated -Continue other home medications -Patient with heart murmur on exam and sounds to be aortic with radiation to bilateral carotids and loudest at right upper sternal border -Echocardiogram as noted above with stable aortic valve DVT prophylaxis -Lovenox 30 mg daily CODE STATUS -Full code Charges/Coding Visit Charges Inpatient E&M: 83437 Subs Hosp L2
--- NOTE | 2023-02-22 11:38 | CASEMGMT ---
SW went to patient's room to notify patient that [facility] accepted her. However, patient was sleeping. SW will check back with patient. Carmen WADE
[2023-02-22 12:15] VITALS: BP 132/63; PULSE 68; RESP 16; TEMP 36.4; O2SAT 100
--- NOTE | 2023-02-22 12:33 | CASEMGMT ---
Sw presented to bedside, introduced self to patient. Stephanie informed patient that [facility] accepted her for intermediate, pending insurance approval. Patient expressed understanding, stated that she is on phone with her daughter, and relayed information to her daughter.
[2023-02-22 12:45] LABS: Bedside Glucose 227 mg/dL (74-106)
--- NOTE | 2023-02-22 14:02 | DS.PCM_ITS ---
Providers Date of Admission: 02/19/23 Date of Discharge: 02/22/23 Primary Care Physician: Dr. Nilson Jeffrey, Consultations 02/19/23 16:41 Consult: Machine Lead Burner / Pulmonary Medicine Routine Consulting Provider: Pulmonary Medicine [facility] [place] Reason for Consult: stroke for thrombolytic administration EMERGENT Consult: Yes MD Notified: Yes Date Notified: 02/19/23 Time Notified: 17:46 Method of Notification: Text Comments:: Consult may be done in ED or ICU Reason For Visit: ACUTE STROKE Diagnosis Discharge Diagnosis (1) Diabetes mellitus type 2, uncontrolled: Status: Chronic Code(s): E11.65 - Type 2 diabetes mellitus with hyperglycemia Qualifiers: Glycemic state: with hyperglycemia Qualified Code(s): E11.65 - Type 2 diabetes mellitus with hyperglycemia (2) Headache: Status: Acute Code(s): R51.9 - Headache, unspecified (3) Heart murmur: Status: Acute Code(s): R01.1 - Cardiac murmur, unspecified Medications at Discharge Home Medications nitroglycerin 0.4 mg sublingual tablet 0.4 mg SUBLINGUAL Q5M PRN Chest Pain 09/28/17 metformin 1,000 mg tablet 500 mg PO DINNER diabetes 11/17/18 clopidogrel 75 mg tablet 75 mg PO DAILY anti platelet 10/30/19 furosemide 20 mg tablet 20 mg PO DAILY 02/19/23 lisinopril 5 mg tablet 5 mg PO DAILY 02/19/23 metoprolol tartrate 25 mg tablet 25 mg PO BID 02/19/23 pantoprazole 40 mg tablet,delayed release 40 mg PO DAILY 02/19/23 rosuvastatin 40 mg tablet 40 mg PO DAILY 02/19/23 acetaminophen 325 mg tablet 650 mg PO Q6H PRN PRN Pain 1-10 Or Fever>100.7 #0 tabs 02/22/23 insulin glargine-yfgn 100 unit/mL (3 mL) subcutaneous pen 20 unit (0.2 mL) subcut QHS #0 mL 02/22/23 insulin lispro 100 unit/mL subcutaneous pen (Humalog KwikPen (U-100) Insulin) 1 unit subcut ACHS & 3AM #0 mL 02/22/23 Hospital Course Procedures 2-D Echocardiogram, EKG and - (CT brain/CTA head neck/MRI brain) Summary of Care Provided Minutes Spent on Discharge: 37 Hospital Course: Patient is a 67-year-old white female who presented to the emergency department at [facility] on 02/19/2023 with left-sided weakness. Patient evidently was at the [email or web address] with her daughter and stated she was not feeling well and they needed to check out and leave. While they were at the register finishing their purchase her daughter reported that her mother looked at her and stated she really did not feel well and that her left face was extremely droopy and then she passed out and collapsed to the floor. EMS was called and her blood sugar was found to be in the 250s. CT of her brain was unremarkable, CTA of her head and neck was unremarkable. Stroke team was called and the stroke neurologist evaluated the patient the emergency department and tenecteplase was given. She was admitted to the ICU with ischemic stroke order set following tenecteplase. Repeat imaging at 24 hours was performed with a CT and was unremarkable for any hemorrhagic transformation or infarct. She was started on aspirin and her Plavix was reinitiated. She was maintained on high high intensity dose statin throughout her hospital course. Her blood pressure was stable throughout her hospitalization. Hemoglobin A1c was 13.7 at the time of admission. There is some documentation from the emergency department that her symptoms seem to be somewhat resolved when distracted. Follow-up MRI was performed on 02/21/2023 which was negative for infarct. Neurology evaluated the patient and felt that this was most likely not a stroke. Exam was inconsistent and distractible as well for his exam. They recommended that we discontinue the aspirin and recommended no further work-up. She was maintained on telemetry throughout her hospital course and this was unremarkable. She was seen by [facility] therapy and they recommended ongoing therapy at inpatient rehab. She was excepted by [facility] and pre-CERT was obtained on 02/22/2023. As noted her blood sugars were fairly uncontrolled on presentation. She was on Trulicity prior to admission. This was discontinued at discharge and we did place her on basal insulin 20 units as her blood sugars showed improved control. I am recommending that she follow-up with endocrinology after discharge from her facility. No other medication changes were made at the time of discharge. She was able to be discharged in stable condition on 02/22/2023 to [facility]. I have asked that she follow-up with her primary care physician within the next month as well as endocrinology. Discharge diagnoses: Acute left-sided weakness/sensory changes-resolved -Stroke ruled out Normocytic anemia-stable DM-2 uncontrolled Hypertension GERD Hyperlipidemia CAD History of aortic valve disease status post aortic valve replacement- bioprosthetic Physical Exam Narrative Const alert, oriented x3, no apparent distress and well nourished Constitutional Narrative: Upper middle-aged, white female, sitting up in a chair at the bedside, watching television appears comfortable and nontoxic however patient is complaining of back pain and asking for pain medication, patient appears much older than stated age General Appearance: cooperative, comfortable, well kempt and well developed Orientation / Consciousness: awake, oriented to person, oriented to place and oriented to time Exam Limitations: no limitations HEENT normocephalic, head/scalp atraumatic, hearing grossly normal bilaterally and moist oral mucous membranes HEENT Narrative: Edentulous, Mallampati 1, no thrush Eyes PERRL, EOMs intact bilaterally and conjunctivae normal Eyes Narrative: No scleral icterus Neck no lymphadenopathy, supple, no JVD and no carotid bruits Neck Narrative: Cardiac murmur radiates to bilateral carotids Resp normal respiratory effort, no retractions, no use of accessory muscles and No clear to auscultation bilaterally Resp Narrative: Diminished but clear Auscultation: Negative for rales, rhonchi or wheezes Cardio regular rate, regular rhythm, S1 normal heart sound, S2 normal heart sound, no rub, no gallops and no clicks Cardio Narrative: 2 out of 6 systolic murmur GI normal to inspection, nondistended, normoactive bowel sounds and soft to palpation Extremity no clubbing, cyanosis or edema Skin no rashes or lesions noted, no wounds, skin turgor normal and no jaundice Neuro oriented x3, CN's II-XII intact bilaterally, moves all extremities and no focal motor deficits Neuro Narrative: Neurological deficits have resolved Sensorium / Orientation: oriented to person, oriented to place and oriented to time Coordination / Balance: Negative for liir-lq-rdaq test normal Speech: speech normal Psych affect normal Psych Narrative: Interacts normally, eye contact is good Medical Records Data Medical Nutrition Assessment Dietitian: Malnutrition Criteria Met Start: 02/20/23 10:32 Freq: Status: Active Protocol: Document 02/20/23 10:32 AG (Rec: 02/20/23 10:32 AG [id number]) Nutrition Malnutrition Evidence of Malnutrition Exists Yes Malnutrition (severe): Acute Illness/Injury Evidenced By Suboptimal Energy Intake ( Severe),Weight Loss (Severe) Clinical Problem Acute Disease or Injury Related Malnutrition Etiology severe, acute malnutrition related to inadequate energy intake Signs/Symptoms as evidenced by pt reports of unintentional 8.9#/6.4% wt loss < 1 month; estimated PO intake meeting <50% of estimated energy needs > 5 days Status Active Problem Recommendation Dietitian Recommendations/Changes continue carbohydrate controlled diet; will add cardiac diet- texture/ consistency modifications per CENTRAL SUPPLY NURSE. Continue 120mL glucerna 4x/day given evidence of malnutrition. Will monitor PO intake/wt and liberalize diet as needed. Weight / BMI Weight Weight: 59.5 kg Body Mass Index (BMI) 22.5 ABG / Lab / Microbiology Data Result Diagrams: 02/21/23 05:50 02/22/23 06:25 Laboratory: Laboratory Results - last 24 hr 02/21/23 17:45: POC Glucose 161 H 02/21/23 21:08: POC Glucose 199 H 02/22/23 03:15: POC Glucose 158 H 02/22/23 06:25: Sodium 143, Potassium 4.7, Chloride 115 H, Carbon Dioxide 24.0, Anion Gap 4 L, BUN 7, Creatinine 0.65, Estim Creat Clear Calc 45.85, Est GFR (MDRD) Af Amer 115, Est GFR (MDRD) Non-Af 95, BUN/Creatinine Ratio 10.7, Glucose 104, Calcium 8.4 L 02/22/23 07:50: POC Glucose 105 02/22/23 12:16: POC Glucose 227 H Radiography Diagnostic Testing: Radiology Impression Echocardiogram 02/19/23 17:41 Interpretation Summary Normal LV size. Left ventricular systolic function is normal. The estimated ejection fraction is 70 %. Bubble contrast study negative for right to left interatrial shunt. Bioprosthetic aortic valve. Mean aortic valve gradient 18 mmHg. Ordering Physician: Yahir Gamble Referring Physician: Nilson Jeffrey Performed By: Helen Francois, CHUYITA, RVT D/C Instructions Discharge Diet: Low fat / Low cholesterol and 1800 Calorie Control Diet Meaningful Use Info Meaningful Use Diagnoses (Choose all that apply): None applicable Discharge Plan Admission Admit Date/Time: 02/19/23 17:43 Primary Reason for Your Visit: Syncope/R LE tingling and weakness Attending Provider: Cynthia Dobbins Primary Care Provider: Nilson Jeffrey Consulting Providers: Yahir Gamble ; Richy Perez ; William Nogueira ; Mu Estrada ; Raj Doyle ; Maria Vigil ELECTRON BEAM WELDER SETTER Discharge Orders/Prescriptions Prescriptions: New acetaminophen 325 mg Tablet 650 mg PO Q6H PRN PRN (Reason: Pain 1-10 Or Fever>100.7) Qty: 0 0RF insulin glargine-yfgn 100 unit/mL (3 mL) Insulin Pen 20 unit subcut QHS Qty: 0 0RF insulin lispro [Humalog KwikPen Insulin] 100 unit/mL Insulin Pen 1 unit subcut ACHS & 3AM Qty: 0 0RF Protocol: 4. Sliding Scale Insulin High-Med Dosing Condition: 150-199 mg/dl = 2 units Condition: 200-259 mg/dl = 4 units Condition: 260-324 mg/dl = 6 units Condition: 325-374 mg/dl = 8 units Condition: 375-409 mg/dl = 10 units Condition: 410-449 mg/dl = 11 units Condition: Greater than 449 call physician Protocol Text: - Use for Total Daily Dose of Insulin 56-80 units - Patient who are insulin resistant or septic HIGH MEDIUM DOSING ALGORITHM Continued nitroglycerin 0.4 MG tablet 0.4 mg SUBLINGUAL Q5M PRN (Reason: Chest Pain) metformin 1,000 MG tablet 500 mg PO DINNER Label Comments: take 1 tablet twice daily clopidogrel 75 MG tablet 75 mg PO DAILY Label Comments: will stop 5 days prior pantoprazole 40 mg tablet,delayed release (DR/EC) 40 mg PO DAILY lisinopril 5 mg tablet 5 mg PO DAILY furosemide 20 mg tablet 20 mg PO DAILY rosuvastatin 40 mg tablet 40 mg PO DAILY Label Comments: TAKE 1 TABLET BY MOUTH ONCE DAILY metoprolol tartrate 25 MG tablet 25 mg PO BID Discontinued Trulicity 1.5 mg/0.5 mL pen injector 1.5 mg SUBCUT QWEEK Referrals / Follow Up: [facility] [Group of Physicians] - 03/14/23 12:30 pm (Appointment March 14 at 12:30 with Lupe ) Nilson Jeffrey DO [Primary Care Provider] - Within 1 Month Jamie Mike MD [Med Staff - Courtesy Staff] - Within 1 Month (Call for appt) Disposition Disposition (needs filled in before D/C Order can be placed): Long-Term Facility Charges/Coding Visit Charges Inpatient E&M: 75639 SNF Disch >30 Min
--- NOTE | 2023-02-22 14:08 | TREXTCAR_ITS ---
Diet Diet Order/Speech Therapy: 02/19/23 18:46 Diet: Carbohydrate Controlled Food consistency:: Soft & Bite Sized Liquid Consistency:: Regular/Thin Dietary Modifications:: Cardiac / Heart Healthy Is pt able to select menu?: Yes Diet Comments: Distant Supervision Routine Orders/Code Status O2 Frequency: PRN Keep PO Greater than or Equal to (%): 92 Routine Lab Work: CBC (1 week) and BMP (1 week) Code Status: Full Code Therapies Physical Therapy: Eval and Treat Occupational Therapy: Eval and Treat Problem/Diagnosis (1) Diabetes mellitus type 2, uncontrolled: Status: Chronic Code(s): E11.65 - Type 2 diabetes mellitus with hyperglycemia (2) Headache: Status: Acute Code(s): R51.9 - Headache, unspecified (3) Heart murmur: Status: Acute Code(s): R01.1 - Cardiac murmur, unspecified Allergies/Procedures Done in Hospital Allergies Penicillins Allergy (Verified 02/19/23 15:37) Hives hydrocodone bitartrate [From Vicodin] Adverse Reaction (Verified 02/19/23 15:37) Vomiting ibuprofen Adverse Reaction (Verified 02/19/23 15:37) Vomiting Procedures: 2-D Echocardiogram, EKG and - (CT brain/CTA head and neck/MRI brain) Type of Care/Length of Stay Estimated LOS: Convalescent Care Less Than 30 days Type of Care Needed: Skilled Rehab Potential: Good Prognosis: Good Additional Orders/Day of Discharge Additional Orders: Pt has appt at [facility] on 03/14/23 at 12:30pm w/ Cecilia Day of Discharge: 02/22/23 Dietary and Speech Recommendations Dietitian Recommendations/Changes: continue carbohydrate controlled diet; will add cardiac diet- texture/consistency modifications per HEALTHCARE MANAGEMENT. Continue 120mL glucerna 4x/day given evidence of malnutrition. Will monitor PO intake/wt and liberalize diet as needed. Discharge Plan Admission Admit Date/Time: 02/19/23 17:43 Primary Reason for Your Visit: Syncope/R LE tingling and weakness Attending Provider: Cynthia Dobbins Primary Care Provider: Nilson Jeffrey Consulting Providers: Yahir Gamble ; Richy Perez ; William Nogueira ; Mu Estrada ; Raj Doyle ; Maria Vigil QUALITY ASSURANCE INTERN Discharge Orders/Prescriptions Prescriptions: New acetaminophen 325 mg Tablet 650 mg PO Q6H PRN PRN (Reason: Pain 1-10 Or Fever>100.7) Qty: 0 0RF insulin glargine-yfgn 100 unit/mL (3 mL) Insulin Pen 20 unit subcut QHS Qty: 0 0RF insulin lispro [Humalog KwikPen Insulin] 100 unit/mL Insulin Pen 1 unit subcut ACHS & 3AM Qty: 0 0RF Protocol: 4. Sliding Scale Insulin High-Med Dosing Condition: 150-199 mg/dl = 2 units Condition: 200-259 mg/dl = 4 units Condition: 260-324 mg/dl = 6 units Condition: 325-374 mg/dl = 8 units Condition: 375-409 mg/dl = 10 units Condition: 410-449 mg/dl = 11 units Condition: Greater than 449 call physician Protocol Text: - Use for Total Daily Dose of Insulin 56-80 units - Patient who are insulin resistant or septic HIGH MEDIUM DOSING ALGORITHM Continued nitroglycerin 0.4 MG tablet 0.4 mg SUBLINGUAL Q5M PRN (Reason: Chest Pain) metformin 1,000 MG tablet 500 mg PO DINNER Label Comments: take 1 tablet twice daily clopidogrel 75 MG tablet 75 mg PO DAILY Label Comments: will stop 5 days prior pantoprazole 40 mg tablet,delayed release (DR/EC) 40 mg PO DAILY lisinopril 5 mg tablet 5 mg PO DAILY furosemide 20 mg tablet 20 mg PO DAILY rosuvastatin 40 mg tablet 40 mg PO DAILY Label Comments: TAKE 1 TABLET BY MOUTH ONCE DAILY metoprolol tartrate 25 MG tablet 25 mg PO BID Discontinued Trulicity 1.5 mg/0.5 mL pen injector 1.5 mg SUBCUT QWEEK Referrals / Follow Up: [facility] [Group of Physicians] - 03/14/23 12:30 pm (Appointment March 14 at 12:30 with [facility] ) Nilson Jeffrey DO [Primary Care Provider] - Within 1 Month Disposition Disposition (needs filled in before D/C Order can be placed): [facility] (1) Diabetes mellitus type 2, uncontrolled Qualifiers: Glycemic state: with hyperglycemia Qualified Code(s): E11.65 - Type 2 diabetes mellitus with hyperglycemia
--- NOTE | 2023-02-22 14:19 | PHA.DC.MR ---
Pharmacy Service has performed discharge medication reconciliation for this patient. The patient's discharge medication list was reviewed for discrepancies and discrepancies were resolved. Home Medications nitroglycerin 0.4 mg sublingual tablet 0.4 mg SUBLINGUAL Q5M PRN Chest Pain 09/28/17 metformin 1,000 mg tablet 500 mg PO DINNER diabetes 11/17/18 clopidogrel 75 mg tablet 75 mg PO DAILY anti platelet 10/30/19 furosemide 20 mg tablet 20 mg PO DAILY 02/19/23 lisinopril 5 mg tablet 5 mg PO DAILY 02/19/23 metoprolol tartrate 25 mg tablet 25 mg PO BID 02/19/23 pantoprazole 40 mg tablet,delayed release 40 mg PO DAILY 02/19/23 rosuvastatin 40 mg tablet 40 mg PO DAILY 02/19/23 acetaminophen 325 mg tablet 650 mg PO Q6H PRN PRN Pain 1-10 Or Fever>100.7 #0 tabs 02/22/23 insulin glargine-yfgn 100 unit/mL (3 mL) subcutaneous pen 20 unit (0.2 mL) subcut QHS #0 mL 02/22/23 insulin lispro 100 unit/mL subcutaneous pen (Humalog KwikPen (U-100) Insulin) 1 unit subcut ACHS & 3AM #0 mL 02/22/23
--- NOTE | 2023-02-22 14:25 | CASEMGMT ---
SW met with patient's daughter's per their request. They were asking why patient has to go to a shelter. SW explained therapy saw patient yesterday. Patient told the SW yesterday that she did terrible with therapy and feels she needs to go somewhere. SW gave the patient a list and she told SW her 3 choices. Patient's daughter's asked if patient wanted to go and SW confirmed this. SW let them know patient does not have to go if she does not want to. Patient's daughters were going back to the room to talk with patient and will let SW know. Carmen Franco UNDERLINER MAURO
--- NOTE | 2023-02-22 15:00 | CASEMGMT ---
SW went back to patient's room to see if she decided if she is going to [facility] or if she is going home. Patient said she will go to [facility]. Patient asked how long she will be at [facility]. SW told her it depends on how she does, but probably a week or so. NIKHIL completed a 7000 in HENS. Plan: d/c to [facility] under skilled level of care on a convalescent stay. Physicians transported via wheelchair at 430p. Carmen WADE
--- NOTE | 2023-02-22 16:11 | NURSING ---
Addendum entered by Nguyen See 02/22/23 17:35: Notified [facility] that pt is no longer coming. Original Note: This RN into pt room to remove IVs in order for pt to go to [facility]. Pt resting in bed and daughter is at bedside. Pt verbalized to this RN that my girls don't want me to go to the intermediate. This RN educated on why it was recommended for pt to go to [facility] for therapies d/t unsteady gate and risk of falls and that it is her decision not her daughters if she wants to go to [facility]. Pt verbalized understanding. This RN asked pt if there was someone in the home that was going to be able to help her 2/7 if she needed and would be there if she were to fall. Daughter stated that she 'lives with her and takes care of her. Daughter also stated that she googled [facility] and didn't think her mom should go because they didn't know if they allowed smoking and she could just do therapies elsewhere. This RN asked pt what her decsion was regarding going to [facility]. Pt clearly stated I want to go home. Dr Dobbins notified of this; and informed this RN to d/c pt home, pt to follow up with PCP to get script for therapies. Pt discharged to home with daughter after all discharge instructions reviewed with verbalization of understanding by daughter and pt.
--- NOTE | 2023-02-22 16:22 | PCM.HOSP.N ---
Hospitalist Note 30 min prior to her ride coming to take her to [facility], the pt decided she wanted to go home. Discussion was had with the pt by nursing on why she should still go to SNF but she was adamant on going home. She will go home with the same medications and outpt f/u is recommend per discharge paper work.
== END 2023-02-22 16:39 | disposition home or self-care (01) | DRG 556 ==
LOC: ED 16:51 → ICU 17:53 → PCU 02-20 18:44
PROVIDERS: Admitting Provider Internal Medicine; Emergency Provider Emergency Medicine; PCP Student in an Organized Health Care Education/Training Program; Visit Provider Internal Medicine
DX: M62.81 Muscle weakness (generalized) (principal); D63.1 Anemia in chronic kidney disease; E11.22 Type 2 diabetes mellitus with diabetic chronic kidney disease; E11.65 Type 2 diabetes mellitus with hyperglycemia; D53.9 Nutritional anemia, unspecified; E78.5 Hyperlipidemia, unspecified; N18.30 Chronic kidney disease, stage 3 unspecified; J44.9 Chronic obstructive pulmonary disease, unspecified; Z79.4 Long term (current) use of insulin; I12.9 Hypertensive chronic kidney disease with stage 1 through stage 4 chronic kidney disease, or unspecified chronic kidney disease; I25.10 Atherosclerotic heart disease of native coronary artery without angina pectoris; F17.210 Nicotine dependence, cigarettes, uncomplicated; K21.9 Gastro-esophageal reflux disease without esophagitis; I25.2 Old myocardial infarction; M54.50 Low back pain, unspecified; Z95.3 Presence of xenogenic heart valve; R55 Syncope and collapse; R29.810 Facial weakness; R20.0 Anesthesia of skin; Z68.22 Body mass index [BMI] 22.0-22.9, adult; Z95.1 Presence of aortocoronary bypass graft; Z95.5 Presence of coronary angioplasty implant and graft; Z91.148 Patient's other noncompliance with medication regimen for other reason; Z79.02 Long term (current) use of antithrombotics/antiplatelets; Z79.84 Long term (current) use of oral hypoglycemic drugs; Z79.899 Other long term (current) drug therapy; Z86.73 Personal history of transient ischemic attack (TIA), and cerebral infarction without residual deficits
CPT/HCPCS: 36415; 51702; 70450; 70496; 70498; 70551; 71045; 73590; 80048; 80053; 80061; 82962; 83036; 83735; 84100; 84443; 84484; 85025; 85610; 85730; 87811; 92526; 93005; 93306; 94762; 97110; 97162; 97166; 97530; 97535; 99285; 99406; J3101; Q9967; A4216; J2405; J3490

== ENCOUNTER 2024-11-28 12:55 | Emergency (ER) | payer MEDICARE, SELFPAY ==
[2017-03-16 08:30] VITALS: BMI 29.2
[2024-11-28 12:56] VITALS: BP 99/68; PULSE 98; RESP 16; TEMP 36.3; O2SAT 95; BMI 20.7
--- NOTE | 2024-11-28 14:31 | ED.VIS.LOWEX ---
HPI History of Present Illness HPI Narrative: Patient presents with left knee pain that has been getting worse over the past 3 days. Patient describes her as sharp. Patient states she saw her primary care physician who diagnosed him with a Trinidad's cyst. Patient denies any trauma or injury. Patient states the pain is worse with movement and better with rest. Patient denies any paresthesias or weakness. Patient states the pain radiates to her anterior lower leg. Patient denies any calf tenderness or swelling. Chief Complaint: Lower Extremity Injury Informant: patient Onset/Context/Timing Onset: Days (3) Context: Gradual Onset Timing: Continuous Quality of Pain: Sharp Location: Left knee Worsened by: Movement Relieved by: Rest Associated Symptoms Associated Symptoms: Negative for Parasthesia, Weakness or Loss of Funtion PFSH PFS Medical History Heart murmur CKD (chronic kidney disease) stage 3, GFR 30-59 ml/min Cancer Diabetes GERD (gastroesophageal reflux disease) Former smoker Sleep apnea Pulmonary embolism COPD (chronic obstructive pulmonary disease) Myocardial infarct Hypertension Nonrheumatic aortic (valve) insufficiency Biceps tendonitis on left Anxiety and depression Fe deficiency anemia Nicotine dependence Schizophrenia Bipolar disorder Type 2 diabetes mellitus Atherosclerotic heart disease of [place] coronary artery without angina pectoris Essential (primary) hypertension Hyperlipidemia Constipation Dysphagia Left-sided weakness TIA (transient ischemic attack) (12/2018) CVA (cerebral vascular accident) Dysarthria Home Medications ?Medication ?Instructions ?Recorded ?Last Taken ?Type nitroglycerin 0.4 mg sublingual 0.4 mg SUBLINGUAL Q5M PRN Chest 09/28/17 03/01/21 History tablet Pain metformin 1,000 mg tablet 500 mg PO DINNER diabetes 11/17/18 05/28/21 09:00 History clopidogrel 75 mg tablet 75 mg PO DAILY anti platelet 10/30/19 05/28/21 09:00 History furosemide 20 mg tablet 20 mg PO DAILY 02/19/23 Unknown History lisinopril 5 mg tablet 5 mg PO DAILY 02/19/23 Unknown History metoprolol tartrate 25 mg tablet 25 mg PO BID 02/19/23 Unknown History pantoprazole 40 mg tablet,delayed 40 mg PO DAILY 02/19/23 Unknown History release rosuvastatin 40 mg tablet 40 mg PO DAILY 02/19/23 Unknown History acetaminophen 325 mg tablet 650 mg (2 x 325 mg) PO Q6H PRN PRN 02/22/23 Unknown Rx Pain 1-10 Or Fever>100.7 #0 tabs insulin glargine-yfgn 100 unit/mL 20 unit (0.2 mL) subcut QHS #0 mL 02/22/23 Unknown Rx (3 mL) subcutaneous pen insulin lispro 100 unit/mL 1 unit subcut ACHS & 3AM #0 mL 02/22/23 Unknown Rx subcutaneous pen (Humalog KwikPen (U-100) Insulin) tramadol 50 mg tablet 50 mg PO Q4H PRN PRN Pain 3 days 11/28/24 Unknown Rx #20 tabs Allergy/AdvReac Type Severity Reaction Status Date / Time Penicillins Allergy Hives Verified 11/28/24 12:58 hydrocodone bitartrate (From AdvReac Vomiting Verified 11/28/24 12:58 Vicodin) ibuprofen AdvReac Vomiting Verified 11/28/24 12:58 Family History Father Heart disease Hypertension Diabetes Hyperlipidemia Mother Diabetes Heart disease Hypertension Hyperlipidemia Brother Heart disease Age 46 Sister Diabetes Cancer Hyperlipidemia Surgical History History of coronary artery stent placement History of shoulder surgery (01/2021) History of aortic valve replacement with bioprosthetic valve (01/25/20) History of left heart catheterization (09/19/17) History of coronary artery stent placement (03/15/17) H/O coronary artery bypass surgery (01/25/20) H/O: hysterectomy Hx of cholecystectomy Social History Smoking Status: Current every day smoker tobacco type: cigarettes alcohol intake: never substance use type: does not use ROS ROS ED Constitutional Constitutional ED: Denies chills or fever(s) Eyes Eyes: Denies blurry vision or change in vision ENT ENT ED: Denies rhinorrhea or sore throat Cardiovascular Cardiovascular: Denies chest pain or palpitations Respiratory/Chest Respiratory/Chest: Denies cough or dyspnea Gastrointestinal Gastrointestinal: Denies nausea or vomiting Genitourinary Genitourinary ED: Denies dysuria or hematuria Musculoskeletal Musculoskeletal: Denies back pain or neck pain Integumentary Denies abscess or rash Neurologic Neurologic: Denies headache(s) or weakness Allergic/Immunologic Allergic/Immunologic ED: Denies mouth swelling or urticaria EXAM Physical Exam Const Vital Signs: 11/28/24 12:56 Temperature 97.4 F L Temperature Source Temporal Pulse Rate 98 Respiratory Rate 16 Blood Pressure 99/68 Blood Pressure Mean 78 Pulse Ox 95 Oxygen Delivery Method Room Air Positive well nourished and well developed General Appearance ED: well developed and NAD HEENT Reports moist mucous membranes normocephalic Neck full ROM and supple Extremity Extremity Narrative: There is tenderness over the posterior aspect of the left knee. There is some mild edema. There are no bony crepitance or step-off. There is no deformity noted. Range of motion was limited in all motions of the left knee secondary to pain. There is no calf tenderness. Sensation is intact to light touch bilateral in all extremities. Strength is 5/5 bilateral lower extremities. Extensor mechanism is intact. Neuro oriented x3, CN's II-XII intact bilaterally, moves all extremities and no sensory deficits noted Sensorium / Orientation: alert Motor Exam: strength 5/5 throughout Psych mental status grossly normal MDM MDM MDM Narrative Medical decision making narrative: Patient was advised that her pain is likely from her Trinidad's cyst. Since there was no trauma or injury, I do not feel x-rays are necessary at this time. Patient was given a prescription for a short course of tramadol. Patient was instructed to ice and elevate the left knee. Patient was instructed to follow-up with her primary care physician in 5 to 7 days. Patient understood and was agreeable with the plan. All questions were answered. Discharge Plan Triage Chief Complaint: Lower Extremity Injury ED Provider: Parker Moulton Dx/Rx/DC Orders Clinical Impression: Arthralgia of knee, left, Trinidad's cyst Instructions: ED Trinidad's Cyst, ED Knee Pain of Uncertain Cause Prescriptions: New tramadol 50 mg tablet 50 mg PO Q4H PRN PRN (Reason: Pain) 3 Days Qty: 20 0RF No Action nitroglycerin 0.4 MG tablet 0.4 mg SUBLINGUAL Q5M PRN (Reason: Chest Pain) metformin 1,000 MG tablet 500 mg PO DINNER Patient Comments: take 1 tablet twice daily clopidogrel 75 MG tablet 75 mg PO DAILY Patient Comments: will stop 5 days prior pantoprazole 40 mg tablet,delayed release (DR/EC) 40 mg PO DAILY lisinopril 5 mg tablet 5 mg PO DAILY furosemide 20 mg tablet 20 mg PO DAILY rosuvastatin 40 mg tablet 40 mg PO DAILY Patient Comments: TAKE 1 TABLET BY MOUTH ONCE DAILY metoprolol tartrate 25 MG tablet 25 mg PO BID acetaminophen 325 mg Tablet 650 mg PO Q6H PRN PRN (Reason: Pain 1-10 Or Fever>100.7) Qty: 0 0RF insulin glargine-yfgn 100 unit/mL (3 mL) Insulin Pen 20 unit subcut QHS Qty: 0 0RF insulin lispro [Humalog KwikPen Insulin] 100 unit/mL Insulin Pen 1 unit subcut ACHS & 3AM Qty: 0 0RF Protocol: 4. Sliding Scale Insulin High-Med Dosing Condition: 150-199 mg/dl = 2 units Condition: 200-259 mg/dl = 4 units Condition: 260-324 mg/dl = 6 units Condition: 325-374 mg/dl = 8 units Condition: 375-409 mg/dl = 10 units Condition: 410-449 mg/dl = 11 units Condition: Greater than 449 call physician Protocol Text: - Use for Total Daily Dose of Insulin 56-80 units - Patient who are insulin resistant or septic HIGH MEDIUM DOSING ALGORITHM Primary Care Provider: Alysha Nunez Referrals: Alysha Nunez MD [Primary Care Provider] - 5-7 Days Print Language: [place] Disposition Disposition: Home, Self Care
[2024-11-28 15:23] VITALS: BP 146/86; PULSE 76; RESP 18; TEMP 37.1; O2SAT 98
== END 2024-11-28 15:25 | disposition home or self-care (01) ==
PROVIDERS: Emergency Provider Emergency Medicine; PCP Student in an Organized Health Care Education/Training Program; Visit Provider Emergency Medicine
DX: M25.562 Pain in left knee (principal); J44.9 Chronic obstructive pulmonary disease, unspecified; E11.22 Type 2 diabetes mellitus with diabetic chronic kidney disease; Z79.4 Long term (current) use of insulin; N18.30 Chronic kidney disease, stage 3 unspecified; M71.20 Synovial cyst of popliteal space [Baker], unspecified knee; I25.10 Atherosclerotic heart disease of native coronary artery without angina pectoris; E78.5 Hyperlipidemia, unspecified; I12.9 Hypertensive chronic kidney disease with stage 1 through stage 4 chronic kidney disease, or unspecified chronic kidney disease; I25.2 Old myocardial infarction; Z86.73 Personal history of transient ischemic attack (TIA), and cerebral infarction without residual deficits; Z79.84 Long term (current) use of oral hypoglycemic drugs; Z79.899 Other long term (current) drug therapy; Z79.02 Long term (current) use of antithrombotics/antiplatelets; K21.9 Gastro-esophageal reflux disease without esophagitis; Z95.5 Presence of coronary angioplasty implant and graft; Z95.3 Presence of xenogenic heart valve; Z90.710 Acquired absence of both cervix and uterus; Z90.49 Acquired absence of other specified parts of digestive tract; F17.210 Nicotine dependence, cigarettes, uncomplicated
CPT/HCPCS: 99282